=== PATIENT | female | born 1955 | race American Indian/Alaskan Native ===

== ENCOUNTER → 2019-11-28 | Outpatient (CLI) | payer MEDICARE, OTHER ==
--- NOTE | 2019-12-01 09:51 | MM ---
Reason for exam: screening (asymptomatic). Last mammogram was performed 1 year and 3 months ago. History: Patient is postmenopausal and is nulliparous. Physical Findings: A clinical breast exam by your physician is recommended on an annual basis and results should be correlated with mammographic findings. MG 3D Screening Mammo W/Cad Bilateral CC and MLO view(s) were taken. Prior study comparison: September 04, 2018, mammogram. August 17, 2017, mammogram. There are scattered fibroglandular densities. No significant changes when compared with prior studies. ASSESSMENT: Benign, BI-RAD 2 RECOMMENDATION: Routine screening mammogram of both breasts in 1 year.
== END | disposition home or self-care (01) ==
LOC: RADMAMWWP 13:38
PROVIDERS: ATTEND Family Medicine
DX: Z12.31 Encounter for screening mammogram for malignant neoplasm of breast (principal)
CPT/HCPCS: 77063; 77067

== ENCOUNTER → 2020-03-03 | Outpatient (CLI) | payer MEDICARE, OTHER ==
--- NOTE | 2020-03-03 14:41 | BD ---
EXAMINATION TYPE: Axial Bone Density DATE OF EXAM: 03/03/2020 COMPARISON: NONE CLINICAL HISTORY: 64-year-old female postmenopausal screening and symptoms Nuclear Medicine Study in the last 2 weeks: NO Barium Study in the last week: NO : NO Height: 5 FT 2 1/2 IN Weight: 184 FRAX RISK QUESTIONS: Alcohol (3 or more units per day): NO Family History (Parent hip fracture): NO Glucocorticoids (More than 3mos): NO (Ex: prednisone, prednisolone, methylprednisolone, dexamethasone, and hydrocortisone). History of Fracture in Adulthood: NO Secondary Osteoporosis: 1. Type 1 Diabetes: NO 2. Hyperthyroidism: NO 3. Menopause before 45: NO 4. Malnutrition: NO 5. Chronic liver disease: NO Rheumatoid Arthritis: NO Current Tobacco Use: YES RISK FACTORS HISTORY OF: Surgery to Spine/Hip(right/left)/Wrist (right/left): LUMBAR SURG When: 20 YEARS AGO Family History of Osteoporosis: NO Active: NO Diet low in dairy products/other sources of calcium: NO Postmenopausal woman: PART 1993 Lost more than 2 inches in height since high school: YES Poor Health: FAIR MEDICATIONS: Additional Medications: INSULIN, METFORMIN, GABAPENTIN, LOSARTIN, LIPITOR, ZYRTEC, Additional History: EXAM MEASUREMENTS: Bone mineral density about the R hip (g/cm2): 0.905 Bone mineral density about the L hip (g/cm2): 0.905 T Score values are as follows: -----R Neck: -1.0 -----L Neck: -1.0 -----R Total: -1.0 -----L Total: -0.1 BASELINE Bone mineral density about the L Wrist (g/cm2): 0.624 T Score values are as follows: -----Dist. R+U: -1.2 -----Prox. R+U: -0.5 -----Radius total: -0.8 BASELINE IMPRESSION: Normal (Values between +1 and -1 indicate normal bone mass) as measured in the bilateral hips and lef t forearm. However, note that measurements border on osteopenia at the hips. Consider repeating this study in 5 years or sooner if there is some new clinical indication. NOTE: T-SCORE=SD OF THE YOUNG ADULT MEAN.
== END | disposition home or self-care (01) ==
LOC: RADBDWWP 12:35
PROVIDERS: ATTEND Family Medicine
DX: M85.89 Other specified disorders of bone density and structure, multiple sites (principal)
CPT/HCPCS: 77080

== ENCOUNTER 2020-05-09 21:33 | Emergency (ER) | payer MEDICARE, OTHER ==
[2020-05-09 21:48] VITALS: BP 167/77; PULSE 91; RESP 20; TEMP 99.1
[2020-05-09] MEDS ORDERED: MORPHINE SULFATE 4 MG/ML SYRINGE IM STA (22:22)
--- NOTE | 2020-05-09 22:24 | ED ---
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 Patient presents to the emergency department this evening via private vehicle for evaluation of right leg pain. Patient reports she has pain that begins in her buttock and radiates down the right leg. She states it makes it feel like she still has her foot and she is having severe pain. She denies any back pain. Denies any recent falls or injuries. She is primarily wheelchair bound. Patient is on [place] twice daily a nd 800 mg of gabapentin 3 times daily for her chronic pain but reports despite taking the she has persistent pain is been unable to sleep. - Related Data Previous Rx's Medication Instructions Recorded HYDROcodone/APAP 5-325MG [[place] 1 tab PO Q6HR PRN 3 Days #12 tab 05/09/20 5-325] Ibuprofen [Motrin] 600 mg PO Q8H #30 tab 05/09/20 Allergies Allergy/AdvReac Type Severity Reaction Status Date / Time No Known Allergies Allergy Verified 05/09/20 21:48 Review of Systems ROS Statement: Those systems with pertinent positive or pertinent negative responses have been documented in the HPI. ROS Other: All systems not noted in ROS Statement are negative. Past Medical History Past Medical History: Diabetes Mellitus, Hypertension History of Any Multi-Drug Resistant Organisms: None Reported Past Surgical History: Back Surgery, Orthopedic Surgery Additional Past Surgical History / Comment(s): rt below knee amp Past Psychological History: Depression Smoking Status: Current every day smoker Past Alcohol Use History: None Reported Past Drug Use History: None Reported General Exam - General Exam Comments Initial Comments: Physical Exam GENERAL: Patient is well-developed and well-nourished. Patient is nontoxic and well-hydrated and is in no distress. HENT: Normocephalic, Atraumatic. EYES: PERRL, EOMI PULMONARY: Unlabored respirations. CARDIOVASCULAR: RRR Warm and well perfused extremities ABDOMEN: Non-distended SKIN: No rashes or bruising : Deferred NEUROLOGIC: Alert and oriented Normal speech MUSCULOSKELETAL: Well-healed right BKA Tenderness to palpation of the piraformis muscle on the right buttocks PSYCHIATRIC: No SI/HI Limitations: no limitations Course Vital Signs 05/09/20 21:44 Temperature 99.1 F Pulse Rate 91 Respiratory 20 Rate Blood Pressure 167/77 O2 Sat by Pulse 100 Oximetry Medical Decision Making - Medical Decision Making The patient was seen and evaluated, history is obtained from the patient History and physical exam are concerning for piriformis syndrome on the right with reproducible pain to palpation in the right buttocks and sciatic leg pain. Patient is arty on max dose of gabapentin, I will prescribe additional [place] so she can take 4 times daily, recommended anti-inflammatories, due to her poorly controlled diabetes I don't feel she has a candidate for steroids. Recommended follow-up with primary care physician for referral to physical therapy. Disposition Clinical Impression: Sciatica of right side without back pain Disposition: HOME SELF-CARE Condition: Stable Instructions (If sedation given, give patient instructions): Sciatica (ED), Piriformis Syndrome (ED) Prescriptions: Ibuprofen [Motrin] 600 mg PO Q8H #30 tab HYDROcodone/APAP 5-325MG [[place] 5-325] 1 tab PO Q6HR PRN 3 Days #12 tab PRN Reason: Pain Is patient prescribed a controlled substance at d/c from ED?: No Referrals: Yomi Kennedy MD [Primary Care Provider] - 1-2 days
== END 2020-05-09 22:49 | disposition home or self-care (01) ==
LOC: EC 21:33
DX: M54.31 Sciatica, right side (principal); G89.29 Other chronic pain; L02.33 Carbuncle of buttock; E10.65 Type 1 diabetes mellitus with hyperglycemia; F17.200 Nicotine dependence, unspecified, uncomplicated; Z99.3 Dependence on wheelchair; Z89.511 Acquired absence of right leg below knee; Z79.891 Long term (current) use of opiate analgesic
CPT/HCPCS: 99283; 96372; J2270

== ENCOUNTER 2020-06-15 21:50 | Emergency (ER) | payer MEDICARE, OTHER ==
[2020-06-15 21:56] VITALS: TEMP 97.6
[2020-06-15 22:10] LABS: Glucose,Whole Blood 225 mg/dL (75-99)
[2020-06-15 22:33] LABS: Basophils # (A) 0.1 k/uL (0-0.2); Basophils % (A) 1 %; Eosinophils # (A) 0.7 k/uL (0-0.7); Eosinophils % (A) 7 %; HCT 32.7 % (34.0-46.0); Lymphocytes % (A) 19 %; MCH 30.1 pg (25.0-35.0); MCHC 33.6 g/dL (31.0-37.0); MCV 89.5 fL (80.0-100.0); Mean Platelet Volume 6.2; Monocytes # (A) 0.6 k/uL (0-1.0); Monocytes % (A) 6 %; Neutrophils % (A) 67 %; Platelet Count 235 k/uL (150-450); RBC 3.66 m/uL (3.80-5.40); RDW 14.5 % (11.5-15.5); WBC 10.4 k/uL (3.8-10.6)
[2020-06-15 22:41] LABS: Albumin 4.2 g/dL (3.5-5.0); Calcium 8.5 mg/dL (8.4-10.2); Potassium 4.3 mmol/L (3.5-5.1); Total Bilirubin 0.4 mg/dL (0.2-1.3); Total Protein 7.3 g/dL (6.3-8.2)
--- NOTE | 2020-06-15 23:07 | ED ---
General Adult HPI - General Chief complaint: Skin/Abscess/Foreign Body Stated complaint: Weakness,Body Itching Time Seen by Provider: 06/15/20 22:14 Source: patient, family Mode of arrival: wheelchair Limitations: no limitations - History of Present Illness Initial comments: Akosua is a 65-year-old female with a history of diabetes, right above-knee amp utation, patient presents the ER today for evaluation of diffuse pruritus and fatigue. Patient reports that for the past couple weeks she says been itchy everywhere from her scalp down. She denies any new soaps, lotions, shampoos, laundry detergent or fabric softener. She did see her primary care about this and was prescribed Zyrtec with minimal improvement. also expresses concern that the patient's tired all the time reports that she is taking multiple naps throughout the day. Denies any recent illness, fevers chills nausea or vomiting. - Related Data Previous Rx's Medication Instructions Recorded HYDROcodone/APAP 5-325MG [[place] 1 tab PO Q6HR PRN 3 Days #12 tab 05/09/20 5-325] Ibuprofen [Motrin] 600 mg PO Q8H #30 tab 05/09/20 Allergies Allergy/AdvReac Type Severity Reaction Status Date / Time No Known Allergies Allergy Verified 06/15/20 21:57 Review of Systems ROS Statement: Those systems with pertinent positive or pertinent negative responses have been documented in the HPI. ROS Other: All systems not noted in ROS Statement are negative. Past Medical History Past Medical History: Diabetes Mellitus, Hypertension History of Any Multi-Drug Resistant Organisms: None Reported Past Surgical History: Back Surgery, Orthopedic Surgery Additional Past Surgical History / Comment(s): rt below knee amp Past Psychological History: Depression Smoking Status: Current every day smoker Past Alcohol Use History: None Reported Past Drug Use History: None Reported General Exam - General Exam Comments Initial Comments: Physical Exam GENERAL: Patient is well-developed and well-nourished. Patient is nontoxic and well- hydrated and is in no distress. HENT: Normocephalic, Atraumatic. EYES: PERRL, EOMI PULMONARY: Unlabored respirations. No audible rales rhonchi or wheezing was noted. CARDIOVASCULAR: There is a regular rate and rhythm without any murmurs gallops or rubs. ABDOMEN: Soft and nontender with normal bowel sounds. SKIN: Dry skin with excoriations noted on the arms and flanks There is no lesions in the webs of the hands no linear lesions to indicate scabies, no urticaria or hives Itching includes the scalp, doesn't appear to be in the distribution related to her clothing : Deferred NEUROLOGIC: Patient is alert and oriented x3. Moving all extremities spontaneously MUSCULOSKELETAL: Right above-knee amputation Normal extremities with adequate strength and full range of motion. No lower extremity swelling or edema. No calf tenderness. PSYCHIATRIC: Normal psychiatric evaluation. Limitations: no limitations Course Vital Signs 06/15/20 21:53 Temperature 97.6 F Pulse Rate 92 Respiratory 20 Rate Blood Pressure 156/78 O2 Sat by Pulse 97 Oximetry Medical Decision Making - Medical Decision Making The patient was seen and evaluated history is obtained from the patient and at bedside Patient has diffuse dry skin, no signs of scabies, no urticaria or hives Labs were obtained and resulted with significantly elevated TSH, I discussed with the patient and at bedside hypothyroidism can result in dry skin and pruritus, I recommended they follow with Dr. Kennedy first thing tomorrow morning to discuss possible treatment for hypothyroidism. Patient and at bedside are agreeable and understand this plan. - Lab Data Result diagrams: 06/15/20 22:21 06/15/20 22:21 Lab Results 06/15/20 06/15/20 06/15/20 Range/Units 22:07 22:21 22:21 WBC 10.4 (3.8-10.6) k/uL RBC 3.66 L (3.80-5.40) m/uL Hgb 11.0 L (11.4-16.0) gm/dL Hct 32.7 L (34.0-46.0) % MCV 89.5 (80.0-100.0) fL MCH 30.1 (25.0-35.0) pg MCHC 33.6 (31.0-37.0) g/dL RDW 14.5 (11.5-15.5) % Plt Count 235 (150-450) k/uL Neutrophils % 67 % Lymphocytes % 19 % Monocytes % 6 % Eosinophils % 7 % Basophils % 1 % Neutrophils # 7.0 (1.3-7.7) k/uL Lymphocytes # 2.0 (1.0-4.8) k/uL Monocytes # 0.6 (0-1.0) k/uL Eosinophils # 0.7 (0-0.7) k/uL Basophils # 0.1 (0-0.2) k/uL Sodium (137-145) mmol/L Potassium (3.5-5.1) mmol/L Chloride (98-107) mmol/L Carbon Dioxide (22-30) mmol/L Anion Gap mmol/L BUN (7-17) mg/dL Creatinine (0.52-1.04) mg/dL Est GFR (CKD-EPI)AfAm (>60 ml/min/1.73 sqM) Est GFR (CKD-EPI)NonAf (>60 ml/min/1.73 sqM) Glucose (74-99) mg/dL POC Glucose (mg/dL) 225 H (75-99) mg/dL POC Glu Veterinary Poultry Inspector ID Kirstin Santo Calcium (8.4-10.2) mg/dL Total Bilirubin (0.2-1.3) mg/dL AST (14-36) U/L ALT (4-34) U/L Alkaline Phosphatase (38-126) U/L Total Protein (6.3-8.2) g/dL Albumin (3.5-5.0) g/dL TSH (0.465-4.680) mIU/L Urine Color Light Yellow Urine Appearance Clear (Clear) Urine pH 6.5 (5.0-8.0) Ur Specific [place] 1.008 (1.001-1.035) Urine Protein 1+ H (Negative) Urine Glucose (UA) Negative (Negative) Urine Ketones Negative (Negative) Urine Blood Negative (Negative) Urine Nitrite Positive H (Negative) Urine Bilirubin Negative (Negative) Urine Urobilinogen <2.0 (<2.0) mg/dL Ur Leukocyte Esterase Negative (Negative) Urine RBC <1 (0-5) /hpf Urine WBC 1 (0-5) /hpf Ur Squamous Epith Cells <1 (0-4) /hpf Urine Bacteria Rare H (None) /hpf 06/15/20 Range/Units 22:21 WBC (3.8-10.6) k/uL RBC (3.80-5.40) m/uL Hgb (11.4-16.0) gm/dL Hct (34.0-46.0) % MCV (80.0-100.0) fL MCH (25.0-35.0) pg MCHC (31.0-37.0) g/dL RDW (11.5-15.5) % Plt Count (150-450) k/uL Neutrophils % % Lymphocytes % % Monocytes % % Eosinophils % % Basophils % % Neutrophils # (1.3-7.7) k/uL Lymphocytes # (1.0-4.8) k/uL Monocytes # (0-1.0) k/uL Eosinophils # (0-0.7) k/uL Basophils # (0-0.2) k/uL Sodium 131 L (137-145) mmol/L Potassium 4.3 (3.5-5.1) mmol/L Chloride 99 (98-107) mmol/L Carbon Dioxide 23 (22-30) mmol/L Anion Gap 9 mmol/L BUN 11 (7-17) mg/dL Creatinine 0.87 (0.52-1.04) mg/dL Est GFR (CKD-EPI)AfAm 81 (>60 ml/min/1.73 sqM) Est GFR (CKD-EPI)NonAf 70 (>60 ml/min/1.73 sqM) Glucose 205 H (74-99) mg/dL POC Glucose (mg/dL) (75-99) mg/dL POC Glu Veterinary Poultry Inspector ID Calcium 8.5 (8.4-10.2) mg/dL Total Bilirubin 0.4 (0.2-1.3) mg/dL AST 23 (14-36) U/L ALT 18 (4-34) U/L Alkaline Phosphatase 100 (38-126) U/L Total Protein 7.3 (6.3-8.2) g/dL Albumin 4.2 (3.5-5.0) g/dL TSH 14.600 H (0.465-4.680) mIU/L Urine Color Urine Appearance (Clear) Urine pH (5.0-8.0) Ur Specific [place] (1.001-1.035) Urine Protein (Negative) Urine Glucose (UA) (Negative) Urine Ketones (Negative) Urine Blood (Negative) Urine Nitrite (Negative) Urine Bilirubin (Negative) Urine Urobilinogen (<2.0) mg/dL Ur Leukocyte Esterase (Negative) Urine RBC (0-5) /hpf Urine WBC (0-5) /hpf Ur Squamous Epith Cells (0-4) /hpf Urine Bacteria (None) /hpf Disposition Clinical Impression: Hypothyroidism Disposition: HOME SELF-CARE Condition: Stable Additional Instructions: As we discussed her labs today indicate that your thyroid hormone is low. He needs to follow with your primary care doctor about been prescribed a thyroid hormone such as Synthroid. Low thyroid can contribute to being tired and having dry skin. I recommend you are your dry skin with lotion such as Eucerin or Aquaphor. Return to the ER if he have any new or concerning symptoms Is patient prescribed a controlled substance at d/c from ED?: No Referrals: Yomi Kennedy MD [Primary Care Provider] - 1-2 days
[2020-06-15 23:24] LABS: Appearance,Urine Clear (Clear); Bacteria,Urine Rare /hpf; Bilirubin,Urine Negative (Negative); Blood,Urine Negative (Negative); Color,Urine Light Yellow; Glucose,Urine (UA) Negative (Negative); Ketones,Urine Negative (Negative); Leukocyte Esterase,Urine Negative (Negative); Nitrite,Urine Positive (Negative); PH, Urine 6.5 (5.0-8.0); Protein,Urine 1+ (Negative); RBC,Urine <1 /hpf (0-5); Specific Gravity,Urine 1.008 (1.001-1.035); Squamous Epithelial Cell,Urine <1 /hpf (0-4); Urobilinogen,Urine <2.0 mg/dL (<2.0); WBC,Urine 1 /hpf (0-5)
[2020-06-16 00:10] VITALS: BP 190/73; PULSE 68; RESP 18
[2020-06-16 00:34] LABS: T4, Free (Free Thyroxine) 1.09 ng/dL (0.78-2.19)
== END 2020-06-16 00:10 | disposition home or self-care (01) ==
LOC: EC 21:50
DX: E03.9 Hypothyroidism, unspecified (principal); L29.9 Pruritus, unspecified; F17.200 Nicotine dependence, unspecified, uncomplicated; Z89.611 Acquired absence of right leg above knee
CPT/HCPCS: 36415; 80053; 81001; 84439; 84443; 85025; 99284

== ENCOUNTER 2020-08-17 14:39 | Emergency (ER) | payer MEDICARE, OTHER ==
[2020-08-17 14:55] VITALS: RESP 18
[2020-08-17] MEDS ORDERED: cefTRIAXone IN SWFI 1,000 MG/10 ML SYRINGE IVP STA (15:52)
--- NOTE | 2020-08-17 16:08 | ED ---
General Adult HPI - General Chief complaint: Extremity Problem,Nontraumatic Stated complaint: L Toe Infection Time Seen by Provider: 08/17/20 15:34 Source: patient, RN notes reviewed, old records reviewed Mode of arrival: wheelchair Limitations: no limitations - History of Present Illness Initial comments: 65-year-old female history of diabetes, right BKA presenting for evaluation of wound to the second toe left foot. Patient was sent in by her rn cvor Dr. Garcia for evaluation. She denies fever. She states there was some swelling that this has resolved. No surrounding redness. There is an open wound on the dorsal surface of the second toe on the left foot. No fever or constitutional symptoms. Patient not currently on any antibiotics. - Related Data Previous Rx's Medication Instructions Recorded HYDROcodone/APAP 5-325MG [[place] 1 tab PO Q6HR PRN 3 Days #12 tab 05/09/20 5-325] Ibuprofen [Motrin] 600 mg PO Q8H #30 tab 05/09/20 Cephalexin [Keflex] 500 mg PO Q6HR 14 Days #56 cap 08/17/20 Sulfamethox-Tmp 800-160Mg [Bactrim 1 tab PO Q12HR #28 tab 08/17/20 DS 800-160 mg] Allergies Allergy/AdvReac Type Severity Reaction Status Date / Time No Known Allergies Allergy Verified 08/17/20 14:55 Review of Systems ROS Statement: Those systems with pertinent positive or pertinent negative responses have been documented in the HPI. ROS Other: All systems not noted in ROS Statement are negative. Past Medical History Past Medical History: Diabetes Mellitus, Hypertension History of Any Multi-Drug Resistant Organisms: None Reported Past Surgical History: Back Surgery, Orthopedic Surgery Additional Past Surgical History / Comment(s): rt below knee amp Past Psychological History: Depression Smoking Status: Current every day smoker Past Alcohol Use History: None Reported Past Drug Use History: None Reported General Exam Limitations: no limitations General appearance: alert, in no apparent distress Head exam: Present: atraumatic, normocephalic Eye exam: Present: normal appearance, PERRL ENT exam: Present: normal exam Neck exam: Present: normal inspection. Absent: tenderness, meningismus Respiratory exam: Present: normal lung sounds bilaterally. Absent: respiratory distress, wheezes Cardiovascular Exam: Present: regular rate, normal rhythm GI/Abdominal exam: Present: soft. Absent: distended, tenderness Extremities exam: Present: other (Right BKA, left lower extremity, distal pulses intact, 2+ dorsalis pedis. She has a wound to the dorsal surface of the second toe left foot. There is no surrounding erythema. No soft tissue swelling. No fluctuance or induration.) Course Vital Signs 08/17/20 14:51 Temperature 98.6 F Pulse Rate 94 Respiratory 18 Rate Blood Pressure 142/80 O2 Sat by Pulse 99 Oximetry Medical Decision Making - Medical Decision Making 65-year-old female with a diabetic foot wound, left foot. The left toe has an area of dry gangrene with no surrounding erythema, no cellulitis, no induration or fluctuance. She has distal pulses intact. She is afebrile and well- appearing. She has an x-ray which is negative for osteomyelitis or acute f indings. White blood cell count 10.8, normal lactic, negative CRP. I discussed case with Dr. Kennedy who is her primary care physician, will initiate oral antibiotics and he will arrange for wound care as an outpatient. - Lab Data Result diagrams: 08/17/20 16:54 08/17/20 16:54 Lab Results 08/17/20 08/17/20 08/17/20 Range/Units 16:54 16:54 16:54 WBC 10.8 H (3.8-10.6) k/uL RBC 4.24 (3.80-5.40) m/uL Hgb 12.5 (11.4-16.0) gm/dL Hct 37.4 (34.0-46.0) % MCV 88.2 (80.0-100.0) fL MCH 29.6 (25.0-35.0) pg MCHC 33.6 (31.0-37.0) g/dL RDW 14.2 (11.5-15.5) % Plt Count 244 (150-450) k/uL MPV 5.9 Neutrophils % 73 % Lymphocytes % 13 % Monocytes % 4 % Eosinophils % 9 % Basophils % 1 % Neutrophils # 7.9 H (1.3-7.7) k/uL Lymphocytes # 1.4 (1.0-4.8) k/uL Monocytes # 0.4 (0-1.0) k/uL Eosinophils # 1.0 H (0-0.7) k/uL Basophils # 0.1 (0-0.2) k/uL Sodium 129 L (137-145) mmol/L Potassium 4.0 (3.5-5.1) mmol/L Chloride 99 (98-107) mmol/L Carbon Dioxide 19 L (22-30) mmol/L Anion Gap 11 mmol/L BUN 15 (7-17) mg/dL Creatinine 0.85 (0.52-1.04) mg/dL Est GFR (CKD-EPI)AfAm 84 (>60 ml/min/1.73 sqM) Est GFR (CKD-EPI)NonAf 72 (>60 ml/min/1.73 sqM) Glucose 161 H (74-99) mg/dL Plasma Lactic Acid [place]if 1.9 (0.7-2.0) mmol/L Calcium 9.2 (8.4-10.2) mg/dL C-Reactive Protein 11.8 H (<10.0) mg/L Disposition Clinical Impression: Diabetic foot infection Disposition: HOME SELF-CARE Condition: Good Instructions (If sedation given, give patient instructions): Diabetic Foot Ulcers (ED) Prescriptions: Sulfamethox-Tmp 800-160Mg [Bactrim DS 800-160 mg] 1 tab PO Q12HR #28 tab Cephalexin [Keflex] 500 mg PO Q6HR 14 Days #56 cap Is patient prescribed a controlled substance at d/c from ED?: No Referrals: Yomi Kennedy MD [Primary Care Provider] - 1-2 days Time of Disposition: 17:26
--- NOTE | 2020-08-17 16:58 | XR ---
EXAMINATION TYPE: XR toes LT DATE OF EXAM: 08/17/2020 COMPARISON: NONE HISTORY: Toe infection TECHNIQUE: 3 views FINDINGS: I see no fracture nor dislocation. Second toe appears intact. There is no evidence of focal bone destruction. IMPRESSION: No fracture. No sign of osteomyelitis of the second toe.
[2020-08-17 17:06] LABS: Basophils # (A) 0.1 k/uL (0-0.2); Basophils % (A) 1 %; Eosinophils % (A) 9 %; HCT 37.4 % (34.0-46.0); HGB 12.5 gm/dL (11.4-16.0); Lymphocytes # (A) 1.4 k/uL (1.0-4.8); Lymphocytes % (A) 13 %; MCH 29.6 pg (25.0-35.0); MCHC 33.6 g/dL (31.0-37.0); MCV 88.2 fL (80.0-100.0); Mean Platelet Volume 5.9; Monocytes # (A) 0.4 k/uL (0-1.0); Monocytes % (A) 4 %; Neutrophils # (A) 7.9 k/uL (1.3-7.7); Neutrophils % (A) 73 %; Platelet Count 244 k/uL (150-450); RBC 4.24 m/uL (3.80-5.40); RDW 14.2 % (11.5-15.5); WBC 10.8 k/uL (3.8-10.6)
[2020-08-17 17:18] LABS: C Reactive Protein 11.8 mg/L (<10.0); Calcium 9.2 mg/dL (8.4-10.2)
[2020-08-17 17:54] VITALS: BP 140/71; PULSE 75; TEMP 98.3
== END 2020-08-17 17:53 | disposition home or self-care (01) ==
LOC: EC 14:39
DX: E11.52 Type 2 diabetes mellitus with diabetic peripheral angiopathy with gangrene (principal); I96 Gangrene, not elsewhere classified; F17.200 Nicotine dependence, unspecified, uncomplicated; Z89.511 Acquired absence of right leg below knee
CPT/HCPCS: 99284; 96374; 36415; 80048; 83605; 85025; 86140; 87040; 73660; J0696

== ENCOUNTER 2020-08-25 18:08 | Inpatient (IN) | payer MEDICARE, OTHER ==
--- NOTE | 2020-08-25 18:27 | ED ---
General Adult HPI - General Chief complaint: Skin/Abscess/Foreign Body Stated complaint: Left foot issue Time Seen by Provider: 08/25/20 18:10 Source: patient Mode of arrival: wheelchair Limitations: no limitations - History of Present Illness Initial comments: Patient is a 65 year old female past history of diabetes who presents emergency department with worsening diabetic infection to her left foot. Patient has previous amputation on the right due to diabetic foot infection. States she's been currently treated for the infection in her left foot by Dr. Rajan. She was seen in the emergency department on the first and placed on antibiotics. S tat she's been taking Bactrim and Keflex as directed however the infection continues to spread. He was originally involving her second toe and has now spread to the dorsum of her foot. She does have a follow-up appointment on Sunday with Dr. Rajan to have the toe amputated. Because she was not getting any better she came into the emergency for evaluation. She denies any fevers or chills. No pain in the digit as she has neuropathy. No nausea or vomiting. Denies any alleviating, precipitating or modifying factors - Related Data Home Medications Medication Instructions Recorded Confirmed Albuterol Sulfate [Proair Hfa] 2 puff INHALATION RT-Q4H PRN 08/17/20 08/25/20 Atorvastatin [Lipitor] 10 mg PO DAILY 08/17/20 08/25/20 Cetirizine HCl 10 mg PO DAILY 08/17/20 08/25/20 Cyclobenzaprine [Flexeril] 10 mg PO BID 08/17/20 08/25/20 Docusate [Colace] 100 mg PO BID 08/17/20 08/25/20 Fluticasone/Salmeterol [Advair 1 puff INHALATION RT-BID 08/17/20 08/25/20 250-50 Diskus] Gabapentin 800 mg PO TID 08/17/20 08/25/20 HYDROcodone/APAP 5-325MG [[place] 1 tab PO TID PRN 08/17/20 08/25/20 5-325] Ibuprofen [Motrin] 600 mg PO TID PRN 08/17/20 08/25/20 Insulin Glargine,Hum.rec.anlog 45 unit SQ HS 08/17/20 08/25/20 [Lantus Solostar] Insulin Glargine,Hum.rec.anlog 50 unit SQ DAILY 08/17/20 08/25/20 [Lantus Solostar] Levothyroxine Sodium 88 mcg PO DAILY 08/17/20 08/25/20 Losartan [Cozaar] 50 mg PO DAILY 08/17/20 08/25/20 Multivit with Calcium,Iron,Min 1 tab PO DAILY 08/17/20 08/25/20 [Women's Multivitamin] Oxybutynin Chloride [Oxybutynin 10 mg PO DAILY 08/17/20 08/25/20 Chloride ER] QUEtiapine [SEROquel] 400 mg PO HS 08/17/20 08/25/20 Topiramate 50 mg PO BID 08/17/20 08/25/20 Triamcinolone 0.1% Cream [Kenalog 1 applic TOPICAL BID 08/17/20 08/25/20 0.1% Cream] metFORMIN HCL [Glucophage] 1,000 mg PO BID 08/17/20 08/25/20 FLUoxetine HCL [PROzac] 20 mg PO DAILY 08/25/20 08/25/20 Previous Rx's Medication Instructions Recorded Cephalexin [Keflex] 500 mg PO Q6HR 14 Days #56 cap 08/17/20 Sulfamethox-Tmp 800-160Mg [Bactrim 1 tab PO Q12HR #28 tab 08/17/20 DS 800-160 mg] Allergies Allergy/AdvReac Type Severity Reaction Status Date / Time No Known Allergies Allergy Verified 08/25/20 19:01 Review of Systems ROS Statement: Those systems with pertinent positive or pertinent negative responses have been documented in the HPI. ROS Other: All systems not noted in ROS Statement are negative. Past Medical History Past Medical History: Diabetes Mellitus, Hypertension History of Any Multi-Drug Resistant Organisms: None Reported Past Surgical History: Back Surgery, Orthopedic Surgery Additional Past Surgical History / Comment(s): rt below knee amp Past Psychological History: Depression Smoking Status: Former smoker Past Alcohol Use History: Occasional Past Drug Use History: None Reported General Exam Limitations: no limitations General appearance: alert, in no apparent distress Extremities exam: Present: other (aka right lower extremity. Left lower extremity demonstrats redness, ulceration to the dorsal of toes 2-5. No active drainage) Neurological exam: Present: alert, oriented X3, CN II-XII intact Course Vital Signs 08/25/20 08/25/20 08/25/20 18:11 21:00 21:26 Temperature 98.8 F 98.8 F Pulse Rate 60 79 79 Respiratory 18 18 18 Rate Blood Pressure 167/70 143/64 143/64 O2 Sat by Pulse 94 L 99 99 Oximetry Medical Decision Making - Medical Decision Making Upon arrival patient is placed into room 11. A thorough history and physical exam was performed. Laboratory studies were conducted. Patient was given a dose of Unasyn and vancomycin. X-ray is performed which does demonstrate a retained foreign body which was seen previously on x-ray. No specific signs after myelitis. As the patient is failing outpatient treatment I did recommend hospitalization for patient did agree to. Case discussed with Dr. Kennedy who accepted admission for the patient. She is currently awaiting a bed on the floor - Lab Data Result diagrams: 08/30/20 04:48 08/30/20 04:48 Lab Results 08/25/20 08/25/20 08/25/20 Range/Units 19:25 19:25 19:25 WBC 11.2 H (3.8-10.6) k/uL RBC 3.86 (3.80-5.40) m/uL Hgb 11.8 (11.4-16.0) gm/dL Hct 33.3 L (34.0-46.0) % MCV 86.3 (80.0-100.0) fL MCH 30.7 (25.0-35.0) pg MCHC 35.5 (31.0-37.0) g/dL RDW 13.5 (11.5-15.5) % Plt Count 247 (150-450) k/uL MPV 5.9 Neutrophils % 62 % Lymphocytes % 20 % Monocytes % 4 % Eosinophils % 11 % Basophils % 1 % Neutrophils # 7.0 (1.3-7.7) k/uL Lymphocytes # 2.2 (1.0-4.8) k/uL Monocytes # 0.5 (0-1.0) k/uL Eosinophils # 1.2 H (0-0.7) k/uL Basophils # 0.1 (0-0.2) k/uL ESR 40 H (0-20) mm/hr Sodium 129 L (137-145) mmol/L Potassium 4.4 (3.5-5.1) mmol/L Chloride 99 (98-107) mmol/L Carbon Dioxide 20 L (22-30) mmol/L Anion Gap 10 mmol/L BUN 15 (7-17) mg/dL Creatinine 1.06 H (0.52-1.04) mg/dL Est GFR (CKD-EPI)AfAm 64 (>60 ml/min/1.73 sqM) Est GFR (CKD-EPI)NonAf 55 (>60 ml/min/1.73 sqM) Glucose 84 (74-99) mg/dL Plasma Lactic Acid Kashif 1.5 (0.7-2.0) mmol/L Calcium 9.0 (8.4-10.2) mg/dL Total Bilirubin 0.3 (0.2-1.3) mg/dL AST 20 (14-36) U/L ALT 17 (4-34) U/L Alkaline Phosphatase 77 (38-126) U/L C-Reactive Protein 5.5 (<10.0) mg/L Total Protein 7.6 (6.3-8.2) g/dL Albumin 4.2 (3.5-5.0) g/dL Disposition Clinical Impression: Diabetic foot infection Disposition: ADMITTED IP TO THIS [facility] Condition: Stable Is patient prescribed a controlled substance at d/c from ED?: No Decision to Admit Reason: Admit from EC Decision Date: 08/25/20 Decision Time: 20:06
[2020-08-25] MEDS ORDERED: SODIUM CHLORIDE 0.9% 500 ML 500 ML IV ONE (19:00)
[2020-08-25] MEDS ORDERED: VANCOMYCIN IV PER PHARMACY 1 EACH MISC MISCELLANE PRN (19:00)
[2020-08-25] MEDS ORDERED: AMPICILLIN-SULBACTAM 3 GM in SODIUM CHLORIDE 0.9% 100 ML IVPB STA (19:00)
[2020-08-25] MEDS ORDERED: VANCOMYCIN 1,500 MG in SODIUM CHLORIDE 0.9% 250 ML IVPB STA (19:05)
[2020-08-25 19:41] LABS: Basophils # (A) 0.1 k/uL (0-0.2); Basophils % (A) 1 %; Eosinophils # (A) 1.2 k/uL (0-0.7); Eosinophils % (A) 11 %; HCT 33.3 % (34.0-46.0); HGB 11.8 gm/dL (11.4-16.0); Lymphocytes # (A) 2.2 k/uL (1.0-4.8); Lymphocytes % (A) 20 %; MCH 30.7 pg (25.0-35.0); MCHC 35.5 g/dL (31.0-37.0); MCV 86.3 fL (80.0-100.0); Mean Platelet Volume 5.9; Monocytes # (A) 0.5 k/uL (0-1.0); Monocytes % (A) 4 %; Neutrophils % (A) 62 %; Platelet Count 247 k/uL (150-450); RBC 3.86 m/uL (3.80-5.40); RDW 13.5 % (11.5-15.5); WBC 11.2 k/uL (3.8-10.6)
--- NOTE | 2020-08-25 19:41 | XR ---
EXAMINATION TYPE: XR foot complete LT DATE OF EXAM: 08/25/2020 COMPARISON: NONE HISTORY: Nonhealing wound on the dorsum of the foot TECHNIQUE: 3 views FINDINGS: There is mild pes planus. There is large plantar calcaneal spur. There is extensive spurrin g at the second third and fourth and fifth tarsometatarsal joints. There is extensive spurring at the navicular cuneiform joint. There is vascular calcification. I see no acute fracture. There is no foc al bone destruction. 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 No s pecific sign of osteomyelitis. There is noted a small 6 mm broken needle or wire foreign body in the soft tissues at the plantar asp ect of the mid shaft of the first metatarsal.
[2020-08-25 19:52] LABS: Albumin 4.2 g/dL (3.5-5.0); C Reactive Protein 5.5 mg/L (<10.0); Potassium 4.4 mmol/L (3.5-5.1); Total Bilirubin 0.3 mg/dL (0.2-1.3); Total Protein 7.6 g/dL (6.3-8.2)
[2020-08-25] MEDS ORDERED: NALOXONE 0.4 MG/ML 1 ML VIAL IV PRN (20:06)
[2020-08-25 20:51] LABS: Erythrocyte Sedimentation Rate 40 mm/hr (0-20)
[2020-08-25 21:46] LABS: Glucose,Whole Blood 182 mg/dL (75-99)
[2020-08-26 07:19] LABS: Glucose,Whole Blood 144 mg/dL (75-99)
[2020-08-26] MEDS ORDERED: ALBUTEROL HFA INHALER INHALATION PRN (07:43)
[2020-08-26] MEDS ORDERED: IBUPROFEN 600 MG TAB PO PRN (07:43)
--- NOTE | 2020-08-26 08:43 | P.HPIM ---
History of Present Illness H&P Date: 08/26/20 Chief Complaint: Cellulitis of the right foot. This is a history and physical on a 65-year-old black female who has an underlying history of previous amputation and left dorsal toe cellulitis of the left foot. It has been a struggle for her to contain this and lately it's b ecoming worse. There is various levels of sloughing of tissue and possible necrosis. The patient states that she is starting have some pain. No fever or chills stated. She's been on appropriate outpatient antibiotic but has failed treatment. We have not consulted vascular surgery for possible debridement and wound control. Review of Systems Constitutional: Denies chills, Denies fever Eyes: denies blurred vision, denies pain Gastrointestinal: Denies abdominal pain, Denies diarrhea, Denies nausea, Denies vomiting Genitourinary: Denies dysuria, Denies hematuria Integumentary: Reports as per HPI Past Medical History Past Medical History: Diabetes Mellitus, Hypertension History of Any Multi-Drug Resistant Organisms: None Reported Past Surgical History: Back Surgery, Orthopedic Surgery Additional Past Surgical History / Comment(s): rt below knee amp Past Anesthesia/Blood Transfusion Reactions: No Reported Reaction Past Psychological History: Anxiety, Depression Smoking Status: Former smoker Past Alcohol Use History: Occasional Past Drug Use History: None Reported Medications and Allergies Home Medications Medication Instructions Recorded Confirmed Type Albuterol Sulfate [Proair Hfa] 2 puff INHALATION RT-Q4H PRN 08/17/20 08/25/20 History Atorvastatin [Lipitor] 10 mg PO DAILY 08/17/20 08/25/20 History Cephalexin [Keflex] 500 mg PO Q6HR 14 Days #56 cap 08/17/20 08/25/20 Rx Cetirizine HCl 10 mg PO DAILY 08/17/20 08/25/20 History Cyclobenzaprine [Flexeril] 10 mg PO BID 08/17/20 08/25/20 History Docusate [Colace] 100 mg PO BID 08/17/20 08/25/20 History Fluticasone/Salmeterol [Advair 1 puff INHALATION RT-BID 08/17/20 08/25/20 History 250-50 Diskus] Gabapentin 800 mg PO TID 08/17/20 08/25/20 History HYDROcodone/APAP 5-325MG [[place] 1 tab PO TID PRN 08/17/20 08/25/20 History 5-325] Ibuprofen [Motrin] 600 mg PO TID PRN 08/17/20 08/25/20 History Insulin Glargine,Hum.rec.anlog 45 unit SQ HS 08/17/20 08/25/20 History [Lantus Solostar] Insulin Glargine,Hum.rec.anlog 50 unit SQ DAILY 08/17/20 08/25/20 History [Lantus Solostar] Levothyroxine Sodium 88 mcg PO DAILY 08/17/20 08/25/20 History Losartan [Cozaar] 50 mg PO DAILY 08/17/20 08/25/20 History Multivit with Calcium,Iron,Min 1 tab PO DAILY 08/17/20 08/25/20 History [Women's Multivitamin] Oxybutynin Chloride [Oxybutynin 10 mg PO DAILY 08/17/20 08/25/20 History Chloride ER] QUEtiapine [SEROquel] 400 mg PO HS 08/17/20 08/25/20 History Sulfamethox-Tmp 800-160Mg [Bactrim 1 tab PO Q12HR #28 tab 08/17/20 08/25/20 Rx DS 800-160 mg] Topiramate 50 mg PO BID 08/17/20 08/25/20 History Triamcinolone 0.1% Cream [Kenalog 1 applic TOPICAL BID 08/17/20 08/25/20 History 0.1% Cream] metFORMIN HCL [Glucophage] 1,000 mg PO BID 08/17/20 08/25/20 History FLUoxetine HCL [PROzac] 20 mg PO DAILY 08/25/20 08/25/20 History Allergies Allergy/AdvReac Type Severity Reaction Status Date / Time No Known Allergies Allergy Verified 08/25/20 19:01 Physical Exam Vitals: Vital Signs Temp Pulse Pulse Pulse Resp BP BP 08/26/20 08:00 97.5 F L 74 20 137/67 08/26/20 02:16 97.9 F 76 17 132/74 08/25/20 22:18 96 16 08/25/20 21:51 96.9 F L 96 16 137/62 08/25/20 21:50 96.9 F L 96 16 137/62 08/25/20 21:26 98.8 F 79 18 143/64 08/25/20 21:00 79 18 143/64 08/25/20 18:11 98.8 F 60 18 167/70 Pulse Ox 08/26/20 08:00 99 08/26/20 02:16 97 08/25/20 22:18 08/25/20 21:51 97 08/25/20 21:50 97 08/25/20 21:26 99 08/25/20 21:00 99 08/25/20 18:11 94 L Intake and Output 08/25/20 08/26/20 08/26/20 22:59 06:59 14:59 Other: Voiding Method Toilet Weight 90.718 kg - Constitutional General appearance: no acute distress - EENT Eyes: EOMI - Gastrointestinal General gastrointestinal: no organomegaly, soft, no tenderness - Integumentary Right middle digit has significant erythema with sloughing Integumentary: cellulitis - Musculoskeletal Amputation of the right below the knee. - Psychiatric Psychiatric: A&O x's 3 Results CBC & Chem 7: 08/25/20 19:25 08/25/20 19:25 Labs: Abnormal Lab Results - Last 24 Hours (Table) 08/25/20 08/25/20 08/25/20 Range/Units 19:25 19:25 21:37 WBC 11.2 H (3.8-10.6) k/uL Hct 33.3 L (34.0-46.0) % Eosinophils # 1.2 H (0-0.7) k/uL ESR 40 H (0-20) mm/hr Sodium 129 L (137-145) mmol/L Carbon Dioxide 20 L (22-30) mmol/L Creatinine 1.06 H (0.52-1.04) mg/dL POC Glucose (mg/dL) 182 H (75-99) mg/dL 08/26/20 Range/Units 07:15 WBC (3.8-10.6) k/uL Hct (34.0-46.0) % Eosinophils # (0-0.7) k/uL ESR (0-20) mm/hr Sodium (137-145) mmol/L Carbon Dioxide (22-30) mmol/L Creatinine (0.52-1.04) mg/dL POC Glucose (mg/dL) 144 H (75-99) mg/dL Thrombosis Risk Factor Assmnt - Choose All That Apply Any of the Below Risk Factors Present?: No Other Risk Factors: No Other congenital or acquired thrombophilia - If yes, enter type in comment: No Thrombosis Risk Factor Assessment Level: Very Low Risk Assessment and Plan (1) History of below-knee amputation of right lower extremity Current Visit: Yes Status: Acute Code(s): Z89.511 - ACQUIRED ABSENCE OF RIGHT LEG BELOW KNEE SNOMED Code(s): 075079420606822 (2) Diabetic foot infection Current Visit: Yes Status: Acute Code(s): E11.628 - TYPE 2 DIABETES MELLITUS WITH OTHER SKIN COMPLICATIONS; L08.9 - LOCAL INFECTION OF THE SKIN AND SUBCUTANEOUS TISSUE, UNSP SNOMED Code(s): 539161775 (3) Cellulitis of toe of left foot Current Visit: Yes Status: Acute Code(s): L03.032 - CELLULITIS OF LEFT TOE SNOMED Code(s): 70160783 Plan: Empiric antibiotic treatment. Reconcile medications. She most likely will need debridement versus infectious disease consult. Prognosis is guarded secondary to her previous comorbidities. See orders otherwise.
[2020-08-26] MEDS: CYCLOBENZAPRINE 10 MG TAB PO SCH ×2 (08:59→20:47)
[2020-08-26] MEDS: ATORVASTATIN 10 MG TAB PO SCH (08:59)
[2020-08-26] MEDS: DOCUSATE 100 MG CAP PO SCH ×2 (08:59→20:47)
[2020-08-26] MEDS: LEVOTHYROXINE 88 MCG TAB PO SCH (09:00)
[2020-08-26] MEDS: FLUoxetine HCL 20 MG CAP PO SCH (09:00)
[2020-08-26] MEDS: GABAPENTIN 400 MG CAP PO SCH ×3 (09:00→20:47)
[2020-08-26] MEDS: metFORMIN 500 MG TAB PO SCH ×2 (09:01→20:47)
[2020-08-26] MEDS: TOPIRAMATE 25 MG TAB PO SCH ×2 (09:01→20:48)
[2020-08-26] MEDS: LORATADINE 10 MG TAB PO SCH (09:01)
[2020-08-26] MEDS: LOSARTAN 50 MG TAB PO SCH (09:01)
[2020-08-26] MEDS: MULTIVITAMINS, THERA 1 EACH TAB PO SCH (09:01)
[2020-08-26] MEDS: OXYBUTYNIN 10 MG TAB.ER.24 PO SCH (09:01)
[2020-08-26] MEDS: INSULIN DETEMIR (LEVEMIR) 100 UNIT/ML SYR SQ SCH ×2 (09:02→20:48)
[2020-08-26] MEDS: TRIAMCINOLONE 0.1% CREAM 80 GM TUBE TOPICAL SCH (09:02)
[2020-08-26] MEDS: HYDROcodone/APAP 5-325MG 1 EACH TAB PO PRN ×2 (09:28→16:57)
[2020-08-26 10:02] LABS: Non-African American GFR(CKD) 52.6 (60.0-200.0)
[2020-08-26 11:19] LABS: Glucose,Whole Blood 164 mg/dL (75-99)
[2020-08-26 13:05] VITALS: BMI 36.6
--- NOTE | 2020-08-26 13:12 | P.GSCN ---
History of Present Illness History of present illness: 65 old white female, history of diabetes on insulin, patient came to the office dated 08/23/2024 left foot second toe infection. Patient has a hammertoe ring on his shoe and she developed some infection and skin necrosis on the dorsal aspect of the left foot second toe. At that time patient was on antibiotic and she was scheduled to have a left to foot second toe ray amputation. On exa mination today the left foot second toe has some skin necrosis on the dorsal suspect the foot but plantar suspect the foot skin is normal and no sign of infection noted and she is responding well to the antibiotic. X-ray of the foot shows there is a 6 mm broke broken needle wire foreign bodies seen in the soft tissue on the plantar aspect of the midshaft of the first metatarsal. The left foot plantar aspect there is no localized tenderness or redness noted this could be-year-old foreign body. On exam on examination neck is supple no bruit appreciated chest is clear auscultation Femorals are 1+ bilateral PTDP by the Doppler right BK amputation stump is healing Plan is we will hold the amputation we will continue with IV antibiotic she is responding well I will keep the toe dry and we will follow with you very closely if she developed any sign of infection we'll proceed for surgery discussed with the patient she agreed Past Medical History Past Medical History: Diabetes Mellitus, Hypertension History of Any Multi-Drug Resistant Organisms: None Reported Past Surgical History: Back Surgery, Orthopedic Surgery Additional Past Surgical History / Comment(s): rt below knee amp Past Anesthesia/Blood Transfusion Reactions: No Reported Reaction Past Psychological History: Anxiety, Depression Smoking Status: Former smoker Past Alcohol Use History: Occasional Past Drug Use History: None Reported Medications and Allergies Home Medications Medication Instructions Recorded Confirmed Type Albuterol Sulfate [Proair Hfa] 2 puff INHALATION RT-Q4H PRN 08/17/20 08/25/20 History Atorvastatin [Lipitor] 10 mg PO DAILY 08/17/20 08/25/20 History Cephalexin [Keflex] 500 mg PO Q6HR 14 Days #56 cap 08/17/20 08/25/20 Rx Cetirizine HCl 10 mg PO DAILY 08/17/20 08/25/20 History Cyclobenzaprine [Flexeril] 10 mg PO BID 08/17/20 08/25/20 History Docusate [Colace] 100 mg PO BID 08/17/20 08/25/20 History Fluticasone/Salmeterol [Advair 1 puff INHALATION RT-BID 08/17/20 08/25/20 History 250-50 Diskus] Gabapentin 800 mg PO TID 08/17/20 08/25/20 History HYDROcodone/APAP 5-325MG [[place] 1 tab PO TID PRN 08/17/20 08/25/20 History 5-325] Ibuprofen [Motrin] 600 mg PO TID PRN 08/17/20 08/25/20 History Insulin Glargine,Hum.rec.anlog 45 unit SQ HS 08/17/20 08/25/20 History [Lantus Solostar] Insulin Glargine,Hum.rec.anlog 50 unit SQ DAILY 08/17/20 08/25/20 History [Lantus Solostar] Levothyroxine Sodium 88 mcg PO DAILY 08/17/20 08/25/20 History Losartan [Cozaar] 50 mg PO DAILY 08/17/20 08/25/20 History Multivit with Calcium,Iron,Min 1 tab PO DAILY 08/17/20 08/25/20 History [Women's Multivitamin] Oxybutynin Chloride [Oxybutynin 10 mg PO DAILY 08/17/20 08/25/20 History Chloride ER] QUEtiapine [SEROquel] 400 mg PO HS 08/17/20 08/25/20 History Sulfamethox-Tmp 800-160Mg [Bactrim 1 tab PO Q12HR #28 tab 08/17/20 08/25/20 Rx DS 800-160 mg] Topiramate 50 mg PO BID 08/17/20 08/25/20 History Triamcinolone 0.1% Cream [Kenalog 1 applic TOPICAL BID 08/17/20 08/25/20 History 0.1% Cream] metFORMIN HCL [Glucophage] 1,000 mg PO BID 08/17/20 08/25/20 History FLUoxetine HCL [PROzac] 20 mg PO DAILY 08/25/20 08/25/20 History Allergies Allergy/AdvReac Type Severity Reaction Status Date / Time No Known Allergies Allergy Verified 08/25/20 19:01 Surgical - Exam Vital Signs Temp Pulse Resp BP Pulse Ox 98.8 F 60 18 167/70 94 L 08/25/20 18:11 08/25/20 18:11 08/25/20 18:11 08/25/20 18:11 08/25/20 18:11 Results - Labs 08/25/20 19:25 08/26/20 05:40 Abnormal Lab Results - Last 24 Hours (Table) 08/25/20 08/25/20 08/25/20 Range/Units 19:25 19:25 21:37 WBC 11.2 H (3.8-10.6) k/uL Hct 33.3 L (34.0-46.0) % Eosinophils # 1.2 H (0-0.7) k/uL ESR 40 H (0-20) mm/hr Sodium 129 L (137-145) mmol/L Carbon Dioxide 20 L (22-30) mmol/L Creatinine 1.06 H (0.52-1.04) mg/dL Est GFR (CKD-EPI)NonAf (60.0-200.0) POC Glucose (mg/dL) 182 H (75-99) mg/dL 08/26/20 08/26/20 08/26/20 Range/Units 05:40 07:15 11:16 WBC (3.8-10.6) k/uL Hct (34.0-46.0) % Eosinophils # (0-0.7) k/uL ESR (0-20) mm/hr Sodium (137-145) mmol/L Carbon Dioxide (22-30) mmol/L Creatinine (0.52-1.04) mg/dL Est GFR (CKD-EPI)NonAf 52.6 L (60.0-200.0) POC Glucose (mg/dL) 144 H 164 H (75-99) mg/dL Diabetes panel 08/25/20 08/26/20 Range/Units 19:25 05:40 Sodium 129 L (137-145) mmol/L Potassium 4.4 (3.5-5.1) mmol/L Chloride 99 (98-107) mmol/L Carbon Dioxide 20 L (22-30) mmol/L BUN 15 (7-17) mg/dL Creatinine 1.06 H 1.1 (0.52-1.04) mg/dL Glucose 84 (74-99) mg/dL Calcium 9.0 (8.4-10.2) mg/dL AST 20 (14-36) U/L ALT 17 (4-34) U/L Alkaline Phosphatase 77 (38-126) U/L Total Protein 7.6 (6.3-8.2) g/dL Albumin 4.2 (3.5-5.0) g/dL Calcium panel 08/25/20 Range/Units 19:25 Calcium 9.0 (8.4-10.2) mg/dL Albumin 4.2 (3.5-5.0) g/dL Pituitary panel 08/25/20 08/26/20 Range/Units 19:25 05:40 Sodium 129 L (137-145) mmol/L Potassium 4.4 (3.5-5.1) mmol/L Chloride 99 (98-107) mmol/L Carbon Dioxide 20 L (22-30) mmol/L BUN 15 (7-17) mg/dL Creatinine 1.06 H 1.1 (0.52-1.04) mg/dL Glucose 84 (74-99) mg/dL Calcium 9.0 (8.4-10.2) mg/dL Adrenal panel 08/25/20 08/26/20 Range/Units 19:25 05:40 Sodium 129 L (137-145) mmol/L Potassium 4.4 (3.5-5.1) mmol/L Chloride 99 (98-107) mmol/L Carbon Dioxide 20 L (22-30) mmol/L BUN 15 (7-17) mg/dL Creatinine 1.06 H 1.1 (0.52-1.04) mg/dL Glucose 84 (74-99) mg/dL Calcium 9.0 (8.4-10.2) mg/dL Total Bilirubin 0.3 (0.2-1.3) mg/dL AST 20 (14-36) U/L ALT 17 (4-34) U/L Alkaline Phosphatase 77 (38-126) U/L Total Protein 7.6 (6.3-8.2) g/dL Albumin 4.2 (3.5-5.0) g/dL
[2020-08-26] MEDS: VANCOMYCIN 1,500 MG in SODIUM CHLORIDE 0.9% 250 ML IVPB SCH (13:15)
[2020-08-26] MEDS: SYMBICORT 80-4.5 MCG INHALER INHALATION SCH ×2 (17:00→19:49)
[2020-08-26 17:11] LABS: Glucose,Whole Blood 132 mg/dL (75-99)
[2020-08-26 20:17] LABS: Glucose,Whole Blood 141 mg/dL (75-99)
[2020-08-26] MEDS: QUEtiapine 400 MG TAB PO SCH (20:47)
[2020-08-27] MEDS: TRIAMCINOLONE 0.1% CREAM 80 GM TUBE TOPICAL SCH ×3 (00:13→20:15)
[2020-08-27] MEDS: HYDROcodone/APAP 5-325MG 1 EACH TAB PO PRN ×3 (03:19→22:24)
[2020-08-27] MEDS: VANCOMYCIN 1,500 MG in SODIUM CHLORIDE 0.9% 250 ML IVPB SCH ×2 (04:24→20:12)
[2020-08-27] MEDS: LEVOTHYROXINE 88 MCG TAB PO SCH (05:54)
[2020-08-27 06:30] LABS: HCT 31.1 % (34.0-46.0); HGB 10.9 gm/dL (11.4-16.0); MCH 31.2 pg (25.0-35.0); MCV 89.2 fL (80.0-100.0); Mean Platelet Volume 6.3; Platelet Count 204 k/uL (150-450); RBC 3.48 m/uL (3.80-5.40); RDW 13.7 % (11.5-15.5); WBC 8.5 k/uL (3.8-10.6)
[2020-08-27 07:19] LABS: Glucose,Whole Blood 83 mg/dL (75-99)
[2020-08-27] MEDS: INSULIN DETEMIR (LEVEMIR) 100 UNIT/ML SYR SQ SCH ×2 (08:46→20:37)
[2020-08-27] MEDS: ATORVASTATIN 10 MG TAB PO SCH (08:49)
[2020-08-27] MEDS: DOCUSATE 100 MG CAP PO SCH ×2 (08:49→20:14)
[2020-08-27] MEDS: FLUoxetine HCL 20 MG CAP PO SCH (08:49)
[2020-08-27] MEDS: CYCLOBENZAPRINE 10 MG TAB PO SCH ×2 (08:49→20:15)
[2020-08-27] MEDS: metFORMIN 500 MG TAB PO SCH ×2 (08:50→20:14)
[2020-08-27] MEDS: LOSARTAN 50 MG TAB PO SCH (08:50)
[2020-08-27] MEDS: OXYBUTYNIN 10 MG TAB.ER.24 PO SCH (08:50)
[2020-08-27] MEDS: MULTIVITAMINS, THERA 1 EACH TAB PO SCH (08:50)
[2020-08-27] MEDS: LORATADINE 10 MG TAB PO SCH (08:50)
[2020-08-27] MEDS: GABAPENTIN 400 MG CAP PO SCH ×3 (08:50→21:39)
[2020-08-27] MEDS: TOPIRAMATE 25 MG TAB PO SCH ×2 (08:51→21:39)
[2020-08-27 10:10] LABS: African American GFR (CKD) 54.9 (60.0-200.0); Albumin 3.8 g/dL (3.80-4.90); Albumin/Globulin Ratio 1.73 (1.60-3.17); BUN/Creat Ratio 15.83 Ratio (12.00-20.00); Calcium 8.5 mg/dL (8.7-10.3); Globulin 2.2 g/dL (1.6-3.3); Non-African American GFR(CKD) 47.4 (60.0-200.0); Potassium 4.2 mmol/L (3.5-5.5); Total Bilirubin 0.1 mg/dL (0.2-1.2)
[2020-08-27] MEDS: SYMBICORT 80-4.5 MCG INHALER INHALATION SCH ×2 (10:24→20:43)
[2020-08-27 12:16] LABS: Glucose,Whole Blood 74 mg/dL (75-99)
--- NOTE | 2020-08-27 16:45 | P.PN ---
Subjective Progress Note Date: 08/27/20 Principal diagnosis: This is a continue progress on a 65-year-old black female essentially admitted for cellulitis of the foot. She has had previous below the knee amputation and had a discussion with vascular surgery who states that she should have another day or 2 of IV antibiotic treatment and then placed on oral medication for appropriate outpatient treatment prior to probable amputation of the second digit of her foot. Sugar has been stable. No significant chest pain stated. She seems comfortable this morning. Objective - Vital Signs Vital signs: Vital Signs Temp 97.7 F 08/27/20 14:00 Pulse 79 08/27/20 14:00 Resp 16 08/27/20 14:00 BP 150/79 08/27/20 14:00 Pulse Ox 99 08/27/20 14:00 Intake & Output 08/26/20 08/27/20 08/27/20 18:59 06:59 18:59 Intake Total 472 Balance 472 Weight 90.718 kg Intake: Oral 472 Other: Voiding Method Toilet # Voids 1 - Constitutional General appearance: Present: average body habitus. Absent: no acute distress - EENT Eyes: Absent: abnormal pupil - Neck Neck: Absent: lymphadenopathy - Respiratory Respiratory: bilateral: CTA - Cardiovascular Rhythm: regular Heart sounds: normal: S1, S2 Abnormal Heart Sounds: Absent: S3 Gallop - Gastrointestinal General gastrointestinal: Present: soft. Absent: tenderness - Integumentary Integumentary: Present: cellulitis - Psychiatric Psychiatric: Present: A&O x's 3 - Labs CBC & Chem 7: 08/27/20 06:12 08/27/20 06:12 Labs: Abnormal Lab Results - Last 24 Hours (Table) 08/26/20 08/26/20 08/27/20 Range/Units 17:06 20:16 06:12 RBC (3.80-5.40) m/uL Hgb (11.4-16.0) gm/dL Hct (34.0-46.0) % Sodium 133 L (135-145) mmol/L Carbon Dioxide 20.0 L (21.6-31.8) mmol/L Est GFR (CKD-EPI)AfAm 54.9 L (60.0-200.0) Est GFR (CKD-EPI)NonAf 47.4 L (60.0-200.0) POC Glucose (mg/dL) 132 H 141 H (75-99) mg/dL Calcium 8.5 L (8.7-10.3) mg/dL Total Bilirubin 0.1 L (0.2-1.2) mg/dL Total Protein 6.0 L (6.2-8.2) g/dL 08/27/20 08/27/20 Range/Units 06:12 12:15 RBC 3.48 L (3.80-5.40) m/uL Hgb 10.9 L (11.4-16.0) gm/dL Hct 31.1 L (34.0-46.0) % Sodium (135-145) mmol/L Carbon Dioxide (21.6-31.8) mmol/L Est GFR (CKD-EPI)AfAm (60.0-200.0) Est GFR (CKD-EPI)NonAf (60.0-200.0) POC Glucose (mg/dL) 74 L (75-99) mg/dL Calcium (8.7-10.3) mg/dL Total Bilirubin (0.2-1.2) mg/dL Total Protein (6.2-8.2) g/dL Microbiology - Last 24 Hours (Table) 08/25/20 19:55 Blood Culture - Preliminary Blood No Growth after 24 hours Assessment and Plan (1) History of below-knee amputation of right lower extremity Current Visit: Yes Status: Acute Code(s): Z89.511 - ACQUIRED ABSENCE OF RIGHT LEG BELOW KNEE SNOMED Code(s): 496891060572457 (2) Diabetic foot infection Current Visit: Yes Status: Acute Code(s): E11.628 - TYPE 2 DIABETES MELLITUS WITH OTHER SKIN COMPLICATIONS; L08.9 - LOCAL INFECTION OF THE SKIN AND SUBCUTANEOUS TISSUE, UNSP SNOMED Code(s): 051753121 (3) Cellulitis of toe of left foot Current Visit: Yes Status: Acute Code(s): L03.032 - CELLULITIS OF LEFT TOE SNOMED Code(s): 66320578 Plan: Empiric antibiotic treatment. Reconcile medications. She most likely will need debridement Or possible amputation. Prognosis is guarded secondary to her previous comorbidities. See orders otherwise. Dr. Fenton's group will be covering for the weekend.
[2020-08-27 17:54] LABS: Glucose,Whole Blood 164 mg/dL (75-99)
[2020-08-27 20:48] LABS: Glucose,Whole Blood 222 mg/dL (75-99)
[2020-08-27] MEDS: QUEtiapine 400 MG TAB PO SCH (21:38)
[2020-08-27 23:59] LABS: Glucose,Whole Blood 166 mg/dL (75-99)
[2020-08-28] MEDS: LEVOTHYROXINE 88 MCG TAB PO SCH (06:13)
[2020-08-28 07:25] LABS: HCT 30.2 % (34.0-46.0); HGB 10.4 gm/dL (11.4-16.0); MCH 30.8 pg (25.0-35.0); MCHC 34.4 g/dL (31.0-37.0); MCV 89.4 fL (80.0-100.0); Mean Platelet Volume 6.1; Platelet Count 201 k/uL (150-450); RBC 3.38 m/uL (3.80-5.40); RDW 13.7 % (11.5-15.5); WBC 8.3 k/uL (3.8-10.6)
[2020-08-28 07:40] LABS: Glucose,Whole Blood 93 mg/dL (75-99)
[2020-08-28] MEDS: SYMBICORT 80-4.5 MCG INHALER INHALATION SCH ×2 (07:44→19:59)
[2020-08-28] MEDS: GABAPENTIN 400 MG CAP PO SCH ×3 (09:35→21:00)
[2020-08-28] MEDS: HYDROcodone/APAP 5-325MG 1 EACH TAB PO PRN ×2 (09:35→16:03)
[2020-08-28] MEDS: DOCUSATE 100 MG CAP PO SCH ×2 (09:35→20:59)
[2020-08-28] MEDS: ATORVASTATIN 10 MG TAB PO SCH (09:35)
[2020-08-28] MEDS: CYCLOBENZAPRINE 10 MG TAB PO SCH ×2 (09:36→20:59)
[2020-08-28] MEDS: FLUoxetine HCL 20 MG CAP PO SCH (09:36)
[2020-08-28] MEDS: INSULIN DETEMIR (LEVEMIR) 100 UNIT/ML SYR SQ SCH ×2 (09:37→21:00)
[2020-08-28] MEDS: TOPIRAMATE 25 MG TAB PO SCH ×2 (09:38→20:59)
[2020-08-28] MEDS: OXYBUTYNIN 10 MG TAB.ER.24 PO SCH (09:38)
[2020-08-28] MEDS: TRIAMCINOLONE 0.1% CREAM 80 GM TUBE TOPICAL SCH ×2 (09:38→21:00)
[2020-08-28] MEDS: metFORMIN 500 MG TAB PO SCH ×2 (09:46→20:59)
[2020-08-28] MEDS: MULTIVITAMINS, THERA 1 EACH TAB PO SCH (09:46)
[2020-08-28] MEDS: LOSARTAN 50 MG TAB PO SCH (09:46)
[2020-08-28] MEDS: LORATADINE 10 MG TAB PO SCH (09:46)
[2020-08-28] MEDS ORDERED: VANCOMYCIN TROUGH DUE 1 EACH MISC MISCELLANE ONE (11:00)
[2020-08-28 11:31] LABS: Glucose,Whole Blood 216 mg/dL (75-99)
[2020-08-28 12:43] LABS: Albumin 3.9 g/dL (3.80-4.90); Albumin/Globulin Ratio 1.7 (1.60-3.17); Anion Gap 6.8 mmol/L (4.00-12.00); BUN/Creat Ratio 17.27 Ratio (12.00-20.00); Calcium 8.7 mg/dL (8.7-10.3); Carbon Dioxide 21.2 mmol/L (21.6-31.8); Globulin 2.3 g/dL (1.6-3.3); Non-African American GFR(CKD) 52.6 (60.0-200.0); Potassium 4.5 mmol/L (3.5-5.5); Total Bilirubin 0.2 mg/dL (0.2-1.2); Total Protein 6.2 g/dL (6.2-8.2)
[2020-08-28] MEDS: VANCOMYCIN 1,500 MG in SODIUM CHLORIDE 0.9% 250 ML IVPB SCH (13:00)
--- NOTE | 2020-08-28 13:32 | P.PN ---
<Matilde Hardy - Last Filed: 08/28/20 13:23> Subjective Progress Note Date: 08/28/20 This is a 65-year-old female who was recently admitted for cellulitis of the left foot and of the second toe and is being closely monitored. This Is a patient of Dr. Kennedy's. Patient also seen and evaluated by vascular surgery and is maintained on IV antibiotics in the form of vancomycin and will continue at this time. Patient is showing clinical improvement and will discuss further about the possibility of debridement with possible amputation of that left second toe in the future. We'll continue with current medication regimen and monitor blood sugars closely. Review of systems: Constitutional: No reports of fatigue, fever, or chills, reports improved pain management of the left foot noted Cardiovascular: No reports of chest pain or palpitations Respiratory: No reports of shortness of breath or cough GI: No reports of nausea, vomiting, or diarrhea : No reports of dysuria or retention Neurovascular: No reports of weakness or numbness All medications have been reviewed Objective - Vital Signs Vital signs: Vital Signs Temp 97.3 F L 08/28/20 08:00 Pulse 83 08/28/20 08:00 Resp 17 08/28/20 08:00 BP 100/62 08/28/20 08:00 Pulse Ox 97 08/28/20 08:00 Intake & Output 08/27/20 08/28/20 08/28/20 18:59 06:59 18:59 Intake Total 472 236 Balance 472 236 Intake: Oral 472 236 Other: Voiding Method Toilet Toilet # Voids 1 2 # Bowel Movements 0 - Exam GENERAL: This is a 65-year-old female sitting up in bed asleep although easily arousable, alert and oriented x3, not in any acute distress. Well developed, well nourished. HEENT: Pupils are round and equally reacting to light. EOMI. No scleral icterus. No conjunctival pallor. Normocephalic, atraumatic. No pharyngeal erythema. No thyromegaly. CARDIOVASCULAR: S1 and S2 present. No murmurs, rubs, or gallops. PULMONARY: Diminished breath sounds bilaterally with no wheezing or crackles. ABDOMEN: Soft, nontender, nondistended, normoactive bowel sounds. No palpable organomegaly. MUSCULOSKELETAL: No joint swelling or deformity. EXTREMITIES: No cyanosis, clubbing, no pedal edema, right BKA noted, left foot dressing is currently dry and intact NEUROLOGICAL: Gross neurological examination did not reveal any focal deficits. SKIN: No rashes or lesions noted - Labs CBC & Chem 7: 08/28/20 06:56 08/28/20 06:56 Labs: Abnormal Lab Results - Last 24 Hours (Table) 08/27/20 08/27/20 08/27/20 Range/Units 17:53 20:46 23:57 RBC (3.80-5.40) m/uL Hgb (11.4-16.0) gm/dL Hct (34.0-46.0) % POC Glucose (mg/dL) 164 H 222 H 166 H (75-99) mg/dL 08/28/20 08/28/20 Range/Units 06:56 11:29 RBC 3.38 L (3.80-5.40) m/uL Hgb 10.4 L (11.4-16.0) gm/dL Hct 30.2 L (34.0-46.0) % POC Glucose (mg/dL) 216 H (75-99) mg/dL Microbiology - Last 24 Hours (Table) 08/25/20 19:55 Blood Culture - Preliminary Blood No Growth after 48 hours Assessment and Plan Assessment: Diabetic left foot infection Cellulitis of the second toe of the left foot Diabetes mellitus type II 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 Vascular surgery Dr. Rajan following with discussion of debridement of the second toe the left foot with possible amputation in the future. Patient is maintained on IV antibiotics in the form of vancomycin and will continue at this time. Cultures remain negative. Will await vascular surgery recommendations on discharge antibiotics. Continue monitoring blood sugars before meals at bedtime and continue with long-acting along with oral anti-diabetic medications. Will repeat a.m. labs and continue to monitor closely. Further recommendations to follow depending on clinical course of the patient. <Marquise,Darius E - Last Filed: 08/28/20 23:29> Subjective I have discussed the plan and I have reviewed the notes with DEVAN Clayton and I agree with it except was mentioned below Patient is seen and examined by me at bedside Patient with right foot infection, patient has been evaluated by Dr. Deleon and she is currently on vancomycin. On admission she has mild leukocytosis which came back to normal. ESR was slightly elevated at 40. We will keep monitoring the patient, we will check CBC, BMP and ESR. Consider bone scan to check for possible osteomyelitis Foot x-ray showing 6 mm broken needle or wire foreign body in the soft tissue on the plantar aspect of the midshaft of the first metatarsal. Has been evaluated by Dr. Deleon and he thinks this couldn't be year old. Objective - Vital Signs Vital signs: Vital Signs Temp 98.0 F 08/28/20 19:05 Pulse 87 08/28/20 19:05 Resp 16 08/28/20 19:05 BP 143/70 08/28/20 19:05 Pulse Ox 100 08/28/20 19:05 Intake & Output 08/28/20 08/28/20 08/29/20 06:59 18:59 06:59 Intake Total 236 Balance 236 Intake: Oral 236 Other: Voiding Method Toilet Toilet Toilet # Voids 2 2 # Bowel Movements 0 - Labs CBC & Chem 7: 08/28/20 06:56 08/28/20 06:56 Labs: Abnormal Lab Results - Last 24 Hours (Table) 08/27/20 08/28/20 08/28/20 Range/Units 23:57 06:56 06:56 RBC 3.38 L (3.80-5.40) m/uL Hgb 10.4 L (11.4-16.0) gm/dL Hct 30.2 L (34.0-46.0) % Sodium 134 L (135-145) mmol/L Carbon Dioxide 21.2 L (21.6-31.8) mmol/L Est GFR (CKD-EPI)NonAf 52.6 L (60.0-200.0) POC Glucose (mg/dL) 166 H (75-99) mg/dL 08/28/20 08/28/20 08/28/20 Range/Units 11:29 17:16 19:44 RBC (3.80-5.40) m/uL Hgb (11.4-16.0) gm/dL Hct (34.0-46.0) % Sodium (135-145) mmol/L Carbon Dioxide (21.6-31.8) mmol/L Est GFR (CKD-EPI)NonAf (60.0-200.0) POC Glucose (mg/dL) 216 H 126 H 187 H (75-99) mg/dL Microbiology - Last 24 Hours (Table) 08/25/20 19:55 Blood Culture - Preliminary Blood No Growth after 72 hours
[2020-08-28 17:22] LABS: Glucose,Whole Blood 126 mg/dL (75-99)
[2020-08-28 19:45] LABS: Glucose,Whole Blood 187 mg/dL (75-99)
[2020-08-28] MEDS: QUEtiapine 400 MG TAB PO SCH (21:00)
[2020-08-29] MEDS: HEPARIN SODIUM,PORCINE 5,000 UNIT/ML 1 ML VIAL SQ SCH ×3 (00:27→20:51)
[2020-08-29] MEDS: VANCOMYCIN 1,500 MG in SODIUM CHLORIDE 0.9% 250 ML IVPB SCH ×2 (03:33→20:48)
[2020-08-29] MEDS: LEVOTHYROXINE 88 MCG TAB PO SCH (05:43)
[2020-08-29 06:13] LABS: Basophils % (A) 0 %; Eosinophils # (A) 0.8 k/uL (0-0.7); Eosinophils % (A) 11 %; HCT 30.1 % (34.0-46.0); HGB 10.4 gm/dL (11.4-16.0); Lymphocytes # (A) 1.8 k/uL (1.0-4.8); Lymphocytes % (A) 25 %; MCH 30.6 pg (25.0-35.0); MCHC 34.4 g/dL (31.0-37.0); Monocytes # (A) 0.4 k/uL (0-1.0); Monocytes % (A) 5 %; Neutrophils # (A) 4.1 k/uL (1.3-7.7); Neutrophils % (A) 57 %; Platelet Count 193 k/uL (150-450); RBC 3.39 m/uL (3.80-5.40); RDW 13.7 % (11.5-15.5); WBC 7.3 k/uL (3.8-10.6)
[2020-08-29 06:53] LABS: Erythrocyte Sedimentation Rate 68 mm/hr (0-20)
[2020-08-29 07:03] LABS: Glucose,Whole Blood 82 mg/dL (75-99)
[2020-08-29] MEDS: GABAPENTIN 400 MG CAP PO SCH ×3 (09:38→21:45)
[2020-08-29] MEDS: MULTIVITAMINS, THERA 1 EACH TAB PO SCH (09:38)
[2020-08-29] MEDS: LOSARTAN 50 MG TAB PO SCH (09:38)
[2020-08-29] MEDS: metFORMIN 500 MG TAB PO SCH ×2 (09:38→20:51)
[2020-08-29] MEDS: LORATADINE 10 MG TAB PO SCH (09:38)
[2020-08-29] MEDS: OXYBUTYNIN 10 MG TAB.ER.24 PO SCH (09:38)
[2020-08-29] MEDS: DOCUSATE 100 MG CAP PO SCH ×2 (09:39→20:51)
[2020-08-29] MEDS: TOPIRAMATE 25 MG TAB PO SCH ×2 (09:39→21:44)
[2020-08-29] MEDS: ATORVASTATIN 10 MG TAB PO SCH (09:39)
[2020-08-29] MEDS: FLUoxetine HCL 20 MG CAP PO SCH (09:39)
[2020-08-29] MEDS: TRIAMCINOLONE 0.1% CREAM 80 GM TUBE TOPICAL SCH ×2 (09:39→20:54)
[2020-08-29] MEDS: HYDROcodone/APAP 5-325MG 1 EACH TAB PO PRN ×2 (09:39→16:59)
[2020-08-29] MEDS: CYCLOBENZAPRINE 10 MG TAB PO SCH ×2 (09:39→20:51)
[2020-08-29] MEDS: INSULIN DETEMIR (LEVEMIR) 100 UNIT/ML SYR SQ SCH ×2 (09:40→21:45)
[2020-08-29 09:55] LABS: African American GFR (CKD) 77.8 (60.0-200.0); Anion Gap 7.4 mmol/L (4.00-12.00); BUN/Creat Ratio 18.89 Ratio (12.00-20.00); Calcium 8.6 mg/dL (8.7-10.3); Carbon Dioxide 22.6 mmol/L (21.6-31.8); Non-African American GFR(CKD) 67.1 (60.0-200.0); Potassium 4.3 mmol/L (3.5-5.5)
[2020-08-29] MEDS: SYMBICORT 80-4.5 MCG INHALER INHALATION SCH ×2 (10:13→20:57)
[2020-08-29 11:39] LABS: Glucose,Whole Blood 120 mg/dL (75-99)
--- NOTE | 2020-08-29 13:16 | P.PN ---
<Matilde Hardy - Last Filed: 08/29/20 13:09> Subjective Progress Note Date: 08/29/20 This is a 65-year-old female who was recently admitted for cellulitis of the left foot and of the second toe and is being closely monitored. This Is a patient of Dr. Kennedy's. Patient also seen and evaluated by vascular surgery and is maintained on IV antibiotics in the form of vancomycin and will continue at this time. Patient is showing clinical improvement and will discuss further about the possibility of debridement with possible amputation of that left second toe in the future. We'll continue with current medication regimen and monitor blood sugars closely. 08/29/2020 Patient is seen and evaluated in follow-up and continues to be closely monitored. Patient currently undergoing bone scan of the left lower extremity as x-ray of the foot shows extensive arthritic changes in the midfoot that could relate to neuropathic arthropathy with no specific sign of osteomyelitis although there is a noted small 6 mm broken needle or wire foreign body in the soft tissue at the plantar aspect of the midshaft of the first metatarsal. Patient does have a history of right sided BKA and is currently maintained on IV antibiotics in the form of vancomycin. Dr. Rajan is following. Blood sugars being closely monitored and well controlled at this time. Current potassium is 4.3, sodium is 135, creatinine 0.9, hemoglobin stable at 10.4. ESR slightly elevated at 68. Review of systems: Constitutional: No reports of fatigue, fever, or chills Cardiovascular: No reports of chest pain or palpitations Respiratory: No reports of shortness of breath or cough GI: No reports of nausea, vomiting, or diarrhea : No reports of dysuria or retention Neurovascular: No reports of weakness or numbness All medications have been reviewed Objective - Vital Signs Vital signs: Vital Signs Temp 97.5 F L 08/29/20 08:00 Pulse 80 08/29/20 08:00 Resp 16 08/29/20 08:00 BP 133/75 08/29/20 08:00 Pulse Ox 100 08/29/20 08:00 Intake & Output 08/28/20 08/29/20 08/29/20 18:59 06:59 18:59 Other: Voiding Method Toilet Toilet Toilet # Voids 2 3 # Bowel Movements 0 - Exam GENERAL: This is a 65-year-old female sitting up in bed awake, alert and oriented x3, not in any acute distress. Well developed, well nourished. HEENT: Pupils are round and equally reacting to light. EOMI. No scleral icterus. No conjunctival pallor. Normocephalic, atraumatic. No pharyngeal erythema. No thyromegaly. CARDIOVASCULAR: S1 and S2 present. No murmurs, rubs, or gallops. PULMONARY: Diminished breath sounds bilaterally with no wheezing or crackles. ABDOMEN: Soft, nontender, nondistended, normoactive bowel sounds. No palpable organomegaly. MUSCULOSKELETAL: No joint swelling or deformity. EXTREMITIES: No cyanosis, clubbing, no pedal edema, right BKA noted, left foot dressing is currently dry and intact NEUROLOGICAL: Gross neurological examination did not reveal any focal deficits. SKIN: No rashes or lesions noted - Labs CBC & Chem 7: 08/29/20 05:43 08/29/20 05:43 Labs: Abnormal Lab Results - Last 24 Hours (Table) 08/28/20 08/28/20 08/29/20 Range/Units 17:16 19:44 05:43 RBC 3.39 L (3.80-5.40) m/uL Hgb 10.4 L (11.4-16.0) gm/dL Hct 30.1 L (34.0-46.0) % Eosinophils # 0.8 H (0-0.7) k/uL ESR 68 H (0-20) mm/hr POC Glucose (mg/dL) 126 H 187 H (75-99) mg/dL Calcium (8.7-10.3) mg/dL 08/29/20 08/29/20 Range/Units 05:43 11:27 RBC (3.80-5.40) m/uL Hgb (11.4-16.0) gm/dL Hct (34.0-46.0) % Eosinophils # (0-0.7) k/uL ESR (0-20) mm/hr POC Glucose (mg/dL) 120 H (75-99) mg/dL Calcium 8.6 L (8.7-10.3) mg/dL Microbiology - Last 24 Hours (Table) 08/25/20 19:55 Blood Culture - Preliminary Blood No Growth after 72 hours Assessment and Plan Assessment: Diabetic left foot infection Cellulitis of the second toe of the left foot Diabetes mellitus type II 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 Vascular surgery Dr. Rajan following with discussion of debridement of the second toe the left foot with possible amputation in the future. Patient is maintained on IV antibiotics in the form of vancomycin and will continue at this time. Cultures remain negative. Will await vascular surgery recommendations on discharge antibiotics. Continue monitoring blood sugars before meals at bedtime and continue with long-acting along with oral anti-diabetic medications. Will repeat a.m. labs and continue to monitor closely. Further recommendations to follow depending on clinical course of the patient. Dr. Kennedy will resume care of the patient on 08/30/2020. Subjective I have discussed the plan and I have reviewed the notes with DEVAN Clayton and I agree with it except was mentioned below Patient is seen and examined by me at bedside Patient with left foot infection, patient has been evaluated by Dr. Rajan and she is currently on vancomycin. On admission she has mild leukocytosis which came back to normal. ESR was slightly elevated at 40. We will keep monitoring the patient, we will check CBC, BMP and ESR. Consider bone scan to check for possible osteomyelitis Foot x-ray showing 6 mm broken needle or wire foreign body in the soft tissue on the plantar aspect of the midshaft of the first metatarsal. Has been evaluated by Dr. Rajan and he thinks this couldn't be year old. <Sheet,Darius E - Last Filed: 08/30/20 01:11> Objective - Vital Signs Vital signs: Vital Signs Temp 98.6 F 08/29/20 20:00 Pulse 84 08/29/20 20:00 Resp 20 08/29/20 20:00 BP 133/76 08/29/20 20:00 Pulse Ox 98 08/29/20 14:00 Intake & Output 08/29/20 08/29/20 08/30/20 06:59 18:59 06:59 Intake Total 1200 Balance 1200 Intake: Oral 1200 Other: Voiding Method Toilet Toilet # Voids 3 3 # Bowel Movements 0 - Labs CBC & Chem 7: 08/29/20 05:43 08/29/20 05:43 Labs: Abnormal Lab Results - Last 24 Hours (Table) 1208/29/20 08/29/20 Range/Units 05:43 05:43 11:27 RBC 3.39 L (3.80-5.40) m/uL Hgb 10.4 L (11.4-16.0) gm/dL Hct 30.1 L (34.0-46.0) % Eosinophils # 0.8 H (0-0.7) k/uL ESR 68 H (0-20) mm/hr POC Glucose (mg/dL) 120 H (75-99) mg/dL Calcium 8.6 L (8.7-10.3) mg/dL 08/29/20 08/29/20 Range/Units 17:59 21:13 RBC (3.80-5.40) m/uL Hgb (11.4-16.0) gm/dL Hct (34.0-46.0) % Eosinophils # (0-0.7) k/uL ESR (0-20) mm/hr POC Glucose (mg/dL) 104 H 149 H (75-99) mg/dL Calcium (8.7-10.3) mg/dL Microbiology - Last 24 Hours (Table) 08/25/20 19:55 Blood Culture - Preliminary Blood No Growth after 96 hours Assessment and Plan Assessment: I have discussed the plan and I have reviewed the notes with DEVAN Clayton and I agree with it except was mentioned below Patient is seen and examined by me at bedside 08/29/20 -Bone scan showed increased uptake in mid tarsal region. Fracture or osteomyelitis could be considered at this location Suspicious uptake within the great toe is not suggestive of osteomyelitis -Left foot x-ray :Extensive arthritic changes in the mid foot (could be neuropathic arthropathy. No osteomyelitis) 6 mm broken needle or wire foreign body in soft tissue in the midshaft of the first metatarsal -ESR is worsening from 40 up to 68 -Patient currently remains on IV vancomycin -We will consult infectious disease team for further recommendation
--- NOTE | 2020-08-29 13:38 | NM ---
EXAMINATION TYPE: NM bone 3 phase DATE OF EXAM: 08/29/2020 COMPARISON: NONE HISTORY: Right leg osteomyelitis Triple phase bone scintigraphy was performed following the injection of 26.2 mCi Tc 99m MDP. Immedia te images and 5 hours post injection images acquired. FINDINGS: Blood Flow: There is increased flow to the left lower extremity. Blood Flow: Mild central foot increase accumulation Static Images: Increase uptake in mid foot. There is increase second digit uptake. IMPRESSION: 1. Increased uptake in 3 phases of bone scan within the mid tarsal region. Fracture or osteomyelitis could be considered at this location. 2. Some degenerative change of the second digit may be present. 3. Suspicious three-phase uptake within the great toe is not evident suggest osteomyelitis.
[2020-08-29 18:08] LABS: Glucose,Whole Blood 104 mg/dL (75-99)
[2020-08-29 21:16] LABS: Glucose,Whole Blood 149 mg/dL (75-99)
[2020-08-29] MEDS: QUEtiapine 400 MG TAB PO SCH (21:44)
[2020-08-30 04:08] VITALS: RESP 16
[2020-08-30 05:10] LABS: Basophils % (A) 0 %; Eosinophils # (A) 0.7 k/uL (0-0.7); Eosinophils % (A) 10 %; HCT 30.2 % (34.0-46.0); HGB 10.5 gm/dL (11.4-16.0); Lymphocytes # (A) 1.7 k/uL (1.0-4.8); Lymphocytes % (A) 23 %; MCH 30.9 pg (25.0-35.0); MCHC 34.9 g/dL (31.0-37.0); MCV 88.6 fL (80.0-100.0); Mean Platelet Volume 6.1; Monocytes # (A) 0.3 k/uL (0-1.0); Monocytes % (A) 4 %; Neutrophils # (A) 4.7 k/uL (1.3-7.7); Neutrophils % (A) 61 %; Platelet Count 189 k/uL (150-450); RBC 3.41 m/uL (3.80-5.40); RDW 13.6 % (11.5-15.5); WBC 7.7 k/uL (3.8-10.6)
[2020-08-30] MEDS: LEVOTHYROXINE 88 MCG TAB PO SCH ×2 (05:44→08:25)
[2020-08-30 07:08] LABS: Glucose,Whole Blood 107 mg/dL (75-99)
[2020-08-30] MEDS: metFORMIN 500 MG TAB PO SCH (08:24)
[2020-08-30] MEDS: OXYBUTYNIN 10 MG TAB.ER.24 PO SCH (08:25)
[2020-08-30] MEDS: ATORVASTATIN 10 MG TAB PO SCH (08:25)
[2020-08-30] MEDS: CYCLOBENZAPRINE 10 MG TAB PO SCH (08:25)
[2020-08-30] MEDS: TOPIRAMATE 25 MG TAB PO SCH (08:26)
[2020-08-30] MEDS: GABAPENTIN 400 MG CAP PO SCH (08:26)
[2020-08-30] MEDS: DOCUSATE 100 MG CAP PO SCH (08:26)
[2020-08-30] MEDS: INSULIN DETEMIR (LEVEMIR) 100 UNIT/ML SYR SQ SCH (08:27)
[2020-08-30] MEDS: HEPARIN SODIUM,PORCINE 5,000 UNIT/ML 1 ML VIAL SQ SCH (08:27)
[2020-08-30] MEDS: LOSARTAN 50 MG TAB PO SCH (08:27)
[2020-08-30] MEDS: FLUoxetine HCL 20 MG CAP PO SCH (08:27)
[2020-08-30] MEDS: LORATADINE 10 MG TAB PO SCH (08:27)
[2020-08-30] MEDS: TRIAMCINOLONE 0.1% CREAM 80 GM TUBE TOPICAL SCH (08:29)
[2020-08-30] MEDS: MULTIVITAMINS, THERA 1 EACH TAB PO SCH (08:35)
[2020-08-30 08:36] VITALS: BP 109/75; PULSE 89; TEMP 98.3
[2020-08-30] MEDS: SYMBICORT 80-4.5 MCG INHALER INHALATION SCH (09:01)
[2020-08-30 09:26] LABS: African American GFR (CKD) 89.7 (60.0-200.0); Calcium 8.8 mg/dL (8.7-10.3); Non-African American GFR(CKD) 77.4 (60.0-200.0); Potassium 4.3 mmol/L (3.5-5.5)
[2020-08-30 11:03] LABS: Glucose,Whole Blood 138 mg/dL (75-99)
--- NOTE | 2020-08-30 11:10 | P.DS ---
Providers Date of admission: 08/25/20 20:08 Attending physician: Yomi Kennedy Consults: 08/25/20 20:06 Consult Physician Urgent Consulting Provider: Sebastian Rajan Consult Reason/Comments: left foot diabetic foot infection Do you want consulting provider notified?: Yes 08/30/20 01:11 Consult Physician Routine Consulting Provider: Juan Vaughn Consult Reason/Comments: Right foot infection Do you want consulting provider notified?: Yes, Notify in am Primary care physician: Yomi Kennedy - Discharge Diagnosis(es) (1) History of below-knee amputation of right lower extremity Current Visit: Yes Status: Acute (2) Diabetic foot infection Current Visit: Yes Status: Acute (3) Cellulitis of toe of left foot Current Visit: Yes Status: Acute Hospital Course: Discharge summary on a 65-year-old white female essentially admitted for diabetic foot ulcer with cellulitis of the second toe of the left foot. The patient has previous right below the knee amputation and has struggled with vascular issues and foot infections. After being evaluated by vascular surgery, the patient was placed on appropriate antibiotic treatment for 4 days and to be discharged for later treatment with antibody therapy for probable amputation of the second toe. Patient Condition at Discharge: Stable Plan - Discharge Summary Discharge Rx Participant: No New Discharge Prescriptions: Continue Sulfamethox-Tmp 800-160Mg [Bactrim DS 800-160 mg] 1 tab PO Q12HR #28 tab Cephalexin [Keflex] 500 mg PO Q6HR 14 Days #56 cap Albuterol Sulfate [Proair Hfa] 2 puff INHALATION RT-Q4H PRN PRN Reason: Shortness Of Breath Multivit with Calcium,Iron,Min [Women's Multivitamin] 1 tab PO DAILY Ibuprofen [Motrin] 600 mg PO TID PRN PRN Reason: Pain Cyclobenzaprine [Flexeril] 10 mg PO BID Triamcinolone 0.1% Cream [Kenalog 0.1% Cream] 1 applic TOPICAL BID Docusate [Colace] 100 mg PO BID HYDROcodone/APAP 5-325MG [[place] 5-325] 1 tab PO TID PRN PRN Reason: Pain Gabapentin 800 mg PO TID Fluticasone/Salmeterol [Advair 250-50 Diskus] 1 puff INHALATION RT-BID Insulin Glargine,Hum.rec.anlog [Lantus Solostar] 50 unit SQ DAILY Insulin Glargine,Hum.rec.anlog [Lantus Solostar] 45 unit SQ HS Cetirizine HCl 10 mg PO DAILY QUEtiapine [SEROquel] 400 mg PO HS Atorvastatin [Lipitor] 10 mg PO DAILY metFORMIN HCL [Glucophage] 1,000 mg PO BID Topiramate 50 mg PO BID Oxybutynin Chloride [Oxybutynin Chloride ER] 10 mg PO DAILY Losartan [Cozaar] 50 mg PO DAILY Levothyroxine Sodium 88 mcg PO DAILY FLUoxetine HCL [PROzac] 20 mg PO DAILY Discharge Medication List Albuterol Sulfate [Proair Hfa] 2 puff INHALATION RT-Q4H PRN 08/17/20 [History] Atorvastatin [Lipitor] 10 mg PO DAILY 08/17/20 [History] Cephalexin [Keflex] 500 mg PO Q6HR 14 Days #56 cap 08/17/20 [Rx] Cetirizine HCl 10 mg PO DAILY 08/17/20 [History] Cyclobenzaprine [Flexeril] 10 mg PO BID 08/17/20 [History] Docusate [Colace] 100 mg PO BID 08/17/20 [History] Fluticasone/Salmeterol [Advair 250-50 Diskus] 1 puff INHALATION RT-BID 08/17/20 [History] Gabapentin 800 mg PO TID 08/17/20 [History] HYDROcodone/APAP 5-325MG [[place] 5-325] 1 tab PO TID PRN 08/17/20 [History] Ibuprofen [Motrin] 600 mg PO TID PRN 08/17/20 [History] Insulin Glargine,Hum.rec.anlog [Lantus Solostar] 45 unit SQ HS 08/17/20 [History] Insulin Glargine,Hum.rec.anlog [Lantus Solostar] 50 unit SQ DAILY 08/17/20 [History] Levothyroxine Sodium 88 mcg PO DAILY 08/17/20 [History] Losartan [Cozaar] 50 mg PO DAILY 08/17/20 [History] Multivit with Calcium,Iron,Min [Women's Multivitamin] 1 tab PO DAILY 08/17/20 [History] Oxybutynin Chloride [Oxybutynin Chloride ER] 10 mg PO DAILY 08/17/20 [History] QUEtiapine [SEROquel] 400 mg PO HS 08/17/20 [History] Sulfamethox-Tmp 800-160Mg [Bactrim DS 800-160 mg] 1 tab PO Q12HR #28 tab 08/17/20 [Rx] Topiramate 50 mg PO BID 08/17/20 [History] Triamcinolone 0.1% Cream [Kenalog 0.1% Cream] 1 applic TOPICAL BID 08/17/20 [History] metFORMIN HCL [Glucophage] 1,000 mg PO BID 08/17/20 [History] FLUoxetine HCL [PROzac] 20 mg PO DAILY 08/25/20 [History] Follow up Appointment(s)/Referral(s): Yomi Kennedy MD [Primary Care Provider] - 1 Week Discharge Disposition: HOME WITH HOME HEALTH SERVICES
[2020-08-30] MEDS ORDERED: VANCOMYCIN 1,750 MG in SODIUM CHLORIDE 0.9% 500 ML 500 ML IVPB SCH (12:00)
--- NOTE | 2020-08-30 14:34 | P.CONS ---
History of Present Illness - Reason for Consult Consult date: 08/30/20 Right foot infection - History of Present Illness HISTORY OF PRESENT ILLNESS This is a 65-year-old female who initially presented to the hospital on August 25 due to a left foot infection. Patient states that she had a sore on the top of her second toe that had initially healed and then became infected in the lower part. She states has been going on for a couple months and the top of her toe started turning black. She has been on Bactrim and Keflex in the outpatient setting. She states she had some serous type drainage. She denies any pain with underlying diabetic neuropathy. She denies having any fever or chills. No cough, shortness of breath. She denies abdominal pain, nausea vomiting or diarrhea. Bone scan was done which was not consistent with osteomyelitis of the second toe. Patient is scheduled for discharge today with follow-up with her PCP and Dr. Rajan. REVIEW OF SYSTEMS Constitutional: No fever, no chills, no night sweats. No weakness, fatigue or lethargy. EENT: No headache. No blurred vision or double vision, no loss of vision. No dizziness. No nasal drainage or congestion. Lungs: No shortness of breath, cough, no sputum production. No wheezing. Cardiovascular: No chest pain, no lower extremity edema. No lightheadedness or dizziness. No syncopal episodes. Abdominal: No abdominal pain. No nausea, vomiting. No diarrhea. No constipation. No bloody or tarry stools.. No loss of appetite. Genitourinary: No dysuria, increased frequency, urgency. Musculoskeletal: No myalgias. No muscle weakness, + gait dysfunction. Integumentary: + wounds. No rash or pruritus. Neurologic: No aphasia. No facial droop. No change in mentation. No head injury. No headache. No paralysis. No paresthesia. Endocrine: + abnormal blood sugars. PHYSICAL EXAMINATION Gen: This is a 65-year-old female. Patient is resting been appears to be in no acute distress. HEENT: Head is atraumatic, normocephalic. Pupils equal, round. Sclerae is anicteric. NECK: Supple. No JVD. No lymphadenopathy. No thyromegaly. LUNGS: Clear to auscultation. No wheezes or rhonchi. No intercostal retractions. HEART: Regular rate and rhythm. No murmur. ABDOMEN: Soft. Bowel sounds are present. No masses. No tenderness. EXTREMITIES: No pedal edema. No calf tenderness. Left [id number] amputation. Ulcer to the dorsal surface of the right second toe. NEUROLOGICAL: Patient is awake, alert and oriented x3. Cranial nerves 2 through 12 are grossly intact. ASSESSMENT Diabetic ulcer to the left second toe Osteomyelitis ruled out as bone scan is not consistent with a wound at second toe Diabetes mellitus type 2 Diabetic neuropathy PLAN Continue Bactrim and Keflex as are prescribed Follow-up with PCP and Dr. Rajan Thank you kindly for this consultation The above dictated assessment and findings were discussed with Dr. Vaughn. The impression and plan of care have been directed as dictated. Danita Gatica nurse practitioner acting as scribe for Dr. Vaughn. Past Medical History Past Medical History: Diabetes Mellitus, Hypertension History of Any Multi-Drug Resistant Organisms: None Reported Past Surgical History: Back Surgery, Orthopedic Surgery Additional Past Surgical History / Comment(s): rt below knee amp Past Anesthesia/Blood Transfusion Reactions: No Reported Reaction Past Psychological History: Anxiety, Depression Smoking Status: Former smoker Past Alcohol Use History: Occasional Past Drug Use History: None Reported Medications and Allergies Home Medications Medication Instructions Recorded Confirmed Type Albuterol Sulfate [Proair Hfa] 2 puff INHALATION RT-Q4H PRN 08/17/20 08/25/20 History Atorvastatin [Lipitor] 10 mg PO DAILY 08/17/20 08/25/20 History Cephalexin [Keflex] 500 mg PO Q6HR 14 Days #56 cap 08/17/20 08/25/20 Rx Cetirizine HCl 10 mg PO DAILY 08/17/20 08/25/20 History Cyclobenzaprine [Flexeril] 10 mg PO BID 08/17/20 08/25/20 History Docusate [Colace] 100 mg PO BID 08/17/20 08/25/20 History Fluticasone/Salmeterol [Advair 1 puff INHALATION RT-BID 08/17/20 08/25/20 History 250-50 Diskus] Gabapentin 800 mg PO TID 08/17/20 08/25/20 History HYDROcodone/APAP 5-325MG [[place] 1 tab PO TID PRN 08/17/20 08/25/20 History 5-325] Ibuprofen [Motrin] 600 mg PO TID PRN 08/17/20 08/25/20 History Insulin Glargine,Hum.rec.anlog 45 unit SQ HS 08/17/20 08/25/20 History [Lantus Solostar] Insulin Glargine,Hum.rec.anlog 50 unit SQ DAILY 08/17/20 08/25/20 History [Lantus Solostar] Levothyroxine Sodium 88 mcg PO DAILY 08/17/20 08/25/20 History Losartan [Cozaar] 50 mg PO DAILY 08/17/20 08/25/20 History Multivit with Calcium,Iron,Min 1 tab PO DAILY 08/17/20 08/25/20 History [Women's Multivitamin] Oxybutynin Chloride [Oxybutynin 10 mg PO DAILY 08/17/20 08/25/20 History Chloride ER] QUEtiapine [SEROquel] 400 mg PO HS 08/17/20 08/25/20 History Sulfamethox-Tmp 800-160Mg [Bactrim 1 tab PO Q12HR #28 tab 08/17/20 08/25/20 Rx DS 800-160 mg] Topiramate 50 mg PO BID 08/17/20 08/25/20 History Triamcinolone 0.1% Cream [Kenalog 1 applic TOPICAL BID 08/17/20 08/25/20 History 0.1% Cream] metFORMIN HCL [Glucophage] 1,000 mg PO BID 08/17/20 08/25/20 History FLUoxetine HCL [PROzac] 20 mg PO DAILY 08/25/20 08/25/20 History Allergies Allergy/AdvReac Type Severity Reaction Status Date / Time No Known Allergies Allergy Verified 08/25/20 19:01 Physical Exam Vitals: Vital Signs Temp Pulse Pulse Resp BP Pulse Ox 08/30/20 08:00 98.3 F 89 16 109/75 08/30/20 02:30 97.6 F 86 16 126/72 96 08/29/20 20:00 98.6 F 84 20 133/76 08/29/20 19:20 80 08/29/20 14:00 98.0 F 65 16 132/79 98 Intake and Output 08/29/20 08/30/20 08/30/20 22:59 06:59 14:59 Intake Total 1200 Balance 1200 Intake: Oral 1200 Other: Voiding Method Toilet Toilet # Voids 3 1 Results CBC & Chem 7: 08/30/20 04:48 08/30/20 04:48 Labs: Abnormal Lab Results - Last 24 Hours (Table) 08/29/20 08/29/20 08/29/20 Range/Units 11:27 17:59 21:13 RBC (3.80-5.40) m/uL Hgb (11.4-16.0) gm/dL Hct (34.0-46.0) % POC Glucose (mg/dL) 120 H 104 H 149 H (75-99) mg/dL 08/30/20 08/30/20 08/30/20 Range/Units 04:48 07:03 11:01 RBC 3.41 L (3.80-5.40) m/uL Hgb 10.5 L (11.4-16.0) gm/dL Hct 30.2 L (34.0-46.0) % POC Glucose (mg/dL) 107 H 138 H (75-99) mg/dL Microbiology - Last 24 Hours (Table) 08/25/20 19:55 Blood Culture - Preliminary Blood No Growth after 96 hours
[2020-08-31] MEDS ORDERED: VANCOMYCIN TROUGH DUE 1 EACH MISC MISCELLANE ONE (19:00)
== END 2020-08-30 14:15 | disposition home health service (06) | DRG 300 ==
LOC: EC 18:08 → 5NMEDONC 20:08
PROVIDERS: ADMIT Family Medicine; ATTEND Family Medicine
DX: E11.52 Type 2 diabetes mellitus with diabetic peripheral angiopathy with gangrene (principal); I96 Gangrene, not elsewhere classified; L03.116 Cellulitis of left lower limb; E11.628 Type 2 diabetes mellitus with other skin complications; E11.610 Type 2 diabetes mellitus with diabetic neuropathic arthropathy; E11.621 Type 2 diabetes mellitus with foot ulcer; L97.529 Non-pressure chronic ulcer of other part of left foot with unspecified severity; E11.40 Type 2 diabetes mellitus with diabetic neuropathy, unspecified; L03.032 Cellulitis of left toe; F32.9 Major depressive disorder, single episode, unspecified; F41.9 Anxiety disorder, unspecified; Z79.4 Long term (current) use of insulin; M79.5 Residual foreign body in soft tissue; Z89.511 Acquired absence of right leg below knee; I10 Essential (primary) hypertension; M20.42 Other hammer toe(s) (acquired), left foot; Z79.3 Long term (current) use of hormonal contraceptives; Z79.51 Long term (current) use of inhaled steroids; Z79.890 Hormone replacement therapy; Z79.899 Other long term (current) drug therapy; Z87.891 Personal history of nicotine dependence
CPT/HCPCS: 36415; 78315; 80048; 80053; 80202; 82565; 83605; 85025; 85027; 85652; 86140; 87040; 94640; 96361; 96365; 96366; 96375; 99284

== ENCOUNTER 2021-05-24 02:21 | Emergency (ER) | payer MEDICARE, OTHER ==
[2021-05-24 02:28] VITALS: BP 149/63; PULSE 86; RESP 22; TEMP 98.2
[2021-05-24] MEDS ORDERED: HYDROmorphone 1 MG/ML 1 ML SYRINGE IM STA (03:13)
[2021-05-24] MEDS ORDERED: IBUPROFEN 800 MG TAB PO STA (03:13)
[2021-05-24] MEDS ORDERED: traMADol 50 MG STARTER PACK 3 TAB BTL PO STA (03:41)
[2021-05-24] MEDS ORDERED: traMADol 50 MG TAB PO STA (03:41)
--- NOTE | 2021-05-24 03:41 | ED ---
Extremity Problem HPI - General Chief complaint: Extremity Problem,Nontraumatic Stated complaint: Right knee pain Time Seen by Provider: 05/24/21 02:26 Source: patient, RN notes reviewed, old records reviewed Mode of arrival: wheelchair Limitations: no limitations - History of Present Illness MD Complaint: extremity pain, extremity swelling, joint pain -: days(s) Location: right, lower extremity, knee -: Yes myalgia, Yes arthralgia Radiation: proximal Severity scale (1-10): 9 Quality: stabbing, aching Consistency: intermittent Improves with: nothing Worsens with: palpation Associated Symptoms: denies other symptoms - Related Data Home Medications Medication Instructions Recorded Confirmed Albuterol Sulfate [Proair Hfa] 2 puff INHALATION RT-Q4H PRN 08/17/20 08/25/20 Atorvastatin [Lipitor] 10 mg PO DAILY 08/17/20 08/25/20 Cetirizine HCl 10 mg PO DAILY 08/17/20 08/25/20 Cyclobenzaprine [Flexeril] 10 mg PO BID 08/17/20 08/25/20 Docusate [Colace] 100 mg PO BID 08/17/20 08/25/20 Fluticasone/Salmeterol [Advair 1 puff INHALATION RT-BID 08/17/20 08/25/20 250-50 Diskus] Gabapentin 800 mg PO TID 08/17/20 08/25/20 HYDROcodone/APAP 5-325MG [[place] 1 tab PO TID PRN 08/17/20 08/25/20 5-325] Ibuprofen [Motrin] 600 mg PO TID PRN 08/17/20 08/25/20 Insulin Glargine,Hum.rec.anlog 45 unit SQ HS 08/17/20 08/25/20 [Lantus Solostar Pen] Insulin Glargine,Hum.rec.anlog 50 unit SQ DAILY 08/17/20 08/25/20 [Lantus Solostar Pen] Levothyroxine Sodium 88 mcg PO DAILY 08/17/20 08/25/20 Losartan [Cozaar] 50 mg PO DAILY 08/17/20 08/25/20 Multivit with Calcium,Iron,Min 1 tab PO DAILY 08/17/20 08/25/20 [Women's Multivitamin] Oxybutynin Chloride [Oxybutynin 10 mg PO DAILY 08/17/20 08/25/20 Chloride ER] QUEtiapine [SEROquel] 400 mg PO HS 08/17/20 08/25/20 Topiramate 50 mg PO BID 08/17/20 08/25/20 Triamcinolone 0.1% Cream [Kenalog 1 applic TOPICAL BID 08/17/20 08/25/20 0.1% Cream] metFORMIN HCL [Glucophage] 1,000 mg PO BID 08/17/20 08/25/20 FLUoxetine HCL [PROzac] 20 mg PO DAILY 08/25/20 08/25/20 Previous Rx's Medication Instructions Recorded Sulfamethox-Tmp 800-160Mg [Bactrim 1 tab PO Q12HR #28 tab 08/17/20 DS 800-160 mg] cephALEXin [Keflex] 500 mg PO Q6HR 14 Days #56 cap 08/17/20 Allergies Allergy/AdvReac Type Severity Reaction Status Date / Time No Known Allergies Allergy Verified 05/24/21 02:28 Review of Systems ROS Statement: Those systems with pertinent positive or pertinent negative responses have been documented in the HPI. ROS Other: All systems not noted in ROS Statement are negative. Past Medical History Past Medical History: Diabetes Mellitus, Hypertension History of Any Multi-Drug Resistant Organisms: None Reported Past Surgical History: Back Surgery, Orthopedic Surgery Additional Past Surgical History / Comment(s): rt below knee amp Past Anesthesia/Blood Transfusion Reactions: No Reported Reaction Past Psychological History: Depression Smoking Status: Current every day smoker Past Alcohol Use History: Occasional Past Drug Use History: None Reported General Exam Limitations: no limitations General appearance: alert, in no apparent distress Head exam: Present: atraumatic, normocephalic, normal inspection Eye exam: Present: normal appearance, PERRL, EOMI. Absent: scleral icterus, conjunctival injection, periorbital swelling ENT exam: Present: normal exam, mucous membranes moist Neck exam: Present: normal inspection. Absent: tenderness, meningismus, lymphadenopathy Respiratory exam: Present: normal lung sounds bilaterally. Absent: respiratory distress, wheezes, rales, rhonchi, stridor Cardiovascular Exam: Present: regular rate, normal rhythm, normal heart sounds. Absent: systolic murmur, diastolic murmur, rubs, gallop, clicks GI/Abdominal exam: Present: soft, normal bowel sounds. Absent: distended, tenderness, guarding, rebound, rigid Extremities exam: Present: normal inspection, full ROM, normal capillary refill. Absent: tenderness, pedal edema, joint swelling, calf tenderness Back exam: Present: normal inspection Neurological exam: Present: alert, oriented X3, CN II-XII intact Psychiatric exam: Present: normal affect, normal mood Skin exam: Present: warm, dry, intact, normal color. Absent: rash Course Vital Signs 05/24/21 02:24 Temperature 98.2 F Pulse Rate 86 Respiratory 22 Rate Blood Pressure 149/63 O2 Sat by Pulse 97 Oximetry - Reevaluation(s) Reevaluation #1: 05/24/21 Medical record is reviewed Patient symptoms are improved here in the emergency department Patient is informed results and questions answered Patient is in no acute distress Disposition Clinical Impression: Right leg pain, History of below-knee amputation of right lower extremity Disposition: HOME SELF-CARE Condition: Good Instructions (If sedation given, give patient instructions): Leg Pain (ED) Is patient prescribed a controlled substance at d/c from ED?: No Referrals: Yomi Kennedy MD [Primary Care Provider] - 1-2 days
--- NOTE | 2021-05-24 04:29 | XR ---
EXAMINATION TYPE: XR knee complete RT DATE OF EXAM: 05/24/2021 COMPARISON: NONE HISTORY: Pain TECHNIQUE: 3 views FINDINGS: There is amputation of the lower leg at the mid shaft of the tibia. The knee joint is intac t. I see no fracture nor dislocation. There is calcification of the medial and lateral menisci I see no focal bone destruction. There is no sign of joint effusion. There is vascular calcification. IMPRESSION: No acute abnormality of the right knee. No fracture. No sign of osteomyelitis. Chondrocal cinosis.
== END 2021-05-24 05:20 | disposition home or self-care (01) ==
LOC: EC 02:21
DX: M25.561 Pain in right knee (principal); E11.9 Type 2 diabetes mellitus without complications; I10 Essential (primary) hypertension; F32.9 Major depressive disorder, single episode, unspecified; F17.200 Nicotine dependence, unspecified, uncomplicated; Z89.511 Acquired absence of right leg below knee; Z79.4 Long term (current) use of insulin
CPT/HCPCS: 99283; 96372; 73562; J1170

== ENCOUNTER 2021-09-14 16:07 | Emergency (ER) | payer MEDICARE, OTHER ==
[2021-09-14] MEDS ORDERED: ONDANSETRON ODT 4 MG TAB PO STA (18:37)
[2021-09-14] MEDS ORDERED: HYDROmorphone 0.5 MG/0.5 ML SYRINGE IVP STA ×2 (18:39→20:53)
--- NOTE | 2021-09-14 18:46 | ED ---
Extremity Problem HPI - General Chief complaint: Extremity Problem,Nontraumatic Stated complaint: Back Pain Time Seen by Provider: 09/14/21 18:07 Source: patient Mode of arrival: wheelchair Limitations: no limitations - History of Present Illness Initial comments: This 66-year-old female past medical history of right leg BKA presents the emergency department with lower right back pain radiating down the lateral side of her leg for the past week. Patient states she has been taking her prescribed [place] and ibuprofen which has helped her pain up until today. She has been using ice for her back which seems to help. Patient has had sciatica in the [address]. Patient denies any swelling, erythema, warmth, numbness to back or right leg. Patient denies any fever, chills, chest pain, shortness of breath, abdominal pain, saddle anesthesia, loss of bowel or bladder. - Related Data Home Medications Medication Instructions Recorded Confirmed Albuterol Sulfate [Proair Hfa] 2 puff INHALATION RT-Q4H PRN 08/17/20 08/25/20 Atorvastatin [Lipitor] 10 mg PO DAILY 08/17/20 08/25/20 Cetirizine HCl 10 mg PO DAILY 08/17/20 08/25/20 Cyclobenzaprine [Flexeril] 10 mg PO BID 08/17/20 08/25/20 Docusate [Colace] 100 mg PO BID 08/17/20 08/25/20 Fluticasone/Salmeterol [Advair 1 puff INHALATION RT-BID 08/17/20 08/25/20 250-50 Diskus] Gabapentin 800 mg PO TID 08/17/20 08/25/20 HYDROcodone/APAP 5-325MG [[place] 1 tab PO TID PRN 08/17/20 08/25/20 5-325] Ibuprofen [Motrin] 600 mg PO TID PRN 08/17/20 08/25/20 Insulin Glargine,Hum.rec.anlog 45 unit SQ HS 08/17/20 08/25/20 [Lantus Solostar Pen] Insulin Glargine,Hum.rec.anlog 50 unit SQ DAILY 08/17/20 08/25/20 [Lantus Solostar Pen] Levothyroxine Sodium 88 mcg PO DAILY 08/17/20 08/25/20 Losartan [Cozaar] 50 mg PO DAILY 08/17/20 08/25/20 Multivit with Calcium,Iron,Min 1 tab PO DAILY 08/17/20 08/25/20 [Women's Multivitamin] Oxybutynin Chloride [Oxybutynin 10 mg PO DAILY 08/17/20 08/25/20 Chloride ER] QUEtiapine [SEROquel] 400 mg PO HS 08/17/20 08/25/20 Topiramate 50 mg PO BID 08/17/20 08/25/20 Triamcinolone 0.1% Cream [Kenalog 1 applic TOPICAL BID 08/17/20 08/25/20 0.1% Cream] metFORMIN HCL [Glucophage] 1,000 mg PO BID 08/17/20 08/25/20 FLUoxetine HCL [PROzac] 20 mg PO DAILY 08/25/20 08/25/20 Previous Rx's Medication Instructions Recorded Sulfamethox-Tmp 800-160Mg [Bactrim 1 tab PO Q12HR #28 tab 08/17/20 DS 800-160 mg] cephALEXin [Keflex] 500 mg PO Q6HR 14 Days #56 cap 08/17/20 Cyclobenzaprine [Flexeril] 10 mg PO TID #15 tab 09/14/21 Allergies Allergy/AdvReac Type Severity Reaction Status Date / Time No Known Allergies Allergy Verified 09/14/21 16:55 Review of Systems ROS Statement: Those systems with pertinent positive or pertinent negative responses have been documented in the HPI. ROS Other: All systems not noted in ROS Statement are negative. Past Medical History Past Medical History: Diabetes Mellitus, Hypertension History of Any Multi-Drug Resistant Organisms: None Reported Past Surgical History: Back Surgery, Orthopedic Surgery Additional Past Surgical History / Comment(s): rt below knee amp Past Anesthesia/Blood Transfusion Reactions: No Reported Reaction Past Psychological History: Depression Smoking Status: Current every day smoker, [place] Past Alcohol Use History: Occasional Past Drug Use History: None Reported General Exam Limitations: no limitations General appearance: alert, in no apparent distress Head exam: Present: atraumatic, normocephalic, normal inspection Eye exam: Present: normal appearance, PERRL, EOMI. Absent: scleral icterus, conjunctival injection, periorbital swelling ENT exam: Present: normal exam, mucous membranes moist Neck exam: Present: normal inspection Respiratory exam: Present: normal lung sounds bilaterally. Absent: respiratory distress, wheezes, rales, rhonchi, stridor Cardiovascular Exam: Present: regular rate, normal rhythm, normal heart sounds. Absent: systolic murmur, diastolic murmur, rubs, gallop, clicks GI/Abdominal exam: Present: soft, normal bowel sounds. Absent: distended, tenderness, guarding, rebound, rigid Extremities exam: Present: normal inspection (BKA right leg), full ROM, tenderness (Right lateral side of leg tender to deep palpation), normal capillary refill, other (Right leg with no erythema, warmth/cold, swelling). Absent: pedal edema, joint swelling, calf tenderness Back exam: Present: normal inspection, full ROM, tenderness, paraspinal tenderness. Absent: CVA tenderness (R), CVA tenderness (L), vertebral tenderness (Tender to deep palpation of right hip down the lateral side of the right leg ) Neurological exam: Present: alert, oriented X3, CN II-XII intact Psychiatric exam: Present: normal affect, normal mood Skin exam: Present: warm, dry, intact, normal color. Absent: rash, cyanosis, erythema, petechiae, pallor Course Vital Signs 09/14/21 09/14/21 16:55 23:47 Temperature 99.7 F H 97 F L Pulse Rate 79 83 Respiratory 20 24 Rate Blood Pressure 158/77 136/84 O2 Sat by Pulse 98 98 Oximetry Medical Decision Making - Medical Decision Making This 66-year-old female presents to the emergency department with right lower b ack pain radiating down her leg. Patient has BKA. She states she has had this pain for the last week. Labs revealed white blood cell count of 12.9. Patient given Dilaudid and ice pack which she stated helped her pain decrease. Received right hip x-ray and right femur x-ray with no acute findings. asked if we could do testing for blood clots, venous Doppler showed no blood clots. Flexeril given for home. Return precautions given to the patient if new or worsening symptoms occur. Patient to follow up with primary care provider next 1-2 days. Patient agreed to plan. Patient sent home in stable condition. - Lab Data Result diagrams: 09/14/21 18:59 09/14/21 18:59 Lab Results 09/14/21 09/14/21 09/14/21 Range/Units 18:59 18:59 18:59 WBC (3.8-10.6) k/uL RBC (3.80-5.40) m/uL Hgb (11.4-16.0) gm/dL Hct (34.0-46.0) % MCV (80.0-100.0) fL MCH (25.0-35.0) pg MCHC (31.0-37.0) g/dL RDW (11.5-15.5) % Plt Count (150-450) k/uL MPV Neutrophils % % Lymphocytes % % Monocytes % % Eosinophils % % Basophils % % Neutrophils # (1.3-7.7) k/uL Lymphocytes # (1.0-4.8) k/uL Monocytes # (0-1.0) k/uL Eosinophils # (0-0.7) k/uL Basophils # (0-0.2) k/uL Sodium 131 L (137-145) mmol/L Potassium 4.4 (3.5-5.1) mmol/L Chloride 100 (98-107) mmol/L Carbon Dioxide 21 L (22-30) mmol/L Anion Gap 10 mmol/L BUN 17 (7-17) mg/dL Creatinine 0.86 (0.52-1.04) mg/dL Est GFR (CKD-EPI)AfAm 82 (>60 ml/min/1.73 sqM) Est GFR (CKD-EPI)NonAf 71 (>60 ml/min/1.73 sqM) Glucose 79 (74-99) mg/dL POC Glucose (mg/dL) (75-99) mg/dL POC Glu Rn Coronary Care Unit ID Plasma Lactic Acid Kashif 1.0 (0.7-2.0) mmol/L Calcium 8.8 (8.4-10.2) mg/dL Total Bilirubin 0.2 (0.2-1.3) mg/dL AST 23 (14-36) U/L ALT 19 (4-34) U/L Alkaline Phosphatase 87 (38-126) U/L C-Reactive Protein 0.7 (<1.0) mg/dL Total Protein 7.2 (6.3-8.2) g/dL Albumin 4.1 (3.5-5.0) g/dL Urine Color Light Yellow Urine Appearance Clear (Clear) Urine pH 6.0 (5.0-8.0) Ur Specific [place] 1.005 (1.001-1.035) Urine Protein 2+ H (Negative) Urine Glucose (UA) Negative (Negative) Urine Ketones Negative (Negative) Urine Blood Negative (Negative) Urine Nitrite Negative (Negative) Urine Bilirubin Negative (Negative) Urine Urobilinogen <2.0 (<2.0) mg/dL Ur Leukocyte Esterase Negative (Negative) Urine WBC <1 (0-5) /hpf Ur Squamous Epith Cells <1 (0-4) /hpf Coronavirus (PCR) (Not Detectd) 09/14/21 09/14/21 09/14/21 Range/Units 18:59 18:59 20:17 WBC 12.9 H (3.8-10.6) k/uL RBC 3.96 (3.80-5.40) m/uL Hgb 11.7 (11.4-16.0) gm/dL Hct 35.1 (34.0-46.0) % MCV 88.8 (80.0-100.0) fL MCH 29.6 (25.0-35.0) pg MCHC 33.3 (31.0-37.0) g/dL RDW 14.9 (11.5-15.5) % Plt Count 257 (150-450) k/uL MPV 6.5 Neutrophils % 65 % Lymphocytes % 22 % Monocytes % 5 % Eosinophils % 7 % Basophils % 1 % Neutrophils # 8.3 H (1.3-7.7) k/uL Lymphocytes # 2.8 (1.0-4.8) k/uL Monocytes # 0.7 (0-1.0) k/uL Eosinophils # 0.9 H (0-0.7) k/uL Basophils # 0.1 (0-0.2) k/uL Sodium (137-145) mmol/L Potassium (3.5-5.1) mmol/L Chloride (98-107) mmol/L Carbon Dioxide (22-30) mmol/L Anion Gap mmol/L BUN (7-17) mg/dL Creatinine (0.52-1.04) mg/dL Est GFR (CKD-EPI)AfAm (>60 ml/min/1.73 sqM) Est GFR (CKD-EPI)NonAf (>60 ml/min/1.73 sqM) Glucose (74-99) mg/dL POC Glucose (mg/dL) 75 (75-99) mg/dL POC Glu Rn Coronary Care Unit ID [place] Plasma Lactic Acid Kashif (0.7-2.0) mmol/L Calcium (8.4-10.2) mg/dL Total Bilirubin (0.2-1.3) mg/dL AST (14-36) U/L ALT (4-34) U/L Alkaline Phosphatase (38-126) U/L C-Reactive Protein (<1.0) mg/dL Total Protein (6.3-8.2) g/dL Albumin (3.5-5.0) g/dL Urine Color Urine Appearance (Clear) Urine pH (5.0-8.0) Ur Specific [place] (1.001-1.035) Urine Protein (Negative) Urine Glucose (UA) (Negative) Urine Ketones (Negative) Urine Blood (Negative) Urine Nitrite (Negative) Urine Bilirubin (Negative) Urine Urobilinogen (<2.0) mg/dL Ur Leukocyte Esterase (Negative) Urine WBC (0-5) /hpf Ur Squamous Epith Cells (0-4) /hpf Coronavirus (PCR) Not Detected (Not Detectd) Disposition Clinical Impression: Sciatica Disposition: HOME SELF-CARE Condition: Stable Instructions (If sedation given, give patient instructions): Sciatica (ED) Additional Instructions: Return to the emergency department if new or worsening symptoms occur. Please follow up with primary care provider in next 1-2 days. Prescriptions: Cyclobenzaprine [Flexeril] 10 mg PO TID #15 tab Is patient prescribed a controlled substance at d/c from ED?: No Referrals: Yomi Kennedy MD [Primary Care Provider] - 1-2 days Time of Disposition: 23:45
[2021-09-14 19:13] LABS: Basophils # (A) 0.1 k/uL (0-0.2); Basophils % (A) 1 %; Eosinophils # (A) 0.9 k/uL (0-0.7); Eosinophils % (A) 7 %; HCT 35.1 % (34.0-46.0); HGB 11.7 gm/dL (11.4-16.0); Lymphocytes # (A) 2.8 k/uL (1.0-4.8); Lymphocytes % (A) 22 %; MCH 29.6 pg (25.0-35.0); MCHC 33.3 g/dL (31.0-37.0); MCV 88.8 fL (80.0-100.0); Mean Platelet Volume 6.5; Monocytes # (A) 0.7 k/uL (0-1.0); Monocytes % (A) 5 %; Neutrophils # (A) 8.3 k/uL (1.3-7.7); Neutrophils % (A) 65 %; Platelet Count 257 k/uL (150-450); RBC 3.96 m/uL (3.80-5.40); RDW 14.9 % (11.5-15.5); WBC 12.9 k/uL (3.8-10.6)
[2021-09-14 19:27] LABS: Albumin 4.1 g/dL (3.5-5.0); C Reactive Protein 0.7 mg/dL (<1.0); Calcium 8.8 mg/dL (8.4-10.2); Potassium 4.4 mmol/L (3.5-5.1); Total Bilirubin 0.2 mg/dL (0.2-1.3); Total Protein 7.2 g/dL (6.3-8.2)
[2021-09-14 20:18] LABS: Glucose,Whole Blood 75 mg/dL (75-99)
[2021-09-14 20:25] LABS: Appearance,Urine Clear (Clear); Bilirubin,Urine Negative (Negative); Blood,Urine Negative (Negative); Color,Urine Light Yellow; Glucose,Urine (UA) Negative (Negative); Ketones,Urine Negative (Negative); Leukocyte Esterase,Urine Negative (Negative); Nitrite,Urine Negative (Negative); Protein,Urine 2+ (Negative); Specific Gravity,Urine 1.005 (1.001-1.035); Squamous Epithelial Cell,Urine <1 /hpf (0-4); Urobilinogen,Urine <2.0 mg/dL (<2.0); WBC,Urine <1 /hpf (0-5)
--- NOTE | 2021-09-14 21:58 | XR ---
EXAMINATION TYPE: XR Hip Complete RT DATE OF EXAM: 09/14/2021 CLINICAL HISTORY: pain TECHNIQUE: AP and frogleg views of the right hip are obtained. COMPARISON: None. FINDINGS: There is no acute fracture/dislocation evident. The joint space appears within normal li mits. The overlying soft tissue appears unremarkable. IMPRESSION: 1. There is no acute fracture or dislocation. ICD 10 NO FRACTURE, INITIAL EVALUATION
--- NOTE | 2021-09-14 21:59 | XR ---
EXAMINATION TYPE: XR femur RT DATE OF EXAM: 09/14/2021 CLINICAL HISTORY: pain TECHNIQUE: Two views of the right femur are obtained. COMPARISON: None. FINDINGS: There is no acute fracture or dislocation seen of the femur. The hip and knee joints appear within normal limits. The overlying soft tissue appears unremarkable. Below the knee amputation noted. IMPRESSION: There is no acute fracture or dislocation seen of the femur. ICD 10 NO FRACTURE, INITIAL EVALUATION
--- NOTE | 2021-09-14 23:34 | US ---
EXAMINATION TYPE: US venous doppler duplex LE RT DATE OF EXAM: 09/14/2021 11:20 PM COMPARISON: NONE CLINICAL HISTORY: right leg pain . Right leg pain. No hx of DVT. Right below knee amputation. SIDE PERFORMED: Right TECHNIQUE: The lower extremity deep venous system is examined utilizing real time linear array sonog jude with graded compression, doppler sonography and color-flow sonography. VESSELS IMAGED: Common Femoral Vein Deep Femoral Vein Greater Saphenous Vein * Femoral Vein Popliteal Vein Small Saphenous Vein * Proximal Calf Veins (* superficial vessels) Right Leg: Limited due to shadowing from artery. No evidence of DVT in veins imaged at this time. [place] visibility of prox calf veins. IMPRESSION: No evidence of deep vein thrombosis in the right leg.
[2021-09-14 23:47] VITALS: BP 136/84; PULSE 83; RESP 24; TEMP 97
== END 2021-09-14 23:47 | disposition home or self-care (01) ==
LOC: EC 16:07
DX: M54.30 Sciatica, unspecified side (principal); E11.9 Type 2 diabetes mellitus without complications; I10 Essential (primary) hypertension; M79.604 Pain in right leg; F32.A Depression, unspecified; F17.290 Nicotine dependence, other tobacco product, uncomplicated; Z72.89 Other problems related to lifestyle; Z79.84 Long term (current) use of oral hypoglycemic drugs; Z79.4 Long term (current) use of insulin; Z79.899 Other long term (current) drug therapy
CPT/HCPCS: 99284 ×2; 96374 ×2; 96376 ×2; 93971; J1170; 36415; 73502; 80053; 81001; 83605; 85025; 86140; 87635

== ENCOUNTER 2021-10-12 14:36 | Emergency (ER) | payer MEDICARE, OTHER ==
[2021-10-12 14:48] VITALS: BP 131/68; PULSE 101; RESP 20; TEMP 98.2
--- NOTE | 2021-10-12 15:12 | ED ---
General Adult HPI - General Chief complaint: Recheck/Abnormal Lab/Rx Stated complaint: Covid exposure/symptoms Time Seen by Provider: 10/12/21 15:09 Source: patient Mode of arrival: wheelchair Limitations: no limitations - History of Present Illness Initial comments: 66-year-old female with a past medical history of COPD, diabetes mellitus, hypertension presents to the emergency room for cough. Patient states she has had a cough for about 5 days now. Denies fevers or chills. Denies shortness of breath. Patient states she would like a COVID-19 test because she was exposed just before she developed this cough.Patient has no other complaints at this time including shortness of breath, chest pain, abdominal pain, nausea or vomiting, headache, or visual changes. - Related Data Home Medications Medication Instructions Recorded Confirmed Cetirizine HCl 10 mg PO BID 08/17/20 10/12/21 Fluticasone/Salmeterol [Advair 1 puff INHALATION RT-BID 08/17/20 10/12/21 250-50 Diskus] Gabapentin 800 mg PO TID 08/17/20 10/12/21 Ibuprofen [Motrin] 600 mg PO TID PRN 08/17/20 10/12/21 Insulin Glargine,Hum.rec.anlog 55 unit SQ BID 08/17/20 10/12/21 [Lantus Solostar Pen] Losartan [Cozaar] 50 mg PO DAILY 08/17/20 10/12/21 Oxybutynin Chloride [Oxybutynin 10 mg PO DAILY 08/17/20 10/12/21 Chloride ER] Topiramate 50 mg PO BID 08/17/20 10/12/21 metFORMIN HCL [Glucophage] 1,000 mg PO BID 08/17/20 10/12/21 Cyclobenzaprine [Flexeril] 10 mg PO TID PRN 09/17/21 10/12/21 FLUoxetine HCL [PROzac] 40 mg PO DAILY 09/17/21 10/12/21 Fluocinolone 0.01% Body Oil 1 applic TOPICAL BID 09/17/21 10/12/21 Fluticasone Nasal [place] [Flonase 1 - 2 spr EA NOSTRIL HS 09/17/21 10/12/21 Nasal [place]] HYDROcodone/APAP 7.5-325MG [[place] 1 tab PO Q6HR PRN 10/12/21 10/12/21 7.5-325] Previous Rx's Medication Instructions Recorded predniSONE 50 mg PO DAILY #5 tablet 10/12/21 Allergies Allergy/AdvReac Type Severity Reaction Status Date / Time No Known Allergies Allergy Verified 10/12/21 14:44 Review of Systems ROS Statement: Those systems with pertinent positive or pertinent negative responses have been documented in the HPI. ROS Other: All systems not noted in ROS Statement are negative. Past Medical History Past Medical History: COPD, Diabetes Mellitus, Hypertension History of Any Multi-Drug Resistant Organisms: None Reported Past Surgical History: Back Surgery, Orthopedic Surgery Additional Past Surgical History / Comment(s): rt below knee amp Past Anesthesia/Blood Transfusion Reactions: No Reported Reaction Past Psychological History: Depression Smoking Status: Current every day smoker, Vaper Past Alcohol Use History: Occasional Past Drug Use History: None Reported General Exam Limitations: no limitations General appearance: alert, in no apparent distress Head exam: Present: atraumatic Eye exam: Present: normal appearance, PERRL, EOMI. Absent: scleral icterus, conjunctival injection ENT exam: Present: normal exam, mucous membranes moist Neck exam: Present: normal inspection, full ROM. Absent: tenderness Respiratory exam: Present: normal lung sounds bilaterally. Absent: respiratory distress, wheezes Cardiovascular Exam: Present: regular rate, normal rhythm, normal heart sounds GI/Abdominal exam: Present: soft, normal bowel sounds. Absent: distended, tenderness Neurological exam: Present: alert Course Vital Signs 10/12/21 14:45 Temperature 98.2 F Pulse Rate 101 H Respiratory 20 Rate Blood Pressure 131/68 O2 Sat by Pulse 98 Oximetry Medical Decision Making - Medical Decision Making Vitals are stable. Patient is well-appearing. Coronavirus is negative. Chest x-ray shows stable cardiomegaly. pt will be treated For COPD exacerbation with prednisone. Upon discharge patient is requesting a urinalysis be completed as she has had cloudy urine. we will contact her if culture comes back positive - Lab Data Lab Results 10/12/21 Range/Units 14:52 Coronavirus (PCR) Not Detected (Not Detectd) Disposition Clinical Impression: Lab test negative for COVID-19 virus, Cough, COPD exacerbation Disposition: HOME SELF-CARE Condition: Good Instructions (If sedation given, give patient instructions): Coronavirus Disease 2019 (COVID-19), COPD (Chronic Obstructive Pulmonary Disease) (ED) Additional Instructions: Continue your breathing treatments at home. Take medications as directed. Please follow up with your doctor in one to 2 days. Return to the emergency room for any worsening symptoms. Prescriptions: predniSONE 50 mg PO DAILY #5 tablet Is patient prescribed a controlled substance at d/c from ED?: No Referrals: Yomi Kennedy MD [Primary Care Provider] - 1-2 days Time of Disposition: 15:11
--- NOTE | 2021-10-12 16:17 | XR ---
EXAMINATION TYPE: XR chest 2V DATE OF EXAM: 10/12/2021 COMPARISON: Chest x-ray 09/17/2021 HISTORY: Cough, sore throat, history COPD TECHNIQUE: Frontal and lateral views of the chest are obtained. FINDINGS: There is no focal air space opacity, pleural effusion, or pneumothorax seen. The cardiac silhouette size is stable, heart is enlarged. Technique is apical lordotic. Prominent lung volume may be indicative of underlying COPD. The osseous structures are intact. IMPRESSION: Stable cardiomegaly
[2021-10-12] MEDS ORDERED: predniSONE 50 MG TAB PO STA (16:52)
[2021-10-12 17:42] LABS: Appearance,Urine Cloudy (Clear); Bacteria,Urine Rare /hpf; Bilirubin,Urine Negative (Negative); Blood,Urine Trace (Negative); Color,Urine Yellow; Glucose,Urine (UA) Negative (Negative); Hyaline Casts,Urine 1 /lpf (0-2); Ketones,Urine Negative (Negative); Leukocyte Esterase,Urine Large (Negative); Nitrite,Urine Positive (Negative); PH, Urine 5.5 (5.0-8.0); Protein,Urine 1+ (Negative); RBC,Urine 7 /hpf (0-5); Specific Gravity,Urine 1.015 (1.001-1.035); Squamous Epithelial Cell,Urine 1 /hpf (0-4); Urobilinogen,Urine <2.0 mg/dL (<2.0); WBC,Urine 145 /hpf (0-5)
== END 2021-10-12 17:16 | disposition home or self-care (01) ==
LOC: EC 14:36
DX: J44.1 Chronic obstructive pulmonary disease with (acute) exacerbation (principal); E11.9 Type 2 diabetes mellitus without complications; I10 Essential (primary) hypertension; F32.A Depression, unspecified; F17.200 Nicotine dependence, unspecified, uncomplicated; Z20.822 Contact with and (suspected) exposure to COVID-19; Z79.4 Long term (current) use of insulin; Z79.84 Long term (current) use of oral hypoglycemic drugs
CPT/HCPCS: 71046; 81001; 87086; 87635; 99283

== ENCOUNTER 2021-10-27 10:41 | Emergency (ER) | payer MEDICARE, OTHER ==
[2021-10-27 10:49] VITALS: BP 136/63; PULSE 61; RESP 18; TEMP 98.6
--- NOTE | 2021-10-27 11:41 | ED ---
Back Pain HPI - General Chief Complaint: Back Pain/Injury Stated Complaint: L arm/back pain Time Seen by Provider: 10/27/21 11:01 Source: patient, family Limitations: no limitations - History of Present Illness Initial Comments: Patient is a 66-year-old female who presents to the emergency department with complaints of tailbone pain and left arm pain. States that about a week ago she started using a rowing machine.. She had no pain during the exercise, however afterwards she developed the pain in the tailbone. She rates the pain at a 10 out of 10, and states that it has been constant since then. This does not improve with ibuprofen or her prescription for Crosby. About 6 years ago she broke her left shoulder. Since then, she has experienced constant pain as well. Has not followed up with orthopedics since the initial injury. States that she was told her arm would never heal correctly. This has also gotten worse over the last week since she started exercising. She is unable to fully lift her arm. MD Complaint: back pain Onset/Timin -: days(s) Place: home Radiation: none Severity: severe Severity scale (1-10): 10 Quality: sharp, stabbing, aching Consistency: constant Improves With: none Worsens With: none Context: other (After using rowing machine) Associated Symptoms: denies other symptoms - Related Data Home Medications Medication Instructions Recorded Confirmed Cetirizine HCl 10 mg PO BID 08/17/20 10/12/21 Fluticasone/Salmeterol [Advair 1 puff INHALATION RT-BID 08/17/20 10/12/21 250-50 Diskus] Gabapentin 800 mg PO TID 08/17/20 10/12/21 Ibuprofen [Motrin] 600 mg PO TID PRN 08/17/20 10/12/21 Insulin Glargine,Hum.rec.anlog 55 unit SQ BID 08/17/20 10/12/21 [Lantus Solostar Pen] Losartan [Cozaar] 50 mg PO DAILY 08/17/20 10/12/21 Oxybutynin Chloride [Oxybutynin 10 mg PO DAILY 08/17/20 10/12/21 Chloride ER] Topiramate 50 mg PO BID 08/17/20 10/12/21 metFORMIN HCL [Glucophage] 1,000 mg PO BID 08/17/20 10/12/21 Cyclobenzaprine [Flexeril] 10 mg PO TID PRN 09/17/21 10/12/21 FLUoxetine HCL [PROzac] 40 mg PO DAILY 09/17/21 10/12/21 Fluocinolone 0.01% Body Oil 1 applic TOPICAL BID 09/17/21 10/12/21 Fluticasone Nasal [place] [Flonase 1 - 2 spr EA NOSTRIL HS 09/17/21 10/12/21 Nasal [place]] HYDROcodone/APAP 7.5-325MG [[place] 1 tab PO Q6HR PRN 10/12/21 10/12/21 7.5-325] Previous Rx's Medication Instructions Recorded predniSONE 50 mg PO DAILY #5 tablet 10/12/21 Allergies Allergy/AdvReac Type Severity Reaction Status Date / Time No Known Allergies Allergy Verified 10/27/21 10:49 Review of Systems ROS Statement: Those systems with pertinent positive or pertinent negative responses have been documented in the HPI. ROS Other: All systems not noted in ROS Statement are negative. Constitutional: Denies: fever, chills Respiratory: Denies: cough, dyspnea Cardiovascular: Denies: chest pain, palpitations Gastrointestinal: Reports: other (denies loss of bowel control.). Denies: abdominal pain, nausea, vomiting Genitourinary: Reports: other (Denies loss of bladder control.). Denies: urgency, dysuria Musculoskeletal: Reports: back pain, other (left arm/shoulder pain) Skin: Denies: rash, lesions Neurological: Reports: other (No saddle anesthesia). Denies: headache, numbness, paresthesias Past Medical History Past Medical History: COPD, Diabetes Mellitus, Hypertension History of Any Multi-Drug Resistant Organisms: None Reported Past Surgical History: Back Surgery, Orthopedic Surgery Additional Past Surgical History / Comment(s): rt below knee amp Past Anesthesia/Blood Transfusion Reactions: No Reported Reaction Past Psychological History: Depression Smoking Status: Current every day smoker, Vaper Past Alcohol Use History: Occasional Past Drug Use History: None Reported General Exam Limitations: no limitations General appearance: alert, in distress Head exam: Present: atraumatic, normocephalic Respiratory exam: Present: normal lung sounds bilaterally. Absent: respiratory distress, wheezes, rales, rhonchi, stridor Cardiovascular Exam: Present: regular rate, normal rhythm, normal heart sounds. Absent: systolic murmur, diastolic murmur, rubs, gallop, clicks Left Shoulder Exam: Present: normal inspection. Absent: full ROM, tenderness, swelling Back exam: Present: normal inspection, tenderness (coccyx) Neurological exam: Present: alert, oriented X3, CN II-XII intact Skin exam: Present: warm, dry, intact, normal color. Absent: rash Course Vital Signs 10/27/21 10:43 Temperature 98.6 F Pulse Rate 61 Respiratory 18 Rate Blood Pressure 136/63 O2 Sat by Pulse 98 Oximetry - Reevaluation(s) Time: 12:54 (Resting in bed, still in significant pain) Medical Decision Making - Medical Decision Making Patient was extremely tender to palpation of the coccyx on exam. X-ray was obtained which revealed a fracture of the sacrococcygeal junction. Patient given an injection of morphine 2 mg. She was advised follow-up with her pain management physician, Dr. Kennedy, to discuss temporarily increasing her Crosby dosage given her recent injury. Her left shoulder also exhibits significantly restricted range of motion. X-ray consistent with malalignment of the old fracture and osteoarthritis. Patient encouraged to follow up with Dr. Nicholas orthopedics, who she has seen in the past, to discuss options for pain management Disposition Clinical Impression: Fractured coccyx Disposition: HOME SELF-CARE Condition: Stable Instructions (If sedation given, give patient instructions): Sacral Fracture (ED) Additional Instructions: Return to the ER if symptoms worsen or do not improve. Contact pain management physician, Dr. Kennedy, to discuss increases and pain medication given recent injury. Also follow up with orthopedics Dr. Nicholas, regarding persistent shoulder pain. Is patient prescribed a controlled substance at d/c from ED?: No Referrals: Yomi Kennedy MD [Primary Care Provider] - 1-2 days
--- NOTE | 2021-10-27 12:01 | XR ---
EXAMINATION TYPE: XR shoulder complete LT, XR humerus LT DATE OF EXAM: 10/27/2021 CLINICAL HISTORY: Worsening pain after injury last week. TECHNIQUE: Three views of the left shoulder are obtained. 2 views of the left humerus. COMPARISON: None. FINDINGS: Osseous structures are demineralized. There is no acute fracture/dislocation evident in th e left shoulder. Old malunion fracture left proximal humerus. Moderate narrowing of the acromioclavic ular joint. [id number] superior capsular hypertrophy. Severe narrowing glenohumeral joint. T he visualized ribs are intact . Images of the left humerus show no acute fracture or dislocation distally. Overlying soft tissue is u nremarkable. IMPRESSION: There is no acute fracture or dislocation in the left humerus or shoulder.
--- NOTE | 2021-10-27 12:22 | XR ---
EXAMINATION TYPE: XR sacrum coccyx DATE OF EXAM: 10/27/2021 COMPARISON: NONE HISTORY: 66-year-old female acute pain TECHNIQUE: 3 views FINDINGS: Partially visualized lower lumbar posterior fusion hardware. There is degenerative disc disease at L5 -S1 noted. Osteopenia. There is 4 mm step-off with posterior displacement near the sacrococcygeal antoinette ction. IMPRESSION: 1. 4 mm of posterior step-off near the sacrococcygeal junction. Correlate for age indeterminate tail bone fracture. 2. Moderate to advanced degenerative disc disease L5-S1 with partially visualized posterior lumbar fu julio hardware.
[2021-10-27] MEDS ORDERED: MORPHINE SULFATE 2 MG/ML SYRINGE IM STA (12:51)
== END 2021-10-27 13:36 | disposition home or self-care (01) ==
LOC: EC 10:41
DX: S32.2XXA Fracture of coccyx, initial encounter for closed fracture (principal); J44.9 Chronic obstructive pulmonary disease, unspecified; E11.9 Type 2 diabetes mellitus without complications; I10 Essential (primary) hypertension; F32.A Depression, unspecified; F17.200 Nicotine dependence, unspecified, uncomplicated; Z79.4 Long term (current) use of insulin; Z79.84 Long term (current) use of oral hypoglycemic drugs; X58.XXXA Exposure to other specified factors, initial encounter
CPT/HCPCS: 99283; 96372; 72220; 73030; 73060; J2270

== ENCOUNTER 2021-12-14 14:40 | Inpatient (IN) | payer MEDICARE, OTHER ==
[2021-12-14] MEDS ORDERED: ALBUTEROL HFA INHALER INHALATION STA (18:10)
[2021-12-14] MEDS ORDERED: methylPREDNISolone SOD SUCCI 125 MG/2 ML VIAL IV STA (18:10)
--- NOTE | 2021-12-14 18:15 | ED ---
General Adult HPI - General Chief complaint: Upper Respiratory Infection Stated complaint: Cough, COPD Time Seen by Provider: 12/14/21 18:08 Source: patient, family, RN notes reviewed, old records reviewed Mode of arrival: wheelchair - History of Present Illness Initial comments: 66-year-old female, alert and oriented 4, presents with family member complaining of 5 days of cough. Patient denies any fevers, no chest pain, no nausea vomiting or diarrhea. She states that she has been vaccinated against coronavirus and influenza. She states it is a dry cough nonproductive. She does not smoke cigarettes but she does vape. She states that she does have a history of COPD but has not been hospitalized for it. She uses daily albuterol nebulizer but does not take any daily inhaled corticosteroids. She states that she was told to stop using her Advair and only use albuterol daily. She has a history of diabetes and hypertension. She has a right BKA in 2018. -: days(s) (5) Severity scale (1-10): 0 Associated Symptoms: cough - Related Data Home Medications Medication Instructions Recorded Confirmed Cetirizine HCl 10 mg PO BID 08/17/20 10/12/21 Fluticasone/Salmeterol [Advair 1 puff INHALATION RT-BID 08/17/20 10/12/21 250-50 Diskus] Gabapentin 800 mg PO TID 08/17/20 10/12/21 Ibuprofen [Motrin] 600 mg PO TID PRN 08/17/20 10/12/21 Insulin Glargine,Hum.rec.anlog 55 unit SQ BID 08/17/20 10/12/21 [Lantus Solostar Pen] Losartan [Cozaar] 50 mg PO DAILY 08/17/20 10/12/21 Oxybutynin Chloride [Oxybutynin 10 mg PO DAILY 08/17/20 10/12/21 Chloride ER] Topiramate 50 mg PO BID 08/17/20 10/12/21 metFORMIN HCL [Glucophage] 1,000 mg PO BID 08/17/20 10/12/21 Cyclobenzaprine [Flexeril] 10 mg PO TID PRN 09/17/21 10/12/21 FLUoxetine HCL [PROzac] 40 mg PO DAILY 09/17/21 10/12/21 Fluocinolone 0.01% Body Oil 1 applic TOPICAL BID 09/17/21 10/12/21 Fluticasone Nasal [place] [Flonase 1 - 2 spr EA NOSTRIL HS 09/17/21 10/12/21 Nasal [place]] HYDROcodone/APAP 7.5-325MG [[place] 1 tab PO Q6HR PRN 10/12/21 10/12/21 7.5-325] Previous Rx's Medication Instructions Recorded predniSONE 50 mg PO DAILY #5 tablet 10/12/21 Allergies Allergy/AdvReac Type Severity Reaction Status Date / Time No Known Allergies Allergy Verified 12/14/21 14:49 Review of Systems ROS Statement: Those systems with pertinent positive or pertinent negative responses have been documented in the HPI. ROS Other: All systems not noted in ROS Statement are negative. Past Medical History Past Medical History: COPD, Diabetes Mellitus, Hypertension History of Any Multi-Drug Resistant Organisms: None Reported Past Surgical History: Back Surgery, Orthopedic Surgery Additional Past Surgical History / Comment(s): rt below knee amp Past Anesthesia/Blood Transfusion Reactions: No Reported Reaction Past Psychological History: Depression Smoking Status: Former smoker Past Alcohol Use History: Occasional Past Drug Use History: None Reported General Exam Limitations: no limitations General appearance: alert, in no apparent distress Head exam: Present: atraumatic, normocephalic, normal inspection Eye exam: Present: normal appearance. Absent: scleral icterus, conjunctival injection ENT exam: Present: normal exam, normal oropharynx, mucous membranes moist Neck exam: Present: normal inspection, full ROM. Absent: tenderness, meningismus, lymphadenopathy, thyromegaly Respiratory exam: Present: normal lung sounds bilaterally. Absent: respiratory distress, wheezes, rales, rhonchi, stridor, chest wall tenderness, accessory muscle use, decreased breath sounds Cardiovascular Exam: Present: tachycardia, normal heart sounds. Absent: JVD GI/Abdominal exam: Present: soft. Absent: distended, tenderness Extremities exam: Present: normal capillary refill, other (right BKA). Absent: pedal edema Back exam: Absent: tenderness, CVA tenderness (R), CVA tenderness (L) Neurological exam: Present: alert, oriented X3 Psychiatric exam: Present: normal affect, normal mood Skin exam: Present: warm, dry, normal color. Absent: cyanosis, diaphoretic, erythema, petechiae, pallor Course Vital Signs 12/14/21 12/14/21 12/14/21 14:45 17:49 18:50 Temperature 99.4 F Pulse Rate 122 H 110 H Respiratory 24 20 20 Rate Blood Pressure 160/47 O2 Sat by Pulse 98 99 Oximetry 12/14/21 18:58 Temperature 98.1 F Pulse Rate 108 H Respiratory 15 Rate Blood Pressure 172/84 O2 Sat by Pulse 99 Oximetry EKG Findings - EKG Results: EKG: sinus rhythm (Ventricular rate of 105, P irritable 0.177, QRS 0.88, QTc 0.402) Medical Decision Making - Medical Decision Making 66-year-old female presents with 5 days of nonproductive cough. She denies any fevers, no nausea, vomiting, diarrhea or chest pain. She has been vaccinated against coronavirus and influenza. Chest x-ray shows no cardiopulmonary disease, lungs are clear. Lungs sounds are clear to auscultation. No pedal edema noted. EKG shows sinus tachycardia 105, troponin negative at 0.012. D-dimer is elevated 0.60 although age-appropriate. Lactic acid is 2.17 patient was given a liter of normal saline, and started at 130cc/hr. She is hyponatremic at 125 however previous labs show she has been hyponatremic in the past. Her magnesium was low and she was given Mag-Ox. Influenza A, B and coronavirus swab negative. Patient was given a gram of Rocephin IV for COPD exacerbation with clinical pneumonia, low grade fever and leukocytosis. Repeat heart rate 99. Patient was offered observation in the hospital and she agreed. Case discussed with Dr. Kennedy, IV fluids were started, blood culture, urine culture and antibiotics done. - Lab Data Result diagrams: 12/14/21 18:19 12/14/21 18:19 Lab Results 12/14/21 12/14/21 12/14/21 Range/Units 18:19 18:19 18:19 WBC 16.4 H (3.8-10.6) k/uL RBC 4.20 (3.80-5.40) m/uL Hgb 12.9 (11.4-16.0) gm/dL Hct 37.2 (34.0-46.0) % MCV 88.5 (80.0-100.0) fL MCH 30.7 (25.0-35.0) pg MCHC 34.7 (31.0-37.0) g/dL RDW 14.2 (11.5-15.5) % Plt Count 334 (150-450) k/uL MPV 6.1 Neutrophils % 81 % Lymphocytes % 11 % Monocytes % 4 % Eosinophils % 2 % Basophils % 1 % Neutrophils # 13.3 H (1.3-7.7) k/uL Lymphocytes # 1.9 (1.0-4.8) k/uL Monocytes # 0.6 (0-1.0) k/uL Eosinophils # 0.3 (0-0.7) k/uL Basophils # 0.1 (0-0.2) k/uL PT 9.7 (9.0-12.0) sec INR 0.9 (<1.2) APTT 25.9 (22.0-30.0) sec D-Dimer 0.60 H (<0.60) mg/L FEU Sodium (137-145) mmol/L Potassium (3.5-5.1) mmol/L Chloride (98-107) mmol/L Carbon Dioxide (22-30) mmol/L Anion Gap mmol/L BUN (7-17) mg/dL Creatinine (0.52-1.04) mg/dL Est GFR (CKD-EPI)AfAm (>60 ml/min/1.73 sqM) Est GFR (CKD-EPI)NonAf (>60 ml/min/1.73 sqM) Glucose (74-99) mg/dL Plasma Lactic Acid [place] (0.7-2.0) mmol/L Calcium (8.4-10.2) mg/dL Magnesium (1.6-2.3) mg/dL Total Bilirubin (0.2-1.3) mg/dL AST (14-36) U/L ALT (4-34) U/L Alkaline Phosphatase (38-126) U/L Troponin I (0.000-0.034) ng/mL NT-Pro-B Natriuret Pep pg/mL Total Protein (6.3-8.2) g/dL Albumin (3.5-5.0) g/dL Urine Color Light Yellow Urine Appearance Clear (Clear) Urine pH 6.5 (5.0-8.0) Ur Specific [place] 1.009 (1.001-1.035) Urine Protein 1+ H (Negative) Urine Glucose (UA) Negative (Negative) Urine Ketones Negative (Negative) Urine Blood Small H (Negative) Urine Nitrite Negative (Negative) Urine Bilirubin Negative (Negative) Urine Urobilinogen <2.0 (<2.0) mg/dL Ur Leukocyte Esterase Negative (Negative) Urine RBC <1 (0-5) /hpf Urine WBC 2 (0-5) /hpf Ur Squamous Epith Cells 2 (0-4) /hpf Influenza Type A (PCR) (Not Detectd) Influenza Type B (PCR) (Not Detectd) RSV (PCR) (Not Detectd) SARS-CoV-2 (PCR) (Not Detectd) 12/14/21 12/14/21 12/14/21 Range/Units 18:19 18:19 18:19 WBC (3.8-10.6) k/uL RBC (3.80-5.40) m/uL Hgb (11.4-16.0) gm/dL Hct (34.0-46.0) % MCV (80.0-100.0) fL MCH (25.0-35.0) pg MCHC (31.0-37.0) g/dL RDW (11.5-15.5) % Plt Count (150-450) k/uL MPV Neutrophils % % Lymphocytes % % Monocytes % % Eosinophils % % Basophils % % Neutrophils # (1.3-7.7) k/uL Lymphocytes # (1.0-4.8) k/uL Monocytes # (0-1.0) k/uL Eosinophils # (0-0.7) k/uL Basophils # (0-0.2) k/uL PT (9.0-12.0) sec INR (<1.2) APTT (22.0-30.0) sec D-Dimer (<0.60) mg/L FEU Sodium 125 L (137-145) mmol/L Potassium 4.2 (3.5-5.1) mmol/L Chloride 96 L (98-107) mmol/L Carbon Dioxide 17 L (22-30) mmol/L Anion Gap 12 mmol/L BUN 11 (7-17) mg/dL Creatinine 0.97 (0.52-1.04) mg/dL Est GFR (CKD-EPI)AfAm 71 (>60 ml/min/1.73 sqM) Est GFR (CKD-EPI)NonAf 61 (>60 ml/min/1.73 sqM) Glucose 112 H (74-99) mg/dL Plasma Lactic Acid [place] 2.7 H* (0.7-2.0) mmol/L Calcium 8.7 (8.4-10.2) mg/dL Magnesium 1.5 L (1.6-2.3) mg/dL Total Bilirubin 0.4 (0.2-1.3) mg/dL AST 26 (14-36) U/L ALT 21 (4-34) U/L Alkaline Phosphatase 117 (38-126) U/L Troponin I <0.012 (0.000-0.034) ng/mL NT-Pro-B Natriuret Pep pg/mL Total Protein 7.7 (6.3-8.2) g/dL Albumin 4.3 (3.5-5.0) g/dL Urine Color Urine Appearance (Clear) Urine pH (5.0-8.0) Ur Specific [place] (1.001-1.035) Urine Protein (Negative) Urine Glucose (UA) (Negative) Urine Ketones (Negative) Urine Blood (Negative) Urine Nitrite (Negative) Urine Bilirubin (Negative) Urine Urobilinogen (<2.0) mg/dL Ur Leukocyte Esterase (Negative) Urine RBC (0-5) /hpf Urine WBC (0-5) /hpf Ur Squamous Epith Cells (0-4) /hpf Influenza Type A (PCR) (Not Detectd) Influenza Type B (PCR) (Not Detectd) RSV (PCR) (Not Detectd) SARS-CoV-2 (PCR) (Not Detectd) 12/14/21 12/14/21 Range/Units 18:19 18:19 WBC (3.8-10.6) k/uL RBC (3.80-5.40) m/uL Hgb (11.4-16.0) gm/dL Hct (34.0-46.0) % MCV (80.0-100.0) fL MCH (25.0-35.0) pg MCHC (31.0-37.0) g/dL RDW (11.5-15.5) % Plt Count (150-450) k/uL MPV Neutrophils % % Lymphocytes % % Monocytes % % Eosinophils % % Basophils % % Neutrophils # (1.3-7.7) k/uL Lymphocytes # (1.0-4.8) k/uL Monocytes # (0-1.0) k/uL Eosinophils # (0-0.7) k/uL Basophils # (0-0.2) k/uL PT (9.0-12.0) sec INR (<1.2) APTT (22.0-30.0) sec D-Dimer (<0.60) mg/L FEU Sodium (137-145) mmol/L Potassium (3.5-5.1) mmol/L Chloride (98-107) mmol/L Carbon Dioxide (22-30) mmol/L Anion Gap mmol/L BUN (7-17) mg/dL Creatinine (0.52-1.04) mg/dL Est GFR (CKD-EPI)AfAm (>60 ml/min/1.73 sqM) Est GFR (CKD-EPI)NonAf (>60 ml/min/1.73 sqM) Glucose (74-99) mg/dL Plasma Lactic Acid [place] (0.7-2.0) mmol/L Calcium (8.4-10.2) mg/dL Magnesium (1.6-2.3) mg/dL Total Bilirubin (0.2-1.3) mg/dL AST (14-36) U/L ALT (4-34) U/L Alkaline Phosphatase (38-126) U/L Troponin I (0.000-0.034) ng/mL NT-Pro-B Natriuret Pep 206 pg/mL Total Protein (6.3-8.2) g/dL Albumin (3.5-5.0) g/dL Urine Color Urine Appearance (Clear) Urine pH (5.0-8.0) Ur Specific [place] (1.001-1.035) Urine Protein (Negative) Urine Glucose (UA) (Negative) Urine Ketones (Negative) Urine Blood (Negative) Urine Nitrite (Negative) Urine Bilirubin (Negative) Urine Urobilinogen (<2.0) mg/dL Ur Leukocyte Esterase (Negative) Urine RBC (0-5) /hpf Urine WBC (0-5) /hpf Ur Squamous Epith Cells (0-4) /hpf Influenza Type A (PCR) Not Detected (Not Detectd) Influenza Type B (PCR) Not Detected (Not Detectd) RSV (PCR) Not Detected (Not Detectd) SARS-CoV-2 (PCR) Not Detected (Not Detectd) Disposition Clinical Impression: COPD exacerbation Disposition: ADMITTED IP TO THIS HOSP Referrals: Yomi Kennedy MD [Primary Care Provider] - 1-2 days Decision Date: 12/14/21 Decision Time: 20:25
--- NOTE | 2021-12-14 18:17 | XR ---
EXAMINATION TYPE: XR chest 2V DATE OF EXAM: 12/14/2021 COMPARISON: 10/12/2021 HISTORY: Cough and fever TECHNIQUE: 2 views FINDINGS: Heart and mediastinum are normal. Lungs are clear. Diaphragm is normal. Bony thorax appears intact. There is arthritic change in the left shoulder joint. IMPRESSION: No cardiopulmonary disease.. No change.
[2021-12-14 18:35] LABS: Basophils # (A) 0.1 k/uL (0-0.2); Basophils % (A) 1 %; Eosinophils # (A) 0.3 k/uL (0-0.7); Eosinophils % (A) 2 %; HCT 37.2 % (34.0-46.0); HGB 12.9 gm/dL (11.4-16.0); Lymphocytes # (A) 1.9 k/uL (1.0-4.8); Lymphocytes % (A) 11 %; MCH 30.7 pg (25.0-35.0); MCHC 34.7 g/dL (31.0-37.0); MCV 88.5 fL (80.0-100.0); Mean Platelet Volume 6.1; Monocytes # (A) 0.6 k/uL (0-1.0); Monocytes % (A) 4 %; Neutrophils # (A) 13.3 k/uL (1.3-7.7); Neutrophils % (A) 81 %; Platelet Count 334 k/uL (150-450); RDW 14.2 % (11.5-15.5); WBC 16.4 k/uL (3.8-10.6)
[2021-12-14 18:48] LABS: Albumin 4.3 g/dL (3.5-5.0); Calcium 8.7 mg/dL (8.4-10.2); Magnesium 1.5 mg/dL (1.6-2.3); Potassium 4.2 mmol/L (3.5-5.1); Total Bilirubin 0.4 mg/dL (0.2-1.3); Total Protein 7.7 g/dL (6.3-8.2)
[2021-12-14] MEDS ORDERED: BENZONATATE 100 MG CAP PO STA (18:48)
[2021-12-14] MEDS ORDERED: MAGNESIUM OXIDE 400 MG TAB PO STA (18:49)
[2021-12-14 18:56] LABS: INR 0.9 (<1.2); Partial Thromboplastin Time 25.9 sec (22.0-30.0); Prothrombin Time 9.7 sec (9.0-12.0)
[2021-12-14] MEDS ORDERED: SODIUM CHLORIDE 0.9% 1,000 ML IV ONE ×2 (18:57→22:47)
[2021-12-14] MEDS ORDERED: cefTRIAXone IN SWFI 1,000 MG/10 ML SYRINGE IVP STA (20:08)
[2021-12-14 20:11] LABS: Appearance,Urine Clear (Clear); Bilirubin,Urine Negative (Negative); Blood,Urine Small (Negative); Color,Urine Light Yellow; Glucose,Urine (UA) Negative (Negative); Ketones,Urine Negative (Negative); Leukocyte Esterase,Urine Negative (Negative); Nitrite,Urine Negative (Negative); PH, Urine 6.5 (5.0-8.0); Protein,Urine 1+ (Negative); RBC,Urine <1 /hpf (0-5); Specific Gravity,Urine 1.009 (1.001-1.035); Squamous Epithelial Cell,Urine 2 /hpf (0-4); Urobilinogen,Urine <2.0 mg/dL (<2.0); WBC,Urine 2 /hpf (0-5)
[2021-12-14] MEDS ORDERED: ACETAMINOPHEN TAB 325 MG TAB PO PRN (20:31)
[2021-12-14] MEDS ORDERED: NALOXONE 0.4 MG/ML 1 ML VIAL IV PRN (20:31)
[2021-12-14] MEDS: BENZOCAINE/MENTHOL LOZENG 1 EACH LOZENGE MUCOUS MEM PRN (20:47)
[2021-12-14] MEDS: SODIUM CHLORIDE 0.9% 1,000 ML IV SCH (20:52)
[2021-12-14 21:32] LABS: Glucose,Whole Blood 162 mg/dL (75-99)
[2021-12-14] MEDS ORDERED: IPRATROPIUM-ALBUTEROL 3 ML NEB INHALATION STA (22:11)
[2021-12-14] MEDS ORDERED: ALBUTEROL NEBULIZED 2.5 MG/3 ML INHALATION PRN (23:58)
[2021-12-15] MEDS: HYDROcodone/APAP 10-325MG 1 EACH TAB PO PRN ×4 (02:46→22:48)
[2021-12-15 04:05] LABS: Basophils # (A) 0.1 k/uL (0-0.2); Basophils % (A) 1 %; Eosinophils % (A) 0 %; HCT 34.3 % (34.0-46.0); HGB 11.3 gm/dL (11.4-16.0); Lymphocytes # (A) 0.7 k/uL (1.0-4.8); Lymphocytes % (A) 5 %; MCH 29.5 pg (25.0-35.0); MCHC 32.9 g/dL (31.0-37.0); MCV 89.5 fL (80.0-100.0); Mean Platelet Volume 6.3; Monocytes # (A) 0.2 k/uL (0-1.0); Monocytes % (A) 1 %; Neutrophils # (A) 14.2 k/uL (1.3-7.7); Neutrophils % (A) 93 %; Platelet Count 261 k/uL (150-450); RBC 3.83 m/uL (3.80-5.40); RDW 13.5 % (11.5-15.5); WBC 15.3 k/uL (3.8-10.6)
[2021-12-15 04:41] LABS: Albumin 3.8 g/dL (3.5-5.0); Calcium 8.5 mg/dL (8.4-10.2); Magnesium 1.5 mg/dL (1.6-2.3); Potassium 4.8 mmol/L (3.5-5.1); Total Bilirubin 0.4 mg/dL (0.2-1.3); Total Protein 6.8 g/dL (6.3-8.2)
[2021-12-15] MEDS: SODIUM CHLORIDE 0.9% 1,000 ML IV SCH ×4 (05:16→19:55)
[2021-12-15] MEDS ORDERED: SODIUM CHLORIDE 0.9% 1,000 ML IV ONE (05:44)
[2021-12-15] MEDS: LEVOTHYROXINE 88 MCG TAB PO SCH (05:51)
[2021-12-15] MEDS: BENZOCAINE/MENTHOL LOZENG 1 EACH LOZENGE MUCOUS MEM PRN ×3 (05:51→19:50)
[2021-12-15 06:56] LABS: Glucose,Whole Blood 190 mg/dL (75-99)
[2021-12-15] MEDS: SYMBICORT 80-4.5 MCG INHALER INHALATION SCH ×2 (08:06→20:59)
[2021-12-15] MEDS: OXYBUTYNIN 10 MG TAB.ER.24 PO SCH (08:54)
[2021-12-15] MEDS: TOPIRAMATE 25 MG TAB PO SCH ×2 (08:54→21:16)
[2021-12-15] MEDS: GABAPENTIN 400 MG CAP PO SCH ×3 (08:55→22:49)
[2021-12-15] MEDS: LORATADINE 10 MG TAB PO SCH (08:55)
[2021-12-15] MEDS: FLUoxetine HCL 20 MG CAP PO SCH (08:55)
[2021-12-15] MEDS: LOSARTAN 50 MG TAB PO SCH (08:55)
[2021-12-15] MEDS: INSULIN DETEMIR (LEVEMIR) 100 UNIT/ML SYR SQ SCH ×2 (08:56→21:16)
[2021-12-15 11:42] LABS: Glucose,Whole Blood 158 mg/dL (75-99)
[2021-12-15] MEDS: methylPREDNISolone SOD SUCCI 125 MG/2 ML VIAL IV SCH ×2 (12:56→17:39)
[2021-12-15 15:42] LABS: Glucose,Whole Blood 287 mg/dL (75-99)
[2021-12-15] MEDS: guaiFENesin SYRUP 100MG/5ML 200 MG/10 ML CUP PO PRN ×2 (16:35→22:48)
[2021-12-15] MEDS: IPRATROPIUM-ALBUTEROL 3 ML NEB INHALATION PRN (20:59)
[2021-12-15 21:16] LABS: Glucose,Whole Blood 306 mg/dL (75-99)
[2021-12-15] MEDS: QUEtiapine 50 MG TAB PO SCH (21:16)
[2021-12-15 22:55] LABS: Glucose,Whole Blood 313 mg/dL (75-99)
[2021-12-15] MEDS: INSULIN ASPART (NovoLOG) 100 UNIT/ML VIAL SQ SCH (22:55)
[2021-12-15] MEDS: CYCLOBENZAPRINE 10 MG TAB PO PRN (22:55)
[2021-12-16] MEDS: methylPREDNISolone SOD SUCCI 125 MG/2 ML VIAL IV SCH ×5 (00:15→23:42)
[2021-12-16] MEDS: SODIUM CHLORIDE 0.9% 1,000 ML IV SCH ×3 (05:47→23:42)
[2021-12-16] MEDS: HYDROcodone/APAP 10-325MG 1 EACH TAB PO PRN ×3 (05:49→20:46)
[2021-12-16] MEDS: guaiFENesin SYRUP 100MG/5ML 200 MG/10 ML CUP PO PRN ×3 (05:49→20:47)
[2021-12-16 07:29] LABS: Glucose,Whole Blood 208 mg/dL (75-99)
[2021-12-16] MEDS: GABAPENTIN 400 MG CAP PO SCH ×3 (07:44→20:46)
[2021-12-16] MEDS: FLUoxetine HCL 20 MG CAP PO SCH (07:44)
[2021-12-16] MEDS: INSULIN DETEMIR (LEVEMIR) 100 UNIT/ML SYR SQ SCH ×2 (07:44→23:30)
[2021-12-16] MEDS: INSULIN ASPART (NovoLOG) 100 UNIT/ML VIAL SQ SCH ×4 (07:44→23:30)
[2021-12-16] MEDS: LORATADINE 10 MG TAB PO SCH (07:44)
[2021-12-16] MEDS: TOPIRAMATE 25 MG TAB PO SCH ×2 (07:45→23:30)
[2021-12-16] MEDS: OXYBUTYNIN 10 MG TAB.ER.24 PO SCH (07:45)
[2021-12-16] MEDS: LEVOTHYROXINE 88 MCG TAB PO SCH (07:45)
[2021-12-16] MEDS: LOSARTAN 50 MG TAB PO SCH (07:45)
[2021-12-16] MEDS: SYMBICORT 80-4.5 MCG INHALER INHALATION SCH ×2 (08:00→19:35)
--- NOTE | 2021-12-16 08:40 | P.PN ---
Subjective Principal diagnosis: Exacerbation of COPD with bronchitis/pneumonia The patient is feeling much better but still has worsening cough. Steroids have been empirically started. No voiding difficulties. She seems resting much more comfortably. Objective - Vital Signs Vital signs: Vital Signs Temp 97.5 F L 12/16/21 07:30 Pulse 90 12/16/21 07:30 Resp 18 12/16/21 07:30 BP 172/81 12/16/21 07:30 Pulse Ox 98 12/16/21 07:30 Intake & Output 12/15/21 12/16/21 12/16/21 18:59 06:59 18:59 Intake Total 640 Balance 640 Intake: Intake, IV Titration 640 Amount Sodium Chloride 0.9% 1, 640 000 ml @ 130 mls/hr IV . Q7H42M [facility] Rx#:[id number] Other: # Voids 3 2 - Constitutional General appearance: Present: no acute distress - EENT Eyes: Absent: abnormal pupil - Neck Neck: Absent: lymphadenopathy - Respiratory Respiratory: bilateral: wheezing - Cardiovascular Rhythm: regular Heart sounds: normal: S1, S2 Abnormal Heart Sounds: Absent: S3 Gallop - Gastrointestinal General gastrointestinal: Present: scaphoid. Absent: tenderness - Integumentary Integumentary: Absent: cellulitis - Labs CBC & Chem 7: 12/15/21 03:37 12/15/21 03:37 Labs: Abnormal Lab Results - Last 24 Hours (Table) 12/15/21 12/15/21 12/15/21 Range/Units 11:40 15:41 21:14 POC Glucose (mg/dL) 158 H 287 H 306 H (75-99) mg/dL 12/15/21 12/16/21 Range/Units 22:52 07:27 POC Glucose (mg/dL) 313 H 208 H (75-99) mg/dL Microbiology - Last 24 Hours (Table) 12/15/21 05:59 Blood Culture - Preliminary Blood No Growth after 24 hours 12/14/21 19:30 Blood Culture - Preliminary Blood No Growth after 24 hours Assessment and Plan (1) COPD exacerbation Current Visit: Yes Status: Acute Code(s): J44.1 - CHRONIC OBSTRUCTIVE PULMONARY DISEASE W (ACUTE) EXACERBATION SNOMED Code(s): 429546181 (2) At risk for readmission to hospital Current Visit: Yes Status: Acute Code(s): Z91.89 - OTH PERSONAL RISK FACTORS, NOT ELSEWHERE CLASSIFIED SNOMED Code(s): 5111073623853 (3) History of below-knee amputation of right lower extremity Current Visit: No Status: Acute Code(s): Z89.511 - ACQUIRED ABSENCE OF RIGHT LEG BELOW KNEE SNOMED Code(s): 113021557207979 (4) Pneumonia Current Visit: No Status: Acute Code(s): J18.9 - PNEUMONIA, UNSPECIFIED ORGANISM SNOMED Code(s): 592857819 Plan: Reconcile medications. Treat empirically for pneumonia possible sepsis. Consult pulmonology and possibly infectious disease if no improvement. Sliding scale with some steroids. See orders otherwise
[2021-12-16] MEDS: IPRATROPIUM-ALBUTEROL 3 ML NEB INHALATION PRN ×3 (08:54→19:35)
[2021-12-16 10:45] LABS: HCT 30.6 % (37.2-46.3); HGB 10.4 g/dL (12.0-15.0); MCH 29.1 pg (27.0-32.0); MCV 85.5 fL (80.0-97.0); Mean Platelet Volume 8.2 fL (9.5-12.2); NRBC Per 100 WBC 0 /100 WBCS (0.0-0.0); Platelet Count 230 X 10*3/uL (140-440); RBC 3.58 X 10*6/uL (4.10-5.20); RDW 13.5 % (11.5-14.5); WBC 15.42 X 10*3/uL (4.50-10.00)
[2021-12-16 11:03] LABS: ALT 20 U/L (8-44); AST 19 U/L (13-35); African American GFR (CKD) 77.2 (60.0-200.0); Alkaline Phosphatase 82 U/L (41-126); Blood Urea Nitrogen 17.1 mg/dL (9.0-27.0); Calcium 8.7 mg/dL (8.7-10.3); Carbon Dioxide 16.1 mmol/L (20.0-27.5); Chloride 98 mmol/L (96-109); Globulin 2.5 g/dL (1.6-3.3); Glucose 201 mg/dL (70-110); Non-African American GFR(CKD) 66.6 (60.0-200.0); Potassium 4.1 mmol/L (3.5-5.5); Sodium 128 mmol/L (135-145); Total Bilirubin <0.15 mg/dL (0.30-1.20); Total Protein 6.5 g/dL (6.2-8.2)
[2021-12-16 11:48] LABS: Glucose,Whole Blood 264 mg/dL (75-99)
[2021-12-16 16:34] LABS: Glucose,Whole Blood 334 mg/dL (75-99)
[2021-12-16 20:17] LABS: Glucose,Whole Blood 325 mg/dL (75-99)
[2021-12-16] MEDS: CYCLOBENZAPRINE 10 MG TAB PO PRN (20:46)
[2021-12-16] MEDS: QUEtiapine 50 MG TAB PO SCH (23:30)
[2021-12-17] MEDS: IPRATROPIUM-ALBUTEROL 3 ML NEB INHALATION PRN ×5 (05:01→19:44)
[2021-12-17] MEDS: guaiFENesin SYRUP 100MG/5ML 200 MG/10 ML CUP PO PRN ×2 (05:03→11:42)
[2021-12-17] MEDS: HYDROcodone/APAP 10-325MG 1 EACH TAB PO PRN ×3 (05:03→19:50)
[2021-12-17] MEDS: methylPREDNISolone SOD SUCCI 125 MG/2 ML VIAL IV SCH (05:04)
[2021-12-17] MEDS: SODIUM CHLORIDE 0.9% 1,000 ML IV SCH ×3 (05:16→11:42)
[2021-12-17] MEDS: LEVOTHYROXINE 88 MCG TAB PO SCH (06:01)
[2021-12-17] MEDS: LOSARTAN 50 MG TAB PO SCH (08:42)
[2021-12-17] MEDS: GABAPENTIN 400 MG CAP PO SCH ×3 (08:42→19:49)
[2021-12-17] MEDS: INSULIN ASPART (NovoLOG) 100 UNIT/ML VIAL SQ SCH ×4 (08:42→22:20)
[2021-12-17] MEDS: FLUoxetine HCL 20 MG CAP PO SCH (08:42)
[2021-12-17] MEDS: LORATADINE 10 MG TAB PO SCH (08:42)
[2021-12-17] MEDS: SYMBICORT 80-4.5 MCG INHALER INHALATION SCH ×2 (08:42→19:54)
[2021-12-17] MEDS: TOPIRAMATE 25 MG TAB PO SCH ×2 (08:48→19:50)
[2021-12-17] MEDS: INSULIN DETEMIR (LEVEMIR) 100 UNIT/ML SYR SQ SCH ×2 (08:48→19:49)
[2021-12-17] MEDS: OXYBUTYNIN 10 MG TAB.ER.24 PO SCH (08:49)
[2021-12-17 11:22] LABS: Glucose,Whole Blood 424 mg/dL (75-99)
[2021-12-17 13:08] LABS: Basophils % (A) 0 %; Eosinophils % (A) 0 %; HCT 35.2 % (34.0-46.0); HGB 11.5 gm/dL (11.4-16.0); Lymphocytes % (A) 7 %; MCHC 32.7 g/dL (31.0-37.0); MCV 91.5 fL (80.0-100.0); Mean Platelet Volume 6.3; Monocytes # (A) 0.8 k/uL (0-1.0); Monocytes % (A) 6 %; Neutrophils # (A) 12.3 k/uL (1.3-7.7); Neutrophils % (A) 86 %; Platelet Count 271 k/uL (150-450); RBC 3.85 m/uL (3.80-5.40); RDW 13.9 % (11.5-15.5); WBC 14.3 k/uL (3.8-10.6)
[2021-12-17 13:20] LABS: African American GFR (CKD) 73 (>60 ml/min/1.73 sqM); Anion Gap 13 mmol/L; Blood Urea Nitrogen 20 mg/dL (7-17); Calcium 8.9 mg/dL (8.4-10.2); Carbon Dioxide 19 mmol/L (22-30); Chloride 96 mmol/L (98-107); Glucose 332 mg/dL (74-99); Magnesium 1.7 mg/dL (1.6-2.3); Non-African American GFR(CKD) 64 (>60 ml/min/1.73 sqM); Potassium 3.9 mmol/L (3.5-5.1); Sodium 128 mmol/L (137-145)
[2021-12-17] MEDS ORDERED: Magnesium Replacement Protocol 1 EACH MISC MISCELLANE PRN (13:53)
--- NOTE | 2021-12-17 14:03 | P.PN ---
Subjective Progress Note Date: 12/17/21 12/17/[address] Kennedy for the weekend. Patient evaluated today sitting up in bed. Would like to go home. Sodium today still 128, has not been getting IV fluids. Start at 0.9 at 75 overnight and repeat sodium tomorrow. Patient should be able to DC if sodium improving. Otherwise no shortness of breath, no wheezing noted. Change steroids to oral. Afebrile, on room air. Review of Systems Constitutional: Denied any fatigue denied any fever. Cardio vascular: denied any chest pain, palpitations Gastrointestinal: denied any nausea, vomiting, diarrhea Pulmonary: Denied any shortness of breath cough Neurologic denied any new focal deficits All inpatient medications were reviewed and appropriate changes in these medications as dictated in the interval history and assessment and plan. PHYSICAL EXAMINATION: GENERAL: The patient is alert and oriented x3, not in any acute distress. Well developed, well nourished. HEENT: Pupils are round and equally reacting to light. EOMI. No scleral icterus. No conjunctival pallor. Normocephalic, atraumatic. No pharyngeal erythema. No thyromegaly. CARDIOVASCULAR: S1 and S2 present. No murmurs, rubs, or gallops. PULMONARY: Chest is clear to auscultation, no wheezing or crackles. ABDOMEN: Soft, nontender, nondistended, normoactive bowel sounds. No palpable organomegaly. MUSCULOSKELETAL: No joint swelling or deformity. EXTREMITIES: No cyanosis, clubbing, or pedal edema. NEUROLOGICAL: Gross neurological examination did not reveal any focal deficits. SKIN: No rashes. Assessment and Plan Assessment Acute COPD exacerbation with bronchitis no evidence of pneumonia on xray Hyponatremia Hypertension Diabetes mellitus type 2 History of peripheral neuropathy History of the below the knee amputation Obesity GI Prophylaxis DVT Prophylaxis Full Code Plan IV fluids overnight Repeat sodium tomorrow PO steroids Continue all other supportive care Patient should be able to DC home tomorrow if sodium improves The impression and plan of care has been dictated by Dunia Mojica, Nurse Practitioner as directed. Dr. Fam MD I have performed a history and physical examination and medical decision making of this patient, discussed the same with the dictator, and agree with the dictators assessment and plan as written, documented as a scribe. Based on total visit time, I have performed more than 50% of this visit. Objective - Vital Signs Vital signs: Vital Signs Temp 97.4 F L 12/17/21 07:35 Pulse 94 12/17/21 11:50 Resp 19 12/17/21 07:35 BP 155/80 12/17/21 07:35 Pulse Ox 98 12/17/21 08:44 Intake & Output 12/16/21 12/17/21 12/17/21 18:59 06:59 18:59 Other: # Voids 4 - Labs CBC & Chem 7: 12/17/21 12:36 12/17/21 12:36 Labs: Abnormal Lab Results - Last 24 Hours (Table) 12/16/21 12/16/21 12/17/21 Range/Units 16:33 20:15 11:19 WBC (3.8-10.6) k/uL Neutrophils # (1.3-7.7) k/uL Sodium (137-145) mmol/L Chloride (98-107) mmol/L Carbon Dioxide (22-30) mmol/L BUN (7-17) mg/dL Glucose (74-99) mg/dL POC Glucose (mg/dL) 334 H 325 H 424 H (75-99) mg/dL 12/17/21 12/17/21 Range/Units 12:36 12:36 WBC 14.3 H (3.8-10.6) k/uL Neutrophils # 12.3 H (1.3-7.7) k/uL Sodium 128 L (137-145) mmol/L Chloride 96 L (98-107) mmol/L Carbon Dioxide 19 L (22-30) mmol/L BUN 20 H (7-17) mg/dL Glucose 332 H (74-99) mg/dL POC Glucose (mg/dL) (75-99) mg/dL Microbiology - Last 24 Hours (Table) 12/15/21 05:59 Blood Culture - Preliminary Blood No Growth after 48 hours 12/14/21 19:30 Blood Culture - Preliminary Blood No Growth after 48 hours Assessment and Plan Time with Patient: Less than 30
[2021-12-17] MEDS: MAGNESIUM SULFATE-D5W PMX 1 GM in DEXTROSE/WATER 1 100ML.BAG IVPB SCH ×2 (15:36→16:55)
[2021-12-17 16:44] LABS: Glucose,Whole Blood 134 mg/dL (75-99)
[2021-12-17] MEDS: QUEtiapine 50 MG TAB PO SCH (19:50)
[2021-12-17 20:47] LABS: Glucose,Whole Blood 210 mg/dL (75-99)
[2021-12-17] MEDS ORDERED: methylPREDNISolone SOD SUCCI 40 MG/ML 1 ML VIAL IV SCH (21:00)
[2021-12-18] MEDS: SODIUM CHLORIDE 0.9% 1,000 ML IV SCH ×3 (00:42→20:08)
[2021-12-18] MEDS: HYDROcodone/APAP 10-325MG 1 EACH TAB PO PRN ×3 (05:39→20:01)
[2021-12-18] MEDS: LEVOTHYROXINE 88 MCG TAB PO SCH (06:16)
[2021-12-18 07:00] LABS: Glucose,Whole Blood 111 mg/dL (75-99)
[2021-12-18] MEDS: INSULIN ASPART (NovoLOG) 100 UNIT/ML VIAL SQ SCH ×4 (07:21→23:53)
[2021-12-18] MEDS: SYMBICORT 80-4.5 MCG INHALER INHALATION SCH ×2 (08:10→19:51)
[2021-12-18] MEDS: IPRATROPIUM-ALBUTEROL 3 ML NEB INHALATION PRN ×2 (08:10→11:57)
[2021-12-18] MEDS: predniSONE 20 MG TAB PO SCH (08:46)
[2021-12-18] MEDS: INSULIN DETEMIR (LEVEMIR) 100 UNIT/ML SYR SQ SCH ×2 (08:46→23:53)
[2021-12-18] MEDS: LOSARTAN 50 MG TAB PO SCH (08:47)
[2021-12-18] MEDS: TOPIRAMATE 25 MG TAB PO SCH ×2 (08:47→20:02)
[2021-12-18] MEDS: FLUoxetine HCL 20 MG CAP PO SCH (08:47)
[2021-12-18] MEDS: OXYBUTYNIN 10 MG TAB.ER.24 PO SCH (08:47)
[2021-12-18] MEDS: LORATADINE 10 MG TAB PO SCH (08:47)
[2021-12-18] MEDS: GABAPENTIN 400 MG CAP PO SCH ×3 (08:47→20:02)
[2021-12-18] MEDS: CYCLOBENZAPRINE 10 MG TAB PO PRN (09:22)
[2021-12-18 10:20] LABS: Magnesium 2.1 mg/dL (1.5-2.4)
[2021-12-18 10:41] LABS: Anion Gap 11.7 mmol/L (10.00-18.00); BUN/Creat Ratio 19.4 Ratio (12.00-20.00); Blood Urea Nitrogen 19.4 mg/dL (9.0-27.0); Calcium 8.7 mg/dL (8.7-10.3); Carbon Dioxide 20.3 mmol/L (20.0-27.5); Non-African American GFR(CKD) 58.7 (60.0-200.0); Potassium 3.8 mmol/L (3.5-5.5)
[2021-12-18 11:28] LABS: Glucose,Whole Blood 177 mg/dL (75-99)
[2021-12-18 16:07] LABS: Glucose,Whole Blood 308 mg/dL (75-99)
--- NOTE | 2021-12-18 16:23 | P.PN ---
Subjective Progress Note Date: 12/18/21 12/17/[address] Kennedy for the weekend. Patient evaluated today sitting up in bed. Would like to go home. Sodium today still 128, has not been getting IV fluids. Start at 0.9 at 75 overnight and repeat sodium tomorrow. Patient should be able to DC if sodium improving. Otherwise no shortness of breath, no wheezing noted. Change steroids to oral. Afebrile, on room air. 12/18/2021 Patient evaluated today sitting up in bed. Sodium improved slightly to 129, continues on IV fluids, repeat BMP tomorrow. No wheezing noted on exam, adequate saturations on room air. No acute events overnight. Patient was hopeful to discharge today. She also has a glucometer in the [facility] at the hospital that she is unable to get today. Discharge most likely tomorrow. Dr Kennedy will resume care in the morning. Review of Systems Constitutional: Denied any fatigue denied any fever. Cardio vascular: denied any chest pain, palpitations Gastrointestinal: denied any nausea, vomiting, diarrhea Pulmonary: Denied any shortness of breath cough Neurologic denied any new focal deficits All inpatient medications were reviewed and appropriate changes in these medications as dictated in the interval history and assessment and plan. PHYSICAL EXAMINATION: GENERAL: The patient is alert and oriented x3, not in any acute distress. Well developed, well nourished. HEENT: Pupils are round and equally reacting to light. EOMI. No scleral icterus. No conjunctival pallor. Normocephalic, atraumatic. No pharyngeal erythema. No thyromegaly. CARDIOVASCULAR: S1 and S2 present. No murmurs, rubs, or gallops. PULMONARY: Chest is clear to auscultation, no wheezing or crackles. ABDOMEN: Soft, nontender, nondistended, normoactive bowel sounds. No palpable organomegaly. MUSCULOSKELETAL: No joint swelling or deformity. EXTREMITIES: No cyanosis, clubbing, or pedal edema. NEUROLOGICAL: Gross neurological examination did not reveal any focal deficits. SKIN: No rashes. Assessment and Plan Assessment Acute COPD exacerbation with bronchitis no evidence of pneumonia on xray Hyponatremia Hypertension Diabetes mellitus type 2 History of peripheral neuropathy History of the below the knee amputation Obesity GI Prophylaxis DVT Prophylaxis Full Code Plan IV fluids Repeat sodium tomorrow PO steroids Continue all other supportive care Patient should be able to DC home tomorrow if sodium improves Needs glucometer from [facility] pharmacy before DC tomorrow The impression and plan of care has been dictated by Dunia Mojica, Nurse Practitioner as directed. Dr. Fam MD I have performed a history and physical examination and medical decision making of this patient, discussed the same with the dictator, and agree with the dictators assessment and plan as written, documented as a scribe. Based on total visit time, I have performed more than 50% of this visit. Objective - Vital Signs Vital signs: Vital Signs Temp 99.5 F 12/18/21 14:00 Pulse 105 H 12/18/21 14:00 Resp 18 12/18/21 02:00 BP 160/79 12/18/21 14:00 Pulse Ox 97 12/18/21 14:00 Intake & Output 12/17/21 12/18/21 12/18/21 18:59 06:59 18:59 Intake Total 1080 500 Balance 1080 500 Intake: Oral 1080 500 Other: # Voids 3 1 - Labs CBC & Chem 7: 12/17/21 12:36 12/18/21 05:42 Labs: Abnormal Lab Results - Last 24 Hours (Table) 12/17/21 12/17/21 12/18/21 Range/Units 16:43 20:18 05:42 Sodium 129 L (135-145) mmol/L Est GFR (CKD-EPI)NonAf 58.7 L (60.0-200.0) POC Glucose (mg/dL) 134 H 210 H (75-99) mg/dL 12/18/21 12/18/21 Range/Units 06:59 11:27 Sodium (135-145) mmol/L Est GFR (CKD-EPI)NonAf (60.0-200.0) POC Glucose (mg/dL) 111 H 177 H (75-99) mg/dL Microbiology - Last 24 Hours (Table) 12/15/21 05:59 Blood Culture - Preliminary Blood No Growth after 72 hours 12/14/21 19:30 Blood Culture - Preliminary Blood No Growth after 72 hours Assessment and Plan Time with Patient: Less than 30
[2021-12-18] MEDS: QUEtiapine 50 MG TAB PO SCH (20:02)
[2021-12-18 23:51] LABS: Glucose,Whole Blood 205 mg/dL (75-99)
[2021-12-19 01:24] VITALS: RESP 16; TEMP 98.6
[2021-12-19] MEDS: HYDROcodone/APAP 10-325MG 1 EACH TAB PO PRN ×2 (02:20→08:29)
[2021-12-19] MEDS: LEVOTHYROXINE 88 MCG TAB PO SCH (06:06)
[2021-12-19 06:59] LABS: Glucose,Whole Blood 107 mg/dL (75-99)
[2021-12-19] MEDS: INSULIN ASPART (NovoLOG) 100 UNIT/ML VIAL SQ SCH (07:08)
[2021-12-19] MEDS: FLUoxetine HCL 20 MG CAP PO SCH (08:07)
[2021-12-19] MEDS: OXYBUTYNIN 10 MG TAB.ER.24 PO SCH (08:07)
[2021-12-19] MEDS: LORATADINE 10 MG TAB PO SCH (08:08)
[2021-12-19] MEDS: INSULIN DETEMIR (LEVEMIR) 100 UNIT/ML SYR SQ SCH (08:08)
[2021-12-19] MEDS: LOSARTAN 50 MG TAB PO SCH (08:08)
[2021-12-19] MEDS: predniSONE 20 MG TAB PO SCH (08:08)
[2021-12-19] MEDS: GABAPENTIN 400 MG CAP PO SCH (08:08)
[2021-12-19] MEDS: TOPIRAMATE 25 MG TAB PO SCH (08:08)
--- NOTE | 2021-12-19 08:20 | P.DS ---
Providers Date of admission: 12/14/21 21:32 Attending physician: Yomi Kennedy Primary care physician: Yomi Kennedy - Discharge Diagnosis(es) (1) COPD exacerbation Current Visit: Yes Status: Acute (2) At risk for readmission to hospital Current Visit: Yes Status: Acute (3) History of below-knee amputation of right lower extremity Current Visit: No Status: Acute (4) Pneumonia Current Visit: No Status: Acute Hospital Course: This discharge summary 66-year-old black female essentially admitted for exacerbation of COPD, bronchitis with cough. Has normal history diabetes with P AD. The patient was stabilized with appropriate steroid treatment. Breathing was much better she is emulating without difficulty and with no significant voiding. Prednisone was restarted and she will follow up with me in about one week. Plan - Discharge Summary New Discharge Prescriptions: New guaiFENesin SYRUP 100MG/5ML [Robitussin] 200 mg PO Q6HR PRN ml PRN Reason: Cough Acetaminophen Tab [Tylenol] 650 mg PO Q6HR PRN tab PRN Reason: Mild Pain Or Fever > 100.5 Benzocaine/Menthol Lozeng [Cepacol lozenge] 1 each MUCOUS MEM Q4HR PRN lozenge PRN Reason: Cough predniSONE 0 mg PO DIRECTED 12 Days #30 tab Continue Ibuprofen [Motrin] 600 mg PO TID PRN PRN Reason: Pain Gabapentin 800 mg PO TID Fluticasone/Salmeterol [Advair 250-50 Diskus] 1 puff INHALATION RT-BID Insulin Glargine,Hum.rec.anlog [Lantus Solostar Pen] 55 unit SQ BID Cetirizine HCl 10 mg PO BID metFORMIN HCL [Glucophage] 1,000 mg PO BID Topiramate 50 mg PO BID Oxybutynin Chloride [Oxybutynin Chloride ER] 10 mg PO DAILY Losartan [Cozaar] 50 mg PO DAILY Cyclobenzaprine [Flexeril] 10 mg PO TID PRN PRN Reason: Muscle Spasm FLUoxetine HCL [PROzac] 40 mg PO DAILY Fluticasone Nasal [place] [Flonase Nasal [place]] 1 - 2 spr EA NOSTRIL HS Albuterol Inhaler [Ventolin Hfa Inhaler] 2 puff INHALATION RT-QID PRN PRN Reason: Shortness Of Breath Fluocinolone 0.01% Body Oil 1 applic TOPICAL BID HYDROcodone/APAP 10-325MG [[place] 10-325] 1 tab PO Q6H PRN PRN Reason: Pain Levothyroxine Sodium 88 mcg PO DAILY QUEtiapine [SEROquel] 400 mg PO HS Discharge Medication List Cetirizine HCl 10 mg PO BID 08/17/20 [History] Fluticasone/Salmeterol [Advair 250-50 Diskus] 1 puff INHALATION RT-BID 08/17/20 [History] Gabapentin 800 mg PO TID 08/17/20 [History] Ibuprofen [Motrin] 600 mg PO TID PRN 08/17/20 [History] Insulin Glargine,Hum.rec.anlog [Lantus Solostar Pen] 55 unit SQ BID 08/17/20 [History] Losartan [Cozaar] 50 mg PO DAILY 08/17/20 [History] Oxybutynin Chloride [Oxybutynin Chloride ER] 10 mg PO DAILY 08/17/20 [History] Topiramate 50 mg PO BID 08/17/20 [History] metFORMIN HCL [Glucophage] 1,000 mg PO BID 08/17/20 [History] Cyclobenzaprine [Flexeril] 10 mg PO TID PRN 09/17/21 [History] FLUoxetine HCL [PROzac] 40 mg PO DAILY 09/17/21 [History] Fluocinolone 0.01% Body Oil 1 applic TOPICAL BID 09/17/21 [History] Fluticasone Nasal [place] [Flonase Nasal [place]] 1 - 2 spr EA NOSTRIL HS 09/17/21 [History] Albuterol Inhaler [Ventolin Hfa Inhaler] 2 puff INHALATION RT-QID PRN 12/14/21 [History] HYDROcodone/APAP 10-325MG [[place] 10-325] 1 tab PO Q6H PRN 12/14/21 [History] Levothyroxine Sodium 88 mcg PO DAILY 12/14/21 [History] QUEtiapine [SEROquel] 400 mg PO HS 12/14/21 [History] Acetaminophen Tab [Tylenol] 650 mg PO Q6HR PRN tab 12/18/21 [Rx] Benzocaine/Menthol Lozeng [Cepacol lozenge] 1 each MUCOUS MEM Q4HR PRN lozenge 12/18/21 [Rx] guaiFENesin SYRUP 100MG/5ML [Robitussin] 200 mg PO Q6HR PRN ml 12/18/21 [Rx] predniSONE 0 mg PO DIRECTED 12 Days #30 tab 12/18/21 [Rx] Follow up Appointment(s)/Referral(s): [facility] Visiting Nurse, [NON-STAFF] - ([facility] will call you to schedule your in home nursing visits. Sunday12/19/21 will be the first visit. ) Yomi Kennedy MD [Primary Care Provider] - 3 Days Activity/Diet/Wound Care/Special Instructions: Please make sure patient gets her glucometer from [facility] in the hospital prior to discharge. It is ready and waiting for her Discharge Disposition: HOME SELF-CARE
[2021-12-19] MEDS: IPRATROPIUM-ALBUTEROL 3 ML NEB INHALATION PRN (08:31)
[2021-12-19] MEDS: SYMBICORT 80-4.5 MCG INHALER INHALATION SCH (08:31)
[2021-12-19 08:58] VITALS: BP 152/77; PULSE 95
[2021-12-19 09:14] LABS: African American GFR (CKD) 77.2 (60.0-200.0); BUN/Creat Ratio 18.11 Ratio (12.00-20.00); Blood Urea Nitrogen 16.3 mg/dL (9.0-27.0); Calcium 8.4 mg/dL (8.7-10.3); Non-African American GFR(CKD) 66.6 (60.0-200.0); Potassium 3.9 mmol/L (3.5-5.5)
== END 2021-12-19 11:46 | disposition home health service (06) | DRG 190 ==
LOC: EC 14:40 → 4SSUR 21:32
PROVIDERS: ADMIT Family Medicine; ATTEND Family Medicine
DX: J44.0 Chronic obstructive pulmonary disease with (acute) lower respiratory infection (principal); J18.9 Pneumonia, unspecified organism; E87.1 Hypo-osmolality and hyponatremia; Z20.822 Contact with and (suspected) exposure to COVID-19; E11.51 Type 2 diabetes mellitus with diabetic peripheral angiopathy without gangrene; J40 Bronchitis, not specified as acute or chronic; J44.1 Chronic obstructive pulmonary disease with (acute) exacerbation; I10 Essential (primary) hypertension; Z87.891 Personal history of nicotine dependence; E66.9 Obesity, unspecified; Z89.511 Acquired absence of right leg below knee; Z68.36 Body mass index [BMI] 36.0-36.9, adult; Z79.4 Long term (current) use of insulin; Z79.899 Other long term (current) drug therapy
CPT/HCPCS: 36415; 71046; 80048; 80053; 81001; 83605; 83735; 83880; 84145; 84484; 85025; 85027; 85379; 85610; 85730; 87040; 87636; 93005; 94640; 94760; 96361; 96374; 96375; 99285

== ENCOUNTER → 2022-01-06 | Outpatient (CLI) | payer MEDICARE, OTHER ==
--- NOTE | 2022-01-06 13:39 | XR ---
EXAMINATION TYPE: XR chest 2V DATE OF EXAM: 01/06/2022 COMPARISON: 12/14/2021 TECHNIQUE: PA and lateral views submitted. HISTORY: Cough FINDINGS: The lungs are clear and there is no pneumothorax, pleural effusion, or focal pneumonia. Arthropathy of the left shoulder. Heart size normal. No overt failure. Hypertrophic and degenerative changes of the spine. Coarsened interstitium. IMPRESSION: 1. Coarsened interstitium correlate for bronchitis or mild interstitial pneumonitis. 2. Correlate for COPD or asthma..
== END | disposition home or self-care (01) ==
LOC: RADXRMAIN 13:21
PROVIDERS: ATTEND Family Medicine
DX: R05.9 Cough, unspecified (principal)
CPT/HCPCS: 71046

== ENCOUNTER 2022-06-16 11:22 | Emergency (ER) | payer MEDICARE, OTHER ==
[2022-06-16 11:32] VITALS: BP 142/74; PULSE 84; RESP 18; TEMP 98.1
--- NOTE | 2022-06-16 12:13 | ED ---
General Adult HPI - General Chief complaint: Eye Problems Stated complaint: vision problems Time Seen by Provider: 06/16/22 11:59 Source: patient, RN notes reviewed, old records reviewed Mode of arrival: wheelchair - History of Present Illness Initial comments: 67 yo female presenting with abnormal outpatient eye testing which was performed yesterday. Patient had been contacted by her architectural administrative assistant to present to the emergency department with concern for central retinal artery occlusion. The retinal images apparently had been sent to retinal specialist recommended that he should present for vascular evaluation. She does not have any new complaints. She states her vision has been worsening but this has been worsening over months. No acute vision changes. No limb weakness. She does report mild headache. - Related Data Home Medications Medication Instructions Recorded Confirmed Cetirizine HCl 10 mg PO BID 08/17/20 12/14/21 Fluticasone Propion/Salmeterol 1 puff INHALATION RT-BID 08/17/20 12/14/21 [Advair 250-50 Diskus] Gabapentin 800 mg PO TID 08/17/20 12/14/21 Ibuprofen [Motrin] 600 mg PO TID PRN 08/17/20 12/14/21 Insulin Glargine,Hum.rec.anlog 55 unit SQ BID 08/17/20 12/14/21 [Lantus Solostar Pen] Losartan [Cozaar] 50 mg PO DAILY 08/17/20 12/14/21 Oxybutynin Chloride [Oxybutynin 10 mg PO DAILY 08/17/20 12/14/21 Chloride ER] Topiramate 50 mg PO BID 08/17/20 12/14/21 metFORMIN HCL [Glucophage] 1,000 mg PO BID 08/17/20 12/14/21 Cyclobenzaprine [Flexeril] 10 mg PO TID PRN 09/17/21 12/14/21 FLUoxetine HCL [PROzac] 40 mg PO DAILY 09/17/21 12/14/21 Fluocinolone 0.01% Body Oil 1 applic TOPICAL BID 09/17/21 12/14/21 Fluticasone Nasal [place] [Flonase 1 - 2 spr EA NOSTRIL HS 09/17/21 12/14/21 Nasal [place]] Albuterol Inhaler [Ventolin Hfa 2 puff INHALATION RT-QID PRN 12/14/21 12/14/21 Inhaler] HYDROcodone/APAP 10-325MG [[place] 1 tab PO Q6H PRN 12/14/21 12/14/21 10-325] Levothyroxine Sodium 88 mcg PO DAILY 12/14/21 12/14/21 QUEtiapine [SEROquel] 400 mg PO HS 12/14/21 12/14/21 Previous Rx's Medication Instructions Recorded Acetaminophen Tab [Tylenol] 650 mg PO Q6HR PRN tab 12/18/21 Benzocaine/Menthol Lozeng [Cepacol 1 each MUCOUS MEM Q4HR PRN lozenge 12/18/21 lozenge] guaiFENesin SYRUP 100MG/5ML 200 mg PO Q6HR PRN ml 12/18/21 [Robitussin] predniSONE 0 mg PO DIRECTED 12 Days #30 tab 12/18/21 Allergies Allergy/AdvReac Type Severity Reaction Status Date / Time No Known Allergies Allergy Verified 06/16/22 11:32 Review of Systems ROS Statement: Those systems with pertinent positive or pertinent negative responses have been documented in the HPI. ROS Other: All systems not noted in ROS Statement are negative. Past Medical History Past Medical History: COPD, Diabetes Mellitus, Hypertension History of Any Multi-Drug Resistant Organisms: None Reported Past Surgical History: Back Surgery, Orthopedic Surgery Additional Past Surgical History / Comment(s): rt below knee amp Past Anesthesia/Blood Transfusion Reactions: No Reported Reaction Past Psychological History: Depression Smoking Status: Former smoker Past Alcohol Use History: Occasional Past Drug Use History: None Reported General Exam General appearance: alert, in no apparent distress Head exam: Present: atraumatic, normocephalic Eye exam: Present: normal appearance, PERRL, EOMI ENT exam: Present: normal exam Neck exam: Present: normal inspection. Absent: tenderness Respiratory exam: Present: normal lung sounds bilaterally. Absent: respiratory distress, wheezes Cardiovascular Exam: Present: regular rate, normal rhythm GI/Abdominal exam: Present: soft. Absent: distended, tenderness, guarding Extremities exam: Present: other (Right leg amputation) Neurological exam: Present: alert, oriented X3, CN II-XII intact Skin exam: Present: warm, dry, intact Course Vital Signs 06/16/22 06/16/22 11:27 11:29 Temperature 98.1 F 98.1 F Pulse Rate 84 84 Respiratory 18 18 Rate Blood Pressure 142/74 142/74 O2 Sat by Pulse 100 100 Oximetry Medical Decision Making - Medical Decision Making 67-year-old female who had been sent in for workup of retinal artery occlusion. Patient did not have any acute vision changes and was not willing to undergo testing in the emergency department. She states that she had an appointment with her primary care physician which she needed to make. She was informed of the risks and told that she should have the testing performed however even with this advice she stated that she needed to leave. Her wishes were respected and she was discharged. She was instructed to return to the emergency department after her appointment and I did discuss this with the primary care physician Dr. Kennedy. Disposition Clinical Impression: Vision changes Disposition: HOME SELF-CARE Condition: Fair Instructions (If sedation given, give patient instructions): Blurred Vision (ED) Is patient prescribed a controlled substance at d/c from ED?: No Referrals: Yomi Kennedy MD [Primary Care Provider] - 1-2 days Time of Disposition: 12:13
== END 2022-06-16 12:24 | disposition home or self-care (01) ==
LOC: EC 11:22
DX: H53.9 Unspecified visual disturbance (principal); J44.9 Chronic obstructive pulmonary disease, unspecified; E11.9 Type 2 diabetes mellitus without complications; I10 Essential (primary) hypertension; Z79.51 Long term (current) use of inhaled steroids; Z89.511 Acquired absence of right leg below knee; Z87.891 Personal history of nicotine dependence; Z79.84 Long term (current) use of oral hypoglycemic drugs; Z79.4 Long term (current) use of insulin; Z79.899 Other long term (current) drug therapy
CPT/HCPCS: 99283

== ENCOUNTER 2022-06-16 13:34 | Inpatient (IN) | payer MEDICARE, OTHER ==
--- NOTE | 2022-06-16 14:14 | ED ---
General Adult HPI - General Source: patient, RN notes reviewed, old records reviewed Mode of arrival: ambulatory <Kiko Way - Last Filed: 06/16/22 14:58> <Alicia Plummer - Last Filed: 06/16/22 17:03> - General Chief complaint: Eye Problems Stated complaint: eye problem Time Seen by Provider: 06/16/22 13:44 - History of Present Illness Initial comments: 67-year-old female who presents for evaluation of abnormal outpatient testing. Patient had been seen by her parts expediter and it was retinal imaging and there was concern for retinal artery occlusion. She has been dealing with some worsening vision but this is been occurring over several weeks to months. No limb weakness or numbness. She has a mild headache. No speech abnormalities. She is not on any anticoagulation currently. Patient had presented earlier in the day but had to leave prior to workup and has returned for requested workup including vascular imaging. (Kiko Way) - Related Data Home Medications Medication Instructions Recorded Confirmed Cetirizine HCl 10 mg PO BID 08/17/20 12/14/21 Fluticasone Propion/Salmeterol 1 puff INHALATION RT-BID 08/17/20 12/14/21 [Advair 250-50 Diskus] Gabapentin 800 mg PO TID 08/17/20 12/14/21 Ibuprofen [Motrin] 600 mg PO TID PRN 08/17/20 12/14/21 Insulin Glargine,Hum.rec.anlog 55 unit SQ BID 08/17/20 12/14/21 [Lantus Solostar Pen] Losartan [Cozaar] 50 mg PO DAILY 08/17/20 12/14/21 Oxybutynin Chloride [Oxybutynin 10 mg PO DAILY 08/17/20 12/14/21 Chloride ER] Topiramate 50 mg PO BID 08/17/20 12/14/21 metFORMIN HCL [Glucophage] 1,000 mg PO BID 08/17/20 12/14/21 Cyclobenzaprine [Flexeril] 10 mg PO TID PRN 09/17/21 12/14/21 FLUoxetine HCL [PROzac] 40 mg PO DAILY 09/17/21 12/14/21 Fluocinolone 0.01% Body Oil 1 applic TOPICAL BID 09/17/21 12/14/21 Fluticasone Nasal [place] [Flonase 1 - 2 spr EA NOSTRIL HS 09/17/21 12/14/21 Nasal [place]] Albuterol Inhaler [Ventolin Hfa 2 puff INHALATION RT-QID PRN 12/14/21 12/14/21 Inhaler] HYDROcodone/APAP 10-325MG [[place] 1 tab PO Q6H PRN 12/14/21 12/14/21 10-325] Levothyroxine Sodium 88 mcg PO DAILY 12/14/21 12/14/21 QUEtiapine [SEROquel] 400 mg PO HS 12/14/21 12/14/21 Previous Rx's Medication Instructions Recorded Acetaminophen Tab [Tylenol] 650 mg PO Q6HR PRN tab 12/18/21 Benzocaine/Menthol Lozeng [Cepacol 1 each MUCOUS MEM Q4HR PRN lozenge 12/18/21 lozenge] guaiFENesin SYRUP 100MG/5ML 200 mg PO Q6HR PRN ml 12/18/21 [Robitussin] predniSONE 0 mg PO DIRECTED 12 Days #30 tab 12/18/21 Allergies Allergy/AdvReac Type Severity Reaction Status Date / Time No Known Allergies Allergy Verified 06/16/22 11:32 Review of Systems ROS Other: All systems not noted in ROS Statement are negative. <Kiko Way - Last Filed: 06/16/22 14:58> ROS Other: All systems not noted in ROS Statement are negative. <Alicia Plummer - Last Filed: 06/16/22 17:03> ROS Statement: Those systems with pertinent positive or pertinent negative responses have been documented in the HPI. Past Medical History Past Medical History: COPD, Diabetes Mellitus, Hypertension History of Any Multi-Drug Resistant Organisms: None Reported Past Surgical History: Back Surgery, Orthopedic Surgery Additional Past Surgical History / Comment(s): rt below knee amp Past Anesthesia/Blood Transfusion Reactions: No Reported Reaction Past Psychological History: Depression Smoking Status: Former smoker Past Alcohol Use History: Occasional Past Drug Use History: None Reported <Kiko Way - Last Filed: 06/16/22 14:58> General Exam General appearance: alert, in no apparent distress Head exam: Present: atraumatic, normocephalic Eye exam: Present: normal appearance, PERRL, EOMI ENT exam: Present: normal exam Neck exam: Present: normal inspection. Absent: tenderness Respiratory exam: Present: normal lung sounds bilaterally. Absent: respiratory distress, wheezes Cardiovascular Exam: Present: regular rate, normal rhythm GI/Abdominal exam: Present: soft. Absent: distended, tenderness Extremities exam: Present: other (Right leg amputation) Neurological exam: Present: alert, oriented X3, CN II-XII intact. Absent: motor sensory deficit Psychiatric exam: Present: normal affect, normal mood Skin exam: Present: warm, dry, intact <Kiko Way - Last Filed: 06/16/22 14:58> Course <Kiko Way - Last Filed: 06/16/22 14:58> Vital Signs 06/16/22 13:35 Temperature 98.0 F Pulse Rate 89 Respiratory 18 Rate Blood Pressure 140/67 O2 Sat by Pulse 97 Oximetry - Reevaluation(s) Reevaluation #1: 06/16/22 14:14 Visual acuity pending (Kiko Way) Reevaluation #2: 06/16/22 1500 Patient care signed out at shift change to Dr. Plummer awaiting imaging. (Kiko Way) EKG Findings - EKG Comments: EKG Findings:: EKG: Sinus rhythm low voltage, rate of 85, MA interval 180, QRS duration 83, QTC 416 <[address] - Last Filed: 06/16/22 14:58> Medical Decision Making - Lab Data Result diagrams: 06/16/22 14:03 06/16/22 14:03 <Kiko [address] - Last Filed: 06/16/22 14:58> - Lab Data Result diagrams: 06/16/22 14:03 06/16/22 14:03 <Alicia Plummer - Last Filed: 06/16/22 17:03> - Medical Decision Making I evaluated the patient myself. Reports to abnormal vision however cannot tell me which eye bothers her. Visual acuity is 20/100 in the right eye, 20/40 in the left eye. She does go over for CT of her brain as well as CT angiography. CT of brain demonstrates chronic small vessel ischemic change with low attenuation within the right diana. Spoke with Dr. Ran Dewitt in regards to the patients CT. he recommends aspirin, Plavix and admission for MRI. Patient was agreeable to admission. (Alicia Plummer) - Lab Data Lab Results 06/16/22 06/16/22 06/16/22 Range/Units 14:03 14:03 14:03 WBC 11.0 H (3.8-10.6) k/uL RBC 4.11 (3.80-5.40) m/uL Hgb 11.7 (11.4-16.0) gm/dL Hct 34.6 (34.0-46.0) % MCV 84.3 (80.0-100.0) fL MCH 28.4 (25.0-35.0) pg MCHC 33.7 (31.0-37.0) g/dL RDW 14.1 (11.5-15.5) % Plt Count 251 (150-450) k/uL MPV 6.8 Neutrophils % 71 % Lymphocytes % 16 % Monocytes % 5 % Eosinophils % 7 % Basophils % 1 % Neutrophils # 7.8 H (1.3-7.7) k/uL Lymphocytes # 1.7 (1.0-4.8) k/uL Monocytes # 0.5 (0-1.0) k/uL Eosinophils # 0.7 (0-0.7) k/uL Basophils # 0.1 (0-0.2) k/uL PT 10.0 (9.0-12.0) sec INR 0.9 (<1.2) APTT 26.1 (22.0-30.0) sec Sodium 133 L (137-145) mmol/L Potassium 4.3 (3.5-5.1) mmol/L Chloride 98 (98-107) mmol/L Carbon Dioxide 20 L (22-30) mmol/L Anion Gap 15 mmol/L BUN 25 H (7-17) mg/dL Creatinine 1.00 (0.52-1.04) mg/dL Est GFR (CKD-EPI)AfAm 68 (>60 ml/min/1.73 sqM) Est GFR (CKD-EPI)NonAf 59 (>60 ml/min/1.73 sqM) Glucose 177 H (74-99) mg/dL Calcium 8.8 (8.4-10.2) mg/dL Total Bilirubin 0.5 (0.2-1.3) mg/dL AST 20 (14-36) U/L ALT 18 (4-34) U/L Alkaline Phosphatase 102 (38-126) U/L Total Protein 7.7 (6.3-8.2) g/dL Albumin 4.7 (3.5-5.0) g/dL Disposition <Kiko Way - Last Filed: 06/16/22 14:58> Is patient prescribed a controlled substance at d/c from ED?: No Time of Disposition: 16:58 Decision to Admit Reason: Admit from EC Decision Date: 06/16/22 Decision Time: 16:58 <Alicia Plummer - Last Filed: 06/16/22 17:03> Clinical Impression: Vision changes, CVA (cerebral vascular accident) Disposition: ADMITTED IP TO THIS HOSP Condition: Stable Referrals: Yomi Kennedy MD [Primary Care Provider] - 1-2 days
[2022-06-16 14:26] LABS: Basophils # (A) 0.1 k/uL (0-0.2); Basophils % (A) 1 %; Eosinophils # (A) 0.7 k/uL (0-0.7); Eosinophils % (A) 7 %; HCT 34.6 % (34.0-46.0); HGB 11.7 gm/dL (11.4-16.0); Lymphocytes # (A) 1.7 k/uL (1.0-4.8); Lymphocytes % (A) 16 %; MCH 28.4 pg (25.0-35.0); MCHC 33.7 g/dL (31.0-37.0); MCV 84.3 fL (80.0-100.0); Mean Platelet Volume 6.8; Monocytes # (A) 0.5 k/uL (0-1.0); Monocytes % (A) 5 %; Neutrophils # (A) 7.8 k/uL (1.3-7.7); Neutrophils % (A) 71 %; Platelet Count 251 k/uL (150-450); RBC 4.11 m/uL (3.80-5.40); RDW 14.1 % (11.5-15.5)
[2022-06-16 14:35] LABS: INR 0.9 (<1.2); Partial Thromboplastin Time 26.1 sec (22.0-30.0)
[2022-06-16 14:46] LABS: Albumin 4.7 g/dL (3.5-5.0); Calcium 8.8 mg/dL (8.4-10.2); Potassium 4.3 mmol/L (3.5-5.1); Total Bilirubin 0.5 mg/dL (0.2-1.3); Total Protein 7.7 g/dL (6.3-8.2)
--- NOTE | 2022-06-16 16:04 | CT ---
EXAMINATION TYPE: CT brain wo con DATE OF EXAM: 06/16/2022 COMPARISON: None HISTORY: c/o changes in vision, neuro deficit, acute stroke suspected, altered mental status CT DLP: 1092.6 mGycm Automated exposure control for dose reduction was used. Helical imaging through the brain FINDINGS: There are cerebral vascular calcifications present. Periventricular white matter shows patchy low att enuation. Focal area of low-attenuation present within the asmita on the right. The calvarium is intact . Paranasal sinuses and mastoid air cells as visualized are normal. There is no hemorrhage or hydroce phalus. IMPRESSION: NONSPECIFIC WHITE MATTER DEMYELINATION MAY BE RELATED TO CHRONIC SMALL VESSEL ISCHEMIC CHANGE, ABNORM AL LOW ATTENUATION WITHIN THE RIGHT ASMITA CONSIDER BRAIN MRI
--- NOTE | 2022-06-16 16:47 | CT ---
EXAMINATION TYPE: CT angio head neck DATE OF EXAM: 06/16/2022 COMPARISON: None HISTORY: ams, visual changes CT DLP: 411.8 mGycm Automated exposure control for dose reduction was used. CONTRAST: Performed with IV Contrast, patient injected with 65cc mL of Isovue 370. There are 3-D post processed images. Images obtained from the aortic arch to the vertex of the brain. There is normal branching pattern of the great vessels on the aortic arch. There is bilateral arteria l flow in the subclavian arteries. There is arterial flow in the common internal and external carotid arteries bilaterally. There is minimal plaque at the carotid artery bifurcations no evidence of any significant stenosis. Stenosis less than 5%. There is arterial flow in both vertebral arteries. There is arterial flow in the vertebral basilar artery system there is no evidence of carotid or vertebral artery aneurysm or dissection. There is arterial flow in the anterior middle and posterior cerebral arteries bilaterally. No mass ef fect. No evidence of intracranial arterial stenosis. No sign of intracranial aneurysm or neovasculari ty. There is normal enhancement of the venous sinuses. IMPRESSION: Negative CT angiogram of the neck. Negative CT angiogram of the brain
[2022-06-16] MEDS ORDERED: ASPIRIN 325 MG TAB PO STA (17:00)
[2022-06-16] MEDS: CLOPIDOGREL 75 MG TAB PO SCH (17:06)
[2022-06-16] MEDS: ATORVASTATIN 40 MG TAB PO SCH ×2 (17:06→17:10)
[2022-06-16 20:01] LABS: Glucose,Whole Blood 193 mg/dL (70-110)
[2022-06-16] MEDS ORDERED: TRIAMCINOLONE 0.1% CREAM 80 GM TUBE TOPICAL PRN (20:39)
[2022-06-16] MEDS ORDERED: CYCLOBENZAPRINE 10 MG TAB PO PRN (20:39)
[2022-06-16] MEDS ORDERED: ALBUTEROL NEBULIZED 2.5 MG/3 ML INHALATION PRN (20:39)
[2022-06-16] MEDS: HYDROcodone/APAP 10-325MG 1 EACH TAB PO PRN (21:53)
[2022-06-16] MEDS: FAMOTIDINE 20 MG TAB PO SCH (21:54)
[2022-06-16] MEDS: FLUTICASONE 50MCG/SPRAY NASAL 16GM EA NOSTRIL SCH (21:54)
[2022-06-16] MEDS: QUEtiapine 400 MG TAB PO SCH (21:55)
[2022-06-16] MEDS: INSULIN DETEMIR (LEVEMIR) 100 UNIT/ML SYR SQ SCH (21:55)
[2022-06-16] MEDS: NICOTINE 14MG/24HR PATCH TRANSDERM SCH (21:55)
[2022-06-16] MEDS: GABAPENTIN 400 MG CAP PO SCH (21:55)
[2022-06-16] MEDS: polyethylene glycoL 3350 17 GM POWD.PACK PO SCH (21:55)
[2022-06-16] MEDS: LORATADINE 10 MG TAB PO SCH (21:55)
[2022-06-16] MEDS: TOPIRAMATE 25 MG TAB PO SCH (21:55)
[2022-06-17] MEDS: HYDROcodone/APAP 10-325MG 1 EACH TAB PO PRN ×4 (04:37→23:36)
[2022-06-17 06:12] LABS: Glucose,Whole Blood 257 mg/dL (70-110)
[2022-06-17] MEDS: IBUPROFEN 600 MG TAB PO SCH ×3 (07:07→16:49)
[2022-06-17] MEDS: LEVOTHYROXINE 88 MCG TAB PO SCH (07:07)
[2022-06-17] MEDS: INSULIN DETEMIR (LEVEMIR) 100 UNIT/ML SYR SQ SCH ×2 (07:07→21:44)
[2022-06-17] MEDS: SYMBICORT 160-4.5 MCG INHALER INHALATION SCH ×2 (07:55→19:43)
[2022-06-17] MEDS: NICOTINE 14MG/24HR PATCH TRANSDERM SCH (09:28)
[2022-06-17] MEDS: OXYBUTYNIN 10 MG TAB.ER.24 PO SCH (09:28)
[2022-06-17] MEDS: FAMOTIDINE 20 MG TAB PO SCH (09:28)
[2022-06-17] MEDS: TOPIRAMATE 25 MG TAB PO SCH ×2 (09:28→21:45)
[2022-06-17] MEDS: ASPIRIN 325 MG TAB PO SCH (09:28)
[2022-06-17] MEDS: CLOPIDOGREL 75 MG TAB PO SCH (09:29)
[2022-06-17] MEDS: GABAPENTIN 400 MG CAP PO SCH ×3 (09:29→21:45)
[2022-06-17] MEDS: LORATADINE 10 MG TAB PO SCH ×2 (09:29→21:45)
[2022-06-17] MEDS: polyethylene glycoL 3350 17 GM POWD.PACK PO SCH (09:30)
--- NOTE | 2022-06-17 09:44 | P.CNNES ---
History of Present Illness Consult date: 06/17/22 Requesting physician: Alicia Plummer Reason for Consult: acute visual disturbance, CVA History of Present Illness: As is a 67-year-old woman with history of diabetes, hypertension, below the right knee amputation, tobacco use who presented that because of visual disturbance. Patient was the sent by her information systems specialist team for further evaluation concerning for stroke. Patient stated that she's been having [place] vision the last 6 months and has been worsening but denied any diplopia, difficulty getting her words out, any numbness tingling, any new focal weakness. She stated that she has years of mild headache over the right temporal but has not the change in the severity. She was valid by her information systems specialist and the she had retinal imaging and there is a concern for retinal artery occlusion and according to the ED notes as been occurring over several weeks to months but according to the patient's she stated for 6 month at least. Patient is not on any antiplatelets or anticoagulation. He is on Lipitor 40 mg daily She denies of any headache currently. Denies any history of stroke. She smokes half a pack a day for years. Some of the workup during his hospital visit consisted of: CT of the head is reported as nonspecific white matter demyelinating may be related to chronic small vessel ischemic change, abnormal low attenuation within the right diana consider brain MRI. I personally reviewed the CT of the head and there is no acute ischemic stroke she does have hypoattenuation over the right diana but that seems subacute to chronic and I would see more towards chronic. There is no at workable hemorrhage. CT angiography of the head and neck was reported as negative ESR is 31 normal supposed to be between 0 and 20 while the CRP is less than 0.5 which is considered normal TSH is 3.550 No IV TPA since the patient's symptoms has been going on for at least 6 months and the risk outweighed the benefit. Review of Systems Review of system: The 12 point system was reviewed and apparent positive and negative per HPI. Past Medical History Past Medical History: COPD, Diabetes Mellitus, Hypertension History of Any Multi-Drug Resistant Organisms: None Reported Past Surgical History: Back Surgery, Orthopedic Surgery Additional Past Surgical History / Comment(s): rt below knee amp, Left 1st toe amputation Past Anesthesia/Blood Transfusion Reactions: No Reported Reaction Past Psychological History: Depression Smoking Status: Current every day smoker Past Alcohol Use History: None Reported Past Drug Use History: None Reported Additional Drug Use History / Comment(s): Patient states she smokes about 10 cig/day. Medications and Allergies Home Medications Medication Instructions Recorded Confirmed Type Cetirizine HCl 10 mg PO BID 08/17/20 06/16/22 History Gabapentin 800 mg PO TID 08/17/20 06/16/22 History Ibuprofen [Motrin] 600 mg PO TID-W/MEALS 08/17/20 06/16/22 History Insulin Glargine,Hum.rec.anlog 55 unit SQ BID 08/17/20 06/16/22 History [Lantus Solostar Pen] Losartan [Cozaar] 50 mg PO DAILY@1600 08/17/20 06/16/22 History Oxybutynin Chloride [Oxybutynin 10 mg PO DAILY 08/17/20 06/16/22 History Chloride ER] Topiramate 50 mg PO BID 08/17/20 06/16/22 History metFORMIN HCL [Glucophage] 1,000 mg PO BID 08/17/20 06/16/22 History Cyclobenzaprine [Flexeril] 10 mg PO BID PRN 09/17/21 06/16/22 History FLUoxetine HCL [PROzac] 40 mg PO DAILY@1600 09/17/21 06/16/22 History Fluticasone Nasal [place] [Flonase 1 - 2 spr EA NOSTRIL HS 09/17/21 06/16/22 History Nasal [place]] Albuterol Inhaler [Ventolin Hfa 2 puff INHALATION RT-QID PRN 12/14/21 06/16/22 History Inhaler] HYDROcodone/APAP 10-325MG [[place] 1 tab PO Q6H PRN 12/14/21 06/16/22 History 10-325] Levothyroxine Sodium 88 mcg PO DAILY 12/14/21 06/16/22 History QUEtiapine [SEROquel] 400 mg PO HS 12/14/21 06/16/22 History Atorvastatin [Lipitor] 40 mg PO DAILY@1600 06/16/22 06/16/22 History Cholecalciferol (Vitamin D3) 125 mcg PO DAILY@1600 06/16/22 06/16/22 History [Vitamin D3 (125 MCG = 5,000 IU)] Famotidine 40 mg PO BID 06/16/22 06/16/22 History Fluticasone Propion/Salmeterol 1 puff INHALATION RT-BID 06/16/22 06/16/22 History [Advair 500-50 Diskus] Multivitamins, Thera [Multivitamin 1 tab PO DAILY@1600 06/16/22 06/16/22 History (formulary)] Triamcinolone 0.1% Cream [Kenalog 1 applic TOPICAL BID PRN 06/16/22 06/16/22 History 0.1% Cream] Vitamin E (Dl,Tocopheryl Acet) 400 unit PO DAILY@1600 06/16/22 06/16/22 History [Vitamin E (400 Iu = 180 mg)] Allergies Allergy/AdvReac Type Severity Reaction Status Date / Time No Known Allergies Allergy Verified 06/16/22 17:39 Physical Examination - Vital Signs Vital Signs: Vital Signs Temp Pulse Pulse Resp BP BP Pulse Ox 06/17/22 04:00 98.1 F 87 18 141/75 98 06/17/22 02:00 87 19 06/17/22 00:00 98.9 F 87 19 114/65 97 06/16/22 20:00 97.8 F 85 19 144/72 97 06/16/22 18:30 97.6 F 79 16 178/75 98 06/16/22 17:14 98.2 F 77 18 161/72 99 06/16/22 13:35 98.0 F 89 18 140/67 97 Intake and Output 06/16/22 06/17/22 06/17/22 22:59 06:59 14:59 Intake Total 240 Balance 240 Intake: Oral 240 Other: # Voids 1 Weight 90.9 kg GENERAL: The patient is lying in bed and is not in acute distress. CHEST: The heart rate is regular rate rhythm. No murmurs to auscultation. LUNG: Has mild to moderate wheezing throughout. Not labored breathing. ABDOMEN/GI: Bowel sounds present in all 4 quadrants. No tenderness to palpation throughout. NEUROLOGICAL: Higher mental function: The patient is awake, alert, oriented to self, place and time. Patient is following commands. No aphasia and no neglect. Cranial nerves: The pupils are round, equal and reactive to light and acco mmodation. Visual garcia I felt has left lateral upper quadrant field cut over only the left eye (this was preformed twice) otherwise full throughout. Extraocular movement is intact no nystagmus is noted. Facial sensation is normal to touch throughout. The facial strength is normal throughout. Hearing is normal bilaterally to hand rub. Tongue is midline and moved [id number] without any difficulty. No dysarthria is noted. Shoulder shrug is normal bilaterally. Motor: The strength is has below right knee amputation. Otherwise 5 over 5 throughout. Normal tone and bulk. Cerebellum: Normal finger to nose bilaterally. Sensation: Sensation is normal to touch throughout. Reflexes (right/left): 1+ throughout except could not assess right lower since has amputation. Plantars is mute over the left. Results - Laboratory Findings CBC and BMP: 06/16/22 14:03 06/16/22 14:03 Abnormal Lab Findings: Abnormal Labs 06/16/22 06/16/22 06/16/22 14:03 14:03 14:03 WBC 11.0 H Neutrophils # 7.8 H ESR 31 H Sodium 133 L Carbon Dioxide 20 L BUN 25 H Glucose 177 H POC Glucose (mg/dL) 06/16/22 06/17/22 20:00 06:11 WBC Neutrophils # ESR Sodium Carbon Dioxide BUN Glucose POC Glucose (mg/dL) 193 H 257 H Assessment and Plan Assessment: Is a 67-year-old woman who has been having blurry vision of both eyes with a past 6 months that has been worsening according to her but she was sent by her information systems specialist for concern of retinal artery occlusion and further evaluation Acute on chronic Visual disturbance of both eyes and her information systems specialist is concerned about retinal artery occlusion. Rule out stroke. CTA head/neck is negative. Diabetes mellitus Below the right knee amputation Tobacco use and smokes about a half a pack a day Plan: I ordered MRI of the brain We started the patient on aspirin we 25 mg daily as well as Plavix 75 mg daily for secondary stroke prophylaxis as well as continue Lipitor 40 mg daily for sec ondary stroke prophylaxis. 2-D echo, lipid panel is consulted and pending Her elevated ESR is very mildly elevated but does not appear to be vasculitis currently she does not have any headache and does not have any issues the with chewing Continue neuro checks On cardiac monitoring Consulted PT and OT for gait training She was counseled on tobacco cessation We'll defer the rest of the medical management to primary team For DVT prophylaxis start the patient on subcu heparin 5000 units every 8 hours The plan was discussed with the patient. Thank you for the consultation Ran Dewitt M.D. Neuro-hospitalist Time with Patient: Greater than 30
[2022-06-17] MEDS ORDERED: LORazepam 1 MG/0.5 ML VIAL IV ONE (11:00)
[2022-06-17 11:44] LABS: Chol/HDL Ratio 2.58 Ratio; LDL Cholesterol,Calculated 33.3 mg/dL (0.0-131.0); VLDL Calculation 16.78 mg/dL (5.00-40.00)
[2022-06-17 12:01] LABS: Glucose,Whole Blood 285 mg/dL (70-110)
--- NOTE | 2022-06-17 12:40 | MR ---
EXAMINATION TYPE: MR brain wo con DATE OF EXAM: 06/17/2022 11:53 AM COMPARISON: CT brain 06/16/2022. CLINICAL INDICATION:Female, 67 years old with history of stroke. visual disturbance; TECHNIQUE: Multi planar, multi sequence imaging was performed through the brain including: T1, T2, In version recovery, Diffusion weighted imaging, and gradient echo imaging. No gadolinium was given. FINDINGS: Motion limits evaluation. The hansen-white junctions, ventricular system, and cisterns appear unremarkable. Patchy areas of high T2 signal intensity are seen within the periventricular white matter. Midline structures show no abn ormality. Diffusion-weighted imaging shows no evidence of restricted diffusion. The bone marrow signal is within normal limits. The paranasal sinuses are unremarkable, bilateral aph rodney. IMPRESSION: 1. Motion limited exam without evidence of intracranial mass or acute/subacute infarct. 2. Nonspecific white matter changes, likely secondary to small vessel ischemic disease.
--- NOTE | 2022-06-17 12:40 | CA ---
Transthoracic Echo Report Name: Akosua Yost Age: 67 Gender: F : 1955 Exam Date: 06/17/2022 08:59 Exam Location: [facility] Ht (in): 62 Wt (lb): 200 Ordering Physician: Ran Dewitt MD Attending/Referring Phys: [employer] Floor Worker Kecia Bergman RDCS Procedure CPT: Indications: stroke Cardiac Hx: Technical Quality: Good Contrast 1: Total Dose (mL): Contrast 2: Total Dose (mL): MEASUREMENTS (Male / Female) Normal Values 2D ECHO LV Diastolic Diameter PLAX 4.7 cm 4.2 - 5.9 / 3.9 - 5.3 cm LV Systolic Diameter PLAX 3.4 cm IVS Diastolic Thickness 1.3 cm 0.6 - 1.0 / 0.6 - 0.9 cm LVPW Diastolic Thickness 1.3 cm 0.6 - 1.0 / 0.6 - 0.9 cm LV Relative Wall Thickness 0.5 RV Internal Dim ED PLAX 2.6 cm LA Systolic Diameter LX 4.0 cm 3.0 - 4.0 / 2.7 - 3.8 cm LA Volume 46.2 cm??? 18 - 58 / 22 - 52 cm??? M-MODE Aortic Root Diameter MM 3.0 cm LA Systolic Diameter MM 4.4 cm LA Ao Ratio MM 1.5 MV E Point Septal Separation 0.6 cm AV Cusp Separation MM 2.1 cm DOPPLER MV Area PHT 2.7 cm??? Mitral E Point Velocity 75.2 cm/s Mitral A Point Velocity 104.0 cm/s Mitral E to A Ratio 0.7 MV Deceleration Time 280.6 ms MV E' Velocity 5.3 cm/s Mitral E to MV E' Ratio 14.1 TR Peak Velocity 209.5 cm/s TR Peak Gradient 17.6 mmHg Right Ventricular Systolic Press 22.6 mmHg FINDINGS Left Ventricle Left ventricular ejection fraction is estimated at 50-55%. Mildly increased left ventricular wall thickness. Right Ventricle Normal right ventricular size and function. Right Atrium Normal right atrial size. Left Atrium Mildly increased left atrial diameter. Mitral Valve Structurally normal mitral valve. Mild mitral regurgitation. Aortic Valve Trileaflet aortic valve. Tricuspid Valve Structurally normal tricuspid valve. Mild tricuspid regurgitation. Pulmonic Valve Structurally normal pulmonic valve. Pericardium Normal pericardium. Aorta Normal size aortic root and proximal ascending aorta. CONCLUSIONS Normal LV function Mild mitral regurgitation Mild tricuspid regurgitation Previewed by: Dr. Ghassan Davalos MD (Electronically Signed) Final Date: 17 June 2022 12:39
[2022-06-17] MEDS ORDERED: VITAMIN E (DL,TOCOPHERYL ACET) 400 UNIT (180 MG) CAP PO SCH (16:00)
[2022-06-17] MEDS ORDERED: CHOLECALCIFEROL 125 MCG (5000 IU) TABLET PO SCH (16:00)
[2022-06-17] MEDS ORDERED: FLUoxetine HCL 20 MG CAP PO SCH (16:00)
[2022-06-17] MEDS ORDERED: ATORVASTATIN 40 MG TAB PO SCH (16:00)
[2022-06-17] MEDS ORDERED: LOSARTAN 50 MG TAB PO SCH (16:00)
[2022-06-17] MEDS ORDERED: MULTIVITAMINS, THERA 1 EACH TAB PO SCH (16:00)
[2022-06-17 16:46] LABS: Glucose,Whole Blood 142 mg/dL (70-110)
[2022-06-17] MEDS: HEPARIN SODIUM,PORCINE/PF 5,000 UNIT/0.5 ML SYRINGE SQ SCH ×2 (16:48→23:36)
[2022-06-17 20:11] LABS: Glucose,Whole Blood 161 mg/dL (70-110)
[2022-06-17] MEDS: QUEtiapine 400 MG TAB PO SCH (21:45)
[2022-06-17] MEDS: FLUTICASONE 50MCG/SPRAY NASAL 16GM EA NOSTRIL SCH (21:45)
--- NOTE | 2022-06-17 23:13 | P.HPIM ---
History of Present Illness H&P Date: 06/17/22 Chief Complaint: Blurred vision Patient is a 67-year-old female with a known history of hypertension, diabetes type 2 insulin-dependent, COPD, depression current everyday smoker and right BKA history and left first toe amputation was sent to the hospital due to complaints of visual disturbance. Patient was seen by her helminthologist and concerned about acute CVA and was referred to ER. Patient states that he has been having worsening blurry vision for the past few months. Otherwise denies any focal weakness. No slurred speech or facial droop. Denies any trouble finding words. Denies any history of prior CVA. No complaints of fever or chills. No cough or sputum production. Denies any eye pain. Patient has been smoking half a pack a day currently. CT head showed nonspecific white matter demyelination may be related to chronic small vessel ischemic change. MRI of the brain. CT angiogram of the head and neck showed negative study. EKG showed sinus rhythm low voltage in precordial leads. Laboratory data showed WBC 11.0 hemoglobin 11.7 platelets 251 Sodium 133 potassium 4.3 chloride 98 bicarb is 28 BUN 25 creatinine 1.0 blood sugar is 177 Liver enzymes are not elevated TSH within normal limits. CRP not elevated. Acute on chronic visual disturbance in both eyes concerning for retinal artery occlusion. Rule out acute CVA. Diabetes type 2 insulin-dependent Ongoing nicotine addiction COPD not in exacerbation History of right BKA and left first ray amputation Depression Hypertension Hypothyroidism DVT prophylaxis with heparin subcu GI prophylaxis Pepcid twice daily Plan: Patient withheld on telemetry monitoring. Started on aspirin Plavix and statins. Patient had CT head and CT angio of the head and neck was done which showed negative study for any acute process. MRI of the brain was ordered and complete stroke work-up including 2D echocardiogram and neurology is on board. Continue to follow closely. Smoking cessation has been counseled extensively. Past Medical History Past Medical History: COPD, Diabetes Mellitus, Hypertension History of Any Multi-Drug Resistant Organisms: None Reported Past Surgical History: Back Surgery, Orthopedic Surgery Additional Past Surgical History / Comment(s): rt below knee amp, Left 1st toe amputation Past Anesthesia/Blood Transfusion Reactions: No Reported Reaction Past Psychological History: Depression Smoking Status: Current every day smoker Past Alcohol Use History: None Reported Past Drug Use History: None Reported Additional Drug Use History / Comment(s): Patient states she smokes about 10 cig/day. Medications and Allergies Home Medications Medication Instructions Recorded Confirmed Type Cetirizine HCl 10 mg PO BID 08/17/20 06/16/22 History Gabapentin 800 mg PO TID 08/17/20 06/16/22 History Ibuprofen [Motrin] 600 mg PO TID-W/MEALS 08/17/20 06/16/22 History Insulin Glargine,Hum.rec.anlog 55 unit SQ BID 08/17/20 06/16/22 History [Lantus Solostar Pen] Losartan [Cozaar] 50 mg PO DAILY@1600 08/17/20 06/16/22 History Oxybutynin Chloride [Oxybutynin 10 mg PO DAILY 08/17/20 06/16/22 History Chloride ER] Topiramate 50 mg PO BID 08/17/20 06/16/22 History metFORMIN HCL [Glucophage] 1,000 mg PO BID 08/17/20 06/16/22 History Cyclobenzaprine [Flexeril] 10 mg PO BID PRN 09/17/21 06/16/22 History FLUoxetine HCL [PROzac] 40 mg PO DAILY@1600 09/17/21 06/16/22 History Fluticasone Nasal [place] [Flonase 1 - 2 spr EA NOSTRIL HS 09/17/21 06/16/22 History Nasal [place]] Albuterol Inhaler [Ventolin Hfa 2 puff INHALATION RT-QID PRN 12/14/21 06/16/22 History Inhaler] HYDROcodone/APAP 10-325MG [[place] 1 tab PO Q6H PRN 12/14/21 06/16/22 History 10-325] Levothyroxine Sodium 88 mcg PO DAILY 12/14/21 06/16/22 History QUEtiapine [SEROquel] 400 mg PO HS 12/14/21 06/16/22 History Atorvastatin [Lipitor] 40 mg PO DAILY@1600 06/16/22 06/16/22 History Cholecalciferol (Vitamin D3) 125 mcg PO DAILY@1600 06/16/22 06/16/22 History [Vitamin D3 (125 MCG = 5,000 IU)] Famotidine 40 mg PO BID 06/16/22 06/16/22 History Fluticasone Propion/Salmeterol 1 puff INHALATION RT-BID 06/16/22 06/16/22 History [Advair 500-50 Diskus] Multivitamins, Thera [Multivitamin 1 tab PO DAILY@1600 06/16/22 06/16/22 History (formulary)] Triamcinolone 0.1% Cream [Kenalog 1 applic TOPICAL BID PRN 06/16/22 06/16/22 History 0.1% Cream] Vitamin E (Dl,Tocopheryl Acet) 400 unit PO DAILY@1600 06/16/22 06/16/22 History [Vitamin E (400 Iu = 180 mg)] Allergies Allergy/AdvReac Type Severity Reaction Status Date / Time No Known Allergies Allergy Verified 06/16/22 17:39 Physical Exam Vitals: Vital Signs Temp Pulse Pulse Resp BP BP Pulse Ox 06/17/22 04:00 98.1 F 87 18 141/75 98 06/17/22 02:00 87 19 06/17/22 00:00 98.9 F 87 19 114/65 97 06/16/22 20:00 97.8 F 85 19 144/72 97 06/16/22 18:30 97.6 F 79 16 178/75 98 06/16/22 17:14 98.2 F 77 18 161/72 99 06/16/22 13:35 98.0 F 89 18 140/67 97 Intake and Output 06/16/22 06/17/22 06/17/22 22:59 06:59 14:59 Intake Total 240 Balance 240 Intake: Oral 240 Other: # Voids 1 Weight 90.9 kg Results CBC & Chem 7: 06/16/22 14:03 06/16/22 14:03 Labs: Abnormal Lab Results - Last 24 Hours (Table) 06/16/22 06/16/22 06/16/22 Range/Units 14:03 14:03 14:03 WBC 11.0 H (3.8-10.6) k/uL Neutrophils # 7.8 H (1.3-7.7) k/uL ESR 31 H (0-20) mm/hr Sodium 133 L (137-145) mmol/L Carbon Dioxide 20 L (22-30) mmol/L BUN 25 H (7-17) mg/dL Glucose 177 H (74-99) mg/dL POC Glucose (mg/dL) (70-110) mg/dL 06/16/22 06/17/22 Range/Units 20:00 06:11 WBC (3.8-10.6) k/uL Neutrophils # (1.3-7.7) k/uL ESR (0-20) mm/hr Sodium (137-145) mmol/L Carbon Dioxide (22-30) mmol/L BUN (7-17) mg/dL Glucose (74-99) mg/dL POC Glucose (mg/dL) 193 H 257 H (70-110) mg/dL Thrombosis Risk Factor Assmnt - Choose All That Apply Any of the Below Risk Factors Present?: Yes Each Factor Represents 1 point: Abnormal pulmonary function (COPD), Obesity (BMI >25) Other Risk Factors: Yes Each Risk Factor Represents 2 Points: Age 61-74 years Other congenital or acquired thrombophilia - If yes, enter type in comment: No Thrombosis Risk Factor Assessment Total Risk Factor Score: 4 Thrombosis Risk Factor Assessment Level: Moderate Risk
[2022-06-18] MEDS: LEVOTHYROXINE 88 MCG TAB PO SCH (05:51)
[2022-06-18] MEDS: HYDROcodone/APAP 10-325MG 1 EACH TAB PO PRN ×2 (05:51→12:28)
[2022-06-18 06:11] LABS: Glucose,Whole Blood 142 mg/dL (70-110)
[2022-06-18 06:20] LABS: Basophils % (A) 1 %; Eosinophils # (A) 0.8 k/uL (0-0.7); Eosinophils % (A) 9 %; HCT 31.2 % (34.0-46.0); HGB 10.5 gm/dL (11.4-16.0); Lymphocytes # (A) 2.2 k/uL (1.0-4.8); Lymphocytes % (A) 26 %; MCH 28.5 pg (25.0-35.0); MCHC 33.8 g/dL (31.0-37.0); MCV 84.3 fL (80.0-100.0); Mean Platelet Volume 6.6; Monocytes # (A) 0.5 k/uL (0-1.0); Monocytes % (A) 6 %; Neutrophils # (A) 4.7 k/uL (1.3-7.7); Neutrophils % (A) 56 %; Platelet Count 231 k/uL (150-450); WBC 8.4 k/uL (3.8-10.6)
[2022-06-18] MEDS: INSULIN DETEMIR (LEVEMIR) 100 UNIT/ML SYR SQ SCH (06:28)
[2022-06-18 06:48] LABS: Calcium 8.7 mg/dL (8.4-10.2); Potassium 4.2 mmol/L (3.5-5.1)
[2022-06-18] MEDS: SYMBICORT 160-4.5 MCG INHALER INHALATION SCH (08:14)
[2022-06-18] MEDS ORDERED: FAMOTIDINE 20 MG TAB PO SCH (09:00)
[2022-06-18] MEDS: ASPIRIN 325 MG TAB PO SCH (10:17)
[2022-06-18] MEDS: NICOTINE 14MG/24HR PATCH TRANSDERM SCH (10:17)
[2022-06-18] MEDS: CLOPIDOGREL 75 MG TAB PO SCH (10:18)
[2022-06-18] MEDS: GABAPENTIN 400 MG CAP PO SCH (10:18)
[2022-06-18] MEDS: TOPIRAMATE 25 MG TAB PO SCH (10:18)
[2022-06-18] MEDS: IBUPROFEN 600 MG TAB PO SCH (10:18)
[2022-06-18] MEDS: OXYBUTYNIN 10 MG TAB.ER.24 PO SCH (10:19)
[2022-06-18] MEDS: polyethylene glycoL 3350 17 GM POWD.PACK PO SCH (10:19)
[2022-06-18] MEDS: HEPARIN SODIUM,PORCINE/PF 5,000 UNIT/0.5 ML SYRINGE SQ SCH (10:19)
[2022-06-18] MEDS: LORATADINE 10 MG TAB PO SCH (10:19)
[2022-06-18 11:39] LABS: Glucose,Whole Blood 178 mg/dL (70-110)
--- NOTE | 2022-06-18 11:41 | P.PN ---
Subjective Progress Note Date: 06/18/22 The patient seen at bedside and she feels drastically better. She denies of any neurological deficits. She denies any worsening of her vision. Denies of any diplopia. Objective - Vital Signs Vital signs: Vital Signs Temp 98.0 F 06/18/22 04:00 Pulse 87 06/18/22 04:00 Resp 19 06/18/22 04:00 BP 142/77 06/18/22 04:00 Pulse Ox 97 06/18/22 04:00 FiO2 Intake & Output 06/17/22 06/18/22 06/18/22 18:59 06:59 18:59 Intake Total 360 358 Balance 360 358 Intake: Oral 360 358 Other: # Voids 3 1 - Exam GENERAL: The patient is lying in bed and is not in acute distress. NEUROLOGICAL: Higher mental function: The patient is awake, alert, oriented to self, place and time. Patient is following commands. No aphasia and no neglect. Cranial nerves: The pupils are round, equal and reactive to light and accommodation. Visual garcia full throughout. Extraocular movement is intact no nystagmus is noted. Facial sensation is normal to touch throughout. The facial strength is normal throughout. Hearing is normal bilaterally to hand rub. Tongue is midline and moved [id number] without any difficulty. No dysarthria is noted. Shoulder shrug is normal bilaterally. Motor: The strength is has below right knee amputation. Otherwise 5 over 5 throughout. Normal tone and bulk. Cerebellum: Normal finger to nose bilaterally. Sensation: Sensation is normal to touch throughout. Reflexes (right/left): 1+ throughout except could not assess right lower since has amputation. Plantars is mute over the left. Some of the workup during his hospital visit consisted of: Lipid panel triglycerides of 83, cholesterol of 82, LDLs 33 and HDL of 31. TSH is 3.55 ESR is 31 normal supposed to be between 0 and 20 while the CRP is less than 0.5 which is considered normal CT of the head is reported as nonspecific white matter demyelinating may be related to chronic small vessel ischemic change, abnormal low attenuation within the right diana consider brain MRI. I personally reviewed the CT of the head and there is no acute ischemic stroke she does have hypoattenuation over the right diana but that seems subacute to chronic and I would see more towards chronic. There is no at workable hemorrhage. CT angiography of the head and neck was reported as negative 2-D echo was reported as normal left ventricle function. Mild mitral regurgitation. Mild tricuspid regurgitation. MRI the brain is reported as motion limited exam without evidence of intracranial mass or acute subacute infarct. Nonspecific white matter changes likely secondary to small vessel ischemic disease. I personally reviewed the MRI and there is no acute subacute ischemia and there is no mass effect. On the FLAIR she has some hyperintensity over the the right medial pontine lesion that is a small and likely due to a small vessel disease - Labs CBC & Chem 7: 06/18/22 05:26 06/18/22 05:26 Labs: Abnormal Lab Results - Last 24 Hours (Table) 06/17/22 06/17/22 06/17/22 Range/Units 06:41 12:00 16:44 RBC (3.80-5.40) m/uL Hgb (11.4-16.0) gm/dL Hct (34.0-46.0) % Eosinophils # (0-0.7) k/uL Sodium (137-145) mmol/L BUN (7-17) mg/dL Glucose (74-99) mg/dL POC Glucose (mg/dL) 285 H 142 H (70-110) mg/dL HDL Cholesterol 31.80 L (40.00-60.00) mg/dL 06/17/22 06/18/22 06/18/22 Range/Units 20:10 05:26 05:26 RBC 3.70 L (3.80-5.40) m/uL Hgb 10.5 L (11.4-16.0) gm/dL Hct 31.2 L (34.0-46.0) % Eosinophils # 0.8 H (0-0.7) k/uL Sodium 132 L (137-145) mmol/L BUN 23 H (7-17) mg/dL Glucose 104 H (74-99) mg/dL POC Glucose (mg/dL) 161 H (70-110) mg/dL HDL Cholesterol (40.00-60.00) mg/dL 06/18/22 Range/Units 06:09 RBC (3.80-5.40) m/uL Hgb (11.4-16.0) gm/dL Hct (34.0-46.0) % Eosinophils # (0-0.7) k/uL Sodium (137-145) mmol/L BUN (7-17) mg/dL Glucose (74-99) mg/dL POC Glucose (mg/dL) 142 H (70-110) mg/dL HDL Cholesterol (40.00-60.00) mg/dL Assessment and Plan Assessment: Is a 67-year-old woman who has been having blurry vision of both eyes with a past 6 months that has been worsening according to her but she was sent by her skin care specialist for concern of retinal artery occlusion and further evaluation Acute on chronic Visual disturbance of both eyes and her skin care specialist is concerned about retinal artery occlusion. No acute or subacute ischemic stroke on MRI Brain. CTA head/neck is negative. Recommend the patient to have her risk factor controlled (mainly DM, avoid tobacco use). Diabetes mellitus Below the right knee amputation Tobacco use and smokes about a half a pack a day Plan: Is the patient does not have acute subacute stroke I stopped the Plavix but continued aspirin 325 daily. Continue Lipitor 40 mg daily for secondary stroke prophylaxis. Her elevated ESR is very mildly elevated but does not appear to be vasculitis currently she does not have any headache and does not have any issues the with chewing Continue neuro checks On cardiac monitoring Consulted PT and OT for gait training She was counseled on tobacco cessation We'll defer the rest of the medical management to primary team For DVT prophylaxis on subcu heparin 5000 units every 8 hours Recommend the patient to follow-up with her eye specialists regarding her eye issues. The plan was discussed with the patient. No additional workup is needed and the patient is clear for discharge from a neurologic perspective. We'll sign off. Please reconsult if needed. Ran Dewitt M.D. Neuro-hospitalist Time with Patient: Less than 30
[2022-06-18 14:43] VITALS: PULSE 76; RESP 16
[2022-06-18 14:47] VITALS: BP 159/76; TEMP 97.9
[2022-06-19 09:47] LABS: Estimated Average Glucose CANCELED
== END 2022-06-18 15:43 | disposition home health service (06) | DRG 125 ==
LOC: EC 13:34 → 3SCARD 17:00
PROVIDERS: ADMIT Internal Medicine; ATTEND Internal Medicine
DX: H53.8 Other visual disturbances (principal); F17.210 Nicotine dependence, cigarettes, uncomplicated; F32.A Depression, unspecified; I10 Essential (primary) hypertension; J44.9 Chronic obstructive pulmonary disease, unspecified; E03.9 Hypothyroidism, unspecified; E11.9 Type 2 diabetes mellitus without complications; Z79.4 Long term (current) use of insulin; Z79.84 Long term (current) use of oral hypoglycemic drugs; Z79.890 Hormone replacement therapy; Z79.899 Other long term (current) drug therapy; Z79.52 Long term (current) use of systemic steroids; Z89.511 Acquired absence of right leg below knee; Z89.412 Acquired absence of left great toe; Z71.6 Tobacco abuse counseling
CPT/HCPCS: 36415; 70450; 70496; 70498; 70551; 80048; 80053; 80061; 83036; 84443; 85025; 85610; 85652; 85730; 86140; 93005; 93306; 94640; 99285

== ENCOUNTER 2022-08-30 19:00 | Inpatient (IN) | payer MEDICARE, OTHER ==
[2022-08-30] MEDS ORDERED: SODIUM CHLORIDE 0.9% 1,000 ML IV ONE (22:23)
--- NOTE | 2022-08-30 22:25 | ED ---
Abdominal Pain HPI - General Chief Complaint: Abdominal Pain Stated Complaint: possible bowel obstruction Time Seen by Provider: 08/30/22 22:10 Source: patient Mode of arrival: wheelchair Limitations: no limitations - History of Present Illness Initial Comments: This is a pleasant 67-year-old female who presents complaining of constipation which is going on for 3 weeks. Patient states she has not had a bowel movement in 3 weeks. Patient does suffer from chronic constipation due to medications. Patient denies any history of bowel obstruction. No vomiting. No fever. No chest pain or shortness of breath. Patient previously has had with cystectomy, appendectomy, and partial hysterectomy. No headache, no fever or chills, no changes in vision or hearing, no sore throat or difficulty with speech, no neck pain, no chest pain or shortness of breath, no abdominal pain, no nausea or vomiting, CONSTIPATION and some burning urination, no numbness or tingling, no extremity pain, no skin rashes or lesions. Past medical, surgical, social, and family history reviewed. - Related Data Home Medications Medication Instructions Recorded Confirmed Cetirizine HCl 10 mg PO BID 08/17/20 06/16/22 Gabapentin 800 mg PO TID 08/17/20 06/16/22 Insulin Glargine,Hum.rec.anlog 55 unit SQ BID 08/17/20 06/16/22 [Lantus Solostar Pen] Losartan [Cozaar] 50 mg PO DAILY@1600 08/17/20 06/16/22 Oxybutynin Chloride [Oxybutynin 10 mg PO DAILY 08/17/20 06/16/22 Chloride ER] Topiramate 50 mg PO BID 08/17/20 06/16/22 metFORMIN HCL [Glucophage] 1,000 mg PO BID 08/17/20 06/16/22 Cyclobenzaprine [Flexeril] 10 mg PO BID PRN 09/17/21 06/16/22 FLUoxetine HCL [PROzac] 40 mg PO DAILY@1600 09/17/21 06/16/22 Fluticasone Nasal [place] [Flonase 1 - 2 spr EA NOSTRIL HS 09/17/21 06/16/22 Nasal [place]] Albuterol Inhaler [Ventolin Hfa 2 puff INHALATION RT-QID PRN 12/14/21 06/16/22 Inhaler] HYDROcodone/APAP 10-325MG [[place] 1 tab PO Q6H PRN 12/14/21 06/16/22 10-325] Levothyroxine Sodium 88 mcg PO DAILY 12/14/21 06/16/22 QUEtiapine [SEROquel] 400 mg PO HS 12/14/21 06/16/22 Atorvastatin [Lipitor] 40 mg PO DAILY@1600 06/16/22 06/16/22 Cholecalciferol (Vitamin D3) 125 mcg PO DAILY@159906/16/22 06/16/22 [Vitamin D3 (125 MCG = 5,000 IU)] Famotidine 40 mg PO BID 06/16/22 06/16/22 Fluticasone Propion/Salmeterol 1 puff INHALATION RT-BID 06/16/22 06/16/22 [Advair 500-50 Diskus] Multivitamins, Thera [Multivitamin 1 tab PO DAILY@159906/16/22 06/16/22 (formulary)] Triamcinolone 0.1% Cream [Kenalog 1 applic TOPICAL BID PRN 06/16/22 06/16/22 0.1% Cream] Vitamin E (Dl,Tocopheryl Acet) 400 unit PO DAILY@159906/16/22 06/16/22 [Vitamin E (400 Iu = 180 mg)] Previous Rx's Medication Instructions Recorded Aspirin 325 mg PO DAILY #30 tab 06/18/22 Allergies Allergy/AdvReac Type Severity Reaction Status Date / Time No Known Allergies Allergy Verified 06/16/22 17:39 Review of Systems ROS Statement: Those systems with pertinent positive or pertinent negative responses have been documented in the HPI. ROS Other: All systems not noted in ROS Statement are negative. Past Medical History Past Medical History: COPD, Diabetes Mellitus, Hypertension History of Any Multi-Drug Resistant Organisms: None Reported Past Surgical History: Back Surgery, Orthopedic Surgery Additional Past Surgical History / Comment(s): rt below knee amp, Left 1st toe amputation Past Anesthesia/Blood Transfusion Reactions: No Reported Reaction Past Psychological History: Depression Smoking Status: Current every day smoker Past Alcohol Use History: None Reported Past Drug Use History: None Reported General Exam - General Exam Comments Initial Comments: Patient mildly hypertensive. Remainder of the vital signs are stable. Does not appear to be ill or toxic. Limitations: no limitations General appearance: obese Head exam: Present: atraumatic, normocephalic, normal inspection Eye exam: Present: normal appearance, PERRL, EOMI. Absent: scleral icterus, conjunctival injection, periorbital swelling ENT exam: Present: normal exam, mucous membranes moist Neck exam: Present: normal inspection, full ROM. Absent: tenderness, meningismus, lymphadenopathy Respiratory exam: Present: normal lung sounds bilaterally. Absent: respiratory distress, wheezes, rales, rhonchi, stridor Cardiovascular Exam: Present: regular rate, normal rhythm, normal heart sounds. Absent: systolic murmur, diastolic murmur, rubs, gallop, clicks GI/Abdominal exam: Present: distended (Generalized distention with tympany), normal bowel sounds. Absent: tenderness (No specific tenderness to palpation), guarding, rebound, rigid Extremities exam: Present: normal inspection, full ROM, normal capillary refill. Absent: tenderness, pedal edema, joint swelling, calf tenderness Back exam: Present: normal inspection Neurological exam: Present: alert, oriented X3, CN II-XII intact Psychiatric exam: Present: normal affect, normal mood Skin exam: Present: warm, dry, intact, normal color. Absent: rash Course Vital Signs 08/30/22 08/31/22 19:59 00:21 Temperature 97.9 F Pulse Rate 90 87 Respiratory 16 16 Rate Blood Pressure 163/77 152/72 O2 Sat by Pulse 98 98 Oximetry - Reevaluation(s) Reevaluation #1: 08/31/22 00:32 Patient reevaluated and is unchanged clinically. Reevaluation #2: 08/31/22 01:09 Medical record is reviewed Symptoms are improved here in the emergency department Patient is informed of results and questions answered Patient in no distress - Consultations Consultation #1: Case discussed in detail with the patient's PCP, Dr. Kennedy, who agrees to admit the patient for further treatment and evaluation Medical Decision Making - Medical Decision Making Differential diagnosis, constipation, obstipation, partial bowel obstruction, complete bowel obstruction, other intra-abdominal infectious versus inflammatory etiology. Patient will require admission due to sodium level of 124. Patient previously has had hyponatremia however this is the lowest value we have in all of her visits. White blood cell count 11,800, neutrophil count 9100. Awaiting computed tomography scan results. Chloride 95, CO2 19. Urinalysis unremarkable. Glucose 189 All findings discussed with the patient and . Treatment plan discussed. Did discuss risks versus benefits discharge versus admission. Given the patient's sodium. We will admit the patient for further care. Patient currently hemodynamically stable. Computed tomography scan independently read by me reveals no evidence of acute pathology. Did review the radiologist's interpretation. I did interpret the abdominal series. Patient did have nonspecific air-fluid levels. For this reason I did order the computed tomography scan. Chest x-ray was unremarkable The case was discussed in detail with ED attending physician. Presentation, findings, treatment plan discussed in detail. The resident Dr. Benítez - Lab Data Result diagrams: 08/30/22 23:26 08/30/22 23:26 Lab Results 08/30/22 08/30/22 08/30/22 Range/Units 23:26 23:26 23:26 WBC 11.8 H (3.8-10.6) k/uL RBC 3.92 (3.80-5.40) m/uL Hgb 12.1 (11.4-16.0) gm/dL Hct 33.4 L (34.0-46.0) % MCV 85.3 (80.0-100.0) fL MCH 31.0 (25.0-35.0) pg MCHC 36.3 (31.0-37.0) g/dL RDW 14.4 (11.5-15.5) % Plt Count 227 (150-450) k/uL MPV 6.5 Neutrophils % 76 % Lymphocytes % 16 % Monocytes % 4 % Eosinophils % 2 % Basophils % 1 % Neutrophils # 9.1 H (1.3-7.7) k/uL Lymphocytes # 1.9 (1.0-4.8) k/uL Monocytes # 0.5 (0-1.0) k/uL Eosinophils # 0.2 (0-0.7) k/uL Basophils # 0.1 (0-0.2) k/uL Sodium 124 L (137-145) mmol/L Potassium 4.1 (3.5-5.1) mmol/L Chloride 95 L (98-107) mmol/L Carbon Dioxide 19 L (22-30) mmol/L Anion Gap 10 mmol/L BUN 16 (7-17) mg/dL Creatinine 0.98 (0.52-1.04) mg/dL Est GFR (CKD-EPI)AfAm 69 (>60 ml/min/1.73 sqM) Est GFR (CKD-EPI)NonAf 60 (>60 ml/min/1.73 sqM) Glucose 189 H (74-99) mg/dL Calcium 8.6 (8.4-10.2) mg/dL Total Bilirubin 0.5 (0.2-1.3) mg/dL AST 21 (14-36) U/L ALT 22 (4-34) U/L Alkaline Phosphatase 88 (38-126) U/L Total Protein 6.6 (6.3-8.2) g/dL Albumin 3.9 (3.5-5.0) g/dL Urine Color Light Yellow Urine Appearance Clear (Clear) Urine pH 6.5 (5.0-8.0) Ur Specific [place] 1.007 (1.001-1.035) Urine Protein Trace H (Negative) Urine Glucose (UA) Negative (Negative) Urine Ketones Negative (Negative) Urine Blood Negative (Negative) Urine Nitrite Negative (Negative) Urine Bilirubin Negative (Negative) Urine Urobilinogen <2.0 (<2.0) mg/dL Ur Leukocyte Esterase Trace H (Negative) Urine RBC 2 (0-5) /hpf Urine WBC 2 (0-5) /hpf Ur Squamous Epith Cells <1 (0-4) /hpf Disposition Clinical Impression: Acute hyponatremia, Constipation Disposition: ADMITTED IP TO THIS HOSP Referrals: Yomi Kennedy MD [Primary Care Provider] - 1-2 days Time of Disposition: 00:32 Decision to Admit Reason: Admit from EC Decision Time: 00:32
--- NOTE | 2022-08-30 22:55 | XR ---
EXAMINATION TYPE: XR abdomen acute w cxr DATE OF EXAM: 08/30/2022 COMPARISON: NONE HISTORY: Abdominal distention TECHNIQUE: 5 views FINDINGS: There is coarse pulmonary interstitial density in both lung garcia. There is posterior fusion surgery in the lower lumbar spine. There is no sign of intestinal obstructi on or pneumoperitoneum. Lung bases are clear of consolidation. No pathologic calcifications over the kidneys. IMPRESSION: There is some pulmonary interstitial edema that could be acute pneumonia or acute heart f ailure and is a change compared to old exam. Nonacute abdomen.
[2022-08-30 23:32] LABS: Basophils # (A) 0.1 k/uL (0-0.2); Basophils % (A) 1 %; Eosinophils # (A) 0.2 k/uL (0-0.7); Eosinophils % (A) 2 %; HCT 33.4 % (34.0-46.0); HGB 12.1 gm/dL (11.4-16.0); Lymphocytes # (A) 1.9 k/uL (1.0-4.8); Lymphocytes % (A) 16 %; MCHC 36.3 g/dL (31.0-37.0); MCV 85.3 fL (80.0-100.0); Mean Platelet Volume 6.5; Monocytes # (A) 0.5 k/uL (0-1.0); Monocytes % (A) 4 %; Neutrophils # (A) 9.1 k/uL (1.3-7.7); Neutrophils % (A) 76 %; Platelet Count 227 k/uL (150-450); RBC 3.92 m/uL (3.80-5.40); RDW 14.4 % (11.5-15.5); WBC 11.8 k/uL (3.8-10.6)
[2022-08-30 23:45] LABS: Appearance,Urine Clear (Clear); Bilirubin,Urine Negative (Negative); Blood,Urine Negative (Negative); Color,Urine Light Yellow; Glucose,Urine (UA) Negative (Negative); Ketones,Urine Negative (Negative); Leukocyte Esterase,Urine Trace (Negative); Nitrite,Urine Negative (Negative); PH, Urine 6.5 (5.0-8.0); Protein,Urine Trace (Negative); RBC,Urine 2 /hpf (0-5); Specific Gravity,Urine 1.007 (1.001-1.035); Squamous Epithelial Cell,Urine <1 /hpf (0-4); Urobilinogen,Urine <2.0 mg/dL (<2.0); WBC,Urine 2 /hpf (0-5)
[2022-08-30 23:50] LABS: Albumin 3.9 g/dL (3.5-5.0); Calcium 8.6 mg/dL (8.4-10.2); Potassium 4.1 mmol/L (3.5-5.1); Total Bilirubin 0.5 mg/dL (0.2-1.3); Total Protein 6.6 g/dL (6.3-8.2)
--- NOTE | 2022-08-31 00:39 | CT ---
EXAMINATION TYPE: CT abdomen pelvis wo con DATE OF EXAM: 08/31/2022 COMPARISON: None HISTORY: ABDOMINAL DISTENTION CT DLP: 1283.8 mGycm Automated exposure control for dose reduction was used. Images obtained from the diaphragm to the floor the pelvis with no contrast. The lung bases are clear. No pleural effusion. Heart size is top normal. No pericardial effusion. The re is small hiatal hernia. Liver spleen stomach pancreas appear intact. The bile ducts are not dilate d. Gallbladder not seen. There is no adrenal mass. Kidneys have normal size and contour. No hydronephrosis. Ureters are not di lated. No retroperitoneal adenopathy. There is some apparent surgical clips in the right lateral abdo men. The bladder distends smoothly. No free fluid in the pelvis. No pelvic mass. There is hysterectom y. There is rods and screws fusing posteriorly the lumbar spine at L4-5. No lumbar compression fracture. Bony pelvis is intact. The hip joints are intact. There is mild subcutaneous edema over the anterior mid abdomen that could be injection sites. There is no mesenteric edema. No ascites or free air. No sign of a bowel obstruction. Appendix not se en. IMPRESSION: Previous apparent bowel surgery on the right side. Nonacute abdomen. No bowel obstruction. No renal s tone or obstruction.
[2022-08-31] MEDS ORDERED: NALOXONE 0.4 MG/ML 1 ML VIAL IV PRN (01:10)
[2022-08-31] MEDS ORDERED: ONDANSETRON 4 MG/2 ML VIAL IVP PRN (01:10)
[2022-08-31] MEDS ORDERED: ACETAMINOPHEN TAB 325 MG TAB PO PRN (01:10)
[2022-08-31] MEDS ORDERED: ALBUTEROL NEBULIZED 2.5 MG/3 ML INHALATION PRN (01:12)
[2022-08-31] MEDS ORDERED: DEXTROSE 50% SYRINGE 50 ML IVP PRN ×2 (01:13)
[2022-08-31] MEDS ORDERED: NA PHOS,M-B/NA PHOS,DI-BA 133 ML ENEMA RECTAL STA (01:16)
[2022-08-31] MEDS: SODIUM CHLORIDE 0.9% 1,000 ML IV SCH ×2 (02:13→21:38)
[2022-08-31 05:55] LABS: Glucose,Whole Blood 178 mg/dL (70-110)
[2022-08-31] MEDS: INSULIN ASPART (NovoLOG) 100 UNIT/ML VIAL SQ SCH ×4 (06:38→21:31)
[2022-08-31] MEDS ORDERED: CYCLOBENZAPRINE 10 MG TAB PO PRN (08:27)
[2022-08-31] MEDS ORDERED: MAGNESIUM HYDROXIDE 2,400 MG/10 ML CUP PO PRN (08:29)
[2022-08-31] MEDS ORDERED: bisacodyL 5 MG TABLET.DR PO PRN (08:33)
--- NOTE | 2022-08-31 08:46 | P.HPIM ---
History of Present Illness H&P Date: 08/31/22 Chief Complaint: Constipation This is a 67-year-old female admitted for constipation. She reports she has not had a bowel movement in over 2 weeks. Does admit some abdominal distention, and is not passing much gas at this time. She does have a history of opioid dependence, diabetes, and right below the knee amputation. Imaging has been negative. Sodium low on admission, patient does not report drinking more water than usual. Review of Systems Constitutional: Denies chills, Denies fever Cardiovascular: Denies chest pain, Denies dyspnea on exertion Respiratory: Denies congestion, Denies cough Gastrointestinal: Reports abdominal pain, Reports bloating, Reports constipation, Denies belching Musculoskeletal: Denies arm numbness/tingling, Denies leg numbness/tingling Neurological: Denies confusion, Denies numbness 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 Past Anesthesia/Blood Transfusion Reactions: No Reported Reaction Past Psychological History: Depression Smoking Status: Current every day smoker Past Alcohol Use History: None Reported Past Drug Use History: None Reported Additional Drug Use History / Comment(s): Patient states she smokes about 10 cig/day. Medications and Allergies Home Medications Medication Instructions Recorded Confirmed Type Cetirizine HCl 10 mg PO BID 08/17/20 08/31/22 History Gabapentin 800 mg PO TID 08/17/20 08/31/22 History Insulin Glargine,Hum.rec.anlog 55 unit SQ BID 08/17/20 08/31/22 History [Lantus Solostar Pen] Losartan [Cozaar] 50 mg PO DAILY@1600 08/17/20 08/31/22 History Oxybutynin Chloride [Oxybutynin 10 mg PO DAILY 08/17/20 08/31/22 History Chloride ER] Topiramate 50 mg PO BID 08/17/20 08/31/22 History metFORMIN HCL [Glucophage] 1,000 mg PO BID 08/17/20 08/31/22 History Cyclobenzaprine [Flexeril] 10 mg PO BID PRN 09/17/21 08/31/22 History FLUoxetine HCL [PROzac] 40 mg PO DAILY@1600 09/17/21 08/31/22 History Fluticasone Nasal [place] [Flonase 1 - 2 spr EA NOSTRIL HS 09/17/21 08/31/22 History Nasal [place]] Albuterol Inhaler [Ventolin Hfa 2 puff INHALATION RT-QID PRN 12/14/21 08/31/22 History Inhaler] HYDROcodone/APAP 10-325MG [[place] 1 tab PO Q6H PRN 12/14/21 08/31/22 History 10-325] Levothyroxine Sodium 88 mcg PO DAILY 12/14/21 08/31/22 History QUEtiapine [SEROquel] 400 mg PO HS 12/14/21 08/31/22 History Atorvastatin [Lipitor] 40 mg PO DAILY@1600 06/16/22 08/31/22 History Cholecalciferol (Vitamin D3) 125 mcg PO DAILY@1600 06/16/22 08/31/22 History [Vitamin D3 (125 MCG = 5,000 IU)] Famotidine 40 mg PO BID 06/16/22 08/31/22 History Fluticasone Propion/Salmeterol 1 puff INHALATION RT-BID 06/16/22 08/31/22 History [Advair 500-50 Diskus] Multivitamins, Thera [Multivitamin 1 tab PO DAILY@1600 06/16/22 08/31/22 History (formulary)] Triamcinolone 0.1% Cream [Kenalog 1 applic TOPICAL BID PRN 06/16/22 08/31/22 History 0.1% Cream] Vitamin E (Dl,Tocopheryl Acet) 400 unit PO DAILY@1600 06/16/22 08/31/22 History [Vitamin E (400 Iu = 180 mg)] Aspirin 325 mg PO DAILY #30 tab 06/18/22 08/31/22 Rx Allergies Allergy/AdvReac Type Severity Reaction Status Date / Time No Known Allergies Allergy Verified 06/16/22 17:39 Physical Exam Vitals: Vital Signs Temp Pulse Pulse Resp BP BP Pulse Ox 08/31/22 08:00 98.2 F 84 12 155/77 99 08/31/22 02:00 97.8 F 90 16 170/76 99 08/31/22 01:13 18 08/31/22 00:21 87 16 152/72 98 08/30/22 19:59 97.9 F 90 16 163/77 98 Intake and Output 08/30/22 08/31/22 08/31/22 22:59 06:59 14:59 Other: Voiding Method Toilet # Voids 2 # Bowel Movements 1 Weight 90.265 kg 90.265 kg - Constitutional General appearance: cooperative, no no acute distress - EENT Eyes: EOMI, PERRLA - Neck Neck: normal ROM, no rigidity - Respiratory Respiratory: bilateral: CTA - Cardiovascular Rhythm: regular Heart sounds: normal: S1, S2 - Gastrointestinal General gastrointestinal: decreased bowel sounds, distended, no tenderness - Integumentary Integumentary: normal, normal turgor - Musculoskeletal Right below the knee amputation - Psychiatric Psychiatric: A&O x's 3, appropriate affect, intact judgment & insight Results CBC & Chem 7: 08/30/22 23:26 08/30/22 23:26 Labs: Abnormal Lab Results - Last 24 Hours (Table) 08/30/22 08/30/22 08/30/22 Range/Units 23:26 23:26 23:26 WBC 11.8 H (3.8-10.6) k/uL Hct 33.4 L (34.0-46.0) % Neutrophils # 9.1 H (1.3-7.7) k/uL Sodium 124 L (137-145) mmol/L Chloride 95 L (98-107) mmol/L Carbon Dioxide 19 L (22-30) mmol/L Glucose 189 H (74-99) mg/dL POC Glucose (mg/dL) (70-110) mg/dL Osmolality (280-301) mosm/kg Urine Protein Trace H (Negative) Ur Leukocyte Esterase Trace H (Negative) 08/30/22 08/31/22 Range/Units 23:26 05:53 WBC (3.8-10.6) k/uL Hct (34.0-46.0) % Neutrophils # (1.3-7.7) k/uL Sodium (137-145) mmol/L Chloride (98-107) mmol/L Carbon Dioxide (22-30) mmol/L Glucose (74-99) mg/dL POC Glucose (mg/dL) 178 H (70-110) mg/dL Osmolality 264 L (280-301) mosm/kg Urine Protein (Negative) Ur Leukocyte Esterase (Negative) Thrombosis Risk Factor Assmnt - Choose All That Apply Any of the Below Risk Factors Present?: Yes Each Factor Represents 1 point: Abnormal pulmonary function (COPD), Obesity (BMI >25) Other Risk Factors: Yes Each Risk Factor Represents 2 Points: Age 61-74 years Other congenital or acquired thrombophilia - If yes, enter type in comment: No Thrombosis Risk Factor Assessment Total Risk Factor Score: 4 Thrombosis Risk Factor Assessment Level: Moderate Risk Assessment and Plan (1) Acute hyponatremia Current Visit: Yes Status: Acute Code(s): E87.1 - HYPO-OSMOLALITY AND HYPONATREMIA SNOMED Code(s): 7766405 (2) Constipation Current Visit: Yes Status: Acute Code(s): K59.00 - CONSTIPATION, UNSPECIFIED SNOMED Code(s): 26803498 (3) History of below-knee amputation of right lower extremity Current Visit: No Status: Acute Code(s): Z89.511 - ACQUIRED ABSENCE OF RIGHT LEG BELOW KNEE SNOMED Code(s): 385381110053836 (4) Type 2 diabetes mellitus Current Visit: Yes Status: Acute Code(s): E11.9 - TYPE 2 DIABETES MELLITUS WITHOUT COMPLICATIONS SNOMED Code(s): 20705109 (5) Opioid dependence Current Visit: Yes Status: Acute Code(s): F11.20 - OPIOID DEPENDENCE, UNCOMPLICATED SNOMED Code(s): 97586282 Plan: Milk of magnesia and Dulcolax ordered. Will check sodium urine. CMP tomorrow morning. Home medications reordered. Patient seen and evaluated by nurse practitioner, physician in agreement with plan
[2022-08-31] MEDS ORDERED: FAMOTIDINE 20 MG TAB PO SCH (09:00)
[2022-08-31] MEDS: INSULIN DETEMIR (LEVEMIR) 100 UNIT/ML SYR SQ SCH ×2 (09:08→21:38)
[2022-08-31] MEDS: GABAPENTIN 400 MG CAP PO SCH ×3 (09:09→21:37)
[2022-08-31] MEDS: TOPIRAMATE 25 MG TAB PO SCH ×2 (09:09→21:38)
[2022-08-31] MEDS: ASPIRIN 325 MG TAB PO SCH (09:09)
[2022-08-31] MEDS: LORATADINE 10 MG TAB PO SCH (09:09)
[2022-08-31] MEDS: HEPARIN SODIUM,PORCINE/PF 5,000 UNIT/0.5 ML SYRINGE SQ SCH ×2 (09:09→16:57)
[2022-08-31] MEDS: OXYBUTYNIN 10 MG TAB.ER.24 PO SCH (09:10)
[2022-08-31] MEDS: metFORMIN 500 MG TAB PO SCH ×2 (09:12→16:57)
[2022-08-31 12:00] LABS: Glucose,Whole Blood 158 mg/dL (70-110)
[2022-08-31] MEDS: NICOTINE 14MG/24HR PATCH TRANSDERM SCH (13:36)
[2022-08-31] MEDS: HYDROcodone/APAP 10-325MG 1 EACH TAB PO PRN ×2 (15:19→21:37)
[2022-08-31] MEDS: LOSARTAN 50 MG TAB PO SCH (15:19)
[2022-08-31] MEDS: CHOLECALCIFEROL 125 MCG (5000 IU) TABLET PO SCH (15:19)
[2022-08-31] MEDS: FLUoxetine HCL 20 MG CAP PO SCH (15:19)
[2022-08-31] MEDS: ATORVASTATIN 40 MG TAB PO SCH (15:19)
[2022-08-31] MEDS: MULTIVITAMINS, THERA 1 EACH TAB PO SCH (15:19)
[2022-08-31] MEDS: VITAMIN E (DL,TOCOPHERYL ACET) 400 UNIT (180 MG) CAP PO SCH (15:19)
[2022-08-31 16:30] LABS: Glucose,Whole Blood 112 mg/dL (70-110)
[2022-08-31 19:21] LABS: Glucose,Whole Blood 126 mg/dL (70-110)
[2022-08-31] MEDS: SYMBICORT 160-4.5 MCG INHALER INHALATION SCH (21:33)
[2022-08-31] MEDS: QUEtiapine 400 MG TAB PO SCH (21:38)
[2022-08-31] MEDS: FLUTICASONE 50MCG/SPRAY NASAL 16GM EA NOSTRIL SCH (21:38)
[2022-09-01] MEDS: HEPARIN SODIUM,PORCINE/PF 5,000 UNIT/0.5 ML SYRINGE SQ SCH ×3 (00:08→16:12)
[2022-09-01 06:03] LABS: Glucose,Whole Blood 75 mg/dL (70-110)
[2022-09-01] MEDS: INSULIN ASPART (NovoLOG) 100 UNIT/ML VIAL SQ SCH ×4 (06:05→20:28)
[2022-09-01] MEDS: HYDROcodone/APAP 10-325MG 1 EACH TAB PO PRN ×3 (06:12→20:50)
[2022-09-01] MEDS: metFORMIN 500 MG TAB PO SCH ×2 (06:12→16:13)
[2022-09-01] MEDS: SODIUM CHLORIDE 0.9% 1,000 ML IV SCH ×2 (06:13→23:44)
[2022-09-01] MEDS: LEVOTHYROXINE 88 MCG TAB PO SCH (06:13)
[2022-09-01] MEDS: INSULIN DETEMIR (LEVEMIR) 100 UNIT/ML SYR SQ SCH ×2 (08:39→20:57)
[2022-09-01] MEDS: ASPIRIN 325 MG TAB PO SCH (08:40)
[2022-09-01] MEDS: TOPIRAMATE 25 MG TAB PO SCH ×2 (08:41→20:51)
[2022-09-01] MEDS: FAMOTIDINE 20 MG TAB PO SCH (08:41)
[2022-09-01] MEDS: GABAPENTIN 400 MG CAP PO SCH ×3 (08:41→20:50)
[2022-09-01] MEDS: LORATADINE 10 MG TAB PO SCH (08:41)
[2022-09-01] MEDS: OXYBUTYNIN 10 MG TAB.ER.24 PO SCH (08:41)
[2022-09-01] MEDS: SYMBICORT 160-4.5 MCG INHALER INHALATION SCH ×2 (09:42→19:57)
[2022-09-01 09:46] LABS: Basophils # (A) 0.06 X 10*3/uL (0.00-0.10); Basophils % (A) 0.6 %; Eosinophils # (A) 0.17 X 10*3/uL (0.04-0.35); Eosinophils % (A) 1.7 %; HCT 32.2 % (37.2-46.3); HGB 10.8 g/dL (12.0-15.0); Immature Grans, Automated 0.6 %; Lymphocytes % (A) 22.1 %; MCH 29.5 pg (27.0-32.0); MCHC 33.5 g/dL (32.0-37.0); Mean Platelet Volume 8.1 fL (9.5-12.2); Monocytes # (A) 0.63 X 10*3/uL (0.20-1.00); Monocytes % (A) 6.3 %; NRBC Per 100 WBC 0 /100 WBCS (0.0-0.0); Neutrophils # (A) 6.82 X 10*3/uL (1.80-7.70); Neutrophils % (A) 68.7 %; Platelet Count 183 X 10*3/uL (140-440); RBC 3.66 X 10*6/uL (4.10-5.20); RDW 14.8 % (11.5-14.5); WBC 9.94 X 10*3/uL (4.50-10.00)
[2022-09-01 09:53] LABS: African American GFR (CKD) 54.2 (60.0-200.0); Albumin/Globulin Ratio 1.9 (1.60-3.17); Anion Gap 8.5 mmol/L (10.00-18.00); BUN/Creat Ratio 14.5 Ratio (12.00-20.00); Blood Urea Nitrogen 17.4 mg/dL (9.0-27.0); Calcium 8.4 mg/dL (8.7-10.3); Carbon Dioxide 21.5 mmol/L (20.0-27.5); Globulin 2.1 g/dL (1.6-3.3); Magnesium 1.7 mg/dL (1.5-2.4); Non-African American GFR(CKD) 46.7 (60.0-200.0); Phosphorus 3.3 mg/dL (2.4-5.1); Potassium 4.5 mmol/L (3.5-5.5); Total Bilirubin 0.2 mg/dL (0.30-1.20); Total Protein 6.1 g/dL (6.2-8.2)
[2022-09-01 11:44] LABS: Glucose,Whole Blood 86 mg/dL (70-110)
[2022-09-01] MEDS: NICOTINE 14MG/24HR PATCH TRANSDERM SCH (14:38)
[2022-09-01 15:57] LABS: Glucose,Whole Blood 130 mg/dL (70-110)
[2022-09-01] MEDS: CHOLECALCIFEROL 125 MCG (5000 IU) TABLET PO SCH (16:13)
[2022-09-01] MEDS: FLUoxetine HCL 20 MG CAP PO SCH (16:13)
[2022-09-01] MEDS: MULTIVITAMINS, THERA 1 EACH TAB PO SCH (16:13)
[2022-09-01] MEDS: VITAMIN E (DL,TOCOPHERYL ACET) 400 UNIT (180 MG) CAP PO SCH (16:13)
[2022-09-01] MEDS: ATORVASTATIN 40 MG TAB PO SCH (16:13)
[2022-09-01] MEDS: LOSARTAN 50 MG TAB PO SCH (16:13)
--- NOTE | 2022-09-01 19:52 | P.PN ---
Subjective Progress Note Date: 09/01/22 Principal diagnosis: Constipation and hyponatremia the patient is admitted for low sodium and constipation. Patient states no BM. We will ad Miralax. Less bloated. Na-129. Urine sodium WNL. No overt incontinence Objective - Vital Signs Vital signs: Vital Signs Temp 96.9 F L 09/01/22 19:22 Pulse 93 09/01/22 19:22 Resp 16 09/01/22 19:22 BP 173/79 09/01/22 19:22 Pulse Ox 99 09/01/22 19:22 FiO2 Intake & Output 09/01/22 09/01/22 09/02/22 06:59 18:59 06:59 Intake Total 450 Balance 450 Intake: Oral 450 Other: Voiding Method Toilet Bedside Commode # Voids 1 6 - Constitutional General appearance: Present: obese - EENT Eyes: Absent: abnormal pupil - Neck Neck: Absent: lymphadenopathy - Respiratory Respiratory: bilateral: CTA - Cardiovascular Rhythm: regular Heart sounds: normal: S1 Abnormal Heart Sounds: Absent: S3 Gallop, S4 Gallop - Gastrointestinal General gastrointestinal: Present: decreased bowel sounds - Integumentary Integumentary: Absent: cellulitis - Neurologic Neurologic: Present: CNII-XII intact - Psychiatric Psychiatric: Present: A&O x's 3, appropriate affect, intact judgment & insight - Labs CBC & Chem 7: 09/01/22 06:24 09/01/22 06:24 Labs: Abnormal Lab Results - Last 24 Hours (Table) 09/01/22 09/01/22 09/01/22 Range/Units 06:24 06:24 15:56 RBC 3.66 L (4.10-5.20) X 10*6/uL Hgb 10.8 L (12.0-15.0) g/dL Hct 32.2 L (37.2-46.3) % RDW 14.8 H (11.5-14.5) % MPV 8.1 L (9.5-12.2) fL Immature Gran # 0.06 H (0.00-0.04) X 10*3/uL Sodium 129 L (135-145) mmol/L Anion Gap 8.50 L (10.00-18.00) mmol/L Est GFR (CKD-EPI)AfAm 54.2 L (60.0-200.0) Est GFR (CKD-EPI)NonAf 46.7 L (60.0-200.0) Glucose 64 L (70-110) mg/dL POC Glucose (mg/dL) 130 H (70-110) mg/dL Calcium 8.4 L (8.7-10.3) mg/dL Total Bilirubin 0.20 L (0.30-1.20) mg/dL AST 12 L (13-35) U/L Total Protein 6.1 L (6.2-8.2) g/dL Assessment and Plan (1) Acute hyponatremia Current Visit: Yes Status: Acute Code(s): E87.1 - HYPO-OSMOLALITY AND HYPONATREMIA SNOMED Code(s): 2292106 (2) Constipation Current Visit: Yes Status: Acute Code(s): K59.00 - CONSTIPATION, UNSPECIFIED SNOMED Code(s): 98732178 (3) Opioid dependence Current Visit: Yes Status: Acute Code(s): F11.20 - OPIOID DEPENDENCE, UNCOMPLICATED SNOMED Code(s): 20617314 (4) Type 2 diabetes mellitus Current Visit: Yes Status: Acute Code(s): E11.9 - TYPE 2 DIABETES MELLITUS WITHOUT COMPLICATIONS SNOMED Code(s): 87252553 Plan: Continue .9 NS. Add Miralax. Check CMP in am Anticipate DC in the AM if sodium is better and patient Has BM Clinically improved Time with Patient: Less than 30
[2022-09-01 19:56] LABS: Glucose,Whole Blood 93 mg/dL (70-110)
[2022-09-01] MEDS: polyethylene glycoL 3350 17 GM POWD.PACK PO SCH (20:51)
[2022-09-01] MEDS: QUEtiapine 400 MG TAB PO SCH (20:51)
[2022-09-01] MEDS: FLUTICASONE 50MCG/SPRAY NASAL 16GM EA NOSTRIL SCH (20:52)
[2022-09-02] MEDS: HEPARIN SODIUM,PORCINE/PF 5,000 UNIT/0.5 ML SYRINGE SQ SCH ×4 (00:08→23:02)
[2022-09-02] MEDS: LEVOTHYROXINE 88 MCG TAB PO SCH (05:43)
[2022-09-02] MEDS: SODIUM CHLORIDE 0.9% 1,000 ML IV SCH (05:43)
[2022-09-02] MEDS: HYDROcodone/APAP 10-325MG 1 EACH TAB PO PRN ×4 (05:43→23:09)
[2022-09-02 05:53] LABS: Glucose,Whole Blood 92 mg/dL (70-110)
[2022-09-02] MEDS: INSULIN ASPART (NovoLOG) 100 UNIT/ML VIAL SQ SCH ×4 (05:59→21:53)
[2022-09-02] MEDS: SYMBICORT 160-4.5 MCG INHALER INHALATION SCH ×2 (08:12→20:19)
[2022-09-02] MEDS: OXYBUTYNIN 10 MG TAB.ER.24 PO SCH (08:54)
[2022-09-02] MEDS: NICOTINE 14MG/24HR PATCH TRANSDERM SCH (08:54)
[2022-09-02] MEDS: metFORMIN 500 MG TAB PO SCH ×2 (08:54→17:07)
[2022-09-02] MEDS: polyethylene glycoL 3350 17 GM POWD.PACK PO SCH (08:55)
[2022-09-02] MEDS: ASPIRIN 325 MG TAB PO SCH (08:55)
[2022-09-02] MEDS: TOPIRAMATE 25 MG TAB PO SCH ×2 (08:55→21:54)
[2022-09-02] MEDS: INSULIN DETEMIR (LEVEMIR) 100 UNIT/ML SYR SQ SCH ×2 (08:55→21:53)
[2022-09-02] MEDS: LORATADINE 10 MG TAB PO SCH (08:55)
[2022-09-02] MEDS: FAMOTIDINE 20 MG TAB PO SCH (08:55)
[2022-09-02] MEDS: GABAPENTIN 400 MG CAP PO SCH ×3 (08:55→21:51)
[2022-09-02 11:57] LABS: Glucose,Whole Blood 130 mg/dL (70-110)
[2022-09-02] MEDS ORDERED: DOCUSATE 100 MG CAP PO STA (12:28)
[2022-09-02] MEDS ORDERED: SENNOSIDES 8.6 MG TAB PO PRN (12:28)
[2022-09-02] MEDS ORDERED: SENNOSIDES 8.6 MG TAB PO STA (12:28)
--- NOTE | 2022-09-02 12:37 | P.PN ---
Subjective This is a pleasant 67 years old female who presents initially with constipation, she states she does not have bowel movement for several days and she has some mild abdominal distention, CT of the abdomen and pelvis on admission showing no signs of obstruction, patient awakened and lytes, thus not have specific complaints other than constipation, patient is asking when she can be discharged but she'll assist in the hospital now. She denies abdominal pain or tenderness, no vomiting. She tolerates diet 50-100%. Also patient is a smoker and co unseled to quit, she has some evidence of limited air entry on both lungs. She has left BKA and prosthesis at bedside, patient complains from mild exertional dyspnea but no coughing, no chest pain. Patient has evidence of decreased air entry in both lung garcia, she smokes half pack per day and she was counseled to quit and she agrees to the nicotine patch which was ordered. Vitas looks stable Labs showed sodium 129, repeat sodium from today is pending. Creatinine 1.2 She's on/75 mL/h Add Colace and senna Check KUB tomorrow morning At Solu-Medrol 40 mg with close monitoring of glucose Objective - Vital Signs Vital signs: Vital Signs Temp 97.9 F 09/02/22 08:24 Pulse 80 09/02/22 08:24 Resp 18 09/02/22 08:24 BP 151/76 09/02/22 08:24 Pulse Ox 97 09/02/22 08:24 FiO2 Intake & Output 09/01/22 09/02/22 09/02/22 18:59 06:59 18:59 Other: Voiding Method Bedside Commode Toilet # Voids 6 4 - Exam -GENERAL: The patient is alert and oriented x3, not in any acute distress. Well obese HEENT: Pupils are round and equally reacting to light. EOMI. No scleral icterus. No conjunctival pallor. Normocephalic, atraumatic. No pharyngeal erythema. No thyromegaly. CARDIOVASCULAR: S1 and S2 present. No murmurs, rubs, or gallops. PULMONARY: Chest is clear to auscultation, no wheezing or crackles. -ABDOMEN: Soft, nontender, mildly distended (could be due to obesity as well), normoactive bowel sounds. No palpable organomegaly. MUSCULOSKELETAL: No joint swelling or deformity. EXTREMITIES: No cyanosis, clubbing, or pedal edema. NEUROLOGICAL: Gross neurological examination did not reveal any focal deficits. SKIN: No rashes. no petechiae. - Labs CBC & Chem 7: 09/01/22 06:24 09/01/22 06:24 Labs: Abnormal Lab Results - Last 24 Hours (Table) 09/01/22 09/02/22 Range/Units 15:56 11:56 POC Glucose (mg/dL) 130 H 130 H (70-110) mg/dL Assessment and Plan Assessment: Constipation Acute on chronic hyponatremia, baseline 128-129 Acute COPD exacerbation Nicotine dependence Obesity with BMI of 36.4 Mild elevated creatinine suspicious for acute kidney injury Plan: Continue with Solu-Medrol At [facility] and monitor bowel movements Continue with gentle hydration Labs and medication were reviewed.. Continue same treatment. Continue with symptomatic treatment. Resume home medication. Monitor labs and vitals. DVT and GI prophylaxis. Further recommendations as per clinical course of the patient DVT prophylaxis: Subcutaneous heparin GI Prophylaxis: Pepcid Prognosis is guarded Dr. Kennedy will resume the care of the patient on Tuesday 09/04
[2022-09-02 12:39] LABS: African American GFR (CKD) 68.4 (60.0-200.0); Albumin/Globulin Ratio 1.84 (1.60-3.17); Anion Gap 9.2 mmol/L (10.00-18.00); BUN/Creat Ratio 12.84 Ratio (12.00-20.00); Blood Urea Nitrogen 12.7 mg/dL (9.0-27.0); Calcium 8.2 mg/dL (8.7-10.3); Carbon Dioxide 20.8 mmol/L (20.0-27.5); Globulin 2.2 g/dL (1.6-3.3); Total Bilirubin 0.3 mg/dL (0.30-1.20); Total Protein 6.2 g/dL (6.2-8.2)
[2022-09-02] MEDS: methylPREDNISolone SOD SUCCI 40 MG/ML 1 ML VIAL IV SCH ×2 (13:38→21:54)
[2022-09-02 16:48] LABS: Glucose,Whole Blood 156 mg/dL (70-110)
[2022-09-02] MEDS: MULTIVITAMINS, THERA 1 EACH TAB PO SCH (17:07)
[2022-09-02] MEDS: VITAMIN E (DL,TOCOPHERYL ACET) 400 UNIT (180 MG) CAP PO SCH (17:07)
[2022-09-02] MEDS: LOSARTAN 50 MG TAB PO SCH (17:07)
[2022-09-02] MEDS: FLUoxetine HCL 20 MG CAP PO SCH (17:07)
[2022-09-02] MEDS: ATORVASTATIN 40 MG TAB PO SCH (17:08)
[2022-09-02] MEDS: CHOLECALCIFEROL 125 MCG (5000 IU) TABLET PO SCH (17:08)
[2022-09-02 21:16] LABS: Glucose,Whole Blood 189 mg/dL (70-110)
[2022-09-02] MEDS: DOCUSATE 100 MG CAP PO SCH (21:53)
[2022-09-02] MEDS: FLUTICASONE 50MCG/SPRAY NASAL 16GM EA NOSTRIL SCH (21:53)
[2022-09-02] MEDS: QUEtiapine 400 MG TAB PO SCH (23:01)
[2022-09-03] MEDS ORDERED: LACTULOSE 20 GM/30 ML CUP PO PRN ×2 (00:03→13:28)
[2022-09-03] MEDS: metFORMIN 500 MG TAB PO SCH ×2 (06:13→18:22)
[2022-09-03] MEDS: HYDROcodone/APAP 10-325MG 1 EACH TAB PO PRN ×3 (06:13→21:36)
[2022-09-03] MEDS: LEVOTHYROXINE 88 MCG TAB PO SCH (06:14)
[2022-09-03 07:04] LABS: Glucose,Whole Blood 128 mg/dL (70-110)
[2022-09-03] MEDS: INSULIN ASPART (NovoLOG) 100 UNIT/ML VIAL SQ SCH ×4 (07:10→21:32)
--- NOTE | 2022-09-03 07:22 | XR ---
EXAMINATION TYPE: XR chest 1V DATE OF EXAM: 09/03/2022 6:44 AM COMPARISON: Chest radiographs from 01/06/2022 TECHNIQUE: XR chest 1V Portable AP radiograph of the chest. CLINICAL INDICATION:Female, 67 years old with history of sob; FINDINGS: Lungs/Pleura: There is no evidence of pleural effusion, focal consolidation, or pneumothorax. Pulmonary vascularity: Unremarkable. Heart/mediastinum: Cardiomediastinal silhouette is prominent in size. Musculoskeletal: No acute osseous pathology. IMPRESSION: No acute cardiopulmonary disease/process.
--- NOTE | 2022-09-03 07:44 | XR ---
EXAMINATION TYPE: XR KUB portable DATE OF EXAM: 09/03/2022 7:22 AM INDICATION: Patient age:Female; 67 years old; Reason for study: Constipation; COMPARISON: 08/30/2022. TECHNIQUE: One radiographic view of the abdomen was obtained. FINDINGS: Moderate stool burden throughout the colon. Few scattered nonspecific gas-filled bowel loop s. The bowel gas pattern is nonspecific without dilated loops of small or large bowel. There is no ev idence for organomegaly or pneumoperitoneum. The osseous structures are intact. No abnormal calcifi cations are present. Fecal material and gas are demonstrated throughout the colon and rectum. Fixati on hardware to the lower spine. IMPRESSION: 1. Nonspecific bowel gas pattern without radiographic evidence for acute process. 2. Moderate stool burden.
[2022-09-03] MEDS: SYMBICORT 160-4.5 MCG INHALER INHALATION SCH ×2 (08:17→19:17)
[2022-09-03 09:32] LABS: Appearance,Urine Cloudy (Clear); Bacteria,Urine Rare /hpf; Bilirubin,Urine Negative (Negative); Blood,Urine Negative (Negative); Color,Urine Yellow; Glucose,Urine (UA) Negative (Negative); Ketones,Urine Negative (Negative); Leukocyte Esterase,Urine Moderate (Negative); Mucus,Urine Rare /hpf; Nitrite,Urine Negative (Negative); Protein,Urine 2+ (Negative); RBC,Urine 1 /hpf (0-5); Squamous Epithelial Cell,Urine 1 /hpf (0-4); Urobilinogen,Urine <2.0 mg/dL (<2.0); WBC,Urine 28 /hpf (0-5)
--- NOTE | 2022-09-03 09:54 | P.NPCON ---
History of Present Illness - Reason for Consult hyponatremia - History of Present Illness Patient is a 67-year-old female with history of type 2 diabetes, hypertension, COPD. She is admitted to the hospital with complaints of abdominal discomfort and constipation. Patient was noted to have a serum sodium of 124. She received normal saline and it increased to 129 and subsequently dropped down to 127. At this time IV fluids were discontinued and patient is started on fluid restriction. Urine osmolality was at 218. Urine sodium at 65. Blood pressures have not been low. Which seem to have improved with saline. History of hyponatremia in November and September 2021 No significant abnormalities noted on CT of the abdomen. Review of Systems As per HPI, other systems negative 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 Past Anesthesia/Blood Transfusion Reactions: No Reported Reaction Past Psychological History: Depression Smoking Status: Current every day smoker Past Alcohol Use History: None Reported Past Drug Use History: None Reported Additional Drug Use History / Comment(s): Patient states she smokes about 10 cig/day. Medications and Allergies Home Medications Medication Instructions Recorded Confirmed Type Cetirizine HCl 10 mg PO BID 08/17/20 08/31/22 History Gabapentin 800 mg PO TID 08/17/20 08/31/22 History Insulin Glargine,Hum.rec.anlog 55 unit SQ BID 08/17/20 08/31/22 History [Lantus Solostar Pen] Losartan [Cozaar] 50 mg PO DAILY@1600 08/17/20 08/31/22 History Oxybutynin Chloride [Oxybutynin 10 mg PO DAILY 08/17/20 08/31/22 History Chloride ER] Topiramate 50 mg PO BID 08/17/20 08/31/22 History metFORMIN HCL [Glucophage] 1,000 mg PO BID 08/17/20 08/31/22 History Cyclobenzaprine [Flexeril] 10 mg PO BID PRN 09/17/21 08/31/22 History FLUoxetine HCL [PROzac] 40 mg PO DAILY@1600 09/17/21 08/31/22 History Fluticasone Nasal [place] [Flonase 1 - 2 spr EA NOSTRIL HS 09/17/21 08/31/22 History Nasal [place]] Albuterol Inhaler [Ventolin Hfa 2 puff INHALATION RT-QID PRN 12/14/21 08/31/22 History Inhaler] HYDROcodone/APAP 10-325MG [[place] 1 tab PO Q6H PRN 12/14/21 08/31/22 History 10-325] Levothyroxine Sodium 88 mcg PO DAILY 12/14/21 08/31/22 History QUEtiapine [SEROquel] 400 mg PO HS 12/14/21 08/31/22 History Atorvastatin [Lipitor] 40 mg PO DAILY@1600 06/16/22 08/31/22 History Cholecalciferol (Vitamin D3) 125 mcg PO DAILY@1600 06/16/22 08/31/22 History [Vitamin D3 (125 MCG = 5,000 IU)] Famotidine 40 mg PO BID 06/16/22 08/31/22 History Fluticasone Propion/Salmeterol 1 puff INHALATION RT-BID 06/16/22 08/31/22 Histor y [Advair 500-50 Diskus] Multivitamins, Thera [Multivitamin 1 tab PO DAILY@1600 06/16/22 08/31/22 History (formulary)] Triamcinolone 0.1% Cream [Kenalog 1 applic TOPICAL BID PRN 06/16/22 08/31/22 History 0.1% Cream] Vitamin E (Dl,Tocopheryl Acet) 400 unit PO DAILY@1600 06/16/22 08/31/22 History [Vitamin E (400 Iu = 180 mg)] Aspirin 325 mg PO DAILY #30 tab 06/18/22 08/31/22 Rx Allergies Allergy/AdvReac Type Severity Reaction Status Date / Time No Known Allergies Allergy Verified 08/31/22 11:18 Physical Exam Vitals: Vital Signs Temp Pulse Resp BP Pulse Ox 09/03/22 08:38 97.8 F 86 18 133/70 97 09/03/22 01:52 98.4 F 97 16 118/66 92 L 09/02/22 19:15 100.0 F H 109 H 17 162/78 97 09/02/22 15:23 99.0 F 94 18 164/75 96 Intake and Output 09/02/22 09/03/22 09/03/22 22:59 06:59 14:59 Other: Voiding Method Toilet Toilet # Voids 3 4 Awake, comfortable, no acute distress Examination of the heart S1 and S2 Examination of the lungs bilateral breath sounds are heard Abdomen is soft nontender Examination lower extremity shows no evidence of edema in the left leg. Patient has right BKA [employer] exam grossly intact Results - Lab Results Most recent lab results Calcium 8.2 mg/dL (8.7-10.3) L 09/02/22 07:46 Phosphorus 3.3 mg/dL (2.4-5.1) 09/01/22 06:24 Magnesium 1.7 mg/dL (1.5-2.4) 09/01/22 06:24 09/01/22 06:24 09/02/22 07:46 Assessment and Plan Assessment: 1. Hyponatremia, initially hypovolemic and improved saline. Serum sodium dropped once the volume was replaced. Currently maintained on fluid restriction appropriately and off of normal saline. 2. Constipation 3. Acute COPD exacerbation 4. Mild acute kidney injury serum creatinine improved. Rule out urine r etention with underlying severe constipation. Plan: Continue off of saline Check bladder scan Follow-up for repeat sodium level Sodium chloride tab 1 Increase oral protein intake. Continue with fluid restriction. Thank you for the consultation. We will continue to follow the patient with you during her hospitalization
[2022-09-03] MEDS ORDERED: SODIUM CHLORIDE TAB 1 GM TAB PO STA (10:08)
[2022-09-03] MEDS ORDERED: NA PHOS,M-B/NA PHOS,DI-BA 133 ML ENEMA RECTAL ONE (10:30)
[2022-09-03] MEDS: NICOTINE 14MG/24HR PATCH TRANSDERM SCH (10:33)
[2022-09-03] MEDS: HEPARIN SODIUM,PORCINE/PF 5,000 UNIT/0.5 ML SYRINGE SQ SCH ×2 (10:33→18:09)
[2022-09-03] MEDS: INSULIN DETEMIR (LEVEMIR) 100 UNIT/ML SYR SQ SCH ×2 (10:33→21:32)
[2022-09-03] MEDS: DOCUSATE 100 MG CAP PO SCH (10:33)
[2022-09-03] MEDS: TOPIRAMATE 25 MG TAB PO SCH ×2 (10:34→21:33)
[2022-09-03] MEDS: OXYBUTYNIN 10 MG TAB.ER.24 PO SCH (10:34)
[2022-09-03] MEDS: LORATADINE 10 MG TAB PO SCH (10:34)
[2022-09-03] MEDS: FAMOTIDINE 20 MG TAB PO SCH (10:34)
[2022-09-03] MEDS: ASPIRIN 325 MG TAB PO SCH (10:34)
[2022-09-03] MEDS: GABAPENTIN 400 MG CAP PO SCH ×3 (10:34→21:32)
[2022-09-03] MEDS: polyethylene glycoL 3350 17 GM POWD.PACK PO SCH (10:35)
[2022-09-03] MEDS: methylPREDNISolone SOD SUCCI 40 MG/ML 1 ML VIAL IV SCH (11:04)
[2022-09-03 11:44] LABS: Glucose,Whole Blood 94 mg/dL (70-110)
[2022-09-03 13:29] LABS: Basophils # (A) 0.03 X 10*3/uL (0.00-0.10); Basophils % (A) 0.3 %; Eosinophils # (A) 0.01 X 10*3/uL (0.04-0.35); Eosinophils % (A) 0.1 %; HCT 31.8 % (37.2-46.3); Immature Grans, Automated 1.2 %; Lymphocytes # (A) 0.94 X 10*3/uL (0.90-5.00); Lymphocytes % (A) 8.4 %; MCH 30.1 pg (27.0-32.0); MCHC 34.6 g/dL (32.0-37.0); MCV 86.9 fL (80.0-97.0); Mean Platelet Volume 8.6 fL (9.5-12.2); Monocytes # (A) 0.45 X 10*3/uL (0.20-1.00); NRBC Per 100 WBC 0 /100 WBCS (0.0-0.0); Neutrophils # (A) 9.68 X 10*3/uL (1.80-7.70); Platelet Count 213 X 10*3/uL (140-440); RBC 3.66 X 10*6/uL (4.10-5.20); RDW 14.7 % (11.5-14.5); WBC 11.24 X 10*3/uL (4.50-10.00)
--- NOTE | 2022-09-03 13:33 | P.PN ---
Subjective This is a pleasant 67 years old female who presents initially with constipation, she states she does not have bowel movement for several days and she has some mild abdominal distention, CT of the abdomen and pelvis on admission showing no signs of obstruction, patient awakened and lytes, thus not have specific complaints other than constipation, patient is asking when she can be discharged but she'll assist in the hospital now. She denies abdominal pain or tenderness, no vomiting. She tolerates diet 50-100%. Also patient is a smoker and co unseled to quit, she has some evidence of limited air entry on both lungs. She has left BKA and prosthesis at bedside, patient complains from mild exertional dyspnea but no coughing, no chest pain. Patient has evidence of decreased air entry in both lung garcia, she smokes half pack per day and she was counseled to quit and she agrees to the nicotine patch which was ordered. Vitas looks stable Labs showed sodium 129, repeat sodium from today is pending. Creatinine 1.2 She's on/75 mL/h Add Colace and senna Check KUB tomorrow morning At Solu-Medrol 40 mg with close monitoring of glucose 09/03/2022 Patient is here for constipation and hyponatremia, her sodium is improved 2 days ago up to 129, went down to 127 yesterday. Labs from today include a sodium are pending Check sodium level tomorrow as well, nephrology input is appreciated. Continue off IV fluid, continue with fluid restriction, patient is status post one-time dose of sodium bicarb. Also we put the patient on 1200 mL per day fluid restriction, patient informed She still has constipation, she is on senna Colace and lactulose when necessary, we tried an enema today with little bowel movement, also increase her lactulose to 30 g twice a day when necessary. Yesterday she had some low-grade fever about 100, blood culture is requested and is pending. Chest x-ray negative, no diarrhea rash or other signs of infection, urine analysis is suspicious for infection therefore going to treatment orally with Keflex for 3 days, patient cannot take a fluoroquinolones because of the drug drug interaction. KUB showing moderate stool burden, no acute process, just x-ray is negative for acute process Patient herself sitting at bedside looks comfortable, still complain from some abdominal constipation but no abdominal pain or tenderness, no vomiting and she tolerates diet. She denies rash no dizziness, no headache or weakness or numbness. She has good air entry, she does not need steroids Objective - Vital Signs Vital signs: Vital Signs Temp 97.8 F 09/03/22 08:38 Pulse 86 09/03/22 08:38 Resp 18 09/03/22 08:38 BP 133/70 09/03/22 08:38 Pulse Ox 97 09/03/22 08:38 FiO2 Intake & Output 09/02/22 09/03/22 09/03/22 18:59 06:59 18:59 Other: Voiding Method Toilet Toilet Toilet # Voids 3 4 - Exam -GENERAL: The patient is alert and oriented x3, not in any acute distress. Well obese HEENT: Pupils are round and equally reacting to light. EOMI. No scleral icterus. No conjunctival pallor. Normocephalic, atraumatic. No pharyngeal erythema. No thyromegaly. CARDIOVASCULAR: S1 and S2 present. No murmurs, rubs, or gallops. PULMONARY: Chest is clear to auscultation, no wheezing or crackles. -ABDOMEN: Soft, nontender, mildly distended (could be due to obesity as well), normoactive bowel sounds. No palpable organomegaly. MUSCULOSKELETAL: No joint swelling or deformity. EXTREMITIES: No cyanosis, clubbing, or pedal edema. NEUROLOGICAL: Gross neurological examination did not reveal any focal deficits. SKIN: No rashes. no petechiae. - Labs CBC & Chem 7: 09/01/22 06:24 09/02/22 07:46 Labs: Abnormal Lab Results - Last 24 Hours (Table) 09/02/22 09/02/22 09/03/22 Range/Units 16:47 21:15 07:02 POC Glucose (mg/dL) 156 H 189 H 128 H (70-110) mg/dL Urine Appearance (Clear) Urine Protein (Negative) Ur Leukocyte Esterase (Negative) Urine WBC (0-5) /hpf Urine Bacteria (None) /hpf Urine Mucus (None) /hpf 09/03/22 Range/Units 09:21 POC Glucose (mg/dL) (70-110) mg/dL Urine Appearance Cloudy H (Clear) Urine Protein 2+ H (Negative) Ur Leukocyte Esterase Moderate H (Negative) Urine WBC 28 H (0-5) /hpf Urine Bacteria Rare H (None) /hpf Urine Mucus Rare H (None) /hpf Assessment and Plan Assessment: Constipation, with no evidence of bowel obstruction Acute on chronic hyponatremia, baseline 128-129 Acute COPD exacerbation, mild and improved. No need for systemic steroids now Nicotine dependence Obesity with BMI of 36.4 Mild elevated creatinine suspicious for acute kidney injury Plan: Continue with Colace and senna, lactulose when necessary, enema 1 Continue monitoring sodium with fluid restriction, nephrology input is appreciated Continue with Keflex 3 days, monitor for fever. Follow-up results of the blood culture Labs and medication were reviewed.. Continue same treatment. Continue with symptomatic treatment. Resume home medication. Monitor labs and vitals. DVT and GI prophylaxis. Further recommendations as per clinical course of the patient DVT prophylaxis: Subcutaneous heparin GI Prophylaxis: Pepcid Prognosis is guarded
[2022-09-03 13:55] LABS: African American GFR (CKD) 62.2 (60.0-200.0); Anion Gap 10.2 mmol/L (10.00-18.00); BUN/Creat Ratio 13.74 Ratio (12.00-20.00); Blood Urea Nitrogen 14.7 mg/dL (9.0-27.0); Carbon Dioxide 21.5 mmol/L (20.0-27.5); Non-African American GFR(CKD) 53.7 (60.0-200.0); Potassium 5.1 mmol/L (3.5-5.5)
[2022-09-03] MEDS ORDERED: SENNOSIDES 8.6 MG TAB PO PRN (14:15)
[2022-09-03] MEDS ORDERED: DOCUSATE 100 MG CAP PO PRN (14:15)
[2022-09-03 16:41] LABS: Glucose,Whole Blood 129 mg/dL (70-110)
[2022-09-03] MEDS: MULTIVITAMINS, THERA 1 EACH TAB PO SCH (18:09)
[2022-09-03] MEDS: ATORVASTATIN 40 MG TAB PO SCH (18:09)
[2022-09-03] MEDS: CEPHALEXIN 500 MG CAP PO SCH ×2 (18:09→21:32)
[2022-09-03] MEDS: FLUoxetine HCL 20 MG CAP PO SCH (18:09)
[2022-09-03] MEDS: CHOLECALCIFEROL 125 MCG (5000 IU) TABLET PO SCH (18:09)
[2022-09-03] MEDS: LOSARTAN 50 MG TAB PO SCH (18:10)
[2022-09-03] MEDS: VITAMIN E (DL,TOCOPHERYL ACET) 400 UNIT (180 MG) CAP PO SCH (18:21)
[2022-09-03 20:45] LABS: Glucose,Whole Blood 181 mg/dL (70-110)
[2022-09-03] MEDS ORDERED: SENNOSIDES 8.6 MG TAB PO SCH (21:00)
[2022-09-03] MEDS: FLUTICASONE 50MCG/SPRAY NASAL 16GM EA NOSTRIL SCH (21:33)
[2022-09-03] MEDS: QUEtiapine 400 MG TAB PO SCH (21:33)
[2022-09-04] MEDS: HEPARIN SODIUM,PORCINE/PF 5,000 UNIT/0.5 ML SYRINGE SQ SCH ×2 (00:12→09:56)
[2022-09-04 02:31] VITALS: RESP 17
[2022-09-04 05:57] LABS: Glucose,Whole Blood 59 mg/dL (70-110)
[2022-09-04 06:53] LABS: Glucose,Whole Blood 72 mg/dL (70-110)
[2022-09-04] MEDS: INSULIN ASPART (NovoLOG) 100 UNIT/ML VIAL SQ SCH ×2 (06:55→11:58)
[2022-09-04] MEDS: LEVOTHYROXINE 88 MCG TAB PO SCH (06:57)
[2022-09-04] MEDS: HYDROcodone/APAP 10-325MG 1 EACH TAB PO PRN (07:00)
[2022-09-04 08:00] LABS: Glucose,Whole Blood 91 mg/dL (70-110)
[2022-09-04 08:04] VITALS: BP 103/64; PULSE 92; TEMP 97.6
--- NOTE | 2022-09-04 08:16 | P.DS ---
Providers Date of admission: 08/31/22 01:09 Attending physician: Yomi Kennedy Consults: 09/02/22 18:34 Consult Physician Routine Consulting Provider: Morenita Espinoza Consult Reason/Comments: hyponatremia Do you want consulting provider notified?: Yes, Notify in am Primary care physician: Yomi Kennedy - Discharge Diagnosis(es) (1) Acute hyponatremia Current Visit: Yes Status: Acute (2) Constipation Current Visit: Yes Status: Acute (3) History of below-knee amputation of right lower extremity Current Visit: No Status: Acute (4) Type 2 diabetes mellitus Current Visit: Yes Status: Acute (5) Opioid dependence Current Visit: Yes Status: Acute Hospital Course: This a 67-year-old female who was admitted for constipation and hyponatremia. She's been maintained on a 1200 mL fluid restriction and sodium has stabilized, was 130 yesterday. She did have a bowel movement yesterday and is feeling some relief. Will send home with lactulose to use and instructed to watch fluid intake. Also continue Keflex for 5 more days. May discharge if cleared by nephrology. Patient seen and evaluated by nurse practitioner, physician in agreement with plan Patient Condition at Discharge: Fair Plan - Discharge Summary Discharge Rx Participant: Yes New Discharge Prescriptions: New Lactulose [Cephulac] 30 gm PO BID PRN 7 Days #14 ml PRN Reason: Constipation Cephalexin [Keflex] 500 mg PO TID 5 Days #15 cap Continue Gabapentin 800 mg PO TID Insulin Glargine,Hum.rec.anlog [Lantus Solostar Pen] 55 unit SQ BID Cetirizine HCl 10 mg PO BID metFORMIN HCL [Glucophage] 1,000 mg PO BID Topiramate 50 mg PO BID Oxybutynin Chloride [Oxybutynin Chloride ER] 10 mg PO DAILY Losartan [Cozaar] 50 mg PO DAILY@1600 Cyclobenzaprine [Flexeril] 10 mg PO BID PRN PRN Reason: Muscle Spasm FLUoxetine HCL [PROzac] 40 mg PO DAILY@1600 Fluticasone Nasal [place] [Flonase Nasal [place]] 1 - 2 spr EA NOSTRIL HS Albuterol Inhaler [Ventolin Hfa Inhaler] 2 puff INHALATION RT-QID PRN PRN Reason: Shortness Of Breath Cholecalciferol (Vitamin D3) [Vitamin D3 (125 MCG = 5,000 IU)] 125 mcg PO DAILY@1600 Famotidine 40 mg PO BID Fluticasone Propion/Salmeterol [Advair 500-50 Diskus] 1 puff INHALATION RT- BID Multivitamins, Thera [Multivitamin (formulary)] 1 tab PO DAILY@1600 HYDROcodone/APAP 10-325MG [[place] 10-325] 1 tab PO Q6H PRN PRN Reason: Pain Levothyroxine Sodium 88 mcg PO DAILY QUEtiapine [SEROquel] 400 mg PO HS Atorvastatin [Lipitor] 40 mg PO DAILY@1600 Triamcinolone 0.1% Cream [Kenalog 0.1% Cream] 1 applic TOPICAL BID PRN PRN Reason: Rash Vitamin E (Dl,Tocopheryl Acet) [Vitamin E (400 Iu = 180 mg)] 400 unit PO DAILY@1600 Aspirin 325 mg PO DAILY #30 tab Discharge Medication List Cetirizine HCl 10 mg PO BID 08/17/20 [History] Gabapentin 800 mg PO TID 08/17/20 [History] Insulin Glargine,Hum.rec.anlog [Lantus Solostar Pen] 55 unit SQ BID 08/17/20 [History] Losartan [Cozaar] 50 mg PO DAILY@1600 08/17/20 [History] Oxybutynin Chloride [Oxybutynin Chloride ER] 10 mg PO DAILY 08/17/20 [History] Topiramate 50 mg PO BID 08/17/20 [History] metFORMIN HCL [Glucophage] 1,000 mg PO BID 08/17/20 [History] Cyclobenzaprine [Flexeril] 10 mg PO BID PRN 09/17/21 [History] FLUoxetine HCL [PROzac] 40 mg PO DAILY@1600 09/17/21 [History] Fluticasone Nasal [place] [Flonase Nasal [place]] 1 - 2 spr EA NOSTRIL HS 09/17/21 [History] Albuterol Inhaler [Ventolin Hfa Inhaler] 2 puff INHALATION RT-QID PRN 12/14/21 [History] HYDROcodone/APAP 10-325MG [[place] 10-325] 1 tab PO Q6H PRN 12/14/21 [History] Levothyroxine Sodium 88 mcg PO DAILY 12/14/21 [History] QUEtiapine [SEROquel] 400 mg PO HS 12/14/21 [History] Atorvastatin [Lipitor] 40 mg PO DAILY@159906/16/22 [History] Cholecalciferol (Vitamin D3) [Vitamin D3 (125 MCG = 5,000 IU)] 125 mcg PO DAILY@159906/16/22 [History] Famotidine 40 mg PO BID 06/16/22 [History] Fluticasone Propion/Salmeterol [Advair 500-50 Diskus] 1 puff INHALATION RT-BID 06/16/22 [History] Multivitamins, Thera [Multivitamin (formulary)] 1 tab PO DAILY@159906/16/22 [History] Triamcinolone 0.1% Cream [Kenalog 0.1% Cream] 1 applic TOPICAL BID PRN 06/16/22 [History] Vitamin E (Dl,Tocopheryl Acet) [Vitamin E (400 Iu = 180 mg)] 400 unit PO DAILY@159906/16/22 [History] Aspirin 325 mg PO DAILY #30 tab 06/18/22 [Rx] Cephalexin [Keflex] 500 mg PO TID 5 Days #15 cap 09/04/22 [Rx] Lactulose [Cephulac] 30 gm PO BID PRN 7 Days #14 ml 09/04/22 [Rx] Follow up Appointment(s)/Referral(s): Yomi Kennedy MD [Primary Care Provider] - 1-2 days Activity/Diet/Wound Care/Special Instructions: 1200 mL fluid restriction Discharge Disposition: HOME SELF-CARE
[2022-09-04] MEDS: SYMBICORT 160-4.5 MCG INHALER INHALATION SCH (08:36)
[2022-09-04] MEDS: INSULIN DETEMIR (LEVEMIR) 100 UNIT/ML SYR SQ SCH (09:56)
[2022-09-04] MEDS: polyethylene glycoL 3350 17 GM POWD.PACK PO SCH (09:56)
[2022-09-04] MEDS: OXYBUTYNIN 10 MG TAB.ER.24 PO SCH (09:56)
[2022-09-04] MEDS: LORATADINE 10 MG TAB PO SCH (09:56)
[2022-09-04] MEDS: GABAPENTIN 400 MG CAP PO SCH (09:56)
[2022-09-04] MEDS: FAMOTIDINE 20 MG TAB PO SCH (09:56)
[2022-09-04] MEDS: NICOTINE 14MG/24HR PATCH TRANSDERM SCH (09:56)
[2022-09-04] MEDS: TOPIRAMATE 25 MG TAB PO SCH (09:56)
[2022-09-04] MEDS: ASPIRIN 325 MG TAB PO SCH (09:56)
[2022-09-04] MEDS: CEPHALEXIN 500 MG CAP PO SCH (09:56)
[2022-09-04] MEDS: metFORMIN 500 MG TAB PO SCH (10:24)
[2022-09-04 11:36] LABS: Glucose,Whole Blood 94 mg/dL (70-110)
[2022-09-04] MEDS ORDERED: TOLVAPTAN 15 MG 1/2 TABLET PO ONE (12:16)
--- NOTE | 2022-09-04 12:16 | P.PN ---
Subjective Patient is seen for follow-up for hyponatremia. Serum sodium had improved with fluid restriction and was 130 yesterday. Labs are pending from today Patient denies any significant complaints. She has had good oral intake. Objective - Vital Signs Vital signs: Vital Signs Temp 97.6 F 09/04/22 08:00 Pulse 92 09/04/22 08:00 Resp 17 09/04/22 02:00 BP 103/64 09/04/22 08:00 Pulse Ox 97 09/04/22 08:00 FiO2 Intake & Output 09/03/22 09/04/22 09/04/22 18:59 06:59 18:59 Other: Voiding Method Toilet Toilet # Voids 4 5 # Bowel Movements 3 - Exam Patient is awake, comfortable, no acute distress Alert oriented 3 No evidence of edema left leg Right BKA Euvolemic - Labs CBC & Chem 7: 09/03/22 08:00 09/04/22 10:37 Labs: Abnormal Lab Results - Last 24 Hours (Table) 09/03/22 09/03/22 09/03/22 Range/Units 08:00 08:00 16:39 WBC 11.24 H (4.50-10.00) X 10*3/uL RBC 3.66 L (4.10-5.20) X 10*6/uL Hgb 11.0 L (12.0-15.0) g/dL Hct 31.8 L (37.2-46.3) % RDW 14.7 H (11.5-14.5) % MPV 8.6 L (9.5-12.2) fL Immature Gran # 0.13 H (0.00-0.04) X 10*3/uL Neutrophils # 9.68 H (1.80-7.70) X 10*3/uL Eosinophils # 0.01 L (0.04-0.35) X 10*3/uL Sodium 130 L (135-145) mmol/L Est GFR (CKD-EPI)NonAf 53.7 L (60.0-200.0) POC Glucose (mg/dL) 129 H (70-110) mg/dL 09/03/22 09/04/22 09/04/22 Range/Units 20:44 05:55 10:37 WBC (4.50-10.00) X 10*3/uL RBC (4.10-5.20) X 10*6/uL Hgb (12.0-15.0) g/dL Hct (37.2-46.3) % RDW (11.5-14.5) % MPV (9.5-12.2) fL Immature Gran # (0.00-0.04) X 10*3/uL Neutrophils # (1.80-7.70) X 10*3/uL Eosinophils # (0.04-0.35) X 10*3/uL Sodium 128 L (135-145) mmol/L Est GFR (CKD-EPI)NonAf (60.0-200.0) POC Glucose (mg/dL) 181 H 59 L (70-110) mg/dL Microbiology - Last 24 Hours (Table) 09/03/22 00:26 Blood Culture - Preliminary Blood No Growth after 24 hours 09/03/22 09:21 Urine Culture - Preliminary Urine,Clean Catch Assessment and Plan Assessment: 1. Hyponatremia, initially hypovolemic and improved saline. Serum sodium dropped once the volume was replaced. Currently maintained on fluid restriction appropriately and off of normal saline. Serum sodium had increased to 130 yesterday but dropped back down to 128 today. [place] by mouth 1 today 2. Constipation 3. Acute COPD exacerbation 4. Mild acute kidney injury serum creatinine improved. Rule out urine retention with underlying severe constipation. Plan: Continue with fluid restriction [place] x1 today Check TSH Patient can be discharged but will need labs to be done in 1-2 days post discharge and follow-up at our office in about 1-2 weeks.
== END 2022-09-04 13:55 | disposition home or self-care (01) | DRG 392 ==
LOC: EC 19:00 → 4SSUR 08-31 01:09
PROVIDERS: ADMIT Family Medicine; ATTEND Family Medicine
DX: K59.03 Drug induced constipation (principal); E87.1 Hypo-osmolality and hyponatremia; F11.20 Opioid dependence, uncomplicated; J44.1 Chronic obstructive pulmonary disease with (acute) exacerbation; N17.9 Acute kidney failure, unspecified; T50.915A Adverse effect of multiple unspecified drugs, medicaments and biological substances, initial encounter; E11.9 Type 2 diabetes mellitus without complications; Z20.822 Contact with and (suspected) exposure to COVID-19; Z71.6 Tobacco abuse counseling; Z89.511 Acquired absence of right leg below knee; E86.1 Hypovolemia; E66.9 Obesity, unspecified; I10 Essential (primary) hypertension; F32.A Depression, unspecified; F17.210 Nicotine dependence, cigarettes, uncomplicated; Z68.36 Body mass index [BMI] 36.0-36.9, adult; Z79.84 Long term (current) use of oral hypoglycemic drugs; Z79.899 Other long term (current) drug therapy; Z79.890 Hormone replacement therapy; Z79.82 Long term (current) use of aspirin; Z89.512 Acquired absence of left leg below knee; Z79.4 Long term (current) use of insulin; X58.XXXA Exposure to other specified factors, initial encounter
CPT/HCPCS: 36415; 71045; 74018; 74022; 74176; 80048; 80053; 81001; 83036; 83735; 83930; 83935; 84100; 84145; 84295; 84300; 84443; 85025; 87040; 87077; 87086; 87186; 87502; 87634; 87635; 94640; 96360; 99285

== ENCOUNTER 2022-11-18 17:30 | Inpatient (IN) | payer MEDICARE, OTHER ==
[2022-11-18] MEDS ORDERED: methylPREDNISolone SOD SUCCI 125 MG/2 ML VIAL IV STA (17:56)
[2022-11-18] MEDS ORDERED: IPRATROPIUM-ALBUTEROL 3 ML NEB INHALATION STA (17:56)
[2022-11-18] MEDS ORDERED: SODIUM CHLORIDE 0.9% 1,000 ML IV STA ×3 (17:56→19:20)
[2022-11-18] MEDS ORDERED: ALBUTEROL HFA INHALER INHALATION STA (17:56)
--- NOTE | 2022-11-18 18:54 | XR ---
EXAMINATION TYPE: XR chest 2V DATE OF EXAM: 11/18/2022 COMPARISON: 11/15/2022 HISTORY: Short of breath TECHNIQUE: 2 views FINDINGS: Heart is slightly enlarged. There is old left humeral neck healed fracture. No obvious hea rt failure. There is some mild interstitial infiltrate in the left lung. IMPRESSION: There is some mild left side pulmonary infiltrate that could be acute pneumonia and appea rs new compared to old exam. No obvious heart failure.
[2022-11-18 18:55] LABS: Basophils # (A) 0.1 k/uL (0-0.2); Basophils % (A) 0 %; Eosinophils % (A) 0 %; HCT 33.7 % (34.0-46.0); HGB 11.8 gm/dL (11.4-16.0); Lymphocytes # (A) 1.6 k/uL (1.0-4.8); Lymphocytes % (A) 6 %; MCHC 34.9 g/dL (31.0-37.0); MCV 88.7 fL (80.0-100.0); Monocytes # (A) 1.4 k/uL (0-1.0); Monocytes % (A) 5 %; Neutrophils # (A) 25.1 k/uL (1.3-7.7); Neutrophils % (A) 87 %; Platelet Count 274 k/uL (150-450); RBC 3.79 m/uL (3.80-5.40); RDW 13.8 % (11.5-15.5); WBC 28.8 k/uL (3.8-10.6)
[2022-11-18 19:12] LABS: ALT 26 U/L (4-34); AST 21 U/L (14-36); African American GFR (CKD) 26 (>60 ml/min/1.73 sqM); Albumin 3.4 g/dL (3.5-5.0); Alkaline Phosphatase 103 U/L (38-126); Anion Gap 15 mmol/L; Blood Urea Nitrogen 37 mg/dL (7-17); Calcium 8.4 mg/dL (8.4-10.2); Carbon Dioxide 16 mmol/L (22-30); Chloride 95 mmol/L (98-107); Glucose 300 mg/dL (74-99); Magnesium 1.5 mg/dL (1.6-2.3); Non-African American GFR(CKD) 22 (>60 ml/min/1.73 sqM); Potassium 4.3 mmol/L (3.5-5.1); Sodium 126 mmol/L (137-145); Total Bilirubin 0.9 mg/dL (0.2-1.3); Total Protein 6.6 g/dL (6.3-8.2)
[2022-11-18] MEDS ORDERED: VANCOMYCIN IV PER PHARMACY 1 EACH MISC MISCELLANE PRN (19:19)
[2022-11-18] MEDS ORDERED: PIPERACILLIN-TAZOBACTAM 3.375 GM in SODIUM CHLORIDE 0.9% 100 ML IVPB STA (19:24)
[2022-11-18] MEDS ORDERED: VANCOMYCIN 1,500 MG in SODIUM CHLORIDE 0.9% 500 ML 500 ML IVPB STA (19:25)
[2022-11-18 19:40] LABS: Toxic Granulation Present
--- NOTE | 2022-11-18 19:48 | ED ---
General Adult HPI - General Chief complaint: Upper Respiratory Infection Stated complaint: Cough,Weakness Time Seen by Provider: 11/18/22 17:41 Source: patient, family, RN notes reviewed, old records reviewed Mode of arrival: wheelchair Limitations: physical limitation - History of Present Illness Initial comments: Patient is a 67-year-old female who presents to the emergency Department over concern for worsening upper respiratory infection, weakness, cough. Patient has had no appetite and has had decreased by mouth intake. This is been ongoing for a few days. Was recently diagnosed with bronchitis at our emergency department on November 15. She is discharged home on azithromycin. Patient does have a productive cough of an unknown colored mucus.Presents today with worsening symptoms. Presents with family members he states she is not eating or drinking that she is sleeping all day. Has increased weakness. No other acute complaint at this time. Denies any emesis, diarrhea. Denies any abdominal pain. Denies any chest pain. No other acute complaints. Presents for further evaluation of a concern for worsening infection. No known sick contacts. Patient does have a history of diabetes and is uncertain what her most recent sugar was. - Related Data Home Medications Medication Instructions Recorded Confirmed Gabapentin 800 mg PO TID 08/17/20 11/18/22 Insulin Glargine,Hum.rec.anlog 55 unit SQ BID 08/17/20 11/18/22 [Lantus Solostar Pen] Losartan [Cozaar] 50 mg PO DAILY@1600 08/17/20 11/18/22 Oxybutynin Chloride [Oxybutynin 10 mg PO DAILY 08/17/20 11/18/22 Chloride ER] Topiramate 50 mg PO BID 08/17/20 11/18/22 metFORMIN HCL [Glucophage] 1,000 mg PO BID 08/17/20 11/18/22 Cyclobenzaprine [Flexeril] 10 mg PO BID PRN 09/17/21 11/18/22 FLUoxetine HCL [PROzac] 40 mg PO DAILY@1600 09/17/21 11/18/22 Fluticasone Nasal [place] [Flonase 1 - 2 spr EA NOSTRIL HS 09/17/21 11/18/22 Nasal [place]] Albuterol Inhaler [Ventolin Hfa 2 puff INHALATION RT-QID PRN 12/14/21 11/18/22 Inhaler] HYDROcodone/APAP 10-325MG [[place] 1 tab PO Q6H PRN 12/14/21 11/18/22 10-325] Levothyroxine Sodium 88 mcg PO DAILY 12/14/21 11/18/22 QUEtiapine [SEROquel] 400 mg PO HS 12/14/21 11/18/22 Atorvastatin [Lipitor] 40 mg PO DAILY@1600 06/16/22 11/18/22 Cholecalciferol (Vitamin D3) 125 mcg PO DAILY@159906/16/22 11/18/22 [Vitamin D3 (125 MCG = 5,000 IU)] Fluticasone Propion/Salmeterol 1 puff INHALATION RT-BID 06/16/22 11/18/22 [Advair 500-50 Diskus] Multivitamins, Thera [Multivitamin 1 tab PO DAILY@159906/16/22 11/18/22 (formulary)] Triamcinolone 0.1% Cream [Kenalog 1 applic TOPICAL BID PRN 06/16/22 11/18/22 0.1% Cream] Vitamin E (Dl,Tocopheryl Acet) 400 unit PO DAILY@159906/16/22 11/18/22 [Vitamin E (400 Iu = 180 mg)] Azithromycin [Zithromax Z Pack] See Taper PO DIRECTED 11/18/22 11/18/22 Ibuprofen [Motrin] 600 mg PO TID PRN 11/18/22 11/18/22 Loratadine 10 mg PO DAILY 11/18/22 11/18/22 Previous Rx's Medication Instructions Recorded Aspirin 325 mg PO DAILY #30 tab 06/18/22 Lactulose [Cephulac] 30 gm PO BID PRN 7 Days #14 ml 09/04/22 Allergies Allergy/AdvReac Type Severity Reaction Status Date / Time No Known Allergies Allergy Verified 11/18/22 20:20 Review of Systems ROS Statement: Those systems with pertinent positive or pertinent negative responses have been documented in the HPI. Review of Systems: CONST: Denies fever EYES: Denies blurry vision ENT: Endorses nasal congestion C/V: Denies Chest pain RESP: Endorses cough, shortness of breath GI: Denies abdominal pain : Denies dysuria SKIN: Denies rash. MSK: Denies joint pain. NEURO: Denies headache ROS Other: All systems not noted in ROS Statement are negative. 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 HEAD: Normal with no signs of head trauma. EYES: PERRLA, EOMI, conjunctiva normal, no discharge. ENT: Hearing grossly intact, normal oropharynx. RESPIRATORY: Bilateral rhonchi, wheezing. No hypoxia. No increased work of breathing. C/V: Tachycardic. S1 and S2 auscultated. Peripheral pulses 2+ and intact throughout. ABD: Abd is soft, nontender, nondistended EXT: Normal range of motion, no obvious deformity SKIN: No rashes or lesions observed on exposed skin. NEURO: Alert and oriented 4. No focal deficits. Limitations: physical limitation Course Vital Signs 11/18/22 11/18/22 11/18/22 17:36 18:21 19:49 Temperature 98.2 F Pulse Rate 119 H 115 H 113 H Respiratory 24 18 24 Rate Blood Pressure 95/64 142/67 O2 Sat by Pulse 98 94 L 93 L Oximetry Fraction of Inspired Oxygen (FIO2) 11/18/22 11/18/22 20:25 20:44 Temperature Pulse Rate 114 H Respiratory 24 Rate Blood Pressure 148/71 O2 Sat by Pulse 97 94 L Oximetry Fraction of 21 Inspired Oxygen (FIO2) Procedures - Sepsis Sepsis Focused Exam #1 Time Sepsis Criteria Met: 19:17 Sepsis Focused Exam Date: 11/18/22 Sepsis Focused Exam Time: 20:35 Sepsis Focused Exam Complete: Yes Vital Signs & RN Notes Reviewed: Yes Capillary Refill: < 2 Seconds: Fingers, Toes Peripheral Pulses: Normal: Radial (R), Radial (L) Skin Color: Normal for Patient Respiratory Exam: normal lung sounds Cardiovascular Exam: tachycardia Medical Decision Making - Medical Decision Making Was pt. sent in by a medical professional or institution (, PA, FORM STRIPPER, urgent care, hospital, or [place] [facility] facility...) When possible be specific @ -No Did you speak to anyone other than the patient for history (EMS, parent, family, police, friend...)? What history was obtained from this source @ -Yes, family/friend was present in the room and helped with history taking the patient's behavior and activities would last few days. Did you review nursing and triage notes (agree or disagree)? Why? @ -I reviewed and agree with nursing and triage notes Were old charts reviewed (outside hosp., previous admission, EMS record, old EKG, old radiological studies, urgent care reports/EKG's, [place] [facility] facility records)? Report findings @ -Recent chart from 11/15/2022 was reviewed. Differential Diagnosis (chest pain, altered mental status, abdominal pain women, abdominal pain men, vaginal bleeding, weakness, fever, dyspnea, syncope, headache, dizziness, GI bleed, back pain, seizure, CVA, palpatations, mental health, musculoskeletal)? @ -Differential Dyspnea: Coronary syndrome, arrhythmia, tamponade, asthma, COPD, pulmonary embolism, pneumonia, pneumothorax, pulmonary effusion, anaphylaxis, diabetic ketoacidosis, flailed chest, pulmonary contusion, diaphragmatic rupture, anemia, neuromuscular, this is not meant to be an all-inclusive list. EKG interpreted by me (3pts min.). @ -As above X-rays interpreted by me (1pt min.). @ -Chest x-ray shows findings concerning for left-sided pulmonary infiltrate concerning for pneumonia. CT interpreted by me (1pt min.). @ -None done U/S interpreted by me (1pt. min.). @ -None done What testing was considered but not performed or refused? (CT, X-rays, U/S, labs)? Why? @ -None What meds were considered but not given or refused? Why? @ -None Did you discuss the management of the patient with other professionals (professionals i.e. , PA, FORM STRIPPER, lab, RT, psych nurse, manager social work, belt worker, teacher, security officer supervisor, correctional case manager)? Give summary @ -Discussed with the admitting physician, Dr. mcdaniel who requested an infectious disease consult to Dr. Vaughn. Was smoking cessation discussed for >3mins.? @ -No Was critical care preformed (if so, how long)? @ -Yes, 35 minutes Were there social determinants of health that impacted care today? How? (Homelessness, low income, unemployed, alcoholism, drug addiction, transportation, low edu. Level, literacy, decrease access to med. care, half-way, r ehab)? @ -No Was there de-escalation of care discussed even if they declined (Discuss DNR or withdrawal of care, Hospice)? DNR status @ -No What co-morbidities impacted this encounter? (DM, HTN, Smoking, COPD, CAD, Cancer, CVA, ARF, Chemo, Hep., AIDS, mental health diagnosis, sleep apnea, morbid obesity)? @ -COPD Was patient admitted / discharged? Hospital course, mention meds given and route, prescriptions, significant lab abnormalities, going to OR and other pertinent info. @ -Based on the patient's presentation and physical exam, I'm concerned for worsening upper rest or infection for the patient this time. Chest appears dehydrated. She'll be given IV fluids, as well as breathing treatments and IV steroids for mild COPD and aspiration. Vital signs within acceptable limits except for her tachycardia. We will obtain viral swabs, chest x-ray, basic l abs. She was in agreement this plan. EKG shows no signs of acute ischemia. Imaging concerning for left-sided pneumonia. Patient's labs were remarkable for leukocytosis of 28. Lactic acid is elevated to 3.4. Patient has an acute kidney injury with an elevated BUN of 37 and creatinine 2.23 likely secondary to urinary to dehydration and her underlying infection. She is hyponatremic and hypochloremic to 126 and 95 respectively. No evidence of DKA. Negative acetone. Negative Covid, flu, RSV swabs. On reevaluation, i updated the patient as well as family. Patient met sepsis criteria at 1917 upon return of her labs. Blood cultures were obtained and sent. Patient was started on broad-spectrum vancomycin and Zosyn. She'll receive a total of 2 L fluid bolus and started on 130 mL an hour drip of normal saline. We will repeat the lactic acid. She remains hemodynamically stable at this time. I discussed the case with the admitting physician, Dr. mcdaniel who accepted the patient. Patient was admitted in serious condition. Undiagnosed new problem with uncertain prognosis? @ -No Drug Therapy requiring intensive monitoring for toxicity (Heparin, Nitro, Insulin, Cardizem)? @ -No Were any procedures done? @ -No Diagnosis/symptom? @ -Sepsis, secondary to pneumonia Acute, or Chronic, or Acute on Chronic? @ -Acute Uncomplicated (without systemic symptoms) or Complicated (systemic symptoms)? @ -Complicated Side effects of treatment? @ -No Exacerbation, Progression, or Severe Exacerbation? @ -No Poses a threat to life or bodily function? How? (Chest pain, USA, MS, pneumonia, PE, COPD, DKA, ARF, appy, cholecystitis, CVA, Diverticulitis, Homicidal, Suicidal, threat to staff... and all critical care pts) @ -Yes, if untreated can result in significant morbidity and mortality. Diagnosis/symptom? @ -Community acquired pneumonia Acute, or Chronic, or Acute on Chronic? @ -Acute Uncomplicated (without systemic symptoms) or Complicated (systemic symptoms)? @ -Complicated Side effects of treatment? @ -none Exacerbation, Progression, or Severe Exacerbation] @ -no Poses a threat to life or bodily function? @ -Yes, if untreated can result in significant morbidity and mortality. Diagnosis/symptom? @ -Hypomagnesemia Acute, or Chronic, or Acute on Chronic? @ -Acute Uncomplicated (without systemic symptoms) or Complicated (systemic symptoms)? @ -Uncomplicated Side effects of treatment? @ -none Exacerbation, Progression, or Severe Exacerbation] @ -no Poses a threat to life or bodily function? @ -no Diagnosis/symptom? @ -Acute kidney injury Acute, or Chronic, or Acute on Chronic? @ -Acute Uncomplicated (without systemic symptoms) or Complicated (systemic symptoms)? @ -Complicated Side effects of treatment? @ -none Exacerbation, Progression, or Severe Exacerbation] @ -no Poses a threat to life or bodily function? @ -Yes, if untreated can result in significant morbidity and mortality. Diagnosis/symptom? @ -Lactic acidosis Acute, or Chronic, or Acute on Chronic? @ -Acute Uncomplicated (without systemic symptoms) or Complicated (systemic symptoms)? @ -Uncomplicated Side effects of treatment? @ -none Exacerbation, Progression, or Severe Exacerbation] @ -no Poses a threat to life or bodily function? @ -no - Lab Data Result diagrams: 11/18/22 18:07 11/18/22 18:07 Lab Results 11/18/22 11/18/22 11/18/22 Range/Units 18:07 18:07 18:07 WBC 28.8 H (3.8-10.6) k/uL RBC 3.79 L (3.80-5.40) m/uL Hgb 11.8 (11.4-16.0) gm/dL Hct 33.7 L (34.0-46.0) % MCV 88.7 (80.0-100.0) fL MCH 31.0 (25.0-35.0) pg MCHC 34.9 (31.0-37.0) g/dL RDW 13.8 (11.5-15.5) % Plt Count 274 (150-450) k/uL MPV 7.0 Neutrophils % 87 % Lymphocytes % 6 % Monocytes % 5 % Eosinophils % 0 % Basophils % 0 % Neutrophils # 25.1 H (1.3-7.7) k/uL Lymphocytes # 1.6 (1.0-4.8) k/uL Monocytes # 1.4 H (0-1.0) k/uL Eosinophils # 0.0 (0-0.7) k/uL Basophils # 0.1 (0-0.2) k/uL Manual Slide Review Performed Toxic Granulation Present Sodium 126 L (137-145) mmol/L Potassium 4.3 (3.5-5.1) mmol/L Chloride 95 L (98-107) mmol/L Carbon Dioxide 16 L (22-30) mmol/L Anion Gap 15 mmol/L BUN 37 H (7-17) mg/dL Creatinine 2.23 H (0.52-1.04) mg/dL Est GFR (CKD-EPI)AfAm 26 (>60 ml/min/1.73 sqM) Est GFR (CKD-EPI)NonAf 22 (>60 ml/min/1.73 sqM) Glucose 300 H (74-99) mg/dL Plasma Lactic Acid [place] 3.4 H* (0.7-2.0) mmol/L Calcium 8.4 (8.4-10.2) mg/dL Magnesium 1.5 L (1.6-2.3) mg/dL Total Bilirubin 0.9 (0.2-1.3) mg/dL AST 21 (14-36) U/L ALT 26 (4-34) U/L Alkaline Phosphatase 103 (38-126) U/L NT-Pro-B Natriuret Pep pg/mL Total Protein 6.6 (6.3-8.2) g/dL Albumin 3.4 L (3.5-5.0) g/dL Acetone, Qual Negative (Negative) Influenza Type A (PCR) (Not Detectd) Influenza Type B (PCR) (Not Detectd) RSV (PCR) (Not Detectd) SARS-CoV-2 (PCR) (Not Detectd) 11/18/22 11/18/22 Range/Units 18:07 18:07 WBC (3.8-10.6) k/uL RBC (3.80-5.40) m/uL Hgb (11.4-16.0) gm/dL Hct (34.0-46.0) % MCV (80.0-100.0) fL MCH (25.0-35.0) pg MCHC (31.0-37.0) g/dL RDW (11.5-15.5) % Plt Count (150-450) k/uL MPV Neutrophils % % Lymphocytes % % Monocytes % % Eosinophils % % Basophils % % Neutrophils # (1.3-7.7) k/uL Lymphocytes # (1.0-4.8) k/uL Monocytes # (0-1.0) k/uL Eosinophils # (0-0.7) k/uL Basophils # (0-0.2) k/uL Manual Slide Review Toxic Granulation Sodium (137-145) mmol/L Potassium (3.5-5.1) mmol/L Chloride (98-107) mmol/L Carbon Dioxide (22-30) mmol/L Anion Gap mmol/L BUN (7-17) mg/dL Creatinine (0.52-1.04) mg/dL Est GFR (CKD-EPI)AfAm (>60 ml/min/1.73 sqM) Est GFR (CKD-EPI)NonAf (>60 ml/min/1.73 sqM) Glucose (74-99) mg/dL Plasma Lactic Acid [place] (0.7-2.0) mmol/L Calcium (8.4-10.2) mg/dL Magnesium (1.6-2.3) mg/dL Total Bilirubin (0.2-1.3) mg/dL AST (14-36) U/L ALT (4-34) U/L Alkaline Phosphatase (38-126) U/L NT-Pro-B Natriuret Pep 370 pg/mL Total Protein (6.3-8.2) g/dL Albumin (3.5-5.0) g/dL Acetone, Qual (Negative) Influenza Type A (PCR) Not Detected (Not Detectd) Influenza Type B (PCR) Not Detected (Not Detectd) RSV (PCR) Not Detected (Not Detectd) SARS-CoV-2 (PCR) Not Detected (Not Detectd) - EKG Data -: EKG Interpreted by Me EKG Comments: 12-lead Electrocardiogram Interpretation Note EKG was reviewed and interpreted by myself. 12-lead ECG performed at 1814 is interpreted by me as revealing sinus tachycardia at a rate of 118 beats per minute. [place] is normal. NM interval is 163 ms, QRS duration is 85 ms, QTc is 410 ms.. There were no obvious ST or T wave abnormalities to suggest myocardial ischemia or injury. R wave progression across the precordium was satisfactory. By my interpretation this EKG is non-diagnostic for acute ischemia. There is a good deal of baseline motion artifact which does make this difficult to interpret. Critical Care Time Critical Care Time: Yes Total Critical Care Time: 35 Critical Care Time: Upon my evaluation, this patient had a high probability of imminent or life- threatening deterioration due to sepsis, pneumonia, AK I, which required my direct attention, intervention, and personal management. I have personally provided 35 minutes of critical care time exclusive of time spent on separately billable procedures. Time includes review of laboratory data, radiology results, discussion with consultants, and monitoring for potential decompensation. Interventions were performed as documented in my note. Disposition Clinical Impression: Hypomagnesemia, Pneumonia, Sepsis, COPD (chronic obstructive pulmonary disease), Lactic acidosis, THIERRY (acute kidney injury) Disposition: ADMITTED IP TO THIS HOSP Condition: Serious Time of Disposition: 19:50
[2022-11-18] MEDS: MAGNESIUM SULFATE-D5W PMX 1 GM in DEXTROSE/WATER 1 100ML.BAG IVPB SCH (19:52)
[2022-11-18] MEDS ORDERED: NALOXONE 0.4 MG/ML 1 ML VIAL IV PRN (20:03)
[2022-11-18] MEDS ORDERED: ONDANSETRON 4 MG/2 ML VIAL IVP PRN (20:03)
[2022-11-18] MEDS ORDERED: LACTULOSE 20 GM/30 ML CUP PO PRN (20:32)
[2022-11-18] MEDS ORDERED: IBUPROFEN 600 MG TAB PO PRN (20:32)
[2022-11-18] MEDS ORDERED: CYCLOBENZAPRINE 10 MG TAB PO PRN (20:32)
[2022-11-18] MEDS ORDERED: MORPHINE SULFATE 4 MG/ML SYRINGE IVP STA (20:33)
[2022-11-18] MEDS ORDERED: metFORMIN 500 MG TAB PO SCH (21:00)
[2022-11-18 21:48] LABS: Glucose,Whole Blood 483 mg/dL (70-110)
[2022-11-18] MEDS ORDERED: DEXTROSE 50% SYRINGE 50 ML IVP PRN ×2 (22:00)
[2022-11-18] MEDS: QUEtiapine 400 MG TAB PO SCH (22:14)
[2022-11-18] MEDS: TOPIRAMATE 25 MG TAB PO SCH (22:14)
[2022-11-18] MEDS: INSULIN DETEMIR (LEVEMIR) 100 UNIT/ML SYR SQ SCH (22:14)
[2022-11-18] MEDS: GABAPENTIN 400 MG CAP PO SCH (22:19)
[2022-11-18] MEDS: HEPARIN SODIUM,PORCINE/PF 5,000 UNIT/0.5 ML SYRINGE SQ SCH (22:19)
[2022-11-18] MEDS: HYDROcodone/APAP 10-325MG 1 EACH TAB PO PRN (22:32)
[2022-11-19] MEDS: MAGNESIUM SULFATE-D5W PMX 1 GM in DEXTROSE/WATER 1 100ML.BAG IVPB SCH (00:25)
[2022-11-19 05:32] LABS: Glucose,Whole Blood 481 mg/dL (70-110)
[2022-11-19] MEDS: INSULIN DETEMIR (LEVEMIR) 100 UNIT/ML SYR SQ SCH ×2 (05:52→21:07)
[2022-11-19] MEDS: INSULIN ASPART (NovoLOG) 100 UNIT/ML VIAL SQ SCH ×5 (05:52→21:07)
[2022-11-19] MEDS: LEVOTHYROXINE 88 MCG TAB PO SCH (05:52)
[2022-11-19] MEDS: SYMBICORT 160-4.5 MCG INHALER INHALATION SCH ×2 (07:52→20:23)
[2022-11-19 08:56] LABS: HCT 29.1 % (37.2-46.3); HGB 9.9 g/dL (12.0-15.0); MCH 30.8 pg (27.0-32.0); MCV 90.7 fL (80.0-97.0); Mean Platelet Volume 8.6 fL (9.5-12.2); NRBC Per 100 WBC 0 /100 WBCS (0.0-0.0); Platelet Count 212 X 10*3/uL (140-440); RBC 3.21 X 10*6/uL (4.10-5.20); RDW 13.2 % (11.5-14.5); WBC 26.75 X 10*3/uL (4.50-10.00)
[2022-11-19] MEDS: TOPIRAMATE 25 MG TAB PO SCH ×2 (08:56→20:55)
[2022-11-19] MEDS: ASPIRIN 325 MG TAB PO SCH (08:56)
[2022-11-19] MEDS: GABAPENTIN 400 MG CAP PO SCH ×3 (08:56→20:54)
[2022-11-19] MEDS: OXYBUTYNIN 10 MG TAB.ER.24 PO SCH (08:56)
[2022-11-19] MEDS: HEPARIN SODIUM,PORCINE/PF 5,000 UNIT/0.5 ML SYRINGE SQ SCH ×3 (08:57→23:46)
[2022-11-19] MEDS ORDERED: PIPERACILLIN-TAZOBACTAM 3.375 GM in SODIUM CHLORIDE 0.9% 100 ML IVPB SCH (09:00)
[2022-11-19 09:06] LABS: African American GFR (CKD) 38.2 (60.0-200.0); Anion Gap 11.7 mmol/L (10.00-18.00); BUN/Creat Ratio 24.56 Ratio (12.00-20.00); Blood Urea Nitrogen 39.3 mg/dL (9.0-27.0); Calcium 7.9 mg/dL (8.7-10.3); Carbon Dioxide 16.3 mmol/L (20.0-27.5); Potassium 3.9 mmol/L (3.5-5.5)
[2022-11-19 10:24] LABS: Basophils # (A) 0.11 X 10*3/uL (0.00-0.10); Basophils % (A) 0.4 %; Crenated RBC 2+; Eosinophils # (A) 0 X 10*3/uL (0.04-0.35); Eosinophils % (A) 0 %; Immature Grans, Automated 2.2 %; Lymphocytes # (A) 0.88 X 10*3/uL (0.90-5.00); Lymphocytes % (A) 3.3 %; Monocytes # (A) 0.79 X 10*3/uL (0.20-1.00); Neutrophils # (A) 24.39 X 10*3/uL (1.80-7.70); Neutrophils % (A) 91.1 %; Polychromasia 2+
[2022-11-19 11:51] LABS: Glucose,Whole Blood 443 mg/dL (70-110)
[2022-11-19] MEDS ORDERED: VANCOMYCIN 1,500 MG in SODIUM CHLORIDE 0.9% 500 ML 500 ML IVPB ONE (12:00)
[2022-11-19] MEDS: HYDROcodone/APAP 10-325MG 1 EACH TAB PO PRN ×2 (13:45→20:54)
[2022-11-19] MEDS: ATORVASTATIN 40 MG TAB PO SCH (15:59)
[2022-11-19] MEDS: CHOLECALCIFEROL 125 MCG (5000 IU) TABLET PO SCH (15:59)
[2022-11-19] MEDS: MULTIVITAMINS, THERA 1 EACH TAB PO SCH (15:59)
[2022-11-19] MEDS: FLUoxetine HCL 20 MG CAP PO SCH (15:59)
[2022-11-19] MEDS: LOSARTAN 50 MG TAB PO SCH (15:59)
[2022-11-19] MEDS: PIPERACILLIN-TAZOBACTAM 3.375 GM in SODIUM CHLORIDE 0.9% 100 ML IVPB SCH ×2 (16:00→23:45)
[2022-11-19 16:46] LABS: Glucose,Whole Blood 406 mg/dL (70-110)
--- NOTE | 2022-11-19 17:10 | P.HPIM ---
History of Present Illness H&P Date: 11/19/22 Chief Complaint: Cough/upper respiratory infection 67-year-old female who presents to the emergency Department over concern for worsening upper respiratory infection, weakness, cough. Patient has had no appetite and has had decreased by mouth intake. This is been ongoing for a few days. Was recently diagnosed with bronchitis at our emergency department on November 15. She is discharged home on azithromycin. Patient does have a productive cough of an unknown colored mucus.Presents today with worsening symptoms. Presents with family members he states she is not eating or drinking that she is sleeping all day. Has increased weakness. No other acute complaint at this time. Denies any emesis, diarrhea. Denies any abdominal pain. Denies any chest pain. No other acute complaints. Presents for further evaluation of a concern for worsening infection. No known sick contacts. Patient does have a history of diabetes and is uncertain what her most recent sugar was. EKG shows no signs of acute ischemia. Imaging concerning for left-sided pneumonia. Patient's labs were remarkable for leukocytosis of 28. Lactic acid is elevated to 3.4. Patient has an acute kidney injury with an elevated BUN of 37 and creatinine 2.23 likely secondary to urinary to dehydration and her underlying infection. She is hyponatremic and hypochloremic to 126 and 95 respectively. No evidence of DKA. Negative acetone. Negative Covid, flu, RSV swabs. On reevaluation, i updated the patient as well as family. Patient met sepsis criteria at 1917 upon return of her labs. Blood cultures were obtained and sent. Patient was started on broad-spectrum vancomycin and Zosyn. She'll receive a total of 2 L fluid bolus and started on 130 mL an hour drip of normal saline. We will repeat the lactic acid. She remains hemodynamically stable at this time. Review of Systems REVIEW OF SYSTEMS: CONSTITUTIONAL: No fever, no malaise, no fatigue. HEENT: No recent visual problems or hearing problems. Denied any sore throat. CARDIOVASCULAR: No chest pain, orthopnea, PND, no palpitations, no syncope. PULMONARY: No shortness of breath, no cough, no hemoptysis. GASTROINTESTINAL: No diarrhea, no nausea, no vomiting, no abdominal pain. NEUROLOGICAL: No headaches, no weakness, no numbness. HEMATOLOGICAL: Denies any bleeding or petechiae. GENITOURINARY: Denies any burning micturition, frequency, or urgency. MUSCULOSKELETAL/RHEUMATOLOGICAL: Denies any joint pain, swelling, or any muscle pain. ENDOCRINE: Denies any polyuria or polydipsia. The rest of the 14-point review of systems is negative. 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 Medications and Allergies Home Medications Medication Instructions Recorded Confirmed Type Gabapentin 800 mg PO TID 08/17/20 11/18/22 History Insulin Glargine,Hum.rec.anlog 55 unit SQ BID 08/17/20 11/18/22 History [Lantus Solostar Pen] Losartan [Cozaar] 50 mg PO DAILY@1600 08/17/20 11/18/22 History Oxybutynin Chloride [Oxybutynin 10 mg PO DAILY 08/17/20 11/18/22 History Chloride ER] Topiramate 50 mg PO BID 08/17/20 11/18/22 History metFORMIN HCL [Glucophage] 1,000 mg PO BID 08/17/20 11/18/22 History Cyclobenzaprine [Flexeril] 10 mg PO BID PRN 09/17/21 11/18/22 History FLUoxetine HCL [PROzac] 40 mg PO DAILY@1600 09/17/21 11/18/22 History Fluticasone Nasal [place] [Flonase 1 - 2 spr EA NOSTRIL 09/17/21 11/18/22 History Nasal [place]] Albuterol Inhaler [Ventolin Hfa 2 puff INHALATION RT-QID PRN 12/14/21 11/18/22 History Inhaler] HYDROcodone/APAP 10-325MG [[place] 1 tab PO Q6H PRN 12/14/21 11/18/22 History 10-325] Levothyroxine Sodium 88 mcg PO DAILY 12/14/21 11/18/22 History QUEtiapine [SEROquel] 400 mg PO HS 12/14/21 11/18/22 History Atorvastatin [Lipitor] 40 mg PO DAILY@159906/16/22 11/18/22 History Cholecalciferol (Vitamin D3) 125 mcg PO DAILY@159906/16/22 11/18/22 History [Vitamin D3 (125 MCG = 5,000 IU)] Fluticasone Propion/Salmeterol 1 puff INHALATION RT-BID 06/16/22 11/18/22 History [Advair 500-50 Diskus] Multivitamins, Thera [Multivitamin 1 tab PO DAILY@159906/16/22 11/18/22 History (formulary)] Triamcinolone 0.1% Cream [Kenalog 1 applic TOPICAL BID PRN 06/16/22 11/18/22 History 0.1% Cream] Vitamin E (Dl,Tocopheryl Acet) 400 unit PO DAILY@159906/16/22 11/18/22 History [Vitamin E (400 Iu = 180 mg)] Aspirin 325 mg PO DAILY #30 tab 06/18/22 11/18/22 Rx Lactulose [Cephulac] 30 gm PO BID PRN 7 Days #14 ml 09/04/22 11/18/22 Rx Azithromycin [Zithromax Z Pack] See Taper PO DIRECTED 11/18/22 11/18/22 History Ibuprofen [Motrin] 600 mg PO TID PRN 11/18/22 11/18/22 History Loratadine 10 mg PO DAILY 11/18/22 11/18/22 History Allergies Allergy/AdvReac Type Severity Reaction Status Date / Time No Known Allergies Allergy Verified 11/18/22 20:20 Physical Exam Vitals: Vital Signs Temp Pulse Pulse Resp BP BP Pulse Ox 11/19/22 07:08 96.4 F L 79 18 114/61 93 L 11/19/22 02:00 98.9 F 81 17 83/44 90 L 11/18/22 21:15 99.0 F 113 H 18 131/68 93 L 11/18/22 20:44 114 H 24 148/71 94 L 11/18/22 20:25 97 11/18/22 19:49 113 H 24 142/67 93 L 11/18/22 18:21 115 H 18 94 L 11/18/22 17:36 98.2 F 119 H 24 95/64 98 FiO2 11/19/22 07:08 11/19/22 02:00 11/18/22 21:15 11/18/22 20:44 11/18/22 20:25 21 11/18/22 19:49 11/18/22 18:21 11/18/22 17:36 Intake and Output 11/18/22 11/19/22 11/19/22 22:59 06:59 14:59 Other: # Voids 1 Weight 90.718 kg General: Appears weak. HEAD: Normal with no signs of head trauma. EYES: PERRLA, EOMI, conjunctiva normal, no discharge. ENT: Hearing grossly intact, normal oropharynx. RESPIRATORY: Bilateral rhonchi, wheezing. No hypoxia. No increased work of breathing. C/V: Tachycardic. S1 and S2 auscultated. Peripheral pulses 2+ and intact throughout. ABD: Abd is soft, nontender, nondistended EXT: Normal range of motion, no obvious deformity SKIN: No rashes or lesions observed on exposed skin. NEURO: Alert and oriented 4. No focal deficits. Results CBC & Chem 7: 11/19/22 06:23 11/19/22 06:23 Labs: Abnormal Lab Results - Last 24 Hours (Table) 11/18/22 11/18/22 11/18/22 Range/Units 18:07 18:07 18:07 WBC 28.8 H (3.8-10.6) k/uL RBC 3.79 L (3.80-5.40) m/uL Hgb (12.0-15.0) g/dL Hct 33.7 L (34.0-46.0) % MPV (9.5-12.2) fL Neutrophils # 25.1 H (1.3-7.7) k/uL Monocytes # 1.4 H (0-1.0) k/uL Sodium 126 L (137-145) mmol/L Chloride 95 L (98-107) mmol/L Carbon Dioxide 16 L (22-30) mmol/L BUN 37 H (7-17) mg/dL Creatinine 2.23 H (0.52-1.04) mg/dL Est GFR (CKD-EPI)AfAm (60.0-200.0) Est GFR (CKD-EPI)NonAf (60.0-200.0) BUN/Creatinine Ratio (12.00-20.00) Ratio Glucose 300 H (74-99) mg/dL POC Glucose (mg/dL) (70-110) mg/dL Plasma Lactic Acid Kashif 3.4 H* (0.7-2.0) mmol/L Calcium (8.7-10.3) mg/dL Magnesium 1.5 L (1.6-2.3) mg/dL Albumin 3.4 L (3.5-5.0) g/dL 11/18/22 11/18/22 11/19/22 Range/Units 21:46 22:07 05:30 WBC (3.8-10.6) k/uL RBC (3.80-5.40) m/uL Hgb (12.0-15.0) g/dL Hct (34.0-46.0) % MPV (9.5-12.2) fL Neutrophils # (1.3-7.7) k/uL Monocytes # (0-1.0) k/uL Sodium (137-145) mmol/L Chloride (98-107) mmol/L Carbon Dioxide (22-30) mmol/L BUN (7-17) mg/dL Creatinine (0.52-1.04) mg/dL Est GFR (CKD-EPI)AfAm (60.0-200.0) Est GFR (CKD-EPI)NonAf (60.0-200.0) BUN/Creatinine Ratio (12.00-20.00) Ratio Glucose (74-99) mg/dL POC Glucose (mg/dL) 483 H 481 H (70-110) mg/dL Plasma Lactic Acid Kashif 2.4 H* (0.7-2.0) mmol/L Calcium (8.7-10.3) mg/dL Magnesium (1.6-2.3) mg/dL Albumin (3.5-5.0) g/dL 11/19/22 11/19/22 Range/Units 06:23 06:23 WBC 26.75 H (3.8-10.6) k/uL RBC 3.21 L (3.80-5.40) m/uL Hgb 9.9 L (12.0-15.0) g/dL Hct 29.1 L (34.0-46.0) % MPV 8.6 L (9.5-12.2) fL Neutrophils # (1.3-7.7) k/uL Monocytes # (0-1.0) k/uL Sodium 125 L (137-145) mmol/L Chloride (98-107) mmol/L Carbon Dioxide 16.3 L (22-30) mmol/L BUN 39.3 H (7-17) mg/dL Creatinine 1.6 H (0.52-1.04) mg/dL Est GFR (CKD-EPI)AfAm 38.2 L (60.0-200.0) Est GFR (CKD-EPI)NonAf 33.0 L (60.0-200.0) BUN/Creatinine Ratio 24.56 H (12.00-20.00) Ratio Glucose 449 H (74-99) mg/dL POC Glucose (mg/dL) (70-110) mg/dL Plasma Lactic Acid Kashif (0.7-2.0) mmol/L Calcium 7.9 L (8.7-10.3) mg/dL Magnesium (1.6-2.3) mg/dL Albumin (3.5-5.0) g/dL Thrombosis Risk Factor Assmnt - Choose All That Apply Any of the Below Risk Factors Present?: Yes Each Factor Represents 1 point: Obesity (BMI >25) Other Risk Factors: Yes Each Risk Factor Represents 2 Points: Age 61-74 years Other congenital or acquired thrombophilia - If yes, enter type in comment: No Thrombosis Risk Factor Assessment Total Risk Factor Score: 3 Thrombosis Risk Factor Assessment Level: Moderate Risk Assessment and Plan Assessment: 1. Pneumonia/sepsis - Patient has been placed on IV Zosyn and vancomycin; blood cultures and sputum culture is obtained; we will monitor CBC, CRP and pro-calcitonin; consult ID for further recommendations 2. Acute exacerbation COPD; patient received methylprednisolone 125 mg 1 in ED; we will continue with oral prednisone 40 mg daily for 5 days; continue with bronchodilator and steroid inhaler therapy 3. Acute renal injury/dehydration; IV fluid hydration in form of normal saline; monitor strict MATTHEW's, daily weights, renal function and electrolytes; avoid nephrotoxins and hypotension 4. Hyponatremia; patient has been placed on IV fluids in form of normal saline; we will monitor electrolytes closely with plans for dietary fluid restriction and sodium level continues to drop 5. Hypertension; losartan 50 mg daily 6. History of diabetes mellitus/hyperglycemia; currently not acidotic; hyperglycemia likely is related to steroid use; we will resume home dose of Lantus 55 units subcu twice a day; we will add 3 meal short-acting insulin at 10 units subcu every before meals and at bedtime; continue with insulin sliding scale 7. Hyperlipidemia; Lipitor 40 mg by mouth daily 8. Hypothyroidism; levothyroxin 88 MCG daily
[2022-11-19 20:35] LABS: Glucose,Whole Blood 270 mg/dL (70-110)
--- NOTE | 2022-11-19 20:47 | P.CONS ---
History of Present Illness - Reason for Consult Consult date: 11/19/22 Pneumonia sepsis Requesting physician: Rolly Bruno - Chief Complaint Increasing shortness of breath and cough x few days - History of Present Illness Patient is a 67-year female with a past medical history of negative for diabetes mellitus hypertension COPD presenting to the ER yesterday for evaluation of increasing shortness of breath weakness and cough along with decreased oral intake patient symptom has been going on for few days apparently the patient was evaluated at [facility] ER on November 15 diagnosed with bronchitis and was discharged on azithromycin however the patient mention she did have a worsening shortness of breath she also have a cough with moderate intensity occasional sputum production denies any hemoptysis patient denies kapoor ving any pleuritic chest pain denies any nausea no vomiting no abdominal pain or any diarrhea with the symptoms the patient presented to the hospital on arrival to the ER patient was afebrile did have 1 low-grade fever of 99 F patient is currently 93 to 96% on room air patient did have white count 20,000 with a left shift did have elevated BUN/creatinine lactic acid was elevated liver enzymes are normal influenza RSV and COVID testing was negative patient did have a chest x-ray mild left-sided pulm infiltrate could be acute pneumonia patient was started on vancomycin and Zosyn infectious disease was consulted for further management of antibiotic therapy Review of Systems Positive point has been mentioned in the HPI rest of the systems are negative 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 Past Anesthesia/Blood Transfusion Reactions: No Reported Reaction Past Psychological History: Depression Smoking Status: Current every day smoker Past Alcohol Use History: None Reported Past Drug Use History: None Reported Additional Drug Use History / Comment(s): Patient states she smokes about 10 cig/day. Medications and Allergies Home Medications Medication Instructions Recorded Confirmed Type Gabapentin 800 mg PO TID 08/17/20 11/18/22 History Insulin Glargine,Hum.rec.anlog 55 unit SQ BID 08/17/20 11/18/22 History [Lantus Solostar Pen] Losartan [Cozaar] 50 mg PO DAILY@1600 08/17/20 11/18/22 History Oxybutynin Chloride [Oxybutynin 10 mg PO DAILY 08/17/20 11/18/22 History Chloride ER] Topiramate 50 mg PO BID 08/17/20 11/18/22 History metFORMIN HCL [Glucophage] 1,000 mg PO BID 08/17/20 11/18/22 History Cyclobenzaprine [Flexeril] 10 mg PO BID PRN 09/17/21 11/18/22 History FLUoxetine HCL [PROzac] 40 mg PO DAILY@159909/17/21 11/18/22 History Fluticasone Nasal [place] [Flonase 1 - 2 spr EA NOSTRIL HS 09/17/21 11/18/22 History Nasal [place]] Albuterol Inhaler [Ventolin Hfa 2 puff INHALATION RT-QID PRN 12/14/21 11/18/22 History Inhaler] HYDROcodone/APAP 10-325MG [[place] 1 tab PO Q6H PRN 12/14/21 11/18/22 History 10-325] Levothyroxine Sodium 88 mcg PO DAILY 12/14/21 11/18/22 History QUEtiapine [SEROquel] 400 mg PO HS 12/14/21 11/18/22 History Atorvastatin [Lipitor] 40 mg PO DAILY@159906/16/22 11/18/22 History Cholecalciferol (Vitamin D3) 125 mcg PO DAILY@159906/16/22 11/18/22 History [Vitamin D3 (125 MCG = 5,000 IU)] Fluticasone Propion/Salmeterol 1 puff INHALATION RT-BID 06/16/22 11/18/22 History [Advair 500-50 Diskus] Multivitamins, Thera [Multivitamin 1 tab PO DAILY@159906/16/22 11/18/22 History (formulary)] Triamcinolone 0.1% Cream [Kenalog 1 applic TOPICAL BID PRN 06/16/22 11/18/22 History 0.1% Cream] Vitamin E (Dl,Tocopheryl Acet) 400 unit PO DAILY@159906/16/22 11/18/22 History [Vitamin E (400 Iu = 180 mg)] Aspirin 325 mg PO DAILY #30 tab 06/18/22 11/18/22 Rx Lactulose [Cephulac] 30 gm PO BID PRN 7 Days #14 ml 09/04/22 11/18/22 Rx Ibuprofen [Motrin] 600 mg PO TID PRN 11/18/22 11/18/22 History Loratadine 10 mg PO DAILY 11/18/22 11/18/22 History Amoxic-Pot Clav 875-125Mg 1 tab PO Q12HR 10 Days #20 tab 11/23/22 Rx [Augmentin 875-125] amLODIPine [Norvasc] 5 mg PO DAILY 30 Days #30 tab 11/23/22 Rx predniSONE 10 mg PO DAILY 6 Days #14 tab 11/23/22 Rx Allergies Allergy/AdvReac Type Severity Reaction Status Date / Time No Known Allergies Allergy Verified 11/18/22 20:20 Physical Exam Vitals: Vital Signs Temp Pulse Pulse Resp BP BP Pulse Ox 11/19/22 07:08 96.4 F L 79 18 114/61 93 L 11/19/22 02:00 98.9 F 81 17 83/44 90 L 11/18/22 21:15 99.0 F 113 H 18 131/68 93 L 11/18/22 20:44 114 H 24 148/71 94 L 11/18/22 20:25 97 11/18/22 19:49 113 H 24 142/67 93 L 11/18/22 18:21 115 H 18 94 L 11/18/22 17:36 98.2 F 119 H 24 95/64 98 FiO2 11/19/22 07:08 11/19/22 02:00 11/18/22 21:15 11/18/22 20:44 11/18/22 20:25 21 11/18/22 19:49 11/18/22 18:21 11/18/22 17:36 Intake and Output 11/18/22 11/19/22 11/19/22 22:59 06:59 14:59 Other: # Voids 1 Weight 90.718 kg GENERAL DESCRIPTION: Elderly female lying in bed, no distress. No tachypnea or accessory muscle of respiration use. HEENT: Shows Pallor , no scleral icterus. Oral mucous membrane is dry. No pharyngeal erythema or thrush NECK: Trachea central, no thyromegaly. LUNGS: Unlabored breathing. Coarse breath sounds bilaterally with occasional wheeze. HEART: S1, S2, regular rate and rhythm. No loud murmur ABDOMEN: Soft, no tenderness , guarding or rigidity, no organomegaly EXTREMITIES: No edema of feet. SKIN: No rash, no masses palpable. NEUROLOGICAL: The patient is awake, alert, oriented x3, mood and affect normal. Results CBC & Chem 7: 11/23/22 06:25 11/23/22 06:25 Labs: Abnormal Lab Results - Last 24 Hours (Table) 11/18/22 11/18/22 11/18/22 Range/Units 18:07 18:07 18:07 WBC 28.8 H (3.8-10.6) k/uL RBC 3.79 L (3.80-5.40) m/uL Hgb (12.0-15.0) g/dL Hct 33.7 L (34.0-46.0) % MPV (9.5-12.2) fL Neutrophils # 25.1 H (1.3-7.7) k/uL Monocytes # 1.4 H (0-1.0) k/uL Sodium 126 L (137-145) mmol/L Chloride 95 L (98-107) mmol/L Carbon Dioxide 16 L (22-30) mmol/L BUN 37 H (7-17) mg/dL Creatinine 2.23 H (0.52-1.04) mg/dL Est GFR (CKD-EPI)AfAm (60.0-200.0) Est GFR (CKD-EPI)NonAf (60.0-200.0) BUN/Creatinine Ratio (12.00-20.00) Ratio Glucose 300 H (74-99) mg/dL POC Glucose (mg/dL) (70-110) mg/dL Plasma Lactic Acid Kashif 3.4 H* (0.7-2.0) mmol/L Calcium (8.7-10.3) mg/dL Magnesium 1.5 L (1.6-2.3) mg/dL Albumin 3.4 L (3.5-5.0) g/dL 11/18/22 11/18/22 11/19/22 Range/Units 21:46 22:07 05:30 WBC (3.8-10.6) k/uL RBC (3.80-5.40) m/uL Hgb (12.0-15.0) g/dL Hct (34.0-46.0) % MPV (9.5-12.2) fL Neutrophils # (1.3-7.7) k/uL Monocytes # (0-1.0) k/uL Sodium (137-145) mmol/L Chloride (98-107) mmol/L Carbon Dioxide (22-30) mmol/L BUN (7-17) mg/dL Creatinine (0.52-1.04) mg/dL Est GFR (CKD-EPI)AfAm (60.0-200.0) Est GFR (CKD-EPI)NonAf (60.0-200.0) BUN/Creatinine Ratio (12.00-20.00) Ratio Glucose (74-99) mg/dL POC Glucose (mg/dL) 483 H 481 H (70-110) mg/dL Plasma Lactic Acid Kashif 2.4 H* (0.7-2.0) mmol/L Calcium (8.7-10.3) mg/dL Magnesium (1.6-2.3) mg/dL Albumin (3.5-5.0) g/dL 11/19/22 11/19/22 Range/Units 06:23 06:23 WBC 26.75 H (3.8-10.6) k/uL RBC 3.21 L (3.80-5.40) m/uL Hgb 9.9 L (12.0-15.0) g/dL Hct 29.1 L (34.0-46.0) % MPV 8.6 L (9.5-12.2) fL Neutrophils # (1.3-7.7) k/uL Monocytes # (0-1.0) k/uL Sodium 125 L (137-145) mmol/L Chloride (98-107) mmol/L Carbon Dioxide 16.3 L (22-30) mmol/L BUN 39.3 H (7-17) mg/dL Creatinine 1.6 H (0.52-1.04) mg/dL Est GFR (CKD-EPI)AfAm 38.2 L (60.0-200.0) Est GFR (CKD-EPI)NonAf 33.0 L (60.0-200.0) BUN/Creatinine Ratio 24.56 H (12.00-20.00) Ratio Glucose 449 H (74-99) mg/dL POC Glucose (mg/dL) (70-110) mg/dL Plasma Lactic Acid Kashif (0.7-2.0) mmol/L Calcium 7.9 L (8.7-10.3) mg/dL Magnesium (1.6-2.3) mg/dL Albumin (3.5-5.0) g/dL Assessment and Plan (1) Pneumonia Current Visit: Yes Status: Acute Code(s): J18.9 - PNEUMONIA, UNSPECIFIED ORGANISM SNOMED Code(s): 646694255 Plan: 1patient presented to hospital with increased shortness of breath cough productive sputum with a left-sided infiltrate concerning for pneumonia in this patient apparently failing outpatient oral Zithromax therapy will need to cover for the community-acquired as well as gram-negative pathogen in this patient who did have a history of COPD and exposure to antibiotics. 2patient with renal insufficiency and high risk of nephrotoxicity from vancomycin. 3we will try to obtain a sputum for Gram stain and culture check a CRP and a procalcitonin level. 4continue with the Zosyn however discontinue vancomycin. We will follow on clinical condition and cultures to further adjust medication if needed Thank you for this consultation we will follow the patient along with you Time with Patient: Greater than 30
[2022-11-19] MEDS: QUEtiapine 400 MG TAB PO SCH (20:55)
[2022-11-19] MEDS: FLUTICASONE 50MCG/SPRAY NASAL 16GM EA NOSTRIL SCH (21:03)
[2022-11-20 06:16] LABS: Glucose,Whole Blood 160 mg/dL (70-110)
[2022-11-20] MEDS: INSULIN ASPART (NovoLOG) 100 UNIT/ML VIAL SQ SCH ×7 (06:40→21:11)
[2022-11-20] MEDS: LEVOTHYROXINE 88 MCG TAB PO SCH (06:40)
[2022-11-20] MEDS: HEPARIN SODIUM,PORCINE/PF 5,000 UNIT/0.5 ML SYRINGE SQ SCH ×3 (07:58→23:41)
[2022-11-20] MEDS: HYDROcodone/APAP 10-325MG 1 EACH TAB PO PRN ×2 (07:58→17:52)
[2022-11-20] MEDS: PIPERACILLIN-TAZOBACTAM 3.375 GM in SODIUM CHLORIDE 0.9% 100 ML IVPB SCH ×3 (07:59→23:41)
[2022-11-20] MEDS: INSULIN DETEMIR (LEVEMIR) 100 UNIT/ML SYR SQ SCH ×2 (07:59→21:11)
--- NOTE | 2022-11-20 08:27 | P.PN ---
Subjective Progress Note Date: 11/20/22 Principal diagnosis: Cough, upper respiratory infection This is a 67-year-old female who presented to the emergency department after worsening upper respiratory infection, weakness, and cough. Patient recently in the emergency room and diagnosed with bronchitis on November 15. Presently got worse and presented to the ER again and was admitted. Denies any further shortness of breath or chest pain. She still does report a cough. Infectious disease is consulted and patient is maintained on Zosyn. She is seen this morning sitting up in bed eating breakfast. Objective - Vital Signs Vital signs: Vital Signs Temp 97.3 F L 11/20/22 01:54 Pulse 92 11/20/22 07:37 Resp 17 11/20/22 07:37 BP 127/71 11/20/22 07:37 Pulse Ox 97 11/20/22 07:37 FiO2 21 11/18/22 20:25 Intake & Output 11/19/22 11/20/22 11/20/22 18:59 06:59 18:59 Intake Total 2496 Balance 2496 Intake: Intake, IV Titration 1510 Amount Piperacillin-Tazobactam 3 100 .375 gm In Sodium Chloride 0.9% 100 ml @ 25 mls/hr IVPB Q8HR MAYA Rx# :[id number] Sodium Chloride 0.9% 1, 910 000 ml @ 130 mls/hr IV . Q7H42M STA Rx#:[id number] Vancomycin 1,500 mg In 500 Sodium Chloride 0.9% 500 ml 500 ml @ 167 mls/hr IVPB ONCE ONE Rx#: [id number] Oral 986 Other: # Voids 2 1 # Bowel Movements 0 1 - Constitutional General appearance: Present: cooperative, no acute distress - EENT Eyes: Present: EOMI, PERRLA - Neck Neck: Present: normal ROM. Absent: lymphadenopathy, rigidity - Respiratory Details: crackles, left - Cardiovascular Rhythm: regular Heart sounds: normal: S1, S2 - Gastrointestinal General gastrointestinal: Present: soft. Absent: tenderness - Integumentary Integumentary: Present: normal, normal turgor - Psychiatric Psychiatric: Present: A&O x's 3, appropriate affect, intact judgment & insight - Labs CBC & Chem 7: 11/19/22 06:23 11/19/22 06:23 Labs: Abnormal Lab Results - Last 24 Hours (Table) 11/19/22 11/19/22 11/19/22 Range/Units 06:23 06:23 11:50 WBC 26.75 H (4.50-10.00) X 10*3/uL RBC 3.21 L (4.10-5.20) X 10*6/uL Hgb 9.9 L (12.0-15.0) g/dL Hct 29.1 L (37.2-46.3) % MPV 8.6 L (9.5-12.2) fL Immature Gran # 0.58 H (0.00-0.04) X 10*3/uL Neutrophils # 24.39 H (1.80-7.70) X 10*3/uL Lymphocytes # 0.88 L (0.90-5.00) X 10*3/uL Eosinophils # 0 L (0.04-0.35) X 10*3/uL Basophils # 0.11 H (0.00-0.10) X 10*3/uL Sodium 125 L (135-145) mmol/L Carbon Dioxide 16.3 L (20.0-27.5) mmol/L BUN 39.3 H (9.0-27.0) mg/dL Creatinine 1.6 H (0.6-1.5) mg/dL Est GFR (CKD-EPI)AfAm 38.2 L (60.0-200.0) Est GFR (CKD-EPI)NonAf 33.0 L (60.0-200.0) BUN/Creatinine Ratio 24.56 H (12.00-20.00) Ratio Glucose 449 H (70-110) mg/dL POC Glucose (mg/dL) 443 H (70-110) mg/dL Calcium 7.9 L (8.7-10.3) mg/dL 11/19/22 11/19/22 11/20/22 Range/Units 16:45 20:33 06:14 WBC (4.50-10.00) X 10*3/uL RBC (4.10-5.20) X 10*6/uL Hgb (12.0-15.0) g/dL Hct (37.2-46.3) % MPV (9.5-12.2) fL Immature Gran # (0.00-0.04) X 10*3/uL Neutrophils # (1.80-7.70) X 10*3/uL Lymphocytes # (0.90-5.00) X 10*3/uL Eosinophils # (0.04-0.35) X 10*3/uL Basophils # (0.00-0.10) X 10*3/uL Sodium (135-145) mmol/L Carbon Dioxide (20.0-27.5) mmol/L BUN (9.0-27.0) mg/dL Creatinine (0.6-1.5) mg/dL Est GFR (CKD-EPI)AfAm (60.0-200.0) Est GFR (CKD-EPI)NonAf (60.0-200.0) BUN/Creatinine Ratio (12.00-20.00) Ratio Glucose (70-110) mg/dL POC Glucose (mg/dL) 406 H 270 H 160 H (70-110) mg/dL Calcium (8.7-10.3) mg/dL Microbiology - Last 24 Hours (Table) 11/18/22 19:30 Blood Culture - Preliminary Blood No Growth after 24 hours 11/18/22 19:45 Blood Culture - Preliminary Blood No Growth after 24 hours Assessment and Plan (1) Pneumonia Current Visit: Yes Status: Acute Code(s): J18.9 - PNEUMONIA, UNSPECIFIED ORGANISM SNOMED Code(s): 577381824 (2) Sepsis Current Visit: Yes Status: Acute Code(s): A41.9 - SEPSIS, UNSPECIFIED ORGANISM SNOMED Code(s): 14686067 (3) COPD exacerbation Current Visit: No Status: Acute Code(s): J44.1 - CHRONIC OBSTRUCTIVE PULMONARY DISEASE W (ACUTE) EXACERBATION SNOMED Code(s): 829213385 (4) THIERRY (acute kidney injury) Current Visit: Yes Status: Acute Code(s): N17.9 - ACUTE KIDNEY FAILURE, UNSPECIFIED SNOMED Code(s): 82954546 (5) Dehydration Current Visit: Yes Status: Acute Code(s): E86.0 - DEHYDRATION SNOMED Code(s): 67335740 (6) Hyponatremia Current Visit: No Status: Acute Code(s): E87.1 - HYPO-OSMOLALITY AND HYPONATREMIA SNOMED Code(s): 15268800 Plan: Check CBC and CMP in the morning Continue Zosyn Continue prednisone Patient seen and evaluated by nurse practitioner, physician in agreement with plan
[2022-11-20] MEDS: SYMBICORT 160-4.5 MCG INHALER INHALATION SCH ×2 (09:03→09:09)
[2022-11-20 09:13] LABS: Basophils % (A) 0.3 %; Eosinophils # (A) 0.05 X 10*3/uL (0.04-0.35); Eosinophils % (A) 0.2 %; HCT 30.4 % (37.2-46.3); HGB 10.2 g/dL (12.0-15.0); Immature Grans, Automated 1.5 %; Lymphocytes % (A) 5.4 %; MCH 30.4 pg (27.0-32.0); MCHC 33.6 g/dL (32.0-37.0); MCV 90.7 fL (80.0-97.0); Mean Platelet Volume 8.6 fL (9.5-12.2); Monocytes # (A) 1.26 X 10*3/uL (0.20-1.00); Monocytes % (A) 4.3 %; NRBC Per 100 WBC 0 /100 WBCS (0.0-0.0); Neutrophils # (A) 25.92 X 10*3/uL (1.80-7.70); Neutrophils % (A) 88.3 %; Platelet Count 238 X 10*3/uL (140-440); RBC 3.35 X 10*6/uL (4.10-5.20); RDW 13.5 % (11.5-14.5); WBC 29.36 X 10*3/uL (4.50-10.00)
[2022-11-20 09:19] LABS: C Reactive Protein 15.1 mg/dL (0.00-0.80)
[2022-11-20] MEDS: GABAPENTIN 400 MG CAP PO SCH ×3 (09:20→21:20)
[2022-11-20] MEDS: TOPIRAMATE 25 MG TAB PO SCH ×2 (09:20→21:12)
[2022-11-20 09:21] LABS: African American GFR (CKD) 54.2 (60.0-200.0); Albumin 3.1 g/dL (3.8-4.9); Albumin/Globulin Ratio 1.03 (1.60-3.17); Anion Gap 13.6 mmol/L (10.00-18.00); BUN/Creat Ratio 31.58 Ratio (12.00-20.00); Blood Urea Nitrogen 37.9 mg/dL (9.0-27.0); Calcium 8.7 mg/dL (8.7-10.3); Carbon Dioxide 17.4 mmol/L (20.0-27.5); Non-African American GFR(CKD) 46.7 (60.0-200.0); Potassium 3.4 mmol/L (3.5-5.5); Total Bilirubin 0.2 mg/dL (0.30-1.20); Total Protein 6.1 g/dL (6.2-8.2)
[2022-11-20] MEDS: predniSONE 20 MG TAB PO SCH (09:21)
[2022-11-20] MEDS: LORATADINE 10 MG TAB PO SCH (09:21)
[2022-11-20] MEDS: OXYBUTYNIN 10 MG TAB.ER.24 PO SCH (09:21)
[2022-11-20] MEDS: ASPIRIN 325 MG TAB PO SCH (09:21)
--- NOTE | 2022-11-20 11:32 | P.PN ---
Subjective Progress Note Date: 11/20/22 Principal diagnosis: Pneumonia Patient is a 67-year female with a past medical history of negative for diabetes mellitus hypertension COPD presenting to the ER for evaluation of increasing shortness of breath and cough failing outpatient oral Zithromax therapy patient did have stasis a concerning for left-sided pneumonia. On today's evaluation that is 11/21/2019, the patient denies having any fever or any chills patient is currently breathing comfortably and is currently on room air denies any chest pain continued to have a cough, no worsening no nausea no vomiting and no diarrhea Objective - Vital Signs Vital signs: Vital Signs Temp 97.3 F L 11/20/22 01:54 Pulse 92 11/20/22 07:37 Resp 17 11/20/22 07:37 BP 127/71 11/20/22 07:37 Pulse Ox 97 11/20/22 09:03 FiO2 21 11/18/22 20:25 Intake & Output 11/19/22 11/20/22 11/20/22 18:59 06:59 18:59 Intake Total 2496 Balance 2496 Intake: Intake, IV Titration 1510 Amount Piperacillin-Tazobactam 3 100 .375 gm In Sodium Chloride 0.9% 100 ml @ 25 mls/hr IVPB Q8HR [facility] Rx# :[id number] Sodium Chloride 0.9% 1, 910 000 ml @ 130 mls/hr IV . Q7H42M [facility] Rx#:[id number] Vancomycin 1,500 mg In 500 Sodium Chloride 0.9% 500 ml 500 ml @ 167 mls/hr IVPB ONCE ONE Rx#: [id number] Oral 986 Other: # Voids 2 1 # Bowel Movements 0 1 - Exam GENERAL DESCRIPTION: An elderly female lying in bed in no distress RESPIRATORY SYSTEM: Unlabored breathing , coarse breath sounds at bases HEART: S1 S2 regular rate and rhythm , ABDOMEN: Soft , no tenderness EXTREMITIES: No edema feet - Labs CBC & Chem 7: 11/20/22 03:39 11/20/22 03:39 Labs: Abnormal Lab Results - Last 24 Hours (Table) 11/19/22 11/19/22 11/19/22 Range/Units 11:50 16:45 20:33 WBC (4.50-10.00) X 10*3/uL RBC (4.10-5.20) X 10*6/uL Hgb (12.0-15.0) g/dL Hct (37.2-46.3) % MPV (9.5-12.2) fL Immature Gran # (0.00-0.04) X 10*3/uL Neutrophils # (1.80-7.70) X 10*3/uL Monocytes # (0.20-1.00) X 10*3/uL Sodium (135-145) mmol/L Potassium (3.5-5.5) mmol/L Carbon Dioxide (20.0-27.5) mmol/L BUN (9.0-27.0) mg/dL Est GFR (CKD-EPI)AfAm (60.0-200.0) Est GFR (CKD-EPI)NonAf (60.0-200.0) BUN/Creatinine Ratio (12.00-20.00) Ratio Glucose (70-110) mg/dL POC Glucose (mg/dL) 443 H 406 H 270 H (70-110) mg/dL Total Bilirubin (0.30-1.20) mg/dL AST (13-35) U/L ALT (8-44) U/L C-Reactive Protein (0.00-0.80) mg/dL Total Protein (6.2-8.2) g/dL Albumin (3.8-4.9) g/dL Albumin/Globulin Ratio (1.60-3.17) g/dL Procalcitonin (0.02-0.09) ng/mL 11/20/22 11/20/22 11/20/22 Range/Units 03:39 03:39 03:39 WBC 29.36 H (4.50-10.00) X 10*3/uL RBC 3.35 L (4.10-5.20) X 10*6/uL Hgb 10.2 L (12.0-15.0) g/dL Hct 30.4 L (37.2-46.3) % MPV 8.6 L (9.5-12.2) fL Immature Gran # 0.43 H (0.00-0.04) X 10*3/uL Neutrophils # 25.92 H (1.80-7.70) X 10*3/uL Monocytes # 1.26 H (0.20-1.00) X 10*3/uL Sodium 133 L (135-145) mmol/L Potassium 3.4 L (3.5-5.5) mmol/L Carbon Dioxide 17.4 L (20.0-27.5) mmol/L BUN 37.9 H (9.0-27.0) mg/dL Est GFR (CKD-EPI)AfAm 54.2 L (60.0-200.0) Est GFR (CKD-EPI)NonAf 46.7 L (60.0-200.0) BUN/Creatinine Ratio 31.58 H (12.00-20.00) Ratio Glucose 69 L (70-110) mg/dL POC Glucose (mg/dL) (70-110) mg/dL Total Bilirubin 0.20 L (0.30-1.20) mg/dL AST 280 H (13-35) U/L ALT 172 H (8-44) U/L C-Reactive Protein 15.10 H (0.00-0.80) mg/dL Total Protein 6.1 L (6.2-8.2) g/dL Albumin 3.1 L (3.8-4.9) g/dL Albumin/Globulin Ratio 1.03 L (1.60-3.17) g/dL Procalcitonin 1.05 H (0.02-0.09) ng/mL 11/20/22 Range/Units 06:14 WBC (4.50-10.00) X 10*3/uL RBC (4.10-5.20) X 10*6/uL Hgb (12.0-15.0) g/dL Hct (37.2-46.3) % MPV (9.5-12.2) fL Immature Gran # (0.00-0.04) X 10*3/uL Neutrophils # (1.80-7.70) X 10*3/uL Monocytes # (0.20-1.00) X 10*3/uL Sodium (135-145) mmol/L Potassium (3.5-5.5) mmol/L Carbon Dioxide (20.0-27.5) mmol/L BUN (9.0-27.0) mg/dL Est GFR (CKD-EPI)AfAm (60.0-200.0) Est GFR (CKD-EPI)NonAf (60.0-200.0) BUN/Creatinine Ratio (12.00-20.00) Ratio Glucose (70-110) mg/dL POC Glucose (mg/dL) 160 H (70-110) mg/dL Total Bilirubin (0.30-1.20) mg/dL AST (13-35) U/L ALT (8-44) U/L C-Reactive Protein (0.00-0.80) mg/dL Total Protein (6.2-8.2) g/dL Albumin (3.8-4.9) g/dL Albumin/Globulin Ratio (1.60-3.17) g/dL Procalcitonin (0.02-0.09) ng/mL Microbiology - Last 24 Hours (Table) 11/20/22 04:15 Sputum Culture - Preliminary Sputum 11/18/22 19:30 Blood Culture - Preliminary Blood No Growth after 24 hours 11/18/22 19:45 Blood Culture - Preliminary Blood No Growth after 24 hours Assessment and Plan (1) Pneumonia Current Visit: Yes Status: Acute Code(s): J18.9 - PNEUMONIA, UNSPECIFIED ORGANISM SNOMED Code(s): 625203128 Plan: 1patient presented to hospital with increased shortness of breath cough productive sputum with a left-sided infiltrate concerning for pneumonia in this patient apparently failing outpatient oral Zithromax therapy will need to cover for the community-acquired as well as gram-negative pathogen in this patient who did have a history of COPD and exposure to antibiotics. 2patient with renal insufficiency and high risk of nephrotoxicity from vancomycin. 3sputum cultures currently pending, patient did have elevated CRP and a procalcitonin level. 4patient to continue with the Zosyn , patient also noticed to have elevated liver enzymes and check an ultrasound of the liver and gallbladder area Time with Patient: Less than 30
[2022-11-20 11:33] LABS: Glucose,Whole Blood 225 mg/dL (70-110)
[2022-11-20] MEDS: ALBUTEROL HFA INHALER INHALATION PRN ×2 (11:57→16:07)
--- NOTE | 2022-11-20 15:52 | US ---
EXAMINATION TYPE: US abdomen limited DATE OF EXAM: 11/20/2022 COMPARISON: CT abdomen and pelvis on 08/30/2022. CLINICAL HISTORY: Elevated liver enzymes. Prior cholecystectomy. TECHNIQUE: Multiple sonographic images of the right upper quadrant are obtained. FINDINGS: EXAM MEASUREMENTS: Liver Length: 17.5 cm CBD: 0.5 cm Right Kidney: 11.0 x 4.8 x 5.2 cm [employer] NOTES:Limited due to patient body habitus Pancreas: Not well visualized due to patient body habitus Liver: Limited visualization, no prominent masses or lesions seen Gallbladder: Surgically absent Evidence for sonographic García's sign: The sonographic García's sign was reported as negative. CBD: No dilation. Right Kidney: Limited lower pole due to overlying bowel gas IMPRESSION: 1. Prior cholecystectomy. 2. No evidence of biliary ductal dilation. 3. No evidence of right-sided hydronephrosis.
[2022-11-20] MEDS: FLUoxetine HCL 20 MG CAP PO SCH (16:47)
[2022-11-20] MEDS: CHOLECALCIFEROL 125 MCG (5000 IU) TABLET PO SCH (16:48)
[2022-11-20] MEDS: ATORVASTATIN 40 MG TAB PO SCH (16:48)
[2022-11-20] MEDS: LOSARTAN 50 MG TAB PO SCH (16:48)
[2022-11-20] MEDS: MULTIVITAMINS, THERA 1 EACH TAB PO SCH (16:48)
[2022-11-20 17:03] LABS: Glucose,Whole Blood 113 mg/dL (70-110)
[2022-11-20 20:17] LABS: Glucose,Whole Blood 264 mg/dL (70-110)
[2022-11-20] MEDS: QUEtiapine 400 MG TAB PO SCH (21:12)
[2022-11-20] MEDS: FLUTICASONE 50MCG/SPRAY NASAL 16GM EA NOSTRIL SCH (23:41)
[2022-11-21 06:06] LABS: Glucose,Whole Blood 69 mg/dL (70-110)
[2022-11-21] MEDS: LEVOTHYROXINE 88 MCG TAB PO SCH (06:26)
[2022-11-21 06:27] LABS: Glucose,Whole Blood 81 mg/dL (70-110)
[2022-11-21] MEDS: INSULIN ASPART (NovoLOG) 100 UNIT/ML VIAL SQ SCH ×7 (06:27→22:06)
[2022-11-21] MEDS: TOPIRAMATE 25 MG TAB PO SCH ×2 (08:01→22:07)
[2022-11-21] MEDS: predniSONE 20 MG TAB PO SCH (08:02)
[2022-11-21] MEDS: HYDROcodone/APAP 10-325MG 1 EACH TAB PO PRN ×3 (08:02→22:07)
[2022-11-21] MEDS: INSULIN DETEMIR (LEVEMIR) 100 UNIT/ML SYR SQ SCH ×2 (08:02→22:06)
[2022-11-21] MEDS: ASPIRIN 325 MG TAB PO SCH (08:02)
[2022-11-21] MEDS: OXYBUTYNIN 10 MG TAB.ER.24 PO SCH (08:02)
[2022-11-21] MEDS: GABAPENTIN 400 MG CAP PO SCH ×3 (08:02→22:07)
[2022-11-21] MEDS: LORATADINE 10 MG TAB PO SCH (08:02)
[2022-11-21] MEDS: HEPARIN SODIUM,PORCINE/PF 5,000 UNIT/0.5 ML SYRINGE SQ SCH ×3 (08:03→23:45)
--- NOTE | 2022-11-21 08:23 | P.PN ---
Subjective Progress Note Date: 11/21/22 Principal diagnosis: Cough, upper respiratory infection This is a 67-year-old female who presented to the emergency department after worsening upper respiratory infection, weakness, and cough. Patient recently in the emergency room and diagnosed with bronchitis on November 15. Presently got worse and presented to the ER again and was admitted. Denies any further shortness of breath or chest pain. She still does report a cough. Infectious disease is consulted and patient is maintained on Zosyn. She is seen this morning sitting up in bed eating breakfast. 11/21/22 Patient is seen laying in bed this morning. She is still having significant wheezing on the left. Patient also reports continued weakness. Blood sugar on the lower side this morning, but patient reports she is eating regularly. She is maintained on Zosyn and breathing treatments. Objective - Vital Signs Vital signs: Vital Signs Temp 98.0 F 11/21/22 07:03 Pulse 89 11/21/22 07:03 Resp 18 11/21/22 07:03 BP 119/77 11/21/22 07:03 Pulse Ox 95 11/21/22 07:03 FiO2 21 11/18/22 20:25 Intake & Output 11/20/22 11/21/22 11/21/22 18:59 06:59 18:59 Intake Total 200 Balance 200 Intake: Intake, IV Titration 200 Amount Piperacillin-Tazobactam 3 200 .375 gm In Sodium Chloride 0.9% 100 ml @ 25 mls/hr IVPB Q8HR [facility] Rx# :[id number] Other: # Voids 1 - Constitutional General appearance: Present: cooperative, no acute distress - EENT Eyes: Present: EOMI, PERRLA - Neck Neck: Present: normal ROM. Absent: lymphadenopathy, rigidity - Respiratory Respiratory: left: wheezing - Cardiovascular Rhythm: regular Heart sounds: normal: S1, S2 - Gastrointestinal General gastrointestinal: Present: soft. Absent: tenderness - Integumentary Integumentary: Present: normal, normal turgor - Musculoskeletal Musculoskeletal: Present: generalized weakness - Psychiatric Psychiatric: Present: A&O x's 3, appropriate affect, intact judgment & insight - Labs CBC & Chem 7: 11/20/22 03:39 11/20/22 03:39 Labs: Abnormal Lab Results - Last 24 Hours (Table) 11/20/22 11/20/22 11/20/22 Range/Units 03:39 03:39 03:39 WBC 29.36 H (4.50-10.00) X 10*3/uL RBC 3.35 L (4.10-5.20) X 10*6/uL Hgb 10.2 L (12.0-15.0) g/dL Hct 30.4 L (37.2-46.3) % MPV 8.6 L (9.5-12.2) fL Immature Gran # 0.43 H (0.00-0.04) X 10*3/uL Neutrophils # 25.92 H (1.80-7.70) X 10*3/uL Monocytes # 1.26 H (0.20-1.00) X 10*3/uL Sodium 133 L (135-145) mmol/L Potassium 3.4 L (3.5-5.5) mmol/L Carbon Dioxide 17.4 L (20.0-27.5) mmol/L BUN 37.9 H (9.0-27.0) mg/dL Est GFR (CKD-EPI)AfAm 54.2 L (60.0-200.0) Est GFR (CKD-EPI)NonAf 46.7 L (60.0-200.0) BUN/Creatinine Ratio 31.58 H (12.00-20.00) Ratio Glucose 69 L (70-110) mg/dL POC Glucose (mg/dL) (70-110) mg/dL Total Bilirubin 0.20 L (0.30-1.20) mg/dL AST 280 H (13-35) U/L ALT 172 H (8-44) U/L C-Reactive Protein 15.10 H (0.00-0.80) mg/dL Total Protein 6.1 L (6.2-8.2) g/dL Albumin 3.1 L (3.8-4.9) g/dL Albumin/Globulin Ratio 1.03 L (1.60-3.17) g/dL Procalcitonin 1.05 H (0.02-0.09) ng/mL 11/20/22 11/20/22 11/20/22 Range/Units 11:32 17:02 20:14 WBC (4.50-10.00) X 10*3/uL RBC (4.10-5.20) X 10*6/uL Hgb (12.0-15.0) g/dL Hct (37.2-46.3) % MPV (9.5-12.2) fL Immature Gran # (0.00-0.04) X 10*3/uL Neutrophils # (1.80-7.70) X 10*3/uL Monocytes # (0.20-1.00) X 10*3/uL Sodium (135-145) mmol/L Potassium (3.5-5.5) mmol/L Carbon Dioxide (20.0-27.5) mmol/L BUN (9.0-27.0) mg/dL Est GFR (CKD-EPI)AfAm (60.0-200.0) Est GFR (CKD-EPI)NonAf (60.0-200.0) BUN/Creatinine Ratio (12.00-20.00) Ratio Glucose (70-110) mg/dL POC Glucose (mg/dL) 225 H 113 H 264 H (70-110) mg/dL Total Bilirubin (0.30-1.20) mg/dL AST (13-35) U/L ALT (8-44) U/L C-Reactive Protein (0.00-0.80) mg/dL Total Protein (6.2-8.2) g/dL Albumin (3.8-4.9) g/dL Albumin/Globulin Ratio (1.60-3.17) g/dL Procalcitonin (0.02-0.09) ng/mL 11/21/22 Range/Units 06:04 WBC (4.50-10.00) X 10*3/uL RBC (4.10-5.20) X 10*6/uL Hgb (12.0-15.0) g/dL Hct (37.2-46.3) % MPV (9.5-12.2) fL Immature Gran # (0.00-0.04) X 10*3/uL Neutrophils # (1.80-7.70) X 10*3/uL Monocytes # (0.20-1.00) X 10*3/uL Sodium (135-145) mmol/L Potassium (3.5-5.5) mmol/L Carbon Dioxide (20.0-27.5) mmol/L BUN (9.0-27.0) mg/dL Est GFR (CKD-EPI)AfAm (60.0-200.0) Est GFR (CKD-EPI)NonAf (60.0-200.0) BUN/Creatinine Ratio (12.00-20.00) Ratio Glucose (70-110) mg/dL POC Glucose (mg/dL) 69 L (70-110) mg/dL Total Bilirubin (0.30-1.20) mg/dL AST (13-35) U/L ALT (8-44) U/L C-Reactive Protein (0.00-0.80) mg/dL Total Protein (6.2-8.2) g/dL Albumin (3.8-4.9) g/dL Albumin/Globulin Ratio (1.60-3.17) g/dL Procalcitonin (0.02-0.09) ng/mL Microbiology - Last 24 Hours (Table) 11/18/22 19:45 Blood Culture - Preliminary Blood No Growth after 48 hours 11/18/22 19:30 Blood Culture - Preliminary Blood No Growth after 48 hours 11/20/22 04:15 Sputum Culture - Preliminary Sputum Assessment and Plan (1) Pneumonia Current Visit: Yes Status: Acute Code(s): J18.9 - PNEUMONIA, UNSPECIFIED ORGANISM SNOMED Code(s): 845767948 (2) Sepsis Current Visit: Yes Status: Acute Code(s): A41.9 - SEPSIS, UNSPECIFIED O RGANISM SNOMED Code(s): 37610092 (3) COPD exacerbation Current Visit: No Status: Acute Code(s): J44.1 - CHRONIC OBSTRUCTIVE PULMONARY DISEASE W (ACUTE) EXACERBATION SNOMED Code(s): 626639313 (4) THIERRY (acute kidney injury) Current Visit: Yes Status: Acute Code(s): N17.9 - ACUTE KIDNEY FAILURE, UNSPECIFIED SNOMED Code(s): 04043846 (5) Dehydration Current Visit: Yes Status: Acute Code(s): E86.0 - DEHYDRATION SNOMED Code(s): 49640994 (6) Hyponatremia Current Visit: No Status: Acute Code(s): E87.1 - HYPO-OSMOLALITY AND HYPONATREMIA SNOMED Code(s): 18666900 Plan: Check CBC and CMP in the morning Will order repeat chest x-ray. Patient seen and evaluated by nurse practitioner, physician in agreement with plan
[2022-11-21] MEDS: PIPERACILLIN-TAZOBACTAM 3.375 GM in SODIUM CHLORIDE 0.9% 100 ML IVPB SCH ×3 (08:57→23:45)
--- NOTE | 2022-11-21 08:59 | XR ---
EXAMINATION TYPE: XR chest 2V DATE OF EXAM: 11/21/2022 COMPARISON: 11/18/2022 TECHNIQUE: PA and lateral views submitted. HISTORY: Cough FINDINGS: There is left lower lobe infiltrate. Chronic changes involving the left shoulder. No interstitial ugo ma or pneumothorax. Hyperinflation suggests COPD. Hypertrophic and degenerative changes of the spine. IMPRESSION: 1. A left lower lobe infiltrate is stable relative to the prior exam.
[2022-11-21 09:21] LABS: HCT 28.8 % (37.2-46.3); HGB 9.8 g/dL (12.0-15.0); MCH 30.7 pg (27.0-32.0); MCV 90.3 fL (80.0-97.0); Mean Platelet Volume 8.7 fL (9.5-12.2); NRBC Per 100 WBC 0 /100 WBCS (0.0-0.0); Platelet Count 242 X 10*3/uL (140-440); RBC 3.19 X 10*6/uL (4.10-5.20); RDW 13.9 % (11.5-14.5); WBC 28.94 X 10*3/uL (4.50-10.00)
[2022-11-21] MEDS: SYMBICORT 160-4.5 MCG INHALER INHALATION SCH ×2 (09:21→20:05)
[2022-11-21] MEDS: ALBUTEROL HFA INHALER INHALATION PRN ×4 (09:21→20:06)
[2022-11-21 10:02] LABS: ALT 286 U/L (8-44); AST 264 U/L (13-35); African American GFR (CKD) 67.5 (60.0-200.0); Albumin 3.3 g/dL (3.8-4.9); Albumin/Globulin Ratio 1.18 (1.60-3.17); Alkaline Phosphatase 123 U/L (41-126); Blood Urea Nitrogen 28.4 mg/dL (9.0-27.0); Calcium 8.8 mg/dL (8.7-10.3); Carbon Dioxide 16.4 mmol/L (20.0-27.5); Chloride 105 mmol/L (96-109); Globulin 2.8 g/dL (1.6-3.3); Glucose 94 mg/dL (70-110); Non-African American GFR(CKD) 58.2 (60.0-200.0); Potassium 4.1 mmol/L (3.5-5.5); Sodium 135 mmol/L (135-145); Total Bilirubin <0.15 mg/dL (0.30-1.20); Total Protein 6.1 g/dL (6.2-8.2)
[2022-11-21 11:31] LABS: Glucose,Whole Blood 101 mg/dL (70-110)
--- NOTE | 2022-11-21 12:09 | P.PN ---
Subjective Progress Note Date: 11/21/22 Principal diagnosis: Pneumonia Patient is a 67-year female with a past medical history of negative for diabetes mellitus hypertension COPD presenting to the ER for evaluation of increasing shortness of breath and cough failing outpatient oral Zithromax therapy patient did have stasis a concerning for left-sided pneumonia. On today's evaluation that is 11/22/2019, the patient continues to be febrile, patient is breathing comfortably on room air, the patient denies any chest pain , the patient cough is decreased intensity no nausea no vomiting and no diarrhea Objective - Vital Signs Vital signs: Vital Signs Temp 98.0 F 11/21/22 07:03 Pulse 89 11/21/22 07:03 Resp 18 11/21/22 07:03 BP 119/77 11/21/22 07:03 Pulse Ox 94 L 11/21/22 09:22 FiO2 21 11/21/22 09:22 Intake & Output 11/20/22 11/21/22 11/21/22 18:59 06:59 18:59 Intake Total 200 Balance 200 Intake: Intake, IV Titration 200 Amount Piperacillin-Tazobactam 3 200 .375 gm In Sodium Chloride 0.9% 100 ml @ 25 mls/hr IVPB Q8HR [facility] Rx# :[id number] Other: # Voids 1 - Exam GENERAL DESCRIPTION: An elderly female lying in bed in no distress RESPIRATORY SYSTEM: Unlabored breathing , coarse breath sounds at bases HEART: S1 S2 regular rate and rhythm , ABDOMEN: Soft , no tenderness EXTREMITIES: No edema feet - Labs CBC & Chem 7: 11/21/22 03:52 11/21/22 03:52 Labs: Abnormal Lab Results - Last 24 Hours (Table) 11/20/22 11/20/22 11/21/22 Range/Units 17:02 20:14 03:52 WBC (4.50-10.00) X 10*3/uL RBC (4.10-5.20) X 10*6/uL Hgb (12.0-15.0) g/dL Hct (37.2-46.3) % MPV (9.5-12.2) fL Carbon Dioxide 16.4 L (20.0-27.5) mmol/L BUN 28.4 H (9.0-27.0) mg/dL Est GFR (CKD-EPI)NonAf 58.2 L (60.0-200.0) BUN/Creatinine Ratio 28.40 H (12.00-20.00) Ratio POC Glucose (mg/dL) 113 H 264 H (70-110) mg/dL Total Bilirubin <0.15 L (0.30-1.20) mg/dL AST 264 H (13-35) U/L ALT 286 H (8-44) U/L Total Protein 6.1 L (6.2-8.2) g/dL Albumin 3.3 L (3.8-4.9) g/dL Albumin/Globulin Ratio 1.18 L (1.60-3.17) g/dL 11/21/22 11/21/22 Range/Units 03:52 06:04 WBC 28.94 H (4.50-10.00) X 10*3/uL RBC 3.19 L (4.10-5.20) X 10*6/uL Hgb 9.8 L (12.0-15.0) g/dL Hct 28.8 L (37.2-46.3) % MPV 8.7 L (9.5-12.2) fL Carbon Dioxide (20.0-27.5) mmol/L BUN (9.0-27.0) mg/dL Est GFR (CKD-EPI)NonAf (60.0-200.0) BUN/Creatinine Ratio (12.00-20.00) Ratio POC Glucose (mg/dL) 69 L (70-110) mg/dL Total Bilirubin (0.30-1.20) mg/dL AST (13-35) U/L ALT (8-44) U/L Total Protein (6.2-8.2) g/dL Albumin (3.8-4.9) g/dL Albumin/Globulin Ratio (1.60-3.17) g/dL Microbiology - Last 24 Hours (Table) 11/20/22 04:15 Gram Stain - Preliminary Sputum Sputum Culture - Preliminary 11/18/22 19:45 Blood Culture - Preliminary Blood No Growth after 48 hours 11/18/22 19:30 Blood Culture - Preliminary Blood No Growth after 48 hours Assessment and Plan (1) Pneumonia Current Visit: Yes Status: Acute Code(s): J18.9 - PNEUMONIA, UNSPECIFIED ORGANISM SNOMED Code(s): 930248282 Plan: 1patient presented to hospital with increased shortness of breath cough p roductive sputum with a left-sided infiltrate concerning for pneumonia in this patient apparently failing outpatient oral Zithromax therapy will need to cover for the community-acquired as well as gram-negative pathogen in this patient who did have a history of COPD and exposure to antibiotics. 2patient with renal insufficiency and high risk of nephrotoxicity from vancomycin. 3sputum cultures currently pending, patient did have elevated CRP and a procalcitonin level. 4-ultrasound abdomen did not show any evidence of cbd dilatation or right-sided hydronephrosis 5patient seemed to have some clinical improvement and will to continue with the Zosyn , leukocytosis more likely steroid related Time with Patient: Less than 30
[2022-11-21] MEDS: methylPREDNISolone SOD SUCCI 125 MG/2 ML VIAL IV SCH ×3 (13:40→23:45)
[2022-11-21] MEDS: CHOLECALCIFEROL 125 MCG (5000 IU) TABLET PO SCH (15:27)
[2022-11-21] MEDS: ATORVASTATIN 40 MG TAB PO SCH (15:27)
[2022-11-21] MEDS: FLUoxetine HCL 20 MG CAP PO SCH (15:27)
[2022-11-21] MEDS: MULTIVITAMINS, THERA 1 EACH TAB PO SCH (15:27)
[2022-11-21] MEDS: LOSARTAN 50 MG TAB PO SCH (15:27)
[2022-11-21 16:51] LABS: Glucose,Whole Blood 300 mg/dL (70-110)
[2022-11-21 20:33] LABS: Glucose,Whole Blood 269 mg/dL (70-110)
[2022-11-21] MEDS: FLUTICASONE 50MCG/SPRAY NASAL 16GM EA NOSTRIL SCH (22:06)
[2022-11-21] MEDS: QUEtiapine 400 MG TAB PO SCH (22:07)
[2022-11-22] MEDS: HYDROcodone/APAP 10-325MG 1 EACH TAB PO PRN ×3 (04:57→18:06)
[2022-11-22 06:20] LABS: Glucose,Whole Blood 152 mg/dL (70-110)
[2022-11-22] MEDS: methylPREDNISolone SOD SUCCI 125 MG/2 ML VIAL IV SCH ×3 (06:50→19:02)
[2022-11-22] MEDS: INSULIN DETEMIR (LEVEMIR) 100 UNIT/ML SYR SQ SCH ×2 (06:51→21:20)
[2022-11-22] MEDS: INSULIN ASPART (NovoLOG) 100 UNIT/ML VIAL SQ SCH ×7 (06:51→21:19)
[2022-11-22] MEDS: LEVOTHYROXINE 88 MCG TAB PO SCH (06:52)
--- NOTE | 2022-11-22 08:40 | P.PN ---
Subjective Progress Note Date: 11/22/22 Principal diagnosis: This continue present patient with acute kidney injury with sepsis and pneumonia. Staphylococcus aureus with continue Zosyn treatment. Appreciate ID input. Patient is clinically improved after starting Solu-Medrol. No voiding difficulties. No fever or chills stated. She states she slept better. Objective - Vital Signs Vital signs: Vital Signs Temp 98.1 F 11/22/22 02:00 Pulse 84 11/22/22 02:00 Resp 18 11/22/22 02:00 BP 182/83 11/22/22 02:00 Pulse Ox 97 11/22/22 02:00 FiO2 21 11/21/22 09:22 Intake & Output 11/21/22 11/22/22 11/22/22 18:59 06:59 18:59 Intake Total 1080 Balance 1080 Intake: Oral 1080 Other: # Voids 3 2 - Constitutional General appearance: Present: average body habitus - EENT Eyes: Absent: abnormal pupil - Neck Neck: Absent: lymphadenopathy - Respiratory Respiratory: right: rales, bilateral: diminished - Cardiovascular Rhythm: regular Heart sounds: normal: S1, S2 Abnormal Heart Sounds: Absent: S3 Gallop - Gastrointestinal General gastrointestinal: Present: soft. Absent: tenderness - Labs CBC & Chem 7: 11/21/22 03:52 11/21/22 03:52 Labs: Abnormal Lab Results - Last 24 Hours (Table) 11/21/22 11/21/22 11/21/22 Range/Units 03:52 03:52 16:49 WBC 28.94 H (4.50-10.00) X 10*3/uL RBC 3.19 L (4.10-5.20) X 10*6/uL Hgb 9.8 L (12.0-15.0) g/dL Hct 28.8 L (37.2-46.3) % MPV 8.7 L (9.5-12.2) fL Carbon Dioxide 16.4 L (20.0-27.5) mmol/L BUN 28.4 H (9.0-27.0) mg/dL Est GFR (CKD-EPI)NonAf 58.2 L (60.0-200.0) BUN/Creatinine Ratio 28.40 H (12.00-20.00) Ratio POC Glucose (mg/dL) 300 H (70-110) mg/dL Total Bilirubin <0.15 L (0.30-1.20) mg/dL AST 264 H (13-35) U/L ALT 286 H (8-44) U/L Total Protein 6.1 L (6.2-8.2) g/dL Albumin 3.3 L (3.8-4.9) g/dL Albumin/Globulin Ratio 1.18 L (1.60-3.17) g/dL 11/21/22 11/22/22 Range/Units 20:32 06:19 WBC (4.50-10.00) X 10*3/uL RBC (4.10-5.20) X 10*6/uL Hgb (12.0-15.0) g/dL Hct (37.2-46.3) % MPV (9.5-12.2) fL Carbon Dioxide (20.0-27.5) mmol/L BUN (9.0-27.0) mg/dL Est GFR (CKD-EPI)NonAf (60.0-200.0) BUN/Creatinine Ratio (12.00-20.00) Ratio POC Glucose (mg/dL) 269 H 152 H (70-110) mg/dL Total Bilirubin (0.30-1.20) mg/dL AST (13-35) U/L ALT (8-44) U/L Total Protein (6.2-8.2) g/dL Albumin (3.8-4.9) g/dL Albumin/Globulin Ratio (1.60-3.17) g/dL Microbiology - Last 24 Hours (Table) 11/18/22 19:45 Blood Culture - Preliminary Blood No Growth after 72 hours 11/18/22 19:30 Blood Culture - Preliminary Blood No Growth after 72 hours 11/20/22 04:15 Gram Stain - Preliminary Sputum Sputum Culture - Preliminary Presumptive Staph aureus Assessment and Plan (1) THIERRY (acute kidney injury) Current Visit: Yes Status: Acute Code(s): N17.9 - ACUTE KIDNEY FAILURE, UNSPECIFIED SNOMED Code(s): 72482693 (2) COPD (chronic obstructive pulmonary disease) Current Visit: Yes Status: Acute Code(s): J44.9 - CHRONIC OBSTRUCTIVE PULMONARY DISEASE, UNSPECIFIED SNOMED Code(s): 41835414 (3) Pneumonia Current Visit: Yes Status: Acute Code(s): J18.9 - PNEUMONIA, UNSPECIFIED ORGANISM SNOMED Code(s): 443817339 (4) Sepsis Current Visit: Yes Status: Acute Code(s): A41.9 - SEPSIS, UNSPECIFIED ORGANISM SNOMED Code(s): 15330140 Plan: Continue current regimen of treatment. Check CBC in the a.m. I do suspect leukocytosis is related to chronic steroid use as well. See orders otherwise. Anticipate discharge in next 24-48 hours.
[2022-11-22 08:49] LABS: HCT 30.3 % (37.2-46.3); HGB 10.2 g/dL (12.0-15.0); MCH 30.4 pg (27.0-32.0); MCHC 33.7 g/dL (32.0-37.0); MCV 90.4 fL (80.0-97.0); Mean Platelet Volume 8.6 fL (9.5-12.2); NRBC Per 100 WBC 0 /100 WBCS (0.0-0.0); Platelet Count 255 X 10*3/uL (140-440); RBC 3.35 X 10*6/uL (4.10-5.20); WBC 22.68 X 10*3/uL (4.50-10.00)
[2022-11-22] MEDS: ALBUTEROL HFA INHALER INHALATION PRN ×4 (08:50→20:58)
[2022-11-22] MEDS: SYMBICORT 160-4.5 MCG INHALER INHALATION SCH ×2 (08:51→20:58)
[2022-11-22 08:57] LABS: African American GFR (CKD) 76.7 (60.0-200.0); Albumin 3.4 g/dL (3.8-4.9); Albumin/Globulin Ratio 1.1 (1.60-3.17); Anion Gap 16.3 mmol/L (10.00-18.00); BUN/Creat Ratio 22.56 Ratio (12.00-20.00); Blood Urea Nitrogen 20.3 mg/dL (9.0-27.0); Calcium 9.2 mg/dL (8.7-10.3); Carbon Dioxide 17.7 mmol/L (20.0-27.5); Globulin 3.1 g/dL (1.6-3.3); Non-African American GFR(CKD) 66.2 (60.0-200.0); Potassium 4.3 mmol/L (3.5-5.5); Total Bilirubin 0.3 mg/dL (0.30-1.20); Total Protein 6.5 g/dL (6.2-8.2)
[2022-11-22] MEDS: LORATADINE 10 MG TAB PO SCH (09:03)
[2022-11-22] MEDS: OXYBUTYNIN 10 MG TAB.ER.24 PO SCH (09:03)
[2022-11-22] MEDS: HEPARIN SODIUM,PORCINE/PF 5,000 UNIT/0.5 ML SYRINGE SQ SCH ×2 (09:03→16:20)
[2022-11-22] MEDS: ASPIRIN 325 MG TAB PO SCH (09:03)
[2022-11-22] MEDS: GABAPENTIN 400 MG CAP PO SCH ×3 (09:03→21:19)
[2022-11-22] MEDS: TOPIRAMATE 25 MG TAB PO SCH ×2 (09:03→21:21)
[2022-11-22] MEDS: PIPERACILLIN-TAZOBACTAM 3.375 GM in SODIUM CHLORIDE 0.9% 100 ML IVPB SCH (09:04)
[2022-11-22] MEDS ORDERED: VANCOMYCIN IV PER PHARMACY 1 EACH MISC MISCELLANE PRN (10:21)
[2022-11-22] MEDS ORDERED: VANCOMYCIN 1,500 MG in SODIUM CHLORIDE 0.9% 500 ML 500 ML IVPB SCH (11:00)
[2022-11-22 11:03] LABS: Glucose,Whole Blood 253 mg/dL (70-110)
[2022-11-22 16:05] LABS: Glucose,Whole Blood 226 mg/dL (70-110)
[2022-11-22] MEDS: FLUoxetine HCL 20 MG CAP PO SCH (16:19)
[2022-11-22] MEDS: ATORVASTATIN 40 MG TAB PO SCH (16:19)
[2022-11-22] MEDS: CHOLECALCIFEROL 125 MCG (5000 IU) TABLET PO SCH (16:19)
[2022-11-22] MEDS: MULTIVITAMINS, THERA 1 EACH TAB PO SCH (16:20)
[2022-11-22] MEDS: LOSARTAN 50 MG TAB PO SCH (16:20)
[2022-11-22] MEDS: amLODIPine 5 MG TAB PO SCH (19:02)
[2022-11-22 20:13] LABS: Glucose,Whole Blood 283 mg/dL (70-110)
[2022-11-22] MEDS: QUEtiapine 400 MG TAB PO SCH (21:20)
[2022-11-22] MEDS: FLUTICASONE 50MCG/SPRAY NASAL 16GM EA NOSTRIL SCH (21:21)
--- NOTE | 2022-11-22 21:50 | P.PN ---
Subjective Progress Note Date: 11/22/22 Principal diagnosis: Pneumonia Patient is a 67-year female with a past medical history of negative for diabetes mellitus hypertension COPD presenting to the ER for evaluation of increasing shortness of breath and cough failing outpatient oral Zithromax therapy patient did have stasis a concerning for left-sided pneumonia. On today's evaluation that is 11/23/2019, the patient remains to be febrile, patient is breathing comfortably on room air, the patient denies any chest pain , the patient cough has decreased intensity and not bringing up any sputum, no nausea no vomiting and no diarrhea Objective - Vital Signs Vital signs: Vital Signs Temp 98.4 F 11/22/22 08:00 Pulse 96 11/22/22 08:00 Resp 18 11/22/22 08:00 BP 169/80 11/22/22 08:00 Pulse Ox 98 11/22/22 08:51 FiO2 21 11/22/22 08:51 Intake & Output 11/21/22 11/22/22 11/22/22 18:59 06:59 18:59 Intake Total 1080 Balance 1080 Intake: Oral 1080 Other: # Voids 3 2 - Exam GENERAL DESCRIPTION: An elderly female lying in bed in no distress RESPIRATORY SYSTEM: Unlabored breathing , coarse breath sounds at bases HEART: S1 S2 regular rate and rhythm , ABDOMEN: Soft , no tenderness EXTREMITIES: No edema feet - Labs CBC & Chem 7: 11/22/22 05:38 11/22/22 05:38 Labs: Abnormal Lab Results - Last 24 Hours (Table) 11/21/22 11/21/22 11/22/22 Range/Units 16:49 20:32 05:38 WBC 22.68 H (4.50-10.00) X 10*3/uL RBC 3.35 L (4.10-5.20) X 10*6/uL Hgb 10.2 L (12.0-15.0) g/dL Hct 30.3 L (37.2-46.3) % MPV 8.6 L (9.5-12.2) fL Carbon Dioxide (20.0-27.5) mmol/L BUN/Creatinine Ratio (12.00-20.00) Ratio Glucose (70-110) mg/dL POC Glucose (mg/dL) 300 H 269 H (70-110) mg/dL AST (13-35) U/L ALT (8-44) U/L Alkaline Phosphatase (41-126) U/L Albumin (3.8-4.9) g/dL Albumin/Globulin Ratio (1.60-3.17) g/dL 11/22/22 11/22/22 Range/Units 05:38 06:19 WBC (4.50-10.00) X 10*3/uL RBC (4.10-5.20) X 10*6/uL Hgb (12.0-15.0) g/dL Hct (37.2-46.3) % MPV (9.5-12.2) fL Carbon Dioxide 17.7 L (20.0-27.5) mmol/L BUN/Creatinine Ratio 22.56 H (12.00-20.00) Ratio Glucose 142 H (70-110) mg/dL POC Glucose (mg/dL) 152 H (70-110) mg/dL AST 122 H (13-35) U/L ALT 256 H (8-44) U/L Alkaline Phosphatase 131 H (41-126) U/L Albumin 3.4 L (3.8-4.9) g/dL Albumin/Globulin Ratio 1.10 L (1.60-3.17) g/dL Microbiology - Last 24 Hours (Table) 11/18/22 19:45 Blood Culture - Preliminary Blood No Growth after 72 hours 11/18/22 19:30 Blood Culture - Preliminary Blood No Growth after 72 hours 11/20/22 04:15 Gram Stain - Preliminary Sputum Sputum Culture - Preliminary Presumptive Staph aureus Assessment and Plan (1) Pneumonia Current Visit: Yes Status: Acute Code(s): J18.9 - PNEUMONIA, UNSPECIFIED ORGANISM SNOMED Code(s): 104272770 Plan: 1patient presented to hospital with increased shortness of breath cough productive sputum with a left-sided infiltrate concerning for pneumonia in this patient apparently failing outpatient oral Zithromax therapy will need to cover for the community-acquired as well as gram-negative pathogen in this patient who did have a history of COPD and exposure to antibiotics. 2patient with renal insufficiency and high risk of nephrotoxicity from vancomycin. 3sputum cultures currently pending, patient did have elevated CRP and a procalcitonin level. 4-ultrasound abdomen did not show any evidence of cbd dilatation or right-sided hydronephrosis 5patient seemed to have some clinical improvement , the patient's sputum did grew staph aureus antibiotic was initially adjusted to vancomycin subsequently switched to cefazolin once sensitivities were available Time with Patient: Less than 30
[2022-11-23] MEDS: methylPREDNISolone SOD SUCCI 125 MG/2 ML VIAL IV SCH ×3 (00:39→12:00)
[2022-11-23] MEDS: HEPARIN SODIUM,PORCINE/PF 5,000 UNIT/0.5 ML SYRINGE SQ SCH ×2 (00:44→07:46)
[2022-11-23] MEDS: HYDROcodone/APAP 10-325MG 1 EACH TAB PO PRN ×2 (01:19→07:52)
[2022-11-23 05:44] LABS: Glucose,Whole Blood 285 mg/dL (70-110)
[2022-11-23] MEDS: INSULIN DETEMIR (LEVEMIR) 100 UNIT/ML SYR SQ SCH (06:15)
[2022-11-23] MEDS: INSULIN ASPART (NovoLOG) 100 UNIT/ML VIAL SQ SCH ×4 (06:15→12:27)
[2022-11-23] MEDS: LEVOTHYROXINE 88 MCG TAB PO SCH (06:15)
[2022-11-23 07:44] VITALS: BP 181/91; PULSE 92; RESP 18; TEMP 99
[2022-11-23] MEDS: OXYBUTYNIN 10 MG TAB.ER.24 PO SCH (07:45)
[2022-11-23] MEDS: LORATADINE 10 MG TAB PO SCH (07:45)
[2022-11-23] MEDS: TOPIRAMATE 25 MG TAB PO SCH (07:46)
[2022-11-23] MEDS: amLODIPine 5 MG TAB PO SCH (07:46)
[2022-11-23] MEDS: GABAPENTIN 400 MG CAP PO SCH (07:46)
[2022-11-23] MEDS: ASPIRIN 325 MG TAB PO SCH (07:46)
[2022-11-23] MEDS: ALBUTEROL HFA INHALER INHALATION PRN ×2 (08:19→12:09)
[2022-11-23] MEDS: SYMBICORT 160-4.5 MCG INHALER INHALATION SCH (08:19)
--- NOTE | 2022-11-23 09:00 | P.DS ---
Providers Date of admission: 11/18/22 20:05 Expected date of discharge: 11/23/22 Attending physician: Yomi Kennedy Consults: 11/18/22 20:03 Consult Physician Routine Consulting Provider: Juan Vaughn Consult Reason/Comments: pneumonia, sepsis Do you want consulting provider notified?: Yes, Notify in am Primary care physician: Yomi Kennedy - Discharge Diagnosis(es) (1) Pneumonia Current Visit: Yes Status: Acute (2) Sepsis Current Visit: Yes Status: Acute (3) COPD exacerbation Current Visit: No Status: Acute (4) THIERRY (acute kidney injury) Current Visit: Yes Status: Acute (5) Dehydration Current Visit: Yes Status: Acute (6) Hyponatremia Current Visit: No Status: Acute Hospital Course: This is a 67-year-old female who was admitted for shortness of breath and sepsis. Patient started on IV steroids and zosyn. Her breathing has improved and she is feeling well today. Elevated white count likely due to steroids. Will send her home on a short prednisone taper and replace Zosyn with Augmentin. Norvasc added for blood pressure control. Check CBC and CMP in the office in one week. Patient Condition at Discharge: Serious Plan - Discharge Summary Discharge Rx Participant: Yes New Discharge Prescriptions: New Amoxic-Pot Clav 875-125Mg [Augmentin 875-125] 1 tab PO Q12HR 10 Days #20 tab amLODIPine [Norvasc] 5 mg PO DAILY 30 Days #30 tab predniSONE 10 mg PO DAILY 6 Days #14 tab Continue Gabapentin 800 mg PO TID Insulin Glargine,Hum.rec.anlog [Lantus Solostar Pen] 55 unit SQ BID metFORMIN HCL [Glucophage] 1,000 mg PO BID Topiramate 50 mg PO BID Oxybutynin Chloride [Oxybutynin Chloride ER] 10 mg PO DAILY Losartan [Cozaar] 50 mg PO DAILY@1600 Cyclobenzaprine [Flexeril] 10 mg PO BID PRN PRN Reason: Muscle Spasm FLUoxetine HCL [PROzac] 40 mg PO DAILY@1600 Fluticasone Nasal Fox [Flonase Nasal Fox] 1 - 2 spr EA NOSTRIL HS Albuterol Inhaler [Ventolin Hfa Inhaler] 2 puff INHALATION RT-QID PRN PRN Reason: Shortness Of Breath Cholecalciferol (Vitamin D3) [Vitamin D3 (125 MCG = 5,000 IU)] 125 mcg PO DAILY@1600 Fluticasone Propion/Salmeterol [Advair 500-50 Diskus] 1 puff INHALATION RT- BID Multivitamins, Thera [Multivitamin (formulary)] 1 tab PO DAILY@1600 Lactulose [Cephulac] 30 gm PO BID PRN 7 Days #14 ml PRN Reason: Constipation Ibuprofen [Motrin] 600 mg PO TID PRN PRN Reason: Pain Loratadine 10 mg PO DAILY HYDROcodone/APAP 10-325MG [[place] 10-325] 1 tab PO Q6H PRN PRN Reason: Pain Levothyroxine Sodium 88 mcg PO DAILY QUEtiapine [SEROquel] 400 mg PO HS Atorvastatin [Lipitor] 40 mg PO DAILY@1600 Triamcinolone 0.1% Cream [Kenalog 0.1% Cream] 1 applic TOPICAL BID PRN PRN Reason: Rash Vitamin E (Dl,Tocopheryl Acet) [Vitamin E (400 Iu = 180 mg)] 400 unit PO DAILY@1600 Aspirin 325 mg PO DAILY #30 tab Discontinued Azithromycin [Zithromax Z Pack] See Taper PO DIRECTED Discharge Medication List Gabapentin 800 mg PO TID 08/17/20 [History] Insulin Glargine,Hum.rec.anlog [Lantus Solostar Pen] 55 unit SQ BID 08/17/20 [History] Losartan [Cozaar] 50 mg PO DAILY@1600 08/17/20 [History] Oxybutynin Chloride [Oxybutynin Chloride ER] 10 mg PO DAILY 08/17/20 [History] Topiramate 50 mg PO BID 08/17/20 [History] metFORMIN HCL [Glucophage] 1,000 mg PO BID 08/17/20 [History] Cyclobenzaprine [Flexeril] 10 mg PO BID PRN 09/17/21 [History] FLUoxetine HCL [PROzac] 40 mg PO DAILY@1600 09/17/21 [History] Fluticasone Nasal Fox [Flonase Nasal Fox] 1 - 2 spr EA NOSTRIL HS 09/17/21 [History] Albuterol Inhaler [Ventolin Hfa Inhaler] 2 puff INHALATION RT-QID PRN 12/14/21 [History] HYDROcodone/APAP 10-325MG [[place] 10-325] 1 tab PO Q6H PRN 12/14/21 [History] Levothyroxine Sodium 88 mcg PO DAILY 12/14/21 [History] QUEtiapine [SEROquel] 400 mg PO HS 12/14/21 [History] Atorvastatin [Lipitor] 40 mg PO DAILY@159906/16/22 [History] Cholecalciferol (Vitamin D3) [Vitamin D3 (125 MCG = 5,000 IU)] 125 mcg PO DAILY@159906/16/22 [History] Fluticasone Propion/Salmeterol [Advair 500-50 Diskus] 1 puff INHALATION RT-BID 06/16/22 [History] Multivitamins, Thera [Multivitamin (formulary)] 1 tab PO DAILY@159906/16/22 [History] Triamcinolone 0.1% Cream [Kenalog 0.1% Cream] 1 applic TOPICAL BID PRN 06/16/22 [History] Vitamin E (Dl,Tocopheryl Acet) [Vitamin E (400 Iu = 180 mg)] 400 unit PO DAILY@159906/16/22 [History] Aspirin 325 mg PO DAILY #30 tab 06/18/22 [Rx] Lactulose [Cephulac] 30 gm PO BID PRN 7 Days #14 ml 09/04/22 [Rx] Ibuprofen [Motrin] 600 mg PO TID PRN 11/18/22 [History] Loratadine 10 mg PO DAILY 11/18/22 [History] Amoxic-Pot Clav 875-125Mg [Augmentin 875-125] 1 tab PO Q12HR 10 Days #20 tab 11/23/22 [Rx] amLODIPine [Norvasc] 5 mg PO DAILY 30 Days #30 tab 11/23/22 [Rx] predniSONE 10 mg PO DAILY 6 Days #14 tab 11/23/22 [Rx] Follow up Appointment(s)/Referral(s): Yomi Kennedy MD [Primary Care Provider] - 3 Days Discharge Disposition: HOME SELF-CARE Plan of Treatment: Check CBC and CMP in 1 week
[2022-11-23 09:06] LABS: HCT 32.7 % (37.2-46.3); HGB 10.9 g/dL (12.0-15.0); MCH 30.2 pg (27.0-32.0); MCHC 33.3 g/dL (32.0-37.0); MCV 90.6 fL (80.0-97.0); Mean Platelet Volume 8.7 fL (9.5-12.2); NRBC Per 100 WBC 0 /100 WBCS (0.0-0.0); Platelet Count 279 X 10*3/uL (140-440); RBC 3.61 X 10*6/uL (4.10-5.20); RDW 13.9 % (11.5-14.5); WBC 20.78 X 10*3/uL (4.50-10.00)
[2022-11-23 09:34] LABS: African American GFR (CKD) 67.5 (60.0-200.0); Albumin 3.5 g/dL (3.8-4.9); Albumin/Globulin Ratio 1.09 (1.60-3.17); BUN/Creat Ratio 18.1 Ratio (12.00-20.00); Blood Urea Nitrogen 18.1 mg/dL (9.0-27.0); Calcium 9.3 mg/dL (8.7-10.3); Globulin 3.2 g/dL (1.6-3.3); Non-African American GFR(CKD) 58.2 (60.0-200.0); Potassium 4.2 mmol/L (3.5-5.5); Total Bilirubin 0.2 mg/dL (0.30-1.20); Total Protein 6.7 g/dL (6.2-8.2)
[2022-11-23 10:33] VITALS: BMI 36.6
[2022-11-23 11:34] LABS: Glucose,Whole Blood 259 mg/dL (70-110)
--- NOTE | 2022-11-23 12:12 | P.PN ---
Subjective Progress Note Date: 11/23/22 Principal diagnosis: Pneumonia Patient is a 67-year female with a past medical history of negative for diabetes mellitus hypertension COPD presenting to the ER for evaluation of increasing shortness of breath and cough failing outpatient oral Zithromax therapy patient did have stasis a concerning for left-sided pneumonia. On today's evaluation that is 11/24/2019, the patient denies any fever or any chills, patient is breathing comfortably on room air, the patient denies any chest pain , the patient cough has decreased intensity and mostly dry in nature, denies any nausea no vomiting no abdominal pain or diarrhea and feeling better Objective - Vital Signs Vital signs: Vital Signs Temp 99.0 F 11/23/22 07:21 Pulse 92 11/23/22 07:21 Resp 18 11/23/22 07:45 BP 181/91 11/23/22 07:21 Pulse Ox 90 L 11/23/22 08:23 FiO2 21 11/22/22 08:51 Intake & Output 11/22/22 11/23/22 11/23/22 18:59 06:59 18:59 Output Total 1 Balance -1 Output: Urine/Stool Mix 1 Other: # Voids 3 4 - Exam GENERAL DESCRIPTION: An elderly female lying in bed in no distress RESPIRATORY SYSTEM: Unlabored breathing , coarse breath sounds at bases HEART: S1 S2 regular rate and rhythm , ABDOMEN: Soft , no tenderness EXTREMITIES: No edema feet - Labs CBC & Chem 7: 11/23/22 06:25 11/23/22 06:25 Labs: Abnormal Lab Results - Last 24 Hours (Table) 11/22/22 11/22/22 11/22/22 Range/Units 11:02 16:03 20:12 WBC (4.50-10.00) X 10*3/uL RBC (4.10-5.20) X 10*6/uL Hgb (12.0-15.0) g/dL Hct (37.2-46.3) % MPV (9.5-12.2) fL Sodium (135-145) mmol/L Carbon Dioxide (20.0-27.5) mmol/L Est GFR (CKD-EPI)NonAf (60.0-200.0) Glucose (70-110) mg/dL POC Glucose (mg/dL) 253 H 226 H 283 H (70-110) mg/dL Total Bilirubin (0.30-1.20) mg/dL AST (13-35) U/L ALT (8-44) U/L Alkaline Phosphatase (41-126) U/L Albumin (3.8-4.9) g/dL Albumin/Globulin Ratio (1.60-3.17) g/dL 11/23/22 11/23/22 11/23/22 Range/Units 05:43 06:25 06:25 WBC 20.78 H (4.50-10.00) X 10*3/uL RBC 3.61 L (4.10-5.20) X 10*6/uL Hgb 10.9 L (12.0-15.0) g/dL Hct 32.7 L (37.2-46.3) % MPV 8.7 L (9.5-12.2) fL Sodium 134 L (135-145) mmol/L Carbon Dioxide 19.0 L (20.0-27.5) mmol/L Est GFR (CKD-EPI)NonAf 58.2 L (60.0-200.0) Glucose 253 H (70-110) mg/dL POC Glucose (mg/dL) 285 H (70-110) mg/dL Total Bilirubin 0.20 L (0.30-1.20) mg/dL AST 76 H (13-35) U/L ALT 229 H (8-44) U/L Alkaline Phosphatase 129 H (41-126) U/L Albumin 3.5 L (3.8-4.9) g/dL Albumin/Globulin Ratio 1.09 L (1.60-3.17) g/dL Microbiology - Last 24 Hours (Table) 11/18/22 19:30 Blood Culture - Preliminary Blood No Growth after 96 hours 11/18/22 19:45 Blood Culture - Preliminary Blood No Growth after 96 hours 11/20/22 04:15 Gram Stain - Final Sputum Sputum Culture - Final Staphylococcus aureus Assessment and Plan (1) Pneumonia Current Visit: Yes Status: Acute Code(s): J18.9 - PNEUMONIA, UNSPECIFIED ORGANISM SNOMED Code(s): 067726849 Plan: 1patient presented to hospital with increased shortness of breath cough productive sputum with a left-sided infiltrate concerning for pneumonia in this patient apparently failing outpatient oral Zithromax therapy will need to cover for the community-acquired as well as gram-negative pathogen in this patient who did have a history of COPD and exposure to antibiotics. 2patient with renal insufficiency and high risk of nephrotoxicity from vancomycin. 3sputum cultures currently pending, patient did have elevated CRP and a procalcitonin level. 4-ultrasound abdomen did not show any evidence of cbd dilatation or right-sided hydronephrosis 5patient seemed to have some clinical improvement , the patient's sputum did grew MSSA patient is on cefazolin patient apparently has been discharged by admitting physician this morning with Augmentin and a close outpatient follow-up Time with Patient: Less than 30
--- NOTE | 2022-11-23 15:03 | CDI ---
Documentation Clarification Form Date: 11/23/2022 2:35:15 PM From: Allie Noel RN, CCDS Email: [email or web address] Admit Date: 11/18/2022 8:05:00 PM Patient Name: Akosua Yost Visit Number: [id number] Discharge Date: 11/23/2022 2:25:00 PM ATTENTION: The Clinical Documentation Specialists (CDI) and [facility] Coding Staff appreciate your assistance in clarifying documentation. Please respond to the clarification below the line at the bottom and electronically sign. The CDI & [facility] Coding staff will review the response and follow-up if needed. Please note: Queries are made part of the Legal Health Record. If you have any questions, please contact the author of this message via ITS. Dr. Yomi Kennedy Pneumonia is documented throughout the progress notes. Additional clarification regarding the type of pneumonia is requested. History/Risk Factors: COPD, DM and HTN. Was recently diagnosed with bronchitis at our emergency department on November 15. She was discharged home on Azithromycin. Clinical Indicators: H&P: "worsening upper respiratory infection, weakness, cough. Not eating or drinking and she is sleeping all day." 11/18 WBC: 28.8, lactic acid 3.4, Cr 2.23 11/20 Procalcitonin: 1.05 11/20 Sputum: MSSA ID consult: patient presented to hospital with increased shortness of breath cough productive sputum with a left-sided infiltrate concerning for pneumonia in this patient apparently failing outpatient oral Zithromax therapy will need to cover for the community-acquired as well as gram-negative pathogen in this patient who did have a history of COPD and exposure to antibiotics." 11/18 X-ray: There is some mild left side pulmonary infiltrate that could be acute pneumonia and appears new compared to old exam. No obvious heart failure. Lung/Breathing assessment: coarse breath sounds at the bases. Treatment: IV Vancomycin 1500mg on 11/18, 11/19 and 11/22. 2L 0.9 NS IV bolus on 11/18 followed by NS @130/hr. IV Zosyn 3.375gm Q8H and Q12H. Albuterol 2 puffs QID Please clarify the type of pneumonia, if known: [ ] Pneumonia due to MSSA [ ] Other, please specify [ x ] Unable to determine MTDD
== END 2022-11-23 14:25 | disposition home or self-care (01) | DRG 871 ==
LOC: EC 17:30 → 4SSUR 20:05
PROVIDERS: ADMIT Family Medicine; ATTEND Family Medicine
DX: A41.9 Sepsis, unspecified organism (principal); J18.9 Pneumonia, unspecified organism; E87.1 Hypo-osmolality and hyponatremia; J44.0 Chronic obstructive pulmonary disease with (acute) lower respiratory infection; J44.1 Chronic obstructive pulmonary disease with (acute) exacerbation; N17.9 Acute kidney failure, unspecified; E03.9 Hypothyroidism, unspecified; E83.42 Hypomagnesemia; E78.5 Hyperlipidemia, unspecified; E86.0 Dehydration; E87.8 Other disorders of electrolyte and fluid balance, not elsewhere classified; F17.210 Nicotine dependence, cigarettes, uncomplicated; F32.A Depression, unspecified; I10 Essential (primary) hypertension; T38.0X5A Adverse effect of glucocorticoids and synthetic analogues, initial encounter; D72.829 Elevated white blood cell count, unspecified; Z20.822 Contact with and (suspected) exposure to COVID-19; Z79.4 Long term (current) use of insulin; Z79.82 Long term (current) use of aspirin; Z79.84 Long term (current) use of oral hypoglycemic drugs; Z79.890 Hormone replacement therapy; Z79.899 Other long term (current) drug therapy; Z71.3 Dietary counseling and surveillance
CPT/HCPCS: 36415; 71046; 76705; 80048; 80053; 82009; 83605; 83735; 83880; 84145; 85025; 85027; 86140; 87040; 87070; 87077; 87186; 87205; 87636; 93005; 94640; 94760; 96361; 96365; 96368; 96375; 99291

== ENCOUNTER 2023-01-19 10:21 | Inpatient (IN) | payer MEDICARE, OTHER ==
[2023-01-19 10:40] LABS: Glucose,Whole Blood 390 mg/dL (70-110)
--- NOTE | 2023-01-19 10:44 | ED ---
General Adult HPI - General Stated complaint: Abd pain Time Seen by Provider: 01/19/23 10:30 Source: patient, RN notes reviewed, old records reviewed - History of Present Illness Initial comments: This is a 67-year-old female presents emergency Department complaining of abdominal pain increasing over the last week. Patient states she hasn't had a bowel movement about a week. Patient states her belly is also significantly mor e distended than normal. Patient denies any vomiting but was nauseous earlier but no longer. Patient denies any diarrhea. Patient denies any drinking. Patient denies any. Patient does have COPD but she's not having any more difficulty breathing and normal. Patient has chest pain or palpitations. Patient has headache patient denies numbness weakness. Patient denies any recent fever or chills. - Related Data Home Medications Medication Instructions Recorded Confirmed Gabapentin 800 mg PO TID 08/17/20 01/19/23 Insulin Glargine,Hum.rec.anlog 55 unit SQ BID 08/17/20 01/19/23 [Lantus Solostar Pen] Oxybutynin Chloride [Oxybutynin 10 mg PO DAILY 08/17/20 01/19/23 Chloride ER] Topiramate 50 mg PO BID 08/17/20 01/19/23 metFORMIN HCL [Glucophage] 1,000 mg PO BID 08/17/20 01/19/23 Cyclobenzaprine [Flexeril] 10 mg PO BID PRN 09/17/21 01/19/23 FLUoxetine HCL [PROzac] 40 mg PO DAILY@1600 09/17/21 01/19/23 Fluticasone Nasal [place] [Flonase 1 - 2 spr EA NOSTRIL 09/17/21 01/19/23 Nasal [place]] Albuterol Inhaler [Ventolin Hfa 2 puff INHALATION RT-QID PRN 12/14/21 01/19/23 Inhaler] HYDROcodone/APAP 10-325MG [[place] 1 tab PO Q6H PRN 12/14/21 01/19/23 10-325] Levothyroxine Sodium 88 mcg PO DAILY 12/14/21 01/19/23 QUEtiapine [SEROquel] 400 mg PO HS 12/14/21 01/19/23 Atorvastatin [Lipitor] 40 mg PO DAILY@1600 06/16/22 01/19/23 Cholecalciferol (Vitamin D3) 125 mcg PO DAILY@1600 06/16/22 01/19/23 [Vitamin D3 (125 MCG = 5,000 IU)] Fluticasone Propion/Salmeterol 1 puff INHALATION RT-BID 06/16/22 01/19/23 [Advair 500-50 Diskus] Multivitamins, Thera [Multivitamin 1 tab PO DAILY@1600 06/16/22 01/19/23 (formulary)] Triamcinolone 0.1% Cream [Kenalog 1 applic TOPICAL BID PRN 06/16/22 01/19/23 0.1% Cream] Vitamin E (Dl,Tocopheryl Acet) 400 unit PO DAILY@1600 06/16/22 01/19/23 [Vitamin E (400 Iu = 180 mg)] Ibuprofen [Motrin] 600 mg PO TID PRN 11/18/22 01/19/23 Loratadine 10 mg PO DAILY 11/18/22 01/19/23 Famotidine [Pepcid] 20 mg PO BID 01/19/23 01/19/23 Levocetirizine Dihydrochloride 5 mg PO BID 01/19/23 01/19/23 [Xyzal] Mupirocin 2% Oint [Bactroban 2% 1 applic TOPICAL BID 01/19/23 01/19/23 Oint] hydrOXYzine HCL [Atarax] 25 mg PO TID PRN 01/19/23 01/19/23 Previous Rx's Medication Instructions Recorded Aspirin 325 mg PO DAILY #30 tab 06/18/22 Lactulose [Cephulac] 30 gm PO BID PRN 7 Days #14 ml 09/04/22 amLODIPine [Norvasc] 5 mg PO DAILY 30 Days #30 tab 11/23/22 Allergies Allergy/AdvReac Type Severity Reaction Status Date / Time No Known Allergies Allergy Verified 01/19/23 13:50 Review of Systems ROS Statement: Those systems with pertinent positive or pertinent negative responses have been documented in the HPI. ROS Other: All systems not noted in ROS Statement are negative. 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 General Exam - General Exam Comments Initial Comments: GENERAL: Patient is well-developed and well-nourished. Patient is nontoxic and well- hydrated and is in mild distress. ENT: Neck is soft and supple. No significant lymphadenopathy is noted. Oropharynx is clear. Moist mucous membranes. Neck has full range of motion without eliciting any pain. EYES: The sclera were anicteric and conjunctiva were pink and moist. Extraocular movements were intact and pupils were equal round and reactive to light. Eyelids were unremarkable. PULMONARY: Unlabored respirations. Good breath sounds bilaterally. No audible rales rhonchi or wheezing was noted. CARDIOVASCULAR: Patient is tachycardic at about 110 beats a minute ABDOMEN: Significantly distended abdomen with diffuse tenderness but no rebound SKIN: Skin is clear with no lesions or rashes and otherwise unremarkable. NEUROLOGIC: Patient is alert and oriented x3. Cranial nerves II through XII are grossly intact. Motor and sensory are also intact. Normal speech, volume and content. Symmetrical smile. MUSCULOSKELETAL: Normal extremities with adequate strength and full range of motion. No lower extremity swelling or edema. No calf tenderness. LYMPHATICS: No significant lymphadenopathy is noted PSYCHIATRIC: Normal psychiatric evaluation. Course Vital Signs 01/19/23 01/19/23 01/19/23 10:24 10:29 10:30 Temperature 97.6 F Pulse Rate 104 H 105 H 105 H Respiratory 18 28 H 25 H Rate Blood Pressure 107/67 O2 Sat by Pulse 98 97 Oximetry 01/19/23 01/19/23 01/19/23 11:00 11:30 12:00 Temperature Pulse Rate 104 H 105 H Respiratory 30 H 29 H Rate Blood Pressure 107/67 105/63 113/58 O2 Sat by Pulse 98 Oximetry 01/19/23 01/19/23 01/19/23 12:30 13:00 13:30 Temperature Pulse Rate 109 H 109 H Respiratory 30 H 19 Rate Blood Pressure 113/58 116/96 O2 Sat by Pulse 96 96 Oximetry 01/19/23 14:00 Temperature Pulse Rate 112 H Respiratory 24 Rate Blood Pressure 132/73 O2 Sat by Pulse 96 Oximetry Procedures - Sepsis Sepsis Focused Exam #1 Time Sepsis Criteria Met: 12:40 Sepsis Focused Exam Date: 01/19/23 Sepsis Focused Exam Time: 15:04 Sepsis Focused Exam Complete: Yes Vital Signs & RN Notes Reviewed: Yes Capillary Refill: < 2 Seconds: Fingers Peripheral Pulses: Normal: Radial (R) Skin Color: Normal for Patient Respiratory Exam: normal lung sounds Cardiovascular Exam: tachycardia Medical Decision Making - Medical Decision Making Patient's ideal body weight is 49.9 kg Patient was determined to be some have ischemic bowel at 12:40 PM EKG was interpreted by myself that shows sinus tachycardia at 107 bpm SD interval is 240 QRS is 70 QT interval 368 QTC is 432. Patient's EKG shows no ST segment elevation or depression. Was pt. sent in by a medical professional or institution (RAJINDER Burkett, WINDOWS SERVER ARCHITECT, urgent care, hospital, or detention...) When possible be specific @ -No Did you speak to anyone other than the patient for history (EMS, parent, family, police, friend...)? What history was obtained from this source @ -No Did you review nursing and triage notes (agree or disagree)? Why? @ -I reviewed and agree with nursing and triage notes Were old charts reviewed (outside hosp., previous admission, EMS record, old EKG, old radiological studies, urgent care reports/EKG's, detention records)? Report findings @ -Reviewed prior lab work from prior charts on this patient Differential Diagnosis (chest pain, altered mental status, abdominal pain women, abdominal pain men, vaginal bleeding, weakness, fever, dyspnea, syncope, headache, dizziness, GI bleed, back pain, seizure, CVA, palpatations, mental he alth, musculoskeletal)? @ -Differential Abdominal Pain Women: Appendicitis, Cholecystitis, diverticulosis, ischemic bowel, pancreatitis, hepatitis, UTI, gastroenteritis, AAA, incarcerated hernia, bowel obstruction, constipation, inflammatory bowel, hepatitis, peptic ulcer disease, splenic infarction, perforated viscus, vulvitis, ovarian torsion, PID, kidney stone, placenta abruption, this is not meant to be an all-inclusive list EKG interpreted by me (3pts min.). @ -As above X-rays interpreted by me (1pt min.). @ -Chest x-ray shows some atelectasis in the left base CT interpreted by me (1pt min.). @ -CT was interpreted by myself. There is some dilated colon with some pneumatosis. U/S interpreted by me (1pt. min.). @ -None done What testing was considered but not performed or refused? (CT, X-rays, U/S, labs)? Why? @ -None What meds were considered but not given or refused? Why? @ -None Did you discuss the management of the patient with other professionals (professionals i.e. Dr., PA, WINDOWS SERVER ARCHITECT, lab, RT, psych nurse, neonatal social worker, bisque cleaner, teacher, account officer, housing case manager)? Give summary @ -I spoke with Dr. Burciaga and she did not want to admit the patient because she felt that this was all secondary to constipation and did not feel it was likely to be ischemic bowel and she was unable to come see the patient anytime soon she wanted the patient admitted to medicine. I spoke with Dr. mcdaniel he refused to take the patient on the medicine service. I spoke with Dr. Mike she was willing to take the patient I then spoke with Dr. Dewitt and he agreed to come down and see the patient. Was smoking cessation discussed for >3mins.? @ -No Was critical care preformed (if so, how long)? @ -35 minutes Were there social determinants of health that impacted care today? How? (Homelessness, low income, unemployed, alcoholism, drug addiction, transportation, low edu. Level, literacy, decrease access to med. care, longterm, rehab)? @ -No Was there de-escalation of care discussed even if they declined (Discuss DNR or withdrawal of care, Hospice)? DNR status @ -No What co-morbidities impacted this encounter? (DM, HTN, Smoking, COPD, CAD, Cancer, CVA, ARF, Chemo, Hep., AIDS, mental health diagnosis, sleep apnea, morbid obesity)? @ -None Was patient admitted / discharged? Hospital course, mention meds given and route, prescriptions, significant lab abnormalities, going to OR and other pertinent info. @ -Patient was given Dilaudid for pain. Patient had a CAT scan done which showed potential ischemic bowel. Patient given antibiotics patient was also given 2 l of fluid in the emergency department. I spoke with Dr. Mike who accepted the patient and Dr. Dewitt who also will be on consult as well as Dr. mcdaniel will be on consult . Patient will be admitted to ICU Undiagnosed new problem with uncertain prognosis? @ -No Drug Therapy requiring intensive monitoring for toxicity (Heparin, Nitro, Insulin, Cardizem)? @ -No Were any procedures done? @ -No Diagnosis/symptom? @ -Ischemic bowel Acute, or Chronic, or Acute on Chronic? @ -Acute Uncomplicated (without systemic symptoms) or Complicated (systemic symptoms)? @ -Complicated Side effects of treatment? @ -No Exacerbation, Progression, or Severe Exacerbation? @ -No Poses a threat to life or bodily function? How? (Chest pain, [place], [place], pneumonia, PE, COPD, DKA, ARF, appy, cholecystitis, CVA, Diverticulitis, Homicidal, Suicidal, threat to staff... and all critical care pts) @ -Yes this can lead to sepsis and - Lab Data Result diagrams: 01/19/23 10:49 01/19/23 10:49 Lab Results 01/19/23 01/19/23 01/19/23 Range/Units 10:39 10:49 10:49 WBC 25.6 H (3.8-10.6) k/uL RBC 4.32 (3.80-5.40) m/uL Hgb 12.6 (11.4-16.0) gm/dL Hct 41.4 (34.0-46.0) % MCV 95.9 D (80.0-100.0) fL MCH 29.2 (25.0-35.0) pg MCHC 30.5 L (31.0-37.0) g/dL RDW 13.7 (11.5-15.5) % Plt Count 256 (150-450) k/uL MPV 7.1 Neutrophils % (Manual) 83 % Band Neuts % (Manual) 4 % Lymphocytes % (Manual) 6 % Monocytes % (Manual) 5 % Metamyelocytes % 2 % Neutrophils # (Manual) 22.20 H (1.3-7.7) k/uL Lymphocytes # (Manual) 1.54 (1.0-4.8) k/uL Monocytes # (Manual) 1.28 H (0-1.0) k/uL Metamyelocytes # (Man) 0.51 H (0) k/uL Nucleated RBCs 0 (0-0) /100 WBC Manual Slide Review Performed Hypochromasia Slight Tear Drop Cells Present PT 10.1 (9.0-12.0) sec INR 0.9 (<1.2) APTT 20.1 L (22.0-30.0) sec Sodium (137-145) mmol/L Potassium (3.5-5.1) mmol/L Chloride (98-107) mmol/L Carbon Dioxide (22-30) mmol/L Anion Gap mmol/L BUN (7-17) mg/dL Creatinine (0.52-1.04) mg/dL Est GFR (CKD-EPI)AfAm (>60 ml/min/1.73 sqM) Est GFR (CKD-EPI)NonAf (>60 ml/min/1.73 sqM) Glucose (74-99) mg/dL POC Glucose (mg/dL) 390 H (70-110) mg/dL POC Glu Wire Preparation Machine Tender ID Belval, Alissa Lactic Ac Sepsis Rflx Plasma Lactic Acid Kashif (0.7-2.0) mmol/L Calcium (8.4-10.2) mg/dL Total Bilirubin (0.2-1.3) mg/dL AST (14-36) U/L ALT (4-34) U/L Alkaline Phosphatase (38-126) U/L Total Protein (6.3-8.2) g/dL Albumin (3.5-5.0) g/dL Amylase (30-110) U/L Lipase (23-300) U/L Urine Color Urine Appearance (Clear) Urine pH (5.0-8.0) Ur Specific [place] (1.001-1.035) Urine Protein (Negative) Urine Glucose (UA) (Negative) Urine Ketones (Negative) Urine Blood (Negative) Urine Nitrite (Negative) Urine Bilirubin (Negative) Urine Urobilinogen (<2.0) mg/dL Ur Leukocyte Esterase (Negative) Urine RBC (0-5) /hpf Urine WBC (0-5) /hpf Ur Squamous Epith Cells (0-4) /hpf Urine Bacteria (None) /hpf Hyaline Casts (0-2) /lpf Urine Mucus (None) /hpf 01/19/23 01/19/23 01/19/23 Range/Units 10:49 10:49 11:32 WBC (3.8-10.6) k/uL RBC (3.80-5.40) m/uL Hgb (11.4-16.0) gm/dL Hct (34.0-46.0) % MCV (80.0-100.0) fL MCH (25.0-35.0) pg MCHC (31.0-37.0) g/dL RDW (11.5-15.5) % Plt Count (150-450) k/uL MPV Neutrophils % (Manual) % Band Neuts % (Manual) % Lymphocytes % (Manual) % Monocytes % (Manual) % Metamyelocytes % % Neutrophils # (Manual) (1.3-7.7) k/uL Lymphocytes # (Manual) (1.0-4.8) k/uL Monocytes # (Manual) (0-1.0) k/uL Metamyelocytes # (Man) (0) k/uL Nucleated RBCs (0-0) /100 WBC Manual Slide Review Hypochromasia Tear Drop Cells PT (9.0-12.0) sec INR (<1.2) APTT (22.0-30.0) sec Sodium 134 L (137-145) mmol/L Potassium 4.3 (3.5-5.1) mmol/L Chloride 100 (98-107) mmol/L Carbon Dioxide 14 L (22-30) mmol/L Anion Gap 20 mmol/L BUN 20 H (7-17) mg/dL Creatinine 1.89 H (0.52-1.04) mg/dL Est GFR (CKD-EPI)AfAm 31 (>60 ml/min/1.73 sqM) Est GFR (CKD-EPI)NonAf 27 (>60 ml/min/1.73 sqM) Glucose 369 H (74-99) mg/dL POC Glucose (mg/dL) (70-110) mg/dL POC Glu Wire Preparation Machine Tender ID Lactic Ac Sepsis Rflx Y Plasma Lactic Acid Kashif 7.2 H* (0.7-2.0) mmol/L Calcium 10.0 (8.4-10.2) mg/dL Total Bilirubin 0.8 (0.2-1.3) mg/dL AST 57 H (14-36) U/L ALT 35 H (4-34) U/L Alkaline Phosphatase 617 H (38-126) U/L Total Protein 7.5 (6.3-8.2) g/dL Albumin 4.3 (3.5-5.0) g/dL Amylase 69 (30-110) U/L Lipase 107 (23-300) U/L Urine Color Urine Appearance (Clear) Urine pH (5.0-8.0) Ur Specific [place] (1.001-1.035) Urine Protein (Negative) Urine Glucose (UA) (Negative) Urine Ketones (Negative) Urine Blood (Negative) Urine Nitrite (Negative) Urine Bilirubin (Negative) Urine Urobilinogen (<2.0) mg/dL Ur Leukocyte Esterase (Negative) Urine RBC (0-5) /hpf Urine WBC (0-5) /hpf Ur Squamous Epith Cells (0-4) /hpf Urine Bacteria (None) /hpf Hyaline Casts (0-2) /lpf Urine Mucus (None) /hpf 01/19/23 01/19/23 01/19/23 Range/Units 12:42 13:21 13:21 WBC (3.8-10.6) k/uL RBC (3.80-5.40) m/uL Hgb (11.4-16.0) gm/dL Hct (34.0-46.0) % MCV (80.0-100.0) fL MCH (25.0-35.0) pg MCHC (31.0-37.0) g/dL RDW (11.5-15.5) % Plt Count (150-450) k/uL MPV Neutrophils % (Manual) % Band Neuts % (Manual) % Lymphocytes % (Manual) % Monocytes % (Manual) % Metamyelocytes % % Neutrophils # (Manual) (1.3-7.7) k/uL Lymphocytes # (Manual) (1.0-4.8) k/uL Monocytes # (Manual) (0-1.0) k/uL Metamyelocytes # (Man) (0) k/uL Nucleated RBCs (0-0) /100 WBC Manual Slide Review Hypochromasia Tear Drop Cells PT 10.2 (9.0-12.0) sec INR 1.0 (<1.2) APTT 25.0 (22.0-30.0) sec Sodium (137-145) mmol/L Potassium (3.5-5.1) mmol/L Chloride (98-107) mmol/L Carbon Dioxide (22-30) mmol/L Anion Gap mmol/L BUN (7-17) mg/dL Creatinine (0.52-1.04) mg/dL Est GFR (CKD-EPI)AfAm (>60 ml/min/1.73 sqM) Est GFR (CKD-EPI)NonAf (>60 ml/min/1.73 sqM) Glucose (74-99) mg/dL POC Glucose (mg/dL) (70-110) mg/dL POC Glu Wire Preparation Machine Tender ID Lactic Ac Sepsis Rflx Plasma Lactic Acid Kashif 7.3 H* (0.7-2.0) mmol/L Calcium (8.4-10.2) mg/dL Total Bilirubin (0.2-1.3) mg/dL AST (14-36) U/L ALT (4-34) U/L Alkaline Phosphatase (38-126) U/L Total Protein (6.3-8.2) g/dL Albumin (3.5-5.0) g/dL Amylase (30-110) U/L Lipase (23-300) U/L Urine Color Yellow Urine Appearance Cloudy H (Clear) Urine pH 5.5 (5.0-8.0) Ur Specific [place] 1.020 (1.001-1.035) Urine Protein 2+ H (Negative) Urine Glucose (UA) Negative (Negative) Urine Ketones Negative (Negative) Urine Blood Negative (Negative) Urine Nitrite Negative (Negative) Urine Bilirubin Negative (Negative) Urine Urobilinogen <2.0 (<2.0) mg/dL Ur Leukocyte Esterase Large H (Negative) Urine RBC 7 H (0-5) /hpf Urine WBC 33 H (0-5) /hpf Ur Squamous Epith Cells 12 H (0-4) /hpf Urine Bacteria Rare H (None) /hpf Hyaline Casts 7 H (0-2) /lpf Urine Mucus Rare H (None) /hpf Critical Care Time Critical Care Time: Yes Total Critical Care Time: 35 Disposition Clinical Impression: Ischemic bowel disease Disposition: ADMITTED IP TO THIS [facility] Time of Disposition: 13:15
[2023-01-19 11:03] LABS: HCT 41.4 % (34.0-46.0); HGB 12.6 gm/dL (11.4-16.0); Hypochromasia Slight; MCH 29.2 pg (25.0-35.0); MCHC 30.5 g/dL (31.0-37.0); Mean Platelet Volume 7.1; Platelet Count 256 k/uL (150-450); RBC 4.32 m/uL (3.80-5.40); RDW 13.7 % (11.5-15.5); WBC 25.6 k/uL (3.8-10.6)
[2023-01-19 11:09] LABS: MCV 95.9 fL (80.0-100.0)
[2023-01-19 11:14] LABS: Albumin 4.3 g/dL (3.5-5.0); Potassium 4.3 mmol/L (3.5-5.1); Total Bilirubin 0.8 mg/dL (0.2-1.3); Total Protein 7.5 g/dL (6.3-8.2)
[2023-01-19 11:20] LABS: INR 0.9 (<1.2); Partial Thromboplastin Time 20.1 sec (22.0-30.0)
[2023-01-19 11:36] LABS: Prothrombin Time 10.1 sec (9.0-12.0)
[2023-01-19 11:45] LABS: Band Neutrophils % 4 %; Lymphocytes # (M) 1.54 k/uL (1.0-4.8); Metamyelocytes # (M) 0.51 k/uL (0); Metamyelocytes % 2 %; Monocytes # (M) 1.28 k/uL (0-1.0); Neutrophils % (M) 83 %; Nucleated Red Blood Cells 0 /100 WBC (0-0); Total Cells Counted 100
[2023-01-19 11:54] LABS: Tear Drop Cells Present
[2023-01-19] MEDS ORDERED: SODIUM CHLORIDE 0.9% 1,000 ML IV ONE ×2 (12:10→13:32)
[2023-01-19] MEDS ORDERED: SODIUM CHLORIDE 0.9% 500 ML 500 ML IV ONE (12:10)
[2023-01-19] MEDS ORDERED: PIPERACILLIN-TAZOBACTAM 3.375 GM in SODIUM CHLORIDE 0.9% 100 ML IVPB STA (12:10)
[2023-01-19] MEDS ORDERED: HYDROmorphone 0.5 MG/0.5 ML SYRINGE IVP STA ×2 (12:10→13:57)
--- NOTE | 2023-01-19 12:39 | CT ---
EXAMINATION TYPE: CT abdomen pelvis wo con DATE OF EXAM: 01/19/2023 COMPARISON: 08/30/2022 HISTORY: 67-year-old female abdominal pain, Pain, distention CT DLP: 1168.4 mGycm. Automated exposure control for dose reduction was used. TECHNIQUE: Contiguous axial scanning of the abdomen and pelvis without IV contrast. Coronal and sagit noelle reconstructions performed. FINDINGS: Heart upper limits of normal in size without pericardial effusion. Strandy atelectasis or scarring at the lung bases No focal liver lesion. Bile duct measures mildly dilated millimeters. No dilated small bowel. However, there is pancolonic dilatation with cecum measuring up to 9.4 cm, ascending colon measuring up to 7.9 cm, transverse colon measuring up to 6.6 cm, and descending colon measuring up to 6.5 cm, s igmoid colon measuring up to 6.4 cm. There is moderate to large stool the distal colon and rectum and prominent liquid stool in the right side of the colon. Mesenteric edema adjacent to the colon left side of the abdomen. Questionable scat tered foci of colonic wall pneumatosis, for example, axial image 55 and 65. No free intraperitoneal air, portal venous gas, or pneumobilia is seen. Bladder is collapsed. Surgically absent. Both ovaries are visualized. Mild pelvic floor relaxation. Post surgical changes L4-L5 posteriorly. Change prominently involving the lumbar fusion with grade 1 anterolisthesis L5-S1. IMPRESSION: Pancolonic distention with the cecum up to 9.4 cm and the remainder of the colon up to 7.9 cm. Some m esenteric edema adjacent to the descending colon. Questionable scattered foci of colonic wall pneumat osis. Correlate with lactic acid levels for potential ischemic colitis. No free air.
[2023-01-19 13:00] LABS: Appearance,Urine Cloudy (Clear); Bacteria,Urine Rare /hpf; Bilirubin,Urine Negative (Negative); Blood,Urine Negative (Negative); Color,Urine Yellow; Glucose,Urine (UA) Negative (Negative); Hyaline Casts,Urine 7 /lpf (0-2); Ketones,Urine Negative (Negative); Leukocyte Esterase,Urine Large (Negative); Mucus,Urine Rare /hpf; Nitrite,Urine Negative (Negative); PH, Urine 5.5 (5.0-8.0); Protein,Urine 2+ (Negative); RBC,Urine 7 /hpf (0-5); Squamous Epithelial Cell,Urine 12 /hpf (0-4); Urobilinogen,Urine <2.0 mg/dL (<2.0); WBC,Urine 33 /hpf (0-5)
--- NOTE | 2023-01-19 13:11 | XR ---
EXAMINATION TYPE: XR chest 2V DATE OF EXAM: 01/19/2023 COMPARISON: 11/21/2022 TECHNIQUE: PA and lateral views submitted. HISTORY: Shortness of breath FINDINGS: The lungs are clear and there is no pneumothorax, pleural effusion, or focal pneumonia. Heart size normal and no overt failure. Osseous structures demonstrate hypertrophic and degenerative changes of the spine. Remote posttraumatic change and arthropathy of the left shoulder. Limited inspiration with gastric bubble distention. Linear changes involving both lungs most likely atelectasis. IMPRESSION: 1. No acute process. 2. There is low lung volumes with apparent gastric bubble distention correlate clinically for abdomin al symptoms. 3. Subsegmental left basilar consolidation felt more typical of atelectasis than pneumonia. Correlate clinically for confirmation.
[2023-01-19 13:54] LABS: Prothrombin Time 10.2 sec (9.0-12.0)
[2023-01-19] MEDS ORDERED: NALOXONE 0.4 MG/ML 1 ML VIAL IV PRN (14:22)
--- NOTE | 2023-01-19 14:46 | P.CNPUL ---
History of Present Illness Consult date: 01/19/23 Requesting physician: Yomi Kennedy Reason for consult: other Chief complaint: Abdominal pain/abdominal distention. History of present illness: Pulmonary/critical care consult dated 01/19/2023. 67-year-old female seen in the emergency room, by Dr. Montoya. She came into the emergency room, today, January 19, complaining of abdominal pain. Been going on for about 7-10 days. She apparently has not had a bowel movement for about 7 days according to her and her . Her apparently found her on the floor today. He is not sure how long she was on the ground. The patient denied any vomiting, but she did have nausea. There was no diarrhea. The patient apparently has had this problem in the past, and was supposed to have a colonoscopy with one of the surgeons but that never took place. She was admitted last in November, for hyponatremia. Her primary care physician is Dr. Kennedy. We were consulted, because the surgeon felt that she might need an ICU bed. Currently, she is on room air. An IV is connected. She does have a history of COPD, and diabetes. She also has a history of hypertension. She is a daily tobacco user, and she apparently does also vape. White count 25.6, with a normal hemoglobin, hematocrit, and platelet count. The patient's sodium is 134, potassium 4.3, chlorides 100, CO2 14, anion gap 20, BUN 20, creatinine 1.89. Glucose 69. Lactic acid 7.2. Repeat 7.3. The urine is yellow and cloudy with 2+ protein. Leukocyte esterase is large positive. She has 33 WBCs, and rare bacteria. Chest x-ray shows small lung volumes, and some basilar atelectasis. No acute abnormality noted. Computed tomography scan of the belly shows martinez-colonic distention, and possible ischemic colitis. Review of Systems REVIEW OF SYSTEMS: CONSTITUTIONAL: [Negative.] NEUROLOGIC: [ Negative.] HEENT: [ Negative.] CARDIAC: [Negative.] PULMONARY: [Negative.] GI: Abdominal distention, constipation. : [Negative.] RHEUMATOLOGIC: [ Negative.] IMMUNOLOGIC: [ Negative.] ENDOCRINE: [Negative. ] DERMATOLOGIC: [Negative.] 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 Past Anesthesia/Blood Transfusion Reactions: No Reported Reaction Past Psychological History: Depression Smoking Status: Current every day smoker Past Alcohol Use History: None Reported Past Drug Use History: None Reported Additional Drug Use History / Comment(s): Patient states she smokes about 10 cig/day. Medications and Allergies Home Medications Medication Instructions Recorded Confirmed Type Gabapentin 800 mg PO TID 08/17/20 01/19/23 History Insulin Glargine,Hum.rec.anlog 55 unit SQ BID 08/17/20 01/19/23 History [Lantus Solostar Pen] Oxybutynin Chloride [Oxybutynin 10 mg PO DAILY 08/17/20 01/19/23 History Chloride ER] Topiramate 50 mg PO BID 08/17/20 01/19/23 History metFORMIN HCL [Glucophage] 1,000 mg PO BID 08/17/20 01/19/23 History Cyclobenzaprine [Flexeril] 10 mg PO BID PRN 09/17/21 01/19/23 History FLUoxetine HCL [PROzac] 40 mg PO DAILY@1600 09/17/21 01/19/23 History Fluticasone Nasal [place] [Flonase 1 - 2 spr EA NOSTRIL HS 09/17/21 01/19/23 History Nasal [place]] Albuterol Inhaler [Ventolin Hfa 2 puff INHALATION RT-QID PRN 12/14/21 01/19/23 H istory Inhaler] HYDROcodone/APAP 10-325MG [[place] 1 tab PO Q6H PRN 12/14/21 01/19/23 History 10-325] Levothyroxine Sodium 88 mcg PO DAILY 12/14/21 01/19/23 History QUEtiapine [SEROquel] 400 mg PO HS 12/14/21 01/19/23 History Atorvastatin [Lipitor] 40 mg PO DAILY@1600 06/16/22 01/19/23 History Cholecalciferol (Vitamin D3) 125 mcg PO DAILY@1600 06/16/22 01/19/23 History [Vitamin D3 (125 MCG = 5,000 IU)] Fluticasone Propion/Salmeterol 1 puff INHALATION RT-BID 06/16/22 01/19/23 History [Advair 500-50 Diskus] Multivitamins, Thera [Multivitamin 1 tab PO DAILY@1600 06/16/22 01/19/23 History (formulary)] Triamcinolone 0.1% Cream [Kenalog 1 applic TOPICAL BID PRN 06/16/22 01/19/23 History 0.1% Cream] Vitamin E (Dl,Tocopheryl Acet) 400 unit PO DAILY@1600 06/16/22 01/19/23 History [Vitamin E (400 Iu = 180 mg)] Aspirin 325 mg PO DAILY #30 tab 06/18/22 01/19/23 Rx Lactulose [Cephulac] 30 gm PO BID PRN 7 Days #14 ml 09/04/22 01/19/23 Rx Ibuprofen [Motrin] 600 mg PO TID PRN 11/18/22 01/19/23 History Loratadine 10 mg PO DAILY 11/18/22 01/19/23 History amLODIPine [Norvasc] 5 mg PO DAILY 30 Days #30 tab 11/23/22 01/19/23 Rx Famotidine [Pepcid] 20 mg PO BID 01/19/23 01/19/23 History Levocetirizine Dihydrochloride 5 mg PO BID 01/19/23 01/19/23 History [Xyzal] Mupirocin 2% Oint [Bactroban 2% 1 applic TOPICAL BID 01/19/23 01/19/23 History Oint] hydrOXYzine HCL [Atarax] 25 mg PO TID PRN 01/19/23 01/19/23 History Allergies Allergy/AdvReac Type Severity Reaction Status Date / Time No Known Allergies Allergy Verified 01/19/23 13:50 Physical Exam Osteopathic Statement: *. No significant issues noted on an osteopathic structural exam other than those noted in the History and Physical/Consult. Vitals: Vital Signs Temp Pulse Resp BP Pulse Ox 01/19/23 14:00 112 H 24 132/73 96 01/19/23 13:30 109 H 19 96 01/19/23 13:00 116/96 01/19/23 12:30 109 H 30 H 113/58 96 01/19/23 12:00 113/58 01/19/23 11:30 105 H 29 H 105/63 01/19/23 11:00 104 H 30 H 107/67 98 01/19/23 10:30 105 H 25 H 97 01/19/23 10:29 105 H 28 H 01/19/23 10:24 97.6 F 104 H 18 107/67 98 Intake and Output 01/18/23 01/19/23 01/19/23 22:59 06:59 14:59 Other: Weight 86.183 kg Severe abdominal pain, oriented, no respiratory distress. HEENT examination is grossly unremarkable. Neck supple. Full range of motion. No adenopathy thyromegaly or neck vein distention. Cardiovascular examination reveals regular rhythm rate. S1-S2 normal. No S3 or S4. No discernible murmur noted. Heart rate 112 bpm. Lungs reveal clear breath sounds. Breath sounds are equal bilaterally. No adventitious lung sounds including wheezes rhonchi or crackles. Room air saturation 96%. Abdomen is severely distended, without bowel sounds. Tenderness on palpation is noted. The tenderness is diffuse. Extremities are intact. No cyanosis clubbing or edema. Skin is without rash or lesion. Neurologic examination is brief but nonfocal. Results - Laboratory Findings CBC and BMP: 01/19/23 10:49 01/19/23 10:49 PT/INR, D-dimer PT 10.2 sec (9.0-12.0) 01/19/23 13:21 INR 1.0 (<1.2) 01/19/23 13:21 Abnormal lab findings: Abnormal Labs 01/19/23 01/19/23 01/19/23 10:39 10:49 10:49 WBC 25.6 H MCHC 30.5 L Neutrophils # (Manual) 22.20 H Monocytes # (Manual) 1.28 H Metamyelocytes # (Man) 0.51 H APTT 20.1 L Sodium Carbon Dioxide BUN Creatinine Glucose POC Glucose (mg/dL) 390 H Plasma Lactic Acid Kashif AST ALT Alkaline Phosphatase Urine Appearance Urine Protein Ur Leukocyte Esterase Urine RBC Urine WBC Ur Squamous Epith Cells Urine Bacteria Hyaline Casts Urine Mucus 01/19/23 01/19/23 01/19/23 10:49 10:49 12:42 WBC MCHC Neutrophils # (Manual) Monocytes # (Manual) Metamyelocytes # (Man) APTT Sodium 134 L Carbon Dioxide 14 L BUN 20 H Creatinine 1.89 H Glucose 369 H POC Glucose (mg/dL) Plasma Lactic Acid Kashif 7.2 H* AST 57 H ALT 35 H Alkaline Phosphatase 617 H Urine Appearance Cloudy H Urine Protein 2+ H Ur Leukocyte Esterase Large H Urine RBC 7 H Urine WBC 33 H Ur Squamous Epith Cells 12 H Urine Bacteria Rare H Hyaline Casts 7 H Urine Mucus Rare H 01/19/23 13:21 WBC MCHC Neutrophils # (Manual) Monocytes # (Manual) Metamyelocytes # (Man) APTT Sodium Carbon Dioxide BUN Creatinine Glucose POC Glucose (mg/dL) Plasma Lactic Acid Kashif 7.3 H* AST ALT Alkaline Phosphatase Urine Appearance Urine Protein Ur Leukocyte Esterase Urine RBC Urine WBC Ur Squamous Epith Cells Urine Bacteria Hyaline Casts Urine Mucus - Diagnostic Findings Chest x-ray: image reviewed Assessment and Plan Assessment: Severe abdominal distention, abdominal pain, constipation, and severe martinez- colonic distention. Rule out ischemic colitis. Acute lactic acidemia, with anion gap metabolic acidosis. History of diabetes mellitus. History of stress urinary incontinence. History of hypothyroidism. History of hyperlipidemia. History of COPD from ongoing tobacco use. History of depression. Recent admission in November of this year for hyponatremia. Plan: Plan dated 01/19/2023. The patient will be admitted to the intensive care unit for further monitoring and management. I spoke to Dr. Montoya about the patient, and also the ICU charge nurse. We will continue to follow and make recommendations along the way. She is yet to be seen by the surgeon. The surgeon, apparently has experience with this patient. The patient was to have a colonoscopy in the past, but never has scheduled it. Prognosis is guarded. Labs, x-rays, and medications are reviewed. Time with Patient: Greater than 30
--- NOTE | 2023-01-19 15:07 | P.GSHP ---
History of Present Illness H&P Date: 01/19/23 CHIEF COMPLAINT: Acute abdomen with ischemic bowel HISTORY OF PRESENT ILLNESS: The patient is a 67 year old female with pre- existing history of diabetes type 2, morbid obesity, COPD, below the knee amputation who presented with 2 week history of abdominal pain. He reports last bowel movement over 2 weeks ago. She has poor oral intake. Incidentally, patient was scheduled to undergo colonoscopy over a month ago and had declined. She presents to emergency room with diffusely tender abdomen, intractable abdominal pain, leukocytosis white blood cell count over 25,[address] findings consistent with ischemic bowel, pneumatosis. General surgery is consulted for admission and emergent surgical intervention. PAST MEDICAL HISTORY: See list and reviewed PAST SURGICAL HISTORY: See list and reviewed MEDICATIONS: See list and reviewed ALLERGIES: See list and reviewed SOCIAL HISTORY: See list and reviewed FAMILY HISTORY: See list and reviewed REVIEW OF ORGAN SYSTEMS: CONSTITUTIONAL: No fevers or chills. Has morbid obesity, BMI 34.8 EYES: Denies any trouble with vision. No glasses. HEENT: No difficulties with hearing. No nosebleeds. No difficulty swallowing. RESPIRATORY: Has acute shortness of breath. History of pneumonia. Chronic obstructive pulmonary disease CARDIOVASCULAR: Has hyperlipidemia including hypertensive heart disease. GASTROINTESTINAL: Denies fatty food intolerance. Recent right hemicolectomy for ascending tubulovillous mass. Gastroesophageal reflux disease. Has gallstones GENITOURINARY: Bladder repair 2. Hysterectomy. NEUROLOGICAL: Denies any numbness or tingling along the distal extremities. No seizure disorders or headaches. MUSCULOSKELETAL: back pain, stiffness or joint arthritis. SKIN: No current skin cancer. No rash. PSYCHIATRIC: Denies current depression or suicidal thoughts. ENDOCRINE: Has hypothyroidism. Has diabetes type 2, insulin-dependent with nephropathy HEME/LYMPHATIC: Denies any lumps and bumps around the neck. No recent deep venous thrombosis. ALLERGY/IMMUNOLOGY: No immunoglobulin therapy. No immune deficiencies. BREAST: Denies current breast lumps, pain or nipple discharge. PHYSICAL EXAM: VITALS: Reviewed CONSTITUTIONAL: Well developed, toxic in appearance, acute distress EYES: Conjuctivae without sclera icterus. Extraocular movements grossly intact. HEAD, EARS, NOSE, THROAT: Moist buccal mucosa. Head is atraumatic, normocephalic. Hears conversational speech. No nasal drainage. NECK: Supple. No JV distention. No thyroidomegaly. RESPIRATORY: Tachypnea. CARDIOVASCULAR: Palpable 2+ radial pulses. ABDOMEN: Diffuse distention with peritonitis. LYMPH: No neck lymphadenopathy. MUSCULOSKELETAL: No clubbing cyanosis or edema SKIN: Warm and well perfused with good skin turgor. NEUROLOGIC: Cranial nerves II through XII grossly intact. No focal or lateralizing signs. PSYCH: Appropriate affect. Alert and oriented to person, place and time. Displays appropriate insight. CLINCAL LABS: Reviewed. WBC elevated with sepsis, leukocytosis. He is still elevated at over 9.0. IMAGING: Independently reviewed. CT of abdomen and pelvis independently reviewed demonstrates diffuse distention involving the stomach, colon, rectum. This is my independent interpretation. Moderate retained stool of the sigmoid colon. RADIOLOGY: Report reviewed CT of the abdomen and pelvis demonstrates pneumatosis coli with ischemic bowel. ASSESSMENT: 1. Acute abdomen with ischemic bowel and sepsis 2. Hypertensive heart disease with congestive heart failure 3. Morbid obesity due to excess calories, BMI over 34.8 4. Acute renal failure due to dehydration 5. History of lower extremity amputee 6. Chronic obstructive pulmonary disease 7. Diabetes type 2, insulin-dependent with diabetic nephropathy 8. Gastroesophageal reflux disease 9. Hypotension due to hypovolemia 10. Lactic acidosis PLAN: 1. IV fluid hydration for hypovolemia/hypotension 2. Admission to intensive care unit due to multiple comorbidities and acute abdomen 3. Discussion of prolonged intubation, a colostomy bag, feeding tube, Garcia catheter placement, nasogastric tube placement, multiple invasive monitoring lines reviewed. 4. Inpatient hospitalization anticipated over 2 nights 5. Patient presents with multiple comorbidities and high risk for mortality and morbidity 6. Cardiology consultation for each of fibrillation and rapid ventricular response 7. Medicine consultation for general medical care 8. Emergency exploratory laparotomy described including benefits and risks of colostomy, open abdomen, prolonged intubation reviewed. ADVANCE DIRECTIVE: 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 Past Anesthesia/Blood Transfusion Reactions: No Reported Reaction Past Psychological History: Depression Smoking Status: Current every day smoker Past Alcohol Use History: None Reported Past Drug Use History: None Reported Additional Drug Use History / Comment(s): Patient states she smokes about 10 cig/day. Medications and Allergies Home Medications Medication Instructions Recorded Confirmed Type Gabapentin 800 mg PO TID 08/17/20 01/19/23 History Insulin Glargine,Hum.rec.anlog 55 unit SQ BID 08/17/20 01/19/23 History [Lantus Solostar Pen] Oxybutynin Chloride [Oxybutynin 10 mg PO DAILY 08/17/20 01/19/23 History Chloride ER] Topiramate 50 mg PO BID 08/17/20 01/19/23 History metFORMIN HCL [Glucophage] 1,000 mg PO BID 08/17/20 01/19/23 History Cyclobenzaprine [Flexeril] 10 mg PO BID PRN 09/17/21 01/19/23 History FLUoxetine HCL [PROzac] 40 mg PO DAILY@159909/17/21 01/19/23 History Fluticasone Nasal [place] [Flonase 1 - 2 spr EA NOSTRIL HS 09/17/21 01/19/23 History Nasal [place]] Albuterol Inhaler [Ventolin Hfa 2 puff INHALATION RT-QID PRN 12/14/21 01/19/23 History Inhaler] HYDROcodone/APAP 10-325MG [[place] 1 tab PO Q6H PRN 12/14/21 01/19/23 History 10-325] Levothyroxine Sodium 88 mcg PO DAILY 12/14/21 01/19/23 History QUEtiapine [SEROquel] 400 mg PO HS 12/14/21 01/19/23 History Atorvastatin [Lipitor] 40 mg PO DAILY@159906/16/22 01/19/23 History Cholecalciferol (Vitamin D3) 125 mcg PO DAILY@159906/16/22 01/19/23 History [Vitamin D3 (125 MCG = 5,000 IU)] Fluticasone Propion/Salmeterol 1 puff INHALATION RT-BID 06/16/22 01/19/23 History [Advair 500-50 Diskus] Multivitamins, Thera [Multivitamin 1 tab PO DAILY@159906/16/22 01/19/23 History (formulary)] Triamcinolone 0.1% Cream [Kenalog 1 applic TOPICAL BID PRN 06/16/22 01/19/23 History 0.1% Cream] Vitamin E (Dl,Tocopheryl Acet) 400 unit PO DAILY@1600 06/16/22 01/19/23 History [Vitamin E (400 Iu = 180 mg)] Aspirin 325 mg PO DAILY #30 tab 06/18/22 01/19/23 Rx Lactulose [Cephulac] 30 gm PO BID PRN 7 Days #14 ml 09/04/22 01/19/23 Rx Ibuprofen [Motrin] 600 mg PO TID PRN 11/18/22 01/19/23 History Loratadine 10 mg PO DAILY 11/18/22 01/19/23 History amLODIPine [Norvasc] 5 mg PO DAILY 30 Days #30 tab 11/23/22 01/19/23 Rx Famotidine [Pepcid] 20 mg PO BID 01/19/23 01/19/23 History Levocetirizine Dihydrochloride 5 mg PO BID 01/19/23 01/19/23 History [Xyzal] Mupirocin 2% Oint [Bactroban 2% 1 applic TOPICAL BID 01/19/23 01/19/23 History Oint] hydrOXYzine HCL [Atarax] 25 mg PO TID PRN 01/19/23 01/19/23 History Allergies Allergy/AdvReac Type Severity Reaction Status Date / Time No Known Allergies Allergy Verified 01/19/23 13:50 Surgical - Exam Vital Signs Temp Pulse Resp BP Pulse Ox 97.6 F 104 H 18 107/67 98 01/19/23 10:24 01/19/23 10:24 01/19/23 10:24 01/19/23 10:24 01/19/23 10:24 Results - Labs 01/19/23 10:49 01/19/23 10:49 Abnormal Lab Results - Last 24 Hours (Table) 01/19/23 01/19/23 01/19/23 Range/Units 10:39 10:49 10:49 WBC 25.6 H (3.8-10.6) k/uL MCHC 30.5 L (31.0-37.0) g/dL Neutrophils # (Manual) 22.20 H (1.3-7.7) k/uL Monocytes # (Manual) 1.28 H (0-1.0) k/uL Metamyelocytes # (Man) 0.51 H (0) k/uL APTT 20.1 L (22.0-30.0) sec Sodium (137-145) mmol/L Carbon Dioxide (22-30) mmol/L BUN (7-17) mg/dL Creatinine (0.52-1.04) mg/dL Glucose (74-99) mg/dL POC Glucose (mg/dL) 390 H (70-110) mg/dL Plasma Lactic Acid Kashif (0.7-2.0) mmol/L AST (14-36) U/L ALT (4-34) U/L Alkaline Phosphatase (38-126) U/L Urine Appearance (Clear) Urine Protein (Negative) Ur Leukocyte Esterase (Negative) Urine RBC (0-5) /hpf Urine WBC (0-5) /hpf Ur Squamous Epith Cells (0-4) /hpf Urine Bacteria (None) /hpf Hyaline Casts (0-2) /lpf Urine Mucus (None) /hpf 01/19/23 01/19/23 01/19/23 Range/Units 10:49 10:49 12:42 WBC (3.8-10.6) k/uL MCHC (31.0-37.0) g/dL Neutrophils # (Manual) (1.3-7.7) k/uL Monocytes # (Manual) (0-1.0) k/uL Metamyelocytes # (Man) (0) k/uL APTT (22.0-30.0) sec Sodium 134 L (137-145) mmol/L Carbon Dioxide 14 L (22-30) mmol/L BUN 20 H (7-17) mg/dL Creatinine 1.89 H (0.52-1.04) mg/dL Glucose 369 H (74-99) mg/dL POC Glucose (mg/dL) (70-110) mg/dL Plasma Lactic Acid Kashif 7.2 H* (0.7-2.0) mmol/L AST 57 H (14-36) U/L ALT 35 H (4-34) U/L Alkaline Phosphatase 617 H (38-126) U/L Urine Appearance Cloudy H (Clear) Urine Protein 2+ H (Negative) Ur Leukocyte Esterase Large H (Negative) Urine RBC 7 H (0-5) /hpf Urine WBC 33 H (0-5) /hpf Ur Squamous Epith Cells 12 H (0-4) /hpf Urine Bacteria Rare H (None) /hpf Hyaline Casts 7 H (0-2) /lpf Urine Mucus Rare H (None) /hpf 01/19/23 Range/Units 13:21 WBC (3.8-10.6) k/uL MCHC (31.0-37.0) g/dL Neutrophils # (Manual) (1.3-7.7) k/uL Monocytes # (Manual) (0-1.0) k/uL Metamyelocytes # (Man) (0) k/uL APTT (22.0-30.0) sec Sodium (137-145) mmol/L Carbon Dioxide (22-30) mmol/L BUN (7-17) mg/dL Creatinine (0.52-1.04) mg/dL Glucose (74-99) mg/dL POC Glucose (mg/dL) (70-110) mg/dL Plasma Lactic Acid Kashif 7.3 H* (0.7-2.0) mmol/L AST (14-36) U/L ALT (4-34) U/L Alkaline Phosphatase (38-126) U/L Urine Appearance (Clear) Urine Protein (Negative) Ur Leukocyte Esterase (Negative) Urine RBC (0-5) /hpf Urine WBC (0-5) /hpf Ur Squamous Epith Cells (0-4) /hpf Urine Bacteria (None) /hpf Hyaline Casts (0-2) /lpf Urine Mucus (None) /hpf Diabetes panel 01/19/23 Range/Units 10:49 Sodium 134 L (137-145) mmol/L Potassium 4.3 (3.5-5.1) mmol/L Chloride 100 (98-107) mmol/L Carbon Dioxide 14 L (22-30) mmol/L BUN 20 H (7-17) mg/dL Creatinine 1.89 H (0.52-1.04) mg/dL Glucose 369 H (74-99) mg/dL Calcium 10.0 (8.4-10.2) mg/dL AST 57 H (14-36) U/L ALT 35 H (4-34) U/L Alkaline Phosphatase 617 H (38-126) U/L Total Protein 7.5 (6.3-8.2) g/dL Albumin 4.3 (3.5-5.0) g/dL Calcium panel 01/19/23 Range/Units 10:49 Calcium 10.0 (8.4-10.2) mg/dL Albumin 4.3 (3.5-5.0) g/dL Pituitary panel 01/19/23 Range/Units 10:49 Sodium 134 L (137-145) mmol/L Potassium 4.3 (3.5-5.1) mmol/L Chloride 100 (98-107) mmol/L Carbon Dioxide 14 L (22-30) mmol/L BUN 20 H (7-17) mg/dL Creatinine 1.89 H (0.52-1.04) mg/dL Glucose 369 H (74-99) mg/dL Calcium 10.0 (8.4-10.2) mg/dL Adrenal panel 01/19/23 Range/Units 10:49 Sodium 134 L (137-145) mmol/L Potassium 4.3 (3.5-5.1) mmol/L Chloride 100 (98-107) mmol/L Carbon Dioxide 14 L (22-30) mmol/L BUN 20 H (7-17) mg/dL Creatinine 1.89 H (0.52-1.04) mg/dL Glucose 369 H (74-99) mg/dL Calcium 10.0 (8.4-10.2) mg/dL Total Bilirubin 0.8 (0.2-1.3) mg/dL AST 57 H (14-36) U/L ALT 35 H (4-34) U/L Alkaline Phosphatase 617 H (38-126) U/L Total Protein 7.5 (6.3-8.2) g/dL Albumin 4.3 (3.5-5.0) g/dL
[2023-01-19] MEDS ORDERED: ALBUMIN HUMAN 5% (25gm) 500 ML VIAL IVPB ONE (16:08)
[2023-01-19] MEDS ORDERED: fentaNYL (PF) 50 MCG/ML 2 ML AMP ONE (16:08)
[2023-01-19] MEDS ORDERED: INSULIN ASPART (NovoLOG) 100 UNIT/ML VIAL SQ ONE (16:08)
[2023-01-19] MEDS ORDERED: LIDOCAINE 2% INJ 20 MG/ML (2 ML VIAL) ONE (16:08)
[2023-01-19] MEDS ORDERED: HEPARIN SODIUM,PORCINE 5,000 UNIT/ML 1 ML VIAL ONE (16:08)
[2023-01-19] MEDS ORDERED: PROPOFOL 10 MG/ML 20 ML VIAL IV ONE (16:08)
[2023-01-19] MEDS ORDERED: LACTATED RINGERS 1,000 ML IV ONE ×5 (16:08→22:30)
[2023-01-19] MEDS ORDERED: PHENYLEPHRINE-0.9% NACL SYG 1,000 MCG/10 ML SYRINGE ONE (16:08)
[2023-01-19] MEDS ORDERED: SUCCINYLCHOLINE CHLORIDE 200 MG/10 ML VIAL IV ONE (16:08)
[2023-01-19 18:01] LABS: Glucose,Whole Blood 257 mg/dL (70-110)
[2023-01-19 19:02] LABS: Glucose,Whole Blood 247 mg/dL (70-110)
[2023-01-19] MEDS ORDERED: ceFAZolin 1,000 MG VIAL IVPB ONE (19:56)
[2023-01-19] MEDS ORDERED: propofoL 100 ML IV ONE (22:15)
[2023-01-19 22:38] LABS: Allen Test Performed? Yes
[2023-01-19 22:39] LABS: ABG Base Excess -19.6 mmol/L; ABG HCO3 9 mmol/L (21-25); ABG Oxygen Saturation 98.8 % (94-97); ABG PCO2 34 mmHg (35-45); ABG PH 7.06 (7.35-7.45); ABG PO2 191 mmHg (83-108)
[2023-01-19] MEDS ORDERED: SODIUM CHLORIDE 0.9% 2,000 ML IV ONE (22:53)
[2023-01-19] MEDS ORDERED: DEXTROSE 50% SYRINGE 50 ML IVP PRN (22:56)
[2023-01-19] MEDS ORDERED: INSULIN REGULAR BOLUS (FROM DRIP BAG) IV PRN (22:56)
[2023-01-19] MEDS ORDERED: Magnesium Replacement Protocol 1 EACH MISC MISCELLANE PRN (22:57)
[2023-01-19] MEDS ORDERED: Phosphorus Replacement Protoco 1 EACH MISC MISCELLANE PRN (22:57)
[2023-01-19] MEDS ORDERED: Potassium Replacement Protocol 1 EACH MISC MISCELLANE PRN (22:57)
[2023-01-19] MEDS ORDERED: ARTIFICIAL TEARS-HYPROMELLOSE DROPS 15 ML BTL BOTH EYES PRN (22:57)
[2023-01-19 23:04] LABS: Glucose,Whole Blood 169 mg/dL (70-110)
[2023-01-19] MEDS: NOREPINEPHRINE 4 MG in SODIUM CHLORIDE 0.9% 250 ML IV SCH (23:05)
--- NOTE | 2023-01-19 23:23 | P.OP ---
Date of Procedure: 01/19/23 Description of Procedure: SURGEON: MRAYURI VILLALOBOS MD PREOPERATIVE DIAGNOSES: 1. Acute abdomen ischemic colitis 2. Morbid obesity due to excess calories, BMI 34.8 3. Diabetes type 2, insulin-dependent with nephropathy 4. Hyperglycemia due to diabetes 5. Sepsis due to ischemic colitis 6. Lactic acidosis 7. Personal history chronic constipation 8. Gastroesophageal reflux disease 9. Hypertensive heart disease 10. Diabetes type 2 with neuropathy 11. Right below the knee amputation status 12. Chronic obstructive pulmonary disease 13. Hyperlipidemia POSTOPERATIVE DIAGNOSES: 1. Acute abdomen ischemic colitis with necrosis of large intestine 2. Morbid obesity due to excess calories, BMI 34.8 3. Diabetes type 2, insulin-dependent with nephropathy 4. Hyperglycemia due to diabetes 5. Sepsis due to ischemic colitis 6. Lactic acidosis 7. Personal history chronic constipation 8. Gastroesophageal reflux disease 9. Hypertensive heart disease 10. Diabetes type 2 with neuropathy 11. Right below the knee amputation status 12. Chronic obstructive pulmonary disease 13. Hyperlipidemia 14. Sigmoid volvulus with necrosis sigmoid colon 15. Peritonitis 16. Right upper quadrant abdominal adhesions 17. Cirrhosis of the liver 18. Acidotic respiratory failure requiring intubation Anesthesia: GETA Estimated Blood Loss (ml): 50 Pathology: (Aerobic and anaerobic culture peritoneal fluid, total abdominal colectomy, colotomy 3 Condition: Critical to ICU Disposition: ICU COMPLICATIONS: None. OPERATION: 1. Extensive lysis of adhesions due to prior open cholecystectomy 2. Exploratory laparotomy with total abdominal colectomy and end ileostomy 3. Decompressive colotomy 3, cecum, transverse colon, sigmoid colon 4. Abdominal peritoneal lavage 3 L normal saline 5. Placement of Diaz-Benítez drain left pelvis, round #19 6. Incisional wound VAC system 25 x 3 cm, universal PREVENA Operative Findings: 1. Moderately distended abdomen with gross dilation of entire colon 2. Long necrosis involving the entire sigmoid colon, edge necrosis transverse colon, cecum 3. Sigmoid colon with active volvulus 4. Redundant colon, 8.5 feet/102 inches resected with weight of colon 13 pounds resected with 5 pounds of stool decompress; total weight: 18 pounds 5. Firm stool along the rectum proximally for colectomy 6. Decompressive colotomy is performed along the cecum, transverse colon and sigmoid colon using pursestring suture and 60 mm purple load 7. Resected superior rectum using a curved TA stapler, Contour 8. Minimal blood loss throughout procedure 9. Turbid peritoneal fluid with features of bowel involving colon with cultures obtained 10. Macronodular cirrhosis of the liver 11. Moderate stool identified along the sigmoid colon and rectum 12. Nasogastric tube within the stomach with aspiration of feculent material 13. immediately updated at 2246 for all intra-abdominal findings INDICATIONS: The patient is a 67-year-old female who was admitted to the hospital in acute distress due to acute abdomen. CT findings consistent with ischemic bowel with pneumatosis. Emergent surgical intervention was described. Benefits and risks of colectomy and ostomy creation was described including prolonged ventilatory status. Patient agreed to proceed with surgery. Informed consent was obtained. DESCRIPTION: Patient was brought to the operating room after an epidural had been placed. She is on scheduled IV antibiotics. The patient was placed in supine position whereby general induction was performed. Abdomen had been prepped and draped in the standard sterile fashion. Garcia catheter was placed. Ioban draping was also placed to minimize any contamination to the skin. Next, using #10 blade, the abdomen was entered along the midline whereby an incision was made from the xiphoid down to the pubis. The peritoneum was entered. The colon was moderately distended. Colotomy 3 was performed involving the mid transverse colon using 3-0 silk pursestring, cecum, sigmoid colon. All colotomies were closed using 60 mm purple loads. Decompression of the colon of 5 pounds/2.2 L of stool was evacuated from the colon. Next, Buckwalter retractor was placed. The small bowel was toweled off. Along the right upper quadrant, dense adhesions were identified requiring extensive lysis of adhesions over 1 hour. Turbid peritoneal fluid was identified with aerobic and anaerobic cultures obtained. The colon was mobilized with resection at the terminal ileum, 5 cm proximal to the ileocecal valve. The colon was mobilized along the ascending hepatic flexure transverse colon and splenic flexure descending colon to the sigmoid colon. Full-thickness black bowel was then defined involving the sigmoid colon with full thickness point sized necrosis involving the cecum and transverse colon. Total abdominal colectomy was performed due to diffuse necrosis involving the entire bowel. Highly redundant cecum and ascending colon including sigmoid volvulus was identified. The colonic Niesen Popeye mobilized using Enseal device. Hemostasis was excellent. Moderate thin stool involving the sigmoid colon and rectum was palpated. The stool was milked from the proximal rectum towards the colon to allow for division using curved TA stapler, Christen. An end ileostomy was fashioned and brought through the right lower quadrant after making division of the circular point of the skin to the abdominal wall. Ileostomy was brought out. The abdomen was copiously irrigated with 3 L normal saline. The effluent was clear. Feculent material was suctioned from her stomach prior NG tube. The colon was measured at 102 inches/8-1/2 feet long. The weight of the colon was 13 pounds. Total removal of colon and stool of 18 pounds. Hemostasis was excellent throughout the case. Round #19 drain was placed along the left pelvis and exited via the left lower quadrant. 2-0 nylon was drain stitch was placed. A point along the abdominal wall and rectus muscle was selected for colostomy. Ostomy was brought out through the right lower quadrant. Cautery was taken across in tangential manner to create the skin defect of approximately quarter- size along the left lower abdomen. The fat of the skin was mobilized using a small rich. The rectus muscle was identified and scored with a cruciate scoring of electro- Bovie cautery. Next, using a muscle-splitting technique with a hemostat, the peritoneum was entered. The peritoneum was widened such that 2 fingerbreadths could easily pass for delivering and evaginating the descending portion of the colon through the skin. The midline incision was closed using double-stranded 0 PDS. Next, the subcutaneous tissue was copiously irrigated with normal saline and dilute hydrogen peroxide. For the rest of the incision, stainless steel tray were placed. The midline incision was covered and attention was brought to maturation of the end ileostomy. The staple edge was divided and removed. Next quadrant sutures at 12 o'clock, 3 o'clock, 6 o'clock, and 9 o'clock position was made using serosa, mucosal and dermal bites using 2-0 Vicryl. Interrupted 3-0 Vicryl was placed in between all quadrants sutures to completely mature the ostomy. Hemostasis was checked. A Coloplast was then placed. Optifoam dressing was placed along the drain. Combs incision wound VAC was placed, 25 x 3 cm, PREVENA. All incisions and hemostasis was checked. At the end of the procedure, needle, sponge, and instrument count had been verified correct by nursing surgical services director. Her Anna was immediately notified of the intraoperative findings including total abdominal colectomy and sepsis. Patient was transferred in critical condition to the intensive care unit intubated.
[2023-01-19] MEDS: PIPERACILLIN-TAZOBACTAM 3.375 GM in SODIUM CHLORIDE 0.9% 100 ML IVPB SCH (23:31)
[2023-01-19 23:44] LABS: ABG Base Excess -16.4 mmol/L; ABG HCO3 13 mmol/L (21-25); ABG PCO2 49 mmHg (35-45); ABG PH 7.06 (7.35-7.45); ABG PO2 285 mmHg (83-108); ABG TCO2 15 mmol/L (19-24)
[2023-01-20] MEDS ORDERED: ACETAMINOPHEN IV (For NPO) 1,000 MG in EMPTY BAG 1 BAG IVPB SCH
--- NOTE | 2023-01-20 00:37 | XR ---
EXAM: XR Chest, 1 View CLINICAL HISTORY: ITS.REASON XR Reason: Tube placement TECHNIQUE: Frontal view of the chest. COMPARISON: No relevant prior studies available. FINDINGS: Lungs: Intracardiac consolidation, correlate for pneumonia. Aspiration not excluded. Pleural space: Unremarkable. No pneumothorax. Heart: Unremarkable. No cardiomegaly. Mediastinum: Unremarkable. Bones/joints: Unremarkable. Tubes, lines and devices: Endotracheal tube terminates 4.3 cm above the aaron. IMPRESSION: 1. Intracardiac consolidation, correlate for pneumonia. Aspiration not excluded. 2. Endotracheal tube terminates 4.3 cm above the aaron.
[2023-01-20 00:54] LABS: Calcium 8.1 mg/dL (8.4-10.2); Magnesium 2.5 mg/dL (1.6-2.3); Potassium 4.8 mmol/L (3.5-5.1)
[2023-01-20] MEDS: IPRATROPIUM-ALBUTEROL 3 ML NEB INHALATION SCH ×6 (01:01→20:15)
[2023-01-20 01:06] LABS: HCT 32.6 % (34.0-46.0); HGB 10.5 gm/dL (11.4-16.0); Hypochromasia Slight; MCH 30.4 pg (25.0-35.0); MCHC 32.4 g/dL (31.0-37.0); MCV 93.9 fL (80.0-100.0); Mean Platelet Volume 8.1; Platelet Count 201 k/uL (150-450); RBC 3.47 m/uL (3.80-5.40); RDW 13.9 % (11.5-15.5)
[2023-01-20 01:40] LABS: Glucose,Whole Blood 196 mg/dL (70-110)
[2023-01-20 02:07] LABS: Band Neutrophils % 20 %; Lymphocytes # (M) 1.28 k/uL (1.0-4.8); Metamyelocytes # (M) 0.16 k/uL (0); Metamyelocytes % 1 %; Monocytes # (M) 0.48 k/uL (0-1.0); Myelocytes # (M) 0.16 k/uL (0); Myelocytes % 1 %; Neutrophils % (M) 67 %; Nucleated Red Blood Cells 0 /100 WBC (0-0); RBC Morphology Normal; Total Cells Counted 100
[2023-01-20 02:26] LABS: Glucose,Whole Blood 188 mg/dL (70-110)
[2023-01-20] MEDS: ACETAMINOPHEN IV (For NPO) 1,000 MG in EMPTY BAG 1 BAG IVPB SCH ×4 (02:35→20:18)
[2023-01-20] MEDS: DEXTROSE 5% IN WATER 1,000 ML with SODIUM BICARB (1 MEQ/ML) 100 ML IV SCH ×2 (03:31→15:35)
[2023-01-20 03:34] LABS: Glucose,Whole Blood 204 mg/dL (70-110)
[2023-01-20] MEDS: PIPERACILLIN-TAZOBACTAM 3.375 GM in SODIUM CHLORIDE 0.9% 100 ML IVPB SCH ×2 (04:58→11:39)
[2023-01-20 05:29] LABS: Glucose,Whole Blood 218 mg/dL (70-110)
[2023-01-20] MEDS: SODIUM CHLORIDE 0.9% 1,000 ML IV SCH ×2 (05:43→05:53)
[2023-01-20 05:51] LABS: Calcium 7.5 mg/dL (8.4-10.2); Magnesium 2.2 mg/dL (1.6-2.3); Potassium 5.3 mmol/L (3.5-5.1)
[2023-01-20 06:26] LABS: Glucose,Whole Blood 215 mg/dL (70-110)
[2023-01-20 06:27] LABS: HCT 34.9 % (34.0-46.0); HGB 11.2 gm/dL (11.4-16.0); Hypochromasia Slight; Mean Platelet Volume 7.5; Platelet Count 205 k/uL (150-450); RBC 3.72 m/uL (3.80-5.40); WBC 19.5 k/uL (3.8-10.6)
[2023-01-20] MEDS: INSULIN ASPART (NovoLOG) 100 UNIT/ML VIAL SQ SCH ×4 (06:41→20:18)
[2023-01-20 06:49] LABS: ABG HCO3 16 mmol/L (21-25); ABG PCO2 54 mmHg (35-45); ABG PH 7.09 (7.35-7.45); ABG PO2 187 mmHg (83-108); Allen Test Performed? Yes
[2023-01-20 06:50] LABS: ABG TCO2 16 mmol/L (19-24)
[2023-01-20] MEDS ORDERED: CISATRACURIUM 2 MG/ML 5 ML VIAL IV ONE (07:13)
--- NOTE | 2023-01-20 07:46 | XR ---
EXAMINATION TYPE: XR chest 1V portable DATE OF EXAM: 01/20/2023 7:39 AM COMPARISON: Chest radiographs from 01/19/2023 TECHNIQUE: XR chest 1V portable Frontal view of the chest. CLINICAL INDICATION:Female, 67 years old with history of Central line placement; FINDINGS: Lungs/Pleura: Prominent interstitial lung markings are seen scattered throughout the lungs. No eviden ce of focal consolidation, pneumothorax or pleural effusion. Pulmonary vascularity: Unremarkable. Heart/mediastinum: Cardiomediastinal silhouette is enlarged and stable. Musculoskeletal: No acute osseous pathology. Other findings: None Lines/Tubes: Endotracheal tube with distal tip 3.5 cm above the aaron. Nasogastric tube with its distal tip and side-port projecting under the diaphragm and projecting over the gastric lumen. Left central venous catheter with tip at the superior cavoatrial junction. IMPRESSION: 1. Left central Venous catheter with tip in appropriate position. 2. Support tubes in appropriate position. Stable exam with cardiomegaly and scattered interstitial i nfiltrate. 3.
--- NOTE | 2023-01-20 08:00 | PCN ---
PROCEDURE NOTE PROCEDURE PERFORMED: Left subclavian triple-lumen catheter. PREOPERATIVE DIAGNOSES: Hypotension, administration of fluids and pressors, sepsis. POSTOPERATIVE DIAGNOSIS: Hypotension, administration of fluids and pressors, sepsis. OPERATORS: Dr. Dewitt and Dr. Muñoz. INDICATIONS: Hemodynamic monitoring/Intravenous access. A time-out was completed verifying correct patient, procedure, site, positioning, and implant(s) or special equipment if applicable. There was informed consent, universal timeout. The patient's procedure took place in room numbers 264. DESCRIPTION OF PROCEDURE: The patient was placed in a dependent position appropriate for triple lumen catheter placement based on the vein to be cannulated. The patient's left shoulder was prepped and draped in sterile fashion. 1% Lidocaine was used to anesthetize the surrounding skin area. A triple lumen 9F Cordis catheter was introduced into the left subclavian vein using Seldinger technique. The catheter was threaded smoothly over the guide wire and appropriate blood return was obtained. Each lumen of the catheter was evacuated of air and flushed with sterile saline. The catheter was then sutured in place to the skin and a sterile dressing applied by the nurse. Perfusion to the extremity distal to the point of catheter insertion was checked and found to be adequate. There were no immediate complications. There was good blood return from all 3 ports. The patient tolerated the procedure well. A chest x-ray was ordered. MMODL / IJN: [id number] /
--- NOTE | 2023-01-20 08:49 | P.CONS ---
History of Present Illness - History of Present Illness This is a pleasant 67 years old female with multiple medical problems including COPD, Diabetes Mellitus, Hypertension. His pain is Dr. Kennedy which we are covering his service over the weekend. Patient was admitted with acute abdomen on 01/19. Patient was admitted to the general surgery service for emergent surgical intervention, and patient was admitted to the ICU in critical condition. We are consulted for general medical management. patient was taken for emergent surgery including emergent exploratory laparotomy, with lysis of adhesions and total abdominal colectomy and end ileostomy. Today is postoperative day #1. As per staff she has prolonged surgery more than 8 hours. She came to the ICU last night and currently she is intubated and sedated on mechanical ventilation. Overnight she needed a little pressors and currently she is on levophed 0.03 Vitals reviewed, blood pressure 90/51, heart rate 109, breathing rate is 18. Patient is afebrile. Labs: Leukocytosis 25,000, down to 19,000. Hemoglobin 11 point Creatinine elevated troponin. Liver enzymes mildly elevated. Radha 7.0, lactic acidosis 7.[address] of the abdomen and pelvis showing pancolonic dilatation up to 9.4 cm, mesenteric edema and colonic pneumatosis. No free air. Patient was already started on antibiotics and IV fluids in the emergency room. 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 Medications and Allergies Home Medications Medication Instructions Recorded Confirmed Type Gabapentin 800 mg PO TID 08/17/20 01/19/23 History Insulin Glargine,Hum.rec.anlog 55 unit SQ BID 08/17/20 01/19/23 History [Lantus Solostar Pen] Oxybutynin Chloride [Oxybutynin 10 mg PO DAILY 08/17/20 01/19/23 History Chloride ER] Topiramate 50 mg PO BID 08/17/20 01/19/23 History metFORMIN HCL [Glucophage] 1,000 mg PO BID 08/17/20 01/19/23 History Cyclobenzaprine [Flexeril] 10 mg PO BID PRN 09/17/21 01/19/23 History FLUoxetine HCL [PROzac] 40 mg PO DAILY@1600 09/17/21 01/19/23 History Fluticasone Nasal [place] [Flonase 1 - 2 spr EA NOSTRIL HS 09/17/21 01/19/23 History Nasal [place]] Albuterol Inhaler [Ventolin Hfa 2 puff INHALATION RT-QID PRN 12/14/21 01/19/23 History Inhaler] HYDROcodone/APAP 10-325MG [Burt 1 tab PO Q6H PRN 12/14/21 01/19/23 History 10-325] Levothyroxine Sodium 88 mcg PO DAILY 12/14/21 01/19/23 History QUEtiapine [SEROquel] 400 mg PO HS 12/14/21 01/19/23 History Atorvastatin [Lipitor] 40 mg PO DAILY@159906/16/22 01/19/23 History Cholecalciferol (Vitamin D3) 125 mcg PO DAILY@159906/16/22 01/19/23 History [Vitamin D3 (125 MCG = 5,000 IU)] Fluticasone Propion/Salmeterol 1 puff INHALATION RT-BID 06/16/22 01/19/23 History [Advair 500-50 Diskus] Multivitamins, Thera [Multivitamin 1 tab PO DAILY@159906/16/22 01/19/23 History (formulary)] Triamcinolone 0.1% Cream [Kenalog 1 applic TOPICAL BID PRN 06/16/22 01/19/23 History 0.1% Cream] Vitamin E (Dl,Tocopheryl Acet) 400 unit PO DAILY@159906/16/22 01/19/23 History [Vitamin E (400 Iu = 180 mg)] Aspirin 325 mg PO DAILY #30 tab 06/18/22 01/19/23 Rx Lactulose [Cephulac] 30 gm PO BID PRN 7 Days #14 ml 09/04/22 01/19/23 Rx Ibuprofen [Motrin] 600 mg PO TID PRN 11/18/22 01/19/23 History Loratadine 10 mg PO DAILY 11/18/22 01/19/23 History amLODIPine [Norvasc] 5 mg PO DAILY 30 Days #30 tab 11/23/22 01/19/23 Rx Famotidine [Pepcid] 20 mg PO BID 01/19/23 01/19/23 History Levocetirizine Dihydrochloride 5 mg PO BID 01/19/23 01/19/23 History [Xyzal] Mupirocin 2% Oint [Bactroban 2% 1 applic TOPICAL BID 01/19/23 01/19/23 History Oint] hydrOXYzine HCL [Atarax] 25 mg PO TID PRN 01/19/23 01/19/23 History Allergies Allergy/AdvReac Type Severity Reaction Status Date / Time No Known Allergies Allergy Verified 01/19/23 13:50 Physical Exam Vitals: Vital Signs Temp Pulse Resp BP Pulse Ox FiO2 01/20/23 06:37 40 01/20/23 06:00 109 H 16 109/52 100 01/20/23 05:45 110 H 19 103/51 100 01/20/23 05:30 109 H 18 104/53 99 01/20/23 05:15 109 H 18 99/54 99 01/20/23 05:00 109 H 18 112/50 99 01/20/23 04:45 110 H 18 107/54 99 01/20/23 04:30 109 H 18 104/54 100 01/20/23 04:15 108 H 18 107/57 99 01/20/23 04:00 97.8 F 107 H 18 109/53 100 70 01/20/23 03:56 108 H 01/20/23 03:48 109 H 01/20/23 03:45 108 H 18 106/51 100 01/20/23 03:42 60 01/20/23 03:30 108 H 18 108/52 100 01/20/23 03:15 107 H 18 110/53 99 01/20/23 03:00 108 H 18 112/55 100 01/20/23 02:45 108 H 19 111/55 100 01/20/23 02:30 107 H 18 107/55 99 01/20/23 02:16 108 H 17 113/53 99 01/20/23 02:00 108 H 18 117/55 99 01/20/23 01:45 108 H 18 113/53 99 01/20/23 01:30 108 H 18 118/54 99 01/20/23 01:15 108 H 18 112/55 99 01/20/23 01:11 110 H 01/20/23 01:08 70 01/20/23 01:05 108 H 01/20/23 01:00 107 H 18 100 01/20/23 00:45 108 H 18 117/55 99 01/20/23 00:34 70 01/20/23 00:30 108 H 18 120/54 99 01/20/23 00:29 70 01/20/23 00:26 107 H 18 120/54 99 01/20/23 00:00 97.6 F 107 H 18 115/52 99 100 01/19/23 23:30 105 H 18 103/49 100 01/19/23 23:00 97.8 F 104 H 18 123/55 55 01/19/23 15:00 112 H 21 112/68 93 L 01/19/23 14:30 113 H 26 H 115/70 94 L 01/19/23 14:00 112 H 24 132/73 96 01/19/23 13:30 109 H 19 96 01/19/23 13:00 116/96 01/19/23 12:30 109 H 30 H 113/58 96 01/19/23 12:00 113/58 01/19/23 11:30 105 H 29 H 105/63 01/19/23 11:00 104 H 30 H 107/67 98 01/19/23 10:30 105 H 25 H 97 01/19/23 10:29 105 H 28 H 01/19/23 10:24 97.6 F 104 H 18 107/67 98 Intake and Output 01/19/23 01/20/23 01/20/23 22:59 06:59 14:59 Intake Total 3800 2607.775 Output Total 350 900 Balance 3450 1707.775 Intake: IV 3800 2446 ACETAMINOPHEN IV (For NPO 100 ) 1,000 mg In Empty Bag 1 bag @ 400 mls/hr IVPB Q6H [facility] Rx#:[id number] Dextrose 5% in Water 1, 225 000 ml @ 75 mls/hr IV . [id number] [facility] with Sodium Bicarb (1 Meq/ml) 100 ml Rx#:[id number] Piperacillin-Tazobactam 3 100 .375 gm In Sodium Chloride 0.9% 100 ml @ 25 mls/hr IVPB Q8H [facility] Rx#: [id number] Sodium Chloride 0.9% 1, 1000 000 ml @ 999 mls/hr IV . Q1H1M [facility] Rx#:[id number] Sodium Chloride 0.9% 1, 1000 000 ml @ 999 mls/hr IV . Q1H1M [facility] Rx#:[id number] pressure bag 21 Intake, IV Titration 161.775 Amount Norepinephrine 4 mg In 102.391 Sodium Chloride 0.9% 250 ml @ 0.03 MCG/KG/MIN 9. 851 mls/hr IV .Q24H [facility] Rx#:[id number] propofoL 1,000 mg In 59.384 Empty Bag 1 bag @ 15 MCG/ KG/MIN 7.757 mls/hr IV . [id number] [facility] Rx#:[id number] Output: Drainage 130 Left Lower Abdomen 130 Urine 300 770 Estimated Blood Loss 50 Other: Voiding Method Indwelling Catheter Weight 90.8 kg ABP, PAP, CO, CI - Last 8 Hours Arterial Blood Pressure 125/47 Arterial Blood Pressure 121/44 Arterial Blood Pressure 121/43 Arterial Blood Pressure 117/43 Arterial Blood Pressure 130/45 Arterial Blood Pressure 127/44 Arterial Blood Pressure 124/44 Arterial Blood Pressure 133/46 Arterial Blood Pressure 125/45 Arterial Blood Pressure 128/47 Arterial Blood Pressure 128/46 Arterial Blood Pressure 134/48 Arterial Blood Pressure 135/53 Arterial Blood Pressure 132/53 Arterial Blood Pressure 128/53 Arterial Blood Pressure 129/44 Arterial Blood Pressure 130/44 Arterial Blood Pressure 132/44 Arterial Blood Pressure 141/44 Arterial Blood Pressure 130/43 Arterial Blood Pressure 127/41 Arterial Blood Pressure 133/42 Arterial Blood Pressure 128/41 Arterial Blood Pressure 135/42 Arterial Blood Pressure 126/40 -GENERAL: The patient is Intubated and sedated on mechanical ventilation HEENT: Pupils are round and equally reacting to light. EOMI. No scleral icterus. No conjunctival pallor. Normocephalic, atraumatic. No pharyngeal erythema. No thyromegaly. CARDIOVASCULAR: S1 and S2 present. No murmurs, rubs, or gallops. PULMONARY: Chest is clear to auscultation, no wheezing or crackles. -ABDOMEN: Soft, tender and tense at surgical site, normoactive bowel sounds. No palpable organomegaly. Surgical wound is closed with addressed in a Place, dressing is applied MUSCULOSKELETAL: No joint swelling or deformity. EXTREMITIES: No cyanosis, clubbing, or pedal edema. NEUROLOGICAL: Gross neurological examination did not reveal any focal deficits. SKIN: No rashes. no petechiae. Results CBC & Chem 7: 01/20/23 05:28 01/20/23 05:28 Labs: Abnormal Lab Results - Last 24 Hours (Table) 01/19/23 01/19/23 01/19/23 Range/Units 10:39 10:49 10:49 WBC 25.6 H (3.8-10.6) k/uL RBC (3.80-5.40) m/uL Hgb (11.4-16.0) gm/dL Hct (34.0-46.0) % MCHC 30.5 L (31.0-37.0) g/dL Neutrophils # (Manual) 22.20 H (1.3-7.7) k/uL Monocytes # (Manual) 1.28 H (0-1.0) k/uL Metamyelocytes # (Man) 0.51 H (0) k/uL Myelocytes # (Manual) (0) k/uL APTT 20.1 L (22.0-30.0) sec ABG pH (7.35-7.45) ABG pCO2 (35-45) mmHg ABG pO2 (83-108) mmHg ABG HCO3 (21-25) mmol/L ABG Total CO2 (19-24) mmol/L ABG O2 Saturation (94-97) % Sodium (137-145) mmol/L Potassium (3.5-5.1) mmol/L Carbon Dioxide (22-30) mmol/L BUN (7-17) mg/dL Creatinine (0.52-1.04) mg/dL Glucose (74-99) mg/dL POC Glucose (mg/dL) 390 H (70-110) mg/dL Plasma Lactic Acid Kashif (0.7-2.0) mmol/L Calcium (8.4-10.2) mg/dL Magnesium (1.6-2.3) mg/dL AST (14-36) U/L ALT (4-34) U/L Alkaline Phosphatase (38-126) U/L Urine Appearance (Clear) Urine Protein (Negative) Ur Leukocyte Esterase (Negative) Urine RBC (0-5) /hpf Urine WBC (0-5) /hpf Ur Squamous Epith Cells (0-4) /hpf Urine Bacteria (None) /hpf Hyaline Casts (0-2) /lpf Urine Mucus (None) /hpf 01/19/23 01/19/23 01/19/23 Range/Units 10:49 10:49 12:42 WBC (3.8-10.6) k/uL RBC (3.80-5.40) m/uL Hgb (11.4-16.0) gm/dL Hct (34.0-46.0) % MCHC (31.0-37.0) g/dL Neutrophils # (Manual) (1.3-7.7) k/uL Monocytes # (Manual) (0-1.0) k/uL Metamyelocytes # (Man) (0) k/uL Myelocytes # (Manual) (0) k/uL APTT (22.0-30.0) sec ABG pH (7.35-7.45) ABG pCO2 (35-45) mmHg ABG pO2 (83-108) mmHg ABG HCO3 (21-25) mmol/L ABG Total CO2 (19-24) mmol/L ABG O2 Saturation (94-97) % Sodium 134 L (137-145) mmol/L Potassium (3.5-5.1) mmol/L Carbon Dioxide 14 L (22-30) mmol/L BUN 20 H (7-17) mg/dL Creatinine 1.89 H (0.52-1.04) mg/dL Glucose 369 H (74-99) mg/dL POC Glucose (mg/dL) (70-110) mg/dL Plasma Lactic Acid Kashif 7.2 H* (0.7-2.0) mmol/L Calcium (8.4-10.2) mg/dL Magnesium (1.6-2.3) mg/dL AST 57 H (14-36) U/L ALT 35 H (4-34) U/L Alkaline Phosphatase 617 H (38-126) U/L Urine Appearance Cloudy H (Clear) Urine Protein 2+ H (Negative) Ur Leukocyte Esterase Large H (Negative) Urine RBC 7 H (0-5) /hpf Urine WBC 33 H (0-5) /hpf Ur Squamous Epith Cells 12 H (0-4) /hpf Urine Bacteria Rare H (None) /hpf Hyaline Casts 7 H (0-2) /lpf Urine Mucus Rare H (None) /hpf 01/19/23 01/19/23 01/19/23 Range/Units 13:21 17:56 18:47 WBC (3.8-10.6) k/uL RBC (3.80-5.40) m/uL Hgb (11.4-16.0) gm/dL Hct (34.0-46.0) % MCHC (31.0-37.0) g/dL Neutrophils # (Manual) (1.3-7.7) k/uL Monocytes # (Manual) (0-1.0) k/uL Metamyelocytes # (Man) (0) k/uL Myelocytes # (Manual) (0) k/uL APTT (22.0-30.0) sec ABG pH (7.35-7.45) ABG pCO2 (35-45) mmHg ABG pO2 (83-108) mmHg ABG HCO3 (21-25) mmol/L ABG Total CO2 (19-24) mmol/L ABG O2 Saturation (94-97) % Sodium (137-145) mmol/L Potassium (3.5-5.1) mmol/L Carbon Dioxide (22-30) mmol/L BUN (7-17) mg/dL Creatinine (0.52-1.04) mg/dL Glucose (74-99) mg/dL POC Glucose (mg/dL) 257 H 247 H (70-110) mg/dL Plasma Lactic Acid Kashif 7.3 H* (0.7-2.0) mmol/L Calcium (8.4-10.2) mg/dL Magnesium (1.6-2.3) mg/dL AST (14-36) U/L ALT (4-34) U/L Alkaline Phosphatase (38-126) U/L Urine Appearance (Clear) Urine Protein (Negative) Ur Leukocyte Esterase (Negative) Urine RBC (0-5) /hpf Urine WBC (0-5) /hpf Ur Squamous Epith Cells (0-4) /hpf Urine Bacteria (None) /hpf Hyaline Casts (0-2) /lpf Urine Mucus (None) /hpf 01/19/23 01/19/23 01/19/23 Range/Units 21:30 23:02 23:26 WBC (3.8-10.6) k/uL RBC (3.80-5.40) m/uL Hgb (11.4-16.0) gm/dL Hct (34.0-46.0) % MCHC (31.0-37.0) g/dL Neutrophils # (Manual) (1.3-7.7) k/uL Monocytes # (Manual) (0-1.0) k/uL Metamyelocytes # (Man) (0) k/uL Myelocytes # (Manual) (0) k/uL APTT (22.0-30.0) sec ABG pH 7.06 L* 7.06 L* (7.35-7.45) ABG pCO2 34 L 49 H (35-45) mmHg ABG pO2 191 H 285 H (83-108) mmHg ABG HCO3 9 L* 13 L (21-25) mmol/L ABG Total CO2 15 L (19-24) mmol/L ABG O2 Saturation 98.8 H 99.0 H (94-97) % Sodium (137-145) mmol/L Potassium (3.5-5.1) mmol/L Carbon Dioxide (22-30) mmol/L BUN (7-17) mg/dL Creatinine (0.52-1.04) mg/dL Glucose (74-99) mg/dL POC Glucose (mg/dL) 169 H (70-110) mg/dL Plasma Lactic Acid Kashif (0.7-2.0) mmol/L Calcium (8.4-10.2) mg/dL Magnesium (1.6-2.3) mg/dL AST (14-36) U/L ALT (4-34) U/L Alkaline Phosphatase (38-126) U/L Urine Appearance (Clear) Urine Protein (Negative) Ur Leukocyte Esterase (Negative) Urine RBC (0-5) /hpf Urine WBC (0-5) /hpf Ur Squamous Epith Cells (0-4) /hpf Urine Bacteria (None) /hpf Hyaline Casts (0-2) /lpf Urine Mucus (None) /hpf 01/20/23 01/20/23 01/20/23 Range/Units 00:10 00:10 00:10 WBC 16.0 H (3.8-10.6) k/uL RBC 3.47 L (3.80-5.40) m/uL Hgb 10.5 L (11.4-16.0) gm/dL Hct 32.6 L (34.0-46.0) % MCHC (31.0-37.0) g/dL Neutrophils # (Manual) 13.90 H (1.3-7.7) k/uL Monocytes # (Manual) (0-1.0) k/uL Metamyelocytes # (Man) 0.16 H (0) k/uL Myelocytes # (Manual) 0.16 H (0) k/uL APTT (22.0-30.0) sec ABG pH (7.35-7.45) ABG pCO2 (35-45) mmHg ABG pO2 (83-108) mmHg ABG HCO3 (21-25) mmol/L ABG Total CO2 (19-24) mmol/L ABG O2 Saturation (94-97) % Sodium 136 L (137-145) mmol/L Potassium (3.5-5.1) mmol/L Carbon Dioxide 11 L (22-30) mmol/L BUN 22 H (7-17) mg/dL Creatinine 2.21 H (0.52-1.04) mg/dL Glucose 167 H (74-99) mg/dL POC Glucose (mg/dL) (70-110) mg/dL Plasma Lactic Acid Kashif 7.1 H* (0.7-2.0) mmol/L Calcium 8.1 L (8.4-10.2) mg/dL Magnesium 2.5 H (1.6-2.3) mg/dL AST (14-36) U/L ALT (4-34) U/L Alkaline Phosphatase (38-126) U/L Urine Appearance (Clear) Urine Protein (Negative) Ur Leukocyte Esterase (Negative) Urine RBC (0-5) /hpf Urine WBC (0-5) /hpf Ur Squamous Epith Cells (0-4) /hpf Urine Bacteria (None) /hpf Hyaline Casts (0-2) /lpf Urine Mucus (None) /hpf 01/20/23 01/20/23 01/20/23 Range/Units 01:38 02:24 03:27 WBC (3.8-10.6) k/uL RBC (3.80-5.40) m/uL Hgb (11.4-16.0) gm/dL Hct (34.0-46.0) % MCHC (31.0-37.0) g/dL Neutrophils # (Manual) (1.3-7.7) k/uL Monocytes # (Manual) (0-1.0) k/uL Metamyelocytes # (Man) (0) k/uL Myelocytes # (Manual) (0) k/uL APTT (22.0-30.0) sec ABG pH (7.35-7.45) ABG pCO2 (35-45) mmHg ABG pO2 (83-108) mmHg ABG HCO3 (21-25) mmol/L ABG Total CO2 (19-24) mmol/L ABG O2 Saturation (94-97) % Sodium (137-145) mmol/L Potassium (3.5-5.1) mmol/L Carbon Dioxide (22-30) mmol/L BUN (7-17) mg/dL Creatinine (0.52-1.04) mg/dL Glucose (74-99) mg/dL POC Glucose (mg/dL) 196 H 188 H (70-110) mg/dL Plasma Lactic Acid Kashif 4.6 H* (0.7-2.0) mmol/L Calcium (8.4-10.2) mg/dL Magnesium (1.6-2.3) mg/dL AST (14-36) U/L ALT (4-34) U/L Alkaline Phosphatase (38-126) U/L Urine Appearance (Clear) Urine Protein (Negative) Ur Leukocyte Esterase (Negative) Urine RBC (0-5) /hpf Urine WBC (0-5) /hpf Ur Squamous Epith Cells (0-4) /hpf Urine Bacteria (None) /hpf Hyaline Casts (0-2) /lpf Urine Mucus (None) /hpf 01/20/23 01/20/23 01/20/23 Range/Units 03:33 05:27 05:28 WBC (3.8-10.6) k/uL RBC (3.80-5.40) m/uL Hgb (11.4-16.0) gm/dL Hct (34.0-46.0) % MCHC (31.0-37.0) g/dL Neutrophils # (Manual) (1.3-7.7) k/uL Monocytes # (Manual) (0-1.0) k/uL Metamyelocytes # (Man) (0) k/uL Myelocytes # (Manual) (0) k/uL APTT (22.0-30.0) sec ABG pH (7.35-7.45) ABG pCO2 (35-45) mmHg ABG pO2 (83-108) mmHg ABG HCO3 (21-25) mmol/L ABG Total CO2 (19-24) mmol/L ABG O2 Saturation (94-97) % Sodium 134 L (137-145) mmol/L Potassium 5.3 H (3.5-5.1) mmol/L Carbon Dioxide 13 L (22-30) mmol/L BUN 23 H (7-17) mg/dL Creatinine 2.18 H (0.52-1.04) mg/dL Glucose 210 H (74-99) mg/dL POC Glucose (mg/dL) 204 H 218 H (70-110) mg/dL Plasma Lactic Acid Kashif (0.7-2.0) mmol/L Calcium 7.5 L (8.4-10.2) mg/dL Magnesium (1.6-2.3) mg/dL AST (14-36) U/L ALT (4-34) U/L Alkaline Phosphatase (38-126) U/L Urine Appearance (Clear) Urine Protein (Negative) Ur Leukocyte Esterase (Negative) Urine RBC (0-5) /hpf Urine WBC (0-5) /hpf Ur Squamous Epith Cells (0-4) /hpf Urine Bacteria (None) /hpf Hyaline Casts (0-2) /lpf Urine Mucus (None) /hpf 01/20/23 01/20/23 01/20/23 Range/Units 05:28 05:53 06:25 WBC 19.5 H (3.8-10.6) k/uL RBC 3.72 L (3.80-5.40) m/uL Hgb 11.2 L (11.4-16.0) gm/dL Hct (34.0-46.0) % MCHC (31.0-37.0) g/dL Neutrophils # (Manual) (1.3-7.7) k/uL Monocytes # (Manual) (0-1.0) k/uL Metamyelocytes # (Man) (0) k/uL Myelocytes # (Manual) (0) k/uL APTT (22.0-30.0) sec ABG pH 7.09 L* (7.35-7.45) ABG pCO2 54 H (35-45) mmHg ABG pO2 187 H (83-108) mmHg ABG HCO3 16 L (21-25) mmol/L ABG Total CO2 16 L (19-24) mmol/L ABG O2 Saturation 99.0 H (94-97) % Sodium (137-145) mmol/L Potassium (3.5-5.1) mmol/L Carbon Dioxide (22-30) mmol/L BUN (7-17) mg/dL Creatinine (0.52-1.04) mg/dL Glucose (74-99) mg/dL POC Glucose (mg/dL) 215 H (70-110) mg/dL Plasma Lactic Acid Kashif (0.7-2.0) mmol/L Calcium (8.4-10.2) mg/dL Magnesium (1.6-2.3) mg/dL AST (14-36) U/L ALT (4-34) U/L Alkaline Phosphatase (38-126) U/L Urine Appearance (Clear) Urine Protein (Negative) Ur Leukocyte Esterase (Negative) Urine RBC (0-5) /hpf Urine WBC (0-5) /hpf Ur Squamous Epith Cells (0-4) /hpf Urine Bacteria (None) /hpf Hyaline Casts (0-2) /lpf Urine Mucus (None) /hpf Assessment and Plan Assessment: Acute abdomen secondary to ischemic bowel status emergent post exploratory laparotomy, total colectomy and end ileostomy Severe Sepsis and septic shock Acute hypoxic respiratory failure requiring intubation and mechanical ventilation Metabolic acidosis Lactic acidosis Acute kidney injury Metabolic encephalopathy secondary to above History of COPD Diabetes mellitus History of hypertension History of ulcerative colitis status post back surgery History of depression History of nicotine dependence Plan: Patient already on antibiotics and IV fluids, recommended to continue with the same Zosyn and sodium bicarb Continue with intubation and mechanical ventilation with pulmonary/critical care team on the case Continue with pressors, currently on levophed Postop care for surgery primary team Pulmonary/critical care team consult on the case Multiple acidosis, monitor creatinine and labs. continue with insulin sliding scale and monitor sugar closely Labs and medication were reviewed. Monitor labs and vitals. DVT and GI prophylaxis. Further recommendations as per clinical course of the patient DVT prophylaxis: Mechanical, the use of anticoagulation is deferred to surgery team GI Prophylaxis: Protonix Prognosis is very guarded Discussed with the staff thank you for consulting us
[2023-01-20 09:01] LABS: Band Neutrophils % 23 %; Lymphocytes # (M) 0.78 k/uL (1.0-4.8); Metamyelocytes % 1 %; Monocytes # (M) 1.17 k/uL (0-1.0); Neutrophils % (M) 67 %; Nucleated Red Blood Cells 0 /100 WBC (0-0); Total Cells Counted 200
--- NOTE | 2023-01-20 09:03 | P.PN ---
Subjective Progress Note Date: 01/20/23 Principal diagnosis: Abdominal pain. Pulmonary/critical care consult dated 01/19/2023. 67-year-old female seen in the emergency room, by Dr. Montoya. She came into the emergency room, today, January 19, complaining of abdominal pain. Been going on for about 7-10 days. She apparently has not had a bowel movement for about 7 days according to her and her . Her apparently found her on the floor today. He is not sure how long she was on the ground. The patient denied any vomiting, but she did have nausea. There was no diarrhea. The patient apparently has had this problem in the past, and was supposed to have a colonoscopy with one of the surgeons but that never took place. She was admitted last in November, for hyponatremia. Her primary care physician is Dr. Kennedy. We were consulted, because the surgeon felt that she might need an ICU bed. Currently, she is on room air. An IV is connected. She does have a history of COPD, and diabetes. She also has a history of hypertension. She is a daily tobacco user, and she apparently does also vape. White count 25.6, with a normal hemoglobin, hematocrit, and platelet count. The patient's sodium is 134, potassium 4.3, chlorides 100, CO2 14, anion gap 20, BUN 20, creatinine 1.89. Glucose 69. Lactic acid 7.2. Repeat 7.3. The urine is yellow and cloudy with 2+ protein. Leukocyte esterase is large positive. She has 33 WBCs, and rare bacteria. Chest x-ray shows small lung volumes, and some basilar atelectasis. No acute abnormality noted. Computed tomography scan of the belly shows martinez-colonic distention, and possible ischemic colitis. Progress note dated 01/20/2023. Abdominal pain and abdominal distention. She ended up going to the operating room yesterday, and having exploratory laparotomy, lysis of adhesions, total colectomy, ileostomy, placement of Diaz-Benítez drains, and placement of the wound VAC. The patient is currently in the intensive care unit, on the mechanical ventilator. Settings include the volume assist control, rate 18, tidal volume 400, FiO2 40%, and PEEP of 5. Gases show pO2 of 97, pCO2 of 54, and a pH is 7.1. The patient's rate was increased from 18 to 24 breaths per minute, to help with the respiratory acidosis component of her acid-base disturbance. In addition, the patient is on propofol at 25 mcg/kg/m, norepinephrine at 3.6 mcg/m, and is getting a sodium bicarbonate drip, with 2 ampules of sodium bicarbonate and D5W at 75 mL an hour. Today is postop day #1. White count 19.5, hemoglobin 11.2, hematocrit 34.9, with a normal platelet count. Sodium 134, potassium 5.3, chlorides 106, CO2 13, anion gap 15, BUN 23, and creatinine 2.18. Chest x-ray shows a properly placed left subclavian triple-lumen catheter. This is in the area of the superior vena cava/right atrium junction. The rest of the x-ray looks fine. Objective - Vital Signs Vital signs: Vital Signs Temp 97.8 F 01/20/23 04:00 Pulse 108 H 01/20/23 08:21 Resp 18 01/20/23 07:00 BP 94/51 01/20/23 07:00 Pulse Ox 98 01/20/23 07:00 FiO2 40 01/20/23 08:02 Intake & Output 01/19/23 01/20/23 01/20/23 18:59 06:59 18:59 Intake Total 3000 3407.775 114.153 Output Total 1250 55 Balance 3000 2157.775 59.153 Weight 86.183 kg 90.8 kg Intake: IV 3000 3246 78 ACETAMINOPHEN IV (For NPO 100 ) 1,000 mg In Empty Bag 1 bag @ 400 mls/hr IVPB Q6H MAYA Rx#:[id number] Dextrose 5% in Water 1, 225 75 000 ml @ 75 mls/hr IV . [id number] MAYA with Sodium Bicarb (1 Meq/ml) 100 ml Rx#:[id number] Piperacillin-Tazobactam 3 100 .375 gm In Sodium Chloride 0.9% 100 ml @ 25 mls/hr IVPB Q8H [facility] Rx#: [id number] Sodium Chloride 0.9% 1, 1000 000 ml @ 999 mls/hr IV . Q1H1M ONE Rx#:[id number] Sodium Chloride 0.9% 1, 1000 000 ml @ 999 mls/hr IV . Q1H1M ONE Rx#:[id number] pressure bag 21 3 Intake, IV Titration 161.775 36.153 Amount Norepinephrine 4 mg In 102.391 17.840 Sodium Chloride 0.9% 250 ml @ 0.03 MCG/KG/MIN 9. 851 mls/hr IV .Q24H [facility]A Rx#:[id number] propofoL 1,000 mg In 59.384 18.313 Empty Bag 1 bag @ 15 MCG/ KG/MIN 7.757 mls/hr IV . [id number] [facility]A Rx#:[id number] Output: Drainage 130 Left Lower Abdomen 130 Urine 1070 55 Estimated Blood Loss 50 Other: Voiding Method Indwelling Catheter ABP, PAP, CO, CI - Last Documented Arterial Blood Pressure 110/43 - Exam No acute distress, sedated, with an orally placed endotracheal tube. HEENT examination is grossly unremarkable. Neck supple. Full range of motion. No adenopathy thyromegaly or neck vein distention. Cardiovascular examination reveals regular rhythm rate. S1-S2 normal. No S3 or S4. No discernible murmur noted. Heart sounds are distant. Heart rate is 108 bpm. Lungs reveal scattered bilateral rhonchi, which are moderate in severity. No wheezes or crackles. Saturations are 98%. Breath sounds are equal bilaterally. Abdomen soft, with ileostomy noted. Diaz-Benítez drains are noted. Wound VAC is noted. Extremities are intact. No cyanosis clubbing or edema. Skin is without rash or lesion. Neurologic examination cannot be evaluated at this time. - Labs CBC & Chem 7: 01/20/23 05:28 01/20/23 05:28 Labs: Abnormal Lab Results - Last 24 Hours (Table) 01/19/23 01/19/23 01/19/23 Range/Units 10:39 10:49 10:49 WBC 25.6 H (3.8-10.6) k/uL RBC (3.80-5.40) m/uL Hgb (11.4-16.0) gm/dL Hct (34.0-46.0) % MCHC 30.5 L (31.0-37.0) g/dL Neutrophils # (Manual) 22.20 H (1.3-7.7) k/uL Monocytes # (Manual) 1.28 H (0-1.0) k/uL Metamyelocytes # (Man) 0.51 H (0) k/uL Myelocytes # (Manual) (0) k/uL APTT 20.1 L (22.0-30.0) sec ABG pH (7.35-7.45) ABG pCO2 (35-45) mmHg ABG pO2 (83-108) mmHg ABG HCO3 (21-25) mmol/L ABG Total CO2 (19-24) mmol/L ABG O2 Saturation (94-97) % Sodium (137-145) mmol/L Potassium (3.5-5.1) mmol/L Carbon Dioxide (22-30) mmol/L BUN (7-17) mg/dL Creatinine (0.52-1.04) mg/dL Glucose (74-99) mg/dL POC Glucose (mg/dL) 390 H (70-110) mg/dL Plasma Lactic Acid Kashif (0.7-2.0) mmol/L Calcium (8.4-10.2) mg/dL Magnesium (1.6-2.3) mg/dL AST (14-36) U/L ALT (4-34) U/L Alkaline Phosphatase (38-126) U/L Urine Appearance (Clear) Urine Protein (Negative) Ur Leukocyte Esterase (Negative) Urine RBC (0-5) /hpf Urine WBC (0-5) /hpf Ur Squamous Epith Cells (0-4) /hpf Urine Bacteria (None) /hpf Hyaline Casts (0-2) /lpf Urine Mucus (None) /hpf 01/19/23 01/19/23 01/19/23 Range/Units 10:49 10:49 12:42 WBC (3.8-10.6) k/uL RBC (3.80-5.40) m/uL Hgb (11.4-16.0) gm/dL Hct (34.0-46.0) % MCHC (31.0-37.0) g/dL Neutrophils # (Manual) (1.3-7.7) k/uL Monocytes # (Manual) (0-1.0) k/uL Metamyelocytes # (Man) (0) k/uL Myelocytes # (Manual) (0) k/uL APTT (22.0-30.0) sec ABG pH (7.35-7.45) ABG pCO2 (35-45) mmHg ABG pO2 (83-108) mmHg ABG HCO3 (21-25) mmol/L ABG Total CO2 (19-24) mmol/L ABG O2 Saturation (94-97) % Sodium 134 L (137-145) mmol/L Potassium (3.5-5.1) mmol/L Carbon Dioxide 14 L (22-30) mmol/L BUN 20 H (7-17) mg/dL Creatinine 1.89 H (0.52-1.04) mg/dL Glucose 369 H (74-99) mg/dL POC Glucose (mg/dL) (70-110) mg/dL Plasma Lactic Acid Kashif 7.2 H* (0.7-2.0) mmol/L Calcium (8.4-10.2) mg/dL Magnesium (1.6-2.3) mg/dL AST 57 H (14-36) U/L ALT 35 H (4-34) U/L Alkaline Phosphatase 617 H (38-126) U/L Urine Appearance Cloudy H (Clear) Urine Protein 2+ H (Negative) Ur Leukocyte Esterase Large H (Negative) Urine RBC 7 H (0-5) /hpf Urine WBC 33 H (0-5) /hpf Ur Squamous Epith Cells 12 H (0-4) /hpf Urine Bacteria Rare H (None) /hpf Hyaline Casts 7 H (0-2) /lpf Urine Mucus Rare H (None) /hpf 01/19/23 01/19/23 01/19/23 Range/Units 13:21 17:56 18:47 WBC (3.8-10.6) k/uL RBC (3.80-5.40) m/uL Hgb (11.4-16.0) gm/dL Hct (34.0-46.0) % MCHC (31.0-37.0) g/dL Neutrophils # (Manual) (1.3-7.7) k/uL Monocytes # (Manual) (0-1.0) k/uL Metamyelocytes # (Man) (0) k/uL Myelocytes # (Manual) (0) k/uL APTT (22.0-30.0) sec ABG pH (7.35-7.45) ABG pCO2 (35-45) mmHg ABG pO2 (83-108) mmHg ABG HCO3 (21-25) mmol/L ABG Total CO2 (19-24) mmol/L ABG O2 Saturation (94-97) % Sodium (137-145) mmol/L Potassium (3.5-5.1) mmol/L Carbon Dioxide (22-30) mmol/L BUN (7-17) mg/dL Creatinine (0.52-1.04) mg/dL Glucose (74-99) mg/dL POC Glucose (mg/dL) 257 H 247 H (70-110) mg/dL Plasma Lactic Acid Kashif 7.3 H* (0.7-2.0) mmol/L Calcium (8.4-10.2) mg/dL Magnesium (1.6-2.3) mg/dL AST (14-36) U/L ALT (4-34) U/L Alkaline Phosphatase (38-126) U/L Urine Appearance (Clear) Urine Protein (Negative) Ur Leukocyte Esterase (Negative) Urine RBC (0-5) /hpf Urine WBC (0-5) /hpf Ur Squamous Epith Cells (0-4) /hpf Urine Bacteria (None) /hpf Hyaline Casts (0-2) /lpf Urine Mucus (None) /hpf 01/19/23 01/19/23 01/19/23 Range/Units 21:30 23:02 23:26 WBC (3.8-10.6) k/uL RBC (3.80-5.40) m/uL Hgb (11.4-16.0) gm/dL Hct (34.0-46.0) % MCHC (31.0-37.0) g/dL Neutrophils # (Manual) (1.3-7.7) k/uL Monocytes # (Manual) (0-1.0) k/uL Metamyelocytes # (Man) (0) k/uL Myelocytes # (Manual) (0) k/uL APTT (22.0-30.0) sec ABG pH 7.06 L* 7.06 L* (7.35-7.45) ABG pCO2 34 L 49 H (35-45) mmHg ABG pO2 191 H 285 H (83-108) mmHg ABG HCO3 9 L* 13 L (21-25) mmol/L ABG Total CO2 15 L (19-24) mmol/L ABG O2 Saturation 98.8 H 99.0 H (94-97) % Sodium (137-145) mmol/L Potassium (3.5-5.1) mmol/L Carbon Dioxide (22-30) mmol/L BUN (7-17) mg/dL Creatinine (0.52-1.04) mg/dL Glucose (74-99) mg/dL POC Glucose (mg/dL) 169 H (70-110) mg/dL Plasma Lactic Acid Kashif (0.7-2.0) mmol/L Calcium (8.4-10.2) mg/dL Magnesium (1.6-2.3) mg/dL AST (14-36) U/L ALT (4-34) U/L Alkaline Phosphatase (38-126) U/L Urine Appearance (Clear) Urine Protein (Negative) Ur Leukocyte Esterase (Negative) Urine RBC (0-5) /hpf Urine WBC (0-5) /hpf Ur Squamous Epith Cells (0-4) /hpf Urine Bacteria (None) /hpf Hyaline Casts (0-2) /lpf Urine Mucus (None) /hpf 01/20/23 01/20/23 01/20/23 Range/Units 00:10 00:10 00:10 WBC 16.0 H (3.8-10.6) k/uL RBC 3.47 L (3.80-5.40) m/uL Hgb 10.5 L (11.4-16.0) gm/dL Hct 32.6 L (34.0-46.0) % MCHC (31.0-37.0) g/dL Neutrophils # (Manual) 13.90 H (1.3-7.7) k/uL Monocytes # (Manual) (0-1.0) k/uL Metamyelocytes # (Man) 0.16 H (0) k/uL Myelocytes # (Manual) 0.16 H (0) k/uL APTT (22.0-30.0) sec ABG pH (7.35-7.45) ABG pCO2 (35-45) mmHg ABG pO2 (83-108) mmHg ABG HCO3 (21-25) mmol/L ABG Total CO2 (19-24) mmol/L ABG O2 Saturation (94-97) % Sodium 136 L (137-145) mmol/L Potassium (3.5-5.1) mmol/L Carbon Dioxide 11 L (22-30) mmol/L BUN 22 H (7-17) mg/dL Creatinine 2.21 H (0.52-1.04) mg/dL Glucose 167 H (74-99) mg/dL POC Glucose (mg/dL) (70-110) mg/dL Plasma Lactic Acid Kashif 7.1 H* (0.7-2.0) mmol/L Calcium 8.1 L (8.4-10.2) mg/dL Magnesium 2.5 H (1.6-2.3) mg/dL AST (14-36) U/L ALT (4-34) U/L Alkaline Phosphatase (38-126) U/L Urine Appearance (Clear) Urine Protein (Negative) Ur Leukocyte Esterase (Negative) Urine RBC (0-5) /hpf Urine WBC (0-5) /hpf Ur Squamous Epith Cells (0-4) /hpf Urine Bacteria (None) /hpf Hyaline Casts (0-2) /lpf Urine Mucus (None) /hpf 01/20/23 01/20/23 01/20/23 Range/Units 01:38 02:24 03:27 WBC (3.8-10.6) k/uL RBC (3.80-5.40) m/uL Hgb (11.4-16.0) gm/dL Hct (34.0-46.0) % MCHC (31.0-37.0) g/dL Neutrophils # (Manual) (1.3-7.7) k/uL Monocytes # (Manual) (0-1.0) k/uL Metamyelocytes # (Man) (0) k/uL Myelocytes # (Manual) (0) k/uL APTT (22.0-30.0) sec ABG pH (7.35-7.45) ABG pCO2 (35-45) mmHg ABG pO2 (83-108) mmHg ABG HCO3 (21-25) mmol/L ABG Total CO2 (19-24) mmol/L ABG O2 Saturation (94-97) % Sodium (137-145) mmol/L Potassium (3.5-5.1) mmol/L Carbon Dioxide (22-30) mmol/L BUN (7-17) mg/dL Creatinine (0.52-1.04) mg/dL Glucose (74-99) mg/dL POC Glucose (mg/dL) 196 H 188 H (70-110) mg/dL Plasma Lactic Acid Kashif 4.6 H* (0.7-2.0) mmol/L Calcium (8.4-10.2) mg/dL Magnesium (1.6-2.3) mg/dL AST (14-36) U/L ALT (4-34) U/L Alkaline Phosphatase (38-126) U/L Urine Appearance (Clear) Urine Protein (Negative) Ur Leukocyte Esterase (Negative) Urine RBC (0-5) /hpf Urine WBC (0-5) /hpf Ur Squamous Epith Cells (0-4) /hpf Urine Bacteria (None) /hpf Hyaline Casts (0-2) /lpf Urine Mucus (None) /hpf 01/20/23 01/20/23 01/20/23 Range/Units 03:33 05:27 05:28 WBC (3.8-10.6) k/uL RBC (3.80-5.40) m/uL Hgb (11.4-16.0) gm/dL Hct (34.0-46.0) % MCHC (31.0-37.0) g/dL Neutrophils # (Manual) (1.3-7.7) k/uL Monocytes # (Manual) (0-1.0) k/uL Metamyelocytes # (Man) (0) k/uL Myelocytes # (Manual) (0) k/uL APTT (22.0-30.0) sec ABG pH (7.35-7.45) ABG pCO2 (35-45) mmHg ABG pO2 (83-108) mmHg ABG HCO3 (21-25) mmol/L ABG Total CO2 (19-24) mmol/L ABG O2 Saturation (94-97) % Sodium 134 L (137-145) mmol/L Potassium 5.3 H (3.5-5.1) mmol/L Carbon Dioxide 13 L (22-30) mmol/L BUN 23 H (7-17) mg/dL Creatinine 2.18 H (0.52-1.04) mg/dL Glucose 210 H (74-99) mg/dL POC Glucose (mg/dL) 204 H 218 H (70-110) mg/dL Plasma Lactic Acid Kashif (0.7-2.0) mmol/L Calcium 7.5 L (8.4-10.2) mg/dL Magnesium (1.6-2.3) mg/dL AST (14-36) U/L ALT (4-34) U/L Alkaline Phosphatase (38-126) U/L Urine Appearance (Clear) Urine Protein (Negative) Ur Leukocyte Esterase (Negative) Urine RBC (0-5) /hpf Urine WBC (0-5) /hpf Ur Squamous Epith Cells (0-4) /hpf Urine Bacteria (None) /hpf Hyaline Casts (0-2) /lpf Urine Mucus (None) /hpf 01/20/23 01/20/23 01/20/23 Range/Units 05:28 05:53 06:25 WBC 19.5 H (3.8-10.6) k/uL RBC 3.72 L (3.80-5.40) m/uL Hgb 11.2 L (11.4-16.0) gm/dL Hct (34.0-46.0) % MCHC (31.0-37.0) g/dL Neutrophils # (Manual) (1.3-7.7) k/uL Monocytes # (Manual) (0-1.0) k/uL Metamyelocytes # (Man) (0) k/uL Myelocytes # (Manual) (0) k/uL APTT (22.0-30.0) sec ABG pH 7.09 L* (7.35-7.45) ABG pCO2 54 H (35-45) mmHg ABG pO2 187 H (83-108) mmHg ABG HCO3 16 L (21-25) mmol/L ABG Total CO2 16 L (19-24) mmol/L ABG O2 Saturation 99.0 H (94-97) % Sodium (137-145) mmol/L Potassium (3.5-5.1) mmol/L Carbon Dioxide (22-30) mmol/L BUN (7-17) mg/dL Creatinine (0.52-1.04) mg/dL Glucose (74-99) mg/dL POC Glucose (mg/dL) 215 H (70-110) mg/dL Plasma Lactic Acid Kashif (0.7-2.0) mmol/L Calcium (8.4-10.2) mg/dL Magnesium (1.6-2.3) mg/dL AST (14-36) U/L ALT (4-34) U/L Alkaline Phosphatase (38-126) U/L Urine Appearance (Clear) Urine Protein (Negative) Ur Leukocyte Esterase (Negative) Urine RBC (0-5) /hpf Urine WBC (0-5) /hpf Ur Squamous Epith Cells (0-4) /hpf Urine Bacteria (None) /hpf Hyaline Casts (0-2) /lpf Urine Mucus (None) /hpf Assessment and Plan Assessment: Severe abdominal distention, abdominal pain, constipation, and severe martinez- colonic distention, status post exploratory laparotomy, lysis of adhesions, tota l colectomy, ileostomy, abdominal washout, placement of Diaz-Benítez drains, and placement of a wound VAC, postop day #1. S/P intubation and mechanical ventilation, beginning on January 19, for respiratory failure. Acute lactic acidemia, with anion gap metabolic acidosis. History of diabetes mellitus. History of stress urinary incontinence. History of hypothyroidism. History of hyperlipidemia. History of COPD from ongoing tobacco use. History of depression. Recent admission in November of this year for hyponatremia. Plan: Plan dated 01/19/2023. The patient will be admitted to the intensive care unit for further monitoring and management. I spoke to Dr. Montoya about the patient, and also the ICU charge nurse. We will continue to follow and make recommendations along the way. She is yet to be seen by the surgeon. The surgeon, apparently has experience with this patient. The patient was to have a colonoscopy in the past, but never has scheduled it. Prognosis is guarded. Labs, x-rays, and medications are reviewed. Plan dated 01/20/2023. The patient was seen yesterday in the emergency department. She came in with severe abdominal distention and abdominal pain. It was going on for at least a week and maybe longer. The patient went to the operating room yesterday, and had an exploratory laparotomy, lysis of adhesions, total colectomy, ileostomy, and placement of a wound VAC, and Diaz-Benítez drains. Currently, the patient is on mechanical ventilator, with a severe respiratory and metabolic acidosis. She remains on propofol, and norepinephrine. She's on prednisone bicarbonate drip. We will continue to follow and make recommendations along the way. Prognosis remains very guarded. Time with Patient: Greater than 30
[2023-01-20] MEDS: PANTOPRAZOLE 40 MG/10 ML VIAL IV SCH (09:18)
[2023-01-20] MEDS: ENOXAPARIN 30 MG/0.3 ML SYRINGE SQ SCH (09:18)
[2023-01-20] MEDS: CHLORHEXIDINE GLUCONATE 15 ML CUP MUCOUS MEM SCH ×2 (09:18→20:18)
[2023-01-20] MEDS: HYDROmorphone 1 MG/ML 1 ML SYRINGE IVP PRN ×2 (10:32→20:19)
[2023-01-20 11:30] LABS: Glucose,Whole Blood 221 mg/dL (70-110)
[2023-01-20] MEDS: NOREPINEPHRINE 4 MG in SODIUM CHLORIDE 0.9% 250 ML IV SCH (11:43)
[2023-01-20] MEDS ORDERED: SODIUM CHLORIDE 0.9% 1,000 ML IV ONE (15:30)
[2023-01-20 16:35] LABS: Glucose,Whole Blood 243 mg/dL (70-110)
--- NOTE | 2023-01-20 19:30 | P.CONS ---
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 history of smoking presenting to the hospital with a 2-week history of abdominal pain currently has been getting worse for the last 2 weeks patient was also constipated with no bowel movement for 2 weeks and did have decreased oral intake with the similar patient presented to hospital on arrival to the ER the patient was afebrile however this morning the patient did have a low-grade fever of 99.9 F patient was tachycardic hypotensive requiring pressor support patient did have a total of 5.6 with a left shift did have elevated BUN/creatinine lactic acid was elevated patient did have a CT of abdominal pelvis pancolonic d istention with cecum up to 9.4 cm some mesenteric edema questionable scattered foci of colonic wall pneumatosis patient was taken to the OR last night patient was diagnosed with acute ischemic colitis with necrosis of large bone and peritonitis patient is status post extensive lysis of adhesion decompressive colotomy total abdominal colectomy and end ileostomy and abdominal cultures patient has been started on Zosyn infectious he was consulted this morning for further management of antibiotic therapy patient is currently on pressor support all information has been obtained from the chart of nursing staff as the patient is currently intubated on the vent no family numbers at the bedside Review of Systems Positive points has been mentioned in HPI complete review could not be obtained because patient is intubated on the vent 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 Past Anesthesia/Blood Transfusion Reactions: No Reported Reaction Past Psychological History: Depression Smoking Status: Current every day smoker Past Alcohol Use History: None Reported Past Drug Use History: None Reported Additional Drug Use History / Comment(s): Patient states she smokes about 10 cig/day. - Past Family History Father Family Medical History: Coronary Artery Disease (CAD) Mother Family Medical History: Diabetes Mellitus Medications and Allergies Home Medications Medication Instructions Recorded Confirmed Type Oxybutynin Chloride [oxyBUTYnin 10 mg PO DAILY 08/17/20 01/19/23 History chloride ER] Topiramate 50 mg PO BID 08/17/20 01/19/23 History Cyclobenzaprine [Flexeril] 10 mg PO BID PRN 09/17/21 01/19/23 History FLUoxetine HCL [PROzac] 40 mg PO DAILY@1600 09/17/21 01/19/23 History Fluticasone Nasal [place] [Flonase 1 - 2 spr EA NOSTRIL HS 09/17/21 01/19/23 History Nasal [place]] Albuterol Inhaler [Ventolin Hfa 2 puff INHALATION RT-QID PRN 12/14/21 01/19/23 History Inhaler] Levothyroxine Sodium 88 mcg PO DAILY 12/14/21 01/19/23 History QUEtiapine [SEROquel] 400 mg PO HS 12/14/21 01/19/23 History Atorvastatin [Lipitor] 40 mg PO DAILY@159906/16/22 01/19/23 History Cholecalciferol (Vitamin D3) 125 mcg PO DAILY@159906/16/22 01/19/23 History [Vitamin D3 (125 MCG = 5,000 IU)] Fluticasone Propion/Salmeterol 1 puff INHALATION RT-BID 06/16/22 01/19/23 History [Advair 500-50 Diskus] Multivitamins, Thera [Multivitamin 1 tab PO DAILY@159906/16/22 01/19/23 History (formulary)] Triamcinolone 0.1% Cream [Kenalog 1 applic TOPICAL BID PRN 06/16/22 01/19/23 History 0.1% Cream] Vitamin E (Dl,Tocopheryl Acet) 400 unit PO DAILY@1600 06/16/22 01/19/23 History [Vitamin E (400 Iu = 180 mg)] Aspirin 325 mg PO DAILY #30 tab 06/18/22 01/19/23 Rx Famotidine [Pepcid] 20 mg PO BID 01/19/23 01/19/23 History Levocetirizine Dihydrochloride 5 mg PO BID 01/19/23 01/19/23 History [Xyzal] Mupirocin 2% Oint [Bactroban 2% 1 applic TOPICAL BID 01/19/23 01/19/23 History Oint] Enoxaparin [Lovenox] 40 mg SQ DAILY #30 each 02/13/23 Rx Fluconazole [Diflucan] 200 mg PO DAILY 7 Days #7 tablet 02/13/23 Rx Gabapentin [Neurontin] 100 mg PO BID cap 02/13/23 Rx HYDROcodone/APAP 10-325MG [[place] 1 tab PO Q6H PRN 30 Days #120 tab 02/13/23 Rx 10-325] INSULIN ASPART (NovoLOG) [NovoLOG 0 unit SQ Q6H each 02/13/23 Rx (formulary)] Insulin Detemir (Levemir) [Levemir] 42 unit SQ BID@0700,2100 each 02/13/23 Rx Ipratropium-Albuterol Nebulize 3 ml INHALATION RT-QID each 02/13/23 Rx [Duoneb 0.5 mg-3 mg/3 ml Soln] LORazepam [Ativan] 1 mg PO Q6HR PRN #120 tab 02/13/23 Rx Mirtazapine [Remeron] 15 mg PO HS tab 02/13/23 Rx Nicotine 21Mg/24Hr Patch [Habitrol] 1 patch TRANSDERM DAILY patch 02/13/23 Rx amLODIPine [Norvasc] 10 mg PO DAILY tab 02/13/23 Rx cloNIDine HCL [Catapres] 0.2 mg PO BID tab 02/13/23 Rx hydrALAZINE HCL [Apresoline] 100 mg PO TID tab 02/13/23 Rx Allergies Allergy/AdvReac Type Severity Reaction Status Date / Time No Known Allergies Allergy Verified 01/19/23 13:50 Physical Exam Vitals: Vital Signs Temp Pulse Resp BP Pulse Ox FiO2 01/20/23 08:21 108 H 01/20/23 08:07 110 H 01/20/23 08:02 40 01/20/23 07:00 109 H 18 94/51 98 01/20/23 06:45 109 H 25 H 108/66 98 01/20/23 06:37 40 01/20/23 06:30 109 H 19 108/57 100 01/20/23 06:15 109 H 19 102/53 100 01/20/23 06:00 109 H 16 109/52 100 01/20/23 05:45 110 H 19 103/51 100 01/20/23 05:30 109 H 18 104/53 99 01/20/23 05:15 109 H 18 99/54 99 01/20/23 05:00 109 H 18 112/50 99 01/20/23 04:45 110 H 18 107/54 99 01/20/23 04:30 109 H 18 104/54 100 01/20/23 04:15 108 H 18 107/57 99 01/20/23 04:00 97.8 F 107 H 18 109/53 100 70 01/20/23 03:56 108 H 01/20/23 03:48 109 H 01/20/23 03:45 108 H 18 106/51 100 01/20/23 03:42 60 01/20/23 03:30 108 H 18 108/52 100 01/20/23 03:15 107 H 18 110/53 99 01/20/23 03:00 108 H 18 112/55 100 01/20/23 02:45 108 H 19 111/55 100 01/20/23 02:30 107 H 18 107/55 99 01/20/23 02:16 108 H 17 113/53 99 01/20/23 02:00 108 H 18 117/55 99 01/20/23 01:45 108 H 18 113/53 99 01/20/23 01:30 108 H 18 118/54 99 01/20/23 01:15 108 H 18 112/55 99 01/20/23 01:11 110 H 01/20/23 01:08 70 01/20/23 01:05 108 H 01/20/23 01:00 107 H 18 100 01/20/23 00:45 108 H 18 117/55 99 01/20/23 00:34 70 01/20/23 00:30 108 H 18 120/54 99 01/20/23 00:29 70 01/20/23 00:26 107 H 18 120/54 99 01/20/23 00:00 97.6 F 107 H 18 115/52 99 100 01/19/23 23:30 105 H 18 103/49 100 01/19/23 23:00 97.8 F 104 H 18 123/55 55 01/19/23 15:00 112 H 21 112/68 93 L 01/19/23 14:30 113 H 26 H 115/70 94 L 01/19/23 14:00 112 H 24 132/73 96 01/19/23 13:30 109 H 19 96 01/19/23 13:00 116/96 01/19/23 12:30 109 H 30 H 113/58 96 01/19/23 12:00 113/58 01/19/23 11:30 105 H 29 H 105/63 01/19/23 11:00 104 H 30 H 107/67 98 01/19/23 10:30 105 H 25 H 97 01/19/23 10:29 105 H 28 H 01/19/23 10:24 97.6 F 104 H 18 107/67 98 Intake and Output 01/19/23 01/20/23 01/20/23 22:59 06:59 14:59 Intake Total 3800 2607.775 114.153 Output Total 350 900 55 Balance 3450 1707.775 59.153 Intake: IV 3800 2446 78 ACETAMINOPHEN IV (For NPO 100 ) 1,000 mg In Empty Bag 1 bag @ 400 mls/hr IVPB Q6H [facility] Rx#:[id number] Dextrose 5% in Water 1, 225 75 000 ml @ 75 mls/hr IV . [id number] [facility] with Sodium Bicarb (1 Meq/ml) 100 ml Rx#:[id number] Piperacillin-Tazobactam 3 100 .375 gm In Sodium Chloride 0.9% 100 ml @ 25 mls/hr IVPB Q8H [facility] Rx#: [id number] Sodium Chloride 0.9% 1, 1000 000 ml @ 999 mls/hr IV . Q1H1M ONE Rx#:[id number] Sodium Chloride 0.9% 1, 1000 000 ml @ 999 mls/hr IV . Q1H1M ONE Rx#:[id number] pressure bag 21 3 Intake, IV Titration 161.775 36.153 Amount Norepinephrine 4 mg In 102.391 17.840 Sodium Chloride 0.9% 250 ml @ 0.03 MCG/KG/MIN 9. 851 mls/hr IV .Q24H [facility] Rx#:[id number] propofoL 1,000 mg In 59.384 18.313 Empty Bag 1 bag @ 15 MCG/ KG/MIN 7.757 mls/hr IV . [id number] [facility] Rx#:[id number] Output: Drainage 130 Left Lower Abdomen 130 Urine 300 770 55 Estimated Blood Loss 50 Other: Voiding Method Indwelling Catheter Weight 90.8 kg ABP, PAP, CO, CI - Last 8 Hours Arterial Blood Pressure 110/43 Arterial Blood Pressure 136/47 Arterial Blood Pressure 135/46 Arterial Blood Pressure 125/47 Arterial Blood Pressure 121/44 Arterial Blood Pressure 121/43 Arterial Blood Pressure 117/43 Arterial Blood Pressure 130/45 Arterial Blood Pressure 127/44 Arterial Blood Pressure 124/44 Arterial Blood Pressure 133/46 Arterial Blood Pressure 125/45 Arterial Blood Pressure 128/47 Arterial Blood Pressure 128/46 Arterial Blood Pressure 134/48 Arterial Blood Pressure 135/53 Arterial Blood Pressure 132/53 Arterial Blood Pressure 128/53 Arterial Blood Pressure 129/44 Arterial Blood Pressure 130/44 Arterial Blood Pressure 132/44 Arterial Blood Pressure 141/44 GENERAL DESCRIPTION: Elderly female intubated on the vent HEENT: Shows Pallor , no scleral icterus. Oral mucous membrane is dry. NECK: Trachea central, no thyromegaly. LUNGS: Unlabored breathing. Decreased breath sound the bases HEART: S1, S2, regular rate and rhythm. No loud murmur ABDOMEN: Soft, midline incision is intact EXTREMITIES: No edema of feet. SKIN: No rash, no masses palpable. NEUROLOGICAL: The patient is sedated on the vent Results CBC & Chem 7: 02/14/23 06:07 02/13/23 07:25 Labs: Abnormal Lab Results - Last 24 Hours (Table) 01/19/23 01/19/23 01/19/23 Range/Units 10:39 10:49 10:49 WBC 25.6 H (3.8-10.6) k/uL RBC (3.80-5.40) m/uL Hgb (11.4-16.0) gm/dL Hct (34.0-46.0) % MCHC 30.5 L (31.0-37.0) g/dL Neutrophils # (Manual) 22.20 H (1.3-7.7) k/uL Lymphocytes # (Manual) (1.0-4.8) k/uL Monocytes # (Manual) 1.28 H (0-1.0) k/uL Metamyelocytes # (Man) 0.51 H (0) k/uL Myelocytes # (Manual) (0) k/uL APTT 20.1 L (22.0-30.0) sec ABG pH (7.35-7.45) ABG pCO2 (35-45) mmHg ABG pO2 (83-108) mmHg ABG HCO3 (21-25) mmol/L ABG Total CO2 (19-24) mmol/L ABG O2 Saturation (94-97) % Sodium (137-145) mmol/L Potassium (3.5-5.1) mmol/L Carbon Dioxide (22-30) mmol/L BUN (7-17) mg/dL Creatinine (0.52-1.04) mg/dL Glucose (74-99) mg/dL POC Glucose (mg/dL) 390 H (70-110) mg/dL Plasma Lactic Acid Kashif (0.7-2.0) mmol/L Calcium (8.4-10.2) mg/dL Magnesium (1.6-2.3) mg/dL AST (14-36) U/L ALT (4-34) U/L Alkaline Phosphatase (38-126) U/L Urine Appearance (Clear) Urine Protein (Negative) Ur Leukocyte Esterase (Negative) Urine RBC (0-5) /hpf Urine WBC (0-5) /hpf Ur Squamous Epith Cells (0-4) /hpf Urine Bacteria (None) /hpf Hyaline Casts (0-2) /lpf Urine Mucus (None) /hpf 01/19/23 01/19/23 01/19/23 Range/Units 10:49 10:49 12:42 WBC (3.8-10.6) k/uL RBC (3.80-5.40) m/uL Hgb (11.4-16.0) gm/dL Hct (34.0-46.0) % MCHC (31.0-37.0) g/dL Neutrophils # (Manual) (1.3-7.7) k/uL Lymphocytes # (Manual) (1.0-4.8) k/uL Monocytes # (Manual) (0-1.0) k/uL Metamyelocytes # (Man) (0) k/uL Myelocytes # (Manual) (0) k/uL APTT (22.0-30.0) sec ABG pH (7.35-7.45) ABG pCO2 (35-45) mmHg ABG pO2 (83-108) mmHg ABG HCO3 (21-25) mmol/L ABG Total CO2 (19-24) mmol/L ABG O2 Saturation (94-97) % Sodium 134 L (137-145) mmol/L Potassium (3.5-5.1) mmol/L Carbon Dioxide 14 L (22-30) mmol/L BUN 20 H (7-17) mg/dL Creatinine 1.89 H (0.52-1.04) mg/dL Glucose 369 H (74-99) mg/dL POC Glucose (mg/dL) (70-110) mg/dL Plasma Lactic Acid Kashif 7.2 H* (0.7-2.0) mmol/L Calcium (8.4-10.2) mg/dL Magnesium (1.6-2.3) mg/dL AST 57 H (14-36) U/L ALT 35 H (4-34) U/L Alkaline Phosphatase 617 H (38-126) U/L Urine Appearance Cloudy H (Clear) Urine Protein 2+ H (Negative) Ur Leukocyte Esterase Large H (Negative) Urine RBC 7 H (0-5) /hpf Urine WBC 33 H (0-5) /hpf Ur Squamous Epith Cells 12 H (0-4) /hpf Urine Bacteria Rare H (None) /hpf Hyaline Casts 7 H (0-2) /lpf Urine Mucus Rare H (None) /hpf 01/19/23 01/19/23 01/19/23 Range/Units 13:21 17:56 18:47 WBC (3.8-10.6) k/uL RBC (3.80-5.40) m/uL Hgb (11.4-16.0) gm/dL Hct (34.0-46.0) % MCHC (31.0-37.0) g/dL Neutrophils # (Manual) (1.3-7.7) k/uL Lymphocytes # (Manual) (1.0-4.8) k/uL Monocytes # (Manual) (0-1.0) k/uL Metamyelocytes # (Man) (0) k/uL Myelocytes # (Manual) (0) k/uL APTT (22.0-30.0) sec ABG pH (7.35-7.45) ABG pCO2 (35-45) mmHg ABG pO2 (83-108) mmHg ABG HCO3 (21-25) mmol/L ABG Total CO2 (19-24) mmol/L ABG O2 Saturation (94-97) % Sodium (137-145) mmol/L Potassium (3.5-5.1) mmol/L Carbon Dioxide (22-30) mmol/L BUN (7-17) mg/dL Creatinine (0.52-1.04) mg/dL Glucose (74-99) mg/dL POC Glucose (mg/dL) 257 H 247 H (70-110) mg/dL Plasma Lactic Acid Kashif 7.3 H* (0.7-2.0) mmol/L Calcium (8.4-10.2) mg/dL Magnesium (1.6-2.3) mg/dL AST (14-36) U/L ALT (4-34) U/L Alkaline Phosphatase (38-126) U/L Urine Appearance (Clear) Urine Protein (Negative) Ur Leukocyte Esterase (Negative) Urine RBC (0-5) /hpf Urine WBC (0-5) /hpf Ur Squamous Epith Cells (0-4) /hpf Urine Bacteria (None) /hpf Hyaline Casts (0-2) /lpf Urine Mucus (None) /hpf 01/19/23 01/19/23 01/19/23 Range/Units 21:30 23:02 23:26 WBC (3.8-10.6) k/uL RBC (3.80-5.40) m/uL Hgb (11.4-16.0) gm/dL Hct (34.0-46.0) % MCHC (31.0-37.0) g/dL Neutrophils # (Manual) (1.3-7.7) k/uL Lymphocytes # (Manual) (1.0-4.8) k/uL Monocytes # (Manual) (0-1.0) k/uL Metamyelocytes # (Man) (0) k/uL Myelocytes # (Manual) (0) k/uL APTT (22.0-30.0) sec ABG pH 7.06 L* 7.06 L* (7.35-7.45) ABG pCO2 34 L 49 H (35-45) mmHg ABG pO2 191 H 285 H (83-108) mmHg ABG HCO3 9 L* 13 L (21-25) mmol/L ABG Total CO2 15 L (19-24) mmol/L ABG O2 Saturation 98.8 H 99.0 H (94-97) % Sodium (137-145) mmol/L Potassium (3.5-5.1) mmol/L Carbon Dioxide (22-30) mmol/L BUN (7-17) mg/dL Creatinine (0.52-1.04) mg/dL Glucose (74-99) mg/dL POC Glucose (mg/dL) 169 H (70-110) mg/dL Plasma Lactic Acid Kashif (0.7-2.0) mmol/L Calcium (8.4-10.2) mg/dL Magnesium (1.6-2.3) mg/dL AST (14-36) U/L ALT (4-34) U/L Alkaline Phosphatase (38-126) U/L Urine Appearance (Clear) Urine Protein (Negative) Ur Leukocyte Esterase (Negative) Urine RBC (0-5) /hpf Urine WBC (0-5) /hpf Ur Squamous Epith Cells (0-4) /hpf Urine Bacteria (None) /hpf Hyaline Casts (0-2) /lpf Urine Mucus (None) /hpf 01/20/23 01/20/23 01/20/23 Range/Units 00:10 00:10 00:10 WBC 16.0 H (3.8-10.6) k/uL RBC 3.47 L (3.80-5.40) m/uL Hgb 10.5 L (11.4-16.0) gm/dL Hct 32.6 L (34.0-46.0) % MCHC (31.0-37.0) g/dL Neutrophils # (Manual) 13.90 H (1.3-7.7) k/uL Lymphocytes # (Manual) (1.0-4.8) k/uL Monocytes # (Manual) (0-1.0) k/uL Metamyelocytes # (Man) 0.16 H (0) k/uL Myelocytes # (Manual) 0.16 H (0) k/uL APTT (22.0-30.0) sec ABG pH (7.35-7.45) ABG pCO2 (35-45) mmHg ABG pO2 (83-108) mmHg ABG HCO3 (21-25) mmol/L ABG Total CO2 (19-24) mmol/L ABG O2 Saturation (94-97) % Sodium 136 L (137-145) mmol/L Potassium (3.5-5.1) mmol/L Carbon Dioxide 11 L (22-30) mmol/L BUN 22 H (7-17) mg/dL Creatinine 2.21 H (0.52-1.04) mg/dL Glucose 167 H (74-99) mg/dL POC Glucose (mg/dL) (70-110) mg/dL Plasma Lactic Acid Kashif 7.1 H* (0.7-2.0) mmol/L Calcium 8.1 L (8.4-10.2) mg/dL Magnesium 2.5 H (1.6-2.3) mg/dL AST (14-36) U/L ALT (4-34) U/L Alkaline Phosphatase (38-126) U/L Urine Appearance (Clear) Urine Protein (Negative) Ur Leukocyte Esterase (Negative) Urine RBC (0-5) /hpf Urine WBC (0-5) /hpf Ur Squamous Epith Cells (0-4) /hpf Urine Bacteria (None) /hpf Hyaline Casts (0-2) /lpf Urine Mucus (None) /hpf 01/20/23 01/20/23 01/20/23 Range/Units 01:38 02:24 03:27 WBC (3.8-10.6) k/uL RBC (3.80-5.40) m/uL Hgb (11.4-16.0) gm/dL Hct (34.0-46.0) % MCHC (31.0-37.0) g/dL Neutrophils # (Manual) (1.3-7.7) k/uL Lymphocytes # (Manual) (1.0-4.8) k/uL Monocytes # (Manual) (0-1.0) k/uL Metamyelocytes # (Man) (0) k/uL Myelocytes # (Manual) (0) k/uL APTT (22.0-30.0) sec ABG pH (7.35-7.45) ABG pCO2 (35-45) mmHg ABG pO2 (83-108) mmHg ABG HCO3 (21-25) mmol/L ABG Total CO2 (19-24) mmol/L ABG O2 Saturation (94-97) % Sodium (137-145) mmol/L Potassium (3.5-5.1) mmol/L Carbon Dioxide (22-30) mmol/L BUN (7-17) mg/dL Creatinine (0.52-1.04) mg/dL Glucose (74-99) mg/dL POC Glucose (mg/dL) 196 H 188 H (70-110) mg/dL Plasma Lactic Acid Kashif 4.6 H* (0.7-2.0) mmol/L Calcium (8.4-10.2) mg/dL Magnesium (1.6-2.3) mg/dL AST (14-36) U/L ALT (4-34) U/L Alkaline Phosphatase (38-126) U/L Urine Appearance (Clear) Urine Protein (Negative) Ur Leukocyte Esterase (Negative) Urine RBC (0-5) /hpf Urine WBC (0-5) /hpf Ur Squamous Epith Cells (0-4) /hpf Urine Bacteria (None) /hpf Hyaline Casts (0-2) /lpf Urine Mucus (None) /hpf 01/20/23 01/20/23 01/20/23 Range/Units 03:33 05:27 05:28 WBC (3.8-10.6) k/uL RBC (3.80-5.40) m/uL Hgb (11.4-16.0) gm/dL Hct (34.0-46.0) % MCHC (31.0-37.0) g/dL Neutrophils # (Manual) (1.3-7.7) k/uL Lymphocytes # (Manual) (1.0-4.8) k/uL Monocytes # (Manual) (0-1.0) k/uL Metamyelocytes # (Man) (0) k/uL Myelocytes # (Manual) (0) k/uL APTT (22.0-30.0) sec ABG pH (7.35-7.45) ABG pCO2 (35-45) mmHg ABG pO2 (83-108) mmHg ABG HCO3 (21-25) mmol/L ABG Total CO2 (19-24) mmol/L ABG O2 Saturation (94-97) % Sodium 134 L (137-145) mmol/L Potassium 5.3 H (3.5-5.1) mmol/L Carbon Dioxide 13 L (22-30) mmol/L BUN 23 H (7-17) mg/dL Creatinine 2.18 H (0.52-1.04) mg/dL Glucose 210 H (74-99) mg/dL POC Glucose (mg/dL) 204 H 218 H (70-110) mg/dL Plasma Lactic Acid Kashif (0.7-2.0) mmol/L Calcium 7.5 L (8.4-10.2) mg/dL Magnesium (1.6-2.3) mg/dL AST (14-36) U/L ALT (4-34) U/L Alkaline Phosphatase (38-126) U/L Urine Appearance (Clear) Urine Protein (Negative) Ur Leukocyte Esterase (Negative) Urine RBC (0-5) /hpf Urine WBC (0-5) /hpf Ur Squamous Epith Cells (0-4) /hpf Urine Bacteria (None) /hpf Hyaline Casts (0-2) /lpf Urine Mucus (None) /hpf 01/20/23 01/20/23 01/20/23 Range/Units 05:28 05:53 06:25 WBC 19.5 H (3.8-10.6) k/uL RBC 3.72 L (3.80-5.40) m/uL Hgb 11.2 L (11.4-16.0) gm/dL Hct (34.0-46.0) % MCHC (31.0-37.0) g/dL Neutrophils # (Manual) 17.50 H (1.3-7.7) k/uL Lymphocytes # (Manual) 0.78 L (1.0-4.8) k/uL Monocytes # (Manual) 1.17 H (0-1.0) k/uL Metamyelocytes # (Man) 0.20 H (0) k/uL Myelocytes # (Manual) (0) k/uL APTT (22.0-30.0) sec ABG pH 7.09 L* (7.35-7.45) ABG pCO2 54 H (35-45) mmHg ABG pO2 187 H (83-108) mmHg ABG HCO3 16 L (21-25) mmol/L ABG Total CO2 16 L (19-24) mmol/L ABG O2 Saturation 99.0 H (94-97) % Sodium (137-145) mmol/L Potassium (3.5-5.1) mmol/L Carbon Dioxide (22-30) mmol/L BUN (7-17) mg/dL Creatinine (0.52-1.04) mg/dL Glucose (74-99) mg/dL POC Glucose (mg/dL) 215 H (70-110) mg/dL Plasma Lactic Acid Kashif (0.7-2.0) mmol/L Calcium (8.4-10.2) mg/dL Magnesium (1.6-2.3) mg/dL AST (14-36) U/L ALT (4-34) U/L Alkaline Phosphatase (38-126) U/L Urine Appearance (Clear) Urine Protein (Negative) Ur Leukocyte Esterase (Negative) Urine RBC (0-5) /hpf Urine WBC (0-5) /hpf Ur Squamous Epith Cells (0-4) /hpf Urine Bacteria (None) /hpf Hyaline Casts (0-2) /lpf Urine Mucus (None) /hpf Assessment and Plan (1) Ischemic colitis Current Visit: Yes Status: Acute Code(s): K55.9 - VASCULAR DISORDER OF INTESTINE, UNSPECIFIED SNOMED Code(s): 84680518 (2) Sepsis Current Visit: No Status: Acute Code(s): A41.9 - SEPSIS, UNSPECIFIED ORGANISM SNOMED Code(s): 74331659 Plan: 1patient presented to hospital abdominal pain has been diagnosed with ischemic colitis in this patient infusion of septic shock with low-grade fever t achycardia elevated white count elevated lactic acid source being ischemic large bowel status post subtotal colectomy and end ileostomy we will need to cover for the enteric gram-negative both aerobes and anaerobes abdominal culture has been obtained and those will be followed 2-patient to continue Zosyn 3.375 g every 8 hours 3-pressor support and fluid per firer retort We will follow on clinical condition and cultures to further adjust medication if needed Thank you for this consultation we will follow the patient along with you Time with Patient: Greater than 30
[2023-01-20 20:04] LABS: Glucose,Whole Blood 246 mg/dL (70-110)
--- NOTE | 2023-01-20 22:08 | P.PN ---
Subjective Progress Note Date: 01/20/23 CHIEF COMPLAINT: Acute abdomen with ischemic bowel HISTORY OF PRESENT ILLNESS: The patient is a 67 year old female with multiple comorbidities who presented with acute abdomen and ischemic bowel. Intraop erative findings were consistent with bowel. She status post total abdominal colectomy with ileostomy. She is in the critical care unit on full ventilatory support. is at bedside. Urine output 20 mL/h. REVIEW OF ORGAN SYSTEMS: Low-grade temperature 99.9. Full ventilatory support. Urine output marginal. PHYSICAL EXAM: VITALS: Reviewed CONSTITUTIONAL: Well developed and intubated EYES: Conjuctivae without sclera icterus. Extraocular movements grossly intact. HEAD, EARS, NOSE, THROAT: Moist buccal mucosa. Head is atraumatic, normocephalic. Hears conversational speech. No nasal drainage. NECK: Supple. No JV distention. No thyroidomegaly. RESPIRATORY: On full mechanical ventilation. CARDIOVASCULAR: Tachycardic ABDOMEN: Nondistended. Dressing clean dry and intact with incisional wound VAC. MUSCULOSKELETAL: No clubbing cyanosis or edema. Right below-knee amputee SKIN: Warm and well perfused with good skin turgor. NEUROLOGIC: Sedated PSYCH: Sedated CLINCAL LABS: Reviewed. WBC elevated with sepsis, leukocytosis pending from 26,000-19,000. Creatinine elevated 1.89-2.21. Lactic acidosis 7.2-3.6, elevated ASSESSMENT: 1. Acute abdomen with active bowel 2. Hypertensive heart disease with congestive heart failure 3. Morbid obesity due to excess calories, BMI over 34.8 4. Acute renal failure due to dehydration 5. History of lower extremity amputee 6. Chronic obstructive pulmonary disease 7. Diabetes type 2, insulin-dependent with diabetic nephropathy 8. Gastroesophageal reflux disease 9. Hypotension due to hypovolemia 10. Lactic acidosis 11. Septic shock due to bowel 12. Status post total abdominal colectomy PLAN: 1. Recommend additional IV fluids, 1000 mL 2. Recommend nephrology consultation for acute renal failure 3. Antibiotic management per infectious disease 4. Ostomy nurse consultation 5. Questions were answered with her at bedside. All questions addressed. 6. Continue ICU management Objective - Vital Signs Vital signs: Vital Signs Temp 100.2 F H 01/20/23 20:00 Pulse 111 H 01/20/23 21:00 Resp 24 01/20/23 21:00 BP 132/51 01/20/23 21:00 Pulse Ox 98 01/20/23 21:00 FiO2 40 01/20/23 20:34 Intake & Output 01/20/23 01/20/23 01/21/23 06:59 18:59 06:59 Intake Total 3407.775 2595.718 510.221 Output Total 1250 835 250 Balance 2157.775 1760.718 260.221 Weight 90.8 kg 90.8 kg Intake: IV 3246 2366 337 ACETAMINOPHEN IV (For NPO 100 200 100 ) 1,000 mg In Empty Bag 1 bag @ 400 mls/hr IVPB Q6H [facility] Rx#:[id number] Dextrose 5% in Water 1, 225 900 225 000 ml @ 75 mls/hr IV . [id number] [facility] with Sodium Bicarb (1 Meq/ml) 100 ml Rx#:[id number] Piperacillin-Tazobactam 3 100 200 .375 gm In Sodium Chloride 0.9% 100 ml @ 25 mls/hr IVPB Q8H [facility] Rx#: [id number] Sodium Chloride 0.9% 1, 1000 1000 000 ml @ 999 mls/hr IV . Q1H1M [facility] Rx#:[id number] Sodium Chloride 0.9% 1, 1000 000 ml @ 999 mls/hr IV . Q1H1M [facility] Rx#:[id number] pressure bag 21 66 12 Intake, IV Titration 161.775 229.718 173.221 Amount Norepinephrine 4 mg In 102.391 138.020 54.288 Sodium Chloride 0.9% 250 ml @ 0.03 MCG/KG/MIN 9. 851 mls/hr IV .Q24H [facility] Rx#:[id number] propofoL 1,000 mg In 59.384 91.698 118.933 Empty Bag 1 bag @ 15 MCG/ KG/MIN 7.757 mls/hr IV . [id number] [facility] Rx#:[id number] Output: Drainage 130 440 110 Left Lower Abdomen 130 440 110 Urine 1070 395 140 Estimated Blood Loss 50 Other: Voiding Method Indwelling Catheter Indwelling Catheter Indwelling Catheter ABP, PAP, CO, CI - Last Documented Arterial Blood Pressure 119/41 - Labs CBC & Chem 7: 01/20/23 05:28 01/20/23 05:28 Labs: Abnormal Lab Results - Last 24 Hours (Table) 01/19/23 01/19/23 01/19/23 Range/Units 21:30 23:02 23:26 WBC (3.8-10.6) k/uL RBC (3.80-5.40) m/uL Hgb (11.4-16.0) gm/dL Hct (34.0-46.0) % Neutrophils # (Manual) (1.3-7.7) k/uL Lymphocytes # (Manual) (1.0-4.8) k/uL Monocytes # (Manual) (0-1.0) k/uL Metamyelocytes # (Man) (0) k/uL Myelocytes # (Manual) (0) k/uL ABG pH 7.06 L* 7.06 L* (7.35-7.45) ABG pCO2 34 L 49 H (35-45) mmHg ABG pO2 191 H 285 H (83-108) mmHg ABG HCO3 9 L* 13 L (21-25) mmol/L ABG Total CO2 15 L (19-24) mmol/L ABG O2 Saturation 98.8 H 99.0 H (94-97) % Sodium (137-145) mmol/L Potassium (3.5-5.1) mmol/L Carbon Dioxide (22-30) mmol/L BUN (7-17) mg/dL Creatinine (0.52-1.04) mg/dL Glucose (74-99) mg/dL POC Glucose (mg/dL) 169 H (70-110) mg/dL Plasma Lactic Acid Kashif (0.7-2.0) mmol/L Calcium (8.4-10.2) mg/dL Magnesium (1.6-2.3) mg/dL 01/20/23 01/20/23 01/20/23 Range/Units 00:10 00:10 00:10 WBC 16.0 H (3.8-10.6) k/uL RBC 3.47 L (3.80-5.40) m/uL Hgb 10.5 L (11.4-16.0) gm/dL Hct 32.6 L (34.0-46.0) % Neutrophils # (Manual) 13.90 H (1.3-7.7) k/uL Lymphocytes # (Manual) (1.0-4.8) k/uL Monocytes # (Manual) (0-1.0) k/uL Metamyelocytes # (Man) 0.16 H (0) k/uL Myelocytes # (Manual) 0.16 H (0) k/uL ABG pH (7.35-7.45) ABG pCO2 (35-45) mmHg ABG pO2 (83-108) mmHg ABG HCO3 (21-25) mmol/L ABG Total CO2 (19-24) mmol/L ABG O2 Saturation (94-97) % Sodium 136 L (137-145) mmol/L Potassium (3.5-5.1) mmol/L Carbon Dioxide 11 L (22-30) mmol/L BUN 22 H (7-17) mg/dL Creatinine 2.21 H (0.52-1.04) mg/dL Glucose 167 H (74-99) mg/dL POC Glucose (mg/dL) (70-110) mg/dL Plasma Lactic Acid Kashif 7.1 H* (0.7-2.0) mmol/L Calcium 8.1 L (8.4-10.2) mg/dL Magnesium 2.5 H (1.6-2.3) mg/dL 01/20/23 01/20/23 01/20/23 Range/Units 01:38 02:24 03:27 WBC (3.8-10.6) k/uL RBC (3.80-5.40) m/uL Hgb (11.4-16.0) gm/dL Hct (34.0-46.0) % Neutrophils # (Manual) (1.3-7.7) k/uL Lymphocytes # (Manual) (1.0-4.8) k/uL Monocytes # (Manual) (0-1.0) k/uL Metamyelocytes # (Man) (0) k/uL Myelocytes # (Manual) (0) k/uL ABG pH (7.35-7.45) ABG pCO2 (35-45) mmHg ABG pO2 (83-108) mmHg ABG HCO3 (21-25) mmol/L ABG Total CO2 (19-24) mmol/L ABG O2 Saturation (94-97) % Sodium (137-145) mmol/L Potassium (3.5-5.1) mmol/L Carbon Dioxide (22-30) mmol/L BUN (7-17) mg/dL Creatinine (0.52-1.04) mg/dL Glucose (74-99) mg/dL POC Glucose (mg/dL) 196 H 188 H (70-110) mg/dL Plasma Lactic Acid Kashif 4.6 H* (0.7-2.0) mmol/L Calcium (8.4-10.2) mg/dL Magnesium (1.6-2.3) mg/dL 01/20/23 01/20/23 01/20/23 Range/Units 03:33 05:27 05:28 WBC (3.8-10.6) k/uL RBC (3.80-5.40) m/uL Hgb (11.4-16.0) gm/dL Hct (34.0-46.0) % Neutrophils # (Manual) (1.3-7.7) k/uL Lymphocytes # (Manual) (1.0-4.8) k/uL Monocytes # (Manual) (0-1.0) k/uL Metamyelocytes # (Man) (0) k/uL Myelocytes # (Manual) (0) k/uL ABG pH (7.35-7.45) ABG pCO2 (35-45) mmHg ABG pO2 (83-108) mmHg ABG HCO3 (21-25) mmol/L ABG Total CO2 (19-24) mmol/L ABG O2 Saturation (94-97) % Sodium 134 L (137-145) mmol/L Potassium 5.3 H (3.5-5.1) mmol/L Carbon Dioxide 13 L (22-30) mmol/L BUN 23 H (7-17) mg/dL Creatinine 2.18 H (0.52-1.04) mg/dL Glucose 210 H (74-99) mg/dL POC Glucose (mg/dL) 204 H 218 H (70-110) mg/dL Plasma Lactic Acid Kashif (0.7-2.0) mmol/L Calcium 7.5 L (8.4-10.2) mg/dL Magnesium (1.6-2.3) mg/dL 01/20/23 01/20/23 01/20/23 Range/Units 05:28 05:53 06:25 WBC 19.5 H (3.8-10.6) k/uL RBC 3.72 L (3.80-5.40) m/uL Hgb 11.2 L (11.4-16.0) gm/dL Hct (34.0-46.0) % Neutrophils # (Manual) 17.50 H (1.3-7.7) k/uL Lymphocytes # (Manual) 0.78 L (1.0-4.8) k/uL Monocytes # (Manual) 1.17 H (0-1.0) k/uL Metamyelocytes # (Man) 0.20 H (0) k/uL Myelocytes # (Manual) (0) k/uL ABG pH 7.09 L* (7.35-7.45) ABG pCO2 54 H (35-45) mmHg ABG pO2 187 H (83-108) mmHg ABG HCO3 16 L (21-25) mmol/L ABG Total CO2 16 L (19-24) mmol/L ABG O2 Saturation 99.0 H (94-97) % Sodium (137-145) mmol/L Potassium (3.5-5.1) mmol/L Carbon Dioxide (22-30) mmol/L BUN (7-17) mg/dL Creatinine (0.52-1.04) mg/dL Glucose (74-99) mg/dL POC Glucose (mg/dL) 215 H (70-110) mg/dL Plasma Lactic Acid Kashif (0.7-2.0) mmol/L Calcium (8.4-10.2) mg/dL Magnesium (1.6-2.3) mg/dL 01/20/23 01/20/23 01/20/23 Range/Units 11:28 14:10 16:34 WBC (3.8-10.6) k/uL RBC (3.80-5.40) m/uL Hgb (11.4-16.0) gm/dL Hct (34.0-46.0) % Neutrophils # (Manual) (1.3-7.7) k/uL Lymphocytes # (Manual) (1.0-4.8) k/uL Monocytes # (Manual) (0-1.0) k/uL Metamyelocytes # (Man) (0) k/uL Myelocytes # (Manual) (0) k/uL ABG pH (7.35-7.45) ABG pCO2 (35-45) mmHg ABG pO2 (83-108) mmHg ABG HCO3 (21-25) mmol/L ABG Total CO2 (19-24) mmol/L ABG O2 Saturation (94-97) % Sodium (137-145) mmol/L Potassium (3.5-5.1) mmol/L Carbon Dioxide (22-30) mmol/L BUN (7-17) mg/dL Creatinine (0.52-1.04) mg/dL Glucose (74-99) mg/dL POC Glucose (mg/dL) 221 H 243 H (70-110) mg/dL Plasma Lactic Acid Kashif 3.9 H* (0.7-2.0) mmol/L Calcium (8.4-10.2) mg/dL Magnesium (1.6-2.3) mg/dL 01/20/23 Range/Units 20:02 WBC (3.8-10.6) k/uL RBC (3.80-5.40) m/uL Hgb (11.4-16.0) gm/dL Hct (34.0-46.0) % Neutrophils # (Manual) (1.3-7.7) k/uL Lymphocytes # (Manual) (1.0-4.8) k/uL Monocytes # (Manual) (0-1.0) k/uL Metamyelocytes # (Man) (0) k/uL Myelocytes # (Manual) (0) k/uL ABG pH (7.35-7.45) ABG pCO2 (35-45) mmHg ABG pO2 (83-108) mmHg ABG HCO3 (21-25) mmol/L ABG Total CO2 (19-24) mmol/L ABG O2 Saturation (94-97) % Sodium (137-145) mmol/L Potassium (3.5-5.1) mmol/L Carbon Dioxide (22-30) mmol/L BUN (7-17) mg/dL Creatinine (0.52-1.04) mg/dL Glucose (74-99) mg/dL POC Glucose (mg/dL) 246 H (70-110) mg/dL Plasma Lactic Acid Kashif (0.7-2.0) mmol/L Calcium (8.4-10.2) mg/dL Magnesium (1.6-2.3) mg/dL Microbiology - Last 24 Hours (Table) 01/20/23 03:52 Sputum Culture - Preliminary Sputum 01/19/23 21:10 Anaerobic Culture - Preliminary Peritoneal Fluid 01/19/23 21:10 Wound Culture - Preliminary Other - Other
[2023-01-21] MEDS: IPRATROPIUM-ALBUTEROL 3 ML NEB INHALATION SCH ×7 (00:17→23:20)
[2023-01-21] MEDS: PIPERACILLIN-TAZOBACTAM 3.375 GM in SODIUM CHLORIDE 0.9% 100 ML IVPB SCH ×2 (00:28→11:22)
[2023-01-21] MEDS: HYDROmorphone 1 MG/ML 1 ML SYRINGE IVP PRN ×6 (01:21→23:05)
[2023-01-21] MEDS: ACETAMINOPHEN IV (For NPO) 1,000 MG in EMPTY BAG 1 BAG IVPB SCH ×4 (03:47→20:33)
[2023-01-21 04:40] LABS: Basophils % (A) 0 %; Eosinophils # (A) 0.1 k/uL (0-0.7); Eosinophils % (A) 1 %; HCT 29.4 % (34.0-46.0); HGB 9.7 gm/dL (11.4-16.0); Lymphocytes # (A) 1.8 k/uL (1.0-4.8); Lymphocytes % (A) 10 %; MCH 29.9 pg (25.0-35.0); MCHC 32.9 g/dL (31.0-37.0); MCV 90.8 fL (80.0-100.0); Mean Platelet Volume 7.2; Monocytes # (A) 0.5 k/uL (0-1.0); Monocytes % (A) 3 %; Neutrophils # (A) 14.9 k/uL (1.3-7.7); Neutrophils % (A) 85 %; Platelet Count 151 k/uL (150-450); RBC 3.24 m/uL (3.80-5.40); RDW 14.2 % (11.5-15.5); WBC 17.5 k/uL (3.8-10.6)
[2023-01-21 04:44] LABS: Calcium 6.7 mg/dL (8.4-10.2); Potassium 4.7 mmol/L (3.5-5.1)
[2023-01-21 05:34] LABS: Basophils # (A) 0.1 k/uL (0-0.2); Basophils % (A) 0 %; Eosinophils # (A) 0.1 k/uL (0-0.7); Eosinophils % (A) 1 %; HCT 29.1 % (34.0-46.0); HGB 9.6 gm/dL (11.4-16.0); Lymphocytes # (A) 1.6 k/uL (1.0-4.8); Lymphocytes % (A) 10 %; MCH 29.7 pg (25.0-35.0); MCHC 32.9 g/dL (31.0-37.0); MCV 90.5 fL (80.0-100.0); Mean Platelet Volume 7.3; Monocytes # (A) 0.5 k/uL (0-1.0); Monocytes % (A) 3 %; Neutrophils # (A) 14.2 k/uL (1.3-7.7); Neutrophils % (A) 85 %; Platelet Count 157 k/uL (150-450); RBC 3.21 m/uL (3.80-5.40); RDW 14.2 % (11.5-15.5); WBC 16.7 k/uL (3.8-10.6)
[2023-01-21 05:44] LABS: Albumin 2.2 g/dL (3.5-5.0); Calcium 6.7 mg/dL (8.4-10.2); Potassium 4.5 mmol/L (3.5-5.1); Total Bilirubin 0.4 mg/dL (0.2-1.3); Total Protein 4.4 g/dL (6.3-8.2)
[2023-01-21 06:00] LABS: ABG Base Excess -8.6 mmol/L; ABG HCO3 18 mmol/L (21-25); ABG Oxygen Saturation 99.8 % (94-97); ABG PCO2 39 mmHg (35-45); ABG PH 7.27 (7.35-7.45); ABG PO2 136 mmHg (83-108); ABG TCO2 20 mmol/L (19-24); Allen Test Performed? Yes
[2023-01-21] MEDS: DEXTROSE 5% IN WATER 1,000 ML with SODIUM BICARB (1 MEQ/ML) 100 ML IV SCH (06:08)
[2023-01-21 06:13] LABS: Glucose,Whole Blood 237 mg/dL (70-110)
[2023-01-21] MEDS: INSULIN ASPART (NovoLOG) 100 UNIT/ML VIAL SQ SCH ×4 (06:40→17:36)
--- NOTE | 2023-01-21 07:32 | XR ---
EXAMINATION TYPE: XR chest 1V portable DATE OF EXAM: 01/21/2023 5:31 AM COMPARISON: Chest radiograph from one day prior. TECHNIQUE: XR chest 1V portable Frontal view of the chest. CLINICAL INDICATION:Female, 67 years old with history of Tube placement; FINDINGS: Lungs/Pleura: Similar multifocal airspace opacities. No evidence of pneumothorax or pleural effusion. Pulmonary vascularity: Unremarkable. Heart/mediastinum: Cardiomediastinal silhouette is enlarged and stable. Atherosclerotic calcificatio ns are seen in the aorta. Musculoskeletal: Degenerative changes of the shoulder joints. Other findings: None Lines/Tubes: Endotracheal tube with distal tip 4.1 cm above the aaron. Nasogastric tube with its distal tip and side-port projecting under the diaphragm and projecting over the gastric lumen. Left central venous catheter with distal tip at the cavoatrial junction. IMPRESSION: 1. Similar multifocal airspace opacities. 2. Stable support lines and tubes.
[2023-01-21] MEDS: NOREPINEPHRINE 4 MG in SODIUM CHLORIDE 0.9% 250 ML IV SCH (07:35)
[2023-01-21] MEDS: ENOXAPARIN 30 MG/0.3 ML SYRINGE SQ SCH (08:32)
[2023-01-21] MEDS: PANTOPRAZOLE 40 MG/10 ML VIAL IV SCH (08:32)
[2023-01-21] MEDS: CHLORHEXIDINE GLUCONATE 15 ML CUP MUCOUS MEM SCH ×2 (08:32→20:34)
--- NOTE | 2023-01-21 09:03 | P.PN ---
Subjective This is a pleasant 67 years old female with multiple medical problems including COPD, Diabetes Mellitus, Hypertension. His pain is Dr. Kennedy which we are covering his service over the weekend. Patient was admitted with acute abdomen on 01/19. Patient was admitted to the general surgery service for emergent surgical intervention, and patient was admitted to the ICU in critical condition. We are consulted for general medical management. patient was taken for emergent surgery including emergent exploratory laparotomy, with lysis of adhesions and total abdominal colectomy and end ileostomy. Today is postoperative day #1. As per staff she has prolonged surgery more than 8 hours. She came to the ICU last night and currently she is intubated and sedated on mechanical ventilation. Overnight she needed a little pressors and currently she is on levophed 0.03 Vitals reviewed, blood pressure 90/51, heart rate 109, breathing rate is 18. Norman curtis is afebrile. Labs: Leukocytosis 25,000, down to 19,000. Hemoglobin 11 point Creatinine elevated troponin. Liver enzymes mildly elevated. Radha 7.0, lactic acidosis 7.[address] of the abdomen and pelvis showing pancolonic dilatation up to 9.4 cm, mesenteric edema and colonic pneumatosis. No free air. Patient was already started on antibiotics and IV fluids in the emergency room. Currently she is on Zosyn and sodium bicarb 01/31/2023 Patient remains in the ICU in critical condition, she still on mechanical ventilation with similar parameters of PEEP of 5 and FiO2 of 40%. Her levophed is slightly lower at 0.02. Stress she still getting sodium bicarbonate at 75 mL/h. Blood pressure this morning is 1:30/65. She is getting propofol at 35. She still tachycardic around 113. Labs on improved leukocytosis to 16,000, hemoglobin 9.6 area creatinine is going up slightly at 3.0 but somewhat stable. Patient made about 1.5 L yesterday. Sodium 129. Age improved up to 7.2 still on the acidosis site. Patient still with Zosyn and insulin sliding scale Consult nephrology Objective - Vital Signs Vital signs: Vital Signs Temp 99.7 F H 01/21/23 08:00 Pulse 113 H 01/21/23 08:45 Resp 21 01/21/23 08:45 BP 121/55 01/21/23 08:45 Pulse Ox 98 01/21/23 08:45 FiO2 40 01/21/23 08:14 Intake & Output 01/20/23 01/21/23 01/21/23 18:59 06:59 18:59 Intake Total 2595.718 1625.918 177.343 Output Total 835 890 130 Balance 1760.718 735.918 47.343 Weight 90.8 kg 94.5 kg Intake: IV 2366 1239 156 ACETAMINOPHEN IV (For NPO 200 200 ) 1,000 mg In Empty Bag 1 bag @ 400 mls/hr IVPB Q6H [facility] Rx#:[id number] Dextrose 5% in Water 1, 900 900 150 000 ml @ 75 mls/hr IV . [id number] [facility] with Sodium Bicarb (1 Meq/ml) 100 ml Rx#:[id number] Piperacillin-Tazobactam 3 200 100 .375 gm In Sodium Chloride 0.9% 100 ml @ 25 mls/hr IVPB Q8H [facility] Rx#: [id number] Sodium Chloride 0.9% 1, 1000 000 ml @ 999 mls/hr IV . Q1H1M [facility] Rx#:[id number] pressure bag 66 39 6 Intake, IV Titration 229.718 386.918 21.343 Amount Norepinephrine 4 mg In 138.020 124.723 21.343 Sodium Chloride 0.9% 250 ml @ 0.03 MCG/KG/MIN 9. 851 mls/hr IV .Q24H [facility] Rx#:[id number] propofoL 1,000 mg In 91.698 262.195 Empty Bag 1 bag @ 15 MCG/ KG/MIN 7.757 mls/hr IV . [id number] [facility] Rx#:[id number] Output: Drainage 440 380 70 Left Lower Abdomen 440 380 70 Urine 395 510 60 Other: Voiding Method Indwelling Catheter Indwelling Catheter Indwelling Catheter ABP, PAP, CO, CI - Last Documented Arterial Blood Pressure 129/47 - Labs CBC & Chem 7: 01/21/23 05:04 01/21/23 05:04 Labs: Abnormal Lab Results - Last 24 Hours (Table) 01/20/23 01/20/23 01/20/23 Range/Units 05:28 11:28 14:10 WBC (3.8-10.6) k/uL RBC (3.80-5.40) m/uL Hgb (11.4-16.0) gm/dL Hct (34.0-46.0) % Neutrophils # (1.3-7.7) k/uL Neutrophils # (Manual) 17.50 H (1.3-7.7) k/uL Lymphocytes # (Manual) 0.78 L (1.0-4.8) k/uL Monocytes # (Manual) 1.17 H (0-1.0) k/uL Metamyelocytes # (Man) 0.20 H (0) k/uL ABG pH (7.35-7.45) ABG pO2 (83-108) mmHg ABG HCO3 (21-25) mmol/L ABG O2 Saturation (94-97) % Sodium (137-145) mmol/L Carbon Dioxide (22-30) mmol/L BUN (7-17) mg/dL Creatinine (0.52-1.04) mg/dL Glucose (74-99) mg/dL POC Glucose (mg/dL) 221 H (70-110) mg/dL Plasma Lactic Acid Kashif 3.9 H* (0.7-2.0) mmol/L Calcium (8.4-10.2) mg/dL AST (14-36) U/L ALT (4-34) U/L Alkaline Phosphatase (38-126) U/L Total Protein (6.3-8.2) g/dL Albumin (3.5-5.0) g/dL 01/20/23 01/20/23 01/21/23 Range/Units 16:34 20:02 04:21 WBC 17.5 H (3.8-10.6) k/uL RBC 3.24 L (3.80-5.40) m/uL Hgb 9.7 L D (11.4-16.0) gm/dL Hct 29.4 L (34.0-46.0) % Neutrophils # 14.9 H (1.3-7.7) k/uL Neutrophils # (Manual) (1.3-7.7) k/uL Lymphocytes # (Manual) (1.0-4.8) k/uL Monocytes # (Manual) (0-1.0) k/uL Metamyelocytes # (Man) (0) k/uL ABG pH (7.35-7.45) ABG pO2 (83-108) mmHg ABG HCO3 (21-25) mmol/L ABG O2 Saturation (94-97) % Sodium (137-145) mmol/L Carbon Dioxide (22-30) mmol/L BUN (7-17) mg/dL Creatinine (0.52-1.04) mg/dL Glucose (74-99) mg/dL POC Glucose (mg/dL) 243 H 246 H (70-110) mg/dL Plasma Lactic Acid Kashif (0.7-2.0) mmol/L Calcium (8.4-10.2) mg/dL AST (14-36) U/L ALT (4-34) U/L Alkaline Phosphatase (38-126) U/L Total Protein (6.3-8.2) g/dL Albumin (3.5-5.0) g/dL 01/21/23 01/21/23 01/21/23 Range/Units 04:21 05:04 05:04 WBC 16.7 H (3.8-10.6) k/uL RBC 3.21 L (3.80-5.40) m/uL Hgb 9.6 L (11.4-16.0) gm/dL Hct 29.1 L (34.0-46.0) % Neutrophils # 14.2 H (1.3-7.7) k/uL Neutrophils # (Manual) (1.3-7.7) k/uL Lymphocytes # (Manual) (1.0-4.8) k/uL Monocytes # (Manual) (0-1.0) k/uL Metamyelocytes # (Man) (0) k/uL ABG pH (7.35-7.45) ABG pO2 (83-108) mmHg ABG HCO3 (21-25) mmol/L ABG O2 Saturation (94-97) % Sodium 131 L 129 L (137-145) mmol/L Carbon Dioxide 18 L 16 L (22-30) mmol/L BUN 35 H 36 H (7-17) mg/dL Creatinine 3.01 H 2.99 H (0.52-1.04) mg/dL Glucose 234 H 226 H (74-99) mg/dL POC Glucose (mg/dL) (70-110) mg/dL Plasma Lactic Acid Kashif (0.7-2.0) mmol/L Calcium 6.7 L 6.7 L (8.4-10.2) mg/dL AST 207 H (14-36) U/L ALT 42 H (4-34) U/L Alkaline Phosphatase 219 H (38-126) U/L Total Protein 4.4 L (6.3-8.2) g/dL Albumin 2.2 L (3.5-5.0) g/dL 01/21/23 01/21/23 Range/Units 05:56 06:11 WBC (3.8-10.6) k/uL RBC (3.80-5.40) m/uL Hgb (11.4-16.0) gm/dL Hct (34.0-46.0) % Neutrophils # (1.3-7.7) k/uL Neutrophils # (Manual) (1.3-7.7) k/uL Lymphocytes # (Manual) (1.0-4.8) k/uL Monocytes # (Manual) (0-1.0) k/uL Metamyelocytes # (Man) (0) k/uL ABG pH 7.27 L (7.35-7.45) ABG pO2 136 H (83-108) mmHg ABG HCO3 18 L (21-25) mmol/L ABG O2 Saturation 99.8 H (94-97) % Sodium (137-145) mmol/L Carbon Dioxide (22-30) mmol/L BUN (7-17) mg/dL Creatinine (0.52-1.04) mg/dL Glucose (74-99) mg/dL POC Glucose (mg/dL) 237 H (70-110) mg/dL Plasma Lactic Acid Kashif (0.7-2.0) mmol/L Calcium (8.4-10.2) mg/dL AST (14-36) U/L ALT (4-34) U/L Alkaline Phosphatase (38-126) U/L Total Protein (6.3-8.2) g/dL Albumin (3.5-5.0) g/dL Microbiology - Last 24 Hours (Table) 01/20/23 03:52 Gram Stain - Preliminary Sputum Sputum Culture - Preliminary 01/19/23 21:10 Wound Culture - Preliminary Other - Other 01/19/23 21:10 Anaerobic Culture - Preliminary Peritoneal Fluid Assessment and Plan Assessment: Acute abdomen secondary to ischemic bowel status emergent post exploratory laparotomy, total colectomy and end ileostomy Severe Sepsis and septic shock Acute hypoxic respiratory failure requiring intubation and mechanical ventilation Metabolic acidosis Lactic acidosis Acute kidney injury Metabolic encephalopathy secondary to above History of COPD Diabetes mellitus History of hypertension History of ulcerative colitis status post back surgery History of depression History of nicotine dependence Plan: Patient already on antibiotics and IV fluids, recommended to continue with the same Zosyn and sodium bicarb Continue with intubation and mechanical ventilation with pulmonary/critical care team on the case Continue with pressors, currently on levophed Nephrology consult Postop care for surgery primary team Pulmonary/critical care team consult on the case Multiple acidosis, monitor creatinine and labs. continue with insulin sliding scale and monitor sugar closely Labs and medication were reviewed. Monitor labs and vitals. DVT and GI prophylaxis. Further recommendations as per clinical course of the patient DVT prophylaxis: Mechanical, the use of anticoagulation is deferred to surgery team, currently on Lovenox GI Prophylaxis: Protonix Prognosis is very guarded Discussed with the staff thank you for consulting us
--- NOTE | 2023-01-21 10:54 | P.NPCON ---
History of Present Illness - Reason for Consult acute renal failure - History of Present Illness Patient is a 67-year-old female with history of COPD, type 2 diabetes, hypertension admitted to the hospital with complaints of abdominal pain. CT of the abdomen showed significant colon distention with mesenteric edema and colonic wall pneumatosis. Patient was taken for emergent explorative laparotomy and had lysis of adhesions with total abdominal colectomy and end ileostomy on 01/19/2023. Patient has been on pressors. Levo fed is currently being decreased. Urine output at about 30 ML per hour. Serum creatinine was 1.89 on initial admission and peaked at 3.0. It is 2.9 today. Previous creatinine 1.0 on 11/23/2022. Currently maintained on bicarb drip Review of Systems As per HPI 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 Past Anesthesia/Blood Transfusion Reactions: No Reported Reaction Past Psychological History: Depression Smoking Status: Current every day smoker Past Alcohol Use History: None Reported Past Drug Use History: None Reported Additional Drug Use History / Comment(s): Patient states she smokes about 10 cig/day. - Past Family History Father Family Medical History: Coronary Artery Disease (CAD) Mother Family Medical History: Diabetes Mellitus Medications and Allergies Home Medications Medication Instructions Recorded Confirmed Type Gabapentin 800 mg PO TID 08/17/20 01/19/23 History Insulin Glargine,Hum.rec.anlog 55 unit SQ BID 08/17/20 01/19/23 History [Lantus Solostar Pen] Oxybutynin Chloride [Oxybutynin 10 mg PO DAILY 08/17/20 01/19/23 History Chloride ER] Topiramate 50 mg PO BID 08/17/20 01/19/23 History metFORMIN HCL [Glucophage] 1,000 mg PO BID 08/17/20 01/19/23 History Cyclobenzaprine [Flexeril] 10 mg PO BID PRN 09/17/21 01/19/23 History FLUoxetine HCL [PROzac] 40 mg PO DAILY@1600 09/17/21 01/19/23 History Fluticasone Nasal Avery [Flonase 1 - 2 spr EA NOSTRIL HS 09/17/21 01/19/23 History Nasal Avery] Albuterol Inhaler [Ventolin Hfa 2 puff INHALATION RT-QID PRN 12/14/21 01/19/23 History Inhaler] HYDROcodone/APAP 10-325MG [Hiller 1 tab PO Q6H PRN 12/14/21 01/19/23 History 10-325] Levothyroxine Sodium 88 mcg PO DAILY 12/14/21 01/19/23 History QUEtiapine [SEROquel] 400 mg PO HS 12/14/21 01/19/23 History Atorvastatin [Lipitor] 40 mg PO DAILY@1600 06/16/22 01/19/23 History Cholecalciferol (Vitamin D3) 125 mcg PO DAILY@1600 06/16/22 01/19/23 History [Vitamin D3 (125 MCG = 5,000 IU)] Fluticasone Propion/Salmeterol 1 puff INHALATION RT-BID 06/16/22 01/19/23 History [Advair 500-50 Diskus] Multivitamins, Thera [Multivitamin 1 tab PO DAILY@1600 06/16/22 01/19/23 History (formulary)] Triamcinolone 0.1% Cream [Kenalog 1 applic TOPICAL BID PRN 06/16/22 01/19/23 History 0.1% Cream] Vitamin E (Dl,Tocopheryl Acet) 400 unit PO DAILY@1600 06/16/22 01/19/23 History [Vitamin E (400 Iu = 180 mg)] Aspirin 325 mg PO DAILY #30 tab 06/18/22 01/19/23 Rx Lactulose [Cephulac] 30 gm PO BID PRN 7 Days #14 ml 09/04/22 01/19/23 Rx Ibuprofen [Motrin] 600 mg PO TID PRN 11/18/22 01/19/23 History Loratadine 10 mg PO DAILY 11/18/22 01/19/23 History amLODIPine [Norvasc] 5 mg PO DAILY 30 Days #30 tab 11/23/22 01/19/23 Rx Famotidine [Pepcid] 20 mg PO BID 01/19/23 01/19/23 History Levocetirizine Dihydrochloride 5 mg PO BID 01/19/23 01/19/23 History [Xyzal] Mupirocin 2% Oint [Bactroban 2% 1 applic TOPICAL BID 01/19/23 01/19/23 History Oint] hydrOXYzine HCL [Atarax] 25 mg PO TID PRN 01/19/23 01/19/23 History Allergies Allergy/AdvReac Type Severity Reaction Status Date / Time No Known Allergies Allergy Verified 01/19/23 13:50 Physical Exam Vitals: Vital Signs Temp Pulse Resp BP Pulse Ox FiO2 01/21/23 10:00 99.3 F 111 H 24 129/56 98 01/21/23 09:45 112 H 24 129/56 99 01/21/23 09:30 112 H 24 129/56 98 01/21/23 09:15 112 H 24 129/56 98 01/21/23 09:00 113 H 24 121/55 98 01/21/23 08:45 113 H 21 121/55 98 01/21/23 08:35 112 H 01/21/23 08:30 113 H 24 98 01/21/23 08:18 112 H 01/21/23 08:15 113 H 24 121/55 98 01/21/23 08:14 40 01/21/23 08:00 99.7 F H 112 H 24 98 40 01/21/23 07:45 112 H 24 98 01/21/23 07:30 114 H 32 H 98 01/21/23 07:15 115 H 24 118/53 98 01/21/23 07:00 115 H 29 H 98 01/21/23 06:45 115 H 24 98 01/21/23 06:30 114 H 24 98 01/21/23 06:15 115 H 24 98 01/21/23 06:00 99.2 F 115 H 24 99 01/21/23 05:45 114 H 24 98 01/21/23 05:30 114 H 24 98 01/21/23 05:15 113 H 24 98 01/21/23 05:00 114 H 24 127/56 98 01/21/23 04:45 114 H 21 98 01/21/23 04:30 115 H 21 98 01/21/23 04:15 114 H 21 98 01/21/23 04:07 111 H 01/21/23 04:01 108 H 40 01/21/23 04:00 98.9 F 108 H 24 120/53 98 40 01/21/23 03:30 109 H 24 98 01/21/23 03:00 109 H 24 113/51 98 01/21/23 02:30 109 H 24 98 01/21/23 02:00 110 H 24 133/56 98 01/21/23 01:30 112 H 24 98 01/21/23 01:00 112 H 21 99 01/21/23 00:30 114 H 24 98 01/21/23 00:27 113 H 01/21/23 00:21 40 01/21/23 00:19 112 H 01/21/23 00:16 112 H 24 98 01/21/23 00:00 99.1 F 113 H 25 H 128/54 98 40 01/20/23 23:30 112 H 24 98 01/20/23 23:00 112 H 26 H 122/52 98 01/20/23 22:30 111 H 24 98 01/20/23 22:00 99.4 F 111 H 24 112/49 98 01/20/23 21:30 111 H 24 98 01/20/23 21:00 111 H 24 132/51 98 01/20/23 20:34 40 01/20/23 20:33 106 H 01/20/23 20:30 107 H 24 99 01/20/23 20:17 110 H 01/20/23 20:00 100.2 F H 112 H 24 126/54 99 40 01/20/23 19:30 110 H 24 100 01/20/23 19:00 110 H 25 H 100 01/20/23 18:30 111 H 24 123/52 100 01/20/23 18:00 112 H 24 99 01/20/23 17:30 110 H 24 124/59 100 01/20/23 17:00 110 H 24 99 01/20/23 16:30 110 H 24 137/57 99 01/20/23 16:02 106 H 01/20/23 16:00 98.7 F 108 H 25 H 100 50 01/20/23 15:50 112 H 01/20/23 15:46 40 01/20/23 15:30 111 H 24 129/55 99 01/20/23 15:00 112 H 24 98 01/20/23 14:30 112 H 24 122/54 98 01/20/23 14:15 113 H 21 122/54 98 01/20/23 14:00 113 H 24 112/53 98 01/20/23 13:45 113 H 24 112/53 98 01/20/23 13:30 114 H 24 98 01/20/23 13:15 114 H 24 112/53 98 01/20/23 13:00 115 H 24 98 01/20/23 12:45 115 H 24 98 01/20/23 12:30 116 H 24 98 01/20/23 12:15 114 H 24 109/42 99 01/20/23 12:02 110 H 01/20/23 12:00 99.8 F H 104 H 24 100 50 01/20/23 11:45 112 H 24 100 01/20/23 11:41 112 H 01/20/23 11:37 40 01/20/23 11:30 113 H 24 99 01/20/23 11:15 112 H 25 H 115/49 99 01/20/23 11:00 111 H 24 99 Intake and Output 01/20/23 01/21/23 01/21/23 22:59 06:59 14:59 Intake Total 2085.828 1037.697 433.343 Output Total 510 605 230 Balance 1575.828 432.697 203.343 Intake: IV 1839 824 412 ACETAMINOPHEN IV (For NPO 200 100 100 ) 1,000 mg In Empty Bag 1 bag @ 400 mls/hr IVPB Q6H [facility] Rx#:[id number] Dextrose 5% in Water 1, 600 600 300 000 ml @ 75 mls/hr IV . [id number] [facility] with Sodium Bicarb (1 Meq/ml) 100 ml Rx#:[id number] Piperacillin-Tazobactam 3 100 .375 gm In Sodium Chloride 0.9% 100 ml @ 25 mls/hr IVPB Q8H [facility] Rx#: [id number] Sodium Chloride 0.9% 1, 1000 000 ml @ 999 mls/hr IV . Q1H1M [facility] Rx#:[id number] pressure bag 39 24 12 Intake, IV Titration 246.828 213.697 21.343 Amount Norepinephrine 4 mg In 127.895 70.435 21.343 Sodium Chloride 0.9% 250 ml @ 0.03 MCG/KG/MIN 9. 851 mls/hr IV .Q24H [facility] Rx#:[id number] propofoL 1,000 mg In 118.933 143.262 Empty Bag 1 bag @ 15 MCG/ KG/MIN 7.757 mls/hr IV . [id number] [facility] Rx#:[id number] Output: Drainage 220 270 70 Left Lower Abdomen 220 270 70 Urine 290 335 160 Other: Voiding Method Indwelling Catheter Indwelling Catheter Indwelling Catheter Weight 94.5 kg ABP, PAP, CO, CI - Last 8 Hours Arterial Blood Pressure 151/51 Arterial Blood Pressure 146/52 Arterial Blood Pressure 139/48 Arterial Blood Pressure 137/48 Arterial Blood Pressure 140/48 Arterial Blood Pressure 129/47 Arterial Blood Pressure 137/50 Arterial Blood Pressure 133/49 Arterial Blood Pressure 123/48 Arterial Blood Pressure 114/47 Arterial Blood Pressure 122/47 Arterial Blood Pressure 130/49 Arterial Blood Pressure 131/47 Arterial Blood Pressure 130/47 Arterial Blood Pressure 151/50 Arterial Blood Pressure 153/50 Arterial Blood Pressure 164/49 Arterial Blood Pressure 143/66 Arterial Blood Pressure 135/51 Arterial Blood Pressure 130/52 Arterial Blood Pressure 167/163 Arterial Blood Pressure 134/46 Arterial Blood Pressure 137/47 Arterial Blood Pressure 129/47 Arterial Blood Pressure 130/47 Arterial Blood Pressure 123/46 Patient is sedated and on the vent Examination of the heart S1 and S2 Examination of the lungs bilateral breath sounds are heard Abdomen is soft it is currently dressed Drains are noted. Examination lower extremity shows right BKA. No significant edema noted CHEMISTRY LABORATORY TECHNICIAN examination cannot be performed Results - Lab Results Most recent lab results ABG pH 7.27 (7.35-7.45) L 01/21/23 05:56 ABG pCO2 39 mmHg (35-45) 01/21/23 05:56 ABG pO2 136 mmHg (83-108) H 01/21/23 05:56 ABG HCO3 18 mmol/L (21-25) L 01/21/23 05:56 ABG O2 Saturation 99.8 % (94-97) H 01/21/23 05:56 Calcium 6.7 mg/dL (8.4-10.2) L 01/21/23 05:04 Magnesium 2.2 mg/dL (1.6-2.3) 01/20/23 05:28 01/21/23 05:04 01/21/23 05:04 Assessment and Plan Assessment: 1. Acute kidney injury, ischemic ATN currently nonoliguric. No renal abnormalities mentioned on CT. UA shows WBCs 33 2+ protein no blood. 2. Septic shock associated with ischemic bowel 3. Lactic acidosis and anion gap metabolic acidosis associated with ischemic bowel septic shock and acute kidney injury 4. Hyponatremia associated with hypotonic fluid with acute kidney injury 5. Acute hypoxic respiratory failure currently on the vent Plan: Change bicarb drip to increase sodium bicarb to 150 mEq Continue to wean pressors Continue antibiotics Repeat labs in a.m. Thank you for the consultation. We will continue to follow the patient with you during her hospitalization
[2023-01-21] MEDS: DEXTROSE 5% IN WATER 1,000 ML with SODIUM BICARB (1 MEQ/ML) 150 ML IV SCH (11:20)
[2023-01-21 12:05] LABS: Glucose,Whole Blood 222 mg/dL (70-110)
--- NOTE | 2023-01-21 12:38 | P.PN ---
Subjective Progress Note Date: 01/21/23 Principal diagnosis: Abdominal pain. Pulmonary/critical care consult dated 01/19/2023. 67-year-old female seen in the emergency room, by Dr. Montoya. She came into the emergency room, today, January 19, complaining of abdominal pain. Been going on for about 7-10 days. She apparently has not had a bowel movement for about 7 days according to her and her . Her apparently found her on the floor today. He is not sure how long she was on the ground. The patient denied any vomiting, but she did have nausea. There was no diarrhea. The patient apparently has had this problem in the past, and was supposed to have a colonoscopy with one of the surgeons but that never took place. She was admitted last in November, for hyponatremia. Her primary care physician is Dr. Kennedy. We were consulted, because the surgeon felt that she might need an ICU bed. Currently, she is on room air. An IV is connected. She does have a history of COPD, and diabetes. She also has a history of hypertension. She is a daily tobacco user, and she apparently does also vape. White count 25.6, with a normal hemoglobin, hematocrit, and platelet count. The patient's sodium is 134, potassium 4.3, chlorides 100, CO2 14, anion gap 20, BUN 20, creatinine 1.89. Glucose 69. Lactic acid 7.2. Repeat 7.3. The urine is yellow and cloudy with 2+ protein. Leukocyte esterase is large positive. She has 33 WBCs, and rare bacteria. Chest x-ray shows small lung volumes, and some basilar atelectasis. No acute abnormality noted. Computed tomography scan of the belly shows martinez-colonic distention, and possible ischemic colitis. Progress note dated 01/20/2023. Abdominal pain and abdominal distention. She ended up going to the operating room yesterday, and having exploratory laparotomy, lysis of adhesions, total colectomy, ileostomy, placement of Diaz-Benítez drains, and placement of the wound VAC. The patient is currently in the intensive care unit, on the mechanical ventilator. Settings include the volume assist control, rate 18, tidal volume 400, FiO2 40%, and PEEP of 5. Gases show pO2 of 97, pCO2 of 54, and a pH is 7.1. The patient's rate was increased from 18 to 24 breaths per minute, to help with the respiratory acidosis component of her acid-base disturbance. In addition, the patient is on propofol at 25 mcg/kg/m, norepinephrine at 3.6 mcg/m, and is getting a sodium bicarbonate drip, with 2 ampules of sodium bicarbonate and D5W at 75 mL an hour. Today is postop day #1. White count 19.5, hemoglobin 11.2, hematocrit 34.9, with a normal platelet count. Sodium 134, potassium 5.3, chlorides 106, CO2 13, anion gap 15, BUN 23, and creatinine 2.18. Chest x-ray shows a properly placed left subclavian triple-lumen catheter. This is in the area of the superior vena cava/right atrium junction. The rest of the x-ray looks fine. Progress note dated 01/21/2023. 67-year-old female who was seen in the emergency department, initially, for abdominal pain and abdominal distention. The patient had a exploratory laparotomy, lysis of adhesions, total colectomy, ileostomy, placement of Diaz-Benítez drains, and also placement of a wound VAC. She remains in the ICU, on the ventilator. Ventilator settings include the volume assist control, rate 24, tidal volume 400, FiO2 40%, and PEEP of 5. Blood gases show pO2 136, pCO2 39, pH is 7.27. The patient remains on propofol at 35 mcg/kg/m, norepinephrine at 1.9 mcg/m, and a sodium bicarbonate drip, with 2 ampules of sodium bicarbonate and D5W at 75 mL an hour. The patient also remains on Zosyn. Her FiO2 is reduced on the 30%, we will start TPN on this patient, we will also check a cortisol level, and TSH. In addition, we will check a pro-calcitonin level. Current laboratory data includes a white count 16.7, hemoglobin 9.6, hematocrit 29.1, and a platelet count of 157,000. Sodium 129, potassium 4.5, chlorides 101, CO2 16, anion gap 12, BUN 36, and creatinine 2.99. Chest x-ray is evaluated, and shows diffuse infiltrates. The chest x-ray in my opinion is unchanged. Objective - Vital Signs Vital signs: Vital Signs Temp 99.3 F 01/21/23 10:00 Pulse 105 H 01/21/23 11:45 Resp 24 05/07/23 11:45 BP 102/53 01/21/23 11:45 Pulse Ox 98 01/21/23 11:45 FiO2 30 01/21/23 11:34 Intake & Output 01/20/23 01/21/23 01/21/23 18:59 06:59 18:59 Intake Total 2595.718 1625.918 723.343 Output Total 835 890 370 Balance 1760.718 735.918 353.343 Weight 90.8 kg 94.5 kg Intake: IV 2366 1239 602 ACETAMINOPHEN IV (For NPO 200 200 100 ) 1,000 mg In Empty Bag 1 bag @ 400 mls/hr IVPB Q6H [facility] Rx#:[id number] Dextrose 5% in Water 1, 900 900 300 000 ml @ 75 mls/hr IV . [id number] [facility] with Sodium Bicarb (1 Meq/ml) 100 ml Rx#:[id number] Dextrose 5% in Water 1, 75 000 ml @ 75 mls/hr IV . [id number] [facility] with Sodium Bicarb (1 Meq/ml) 150 ml Rx#:[id number] Piperacillin-Tazobactam 3 200 100 100 .375 gm In Sodium Chloride 0.9% 100 ml @ 25 mls/hr IVPB Q8H [facility] Rx#: [id number] Sodium Chloride 0.9% 1, 1000 000 ml @ 999 mls/hr IV . Q1H1M [facility] Rx#:[id number] pressure bag 66 39 27 Intake, IV Titration 229.718 386.918 121.343 Amount Norepinephrine 4 mg In 138.020 124.723 21.343 Sodium Chloride 0.9% 250 ml @ 0.03 MCG/KG/MIN 9. 851 mls/hr IV .Q24H [facility] Rx#:[id number] propofoL 1,000 mg In 91.698 262.195 100 Empty Bag 1 bag @ 15 MCG/ KG/MIN 7.757 mls/hr IV . [id number] [facility] Rx#:[id number] Output: Drainage 440 380 150 Left Lower Abdomen 440 380 150 Urine 395 510 220 Other: Voiding Method Indwelling Catheter Indwelling Catheter Indwelling Catheter ABP, PAP, CO, CI - Last Documented Arterial Blood Pressure 128/46 - Exam No acute distress, sedated, with an orally placed endotracheal tube. Saturation is 98%. HEENT examination is grossly unremarkable. Neck supple. Full range of motion. No adenopathy thyromegaly or neck vein distention. Cardiovascular examination reveals regular rhythm rate. S1-S2 normal. No S3 or S4. No discernible murmur noted. Heart sounds are distant. Heart rate is 99 bpm. Lungs reveal scattered bilateral rhonchi, which are moderate in severity. No wheezes or crackles. Saturations are 98%. Breath sounds are equal bilaterally. Abdomen soft, with ileostomy noted. Diaz-Benítez drains are noted. Wound VAC is noted. Extremities are intact. No cyanosis clubbing or edema. The patient has a right below the knee amputation. Skin is without rash or lesion. Neurologic examination cannot be evaluated at this time. - Labs CBC & Chem 7: 01/21/23 05:04 01/21/23 05:04 Labs: Abnormal Lab Results - Last 24 Hours (Table) 01/20/23 01/20/23 01/20/23 Range/Units 14:10 16:34 20:02 WBC (3.8-10.6) k/uL RBC (3.80-5.40) m/uL Hgb (11.4-16.0) gm/dL Hct (34.0-46.0) % Neutrophils # (1.3-7.7) k/uL ABG pH (7.35-7.45) ABG pO2 (83-108) mmHg ABG HCO3 (21-25) mmol/L ABG O2 Saturation (94-97) % Sodium (137-145) mmol/L Carbon Dioxide (22-30) mmol/L BUN (7-17) mg/dL Creatinine (0.52-1.04) mg/dL Glucose (74-99) mg/dL POC Glucose (mg/dL) 243 H 246 H (70-110) mg/dL Plasma Lactic Acid Kashif 3.9 H* (0.7-2.0) mmol/L Calcium (8.4-10.2) mg/dL AST (14-36) U/L ALT (4-34) U/L Alkaline Phosphatase (38-126) U/L Total Protein (6.3-8.2) g/dL Albumin (3.5-5.0) g/dL 01/21/23 01/21/23 01/21/23 Range/Units 04:21 04:21 05:04 WBC 17.5 H 16.7 H (3.8-10.6) k/uL RBC 3.24 L 3.21 L (3.80-5.40) m/uL Hgb 9.7 L D 9.6 L (11.4-16.0) gm/dL Hct 29.4 L 29.1 L (34.0-46.0) % Neutrophils # 14.9 H 14.2 H (1.3-7.7) k/uL ABG pH (7.35-7.45) ABG pO2 (83-108) mmHg ABG HCO3 (21-25) mmol/L ABG O2 Saturation (94-97) % Sodium 131 L (137-145) mmol/L Carbon Dioxide 18 L (22-30) mmol/L BUN 35 H (7-17) mg/dL Creatinine 3.01 H (0.52-1.04) mg/dL Glucose 234 H (74-99) mg/dL POC Glucose (mg/dL) (70-110) mg/dL Plasma Lactic Acid Kashif (0.7-2.0) mmol/L Calcium 6.7 L (8.4-10.2) mg/dL AST (14-36) U/L ALT (4-34) U/L Alkaline Phosphatase (38-126) U/L Total Protein (6.3-8.2) g/dL Albumin (3.5-5.0) g/dL 01/21/23 01/21/23 01/21/23 Range/Units 05:04 05:56 06:11 WBC (3.8-10.6) k/uL RBC (3.80-5.40) m/uL Hgb (11.4-16.0) gm/dL Hct (34.0-46.0) % Neutrophils # (1.3-7.7) k/uL ABG pH 7.27 L (7.35-7.45) ABG pO2 136 H (83-108) mmHg ABG HCO3 18 L (21-25) mmol/L ABG O2 Saturation 99.8 H (94-97) % Sodium 129 L (137-145) mmol/L Carbon Dioxide 16 L (22-30) mmol/L BUN 36 H (7-17) mg/dL Creatinine 2.99 H (0.52-1.04) mg/dL Glucose 226 H (74-99) mg/dL POC Glucose (mg/dL) 237 H (70-110) mg/dL Plasma Lactic Acid Kashif (0.7-2.0) mmol/L Calcium 6.7 L (8.4-10.2) mg/dL AST 207 H (14-36) U/L ALT 42 H (4-34) U/L Alkaline Phosphatase 219 H (38-126) U/L Total Protein 4.4 L (6.3-8.2) g/dL Albumin 2.2 L (3.5-5.0) g/dL 01/21/23 Range/Units 12:03 WBC (3.8-10.6) k/uL RBC (3.80-5.40) m/uL Hgb (11.4-16.0) gm/dL Hct (34.0-46.0) % Neutrophils # (1.3-7.7) k/uL ABG pH (7.35-7.45) ABG pO2 (83-108) mmHg ABG HCO3 (21-25) mmol/L ABG O2 Saturation (94-97) % Sodium (137-145) mmol/L Carbon Dioxide (22-30) mmol/L BUN (7-17) mg/dL Creatinine (0.52-1.04) mg/dL Glucose (74-99) mg/dL POC Glucose (mg/dL) 222 H (70-110) mg/dL Plasma Lactic Acid Kashif (0.7-2.0) mmol/L Calcium (8.4-10.2) mg/dL AST (14-36) U/L ALT (4-34) U/L Alkaline Phosphatase (38-126) U/L Total Protein (6.3-8.2) g/dL Albumin (3.5-5.0) g/dL Microbiology - Last 24 Hours (Table) 01/19/23 21:10 Gram Stain - Preliminary Other - Other Wound Culture - Preliminary 01/20/23 03:52 Gram Stain - Preliminary Sputum Sputum Culture - Preliminary 01/19/23 21:10 Anaerobic Culture - Preliminary Peritoneal Fluid Assessment and Plan Assessment: Severe abdominal distention, abdominal pain, constipation, and severe martinez- colonic distention, status post exploratory laparotomy, lysis of adhesions, tot al colectomy, ileostomy, abdominal washout, placement of Diaz-Benítez drains, and placement of a wound VAC, postop day #2. S/P intubation and mechanical ventilation, beginning on January 19, for respiratory failure. Acute lactic acidemia, with anion gap metabolic acidosis. History of diabetes mellitus. History of stress urinary incontinence. History of hypothyroidism. History of hyperlipidemia. History of COPD from ongoing tobacco use. History of right below the knee amputation. History of depression. Recent admission in November of this year for hyponatremia. Plan: Plan dated 01/19/2023. The patient will be admitted to the intensive care unit for further monitoring and management. I spoke to Dr. Montoya about the patient, and also the ICU charge nurse. We will continue to follow and make recommendations along the way. She is yet to be seen by the surgeon. The surgeon, apparently has experience with this patient. The patient was to have a colonoscopy in the past, but never has scheduled it. Prognosis is guarded. Labs, x-rays, and medications are reviewed. Plan dated 01/20/2023. The patient was seen yesterday in the emergency department. She came in with severe abdominal distention and abdominal pain. It was going on for at least a week and maybe longer. The patient went to the operating room yesterday, and had an exploratory laparotomy, lysis of adhesions, total colectomy, ileostomy, and placement of a wound VAC, and Diaz-Benítez drains. Currently, the patient is on mechanical ventilator, with a severe respiratory and metabolic acidosis. She remains on propofol, and norepinephrine. She's on prednisone bicarbonate drip. We will continue to follow and make recommendations along the way. Prognosis remains very guarded. Plan dated 01/21/2023. The patient is seen, and examined. Labs, x-rays, and medications are reviewed. The patient's FiO2 was reduced to 30%. We'll check a pro-calcitonin level, cortisol level, and TSH. The patient remains on Zosyn. Culture data is negative. The patient also was on propofol, norepinephrine, and a sodium bicarbonate drip. The patient is being seen by nephrology. We will continue to follow make recommendations along the way. The patient's overall prognosis remains very guarded. Time with Patient: Greater than 30
--- NOTE | 2023-01-21 16:00 | P.PN ---
Subjective Progress Note Date: 01/21/23 Principal diagnosis: Ischemic colitis patient is a 67-year-old female with a past medical history significant for type 2 diabetes mellitus COPD morbid obesity did have a history of right below the knee amputation and left big toe amputation history of smoking presenting to the hospital with a 2-week history of abdominal pain , patient has been diagnosed with ischemic colitis in this patient with status post subtotal colectomy and ileostomy. On today's evaluation that is 01/21/2023, the patient did have a low-grade fever of 99.7F, patient is requiring low-dose pressor support, FiO2 is down to 30%, no significant purulent secretions through the ET and no output in ileostomy has been reported by the nursing staff Objective - Vital Signs Vital signs: Vital Signs Temp 99.4 F 01/21/23 12:00 Pulse 106 H 01/21/23 13:00 Resp 24 01/21/23 13:00 BP 112/55 01/21/23 12:15 Pulse Ox 98 01/21/23 13:00 FiO2 30 01/21/23 12:00 Intake & Output 01/20/23 01/21/23 01/21/23 18:59 06:59 18:59 Intake Total 2595.718 6447.114 5015.153 Output Total 835 890 470 Balance 1760.718 735.918 537.153 Weight 90.8 kg 94.5 kg Intake: IV 2936 1239 764 ACETAMINOPHEN IV (For NPO 200 200 100 ) 1,000 mg In Empty Bag 1 bag @ 400 mls/hr IVPB Q6H [facility] Rx#:[id number] Dextrose 5% in Water 1, 900 900 300 000 ml @ 75 mls/hr IV . [id number] [facility]A with Sodium Bicarb (1 Meq/ml) 100 ml Rx#:[id number] Dextrose 5% in Water 1, 225 000 ml @ 75 mls/hr IV . [id number] [facility]A with Sodium Bicarb (1 Meq/ml) 150 ml Rx#:[id number] Piperacillin-Tazobactam 3 200 100 100 .375 gm In Sodium Chloride 0.9% 100 ml @ 25 mls/hr IVPB Q8H [facility] Rx#: [id number] Sodium Chloride 0.9% 1, 1000 000 ml @ 999 mls/hr IV . Q1H1M ONE Rx#:[id number] pressure bag 66 39 39 Intake, IV Titration 229.718 386.918 243.153 Amount Norepinephrine 4 mg In 138.020 124.723 70.158 Sodium Chloride 0.9% 250 ml @ 0.03 MCG/KG/MIN 9. 851 mls/hr IV .Q24H [facility]A Rx#:[id number] propofoL 1,000 mg In 91.698 262.195 172.995 Empty Bag 1 bag @ 15 MCG/ KG/MIN 7.757 mls/hr IV . [id number] [facility]A Rx#:[id number] Output: Drainage 440 380 170 Left Lower Abdomen 440 380 170 Urine 395 510 300 Other: Voiding Method Indwelling Catheter Indwelling Catheter Indwelling Catheter ABP, PAP, CO, CI - Last Documented Arterial Blood Pressure 135/48 - Exam GENERAL DESCRIPTION: An elderly female intubated on the vent RESPIRATORY SYSTEM: Unlabored breathing , decreased breath sounds at bases HEART: S1 S2 regular rate and rhythm , ABDOMEN: Soft , midline incision is intact EXTREMITIES: Right BK stump incision is healed - Labs CBC & Chem 7: 01/21/23 05:04 01/21/23 05:04 Labs: Abnormal Lab Results - Last 24 Hours (Table) 01/20/23 01/20/23 01/21/23 Range/Units 16:34 20:02 04:21 WBC 17.5 H (3.8-10.6) k/uL RBC 3.24 L (3.80-5.40) m/uL Hgb 9.7 L D (11.4-16.0) gm/dL Hct 29.4 L (34.0-46.0) % Neutrophils # 14.9 H (1.3-7.7) k/uL ABG pH (7.35-7.45) ABG pO2 (83-108) mmHg ABG HCO3 (21-25) mmol/L ABG O2 Saturation (94-97) % Sodium (137-145) mmol/L Carbon Dioxide (22-30) mmol/L BUN (7-17) mg/dL Creatinine (0.52-1.04) mg/dL Glucose (74-99) mg/dL POC Glucose (mg/dL) 243 H 246 H (70-110) mg/dL Calcium (8.4-10.2) mg/dL AST (14-36) U/L ALT (4-34) U/L Alkaline Phosphatase (38-126) U/L Total Protein (6.3-8.2) g/dL Albumin (3.5-5.0) g/dL 01/21/23 01/21/23 01/21/23 Range/Units 04:21 05:04 05:04 WBC 16.7 H (3.8-10.6) k/uL RBC 3.21 L (3.80-5.40) m/uL Hgb 9.6 L (11.4-16.0) gm/dL Hct 29.1 L (34.0-46.0) % Neutrophils # 14.2 H (1.3-7.7) k/uL ABG pH (7.35-7.45) ABG pO2 (83-108) mmHg ABG HCO3 (21-25) mmol/L ABG O2 Saturation (94-97) % Sodium 131 L 129 L (137-145) mmol/L Carbon Dioxide 18 L 16 L (22-30) mmol/L BUN 35 H 36 H (7-17) mg/dL Creatinine 3.01 H 2.99 H (0.52-1.04) mg/dL Glucose 234 H 226 H (74-99) mg/dL POC Glucose (mg/dL) (70-110) mg/dL Calcium 6.7 L 6.7 L (8.4-10.2) mg/dL AST 207 H (14-36) U/L ALT 42 H (4-34) U/L Alkaline Phosphatase 219 H (38-126) U/L Total Protein 4.4 L (6.3-8.2) g/dL Albumin 2.2 L (3.5-5.0) g/dL 01/21/23 01/21/23 01/21/23 Range/Units 05:56 06:11 12:03 WBC (3.8-10.6) k/uL RBC (3.80-5.40) m/uL Hgb (11.4-16.0) gm/dL Hct (34.0-46.0) % Neutrophils # (1.3-7.7) k/uL ABG pH 7.27 L (7.35-7.45) ABG pO2 136 H (83-108) mmHg ABG HCO3 18 L (21-25) mmol/L ABG O2 Saturation 99.8 H (94-97) % Sodium (137-145) mmol/L Carbon Dioxide (22-30) mmol/L BUN (7-17) mg/dL Creatinine (0.52-1.04) mg/dL Glucose (74-99) mg/dL POC Glucose (mg/dL) 237 H 222 H (70-110) mg/dL Calcium (8.4-10.2) mg/dL AST (14-36) U/L ALT (4-34) U/L Alkaline Phosphatase (38-126) U/L Total Protein (6.3-8.2) g/dL Albumin (3.5-5.0) g/dL Microbiology - Last 24 Hours (Table) 01/20/23 03:52 Gram Stain - Preliminary Sputum Sputum Culture - Preliminary 01/19/23 21:10 Gram Stain - Preliminary Other - Other Wound Culture - Preliminary 01/19/23 21:10 Anaerobic Culture - Preliminary Peritoneal Fluid Assessment and Plan (1) Ischemic colitis Current Visit: Yes Status: Acute Code(s): K55.9 - VASCULAR DISORDER OF INTESTINE, UNSPECIFIED SNOMED Code(s): 88383751 (2) Sepsis Current Visit: No Status: Acute Code(s): A41.9 - SEPSIS, UNSPECIFIED ORGANISM SNOMED Code(s): 32037317 Plan: 1patient presented to hospital abdominal pain has been diagnosed with ischemic colitis in this patient infusion of septic shock with low-grade fever tachycardia elevated white count elevated lactic acid source being ischemic large bowel status post subtotal colectomy and end ileostomy we will need to cover for the enteric gram-negative both aerobes and anaerobes abdominal culture, which are currently pending 2-patient to continue Zosyn 3.375 g every 8 hours and monitor clinical course closely Time with Patient: Less than 30
[2023-01-21 17:35] LABS: Glucose,Whole Blood 240 mg/dL (70-110)
[2023-01-22 00:08] LABS: Glucose,Whole Blood 173 mg/dL (70-110)
[2023-01-22] MEDS: PIPERACILLIN-TAZOBACTAM 3.375 GM in SODIUM CHLORIDE 0.9% 100 ML IVPB SCH ×2 (00:23→11:18)
[2023-01-22] MEDS: INSULIN ASPART (NovoLOG) 100 UNIT/ML VIAL SQ SCH ×4 (00:24→18:37)
--- NOTE | 2023-01-22 00:38 | P.PN ---
Subjective Progress Note Date: 01/22/23 CHIEF COMPLAINT: Acute abdomen with ischemic bowel HISTORY OF PRESENT ILLNESS: The patient is a 67 year old female with infarct large bowel status post total abdominal colectomy. She remains intubated and sedated. Urine output still marginal. She still on pressors. REVIEW OF ORGAN SYSTEMS: Low-grade temperature 99.7. Full ventilatory support. Urine output marginal. PHYSICAL EXAM: VITALS: Reviewed CONSTITUTIONAL: Well developed and intubated EYES: Conjuctivae without sclera icterus. Extraocular movements grossly intact. HEAD, EARS, NOSE, THROAT: Moist buccal mucosa. Head is atraumatic, normocephalic. Hears conversational speech. No nasal drainage. NECK: Supple. No JV distention. No thyroidomegaly. RESPIRATORY: On full mechanical ventilation. CARDIOVASCULAR: Tachycardic ABDOMEN: Nondistended. Dressing clean dry and intact with incisional wound VAC. MUSCULOSKELETAL: No clubbing cyanosis or edema. Right below-knee amputee SKIN: Warm and well perfused with good skin turgor. NEUROLOGIC: Sedated PSYCH: Sedated CLINCAL LABS: Reviewed. WBC elevated with sepsis, leukocytosis pending from 26,000-19,000, down to 16,000. Creatinine elevated 1.89-2.21, up to 2.99. ABGs demonstrated acidosis but improved ASSESSMENT: 1. Acute abdomen with active bowel 2. Hypertensive heart disease with congestive heart failure 3. Morbid obesity due to excess calories, BMI over 34.8 4. Acute renal failure due to dehydration 5. History of lower extremity amputee 6. Chronic obstructive pulmonary disease 7. Diabetes type 2, insulin-dependent with diabetic nephropathy 8. Gastroesophageal reflux disease 9. Hypotension due to hypovolemia 10. Lactic acidosis 11. Septic shock due to bowel 12. Status post total abdominal colectomy PLAN: 1. Cultures pending for peritoneal fluid and bowel 2. Continue antibiotics 3. Nephrology consultation for acute renal failure 4. Continue ventilatory support and ICU management. 5. She remains in critical condition Objective - Vital Signs Vital signs: Vital Signs Temp 98.7 F 01/21/23 20:00 Pulse 103 H 01/21/23 23:31 Resp 18 01/22/23 00:00 BP 140/64 01/21/23 22:15 Pulse Ox 97 01/21/23 23:00 FiO2 30 01/22/23 00:00 Intake & Output 01/21/23 01/21/23 01/22/23 06:59 18:59 06:59 Intake Total 1083.418 3549.735 636.868 Output Total 890 860 475 Balance 735.918 657.735 161.868 Weight 94.5 kg Intake: IV 1239 1269 505 ACETAMINOPHEN IV (For NPO 200 200 100 ) 1,000 mg In Empty Bag 1 bag @ 400 mls/hr IVPB Q6H [facility] Rx#:[id number] Dextrose 5% in Water 1, 900 300 000 ml @ 75 mls/hr IV . [id number] [facility] with Sodium Bicarb (1 Meq/ml) 100 ml Rx#:[id number] Dextrose 5% in Water 1, 600 375 000 ml @ 75 mls/hr IV . [id number] [facility] with Sodium Bicarb (1 Meq/ml) 150 ml Rx#:[id number] Piperacillin-Tazobactam 3 100 100 .375 gm In Sodium Chloride 0.9% 100 ml @ 25 mls/hr IVPB Q8H [facility] Rx#: [id number] pressure bag 39 69 30 Intake, IV Titration 386.918 248.735 131.868 Amount Norepinephrine 4 mg In 124.723 75.740 38.965 Sodium Chloride 0.9% 250 ml @ 0.03 MCG/KG/MIN 9. 851 mls/hr IV .Q24H [facility] Rx#:[id number] propofoL 1,000 mg In 262.195 172.995 92.903 Empty Bag 1 bag @ 15 MCG/ KG/MIN 7.757 mls/hr IV . [id number] [facility] Rx#:[id number] Output: Drainage 380 270 100 Left Lower Abdomen 380 270 100 Urine 510 590 375 Other: Voiding Method Indwelling Catheter Indwelling Catheter Indwelling Catheter ABP, PAP, CO, CI - Last Documented Arterial Blood Pressure 127/48 - Labs CBC & Chem 7: 01/21/23 05:04 01/21/23 05:04 Labs: Abnormal Lab Results - Last 24 Hours (Table) 01/21/23 01/21/23 01/21/23 Range/Units 04:21 04:21 05:04 WBC 17.5 H 16.7 H (3.8-10.6) k/uL RBC 3.24 L 3.21 L (3.80-5.40) m/uL Hgb 9.7 L D 9.6 L (11.4-16.0) gm/dL Hct 29.4 L 29.1 L (34.0-46.0) % Neutrophils # 14.9 H 14.2 H (1.3-7.7) k/uL ABG pH (7.35-7.45) ABG pO2 (83-108) mmHg ABG HCO3 (21-25) mmol/L ABG O2 Saturation (94-97) % Sodium 131 L (137-145) mmol/L Carbon Dioxide 18 L (22-30) mmol/L BUN 35 H (7-17) mg/dL Creatinine 3.01 H (0.52-1.04) mg/dL Glucose 234 H (74-99) mg/dL POC Glucose (mg/dL) (70-110) mg/dL Calcium 6.7 L (8.4-10.2) mg/dL AST (14-36) U/L ALT (4-34) U/L Alkaline Phosphatase (38-126) U/L Total Protein (6.3-8.2) g/dL Albumin (3.5-5.0) g/dL 01/21/23 01/21/23 01/21/23 Range/Units 05:04 05:56 06:11 WBC (3.8-10.6) k/uL RBC (3.80-5.40) m/uL Hgb (11.4-16.0) gm/dL Hct (34.0-46.0) % Neutrophils # (1.3-7.7) k/uL ABG pH 7.27 L (7.35-7.45) ABG pO2 136 H (83-108) mmHg ABG HCO3 18 L (21-25) mmol/L ABG O2 Saturation 99.8 H (94-97) % Sodium 129 L (137-145) mmol/L Carbon Dioxide 16 L (22-30) mmol/L BUN 36 H (7-17) mg/dL Creatinine 2.99 H (0.52-1.04) mg/dL Glucose 226 H (74-99) mg/dL POC Glucose (mg/dL) 237 H (70-110) mg/dL Calcium 6.7 L (8.4-10.2) mg/dL AST 207 H (14-36) U/L ALT 42 H (4-34) U/L Alkaline Phosphatase 219 H (38-126) U/L Total Protein 4.4 L (6.3-8.2) g/dL Albumin 2.2 L (3.5-5.0) g/dL 01/21/23 01/21/23 01/21/23 Range/Units 12:03 17:32 23:55 WBC (3.8-10.6) k/uL RBC (3.80-5.40) m/uL Hgb (11.4-16.0) gm/dL Hct (34.0-46.0) % Neutrophils # (1.3-7.7) k/uL ABG pH (7.35-7.45) ABG pO2 (83-108) mmHg ABG HCO3 (21-25) mmol/L ABG O2 Saturation (94-97) % Sodium (137-145) mmol/L Carbon Dioxide (22-30) mmol/L BUN (7-17) mg/dL Creatinine (0.52-1.04) mg/dL Glucose (74-99) mg/dL POC Glucose (mg/dL) 222 H 240 H 173 H (70-110) mg/dL Calcium (8.4-10.2) mg/dL AST (14-36) U/L ALT (4-34) U/L Alkaline Phosphatase (38-126) U/L Total Protein (6.3-8.2) g/dL Albumin (3.5-5.0) g/dL Microbiology - Last 24 Hours (Table) 01/20/23 03:52 Gram Stain - Preliminary Sputum Sputum Culture - Preliminary 01/19/23 21:10 Gram Stain - Preliminary Other - Other Wound Culture - Preliminary
[2023-01-22] MEDS: DEXTROSE 5% IN WATER 1,000 ML with SODIUM BICARB (1 MEQ/ML) 150 ML IV SCH (02:45)
[2023-01-22] MEDS: IPRATROPIUM-ALBUTEROL 3 ML NEB INHALATION SCH ×5 (03:23→19:53)
[2023-01-22] MEDS: ACETAMINOPHEN IV (For NPO) 1,000 MG in EMPTY BAG 1 BAG IVPB SCH ×4 (03:37→21:16)
[2023-01-22] MEDS: HYDROmorphone 1 MG/ML 1 ML SYRINGE IVP PRN ×4 (03:37→19:27)
[2023-01-22 04:15] LABS: Basophils # (A) 0.1 k/uL (0-0.2); Basophils % (A) 0 %; Eosinophils # (A) 0.4 k/uL (0-0.7); Eosinophils % (A) 3 %; HCT 27.3 % (34.0-46.0); HGB 9.2 gm/dL (11.4-16.0); Lymphocytes # (A) 1.2 k/uL (1.0-4.8); Lymphocytes % (A) 7 %; MCH 30.1 pg (25.0-35.0); MCHC 33.6 g/dL (31.0-37.0); MCV 89.5 fL (80.0-100.0); Mean Platelet Volume 7.5; Monocytes # (A) 0.3 k/uL (0-1.0); Monocytes % (A) 2 %; Neutrophils # (A) 15.7 k/uL (1.3-7.7); Neutrophils % (A) 88 %; Platelet Count 159 k/uL (150-450); RBC 3.05 m/uL (3.80-5.40); RDW 14.3 % (11.5-15.5); WBC 17.9 k/uL (3.8-10.6)
[2023-01-22 04:22] LABS: Calcium 6.7 mg/dL (8.4-10.2); Potassium 4.2 mmol/L (3.5-5.1)
[2023-01-22 05:10] LABS: ABG HCO3 23 mmol/L (21-25); ABG Oxygen Saturation 98.1 % (94-97); ABG PCO2 40 mmHg (35-45); ABG PH 7.37 (7.35-7.45); ABG PO2 89 mmHg (83-108); ABG TCO2 24 mmol/L (19-24)
[2023-01-22 05:12] LABS: Allen Test Performed? no
[2023-01-22 06:11] LABS: Glucose,Whole Blood 172 mg/dL (70-110)
--- NOTE | 2023-01-22 07:34 | XR ---
EXAMINATION TYPE: XR chest 1V portable DATE OF EXAM: 01/22/2023 COMPARISON: 01/21/2023 HISTORY: Shortness of breath TECHNIQUE: Single frontal view of the chest is obtained. FINDINGS: Bilateral areas of consolidation are seen greater on the left with small effusions. ET tub e, NG tube, central line stable. No pneumothorax. Heart remains enlarged. Chronic deformity of the sh oulder. IMPRESSION: Stable x-ray correlate for CHF versus pneumonia.
[2023-01-22] MEDS: CHLORHEXIDINE GLUCONATE 15 ML CUP MUCOUS MEM SCH ×2 (08:14→21:16)
[2023-01-22] MEDS: ENOXAPARIN 30 MG/0.3 ML SYRINGE SQ SCH (08:14)
[2023-01-22] MEDS: PANTOPRAZOLE 40 MG/10 ML VIAL IV SCH (08:14)
--- NOTE | 2023-01-22 09:11 | P.PN ---
Subjective Progress Note Date: 01/22/23 67-year-old female patient is being seen in follow-up on 01/22/2023. A complicated case of abdominal distention, stooling infection requiring surgical intervention along with multiple medical problems and comorbidities P she initially presented to us with abdominal pain and she has not had a bowel mov ement for more than a week. She had significant abdominal distention. She was taken to the operating room and the patient underwent laparotomy, lysis of adhesions, total colectomy, ileostomy and the patient is currently postop day #3. She has been intubated and kept on a mechanical ventilator since. For now, the patient is still on a mechanical ventilator. She is a propofol which is running at 35 mcg/kg/m and she is adequately sedated and symptoms mechanical ventilator. She is on assist-control mode of mechanical ventilation at the rate of 24 with a rate of 24, tidal volume of 400, FiO2 of 30% and a PEEP of 5. Chest x-ray shows cardiomegaly. Some limited infiltrates in the left lung base and the right lower lobe lateral segment. Orotracheal tube is in a good location. The patient also has a triple-lumen catheter in the left subclavian. NG tube is also in good location. For now, the output from the NG tube is minimal. Her IV fluids are running at a rate of 75 mL an hour and the fluid is in the form of a bicarb infusion. She is on no pressors at this point in time in the urine output is in order of 5200 mL an hour. In terms of her electrolytes, the patient's sodium level has been dropping and it's down to 129. BUN is at 40 with a creatinine of 3.47 and a potassium level is at 4.2. Her serum bicarb is improved. She was as low as 13 and she is currently up to 20. Nevertheless, she is developing an acute kidney injury. Her creatinine at time of admission was 1.8 from a normal baseline. She has developed that he worsening of renal function the creatinine is up to 3.47. CAT scan of the abdomen and the pelvis that was done on 01/19/2023 showed no evidence of any hydronephrosis he had she had pancolonic distention with cecum dilatation which was up to 9.4 cm in size. At the same time, her white cell count has dropped down to 17.9 from as high as 25. Hemoglobin is stable at 9.2 and a platelet count is at 159. In terms of cultures, sputum culture has been negative. Abdominal wound cultures were taken and that is also still pending for now and the patient is covered with IV Zosyn. She is afebrile. She is having episodes of low-grade fever. She is on IV Tylenol. She remains hemodynamically stable. The patient remains nothing by mouth for now. The patient has a YASMINE drain located in the left lower quadrant and the output is in order of 200 mL over the past 8 hours. The output is serosanguineous. Her lactic acid level dropped from 7.3 down to 1.8. Blood sugars under adequate control and the patient is taking NovoLog insulin sliding scale coverage. She takes Lantus 55 units twice a day at home. She is also on a combination of Seroquel and Topamax and Prozac at home. Objective - Vital Signs Vital signs: Vital Signs Temp 99.9 F H 01/22/23 08:00 Pulse 111 H 01/22/23 08:33 Resp 30 H 01/22/23 08:00 BP 120/59 01/22/23 08:00 Pulse Ox 96 01/22/23 08:00 FiO2 30 01/22/23 08:29 Intake & Output 01/21/23 01/22/23 01/22/23 18:59 06:59 18:59 Intake Total 4878.470 0410.450 263.533 Output Total 860 960 261 Balance 657.735 693.450 2.533 Weight 96.5 kg Intake: IV 1269 1272 162 ACETAMINOPHEN IV (For NPO 200 200 ) 1,000 mg In Empty Bag 1 bag @ 400 mls/hr IVPB Q6H [facility] Rx#:[id number] Dextrose 5% in Water 1, 300 000 ml @ 75 mls/hr IV . [id number] [facility]A with Sodium Bicarb (1 Meq/ml) 100 ml Rx#:[id number] Dextrose 5% in Water 1, 600 900 150 000 ml @ 75 mls/hr IV . [id number] [facility] with Sodium Bicarb (1 Meq/ml) 150 ml Rx#:[id number] Piperacillin-Tazobactam 3 100 100 .375 gm In Sodium Chloride 0.9% 100 ml @ 25 mls/hr IVPB Q8H [facility] Rx#: [id number] pressure bag 69 72 12 Intake, IV Titration 248.735 381.450 101.533 Amount ACETAMINOPHEN IV (For NPO 100 ) 1,000 mg In Empty Bag 1 bag @ 400 mls/hr IVPB Q6H [facility] Rx#:[id number] Norepinephrine 4 mg In 75.740 106.662 1.533 Sodium Chloride 0.9% 250 ml @ 0.03 MCG/KG/MIN 9. 851 mls/hr IV .Q24H [facility] Rx#:[id number] propofoL 1,000 mg In 172.995 274.788 Empty Bag 1 bag @ 15 MCG/ KG/MIN 7.757 mls/hr IV . [id number] [facility] Rx#:[id number] Tube Feeding 0 Other 0 Output: Drainage 270 200 50 Left Lower Abdomen 270 200 50 Urine 590 760 211 Other: Voiding Method Indwelling Catheter Indwelling Catheter Indwelling Catheter ABP, PAP, CO, CI - Last Documented Arterial Blood Pressure 133/51 - Exam No acute distress, sedated, with an orally placed endotracheal tube. The patient is sedated and the patient is calm and comfortable. The patient is intubated by a #8 orotracheal tube. She is currently on propofol. Head exam was generally normal. There was no scleral icterus or corneal arcus. Mucous membranes were moist. HEENT examination is grossly unremarkable. Neck supple. Full range of motion. No adenopathy thyromegaly or neck vein distention. Cardiovascular examination reveals regular rhythm rate. S1-S2 normal. No S3 or S4. No discernible murmur noted. Heart sounds are distant. Lungs reveal scattered bilateral rhonchi, which are moderate in severity. No wheezes or crackles. Breath sounds are equal bilaterally. Abdomen soft, with ileostomy noted. Diaz-Benítez drains are noted. In the YASMINE drain is in the left lower quadrant. Bowel sounds are hypoactive. No abdominal distention. No significant output through the ileostomy at this point in time. Extremities are intact. No cyanosis clubbing or edema. The patient has a right below the knee amputation. The patient also has several amputated toes in the left foot. She has diminished pulses in the left lower extremity. No significant edema. No cyanosis. No digital clubbing. The patient has an arterial line in her right radial artery. Skin is without rash or lesion. Neurologic examination , the patient is sedated. She is very easily arousable. - Labs CBC & Chem 7: 01/22/23 03:58 01/22/23 03:58 Labs: Abnormal Lab Results - Last 24 Hours (Table) 01/21/23 01/21/23 01/21/23 Range/Units 12:03 17:32 23:55 WBC (3.8-10.6) k/uL RBC (3.80-5.40) m/uL Hgb (11.4-16.0) gm/dL Hct (34.0-46.0) % Neutrophils # (1.3-7.7) k/uL ABG O2 Saturation (94-97) % Sodium (137-145) mmol/L Chloride (98-107) mmol/L Carbon Dioxide (22-30) mmol/L BUN (7-17) mg/dL Creatinine (0.52-1.04) mg/dL Glucose (74-99) mg/dL POC Glucose (mg/dL) 222 H 240 H 173 H (70-110) mg/dL Calcium (8.4-10.2) mg/dL 01/22/23 01/22/23 01/22/23 Range/Units 03:58 03:58 05:07 WBC 17.9 H (3.8-10.6) k/uL RBC 3.05 L (3.80-5.40) m/uL Hgb 9.2 L (11.4-16.0) gm/dL Hct 27.3 L (34.0-46.0) % Neutrophils # 15.7 H (1.3-7.7) k/uL ABG O2 Saturation 98.1 H (94-97) % Sodium 129 L (137-145) mmol/L Chloride 97 L (98-107) mmol/L Carbon Dioxide 20 L (22-30) mmol/L BUN 40 H (7-17) mg/dL Creatinine 3.47 H (0.52-1.04) mg/dL Glucose 151 H (74-99) mg/dL POC Glucose (mg/dL) (70-110) mg/dL Calcium 6.7 L (8.4-10.2) mg/dL 01/22/23 Range/Units 06:09 WBC (3.8-10.6) k/uL RBC (3.80-5.40) m/uL Hgb (11.4-16.0) gm/dL Hct (34.0-46.0) % Neutrophils # (1.3-7.7) k/uL ABG O2 Saturation (94-97) % Sodium (137-145) mmol/L Chloride (98-107) mmol/L Carbon Dioxide (22-30) mmol/L BUN (7-17) mg/dL Creatinine (0.52-1.04) mg/dL Glucose (74-99) mg/dL POC Glucose (mg/dL) 172 H (70-110) mg/dL Calcium (8.4-10.2) mg/dL Microbiology - Last 24 Hours (Table) 01/20/23 03:52 Gram Stain - Preliminary Sputum Sputum Culture - Preliminary 01/19/23 21:10 Gram Stain - Preliminary Other - Other Wound Culture - Preliminary Assessment and Plan Plan: Severe abdominal distention, abdominal pain, constipation, and severe martinez-c olonic distention, status post exploratory laparotomy, lysis of adhesions, total colectomy, ileostomy, abdominal washout, placement of Diaz-Benítez drains, and placement of a wound VAC, postop day #3 , currently nothing by mouth. The patient was given an ileostomy which is nonfunctional at this point in time and there is no significant output. YASMINE drain is in place. Hemodynamically stable on no pressors. S/P intubation and mechanical ventilation, beginning on January 19, for respiratory failure. Acute lactic acidemia, with anion gap metabolic acidosis, recovered Non-anion gap metabolic acidosis and the patient is currently on bicarb infusion at the rate of 75 mL an hour. Acidosis is essentially improving and there is improvement in acid base status Acute kidney injury with progressive worsening of the renal function and a creatinine is up to 3.47, this is a nonoliguric ATN, the findings on the case Acute leukocytosis, improving Obesity with a BMI of 38.9 Severe peripheral vascular disease with below-knee amputation on the right and several and predated toes on the left History of diabetes mellitus, maintain on Lantus insulin outpatient basis currently on NovoLog sliding scale coverage History of stress urinary incontinence. History of hypothyroidism. History of hyperlipidemia. History of COPD from ongoing tobacco use. History of depression. hyponatremia, being monitored currently on a bicarb infusion Plan: Continue ventilator support, no vent changes to be done for today continue bicarb infusion Monitor the renal function and avoid any nephrotoxic agents. The findings on the case Continue IV Zosyn Keep the patient nothing by mouth for now pending some functionality of the ileostomy Keep the NG tube in place Moderate output from the NG tube hold sedation and check a set weaning parameters and we will going to evaluate the patient's readiness to wean I personally do not think that the patient is ready for weaning at this point in time. However, it's reasonable to assess his mentation and her weaning parameters on a daily basis No pressors for now Slight scale insulin coverage Lovenox 30 mg subcu portably prophylaxis Condition is critical and we'll continue to follow. Evaluation was done in more than 30 minutes. Time with Patient: Greater than 30
--- NOTE | 2023-01-22 10:39 | P.PN ---
Subjective Progress Note Date: 01/22/23 Principal diagnosis: Ischemic colitis patient is a 67-year-old female with a past medical history significant for type 2 diabetes mellitus COPD morbid obesity did have a history of right below the knee amputation and left big toe amputation history of smoking presenting to the hospital with a 2-week history of abdominal pain , patient has been diagnosed with ischemic colitis in this patient with status post subtotal colectomy and ileostomy. On today's evaluation that is 01/22/2023, the patient did have a low-grade fever of 100.1F this morning, patient is requiring low-dose pressor support, FiO2 is is currently stable and 30%, no significant purulent secretions through the ET and no output in ileostomy has been reported by the nursing staff Objective - Vital Signs Vital signs: Vital Signs Temp 99.9 F H 01/22/23 08:00 Pulse 110 H 01/22/23 09:00 Resp 24 01/22/23 09:00 BP 120/59 01/22/23 08:00 Pulse Ox 97 01/22/23 09:00 FiO2 30 01/22/23 09:00 Intake & Output 01/21/23 01/22/23 01/22/23 18:59 06:59 18:59 Intake Total 4149.234 3612.450 403.050 Output Total 860 960 385 Balance 657.735 693.450 18.050 Weight 96.5 kg Intake: IV 1269 1272 243 ACETAMINOPHEN IV (For NPO 200 200 ) 1,000 mg In Empty Bag 1 bag @ 400 mls/hr IVPB Q6H [facility] Rx#:[id number] Dextrose 5% in Water 1, 300 000 ml @ 75 mls/hr IV . [id number] [facility] with Sodium Bicarb (1 Meq/ml) 100 ml Rx#:[id number] Dextrose 5% in Water 1, 600 900 225 000 ml @ 75 mls/hr IV . [id number] [facility] with Sodium Bicarb (1 Meq/ml) 150 ml Rx#:[id number] Piperacillin-Tazobactam 3 100 100 .375 gm In Sodium Chloride 0.9% 100 ml @ 25 mls/hr IVPB Q8H [facility] Rx#: [id number] pressure bag 69 72 18 Intake, IV Titration 248.735 381.450 160.050 Amount ACETAMINOPHEN IV (For NPO 100 ) 1,000 mg In Empty Bag 1 bag @ 400 mls/hr IVPB Q6H [facility] Rx#:[id number] Norepinephrine 4 mg In 75.740 106.662 1.533 Sodium Chloride 0.9% 250 ml @ 0.03 MCG/KG/MIN 9. 851 mls/hr IV .Q24H [facility] Rx#:[id number] propofoL 1,000 mg In 172.995 274.788 58.517 Empty Bag 1 bag @ 15 MCG/ KG/MIN 7.757 mls/hr IV . [id number] [facility] Rx#:[id number] Tube Feeding 0 Other 0 Output: Drainage 270 200 50 Left Lower Abdomen 270 200 50 Urine 590 760 335 Other: Voiding Method Indwelling Catheter Indwelling Catheter Indwelling Catheter ABP, PAP, CO, CI - Last Documented Arterial Blood Pressure 112/43 - Exam GENERAL DESCRIPTION: An elderly female intubated on the vent RESPIRATORY SYSTEM: Unlabored breathing , decreased breath sounds at bases HEART: S1 S2 regular rate and rhythm , ABDOMEN: Soft , midline incision is intact EXTREMITIES: Right BK stump incision is healed - Labs CBC & Chem 7: 01/22/23 03:58 01/22/23 03:58 Labs: Abnormal Lab Results - Last 24 Hours (Table) 01/21/23 01/21/23 01/21/23 Range/Units 12:03 17:32 23:55 WBC (3.8-10.6) k/uL RBC (3.80-5.40) m/uL Hgb (11.4-16.0) gm/dL Hct (34.0-46.0) % Neutrophils # (1.3-7.7) k/uL ABG O2 Saturation (94-97) % Sodium (137-145) mmol/L Chloride (98-107) mmol/L Carbon Dioxide (22-30) mmol/L BUN (7-17) mg/dL Creatinine (0.52-1.04) mg/dL Glucose (74-99) mg/dL POC Glucose (mg/dL) 222 H 240 H 173 H (70-110) mg/dL Calcium (8.4-10.2) mg/dL 01/22/23 01/22/23 01/22/23 Range/Units 03:58 03:58 05:07 WBC 17.9 H (3.8-10.6) k/uL RBC 3.05 L (3.80-5.40) m/uL Hgb 9.2 L (11.4-16.0) gm/dL Hct 27.3 L (34.0-46.0) % Neutrophils # 15.7 H (1.3-7.7) k/uL ABG O2 Saturation 98.1 H (94-97) % Sodium 129 L (137-145) mmol/L Chloride 97 L (98-107) mmol/L Carbon Dioxide 20 L (22-30) mmol/L BUN 40 H (7-17) mg/dL Creatinine 3.47 H (0.52-1.04) mg/dL Glucose 151 H (74-99) mg/dL POC Glucose (mg/dL) (70-110) mg/dL Calcium 6.7 L (8.4-10.2) mg/dL 01/22/23 Range/Units 06:09 WBC (3.8-10.6) k/uL RBC (3.80-5.40) m/uL Hgb (11.4-16.0) gm/dL Hct (34.0-46.0) % Neutrophils # (1.3-7.7) k/uL ABG O2 Saturation (94-97) % Sodium (137-145) mmol/L Chloride (98-107) mmol/L Carbon Dioxide (22-30) mmol/L BUN (7-17) mg/dL Creatinine (0.52-1.04) mg/dL Glucose (74-99) mg/dL POC Glucose (mg/dL) 172 H (70-110) mg/dL Calcium (8.4-10.2) mg/dL Microbiology - Last 24 Hours (Table) 01/20/23 03:52 Gram Stain - Final Sputum Sputum Culture - Final 01/19/23 21:10 Gram Stain - Preliminary Other - Other Wound Culture - Preliminary Assessment and Plan (1) Ischemic colitis Current Visit: Yes Status: Acute Code(s): K55.9 - VASCULAR DISORDER OF INTESTINE, UNSPECIFIED SNOMED Code(s): 89016344 (2) Sepsis Current Visit: No Status: Acute Code(s): A41.9 - SEPSIS, UNSPECIFIED ORGANISM SNOMED Code(s): 42815619 Plan: 1patient presented to hospital abdominal pain has been diagnosed with ischemic colitis in this patient infusion of septic shock with low-grade fever tachycardia elevated white count elevated lactic acid source being ischemic large bowel status post subtotal colectomy and end ileostomy we will need to cover for the enteric gram-negative both aerobes and anaerobes abdominal culture, which are currently pending 2-patient did have a low-grade fever and white count is still elevated, patient to continue Zosyn 3.375 g every 8 hours and monitor clinical course closely Time with Patient: Less than 30
--- NOTE | 2023-01-22 10:53 | P.PN ---
Subjective Patient is seen for follow-up for acute kidney injury. Status post emergent explorative laparotomy and lysis of edema just with total abdominal colectomy and end ileostomy on 01/19/2023 Pressors are being decreased Urine output at about 50-75 mL per hour Serum creatinine increased to 3.47 today. Sodium remains at 129 and CO2 has improved to 20 from 16 on lytes. Patient remains intubated. FiO2 at 30% Objective - Vital Signs Vital signs: Vital Signs Temp 99.9 F H 01/22/23 08:00 Pulse 106 H 01/22/23 10:00 Resp 24 01/22/23 10:00 BP 120/59 01/22/23 08:00 Pulse Ox 97 01/22/23 10:00 FiO2 30 01/22/23 10:00 Intake & Output 01/21/23 01/22/23 01/22/23 18:59 06:59 18:59 Intake Total 4754.752 9281.450 500.468 Output Total 860 960 440 Balance 657.735 693.450 60.468 Weight 96.5 kg Intake: IV 1269 1272 324 ACETAMINOPHEN IV (For NPO 200 200 ) 1,000 mg In Empty Bag 1 bag @ 400 mls/hr IVPB Q6H [facility] Rx#:[id number] Dextrose 5% in Water 1, 300 000 ml @ 75 mls/hr IV . [id number] [facility] with Sodium Bicarb (1 Meq/ml) 100 ml Rx#:[id number] Dextrose 5% in Water 1, 600 900 300 000 ml @ 75 mls/hr IV . [id number] [facility] with Sodium Bicarb (1 Meq/ml) 150 ml Rx#:[id number] Piperacillin-Tazobactam 3 100 100 .375 gm In Sodium Chloride 0.9% 100 ml @ 25 mls/hr IVPB Q8H [facility] Rx#: [id number] pressure bag 69 72 24 Intake, IV Titration 248.735 381.450 176.468 Amount ACETAMINOPHEN IV (For NPO 100 ) 1,000 mg In Empty Bag 1 bag @ 400 mls/hr IVPB Q6H [facility] Rx#:[id number] Norepinephrine 4 mg In 75.740 106.662 1.533 Sodium Chloride 0.9% 250 ml @ 0.03 MCG/KG/MIN 9. 851 mls/hr IV .Q24H [facility] Rx#:[id number] propofoL 1,000 mg In 172.995 274.788 74.935 Empty Bag 1 bag @ 15 MCG/ KG/MIN 7.757 mls/hr IV . [id number] [facility] Rx#:[id number] Tube Feeding 0 Other 0 Output: Drainage 270 200 50 Left Lower Abdomen 270 200 50 Urine 590 760 390 Other: Voiding Method Indwelling Catheter Indwelling Catheter Indwelling Catheter ABP, PAP, CO, CI - Last Documented Arterial Blood Pressure 114/44 - Exam Patient is sedated and on the vent Examination of the heart S1 and S2 Examination of the lungs bilateral breath sounds are heard Abdomen is soft it is currently dressed Drains are noted. Examination lower extremity shows right BKA. No significant edema noted REVENUE MANAGER examination cannot be performed - Labs CBC & Chem 7: 01/22/23 03:58 01/22/23 03:58 Labs: Abnormal Lab Results - Last 24 Hours (Table) 01/21/23 01/21/23 01/21/23 Range/Units 12:03 17:32 23:55 WBC (3.8-10.6) k/uL RBC (3.80-5.40) m/uL Hgb (11.4-16.0) gm/dL Hct (34.0-46.0) % Neutrophils # (1.3-7.7) k/uL ABG O2 Saturation (94-97) % Sodium (137-145) mmol/L Chloride (98-107) mmol/L Carbon Dioxide (22-30) mmol/L BUN (7-17) mg/dL Creatinine (0.52-1.04) mg/dL Glucose (74-99) mg/dL POC Glucose (mg/dL) 222 H 240 H 173 H (70-110) mg/dL Calcium (8.4-10.2) mg/dL 01/22/23 01/22/23 01/22/23 Range/Units 03:58 03:58 05:07 WBC 17.9 H (3.8-10.6) k/uL RBC 3.05 L (3.80-5.40) m/uL Hgb 9.2 L (11.4-16.0) gm/dL Hct 27.3 L (34.0-46.0) % Neutrophils # 15.7 H (1.3-7.7) k/uL ABG O2 Saturation 98.1 H (94-97) % Sodium 129 L (137-145) mmol/L Chloride 97 L (98-107) mmol/L Carbon Dioxide 20 L (22-30) mmol/L BUN 40 H (7-17) mg/dL Creatinine 3.47 H (0.52-1.04) mg/dL Glucose 151 H (74-99) mg/dL POC Glucose (mg/dL) (70-110) mg/dL Calcium 6.7 L (8.4-10.2) mg/dL 01/22/23 Range/Units 06:09 WBC (3.8-10.6) k/uL RBC (3.80-5.40) m/uL Hgb (11.4-16.0) gm/dL Hct (34.0-46.0) % Neutrophils # (1.3-7.7) k/uL ABG O2 Saturation (94-97) % Sodium (137-145) mmol/L Chloride (98-107) mmol/L Carbon Dioxide (22-30) mmol/L BUN (7-17) mg/dL Creatinine (0.52-1.04) mg/dL Glucose (74-99) mg/dL POC Glucose (mg/dL) 172 H (70-110) mg/dL Calcium (8.4-10.2) mg/dL Microbiology - Last 24 Hours (Table) 01/20/23 03:52 Gram Stain - Final Sputum Sputum Culture - Final 01/19/23 21:10 Gram Stain - Preliminary Other - Other Wound Culture - Preliminary Assessment and Plan Assessment: 1. Acute kidney injury, ischemic ATN currently nonoliguric. No renal abnormalities mentioned on CT. UA shows WBCs 33, 2+ protein no blood. Urine output has improved and serum creatinine expected to decrease in the next 24-48 hours. 2. Septic shock associated with ischemic bowel 3. Lactic acidosis and anion gap metabolic acidosis associated with ischemic bowel septic shock and acute kidney injury 4. Hyponatremia associated with hypotonic fluid with acute kidney injury 5. Acute hypoxic respiratory failure currently on the vent Plan: Change bicarb drip to half-normal saline with 150 mEq of sodium bicarb until 10 PM tonight and subsequently switched to normal saline. Repeat labs in a.m.
[2023-01-22] MEDS ORDERED: SODIUM CHLORIDE 0.45% 1,000 ML with SODIUM BICARB (1 MEQ/ML) 150 ML IV SCH ×2 (11:00)
[2023-01-22 11:22] LABS: Magnesium 2.1 mg/dL (1.6-2.3); Phosphorus 5.3 mg/dL (2.5-4.5)
[2023-01-22 11:27] LABS: Glucose,Whole Blood 164 mg/dL (70-110)
[2023-01-22] MEDS ORDERED: MVI, ADULT NO.4 WITH VIT K 10 ML, TRACE (CONC-1ML/DOSE) 1 ML, SODIUM ACETATE 30 MEQ, PO... IV ONE ×7 (13:00)
--- NOTE | 2023-01-22 13:26 | P.PN ---
Subjective Progress Note Date: 01/22/23 CHIEF COMPLAINT: Acute abdomen with ischemic bowel HISTORY OF PRESENT ILLNESS: Postop day #3 status post exploratory laparotomy with total abdominal colectomy and end ileostomy, lysis of adhesions. Patient remains in the ICU on mechanical ventilation. She is currently off the Levophed. She's undergoing weaning trial currently CPAP think propofol is on hold. YASMINE drain with torn 40 mL serosanguineous through the night and 50 this morning. Culture was obtained of the fluid. Patient has been having low-grade temps. She's been mildly tachycardic. White count has gone up from 16-17. Creatinine is worsened at 3.47 she's followed by nephrology. Sodium is 129. PHYSICAL EXAM: VITAL SIGNS: Reviewed GENERAL: Well-developed in no acute distress. HEENT: No sclera icterus. Extraocular movements grossly intact. Moist buccal mucosa. Head is atraumatic, normocephalic. Hears conversational speech. No nasal drainage. NECK: Supple without lymphadenopathy. CHEST: Non-labored respirations and equal bilateral excursions. CARDIOVASCULAR: Palpable 2+ radial pulses. ABDOMEN: Soft. Nondistended. Prevana wound vac in place. YASMINE drain with serosanguineous output MUSCULOSKELETAL: No clubbing or cyanosis. NEUROLOGIC: Patient intubated and sedated PSYCH: Appropriate affect. Alert and oriented to person, place and time. SKIN: Well perfused. Good skin turgor. ASSESSMENT: 1. Acute abdomen with ischemic bowel 2. Hypertensive heart disease with congestive heart failure 3. Morbid obesity due to excess calories, BMI over 34.8 4. Acute renal failure due to dehydration 5. History of lower extremity amputee 6. Chronic obstructive pulmonary disease 7. Diabetes type 2, insulin-dependent with diabetic nephropathy 8. Gastroesophageal reflux disease 9. Hypotension due to hypovolemia 10. Lactic acidosis 11. Septic shock due to bowel 12. Status post total abdominal colectomy PLAN: -Continue ICU management -Continue supportive care -Continue antibiotics-fluid from YASMINE drain culture -TPN started for nutrition support by critical care service -Repeat labs in a.m. -GI prophylaxis Protonix and DVT prophylaxis Lovenox Physician Architectural Associate note has been reviewed by physician. Signing provider agrees with the documented findings, assessment, and plan of care. Objective - Vital Signs Vital signs: Vital Signs Temp 99.9 F H 01/22/23 08:00 Pulse 106 H 01/22/23 10:00 Resp 24 01/22/23 10:00 BP 120/59 01/22/23 08:00 Pulse Ox 97 01/22/23 10:00 FiO2 30 01/22/23 10:00 Intake & Output 01/21/23 01/22/23 01/22/23 18:59 06:59 18:59 Intake Total 7990.940 6623.450 500.468 Output Total 860 960 440 Balance 657.735 693.450 60.468 Weight 96.5 kg Intake: IV 1269 1272 324 ACETAMINOPHEN IV (For NPO 200 200 ) 1,000 mg In Empty Bag 1 bag @ 400 mls/hr IVPB Q6H [facility] Rx#:[id number] Dextrose 5% in Water 1, 300 000 ml @ 75 mls/hr IV . [id number] [facility] with Sodium Bicarb (1 Meq/ml) 100 ml Rx#:[id number] Dextrose 5% in Water 1, 600 900 300 000 ml @ 75 mls/hr IV . [id number] [facility] with Sodium Bicarb (1 Meq/ml) 150 ml Rx#:[id number] Piperacillin-Tazobactam 3 100 100 .375 gm In Sodium Chloride 0.9% 100 ml @ 25 mls/hr IVPB Q8H [facility] Rx#: [id number] pressure bag 69 72 24 Intake, IV Titration 248.735 381.450 176.468 Amount ACETAMINOPHEN IV (For NPO 100 ) 1,000 mg In Empty Bag 1 bag @ 400 mls/hr IVPB Q6H [facility] Rx#:[id number] Norepinephrine 4 mg In 75.740 106.662 1.533 Sodium Chloride 0.9% 250 ml @ 0.03 MCG/KG/MIN 9. 851 mls/hr IV .Q24H [facility] Rx#:[id number] propofoL 1,000 mg In 172.995 274.788 74.935 Empty Bag 1 bag @ 15 MCG/ KG/MIN 7.757 mls/hr IV . [id number] [facility] Rx#:[id number] Tube Feeding 0 Other 0 Output: Drainage 270 200 50 Left Lower Abdomen 270 200 50 Urine 590 760 390 Other: Voiding Method Indwelling Catheter Indwelling Catheter Indwelling Catheter ABP, PAP, CO, CI - Last Documented Arterial Blood Pressure 114/44 - Labs CBC & Chem 7: 01/22/23 03:58 01/22/23 03:58 Labs: Abnormal Lab Results - Last 24 Hours (Table) 01/21/23 01/21/23 01/21/23 Range/Units 12:03 17:32 23:55 WBC (3.8-10.6) k/uL RBC (3.80-5.40) m/uL Hgb (11.4-16.0) gm/dL Hct (34.0-46.0) % Neutrophils # (1.3-7.7) k/uL ABG O2 Saturation (94-97) % Sodium (137-145) mmol/L Chloride (98-107) mmol/L Carbon Dioxide (22-30) mmol/L BUN (7-17) mg/dL Creatinine (0.52-1.04) mg/dL Glucose (74-99) mg/dL POC Glucose (mg/dL) 222 H 240 H 173 H (70-110) mg/dL Calcium (8.4-10.2) mg/dL 01/22/23 01/22/23 01/22/23 Range/Units 03:58 03:58 05:07 WBC 17.9 H (3.8-10.6) k/uL RBC 3.05 L (3.80-5.40) m/uL Hgb 9.2 L (11.4-16.0) gm/dL Hct 27.3 L (34.0-46.0) % Neutrophils # 15.7 H (1.3-7.7) k/uL ABG O2 Saturation 98.1 H (94-97) % Sodium 129 L (137-145) mmol/L Chloride 97 L (98-107) mmol/L Carbon Dioxide 20 L (22-30) mmol/L BUN 40 H (7-17) mg/dL Creatinine 3.47 H (0.52-1.04) mg/dL Glucose 151 H (74-99) mg/dL POC Glucose (mg/dL) (70-110) mg/dL Calcium 6.7 L (8.4-10.2) mg/dL 01/22/23 Range/Units 06:09 WBC (3.8-10.6) k/uL RBC (3.80-5.40) m/uL Hgb (11.4-16.0) gm/dL Hct (34.0-46.0) % Neutrophils # (1.3-7.7) k/uL ABG O2 Saturation (94-97) % Sodium (137-145) mmol/L Chloride (98-107) mmol/L Carbon Dioxide (22-30) mmol/L BUN (7-17) mg/dL Creatinine (0.52-1.04) mg/dL Glucose (74-99) mg/dL POC Glucose (mg/dL) 172 H (70-110) mg/dL Calcium (8.4-10.2) mg/dL Microbiology - Last 24 Hours (Table) 01/19/23 21:10 Gram Stain - Final Other - Other Wound Culture - Final 01/20/23 03:52 Gram Stain - Final Sputum Sputum Culture - Final
[2023-01-22 17:47] LABS: Glucose,Whole Blood 169 mg/dL (70-110)
--- NOTE | 2023-01-22 17:47 | P.PN ---
Subjective Principal diagnosis: Ischemic colitis Patient is a 67-year-old white female with known history of COPD and tobacco use who is essentially admitted for ischemic bowel. The patient is now intubated and under appropriate consultants control. Objective - Vital Signs Vital signs: Vital Signs Temp 99.3 F 01/22/23 16:00 Pulse 104 H 01/22/23 17:00 Resp 24 01/22/23 17:00 BP 120/59 01/22/23 08:00 Pulse Ox 97 01/22/23 17:00 FiO2 30 01/22/23 16:00 Intake & Output 01/21/23 01/22/23 01/22/23 18:59 06:59 18:59 Intake Total 2884.859 4149.450 1381.664 Output Total 860 960 915 Balance 657.735 693.450 466.664 Weight 96.5 kg 96.5 kg Intake: IV 1269 1272 616 ACETAMINOPHEN IV (For NPO 200 200 100 ) 1,000 mg In Empty Bag 1 bag @ 400 mls/hr IVPB Q6H [facility] Rx#:[id number] Dextrose 5% in Water 1, 300 000 ml @ 75 mls/hr IV . [id number] [facility] with Sodium Bicarb (1 Meq/ml) 100 ml Rx#:[id number] Dextrose 5% in Water 1, 600 900 450 000 ml @ 75 mls/hr IV . [id number] [facility] with Sodium Bicarb (1 Meq/ml) 150 ml Rx#:[id number] Piperacillin-Tazobactam 3 100 100 .375 gm In Sodium Chloride 0.9% 100 ml @ 25 mls/hr IVPB Q8H [facility] Rx#: [id number] pressure bag 69 72 66 Intake, IV Titration 248.735 381.450 765.664 Amount ACETAMINOPHEN IV (For NPO 100 ) 1,000 mg In Empty Bag 1 bag @ 400 mls/hr IVPB Q6H [facility] Rx#:[id number] Norepinephrine 4 mg In 75.740 106.662 1.533 Sodium Chloride 0.9% 250 ml @ 0.03 MCG/KG/MIN 9. 851 mls/hr IV .Q24H [facility] Rx#:[id number] Sodium Acetate 30 meq 120 Potassium Chloride 20 meq Calcium Gluconate 1 gm Magnesium Sulfate gm 1 gm In Amino Acid 4.25%-D10w 1,000 ml @ 70 mls/hr IV .BY DURATION [facility] Rx#: [id number] Sodium Chloride 0.45% 1, 375 000 ml @ 75 mls/hr IV . [id number] [facility] with Sodium Bicarb (1 Meq/ml) 150 ml Rx#:[id number] propofoL 1,000 mg In 172.995 274.788 169.131 Empty Bag 1 bag @ 15 MCG/ KG/MIN 7.757 mls/hr IV . [id number] [facility] Rx#:[id number] Tube Feeding 0 Other 0 Output: Gastric Drainage 0 Drainage 270 200 205 Left Lower Abdomen 270 200 205 Medial Abdomen 0 Urine 590 760 710 Other: Voiding Method Indwelling Catheter Indwelling Catheter Indwelling Catheter ABP, PAP, CO, CI - Last Documented Arterial Blood Pressure 120/48 - Constitutional General appearance: Present: no acute distress - Respiratory Respiratory: bilateral: CTA, diminished - Cardiovascular Rhythm: regular Abnormal Heart Sounds: Absent: S3 Gallop - Gastrointestinal General gastrointestinal: Present: distended - Integumentary Integumentary: Absent: cellulitis - Psychiatric Psychiatric: Present: A&O x's 3 - Labs CBC & Chem 7: 01/22/23 03:58 01/22/23 03:58 Labs: Abnormal Lab Results - Last 24 Hours (Table) 01/21/23 01/22/23 01/22/23 Range/Units 23:55 03:58 03:58 WBC 17.9 H (3.8-10.6) k/uL RBC 3.05 L (3.80-5.40) m/uL Hgb 9.2 L (11.4-16.0) gm/dL Hct 27.3 L (34.0-46.0) % Neutrophils # 15.7 H (1.3-7.7) k/uL ABG O2 Saturation (94-97) % Sodium 129 L (137-145) mmol/L Chloride 97 L (98-107) mmol/L Carbon Dioxide 20 L (22-30) mmol/L BUN 40 H (7-17) mg/dL Creatinine 3.47 H (0.52-1.04) mg/dL Glucose 151 H (74-99) mg/dL POC Glucose (mg/dL) 173 H (70-110) mg/dL Calcium 6.7 L (8.4-10.2) mg/dL Phosphorus (2.5-4.5) mg/dL 01/22/23 01/22/23 01/22/23 Range/Units 03:58 05:07 06:09 WBC (3.8-10.6) k/uL RBC (3.80-5.40) m/uL Hgb (11.4-16.0) gm/dL Hct (34.0-46.0) % Neutrophils # (1.3-7.7) k/uL ABG O2 Saturation 98.1 H (94-97) % Sodium (137-145) mmol/L Chloride (98-107) mmol/L Carbon Dioxide (22-30) mmol/L BUN (7-17) mg/dL Creatinine (0.52-1.04) mg/dL Glucose (74-99) mg/dL POC Glucose (mg/dL) 172 H (70-110) mg/dL Calcium (8.4-10.2) mg/dL Phosphorus 5.3 H (2.5-4.5) mg/dL 01/22/23 Range/Units 11:23 WBC (3.8-10.6) k/uL RBC (3.80-5.40) m/uL Hgb (11.4-16.0) gm/dL Hct (34.0-46.0) % Neutrophils # (1.3-7.7) k/uL ABG O2 Saturation (94-97) % Sodium (137-145) mmol/L Chloride (98-107) mmol/L Carbon Dioxide (22-30) mmol/L BUN (7-17) mg/dL Creatinine (0.52-1.04) mg/dL Glucose (74-99) mg/dL POC Glucose (mg/dL) 164 H (70-110) mg/dL Calcium (8.4-10.2) mg/dL Phosphorus (2.5-4.5) mg/dL Microbiology - Last 24 Hours (Table) 01/22/23 09:45 Body Fluid Culture - Preliminary [facility] 01/19/23 21:10 Anaerobic Culture - Preliminary Peritoneal Fluid 01/19/23 21:10 Gram Stain - Final Other - Other Wound Culture - Final 01/20/23 03:52 Gram Stain - Final Sputum Sputum Culture - Final Assessment and Plan (1) Ischemic bowel disease Current Visit: Yes Status: Acute Code(s): K55.9 - VASCULAR DISORDER OF INTESTINE, UNSPECIFIED SNOMED Code(s): 65157679 (2) Ischemic colitis Current Visit: Yes Status: Acute Code(s): K55.9 - VASCULAR DISORDER OF INTESTINE, UNSPECIFIED SNOMED Code(s): 00532594 (3) COPD (chronic obstructive pulmonary disease) Current Visit: No Status: Acute Code(s): J44.9 - CHRONIC OBSTRUCTIVE PULMONARY DISEASE, UNSPECIFIED SNOMED Code(s): 41034304 (4) History of below-knee amputation of right lower extremity Current Visit: No Status: Acute Code(s): Z89.511 - ACQUIRED ABSENCE OF RIGHT LEG BELOW KNEE SNOMED Code(s): 521131251077774 (5) Opioid dependence Current Visit: No Status: Acute Code(s): F11.20 - OPIOID DEPENDENCE, UNCOMPLICATED SNOMED Code(s): 04035371 (6) Type 2 diabetes mellitus Current Visit: No Status: Acute Code(s): E11.9 - TYPE 2 DIABETES MELLITUS WITHOUT COMPLICATIONS SNOMED Code(s): 75318197 Plan: Continue to follow during his ICU management. Prognosis is guarded. Check CBC and CMP in a.m. Appreciate multiple consultants input
[2023-01-22 19:08] LABS: Basophils % (A) 0 %; Eosinophils # (A) 0.3 k/uL (0-0.7); Eosinophils % (A) 2 %; HCT 27.8 % (34.0-46.0); HGB 9.1 gm/dL (11.4-16.0); Lymphocytes % (A) 6 %; MCH 30.6 pg (25.0-35.0); MCHC 32.6 g/dL (31.0-37.0); MCV 93.8 fL (80.0-100.0); Mean Platelet Volume 7.2; Monocytes # (A) 0.5 k/uL (0-1.0); Monocytes % (A) 3 %; Neutrophils # (A) 13.6 k/uL (1.3-7.7); Neutrophils % (A) 87 %; Platelet Count 141 k/uL (150-450); RBC 2.96 m/uL (3.80-5.40); RDW 14.2 % (11.5-15.5); WBC 15.6 k/uL (3.8-10.6)
[2023-01-22] MEDS: SODIUM CHLORIDE 0.9% 1,000 ML IV SCH (22:00)
[2023-01-22 23:37] LABS: Glucose,Whole Blood 175 mg/dL (70-110)
[2023-01-23] MEDS: IPRATROPIUM-ALBUTEROL 3 ML NEB INHALATION SCH ×6 (00:10→20:46)
[2023-01-23] MEDS: PIPERACILLIN-TAZOBACTAM 3.375 GM in SODIUM CHLORIDE 0.9% 100 ML IVPB SCH ×2 (00:34→12:31)
[2023-01-23] MEDS: NOREPINEPHRINE 4 MG in SODIUM CHLORIDE 0.9% 250 ML IV SCH ×2 (00:39→23:25)
[2023-01-23] MEDS: INSULIN ASPART (NovoLOG) 100 UNIT/ML VIAL SQ SCH ×7 (00:40→17:49)
[2023-01-23] MEDS: HYDROmorphone 1 MG/ML 1 ML SYRINGE IVP PRN ×3 (03:49→19:57)
[2023-01-23] MEDS: ACETAMINOPHEN IV (For NPO) 1,000 MG in EMPTY BAG 1 BAG IVPB SCH ×4 (03:49→20:33)
[2023-01-23 04:37] LABS: Basophils % (A) 0 %; Eosinophils # (A) 0.3 k/uL (0-0.7); Eosinophils % (A) 2 %; HCT 26.6 % (34.0-46.0); HGB 8.8 gm/dL (11.4-16.0); Lymphocytes # (A) 0.8 k/uL (1.0-4.8); Lymphocytes % (A) 6 %; MCH 30.5 pg (25.0-35.0); MCV 92.7 fL (80.0-100.0); Mean Platelet Volume 7.2; Monocytes # (A) 0.4 k/uL (0-1.0); Monocytes % (A) 3 %; Neutrophils # (A) 11.2 k/uL (1.3-7.7); Neutrophils % (A) 87 %; Platelet Count 137 k/uL (150-450); RBC 2.87 m/uL (3.80-5.40); RDW 14.3 % (11.5-15.5); WBC 12.8 k/uL (3.8-10.6)
[2023-01-23 04:40] LABS: Ionized Calcium 4.6 mg/dL (4.5-5.3)
[2023-01-23 04:48] LABS: Albumin 2.2 g/dL (3.5-5.0); Magnesium 2.1 mg/dL (1.6-2.3); Phosphorus 5.5 mg/dL (2.5-4.5); Total Bilirubin 0.7 mg/dL (0.2-1.3); Total Protein 4.4 g/dL (6.3-8.2)
[2023-01-23 05:31] LABS: Glucose,Whole Blood 154 mg/dL (70-110)
[2023-01-23 06:14] LABS: ABG Base Excess -0.2 mmol/L; ABG HCO3 25 mmol/L (21-25); ABG Oxygen Saturation 99.1 % (94-97); ABG PCO2 40 mmHg (35-45); ABG PO2 111 mmHg (83-108); ABG TCO2 26 mmol/L (19-24); Allen Test Performed? Yes
[2023-01-23] MEDS: ENOXAPARIN 30 MG/0.3 ML SYRINGE SQ SCH (08:17)
[2023-01-23] MEDS: PANTOPRAZOLE 40 MG/10 ML VIAL IV SCH (08:17)
[2023-01-23] MEDS: CHLORHEXIDINE GLUCONATE 15 ML CUP MUCOUS MEM SCH ×2 (08:18→20:32)
--- NOTE | 2023-01-23 08:32 | XR ---
EXAMINATION TYPE: XR chest 1V portable DATE OF EXAM: 01/23/2023 COMPARISON: 01/22/2023 HISTORY: Shortness of breath TECHNIQUE: Single frontal view of the chest is obtained. FINDINGS: Bilateral areas of consolidation are seen greater on the left with small effusions. ET tub e, NG tube, central line stable. No pneumothorax. Heart remains enlarged. Chronic deformity of the sh oulder. IMPRESSION: Persistent left lower lobe. Bilateral pleural effusions. Correlate for pneumonia. Underl luiza venous congestion
--- NOTE | 2023-01-23 09:04 | P.PN ---
Subjective Progress Note Date: 01/23/23 Principal diagnosis: Abdominal pain This is a 67-year-old female who presented to the emergency department with complaints of abdominal pain and had not had a bowel movement for multiple days. Patient was found to have an ischemic bowel. She did have a total abdominal colectomy with ileostomy by Dr. Merida. She is seen in the ICU today, mechanically ventilated. She does have a significant history of COPD and diabetes, and is a tobacco user. Objective - Vital Signs Vital signs: Vital Signs Temp 99.1 F 01/23/23 08:00 Pulse 99 01/23/23 08:17 Resp 24 01/23/23 08:00 BP 118/55 01/23/23 00:00 Pulse Ox 97 01/23/23 08:00 FiO2 30 01/23/23 08:19 Intake & Output 01/22/23 01/23/23 01/23/23 18:59 06:59 18:59 Intake Total 6240.879 7833.354 341.642 Output Total 1045 1290 265 Balance 447.664 119.354 76.642 Weight 96.5 kg 93.5 kg Intake: IV 622 1097 262 ACETAMINOPHEN IV (For NPO 100 100 100 ) 1,000 mg In Empty Bag 1 bag @ 400 mls/hr IVPB Q6H [facility] Rx#:[id number] Dextrose 5% in Water 1, 450 150 000 ml @ 75 mls/hr IV . [id number] [facility] with Sodium Bicarb (1 Meq/ml) 150 ml Rx#:[id number] Piperacillin-Tazobactam 3 100 .375 gm In Sodium Chloride 0.9% 100 ml @ 25 mls/hr IVPB Q8H [facility] Rx#: [id number] Sodium Chloride 0.9% 1, 675 150 000 ml @ 75 mls/hr IV . [id number] [facility] Rx#:[id number] pressure bag 72 72 12 Intake, IV Titration 870.664 312.354 79.642 Amount ACETAMINOPHEN IV (For NPO 100 ) 1,000 mg In Empty Bag 1 bag @ 400 mls/hr IVPB Q6H [facility] Rx#:[id number] Mvi, Adult No.4 with Vit 150 30 30 K 10 ml Trace (Conc-1Ml/ Dose) 1 ml Sodium Acetate 30 meq Potassium Chloride 20 meq Calcium Gluconate 2 gm Magnesium Sulfate gm 1 gm In Amino Acid 4.25%-D10w 1,000 ml @ 30 mls/hr IV .Q24H [facility] Rx#:[id number] Norepinephrine 4 mg In 1.533 Sodium Chloride 0.9% 250 ml @ 0.03 MCG/KG/MIN 9. 851 mls/hr IV .Q24H [facility] Rx#:[id number] Sodium Chloride 0.45% 1, 450 75 000 ml @ 75 mls/hr IV . [id number] [facility] with Sodium Bicarb (1 Meq/ml) 150 ml Rx#:[id number] propofoL 1,000 mg In 169.131 207.354 49.642 Empty Bag 1 bag @ 15 MCG/ KG/MIN 7.757 mls/hr IV . [id number] [facility] Rx#:[id number] Tube Feeding 0 Other 0 Output: Gastric Drainage 0 50 Drainage 285 210 30 Left Lower Abdomen 285 210 30 Medial Abdomen 0 0 Urine 760 1080 185 Other: Voiding Method Indwelling Catheter Indwelling Catheter Indwelling Catheter ABP, PAP, CO, CI - Last Documented Arterial Blood Pressure 129/50 - Constitutional General appearance: Present: no acute distress - Neck Neck: Absent: lymphadenopathy, rigidity - Respiratory Respiratory: bilateral: CTA, diminished - Cardiovascular Rhythm: regular Heart sounds: normal: S1, S2 - Gastrointestinal General gastrointestinal: Present: distended - Integumentary Integumentary: Present: normal - Labs CBC & Chem 7: 01/23/23 04:08 01/23/23 04:08 Labs: Abnormal Lab Results - Last 24 Hours (Table) 01/22/23 01/22/23 01/22/23 Range/Units 03:58 11:23 17:45 WBC (3.8-10.6) k/uL RBC (3.80-5.40) m/uL Hgb (11.4-16.0) gm/dL Hct (34.0-46.0) % Plt Count (150-450) k/uL Neutrophils # (1.3-7.7) k/uL Lymphocytes # (1.0-4.8) k/uL ABG pO2 (83-108) mmHg ABG Total CO2 (19-24) mmol/L ABG O2 Saturation (94-97) % Sodium (137-145) mmol/L BUN (7-17) mg/dL Creatinine (0.52-1.04) mg/dL Glucose (74-99) mg/dL POC Glucose (mg/dL) 164 H 169 H (70-110) mg/dL Calcium (8.4-10.2) mg/dL Phosphorus 5.3 H (2.5-4.5) mg/dL AST (14-36) U/L Alkaline Phosphatase (38-126) U/L Total Protein (6.3-8.2) g/dL Albumin (3.5-5.0) g/dL 01/22/23 01/22/23 01/23/23 Range/Units 18:48 23:35 04:08 WBC 15.6 H (3.8-10.6) k/uL RBC 2.96 L (3.80-5.40) m/uL Hgb 9.1 L (11.4-16.0) gm/dL Hct 27.8 L (34.0-46.0) % Plt Count 141 L (150-450) k/uL Neutrophils # 13.6 H (1.3-7.7) k/uL Lymphocytes # (1.0-4.8) k/uL ABG pO2 (83-108) mmHg ABG Total CO2 (19-24) mmol/L ABG O2 Saturation (94-97) % Sodium 130 L (137-145) mmol/L BUN 39 H (7-17) mg/dL Creatinine 3.40 H (0.52-1.04) mg/dL Glucose 157 H (74-99) mg/dL POC Glucose (mg/dL) 175 H (70-110) mg/dL Calcium 7.0 L (8.4-10.2) mg/dL Phosphorus 5.5 H (2.5-4.5) mg/dL AST 138 H (14-36) U/L Alkaline Phosphatase 162 H (38-126) U/L Total Protein 4.4 L (6.3-8.2) g/dL Albumin 2.2 L (3.5-5.0) g/dL 01/23/23 01/23/23 01/23/23 Range/Units 04:08 05:20 06:10 WBC 12.8 H (3.8-10.6) k/uL RBC 2.87 L (3.80-5.40) m/uL Hgb 8.8 L (11.4-16.0) gm/dL Hct 26.6 L (34.0-46.0) % Plt Count 137 L (150-450) k/uL Neutrophils # 11.2 H (1.3-7.7) k/uL Lymphocytes # 0.8 L (1.0-4.8) k/uL ABG pO2 111 H (83-108) mmHg ABG Total CO2 26 H (19-24) mmol/L ABG O2 Saturation 99.1 H (94-97) % Sodium (137-145) mmol/L BUN (7-17) mg/dL Creatinine (0.52-1.04) mg/dL Glucose (74-99) mg/dL POC Glucose (mg/dL) 154 H (70-110) mg/dL Calcium (8.4-10.2) mg/dL Phosphorus (2.5-4.5) mg/dL AST (14-36) U/L Alkaline Phosphatase (38-126) U/L Total Protein (6.3-8.2) g/dL Albumin (3.5-5.0) g/dL Microbiology - Last 24 Hours (Table) 01/22/23 09:45 Gram Stain - Preliminary Diaz-Benítez Body Fluid Culture - Preliminary 01/19/23 21:10 Anaerobic Culture - Preliminary Peritoneal Fluid 01/19/23 21:10 Gram Stain - Final Other - Other Wound Culture - Final 01/20/23 03:52 Gram Stain - Final Sputum Sputum Culture - Final Assessment and Plan (1) Ischemic bowel disease Current Visit: Yes Status: Acute Code(s): K55.9 - VASCULAR DISORDER OF INTESTINE, UNSPECIFIED SNOMED Code(s): 52048860 (2) COPD (chronic obstructive pulmonary disease) Current Visit: No Status: Acute Code(s): J44.9 - CHRONIC OBSTRUCTIVE PULMONARY DISEASE, UNSPECIFIED SNOMED Code(s): 50301116 (3) Type 2 diabetes mellitus Current Visit: No Status: Acute Code(s): E11.9 - TYPE 2 DIABETES MELLITUS WITHOUT COMPLICATIONS SNOMED Code(s): 52395244 (4) Ischemic colitis Current Visit: Yes Status: Acute Code(s): K55.9 - VASCULAR DISORDER OF I NTESTINE, UNSPECIFIED SNOMED Code(s): 90284792 (5) History of below-knee amputation of right lower extremity Current Visit: No Status: Acute Code(s): Z89.511 - ACQUIRED ABSENCE OF RIGHT LEG BELOW KNEE SNOMED Code(s): 421450114233376 (6) Opioid dependence Current Visit: No Status: Acute Code(s): F11.20 - OPIOID DEPENDENCE, UNCOMPLICATED SNOMED Code(s): 46555688 Plan: Appreciate multiple consultants. Check labs in the a.m. Patient seen and evaluated by nurse practitioner, physician in agreement with plan
[2023-01-23] MEDS ORDERED: FUROSEMIDE 10 MG/ML 10 ML VIAL IV STA (10:11)
--- NOTE | 2023-01-23 10:11 | P.PN ---
Subjective Progress Note Date: 01/23/23 67-year-old female patient is being seen in follow-up on 01/22/2023. A complicated case of abdominal distention, stooling infection requiring surgical intervention along with multiple medical problems and comorbidities P she initially presented to us with abdominal pain and she has not had a bowel mov ement for more than a week. She had significant abdominal distention. She was taken to the operating room and the patient underwent laparotomy, lysis of adhesions, total colectomy, ileostomy and the patient is currently postop day #3. She has been intubated and kept on a mechanical ventilator since. For now, the patient is still on a mechanical ventilator. She is a propofol which is running at 35 mcg/kg/m and she is adequately sedated and symptoms mechanical ventilator. She is on assist-control mode of mechanical ventilation at the rate of 24 with a rate of 24, tidal volume of 400, FiO2 of 30% and a PEEP of 5. Chest x-ray shows cardiomegaly. Some limited infiltrates in the left lung base and the right lower lobe lateral segment. Orotracheal tube is in a good location. The patient also has a triple-lumen catheter in the left subclavian. NG tube is also in good location. For now, the output from the NG tube is minimal. Her IV fluids are running at a rate of 75 mL an hour and the fluid is in the form of a bicarb infusion. She is on no pressors at this point in time in the urine output is in order of 5200 mL an hour. In terms of her electrolytes, the patient's sodium level has been dropping and it's down to 129. BUN is at 40 with a creatinine of 3.47 and a potassium level is at 4.2. Her serum bicarb is improved. She was as low as 13 and she is currently up to 20. Nevertheless, she is developing an acute kidney injury. Her creatinine at time of admission was 1.8 from a normal baseline. She has developed that he worsening of renal function the creatinine is up to 3.47. CAT scan of the abdomen and the pelvis that was done on 01/19/2023 showed no evidence of any hydronephrosis he had she had pancolonic distention with cecum dilatation which was up to 9.4 cm in size. At the same time, her white cell count has dropped down to 17.9 from as high as 25. Hemoglobin is stable at 9.2 and a platelet count is at 159. In terms of cultures, sputum culture has been negative. Abdominal wound cultures were taken and that is also still pending for now and the patient is covered with IV Zosyn. She is afebrile. She is having episodes of low-grade fever. She is on IV Tylenol. She remains hemodynamically stable. The patient remains nothing by mouth for now. The patient has a YASMINE drain located in the left lower quadrant and the output is in order of 200 mL over the past 8 hours. The output is serosanguineous. Her lactic acid level dropped from 7.3 down to 1.8. Blood sugars under adequate control and the patient is taking NovoLog insulin sliding scale coverage. She takes Lantus 55 units twice a day at home. She is also on a combination of Seroquel and Topamax and Prozac at home. Today's evaluation of 01/23/2023, the patient remains intubated on a mechanical ventilator. This morning, the patient is on assist control mode at the rate of 24 with a tidal volume of 400 and FiO2 of 30% with a PEEP of 5. The patient is on propofol running at 30 mcg/kg/m and the patient is adequately sedated at this point in time. PH is at 7.4 with a pCO2 of 40 and pO2 111. The peak airway pressure is 16. Chest x-ray shows no acute abnormalities. No significant orotracheal secretions. She does have some facial and scleral edema which is very much concerning the nursing staff. The patient is afebrile. The patient is hemodynamically stable and she is on no pressors. She is producing adequate amount of urine output. Creatinine is stable compared to yesterday and the level is at 3.4 with a BUN of 39 and a sodium level is at 1:30. Her white cell count is down to 12.8. LFTs are essentially within normal limits. The patient remains on TPN for nutritional support. Some limited activity and stool making was seen in her ileostomy bag. Surgical one-sided dry clean and intact. No signs of any significant volume overload. The patient has been in a possible fluid balance over the past 4 days at least. The patient was taken off the bicarb infusion and the patient is currently on normal saline at rate of 75 mL an hour. She is postop day #4 following a total colectomy and ileostomy. Orogastric tube remains in place with limited output. No other significant events otherwise for now. She is in with intermittent stable. Cardiac rhythm is sinus. Objective - Vital Signs Vital signs: Vital Signs Temp 99.1 F 01/23/23 08:00 Pulse 99 01/23/23 08:17 Resp 24 01/23/23 08:00 BP 118/55 01/23/23 00:00 Pulse Ox 97 01/23/23 08:00 FiO2 30 01/23/23 08:19 Intake & Output 01/22/23 01/23/23 01/23/23 18:59 06:59 18:59 Intake Total 8285.841 9907.354 452.642 Output Total 1045 1290 315 Balance 447.664 119.354 137.642 Weight 96.5 kg 93.5 kg Intake: IV 622 1097 343 ACETAMINOPHEN IV (For NPO 100 100 100 ) 1,000 mg In Empty Bag 1 bag @ 400 mls/hr IVPB Q6H [facility] Rx#:[id number] Dextrose 5% in Water 1, 450 150 000 ml @ 75 mls/hr IV . [id number] [facility] with Sodium Bicarb (1 Meq/ml) 150 ml Rx#:[id number] Piperacillin-Tazobactam 3 100 .375 gm In Sodium Chloride 0.9% 100 ml @ 25 mls/hr IVPB Q8H [facility] Rx#: [id number] Sodium Chloride 0.9% 1, 675 225 000 ml @ 75 mls/hr IV . [id number] [facility] Rx#:[id number] pressure bag 72 72 18 Intake, IV Titration 870.664 312.354 109.642 Amount ACETAMINOPHEN IV (For NPO 100 ) 1,000 mg In Empty Bag 1 bag @ 400 mls/hr IVPB Q6H [facility] Rx#:[id number] Mvi, Adult No.4 with Vit 150 30 60 K 10 ml Trace (Conc-1Ml/ Dose) 1 ml Sodium Acetate 30 meq Potassium Chloride 20 meq Calcium Gluconate 2 gm Magnesium Sulfate gm 1 gm In Amino Acid 4.25%-D10w 1,000 ml @ 30 mls/hr IV .Q24H [facility] Rx#:[id number] Norepinephrine 4 mg In 1.533 Sodium Chloride 0.9% 250 ml @ 0.03 MCG/KG/MIN 9. 851 mls/hr IV .Q24H [facility] Rx#:[id number] Sodium Chloride 0.45% 1, 450 75 000 ml @ 75 mls/hr IV . [id number] [facility] with Sodium Bicarb (1 Meq/ml) 150 ml Rx#:[id number] propofoL 1,000 mg In 169.131 207.354 49.642 Empty Bag 1 bag @ 15 MCG/ KG/MIN 7.757 mls/hr IV . [id number] [facility] Rx#:[id number] Tube Feeding 0 Other 0 Output: Gastric Drainage 0 50 Drainage 285 210 30 Left Lower Abdomen 285 210 30 Medial Abdomen 0 0 Urine 760 1080 235 Other: Voiding Method Indwelling Catheter Indwelling Catheter Indwelling Catheter ABP, PAP, CO, CI - Last Documented Arterial Blood Pressure 129/50 - Exam No acute distress, sedated, with an orally placed endotracheal tube. The patient is sedated and the patient is calm and comfortable. The patient is intubated by a #8 orotracheal tube. She is currently on propofol. Head exam was generally normal. There was no scleral icterus or corneal arcus. Mucous membranes were moist. HEENT examination is grossly unremarkable. Neck supple. Full range of motion. No adenopathy thyromegaly or neck vein distention. Cardiovascular examination reveals regular rhythm rate. S1-S2 normal. No S3 or S4. No discernible murmur noted. Heart sounds are distant. Lungs reveal scattered bilateral rhonchi, which are moderate in severity. No wheezes or crackles. Breath sounds are equal bilaterally. Abdomen soft, with ileostomy noted. Diaz-Benítez drains are noted. In the YASMINE drain is in the left lower quadrant. Bowel sounds are hypoactive. No abdominal distention. No significant output through the ileostomy at this point in time. Extremities are intact. No cyanosis clubbing or edema. The patient has a right below the knee amputation. The patient also has several amputated toes in the left foot. She has diminished pulses in the left lower extremity. No significant edema. No cyanosis. No digital clubbing. The patient has an arterial line in her right radial artery. Skin is without rash or lesion. Neurologic examination , the patient is sedated. She is very easily arousable. - Labs CBC & Chem 7: 01/23/23 04:08 01/23/23 04:08 Labs: Abnormal Lab Results - Last 24 Hours (Table) 01/22/23 01/22/23 01/22/23 Range/Units 03:58 11:23 17:45 WBC (3.8-10.6) k/uL RBC (3.80-5.40) m/uL Hgb (11.4-16.0) gm/dL Hct (34.0-46.0) % Plt Count (150-450) k/uL Neutrophils # (1.3-7.7) k/uL Lymphocytes # (1.0-4.8) k/uL ABG pO2 (83-108) mmHg ABG Total CO2 (19-24) mmol/L ABG O2 Saturation (94-97) % Sodium (137-145) mmol/L BUN (7-17) mg/dL Creatinine (0.52-1.04) mg/dL Glucose (74-99) mg/dL POC Glucose (mg/dL) 164 H 169 H (70-110) mg/dL Calcium (8.4-10.2) mg/dL Phosphorus 5.3 H (2.5-4.5) mg/dL AST (14-36) U/L Alkaline Phosphatase (38-126) U/L Total Protein (6.3-8.2) g/dL Albumin (3.5-5.0) g/dL 01/22/23 01/22/23 01/23/23 Range/Units 18:48 23:35 04:08 WBC 15.6 H (3.8-10.6) k/uL RBC 2.96 L (3.80-5.40) m/uL Hgb 9.1 L (11.4-16.0) gm/dL Hct 27.8 L (34.0-46.0) % Plt Count 141 L (150-450) k/uL Neutrophils # 13.6 H (1.3-7.7) k/uL Lymphocytes # (1.0-4.8) k/uL ABG pO2 (83-108) mmHg ABG Total CO2 (19-24) mmol/L ABG O2 Saturation (94-97) % Sodium 130 L (137-145) mmol/L BUN 39 H (7-17) mg/dL Creatinine 3.40 H (0.52-1.04) mg/dL Glucose 157 H (74-99) mg/dL POC Glucose (mg/dL) 175 H (70-110) mg/dL Calcium 7.0 L (8.4-10.2) mg/dL Phosphorus 5.5 H (2.5-4.5) mg/dL AST 138 H (14-36) U/L Alkaline Phosphatase 162 H (38-126) U/L Total Protein 4.4 L (6.3-8.2) g/dL Albumin 2.2 L (3.5-5.0) g/dL 01/23/23 01/23/23 01/23/23 Range/Units 04:08 05:20 06:10 WBC 12.8 H (3.8-10.6) k/uL RBC 2.87 L (3.80-5.40) m/uL Hgb 8.8 L (11.4-16.0) gm/dL Hct 26.6 L (34.0-46.0) % Plt Count 137 L (150-450) k/uL Neutrophils # 11.2 H (1.3-7.7) k/uL Lymphocytes # 0.8 L (1.0-4.8) k/uL ABG pO2 111 H (83-108) mmHg ABG Total CO2 26 H (19-24) mmol/L ABG O2 Saturation 99.1 H (94-97) % Sodium (137-145) mmol/L BUN (7-17) mg/dL Creatinine (0.52-1.04) mg/dL Glucose (74-99) mg/dL POC Glucose (mg/dL) 154 H (70-110) mg/dL Calcium (8.4-10.2) mg/dL Phosphorus (2.5-4.5) mg/dL AST (14-36) U/L Alkaline Phosphatase (38-126) U/L Total Protein (6.3-8.2) g/dL Albumin (3.5-5.0) g/dL Microbiology - Last 24 Hours (Table) 01/22/23 09:45 Gram Stain - Preliminary Diaz-Benítez Body Fluid Culture - Preliminary 01/19/23 21:10 Anaerobic Culture - Preliminary Peritoneal Fluid 01/19/23 21:10 Gram Stain - Final Other - Other Wound Culture - Final 01/20/23 03:52 Gram Stain - Final Sputum Sputum Culture - Final Assessment and Plan Plan: Severe abdominal distention, abdominal pain, constipation, and severe martinez- colonic distention, status post exploratory laparotomy, lysis of adhesions, to noelle colectomy, ileostomy, abdominal washout, placement of Diaz-Benítez drains, and placement of a wound VAC, postop day #4 , currently nothing by mouth. The patient was given an ileostomy which is nonfunctional at this point in time and there is no significant output. YASMINE drain is in place. Hemodynamically stable on no pressors. S/P intubation and mechanical ventilation, beginning on January 19, for respiratory failure. Acute lactic acidemia, with anion gap metabolic acidosis, recovered Non-anion gap metabolic acidosis , recovered and the patient is currently off the bicarb infusion Acute kidney injury with progressive worsening of the renal function and a creatinine is up to 3.4 , stable compared to yesterday Acute leukocytosis, improving Obesity with a BMI of 38.9 Severe peripheral vascular disease with below-knee amputation on the right and several and predated toes on the left History of diabetes mellitus, maintain on Lantus insulin outpatient basis currently on NovoLog sliding scale coverage History of stress urinary incontinence. History of hypothyroidism. History of hyperlipidemia. History of COPD from ongoing tobacco use. History of depression. hyponatremia, being monitored currently on a bicarb infusion Plan: Continue ventilator support, no vent changes to be done for today Stop the sedation Check weaning parameters and if adequate, give the patient is going to his breathing trial with a pressure support of 5 and a PEEP of 5 Possible extubation today Stop bicarb infusion Monitor the renal function and avoid any nephrotoxic agents. The findings on the case Continue IV Zosyn Keep the patient nothing by mouth for now pending some functionality of the ileostomy Keep the NG tube in place Moderate output from the NG tube Continue TPN No pressors for now Slight scale insulin coverage Lovenox 30 mg subcu portably prophylaxis Condition is critical and we'll continue to follow. Evaluation was done in more than 30 minutes. Time with Patient: Greater than 30
[2023-01-23] MEDS: SODIUM CHLORIDE 0.9% 1,000 ML IV SCH (11:29)
[2023-01-23 11:45] LABS: ABG Base Excess -1.5 mmol/L; ABG HCO3 24 mmol/L (21-25); ABG Oxygen Saturation 98.1 % (94-97); ABG PCO2 40 mmHg (35-45); ABG PH 7.38 (7.35-7.45); ABG PO2 92 mmHg (83-108); ABG TCO2 25 mmol/L (19-24)
--- NOTE | 2023-01-23 11:47 | P.PN ---
Subjective Patient is seen for follow-up for acute kidney injury. Status post emergent explorative laparotomy and lysis of edema just with total abdominal colectomy and end ileostomy on 01/19/2023 Off of pressors Urine output at about 50-75 mL per hour Serum creatinine increased to 3.40 today. Sodium remains at 130 Patient remains intubated. FiO2 at 30% Objective - Vital Signs Vital signs: Vital Signs Temp 99.1 F 01/23/23 08:00 Pulse 101 H 01/23/23 11:29 Resp 24 01/23/23 11:00 BP 118/55 01/23/23 00:00 Pulse Ox 98 01/23/23 11:00 FiO2 30 01/23/23 11:04 Intake & Output 01/22/23 01/23/23 01/23/23 18:59 06:59 18:59 Intake Total 1263.006 7165.354 706.616 Output Total 1045 1290 690 Balance 447.664 119.354 16.616 Weight 96.5 kg 93.5 kg Intake: IV 622 1097 505 ACETAMINOPHEN IV (For NPO 100 100 100 ) 1,000 mg In Empty Bag 1 bag @ 400 mls/hr IVPB Q6H [facility] Rx#:[id number] Dextrose 5% in Water 1, 450 150 000 ml @ 75 mls/hr IV . [id number] [facility] with Sodium Bicarb (1 Meq/ml) 150 ml Rx#:[id number] Piperacillin-Tazobactam 3 100 .375 gm In Sodium Chloride 0.9% 100 ml @ 25 mls/hr IVPB Q8H [facility] Rx#: [id number] Sodium Chloride 0.9% 1, 675 375 000 ml @ 75 mls/hr IV . [id number] [facility] Rx#:[id number] pressure bag 72 72 30 Intake, IV Titration 870.664 312.354 201.616 Amount ACETAMINOPHEN IV (For NPO 100 ) 1,000 mg In Empty Bag 1 bag @ 400 mls/hr IVPB Q6H [facility] Rx#:[id number] Mvi, Adult No.4 with Vit 150 30 120 K 10 ml Trace (Conc-1Ml/ Dose) 1 ml Sodium Acetate 30 meq Potassium Chloride 20 meq Calcium Gluconate 2 gm Magnesium Sulfate gm 1 gm In Amino Acid 4.25%-D10w 1,000 ml @ 30 mls/hr IV .Q24H [facility] Rx#:[id number] Norepinephrine 4 mg In 1.533 Sodium Chloride 0.9% 250 ml @ 0.03 MCG/KG/MIN 9. 851 mls/hr IV .Q24H [facility] Rx#:[id number] Sodium Chloride 0.45% 1, 450 75 000 ml @ 75 mls/hr IV . [id number] [facility] with Sodium Bicarb (1 Meq/ml) 150 ml Rx#:[id number] propofoL 1,000 mg In 169.131 207.354 81.616 Empty Bag 1 bag @ 15 MCG/ KG/MIN 7.757 mls/hr IV . [id number] [facility] Rx#:[id number] Tube Feeding 0 Other 0 Output: Gastric Drainage 0 50 Drainage 285 210 30 Left Lower Abdomen 285 210 30 Medial Abdomen 0 0 Urine 760 1080 610 Other: Voiding Method Indwelling Catheter Indwelling Catheter Indwelling Catheter ABP, PAP, CO, CI - Last Documented Arterial Blood Pressure 150/58 - Exam Patient is sedated and on the vent Examination of the heart S1 and S2 Examination of the lungs bilateral breath sounds are heard Abdomen is soft it is currently dressed Drains are noted. Examination lower extremity shows right BKA. No significant edema noted [employer] ATTENDANT examination cannot be performed - Labs CBC & Chem 7: 01/23/23 04:08 01/23/23 04:08 Labs: Abnormal Lab Results - Last 24 Hours (Table) 01/22/23 01/22/23 01/22/23 Range/Units 17:45 18:48 23:35 WBC 15.6 H (3.8-10.6) k/uL RBC 2.96 L (3.80-5.40) m/uL Hgb 9.1 L (11.4-16.0) gm/dL Hct 27.8 L (34.0-46.0) % Plt Count 141 L (150-450) k/uL Neutrophils # 13.6 H (1.3-7.7) k/uL Lymphocytes # (1.0-4.8) k/uL ABG pO2 (83-108) mmHg ABG Total CO2 (19-24) mmol/L ABG O2 Saturation (94-97) % Sodium (137-145) mmol/L BUN (7-17) mg/dL Creatinine (0.52-1.04) mg/dL Glucose (74-99) mg/dL POC Glucose (mg/dL) 169 H 175 H (70-110) mg/dL Calcium (8.4-10.2) mg/dL Phosphorus (2.5-4.5) mg/dL AST (14-36) U/L Alkaline Phosphatase (38-126) U/L Total Protein (6.3-8.2) g/dL Albumin (3.5-5.0) g/dL 01/23/23 01/23/23 01/23/23 Range/Units 04:08 04:08 05:20 WBC 12.8 H (3.8-10.6) k/uL RBC 2.87 L (3.80-5.40) m/uL Hgb 8.8 L (11.4-16.0) gm/dL Hct 26.6 L (34.0-46.0) % Plt Count 137 L (150-450) k/uL Neutrophils # 11.2 H (1.3-7.7) k/uL Lymphocytes # 0.8 L (1.0-4.8) k/uL ABG pO2 (83-108) mmHg ABG Total CO2 (19-24) mmol/L ABG O2 Saturation (94-97) % Sodium 130 L (137-145) mmol/L BUN 39 H (7-17) mg/dL Creatinine 3.40 H (0.52-1.04) mg/dL Glucose 157 H (74-99) mg/dL POC Glucose (mg/dL) 154 H (70-110) mg/dL Calcium 7.0 L (8.4-10.2) mg/dL Phosphorus 5.5 H (2.5-4.5) mg/dL AST 138 H (14-36) U/L Alkaline Phosphatase 162 H (38-126) U/L Total Protein 4.4 L (6.3-8.2) g/dL Albumin 2.2 L (3.5-5.0) g/dL 01/23/23 Range/Units 06:10 WBC (3.8-10.6) k/uL RBC (3.80-5.40) m/uL Hgb (11.4-16.0) gm/dL Hct (34.0-46.0) % Plt Count (150-450) k/uL Neutrophils # (1.3-7.7) k/uL Lymphocytes # (1.0-4.8) k/uL ABG pO2 111 H (83-108) mmHg ABG Total CO2 26 H (19-24) mmol/L ABG O2 Saturation 99.1 H (94-97) % Sodium (137-145) mmol/L BUN (7-17) mg/dL Creatinine (0.52-1.04) mg/dL Glucose (74-99) mg/dL POC Glucose (mg/dL) (70-110) mg/dL Calcium (8.4-10.2) mg/dL Phosphorus (2.5-4.5) mg/dL AST (14-36) U/L Alkaline Phosphatase (38-126) U/L Total Protein (6.3-8.2) g/dL Albumin (3.5-5.0) g/dL Microbiology - Last 24 Hours (Table) 01/22/23 09:45 Gram Stain - Preliminary Diaz-Benítez Body Fluid Culture - Preliminary 01/19/23 21:10 Anaerobic Culture - Preliminary Peritoneal Fluid 01/19/23 21:10 Gram Stain - Final Other - Other Wound Culture - Final 01/20/23 03:52 Gram Stain - Final Sputum Sputum Culture - Final Assessment and Plan Assessment: 1. Acute kidney injury, ischemic ATN currently nonoliguric. No renal abnormalities mentioned on CT. UA shows WBCs 33, 2+ protein no blood. Urine output has improved and serum creatinine expected to continue to improve. 2. Septic shock associated with ischemic bowel 3. Lactic acidosis and anion gap metabolic acidosis associated with ischemic bowel septic shock and acute kidney injury 4. Hyponatremia associated with hypotonic fluid with acute kidney injury 5. Acute hypoxic respiratory failure currently on the vent Plan: D/c IVF Repeat labs in a.m.
[2023-01-23 12:06] LABS: Glucose,Whole Blood 176 mg/dL (70-110)
--- NOTE | 2023-01-23 12:35 | P.PN ---
Subjective Progress Note Date: 01/23/23 Principal diagnosis: Ischemic colitis patient is a 67-year-old female with a past medical history significant for type 2 diabetes mellitus COPD morbid obesity did have a history of right below the knee amputation and left big toe amputation history of smoking presenting to the hospital with a 2-week history of abdominal pain , patient has been diagnosed with ischemic colitis in this patient with status post subtotal colectomy and ileostomy. On today's evaluation that is 01/23/2023, the patient is afebrile this morning, patient is of pressor support, FiO2 is is currently stable and 30% and plan is for possible weaning and extubation this morning per the nursing staff, no significant purulent secretions through the ET and small output in ileostomy has been reported by the nursing staff Objective - Vital Signs Vital signs: Vital Signs Temp 99.1 F 01/23/23 08:00 Pulse 106 H 01/23/23 11:00 Resp 24 01/23/23 11:00 BP 118/55 01/23/23 00:00 Pulse Ox 98 01/23/23 11:00 FiO2 30 01/23/23 11:04 Intake & Output 01/22/23 01/23/23 01/23/23 18:59 06:59 18:59 Intake Total 3473.094 1277.354 706.616 Output Total 1045 1290 690 Balance 447.664 119.354 16.616 Weight 96.5 kg 93.5 kg Intake: IV 622 1097 505 ACETAMINOPHEN IV (For NPO 100 100 100 ) 1,000 mg In Empty Bag 1 bag @ 400 mls/hr IVPB Q6H [facility] Rx#:[id number] Dextrose 5% in Water 1, 450 150 000 ml @ 75 mls/hr IV . [id number] [facility] with Sodium Bicarb (1 Meq/ml) 150 ml Rx#:[id number] Piperacillin-Tazobactam 3 100 .375 gm In Sodium Chloride 0.9% 100 ml @ 25 mls/hr IVPB Q8H [facility] Rx#: [id number] Sodium Chloride 0.9% 1, 675 375 000 ml @ 75 mls/hr IV . [id number] [facility] Rx#:[id number] pressure bag 72 72 30 Intake, IV Titration 870.664 312.354 201.616 Amount ACETAMINOPHEN IV (For NPO 100 ) 1,000 mg In Empty Bag 1 bag @ 400 mls/hr IVPB Q6H [facility] Rx#:[id number] Mvi, Adult No.4 with Vit 150 30 120 K 10 ml Trace (Conc-1Ml/ Dose) 1 ml Sodium Acetate 30 meq Potassium Chloride 20 meq Calcium Gluconate 2 gm Magnesium Sulfate gm 1 gm In Amino Acid 4.25%-D10w 1,000 ml @ 30 mls/hr IV .Q24H [facility] Rx#:[id number] Norepinephrine 4 mg In 1.533 Sodium Chloride 0.9% 250 ml @ 0.03 MCG/KG/MIN 9. 851 mls/hr IV .Q24H [facility] Rx#:[id number] Sodium Chloride 0.45% 1, 450 75 000 ml @ 75 mls/hr IV . [id number] [facility] with Sodium Bicarb (1 Meq/ml) 150 ml Rx#:[id number] propofoL 1,000 mg In 169.131 207.354 81.616 Empty Bag 1 bag @ 15 MCG/ KG/MIN 7.757 mls/hr IV . [id number] [facility] Rx#:[id number] Tube Feeding 0 Other 0 Output: Gastric Drainage 0 50 Drainage 285 210 30 Left Lower Abdomen 285 210 30 Medial Abdomen 0 0 Urine 760 1080 610 Other: Voiding Method Indwelling Catheter Indwelling Catheter Indwelling Catheter ABP, PAP, CO, CI - Last Documented Arterial Blood Pressure 150/58 - Exam GENERAL DESCRIPTION: An elderly female intubated on the vent RESPIRATORY SYSTEM: Unlabored breathing , decreased breath sounds at bases HEART: S1 S2 regular rate and rhythm , ABDOMEN: Soft , midline incision is intact EXTREMITIES: Right BK stump incision is healed - Labs CBC & Chem 7: 01/23/23 04:08 01/23/23 04:08 Labs: Abnormal Lab Results - Last 24 Hours (Table) 01/22/23 01/22/23 01/22/23 Range/Units 03:58 11:23 17:45 WBC (3.8-10.6) k/uL RBC (3.80-5.40) m/uL Hgb (11.4-16.0) gm/dL Hct (34.0-46.0) % Plt Count (150-450) k/uL Neutrophils # (1.3-7.7) k/uL Lymphocytes # (1.0-4.8) k/uL ABG pO2 (83-108) mmHg ABG Total CO2 (19-24) mmol/L ABG O2 Saturation (94-97) % Sodium (137-145) mmol/L BUN (7-17) mg/dL Creatinine (0.52-1.04) mg/dL Glucose (74-99) mg/dL POC Glucose (mg/dL) 164 H 169 H (70-110) mg/dL Calcium (8.4-10.2) mg/dL Phosphorus 5.3 H (2.5-4.5) mg/dL AST (14-36) U/L Alkaline Phosphatase (38-126) U/L Total Protein (6.3-8.2) g/dL Albumin (3.5-5.0) g/dL 01/22/23 01/22/23 01/23/23 Range/Units 18:48 23:35 04:08 WBC 15.6 H (3.8-10.6) k/uL RBC 2.96 L (3.80-5.40) m/uL Hgb 9.1 L (11.4-16.0) gm/dL Hct 27.8 L (34.0-46.0) % Plt Count 141 L (150-450) k/uL Neutrophils # 13.6 H (1.3-7.7) k/uL Lymphocytes # (1.0-4.8) k/uL ABG pO2 (83-108) mmHg ABG Total CO2 (19-24) mmol/L ABG O2 Saturation (94-97) % Sodium 130 L (137-145) mmol/L BUN 39 H (7-17) mg/dL Creatinine 3.40 H (0.52-1.04) mg/dL Glucose 157 H (74-99) mg/dL POC Glucose (mg/dL) 175 H (70-110) mg/dL Calcium 7.0 L (8.4-10.2) mg/dL Phosphorus 5.5 H (2.5-4.5) mg/dL AST 138 H (14-36) U/L Alkaline Phosphatase 162 H (38-126) U/L Total Protein 4.4 L (6.3-8.2) g/dL Albumin 2.2 L (3.5-5.0) g/dL 01/23/23 01/23/23 01/23/23 Range/Units 04:08 05:20 06:10 WBC 12.8 H (3.8-10.6) k/uL RBC 2.87 L (3.80-5.40) m/uL Hgb 8.8 L (11.4-16.0) gm/dL Hct 26.6 L (34.0-46.0) % Plt Count 137 L (150-450) k/uL Neutrophils # 11.2 H (1.3-7.7) k/uL Lymphocytes # 0.8 L (1.0-4.8) k/uL ABG pO2 111 H (83-108) mmHg ABG Total CO2 26 H (19-24) mmol/L ABG O2 Saturation 99.1 H (94-97) % Sodium (137-145) mmol/L BUN (7-17) mg/dL Creatinine (0.52-1.04) mg/dL Glucose (74-99) mg/dL POC Glucose (mg/dL) 154 H (70-110) mg/dL Calcium (8.4-10.2) mg/dL Phosphorus (2.5-4.5) mg/dL AST (14-36) U/L Alkaline Phosphatase (38-126) U/L Total Protein (6.3-8.2) g/dL Albumin (3.5-5.0) g/dL Microbiology - Last 24 Hours (Table) 01/22/23 09:45 Gram Stain - Preliminary Diaz-Benítez Body Fluid Culture - Preliminary 01/19/23 21:10 Anaerobic Culture - Preliminary Peritoneal Fluid 01/19/23 21:10 Gram Stain - Final Other - Other Wound Culture - Final 01/20/23 03:52 Gram Stain - Final Sputum Sputum Culture - Final Assessment and Plan (1) Ischemic colitis Current Visit: Yes Status: Acute Code(s): K55.9 - VASCULAR DISORDER OF INTESTINE, UNSPECIFIED SNOMED Code(s): 28827259 (2) Sepsis Current Visit: No Status: Acute Code(s): A41.9 - SEPSIS, UNSPECIFIED ORGANISM SNOMED Code(s): 66592550 Plan: 1patient presented to hospital abdominal pain has been diagnosed with ischemic colitis in this patient infusion of septic shock with low-grade fever tachycardia elevated white count elevated lactic acid source being ischemic large bowel status post subtotal colectomy and end ileostomy we will need to cover for the enteric gram-negative both aerobes and anaerobes abdominal culture, which are currently pending 2-patient white count is trending down, patient to continue Zosyn 3.375 g every 8 hours and continue with supportive care Time with Patient: Less than 30
[2023-01-23] MEDS: 1: MVI, ADULT NO.4 WITH VIT K 10 ML, TRACE (CONC-1ML/DOSE) 1 ML, SODIUM ACETATE 30 MEQ, IV SCH ×14 (14:00→16:51)
--- NOTE | 2023-01-23 14:58 | P.PN ---
Subjective Progress Note Date: 01/23/23 CHIEF COMPLAINT: Acute abdomen with ischemic bowel HISTORY OF PRESENT ILLNESS: Postop day #4 status post exploratory laparotomy with total abdominal colectomy and end ileostomy, lysis of adhesions. Patient currently ICU. She was extubated. And on 4 L of oxygen. Afebrile. White count trending down from 15.6-12.8 Hgb is 8.8 platelets 137 sodium 1:30 potassium 4.0 creatinine 3.40 fluid culture from YASMINE drain pending PHYSICAL EXAM: VITAL SIGNS: Reviewed GENERAL: Well-developed in no acute distress. HEENT: No sclera icterus. Extraocular movements grossly intact. Moist buccal mucosa. Head is atraumatic, normocephalic. Hears conversational speech. No nasal drainage. NECK: Supple without lymphadenopathy. CHEST: Non-labored respirations and equal bilateral excursions. CARDIOVASCULAR: Palpable 2+ radial pulses. ABDOMEN: Soft. Nondistended. Prevana wound vac in place. YASMINE drain with ser osanguineous output. Ileostomy MUSCULOSKELETAL: No clubbing or cyanosis. NEUROLOGIC: Patient intubated and sedated PSYCH: Appropriate affect. Alert and oriented to person, place and time. SKIN: Well perfused. Good skin turgor. ASSESSMENT: 1. Acute abdomen with ischemic bowel 2. Hypertensive heart disease with congestive heart failure 3. Morbid obesity due to excess calories, BMI over 34.8 4. Acute renal failure due to dehydration 5. History of lower extremity amputee 6. Chronic obstructive pulmonary disease 7. Diabetes type 2, insulin-dependent with diabetic nephropathy 8. Gastroesophageal reflux disease 9. Hypotension due to hypovolemia 10. Lactic acidosis 11. Septic shock due to bowel 12. Status post total abdominal colectomy PLAN: -Continue ICU management -Continue supportive care -Continue antibiotics -Follow up on fluid from YASMINE training culture -Continue TPN for nutrition support -GI prophylaxis Protonix and DVT prophylaxis Lovenox Physician Department Assistant note has been reviewed by physician. Signing provider agrees with the documented findings, assessment, and plan of care. Objective - Vital Signs Vital signs: Vital Signs Temp 98.6 F 01/23/23 12:00 Pulse 113 H 01/23/23 12:00 Resp 22 01/23/23 12:00 BP 118/55 01/23/23 00:00 Pulse Ox 97 01/23/23 12:00 FiO2 30 01/23/23 11:04 Intake & Output 01/22/23 01/23/23 01/23/23 18:59 06:59 18:59 Intake Total 2054.960 8871.354 817.616 Output Total 1045 1290 1065 Balance 447.664 119.354 -247.384 Weight 96.5 kg 93.5 kg Intake: IV 622 1097 586 ACETAMINOPHEN IV (For NPO 100 100 100 ) 1,000 mg In Empty Bag 1 bag @ 400 mls/hr IVPB Q6H [facility] Rx#:[id number] Dextrose 5% in Water 1, 450 150 000 ml @ 75 mls/hr IV . [id number] [facility] with Sodium Bicarb (1 Meq/ml) 150 ml Rx#:[id number] Piperacillin-Tazobactam 3 100 .375 gm In Sodium Chloride 0.9% 100 ml @ 25 mls/hr IVPB Q8H [facility] Rx#: [id number] Sodium Chloride 0.9% 1, 675 450 000 ml @ 75 mls/hr IV . [id number] [facility] Rx#:[id number] pressure bag 72 72 36 Intake, IV Titration 870.664 312.354 231.616 Amount ACETAMINOPHEN IV (For NPO 100 ) 1,000 mg In Empty Bag 1 bag @ 400 mls/hr IVPB Q6H [facility] Rx#:[id number] Mvi, Adult No.4 with Vit 150 30 150 K 10 ml Trace (Conc-1Ml/ Dose) 1 ml Sodium Acetate 30 meq Potassium Chloride 20 meq Calcium Gluconate 2 gm Magnesium Sulfate gm 1 gm In Amino Acid 4.25%-D10w 1,000 ml @ 30 mls/hr IV .Q24H [facility] Rx#:[id number] Norepinephrine 4 mg In 1.533 Sodium Chloride 0.9% 250 ml @ 0.03 MCG/KG/MIN 9. 851 mls/hr IV .Q24H [facility] Rx#:[id number] Sodium Chloride 0.45% 1, 450 75 000 ml @ 75 mls/hr IV . [id number] [facility] with Sodium Bicarb (1 Meq/ml) 150 ml Rx#:[id number] propofoL 1,000 mg In 169.131 207.354 81.616 Empty Bag 1 bag @ 15 MCG/ KG/MIN 7.757 mls/hr IV . [id number] [facility] Rx#:[id number] Tube Feeding 0 Other 0 Output: Gastric Drainage 0 50 Drainage 285 210 130 Left Lower Abdomen 285 210 130 Medial Abdomen 0 0 Urine 760 1080 885 Other: Voiding Method Indwelling Catheter Indwelling Catheter Indwelling Catheter ABP, PAP, CO, CI - Last Documented Arterial Blood Pressure 150/57 - Labs CBC & Chem 7: 01/23/23 04:08 01/23/23 04:08 Labs: Abnormal Lab Results - Last 24 Hours (Table) 01/22/23 01/22/23 01/22/23 Range/Units 17:45 18:48 23:35 WBC 15.6 H (3.8-10.6) k/uL RBC 2.96 L (3.80-5.40) m/uL Hgb 9.1 L (11.4-16.0) gm/dL Hct 27.8 L (34.0-46.0) % Plt Count 141 L (150-450) k/uL Neutrophils # 13.6 H (1.3-7.7) k/uL Lymphocytes # (1.0-4.8) k/uL ABG pO2 (83-108) mmHg ABG Total CO2 (19-24) mmol/L ABG O2 Saturation (94-97) % Sodium (137-145) mmol/L BUN (7-17) mg/dL Creatinine (0.52-1.04) mg/dL Glucose (74-99) mg/dL POC Glucose (mg/dL) 169 H 175 H (70-110) mg/dL Calcium (8.4-10.2) mg/dL Phosphorus (2.5-4.5) mg/dL AST (14-36) U/L Alkaline Phosphatase (38-126) U/L Total Protein (6.3-8.2) g/dL Albumin (3.5-5.0) g/dL Triglycerides (0.00-149.00) mg/dL 01/23/23 01/23/23 01/23/23 Range/Units 04:08 04:08 05:20 WBC 12.8 H (3.8-10.6) k/uL RBC 2.87 L (3.80-5.40) m/uL Hgb 8.8 L (11.4-16.0) gm/dL Hct 26.6 L (34.0-46.0) % Plt Count 137 L (150-450) k/uL Neutrophils # 11.2 H (1.3-7.7) k/uL Lymphocytes # 0.8 L (1.0-4.8) k/uL ABG pO2 (83-108) mmHg ABG Total CO2 (19-24) mmol/L ABG O2 Saturation (94-97) % Sodium 130 L (137-145) mmol/L BUN 39 H (7-17) mg/dL Creatinine 3.40 H (0.52-1.04) mg/dL Glucose 157 H (74-99) mg/dL POC Glucose (mg/dL) 154 H (70-110) mg/dL Calcium 7.0 L (8.4-10.2) mg/dL Phosphorus 5.5 H (2.5-4.5) mg/dL AST 138 H (14-36) U/L Alkaline Phosphatase 162 H (38-126) U/L Total Protein 4.4 L (6.3-8.2) g/dL Albumin 2.2 L (3.5-5.0) g/dL Triglycerides 502.00 H (0.00-149.00) mg/dL 01/23/23 01/23/23 01/23/23 Range/Units 06:10 11:41 12:04 WBC (3.8-10.6) k/uL RBC (3.80-5.40) m/uL Hgb (11.4-16.0) gm/dL Hct (34.0-46.0) % Plt Count (150-450) k/uL Neutrophils # (1.3-7.7) k/uL Lymphocytes # (1.0-4.8) k/uL ABG pO2 111 H (83-108) mmHg ABG Total CO2 26 H 25 H (19-24) mmol/L ABG O2 Saturation 99.1 H 98.1 H (94-97) % Sodium (137-145) mmol/L BUN (7-17) mg/dL Creatinine (0.52-1.04) mg/dL Glucose (74-99) mg/dL POC Glucose (mg/dL) 176 H (70-110) mg/dL Calcium (8.4-10.2) mg/dL Phosphorus (2.5-4.5) mg/dL AST (14-36) U/L Alkaline Phosphatase (38-126) U/L Total Protein (6.3-8.2) g/dL Albumin (3.5-5.0) g/dL Triglycerides (0.00-149.00) mg/dL Microbiology - Last 24 Hours (Table) 01/22/23 09:45 Gram Stain - Preliminary Diaz-Benítez Body Fluid Culture - Preliminary 01/19/23 21:10 Anaerobic Culture - Preliminary Peritoneal Fluid 01/19/23 21:10 Gram Stain - Final Other - Other Wound Culture - Final 01/20/23 03:52 Gram Stain - Final Sputum Sputum Culture - Final
[2023-01-23 17:25] LABS: Glucose,Whole Blood 196 mg/dL (70-110)
[2023-01-23 23:21] LABS: Glucose,Whole Blood 236 mg/dL (70-110)
[2023-01-24] MEDS: PIPERACILLIN-TAZOBACTAM 3.375 GM in SODIUM CHLORIDE 0.9% 100 ML IVPB SCH ×2 (00:11→11:45)
[2023-01-24] MEDS: INSULIN ASPART (NovoLOG) 100 UNIT/ML VIAL SQ SCH ×4 (00:11→18:22)
[2023-01-24] MEDS: HYDROmorphone 1 MG/ML 1 ML SYRINGE IVP PRN ×6 (00:12→21:08)
[2023-01-24] MEDS: ACETAMINOPHEN IV (For NPO) 1,000 MG in EMPTY BAG 1 BAG IVPB SCH ×4 (02:36→20:34)
[2023-01-24 04:48] LABS: HCT 28.3 % (34.0-46.0); MCH 29.8 pg (25.0-35.0); MCHC 31.6 g/dL (31.0-37.0); MCV 94.3 fL (80.0-100.0); Mean Platelet Volume 7.6; Platelet Count 163 k/uL (150-450); RDW 14.3 % (11.5-15.5); WBC 9.3 k/uL (3.8-10.6)
[2023-01-24 05:15] LABS: Albumin 2.5 g/dL (3.5-5.0); Calcium 7.5 mg/dL (8.4-10.2); Magnesium 1.9 mg/dL (1.6-2.3); Phosphorus 4.7 mg/dL (2.5-4.5); Total Bilirubin 0.8 mg/dL (0.2-1.3)
[2023-01-24] MEDS ORDERED: MAGNESIUM SULFATE-D5W PMX 1 GM in DEXTROSE/WATER 1 100ML.BAG IVPB ONE (05:30)
[2023-01-24 05:48] LABS: Glucose,Whole Blood 179 mg/dL (70-110)
[2023-01-24] MEDS: 1: MVI, ADULT NO.4 WITH VIT K 10 ML, TRACE (CONC-1ML/DOSE) 1 ML, SODIUM ACETATE 30 MEQ, IV SCH ×21 (07:25→23:12)
--- NOTE | 2023-01-24 08:21 | XR ---
EXAMINATION TYPE: XR chest 1V portable DATE OF EXAM: 01/24/2023 COMPARISON: NONE HISTORY: Tube placement TECHNIQUE: Single frontal view of the chest is obtained. FINDINGS: Bilateral areas of consolidation are seen greater on the left with small effusions. ET tub e has been removed, NG tube, central line stable. No pneumothorax. Heart remains enlarged. Chronic de formity of the shoulder. IMPRESSION: 1. Persistent airspace disease and pleural effusion, correlate for diffuse pneumonia or CHF
[2023-01-24] MEDS: IPRATROPIUM-ALBUTEROL 3 ML NEB INHALATION SCH ×4 (08:29→20:37)
--- NOTE | 2023-01-24 08:35 | P.PN ---
Subjective Principal diagnosis: Ischemic colitis Patient is a 67-year-old white female with known history of COPD and tobacco use who is essentially admitted for ischemic bowel. The patient is now intubated and under appropriate consultants control. The patient is now extubated. Objective - Vital Signs Vital signs: Vital Signs Temp 98.7 F 01/24/23 04:00 Pulse 93 01/24/23 08:30 Resp 16 01/24/23 07:00 BP 155/66 01/24/23 05:00 Pulse Ox 94 L 01/24/23 07:00 FiO2 30 01/23/23 11:04 Intake & Output 01/23/23 01/24/23 01/24/23 18:59 06:59 18:59 Intake Total 1577.616 556 Output Total 9860 2845 Balance -962.384 -2289 Weight 93.5 kg 91 kg Intake: IV 1196 416 ACETAMINOPHEN IV (For NPO 200 200 ) 1,000 mg In Empty Bag 1 bag @ 400 mls/hr IVPB Q6H [facility] Rx#:[id number] Mvi, Adult No.4 with Vit 30 0 K 10 ml Trace (Conc-1Ml/ Dose) 1 ml Sodium Acetate 30 meq Potassium Chloride 20 meq Calcium Gluconate 2 gm Magnesium Sulfate gm 1 gm In Amino Acid 4.25%-D10w 1,000 ml @ 30 mls/hr IV .Q24H [facility] Rx#:[id number] Piperacillin-Tazobactam 3 100 .375 gm In Sodium Chloride 0.9% 100 ml @ 25 mls/hr IVPB Q8H [facility] Rx#: [id number] Sodium Chloride 0.9% 1, 900 80 000 ml @ 75 mls/hr IV . [id number] [facility] Rx#:[id number] pressure bag 66 36 Intake, IV Titration 381.616 140 Amount Mvi, Adult No.4 with Vit 300 K 10 ml Trace (Conc-1Ml/ Dose) 1 ml Sodium Acetate 30 meq Potassium Chloride 20 meq Calcium Gluconate 2 gm Magnesium Sulfate gm 1 gm In Amino Acid 4.25%-D10w 1,000 ml @ 30 mls/hr IV .Q24H [facility] Rx#:[id number] Sodium Acetate 30 meq 140 Potassium Chloride 20 meq Calcium Gluconate 1 gm Magnesium Sulfate gm 1 gm In Amino Acid 4.25%-D10w 1,000 ml @ 70 mls/hr IV .[facility] Rx#: [id number] propofoL 1,000 mg In 81.616 Empty Bag 1 bag @ 15 MCG/ KG/MIN 7.757 mls/hr IV . [id number] [facility] Rx#:[id number] Output: Gastric Drainage 50 Drainage 130 420 Left Lower Abdomen 130 420 Medial Abdomen 0 Urine 2360 2425 Other: Voiding Method Indwelling Catheter Indwelling Catheter ABP, PAP, CO, CI - Last Documented Arterial Blood Pressure 160/52 - Constitutional General appearance: Present: no acute distress, obese - EENT Eyes: Absent: abnormal pupil - Neck Neck: Absent: lymphadenopathy - Respiratory Respiratory: bilateral: diminished - Cardiovascular Rhythm: regular Heart sounds: normal: S1, S2 Abnormal Heart Sounds: Absent: S3 Gallop - Gastrointestinal General gastrointestinal: Present: decreased bowel sounds - Psychiatric Psychiatric: Absent: A&O x's 3 - Labs CBC & Chem 7: 01/24/23 04:30 01/24/23 04:30 Labs: Abnormal Lab Results - Last 24 Hours (Table) 01/23/23 01/23/23 01/23/23 Range/Units 04:08 11:41 12:04 RBC (3.80-5.40) m/uL Hgb (11.4-16.0) gm/dL Hct (34.0-46.0) % ABG Total CO2 25 H (19-24) mmol/L ABG O2 Saturation 98.1 H (94-97) % Sodium (137-145) mmol/L BUN (7-17) mg/dL Creatinine (0.52-1.04) mg/dL Glucose (74-99) mg/dL POC Glucose (mg/dL) 176 H (70-110) mg/dL Calcium (8.4-10.2) mg/dL Phosphorus (2.5-4.5) mg/dL AST (14-36) U/L Alkaline Phosphatase (38-126) U/L Total Protein (6.3-8.2) g/dL Albumin (3.5-5.0) g/dL Triglycerides 502.00 H (0.00-149.00) mg/dL 01/23/23 01/23/23 01/24/23 Range/Units 17:23 23:20 04:30 RBC (3.80-5.40) m/uL Hgb (11.4-16.0) gm/dL Hct (34.0-46.0) % ABG Total CO2 (19-24) mmol/L ABG O2 Saturation (94-97) % Sodium 134 L (137-145) mmol/L BUN 45 H (7-17) mg/dL Creatinine 2.77 H (0.52-1.04) mg/dL Glucose 156 H (74-99) mg/dL POC Glucose (mg/dL) 196 H 236 H (70-110) mg/dL Calcium 7.5 L (8.4-10.2) mg/dL Phosphorus 4.7 H (2.5-4.5) mg/dL AST 104 H (14-36) U/L Alkaline Phosphatase 144 H (38-126) U/L Total Protein 5.0 L (6.3-8.2) g/dL Albumin 2.5 L (3.5-5.0) g/dL Triglycerides (0.00-149.00) mg/dL 01/24/23 01/24/23 Range/Units 04:30 05:46 RBC 3.00 L (3.80-5.40) m/uL Hgb 9.0 L (11.4-16.0) gm/dL Hct 28.3 L (34.0-46.0) % ABG Total CO2 (19-24) mmol/L ABG O2 Saturation (94-97) % Sodium (137-145) mmol/L BUN (7-17) mg/dL Creatinine (0.52-1.04) mg/dL Glucose (74-99) mg/dL POC Glucose (mg/dL) 179 H (70-110) mg/dL Calcium (8.4-10.2) mg/dL Phosphorus (2.5-4.5) mg/dL AST (14-36) U/L Alkaline Phosphatase (38-126) U/L Total Protein (6.3-8.2) g/dL Albumin (3.5-5.0) g/dL Triglycerides (0.00-149.00) mg/dL Microbiology - Last 24 Hours (Table) 01/22/23 09:45 Gram Stain - Preliminary [facility] Body Fluid Culture - Preliminary Assessment and Plan (1) Ischemic bowel disease Current Visit: Yes Status: Acute Code(s): K55.9 - VASCULAR DISORDER OF INTESTINE, UNSPECIFIED SNOMED Code(s): 25094435 (2) Ischemic colitis Current Visit: Yes Status: Acute Code(s): K55.9 - VASCULAR DISORDER OF INT ESTINE, UNSPECIFIED SNOMED Code(s): 71470137 (3) COPD (chronic obstructive pulmonary disease) Current Visit: No Status: Acute Code(s): J44.9 - CHRONIC OBSTRUCTIVE PULMONARY DISEASE, UNSPECIFIED SNOMED Code(s): 52815621 (4) History of below-knee amputation of right lower extremity Current Visit: No Status: Acute Code(s): Z89.511 - ACQUIRED ABSENCE OF RIGHT LEG BELOW KNEE SNOMED Code(s): 874256774459794 (5) Opioid dependence Current Visit: No Status: Acute Code(s): F11.20 - OPIOID DEPENDENCE, UNCOMPLICATED SNOMED Code(s): 13756719 (6) Type 2 diabetes mellitus Current Visit: No Status: Acute Code(s): E11.9 - TYPE 2 DIABETES MELLITUS WITHOUT COMPLICATIONS SNOMED Code(s): 25463289 Plan: Continue to follow during his ICU management. The patient is now extubated Prognosis is guarded. Check CBC and CMP in a.m. Appreciate multiple consultants input Anticipate slow recovery
[2023-01-24] MEDS: PANTOPRAZOLE 40 MG/10 ML VIAL IV SCH (09:02)
[2023-01-24] MEDS: ENOXAPARIN 30 MG/0.3 ML SYRINGE SQ SCH (09:02)
[2023-01-24] MEDS: CHLORHEXIDINE GLUCONATE 15 ML CUP MUCOUS MEM SCH (09:03)
--- NOTE | 2023-01-24 09:48 | P.PN ---
Subjective Progress Note Date: 01/24/23 67-year-old female patient is being seen in follow-up on 01/22/2023. A complicated case of abdominal distention, stooling infection requiring surgical intervention along with multiple medical problems and comorbidities P she initially presented to us with abdominal pain and she has not had a bowel mov ement for more than a week. She had significant abdominal distention. She was taken to the operating room and the patient underwent laparotomy, lysis of adhesions, total colectomy, ileostomy and the patient is currently postop day #3. She has been intubated and kept on a mechanical ventilator since. For now, the patient is still on a mechanical ventilator. She is a propofol which is running at 35 mcg/kg/m and she is adequately sedated and symptoms mechanical ventilator. She is on assist-control mode of mechanical ventilation at the rate of 24 with a rate of 24, tidal volume of 400, FiO2 of 30% and a PEEP of 5. Chest x-ray shows cardiomegaly. Some limited infiltrates in the left lung base and the right lower lobe lateral segment. Orotracheal tube is in a good location. The patient also has a triple-lumen catheter in the left subclavian. NG tube is also in good location. For now, the output from the NG tube is minimal. Her IV fluids are running at a rate of 75 mL an hour and the fluid is in the form of a bicarb infusion. She is on no pressors at this point in time in the urine output is in order of 5200 mL an hour. In terms of her electrolytes, the patient's sodium level has been dropping and it's down to 129. BUN is at 40 with a creatinine of 3.47 and a potassium level is at 4.2. Her serum bicarb is improved. She was as low as 13 and she is currently up to 20. Nevertheless, she is developing an acute kidney injury. Her creatinine at time of admission was 1.8 from a normal baseline. She has developed that he worsening of renal function the creatinine is up to 3.47. CAT scan of the abdomen and the pelvis that was done on 01/19/2023 showed no evidence of any hydronephrosis he had she had pancolonic distention with cecum dilatation which was up to 9.4 cm in size. At the same time, her white cell count has dropped down to 17.9 from as high as 25. Hemoglobin is stable at 9.2 and a platelet count is at 159. In terms of cultures, sputum culture has been negative. Abdominal wound cultures were taken and that is also still pending for now and the patient is covered with IV Zosyn. She is afebrile. She is having episodes of low-grade fever. She is on IV Tylenol. She remains hemodynamically stable. The patient remains nothing by mouth for now. The patient has a YASMINE drain located in the left lower quadrant and the output is in order of 200 mL over the past 8 hours. The output is serosanguineous. Her lactic acid level dropped from 7.3 down to 1.8. Blood sugars under adequate control and the patient is taking NovoLog insulin sliding scale coverage. She takes Lantus 55 units twice a day at home. She is also on a combination of Seroquel and Topamax and Prozac at home. Today's evaluation of 01/23/2023, the patient remains intubated on a mechanical ventilator. This morning, the patient is on assist control mode at the rate of 24 with a tidal volume of 400 and FiO2 of 30% with a PEEP of 5. The patient is on propofol running at 30 mcg/kg/m and the patient is adequately sedated at this point in time. PH is at 7.4 with a pCO2 of 40 and pO2 111. The peak airway pressure is 16. Chest x-ray shows no acute abnormalities. No significant orotracheal secretions. She does have some facial and scleral edema which is very much concerning the nursing staff. The patient is afebrile. The patient is hemodynamically stable and she is on no pressors. She is producing adequate amount of urine output. Creatinine is stable compared to yesterday and the level is at 3.4 with a BUN of 39 and a sodium level is at 1:30. Her white cell count is down to 12.8. LFTs are essentially within normal limits. The patient remains on TPN for nutritional support. Some limited activity and stool making was seen in her ileostomy bag. Surgical one-sided dry clean and intact. No signs of any significant volume overload. The patient has been in a possible fluid balance over the past 4 days at least. The patient was taken off the bicarb infusion and the patient is currently on normal saline at rate of 75 mL an hour. She is postop day #4 following a total colectomy and ileostomy. Orogastric tube remains in place with limited output. No other significant events otherwise for now. She is in with intermittent stable. Cardiac rhythm is sinus. On today's evaluation of 01/24/2023, the patient is postop day #5. The patient was weaned off the mechanical ventilator and the patient was extubated yesterday without having any major difficulties. Currently she is Breathing comfortably and she is currently on oxygen at 2 L nasal cannula. NG tube is still in place. No significant cough or sputum production. No significant respiratory distress. Output from the NG has been minimal. Ileostomy is functional and there is some brownish material collecting an ileostomy bag. Bowel sounds remain hypoactive. The patient is still profoundly weak. She has not been started on any form of feeding for the time being. She is hemodynamically stable. Urine output is adequate. TPN is still running for nutritional support. Blood work from today shows a white cell count of 9.3 with a hemoglobin of 9 and a platelet count of 163. Sodium is at 134, BUN is 45 with a creatinine of 2.7 and a patient's creatinine is essentially improving and is dropping on a daily basis. Potassium levels at 4, serum bicarb is 26. Calcium level is at 7.5. LFTs are normal with an albumin level of 2.5. Triglycerides were elevated at 502 and this is probably related to the propofol infusion at the patient was receiving. She is currently off propofol. She has on Lovenox 30 mg subcu for DVT prophylaxis. She is on IV Zosyn. IV fluids are in the form of normal saline at 20 mL an hour. Cardiac rhythm is still sinus. Having difficulties in performing the incentive spirometer at the patient is still white lethargic. Pulse ox is 97% Objective - Vital Signs Vital signs: Vital Signs Temp 98.8 F 01/24/23 08:00 Pulse 95 01/24/23 09:00 Resp 16 01/24/23 09:00 BP 155/66 01/24/23 05:00 Pulse Ox 97 01/24/23 09:00 FiO2 30 01/23/23 11:04 Intake & Output 01/23/23 01/24/23 01/24/23 18:59 06:59 18:59 Intake Total 1577.616 556 379 Output Total 2540 2845 1200 Balance -962.384 -2289 -821 Weight 93.5 kg 91 kg Intake: IV 1196 416 169 ACETAMINOPHEN IV (For NPO 200 200 100 ) 1,000 mg In Empty Bag 1 bag @ 400 mls/hr IVPB Q6H [facility] Rx#:[id number] Mvi, Adult No.4 with Vit 30 0 K 10 ml Trace (Conc-1Ml/ Dose) 1 ml Sodium Acetate 30 meq Potassium Chloride 20 meq Calcium Gluconate 2 gm Magnesium Sulfate gm 1 gm In Amino Acid 4.25%-D10w 1,000 ml @ 30 mls/hr IV .Q24H [facility] Rx#:[id number] Piperacillin-Tazobactam 3 100 .375 gm In Sodium Chloride 0.9% 100 ml @ 25 mls/hr IVPB Q8H [facility] Rx#: [id number] Sodium Chloride 0.9% 1, 900 80 000 ml @ 75 mls/hr IV . [id number] [facility] Rx#:[id number] ns 60 pressure bag 66 36 9 Intake, IV Titration 381.616 140 210 Amount Mvi, Adult No.4 with Vit 300 K 10 ml Trace (Conc-1Ml/ Dose) 1 ml Sodium Acetate 30 meq Potassium Chloride 20 meq Calcium Gluconate 2 gm Magnesium Sulfate gm 1 gm In Amino Acid 4.25%-D10w 1,000 ml @ 30 mls/hr IV .Q24H [facility] Rx#:[id number] Sodium Acetate 30 meq 140 210 Potassium Chloride 20 meq Calcium Gluconate 1 gm Magnesium Sulfate gm 1 gm In Amino Acid 4.25%-D10w 1,000 ml @ 70 mls/hr IV .BY DURATION [facility] Rx#: [id number] propofoL 1,000 mg In 81.616 Empty Bag 1 bag @ 15 MCG/ KG/MIN 7.757 mls/hr IV . [id number] [facility] Rx#:[id number] Output: Gastric Drainage 50 Drainage 130 420 Left Lower Abdomen 130 420 Medial Abdomen 0 Urine 2360 2425 1200 Other: Voiding Method Indwelling Catheter Indwelling Catheter ABP, PAP, CO, CI - Last Documented Arterial Blood Pressure 179/68 - Exam No acute distress, sedated, sedated, weak, still very much lethargic, extubated currently on 2 L of O2 nasal cannula. Breathing is nonlabored Head exam was generally normal. There was no scleral icterus or corneal arcus. Mucous membranes were moist. HEENT examination is grossly unremarkable. Neck supple. Full range of motion. No adenopathy thyromegaly or neck vein distention. Cardiovascular examination reveals regular rhythm rate. S1-S2 normal. No S3 or S4. No discernible murmur noted. Heart sounds are distant. Lungs reveal scattered bilateral rhonchi, which are moderate in severity. No wheezes or crackles. Breath sounds are equal bilaterally. Abdomen soft, with ileostomy noted. Diaz-Benítez drains are noted. In the YASMINE drain is in the left lower quadrant. Bowel sounds are hypoactive. No abdominal distention. No significant output through the ileostomy at this point in time. Extremities are intact. No cyanosis clubbing or edema. The patient has a right below the knee amputation. The patient also has several amputated toes in the left foot. She has diminished pulses in the left lower extremity. No significant edema. No cyanosis. No digital clubbing. The patient has an arterial line in her right radial artery. Skin is without rash or lesion. Neurologic examination , the patient is lethargic and sleepy and arousable. - Labs CBC & Chem 7: 01/24/23 04:30 01/24/23 04:30 Labs: Abnormal Lab Results - Last 24 Hours (Table) 01/23/23 01/23/23 01/23/23 Range/Units 04:08 11:41 12:04 RBC (3.80-5.40) m/uL Hgb (11.4-16.0) gm/dL Hct (34.0-46.0) % ABG Total CO2 25 H (19-24) mmol/L ABG O2 Saturation 98.1 H (94-97) % Sodium (137-145) mmol/L BUN (7-17) mg/dL Creatinine (0.52-1.04) mg/dL Glucose (74-99) mg/dL POC Glucose (mg/dL) 176 H (70-110) mg/dL Calcium (8.4-10.2) mg/dL Phosphorus (2.5-4.5) mg/dL AST (14-36) U/L Alkaline Phosphatase (38-126) U/L Total Protein (6.3-8.2) g/dL Albumin (3.5-5.0) g/dL Triglycerides 502.00 H (0.00-149.00) mg/dL 01/23/23 01/23/23 01/24/23 Range/Units 17:23 23:20 04:30 RBC (3.80-5.40) m/uL Hgb (11.4-16.0) gm/dL Hct (34.0-46.0) % ABG Total CO2 (19-24) mmol/L ABG O2 Saturation (94-97) % Sodium 134 L (137-145) mmol/L BUN 45 H (7-17) mg/dL Creatinine 2.77 H (0.52-1.04) mg/dL Glucose 156 H (74-99) mg/dL POC Glucose (mg/dL) 196 H 236 H (70-110) mg/dL Calcium 7.5 L (8.4-10.2) mg/dL Phosphorus 4.7 H (2.5-4.5) mg/dL AST 104 H (14-36) U/L Alkaline Phosphatase 144 H (38-126) U/L Total Protein 5.0 L (6.3-8.2) g/dL Albumin 2.5 L (3.5-5.0) g/dL Triglycerides (0.00-149.00) mg/dL 01/24/23 01/24/23 Range/Units 04:30 05:46 RBC 3.00 L (3.80-5.40) m/uL Hgb 9.0 L (11.4-16.0) gm/dL Hct 28.3 L (34.0-46.0) % ABG Total CO2 (19-24) mmol/L ABG O2 Saturation (94-97) % Sodium (137-145) mmol/L BUN (7-17) mg/dL Creatinine (0.52-1.04) mg/dL Glucose (74-99) mg/dL POC Glucose (mg/dL) 179 H (70-110) mg/dL Calcium (8.4-10.2) mg/dL Phosphorus (2.5-4.5) mg/dL AST (14-36) U/L Alkaline Phosphatase (38-126) U/L Total Protein (6.3-8.2) g/dL Albumin (3.5-5.0) g/dL Triglycerides (0.00-149.00) mg/dL Microbiology - Last 24 Hours (Table) 01/22/23 09:45 Gram Stain - Preliminary [facility] Body Fluid Culture - Preliminary Assessment and Plan Plan: Severe abdominal distention, abdominal pain, constipation, and severe martinez- colonic distention, status post exploratory laparotomy, lysis of adhesions, total colectomy, ileostomy, abdominal washout, placement of Diaz-Benítez drains, and placement of a wound VAC, postop day #5 , currently nothing by mouth. The patient was given an ileostomy which is n YASMINE drain is in place. Hemodynamically stable on no pressors. Patient has some positive output on an ileostomy bag, NG tube is in place with minimal amount of output. Bowel sounds are hypoactive. The patient remains nothing by mouth. S/P intubation and mechanical ventilation, beginning on January 19, for respiratory failure. Acute lactic acidemia, with anion gap metabolic acidosis, recovered Non-anion gap metabolic acidosis , recovered and the patient is currently off the bicarb infusion Acute kidney injury , creatinine is improving Acute leukocytosis, improving Obesity with a BMI of 38.9 Severe peripheral vascular disease with below-knee amputation on the right and several and predated toes on the left History of diabetes mellitus, maintain on Lantus insulin outpatient basis currently on NovoLog sliding scale coverage History of stress urinary incontinence. History of hypothyroidism. History of hyperlipidemia. History of COPD from ongoing tobacco use. History of depression. hyponatremia, improved and the sodium level is back to normal Plan: Patient is extubated and we'll provide the patient incentive spirometer Avoid sedative medication Continue TPN The bedside swallow evaluation If unable to swallow, we'll consider starting the patient some enteral feedings through her NG tube Monitor the renal function and avoid any nephrotoxic agents. Continue IV Zosyn Keep the patient nothing by mouth for now and the patient has increased functionality of the ileostomy Keep the NG tube in place No pressors for now Slight scale insulin coverage Lovenox 30 mg subcu portably prophylaxis Condition is critical and we'll continue to follow. Evaluation was done in more than 30 minutes.
[2023-01-24] MEDS: hydrALAZINE HCL 20 MG/ML 1 ML VIAL IVP PRN ×4 (10:24→22:04)
[2023-01-24] MEDS: SODIUM CHLORIDE 0.9% 1,000 ML IV SCH (10:30)
--- NOTE | 2023-01-24 11:20 | P.PN ---
Subjective Patient is seen for follow-up for acute kidney injury. Status post emergent explorative laparotomy and lysis of edema just with total abdominal colectomy and end ileostomy on 01/19/2023 Patient was extubated yesterday. She is currently awake, comfortable. Renal function continues to improve Urine output at 200-300 ML per hour Serum creatinine at 2.7 mg/dL today. Patient remains off of pressors Objective - Vital Signs Vital signs: Vital Signs Temp 98.8 F 01/24/23 08:00 Pulse 98 01/24/23 10:00 Resp 19 01/24/23 10:00 BP 155/66 01/24/23 05:00 Pulse Ox 97 01/24/23 10:00 FiO2 30 01/23/23 11:04 Intake & Output 01/23/23 01/24/23 01/24/23 18:59 06:59 18:59 Intake Total 1577.616 556 472 Output Total 2540 2845 1525 Balance -962.384 -2289 -1053 Weight 93.5 kg 91 kg Intake: IV 1196 416 192 ACETAMINOPHEN IV (For NPO 200 200 100 ) 1,000 mg In Empty Bag 1 bag @ 400 mls/hr IVPB Q6H [facility] Rx#:[id number] Mvi, Adult No.4 with Vit 30 0 K 10 ml Trace (Conc-1Ml/ Dose) 1 ml Sodium Acetate 30 meq Potassium Chloride 20 meq Calcium Gluconate 2 gm Magnesium Sulfate gm 1 gm In Amino Acid 4.25%-D10w 1,000 ml @ 30 mls/hr IV .Q24H [facility] Rx#:[id number] Piperacillin-Tazobactam 3 100 .375 gm In Sodium Chloride 0.9% 100 ml @ 25 mls/hr IVPB Q8H [facility] Rx#: [id number] Sodium Chloride 0.9% 1, 900 80 000 ml @ 75 mls/hr IV . [id number] [facility] Rx#:[id number] ns 80 pressure bag 66 36 12 Intake, IV Titration 381.616 140 280 Amount Mvi, Adult No.4 with Vit 300 K 10 ml Trace (Conc-1Ml/ Dose) 1 ml Sodium Acetate 30 meq Potassium Chloride 20 meq Calcium Gluconate 2 gm Magnesium Sulfate gm 1 gm In Amino Acid 4.25%-D10w 1,000 ml @ 30 mls/hr IV .Q24H [facility] Rx#:[id number] Sodium Acetate 30 meq 140 280 Potassium Chloride 20 meq Calcium Gluconate 1 gm Magnesium Sulfate gm 1 gm In Amino Acid 4.25%-D10w 1,000 ml @ 70 mls/hr IV .BY DURATION [facility] Rx#: [id number] propofoL 1,000 mg In 81.616 Empty Bag 1 bag @ 15 MCG/ KG/MIN 7.757 mls/hr IV . [id number] [facility] Rx#:[id number] Output: Gastric Drainage 50 Drainage 130 420 Left Lower Abdomen 130 420 Medial Abdomen 0 Urine 2360 2425 1525 Other: Voiding Method Indwelling Catheter Indwelling Catheter ABP, PAP, CO, CI - Last Documented Arterial Blood Pressure 165/61 - Exam Patient is awake, comfortable Examination of the heart S1 and S2 Examination of the lungs bilateral breath sounds are heard Abdomen is soft it is currently dressed Drains are noted. Examination lower extremity shows right BKA. No significant edema noted PIGEON [employer]CIER examination grossly intact - Labs CBC & Chem 7: 01/24/23 04:30 01/24/23 04:30 Labs: Abnormal Lab Results - Last 24 Hours (Table) 01/23/23 01/23/23 01/23/23 Range/Units 04:08 11:41 12:04 RBC (3.80-5.40) m/uL Hgb (11.4-16.0) gm/dL Hct (34.0-46.0) % ABG Total CO2 25 H (19-24) mmol/L ABG O2 Saturation 98.1 H (94-97) % Sodium (137-145) mmol/L BUN (7-17) mg/dL Creatinine (0.52-1.04) mg/dL Glucose (74-99) mg/dL POC Glucose (mg/dL) 176 H (70-110) mg/dL Calcium (8.4-10.2) mg/dL Phosphorus (2.5-4.5) mg/dL AST (14-36) U/L Alkaline Phosphatase (38-126) U/L Total Protein (6.3-8.2) g/dL Albumin (3.5-5.0) g/dL Triglycerides 502.00 H (0.00-149.00) mg/dL 01/23/23 01/23/23 01/24/23 Range/Units 17:23 23:20 04:30 RBC (3.80-5.40) m/uL Hgb (11.4-16.0) gm/dL Hct (34.0-46.0) % ABG Total CO2 (19-24) mmol/L ABG O2 Saturation (94-97) % Sodium 134 L (137-145) mmol/L BUN 45 H (7-17) mg/dL Creatinine 2.77 H (0.52-1.04) mg/dL Glucose 156 H (74-99) mg/dL POC Glucose (mg/dL) 196 H 236 H (70-110) mg/dL Calcium 7.5 L (8.4-10.2) mg/dL Phosphorus 4.7 H (2.5-4.5) mg/dL AST 104 H (14-36) U/L Alkaline Phosphatase 144 H (38-126) U/L Total Protein 5.0 L (6.3-8.2) g/dL Albumin 2.5 L (3.5-5.0) g/dL Triglycerides (0.00-149.00) mg/dL 01/24/23 01/24/23 Range/Units 04:30 05:46 RBC 3.00 L (3.80-5.40) m/uL Hgb 9.0 L (11.4-16.0) gm/dL Hct 28.3 L (34.0-46.0) % ABG Total CO2 (19-24) mmol/L ABG O2 Saturation (94-97) % Sodium (137-145) mmol/L BUN (7-17) mg/dL Creatinine (0.52-1.04) mg/dL Glucose (74-99) mg/dL POC Glucose (mg/dL) 179 H (70-110) mg/dL Calcium (8.4-10.2) mg/dL Phosphorus (2.5-4.5) mg/dL AST (14-36) U/L Alkaline Phosphatase (38-126) U/L Total Protein (6.3-8.2) g/dL Albumin (3.5-5.0) g/dL Triglycerides (0.00-149.00) mg/dL Microbiology - Last 24 Hours (Table) 01/22/23 09:45 Gram Stain - Preliminary [facility] Body Fluid Culture - Preliminary Assessment and Plan Assessment: 1. Acute kidney injury, ischemic ATN currently nonoliguric. No renal abnormalities mentioned on CT. UA shows WBCs 33, 2+ protein no blood. Urine output has improved and serum creatinine continues to improve. 2. Septic shock associated with ischemic bowel 3. Lactic acidosis and anion gap metabolic acidosis associated with ischemic bowel septic shock and acute kidney injury 4. Hyponatremia associated with hypotonic fluid with acute kidney injury 5. Acute hypoxic respiratory failure, status post extubation Plan: Continue off of IV fluids Maintained on TPN Repeat labs in a.m.
[2023-01-24 11:42] LABS: Glucose,Whole Blood 266 mg/dL (70-110)
--- NOTE | 2023-01-24 13:04 | P.PN ---
Subjective Progress Note Date: 01/24/23 CHIEF COMPLAINT: Acute abdomen with ischemic bowel HISTORY OF PRESENT ILLNESS: Postop day #5 status post exploratory laparotomy with total abdominal colectomy and end ileostomy, lysis of adhesions. Patient currently ICU. She was extubated yesterday. She is on 2 liters of oxygen. She is still pretty lethargic. TPN is on for nutrition. Her ostomy is functioning. Afebrile. WBC is down from 12-9.3 Hgb 8.8-9.0 platelets 163 creatinine 3.4 down to 2.77. Patient has had good urine output. YASMINE drain with 420 mL serosanguineous output. YASMINE drain culture result pending PHYSICAL EXAM: VITAL SIGNS: Reviewed GENERAL: Well-developed in no acute distress. HEENT: No sclera icterus. Extraocular movements grossly intact. Moist buccal mucosa. Head is atraumatic, normocephalic. Hears conversational speech. No nasal drainage. NECK: Supple without lymphadenopathy. CHEST: Non-labored respirations and equal bilateral excursions. CARDIOVASCULAR: Palpable 2+ radial pulses. ABDOMEN: Soft. Nondistended. Prevana wound vac in place. YASMINE drain with serosanguineous output. Ileostomy with stool MUSCULOSKELETAL: No clubbing or cyanosis. NEUROLOGIC: Patient intubated and sedated PSYCH: Appropriate affect. Alert and oriented to person, place and time. SKIN: Well perfused. Good skin turgor. ASSESSMENT: 1. Acute abdomen with ischemic bowel 2. Hypertensive heart disease with congestive heart failure 3. Morbid obesity due to excess calories, BMI over 34.8 4. Acute renal failure due to dehydration 5. History of lower extremity amputee 6. Chronic obstructive pulmonary disease 7. Diabetes type 2, insulin-dependent with diabetic nephropathy 8. Gastroesophageal reflux disease 9. Hypotension due to hypovolemia 10. Lactic acidosis 11. Septic shock due to bowel 12. Status post total abdominal colectomy PLAN: -Continue ICU management -Continue supportive care -Continue antibiotics -Follow up on fluid from YASMINE training culture -Continue TPN for nutrition support -GI prophylaxis Protonix and DVT prophylaxis Lovenox Physician Internet Marketing Consultant note has been reviewed by physician. Signing provider agrees with the documented findings, assessment, and plan of care. Objective - Vital Signs Vital signs: Vital Signs Temp 98.8 F 01/24/23 08:00 Pulse 98 01/24/23 10:00 Resp 19 01/24/23 10:00 BP 155/66 01/24/23 05:00 Pulse Ox 97 01/24/23 10:00 FiO2 30 01/23/23 11:04 Intake & Output 01/23/23 01/24/23 01/24/23 18:59 06:59 18:59 Intake Total 1577.616 556 472 Output Total 7229 5935 1525 Balance -962.384 -2289 -1053 Weight 93.5 kg 91 kg Intake: IV 1196 416 192 ACETAMINOPHEN IV (For NPO 200 200 100 ) 1,000 mg In Empty Bag 1 bag @ 400 mls/hr IVPB Q6H [facility] Rx#:[id number] Mvi, Adult No.4 with Vit 30 0 K 10 ml Trace (Conc-1Ml/ Dose) 1 ml Sodium Acetate 30 meq Potassium Chloride 20 meq Calcium Gluconate 2 gm Magnesium Sulfate gm 1 gm In Amino Acid 4.25%-D10w 1,000 ml @ 30 mls/hr IV .Q24H [facility] Rx#:[id number] Piperacillin-Tazobactam 3 100 .375 gm In Sodium Chloride 0.9% 100 ml @ 25 mls/hr IVPB Q8H [facility] Rx#: [id number] Sodium Chloride 0.9% 1, 900 80 000 ml @ 75 mls/hr IV . [id number] [facility] Rx#:[id number] ns 80 pressure bag 66 36 12 Intake, IV Titration 381.616 140 280 Amount Mvi, Adult No.4 with Vit 300 K 10 ml Trace (Conc-1Ml/ Dose) 1 ml Sodium Acetate 30 meq Potassium Chloride 20 meq Calcium Gluconate 2 gm Magnesium Sulfate gm 1 gm In Amino Acid 4.25%-D10w 1,000 ml @ 30 mls/hr IV .Q24H [facility] Rx#:[id number] Sodium Acetate 30 meq 140 280 Potassium Chloride 20 meq Calcium Gluconate 1 gm Magnesium Sulfate gm 1 gm In Amino Acid 4.25%-D10w 1,000 ml @ 70 mls/hr IV .BY DURATION [facility] Rx#: [id number] propofoL 1,000 mg In 81.616 Empty Bag 1 bag @ 15 MCG/ KG/MIN 7.757 mls/hr IV . [id number] [facility] Rx#:[id number] Output: Gastric Drainage 50 Drainage 130 420 Left Lower Abdomen 130 420 Medial Abdomen 0 Urine 2360 2425 1525 Other: Voiding Method Indwelling Catheter Indwelling Catheter ABP, PAP, CO, CI - Last Documented Arterial Blood Pressure 165/61 - Labs CBC & Chem 7: 01/24/23 04:30 01/24/23 04:30 Labs: Abnormal Lab Results - Last 24 Hours (Table) 01/23/23 01/23/23 01/23/23 Range/Units 04:08 11:41 12:04 RBC (3.80-5.40) m/uL Hgb (11.4-16.0) gm/dL Hct (34.0-46.0) % ABG Total CO2 25 H (19-24) mmol/L ABG O2 Saturation 98.1 H (94-97) % Sodium (137-145) mmol/L BUN (7-17) mg/dL Creatinine (0.52-1.04) mg/dL Glucose (74-99) mg/dL POC Glucose (mg/dL) 176 H (70-110) mg/dL Calcium (8.4-10.2) mg/dL Phosphorus (2.5-4.5) mg/dL AST (14-36) U/L Alkaline Phosphatase (38-126) U/L Total Protein (6.3-8.2) g/dL Albumin (3.5-5.0) g/dL Triglycerides 502.00 H (0.00-149.00) mg/dL 01/23/23 01/23/23 01/24/23 Range/Units 17:23 23:20 04:30 RBC (3.80-5.40) m/uL Hgb (11.4-16.0) gm/dL Hct (34.0-46.0) % ABG Total CO2 (19-24) mmol/L ABG O2 Saturation (94-97) % Sodium 134 L (137-145) mmol/L BUN 45 H (7-17) mg/dL Creatinine 2.77 H (0.52-1.04) mg/dL Glucose 156 H (74-99) mg/dL POC Glucose (mg/dL) 196 H 236 H (70-110) mg/dL Calcium 7.5 L (8.4-10.2) mg/dL Phosphorus 4.7 H (2.5-4.5) mg/dL AST 104 H (14-36) U/L Alkaline Phosphatase 144 H (38-126) U/L Total Protein 5.0 L (6.3-8.2) g/dL Albumin 2.5 L (3.5-5.0) g/dL Triglycerides (0.00-149.00) mg/dL 01/24/23 01/24/23 Range/Units 04:30 05:46 RBC 3.00 L (3.80-5.40) m/uL Hgb 9.0 L (11.4-16.0) gm/dL Hct 28.3 L (34.0-46.0) % ABG Total CO2 (19-24) mmol/L ABG O2 Saturation (94-97) % Sodium (137-145) mmol/L BUN (7-17) mg/dL Creatinine (0.52-1.04) mg/dL Glucose (74-99) mg/dL POC Glucose (mg/dL) 179 H (70-110) mg/dL Calcium (8.4-10.2) mg/dL Phosphorus (2.5-4.5) mg/dL AST (14-36) U/L Alkaline Phosphatase (38-126) U/L Total Protein (6.3-8.2) g/dL Albumin (3.5-5.0) g/dL Triglycerides (0.00-149.00) mg/dL Microbiology - Last 24 Hours (Table) 01/22/23 09:45 Gram Stain - Preliminary [facility] Body Fluid Culture - Preliminary
--- NOTE | 2023-01-24 14:44 | P.PN ---
Subjective Progress Note Date: 01/24/23 Principal diagnosis: Ischemic colitis patient is a 67-year-old female with a past medical history significant for type 2 diabetes mellitus COPD morbid obesity did have a history of right below the knee amputation and left big toe amputation history of smoking presenting to the hospital with a 2-week history of abdominal pain , patient has been diagnosed with ischemic colitis in this patient with status post subtotal colectomy and ileostomy. Patient has been extubated as of 01/23/2023 On today's evaluation that is 01/24/2023, the patient remains to be afebrile, pierre acevedo is off pressor support, patient is breathing comfortably on 2 L nasal cannula oxygen patient did have ordered her ileostomy bag still have the NG and is getting TPN for nutrition patient is awake not a good historian though, Objective - Vital Signs Vital signs: Vital Signs Temp 98.7 F 01/24/23 12:00 Pulse 96 01/24/23 13:00 Resp 22 01/24/23 13:00 BP 155/66 01/24/23 05:00 Pulse Ox 97 01/24/23 13:00 FiO2 30 01/23/23 11:04 Intake & Output 01/23/23 01/24/23 01/24/23 18:59 06:59 18:59 Intake Total 1577.616 556 851 Output Total 3055 9175 2600 Balance -753.991 -3266 -3522 Weight 93.5 kg 91 kg Intake: IV 1196 416 201 ACETAMINOPHEN IV (For NPO 200 200 100 ) 1,000 mg In Empty Bag 1 bag @ 400 mls/hr IVPB Q6H [facility] Rx#:[id number] Mvi, Adult No.4 with Vit 30 0 K 10 ml Trace (Conc-1Ml/ Dose) 1 ml Sodium Acetate 30 meq Potassium Chloride 20 meq Calcium Gluconate 2 gm Magnesium Sulfate gm 1 gm In Amino Acid 4.25%-D10w 1,000 ml @ 30 mls/hr IV .Q24H [facility] Rx#:[id number] Piperacillin-Tazobactam 3 100 .375 gm In Sodium Chloride 0.9% 100 ml @ 25 mls/hr IVPB Q8H [facility] Rx#: [id number] Sodium Chloride 0.9% 1, 900 80 000 ml @ 75 mls/hr IV . [id number] [facility] Rx#:[id number] ns 80 pressure bag 66 36 21 Intake, IV Titration 381.616 140 650 Amount Mvi, Adult No.4 with Vit 300 K 10 ml Trace (Conc-1Ml/ Dose) 1 ml Sodium Acetate 30 meq Potassium Chloride 20 meq Calcium Gluconate 2 gm Magnesium Sulfate gm 1 gm In Amino Acid 4.25%-D10w 1,000 ml @ 30 mls/hr IV .Q24H [facility] Rx#:[id number] Piperacillin-Tazobactam 3 100 .375 gm In Sodium Chloride 0.9% 100 ml @ 25 mls/hr IVPB Q12H [facility] Rx# :[id number] Sodium Acetate 30 meq 140 490 Potassium Chloride 20 meq Calcium Gluconate 1 gm Magnesium Sulfate gm 1 gm In Amino Acid 4.25%-D10w 1,000 ml @ 70 mls/hr IV .BY DURATION [facility] Rx#: [id number] Sodium Chloride 0.9% 1, 60 000 ml @ 20 mls/hr IV . Q24H [facility] Rx#:[id number] propofoL 1,000 mg In 81.616 Empty Bag 1 bag @ 15 MCG/ KG/MIN 7.757 mls/hr IV . [id number] [facility] Rx#:[id number] Output: Gastric Drainage 50 Drainage 130 420 Left Lower Abdomen 130 420 Medial Abdomen 0 Urine 2360 2425 2600 Other: Voiding Method Indwelling Catheter Indwelling Catheter Indwelling Catheter ABP, PAP, CO, CI - Last Documented Arterial Blood Pressure 157/50 - Exam GENERAL DESCRIPTION: An elderly female lying in bed in no distress RESPIRATORY SYSTEM: Unlabored breathing , decreased breath sounds at bases HEART: S1 S2 regular rate and rhythm , ABDOMEN: Soft , midline incision is intact EXTREMITIES: Right BK stump incision is healed - Labs CBC & Chem 7: 01/24/23 04:30 01/24/23 04:30 Labs: Abnormal Lab Results - Last 24 Hours (Table) 01/23/23 01/23/23 01/24/23 Range/Units 17:23 23:20 04:30 RBC (3.80-5.40) m/uL Hgb (11.4-16.0) gm/dL Hct (34.0-46.0) % Sodium 134 L (137-145) mmol/L BUN 45 H (7-17) mg/dL Creatinine 2.77 H (0.52-1.04) mg/dL Glucose 156 H (74-99) mg/dL POC Glucose (mg/dL) 196 H 236 H (70-110) mg/dL Calcium 7.5 L (8.4-10.2) mg/dL Phosphorus 4.7 H (2.5-4.5) mg/dL AST 104 H (14-36) U/L Alkaline Phosphatase 144 H (38-126) U/L Total Protein 5.0 L (6.3-8.2) g/dL Albumin 2.5 L (3.5-5.0) g/dL 01/24/23 01/24/23 01/24/23 Range/Units 04:30 05:46 11:41 RBC 3.00 L (3.80-5.40) m/uL Hgb 9.0 L (11.4-16.0) gm/dL Hct 28.3 L (34.0-46.0) % Sodium (137-145) mmol/L BUN (7-17) mg/dL Creatinine (0.52-1.04) mg/dL Glucose (74-99) mg/dL POC Glucose (mg/dL) 179 H 266 H (70-110) mg/dL Calcium (8.4-10.2) mg/dL Phosphorus (2.5-4.5) mg/dL AST (14-36) U/L Alkaline Phosphatase (38-126) U/L Total Protein (6.3-8.2) g/dL Albumin (3.5-5.0) g/dL Microbiology - Last 24 Hours (Table) 01/22/23 09:45 Gram Stain - Preliminary [facility] Body Fluid Culture - Preliminary Assessment and Plan (1) Ischemic colitis Current Visit: Yes Status: Acute Code(s): K55.9 - VASCULAR DISORDER OF INTESTINE, UNSPECIFIED SNOMED Code(s): 08121238 (2) Sepsis Current Visit: No Status: Acute Code(s): A41.9 - SEPSIS, UNSPECIFIED ORGANISM SNOMED Code(s): 72663689 Plan: 1patient presented to hospital abdominal pain has been diagnosed with ischemic colitis in this patient infusion of septic shock with low-grade fever tachycardia elevated white count elevated lactic acid source being ischemic large bowel status post subtotal colectomy and end ileostomy we will need to cover for the enteric gram-negative both aerobes and anaerobes abdominal culture, which are so far pending 2-patient white count has normalized, patient to continue Zosyn 3.375 g every 8 hours and continue with supportive care Family the bedside questions were answered Time with Patient: Less than 30
[2023-01-24 17:56] LABS: Glucose,Whole Blood 265 mg/dL (70-110)
[2023-01-24] MEDS: NOREPINEPHRINE 4 MG in SODIUM CHLORIDE 0.9% 250 ML IV SCH (23:46)
[2023-01-25 00:19] LABS: Glucose,Whole Blood 290 mg/dL (70-110)
[2023-01-25] MEDS: INSULIN ASPART (NovoLOG) 100 UNIT/ML VIAL SQ SCH ×4 (00:26→17:12)
[2023-01-25] MEDS: PIPERACILLIN-TAZOBACTAM 3.375 GM in SODIUM CHLORIDE 0.9% 100 ML IVPB SCH ×2 (00:26→12:06)
[2023-01-25] MEDS: CLEVIDIPINE BUTYRATE 25 MG in EMPTY BAG 1 BAG IV SCH ×7 (00:54→20:25)
[2023-01-25] MEDS: ACETAMINOPHEN IV (For NPO) 1,000 MG in EMPTY BAG 1 BAG IVPB SCH ×4 (03:55→21:50)
[2023-01-25 05:04] LABS: HCT 29.6 % (34.0-46.0); HGB 9.6 gm/dL (11.4-16.0); MCH 30.2 pg (25.0-35.0); MCHC 32.4 g/dL (31.0-37.0); MCV 93.1 fL (80.0-100.0); Mean Platelet Volume 7.4; Platelet Count 206 k/uL (150-450); RBC 3.18 m/uL (3.80-5.40); RDW 14.2 % (11.5-15.5)
[2023-01-25] MEDS: HYDROmorphone 1 MG/ML 1 ML SYRINGE IVP PRN ×4 (05:13→18:30)
[2023-01-25 05:16] LABS: Albumin 2.7 g/dL (3.5-5.0); Calcium 7.8 mg/dL (8.4-10.2); Magnesium 1.8 mg/dL (1.6-2.3); Phosphorus 2.6 mg/dL (2.5-4.5); Total Bilirubin 0.5 mg/dL (0.2-1.3); Total Protein 5.3 g/dL (6.3-8.2)
[2023-01-25 06:38] LABS: Glucose,Whole Blood 380 mg/dL (70-110)
[2023-01-25] MEDS ORDERED: POTASSIUM CHLORIDE 20 MEQ in WATER FOR INJECTION 1 100ML.BAG IVPB STA (07:40)
[2023-01-25] MEDS: ENOXAPARIN 30 MG/0.3 ML SYRINGE SQ SCH (08:07)
[2023-01-25] MEDS: IPRATROPIUM-ALBUTEROL 3 ML NEB INHALATION SCH ×4 (08:12→20:55)
[2023-01-25] MEDS: PANTOPRAZOLE 40 MG/10 ML VIAL IV SCH (08:31)
--- NOTE | 2023-01-25 08:32 | P.PN ---
Subjective Progress Note Date: 01/25/23 Principal diagnosis: Abdominal pain This is a 67-year-old female who presented to the emergency department with complaints of abdominal pain and had not had a bowel movement for multiple days. Patient was found to have an ischemic bowel. She did have a total abdominal colectomy with ileostomy by Dr. Larsen. She did require mechanical ventilation. She does have a significant history of COPD and diabetes, and is a tobacco user. 01/25/23 Patient has been extubated. She is more alert today. Still has TPN blood sugars continue to be elevated. Will order swallow evaluation today to see if she is able to tolerate oral intake. Objective - Vital Signs Vital signs: Vital Signs Temp 98.8 F 01/25/23 08:00 Pulse 112 H 01/25/23 08:23 Resp 16 01/25/23 08:15 BP 129/57 01/24/23 17:00 Pulse Ox 95 01/25/23 08:15 FiO2 30 01/23/23 11:04 Intake & Output 01/24/23 01/25/23 01/25/23 18:59 06:59 18:59 Intake Total 1416 772.2 316 Output Total 4110 2555 675 Balance -2694 -1782.8 -359 Weight 87.7 kg Intake: IV 316 636 146 ACETAMINOPHEN IV (For NPO 200 100 100 ) 1,000 mg In Empty Bag 1 bag @ 400 mls/hr IVPB Q6H [facility] Rx#:[id number] Sodium Acetate 30 meq 280 Potassium Chloride 20 meq Calcium Gluconate 1 gm Magnesium Sulfate gm 1 gm In Amino Acid 4.25%-D10w 1,000 ml @ 70 mls/hr IV .BY DURATION [facility] Rx#: [id number] Sodium Chloride 0.9% 1, 220 40 000 ml @ 20 mls/hr IV . Q24H [facility] Rx#:[id number] ns 80 pressure bag 36 36 6 Intake, IV Titration 1100 136.2 170 Amount Clevidipine Butyrate 25 46.2 mg In Empty Bag 1 bag @ 1 MG/HR 2 mls/hr IV .Q24H [facility] Rx#:[id number] Piperacillin-Tazobactam 3 100 .375 gm In Sodium Chloride 0.9% 100 ml @ 25 mls/hr IVPB Q12H [facility] Rx# :[id number] Potassium Chloride 20 meq 100 In Water For Injection 1 100ml.bag @ 50 mls/hr IVPB [facility] Rx#: [id number] Sodium Acetate 30 meq 840 70 70 Potassium Chloride 20 meq Calcium Gluconate 1 gm Magnesium Sulfate gm 1 gm In Amino Acid 4.25%-D10w 1,000 ml @ 70 mls/hr IV .BY DURATION [facility] Rx#: [id number] Sodium Chloride 0.9% 1, 160 20 000 ml @ 20 mls/hr IV . Q24H [facility] Rx#:[id number] Output: Gastric Drainage 100 Drainage 60 Left Lower Abdomen 60 Medial Abdomen 0 Urine 3950 2555 675 Other: Voiding Method Indwelling Catheter Indwelling Catheter ABP, PAP, CO, CI - Last Documented Arterial Blood Pressure 153/46 - Constitutional General appearance: Present: cooperative, no acute distress - EENT Eyes: Present: EOMI, PERRLA - Neck Neck: Present: normal ROM. Absent: lymphadenopathy, rigidity - Respiratory Respiratory: bilateral: diminished - Cardiovascular Rhythm: regular Heart sounds: normal: S1, S2 - Gastrointestinal General gastrointestinal: Present: decreased bowel sounds - Integumentary Integumentary: Present: normal, normal turgor - Musculoskeletal Musculoskeletal: Present: generalized weakness - Psychiatric Psychiatric: Present: appropriate affect - Labs CBC & Chem 7: 01/25/23 04:56 01/25/23 04:56 Labs: Abnormal Lab Results - Last 24 Hours (Table) 01/24/23 01/24/23 01/25/23 Range/Units 11:41 17:55 00:18 WBC (3.8-10.6) k/uL RBC (3.80-5.40) m/uL Hgb (11.4-16.0) gm/dL Hct (34.0-46.0) % Sodium (137-145) mmol/L Potassium (3.5-5.1) mmol/L Carbon Dioxide (22-30) mmol/L BUN (7-17) mg/dL Creatinine (0.52-1.04) mg/dL Glucose (74-99) mg/dL POC Glucose (mg/dL) 266 H 265 H 290 H (70-110) mg/dL Calcium (8.4-10.2) mg/dL AST (14-36) U/L Alkaline Phosphatase (38-126) U/L Total Protein (6.3-8.2) g/dL Albumin (3.5-5.0) g/dL 01/25/23 01/25/23 01/25/23 Range/Units 04:56 04:56 06:38 WBC 11.0 H (3.8-10.6) k/uL RBC 3.18 L (3.80-5.40) m/uL Hgb 9.6 L (11.4-16.0) gm/dL Hct 29.6 L (34.0-46.0) % Sodium 135 L (137-145) mmol/L Potassium 3.0 L (3.5-5.1) mmol/L Carbon Dioxide 21 L (22-30) mmol/L BUN 48 H (7-17) mg/dL Creatinine 2.07 H (0.52-1.04) mg/dL Glucose 332 H (74-99) mg/dL POC Glucose (mg/dL) 380 H (70-110) mg/dL Calcium 7.8 L (8.4-10.2) mg/dL AST 72 H (14-36) U/L Alkaline Phosphatase 175 H (38-126) U/L Total Protein 5.3 L (6.3-8.2) g/dL Albumin 2.7 L (3.5-5.0) g/dL Microbiology - Last 24 Hours (Table) 01/19/23 21:10 Anaerobic Culture - Final Peritoneal Fluid 01/22/23 09:45 Gram Stain - Preliminary [facility] Body Fluid Culture - Preliminary Assessment and Plan (1) Ischemic bowel disease Current Visit: Yes Status: Acute Code(s): K55.9 - VASCULAR DISORDER OF INTESTINE, UNSPECIFIED SNOMED Code(s): 38046060 (2) COPD (chronic obstructive pulmonary disease) Current Visit: No Status: Acute Code(s): J44.9 - CHRONIC OBSTRUCTIVE PULMONARY DISEASE, UNSPECIFIED SNOMED Code(s): 36285262 (3) Type 2 diabetes mellitus Current Visit: No Status: Acute Code(s): E11.9 - TYPE 2 DIABETES MELLITUS WITHOUT COMPLICATIONS SNOMED Code(s): 78732999 (4) Ischemic colitis Current Visit: Yes Status: Acute Code(s): K55.9 - VASCULAR DISORDER OF INTESTINE, UNSPECIFIED SNOMED Code(s): 20420960 (5) History of below-knee amputation of right lower extremity Current Visit: No Status: Acute Code(s): Z89.511 - ACQUIRED ABSENCE OF RIGHT LEG BELOW KNEE SNOMED Code(s): 366395845562375 (6) Opioid dependence Current Visit: No Status: Acute Code(s): F11.20 - OPIOID DEPENDENCE, UNCOMPLICATED SNOMED Code(s): 12267499 Plan: Appreciate multiple consultants. Check labs in the a.m. Replace potassium per protocol. Patient seen and evaluated by nurse practitioner, physician in agreement with plan
--- NOTE | 2023-01-25 09:22 | P.PN ---
Subjective Progress Note Date: 01/25/23 67-year-old female patient is being seen in follow-up on 01/22/2023. A complicated case of abdominal distention, stooling infection requiring surgical intervention along with multiple medical problems and comorbidities P she initially presented to us with abdominal pain and she has not had a bowel mov ement for more than a week. She had significant abdominal distention. She was taken to the operating room and the patient underwent laparotomy, lysis of adhesions, total colectomy, ileostomy and the patient is currently postop day #3. She has been intubated and kept on a mechanical ventilator since. For now, the patient is still on a mechanical ventilator. She is a propofol which is running at 35 mcg/kg/m and she is adequately sedated and symptoms mechanical ventilator. She is on assist-control mode of mechanical ventilation at the rate of 24 with a rate of 24, tidal volume of 400, FiO2 of 30% and a PEEP of 5. Chest x-ray shows cardiomegaly. Some limited infiltrates in the left lung base and the right lower lobe lateral segment. Orotracheal tube is in a good location. The patient also has a triple-lumen catheter in the left subclavian. NG tube is also in good location. For now, the output from the NG tube is minimal. Her IV fluids are running at a rate of 75 mL an hour and the fluid is in the form of a bicarb infusion. She is on no pressors at this point in time in the urine output is in order of 5200 mL an hour. In terms of her electrolytes, the patient's sodium level has been dropping and it's down to 129. BUN is at 40 with a creatinine of 3.47 and a potassium level is at 4.2. Her serum bicarb is improved. She was as low as 13 and she is currently up to 20. Nevertheless, she is developing an acute kidney injury. Her creatinine at time of admission was 1.8 from a normal baseline. She has developed that he worsening of renal function the creatinine is up to 3.47. CAT scan of the abdomen and the pelvis that was done on 01/19/2023 showed no evidence of any hydronephrosis he had she had pancolonic distention with cecum dilatation which was up to 9.4 cm in size. At the same time, her white cell count has dropped down to 17.9 from as high as 25. Hemoglobin is stable at 9.2 and a platelet count is at 159. In terms of cultures, sputum culture has been negative. Abdominal wound cultures were taken and that is also still pending for now and the patient is covered with IV Zosyn. She is afebrile. She is having episodes of low-grade fever. She is on IV Tylenol. She remains hemodynamically stable. The patient remains nothing by mouth for now. The patient has a YASMINE drain located in the left lower quadrant and the output is in order of 200 mL over the past 8 hours. The output is serosanguineous. Her lactic acid level dropped from 7.3 down to 1.8. Blood sugars under adequate control and the patient is taking NovoLog insulin sliding scale coverage. She takes Lantus 55 units twice a day at home. She is also on a combination of Seroquel and Topamax and Prozac at home. Today's evaluation of 01/23/2023, the patient remains intubated on a mechanical ventilator. This morning, the patient is on assist control mode at the rate of 24 with a tidal volume of 400 and FiO2 of 30% with a PEEP of 5. The patient is on propofol running at 30 mcg/kg/m and the patient is adequately sedated at this point in time. PH is at 7.4 with a pCO2 of 40 and pO2 111. The peak airway pressure is 16. Chest x-ray shows no acute abnormalities. No significant orotracheal secretions. She does have some facial and scleral edema which is very much concerning the nursing staff. The patient is afebrile. The patient is hemodynamically stable and she is on no pressors. She is producing adequate amount of urine output. Creatinine is stable compared to yesterday and the level is at 3.4 with a BUN of 39 and a sodium level is at 1:30. Her white cell count is down to 12.8. LFTs are essentially within normal limits. The patient remains on TPN for nutritional support. Some limited activity and stool making was seen in her ileostomy bag. Surgical one-sided dry clean and intact. No signs of any significant volume overload. The patient has been in a possible fluid balance over the past 4 days at least. The patient was taken off the bicarb infusion and the patient is currently on normal saline at rate of 75 mL an hour. She is postop day #4 following a total colectomy and ileostomy. Orogastric tube remains in place with limited output. No other significant events otherwise for now. She is in with intermittent stable. Cardiac rhythm is sinus. On today's evaluation of 01/24/2023, the patient is postop day #5. The patient was weaned off the mechanical ventilator and the patient was extubated yesterday without having any major difficulties. Currently she is Breathing comfortably and she is currently on oxygen at 2 L nasal cannula. NG tube is still in place. No significant cough or sputum production. No significant respiratory distress. Output from the NG has been minimal. Ileostomy is functional and there is some brownish material collecting an ileostomy bag. Bowel sounds remain hypoactive. The patient is still profoundly weak. She has not been started on any form of feeding for the time being. She is hemodynamically stable. Urine output is adequate. TPN is still running for nutritional support. Blood work from today shows a white cell count of 9.3 with a hemoglobin of 9 and a platelet count of 163. Sodium is at 134, BUN is 45 with a creatinine of 2.7 and a patient's creatinine is essentially improving and is dropping on a daily basis. Potassium levels at 4, serum bicarb is 26. Calcium level is at 7.5. LFTs are normal with an albumin level of 2.5. Triglycerides were elevated at 502 and this is probably related to the propofol infusion at the patient was receiving. She is currently off propofol. She has on Lovenox 30 mg subcu for DVT prophylaxis. She is on IV Zosyn. IV fluids are in the form of normal saline at 20 mL an hour. Cardiac rhythm is still sinus. Having difficulties in performing the incentive spirometer at the patient is still white lethargic. Pulse ox is 97% 01/25/2023, the patient is postoperative day #6. She remains extubated and she is on oxygen at 2 L. NG tube is in place and a swallow evaluation to be done today. She remains on TPN. Angiopathy has been in the order of 200 mL of gastric juice over the past 24 hours. Meanwhile, her ileostomy is functioning. The wound over the abdomen is clean. The patient has a YASMINE drain in her left lower quadrant and output is serosanguineous and minimal. She is resting comfortably , and she is moving all 4 extremities. The patient is moving all 4 extremities. No focal neurological deficits. She is slow in answering questions. He had she is aware that she is in the hospital and she was able to tell me her name and following simple commands. No focal neurological deficit at this point in time. Her blood pressure was quite elevated and based on that the patient was started on Cleviprex Drip which is running at the rate of 8 mg an hour. Her sodium level is at 135 with a potassium level of 3 that needs to be replaced and a serum bicarb of 21. Creatinine is down to 2.07. White cell count is 11 with a hemoglobin of 9.6 and a platelet count of 206. The patient is on Lovenox for DVT prophylaxis and insulin sliding scale coverage. She remains on IV Zosyn. Objective - Vital Signs Vital signs: Vital Signs Temp 98.8 F 01/25/23 08:00 Pulse 112 H 01/25/23 08:23 Resp 16 01/25/23 08:15 BP 129/57 01/24/23 17:00 Pulse Ox 95 01/25/23 08:15 FiO2 30 01/23/23 11:04 Intake & Output 01/24/23 01/25/23 01/25/23 18:59 06:59 18:59 Intake Total 1416 772.2 316 Output Total 4110 2555 675 Balance -2694 -1782.8 -359 Weight 87.7 kg Intake: IV 316 636 146 ACETAMINOPHEN IV (For NPO 200 100 100 ) 1,000 mg In Empty Bag 1 bag @ 400 mls/hr IVPB Q6H [facility] Rx#:[id number] Sodium Acetate 30 meq 280 Potassium Chloride 20 meq Calcium Gluconate 1 gm Magnesium Sulfate gm 1 gm In Amino Acid 4.25%-D10w 1,000 ml @ 70 mls/hr IV .BY DURATION [facility] Rx#: [id number] Sodium Chloride 0.9% 1, 220 40 000 ml @ 20 mls/hr IV . Q24H [facility] Rx#:[id number] ns 80 pressure bag 36 36 6 Intake, IV Titration 1100 136.2 170 Amount Clevidipine Butyrate 25 46.2 mg In Empty Bag 1 bag @ 1 MG/HR 2 mls/hr IV .Q24H [facility] Rx#:[id number] Piperacillin-Tazobactam 3 100 .375 gm In Sodium Chloride 0.9% 100 ml @ 25 mls/hr IVPB Q12H [facility] Rx# :[id number] Potassium Chloride 20 meq 100 In Water For Injection 1 100ml.bag @ 50 mls/hr IVPB ONCE [facility] Rx#: [id number] Sodium Acetate 30 meq 840 70 70 Potassium Chloride 20 meq Calcium Gluconate 1 gm Magnesium Sulfate gm 1 gm In Amino Acid 4.25%-D10w 1,000 ml @ 70 mls/hr IV .BY DURATION [facility] Rx#: [id number] Sodium Chloride 0.9% 1, 160 20 000 ml @ 20 mls/hr IV . Q24H [facility] Rx#:[id number] Output: Gastric Drainage 100 Drainage 60 Left Lower Abdomen 60 Medial Abdomen 0 Urine 3950 2555 675 Other: Voiding Method Indwelling Catheter Indwelling Catheter ABP, PAP, CO, CI - Last Documented Arterial Blood Pressure 153/46 - Exam No acute distress, sedated, sedated, weak, still very much lethargic, extubated currently on 2 L of O2 nasal cannula. Breathing is nonlabored, awake and alert and communicating. NG tube is still in place. Head exam was generally normal. There was no scleral icterus or corneal arcus. Mucous membranes were moist. HEENT examination is grossly unremarkable. Neck supple. Full range of motion. No adenopathy thyromegaly or neck vein distention. Cardiovascular examination reveals regular rhythm rate. S1-S2 normal. No S3 or S4. No discernible murmur noted. Heart sounds are distant. Lungs reveal scattered bilateral rhonchi, which are moderate in severity. No wh eezes or crackles. Breath sounds are equal bilaterally. Abdomen soft, with ileostomy noted. Diaz-Benítez drains are noted. In the YASMINE drain is in the left lower quadrant. Bowel sounds are hypoactive. No abdominal distention. No significant output through the ileostomy at this point in time. Extremities are intact. No cyanosis clubbing or edema. The patient has a right below the knee amputation. The patient also has several amputated toes in the left foot. She has diminished pulses in the left lower extremity. No significant edema. No cyanosis. No digital clubbing. The patient has an arterial line in her right radial artery. Skin is without rash or lesion. Neurologic examination , the patient is lethargic and sleepy and arousable. - Labs CBC & Chem 7: 01/25/23 04:56 01/25/23 04:56 Labs: Abnormal Lab Results - Last 24 Hours (Table) 01/24/23 01/24/23 01/25/23 Range/Units 11:41 17:55 00:18 WBC (3.8-10.6) k/uL RBC (3.80-5.40) m/uL Hgb (11.4-16.0) gm/dL Hct (34.0-46.0) % Sodium (137-145) mmol/L Potassium (3.5-5.1) mmol/L Carbon Dioxide (22-30) mmol/L BUN (7-17) mg/dL Creatinine (0.52-1.04) mg/dL Glucose (74-99) mg/dL POC Glucose (mg/dL) 266 H 265 H 290 H (70-110) mg/dL Calcium (8.4-10.2) mg/dL AST (14-36) U/L Alkaline Phosphatase (38-126) U/L Total Protein (6.3-8.2) g/dL Albumin (3.5-5.0) g/dL 01/25/23 01/25/23 01/25/23 Range/Units 04:56 04:56 06:38 WBC 11.0 H (3.8-10.6) k/uL RBC 3.18 L (3.80-5.40) m/uL Hgb 9.6 L (11.4-16.0) gm/dL Hct 29.6 L (34.0-46.0) % Sodium 135 L (137-145) mmol/L Potassium 3.0 L (3.5-5.1) mmol/L Carbon Dioxide 21 L (22-30) mmol/L BUN 48 H (7-17) mg/dL Creatinine 2.07 H (0.52-1.04) mg/dL Glucose 332 H (74-99) mg/dL POC Glucose (mg/dL) 380 H (70-110) mg/dL Calcium 7.8 L (8.4-10.2) mg/dL AST 72 H (14-36) U/L Alkaline Phosphatase 175 H (38-126) U/L Total Protein 5.3 L (6.3-8.2) g/dL Albumin 2.7 L (3.5-5.0) g/dL Microbiology - Last 24 Hours (Table) 01/19/23 21:10 Anaerobic Culture - Final Peritoneal Fluid 01/22/23 09:45 Gram Stain - Preliminary Diaz-Benítez Body Fluid Culture - Preliminary Assessment and Plan Plan: Severe abdominal distention, abdominal pain, constipation, and severe martinez- colonic distention, status post exploratory laparotomy, lysis of adhesions, total colectomy, ileostomy, abdominal washout, placement of Diaz-Benítez drains, and placement of a wound VAC, postop day #6 , currently nothing by mouth. The patient was given an ileostomy which is n YASMINE drain is in place. Hemodynamically stable on no pressors. Patient has positive output on an ileostomy bag, NG tube is in place with minimal amount of output. Bowel sounds are hypoactive. The patient remains nothing by mouth. The patient remains on TPN for nutritional support. S/P intubation and mechanical ventilation, beginning on January 19, for respiratory failure., The patient was extubated on 01/23/2023 Acute lactic acidemia, with anion gap metabolic acidosis, recovered Non-anion gap metabolic acidosis , recovered and the patient is currently off the bicarb infusion Acute kidney injury , creatinine is improving Acute leukocytosis, improving Obesity with a BMI of 38.9 Severe peripheral vascular disease with below-knee amputation on the right and several and predated toes on the left History of diabetes mellitus, currently on NovoLog sliding scale coverage History of stress urinary incontinence. History of hypothyroidism. History of hyperlipidemia. History of COPD from ongoing tobacco use. History of depression. hyponatremia, improved and the sodium level is back to normal Plan: Encourage the use of incentive spirometer Swallow evaluation today Continue TPN May need to start enteral feeding via NG tube and the patient failed swallow evaluation Monitor the renal function and avoid any nephrotoxic agents. Continue IV Zosyn increased functionality of the ileostomy Keep the NG tube in place No pressors for now Slight scale insulin coverage Lovenox 30 mg subcu portably prophylaxis Involved physical therapy Condition is critical and we'll continue to follow.
--- NOTE | 2023-01-25 10:55 | P.PN ---
Subjective Patient is seen for follow-up for acute kidney injury. Status post emergent explorative laparotomy and lysis of edema just with total abdominal colectomy and end ileostomy on 01/19/2023 Patient has been extubated. She is currently awake, comfortable. Renal function continues to improve Urine output at 200-300 ML per hour Serum creatinine at 2.0 mg/dL today. Potassium was 3.0, being replaced. Patient remains off of pressors Objective - Vital Signs Vital signs: Vital Signs Temp 98.8 F 01/25/23 08:00 Pulse 112 H 01/25/23 10:15 Resp 16 01/25/23 10:15 BP 129/57 01/24/23 17:00 Pulse Ox 94 L 01/25/23 10:15 FiO2 30 01/23/23 11:04 Intake & Output 01/24/23 01/25/23 01/25/23 18:59 06:59 18:59 Intake Total 1416 772.2 600.533 Output Total 4110 2555 1550 Balance -2694 -1782.8 -949.467 Weight 87.7 kg Intake: IV 316 636 192 ACETAMINOPHEN IV (For NPO 200 100 100 ) 1,000 mg In Empty Bag 1 bag @ 400 mls/hr IVPB Q6H [facility] Rx#:[id number] Sodium Acetate 30 meq 280 Potassium Chloride 20 meq Calcium Gluconate 1 gm Magnesium Sulfate gm 1 gm In Amino Acid 4.25%-D10w 1,000 ml @ 70 mls/hr IV .BY DURATION [facility] Rx#: [id number] Sodium Chloride 0.9% 1, 220 80 000 ml @ 20 mls/hr IV . Q24H [facility] Rx#:[id number] ns 80 pressure bag 36 36 12 Intake, IV Titration 1100 136.2 408.533 Amount Clevidipine Butyrate 25 46.2 98.533 mg In Empty Bag 1 bag @ 1 MG/HR 2 mls/hr IV .Q24H [facility] Rx#:[id number] Mvi, Adult No.4 with Vit 210 K 10 ml Trace (Conc-1Ml/ Dose) 1 ml Sodium Acetate 34 meq Potassium Chloride 20 meq Calcium Gluconate 1 gm Magnesium Sulfate gm 1.5 gm Potassium Phosphate 6 mmol In Amino Acid 4.25%- D10w 1,000 ml @ 70 mls/hr IV .BY DURATION [facility] Rx#: [id number] Piperacillin-Tazobactam 3 100 .375 gm In Sodium Chloride 0.9% 100 ml @ 25 mls/hr IVPB Q12H [facility] Rx# :[id number] Potassium Chloride 20 meq 100 In Water For Injection 1 100ml.bag @ 50 mls/hr IVPB ONCE [facility] Rx#: [id number] Sodium Acetate 30 meq 840 70 Potassium Chloride 20 meq Calcium Gluconate 1 gm Magnesium Sulfate gm 1 gm In Amino Acid 4.25%-D10w 1,000 ml @ 70 mls/hr IV .BY DURATION [facility] Rx#: [id number] Sodium Chloride 0.9% 1, 160 20 000 ml @ 20 mls/hr IV . Q24H [facility] Rx#:[id number] Output: Gastric Drainage 100 Drainage 60 Left Lower Abdomen 60 Medial Abdomen 0 Urine 3950 2555 1550 Other: Voiding Method Indwelling Catheter Indwelling Catheter Indwelling Catheter ABP, PAP, CO, CI - Last Documented Arterial Blood Pressure 167/47 - Exam Patient is awake, comfortable Examination of the heart S1 and S2 Examination of the lungs bilateral breath sounds are heard Abdomen is soft it is currently dressed Drains are noted. Examination lower extremity shows right BKA. No significant edema noted [employer] examination grossly intact - Labs CBC & Chem 7: 01/25/23 04:56 01/25/23 04:56 Labs: Abnormal Lab Results - Last 24 Hours (Table) 01/24/23 01/24/23 01/25/23 Range/Units 11:41 17:55 00:18 WBC (3.8-10.6) k/uL RBC (3.80-5.40) m/uL Hgb (11.4-16.0) gm/dL Hct (34.0-46.0) % Sodium (137-145) mmol/L Potassium (3.5-5.1) mmol/L Carbon Dioxide (22-30) mmol/L BUN (7-17) mg/dL Creatinine (0.52-1.04) mg/dL Glucose (74-99) mg/dL POC Glucose (mg/dL) 266 H 265 H 290 H (70-110) mg/dL Calcium (8.4-10.2) mg/dL AST (14-36) U/L Alkaline Phosphatase (38-126) U/L Total Protein (6.3-8.2) g/dL Albumin (3.5-5.0) g/dL 01/25/23 01/25/23 01/25/23 Range/Units 04:56 04:56 06:38 WBC 11.0 H (3.8-10.6) k/uL RBC 3.18 L (3.80-5.40) m/uL Hgb 9.6 L (11.4-16.0) gm/dL Hct 29.6 L (34.0-46.0) % Sodium 135 L (137-145) mmol/L Potassium 3.0 L (3.5-5.1) mmol/L Carbon Dioxide 21 L (22-30) mmol/L BUN 48 H (7-17) mg/dL Creatinine 2.07 H (0.52-1.04) mg/dL Glucose 332 H (74-99) mg/dL POC Glucose (mg/dL) 380 H (70-110) mg/dL Calcium 7.8 L (8.4-10.2) mg/dL AST 72 H (14-36) U/L Alkaline Phosphatase 175 H (38-126) U/L Total Protein 5.3 L (6.3-8.2) g/dL Albumin 2.7 L (3.5-5.0) g/dL Microbiology - Last 24 Hours (Table) 01/19/23 21:10 Anaerobic Culture - Final Peritoneal Fluid 01/22/23 09:45 Gram Stain - Preliminary [facility] Body Fluid Culture - Preliminary Assessment and Plan Assessment: 1. Acute kidney injury, ischemic ATN currently nonoliguric. No renal abnormalities mentioned on CT. UA shows WBCs 33, 2+ protein no blood. Urine output has improved and serum creatinine continues to improve. 2. Septic shock associated with ischemic bowel 3. Lactic acidosis and anion gap metabolic acidosis associated with ischemic b owel septic shock and acute kidney injury 4. Hyponatremia associated with hypotonic fluid with acute kidney injury 5. Acute hypoxic respiratory failure, status post extubation 6. Hypokalemia associated with post-ATN diuresis, being replaced Plan: Replace potassium Maintained on TPN Repeat labs in a.m.
[2023-01-25] MEDS: SODIUM CHLORIDE 0.9% 1,000 ML IV SCH (11:08)
[2023-01-25] MEDS: POTASSIUM CHLORIDE 20 MEQ in WATER FOR INJECTION 1 100ML.BAG IVPB SCH ×2 (11:08→13:07)
[2023-01-25 12:08] LABS: Glucose,Whole Blood 461 mg/dL (70-110)
[2023-01-25] MEDS ORDERED: CYCLOBENZAPRINE 10 MG TAB PO PRN (13:15)
[2023-01-25] MEDS: 1: MVI, ADULT NO.4 WITH VIT K 10 ML, TRACE (CONC-1ML/DOSE) 1 ML, SODIUM ACETATE 30 MEQ, IV SCH ×7 (13:48)
[2023-01-25] MEDS: ONDANSETRON 4 MG/2 ML VIAL IVP PRN (14:23)
--- NOTE | 2023-01-25 14:29 | P.PN ---
Subjective Progress Note Date: 01/25/23 CHIEF COMPLAINT: Acute abdomen with ischemic bowel HISTORY OF PRESENT ILLNESS: Postop day #6 status post exploratory laparotomy with total abdominal colectomy and end ileostomy, lysis of adhesions. Patient remains in the ICU. She is more awake and alert today. She did pass her swallow eval. She will be started on dysphagia chopped diet. Her ostomy is functioning. NG tube discontinued this morning. Urine output has been adequate. YASMINE drain with serous sanguinous output. Afebrile. WBC is 11 Hgb 9.6 platelets 206 725 potassium is 3 creatinine 2.07 PHYSICAL EXAM: VITAL SIGNS: Reviewed GENERAL: Well-developed in no acute distress. HEENT: No sclera icterus. Extraocular movements grossly intact. Moist buccal mucosa. Head is atraumatic, normocephalic. Hears conversational speech. No nasal drainage. NECK: Supple without lymphadenopathy. CHEST: Non-labored respirations and equal bilateral excursions. CARDIOVASCULAR: Palpable 2+ radial pulses. ABDOMEN: Soft. Nondistended. Prevana wound vac in place. YASMINE drain with serosanguineous output. Ileostomy with stool MUSCULOSKELETAL: No clubbing or cyanosis. NEUROLOGIC: Patient intubated and sedated PSYCH: Appropriate affect. Alert and oriented to person, place and time. SKIN: Well perfused. Good skin turgor. ASSESSMENT: 1. Acute abdomen with ischemic bowel 2. Hypertensive heart disease with congestive heart failure 3. Morbid obesity due to excess calories, BMI over 34.8 4. Acute renal failure due to dehydration 5. History of lower extremity amputee 6. Chronic obstructive pulmonary disease 7. Diabetes type 2, insulin-dependent with diabetic nephropathy 8. Gastroesophageal reflux disease 9. Hypotension due to hypovolemia 10. Lactic acidosis 11. Septic shock due to bowel 12. Status post total abdominal colectomy PLAN: -Continue ICU management -Continue supportive care -Continue antibiotics -Follow up on fluid from YASMINE pending -Consult PT OT -Resume home pain medications -Potassium being replaced -GI prophylaxis Protonix and DVT prophylaxis Lovenox Physician Assistant Professor Of Nursing note has been reviewed by physician. Signing provider agrees with the documented findings, assessment, and plan of care. Objective - Vital Signs Vital signs: Vital Signs Temp 98.8 F 01/25/23 08:00 Pulse 112 H 01/25/23 10:15 Resp 16 01/25/23 10:15 BP 129/57 01/24/23 17:00 Pulse Ox 94 L 01/25/23 10:15 FiO2 30 01/23/23 11:04 Intake & Output 01/24/23 01/25/23 01/25/23 18:59 06:59 18:59 Intake Total 1416 772.2 600.533 Output Total 4110 2555 1550 Balance -2694 -1782.8 -949.467 Weight 87.7 kg Intake: IV 316 636 192 ACETAMINOPHEN IV (For NPO 200 100 100 ) 1,000 mg In Empty Bag 1 bag @ 400 mls/hr IVPB Q6H [facility] Rx#:[id number] Sodium Acetate 30 meq 280 Potassium Chloride 20 meq Calcium Gluconate 1 gm Magnesium Sulfate gm 1 gm In Amino Acid 4.25%-D10w 1,000 ml @ 70 mls/hr IV .BY DURATION [facility] Rx#: [id number] Sodium Chloride 0.9% 1, 220 80 000 ml @ 20 mls/hr IV . Q24H [facility] Rx#:[id number] ns 80 pressure bag 36 36 12 Intake, IV Titration 1100 136.2 408.533 Amount Clevidipine Butyrate 25 46.2 98.533 mg In Empty Bag 1 bag @ 1 MG/HR 2 mls/hr IV .Q24H [facility] Rx#:[id number] Mvi, Adult No.4 with Vit 210 K 10 ml Trace (Conc-1Ml/ Dose) 1 ml Sodium Acetate 34 meq Potassium Chloride 20 meq Calcium Gluconate 1 gm Magnesium Sulfate gm 1.5 gm Potassium Phosphate 6 mmol In Amino Acid 4.25%- D10w 1,000 ml @ 70 mls/hr IV .BY DURATION [facility] Rx#: [id number] Piperacillin-Tazobactam 3 100 .375 gm In Sodium Chloride 0.9% 100 ml @ 25 mls/hr IVPB Q12H [facility] Rx# :[id number] Potassium Chloride 20 meq 100 In Water For Injection 1 100ml.bag @ 50 mls/hr IVPB ONCE [facility] Rx#: [id number] Sodium Acetate 30 meq 840 70 Potassium Chloride 20 meq Calcium Gluconate 1 gm Magnesium Sulfate gm 1 gm In Amino Acid 4.25%-D10w 1,000 ml @ 70 mls/hr IV .BY DURATION [facility] Rx#: [id number] Sodium Chloride 0.9% 1, 160 20 000 ml @ 20 mls/hr IV . Q24H [facility] Rx#:[id number] Output: Gastric Drainage 100 Drainage 60 Left Lower Abdomen 60 Medial Abdomen 0 Urine 3950 2555 1550 Other: Voiding Method Indwelling Catheter Indwelling Catheter Indwelling Catheter ABP, PAP, CO, CI - Last Documented Arterial Blood Pressure 167/47 - Labs CBC & Chem 7: 01/25/23 04:56 01/25/23 04:56 Labs: Abnormal Lab Results - Last 24 Hours (Table) 01/24/23 01/24/23 01/25/23 Range/Units 11:41 17:55 00:18 WBC (3.8-10.6) k/uL RBC (3.80-5.40) m/uL Hgb (11.4-16.0) gm/dL Hct (34.0-46.0) % Sodium (137-145) mmol/L Potassium (3.5-5.1) mmol/L Carbon Dioxide (22-30) mmol/L BUN (7-17) mg/dL Creatinine (0.52-1.04) mg/dL Glucose (74-99) mg/dL POC Glucose (mg/dL) 266 H 265 H 290 H (70-110) mg/dL Calcium (8.4-10.2) mg/dL AST (14-36) U/L Alkaline Phosphatase (38-126) U/L Total Protein (6.3-8.2) g/dL Albumin (3.5-5.0) g/dL 01/25/23 01/25/23 01/25/23 Range/Units 04:56 04:56 06:38 WBC 11.0 H (3.8-10.6) k/uL RBC 3.18 L (3.80-5.40) m/uL Hgb 9.6 L (11.4-16.0) gm/dL Hct 29.6 L (34.0-46.0) % Sodium 135 L (137-145) mmol/L Potassium 3.0 L (3.5-5.1) mmol/L Carbon Dioxide 21 L (22-30) mmol/L BUN 48 H (7-17) mg/dL Creatinine 2.07 H (0.52-1.04) mg/dL Glucose 332 H (74-99) mg/dL POC Glucose (mg/dL) 380 H (70-110) mg/dL Calcium 7.8 L (8.4-10.2) mg/dL AST 72 H (14-36) U/L Alkaline Phosphatase 175 H (38-126) U/L Total Protein 5.3 L (6.3-8.2) g/dL Albumin 2.7 L (3.5-5.0) g/dL Microbiology - Last 24 Hours (Table) 01/19/23 21:10 Anaerobic Culture - Final Peritoneal Fluid 01/22/23 09:45 Gram Stain - Preliminary [facility] Body Fluid Culture - Preliminary
[2023-01-25] MEDS: HYDROcodone/APAP 10-325MG 1 EACH TAB PO PRN ×2 (14:44→21:48)
--- NOTE | 2023-01-25 15:07 | P.PN ---
Subjective Progress Note Date: 01/25/23 Principal diagnosis: Ischemic colitis patient is a 67-year-old female with a past medical history significant for type 2 diabetes mellitus COPD morbid obesity did have a history of right below the knee amputation and left big toe amputation history of smoking presenting to the hospital with a 2-week history of abdominal pain , patient has been diagnosed with ischemic colitis in this patient with status post subtotal colectomy and ileostomy. Patient has been extubated as of 01/23/2023 On today's evaluation that is 01/25/2023, the patient continues to be afebrile, patient is breathing comfortably on 2 L nasal cannula oxygen patient did have output in her ileostomy bag , has been started on some soft diet with the patient has been tolerating and NG has been discontinued Objective - Vital Signs Vital signs: Vital Signs Temp 98.8 F 01/25/23 08:00 Pulse 112 H 01/25/23 11:00 Resp 23 01/25/23 11:00 BP 129/57 01/24/23 17:00 Pulse Ox 94 L 01/25/23 11:00 FiO2 30 01/23/23 11:04 Intake & Output 01/24/23 01/25/23 01/25/23 18:59 06:59 18:59 Intake Total 1416 772.2 986.533 Output Total 4110 2555 2305 Balance -2694 -1782.8 -1318.467 Weight 87.7 kg Intake: IV 316 636 238 ACETAMINOPHEN IV (For NPO 200 100 100 ) 1,000 mg In Empty Bag 1 bag @ 400 mls/hr IVPB Q6H [facility] Rx#:[id number] Sodium Acetate 30 meq 280 Potassium Chloride 20 meq Calcium Gluconate 1 gm Magnesium Sulfate gm 1 gm In Amino Acid 4.25%-D10w 1,000 ml @ 70 mls/hr IV .BY DURATION [facility] Rx#: [id number] Sodium Chloride 0.9% 1, 220 120 000 ml @ 20 mls/hr IV . Q24H [facility] Rx#:[id number] ns 80 pressure bag 36 36 18 Intake, IV Titration 1100 136.2 748.533 Amount Clevidipine Butyrate 25 46.2 98.533 mg In Empty Bag 1 bag @ 1 MG/HR 2 mls/hr IV .Q24H [facility] Rx#:[id number] Mvi, Adult No.4 with Vit 350 K 10 ml Trace (Conc-1Ml/ Dose) 1 ml Sodium Acetate 34 meq Potassium Chloride 20 meq Calcium Gluconate 1 gm Magnesium Sulfate gm 1.5 gm Potassium Phosphate 6 mmol In Amino Acid 4.25%- D10w 1,000 ml @ 70 mls/hr IV .BY DURATION [facility] Rx#: [id number] Piperacillin-Tazobactam 3 100 100 .375 gm In Sodium Chloride 0.9% 100 ml @ 25 mls/hr IVPB Q12H [facility] Rx# :[id number] Potassium Chloride 20 meq 100 In Water For Injection 1 100ml.bag @ 50 mls/hr IVPB ONCE [facility] Rx#: [id number] Potassium Chloride 20 meq 100 In Water For Injection 1 100ml.bag @ 50 mls/hr IVPB Q2H [facility] Rx#: [id number] Sodium Acetate 30 meq 840 70 Potassium Chloride 20 meq Calcium Gluconate 1 gm Magnesium Sulfate gm 1 gm In Amino Acid 4.25%-D10w 1,000 ml @ 70 mls/hr IV .BY DURATION [facility] Rx#: [id number] Sodium Chloride 0.9% 1, 160 20 000 ml @ 20 mls/hr IV . Q24H [facility] Rx#:[id number] Output: Gastric Drainage 100 Drainage 60 30 Left Lower Abdomen 60 30 Medial Abdomen 0 Urine 3950 2555 2275 Other: Voiding Method Indwelling Catheter Indwelling Catheter Indwelling Catheter ABP, PAP, CO, CI - Last Documented Arterial Blood Pressure 162/44 - Exam GENERAL DESCRIPTION: An elderly female lying in bed in no distress RESPIRATORY SYSTEM: Unlabored breathing , decreased breath sounds at bases HEART: S1 S2 regular rate and rhythm , ABDOMEN: Soft , midline incision is intact EXTREMITIES: Right BK stump incision is healed - Labs CBC & Chem 7: 01/25/23 04:56 01/25/23 04:56 Labs: Abnormal Lab Results - Last 24 Hours (Table) 01/24/23 01/25/23 01/25/23 Range/Units 17:55 00:18 04:56 WBC (3.8-10.6) k/uL RBC (3.80-5.40) m/uL Hgb (11.4-16.0) gm/dL Hct (34.0-46.0) % Sodium 135 L (137-145) mmol/L Potassium 3.0 L (3.5-5.1) mmol/L Carbon Dioxide 21 L (22-30) mmol/L BUN 48 H (7-17) mg/dL Creatinine 2.07 H (0.52-1.04) mg/dL Glucose 332 H (74-99) mg/dL POC Glucose (mg/dL) 265 H 290 H (70-110) mg/dL Calcium 7.8 L (8.4-10.2) mg/dL AST 72 H (14-36) U/L Alkaline Phosphatase 175 H (38-126) U/L Total Protein 5.3 L (6.3-8.2) g/dL Albumin 2.7 L (3.5-5.0) g/dL 01/25/23 01/25/23 01/25/23 Range/Units 04:56 06:38 12:05 WBC 11.0 H (3.8-10.6) k/uL RBC 3.18 L (3.80-5.40) m/uL Hgb 9.6 L (11.4-16.0) gm/dL Hct 29.6 L (34.0-46.0) % Sodium (137-145) mmol/L Potassium (3.5-5.1) mmol/L Carbon Dioxide (22-30) mmol/L BUN (7-17) mg/dL Creatinine (0.52-1.04) mg/dL Glucose (74-99) mg/dL POC Glucose (mg/dL) 380 H 461 H (70-110) mg/dL Calcium (8.4-10.2) mg/dL AST (14-36) U/L Alkaline Phosphatase (38-126) U/L Total Protein (6.3-8.2) g/dL Albumin (3.5-5.0) g/dL Microbiology - Last 24 Hours (Table) 01/22/23 09:45 Gram Stain - Preliminary [facility] Body Fluid Culture - Preliminary 01/19/23 21:10 Anaerobic Culture - Final Peritoneal Fluid Assessment and Plan (1) Ischemic colitis Current Visit: Yes Status: Acute Code(s): K55.9 - VASCULAR DISORDER OF INTESTINE, UNSPECIFIED SNOMED Code(s): 74454398 (2) Sepsis Current Visit: No Status: Acute Code(s): A41.9 - SEPSIS, UNSPECIFIED ORGANISM SNOMED Code(s): 97033861 Plan: 1patient presented to hospital abdominal pain has been diagnosed with ischemic colitis in this patient infusion of septic shock with low-grade fever tachycardia elevated white count elevated lactic acid source being ischemic large bowel status post subtotal colectomy and end ileostomy we will need to cover for the enteric gram-negative both aerobes and anaerobes abdominal culture, which are so far pending 2-patient white count today is 11,000, patient seemed to showing clinical improvement and will continue Zosyn 3.375 g every 8 hours and continue with supportive care Time with Patient: Less than 30
[2023-01-25] MEDS: GABAPENTIN 400 MG CAP PO SCH ×2 (16:20→21:49)
[2023-01-25 16:57] LABS: Glucose,Whole Blood 478 mg/dL (70-110)
[2023-01-25] MEDS ORDERED: INSULIN ASPART (NovoLOG) 100 UNIT/ML VIAL SQ ONE (17:15)
[2023-01-25] MEDS: NOREPINEPHRINE 4 MG in SODIUM CHLORIDE 0.9% 250 ML IV SCH (21:50)
[2023-01-26] MEDS: CLEVIDIPINE BUTYRATE 25 MG in EMPTY BAG 1 BAG IV SCH ×2 (00:19→05:43)
[2023-01-26 00:42] LABS: Glucose,Whole Blood 426 mg/dL (70-110)
[2023-01-26] MEDS: PIPERACILLIN-TAZOBACTAM 3.375 GM in SODIUM CHLORIDE 0.9% 100 ML IVPB SCH ×2 (00:54→11:32)
[2023-01-26] MEDS ORDERED: INSULIN ASPART (NovoLOG) 100 UNIT/ML VIAL SQ ONE (01:14)
[2023-01-26] MEDS: INSULIN ASPART (NovoLOG) 100 UNIT/ML VIAL SQ SCH ×4 (01:24→17:05)
[2023-01-26] MEDS ORDERED: INSULIN DETEMIR (LEVEMIR) 100 UNIT/ML SYR SQ ONE (01:30)
[2023-01-26] MEDS: HYDROmorphone 1 MG/ML 1 ML SYRINGE IVP PRN ×3 (02:45→16:02)
[2023-01-26 04:02] LABS: Magnesium 1.7 mg/dL (1.6-2.3); Phosphorus 1.8 mg/dL (2.5-4.5); Potassium 3.2 mmol/L (3.5-5.1)
[2023-01-26 04:21] LABS: HCT 28.5 % (34.0-46.0); HGB 9.3 gm/dL (11.4-16.0); MCHC 32.7 g/dL (31.0-37.0); MCV 91.6 fL (80.0-100.0); Mean Platelet Volume 7.6; Platelet Count 224 k/uL (150-450); RBC 3.11 m/uL (3.80-5.40); RDW 14.6 % (11.5-15.5); WBC 11.3 k/uL (3.8-10.6)
[2023-01-26] MEDS: ACETAMINOPHEN IV (For NPO) 1,000 MG in EMPTY BAG 1 BAG IVPB SCH ×4 (04:28→20:01)
[2023-01-26] MEDS ORDERED: MAGNESIUM SULFATE-D5W PMX 1 GM in DEXTROSE/WATER 1 100ML.BAG IVPB ONE (04:57)
[2023-01-26 05:30] LABS: Glucose,Whole Blood 284 mg/dL (70-110)
[2023-01-26] MEDS: POTASSIUM BICARBONATE/CIT AC 20 MEQ TABLET.EFF NG-TUBE SCH ×2 (05:35→06:50)
[2023-01-26 05:50] LABS: Band Neutrophils % 4 %; Eosinophils # (M) 0.68 k/uL (0-0.7); Lymphocytes # (M) 2.37 k/uL (1.0-4.8); Monocytes # (M) 1.13 k/uL (0-1.0); Neutrophils % (M) 59 %; Nucleated Red Blood Cells 0 /100 WBC (0-0); Total Cells Counted 100
[2023-01-26 06:27] LABS: Glucose,Whole Blood 315 mg/dL (70-110)
[2023-01-26] MEDS: HYDROcodone/APAP 10-325MG 1 EACH TAB PO PRN ×3 (06:54→20:12)
[2023-01-26] MEDS: PANTOPRAZOLE 40 MG/10 ML VIAL IV SCH (08:52)
[2023-01-26] MEDS: ENOXAPARIN 30 MG/0.3 ML SYRINGE SQ SCH (08:53)
[2023-01-26] MEDS: GABAPENTIN 400 MG CAP PO SCH ×3 (08:53→20:11)
--- NOTE | 2023-01-26 08:57 | P.PN ---
Subjective Principal diagnosis: Ischemic colitis Patient is a 67-year-old white female with known history of COPD and tobacco use who is essentially admitted for ischemic bowel. The patient is now intubated and under appropriate consultants control. The patient is now extubated. Blood pressure stable. We are slowly reintroducing basal insulin. Objective - Vital Signs Vital signs: Vital Signs Temp 98.9 F 01/26/23 04:00 Pulse 89 01/26/23 07:30 Resp 19 01/26/23 07:30 BP 138/57 01/25/23 13:15 Pulse Ox 95 01/26/23 07:30 FiO2 30 01/23/23 11:04 Intake & Output 01/25/23 01/26/23 01/26/23 18:59 06:59 18:59 Intake Total 2098.800 3361.834 5.133 Output Total 4430 1745 Balance -2331.200 1616.834 5.133 Intake: IV 726 1209 ACETAMINOPHEN IV (For NPO 100 ) 1,000 mg In Empty Bag 1 bag @ 400 mls/hr IVPB Q6H [facility] Rx#:[id number] Sodium Chloride 0.9% 1, 240 260 000 ml @ 20 mls/hr IV . Q24H [facility] Rx#:[id number] TPN 350 910 pressure bag 36 39 Intake, IV Titration 4035.029 8604.834 5.133 Amount Clevidipine Butyrate 25 192.800 127.334 5.133 mg In Empty Bag 1 bag @ 1 MG/HR 2 mls/hr IV .Q24H [facility] Rx#:[id number] Mvi, Adult No.4 with Vit 420 K 10 ml Trace (Conc-1Ml/ Dose) 1 ml Sodium Acetate 34 meq Potassium Chloride 20 meq Calcium Gluconate 1 gm Magnesium Sulfate gm 1.5 gm Potassium Phosphate 6 mmol In Amino Acid 4.25%- D10w 1,000 ml @ 70 mls/hr IV .BY DURATION [facility] Rx#: [id number] Piperacillin-Tazobactam 3 100 .375 gm In Sodium Chloride 0.9% 100 ml @ 25 mls/hr IVPB Q12H [facility] Rx# :[id number] Potassium Chloride 20 meq 100 In Water For Injection 1 100ml.bag @ 50 mls/hr IVPB ONCE [facility] Rx#: [id number] Potassium Chloride 20 meq 200 In Water For Injection 1 100ml.bag @ 50 mls/hr IVPB Q2H [facility] Rx#: [id number] Sodium Acetate 34 meq 1025.5 Potassium Chloride 20 meq Calcium Gluconate 1 gm Magnesium Sulfate gm 1.5 gm Potassium Phosphate 6 mmol In Amino Acid 4.25%- D10w 1,000 ml @ 70 mls/hr IV .BY DURATION [facility] Rx#: [id number] Oral 360 1000 Output: Drainage 30 65 Left Lower Abdomen 30 65 Urine 4400 1680 Other: Voiding Method Indwelling Catheter Indwelling Catheter ABP, PAP, CO, CI - Last Documented Arterial Blood Pressure 136/46 - Constitutional General appearance: Present: average body habitus - EENT Eyes: Absent: abnormal pupil - Neck Neck: Absent: lymphadenopathy - Respiratory Respiratory: bilateral: CTA - Cardiovascular Rhythm: regular Heart sounds: normal: S1, S2 Abnormal Heart Sounds: Absent: S3 Gallop - Gastrointestinal General gastrointestinal: Present: soft. Absent: tenderness - Integumentary Integumentary: Absent: cellulitis - Labs CBC & Chem 7: 01/26/23 03:34 01/26/23 03:34 Labs: Abnormal Lab Results - Last 24 Hours (Table) 01/25/23 01/25/23 01/26/23 Range/Units 12:05 16:56 00:39 WBC (3.8-10.6) k/uL RBC (3.80-5.40) m/uL Hgb (11.4-16.0) gm/dL Hct (34.0-46.0) % Monocytes # (Manual) (0-1.0) k/uL Sodium (137-145) mmol/L Potassium (3.5-5.1) mmol/L BUN (7-17) mg/dL Creatinine (0.52-1.04) mg/dL Glucose (74-99) mg/dL POC Glucose (mg/dL) 461 H 478 H 426 H (70-110) mg/dL Calcium (8.4-10.2) mg/dL Phosphorus (2.5-4.5) mg/dL 01/26/23 01/26/23 01/26/23 Range/Units 03:34 03:34 05:28 WBC 11.3 H (3.8-10.6) k/uL RBC 3.11 L (3.80-5.40) m/uL Hgb 9.3 L (11.4-16.0) gm/dL Hct 28.5 L (34.0-46.0) % Monocytes # (Manual) 1.13 H (0-1.0) k/uL Sodium 132 L (137-145) mmol/L Potassium 3.2 L (3.5-5.1) mmol/L BUN 39 H (7-17) mg/dL Creatinine 1.47 H (0.52-1.04) mg/dL Glucose 318 H (74-99) mg/dL POC Glucose (mg/dL) 284 H (70-110) mg/dL Calcium 8.0 L (8.4-10.2) mg/dL Phosphorus 1.8 L (2.5-4.5) mg/dL 01/26/23 Range/Units 06:26 WBC (3.8-10.6) k/uL RBC (3.80-5.40) m/uL Hgb (11.4-16.0) gm/dL Hct (34.0-46.0) % Monocytes # (Manual) (0-1.0) k/uL Sodium (137-145) mmol/L Potassium (3.5-5.1) mmol/L BUN (7-17) mg/dL Creatinine (0.52-1.04) mg/dL Glucose (74-99) mg/dL POC Glucose (mg/dL) 315 H (70-110) mg/dL Calcium (8.4-10.2) mg/dL Phosphorus (2.5-4.5) mg/dL Microbiology - Last 24 Hours (Table) 01/22/23 09:45 Gram Stain - Final [facility] Body Fluid Culture - Final Assessment and Plan (1) Ischemic bowel disease Current Visit: Yes Status: Acute Code(s): K55.9 - VASCULAR DISORDER OF INTESTINE, UNSPECIFIED SNOMED Code(s): 51440368 (2) Ischemic colitis Current Visit: Yes Status: Acute Code(s): K55.9 - VASCULAR DISORDER OF INTESTINE, UNSPECIFIED SNOMED Code(s): 28067316 (3) COPD (chronic obstructive pulmonary disease) Current Visit: No Status: Acute Code(s): J44.9 - CHRONIC OBSTRUCTIVE PULMONARY DISEASE, UNSPECIFIED SNOMED Code(s): 65149086 (4) History of below-knee amputation of right lower extremity Current Visit: No Status: Acute Code(s): Z89.511 - ACQUIRED ABSENCE OF RIGHT LEG BELOW KNEE SNOMED Code(s): 544564909612331 (5) Opioid dependence Current Visit: No Status: Acute Code(s): F11.20 - OPIOID DEPENDENCE, UNCOMPLICATED SNOMED Code(s): 62293200 (6) Type 2 diabetes mellitus Current Visit: No Status: Acute Code(s): E11.9 - TYPE 2 DIABETES MELLITUS WITHOUT COMPLICATIONS SNOMED Code(s): 06571949 Plan: Continue to follow during his ICU management. The patient is now extubated Prognosis is guarded. Check CBC and CMP in a.m. Appreciate multiple consultants input Anticipate slow recovery Dietary for appropriate feeding. Hemodynamically stable
[2023-01-26] MEDS: IPRATROPIUM-ALBUTEROL 3 ML NEB INHALATION SCH ×4 (08:59→20:23)
[2023-01-26] MEDS: INSULIN DETEMIR (LEVEMIR) 100 UNIT/ML SYR SQ SCH ×2 (09:18→20:12)
[2023-01-26 09:19] LABS: Glucose,Whole Blood 238 mg/dL (70-110)
--- NOTE | 2023-01-26 09:29 | P.PN ---
Subjective Progress Note Date: 01/26/23 67-year-old female patient is being seen in follow-up on 01/22/2023. A complicated case of abdominal distention, stooling infection requiring surgical intervention along with multiple medical problems and comorbidities P she initially presented to us with abdominal pain and she has not had a bowel mov ement for more than a week. She had significant abdominal distention. She was taken to the operating room and the patient underwent laparotomy, lysis of adhesions, total colectomy, ileostomy and the patient is currently postop day #3. She has been intubated and kept on a mechanical ventilator since. For now, the patient is still on a mechanical ventilator. She is a propofol which is running at 35 mcg/kg/m and she is adequately sedated and symptoms mechanical ventilator. She is on assist-control mode of mechanical ventilation at the rate of 24 with a rate of 24, tidal volume of 400, FiO2 of 30% and a PEEP of 5. Chest x-ray shows cardiomegaly. Some limited infiltrates in the left lung base and the right lower lobe lateral segment. Orotracheal tube is in a good location. The patient also has a triple-lumen catheter in the left subclavian. NG tube is also in good location. For now, the output from the NG tube is minimal. Her IV fluids are running at a rate of 75 mL an hour and the fluid is in the form of a bicarb infusion. She is on no pressors at this point in time in the urine output is in order of 5200 mL an hour. In terms of her electrolytes, the patient's sodium level has been dropping and it's down to 129. BUN is at 40 with a creatinine of 3.47 and a potassium level is at 4.2. Her serum bicarb is improved. She was as low as 13 and she is currently up to 20. Nevertheless, she is developing an acute kidney injury. Her creatinine at time of admission was 1.8 from a normal baseline. She has developed that he worsening of renal function the creatinine is up to 3.47. CAT scan of the abdomen and the pelvis that was done on 01/19/2023 showed no evidence of any hydronephrosis he had she had pancolonic distention with cecum dilatation which was up to 9.4 cm in size. At the same time, her white cell count has dropped down to 17.9 from as high as 25. Hemoglobin is stable at 9.2 and a platelet count is at 159. In terms of cultures, sputum culture has been negative. Abdominal wound cultures were taken and that is also still pending for now and the patient is covered with IV Zosyn. She is afebrile. She is having episodes of low-grade fever. She is on IV Tylenol. She remains hemodynamically stable. The patient remains nothing by mouth for now. The patient has a YASMINE drain located in the left lower quadrant and the output is in order of 200 mL over the past 8 hours. The output is serosanguineous. Her lactic acid level dropped from 7.3 down to 1.8. Blood sugars under adequate control and the patient is taking NovoLog insulin sliding scale coverage. She takes Lantus 55 units twice a day at home. She is also on a combination of Seroquel and Topamax and Prozac at home. Today's evaluation of 01/23/2023, the patient remains intubated on a mechanical ventilator. This morning, the patient is on assist control mode at the rate of 24 with a tidal volume of 400 and FiO2 of 30% with a PEEP of 5. The patient is on propofol running at 30 mcg/kg/m and the patient is adequately sedated at this point in time. PH is at 7.4 with a pCO2 of 40 and pO2 111. The peak airway pressure is 16. Chest x-ray shows no acute abnormalities. No significant orotracheal secretions. She does have some facial and scleral edema which is very much concerning the nursing staff. The patient is afebrile. The patient is hemodynamically stable and she is on no pressors. She is producing adequate amount of urine output. Creatinine is stable compared to yesterday and the level is at 3.4 with a BUN of 39 and a sodium level is at 1:30. Her white cell count is down to 12.8. LFTs are essentially within normal limits. The patient remains on TPN for nutritional support. Some limited activity and stool making was seen in her ileostomy bag. Surgical one-sided dry clean and intact. No signs of any significant volume overload. The patient has been in a possible fluid balance over the past 4 days at least. The patient was taken off the bicarb infusion and the patient is currently on normal saline at rate of 75 mL an hour. She is postop day #4 following a total colectomy and ileostomy. Orogastric tube remains in place with limited output. No other significant events otherwise for now. She is in with intermittent stable. Cardiac rhythm is sinus. On today's evaluation of 01/24/2023, the patient is postop day #5. The patient was weaned off the mechanical ventilator and the patient was extubated yesterday without having any major difficulties. Currently she is Breathing comfortably and she is currently on oxygen at 2 L nasal cannula. NG tube is still in place. No significant cough or sputum production. No significant respiratory distress. Output from the NG has been minimal. Ileostomy is functional and there is some brownish material collecting an ileostomy bag. Bowel sounds remain hypoactive. The patient is still profoundly weak. She has not been started on any form of feeding for the time being. She is hemodynamically stable. Urine output is adequate. TPN is still running for nutritional support. Blood work from today shows a white cell count of 9.3 with a hemoglobin of 9 and a platelet count of 163. Sodium is at 134, BUN is 45 with a creatinine of 2.7 and a patient's creatinine is essentially improving and is dropping on a daily basis. Potassium levels at 4, serum bicarb is 26. Calcium level is at 7.5. LFTs are normal with an albumin level of 2.5. Triglycerides were elevated at 502 and this is probably related to the propofol infusion at the patient was receiving. She is currently off propofol. She has on Lovenox 30 mg subcu for DVT prophylaxis. She is on IV Zosyn. IV fluids are in the form of normal saline at 20 mL an hour. Cardiac rhythm is still sinus. Having difficulties in performing the incentive spirometer at the patient is still white lethargic. Pulse ox is 97% 01/25/2023, the patient is postoperative day #6. She remains extubated and she is on oxygen at 2 L. NG tube is in place and a swallow evaluation to be done today. She remains on TPN. Angiopathy has been in the order of 200 mL of gastric juice over the past 24 hours. Meanwhile, her ileostomy is functioning. The wound over the abdomen is clean. The patient has a YASMINE drain in her left lower quadrant and output is serosanguineous and minimal. She is resting comfortably , and she is moving all 4 extremities. The patient is moving all 4 extremities. No focal neurological deficits. She is slow in answering questions. He had she is aware that she is in the hospital and she was able to tell me her name and following simple commands. No focal neurological deficit at this point in time. Her blood pressure was quite elevated and based on that the patient was started on Cleviprex Drip which is running at the rate of 8 mg an hour. Her sodium level is at 135 with a potassium level of 3 that needs to be replaced and a serum bicarb of 21. Creatinine is down to 2.07. White cell count is 11 with a hemoglobin of 9.6 and a platelet count of 206. The patient is on Lovenox for DVT prophylaxis and insulin sliding scale coverage. She remains on IV Zosyn. On 01/26/2023, the patient is postop day #7. She remains on oxygen at 2 L/m nasal cannula. She is still on TPN for nutritional support. At the same time the patient was given soft and chopped diet with one-to-one supervision. She is able to swallow. She is not meeting her requirements. NG tube was removed yesterday. Ileostomy is functional and there is positive output. She has no specific complaints. She is communicating at this point in time. She is hemodynamically stable. She is off the Cleviprex drip. She is on insulin signs good coverage and she is also on IV Zosyn.Blood work today shows a WD skeletal 11.3, hemoglobin 9.3 and a platelet count of 224. Sodium is at 132 with a potassium level of 3.2, BUN is 39 and the creatinine is 1.47. Sugar is 238. The patient is on Levemir insulin 30 units twice a day and she also taken a slight scale coverage. IV fluids and the form of normal saline at rate of 20 mL an hour. She is on Lovenox 30 mg subcu for DVT prophylaxis. The output from the YASMINE drain is serosanguineous and in the order of 70 mL overnight. Objective - Vital Signs Vital signs: Vital Signs Temp 98.4 F 01/26/23 08:00 Pulse 90 01/26/23 09:13 Resp 20 01/26/23 09:00 BP 138/57 01/25/23 13:15 Pulse Ox 96 01/26/23 09:01 FiO2 30 01/23/23 11:04 Intake & Output 01/25/23 01/26/23 01/26/23 18:59 06:59 18:59 Intake Total 2098.800 3361.834 191.133 Output Total 4430 1745 125 Balance -2331.200 1616.834 66.133 Intake: IV 726 1209 186 ACETAMINOPHEN IV (For NPO 100 ) 1,000 mg In Empty Bag 1 bag @ 400 mls/hr IVPB Q6H [facility] Rx#:[id number] Sodium Chloride 0.9% 1, 240 260 40 000 ml @ 20 mls/hr IV . Q24H [facility] Rx#:[id number] TPN 350 910 140 pressure bag 36 39 6 Intake, IV Titration 6835.608 7788.834 5.133 Amount Clevidipine Butyrate 25 192.800 127.334 5.133 mg In Empty Bag 1 bag @ 1 MG/HR 2 mls/hr IV .Q24H [facility] Rx#:[id number] Mvi, Adult No.4 with Vit 420 K 10 ml Trace (Conc-1Ml/ Dose) 1 ml Sodium Acetate 34 meq Potassium Chloride 20 meq Calcium Gluconate 1 gm Magnesium Sulfate gm 1.5 gm Potassium Phosphate 6 mmol In Amino Acid 4.25%- D10w 1,000 ml @ 70 mls/hr IV .BY DURATION [facility] Rx#: [id number] Piperacillin-Tazobactam 3 100 .375 gm In Sodium Chloride 0.9% 100 ml @ 25 mls/hr IVPB Q12H [facility] Rx# :[id number] Potassium Chloride 20 meq 100 In Water For Injection 1 100ml.bag @ 50 mls/hr IVPB ONCE [facility] Rx#: [id number] Potassium Chloride 20 meq 200 In Water For Injection 1 100ml.bag @ 50 mls/hr IVPB Q2H [facility] Rx#: [id number] Sodium Acetate 34 meq 1025.5 Potassium Chloride 20 meq Calcium Gluconate 1 gm Magnesium Sulfate gm 1.5 gm Potassium Phosphate 6 mmol In Amino Acid 4.25%- D10w 1,000 ml @ 70 mls/hr IV .BY DURATION [facility] Rx#: [id number] Oral 360 1000 Output: Drainage 30 65 Left Lower Abdomen 30 65 Urine 4400 1680 125 Other: Voiding Method Indwelling Catheter Indwelling Catheter ABP, PAP, CO, CI - Last Documented Arterial Blood Pressure 158/54 - Exam No acute distress, sedated, sedated, weak, still very much lethargic, extubated currently on 2 L of O2 nasal cannula. Breathing is nonlabored, awake and alert and communicating. Head exam was generally normal. There was no scleral icterus or corneal arcus. Mucous membranes were moist. HEENT examination is grossly unremarkable. Neck supple. Full range of motion. No adenopathy thyromegaly or neck vein distention. Cardiovascular examination reveals regular rhythm rate. S1-S2 normal. No S3 or S4. No discernible murmur noted. Heart sounds are distant. Lungs reveal scattered bilateral rhonchi, which are moderate in severity. No wheezes or crackles. Breath sounds are equal bilaterally. Abdomen soft, with ileostomy noted. Diaz-Benítez drains are noted. In the YASMINE drain is in the left lower quadrant. Bowel sounds are hypoactive. No abdominal distention. No significant output through the ileostomy at this point in time. Extremities are intact. No cyanosis clubbing or edema. The patient has a right below the knee amputation. The patient also has several amputated toes in the left foot. She has diminished pulses in the left lower extremity. No signifi cant edema. No cyanosis. No digital clubbing. The patient has an arterial line in her right radial artery. Skin is without rash or lesion. Neurologic examination , the patient is lethargic and sleepy and arousable. - Labs CBC & Chem 7: 01/26/23 03:34 01/26/23 03:34 Labs: Abnormal Lab Results - Last 24 Hours (Table) 01/25/23 01/25/23 01/26/23 Range/Units 12:05 16:56 00:39 WBC (3.8-10.6) k/uL RBC (3.80-5.40) m/uL Hgb (11.4-16.0) gm/dL Hct (34.0-46.0) % Monocytes # (Manual) (0-1.0) k/uL Sodium (137-145) mmol/L Potassium (3.5-5.1) mmol/L BUN (7-17) mg/dL Creatinine (0.52-1.04) mg/dL Glucose (74-99) mg/dL POC Glucose (mg/dL) 461 H 478 H 426 H (70-110) mg/dL Calcium (8.4-10.2) mg/dL Phosphorus (2.5-4.5) mg/dL 01/26/23 01/26/23 01/26/23 Range/Units 03:34 03:34 05:28 WBC 11.3 H (3.8-10.6) k/uL RBC 3.11 L (3.80-5.40) m/uL Hgb 9.3 L (11.4-16.0) gm/dL Hct 28.5 L (34.0-46.0) % Monocytes # (Manual) 1.13 H (0-1.0) k/uL Sodium 132 L (137-145) mmol/L Potassium 3.2 L (3.5-5.1) mmol/L BUN 39 H (7-17) mg/dL Creatinine 1.47 H (0.52-1.04) mg/dL Glucose 318 H (74-99) mg/dL POC Glucose (mg/dL) 284 H (70-110) mg/dL Calcium 8.0 L (8.4-10.2) mg/dL Phosphorus 1.8 L (2.5-4.5) mg/dL 01/26/23 01/26/23 Range/Units 06:26 09:17 WBC (3.8-10.6) k/uL RBC (3.80-5.40) m/uL Hgb (11.4-16.0) gm/dL Hct (34.0-46.0) % Monocytes # (Manual) (0-1.0) k/uL Sodium (137-145) mmol/L Potassium (3.5-5.1) mmol/L BUN (7-17) mg/dL Creatinine (0.52-1.04) mg/dL Glucose (74-99) mg/dL POC Glucose (mg/dL) 315 H 238 H (70-110) mg/dL Calcium (8.4-10.2) mg/dL Phosphorus (2.5-4.5) mg/dL Microbiology - Last 24 Hours (Table) 01/22/23 09:45 Gram Stain - Final [facility] Body Fluid Culture - Final Assessment and Plan Plan: Severe abdominal distention, abdominal pain, constipation, and severe martinez- colonic distention, status post exploratory laparotomy, lysis of adhesions, total colectomy, ileostomy, abdominal washout, placement of Diaz-Benítez drains, and placement of a wound VAC, postop day #7 , currently nothing by mouth. The patient was given an ileostomy which is n YASMINE drain is in place. Hemodynamically stable on no pressors. Patient has positive output on an ileostomy bag, NG tube is in place with minimal amount of output. Bowel sounds are hypoactive. The patient is taking soft diet and chopped food with one-to-one supervision. The patient remains on TPN for nutritional support. S/P intubation and mechanical ventilation, beginning on January 19, for respiratory failure., The patient was extubated on 01/23/2023 Acute lactic acidemia, with anion gap metabolic acidosis, recovered Non-anion gap metabolic acidosis , recovered and the patient is currently off the bicarb infusion Acute kidney injury , creatinine is improving, creatinine is on a decline Acute leukocytosis, improving Obesity with a BMI of 38.9 Severe peripheral vascular disease with below-knee amputation on the right and several and predated toes on the left History of diabetes mellitus, currently on NovoLog sliding scale coverage History of stress urinary incontinence. History of hypothyroidism. History of hyperlipidemia. History of COPD from ongoing tobacco use. History of depression. hyponatremia, improved and the sodium level is back to normal Plan: Encourage the use of incentive spirometer Advanced oral diet as tolerated Continue TPN and reduce the rate of TPN to half NG tube was removed yesterday Monitor the renal function and avoid any nephrotoxic agents. Renal function continues to improve Continue IV Zosyn increased functionality of the ileostomy No pressors for now Slight scale insulin coverage on the patient is taking Levemir insulin 30 units twice a day Lovenox 30 mg subcu portably prophylaxis Involved physical therapy Condition is critical and we'll continue to follow. She can go to medical surgical floor today. Arterial line will be removed. Work with physical therapy. General surgery is on the case.
[2023-01-26 11:40] LABS: Glucose,Whole Blood 390 mg/dL (70-110)
--- NOTE | 2023-01-26 13:21 | P.PN ---
Subjective Progress Note Date: 01/26/23 Principal diagnosis: Ischemic colitis patient is a 67-year-old female with a past medical history significant for type 2 diabetes mellitus COPD morbid obesity did have a history of right below the knee amputation and left big toe amputation history of smoking presenting to the hospital with a 2-week history of abdominal pain , patient has been diagnosed with ischemic colitis in this patient with status post subtotal colectomy and ileostomy. Patient has been extubated as of 01/23/2023 On today's evaluation that is 01/26/2023, the patient remains to be afebrile, pierre acevedo is breathing comfortably on 2 L nasal cannula oxygen patient did have output in her ileostomy bag , the patient has been tolerating her diet no chest pain shortness breath or cough or abdominal pain Objective - Vital Signs Vital signs: Vital Signs Temp 98.4 F 01/26/23 08:00 Pulse 90 01/26/23 09:13 Resp 20 01/26/23 09:00 BP 138/57 01/25/23 13:15 Pulse Ox 96 01/26/23 09:01 FiO2 30 01/23/23 11:04 Intake & Output 01/25/23 01/26/23 01/26/23 18:59 06:59 18:59 Intake Total 2098.800 3361.834 191.133 Output Total 4430 1745 125 Balance -2331.200 1616.834 66.133 Weight 87.7 kg Intake: IV 726 1209 186 ACETAMINOPHEN IV (For NPO 100 ) 1,000 mg In Empty Bag 1 bag @ 400 mls/hr IVPB Q6H [facility] Rx#:[id number] Sodium Chloride 0.9% 1, 240 260 40 000 ml @ 20 mls/hr IV . Q24H [facility] Rx#:[id number] TPN 350 910 140 pressure bag 36 39 6 Intake, IV Titration 8387.371 2385.834 5.133 Amount Clevidipine Butyrate 25 192.800 127.334 5.133 mg In Empty Bag 1 bag @ 1 MG/HR 2 mls/hr IV .Q24H [facility] Rx#:[id number] Mvi, Adult No.4 with Vit 420 K 10 ml Trace (Conc-1Ml/ Dose) 1 ml Sodium Acetate 34 meq Potassium Chloride 20 meq Calcium Gluconate 1 gm Magnesium Sulfate gm 1.5 gm Potassium Phosphate 6 mmol In Amino Acid 4.25%- D10w 1,000 ml @ 70 mls/hr IV .BY DURATION [facility] Rx#: [id number] Piperacillin-Tazobactam 3 100 .375 gm In Sodium Chloride 0.9% 100 ml @ 25 mls/hr IVPB Q12H [facility] Rx# :[id number] Potassium Chloride 20 meq 100 In Water For Injection 1 100ml.bag @ 50 mls/hr IVPB ONCE [facility] Rx#: [id number] Potassium Chloride 20 meq 200 In Water For Injection 1 100ml.bag @ 50 mls/hr IVPB Q2H [facility] Rx#: [id number] Sodium Acetate 34 meq 1025.5 Potassium Chloride 20 meq Calcium Gluconate 1 gm Magnesium Sulfate gm 1.5 gm Potassium Phosphate 6 mmol In Amino Acid 4.25%- D10w 1,000 ml @ 70 mls/hr IV .BY DURATION [facility] Rx#: [id number] Oral 360 1000 Output: Drainage 30 65 Left Lower Abdomen 30 65 Urine 4400 1680 125 Other: Voiding Method Indwelling Catheter Indwelling Catheter ABP, PAP, CO, CI - Last Documented Arterial Blood Pressure 158/54 - Exam GENERAL DESCRIPTION: An elderly female lying in bed in no distress RESPIRATORY SYSTEM: Unlabored breathing , decreased breath sounds at bases HEART: S1 S2 regular rate and rhythm , ABDOMEN: Soft , midline incision looks clean EXTREMITIES: Right BK stump incision is healed - Labs CBC & Chem 7: 01/26/23 03:34 01/26/23 03:34 Labs: Abnormal Lab Results - Last 24 Hours (Table) 01/25/23 01/25/23 01/26/23 Range/Units 12:05 16:56 00:39 WBC (3.8-10.6) k/uL RBC (3.80-5.40) m/uL Hgb (11.4-16.0) gm/dL Hct (34.0-46.0) % Monocytes # (Manual) (0-1.0) k/uL Sodium (137-145) mmol/L Potassium (3.5-5.1) mmol/L BUN (7-17) mg/dL Creatinine (0.52-1.04) mg/dL Glucose (74-99) mg/dL POC Glucose (mg/dL) 461 H 478 H 426 H (70-110) mg/dL Calcium (8.4-10.2) mg/dL Phosphorus (2.5-4.5) mg/dL 01/26/23 01/26/23 01/26/23 Range/Units 03:34 03:34 05:28 WBC 11.3 H (3.8-10.6) k/uL RBC 3.11 L (3.80-5.40) m/uL Hgb 9.3 L (11.4-16.0) gm/dL Hct 28.5 L (34.0-46.0) % Monocytes # (Manual) 1.13 H (0-1.0) k/uL Sodium 132 L (137-145) mmol/L Potassium 3.2 L (3.5-5.1) mmol/L BUN 39 H (7-17) mg/dL Creatinine 1.47 H (0.52-1.04) mg/dL Glucose 318 H (74-99) mg/dL POC Glucose (mg/dL) 284 H (70-110) mg/dL Calcium 8.0 L (8.4-10.2) mg/dL Phosphorus 1.8 L (2.5-4.5) mg/dL 01/26/23 01/26/23 01/26/23 Range/Units 06:26 09:17 11:39 WBC (3.8-10.6) k/uL RBC (3.80-5.40) m/uL Hgb (11.4-16.0) gm/dL Hct (34.0-46.0) % Monocytes # (Manual) (0-1.0) k/uL Sodium (137-145) mmol/L Potassium (3.5-5.1) mmol/L BUN (7-17) mg/dL Creatinine (0.52-1.04) mg/dL Glucose (74-99) mg/dL POC Glucose (mg/dL) 315 H 238 H 390 H (70-110) mg/dL Calcium (8.4-10.2) mg/dL Phosphorus (2.5-4.5) mg/dL Microbiology - Last 24 Hours (Table) 01/22/23 09:45 Gram Stain - Final [facility] Body Fluid Culture - Final Assessment and Plan (1) Ischemic colitis Current Visit: Yes Status: Acute Code(s): K55.9 - VASCULAR DISORDER OF INTESTINE, UNSPECIFIED SNOMED Code(s): 94894409 (2) Sepsis Current Visit: No Status: Acute Code(s): A41.9 - SEPSIS, UNSPECIFIED ORGANISM SNOMED Code(s): 02233261 Plan: 1patient presented to hospital abdominal pain has been diagnosed with ischemic colitis in this patient infusion of septic shock with low-grade fever tachycardia elevated white count elevated lactic acid source being ischemic large bowel status post subtotal colectomy and end ileostomy we will need to cover for the enteric gram-negative both aerobes and anaerobes abdominal culture, which are so far pending 2-patient remains to be white count today is 11.3 about the same as yesterday, patient has shown clinical improvement and will continue Zosyn 3.375 g every 8 hours and continue with supportive care Time with Patient: Less than 30
[2023-01-26] MEDS ORDERED: ALBUTEROL HFA INHALER INHALATION PRN (13:30)
[2023-01-26] MEDS: SODIUM CHLORIDE 0.9% 1,000 ML IV SCH (16:30)
[2023-01-26] MEDS: ATORVASTATIN 40 MG TAB PO SCH (16:34)
[2023-01-26] MEDS: MULTIVITAMINS, THERA 1 EACH TAB PO SCH (16:34)
[2023-01-26] MEDS: FLUoxetine HCL 20 MG CAP PO SCH (16:34)
[2023-01-26] MEDS: CHOLECALCIFEROL 125 MCG (5000 IU) TABLET PO SCH (16:34)
[2023-01-26] MEDS: VITAMIN E (DL,TOCOPHERYL ACET) 400 UNIT (180 MG) CAP PO SCH (16:41)
[2023-01-26 17:00] LABS: Glucose,Whole Blood 370 mg/dL (70-110)
--- NOTE | 2023-01-26 18:36 | P.PN ---
Subjective Patient is seen for follow-up for acute kidney injury. Status post emergent explorative laparotomy and lysis of edema just with total abdominal colectomy and end ileostomy on 01/19/2023 Patient has been extubated. She is currently awake, comfortable. Renal function continues to improve Urine output at 80-100 ML per hour now. Serum creatinine down to 1.4 mg/dL today. Potassium was 3.0, being replaced. Patient remains off of pressors. Objective - Vital Signs Vital signs: Vital Signs Temp 98.8 F 01/26/23 14:00 Pulse 96 01/26/23 16:48 Resp 23 01/26/23 16:30 BP 138/57 01/25/23 13:15 Pulse Ox 95 01/26/23 16:30 FiO2 30 01/23/23 11:04 Intake & Output 01/25/23 01/26/23 01/26/23 18:59 06:59 18:59 Intake Total 2098.800 3361.834 563.133 Output Total 4430 1745 505 Balance -2331.200 1616.834 58.133 Weight 87.7 kg Intake: IV 726 1209 558 ACETAMINOPHEN IV (For NPO 100 ) 1,000 mg In Empty Bag 1 bag @ 400 mls/hr IVPB Q6H [facility] Rx#:[id number] Sodium Chloride 0.9% 1, 240 260 120 000 ml @ 20 mls/hr IV . Q24H [facility] Rx#:[id number] TPN 350 910 420 pressure bag 36 39 18 Intake, IV Titration 9789.701 0856.834 5.133 Amount Clevidipine Butyrate 25 192.800 127.334 5.133 mg In Empty Bag 1 bag @ 1 MG/HR 2 mls/hr IV .Q24H [facility] Rx#:[id number] Mvi, Adult No.4 with Vit 420 K 10 ml Trace (Conc-1Ml/ Dose) 1 ml Sodium Acetate 34 meq Potassium Chloride 20 meq Calcium Gluconate 1 gm Magnesium Sulfate gm 1.5 gm Potassium Phosphate 6 mmol In Amino Acid 4.25%- D10w 1,000 ml @ 70 mls/hr IV .BY DURATION [facility] Rx#: [id number] Piperacillin-Tazobactam 3 100 .375 gm In Sodium Chloride 0.9% 100 ml @ 25 mls/hr IVPB Q12H [facility] Rx# :[id number] Potassium Chloride 20 meq 100 In Water For Injection 1 100ml.bag @ 50 mls/hr IVPB ONCE [facility] Rx#: [id number] Potassium Chloride 20 meq 200 In Water For Injection 1 100ml.bag @ 50 mls/hr IVPB Q2H [facility] Rx#: [id number] Sodium Acetate 34 meq 1025.5 Potassium Chloride 20 meq Calcium Gluconate 1 gm Magnesium Sulfate gm 1.5 gm Potassium Phosphate 6 mmol In Amino Acid 4.25%- D10w 1,000 ml @ 70 mls/hr IV .BY DURATION [facility] Rx#: [id number] Oral 360 1000 Output: Drainage 30 65 200 Left Lower Abdomen 30 65 200 Urine 4400 1680 305 Other: Voiding Method Indwelling Catheter Indwelling Catheter Indwelling Catheter ABP, PAP, CO, CI - Last Documented Arterial Blood Pressure 116/51 - Exam Patient is awake, comfortable Examination of the heart S1 and S2 Examination of the lungs bilateral breath sounds are heard Abdomen is soft it is currently dressed Drains are noted. Examination lower extremity shows right BKA. No significant edema noted [employer] examination grossly intact - Labs CBC & Chem 7: 01/26/23 03:34 01/26/23 12:00 Labs: Abnormal Lab Results - Last 24 Hours (Table) 01/26/23 01/26/23 01/26/23 Range/Units 00:39 03:34 03:34 WBC 11.3 H (3.8-10.6) k/uL RBC 3.11 L (3.80-5.40) m/uL Hgb 9.3 L (11.4-16.0) gm/dL Hct 28.5 L (34.0-46.0) % Monocytes # (Manual) 1.13 H (0-1.0) k/uL Sodium 132 L (137-145) mmol/L Potassium 3.2 L (3.5-5.1) mmol/L BUN 39 H (7-17) mg/dL Creatinine 1.47 H (0.52-1.04) mg/dL Glucose 318 H (74-99) mg/dL POC Glucose (mg/dL) 426 H (70-110) mg/dL Calcium 8.0 L (8.4-10.2) mg/dL Phosphorus 1.8 L (2.5-4.5) mg/dL 01/26/23 01/26/23 01/26/23 Range/Units 05:28 06:26 09:17 WBC (3.8-10.6) k/uL RBC (3.80-5.40) m/uL Hgb (11.4-16.0) gm/dL Hct (34.0-46.0) % Monocytes # (Manual) (0-1.0) k/uL Sodium (137-145) mmol/L Potassium (3.5-5.1) mmol/L BUN (7-17) mg/dL Creatinine (0.52-1.04) mg/dL Glucose (74-99) mg/dL POC Glucose (mg/dL) 284 H 315 H 238 H (70-110) mg/dL Calcium (8.4-10.2) mg/dL Phosphorus (2.5-4.5) mg/dL 01/26/23 01/26/23 Range/Units 11:39 16:58 WBC (3.8-10.6) k/uL RBC (3.80-5.40) m/uL Hgb (11.4-16.0) gm/dL Hct (34.0-46.0) % Monocytes # (Manual) (0-1.0) k/uL Sodium (137-145) mmol/L Potassium (3.5-5.1) mmol/L BUN (7-17) mg/dL Creatinine (0.52-1.04) mg/dL Glucose (74-99) mg/dL POC Glucose (mg/dL) 390 H 370 H (70-110) mg/dL Calcium (8.4-10.2) mg/dL Phosphorus (2.5-4.5) mg/dL Microbiology - Last 24 Hours (Table) 01/22/23 09:45 Gram Stain - Final [facility] Body Fluid Culture - Final Assessment and Plan Assessment: 1. Acute kidney injury, ischemic ATN currently nonoliguric. No renal abnormalities mentioned on CT. UA shows WBCs 33, 2+ protein no blood. Urine output has improved and serum creatinine continues to improve. UOP was high from post ATN diuresis, now 80-100ml/hr. Cr down to 1.4 today. 2. Septic shock associated with ischemic bowel 3. Lactic acidosis and anion gap metabolic acidosis associated with ischemic bowel septic shock and acute kidney injury 4. Hyponatremia associated with hypotonic fluid with acute kidney injury 5. Acute hypoxic respiratory failure, status post extubation 6. Hypokalemia associated with post-ATN diuresis, being replaced Plan: Replace potassium Encourage increased oral intake. Repeat labs in a.m.
[2023-01-26] MEDS: TOPIRAMATE 25 MG TAB PO SCH (20:11)
[2023-01-26] MEDS: metFORMIN 500 MG TAB PO SCH (20:13)
[2023-01-26] MEDS ORDERED: QUEtiapine 400 MG TAB PO SCH (21:00)
[2023-01-27 00:28] LABS: Glucose,Whole Blood 321 mg/dL (70-110)
[2023-01-27] MEDS: PIPERACILLIN-TAZOBACTAM 3.375 GM in SODIUM CHLORIDE 0.9% 100 ML IVPB SCH ×2 (01:06→11:38)
[2023-01-27] MEDS: INSULIN ASPART (NovoLOG) 100 UNIT/ML VIAL SQ SCH ×4 (01:06→17:14)
[2023-01-27] MEDS: ACETAMINOPHEN IV (For NPO) 1,000 MG in EMPTY BAG 1 BAG IVPB SCH ×4 (03:23→20:43)
[2023-01-27 06:20] LABS: Glucose,Whole Blood 192 mg/dL (70-110)
--- NOTE | 2023-01-27 07:14 | P.PN ---
Subjective Progress Note Date: 01/26/23 CHIEF COMPLAINT: Acute abdomen with ischemic bowel HISTORY OF PRESENT ILLNESS: The patient is a 67 year old female with infarct large bowel status post total abdominal colectomy. she is off pressors. She is tolerating. Ostomy functioning. at bedside. She is awake and alert. REVIEW OF ORGAN SYSTEMS: Having bowel movements. No fevers or chills. No chest pain. PHYSICAL EXAM: VITALS: Reviewed CONSTITUTIONAL: Well developed and intubated EYES: Conjuctivae without sclera icterus. Extraocular movements grossly intact. HEAD, EARS, NOSE, THROAT: Moist buccal mucosa. Head is atraumatic, normocephalic. Hears conversational speech. No nasal drainage. NECK: Supple. No JV distention. No thyroidomegaly. RESPIRATORY: Nonlabored respiration. CARDIOVASCULAR: Distal pulses 2+. ABDOMEN: Nondistended. essential normal axis and discontinued. Midline incision clean dry and intact. Minimal serous drainage or abdomen. YASMINE serous. MUSCULOSKELETAL: No clubbing cyanosis or edema. Right below-knee amputee SKIN: Warm and well perfused with good skin turgor. NEUROLOGIC: Sedated PSYCH: Sedated CLINCAL LABS: Reviewed. ASSESSMENT: 1. Acute abdomen with active bowel 2. Hypertensive heart disease with congestive heart failure 3. Morbid obesity due to excess calories, BMI over 34.8 4. Acute renal failure due to dehydration 5. History of lower extremity amputee 6. Chronic obstructive pulmonary disease 7. Diabetes type 2, insulin-dependent with diabetic nephropathy 8. Gastroesophageal reflux disease 9. Hypotension due to hypovolemia 10. Lactic acidosis 11. Septic shock due to bowel 12. Status post total abdominal colectomy PLAN: 1. Adjust diet to dysphagia around this patient is edentulous. 2. Continue antibiotics. Antibiotic management per infectious disease who was present at the time of dressing change 3. Recommend rehab assessment 4. Continue YASMINE 5. May transfer to floor when stable Objective - Vital Signs Vital signs: Vital Signs Temp 97.8 F 01/27/23 02:00 Pulse 98 01/27/23 02:00 Resp 14 01/27/23 02:00 BP 118/57 01/27/23 02:00 Pulse Ox 94 L 01/27/23 02:00 FiO2 30 01/23/23 11:04 Intake & Output 01/26/23 01/27/23 01/27/23 18:59 06:59 18:59 Intake Total 1103.133 Output Total 605 300 Balance 498.133 -300 Weight 87.7 kg Intake: IV 698 Sodium Chloride 0.9% 1, 260 000 ml @ 20 mls/hr IV . Q24H [facility] Rx#:[id number] TPN 420 pressure bag 18 Intake, IV Titration 5.133 Amount Clevidipine Butyrate 25 5.133 mg In Empty Bag 1 bag @ 1 MG/HR 2 mls/hr IV .Q24H [facility] Rx#:[id number] Oral 400 Output: Drainage 200 300 Left Lower Abdomen 200 300 Urine 405 Other: Voiding Method Indwelling Catheter Indwelling Catheter ABP, PAP, CO, CI - Last Documented Arterial Blood Pressure 116/51 - Labs CBC & Chem 7: 01/26/23 03:34 01/26/23 12:00 Labs: Abnormal Lab Results - Last 24 Hours (Table) 01/26/23 01/26/23 01/26/23 Range/Units 09:17 11:39 16:58 POC Glucose (mg/dL) 238 H 390 H 370 H (70-110) mg/dL 01/27/23 01/27/23 Range/Units 00:26 06:18 POC Glucose (mg/dL) 321 H 192 H (70-110) mg/dL Microbiology - Last 24 Hours (Table) 01/22/23 09:45 Gram Stain - Final [facility] Body Fluid Culture - Final
[2023-01-27 08:02] LABS: Glucose,Whole Blood 200 mg/dL (70-110)
[2023-01-27] MEDS: INSULIN DETEMIR (LEVEMIR) 100 UNIT/ML SYR SQ SCH ×2 (08:02→20:42)
[2023-01-27] MEDS: PANTOPRAZOLE 40 MG/10 ML VIAL IV SCH (08:29)
[2023-01-27] MEDS: ENOXAPARIN 30 MG/0.3 ML SYRINGE SQ SCH (08:29)
[2023-01-27] MEDS: GABAPENTIN 400 MG CAP PO SCH ×3 (08:29→20:43)
[2023-01-27] MEDS: metFORMIN 500 MG TAB PO SCH (08:29)
[2023-01-27] MEDS: LORATADINE 10 MG TAB PO SCH (08:29)
[2023-01-27] MEDS: LEVOTHYROXINE 88 MCG TAB PO SCH (08:30)
[2023-01-27] MEDS: TOPIRAMATE 25 MG TAB PO SCH ×2 (08:31→20:42)
[2023-01-27] MEDS: OXYBUTYNIN 10 MG TAB.ER.24 PO SCH (08:31)
[2023-01-27] MEDS: IPRATROPIUM-ALBUTEROL 3 ML NEB INHALATION SCH ×4 (08:46→19:52)
--- NOTE | 2023-01-27 08:59 | P.PN ---
Subjective Progress Note Date: 01/27/23 67-year-old female patient is being seen in follow-up on 01/22/2023. A complicated case of abdominal distention, stooling infection requiring surgical intervention along with multiple medical problems and comorbidities P she initially presented to us with abdominal pain and she has not had a bowel mov ement for more than a week. She had significant abdominal distention. She was taken to the operating room and the patient underwent laparotomy, lysis of adhesions, total colectomy, ileostomy and the patient is currently postop day #3. She has been intubated and kept on a mechanical ventilator since. For now, the patient is still on a mechanical ventilator. She is a propofol which is running at 35 mcg/kg/m and she is adequately sedated and symptoms mechanical ventilator. She is on assist-control mode of mechanical ventilation at the rate of 24 with a rate of 24, tidal volume of 400, FiO2 of 30% and a PEEP of 5. Chest x-ray shows cardiomegaly. Some limited infiltrates in the left lung base and the right lower lobe lateral segment. Orotracheal tube is in a good location. The patient also has a triple-lumen catheter in the left subclavian. NG tube is also in good location. For now, the output from the NG tube is minimal. Her IV fluids are running at a rate of 75 mL an hour and the fluid is in the form of a bicarb infusion. She is on no pressors at this point in time in the urine output is in order of 5200 mL an hour. In terms of her electrolytes, the patient's sodium level has been dropping and it's down to 129. BUN is at 40 with a creatinine of 3.47 and a potassium level is at 4.2. Her serum bicarb is improved. She was as low as 13 and she is currently up to 20. Nevertheless, she is developing an acute kidney injury. Her creatinine at time of admission was 1.8 from a normal baseline. She has developed that he worsening of renal function the creatinine is up to 3.47. CAT scan of the abdomen and the pelvis that was done on 01/19/2023 showed no evidence of any hydronephrosis he had she had pancolonic distention with cecum dilatation which was up to 9.4 cm in size. At the same time, her white cell count has dropped down to 17.9 from as high as 25. Hemoglobin is stable at 9.2 and a platelet count is at 159. In terms of cultures, sputum culture has been negative. Abdominal wound cultures were taken and that is also still pending for now and the patient is covered with IV Zosyn. She is afebrile. She is having episodes of low-grade fever. She is on IV Tylenol. She remains hemodynamically stable. The patient remains nothing by mouth for now. The patient has a YASMINE drain located in the left lower quadrant and the output is in order of 200 mL over the past 8 hours. The output is serosanguineous. Her lactic acid level dropped from 7.3 down to 1.8. Blood sugars under adequate control and the patient is taking NovoLog insulin sliding scale coverage. She takes Lantus 55 units twice a day at home. She is also on a combination of Seroquel and Topamax and Prozac at home. Today's evaluation of 01/23/2023, the patient remains intubated on a mechanical ventilator. This morning, the patient is on assist control mode at the rate of 24 with a tidal volume of 400 and FiO2 of 30% with a PEEP of 5. The patient is on propofol running at 30 mcg/kg/m and the patient is adequately sedated at this point in time. PH is at 7.4 with a pCO2 of 40 and pO2 111. The peak airway pressure is 16. Chest x-ray shows no acute abnormalities. No significant orotracheal secretions. She does have some facial and scleral edema which is very much concerning the nursing staff. The patient is afebrile. The patient is hemodynamically stable and she is on no pressors. She is producing adequate amount of urine output. Creatinine is stable compared to yesterday and the level is at 3.4 with a BUN of 39 and a sodium level is at 1:30. Her white cell count is down to 12.8. LFTs are essentially within normal limits. The patient remains on TPN for nutritional support. Some limited activity and stool making was seen in her ileostomy bag. Surgical one-sided dry clean and intact. No signs of any significant volume overload. The patient has been in a possible fluid balance over the past 4 days at least. The patient was taken off the bicarb infusion and the patient is currently on normal saline at rate of 75 mL an hour. She is postop day #4 following a total colectomy and ileostomy. Orogastric tube remains in place with limited output. No other significant events otherwise for now. She is in with intermittent stable. Cardiac rhythm is sinus. On today's evaluation of 01/24/2023, the patient is postop day #5. The patient was weaned off the mechanical ventilator and the patient was extubated yesterday without having any major difficulties. Currently she is Breathing comfortably and she is currently on oxygen at 2 L nasal cannula. NG tube is still in place. No significant cough or sputum production. No significant respiratory distress. Output from the NG has been minimal. Ileostomy is functional and there is some brownish material collecting an ileostomy bag. Bowel sounds remain hypoactive. The patient is still profoundly weak. She has not been started on any form of feeding for the time being. She is hemodynamically stable. Urine output is adequate. TPN is still running for nutritional support. Blood work from today shows a white cell count of 9.3 with a hemoglobin of 9 and a platelet count of 163. Sodium is at 134, BUN is 45 with a creatinine of 2.7 and a patient's creatinine is essentially improving and is dropping on a daily basis. Potassium levels at 4, serum bicarb is 26. Calcium level is at 7.5. LFTs are normal with an albumin level of 2.5. Triglycerides were elevated at 502 and this is probably related to the propofol infusion at the patient was receiving. She is currently off propofol. She has on Lovenox 30 mg subcu for DVT prophylaxis. She is on IV Zosyn. IV fluids are in the form of normal saline at 20 mL an hour. Cardiac rhythm is still sinus. Having difficulties in performing the incentive spirometer at the patient is still white lethargic. Pulse ox is 97% 01/25/2023, the patient is postoperative day #6. She remains extubated and she is on oxygen at 2 L. NG tube is in place and a swallow evaluation to be done today. She remains on TPN. Angiopathy has been in the order of 200 mL of gastric juice over the past 24 hours. Meanwhile, her ileostomy is functioning. The wound over the abdomen is clean. The patient has a YASMINE drain in her left lower quadrant and output is serosanguineous and minimal. She is resting comfortably , and she is moving all 4 extremities. The patient is moving all 4 extremities. No focal neurological deficits. She is slow in answering questions. He had she is aware that she is in the hospital and she was able to tell me her name and following simple commands. No focal neurological deficit at this point in time. Her blood pressure was quite elevated and based on that the patient was started on Cleviprex Drip which is running at the rate of 8 mg an hour. Her sodium level is at 135 with a potassium level of 3 that needs to be replaced and a serum bicarb of 21. Creatinine is down to 2.07. White cell count is 11 with a hemoglobin of 9.6 and a platelet count of 206. The patient is on Lovenox for DVT prophylaxis and insulin sliding scale coverage. She remains on IV Zosyn. On 01/26/2023, the patient is postop day #7. She remains on oxygen at 2 L/m nasal cannula. She is still on TPN for nutritional support. At the same time the patient was given soft and chopped diet with one-to-one supervision. She is able to swallow. She is not meeting her requirements. NG tube was removed yesterday. Ileostomy is functional and there is positive output. She has no specific complaints. She is communicating at this point in time. She is hemodynamically stable. She is off the Cleviprex drip. She is on insulin signs good coverage and she is also on IV Zosyn.Blood work today shows a WD skeletal 11.3, hemoglobin 9.3 and a platelet count of 224. Sodium is at 132 with a potassium level of 3.2, BUN is 39 and the creatinine is 1.47. Sugar is 238. The patient is on Levemir insulin 30 units twice a day and she also taken a slight scale coverage. IV fluids and the form of normal saline at rate of 20 mL an hour. She is on Lovenox 30 mg subcu for DVT prophylaxis. The output from the YASMINE drain is serosanguineous and in the order of 70 mL overnight. On 01/27/2023, the patient is postoperative day #8. She is on room air oxygen for now. Doing well. TPN was discontinued and the patient is currently to lerating diet and her ileostomy is functional. No other new complaints otherwise for now. The YASMINE drain is still in place and output is serosanguineous. Hemodynamically stable. No new labs are available from today. Communicating although she is overall weak and somewhat lethargic. Remains on IV Zosyn. Remains on Lovenox for DVT prophylaxis. Remains on Levemir insulin 30 units twice a day and the NovoLog signs good coverage. Objective - Vital Signs Vital signs: Vital Signs Temp 97.8 F 01/27/23 02:00 Pulse 98 01/27/23 02:00 Resp 14 01/27/23 02:00 BP 118/57 01/27/23 02:00 Pulse Ox 94 L 01/27/23 02:00 FiO2 30 01/23/23 11:04 Intake & Output 01/26/23 01/27/23 01/27/23 18:59 06:59 18:59 Intake Total 1103.133 140 Output Total 605 900 Balance 498.133 -760 Weight 87.7 kg Intake: IV 698 140 Sodium Chloride 0.9% 1, 260 140 000 ml @ 20 mls/hr IV . Q24H [facility] Rx#:[id number] TPN 420 pressure bag 18 Intake, IV Titration 5.133 Amount Clevidipine Butyrate 25 5.133 mg In Empty Bag 1 bag @ 1 MG/HR 2 mls/hr IV .Q24H [facility] Rx#:[id number] Oral 400 Output: Drainage 200 500 Left Lower Abdomen 200 500 Urine 405 400 Other: Voiding Method Indwelling Catheter Indwelling Catheter ABP, PAP, CO, CI - Last Documented Arterial Blood Pressure 116/51 - Exam No acute distress, sedated, sedated, weak, still very much lethargic, extubated currently on RA Breathing is nonlabored, awake and alert and communicating. Head exam was generally normal. There was no scleral icterus or corneal arcus. Mucous membranes were moist. HEENT examination is grossly unremarkable. Neck supple. Full range of motion. No adenopathy thyromegaly or neck vein distention. Cardiovascular examination reveals regular rhythm rate. S1-S2 normal. No S3 or S4. No discernible murmur noted. Heart sounds are distant. Lungs reveal scattered bilateral rhonchi, which are moderate in severity. No wheezes or crackles. Breath sounds are equal bilaterally. Abdomen soft, with ileostomy noted. Diaz-Benítez drains are noted. In the YASMINE drain is in the left lower quadrant. Bowel sounds are hypoactive. No abdominal distention. No significant output through the ileostomy at this point in time. Extremities are intact. No cyanosis clubbing or edema. The patient has a right below the knee amputation. The patient also has several amputated toes in the left foot. She has diminished pulses in the left lower extremity. No significant edema. No cyanosis. No digital clubbing. The patient has an arterial line in her right radial artery. Skin is without rash or lesion. Neurologic examination , the patient is lethargic and sleepy and arousable. - Labs CBC & Chem 7: 01/26/23 03:34 01/26/23 12:00 Labs: Abnormal Lab Results - Last 24 Hours (Table) 01/26/23 01/26/23 01/26/23 Range/Units 09:17 11:39 16:58 POC Glucose (mg/dL) 238 H 390 H 370 H (70-110) mg/dL 01/27/23 01/27/23 01/27/23 Range/Units 00:26 06:18 08:00 POC Glucose (mg/dL) 321 H 192 H 200 H (70-110) mg/dL Microbiology - Last 24 Hours (Table) 01/22/23 09:45 Gram Stain - Final [facility] Body Fluid Culture - Final Assessment and Plan Plan: Severe abdominal distention, abdominal pain, constipation, and severe martinez- colonic distention, status post exploratory laparotomy, lysis of adhesions, total colectomy, ileostomy, abdominal washout, placement of Diaz-Benítez drains, and placement of a wound VAC, postop day #8 , currently nothing by mouth. The patient was given an ileostomy which is n YASMINE drain is in place. Hemodynamically stable on no pressors. Patient has positive output on an ileostomy bag, NG tube is in place with minimal amount of output. Bowel sounds are hypoactive. The patient is taking soft diet and chopped food with one-to-one supervision. The patient remains on TPN for nutritional support. S/P intubation and mechanical ventilation, beginning on January 19, for respiratory failure., The patient was extubated on 01/23/2023 Acute lactic acidemia, with anion gap metabolic acidosis, recovered Non-anion gap metabolic acidosis , recovered and the patient is currently off the bicarb infusion Acute kidney injury , creatinine is improving Acute leukocytosis, improving Obesity with a BMI of 38.9 Severe peripheral vascular disease with below-knee amputation on the right and several and predated toes on the left History of diabetes mellitus, currently on NovoLog sliding scale coverage History of stress urinary incontinence. History of hypothyroidism. History of hyperlipidemia. History of COPD from ongoing tobacco use. History of depression. hyponatremia, improved and the sodium level is back to normal Plan: Encourage the use of incentive spirometer Advanced oral diet as tolerated TPN stopeed NG tube was removed Monitor the renal function and avoid any nephrotoxic agents. Renal function continues to improve Continue IV Zosyn increased functionality of the ileostomy No pressors for now Slight scale insulin coverage on the patient is taking Levemir insulin 30 units twice a day Lovenox 30 mg subcu portably prophylaxis Involved physical therapy Condition is critical and we'll continue to follow. Transferred to a medical surgical floor We'll need physical therapy
[2023-01-27] MEDS ORDERED: amLODIPine 5 MG TAB PO SCH (09:00)
--- NOTE | 2023-01-27 09:06 | P.PN ---
Progress Note - Text Progress Note Date: 01/27/23 Patient remains stable. She is currently in the ICU has MedSurg over 4. Per the nursing staff she is tolerating her diet. On exam vital signs appear stable. Abdomen soft. Incisions clean dry tach. Status post subtotal colectomy for ischemic bowel. Patient received supportive care.
[2023-01-27 11:33] LABS: Glucose,Whole Blood 176 mg/dL (70-110)
[2023-01-27] MEDS: SODIUM CHLORIDE 0.9% 1,000 ML IV SCH (11:37)
[2023-01-27 13:15] LABS: HCT 30.3 % (34.0-46.0); MCH 29.9 pg (25.0-35.0); MCHC 32.9 g/dL (31.0-37.0); MCV 90.7 fL (80.0-100.0); Mean Platelet Volume 7.4; Platelet Count 415 k/uL (150-450); RBC 3.33 m/uL (3.80-5.40); RDW 14.4 % (11.5-15.5); WBC 22.4 k/uL (3.8-10.6)
[2023-01-27 13:19] LABS: Calcium 8.6 mg/dL (8.4-10.2); Magnesium 2.1 mg/dL (1.6-2.3); Phosphorus 3.6 mg/dL (2.5-4.5); Potassium 4.7 mmol/L (3.5-5.1); Total Bilirubin 0.6 mg/dL (0.2-1.3); Total Protein 6.1 g/dL (6.3-8.2)
[2023-01-27] MEDS: ONDANSETRON 4 MG/2 ML VIAL IVP PRN (14:39)
--- NOTE | 2023-01-27 14:56 | P.PN ---
Subjective Progress Note Date: 01/27/23 Follow-up for acute kidney injury. Urine output dropped to 20-30 ML's per minute. No documented hypotensive episodes. No nausea vomiting. Creatinine lately decent output from the ostomy. 1.5 L in the last 24 hours Objective - Vital Signs Vital signs: Vital Signs Temp 98.4 F 01/27/23 14:00 Pulse 101 H 01/27/23 14:00 Resp 20 01/27/23 14:00 BP 119/60 01/27/23 14:00 Pulse Ox 95 01/27/23 14:00 FiO2 30 01/23/23 11:04 Intake & Output 01/26/23 01/27/23 01/27/23 18:59 06:59 18:59 Intake Total 1103.133 140 Output Total 605 900 400 Balance 498.133 -760 -400 Weight 87.7 kg Intake: IV 698 140 Sodium Chloride 0.9% 1, 260 140 000 ml @ 20 mls/hr IV . Q24H [facility] Rx#:[id number] TPN 420 pressure bag 18 Intake, IV Titration 5.133 Amount Clevidipine Butyrate 25 5.133 mg In Empty Bag 1 bag @ 1 MG/HR 2 mls/hr IV .Q24H [facility] Rx#:[id number] Oral 400 Output: Drainage 200 500 400 Left Lower Abdomen 200 500 400 Medial Abdomen 0 Urine 405 400 Other: Voiding Method Indwelling Catheter Indwelling Catheter Indwelling Catheter ABP, PAP, CO, CI - Last Documented Arterial Blood Pressure 116/51 - Exam No acute distress S1-S2 heard Decreased breath sounds Right BKA Ostomy No edema - Labs CBC & Chem 7: 01/27/23 12:45 01/27/23 12:45 Labs: Abnormal Lab Results - Last 24 Hours (Table) 01/26/23 01/27/23 01/27/23 Range/Units 16:58 00:26 06:18 WBC (3.8-10.6) k/uL RBC (3.80-5.40) m/uL Hgb (11.4-16.0) gm/dL Hct (34.0-46.0) % Sodium (137-145) mmol/L Chloride (98-107) mmol/L BUN (7-17) mg/dL Creatinine (0.52-1.04) mg/dL Glucose (74-99) mg/dL POC Glucose (mg/dL) 370 H 321 H 192 H (70-110) mg/dL Alkaline Phosphatase (38-126) U/L Total Protein (6.3-8.2) g/dL Albumin (3.5-5.0) g/dL 01/27/23 01/27/23 01/27/23 Range/Units 08:00 11:30 12:45 WBC 22.4 H (3.8-10.6) k/uL RBC 3.33 L (3.80-5.40) m/uL Hgb 10.0 L (11.4-16.0) gm/dL Hct 30.3 L (34.0-46.0) % Sodium (137-145) mmol/L Chloride (98-107) mmol/L BUN (7-17) mg/dL Creatinine (0.52-1.04) mg/dL Glucose (74-99) mg/dL POC Glucose (mg/dL) 200 H 176 H (70-110) mg/dL Alkaline Phosphatase (38-126) U/L Total Protein (6.3-8.2) g/dL Albumin (3.5-5.0) g/dL 01/27/23 Range/Units 12:45 WBC (3.8-10.6) k/uL RBC (3.80-5.40) m/uL Hgb (11.4-16.0) gm/dL Hct (34.0-46.0) % Sodium 129 L (137-145) mmol/L Chloride 96 L (98-107) mmol/L BUN 44 H (7-17) mg/dL Creatinine 1.83 H (0.52-1.04) mg/dL Glucose 136 H (74-99) mg/dL POC Glucose (mg/dL) (70-110) mg/dL Alkaline Phosphatase 183 H (38-126) U/L Total Protein 6.1 L (6.3-8.2) g/dL Albumin 3.0 L (3.5-5.0) g/dL Assessment and Plan Assessment: #1 acute kidney injury secondary to hemodynamic ATN with low blood pressures. -Baseline creatinine 1.0 MG per DL. -Urine analysis pyuria with hyaline cast #2 septic shock secondary to ischemic bowel, resolved #3 exploratory laparotomy secondary to ischemic bowel with total abdominal colectomy. #4 hypoxic respiratory failure status post extubation #5 right BKA Plan: #1 renal function worsening, over diuresis. Add normal saline at 75 ML's an hour. #2 check labs in the morning #3 repeat a UA and urine studies.
[2023-01-27] MEDS ORDERED: ANIDULAFUNGIN 200 MG in SODIUM CHLORIDE 0.9% 200 ML IVPB ONE (15:00)
[2023-01-27 15:47] LABS: Appearance,Urine Clear (Clear); Bacteria,Urine Rare /hpf; Bilirubin,Urine Negative (Negative); Blood,Urine Trace (Negative); Budding Yeast,Urine Few /hpf; Color,Urine Yellow; Glucose,Urine (UA) Negative (Negative); Ketones,Urine Negative (Negative); Leukocyte Esterase,Urine Large (Negative); Nitrite,Urine Negative (Negative); PH, Urine 6.5 (5.0-8.0); Protein,Urine 1+ (Negative); RBC,Urine 3 /hpf (0-5); Specific Gravity,Urine 1.019 (1.001-1.035); Squamous Epithelial Cell,Urine <1 /hpf (0-4); Urobilinogen,Urine <2.0 mg/dL (<2.0); WBC,Urine 33 /hpf (0-5)
[2023-01-27] MEDS: ATORVASTATIN 40 MG TAB PO SCH (16:04)
[2023-01-27] MEDS: MULTIVITAMINS, THERA 1 EACH TAB PO SCH (16:04)
[2023-01-27] MEDS: FLUoxetine HCL 20 MG CAP PO SCH (16:04)
[2023-01-27] MEDS: CHOLECALCIFEROL 125 MCG (5000 IU) TABLET PO SCH (16:04)
[2023-01-27] MEDS: VITAMIN E (DL,TOCOPHERYL ACET) 400 UNIT (180 MG) CAP PO SCH (16:04)
[2023-01-27 16:55] LABS: Glucose,Whole Blood 131 mg/dL (70-110)
[2023-01-27] MEDS: QUEtiapine 200 MG TAB PO SCH (20:43)
--- NOTE | 2023-01-27 21:33 | P.PN ---
Subjective Progress Note Date: 01/27/23 Principal diagnosis: Ischemic colitis patient is a 67-year-old female with a past medical history significant for type 2 diabetes mellitus COPD morbid obesity did have a history of right below the knee amputation and left big toe amputation history of smoking presenting to the hospital with a 2-week history of abdominal pain , patient has been diagnosed with ischemic colitis in this patient with status post subtotal colectomy and ileostomy. Patient has been extubated as of 01/23/2023 On today's evaluation that is 01/27/2023, the patient continues to be afebrile, patient is breathing comfortably on room air , the patient has been tolerating her diet and did have output in her ileostomy bag, patient denies chest pain shortness breath or cough or abdominal pain Objective - Vital Signs Vital signs: Vital Signs Temp 99.2 F 01/27/23 08:00 Pulse 100 01/27/23 08:00 Resp 24 01/27/23 08:00 BP 114/60 01/27/23 08:00 Pulse Ox 96 01/27/23 08:00 FiO2 30 01/23/23 11:04 Intake & Output 01/26/23 01/27/23 01/27/23 18:59 06:59 18:59 Intake Total 1103.133 140 Output Total 605 900 200 Balance 498.133 -760 -200 Weight 87.7 kg Intake: IV 698 140 Sodium Chloride 0.9% 1, 260 140 000 ml @ 20 mls/hr IV . Q24H [facility] Rx#:[id number] TPN 420 pressure bag 18 Intake, IV Titration 5.133 Amount Clevidipine Butyrate 25 5.133 mg In Empty Bag 1 bag @ 1 MG/HR 2 mls/hr IV .Q24H [facility] Rx#:[id number] Oral 400 Output: Drainage 200 500 200 Left Lower Abdomen 200 500 200 Urine 405 400 Other: Voiding Method Indwelling Catheter Indwelling Catheter Indwelling Catheter ABP, PAP, CO, CI - Last Documented Arterial Blood Pressure 116/51 - Exam GENERAL DESCRIPTION: An elderly female lying in bed in no distress RESPIRATORY SYSTEM: Unlabored breathing , decreased breath sounds at bases HEART: S1 S2 regular rate and rhythm , ABDOMEN: Soft , midline incision looks clean EXTREMITIES: Right BK stump incision is healed - Labs CBC & Chem 7: 01/27/23 12:45 01/27/23 12:45 Labs: Abnormal Lab Results - Last 24 Hours (Table) 01/26/23 01/27/23 01/27/23 Range/Units 16:58 00:26 06:18 WBC (3.8-10.6) k/uL RBC (3.80-5.40) m/uL Hgb (11.4-16.0) gm/dL Hct (34.0-46.0) % Sodium (137-145) mmol/L Chloride (98-107) mmol/L BUN (7-17) mg/dL Creatinine (0.52-1.04) mg/dL Glucose (74-99) mg/dL POC Glucose (mg/dL) 370 H 321 H 192 H (70-110) mg/dL Alkaline Phosphatase (38-126) U/L Total Protein (6.3-8.2) g/dL Albumin (3.5-5.0) g/dL 01/27/23 01/27/23 01/27/23 Range/Units 08:00 11:30 12:45 WBC 22.4 H (3.8-10.6) k/uL RBC 3.33 L (3.80-5.40) m/uL Hgb 10.0 L (11.4-16.0) gm/dL Hct 30.3 L (34.0-46.0) % Sodium (137-145) mmol/L Chloride (98-107) mmol/L BUN (7-17) mg/dL Creatinine (0.52-1.04) mg/dL Glucose (74-99) mg/dL POC Glucose (mg/dL) 200 H 176 H (70-110) mg/dL Alkaline Phosphatase (38-126) U/L Total Protein (6.3-8.2) g/dL Albumin (3.5-5.0) g/dL 01/27/23 Range/Units 12:45 WBC (3.8-10.6) k/uL RBC (3.80-5.40) m/uL Hgb (11.4-16.0) gm/dL Hct (34.0-46.0) % Sodium 129 L (137-145) mmol/L Chloride 96 L (98-107) mmol/L BUN 44 H (7-17) mg/dL Creatinine 1.83 H (0.52-1.04) mg/dL Glucose 136 H (74-99) mg/dL POC Glucose (mg/dL) (70-110) mg/dL Alkaline Phosphatase 183 H (38-126) U/L Total Protein 6.1 L (6.3-8.2) g/dL Albumin 3.0 L (3.5-5.0) g/dL Assessment and Plan (1) Ischemic colitis Current Visit: Yes Status: Acute Code(s): K55.9 - VASCULAR DISORDER OF INTESTINE, UNSPECIFIED SNOMED Code(s): 32718438 (2) Sepsis Current Visit: No Status: Acute Code(s): A41.9 - SEPSIS, UNSPECIFIED ORGANISM SNOMED Code(s): 52975208 Plan: 1patient presented to hospital abdominal pain has been diagnosed with ischemic colitis in this patient infusion of septic shock with low-grade fever tachycardia elevated white count elevated lactic acid source being ischemic large bowel status post subtotal colectomy and end ileostomy we will need to cover for the enteric gram-negative both aerobes and anaerobes abdominal culture, which are so far pending 2-patient remains to be afebrile however patient white count is 22,000 today, we will obtain blood cultures from the central line and peripherally add Eraxsis and continue with Zosyn 3.375 g every 8 hours and continue with supportive care Time with Patient: Less than 30
--- NOTE | 2023-01-27 22:07 | P.PN ---
Subjective Progress Note Date: 01/27/23 Patient is evaluated today in the intensive care unit with family at the bedside. Patient is holding for a med/surg bed. Remains on IV anidulafungin, IV zosyn. Postoperative day #8 subtotal colectomy secondary to ischemic bowel. TPN has been discontinued patient has been started on ground diet and tolerating. She is making some stool from the ostomy. YASMINE drain in place. Patient has a white count of 22.4 today. Hemoglobin stable at 10.0. Sodium is down to 129, BUN 44, creatinine 1.83. Blood glucose of 176. Magnesium 2.1. Alk phos remains elevated, AST/ALT have normalized. Review of Systems Constitutional: Reports fatigue, denied any fever. Cardio vascular: denied any chest pain, palpitations Gastrointestinal: denied any nausea, vomiting, diarrhea Pulmonary: Denied any shortness of breath cough Neurologic denied any new focal deficits All inpatient medications were reviewed and appropriate changes in these medications as dictated in the interval history and assessment and plan. PHYSICAL EXAMINATION: GENERAL: The patient is alert and oriented x2-3, not in any acute distress. Well developed, well nourished. Patient is fatigued. HEENT: Pupils are round and equally reacting to light. EOMI. No scleral icterus. No conjunctival pallor. Normocephalic, atraumatic. No pharyngeal erythema. No thyromegaly. CARDIOVASCULAR: S1 and S2 present. No murmurs, rubs, or gallops. PULMONARY: Chest is clear to auscultation, no wheezing or crackles. Diminished ABDOMEN: Soft, nontender, nondistended, normoactive bowel sounds. No palpable organomegaly. Post surgical abdomen. MUSCULOSKELETAL: No joint swelling or deformity. EXTREMITIES: Status right BKA. NEUROLOGICAL: Gross neurological examination did not reveal any focal deficits. SKIN: No rashes. Assessment and Plan Assessment Ischemic bowel with sepsis present on admission status post subtotal colectomy with ostomy formation Ischemic colitis Acute kidney injury Leukocytosis Hyponatremia, likely hypovolemic Hypomagnesemia COPD History of hypertension Type 2 diabetes mellitus History of right BKA Opioid dependence Chronic and ongoing nicotine dependence GI prophylaxis DVT prophylaxis Lovenox Full Code Plan Gabapentin dose has been decreased Continue on normal saline dose has been increased to 100 mls/hr Continue on IV antibiotics Follow up AM labs On ground diet encourage oral intake Clarence on DC when medically stable The impression and plan of care has been dictated by Nurse Liliam Pr actitioner as directed. Dr. Fam MD I have performed a history and physical examination and medical decision making of this patient, discussed the same with the dictator, and agree with the dicta tors assessment and plan as written, documented as a scribe. Based on total visit time, I have performed more than 50% of this visit. Objective - Vital Signs Vital signs: Vital Signs Temp 98.4 F 01/27/23 14:00 Pulse 101 H 01/27/23 14:00 Resp 20 01/27/23 14:00 BP 119/60 01/27/23 14:00 Pulse Ox 95 01/27/23 14:00 FiO2 30 01/23/23 11:04 Intake & Output 01/26/23 01/27/23 01/27/23 18:59 06:59 18:59 Intake Total 1103.133 140 Output Total 605 900 400 Balance 498.133 -760 -400 Weight 87.7 kg Intake: IV 698 140 Sodium Chloride 0.9% 1, 260 140 000 ml @ 20 mls/hr IV . Q24H [facility] Rx#:[id number] TPN 420 pressure bag 18 Intake, IV Titration 5.133 Amount Clevidipine Butyrate 25 5.133 mg In Empty Bag 1 bag @ 1 MG/HR 2 mls/hr IV .Q24H [facility] Rx#:[id number] Oral 400 Output: Drainage 200 500 400 Left Lower Abdomen 200 500 400 Medial Abdomen 0 Urine 405 400 Other: Voiding Method Indwelling Catheter Indwelling Catheter Indwelling Catheter ABP, PAP, CO, CI - Last Documented Arterial Blood Pressure 116/51 - Labs CBC & Chem 7: 01/27/23 12:45 01/27/23 12:45 Labs: Abnormal Lab Results - Last 24 Hours (Table) 01/26/23 01/27/23 01/27/23 Range/Units 16:58 00:26 06:18 WBC (3.8-10.6) k/uL RBC (3.80-5.40) m/uL Hgb (11.4-16.0) gm/dL Hct (34.0-46.0) % Sodium (137-145) mmol/L Chloride (98-107) mmol/L BUN (7-17) mg/dL Creatinine (0.52-1.04) mg/dL Glucose (74-99) mg/dL POC Glucose (mg/dL) 370 H 321 H 192 H (70-110) mg/dL Alkaline Phosphatase (38-126) U/L Total Protein (6.3-8.2) g/dL Albumin (3.5-5.0) g/dL 01/27/23 01/27/23 01/27/23 Range/Units 08:00 11:30 12:45 WBC 22.4 H (3.8-10.6) k/uL RBC 3.33 L (3.80-5.40) m/uL Hgb 10.0 L (11.4-16.0) gm/dL Hct 30.3 L (34.0-46.0) % Sodium (137-145) mmol/L Chloride (98-107) mmol/L BUN (7-17) mg/dL Creatinine (0.52-1.04) mg/dL Glucose (74-99) mg/dL POC Glucose (mg/dL) 200 H 176 H (70-110) mg/dL Alkaline Phosphatase (38-126) U/L Total Protein (6.3-8.2) g/dL Albumin (3.5-5.0) g/dL 01/27/23 Range/Units 12:45 WBC (3.8-10.6) k/uL RBC (3.80-5.40) m/uL Hgb (11.4-16.0) gm/dL Hct (34.0-46.0) % Sodium 129 L (137-145) mmol/L Chloride 96 L (98-107) mmol/L BUN 44 H (7-17) mg/dL Creatinine 1.83 H (0.52-1.04) mg/dL Glucose 136 H (74-99) mg/dL POC Glucose (mg/dL) (70-110) mg/dL Alkaline Phosphatase 183 H (38-126) U/L Total Protein 6.1 L (6.3-8.2) g/dL Albumin 3.0 L (3.5-5.0) g/dL Assessment and Plan Time with Patient: Less than 30
[2023-01-27 23:49] LABS: Glucose,Whole Blood 132 mg/dL (70-110)
[2023-01-28] MEDS: ONDANSETRON 4 MG/2 ML VIAL IVP PRN (00:17)
[2023-01-28] MEDS: PIPERACILLIN-TAZOBACTAM 3.375 GM in SODIUM CHLORIDE 0.9% 100 ML IVPB SCH ×2 (00:18→18:30)
[2023-01-28] MEDS: INSULIN ASPART (NovoLOG) 100 UNIT/ML VIAL SQ SCH ×5 (00:18→23:39)
[2023-01-28] MEDS: SODIUM CHLORIDE 0.9% 1,000 ML IV SCH ×3 (00:20→19:08)
[2023-01-28] MEDS: HYDROmorphone 1 MG/ML 1 ML SYRINGE IVP PRN (00:22)
[2023-01-28 05:17] LABS: Calcium 8.4 mg/dL (8.4-10.2); Phosphorus 4.9 mg/dL (2.5-4.5); Potassium 4.9 mmol/L (3.5-5.1)
[2023-01-28 06:00] LABS: Glucose,Whole Blood 147 mg/dL (70-110)
[2023-01-28] MEDS: ACETAMINOPHEN IV (For NPO) 1,000 MG in EMPTY BAG 1 BAG IVPB SCH ×4 (06:09→20:45)
[2023-01-28 06:21] LABS: Basophils # (A) 0.1 k/uL (0-0.2); Basophils % (A) 0 %; Eosinophils # (A) 0.1 k/uL (0-0.7); Eosinophils % (A) 1 %; HGB 10.2 gm/dL (11.4-16.0); Lymphocytes # (A) 0.9 k/uL (1.0-4.8); Lymphocytes % (A) 4 %; MCH 29.6 pg (25.0-35.0); MCHC 31.9 g/dL (31.0-37.0); MCV 92.7 fL (80.0-100.0); Mean Platelet Volume 8.2; Monocytes # (A) 0.6 k/uL (0-1.0); Monocytes % (A) 3 %; Neutrophils # (A) 20.9 k/uL (1.3-7.7); Neutrophils % (A) 91 %; Platelet Count 366 k/uL (150-450); RBC 3.45 m/uL (3.80-5.40); RDW 14.6 % (11.5-15.5); WBC 22.9 k/uL (3.8-10.6)
[2023-01-28] MEDS: IPRATROPIUM-ALBUTEROL 3 ML NEB INHALATION SCH ×4 (07:55→19:54)
--- NOTE | 2023-01-28 08:08 | P.PN ---
Subjective Progress Note Date: 01/28/23 67-year-old female patient is being seen in follow-up on 01/22/2023. A complicated case of abdominal distention, stooling infection requiring surgical intervention along with multiple medical problems and comorbidities P she initially presented to us with abdominal pain and she has not had a bowel mov ement for more than a week. She had significant abdominal distention. She was taken to the operating room and the patient underwent laparotomy, lysis of adhesions, total colectomy, ileostomy and the patient is currently postop day #3. She has been intubated and kept on a mechanical ventilator since. For now, the patient is still on a mechanical ventilator. She is a propofol which is running at 35 mcg/kg/m and she is adequately sedated and symptoms mechanical ventilator. She is on assist-control mode of mechanical ventilation at the rate of 24 with a rate of 24, tidal volume of 400, FiO2 of 30% and a PEEP of 5. Chest x-ray shows cardiomegaly. Some limited infiltrates in the left lung base and the right lower lobe lateral segment. Orotracheal tube is in a good location. The patient also has a triple-lumen catheter in the left subclavian. NG tube is also in good location. For now, the output from the NG tube is minimal. Her IV fluids are running at a rate of 75 mL an hour and the fluid is in the form of a bicarb infusion. She is on no pressors at this point in time in the urine output is in order of 5200 mL an hour. In terms of her electrolytes, the patient's sodium level has been dropping and it's down to 129. BUN is at 40 with a creatinine of 3.47 and a potassium level is at 4.2. Her serum bicarb is improved. She was as low as 13 and she is currently up to 20. Nevertheless, she is developing an acute kidney injury. Her creatinine at time of admission was 1.8 from a normal baseline. She has developed that he worsening of renal function the creatinine is up to 3.47. CAT scan of the abdomen and the pelvis that was done on 01/19/2023 showed no evidence of any hydronephrosis he had she had pancolonic distention with cecum dilatation which was up to 9.4 cm in size. At the same time, her white cell count has dropped down to 17.9 from as high as 25. Hemoglobin is stable at 9.2 and a platelet count is at 159. In terms of cultures, sputum culture has been negative. Abdominal wound cultures were taken and that is also still pending for now and the patient is covered with IV Zosyn. She is afebrile. She is having episodes of low-grade fever. She is on IV Tylenol. She remains hemodynamically stable. The patient remains nothing by mouth for now. The patient has a YASMINE drain located in the left lower quadrant and the output is in order of 200 mL over the past 8 hours. The output is serosanguineous. Her lactic acid level dropped from 7.3 down to 1.8. Blood sugars under adequate control and the patient is taking NovoLog insulin sliding scale coverage. She takes Lantus 55 units twice a day at home. She is also on a combination of Seroquel and Topamax and Prozac at home. Today's evaluation of 01/23/2023, the patient remains intubated on a mechanical ventilator. This morning, the patient is on assist control mode at the rate of 24 with a tidal volume of 400 and FiO2 of 30% with a PEEP of 5. The patient is on propofol running at 30 mcg/kg/m and the patient is adequately sedated at this point in time. PH is at 7.4 with a pCO2 of 40 and pO2 111. The peak airway pressure is 16. Chest x-ray shows no acute abnormalities. No significant orotracheal secretions. She does have some facial and scleral edema which is very much concerning the nursing staff. The patient is afebrile. The patient is hemodynamically stable and she is on no pressors. She is producing adequate amount of urine output. Creatinine is stable compared to yesterday and the level is at 3.4 with a BUN of 39 and a sodium level is at 1:30. Her white cell count is down to 12.8. LFTs are essentially within normal limits. The patient remains on TPN for nutritional support. Some limited activity and stool making was seen in her ileostomy bag. Surgical one-sided dry clean and intact. No signs of any significant volume overload. The patient has been in a possible fluid balance over the past 4 days at least. The patient was taken off the bicarb infusion and the patient is currently on normal saline at rate of 75 mL an hour. She is postop day #4 following a total colectomy and ileostomy. Orogastric tube remains in place with limited output. No other significant events otherwise for now. She is in with intermittent stable. Cardiac rhythm is sinus. On today's evaluation of 01/24/2023, the patient is postop day #5. The patient was weaned off the mechanical ventilator and the patient was extubated yesterday without having any major difficulties. Currently she is Breathing comfortably and she is currently on oxygen at 2 L nasal cannula. NG tube is still in place. No significant cough or sputum production. No significant respiratory distress. Output from the NG has been minimal. Ileostomy is functional and there is some brownish material collecting an ileostomy bag. Bowel sounds remain hypoactive. The patient is still profoundly weak. She has not been started on any form of feeding for the time being. She is hemodynamically stable. Urine output is adequate. TPN is still running for nutritional support. Blood work from today shows a white cell count of 9.3 with a hemoglobin of 9 and a platelet count of 163. Sodium is at 134, BUN is 45 with a creatinine of 2.7 and a patient's creatinine is essentially improving and is dropping on a daily basis. Potassium levels at 4, serum bicarb is 26. Calcium level is at 7.5. LFTs are normal with an albumin level of 2.5. Triglycerides were elevated at 502 and this is probably related to the propofol infusion at the patient was receiving. She is currently off propofol. She has on Lovenox 30 mg subcu for DVT prophylaxis. She is on IV Zosyn. IV fluids are in the form of normal saline at 20 mL an hour. Cardiac rhythm is still sinus. Having difficulties in performing the incentive spirometer at the patient is still white lethargic. Pulse ox is 97% 01/25/2023, the patient is postoperative day #6. She remains extubated and she is on oxygen at 2 L. NG tube is in place and a swallow evaluation to be done today. She remains on TPN. Angiopathy has been in the order of 200 mL of gastric juice over the past 24 hours. Meanwhile, her ileostomy is functioning. The wound over the abdomen is clean. The patient has a YASMINE drain in her left lower quadrant and output is serosanguineous and minimal. She is resting comfortably , and she is moving all 4 extremities. The patient is moving all 4 extremities. No focal neurological deficits. She is slow in answering questions. He had she is aware that she is in the hospital and she was able to tell me her name and following simple commands. No focal neurological deficit at this point in time. Her blood pressure was quite elevated and based on that the patient was started on Cleviprex Drip which is running at the rate of 8 mg an hour. Her sodium level is at 135 with a potassium level of 3 that needs to be replaced and a serum bicarb of 21. Creatinine is down to 2.07. White cell count is 11 with a hemoglobin of 9.6 and a platelet count of 206. The patient is on Lovenox for DVT prophylaxis and insulin sliding scale coverage. She remains on IV Zosyn. On 01/26/2023, the patient is postop day #7. She remains on oxygen at 2 L/m nasal cannula. She is still on TPN for nutritional support. At the same time the patient was given soft and chopped diet with one-to-one supervision. She is able to swallow. She is not meeting her requirements. NG tube was removed yesterday. Ileostomy is functional and there is positive output. She has no specific complaints. She is communicating at this point in time. She is hemodynamically stable. She is off the Cleviprex drip. She is on insulin signs good coverage and she is also on IV Zosyn.Blood work today shows a WD skeletal 11.3, hemoglobin 9.3 and a platelet count of 224. Sodium is at 132 with a potassium level of 3.2, BUN is 39 and the creatinine is 1.47. Sugar is 238. The patient is on Levemir insulin 30 units twice a day and she also taken a slight scale coverage. IV fluids and the form of normal saline at rate of 20 mL an hour. She is on Lovenox 30 mg subcu for DVT prophylaxis. The output from the YASMINE drain is serosanguineous and in the order of 70 mL overnight. On 01/27/2023, the patient is postoperative day #8. She is on room air oxygen for now. Doing well. TPN was discontinued and the patient is currently to lerating diet and her ileostomy is functional. No other new complaints otherwise for now. The YASMINE drain is still in place and output is serosanguineous. Hemodynamically stable. No new labs are available from today. Communicating although she is overall weak and somewhat lethargic. Remains on IV Zosyn. Remains on Lovenox for DVT prophylaxis. Remains on Levemir insulin 30 units twice a day and the NovoLog signs good coverage. 01/28/2023, the patient is postop day #9. She is awake and alert and communicating. She was taken off the TPN and currently she is tolerating oral intake. Her ileostomy is functional. YASMINE drains are in place and output is serosanguineous. She is overall weak and she is showing some progress on a daily basis. White cell count was 22 with a hemoglobin 10.2 and a platelet count of 366. BUN is 49 with a creatinine of 2.07 and sodium levels of 1:30. Potassium levels at 4.9. No other new complaints otherwise for now. She is hemodynamically stable. . Dilaudid for pain control. Levemir insulin 30 units twice a day plus a sliding scale coverage. Objective - Vital Signs Vital signs: Vital Signs Temp 99.2 F 01/27/23 20:00 Pulse 107 H 01/28/23 02:00 Resp 22 01/28/23 02:00 BP 118/59 01/28/23 02:00 Pulse Ox 93 L 01/28/23 02:00 FiO2 30 01/23/23 11:04 Intake & Output 01/27/23 01/28/23 01/28/23 18:59 06:59 18:59 Intake Total 1310 1300 Output Total 1360 450 120 Balance -50 850 -120 Intake: IV 660 1300 ACETAMINOPHEN IV (For NPO 100 100 ) 1,000 mg In Empty Bag 1 bag @ 400 mls/hr IVPB Q6H [facility] Rx#:[id number] Sodium Chloride 0.9% 1, 560 1200 000 ml @ 100 mls/hr IV . Q10H [facility] Rx#:[id number] Intake, IV Titration 200 Amount Anidulafungin 200 mg In 200 Sodium Chloride 0.9% 200 ml @ 84 mls/hr IVPB ONCE ONE Rx#:[id number] Oral 450 Output: Drainage 675 120 Left Lower Abdomen 675 120 Medial Abdomen 0 Urine 235 450 Stool 50 Emesis 400 Other: Voiding Method Indwelling Catheter Indwelling Catheter ABP, PAP, CO, CI - Last Documented Arterial Blood Pressure 116/51 - Exam No acute distress, sedated, sedated, weak, still very much lethargic, extubated currently on RA Breathing is nonlabored, awake and alert and communicating. Head exam was generally normal. There was no scleral icterus or corneal arcus. Mucous membranes were moist. HEENT examination is grossly unremarkable. Neck supple. Full range of motion. No adenopathy thyromegaly or neck vein dis tention. Cardiovascular examination reveals regular rhythm rate. S1-S2 normal. No S3 or S4. No discernible murmur noted. Heart sounds are distant. Lungs reveal scattered bilateral rhonchi, which are moderate in severity. No wheezes or crackles. Breath sounds are equal bilaterally. Abdomen soft, with ileostomy noted. Diaz-Benítez drains are noted. In the YASMINE drain is in the left lower quadrant. Bowel sounds are hypoactive. No abdominal distention. No significant output through the ileostomy at this point in time. Extremities are intact. No cyanosis clubbing or edema. The patient has a right below the knee amputation. The patient also has several amputated toes in the left foot. She has diminished pulses in the left lower extremity. No significant edema. No cyanosis. No digital clubbing. The patient has an arterial line in her right radial artery. Skin is without rash or lesion. Neurologic examination , the patient is lethargic and sleepy and arousable. - Labs CBC & Chem 7: 01/28/23 04:50 01/28/23 04:50 Labs: Abnormal Lab Results - Last 24 Hours (Table) 01/27/23 01/27/23 01/27/23 Range/Units 11:30 12:45 12:45 WBC 22.4 H (3.8-10.6) k/uL RBC 3.33 L (3.80-5.40) m/uL Hgb 10.0 L (11.4-16.0) gm/dL Hct 30.3 L (34.0-46.0) % Neutrophils # (1.3-7.7) k/uL Lymphocytes # (1.0-4.8) k/uL Sodium 129 L (137-145) mmol/L Chloride 96 L (98-107) mmol/L Carbon Dioxide (22-30) mmol/L BUN 44 H (7-17) mg/dL Creatinine 1.83 H (0.52-1.04) mg/dL Glucose 136 H (74-99) mg/dL POC Glucose (mg/dL) 176 H (70-110) mg/dL Phosphorus (2.5-4.5) mg/dL Alkaline Phosphatase 183 H (38-126) U/L Total Protein 6.1 L (6.3-8.2) g/dL Albumin 3.0 L (3.5-5.0) g/dL Urine Protein (Negative) Urine Blood (Negative) Ur Leukocyte Esterase (Negative) Urine WBC (0-5) /hpf Urine Bacteria (None) /hpf Urine Yeast (Budding) (None) /hpf 01/27/23 01/27/23 01/27/23 Range/Units 15:29 16:54 23:47 WBC (3.8-10.6) k/uL RBC (3.80-5.40) m/uL Hgb (11.4-16.0) gm/dL Hct (34.0-46.0) % Neutrophils # (1.3-7.7) k/uL Lymphocytes # (1.0-4.8) k/uL Sodium (137-145) mmol/L Chloride (98-107) mmol/L Carbon Dioxide (22-30) mmol/L BUN (7-17) mg/dL Creatinine (0.52-1.04) mg/dL Glucose (74-99) mg/dL POC Glucose (mg/dL) 131 H 132 H (70-110) mg/dL Phosphorus (2.5-4.5) mg/dL Alkaline Phosphatase (38-126) U/L Total Protein (6.3-8.2) g/dL Albumin (3.5-5.0) g/dL Urine Protein 1+ H (Negative) Urine Blood Trace H (Negative) Ur Leukocyte Esterase Large H (Negative) Urine WBC 33 H (0-5) /hpf Urine Bacteria Rare H (None) /hpf Urine Yeast (Budding) Few H (None) /hpf 01/28/23 01/28/23 01/28/23 Range/Units 04:50 04:50 05:59 WBC 22.9 H (3.8-10.6) k/uL RBC 3.45 L (3.80-5.40) m/uL Hgb 10.2 L (11.4-16.0) gm/dL Hct 32.0 L (34.0-46.0) % Neutrophils # 20.9 H (1.3-7.7) k/uL Lymphocytes # 0.9 L (1.0-4.8) k/uL Sodium 130 L (137-145) mmol/L Chloride (98-107) mmol/L Carbon Dioxide 19 L (22-30) mmol/L BUN 49 H (7-17) mg/dL Creatinine 2.07 H (0.52-1.04) mg/dL Glucose 129 H (74-99) mg/dL POC Glucose (mg/dL) 147 H (70-110) mg/dL Phosphorus 4.9 H (2.5-4.5) mg/dL Alkaline Phosphatase (38-126) U/L Total Protein (6.3-8.2) g/dL Albumin (3.5-5.0) g/dL Urine Protein (Negative) Urine Blood (Negative) Ur Leukocyte Esterase (Negative) Urine WBC (0-5) /hpf Urine Bacteria (None) /hpf Urine Yeast (Budding) (None) /hpf Assessment and Plan Plan: Severe abdominal distention, abdominal pain, constipation, and severe martinez- colonic distention, status post exploratory laparotomy, lysis of adhesions, t otal colectomy, ileostomy, abdominal washout, placement of Diaz-Benítez drains, and placement of a wound VAC, postop day #9 , . The patient was given an ileostomy which is functional and YASMINE drain is in place. Hemodynamically stable on no pressors. Patient has positive output on an ileostomy bag, she is currently off TPN and the patient is receiving oral feeds. S/P intubation and mechanical ventilation, beginning on January 19, for respiratory failure., The patient was extubated on 01/23/2023 Acute lactic acidemia, with anion gap metabolic acidosis, recovered Acute kidney injury , creatinine is improving Acute leukocytosis, improving, yet unchanged compared to yesterday Obesity with a BMI of 38.9 Severe peripheral vascular disease with below-knee amputation on the right and several and predated toes on the left History of diabetes mellitus, currently on NovoLog sliding scale coverage, and the patient is also on Levemir insulin History of stress urinary incontinence. History of hypothyroidism. History of hyperlipidemia. History of COPD from ongoing tobacco use. History of depression. Plan: Encourage the use of incentive spirometer, the patient has a weak cough Advanced oral diet as tolerated TPN has been discontinued Monitor the renal function and avoid any nephrotoxic agents. Renal function continues to improve Antibiotics per infectious disease increased functionality of the ileostomy No pressors for now Slight scale insulin coverage on the patient is taking Levemir insulin 30 units twice a day Lovenox 30 mg subcu portably prophylaxis Involved physical therapy Condition is critical and we'll continue to follow. Transferred to a medical surgical floor We'll need physical therapy
[2023-01-28] MEDS: LORATADINE 10 MG TAB PO SCH (08:50)
[2023-01-28] MEDS: PANTOPRAZOLE 40 MG/10 ML VIAL IV SCH (08:50)
[2023-01-28] MEDS: ENOXAPARIN 30 MG/0.3 ML SYRINGE SQ SCH (08:50)
[2023-01-28] MEDS: LEVOTHYROXINE 88 MCG TAB PO SCH (08:51)
[2023-01-28] MEDS: OXYBUTYNIN 10 MG TAB.ER.24 PO SCH (08:51)
[2023-01-28] MEDS: TOPIRAMATE 25 MG TAB PO SCH ×2 (08:52→20:33)
[2023-01-28] MEDS: INSULIN DETEMIR (LEVEMIR) 100 UNIT/ML SYR SQ SCH ×2 (08:57→22:09)
[2023-01-28 08:59] LABS: Glucose,Whole Blood 159 mg/dL (70-110)
[2023-01-28] MEDS ORDERED: amLODIPine 2.5 MG TAB PO SCH (09:00)
[2023-01-28] MEDS: GABAPENTIN 400 MG CAP PO SCH (09:04)
[2023-01-28 12:00] LABS: Glucose,Whole Blood 177 mg/dL (70-110)
--- NOTE | 2023-01-28 12:14 | P.PN ---
Progress Note - Text Progress Note Date: 01/28/23 The patient remains in ICU. She is clinically unchanged from yesterday. She is tolerating diet. On exam vital signs are still. White count is noted to be 22,000. Abdomen is soft. Ileostomy is functioning. Patient will be receiving a chest x-ray today per the medical service. She'll continue receive supportive care.
[2023-01-28] MEDS ORDERED: FUROSEMIDE 10 MG/ML 4 ML VIAL IV STA (12:24)
[2023-01-28] MEDS: NICOTINE 21MG/24HR PATCH TRANSDERM SCH (12:35)
--- NOTE | 2023-01-28 12:38 | XR ---
EXAMINATION TYPE: XR chest 1V portable DATE OF EXAM: 01/28/2023 COMPARISON: 01/24/2023 INDICATION: Congestion TECHNIQUE: Single frontal view of the chest is obtained. FINDINGS: The heart size is normal. The pulmonary vasculature is normal. Some mild left upper lobe infiltrate appears to be present. Follow-up is recommended. Note is made of degenerative changes left humeral head. IMPRESSION: 1. Mild left upper lobe infiltrate. Correlate for pneumonia. Continued follow-up is recommended.
[2023-01-28 12:41] LABS: Glucose,Whole Blood 171 mg/dL (70-110)
[2023-01-28] MEDS: ATORVASTATIN 40 MG TAB PO SCH (14:02)
[2023-01-28] MEDS: MULTIVITAMINS, THERA 1 EACH TAB PO SCH (14:02)
[2023-01-28] MEDS: VITAMIN E (DL,TOCOPHERYL ACET) 400 UNIT (180 MG) CAP PO SCH (14:02)
[2023-01-28] MEDS: CHOLECALCIFEROL 125 MCG (5000 IU) TABLET PO SCH (14:02)
[2023-01-28] MEDS: ANIDULAFUNGIN 100 MG in SODIUM CHLORIDE 0.9% 100 ML IVPB SCH (14:03)
[2023-01-28 15:29] LABS: Basophils # (A) 0.1 k/uL (0-0.2); Basophils % (A) 0 %; Eosinophils # (A) 0.1 k/uL (0-0.7); Eosinophils % (A) 0 %; HCT 32.4 % (34.0-46.0); HGB 10.5 gm/dL (11.4-16.0); Lymphocytes # (A) 0.6 k/uL (1.0-4.8); Lymphocytes % (A) 2 %; MCH 29.4 pg (25.0-35.0); MCHC 32.3 g/dL (31.0-37.0); MCV 91.1 fL (80.0-100.0); Mean Platelet Volume 7.5; Monocytes # (A) 0.5 k/uL (0-1.0); Monocytes % (A) 2 %; Neutrophils # (A) 23.4 k/uL (1.3-7.7); Neutrophils % (A) 94 %; Platelet Count 501 k/uL (150-450); RBC 3.56 m/uL (3.80-5.40); RDW 14.8 % (11.5-15.5); WBC 24.9 k/uL (3.8-10.6)
[2023-01-28 15:34] LABS: Lactic Acid, Venous 1.6 mmol/L (0.7-2.0)
[2023-01-28 15:35] LABS: Albumin 3.2 g/dL (3.5-5.0); Calcium 8.5 mg/dL (8.4-10.2); Potassium 4.7 mmol/L (3.5-5.1); Total Bilirubin 0.8 mg/dL (0.2-1.3); Total Protein 6.6 g/dL (6.3-8.2)
[2023-01-28] MEDS ORDERED: propofoL 100 ML IV ONE (16:04)
[2023-01-28] MEDS ORDERED: SODIUM CHLORIDE 0.9% 1,000 ML IV ONE (16:06)
--- NOTE | 2023-01-28 16:08 | P.PN ---
Subjective Progress Note Date: 01/28/23 Principal diagnosis: Ischemic colitis patient is a 67-year-old female with a past medical history significant for type 2 diabetes mellitus COPD morbid obesity did have a history of right below the knee amputation and left big toe amputation history of smoking presenting to the hospital with a 2-week history of abdominal pain , patient has been diagnosed with ischemic colitis in this patient with status post subtotal colectomy and ileostomy. Patient has been extubated as of 01/23/2023 On today's evaluation that is 01/28/2023, the patient did have a significant wor sening of her clinical condition she did spike a fever of 101F the patient slightly restless and is requiring supplemental oxygen but no need for any pressor at this point patient was unable to answer any question or vomiting has been reported did have output in her ileostomy Objective - Vital Signs Vital signs: Vital Signs Temp 101.4 F H 01/28/23 13:54 Pulse 128 H 01/28/23 13:54 Resp 34 H 01/28/23 13:54 BP 132/64 01/28/23 13:54 Pulse Ox 94 L 01/28/23 13:54 FiO2 30 01/23/23 11:04 Intake & Output 01/27/23 01/28/23 01/28/23 18:59 06:59 18:59 Intake Total 1310 1300 870 Output Total 1360 450 535 Balance -50 850 335 Intake: IV 660 1300 870 ACETAMINOPHEN IV (For NPO 100 100 100 ) 1,000 mg In Empty Bag 1 bag @ 400 mls/hr IVPB Q6H [facility] Rx#:[id number] Anidulafungin 100 mg In 100 Sodium Chloride 0.9% 100 ml @ 84 mls/hr IVPB DAILY @1500 [facility] Rx#:[id number] Sodium Chloride 0.9% 1, 560 1200 500 000 ml @ 100 mls/hr IV . Q10H [facility] Rx#:[id number] Sodium Chloride 0.9% 1, 170 000 ml @ 75 mls/hr IV . [id number] [facility] Rx#:[id number] Intake, IV Titration 200 Amount Anidulafungin 200 mg In 200 Sodium Chloride 0.9% 200 ml @ 84 mls/hr IVPB ONCE ONE Rx#:[id number] Oral 450 Output: Drainage 675 235 Left Lower Abdomen 675 235 Medial Abdomen 0 Urine 235 450 300 Stool 50 Emesis 400 Other: Voiding Method Indwelling Catheter Indwelling Catheter Indwelling Catheter ABP, PAP, CO, CI - Last Documented Arterial Blood Pressure 116/51 - Exam GENERAL DESCRIPTION: An elderly female lying in bed in no distress RESPIRATORY SYSTEM: Unlabored breathing , coarse breath sounds bilaterally HEART: S1 S2 regular rate and rhythm , ABDOMEN: Soft , midline incision looks clean EXTREMITIES: Right BK stump incision is healed - Labs CBC & Chem 7: 01/28/23 15:10 01/28/23 15:10 Labs: Abnormal Lab Results - Last 24 Hours (Table) 01/27/23 01/27/23 01/27/23 Range/Units 15:29 15:29 16:54 WBC (3.8-10.6) k/uL RBC (3.80-5.40) m/uL Hgb (11.4-16.0) gm/dL Hct (34.0-46.0) % Neutrophils # (1.3-7.7) k/uL Lymphocytes # (1.0-4.8) k/uL Sodium (137-145) mmol/L Carbon Dioxide (22-30) mmol/L BUN (7-17) mg/dL Creatinine (0.52-1.04) mg/dL Glucose (74-99) mg/dL POC Glucose (mg/dL) 131 H (70-110) mg/dL Phosphorus (2.5-4.5) mg/dL Urine Protein 1+ H (Negative) Urine Blood Trace H (Negative) Ur Leukocyte Esterase Large H (Negative) Urine WBC 33 H (0-5) /hpf Urine Bacteria Rare H (None) /hpf Urine Yeast (Budding) Few H (None) /hpf Ur Random Sodium <20 L (40-220) mmol/L 01/27/23 01/28/23 01/28/23 Range/Units 23:47 04:50 04:50 WBC 22.9 H (3.8-10.6) k/uL RBC 3.45 L (3.80-5.40) m/uL Hgb 10.2 L (11.4-16.0) gm/dL Hct 32.0 L (34.0-46.0) % Neutrophils # 20.9 H (1.3-7.7) k/uL Lymphocytes # 0.9 L (1.0-4.8) k/uL Sodium 130 L (137-145) mmol/L Carbon Dioxide 19 L (22-30) mmol/L BUN 49 H (7-17) mg/dL Creatinine 2.07 H (0.52-1.04) mg/dL Glucose 129 H (74-99) mg/dL POC Glucose (mg/dL) 132 H (70-110) mg/dL Phosphorus 4.9 H (2.5-4.5) mg/dL Urine Protein (Negative) Urine Blood (Negative) Ur Leukocyte Esterase (Negative) Urine WBC (0-5) /hpf Urine Bacteria (None) /hpf Urine Yeast (Budding) (None) /hpf Ur Random Sodium (40-220) mmol/L 01/28/23 01/28/23 01/28/23 Range/Units 05:59 08:57 11:58 WBC (3.8-10.6) k/uL RBC (3.80-5.40) m/uL Hgb (11.4-16.0) gm/dL Hct (34.0-46.0) % Neutrophils # (1.3-7.7) k/uL Lymphocytes # (1.0-4.8) k/uL Sodium (137-145) mmol/L Carbon Dioxide (22-30) mmol/L BUN (7-17) mg/dL Creatinine (0.52-1.04) mg/dL Glucose (74-99) mg/dL POC Glucose (mg/dL) 147 H 159 H 177 H (70-110) mg/dL Phosphorus (2.5-4.5) mg/dL Urine Protein (Negative) Urine Blood (Negative) Ur Leukocyte Esterase (Negative) Urine WBC (0-5) /hpf Urine Bacteria (None) /hpf Urine Yeast (Budding) (None) /hpf Ur Random Sodium (40-220) mmol/L 01/28/23 Range/Units 12:39 WBC (3.8-10.6) k/uL RBC (3.80-5.40) m/uL Hgb (11.4-16.0) gm/dL Hct (34.0-46.0) % Neutrophils # (1.3-7.7) k/uL Lymphocytes # (1.0-4.8) k/uL Sodium (137-145) mmol/L Carbon Dioxide (22-30) mmol/L BUN (7-17) mg/dL Creatinine (0.52-1.04) mg/dL Glucose (74-99) mg/dL POC Glucose (mg/dL) 171 H (70-110) mg/dL Phosphorus (2.5-4.5) mg/dL Urine Protein (Negative) Urine Blood (Negative) Ur Leukocyte Esterase (Negative) Urine WBC (0-5) /hpf Urine Bacteria (None) /hpf Urine Yeast (Budding) (None) /hpf Ur Random Sodium (40-220) mmol/L Assessment and Plan (1) Ischemic colitis Current Visit: Yes Status: Acute Code(s): K55.9 - VASCULAR DISORDER OF INTESTINE, UNSPECIFIED SNOMED Code(s): 32689495 (2) Sepsis Current Visit: No Status: Acute Code(s): A41.9 - SEPSIS, UNSPECIFIED ORGANISM SNOMED Code(s): 48685032 Plan: 1patient presented to hospital abdominal pain has been diagnosed with ischemic colitis in this patient infusion of septic shock with low-grade fever tachycardia elevated white count elevated lactic acid source being ischemic large bowel status post subtotal colectomy and end ileostomy we will need to cover for the enteric gram-negative both aerobes and anaerobes abdominal culture, which are so far pending 2-patient did have a new fever, the patient IG has been discontinued we will repeat the culture we will add daptomycin to cover for gram-positive continue with the Zosyn and Eraxis monitor clinical course closely Time with Patient: Less than 30
[2023-01-28] MEDS ORDERED: NOREPINEPHRIN 4 MG-0.9% NS PMX 4 MG/250 ML ML IV ONE (16:10)
[2023-01-28 16:17] LABS: Glucose,Whole Blood 202 mg/dL (70-110)
[2023-01-28] MEDS ORDERED: SODIUM BICARB 8.4% 50 ML SYR (1 MEQ/ML) ONE (16:20)
[2023-01-28] MEDS ORDERED: EPINEPHrine 10 ML SYRINGE (0.1 MG/ML) ONE (16:20)
--- NOTE | 2023-01-28 16:35 | P.PN ---
Subjective Progress Note Date: 01/28/23 Patient is evaluated today in the intensive care unit with family at the bedside. Patient is holding for a med/surg bed. Remains on IV anidulafungin, IV zosyn. Postoperative day #8 subtotal colectomy secondary to ischemic bowel. TPN has been discontinued patient has been started on ground diet and tolerating. She is making some stool from the ostomy. YASMINE drain in place. Patient has a white count of 22.4 today. Hemoglobin stable at 10.0. Sodium is down to 129, BUN 44, creatinine 1.83. Blood glucose of 176. Magnesium 2.1. Alk phos remains elevated, AST/ALT have normalized. 01/28/2023 Patient is evaluated today sitting up in chair. Patient is postoperative day #9 subtotal colectomy secondary to ischemic bowel. Patient is lethargic today answering questions with 1 to 2 word answers. Nursing reports patient as "twitching" intermittently possibly a myoclonus jerking. White count remains elevated at 22.9 today, with hemoglobin of 10.2. Sodium is 130, BUN of 49 and creatinine of 2.07. Patient was given normal saline overnight at 75 mls/hr and had worsening creatinine. Patient had repeat blood culture done yesterday and also had a repeat urinalysis done which shows improvement. Patient has remained on IV anidulafungin and also IV zosyn. The cultures so far have been negative. Patient is making stool from the ostomy and the surgical site is clean. The patient is having bowel sounds. Lung sounds are coarse and ronchi throughout. Patient is able to take a deeper cough when sitting up does need encouragement to use incentive spirometer. Patient has been tolerating oral diet. Remains afebrile, heart rate in the low 100s today, blood pressure 118/59, 93% on room air. Unable to complete a full review of systems patient is lethargic today sitting up in chair, answering questions in short 1 to 2 word answers. PHYSICAL EXAMINATION: GENERAL: The patient is alert and oriented x2-3, not in any acute distress. Well developed, well nourished. Patient is fatigued. HEENT: Pupils are round and equally reacting to light. EOMI. No scleral icterus. No conjunctival pallor. Normocephalic, atraumatic. No pharyngeal erythema. No thyromegaly. CARDIOVASCULAR: S1 and S2 present. No murmurs, rubs, or gallops. PULMONARY: Coarse scattered ronchi throughout no wheezing noted. ABDOMEN: Soft, nontender, nondistended, normoactive bowel sounds. No palpable organomegaly. Post surgical abdomen with ileostomy RLQ present there is brown loose stool. Surgical dressings intact. MUSCULOSKELETAL: No joint swelling or deformity. EXTREMITIES: Status right BKA. NEUROLOGICAL: Gross neurological examination did not reveal any focal deficits. Diffuse generalized weakness. Did not notice patient to be twitching during examination. patient is fatigued. SKIN: No rashes. Assessment and Plan Assessment Ischemic bowel with sepsis present on admission status post subtotal colectomy with ostomy formation Ischemic colitis Acute kidney injury Leukocytosis worsening, sepsis work up has been started with follow up blood cultures, urinalysis and chest xray Hyponatremia, likely hypovolemic Hypomagnesemia COPD History of hypertension Type 2 diabetes mellitus History of right BKA Opioid dependence Chronic and ongoing nicotine dependence GI prophylaxis DVT prophylaxis Lovenox Full Code Plan Gabapentin dose has been decreased Worsening creatinine today, nephrology is following Continue on IV antibiotics per infectious disease, repeat blood culture pending, follow up urinalysis shows improvement Lactic acid, procalcitonin, chest xray ordered Viral panel ordered Patient is given nicotine patch Continue IV fluids for now PT/OT on consultation Follow up speech/swallow evaluation to rule out aspiration [facility]. The impression and plan of care has been dictated by Dunia Mojica Nurse Practitioner as directed. Dr. Fam MD I have performed a history and physical examination and medical decision making of this patient, discussed the same with the dictator, and agree with the dictators assessment and plan as written, documented as a scribe. Based on total visit time, I have performed more than 50% of this visit. Objective - Vital Signs Vital signs: Vital Signs Temp 98.1 F 01/28/23 15:10 Pulse 125 H 01/28/23 15:27 Resp 35 H 01/28/23 14:00 BP 132/64 01/28/23 14:00 Pulse Ox 93 L 01/28/23 14:00 FiO2 100 01/28/23 16:02 Intake & Output 01/27/23 01/28/23 01/28/23 18:59 06:59 18:59 Intake Total 1310 1300 880 Output Total 1360 450 810 Balance -50 850 70 Intake: IV 660 1300 880 ACETAMINOPHEN IV (For NPO 100 100 100 ) 1,000 mg In Empty Bag 1 bag @ 400 mls/hr IVPB Q6H [facility] Rx#:[id number] Anidulafungin 100 mg In 100 Sodium Chloride 0.9% 100 ml @ 84 mls/hr IVPB DAILY @1500 [facility] Rx#:[id number] Sodium Chloride 0.9% 1, 560 1200 500 000 ml @ 100 mls/hr IV . Q10H [facility] Rx#:[id number] Sodium Chloride 0.9% 1, 180 000 ml @ 75 mls/hr IV . [id number] [facility] Rx#:[id number] Intake, IV Titration 200 Amount Anidulafungin 200 mg In 200 Sodium Chloride 0.9% 200 ml @ 84 mls/hr IVPB ONCE ONE Rx#:[id number] Oral 450 Output: Drainage 675 235 Left Lower Abdomen 675 235 Medial Abdomen 0 Urine 235 450 575 Stool 50 Emesis 400 Other: Voiding Method Indwelling Catheter Indwelling Catheter Indwelling Catheter ABP, PAP, CO, CI - Last Documented Arterial Blood Pressure 116/51 - Labs CBC & Chem 7: 01/28/23 15:10 01/28/23 15:10 Labs: Abnormal Lab Results - Last 24 Hours (Table) 01/27/23 01/27/23 01/27/23 Range/Units 15:29 16:54 23:47 WBC (3.8-10.6) k/uL RBC (3.80-5.40) m/uL Hgb (11.4-16.0) gm/dL Hct (34.0-46.0) % Plt Count (150-450) k/uL Neutrophils # (1.3-7.7) k/uL Lymphocytes # (1.0-4.8) k/uL Sodium (137-145) mmol/L Carbon Dioxide (22-30) mmol/L BUN (7-17) mg/dL Creatinine (0.52-1.04) mg/dL Glucose (74-99) mg/dL POC Glucose (mg/dL) 131 H 132 H (70-110) mg/dL Phosphorus (2.5-4.5) mg/dL Alkaline Phosphatase (38-126) U/L Albumin (3.5-5.0) g/dL Ur Random Sodium <20 L (40-220) mmol/L 01/28/23 01/28/23 01/28/23 Range/Units 04:50 04:50 05:59 WBC 22.9 H (3.8-10.6) k/uL RBC 3.45 L (3.80-5.40) m/uL Hgb 10.2 L (11.4-16.0) gm/dL Hct 32.0 L (34.0-46.0) % Plt Count (150-450) k/uL Neutrophils # 20.9 H (1.3-7.7) k/uL Lymphocytes # 0.9 L (1.0-4.8) k/uL Sodium 130 L (137-145) mmol/L Carbon Dioxide 19 L (22-30) mmol/L BUN 49 H (7-17) mg/dL Creatinine 2.07 H (0.52-1.04) mg/dL Glucose 129 H (74-99) mg/dL POC Glucose (mg/dL) 147 H (70-110) mg/dL Phosphorus 4.9 H (2.5-4.5) mg/dL Alkaline Phosphatase (38-126) U/L Albumin (3.5-5.0) g/dL Ur Random Sodium (40-220) mmol/L 01/28/23 01/28/23 01/28/23 Range/Units 08:57 11:58 12:39 WBC (3.8-10.6) k/uL RBC (3.80-5.40) m/uL Hgb (11.4-16.0) gm/dL Hct (34.0-46.0) % Plt Count (150-450) k/uL Neutrophils # (1.3-7.7) k/uL Lymphocytes # (1.0-4.8) k/uL Sodium (137-145) mmol/L Carbon Dioxide (22-30) mmol/L BUN (7-17) mg/dL Creatinine (0.52-1.04) mg/dL Glucose (74-99) mg/dL POC Glucose (mg/dL) 159 H 177 H 171 H (70-110) mg/dL Phosphorus (2.5-4.5) mg/dL Alkaline Phosphatase (38-126) U/L Albumin (3.5-5.0) g/dL Ur Random Sodium (40-220) mmol/L 01/28/23 01/28/23 01/28/23 Range/Units 15:10 15:10 16:15 WBC 24.9 H (3.8-10.6) k/uL RBC 3.56 L (3.80-5.40) m/uL Hgb 10.5 L (11.4-16.0) gm/dL Hct 32.4 L (34.0-46.0) % Plt Count 501 H (150-450) k/uL Neutrophils # 23.4 H (1.3-7.7) k/uL Lymphocytes # 0.6 L (1.0-4.8) k/uL Sodium 132 L (137-145) mmol/L Carbon Dioxide 18 L (22-30) mmol/L BUN 52 H (7-17) mg/dL Creatinine 2.20 H (0.52-1.04) mg/dL Glucose 159 H (74-99) mg/dL POC Glucose (mg/dL) 202 H (70-110) mg/dL Phosphorus (2.5-4.5) mg/dL Alkaline Phosphatase 189 H (38-126) U/L Albumin 3.2 L (3.5-5.0) g/dL Ur Random Sodium (40-220) mmol/L Assessment and Plan Time with Patient: Greater than 30
[2023-01-28] MEDS ORDERED: CISATRACURIUM 2 MG/ML 5 ML VIAL IV ONE (16:37)
--- NOTE | 2023-01-28 16:41 | XR ---
EXAMINATION TYPE: XR chest 1V portable DATE OF EXAM: 01/28/2023 COMPARISON: None INDICATION: ET tube placement and OG tube placement TECHNIQUE: Single frontal view of the chest is obtained. FINDINGS: The heart size is normal. The pulmonary vasculature is normal. There may be some mild left lower lobe infiltrate likely on the basis of atelectasis. Endotracheal tu be is been placed, tip is within the right main bronchus. This should be pulled back 6 cm. Nasogastri c tube transverse the proximal tip in left upper quadrant of the abdomen. Report was called to the ICU by Dr. Kim by telephone at the time of interpretation. There are adalid re of the endotracheal tube placement. IMPRESSION: 1. Mild left lower lobe atelectasis. 2. Endotracheal tube tip in the right main bronchus and should be pulled back 6 cm.
[2023-01-28] MEDS ORDERED: SODIUM CHLORIDE 0.9% 2,000 ML IV ONE (16:45)
--- NOTE | 2023-01-28 16:57 | XR ---
EXAMINATION TYPE: XR chest 1V portable DATE OF EXAM: 01/28/2023 COMPARISON: 09/30/2022 but earlier exam INDICATION: Reposition ET tube TECHNIQUE: Single frontal view of the chest is obtained. FINDINGS: The heart size is normal. The pulmonary vasculature is normal. There is a left streak opacity may be some developing atelectasis. The subsegmental infiltrate at the posterior left lung base appears similar. Endotracheal tube is 1.1 cm above the aaron and can come back to centimeters. The nasogastric tube t ransverses the thorax. IMPRESSION: 1. Suggestion of atelectatic changes left mid and lower lung field. 2. Endotracheal tube tip 1.1 cm above the aaron. This could be pulled back 2 cm.
--- NOTE | 2023-01-28 16:58 | P.PN ---
Subjective Patient not seen today, went out for testing. Objective - Vital Signs Vital signs: Vital Signs Temp 98.1 F 01/28/23 15:10 Pulse 125 H 01/28/23 15:27 Resp 35 H 01/28/23 14:00 BP 132/64 01/28/23 14:00 Pulse Ox 93 L 01/28/23 14:00 FiO2 100 01/28/23 16:10 Intake & Output 01/27/23 01/28/23 01/28/23 18:59 06:59 18:59 Intake Total 1310 1300 880 Output Total 1360 450 810 Balance -50 850 70 Intake: IV 660 1300 880 ACETAMINOPHEN IV (For NPO 100 100 100 ) 1,000 mg In Empty Bag 1 bag @ 400 mls/hr IVPB Q6H [facility] Rx#:[id number] Anidulafungin 100 mg In 100 Sodium Chloride 0.9% 100 ml @ 84 mls/hr IVPB DAILY @1500 [facility] Rx#:[id number] Sodium Chloride 0.9% 1, 560 1200 500 000 ml @ 100 mls/hr IV . Q10H [facility] Rx#:[id number] Sodium Chloride 0.9% 1, 180 000 ml @ 75 mls/hr IV . [id number] [facility] Rx#:[id number] Intake, IV Titration 200 Amount Anidulafungin 200 mg In 200 Sodium Chloride 0.9% 200 ml @ 84 mls/hr IVPB ONCE ONE Rx#:[id number] Oral 450 Output: Drainage 675 235 Left Lower Abdomen 675 235 Medial Abdomen 0 Urine 235 450 575 Stool 50 Emesis 400 Other: Voiding Method Indwelling Catheter Indwelling Catheter Indwelling Catheter ABP, PAP, CO, CI - Last Documented Arterial Blood Pressure 116/51 - Labs CBC & Chem 7: 01/28/23 15:10 01/28/23 15:10 Labs: Abnormal Lab Results - Last 24 Hours (Table) 01/27/23 01/27/23 01/28/23 Range/Units 15:29 23:47 04:50 WBC 22.9 H (3.8-10.6) k/uL RBC 3.45 L (3.80-5.40) m/uL Hgb 10.2 L (11.4-16.0) gm/dL Hct 32.0 L (34.0-46.0) % Plt Count (150-450) k/uL Neutrophils # 20.9 H (1.3-7.7) k/uL Lymphocytes # 0.9 L (1.0-4.8) k/uL Sodium (137-145) mmol/L Carbon Dioxide (22-30) mmol/L BUN (7-17) mg/dL Creatinine (0.52-1.04) mg/dL Glucose (74-99) mg/dL POC Glucose (mg/dL) 132 H (70-110) mg/dL Phosphorus (2.5-4.5) mg/dL Alkaline Phosphatase (38-126) U/L Albumin (3.5-5.0) g/dL Ur Random Sodium <20 L (40-220) mmol/L 01/28/23 01/28/23 01/28/23 Range/Units 04:50 05:59 08:57 WBC (3.8-10.6) k/uL RBC (3.80-5.40) m/uL Hgb (11.4-16.0) gm/dL Hct (34.0-46.0) % Plt Count (150-450) k/uL Neutrophils # (1.3-7.7) k/uL Lymphocytes # (1.0-4.8) k/uL Sodium 130 L (137-145) mmol/L Carbon Dioxide 19 L (22-30) mmol/L BUN 49 H (7-17) mg/dL Creatinine 2.07 H (0.52-1.04) mg/dL Glucose 129 H (74-99) mg/dL POC Glucose (mg/dL) 147 H 159 H (70-110) mg/dL Phosphorus 4.9 H (2.5-4.5) mg/dL Alkaline Phosphatase (38-126) U/L Albumin (3.5-5.0) g/dL Ur Random Sodium (40-220) mmol/L 01/28/23 01/28/23 01/28/23 Range/Units 11:58 12:39 15:10 WBC 24.9 H (3.8-10.6) k/uL RBC 3.56 L (3.80-5.40) m/uL Hgb 10.5 L (11.4-16.0) gm/dL Hct 32.4 L (34.0-46.0) % Plt Count 501 H (150-450) k/uL Neutrophils # 23.4 H (1.3-7.7) k/uL Lymphocytes # 0.6 L (1.0-4.8) k/uL Sodium (137-145) mmol/L Carbon Dioxide (22-30) mmol/L BUN (7-17) mg/dL Creatinine (0.52-1.04) mg/dL Glucose (74-99) mg/dL POC Glucose (mg/dL) 177 H 171 H (70-110) mg/dL Phosphorus (2.5-4.5) mg/dL Alkaline Phosphatase (38-126) U/L Albumin (3.5-5.0) g/dL Ur Random Sodium (40-220) mmol/L 01/28/23 01/28/23 Range/Units 15:10 16:15 WBC (3.8-10.6) k/uL RBC (3.80-5.40) m/uL Hgb (11.4-16.0) gm/dL Hct (34.0-46.0) % Plt Count (150-450) k/uL Neutrophils # (1.3-7.7) k/uL Lymphocytes # (1.0-4.8) k/uL Sodium 132 L (137-145) mmol/L Carbon Dioxide 18 L (22-30) mmol/L BUN 52 H (7-17) mg/dL Creatinine 2.20 H (0.52-1.04) mg/dL Glucose 159 H (74-99) mg/dL POC Glucose (mg/dL) 202 H (70-110) mg/dL Phosphorus (2.5-4.5) mg/dL Alkaline Phosphatase 189 H (38-126) U/L Albumin 3.2 L (3.5-5.0) g/dL Ur Random Sodium (40-220) mmol/L
--- NOTE | 2023-01-28 17:03 | XR ---
EXAMINATION TYPE: XR abdomen 1V DATE OF EXAM: 01/28/2023 COMPARISON: 09/03/2022, CT 01/19/2023 INDICATION: Post colectomy TECHNIQUE: Single view abdomen supine view. There is motion artifact present causing limitation in th e evaluation. FINDINGS: Nonspecific small bowel gas containing air is present. Multiple surgical skin tray are in the abdo men. Postfixation lumbar spine changes are present. Psoas margins are not well visualized. Organomegaly is not evident. Psoas margins appear normal. IMPRESSION: 1. Nonspecific abdomen.
[2023-01-28 17:13] LABS: ABG Base Excess -8.5 mmol/L; ABG HCO3 20 mmol/L (21-25); ABG Oxygen Saturation 99.7 % (94-97); ABG PCO2 51 mmHg (35-45); ABG PO2 273 mmHg (83-108); ABG TCO2 21 mmol/L (19-24); Allen Test Performed? Yes
[2023-01-28] MEDS: FLUoxetine HCL 20 MG CAP PO SCH (17:36)
--- NOTE | 2023-01-28 18:03 | P.PN ---
Progress Note - Text Progress Note Date: 01/28/23 Patient cardiac arrest at 1620, epi given 1, bicarb given 1, patient had ROSC by 1623. Patient had ROSC prior to my arrival. On arrival, chest x-ray read. Patient's ET tube was placed within the right main stem bronchus, requested to retract ET tube. Patient was also given IV fluid boluses, and sedation. She is likely in septic shock, currently on broad-spectrum antibiotics and on vasopressors.
--- NOTE | 2023-01-28 18:28 | CT ---
EXAMINATION TYPE: CT ChestAbdPelvis wo con DATE OF EXAM: 01/28/2023 INDICATION: Change in vitals since surgery COMPARISON: CT DLP: 1346.8 mGycm CONTRAST: Performed without Oral Contrast. TECHNIQUE: Axial images at 5 mm thick sections. Reconstructed images in the coronal plane. Delayed images through the kidneys. FINDINGS: CT CHEST: Portion of the thyroid visualized is normal. Streak opacities in the posterior medial left lung base. Some streak opacities in the medial right jamila ng base. Correlate for atelectasis. Underlying nodules on the left may be present including a 1.0 cm nodule, series 201 image 34 and a 0.7 cm nodule, image 27 series 201. No enlarged mediastinal or hilar adenopathy is evident. The ascending aorta diameter at the level of the main pulmonary artery is 3.6 cm. The main pulmonary artery diameter at the bifurcation is 2.7 cm. Coronary artery calcification is noted. CT ABDOMEN: Stomach is largely distended with fluid. Fluid filled esophagus is evident. Duodenum is s omewhat prominent. There are multiple dilated small bowel loops with scattered air-fluid levels. The distal ileum is slightly less dilated but remains prominent. Correlate for ileus. Liver: Normal Spleen: Normal Pancreas: Normal Adrenal glands: The adrenal glands are normal. Gallbladder: Not identified Kidneys: No masses are evident. No hydronephrosis is present. No cysts are present. No renal stone s are identified Aorta: Vascular calcification is within the aorta. Inferior vena cava: Normal. CT PELVIS: The colon has a more normal caliber. Drainage catheter is within the lower pelvis. Appendix: Not identified. No dilated tubular structure is evident. Urinary bladder: Decompressed and thick-walled. There is present within the urinary bladder. A Garcia catheter is present. Genitourinary structures: Uterus and ovaries are not identified. Osseous structures: No suspicious lytic or sclerotic lesions. Facet degenerative changes are present. IMPRESSIONS: 1. Fluid-filled dilated small bowel loops to the level of the colon. Findings appear more suggestive for ileus. 2. Streak atelectasis posterior lungs. Underlying nodularity is not excluded and follow-up is recomme nded. 3. Thickened urinary bladder wall. The urinary bladder is decompressed with a Garcia catheter and cont ains air. Follow-up can reevaluate wall thickening..
[2023-01-28] MEDS: NOREPINEPHRINE 4 MG in SODIUM CHLORIDE 0.9% 250 ML IV SCH ×2 (18:30→22:16)
[2023-01-28 20:20] LABS: ABG Base Excess -7.5 mmol/L; ABG HCO3 18 mmol/L (21-25); ABG Oxygen Saturation 96.2 % (94-97); ABG PCO2 35 mmHg (35-45); ABG PH 7.33 (7.35-7.45); ABG PO2 83 mmHg (83-108); ABG TCO2 20 mmol/L (19-24); Allen Test Performed? Yes
[2023-01-28] MEDS: GABAPENTIN 100 MG CAP PO SCH (20:32)
[2023-01-28] MEDS: QUEtiapine 200 MG TAB PO SCH (20:33)
[2023-01-28] MEDS: CHLORHEXIDINE GLUCONATE 15 ML CUP MUCOUS MEM SCH (20:45)
[2023-01-28 20:50] LABS: Glucose,Whole Blood 150 mg/dL (70-110)
[2023-01-28] MEDS ORDERED: GABAPENTIN 100 MG CAP PO SCH (21:00)
[2023-01-28 23:32] LABS: Glucose,Whole Blood 100 mg/dL (70-110)
[2023-01-29] MEDS: IPRATROPIUM-ALBUTEROL 3 ML NEB INHALATION PRN ×2 (00:08→03:49)
[2023-01-29] MEDS: PIPERACILLIN-TAZOBACTAM 3.375 GM in SODIUM CHLORIDE 0.9% 100 ML IVPB SCH ×3 (00:26→17:51)
[2023-01-29] MEDS: ACETAMINOPHEN IV (For NPO) 1,000 MG in EMPTY BAG 1 BAG IVPB SCH ×4 (02:06→20:13)
[2023-01-29] MEDS: NOREPINEPHRINE 4 MG in SODIUM CHLORIDE 0.9% 250 ML IV SCH (03:22)
[2023-01-29 04:54] LABS: Basophils # (A) 0.1 k/uL (0-0.2); Basophils % (A) 0 %; Eosinophils # (A) 0.1 k/uL (0-0.7); Eosinophils % (A) 0 %; HCT 25.5 % (34.0-46.0); Lymphocytes # (A) 0.7 k/uL (1.0-4.8); Lymphocytes % (A) 3 %; MCH 29.8 pg (25.0-35.0); MCHC 32.7 g/dL (31.0-37.0); MCV 91.3 fL (80.0-100.0); Mean Platelet Volume 7.6; Monocytes # (A) 0.4 k/uL (0-1.0); Monocytes % (A) 2 %; Neutrophils # (A) 19.3 k/uL (1.3-7.7); Neutrophils % (A) 93 %; Platelet Count 379 k/uL (150-450); RDW 14.7 % (11.5-15.5); WBC 20.8 k/uL (3.8-10.6)
[2023-01-29 05:03] LABS: HGB 8.4 gm/dL (11.4-16.0)
[2023-01-29 05:30] LABS: Albumin 2.3 g/dL (3.5-5.0); Calcium 7.3 mg/dL (8.4-10.2); Magnesium 1.6 mg/dL (1.6-2.3); Phosphorus 5.4 mg/dL (2.5-4.5); Potassium 3.9 mmol/L (3.5-5.1); Total Bilirubin 0.8 mg/dL (0.2-1.3); Total Protein 5.1 g/dL (6.3-8.2)
[2023-01-29] MEDS: INSULIN ASPART (NovoLOG) 100 UNIT/ML VIAL SQ SCH ×3 (05:48→17:42)
[2023-01-29 05:56] LABS: ABG Base Excess -7.7 mmol/L; ABG HCO3 18 mmol/L (21-25); ABG Oxygen Saturation 98.5 % (94-97); ABG PCO2 30 mmHg (35-45); ABG PH 7.38 (7.35-7.45); ABG PO2 109 mmHg (83-108); ABG TCO2 18 mmol/L (19-24); Allen Test Performed? Yes
[2023-01-29] MEDS: MAGNESIUM SULFATE-D5W PMX 1 GM in DEXTROSE/WATER 1 100ML.BAG IVPB SCH ×2 (06:29→08:02)
[2023-01-29] MEDS: INSULIN DETEMIR (LEVEMIR) 100 UNIT/ML SYR SQ SCH ×2 (06:33→20:13)
--- NOTE | 2023-01-29 07:38 | P.PCN ---
Date of Procedure: 01/28/23 Preoperative Diagnosis: hypotension Postoperative Diagnosis: hypotension Procedure(s) Performed: Insertion of right radial arterial line Indications for Procedure: Continuous blood pressure monitoring and frequent blood draws Description of Procedure: An informed consent was obtained, and a procedural time out was performed. The patient was placed in supine position. The right radial region was prepared in a sterile fashion, and a sterile drape was applied. The right radial artery was palpated, easily cannulated, and a guidewire was placed. A Cook catheter was inserted over the guidewire, and the guidewire was removed. There was good arterial blood flow, good arterial waveform, and no complications. The line was secured with using a 3-0 silk suture.
[2023-01-29] MEDS: IPRATROPIUM-ALBUTEROL 3 ML NEB INHALATION SCH ×4 (07:51→19:50)
--- NOTE | 2023-01-29 08:30 | XR ---
EXAMINATION TYPE: XR chest 1V portable DATE OF EXAM: 01/29/2023 COMPARISON: 01/28/2023 HISTORY: Tube placement TECHNIQUE: Single frontal view of the chest is obtained. FINDINGS: ET tube approximately 6 cm above aaron. NG tube appears in good position. Arthropathy thr ough the left shoulder. Diffuse interstitial pattern bilaterally infiltrate pleural effusion. Osseous structures are stable. IMPRESSION: 1. ET tube in good position. 2. progressive bilateral areas of infiltrate and small effusion correlate for diffuse pneumonia versu s CHF.
--- NOTE | 2023-01-29 08:45 | P.PN ---
Subjective Progress Note Date: 01/29/23 Principal diagnosis: Abdominal pain This is a 67-year-old female who presented to the emergency department with complaints of abdominal pain and had not had a bowel movement for multiple days. Patient was found to have an ischemic bowel. She did have a total abdominal colectomy with ileostomy by Dr. Larsen. She did require mechanical ventilation. She does have a significant history of COPD and diabetes, and is a tobacco user. 01/29/23 Yesterday patient had a cardiac arrest while undergoing a computed tomography scan. 3 L of brown fluid removed from NG tube. Ileus was found on the computed tomography scan. Patient is reintubated and remains in the ICU. Objective - Vital Signs Vital signs: Vital Signs Temp 98.0 F 01/29/23 08:00 Pulse 94 01/29/23 08:07 Resp 19 01/29/23 08:00 BP 122/53 01/29/23 08:00 Pulse Ox 99 01/29/23 08:00 FiO2 50 01/29/23 08:00 Intake & Output 01/28/23 01/29/23 01/29/23 18:59 06:59 18:59 Intake Total 3989.801 2734.363 231.636 Output Total 4310 1920 150 Balance -320.199 814.363 81.636 Weight 84 kg Intake: IV 3980 1800 175 ACETAMINOPHEN IV (For NPO 100 800 ) 1,000 mg In Empty Bag 1 bag @ 400 mls/hr IVPB Q6H [facility] Rx#:[id number] Anidulafungin 100 mg In 100 Sodium Chloride 0.9% 100 ml @ 84 mls/hr IVPB DAILY @1500 [facility] Rx#:[id number] DAPTOmycin 400 mg In 50 Sodium Chloride 0.9% 50 ml @ 100 mls/hr IVPB Q48H [facility] Rx#:[id number] Magnesium Sulfate-D5w Pmx 100 100 1 gm In Dextrose/Water 1 100ml.bag @ 100 mls/hr IVPB Q1H [facility] Rx#: [id number] Piperacillin-Tazobactam 3 100 100 .375 gm In Sodium Chloride 0.9% 100 ml @ 25 mls/hr IVPB Q8HR [facility] Rx# :[id number] Sodium Chloride 0.9% 1, 500 000 ml @ 100 mls/hr IV . Q10H [facility] Rx#:[id number] Sodium Chloride 0.9% 1, 180 750 75 000 ml @ 75 mls/hr IV . [id number] [facility] Rx#:[id number] Sodium Chloride 0.9% 1, 1000 000 ml @ 999 mls/hr IV . Q1H1M [facility] Rx#:[id number] Sodium Chloride 0.9% 2, 2000 000 ml @ 999 mls/hr IV . Q2H1M [facility] Rx#:[id number] Intake, IV Titration 9.801 934.363 56.636 Amount Norepinephrine 4 mg In 9.801 597.047 56.636 Sodium Chloride 0.9% 250 ml @ 0.03 MCG/KG/MIN 10. 024 mls/hr IV .Q24H [facility] Rx#:[id number] propofoL 1,000 mg In 337.316 Empty Bag 1 bag @ 15 MCG/ KG/MIN 7.893 mls/hr IV . [id number] [facility] Rx#:[id number] Output: Gastric Drainage 3000 900 Drainage 285 60 Left Lower Abdomen 285 60 Urine 725 960 150 Emesis 300 Other: Voiding Method Indwelling Catheter Indwelling Catheter ABP, PAP, CO, CI - Last Documented Arterial Blood Pressure 162/42 - Constitutional General appearance: Present: no acute distress - Respiratory Respiratory: bilateral: CTA - Cardiovascular Rhythm: regular Heart sounds: normal: S1, S2 - Gastrointestinal General gastrointestinal: Present: soft - Integumentary Integumentary: Present: normal, normal turgor - Labs CBC & Chem 7: 01/29/23 04:30 01/29/23 04:30 Labs: Abnormal Lab Results - Last 24 Hours (Table) 01/27/23 01/28/23 01/28/23 Range/Units 15:29 08:57 11:58 WBC (3.8-10.6) k/uL RBC (3.80-5.40) m/uL Hgb (11.4-16.0) gm/dL Hct (34.0-46.0) % Plt Count (150-450) k/uL Neutrophils # (1.3-7.7) k/uL Lymphocytes # (1.0-4.8) k/uL ABG pH (7.35-7.45) ABG pCO2 (35-45) mmHg ABG pO2 (83-108) mmHg ABG HCO3 (21-25) mmol/L ABG Total CO2 (19-24) mmol/L ABG O2 Saturation (94-97) % Sodium (137-145) mmol/L Carbon Dioxide (22-30) mmol/L BUN (7-17) mg/dL Creatinine (0.52-1.04) mg/dL Glucose (74-99) mg/dL POC Glucose (mg/dL) 159 H 177 H (70-110) mg/dL Calcium (8.4-10.2) mg/dL Phosphorus (2.5-4.5) mg/dL Alkaline Phosphatase (38-126) U/L Total Protein (6.3-8.2) g/dL Albumin (3.5-5.0) g/dL Ur Random Sodium <20 L (40-220) mmol/L 01/28/23 01/28/23 01/28/23 Range/Units 12:39 15:10 15:10 WBC 24.9 H (3.8-10.6) k/uL RBC 3.56 L (3.80-5.40) m/uL Hgb 10.5 L (11.4-16.0) gm/dL Hct 32.4 L (34.0-46.0) % Plt Count 501 H (150-450) k/uL Neutrophils # 23.4 H (1.3-7.7) k/uL Lymphocytes # 0.6 L (1.0-4.8) k/uL ABG pH (7.35-7.45) ABG pCO2 (35-45) mmHg ABG pO2 (83-108) mmHg ABG HCO3 (21-25) mmol/L ABG Total CO2 (19-24) mmol/L ABG O2 Saturation (94-97) % Sodium 132 L (137-145) mmol/L Carbon Dioxide 18 L (22-30) mmol/L BUN 52 H (7-17) mg/dL Creatinine 2.20 H (0.52-1.04) mg/dL Glucose 159 H (74-99) mg/dL POC Glucose (mg/dL) 171 H (70-110) mg/dL Calcium (8.4-10.2) mg/dL Phosphorus (2.5-4.5) mg/dL Alkaline Phosphatase 189 H (38-126) U/L Total Protein (6.3-8.2) g/dL Albumin 3.2 L (3.5-5.0) g/dL Ur Random Sodium (40-220) mmol/L 01/28/23 01/28/23 01/28/23 Range/Units 16:15 17:11 20:14 WBC (3.8-10.6) k/uL RBC (3.80-5.40) m/uL Hgb (11.4-16.0) gm/dL Hct (34.0-46.0) % Plt Count (150-450) k/uL Neutrophils # (1.3-7.7) k/uL Lymphocytes # (1.0-4.8) k/uL ABG pH 7.20 L 7.33 L (7.35-7.45) ABG pCO2 51 H (35-45) mmHg ABG pO2 273 H (83-108) mmHg ABG HCO3 20 L 18 L (21-25) mmol/L ABG Total CO2 (19-24) mmol/L ABG O2 Saturation 99.7 H (94-97) % Sodium (137-145) mmol/L Carbon Dioxide (22-30) mmol/L BUN (7-17) mg/dL Creatinine (0.52-1.04) mg/dL Glucose (74-99) mg/dL POC Glucose (mg/dL) 202 H (70-110) mg/dL Calcium (8.4-10.2) mg/dL Phosphorus (2.5-4.5) mg/dL Alkaline Phosphatase (38-126) U/L Total Protein (6.3-8.2) g/dL Albumin (3.5-5.0) g/dL Ur Random Sodium (40-220) mmol/L 01/28/23 01/29/23 01/29/23 Range/Units 20:48 04:30 04:30 WBC 20.8 H (3.8-10.6) k/uL RBC 2.80 L (3.80-5.40) m/uL Hgb 8.4 L D (11.4-16.0) gm/dL Hct 25.5 L (34.0-46.0) % Plt Count (150-450) k/uL Neutrophils # 19.3 H (1.3-7.7) k/uL Lymphocytes # 0.7 L (1.0-4.8) k/uL ABG pH (7.35-7.45) ABG pCO2 (35-45) mmHg ABG pO2 (83-108) mmHg ABG HCO3 (21-25) mmol/L ABG Total CO2 (19-24) mmol/L ABG O2 Saturation (94-97) % Sodium 135 L (137-145) mmol/L Carbon Dioxide 15 L (22-30) mmol/L BUN 46 H (7-17) mg/dL Creatinine 2.14 H (0.52-1.04) mg/dL Glucose (74-99) mg/dL POC Glucose (mg/dL) 150 H (70-110) mg/dL Calcium 7.3 L (8.4-10.2) mg/dL Phosphorus 5.4 H (2.5-4.5) mg/dL Alkaline Phosphatase (38-126) U/L Total Protein 5.1 L (6.3-8.2) g/dL Albumin 2.3 L (3.5-5.0) g/dL Ur Random Sodium (40-220) mmol/L 01/29/23 Range/Units 06:00 WBC (3.8-10.6) k/uL RBC (3.80-5.40) m/uL Hgb (11.4-16.0) gm/dL Hct (34.0-46.0) % Plt Count (150-450) k/uL Neutrophils # (1.3-7.7) k/uL Lymphocytes # (1.0-4.8) k/uL ABG pH (7.35-7.45) ABG pCO2 30 L (35-45) mmHg ABG pO2 109 H (83-108) mmHg ABG HCO3 18 L (21-25) mmol/L ABG Total CO2 18 L (19-24) mmol/L ABG O2 Saturation 98.5 H (94-97) % Sodium (137-145) mmol/L Carbon Dioxide (22-30) mmol/L BUN (7-17) mg/dL Creatinine (0.52-1.04) mg/dL Glucose (74-99) mg/dL POC Glucose (mg/dL) (70-110) mg/dL Calcium (8.4-10.2) mg/dL Phosphorus (2.5-4.5) mg/dL Alkaline Phosphatase (38-126) U/L Total Protein (6.3-8.2) g/dL Albumin (3.5-5.0) g/dL Ur Random Sodium (40-220) mmol/L Assessment and Plan (1) Ischemic bowel disease Current Visit: Yes Status: Acute Code(s): K55.9 - VASCULAR DISORDER OF INTESTINE, UNSPECIFIED SNOMED Code(s): 97242705 (2) COPD (chronic obstructive pulmonary disease) Current Visit: No Status: Acute Code(s): J44.9 - CHRONIC OBSTRUCTIVE PULMONARY DISEASE, UNSPECIFIED SNOMED Code(s): 40228060 (3) Type 2 diabetes mellitus Current Visit: No Status: Acute Code(s): E11.9 - TYPE 2 DIABETES MELLITUS WITHOUT COMPLICATIONS SNOMED Code(s): 17131017 (4) Ischemic colitis Current Visit: Yes Status: Acute Code(s): K55.9 - VASCULAR DISORDER OF [place], UNSPECIFIED SNOMED Code(s): 53367343 (5) History of below-knee amputation of right lower extremity Current Visit: No Status: Acute Code(s): Z89.511 - ACQUIRED ABSENCE OF RIGHT LEG BELOW KNEE SNOMED Code(s): 284916687018870 (6) Opioid dependence Current Visit: No Status: Acute Code(s): F11.20 - OPIOID DEPENDENCE, UNCOMPLICATED SNOMED Code(s): 15476935 Plan: Appreciate multiple consultants. Check labs in the a.m. Patient seen and evaluated by nurse practitioner, physician in agreement with plan
[2023-01-29] MEDS: PANTOPRAZOLE 40 MG/10 ML VIAL IV SCH (08:55)
[2023-01-29] MEDS: ENOXAPARIN 30 MG/0.3 ML SYRINGE SQ SCH ×2 (08:55→09:52)
[2023-01-29] MEDS: NICOTINE 21MG/24HR PATCH TRANSDERM SCH (08:56)
[2023-01-29] MEDS: CHLORHEXIDINE GLUCONATE 15 ML CUP MUCOUS MEM SCH ×2 (08:56→20:13)
[2023-01-29] MEDS: TOPIRAMATE 25 MG TAB PO SCH ×2 (09:00→20:10)
[2023-01-29] MEDS: GABAPENTIN 100 MG CAP PO SCH ×2 (09:00→20:09)
[2023-01-29] MEDS: LEVOTHYROXINE 88 MCG TAB PO SCH (09:00)
[2023-01-29] MEDS: LORATADINE 10 MG TAB PO SCH (09:00)
[2023-01-29] MEDS: OXYBUTYNIN 10 MG TAB.ER.24 PO SCH (09:00)
--- NOTE | 2023-01-29 09:02 | P.PN ---
Subjective Patient is seen in follow-up for acute kidney injury. Patient vomited about 4 L of fluid yesterday and was also given 4 L of IV fluids in return. She was subsequently intubated and had a brief PEA arrest with down time of about 3-5 minutes. She is currently intubated. She is off vasopressors. She is on normal saline. Nonoliguric. Vital signs are stable. General: Resting in bed. HEENT: Intubated. LUNGS: Scattered rhonchi. HEART: Rate and Rhythm are regular. ABDOMEN: Ileostomy noted. EXTREMITITES: No edema. Right BKA. Objective - Vital Signs Vital signs: Vital Signs Temp 98.0 F 01/29/23 08:00 Pulse 94 01/29/23 08:07 Resp 19 01/29/23 08:00 BP 122/53 01/29/23 08:00 Pulse Ox 99 01/29/23 08:00 FiO2 50 01/29/23 08:00 Intake & Output 01/28/23 01/29/23 01/29/23 18:59 06:59 18:59 Intake Total 3989.801 2734.363 231.636 Output Total 4310 1920 150 Balance -320.199 814.363 81.636 Weight 84 kg Intake: IV 3980 1800 175 ACETAMINOPHEN IV (For NPO 100 800 ) 1,000 mg In Empty Bag 1 bag @ 400 mls/hr IVPB Q6H [facility] Rx#:[id number] Anidulafungin 100 mg In 100 Sodium Chloride 0.9% 100 ml @ 84 mls/hr IVPB DAILY @1500 [facility] Rx#:[id number] DAPTOmycin 400 mg In 50 Sodium Chloride 0.9% 50 ml @ 100 mls/hr IVPB Q48H [facility] Rx#:[id number] Magnesium Sulfate-D5w Pmx 100 100 1 gm In Dextrose/Water 1 100ml.bag @ 100 mls/hr IVPB Q1H [facility] Rx#: [id number] Piperacillin-Tazobactam 3 100 100 .375 gm In Sodium Chloride 0.9% 100 ml @ 25 mls/hr IVPB Q8HR [facility] Rx# :[id number] Sodium Chloride 0.9% 1, 500 000 ml @ 100 mls/hr IV . Q10H [facility] Rx#:[id number] Sodium Chloride 0.9% 1, 180 750 75 000 ml @ 75 mls/hr IV . [id number] [facility] Rx#:[id number] Sodium Chloride 0.9% 1, 1000 000 ml @ 999 mls/hr IV . Q1H1M [facility] Rx#:[id number] Sodium Chloride 0.9% 2, 2000 000 ml @ 999 mls/hr IV . Q2H1M [facility] Rx#:[id number] Intake, IV Titration 9.801 934.363 56.636 Amount Norepinephrine 4 mg In 9.801 597.047 56.636 Sodium Chloride 0.9% 250 ml @ 0.03 MCG/KG/MIN 10. 024 mls/hr IV .Q24H [facility] Rx#:[id number] propofoL 1,000 mg In 337.316 Empty Bag 1 bag @ 15 MCG/ KG/MIN 7.893 mls/hr IV . [id number] [facility] Rx#:[id number] Output: Gastric Drainage 3000 900 Drainage 285 60 Left Lower Abdomen 285 60 Urine 725 960 150 Emesis 300 Other: Voiding Method Indwelling Catheter Indwelling Catheter ABP, PAP, CO, CI - Last Documented Arterial Blood Pressure 162/42 - Labs CBC & Chem 7: 01/29/23 04:30 01/29/23 04:30 Labs: Abnormal Lab Results - Last 24 Hours (Table) 01/27/23 01/28/23 01/28/23 Range/Units 15:29 08:57 11:58 WBC (3.8-10.6) k/uL RBC (3.80-5.40) m/uL Hgb (11.4-16.0) gm/dL Hct (34.0-46.0) % Plt Count (150-450) k/uL Neutrophils # (1.3-7.7) k/uL Lymphocytes # (1.0-4.8) k/uL ABG pH (7.35-7.45) ABG pCO2 (35-45) mmHg ABG pO2 (83-108) mmHg ABG HCO3 (21-25) mmol/L ABG Total CO2 (19-24) mmol/L ABG O2 Saturation (94-97) % Sodium (137-145) mmol/L Carbon Dioxide (22-30) mmol/L BUN (7-17) mg/dL Creatinine (0.52-1.04) mg/dL Glucose (74-99) mg/dL POC Glucose (mg/dL) 159 H 177 H (70-110) mg/dL Calcium (8.4-10.2) mg/dL Phosphorus (2.5-4.5) mg/dL Alkaline Phosphatase (38-126) U/L Total Protein (6.3-8.2) g/dL Albumin (3.5-5.0) g/dL Ur Random Sodium <20 L (40-220) mmol/L 01/28/23 01/28/23 01/28/23 Range/Units 12:39 15:10 15:10 WBC 24.9 H (3.8-10.6) k/uL RBC 3.56 L (3.80-5.40) m/uL Hgb 10.5 L (11.4-16.0) gm/dL Hct 32.4 L (34.0-46.0) % Plt Count 501 H (150-450) k/uL Neutrophils # 23.4 H (1.3-7.7) k/uL Lymphocytes # 0.6 L (1.0-4.8) k/uL ABG pH (7.35-7.45) ABG pCO2 (35-45) mmHg ABG pO2 (83-108) mmHg ABG HCO3 (21-25) mmol/L ABG Total CO2 (19-24) mmol/L ABG O2 Saturation (94-97) % Sodium 132 L (137-145) mmol/L Carbon Dioxide 18 L (22-30) mmol/L BUN 52 H (7-17) mg/dL Creatinine 2.20 H (0.52-1.04) mg/dL Glucose 159 H (74-99) mg/dL POC Glucose (mg/dL) 171 H (70-110) mg/dL Calcium (8.4-10.2) mg/dL Phosphorus (2.5-4.5) mg/dL Alkaline Phosphatase 189 H (38-126) U/L Total Protein (6.3-8.2) g/dL Albumin 3.2 L (3.5-5.0) g/dL Ur Random Sodium (40-220) mmol/L 01/28/23 01/28/23 01/28/23 Range/Units 16:15 17:11 20:14 WBC (3.8-10.6) k/uL RBC (3.80-5.40) m/uL Hgb (11.4-16.0) gm/dL Hct (34.0-46.0) % Plt Count (150-450) k/uL Neutrophils # (1.3-7.7) k/uL Lymphocytes # (1.0-4.8) k/uL ABG pH 7.20 L 7.33 L (7.35-7.45) ABG pCO2 51 H (35-45) mmHg ABG pO2 273 H (83-108) mmHg ABG HCO3 20 L 18 L (21-25) mmol/L ABG Total CO2 (19-24) mmol/L ABG O2 Saturation 99.7 H (94-97) % Sodium (137-145) mmol/L Carbon Dioxide (22-30) mmol/L BUN (7-17) mg/dL Creatinine (0.52-1.04) mg/dL Glucose (74-99) mg/dL POC Glucose (mg/dL) 202 H (70-110) mg/dL Calcium (8.4-10.2) mg/dL Phosphorus (2.5-4.5) mg/dL Alkaline Phosphatase (38-126) U/L Total Protein (6.3-8.2) g/dL Albumin (3.5-5.0) g/dL Ur Random Sodium (40-220) mmol/L 01/28/23 01/29/23 01/29/23 Range/Units 20:48 04:30 04:30 WBC 20.8 H (3.8-10.6) k/uL RBC 2.80 L (3.80-5.40) m/uL Hgb 8.4 L D (11.4-16.0) gm/dL Hct 25.5 L (34.0-46.0) % Plt Count (150-450) k/uL Neutrophils # 19.3 H (1.3-7.7) k/uL Lymphocytes # 0.7 L (1.0-4.8) k/uL ABG pH (7.35-7.45) ABG pCO2 (35-45) mmHg ABG pO2 (83-108) mmHg ABG HCO3 (21-25) mmol/L ABG Total CO2 (19-24) mmol/L ABG O2 Saturation (94-97) % Sodium 135 L (137-145) mmol/L Carbon Dioxide 15 L (22-30) mmol/L BUN 46 H (7-17) mg/dL Creatinine 2.14 H (0.52-1.04) mg/dL Glucose (74-99) mg/dL POC Glucose (mg/dL) 150 H (70-110) mg/dL Calcium 7.3 L (8.4-10.2) mg/dL Phosphorus 5.4 H (2.5-4.5) mg/dL Alkaline Phosphatase (38-126) U/L Total Protein 5.1 L (6.3-8.2) g/dL Albumin 2.3 L (3.5-5.0) g/dL Ur Random Sodium (40-220) mmol/L 01/29/23 Range/Units 06:00 WBC (3.8-10.6) k/uL RBC (3.80-5.40) m/uL Hgb (11.4-16.0) gm/dL Hct (34.0-46.0) % Plt Count (150-450) k/uL Neutrophils # (1.3-7.7) k/uL Lymphocytes # (1.0-4.8) k/uL ABG pH (7.35-7.45) ABG pCO2 30 L (35-45) mmHg ABG pO2 109 H (83-108) mmHg ABG HCO3 18 L (21-25) mmol/L ABG Total CO2 18 L (19-24) mmol/L ABG O2 Saturation 98.5 H (94-97) % Sodium (137-145) mmol/L Carbon Dioxide (22-30) mmol/L BUN (7-17) mg/dL Creatinine (0.52-1.04) mg/dL Glucose (74-99) mg/dL POC Glucose (mg/dL) (70-110) mg/dL Calcium (8.4-10.2) mg/dL Phosphorus (2.5-4.5) mg/dL Alkaline Phosphatase (38-126) U/L Total Protein (6.3-8.2) g/dL Albumin (3.5-5.0) g/dL Ur Random Sodium (40-220) mmol/L Assessment and Plan Plan: Assessment: 1. Acute kidney injury secondary to ATN secondary to septic shock and cardiac arrest. Creatinine fairly stable at 2.14 today. Nonoliguric. No hydronephrosis noted on CAT scan. 2. Metabolic acidosis secondary to acute kidney injury. 3. Ischemic colitis with necrosis of large intestine status post exploratory laparotomy with total abdominal colectomy and end ileostomy area. 4. Status post PEA arrest 01/28/2023. 5. Septic shock secondary to ischemic bowel. Plan: Change IV fluids to bicarb drip at 75 mL an hour. Continue to monitor renal function and urine output. Avoid nephrotoxins.
[2023-01-29] MEDS: DEXTROSE 5% IN WATER 1,000 ML with SODIUM BICARB (1 MEQ/ML) 150 ML IV SCH (11:04)
[2023-01-29 11:26] LABS: Glucose,Whole Blood 161 mg/dL (70-110)
[2023-01-29 11:53] LABS: Prothrombin Time 10.9 sec (9.0-12.0)
--- NOTE | 2023-01-29 12:13 | P.PN ---
Subjective Progress Note Date: 01/29/23 Principal diagnosis: Abdominal sepsis and ileus 67-year-old female patient is being seen in follow-up on 01/22/2023. A complicated case of abdominal distention, stooling infection requiring surgical intervention along with multiple medical problems and comorbidities P she initi ally presented to us with abdominal pain and she has not had a bowel movement for more than a week. She had significant abdominal distention. She was taken to the operating room and the patient underwent laparotomy, lysis of adhesions, total colectomy, ileostomy and the patient is currently postop day #3. She has been intubated and kept on a mechanical ventilator since. For now, the patient is still on a mechanical ventilator. She is a propofol which is running at 35 mcg/kg/m and she is adequately sedated and symptoms mechanical ventilator. She is on assist-control mode of mechanical ventilation at the rate of 24 with a rate of 24, tidal volume of 400, FiO2 of 30% and a PEEP of 5. Chest x-ray shows cardiomegaly. Some limited infiltrates in the left lung base and the right lower lobe lateral segment. Orotracheal tube is in a good location. The patient also has a triple-lumen catheter in the left subclavian. NG tube is also in good location. For now, the output from the NG tube is minimal. Her IV fluids are running at a rate of 75 mL an hour and the fluid is in the form of a bicarb infusion. She is on no pressors at this point in time in the urine output is in order of 5200 mL an hour. In terms of her electrolytes, the patient's sodium level has been dropping and it's down to 129. BUN is at 40 with a creatinine of 3.47 and a potassium level is at 4.2. Her serum bicarb is improved. She was as low as 13 and she is currently up to 20. Nevertheless, she is developing an acute kidney injury. Her creatinine at time of admission was 1.8 from a normal baseline. She has developed that he worsening of renal function the creatinine is up to 3.47. CAT scan of the abdomen and the pelvis that was done on 01/19/2023 showed no evidence of any hydronephrosis he had she had pancolonic distention with cecum dilatation which was up to 9.4 cm in size. At the same time, her white cell count has dropped down to 17.9 from as high as 25. Hemoglobin is stable at 9.2 and a platelet count is at 159. In terms of cultures, sputum culture has been negative. Abdominal wound cultures were taken and that is also still pending for now and the patient is covered with IV Zosyn. She is afebrile. She is having episodes of low-grade fever. She is on IV Tylenol. She remains hemodynamically stable. The patient remains nothing by mouth for now. The patient has a YASMINE drain located in the left lower quadrant and the output is in order of 200 mL over the past 8 hours. The output is serosanguineous. Her lactic acid level dropped from 7.3 down to 1.8. Blood sugars under adequate control and the patient is taking NovoLog insulin sliding scale coverage. She takes Lantus 55 units twice a day at home. She is also on a combination of Seroquel and Topamax and Prozac at home. On 01/26/2023, the patient is postop day #7. She remains on oxygen at 2 L/m nasal cannula. She is still on TPN for nutritional support. At the same time the patient was given soft and chopped diet with one-to-one supervision. She is able to swallow. She is not meeting her requirements. NG tube was removed yesterday. Ileostomy is functional and there is positive output. She has no s pecific complaints. She is communicating at this point in time. She is hemodynamically stable. She is off the Cleviprex drip. She is on insulin signs good coverage and she is also on IV Zosyn.Blood work today shows a WD skeletal 11.3, hemoglobin 9.3 and a platelet count of 224. Sodium is at 132 with a potassium level of 3.2, BUN is 39 and the creatinine is 1.47. Sugar is 238. The patient is on Levemir insulin 30 units twice a day and she also taken a slight scale coverage. IV fluids and the form of normal saline at rate of 20 mL an hour. She is on Lovenox 30 mg subcu for DVT prophylaxis. The output from the YASMINE drain is serosanguineous and in the order of 70 mL overnight. On 01/27/2023, the patient is postoperative day #8. She is on room air oxygen for now. Doing well. TPN was discontinued and the patient is currently tolerating diet and her ileostomy is functional. No other new complaints otherwise for now. The YASMINE drain is still in place and output is serosanguineous. Hemodynamically stable. No new labs are available from today. Communicating although she is overall weak and somewhat lethargic. Remains on IV Zosyn. Remains on Lovenox for DVT prophylaxis. Remains on Levemir insulin 30 units twice a day and the NovoLog signs good coverage. 01/28/2023, the patient is postop day #9. She is awake and alert and communicating. She was taken off the TPN and currently she is tolerating oral intake. Her ileostomy is functional. YASMINE drains are in place and output is serosanguineous. She is overall weak and she is showing some progress on a daily basis. White cell count was 22 with a hemoglobin 10.2 and a platelet count of 366. BUN is 49 with a creatinine of 2.07 and sodium levels of 1:30. Potassium levels at 4.9. No other new complaints otherwise for now. She is hemodynamically stable. . Dilaudid for pain control. Levemir insulin 30 units twice a day plus a sliding scale coverage. Patient was reevaluated today on 01/29/2023, patient developed an episode of arrest yesterday, she had a 5 minute pulseless electrical activity, patient had to be intubated and mechanically ventilated. Patient had a cardiac arrest while undergoing a computed tomography scan. 3 ML's of brown fluid removed from the nasogastric tube patient was found to have ileus on the CT of the abdomen and pelvis. Received so far for fluids of IV fluids her down time was 3-5 minutes, her ventilator settings today are assist control rate of 24 pressure support of mechanical ventilation with PI of 22, inspiratory time is 0.9 FiO2 is 50%. And PEEP of 5. ABG showed a pO2 of 109 pCO2 of 30 pH of 7.38 hence FiO2 was cut down to 45%. Patient is receiving bicarb drip, she is supposed to have a PICC line placed today. Patient is status post colectomy for ischemic bowel and she was extubated at one point on 02/02. Yesterday she developed a sudden downhill course. She continues to have a functional colostomy, and she has a YASMINE drain in place. Patient remains on daptomycin and Zosyn. She is on propofol at 55 mcg/kg/m she is off norepinephrine today. And she is receiving mostly fluids. WBC count today is 20.8 hemoglobin is 8.4, electrolytes are normal BUN is 46 creatinine 2.14. Chest x-ray is suspicious for a right sideddisease/infiltrate/aspiration pneumonia although the possibility of interstitial edema is not entirely ruled out. But felt to be less likely. Endotracheal tube seems to be sitting up high in the trachea and it will be advanced to COPD Objective - Vital Signs Vital signs: Vital Signs Temp 98.0 F 01/29/23 08:00 Pulse 92 01/29/23 11:42 Resp 24 01/29/23 11:30 BP 130/57 01/29/23 11:00 Pulse Ox 99 01/29/23 11:30 FiO2 45 01/29/23 11:29 Intake & Output 01/28/23 01/29/23 01/29/23 18:59 06:59 18:59 Intake Total 3989.801 2734.363 766.874 Output Total 4310 1920 480 Balance -320.199 814.363 286.874 Weight 84 kg Intake: IV 3980 1800 610 ACETAMINOPHEN IV (For NPO 100 800 100 ) 1,000 mg In Empty Bag 1 bag @ 400 mls/hr IVPB Q6H [facility] Rx#:[id number] Anidulafungin 100 mg In 100 Sodium Chloride 0.9% 100 ml @ 84 mls/hr IVPB DAILY @1500 [facility] Rx#:[id number] DAPTOmycin 400 mg In 50 Sodium Chloride 0.9% 50 ml @ 100 mls/hr IVPB Q48H [facility] Rx#:[id number] Dextrose 5% in Water 1, 75 000 ml @ 75 mls/hr IV . [id number] [facility] with Sodium Bicarb (1 Meq/ml) 150 ml Rx#:[id number] Magnesium Sulfate-D5w Pmx 100 100 1 gm In Dextrose/Water 1 100ml.bag @ 100 mls/hr IVPB Q1H [facility] Rx#: [id number] Piperacillin-Tazobactam 3 100 100 100 .375 gm In Sodium Chloride 0.9% 100 ml @ 25 mls/hr IVPB Q8HR [facility] Rx# :[id number] Sodium Chloride 0.9% 1, 500 000 ml @ 100 mls/hr IV . Q10H [facility] Rx#:[id number] Sodium Chloride 0.9% 1, 180 750 235 000 ml @ 75 mls/hr IV . [id number] [facility] Rx#:[id number] Sodium Chloride 0.9% 1, 1000 000 ml @ 999 mls/hr IV . Q1H1M [facility] Rx#:[id number] Sodium Chloride 0.9% 2, 2000 000 ml @ 999 mls/hr IV . Q2H1M [facility] Rx#:[id number] Intake, IV Titration 9.801 934.363 156.874 Amount Norepinephrine 4 mg In 9.801 597.047 61.369 Sodium Chloride 0.9% 250 ml @ 0.03 MCG/KG/MIN 10. 024 mls/hr IV .Q24H [facility] Rx#:[id number] propofoL 1,000 mg In 337.316 95.505 Empty Bag 1 bag @ 15 MCG/ KG/MIN 7.893 mls/hr IV . [id number] [facility] Rx#:[id number] Output: Gastric Drainage 3000 900 Drainage 285 60 60 Left Lower Abdomen 285 60 60 Urine 725 960 420 Emesis 300 Other: Voiding Method Indwelling Catheter Indwelling Catheter Indwelling Catheter ABP, PAP, CO, CI - Last Documented Arterial Blood Pressure 53/53 - Exam Physical Exam: Revealed 67-year-old female, intubated and mechanically ventilated. On propofol. Not requiring any pressors at this point. Head: Atraumatic, normocephalic. HEENT:[Neck is supple.] [No neck masses.] [No thyromegaly.] [No JVD.] EOMI, nonicteric. Chest: Crackles and rhonchi noted at the bases bilaterally more so on the right base..] Cardiac Exam: [Normal S1 and S2, no S3 gallop, no murmur.] Abdomen: [Soft, nontender, evidence of ileostomy noted. And YASMINE drains noted. Bowel sounds are hypoactive. No abdominal distention is appreciated. Some output is noted from the ileostomy at this point Extremities: [No clubbing, no edema, no cyanosis.] Right above-knee amputation gangrenous changes of toes on the Neurological Exam: Could not assess, patient is sedated, on propofol. Psychiatric: Could not assess, sedated on propofol. Skin: No rashes. - Labs CBC & Chem 7: 01/29/23 04:30 01/29/23 04:30 Labs: Abnormal Lab Results - Last 24 Hours (Table) 01/28/23 01/28/23 01/28/23 Range/Units 11:58 12:39 15:10 WBC 24.9 H (3.8-10.6) k/uL RBC 3.56 L (3.80-5.40) m/uL Hgb 10.5 L (11.4-16.0) gm/dL Hct 32.4 L (34.0-46.0) % Plt Count 501 H (150-450) k/uL Neutrophils # 23.4 H (1.3-7.7) k/uL Lymphocytes # 0.6 L (1.0-4.8) k/uL ABG pH (7.35-7.45) ABG pCO2 (35-45) mmHg ABG pO2 (83-108) mmHg ABG HCO3 (21-25) mmol/L ABG Total CO2 (19-24) mmol/L ABG O2 Saturation (94-97) % Sodium (137-145) mmol/L Carbon Dioxide (22-30) mmol/L BUN (7-17) mg/dL Creatinine (0.52-1.04) mg/dL Glucose (74-99) mg/dL POC Glucose (mg/dL) 177 H 171 H (70-110) mg/dL Calcium (8.4-10.2) mg/dL Phosphorus (2.5-4.5) mg/dL Alkaline Phosphatase (38-126) U/L Total Protein (6.3-8.2) g/dL Albumin (3.5-5.0) g/dL Procalcitonin (0.02-0.09) ng/mL 01/28/23 01/28/23 01/28/23 Range/Units 15:10 15:10 16:15 WBC (3.8-10.6) k/uL RBC (3.80-5.40) m/uL Hgb (11.4-16.0) gm/dL Hct (34.0-46.0) % Plt Count (150-450) k/uL Neutrophils # (1.3-7.7) k/uL Lymphocytes # (1.0-4.8) k/uL ABG pH (7.35-7.45) ABG pCO2 (35-45) mmHg ABG pO2 (83-108) mmHg ABG HCO3 (21-25) mmol/L ABG Total CO2 (19-24) mmol/L ABG O2 Saturation (94-97) % Sodium 132 L (137-145) mmol/L Carbon Dioxide 18 L (22-30) mmol/L BUN 52 H (7-17) mg/dL Creatinine 2.20 H (0.52-1.04) mg/dL Glucose 159 H (74-99) mg/dL POC Glucose (mg/dL) 202 H (70-110) mg/dL Calcium (8.4-10.2) mg/dL Phosphorus (2.5-4.5) mg/dL Alkaline Phosphatase 189 H (38-126) U/L Total Protein (6.3-8.2) g/dL Albumin 3.2 L (3.5-5.0) g/dL Procalcitonin 0.95 H (0.02-0.09) ng/mL 01/28/23 01/28/23 01/28/23 Range/Units 17:11 20:14 20:48 WBC (3.8-10.6) k/uL RBC (3.80-5.40) m/uL Hgb (11.4-16.0) gm/dL Hct (34.0-46.0) % Plt Count (150-450) k/uL Neutrophils # (1.3-7.7) k/uL Lymphocytes # (1.0-4.8) k/uL ABG pH 7.20 L 7.33 L (7.35-7.45) ABG pCO2 51 H (35-45) mmHg ABG pO2 273 H (83-108) mmHg ABG HCO3 20 L 18 L (21-25) mmol/L ABG Total CO2 (19-24) mmol/L ABG O2 Saturation 99.7 H (94-97) % Sodium (137-145) mmol/L Carbon Dioxide (22-30) mmol/L BUN (7-17) mg/dL Creatinine (0.52-1.04) mg/dL Glucose (74-99) mg/dL POC Glucose (mg/dL) 150 H (70-110) mg/dL Calcium (8.4-10.2) mg/dL Phosphorus (2.5-4.5) mg/dL Alkaline Phosphatase (38-126) U/L Total Protein (6.3-8.2) g/dL Albumin (3.5-5.0) g/dL Procalcitonin (0.02-0.09) ng/mL 01/29/23 01/29/23 01/29/23 Range/Units 04:30 04:30 06:00 WBC 20.8 H (3.8-10.6) k/uL RBC 2.80 L (3.80-5.40) m/uL Hgb 8.4 L D (11.4-16.0) gm/dL Hct 25.5 L (34.0-46.0) % Plt Count (150-450) k/uL Neutrophils # 19.3 H (1.3-7.7) k/uL Lymphocytes # 0.7 L (1.0-4.8) k/uL ABG pH (7.35-7.45) ABG pCO2 30 L (35-45) mmHg ABG pO2 109 H (83-108) mmHg ABG HCO3 18 L (21-25) mmol/L ABG Total CO2 18 L (19-24) mmol/L ABG O2 Saturation 98.5 H (94-97) % Sodium 135 L (137-145) mmol/L Carbon Dioxide 15 L (22-30) mmol/L BUN 46 H (7-17) mg/dL Creatinine 2.14 H (0.52-1.04) mg/dL Glucose (74-99) mg/dL POC Glucose (mg/dL) (70-110) mg/dL Calcium 7.3 L (8.4-10.2) mg/dL Phosphorus 5.4 H (2.5-4.5) mg/dL Alkaline Phosphatase (38-126) U/L Total Protein 5.1 L (6.3-8.2) g/dL Albumin 2.3 L (3.5-5.0) g/dL Procalcitonin (0.02-0.09) ng/mL 01/29/23 Range/Units 11:25 WBC (3.8-10.6) k/uL RBC (3.80-5.40) m/uL Hgb (11.4-16.0) gm/dL Hct (34.0-46.0) % Plt Count (150-450) k/uL Neutrophils # (1.3-7.7) k/uL Lymphocytes # (1.0-4.8) k/uL ABG pH (7.35-7.45) ABG pCO2 (35-45) mmHg ABG pO2 (83-108) mmHg ABG HCO3 (21-25) mmol/L ABG Total CO2 (19-24) mmol/L ABG O2 Saturation (94-97) % Sodium (137-145) mmol/L Carbon Dioxide (22-30) mmol/L BUN (7-17) mg/dL Creatinine (0.52-1.04) mg/dL Glucose (74-99) mg/dL POC Glucose (mg/dL) 161 H (70-110) mg/dL Calcium (8.4-10.2) mg/dL Phosphorus (2.5-4.5) mg/dL Alkaline Phosphatase (38-126) U/L Total Protein (6.3-8.2) g/dL Albumin (3.5-5.0) g/dL Procalcitonin (0.02-0.09) ng/mL Microbiology - Last 24 Hours (Table) 01/27/23 14:11 Blood Culture - Preliminary Blood 01/27/23 14:00 Blood Culture - Preliminary Blood 01/28/23 17:29 Sputum Culture - Preliminary Sputum 01/28/23 22:08 Sputum Culture - Preliminary Sputum Assessment and Plan Assessment: Impression: Acute hypoxic respiratory failure secondary to cardiac arrest requiring intubation and mechanical ventilation Cardiac arrest requiring intubation and mechanical ventilation, patient had a PEA cardiac arrest, down time of 5 minutes. In-hospital cardiac arrest. This occurred on 01/28/2023 Status post exploratory laparotomy, lysis of adhesions, total colectomy, ileostomy, abdominal washout, placement of YASMINE drains, placement of wound VAC postoperative day #10 patient was extubated after this surgery on 02/02/2023 and has been off mechanical ventilation until 01/28 requiring reintubation because of PEA. Acute kidney injury Acute anion gap metabolic acidosis Severe peripheral vessel occlusive disease with below knee amputation on the right, and gangrenous toes on the left. History of type 2 diabetes Stress incontinence Hypothyroidism Dyslipidemia Underlying COPD and ongoing tobacco use History of depression Suspect acute aspiration pneumonia Recommendation: Continue ventilatory support no plans to wean or extubated today, patient is recovering from cardiac arrest 01/28/2023 Continue nasogastric tube to suction, patient had severe ileus Consider TPN Continue antibiotics as per infectious disease on the case for her abdominal sepsis and presumptive aspiration pneumonia Continue GI and DVT prophylaxis Continue insulin as per scale Continue bronchodilators Continue Eraxis, Zosyn, and daptomycin Patient is definitely critically ill. Prognosis is extremely poor and guarded We'll continue to follow Critical care time is over 30 minutes Time with Patient: Greater than 30
--- NOTE | 2023-01-29 12:39 | P.PN ---
Subjective Progress Note Date: 01/29/23 CHIEF COMPLAINT: Acute abdomen with ischemic bowel HISTORY OF PRESENT ILLNESS: Patient is status post exploratory laparotomy with total abdominal colectomy and end ileostomy, lysis of adhesions on 01/19/23. Patient remains in the ICU. Patient had a computed tomography scan of the abdomen and pelvis yesterday. During the CAT scan she started to vomit and did go into cardiac arrest. Patient did require to be intubated and placed on mechanical ventilation. She had an NG tube placed with 3 L of output immediately. She's had 1 L of output through the night and about 550 mL this morning. Patient did have a temp of 103 this morning. WBC is 20 hemoglobin did drop from 10.5-8.4 but she did receive a total of 4 L of fluid yesterday. She is scheduled for PICC line placement in to speak placed on TPN for nutrition support. Her ostomy has minimal output. The computed tomography scan showed fluid filled dilated small bowel loops of the colon. Findings appear suggestive for ileus. Streak Atelectasis posterior lungs. Underlying nodularity is not excluded. Thickened urinary bladder wall. The urinary bladder is decompressed with a Garcia catheter and contained air. PHYSICAL EXAM: VITAL SIGNS: Reviewed GENERAL: Well-developed in no acute distress. HEENT: No sclera icterus. Moist buccal mucosa. Head is atraumatic, normocephalic. NECK: Supple without lymphadenopathy. CHEST: Non-labored respirations and equal bilateral excursions. CARDIOVASCULAR: Palpable 2+ radial pulses. ABDOMEN: Soft. Nondistended. Optifoam dressing clean and dry. YASMINE drain serosanguineous output. Minimal liquidy stool in ostomy bag MUSCULOSKELETAL: No clubbing or cyanosis. NEUROLOGIC: Patient intubated and sedated PSYCH: Appropriate affect. Alert and oriented to person, place and time. SKIN: Well perfused. Good skin turgor. ASSESSMENT: 1. Acute abdomen with ischemic bowel 2. Hypertensive heart disease with congestive heart failure 3. Morbid obesity due to excess calories, BMI over 34.8 4. Acute renal failure due to dehydration 5. History of lower extremity amputee 6. Chronic obstructive pulmonary disease 7. Diabetes type 2, insulin-dependent with diabetic nephropathy 8. Gastroesophageal reflux disease 9. Hypotension due to hypovolemia 10. Lactic acidosis 11. Septic shock due to bowel 12. Status post total abdominal colectomy 13. Cardiac arrest 14. Severe ileus 15. Suspected aspiration pneumonia PLAN: -Continue ICU management -Continue supportive care -Continue antibiotics -Continue to monitor NG tube output -Patient scheduled for PICC line placement and to start TPN -GI prophylaxis Protonix and DVT prophylaxis Lovenox Physician Softball Umpire note has been reviewed by physician. Signing provider agrees with the documented findings, assessment, and plan of care. Objective - Vital Signs Vital signs: Vital Signs Temp 98.0 F 01/29/23 08:00 Pulse 92 01/29/23 11:42 Resp 24 01/29/23 11:30 BP 130/57 01/29/23 11:00 Pulse Ox 99 01/29/23 11:30 FiO2 45 01/29/23 11:29 Intake & Output 01/28/23 01/29/23 01/29/23 18:59 06:59 18:59 Intake Total 3989.801 2734.363 766.874 Output Total 4310 1920 480 Balance -320.199 814.363 286.874 Weight 84 kg Intake: IV 3980 1800 610 ACETAMINOPHEN IV (For NPO 100 800 100 ) 1,000 mg In Empty Bag 1 bag @ 400 mls/hr IVPB Q6H [facility] Rx#:[id number] Anidulafungin 100 mg In 100 Sodium Chloride 0.9% 100 ml @ 84 mls/hr IVPB DAILY @1500 [facility] Rx#:[id number] DAPTOmycin 400 mg In 50 Sodium Chloride 0.9% 50 ml @ 100 mls/hr IVPB Q48H [facility] Rx#:[id number] Dextrose 5% in Water 1, 75 000 ml @ 75 mls/hr IV . [id number] [facility] with Sodium Bicarb (1 Meq/ml) 150 ml Rx#:[id number] Magnesium Sulfate-D5w Pmx 100 100 1 gm In Dextrose/Water 1 100ml.bag @ 100 mls/hr IVPB Q1H [facility] Rx#: [id number] Piperacillin-Tazobactam 3 100 100 100 .375 gm In Sodium Chloride 0.9% 100 ml @ 25 mls/hr IVPB Q8HR [facility] Rx# :[id number] Sodium Chloride 0.9% 1, 500 000 ml @ 100 mls/hr IV . Q10H [facility] Rx#:[id number] Sodium Chloride 0.9% 1, 180 750 235 000 ml @ 75 mls/hr IV . [id number] [facility] Rx#:[id number] Sodium Chloride 0.9% 1, 1000 000 ml @ 999 mls/hr IV . Q1H1M [facility] Rx#:[id number] Sodium Chloride 0.9% 2, 2000 000 ml @ 999 mls/hr IV . Q2H1M [facility] Rx#:[id number] Intake, IV Titration 9.801 934.363 156.874 Amount Norepinephrine 4 mg In 9.801 597.047 61.369 Sodium Chloride 0.9% 250 ml @ 0.03 MCG/KG/MIN 10. 024 mls/hr IV .Q24H [facility] Rx#:[id number] propofoL 1,000 mg In 337.316 95.505 Empty Bag 1 bag @ 15 MCG/ KG/MIN 7.893 mls/hr IV . [id number] [facility] Rx#:[id number] Output: Gastric Drainage 3000 900 Drainage 285 60 60 Left Lower Abdomen 285 60 60 Urine 725 960 420 Emesis 300 Other: Voiding Method Indwelling Catheter Indwelling Catheter Indwelling Catheter ABP, PAP, CO, CI - Last Documented Arterial Blood Pressure 53/53 - Labs CBC & Chem 7: 01/29/23 04:30 01/29/23 04:30 Labs: Abnormal Lab Results - Last 24 Hours (Table) 01/28/23 01/28/23 01/28/23 Range/Units 12:39 15:10 15:10 WBC 24.9 H (3.8-10.6) k/uL RBC 3.56 L (3.80-5.40) m/uL Hgb 10.5 L (11.4-16.0) gm/dL Hct 32.4 L (34.0-46.0) % Plt Count 501 H (150-450) k/uL Neutrophils # 23.4 H (1.3-7.7) k/uL Lymphocytes # 0.6 L (1.0-4.8) k/uL ABG pH (7.35-7.45) ABG pCO2 (35-45) mmHg ABG pO2 (83-108) mmHg ABG HCO3 (21-25) mmol/L ABG Total CO2 (19-24) mmol/L ABG O2 Saturation (94-97) % Sodium 132 L (137-145) mmol/L Carbon Dioxide 18 L (22-30) mmol/L BUN 52 H (7-17) mg/dL Creatinine 2.20 H (0.52-1.04) mg/dL Glucose 159 H (74-99) mg/dL POC Glucose (mg/dL) 171 H (70-110) mg/dL Calcium (8.4-10.2) mg/dL Phosphorus (2.5-4.5) mg/dL Alkaline Phosphatase 189 H (38-126) U/L Total Protein (6.3-8.2) g/dL Albumin 3.2 L (3.5-5.0) g/dL Procalcitonin (0.02-0.09) ng/mL 01/28/23 01/28/23 01/28/23 Range/Units 15:10 16:15 17:11 WBC (3.8-10.6) k/uL RBC (3.80-5.40) m/uL Hgb (11.4-16.0) gm/dL Hct (34.0-46.0) % Plt Count (150-450) k/uL Neutrophils # (1.3-7.7) k/uL Lymphocytes # (1.0-4.8) k/uL ABG pH 7.20 L (7.35-7.45) ABG pCO2 51 H (35-45) mmHg ABG pO2 273 H (83-108) mmHg ABG HCO3 20 L (21-25) mmol/L ABG Total CO2 (19-24) mmol/L ABG O2 Saturation 99.7 H (94-97) % Sodium (137-145) mmol/L Carbon Dioxide (22-30) mmol/L BUN (7-17) mg/dL Creatinine (0.52-1.04) mg/dL Glucose (74-99) mg/dL POC Glucose (mg/dL) 202 H (70-110) mg/dL Calcium (8.4-10.2) mg/dL Phosphorus (2.5-4.5) mg/dL Alkaline Phosphatase (38-126) U/L Total Protein (6.3-8.2) g/dL Albumin (3.5-5.0) g/dL Procalcitonin 0.95 H (0.02-0.09) ng/mL 01/28/23 01/28/23 01/29/23 Range/Units 20:14 20:48 04:30 WBC (3.8-10.6) k/uL RBC (3.80-5.40) m/uL Hgb (11.4-16.0) gm/dL Hct (34.0-46.0) % Plt Count (150-450) k/uL Neutrophils # (1.3-7.7) k/uL Lymphocytes # (1.0-4.8) k/uL ABG pH 7.33 L (7.35-7.45) ABG pCO2 (35-45) mmHg ABG pO2 (83-108) mmHg ABG HCO3 18 L (21-25) mmol/L ABG Total CO2 (19-24) mmol/L ABG O2 Saturation (94-97) % Sodium 135 L (137-145) mmol/L Carbon Dioxide 15 L (22-30) mmol/L BUN 46 H (7-17) mg/dL Creatinine 2.14 H (0.52-1.04) mg/dL Glucose (74-99) mg/dL POC Glucose (mg/dL) 150 H (70-110) mg/dL Calcium 7.3 L (8.4-10.2) mg/dL Phosphorus 5.4 H (2.5-4.5) mg/dL Alkaline Phosphatase (38-126) U/L Total Protein 5.1 L (6.3-8.2) g/dL Albumin 2.3 L (3.5-5.0) g/dL Procalcitonin (0.02-0.09) ng/mL 01/29/23 01/29/23 01/29/23 Range/Units 04:30 06:00 11:25 WBC 20.8 H (3.8-10.6) k/uL RBC 2.80 L (3.80-5.40) m/uL Hgb 8.4 L D (11.4-16.0) gm/dL Hct 25.5 L (34.0-46.0) % Plt Count (150-450) k/uL Neutrophils # 19.3 H (1.3-7.7) k/uL Lymphocytes # 0.7 L (1.0-4.8) k/uL ABG pH (7.35-7.45) ABG pCO2 30 L (35-45) mmHg ABG pO2 109 H (83-108) mmHg ABG HCO3 18 L (21-25) mmol/L ABG Total CO2 18 L (19-24) mmol/L ABG O2 Saturation 98.5 H (94-97) % Sodium (137-145) mmol/L Carbon Dioxide (22-30) mmol/L BUN (7-17) mg/dL Creatinine (0.52-1.04) mg/dL Glucose (74-99) mg/dL POC Glucose (mg/dL) 161 H (70-110) mg/dL Calcium (8.4-10.2) mg/dL Phosphorus (2.5-4.5) mg/dL Alkaline Phosphatase (38-126) U/L Total Protein (6.3-8.2) g/dL Albumin (3.5-5.0) g/dL Procalcitonin (0.02-0.09) ng/mL Microbiology - Last 24 Hours (Table) 01/27/23 14:11 Blood Culture - Preliminary Blood 01/27/23 14:00 Blood Culture - Preliminary Blood 01/28/23 17:29 Sputum Culture - Preliminary Sputum 01/28/23 22:08 Sputum Culture - Preliminary Sputum
[2023-01-29] MEDS: ANIDULAFUNGIN 100 MG in SODIUM CHLORIDE 0.9% 100 ML IVPB SCH (15:20)
[2023-01-29] MEDS: MULTIVITAMINS, THERA 1 EACH TAB PO SCH (16:18)
[2023-01-29] MEDS: CHOLECALCIFEROL 125 MCG (5000 IU) TABLET PO SCH (16:18)
[2023-01-29] MEDS: FLUoxetine HCL 20 MG CAP PO SCH (16:18)
[2023-01-29] MEDS: VITAMIN E (DL,TOCOPHERYL ACET) 400 UNIT (180 MG) CAP PO SCH (16:19)
[2023-01-29] MEDS: HYDROmorphone 1 MG/ML 1 ML SYRINGE IVP PRN ×2 (17:04→22:17)
[2023-01-29 17:20] LABS: Glucose,Whole Blood 191 mg/dL (70-110)
[2023-01-29] MEDS: QUEtiapine 200 MG TAB PO SCH (20:10)
[2023-01-29 23:43] LABS: Glucose,Whole Blood 166 mg/dL (70-110)
[2023-01-30] MEDS: IPRATROPIUM-ALBUTEROL 3 ML NEB INHALATION PRN ×2 (00:08→03:52)
[2023-01-30] MEDS: PIPERACILLIN-TAZOBACTAM 3.375 GM in SODIUM CHLORIDE 0.9% 100 ML IVPB SCH ×3 (00:40→15:37)
[2023-01-30] MEDS: DEXTROSE 5% IN WATER 1,000 ML with SODIUM BICARB (1 MEQ/ML) 150 ML IV SCH (00:40)
[2023-01-30] MEDS: INSULIN ASPART (NovoLOG) 100 UNIT/ML VIAL SQ SCH ×4 (00:40→16:51)
[2023-01-30] MEDS: NOREPINEPHRINE 4 MG in SODIUM CHLORIDE 0.9% 250 ML IV SCH (00:41)
[2023-01-30] MEDS: ACETAMINOPHEN IV (For NPO) 1,000 MG in EMPTY BAG 1 BAG IVPB SCH ×4 (04:09→20:24)
[2023-01-30 06:02] LABS: ABG Base Excess -1.9 mmol/L; ABG HCO3 22 mmol/L (21-25); ABG Oxygen Saturation 98.8 % (94-97); ABG PCO2 31 mmHg (35-45); ABG PH 7.45 (7.35-7.45); ABG PO2 106 mmHg (83-108); ABG TCO2 23 mmol/L (19-24); Allen Test Performed? Yes
[2023-01-30 06:09] LABS: Glucose,Whole Blood 92 mg/dL (70-110)
[2023-01-30] MEDS: INSULIN DETEMIR (LEVEMIR) 100 UNIT/ML SYR SQ SCH ×2 (06:50→20:06)
--- NOTE | 2023-01-30 07:01 | P.PN ---
Subjective Progress Note Date: 01/29/23 Principal diagnosis: Ischemic colitis patient is a 67-year-old female with a past medical history significant for type 2 diabetes mellitus COPD morbid obesity did have a history of right below the knee amputation and left big toe amputation history of smoking presenting to the hospital with a 2-week history of abdominal pain , patient has been diagnosed with ischemic colitis in this patient with status post subtotal colectomy and ileostomy. Patient has been extubated as of 01/23/2023, patient did have a cardiac arrest 01/28/2023 evening requiring resuscitation and intubation On today's evaluation that is 01/29/2023, the patient did spike another fever last night and early this morning around 2 AM the patient is afebrile since then, patient is currently intubated on the vent and FiO2 is down to 45%, no significant purulent secretions through the ET, however the sixth of mention the patient did vomited during the CT, no other changes has been reported Objective - Vital Signs Vital signs: Vital Signs Temp 98.0 F 01/29/23 08:00 Pulse 86 01/29/23 10:30 Resp 24 01/29/23 10:30 BP 122/53 01/29/23 08:00 Pulse Ox 98 01/29/23 10:30 FiO2 45 01/29/23 10:00 Intake & Output 01/28/23 01/29/23 01/29/23 18:59 06:59 18:59 Intake Total 3989.801 2734.363 681.874 Output Total 4310 1920 320 Balance -320.199 814.363 361.874 Weight 84 kg Intake: IV 3980 1800 525 ACETAMINOPHEN IV (For NPO 100 800 100 ) 1,000 mg In Empty Bag 1 bag @ 400 mls/hr IVPB Q6H [facility] Rx#:[id number] Anidulafungin 100 mg In 100 Sodium Chloride 0.9% 100 ml @ 84 mls/hr IVPB DAILY @1500 [facility] Rx#:[id number] DAPTOmycin 400 mg In 50 Sodium Chloride 0.9% 50 ml @ 100 mls/hr IVPB Q48H [facility] Rx#:[id number] Magnesium Sulfate-D5w Pmx 100 100 1 gm In Dextrose/Water 1 100ml.bag @ 100 mls/hr IVPB Q1H [facility] Rx#: [id number] Piperacillin-Tazobactam 3 100 100 100 .375 gm In Sodium Chloride 0.9% 100 ml @ 25 mls/hr IVPB Q8HR [facility] Rx# :[id number] Sodium Chloride 0.9% 1, 500 000 ml @ 100 mls/hr IV . Q10H [facility] Rx#:[id number] Sodium Chloride 0.9% 1, 180 750 225 000 ml @ 75 mls/hr IV . [id number] [facility] Rx#:[id number] Sodium Chloride 0.9% 1, 1000 000 ml @ 999 mls/hr IV . Q1H1M [facility] Rx#:[id number] Sodium Chloride 0.9% 2, 2000 000 ml @ 999 mls/hr IV . Q2H1M [facility] Rx#:[id number] Intake, IV Titration 9.801 934.363 156.874 Amount Norepinephrine 4 mg In 9.801 597.047 61.369 Sodium Chloride 0.9% 250 ml @ 0.03 MCG/KG/MIN 10. 024 mls/hr IV .Q24H [facility] Rx#:[id number] propofoL 1,000 mg In 337.316 95.505 Empty Bag 1 bag @ 15 MCG/ KG/MIN 7.893 mls/hr IV . [id number] [facility] Rx#:[id number] Output: Gastric Drainage 3000 900 Drainage 285 60 Left Lower Abdomen 285 60 Urine 725 960 320 Emesis 300 Other: Voiding Method Indwelling Catheter Indwelling Catheter Indwelling Catheter ABP, PAP, CO, CI - Last Documented Arterial Blood Pressure 128/34 - Exam GENERAL DESCRIPTION: An elderly female intubated on the vent RESPIRATORY SYSTEM: Unlabored breathing , coarse breath sounds bilaterally HEART: S1 S2 regular rate and rhythm , ABDOMEN: Soft , mild distention EXTREMITIES: Right BK stump incision is healed - Labs CBC & Chem 7: 01/29/23 04:30 01/29/23 04:30 Labs: Abnormal Lab Results - Last 24 Hours (Table) 01/28/23 01/28/23 01/28/23 Range/Units 11:58 12:39 15:10 WBC 24.9 H (3.8-10.6) k/uL RBC 3.56 L (3.80-5.40) m/uL Hgb 10.5 L (11.4-16.0) gm/dL Hct 32.4 L (34.0-46.0) % Plt Count 501 H (150-450) k/uL Neutrophils # 23.4 H (1.3-7.7) k/uL Lymphocytes # 0.6 L (1.0-4.8) k/uL ABG pH (7.35-7.45) ABG pCO2 (35-45) mmHg ABG pO2 (83-108) mmHg ABG HCO3 (21-25) mmol/L ABG Total CO2 (19-24) mmol/L ABG O2 Saturation (94-97) % Sodium (137-145) mmol/L Carbon Dioxide (22-30) mmol/L BUN (7-17) mg/dL Creatinine (0.52-1.04) mg/dL Glucose (74-99) mg/dL POC Glucose (mg/dL) 177 H 171 H (70-110) mg/dL Calcium (8.4-10.2) mg/dL Phosphorus (2.5-4.5) mg/dL Alkaline Phosphatase (38-126) U/L Total Protein (6.3-8.2) g/dL Albumin (3.5-5.0) g/dL Procalcitonin (0.02-0.09) ng/mL 01/28/23 01/28/23 01/28/23 Range/Units 15:10 15:10 16:15 WBC (3.8-10.6) k/uL RBC (3.80-5.40) m/uL Hgb (11.4-16.0) gm/dL Hct (34.0-46.0) % Plt Count (150-450) k/uL Neutrophils # (1.3-7.7) k/uL Lymphocytes # (1.0-4.8) k/uL ABG pH (7.35-7.45) ABG pCO2 (35-45) mmHg ABG pO2 (83-108) mmHg ABG HCO3 (21-25) mmol/L ABG Total CO2 (19-24) mmol/L ABG O2 Saturation (94-97) % Sodium 132 L (137-145) mmol/L Carbon Dioxide 18 L (22-30) mmol/L BUN 52 H (7-17) mg/dL Creatinine 2.20 H (0.52-1.04) mg/dL Glucose 159 H (74-99) mg/dL POC Glucose (mg/dL) 202 H (70-110) mg/dL Calcium (8.4-10.2) mg/dL Phosphorus (2.5-4.5) mg/dL Alkaline Phosphatase 189 H (38-126) U/L Total Protein (6.3-8.2) g/dL Albumin 3.2 L (3.5-5.0) g/dL Procalcitonin 0.95 H (0.02-0.09) ng/mL 01/28/23 01/28/23 01/28/23 Range/Units 17:11 20:14 20:48 WBC (3.8-10.6) k/uL RBC (3.80-5.40) m/uL Hgb (11.4-16.0) gm/dL Hct (34.0-46.0) % Plt Count (150-450) k/uL Neutrophils # (1.3-7.7) k/uL Lymphocytes # (1.0-4.8) k/uL ABG pH 7.20 L 7.33 L (7.35-7.45) ABG pCO2 51 H (35-45) mmHg ABG pO2 273 H (83-108) mmHg ABG HCO3 20 L 18 L (21-25) mmol/L ABG Total CO2 (19-24) mmol/L ABG O2 Saturation 99.7 H (94-97) % Sodium (137-145) mmol/L Carbon Dioxide (22-30) mmol/L BUN (7-17) mg/dL Creatinine (0.52-1.04) mg/dL Glucose (74-99) mg/dL POC Glucose (mg/dL) 150 H (70-110) mg/dL Calcium (8.4-10.2) mg/dL Phosphorus (2.5-4.5) mg/dL Alkaline Phosphatase (38-126) U/L Total Protein (6.3-8.2) g/dL Albumin (3.5-5.0) g/dL Procalcitonin (0.02-0.09) ng/mL 01/29/23 01/29/23 01/29/23 Range/Units 04:30 04:30 06:00 WBC 20.8 H (3.8-10.6) k/uL RBC 2.80 L (3.80-5.40) m/uL Hgb 8.4 L D (11.4-16.0) gm/dL Hct 25.5 L (34.0-46.0) % Plt Count (150-450) k/uL Neutrophils # 19.3 H (1.3-7.7) k/uL Lymphocytes # 0.7 L (1.0-4.8) k/uL ABG pH (7.35-7.45) ABG pCO2 30 L (35-45) mmHg ABG pO2 109 H (83-108) mmHg ABG HCO3 18 L (21-25) mmol/L ABG Total CO2 18 L (19-24) mmol/L ABG O2 Saturation 98.5 H (94-97) % Sodium 135 L (137-145) mmol/L Carbon Dioxide 15 L (22-30) mmol/L BUN 46 H (7-17) mg/dL Creatinine 2.14 H (0.52-1.04) mg/dL Glucose (74-99) mg/dL POC Glucose (mg/dL) (70-110) mg/dL Calcium 7.3 L (8.4-10.2) mg/dL Phosphorus 5.4 H (2.5-4.5) mg/dL Alkaline Phosphatase (38-126) U/L Total Protein 5.1 L (6.3-8.2) g/dL Albumin 2.3 L (3.5-5.0) g/dL Procalcitonin (0.02-0.09) ng/mL Microbiology - Last 24 Hours (Table) 01/27/23 14:11 Blood Culture - Preliminary Blood 01/27/23 14:00 Blood Culture - Preliminary Blood 01/28/23 17:29 Sputum Culture - Preliminary Sputum 01/28/23 22:08 Sputum Culture - Preliminary Sputum Assessment and Plan (1) Ischemic colitis Current Visit: Yes Status: Acute Code(s): K55.9 - VASCULAR DISORDER OF INTESTINE, UNSPECIFIED SNOMED Code(s): 40985400 (2) Sepsis Current Visit: No Status: Acute Code(s): A41.9 - SEPSIS, UNSPECIFIED ORGANISM SNOMED Code(s): 75929572 Plan: 1patient presented to hospital abdominal pain has been diagnosed with ischemic colitis in this patient infusion of septic shock with low-grade fever tachycardia elevated white count elevated lactic acid source being ischemic large bowel status post subtotal colectomy and end ileostomy we will need to cover for the enteric gram-negative both aerobes and anaerobes abdominal culture, which are so far pending 2-patient did have a new fever, and significant worsening of her clinical condition did have a cardiac arrest, the patient apparently has been broadened and is currently be treated with Zosyn daptomycin and eraxs , to continue while waiting for cultures to finalize condition remains to be guarded Time with Patient: Less than 30
[2023-01-30 07:08] LABS: HCT 22.6 % (34.0-46.0); HGB 7.5 gm/dL (11.4-16.0); MCH 30.6 pg (25.0-35.0); MCHC 33.3 g/dL (31.0-37.0); MCV 92.1 fL (80.0-100.0); Mean Platelet Volume 7.7; Platelet Count 390 k/uL (150-450); RBC 2.46 m/uL (3.80-5.40); RDW 14.7 % (11.5-15.5); WBC 24.3 k/uL (3.8-10.6)
[2023-01-30 07:10] LABS: Ionized Calcium 4.9 mg/dL (4.5-5.3)
[2023-01-30 07:18] LABS: Magnesium 2.2 mg/dL (1.6-2.3); Phosphorus 4.3 mg/dL (2.5-4.5)
[2023-01-30] MEDS: GABAPENTIN 100 MG CAP PO SCH ×2 (07:46→20:06)
[2023-01-30] MEDS: TOPIRAMATE 25 MG TAB PO SCH ×2 (07:47→20:07)
[2023-01-30] MEDS: OXYBUTYNIN 10 MG TAB.ER.24 PO SCH (07:47)
[2023-01-30] MEDS: LORATADINE 10 MG TAB PO SCH (07:47)
[2023-01-30] MEDS: LEVOTHYROXINE 88 MCG TAB PO SCH (07:47)
[2023-01-30] MEDS: IPRATROPIUM-ALBUTEROL 3 ML NEB INHALATION SCH ×4 (07:56→21:04)
[2023-01-30] MEDS: NICOTINE 21MG/24HR PATCH TRANSDERM SCH ×2 (08:04→08:05)
[2023-01-30] MEDS: CHLORHEXIDINE GLUCONATE 15 ML CUP MUCOUS MEM SCH (08:05)
[2023-01-30] MEDS: ENOXAPARIN 30 MG/0.3 ML SYRINGE SQ SCH (08:05)
[2023-01-30] MEDS: PANTOPRAZOLE 40 MG/10 ML VIAL IV SCH (08:05)
[2023-01-30] MEDS: HYDROmorphone 1 MG/ML 1 ML SYRINGE IVP PRN ×2 (08:06→22:22)
--- NOTE | 2023-01-30 08:30 | XR ---
EXAMINATION TYPE: XR chest 1V portable DATE OF EXAM: 01/30/2023 COMPARISON: NONE HISTORY: Tube placement TECHNIQUE: Single frontal view of the chest is obtained. FINDINGS: ET tube approximately 6 cm above aaron. NG tube appears in good position. Arthropathy of the left shoulder. Diffuse interstitial pattern bilaterally infiltrate and small bilateral pleural ef fusion. Osseous structures are stable. IMPRESSION: Stable bilateral infiltrates correlate for atypical pneumonia favored over CHF or likely .
--- NOTE | 2023-01-30 08:31 | P.PN ---
Subjective Progress Note Date: 01/30/23 Principal diagnosis: Abdominal pain This is a 67-year-old female who presented to the emergency department with complaints of abdominal pain and had not had a bowel movement for multiple days. Patient was found to have an ischemic bowel. She did have a total abdominal colectomy with ileostomy by Dr. Larsen. She did require mechanical ventilation. She does have a significant history of COPD and diabetes, and is a tobacco user. 01/29/23 Yesterday patient had a cardiac arrest while undergoing a computed tomography scan. 3 L of brown fluid removed from NG tube. Ileus was found on the computed tomography scan. Patient is reintubated and remains in the ICU. 01/30/23 Patient remains intubated. She still having significant dark output from NG tube. Plan today is for a PICC line for TPN. Objective - Vital Signs Vital signs: Vital Signs Temp 99.4 F 01/30/23 04:00 Pulse 95 01/30/23 07:56 Resp 24 01/30/23 06:00 BP 128/41 01/29/23 21:45 Pulse Ox 96 01/30/23 06:00 FiO2 45 01/30/23 07:56 Intake & Output 01/29/23 01/30/23 01/30/23 18:59 06:59 18:59 Intake Total 7476.040 3415.355 8.131 Output Total 2530 1625 Balance -610.683 -141.645 8.131 Weight 84 kg 84 kg Intake: IV 1490 1135 ACETAMINOPHEN IV (For NPO 100 100 ) 1,000 mg In Empty Bag 1 bag @ 400 mls/hr IVPB Q6H [facility] Rx#:[id number] Anidulafungin 100 mg In 100 Sodium Chloride 0.9% 100 ml @ 84 mls/hr IVPB DAILY @1500 [facility] Rx#:[id number] Dextrose 5% in Water 1, 75 000 ml @ 75 mls/hr IV . [id number] [facility] with Sodium Bicarb (1 Meq/ml) 100 ml Rx#:[id number] Dextrose 5% in Water 1, 675 000 ml @ 75 mls/hr IV . [id number] [facility] with Sodium Bicarb (1 Meq/ml) 150 ml Rx#:[id number] Dextrose 5% in Water 1, 750 000 ml @ 75 mls/hr IV . [id number] [facility] with Sodium Bicarb (1 Meq/ml) 150 ml Rx#:[id number] Magnesium Sulfate-D5w Pmx 100 1 gm In Dextrose/Water 1 100ml.bag @ 100 mls/hr IVPB Q1H [facility] Rx#: [id number] Piperacillin-Tazobactam 3 200 100 .375 gm In Sodium Chloride 0.9% 100 ml @ 25 mls/hr IVPB Q8HR [facility] Rx# :[id number] Sodium Chloride 0.9% 1, 315 110 000 ml @ 75 mls/hr IV . [id number] [facility] Rx#:[id number] Intake, IV Titration 429.317 348.355 8.131 Amount Norepinephrine 4 mg In 74.790 148.355 8.131 Sodium Chloride 0.9% 250 ml @ 0.03 MCG/KG/MIN 10. 024 mls/hr IV .Q24H [facility] Rx#:[id number] propofoL 1,000 mg In 354.527 200 Empty Bag 1 bag @ 15 MCG/ KG/MIN 7.893 mls/hr IV . [id number] [facility] Rx#:[id number] Output: Gastric Drainage 1475 650 Drainage 145 55 Left Lower Abdomen 145 55 Urine 910 870 Stool 50 Other: Voiding Method Indwelling Catheter Indwelling Catheter ABP, PAP, CO, CI - Last Documented Arterial Blood Pressure 139/39 - Constitutional General appearance: Present: no acute distress - Respiratory Respiratory: bilateral: CTA - Cardiovascular Rhythm: regular Heart sounds: normal: S1, S2 - Gastrointestinal General gastrointestinal: Present: soft - Integumentary Integumentary: Present: normal, normal turgor - Labs CBC & Chem 7: 01/30/23 06:35 01/29/23 04:30 Labs: Abnormal Lab Results - Last 24 Hours (Table) 01/28/23 01/29/23 01/29/23 Range/Units 15:10 11:25 17:19 WBC (3.8-10.6) k/uL RBC (3.80-5.40) m/uL Hgb (11.4-16.0) gm/dL Hct (34.0-46.0) % ABG pCO2 (35-45) mmHg ABG O2 Saturation (94-97) % POC Glucose (mg/dL) 161 H 191 H (70-110) mg/dL Procalcitonin 0.95 H (0.02-0.09) ng/mL 01/29/23 01/30/23 01/30/23 Range/Units 23:41 05:59 06:35 WBC 24.3 H (3.8-10.6) k/uL RBC 2.46 L (3.80-5.40) m/uL Hgb 7.5 L (11.4-16.0) gm/dL Hct 22.6 L (34.0-46.0) % ABG pCO2 31 L (35-45) mmHg ABG O2 Saturation 98.8 H (94-97) % POC Glucose (mg/dL) 166 H (70-110) mg/dL Procalcitonin (0.02-0.09) ng/mL Microbiology - Last 24 Hours (Table) 01/29/23 09:24 Gram Stain - Preliminary Diaz-Benítez Body Fluid Culture - Preliminary 01/28/23 22:08 Gram Stain - Preliminary Sputum Sputum Culture - Preliminary 01/28/23 17:29 Gram Stain - Preliminary Sputum Sputum Culture - Preliminary 01/27/23 14:11 Blood Culture - Preliminary Blood 01/27/23 14:00 Blood Culture - Preliminary Blood Assessment and Plan (1) Ischemic bowel disease Current Visit: Yes Status: Acute Code(s): K55.9 - VASCULAR DISORDER OF INTESTINE, UNSPECIFIED SNOMED Code(s): 05652876 (2) COPD (chronic obstructive pulmonary disease) Current Visit: No Status: Acute Code(s): J44.9 - CHRONIC OBSTRUCTIVE PULMONARY DISEASE, UNSPECIFIED SNOMED Code(s): 30838285 (3) Type 2 diabetes mellitus Current Visit: No Status: Acute Code(s): E11.9 - TYPE 2 DIABETES MELLITUS WITHOUT COMPLICATIONS SNOMED Code(s): 91698023 (4) Ischemic colitis Current Visit: Yes Status: Acute Code(s): K55.9 - VASCULAR DISORDER OF INTESTINE, UNSPECIFIED SNOMED Code(s): 63156356 (5) History of below-knee amputation of right lower extremity Current Visit: No Status: Acute Code(s): Z89.511 - ACQUIRED ABSENCE OF RIGHT LEG BELOW KNEE SNOMED Code(s): 160384190248495 (6) Opioid dependence Current Visit: No Status: Acute Code(s): F11.20 - OPIOID DEPENDENCE, UNCOMPLICATED SNOMED Code(s): 78312054 Plan: Appreciate multiple consultants. Check labs in the a.m. Patient seen and evaluated by nurse practitioner, physician in agreement with plan
[2023-01-30 09:35] LABS: Albumin 2.3 g/dL (3.5-5.0); Calcium 7.4 mg/dL (8.4-10.2); Potassium 3.1 mmol/L (3.5-5.1); Total Bilirubin 0.5 mg/dL (0.2-1.3); Total Protein 5.1 g/dL (6.3-8.2)
[2023-01-30] MEDS: SODIUM CHLORIDE 0.9% 1,000 ML IV SCH (10:11)
[2023-01-30] MEDS: POTASSIUM CHLORIDE 10 MEQ in WATER FOR INJECTION 1 100ML.BAG IVPB SCH ×4 (10:19→17:08)
--- NOTE | 2023-01-30 10:42 | P.PN ---
Subjective Patient is seen in follow-up for acute kidney injury. Renal function improved. Bicarb drip discontinued this morning. Acidosis improved. Potassium is low and is being replaced. Intubated. A weights PICC line placement for TPN. On low- dose Levophed which is being weaned. Vital signs are stable. General: Resting in bed. HEENT: Intubated. LUNGS: Scattered rhonchi. HEART: Rate and Rhythm are regular. ABDOMEN: Ileostomy noted. EXTREMITITES: No edema. Right BKA. Objective - Vital Signs Vital signs: Vital Signs Temp 100.3 F H 01/30/23 08:15 Pulse 100 01/30/23 10:00 Resp 23 01/30/23 10:00 BP 128/41 01/29/23 21:45 Pulse Ox 95 01/30/23 10:00 FiO2 40 01/30/23 09:21 Intake & Output 01/29/23 01/30/23 01/30/23 18:59 06:59 18:59 Intake Total 7397.709 7533.355 355.000 Output Total 2530 1625 850 Balance -610.683 -141.645 -495.000 Weight 84 kg 84 kg Intake: IV 1490 1135 250 ACETAMINOPHEN IV (For NPO 100 100 ) 1,000 mg In Empty Bag 1 bag @ 400 mls/hr IVPB Q6H [facility] Rx#:[id number] Anidulafungin 100 mg In 100 Sodium Chloride 0.9% 100 ml @ 84 mls/hr IVPB DAILY @1500 [facility] Rx#:[id number] Dextrose 5% in Water 1, 75 000 ml @ 75 mls/hr IV . [id number] [facility] with Sodium Bicarb (1 Meq/ml) 100 ml Rx#:[id number] Dextrose 5% in Water 1, 675 000 ml @ 75 mls/hr IV . [id number] [facility] with Sodium Bicarb (1 Meq/ml) 150 ml Rx#:[id number] Dextrose 5% in Water 1, 750 150 000 ml @ 75 mls/hr IV . [id number] [facility] with Sodium Bicarb (1 Meq/ml) 150 ml Rx#:[id number] Magnesium Sulfate-D5w Pmx 100 1 gm In Dextrose/Water 1 100ml.bag @ 100 mls/hr IVPB Q1H [facility] Rx#: [id number] Piperacillin-Tazobactam 3 200 100 100 .375 gm In Sodium Chloride 0.9% 100 ml @ 25 mls/hr IVPB Q8HR [facility] Rx# :[id number] Sodium Chloride 0.9% 1, 315 110 000 ml @ 75 mls/hr IV . [id number] [facility] Rx#:[id number] Intake, IV Titration 429.317 348.355 105.000 Amount Norepinephrine 4 mg In 74.790 148.355 26.508 Sodium Chloride 0.9% 250 ml @ 0.03 MCG/KG/MIN 10. 024 mls/hr IV .Q24H [facility] Rx#:[id number] propofoL 1,000 mg In 354.527 200 78.492 Empty Bag 1 bag @ 15 MCG/ KG/MIN 7.893 mls/hr IV . [id number] [facility] Rx#:[id number] Output: Gastric Drainage 1475 650 600 Drainage 145 55 Left Lower Abdomen 145 55 Urine 910 870 250 Stool 50 Other: Voiding Method Indwelling Catheter Indwelling Catheter Indwelling Catheter ABP, PAP, CO, CI - Last Documented Arterial Blood Pressure 179/44 - Labs CBC & Chem 7: 01/30/23 06:35 01/30/23 06:35 Labs: Abnormal Lab Results - Last 24 Hours (Table) 01/29/23 01/29/23 01/29/23 Range/Units 11:25 17:19 23:41 WBC (3.8-10.6) k/uL RBC (3.80-5.40) m/uL Hgb (11.4-16.0) gm/dL Hct (34.0-46.0) % ABG pCO2 (35-45) mmHg ABG O2 Saturation (94-97) % Potassium (3.5-5.1) mmol/L Carbon Dioxide (22-30) mmol/L BUN (7-17) mg/dL Creatinine (0.52-1.04) mg/dL POC Glucose (mg/dL) 161 H 191 H 166 H (70-110) mg/dL Calcium (8.4-10.2) mg/dL Alkaline Phosphatase (38-126) U/L Total Protein (6.3-8.2) g/dL Albumin (3.5-5.0) g/dL 01/30/23 01/30/23 01/30/23 Range/Units 05:59 06:35 06:35 WBC 24.3 H (3.8-10.6) k/uL RBC 2.46 L (3.80-5.40) m/uL Hgb 7.5 L (11.4-16.0) gm/dL Hct 22.6 L (34.0-46.0) % ABG pCO2 31 L (35-45) mmHg ABG O2 Saturation 98.8 H (94-97) % Potassium 3.1 L (3.5-5.1) mmol/L Carbon Dioxide 21 L (22-30) mmol/L BUN 37 H (7-17) mg/dL Creatinine 1.80 H (0.52-1.04) mg/dL POC Glucose (mg/dL) (70-110) mg/dL Calcium 7.4 L (8.4-10.2) mg/dL Alkaline Phosphatase 132 H (38-126) U/L Total Protein 5.1 L (6.3-8.2) g/dL Albumin 2.3 L (3.5-5.0) g/dL Microbiology - Last 24 Hours (Table) 01/29/23 09:24 Gram Stain - Preliminary Diaz-Benítez Body Fluid Culture - Preliminary 01/28/23 22:08 Gram Stain - Preliminary Sputum Sputum Culture - Preliminary 01/28/23 17:29 Gram Stain - Preliminary Sputum Sputum Culture - Preliminary 01/27/23 14:11 Blood Culture - Preliminary Blood 01/27/23 14:00 Blood Culture - Preliminary Blood Assessment and Plan Plan: Assessment: 1. Acute kidney injury secondary to ATN secondary to septic shock and cardiac arrest. Renal function better. Creatinine 1.8 today. Nonoliguric. No hydronephrosis noted on CAT scan. 2. Metabolic acidosis secondary to acute kidney injury. Status post bicarb drip. Improved. 3. Ischemic colitis with necrosis of large intestine status post exploratory laparotomy with total abdominal colectomy and end ileostomy area. 4. Status post PEA arrest 01/28/2023. 5. Septic shock secondary to ischemic bowel. Currently on low-dose Levophed which is being weaned. 6. Hypokalemia from intercellular shifting from IV bicarb and poor intake. Plan: Normal saline at 50 mL an hour. Awaits TPN. Replace potassium. Continue to monitor renal function and urine output. Avoid nephrotoxins. Possible extubation today.
--- NOTE | 2023-01-30 11:34 | P.PN ---
Subjective Progress Note Date: 01/30/23 Principal diagnosis: Abdominal sepsis and ileus 67-year-old female patient is being seen in follow-up on 01/22/2023. A complicated case of abdominal distention, stooling infection requiring surgical intervention along with multiple medical problems and comorbidities P she initi ally presented to us with abdominal pain and she has not had a bowel movement for more than a week. She had significant abdominal distention. She was taken to the operating room and the patient underwent laparotomy, lysis of adhesions, total colectomy, ileostomy and the patient is currently postop day #3. She has been intubated and kept on a mechanical ventilator since. For now, the patient is still on a mechanical ventilator. She is a propofol which is running at 35 mcg/kg/m and she is adequately sedated and symptoms mechanical ventilator. She is on assist-control mode of mechanical ventilation at the rate of 24 with a rate of 24, tidal volume of 400, FiO2 of 30% and a PEEP of 5. Chest x-ray shows cardiomegaly. Some limited infiltrates in the left lung base and the right lower lobe lateral segment. Orotracheal tube is in a good location. The patient also has a triple-lumen catheter in the left subclavian. NG tube is also in good location. For now, the output from the NG tube is minimal. Her IV fluids are running at a rate of 75 mL an hour and the fluid is in the form of a bicarb infusion. She is on no pressors at this point in time in the urine output is in order of 5200 mL an hour. In terms of her electrolytes, the patient's sodium level has been dropping and it's down to 129. BUN is at 40 with a creatinine of 3.47 and a potassium level is at 4.2. Her serum bicarb is improved. She was as low as 13 and she is currently up to 20. Nevertheless, she is developing an acute kidney injury. Her creatinine at time of admission was 1.8 from a normal baseline. She has developed that he worsening of renal function the creatinine is up to 3.47. CAT scan of the abdomen and the pelvis that was done on 01/19/2023 showed no evidence of any hydronephrosis he had she had pancolonic distention with cecum dilatation which was up to 9.4 cm in size. At the same time, her white cell count has dropped down to 17.9 from as high as 25. Hemoglobin is stable at 9.2 and a platelet count is at 159. In terms of cultures, sputum culture has been negative. Abdominal wound cultures were taken and that is also still pending for now and the patient is covered with IV Zosyn. She is afebrile. She is having episodes of low-grade fever. She is on IV Tylenol. She remains hemodynamically stable. The patient remains nothing by mouth for now. The patient has a YASMINE drain located in the left lower quadrant and the output is in order of 200 mL over the past 8 hours. The output is serosanguineous. Her lactic acid level dropped from 7.3 down to 1.8. Blood sugars under adequate control and the patient is taking NovoLog insulin sliding scale coverage. She takes Lantus 55 units twice a day at home. She is also on a combination of Seroquel and Topamax and Prozac at home. On 01/26/2023, the patient is postop day #7. She remains on oxygen at 2 L/m nasal cannula. She is still on TPN for nutritional support. At the same time the patient was given soft and chopped diet with one-to-one supervision. She is able to swallow. She is not meeting her requirements. NG tube was removed yesterday. Ileostomy is functional and there is positive output. She has no s pecific complaints. She is communicating at this point in time. She is hemodynamically stable. She is off the Cleviprex drip. She is on insulin signs good coverage and she is also on IV Zosyn.Blood work today shows a WD skeletal 11.3, hemoglobin 9.3 and a platelet count of 224. Sodium is at 132 with a potassium level of 3.2, BUN is 39 and the creatinine is 1.47. Sugar is 238. The patient is on Levemir insulin 30 units twice a day and she also taken a slight scale coverage. IV fluids and the form of normal saline at rate of 20 mL an hour. She is on Lovenox 30 mg subcu for DVT prophylaxis. The output from the YASMINE drain is serosanguineous and in the order of 70 mL overnight. On 01/27/2023, the patient is postoperative day #8. She is on room air oxygen for now. Doing well. TPN was discontinued and the patient is currently tolerating diet and her ileostomy is functional. No other new complaints otherwise for now. The YASMINE drain is still in place and output is serosanguineous. Hemodynamically stable. No new labs are available from today. Communicating although she is overall weak and somewhat lethargic. Remains on IV Zosyn. Remains on Lovenox for DVT prophylaxis. Remains on Levemir insulin 30 units twice a day and the NovoLog signs good coverage. 01/28/2023, the patient is postop day #9. She is awake and alert and communicating. She was taken off the TPN and currently she is tolerating oral intake. Her ileostomy is functional. YASMINE drains are in place and output is serosanguineous. She is overall weak and she is showing some progress on a daily basis. White cell count was 22 with a hemoglobin 10.2 and a platelet count of 366. BUN is 49 with a creatinine of 2.07 and sodium levels of 1:30. Potassium levels at 4.9. No other new complaints otherwise for now. She is hemodynamically stable. . Dilaudid for pain control. Levemir insulin 30 units twice a day plus a sliding scale coverage. Patient was reevaluated today on 01/29/2023, patient developed an episode of arrest yesterday, she had a 5 minute pulseless electrical activity, patient had to be intubated and mechanically ventilated. Patient had a cardiac arrest while undergoing a computed tomography scan. 3 ML's of brown fluid removed from the nasogastric tube patient was found to have ileus on the CT of the abdomen and pelvis. Received so far for fluids of IV fluids her down time was 3-5 minutes, her ventilator settings today are assist control rate of 24 pressure support of mechanical ventilation with PI of 22, inspiratory time is 0.9 FiO2 is 50%. And PEEP of 5. ABG showed a pO2 of 109 pCO2 of 30 pH of 7.38 hence FiO2 was cut down to 45%. Patient is receiving bicarb drip, she is supposed to have a PICC line placed today. Patient is status post colectomy for ischemic bowel and she was extubated at one point on 02/02. Yesterday she developed a sudden downhill course. She continues to have a functional colostomy, and she has a YASMINE drain in place. Patient remains on daptomycin and Zosyn. She is on propofol at 55 mcg/kg/m she is off norepinephrine today. And she is receiving mostly fluids. WBC count today is 20.8 hemoglobin is 8.4, electrolytes are normal BUN is 46 creatinine 2.14. Chest x-ray is suspicious for a right sideddisease/infiltrate/aspiration pneumonia although the possibility of interstitial edema is not entirely ruled out. But felt to be less likely. Endotracheal tube seems to be sitting up high in the trachea and it will be advanced to COPD Patient was reevaluated today on 01/30/2023, remains in the ICU, intubated and mechanically ventilated. Patient is on pressure control mode of mechanical ventilation with a rate of 24 PI of 22 inspiratory time of 0.9 FiO2 45% and PEEP of 5 ABG showed a pO2 of 106 pCO2 31 pH of 7.45 hence I recommended cutting down the FiO2 to 40%. Patient remains on norepinephrine at 0.08 propofol at 55 mcg/kg/m, bicarb at 75 mL per hour. Considering her bicarb is better today, I'm recommending we stop the bicarb drip. Patient seems to have functional ileostomy nonetheless she continues to have significant output via nasogastric tube. She had 700 mL out on the last shift. She is still quite sedated, and my plan today is to consider a weaning trial if possible off sedation or at least on a lower dose of propofol. Continues to have leukocytosis with WBC count 24.3, hemoglobin is 7.5. Basic metabolic profile is normal bicarb is 21 BUN is 37 creatinine 1.80, steadily improving over the last 2 days. Patient remains on antibiotics in the form of Zosyn, and axis, and daptomycin. This is mostly for ongoing abdominal sepsis. Patient seems to have adequate output in the ileostomy. Chest x-ray is showing improvement in her right lower lobe pneumonia. Sputum is positive for gram-negative bacilli final identification is pending Objective - Vital Signs Vital signs: Vital Signs Temp 100.3 F H 01/30/23 08:15 Pulse 100 01/30/23 10:00 Resp 23 01/30/23 10:00 BP 128/41 01/29/23 21:45 Pulse Ox 95 01/30/23 10:00 FiO2 40 01/30/23 09:21 Intake & Output 01/29/23 01/30/23 01/30/23 18:59 06:59 18:59 Intake Total 2578.503 1237.355 359.254 Output Total 2530 1625 850 Balance -610.683 -141.645 -490.746 Weight 84 kg 84 kg Intake: IV 1490 1135 250 ACETAMINOPHEN IV (For NPO 100 100 ) 1,000 mg In Empty Bag 1 bag @ 400 mls/hr IVPB Q6H [facility] Rx#:[id number] Anidulafungin 100 mg In 100 Sodium Chloride 0.9% 100 ml @ 84 mls/hr IVPB DAILY @1500 [facility] Rx#:[id number] Dextrose 5% in Water 1, 75 000 ml @ 75 mls/hr IV . [id number] [facility] with Sodium Bicarb (1 Meq/ml) 100 ml Rx#:[id number] Dextrose 5% in Water 1, 675 000 ml @ 75 mls/hr IV . [id number] [facility] with Sodium Bicarb (1 Meq/ml) 150 ml Rx#:[id number] Dextrose 5% in Water 1, 750 150 000 ml @ 75 mls/hr IV . [id number] [facility] with Sodium Bicarb (1 Meq/ml) 150 ml Rx#:[id number] Magnesium Sulfate-D5w Pmx 100 1 gm In Dextrose/Water 1 100ml.bag @ 100 mls/hr IVPB Q1H [facility] Rx#: [id number] Piperacillin-Tazobactam 3 200 100 100 .375 gm In Sodium Chloride 0.9% 100 ml @ 25 mls/hr IVPB Q8HR [facility] Rx# :[id number] Sodium Chloride 0.9% 1, 315 110 000 ml @ 75 mls/hr IV . [id number] [facility] Rx#:[id number] Intake, IV Titration 429.317 348.355 109.254 Amount Norepinephrine 4 mg In 74.790 148.355 26.508 Sodium Chloride 0.9% 250 ml @ 0.03 MCG/KG/MIN 10. 024 mls/hr IV .Q24H [facility] Rx#:[id number] propofoL 1,000 mg In 354.527 200 82.746 Empty Bag 1 bag @ 15 MCG/ KG/MIN 7.893 mls/hr IV . [id number] [facility] Rx#:[id number] Output: Gastric Drainage 1475 650 600 Drainage 145 55 Left Lower Abdomen 145 55 Urine 910 870 250 Stool 50 Other: Voiding Method Indwelling Catheter Indwelling Catheter Indwelling Catheter ABP, PAP, CO, CI - Last Documented Arterial Blood Pressure 179/44 - Exam Physical Exam: Revealed 67-year-old female, intubated and mechanically ventilated. On propofol. And norepinephrine at 0.08 mcg/kg/m Head: Atraumatic, normocephalic. HEENT:[Neck is supple.] [No neck masses.] [No thyromegaly.] [No JVD.] EOMI, nonicteric. Chest: Crackles and rhonchi noted at the bases bilaterally more so on the right base..] Cardiac Exam: [Normal S1 and S2, no S3 gallop, no murmur.] Abdomen: [Soft, nontender, evidence of ileostomy noted. And YASMINE drains noted. Bowel sounds are hypoactive. No abdominal distention is appreciated. Some output is noted from the ileostomy at this point Extremities: [No clubbing, no edema, no cyanosis.] Right above-knee amputation gangrenous changes of toes on the Neurological Exam: Could not assess, patient is sedated, on propofol. Psychiatric: Could not assess, sedated on propofol. Skin: No rashes. - Labs CBC & Chem 7: 01/30/23 06:35 01/30/23 06:35 Labs: Abnormal Lab Results - Last 24 Hours (Table) 01/29/23 01/29/23 01/29/23 Range/Units 11:25 17:19 23:41 WBC (3.8-10.6) k/uL RBC (3.80-5.40) m/uL Hgb (11.4-16.0) gm/dL Hct (34.0-46.0) % ABG pCO2 (35-45) mmHg ABG O2 Saturation (94-97) % Potassium (3.5-5.1) mmol/L Carbon Dioxide (22-30) mmol/L BUN (7-17) mg/dL Creatinine (0.52-1.04) mg/dL POC Glucose (mg/dL) 161 H 191 H 166 H (70-110) mg/dL Calcium (8.4-10.2) mg/dL Alkaline Phosphatase (38-126) U/L Total Protein (6.3-8.2) g/dL Albumin (3.5-5.0) g/dL 01/30/23 01/30/23 01/30/23 Range/Units 05:59 06:35 06:35 WBC 24.3 H (3.8-10.6) k/uL RBC 2.46 L (3.80-5.40) m/uL Hgb 7.5 L (11.4-16.0) gm/dL Hct 22.6 L (34.0-46.0) % ABG pCO2 31 L (35-45) mmHg ABG O2 Saturation 98.8 H (94-97) % Potassium 3.1 L (3.5-5.1) mmol/L Carbon Dioxide 21 L (22-30) mmol/L BUN 37 H (7-17) mg/dL Creatinine 1.80 H (0.52-1.04) mg/dL POC Glucose (mg/dL) (70-110) mg/dL Calcium 7.4 L (8.4-10.2) mg/dL Alkaline Phosphatase 132 H (38-126) U/L Total Protein 5.1 L (6.3-8.2) g/dL Albumin 2.3 L (3.5-5.0) g/dL Microbiology - Last 24 Hours (Table) 01/27/23 14:11 Blood Culture - Preliminary Blood 01/27/23 14:00 Blood Culture - Preliminary Blood 01/28/23 22:08 Gram Stain - Preliminary Sputum Sputum Culture - Preliminary Gram Neg Bacilli 01/28/23 15:10 Blood Culture - Preliminary Blood 01/28/23 17:29 Gram Stain - Preliminary Sputum Sputum Culture - Preliminary Gram Neg Bacilli 01/29/23 09:24 Gram Stain - Preliminary [place] [facility] Fluid Culture - Preliminary Assessment and Plan Assessment: Impression: Acute hypoxic respiratory failure secondary to cardiac arrest requiring intubation and mechanical ventilation Cardiac arrest requiring intubation and mechanical ventilation, patient had a PEA cardiac arrest, down time of 5 minutes. In-hospital cardiac arrest. This occurred on 01/28/2023 Status post exploratory laparotomy, lysis of adhesions, total colectomy, ileostomy, abdominal washout, placement of YASMINE drains, placement of wound VAC postoperative day #11 patient was extubated after this surgery on 01/23/2023 and has been off mechanical ventilation until 01/28 requiring reintubation because of PEA. Acute kidney injury improving this is mostly a picture of acute tubular necrosis. 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 History of type 2 diabetes Stress incontinence Hypothyroidism Dyslipidemia Underlying COPD and ongoing tobacco use History of depression Suspect acute aspiration pneumonia Recommendation: Continue ventilatory support however will have the patient go through a sedation interruption and assessment of mental status, assessment of weaning parameters and decide accordingly whether to proceed with weaning off mechanical ve ntilation Continue nasogastric tube to suction, patient had severe ileus Consider TPN Discontinue bicarb Continue antibiotics/antifungal , Eraxis, daptomycin and Zosyn Continue GI and DVT prophylaxis Continue insulin as per scale Continue bronchodilators Remains critically ill Prognosis is extremely poor and guarded We'll continue to follow Critical care time is over 30 minutes Time with Patient: Greater than 30
[2023-01-30] MEDS ORDERED: DEXMEDETOMIDINE/0.9% NACL(PMX) 400 MCG in EMPTY BAG 1 BAG IV SCH (12:15)
[2023-01-30 12:18] LABS: Glucose,Whole Blood 34 mg/dL (70-110)
[2023-01-30 12:19] LABS: Glucose,Whole Blood 33 mg/dL (70-110)
[2023-01-30] MEDS: DEXTROSE 50% SYRINGE 50 ML IVP PRN ×2 (12:21→16:50)
[2023-01-30 12:36] LABS: Glucose,Whole Blood 146 mg/dL (70-110)
[2023-01-30 13:04] LABS: ABG Base Excess -1.9 mmol/L; ABG HCO3 23 mmol/L (21-25); ABG Oxygen Saturation 96.4 % (94-97); ABG PCO2 36 mmHg (35-45); ABG PH 7.41 (7.35-7.45); ABG PO2 81 mmHg (83-108); ABG TCO2 24 mmol/L (19-24); Allen Test Performed? Yes
[2023-01-30] MEDS: CLEVIDIPINE BUTYRATE 25 MG in EMPTY BAG 1 BAG IV SCH ×2 (14:30→16:13)
--- NOTE | 2023-01-30 14:44 | XR ---
EXAMINATION TYPE: XR chest 1V DATE OF EXAM: 01/30/2023 COMPARISON: NONE HISTORY: PICC line placement TECHNIQUE: Single frontal view of the chest is obtained. FINDINGS: Right-sided PICC line with the tip overlying the SVC atrial junction. NG tube noted there is bilateral infiltrates. No pneumothorax or sizable pleural effusion. Heart size normal. Atheroscler otic change aorta. IMPRESSION: Bilateral infiltrates correlate for pneumonia. Right-sided PICC line with the tip overly ing SVC.
--- NOTE | 2023-01-30 14:47 | IR ---
PICC LINE PLACEMENT: HISTORY: Infection requiring long-term antibiotic therapy PROCEDURE: Ultrasound guidance of PICC line placement. COMPLICATIONS: None ANESTHESIA: 1. 1% Lidocaine locally. FINDINGS/TECHNIQUE: The procedure was explained to the patient. The risks, complications, benefits and alternatives were discussed and any questions were answered. Informed consent was obtained. The patient was placed supine on the fluoroscopic table and prepped and draped in the usual sterile fash ion. Utilizing a 21 gauge needle and sonographic guidance, access in the left basilic vein was achi eved and there is placement of a 0.018 guidewire. The vein is patent. A 5-F. sheath was placed over the guidewire. The guidewire and dilator were removed and a 5-F. Double lumen PICC line was placed through the sheath with the chest x-ray confirming the tip at the level of the SVC. The sheath was r emoved, the catheter was flushed and sutured into position. The patient was stable throughout the pr ocedure and remained stable upon discharge from the Department of Radiology. The vein puncture was patent under ultrasound. A hansen scale image was obtained to document patency of the vein punctured. All elements of the maximal barrier technique were utilized. IMPRESSION: 1. Successful PICC line placement under ultrasound performed bedside within the ICU.
[2023-01-30] MEDS: CHOLECALCIFEROL 125 MCG (5000 IU) TABLET PO SCH (15:29)
[2023-01-30] MEDS: MULTIVITAMINS, THERA 1 EACH TAB PO SCH (15:29)
[2023-01-30] MEDS: FLUoxetine HCL 20 MG CAP PO SCH (15:29)
[2023-01-30] MEDS: ANIDULAFUNGIN 100 MG in SODIUM CHLORIDE 0.9% 100 ML IVPB SCH (15:34)
[2023-01-30] MEDS: hydrALAZINE HCL 20 MG/ML 1 ML VIAL IVP PRN (15:50)
[2023-01-30] MEDS ORDERED: MVI, ADULT NO.4 WITH VIT K 10 ML, TRACE (CONC-1ML/DOSE) 1 ML, SODIUM ACETATE 34 MEQ, PO... IV ONE ×6 (16:00)
--- NOTE | 2023-01-30 16:36 | P.PN ---
Subjective Progress Note Date: 01/30/23 CHIEF COMPLAINT: Acute abdomen with ischemic bowel HISTORY OF PRESENT ILLNESS: Patient is status post exploratory laparotomy with total abdominal colectomy and end ileostomy, lysis of adhesions on 01/19/23. Patient remains in the ICU. Patient is undergoing CPAP trial today. She is off the Levophed. She is still having a lot of output through the NG tube with 700 throughout the day in 652 the night. YASMINE drain with 50 mL of serosanguineous output through the night. Her ostomy is functioning. Afebrile. Mildly tachycardic. WBC 24.3 Hgb 7.5 platelets 390 symptoms 137 potassium 3.1 creatinine 1.80 PHYSICAL EXAM: VITAL SIGNS: Reviewed GENERAL: Well-developed in no acute distress. HEENT: No sclera icterus. Moist buccal mucosa. Head is atraumatic, normocephalic. NECK: Supple without lymphadenopathy. CHEST: Non-labored respirations and equal bilateral excursions. CARDIOVASCULAR: Palpable 2+ radial pulses. ABDOMEN: Soft. Nondistended. Optifoam dressing clean and dry. YASMINE drain ser osanguineous output. Stool present in ostomy MUSCULOSKELETAL: No clubbing or cyanosis. NEUROLOGIC: Patient intubated and sedated PSYCH: Appropriate affect. Alert and oriented to person, place and time. SKIN: Well perfused. Good skin turgor. ASSESSMENT: 1. Acute abdomen with ischemic bowel 2. Hypertensive heart disease with congestive heart failure 3. Morbid obesity due to excess calories, BMI over 34.8 4. Acute renal failure due to dehydration 5. History of lower extremity amputee 6. Chronic obstructive pulmonary disease 7. Diabetes type 2, insulin-dependent with diabetic nephropathy 8. Gastroesophageal reflux disease 9. Hypotension due to hypovolemia 10. Lactic acidosis 11. Septic shock due to bowel 12. Status post total abdominal colectomy 13. Cardiac arrest 14. Severe ileus 15. Suspected aspiration pneumonia PLAN: -Continue ICU management -Continue supportive care -Continue antibiotics -Continue to monitor NG tube output -Continue TPN for nutrition support -Continue to monitor and replace electrolytes -GI prophylaxis Protonix and DVT prophylaxis Lovenox Physician Cuff Matcher note has been reviewed by physician. Signing provider agrees with the documented findings, assessment, and plan of care. Objective - Vital Signs Vital signs: Vital Signs Temp 99.0 F 01/30/23 12:15 Pulse 107 H 01/30/23 12:15 Resp 33 H 01/30/23 12:15 BP 128/41 01/29/23 21:45 Pulse Ox 93 L 01/30/23 12:15 FiO2 40 01/30/23 12:00 Intake & Output 01/29/23 01/30/23 01/30/23 18:59 06:59 18:59 Intake Total 7316.350 2629.355 576.508 Output Total 2530 1625 1100 Balance -610.683 -141.645 -523.492 Weight 84 kg 84 kg Intake: IV 1490 1135 450 ACETAMINOPHEN IV (For NPO 100 100 ) 1,000 mg In Empty Bag 1 bag @ 400 mls/hr IVPB Q6H [facility] Rx#:[id number] Anidulafungin 100 mg In 100 Sodium Chloride 0.9% 100 ml @ 84 mls/hr IVPB DAILY @1500 [facility] Rx#:[id number] Dextrose 5% in Water 1, 75 000 ml @ 75 mls/hr IV . [id number] [facility] with Sodium Bicarb (1 Meq/ml) 100 ml Rx#:[id number] Dextrose 5% in Water 1, 675 000 ml @ 75 mls/hr IV . [id number] [facility] with Sodium Bicarb (1 Meq/ml) 150 ml Rx#:[id number] Dextrose 5% in Water 1, 750 150 000 ml @ 75 mls/hr IV . [id number] [facility] with Sodium Bicarb (1 Meq/ml) 150 ml Rx#:[id number] Magnesium Sulfate-D5w Pmx 100 1 gm In Dextrose/Water 1 100ml.bag @ 100 mls/hr IVPB Q1H [facility] Rx#: [id number] Piperacillin-Tazobactam 3 200 100 100 .375 gm In Sodium Chloride 0.9% 100 ml @ 25 mls/hr IVPB Q8HR [facility] Rx# :[id number] Potassium Chloride 10 meq 200 In Water For Injection 1 100ml.bag @ 100 mls/hr IVPB Q1HR [facility] Rx#: [id number] Sodium Chloride 0.9% 1, 315 110 000 ml @ 75 mls/hr IV . [id number] [facility] Rx#:[id number] Intake, IV Titration 429.317 348.355 126.508 Amount Norepinephrine 4 mg In 74.790 148.355 26.508 Sodium Chloride 0.9% 250 ml @ 0.03 MCG/KG/MIN 10. 024 mls/hr IV .Q24H [facility] Rx#:[id number] propofoL 1,000 mg In 354.527 200 100.000 Empty Bag 1 bag @ 15 MCG/ KG/MIN 7.893 mls/hr IV . [id number] [facility] Rx#:[id number] Output: Gastric Drainage 1475 650 600 Drainage 145 55 Left Lower Abdomen 145 55 Urine 910 870 500 Stool 50 Other: Voiding Method Indwelling Catheter Indwelling Catheter Indwelling Catheter ABP, PAP, CO, CI - Last Documented Arterial Blood Pressure 176/51 - Labs CBC & Chem 7: 01/30/23 06:35 01/30/23 06:35 Labs: Abnormal Lab Results - Last 24 Hours (Table) 01/29/23 01/29/23 01/30/23 Range/Units 17:19 23:41 05:59 WBC (3.8-10.6) k/uL RBC (3.80-5.40) m/uL Hgb (11.4-16.0) gm/dL Hct (34.0-46.0) % ABG pCO2 31 L (35-45) mmHg ABG O2 Saturation 98.8 H (94-97) % Potassium (3.5-5.1) mmol/L Carbon Dioxide (22-30) mmol/L BUN (7-17) mg/dL Creatinine (0.52-1.04) mg/dL POC Glucose (mg/dL) 191 H 166 H (70-110) mg/dL Calcium (8.4-10.2) mg/dL Alkaline Phosphatase (38-126) U/L Total Protein (6.3-8.2) g/dL Albumin (3.5-5.0) g/dL 01/30/23 01/30/23 01/30/23 Range/Units 06:35 06:35 12:16 WBC 24.3 H (3.8-10.6) k/uL RBC 2.46 L (3.80-5.40) m/uL Hgb 7.5 L (11.4-16.0) gm/dL Hct 22.6 L (34.0-46.0) % ABG pCO2 (35-45) mmHg ABG O2 Saturation (94-97) % Potassium 3.1 L (3.5-5.1) mmol/L Carbon Dioxide 21 L (22-30) mmol/L BUN 37 H (7-17) mg/dL Creatinine 1.80 H (0.52-1.04) mg/dL POC Glucose (mg/dL) 34 L (70-110) mg/dL Calcium 7.4 L (8.4-10.2) mg/dL Alkaline Phosphatase 132 H (38-126) U/L Total Protein 5.1 L (6.3-8.2) g/dL Albumin 2.3 L (3.5-5.0) g/dL 01/30/23 01/30/23 Range/Units 12:18 12:35 WBC (3.8-10.6) k/uL RBC (3.80-5.40) m/uL Hgb (11.4-16.0) gm/dL Hct (34.0-46.0) % ABG pCO2 (35-45) mmHg ABG O2 Saturation (94-97) % Potassium (3.5-5.1) mmol/L Carbon Dioxide (22-30) mmol/L BUN (7-17) mg/dL Creatinine (0.52-1.04) mg/dL POC Glucose (mg/dL) 33 L 146 H (70-110) mg/dL Calcium (8.4-10.2) mg/dL Alkaline Phosphatase (38-126) U/L Total Protein (6.3-8.2) g/dL Albumin (3.5-5.0) g/dL Microbiology - Last 24 Hours (Table) 01/27/23 14:11 Blood Culture - Preliminary Blood 01/27/23 14:00 Blood Culture - Preliminary Blood 01/28/23 22:08 Gram Stain - Preliminary Sputum Sputum Culture - Preliminary Gram Neg Bacilli 01/28/23 15:10 Blood Culture - Preliminary Blood 01/28/23 17:29 Gram Stain - Preliminary Sputum Sputum Culture - Preliminary Gram Neg Bacilli 01/29/23 09:24 Gram Stain - Preliminary [facility] Body Fluid Culture - Preliminary
[2023-01-30 16:47] LABS: Glucose,Whole Blood 39 mg/dL (70-110)
[2023-01-30] MEDS: VITAMIN E (DL,TOCOPHERYL ACET) 400 UNIT (180 MG) CAP PO SCH (16:51)
[2023-01-30 17:06] LABS: Glucose,Whole Blood 166 mg/dL (70-110)
[2023-01-30] MEDS: QUEtiapine 200 MG TAB PO SCH (20:07)
[2023-01-30 20:52] LABS: Glucose,Whole Blood 65 mg/dL (70-110)
[2023-01-30 21:32] LABS: Glucose,Whole Blood 126 mg/dL (70-110)
[2023-01-31 00:08] LABS: Glucose,Whole Blood 80 mg/dL (70-110)
[2023-01-31] MEDS: INSULIN ASPART (NovoLOG) 100 UNIT/ML VIAL SQ SCH ×4 (00:12→18:06)
[2023-01-31] MEDS: CLEVIDIPINE BUTYRATE 25 MG in EMPTY BAG 1 BAG IV SCH ×4 (00:12→21:04)
[2023-01-31] MEDS: PIPERACILLIN-TAZOBACTAM 3.375 GM in SODIUM CHLORIDE 0.9% 100 ML IVPB SCH ×2 (00:13→09:51)
[2023-01-31] MEDS: HYDROmorphone 1 MG/ML 1 ML SYRINGE IVP PRN ×6 (00:57→22:20)
[2023-01-31] MEDS: ACETAMINOPHEN IV (For NPO) 1,000 MG in EMPTY BAG 1 BAG IVPB SCH ×4 (04:43→22:36)
[2023-01-31 04:52] LABS: Glucose,Whole Blood 115 mg/dL (70-110)
[2023-01-31 04:58] LABS: HCT 27.1 % (34.0-46.0); HGB 8.8 gm/dL (11.4-16.0); MCH 29.9 pg (25.0-35.0); MCHC 32.6 g/dL (31.0-37.0); MCV 91.5 fL (80.0-100.0); Mean Platelet Volume 7.9; Platelet Count 512 k/uL (150-450); RBC 2.96 m/uL (3.80-5.40); RDW 14.6 % (11.5-15.5); WBC 30.4 k/uL (3.8-10.6)
[2023-01-31 05:15] LABS: Albumin 2.7 g/dL (3.5-5.0); Calcium 7.9 mg/dL (8.4-10.2); Magnesium 1.7 mg/dL (1.6-2.3); Total Bilirubin 0.6 mg/dL (0.2-1.3); Total Protein 5.9 g/dL (6.3-8.2)
[2023-01-31 05:21] LABS: Potassium 2.7 mmol/L (3.5-5.1)
[2023-01-31 05:44] LABS: Anisocytosis (M) Present; Band Neutrophils % 6 %; Lymphocytes # (M) 1.22 k/uL (1.0-4.8); Neutrophils % (M) 88 %; Nucleated Red Blood Cells 0 /100 WBC (0-0); Polychromasia Present; Total Cells Counted 200
[2023-01-31] MEDS: POTASSIUM CHLORIDE 10 MEQ in WATER FOR INJECTION 1 100ML.BAG IVPB SCH ×8 (06:01→22:35)
[2023-01-31] MEDS: INSULIN DETEMIR (LEVEMIR) 100 UNIT/ML SYR SQ SCH ×2 (06:04→19:52)
[2023-01-31] MEDS: SODIUM CHLORIDE 0.9% 1,000 ML IV SCH (06:45)
[2023-01-31] MEDS ORDERED: MAGNESIUM SULFATE-D5W PMX 1 GM in DEXTROSE/WATER 1 100ML.BAG IVPB ONE ×2 (07:30→20:00)
--- NOTE | 2023-01-31 07:35 | XR ---
EXAMINATION TYPE: XR chest 1V portable DATE OF EXAM: 01/31/2023 6:08 AM COMPARISON: Chest radiographs from 01/30/2023 TECHNIQUE: XR chest 1V portable Frontal view of the chest. CLINICAL INDICATION:Female, 67 years old with history of Tube placement; FINDINGS: Lungs/Pleura: Similar multifocal airspace opacities. No evidence of pneumothorax or pleural effusion. Pulmonary vascularity: Unremarkable. Heart/mediastinum: Cardiomediastinal silhouette is unremarkable. Musculoskeletal: No acute osseous pathology. Other findings: None Lines/Tubes: Nasogastric tube with its distal tip and side-port projecting under the diaphragm and projecting over the gastric lumen. Right-sided PICC line with distal tip at the cavoatrial junction. IMPRESSION: 1. Similar multifocal airspace opacities. 2. Stable support line and tube.
[2023-01-31] MEDS: IPRATROPIUM-ALBUTEROL 3 ML NEB INHALATION SCH ×4 (07:55→20:41)
--- NOTE | 2023-01-31 08:42 | P.PN ---
Subjective Principal diagnosis: Ischemic colitis The patient is a 67-year-old female essentially admitted for ischemic colitis. The patient had code after having recovery last week. The patient is now extubated and seems more hemodynamically stable. Still copious amounts of gastric fluid is being extracted. Objective - Vital Signs Vital signs: Vital Signs Temp 98.2 F 01/31/23 04:00 Pulse 100 01/31/23 08:14 Resp 28 H 01/31/23 07:00 BP 141/60 01/31/23 07:00 Pulse Ox 93 L 01/31/23 07:58 FiO2 40 01/30/23 12:00 Intake & Output 01/30/23 01/31/23 01/31/23 18:59 06:59 18:59 Intake Total 3683.078 0903.200 Output Total 2275 4280 Balance -870.650 -2640.800 Weight 81.2 kg Intake: IV 1210 1370 ACETAMINOPHEN IV (For NPO 100 ) 1,000 mg In Empty Bag 1 bag @ 400 mls/hr IVPB Q6H [facility] Rx#:[id number] Anidulafungin 100 mg In 100 100 Sodium Chloride 0.9% 100 ml @ 84 mls/hr IVPB DAILY @1500 [facility] Rx#:[id number] Dextrose 5% in Water 1, 150 000 ml @ 75 mls/hr IV . [id number] [facility] with Sodium Bicarb (1 Meq/ml) 150 ml Rx#:[id number] Mvi, Adult No.4 with Vit 60 390 K 10 ml Trace (Conc-1Ml/ Dose) 1 ml Sodium Acetate 34 meq Potassium Chloride 20 meq Calcium Gluconate 1 gm Magnesium Sulfate gm 0.5 gm In Amino Acid 4.25%-D10w 1, 000 ml @ 61 mls/hr IV .BY DURATION [facility] Rx#: [id number] Piperacillin-Tazobactam 3 200 100 .375 gm In Sodium Chloride 0.9% 100 ml @ 25 mls/hr IVPB Q8HR [facility] Rx# :[id number] Potassium Chloride 10 meq 300 100 In Water For Injection 1 100ml.bag @ 100 mls/hr IVPB Q1HR [facility] Rx#: [id number] Sodium Chloride 0.9% 1, 400 580 000 ml @ 50 mls/hr IV . Q20H [facility] Rx#:[id number] Intake, IV Titration 194.350 69.200 Amount Clevidipine Butyrate 25 53.666 69.200 mg In Empty Bag 1 bag @ 1 MG/HR 2 mls/hr IV .Q24H [facility] Rx#:[id number] Norepinephrine 4 mg In 39.763 Sodium Chloride 0.9% 250 ml @ 0.03 MCG/KG/MIN 10. 024 mls/hr IV .Q24H [facility] Rx#:[id number] propofoL 1,000 mg In 100.921 Empty Bag 1 bag @ 15 MCG/ KG/MIN 7.893 mls/hr IV . [id number] [facility] Rx#:[id number] Oral 200 Output: Gastric Drainage 800 1400 Drainage 90 Left Lower Abdomen 90 Urine 1475 2790 Other: Voiding Method Indwelling Catheter Indwelling Catheter # Bowel Movements 1 ABP, PAP, CO, CI - Last Documented Arterial Blood Pressure 162/42 - Constitutional General appearance: Present: obese. Absent: cooperative - Respiratory Respiratory: bilateral: diminished - Cardiovascular Rhythm: regular Heart sounds: normal: S1, S2 Abnormal Heart Sounds: Absent: S3 Gallop - Gastrointestinal General gastrointestinal: Present: distended, soft - Integumentary Integumentary: Absent: cellulitis - Psychiatric Psychiatric: Absent: A&O x's 3 - Labs CBC & Chem 7: 01/31/23 04:45 01/31/23 04:45 Labs: Abnormal Lab Results - Last 24 Hours (Table) 01/30/23 01/30/23 01/30/23 Range/Units 06:35 12:16 12:18 WBC (3.8-10.6) k/uL RBC (3.80-5.40) m/uL Hgb (11.4-16.0) gm/dL Hct (34.0-46.0) % Plt Count (150-450) k/uL Neutrophils # (Manual) (1.3-7.7) k/uL ABG pO2 (83-108) mmHg Potassium 3.1 L (3.5-5.1) mmol/L Carbon Dioxide 21 L (22-30) mmol/L BUN 37 H (7-17) mg/dL Creatinine 1.80 H (0.52-1.04) mg/dL Glucose (74-99) mg/dL POC Glucose (mg/dL) 34 L 33 L (70-110) mg/dL Calcium 7.4 L (8.4-10.2) mg/dL Alkaline Phosphatase 132 H (38-126) U/L Total Protein 5.1 L (6.3-8.2) g/dL Albumin 2.3 L (3.5-5.0) g/dL 01/30/23 01/30/23 01/30/23 Range/Units 12:35 13:01 16:46 WBC (3.8-10.6) k/uL RBC (3.80-5.40) m/uL Hgb (11.4-16.0) gm/dL Hct (34.0-46.0) % Plt Count (150-450) k/uL Neutrophils # (Manual) (1.3-7.7) k/uL ABG pO2 81 L (83-108) mmHg Potassium (3.5-5.1) mmol/L Carbon Dioxide (22-30) mmol/L BUN (7-17) mg/dL Creatinine (0.52-1.04) mg/dL Glucose (74-99) mg/dL POC Glucose (mg/dL) 146 H 39 L (70-110) mg/dL Calcium (8.4-10.2) mg/dL Alkaline Phosphatase (38-126) U/L Total Protein (6.3-8.2) g/dL Albumin (3.5-5.0) g/dL 01/30/23 01/30/23 01/30/23 Range/Units 17:04 20:51 21:31 WBC (3.8-10.6) k/uL RBC (3.80-5.40) m/uL Hgb (11.4-16.0) gm/dL Hct (34.0-46.0) % Plt Count (150-450) k/uL Neutrophils # (Manual) (1.3-7.7) k/uL ABG pO2 (83-108) mmHg Potassium (3.5-5.1) mmol/L Carbon Dioxide (22-30) mmol/L BUN (7-17) mg/dL Creatinine (0.52-1.04) mg/dL Glucose (74-99) mg/dL POC Glucose (mg/dL) 166 H 65 L 126 H (70-110) mg/dL Calcium (8.4-10.2) mg/dL Alkaline Phosphatase (38-126) U/L Total Protein (6.3-8.2) g/dL Albumin (3.5-5.0) g/dL 01/31/23 01/31/23 01/31/23 Range/Units 04:45 04:45 04:50 WBC 30.4 H (3.8-10.6) k/uL RBC 2.96 L (3.80-5.40) m/uL Hgb 8.8 L (11.4-16.0) gm/dL Hct 27.1 L (34.0-46.0) % Plt Count 512 H (150-450) k/uL Neutrophils # (Manual) 28.50 H (1.3-7.7) k/uL ABG pO2 (83-108) mmHg Potassium 2.7 L* (3.5-5.1) mmol/L Carbon Dioxide 21 L (22-30) mmol/L BUN 22 H (7-17) mg/dL Creatinine 1.06 H (0.52-1.04) mg/dL Glucose 111 H (74-99) mg/dL POC Glucose (mg/dL) 115 H (70-110) mg/dL Calcium 7.9 L (8.4-10.2) mg/dL Alkaline Phosphatase 177 H (38-126) U/L Total Protein 5.9 L (6.3-8.2) g/dL Albumin 2.7 L (3.5-5.0) g/dL Microbiology - Last 24 Hours (Table) 01/27/23 14:11 Blood Culture - Preliminary Blood 01/27/23 14:00 Blood Culture - Preliminary Blood 01/28/23 22:08 Gram Stain - Preliminary Sputum Sputum Culture - Preliminary Gram Neg Bacilli 01/28/23 15:10 Blood Culture - Preliminary Blood 01/28/23 17:29 Gram Stain - Preliminary Sputum Sputum Culture - Preliminary Gram Neg Bacilli 01/29/23 09:24 Gram Stain - Preliminary [facility] Body Fluid Culture - Preliminary Assessment and Plan (1) Ischemic bowel disease Current Visit: Yes Status: Acute Code(s): K55.9 - VASCULAR DISORDER OF [place], UNSPECIFIED SNOMED Code(s): 52736856 (2) Ischemic colitis Current Visit: Yes Status: Acute Code(s): K55.9 - VASCULAR DISORDER OF INTESTINE, UNSPECIFIED SNOMED Code(s): 28425808 (3) COPD (chronic obstructive pulmonary disease) Current Visit: No Status: Acute Code(s): J44.9 - CHRONIC OBSTRUCTIVE PULMONARY DISEASE, UNSPECIFIED SNOMED Code(s): 29807556 (4) History of below-knee amputation of right lower extremity Current Visit: No Status: Acute Code(s): Z89.511 - ACQUIRED ABSENCE OF RIGHT LEG BELOW KNEE SNOMED Code(s): 266233047673883 (5) Opioid dependence Current Visit: No Status: Acute Code(s): F11.20 - OPIOID DEPENDENCE, UNCOMPLICATED SNOMED Code(s): 53459547 (6) Type 2 diabetes mellitus Current Visit: No Status: Acute Code(s): E11.9 - TYPE 2 DIABETES MELLITUS WITHOUT COMPLICATIONS SNOMED Code(s): 54361370 Plan: Continue to follow during his ICU management. The patient is now extubated Prognosis is guarded. Check CBC and CMP in a.m. Appreciate multiple consultants input Anticipate slow recovery Dietary for appropriate feeding. Hemodynamically stable
[2023-01-31] MEDS: ENOXAPARIN 30 MG/0.3 ML SYRINGE SQ SCH (09:13)
[2023-01-31] MEDS: PANTOPRAZOLE 40 MG/10 ML VIAL IV SCH (09:13)
[2023-01-31] MEDS: LEVOTHYROXINE 88 MCG TAB PO SCH (09:14)
[2023-01-31] MEDS: OXYBUTYNIN 10 MG TAB.ER.24 PO SCH (09:14)
[2023-01-31] MEDS: TOPIRAMATE 25 MG TAB PO SCH (09:14)
[2023-01-31] MEDS: LORATADINE 10 MG TAB PO SCH (09:14)
[2023-01-31] MEDS: GABAPENTIN 100 MG CAP PO SCH ×2 (09:14→19:52)
[2023-01-31] MEDS: ONDANSETRON 4 MG/2 ML VIAL IVP PRN (10:14)
[2023-01-31] MEDS: methylPREDNISolone SOD SUCCI 40 MG/ML 1 ML VIAL IV SCH ×2 (10:32→15:56)
--- NOTE | 2023-01-31 11:13 | P.PN ---
Subjective Patient is seen in follow-up for acute kidney injury. Renal function improves. Receiving TPN as well as normal saline. Potassium is low and is being replaced. Nonoliguric. Extubated 01/30/2023. On Cleviprex. Vital signs are stable. General: Resting in bed. HEENT: NG tube noted. LUNGS: No audible rhonchi or wheezes. HEART: Rate and Rhythm are regular. ABDOMEN: Ileostomy noted. EXTREMITITES: No edema. Right BKA. Objective - Vital Signs Vital signs: Vital Signs Temp 98.2 F 01/31/23 04:00 Pulse 100 01/31/23 08:14 Resp 28 H 01/31/23 07:00 BP 141/60 01/31/23 07:00 Pulse Ox 93 L 01/31/23 07:58 FiO2 40 01/30/23 12:00 Intake & Output 01/30/23 01/31/23 01/31/23 18:59 06:59 18:59 Intake Total 8869.903 7013.200 28.7 Output Total 2275 4280 Balance -870.650 -2640.800 28.7 Weight 81.2 kg Intake: IV 1210 1370 ACETAMINOPHEN IV (For NPO 100 ) 1,000 mg In Empty Bag 1 bag @ 400 mls/hr IVPB Q6H [facility] Rx#:[id number] Anidulafungin 100 mg In 100 100 Sodium Chloride 0.9% 100 ml @ 84 mls/hr IVPB DAILY @1500 [facility] Rx#:[id number] Dextrose 5% in Water 1, 150 000 ml @ 75 mls/hr IV . [id number] [facility] with Sodium Bicarb (1 Meq/ml) 150 ml Rx#:[id number] Mvi, Adult No.4 with Vit 60 390 K 10 ml Trace (Conc-1Ml/ Dose) 1 ml Sodium Acetate 34 meq Potassium Chloride 20 meq Calcium Gluconate 1 gm Magnesium Sulfate gm 0.5 gm In Amino Acid 4.25%-D10w 1, 000 ml @ 61 mls/hr IV .BY DURATION [facility] Rx#: [id number] Piperacillin-Tazobactam 3 200 100 .375 gm In Sodium Chloride 0.9% 100 ml @ 25 mls/hr IVPB Q8HR [facility] Rx# :[id number] Potassium Chloride 10 meq 300 100 In Water For Injection 1 100ml.bag @ 100 mls/hr IVPB Q1HR [facility] Rx#: [id number] Sodium Chloride 0.9% 1, 400 580 000 ml @ 50 mls/hr IV . Q20H [facility] Rx#:[id number] Intake, IV Titration 194.350 69.200 28.7 Amount Clevidipine Butyrate 25 53.666 69.200 28.7 mg In Empty Bag 1 bag @ 1 MG/HR 2 mls/hr IV .Q24H [facility] Rx#:[id number] Norepinephrine 4 mg In 39.763 Sodium Chloride 0.9% 250 ml @ 0.03 MCG/KG/MIN 10. 024 mls/hr IV .Q24H [facility] Rx#:[id number] propofoL 1,000 mg In 100.921 Empty Bag 1 bag @ 15 MCG/ KG/MIN 7.893 mls/hr IV . [id number] [facility] Rx#:[id number] Oral 200 Output: Gastric Drainage 800 1400 Drainage 90 Left Lower Abdomen 90 Urine 1475 2790 Other: Voiding Method Indwelling Catheter Indwelling Catheter # Bowel Movements 1 ABP, PAP, CO, CI - Last Documented Arterial Blood Pressure 162/42 - Labs CBC & Chem 7: 01/31/23 04:45 01/31/23 04:45 Labs: Abnormal Lab Results - Last 24 Hours (Table) 01/30/23 01/30/23 01/30/23 Range/Units 12:16 12:18 12:35 WBC (3.8-10.6) k/uL RBC (3.80-5.40) m/uL Hgb (11.4-16.0) gm/dL Hct (34.0-46.0) % Plt Count (150-450) k/uL Neutrophils # (Manual) (1.3-7.7) k/uL ABG pO2 (83-108) mmHg Potassium (3.5-5.1) mmol/L Carbon Dioxide (22-30) mmol/L BUN (7-17) mg/dL Creatinine (0.52-1.04) mg/dL Glucose (74-99) mg/dL POC Glucose (mg/dL) 34 L 33 L 146 H (70-110) mg/dL Calcium (8.4-10.2) mg/dL Alkaline Phosphatase (38-126) U/L Total Protein (6.3-8.2) g/dL Albumin (3.5-5.0) g/dL 01/30/23 01/30/23 01/30/23 Range/Units 13:01 16:46 17:04 WBC (3.8-10.6) k/uL RBC (3.80-5.40) m/uL Hgb (11.4-16.0) gm/dL Hct (34.0-46.0) % Plt Count (150-450) k/uL Neutrophils # (Manual) (1.3-7.7) k/uL ABG pO2 81 L (83-108) mmHg Potassium (3.5-5.1) mmol/L Carbon Dioxide (22-30) mmol/L BUN (7-17) mg/dL Creatinine (0.52-1.04) mg/dL Glucose (74-99) mg/dL POC Glucose (mg/dL) 39 L 166 H (70-110) mg/dL Calcium (8.4-10.2) mg/dL Alkaline Phosphatase (38-126) U/L Total Protein (6.3-8.2) g/dL Albumin (3.5-5.0) g/dL 01/30/23 01/30/23 01/31/23 Range/Units 20:51 21:31 04:45 WBC (3.8-10.6) k/uL RBC (3.80-5.40) m/uL Hgb (11.4-16.0) gm/dL Hct (34.0-46.0) % Plt Count (150-450) k/uL Neutrophils # (Manual) (1.3-7.7) k/uL ABG pO2 (83-108) mmHg Potassium 2.7 L* (3.5-5.1) mmol/L Carbon Dioxide 21 L (22-30) mmol/L BUN 22 H (7-17) mg/dL Creatinine 1.06 H (0.52-1.04) mg/dL Glucose 111 H (74-99) mg/dL POC Glucose (mg/dL) 65 L 126 H (70-110) mg/dL Calcium 7.9 L (8.4-10.2) mg/dL Alkaline Phosphatase 177 H (38-126) U/L Total Protein 5.9 L (6.3-8.2) g/dL Albumin 2.7 L (3.5-5.0) g/dL 01/31/23 01/31/23 Range/Units 04:45 04:50 WBC 30.4 H (3.8-10.6) k/uL RBC 2.96 L (3.80-5.40) m/uL Hgb 8.8 L (11.4-16.0) gm/dL Hct 27.1 L (34.0-46.0) % Plt Count 512 H (150-450) k/uL Neutrophils # (Manual) 28.50 H (1.3-7.7) k/uL ABG pO2 (83-108) mmHg Potassium (3.5-5.1) mmol/L Carbon Dioxide (22-30) mmol/L BUN (7-17) mg/dL Creatinine (0.52-1.04) mg/dL Glucose (74-99) mg/dL POC Glucose (mg/dL) 115 H (70-110) mg/dL Calcium (8.4-10.2) mg/dL Alkaline Phosphatase (38-126) U/L Total Protein (6.3-8.2) g/dL Albumin (3.5-5.0) g/dL Microbiology - Last 24 Hours (Table) 01/28/23 15:10 Blood Culture - Preliminary Blood 01/27/23 14:11 Blood Culture - Preliminary Blood 01/27/23 14:00 Blood Culture - Preliminary Blood 01/28/23 22:08 Gram Stain - Final Sputum Sputum Culture - Final Enterobacter aerogenes 01/28/23 17:29 Gram Stain - Final Sputum Sputum Culture - Final Enterobacter aerogenes 01/29/23 09:24 Gram Stain - Preliminary [facility] Body Fluid Culture - Preliminary Assessment and Plan Plan: Assessment: 1. Acute kidney injury secondary to ATN secondary to septic shock and cardiac arrest. Renal function better. Creatinine 1.06 today. Nonoliguric. No hydronephrosis noted on CAT scan. 2. Metabolic acidosis secondary to acute kidney injury. Status post bicarb drip. Improved. 3. Ischemic colitis with necrosis of large intestine status post exploratory laparotomy with total abdominal colectomy and end ileostomy. 4. Status post PEA arrest 01/28/2023. 5. Septic shock secondary to ischemic bowel. Off vasopressors. 6. Hypokalemia from intercellular shifting from IV bicarb and poor intake. Plan: Maintain TPN and normal saline. Potassium being replaced. Continue to monitor renal function and urine output. Avoid nephrotoxins.
[2023-01-31 11:15] LABS: Glucose,Whole Blood 203 mg/dL (70-110)
--- NOTE | 2023-01-31 12:14 | P.PN ---
Subjective Progress Note Date: 01/31/23 Principal diagnosis: Abdominal sepsis and ileus 67-year-old female patient is being seen in follow-up on 01/22/2023. A complicated case of abdominal distention, stooling infection requiring surgical intervention along with multiple medical problems and comorbidities P she initi ally presented to us with abdominal pain and she has not had a bowel movement for more than a week. She had significant abdominal distention. She was taken to the operating room and the patient underwent laparotomy, lysis of adhesions, total colectomy, ileostomy and the patient is currently postop day #3. She has been intubated and kept on a mechanical ventilator since. For now, the patient is still on a mechanical ventilator. She is a propofol which is running at 35 mcg/kg/m and she is adequately sedated and symptoms mechanical ventilator. She is on assist-control mode of mechanical ventilation at the rate of 24 with a rate of 24, tidal volume of 400, FiO2 of 30% and a PEEP of 5. Chest x-ray shows cardiomegaly. Some limited infiltrates in the left lung base and the right lower lobe lateral segment. Orotracheal tube is in a good location. The patient also has a triple-lumen catheter in the left subclavian. NG tube is also in good location. For now, the output from the NG tube is minimal. Her IV fluids are running at a rate of 75 mL an hour and the fluid is in the form of a bicarb infusion. She is on no pressors at this point in time in the urine output is in order of 5200 mL an hour. In terms of her electrolytes, the patient's sodium level has been dropping and it's down to 129. BUN is at 40 with a creatinine of 3.47 and a potassium level is at 4.2. Her serum bicarb is improved. She was as low as 13 and she is currently up to 20. Nevertheless, she is developing an acute kidney injury. Her creatinine at time of admission was 1.8 from a normal baseline. She has developed that he worsening of renal function the creatinine is up to 3.47. CAT scan of the abdomen and the pelvis that was done on 01/19/2023 showed no evidence of any hydronephrosis he had she had pancolonic distention with cecum dilatation which was up to 9.4 cm in size. At the same time, her white cell count has dropped down to 17.9 from as high as 25. Hemoglobin is stable at 9.2 and a platelet count is at 159. In terms of cultures, sputum culture has been negative. Abdominal wound cultures were taken and that is also still pending for now and the patient is covered with IV Zosyn. She is afebrile. She is having episodes of low-grade fever. She is on IV Tylenol. She remains hemodynamically stable. The patient remains nothing by mouth for now. The patient has a YASMINE drain located in the left lower quadrant and the output is in order of 200 mL over the past 8 hours. The output is serosanguineous. Her lactic acid level dropped from 7.3 down to 1.8. Blood sugars under adequate control and the patient is taking NovoLog insulin sliding scale coverage. She takes Lantus 55 units twice a day at home. She is also on a combination of Seroquel and Topamax and Prozac at home. On 01/26/2023, the patient is postop day #7. She remains on oxygen at 2 L/m nasal cannula. She is still on TPN for nutritional support. At the same time the patient was given soft and chopped diet with one-to-one supervision. She is able to swallow. She is not meeting her requirements. NG tube was removed yesterday. Ileostomy is functional and there is positive output. She has no s pecific complaints. She is communicating at this point in time. She is hemodynamically stable. She is off the Cleviprex drip. She is on insulin signs good coverage and she is also on IV Zosyn.Blood work today shows a WD skeletal 11.3, hemoglobin 9.3 and a platelet count of 224. Sodium is at 132 with a potassium level of 3.2, BUN is 39 and the creatinine is 1.47. Sugar is 238. The patient is on Levemir insulin 30 units twice a day and she also taken a slight scale coverage. IV fluids and the form of normal saline at rate of 20 mL an hour. She is on Lovenox 30 mg subcu for DVT prophylaxis. The output from the YASMINE drain is serosanguineous and in the order of 70 mL overnight. On 01/27/2023, the patient is postoperative day #8. She is on room air oxygen for now. Doing well. TPN was discontinued and the patient is currently tolerating diet and her ileostomy is functional. No other new complaints otherwise for now. The YASMINE drain is still in place and output is serosanguineous. Hemodynamically stable. No new labs are available from today. Communicating although she is overall weak and somewhat lethargic. Remains on IV Zosyn. Remains on Lovenox for DVT prophylaxis. Remains on Levemir insulin 30 units twice a day and the NovoLog signs good coverage. 01/28/2023, the patient is postop day #9. She is awake and alert and communicating. She was taken off the TPN and currently she is tolerating oral intake. Her ileostomy is functional. YASMINE drains are in place and output is serosanguineous. She is overall weak and she is showing some progress on a daily basis. White cell count was 22 with a hemoglobin 10.2 and a platelet count of 366. BUN is 49 with a creatinine of 2.07 and sodium levels of 1:30. Potassium levels at 4.9. No other new complaints otherwise for now. She is hemodynamically stable. . Dilaudid for pain control. Levemir insulin 30 units twice a day plus a sliding scale coverage. Patient was reevaluated today on 01/29/2023, patient developed an episode of arrest yesterday, she had a 5 minute pulseless electrical activity, patient had to be intubated and mechanically ventilated. Patient had a cardiac arrest while undergoing a computed tomography scan. 3 ML's of brown fluid removed from the nasogastric tube patient was found to have ileus on the CT of the abdomen and pelvis. Received so far for fluids of IV fluids her down time was 3-5 minutes, her ventilator settings today are assist control rate of 24 pressure support of mechanical ventilation with PI of 22, inspiratory time is 0.9 FiO2 is 50%. And PEEP of 5. ABG showed a pO2 of 109 pCO2 of 30 pH of 7.38 hence FiO2 was cut down to 45%. Patient is receiving bicarb drip, she is supposed to have a PICC line placed today. Patient is status post colectomy for ischemic bowel and she was extubated at one point on 02/02. Yesterday she developed a sudden downhill course. She continues to have a functional colostomy, and she has a YASMINE drain in place. Patient remains on daptomycin and Zosyn. She is on propofol at 55 mcg/kg/m she is off norepinephrine today. And she is receiving mostly fluids. WBC count today is 20.8 hemoglobin is 8.4, electrolytes are normal BUN is 46 creatinine 2.14. Chest x-ray is suspicious for a right sideddisease/infiltrate/aspiration pneumonia although the possibility of interstitial edema is not entirely ruled out. But felt to be less likely. Endotracheal tube seems to be sitting up high in the trachea and it will be advanced to COPD Patient was reevaluated today on 01/30/2023, remains in the ICU, intubated and mechanically ventilated. Patient is on pressure control mode of mechanical ventilation with a rate of 24 PI of 22 inspiratory time of 0.9 FiO2 45% and PEEP of 5 ABG showed a pO2 of 106 pCO2 31 pH of 7.45 hence I recommended cutting down the FiO2 to 40%. Patient remains on norepinephrine at 0.08 propofol at 55 mcg/kg/m, bicarb at 75 mL per hour. Considering her bicarb is better today, I'm recommending we stop the bicarb drip. Patient seems to have functional ileostomy nonetheless she continues to have significant output via nasogastric tube. She had 700 mL out on the last shift. She is still quite sedated, and my plan today is to consider a weaning trial if possible off sedation or at least on a lower dose of propofol. Continues to have leukocytosis with WBC count 24.3, hemoglobin is 7.5. Basic metabolic profile is normal bicarb is 21 BUN is 37 creatinine 1.80, steadily improving over the last 2 days. Patient remains on antibiotics in the form of Zosyn, and axis, and daptomycin. This is mostly for ongoing abdominal sepsis. Patient seems to have adequate output in the ileostomy. Chest x-ray is showing improvement in her right lower lobe pneumonia. Sputum is positive for gram-negative bacilli final identification is pending Reevaluated today on 01/31/2023, patient remains in the ICU, she was extubated yesterday, tolerated the extubation well. She is now on 2 L nasal cannula, she is on clevidipine at 3 mg per hour for elevated blood pressure the patient cannot take much orally. Continues to have nasogastric tube in place, still having significant amount of suctioning from the nasogastric tube. She has ostomy that seems to be functional patient is on TPN at 50 mL per hour still on Zosyn and daptomycin she is wheezing, and her chest x-ray showed bilateral infiltrates right more so than left, I suppose the patient had aspiration pneumonia , on proper antibiotics. Renal profile is normal bicarb is 21 Objective - Vital Signs Vital signs: Vital Signs Temp 97.1 F L 01/31/23 11:30 Pulse 92 01/31/23 11:56 Resp 22 01/31/23 11:30 BP 143/62 01/31/23 11:30 Pulse Ox 91 L 01/31/23 11:30 FiO2 40 01/30/23 12:00 Intake & Output 01/30/23 01/31/23 01/31/23 18:59 06:59 18:59 Intake Total 3677.442 5171.200 948.7 Output Total 2275 4280 770 Balance -870.650 -2640.800 178.7 Weight 81.2 kg Intake: IV 1210 1370 600 ACETAMINOPHEN IV (For NPO 100 100 ) 1,000 mg In Empty Bag 1 bag @ 400 mls/hr IVPB Q6H [facility] Rx#:[id number] Anidulafungin 100 mg In 100 100 Sodium Chloride 0.9% 100 ml @ 84 mls/hr IVPB DAILY @1500 [facility] Rx#:[id number] Dextrose 5% in Water 1, 150 000 ml @ 75 mls/hr IV . [id number] [facility] with Sodium Bicarb (1 Meq/ml) 150 ml Rx#:[id number] Mvi, Adult No.4 with Vit 60 390 K 10 ml Trace (Conc-1Ml/ Dose) 1 ml Sodium Acetate 34 meq Potassium Chloride 20 meq Calcium Gluconate 1 gm Magnesium Sulfate gm 0.5 gm In Amino Acid 4.25%-D10w 1, 000 ml @ 61 mls/hr IV .BY DURATION [facility] Rx#: [id number] Piperacillin-Tazobactam 3 200 100 100 .375 gm In Sodium Chloride 0.9% 100 ml @ 25 mls/hr IVPB Q8HR [facility] Rx# :[id number] Potassium Chloride 10 meq 300 100 200 In Water For Injection 1 100ml.bag @ 100 mls/hr IVPB Q1HR [facility] Rx#: [id number] Sodium Chloride 0.9% 1, 400 580 200 000 ml @ 50 mls/hr IV . Q20H [facility] Rx#:[id number] Intake, IV Titration 194.350 69.200 28.7 Amount Clevidipine Butyrate 25 53.666 69.200 28.7 mg In Empty Bag 1 bag @ 1 MG/HR 2 mls/hr IV .Q24H [facility] Rx#:[id number] Norepinephrine 4 mg In 39.763 Sodium Chloride 0.9% 250 ml @ 0.03 MCG/KG/MIN 10. 024 mls/hr IV .Q24H [facility] Rx#:[id number] propofoL 1,000 mg In 100.921 Empty Bag 1 bag @ 15 MCG/ KG/MIN 7.893 mls/hr IV . [id number] [facility] Rx#:[id number] Oral 200 200 TPN/PPN 120 Mvi, Adult No.4 with Vit 120 K 10 ml Trace (Conc-1Ml/ Dose) 1 ml Sodium Acetate 34 meq Potassium Chloride 20 meq Calcium Gluconate 1 gm Magnesium Sulfate gm 0.5 gm In Amino Acid 4.25%-D10w 1, 000 ml @ 61 mls/hr IV .BY DURATION [facility] Rx#: [id number] Output: Gastric Drainage 800 1400 Drainage 90 20 Left Lower Abdomen 90 20 Urine 1475 2790 650 Stool 100 Other: Voiding Method Indwelling Catheter Indwelling Catheter # Bowel Movements 1 ABP, PAP, CO, CI - Last Documented Arterial Blood Pressure 162/42 - Exam Physical Exam: Revealed 67-year-old female, on 2 L nasal cannula, in no distress. Head: Atraumatic, normocephalic. HEENT:[Neck is supple.] [No neck masses.] [No thyromegaly.] [No JVD.] EOMI, nonicteric. Chest: Symmetrical chest expansion, rhonchi and wheezes noted bilaterally. Cardiac Exam: [Normal S1 and S2, no S3 gallop, no murmur.] Abdomen: [Soft, nontender, evidence of ileostomy noted. And YASMINE drains noted. Bowel sounds are hypoactive. No abdominal distention is appreciated. Ostomy seems to be functional. Extremities: [No clubbing, no edema, no cyanosis.] Right above-knee amputation noted Neurological Exam: Could not assess, patient is sedated, on propofol. Psychiatric: Could not assess, sedated on propofol. Skin: No rashes. - Labs CBC & Chem 7: 01/31/23 04:45 01/31/23 04:45 Labs: Abnormal Lab Results - Last 24 Hours (Table) 01/30/23 01/30/23 01/30/23 Range/Units 12:16 12:18 12:35 WBC (3.8-10.6) k/uL RBC (3.80-5.40) m/uL Hgb (11.4-16.0) gm/dL Hct (34.0-46.0) % Plt Count (150-450) k/uL Neutrophils # (Manual) (1.3-7.7) k/uL ABG pO2 (83-108) mmHg Potassium (3.5-5.1) mmol/L Carbon Dioxide (22-30) mmol/L BUN (7-17) mg/dL Creatinine (0.52-1.04) mg/dL Glucose (74-99) mg/dL POC Glucose (mg/dL) 34 L 33 L 146 H (70-110) mg/dL Calcium (8.4-10.2) mg/dL Alkaline Phosphatase (38-126) U/L Total Protein (6.3-8.2) g/dL Albumin (3.5-5.0) g/dL 01/30/23 01/30/23 01/30/23 Range/Units 13:01 16:46 17:04 WBC (3.8-10.6) k/uL RBC (3.80-5.40) m/uL Hgb (11.4-16.0) gm/dL Hct (34.0-46.0) % Plt Count (150-450) k/uL Neutrophils # (Manual) (1.3-7.7) k/uL ABG pO2 81 L (83-108) mmHg Potassium (3.5-5.1) mmol/L Carbon Dioxide (22-30) mmol/L BUN (7-17) mg/dL Creatinine (0.52-1.04) mg/dL Glucose (74-99) mg/dL POC Glucose (mg/dL) 39 L 166 H (70-110) mg/dL Calcium (8.4-10.2) mg/dL Alkaline Phosphatase (38-126) U/L Total Protein (6.3-8.2) g/dL Albumin (3.5-5.0) g/dL 01/30/23 01/30/23 01/31/23 Range/Units 20:51 21:31 04:45 WBC (3.8-10.6) k/uL RBC (3.80-5.40) m/uL Hgb (11.4-16.0) gm/dL Hct (34.0-46.0) % Plt Count (150-450) k/uL Neutrophils # (Manual) (1.3-7.7) k/uL ABG pO2 (83-108) mmHg Potassium 2.7 L* (3.5-5.1) mmol/L Carbon Dioxide 21 L (22-30) mmol/L BUN 22 H (7-17) mg/dL Creatinine 1.06 H (0.52-1.04) mg/dL Glucose 111 H (74-99) mg/dL POC Glucose (mg/dL) 65 L 126 H (70-110) mg/dL Calcium 7.9 L (8.4-10.2) mg/dL Alkaline Phosphatase 177 H (38-126) U/L Total Protein 5.9 L (6.3-8.2) g/dL Albumin 2.7 L (3.5-5.0) g/dL 01/31/23 01/31/23 01/31/23 Range/Units 04:45 04:50 11:13 WBC 30.4 H (3.8-10.6) k/uL RBC 2.96 L (3.80-5.40) m/uL Hgb 8.8 L (11.4-16.0) gm/dL Hct 27.1 L (34.0-46.0) % Plt Count 512 H (150-450) k/uL Neutrophils # (Manual) 28.50 H (1.3-7.7) k/uL ABG pO2 (83-108) mmHg Potassium (3.5-5.1) mmol/L Carbon Dioxide (22-30) mmol/L BUN (7-17) mg/dL Creatinine (0.52-1.04) mg/dL Glucose (74-99) mg/dL POC Glucose (mg/dL) 115 H 203 H (70-110) mg/dL Calcium (8.4-10.2) mg/dL Alkaline Phosphatase (38-126) U/L Total Protein (6.3-8.2) g/dL Albumin (3.5-5.0) g/dL Microbiology - Last 24 Hours (Table) 01/29/23 09:24 Gram Stain - Preliminary Diaz-Benítez Body Fluid Culture - Preliminary 01/28/23 15:10 Blood Culture - Preliminary Blood 01/27/23 14:11 Blood Culture - Preliminary Blood 01/27/23 14:00 Blood Culture - Preliminary Blood 01/28/23 22:08 Gram Stain - Final Sputum Sputum Culture - Final Enterobacter aerogenes 01/28/23 17:29 Gram Stain - Final Sputum Sputum Culture - Final Enterobacter aerogenes Assessment and Plan Assessment: Impression: Acute hypoxic respiratory failure secondary to cardiac arrest requiring intubation and mechanical ventilation Cardiac arrest requiring intubation and mechanical ventilation, patient had a PEA cardiac arrest, down time of 5 minutes. In-hospital cardiac arrest. This occurred on 01/28/2023 Status post exploratory laparotomy, lysis of adhesions, total colectomy, ileostomy, abdominal washout, placement of YASMINE drains, placement of wound VAC postoperative day #12 patient was extubated after this surgery on 01/23/2023 and has been off mechanical ventilation until 01/28 requiring reintubation because of PEA. Patient was extubated again on 01/30/2023. Remains extubated so far. Acute kidney injury improving this is mostly a picture of acute tubular necrosis. Improving. 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 After the nasogastric tube has been removed Continue to monitor in the ICU for today. Continue oxygen at 2 L/m Continue bronchodilators and I added Solu-Medrol 40 mg IV push every 8 hours Continue antibiotics/antifungal , Eraxis, daptomycin and Zosyn Continue GI and DVT prophylaxis Continue insulin as per scale Clinical status remains marginal at best. We'll continue to follow Time with Patient: Less than 30
[2023-01-31] MEDS: CEFEPIME 2 GM in SODIUM CHLORIDE 0.9% 100 ML IVPB SCH ×2 (13:11→19:50)
--- NOTE | 2023-01-31 13:22 | P.PN ---
Subjective Progress Note Date: 01/31/23 CHIEF COMPLAINT: Acute abdomen with ischemic bowel HISTORY OF PRESENT ILLNESS: Patient is status post exploratory laparotomy with total abdominal colectomy and end ileostomy, lysis of adhesions on 01/19/23. Patient remains in the ICU. Patient was extubated yesterday. She is on clevidipine for elevated blood pressure. Patient's ostomy is functioning. She did complain of nausea. She is on TPN for nutrition support. Currently on 2 L of oxygen. NG tube with 1000 mL output noted during the night the patient had been receiving ice chips. Chest x-ray similar multifocal airspace opacities. Afebrile. WBC 24.3 up to 30 Hgb 8.8 platelets 512 potassium 2.7 and replace creatinine 1.06 YASMINE drain with 110ml serosanguineous output PHYSICAL EXAM: VITAL SIGNS: Reviewed GENERAL: Well-developed in no acute distress. HEENT: No sclera icterus. Moist buccal mucosa. Head is atraumatic, normocephalic. NECK: Supple without lymphadenopathy. CHEST: Non-labored respirations and equal bilateral excursions. CARDIOVASCULAR: Palpable 2+ radial pulses. ABDOMEN: Soft. Nondistended. Optifoam dressing clean and dry. YASMINE drain serous output. Stool present in ostomy MUSCULOSKELETAL: No clubbing or cyanosis. NEUROLOGIC: Patient intubated and sedated PSYCH: Appropriate affect. Alert and oriented to person, place and time. SKIN: Well perfused. Good skin turgor. ASSESSMENT: 1. Acute abdomen with ischemic bowel 2. Hypertensive heart disease with congestive heart failure 3. Morbid obesity due to excess calories, BMI over 34.8 4. Acute renal failure due to dehydration 5. History of lower extremity amputee 6. Chronic obstructive pulmonary disease 7. Diabetes type 2, insulin-dependent with diabetic nephropathy 8. Gastroesophageal reflux disease 9. Hypotension due to hypovolemia 10. Lactic acidosis 11. Septic shock due to bowel 12. Status post total abdominal colectomy 13. Cardiac arrest 14. Severe ileus 15. Suspected aspiration pneumonia PLAN: -Check abdominal x-ray daily for further follow-up on patient's ileus -We'll make further decisions regarding pulling NG tube and advancing diet once abdominal x-ray reviewed -Continue TPN for nutrition support -Continue ICU management -Continue supportive care -Continue antibiotics -Repeat CBC follow-up on leukocytosis -GI prophylaxis Protonix and DVT prophylaxis Lovenox Physician Experience Specialist note has been reviewed by physician. Signing provider agrees with the documented findings, assessment, and plan of care. Objective - Vital Signs Vital signs: Vital Signs Temp 98.2 F 01/31/23 04:00 Pulse 100 01/31/23 08:14 Resp 28 H 01/31/23 07:00 BP 141/60 01/31/23 07:00 Pulse Ox 93 L 01/31/23 07:58 FiO2 40 01/30/23 12:00 Intake & Output 01/30/23 01/31/23 01/31/23 18:59 06:59 18:59 Intake Total 9668.580 7324.200 28.7 Output Total 2275 4280 Balance -870.650 -2640.800 28.7 Weight 81.2 kg Intake: IV 1210 1370 ACETAMINOPHEN IV (For NPO 100 ) 1,000 mg In Empty Bag 1 bag @ 400 mls/hr IVPB Q6H [facility] Rx#:[id number] Anidulafungin 100 mg In 100 100 Sodium Chloride 0.9% 100 ml @ 84 mls/hr IVPB DAILY @1500 [facility] Rx#:[id number] Dextrose 5% in Water 1, 150 000 ml @ 75 mls/hr IV . [id number] [facility] with Sodium Bicarb (1 Meq/ml) 150 ml Rx#:[id number] M[facility], Adult No.4 with Vit 60 390 K 10 ml Trace (Conc-1Ml/ Dose) 1 ml Sodium Acetate 34 meq Potassium Chloride 20 meq Calcium Gluconate 1 gm Magnesium Sulfate gm 0.5 gm In Amino Acid 4.25%-D10w 1, 000 ml @ 61 mls/hr IV .BY DURATION [facility] Rx#: [id number] Piperacillin-Tazobactam 3 200 100 .375 gm In Sodium Chloride 0.9% 100 ml @ 25 mls/hr IVPB Q8HR [facility] Rx# :[id number] Potassium Chloride 10 meq 300 100 In Water For Injection 1 100ml.bag @ 100 mls/hr IVPB Q1HR [facility] Rx#: [id number] Sodium Chloride 0.9% 1, 400 580 000 ml @ 50 mls/hr IV . Q20H [facility] Rx#:[id number] Intake, IV Titration 194.350 69.200 28.7 Amount Clevidipine Butyrate 25 53.666 69.200 28.7 mg In Empty Bag 1 bag @ 1 MG/HR 2 mls/hr IV .Q24H [facility] Rx#:[id number] Norepinephrine 4 mg In 39.763 Sodium Chloride 0.9% 250 ml @ 0.03 MCG/KG/MIN 10. 024 mls/hr IV .Q24H [facility] Rx#:[id number] propofoL 1,000 mg In 100.921 Empty Bag 1 bag @ 15 MCG/ KG/MIN 7.893 mls/hr IV . [id number] [facility] Rx#:[id number] Oral 200 Output: Gastric Drainage 800 1400 Drainage 90 Left Lower Abdomen 90 Urine 1475 2790 Other: Voiding Method Indwelling Catheter Indwelling Catheter # Bowel Movements 1 ABP, PAP, CO, CI - Last Documented Arterial Blood Pressure 162/42 - Labs CBC & Chem 7: 01/31/23 04:45 01/31/23 04:45 Labs: Abnormal Lab Results - Last 24 Hours (Table) 01/30/23 01/30/23 01/30/23 Range/Units 12:16 12:18 12:35 WBC (3.8-10.6) k/uL RBC (3.80-5.40) m/uL Hgb (11.4-16.0) gm/dL Hct (34.0-46.0) % Plt Count (150-450) k/uL Neutrophils # (Manual) (1.3-7.7) k/uL ABG pO2 (83-108) mmHg Potassium (3.5-5.1) mmol/L Carbon Dioxide (22-30) mmol/L BUN (7-17) mg/dL Creatinine (0.52-1.04) mg/dL Glucose (74-99) mg/dL POC Glucose (mg/dL) 34 L 33 L 146 H (70-110) mg/dL Calcium (8.4-10.2) mg/dL Alkaline Phosphatase (38-126) U/L Total Protein (6.3-8.2) g/dL Albumin (3.5-5.0) g/dL 01/30/23 01/30/23 01/30/23 Range/Units 13:01 16:46 17:04 WBC (3.8-10.6) k/uL RBC (3.80-5.40) m/uL Hgb (11.4-16.0) gm/dL Hct (34.0-46.0) % Plt Count (150-450) k/uL Neutrophils # (Manual) (1.3-7.7) k/uL ABG pO2 81 L (83-108) mmHg Potassium (3.5-5.1) mmol/L Carbon Dioxide (22-30) mmol/L BUN (7-17) mg/dL Creatinine (0.52-1.04) mg/dL Glucose (74-99) mg/dL POC Glucose (mg/dL) 39 L 166 H (70-110) mg/dL Calcium (8.4-10.2) mg/dL Alkaline Phosphatase (38-126) U/L Total Protein (6.3-8.2) g/dL Albumin (3.5-5.0) g/dL 01/30/23 01/30/23 01/31/23 Range/Units 20:51 21:31 04:45 WBC (3.8-10.6) k/uL RBC (3.80-5.40) m/uL Hgb (11.4-16.0) gm/dL Hct (34.0-46.0) % Plt Count (150-450) k/uL Neutrophils # (Manual) (1.3-7.7) k/uL ABG pO2 (83-108) mmHg Potassium 2.7 L* (3.5-5.1) mmol/L Carbon Dioxide 21 L (22-30) mmol/L BUN 22 H (7-17) mg/dL Creatinine 1.06 H (0.52-1.04) mg/dL Glucose 111 H (74-99) mg/dL POC Glucose (mg/dL) 65 L 126 H (70-110) mg/dL Calcium 7.9 L (8.4-10.2) mg/dL Alkaline Phosphatase 177 H (38-126) U/L Total Protein 5.9 L (6.3-8.2) g/dL Albumin 2.7 L (3.5-5.0) g/dL 01/31/23 01/31/23 Range/Units 04:45 04:50 WBC 30.4 H (3.8-10.6) k/uL RBC 2.96 L (3.80-5.40) m/uL Hgb 8.8 L (11.4-16.0) gm/dL Hct 27.1 L (34.0-46.0) % Plt Count 512 H (150-450) k/uL Neutrophils # (Manual) 28.50 H (1.3-7.7) k/uL ABG pO2 (83-108) mmHg Potassium (3.5-5.1) mmol/L Carbon Dioxide (22-30) mmol/L BUN (7-17) mg/dL Creatinine (0.52-1.04) mg/dL Glucose (74-99) mg/dL POC Glucose (mg/dL) 115 H (70-110) mg/dL Calcium (8.4-10.2) mg/dL Alkaline Phosphatase (38-126) U/L Total Protein (6.3-8.2) g/dL Albumin (3.5-5.0) g/dL Microbiology - Last 24 Hours (Table) 01/28/23 15:10 Blood Culture - Preliminary Blood 01/27/23 14:11 Blood Culture - Preliminary Blood 01/27/23 14:00 Blood Culture - Preliminary Blood 01/28/23 22:08 Gram Stain - Final Sputum Sputum Culture - Final Enterobacter aerogenes 01/28/23 17:29 Gram Stain - Final Sputum Sputum Culture - Final Enterobacter aerogenes 01/29/23 09:24 Gram Stain - Preliminary Diaz-Benítez Body Fluid Culture - Preliminary
--- NOTE | 2023-01-31 13:28 | P.PN ---
Subjective Progress Note Date: 01/30/23 Principal diagnosis: Ischemic colitis patient is a 67-year-old female with a past medical history significant for type 2 diabetes mellitus COPD morbid obesity did have a history of right below the knee amputation and left big toe amputation history of smoking presenting to the hospital with a 2-week history of abdominal pain , patient has been diagnosed with ischemic colitis in this patient with status post subtotal colectomy and ileostomy. Patient has been extubated as of 01/23/2023, patient did have a cardiac arrest 01/28/2023 evening requiring resuscitation and intubation On today's evaluation that is 01/30/2023, the patient did have a low-grade fever 100.3 this morning the, patient is afebrile since then, patient is currently intubated on the vent and FiO2 is down to 40%, no significant purulent secretions through the ET, no other changes has been reported by the nursing staff Objective - Vital Signs Vital signs: Vital Signs Temp 100.3 F H 01/30/23 08:15 Pulse 100 01/30/23 10:00 Resp 23 01/30/23 10:00 BP 128/41 01/29/23 21:45 Pulse Ox 95 01/30/23 10:00 FiO2 40 01/30/23 09:21 Intake & Output 01/29/23 01/30/23 01/30/23 18:59 06:59 18:59 Intake Total 0662.004 7566.355 359.254 Output Total 2530 1625 850 Balance -610.683 -141.645 -490.746 Weight 84 kg 84 kg Intake: IV 1490 1135 250 ACETAMINOPHEN IV (For NPO 100 100 ) 1,000 mg In Empty Bag 1 bag @ 400 mls/hr IVPB Q6H [facility] Rx#:[id number] Anidulafungin 100 mg In 100 Sodium Chloride 0.9% 100 ml @ 84 mls/hr IVPB DAILY @1500 [facility] Rx#:[id number] Dextrose 5% in Water 1, 75 000 ml @ 75 mls/hr IV . [id number] [facility] with Sodium Bicarb (1 Meq/ml) 100 ml Rx#:[id number] Dextrose 5% in Water 1, 675 000 ml @ 75 mls/hr IV . [id number] [facility] with Sodium Bicarb (1 Meq/ml) 150 ml Rx#:[id number] Dextrose 5% in Water 1, 750 150 000 ml @ 75 mls/hr IV . [id number] [facility] with Sodium Bicarb (1 Meq/ml) 150 ml Rx#:[id number] Magnesium Sulfate-D5w Pmx 100 1 gm In Dextrose/Water 1 100ml.bag @ 100 mls/hr IVPB Q1H [facility] Rx#: [id number] Piperacillin-Tazobactam 3 200 100 100 .375 gm In Sodium Chloride 0.9% 100 ml @ 25 mls/hr IVPB Q8HR [facility] Rx# :[id number] Sodium Chloride 0.9% 1, 315 110 000 ml @ 75 mls/hr IV . [id number] [facility] Rx#:[id number] Intake, IV Titration 429.317 348.355 109.254 Amount Norepinephrine 4 mg In 74.790 148.355 26.508 Sodium Chloride 0.9% 250 ml @ 0.03 MCG/KG/MIN 10. 024 mls/hr IV .Q24H [facility] Rx#:[id number] propofoL 1,000 mg In 354.527 200 82.746 Empty Bag 1 bag @ 15 MCG/ KG/MIN 7.893 mls/hr IV . [id number] [facility] Rx#:[id number] Output: Gastric Drainage 1475 650 600 Drainage 145 55 Left Lower Abdomen 145 55 Urine 910 870 250 Stool 50 Other: Voiding Method Indwelling Catheter Indwelling Catheter Indwelling Catheter ABP, PAP, CO, CI - Last Documented Arterial Blood Pressure 179/44 - Exam GENERAL DESCRIPTION: An elderly female intubated on the vent RESPIRATORY SYSTEM: Unlabored breathing , coarse breath sounds bilaterally HEART: S1 S2 regular rate and rhythm , ABDOMEN: Soft , mild distention EXTREMITIES: Right BK stump incision is healed - Labs CBC & Chem 7: 01/31/23 04:45 01/31/23 04:45 Labs: Abnormal Lab Results - Last 24 Hours (Table) 01/29/23 01/29/23 01/29/23 Range/Units 11:25 17:19 23:41 WBC (3.8-10.6) k/uL RBC (3.80-5.40) m/uL Hgb (11.4-16.0) gm/dL Hct (34.0-46.0) % ABG pCO2 (35-45) mmHg ABG O2 Saturation (94-97) % Potassium (3.5-5.1) mmol/L Carbon Dioxide (22-30) mmol/L BUN (7-17) mg/dL Creatinine (0.52-1.04) mg/dL POC Glucose (mg/dL) 161 H 191 H 166 H (70-110) mg/dL Calcium (8.4-10.2) mg/dL Alkaline Phosphatase (38-126) U/L Total Protein (6.3-8.2) g/dL Albumin (3.5-5.0) g/dL 01/30/23 01/30/23 01/30/23 Range/Units 05:59 06:35 06:35 WBC 24.3 H (3.8-10.6) k/uL RBC 2.46 L (3.80-5.40) m/uL Hgb 7.5 L (11.4-16.0) gm/dL Hct 22.6 L (34.0-46.0) % ABG pCO2 31 L (35-45) mmHg ABG O2 Saturation 98.8 H (94-97) % Potassium 3.1 L (3.5-5.1) mmol/L Carbon Dioxide 21 L (22-30) mmol/L BUN 37 H (7-17) mg/dL Creatinine 1.80 H (0.52-1.04) mg/dL POC Glucose (mg/dL) (70-110) mg/dL Calcium 7.4 L (8.4-10.2) mg/dL Alkaline Phosphatase 132 H (38-126) U/L Total Protein 5.1 L (6.3-8.2) g/dL Albumin 2.3 L (3.5-5.0) g/dL Microbiology - Last 24 Hours (Table) 01/27/23 14:11 Blood Culture - Preliminary Blood 01/27/23 14:00 Blood Culture - Preliminary Blood 01/28/23 22:08 Gram Stain - Preliminary Sputum Sputum Culture - Preliminary Gram Neg Bacilli 01/28/23 15:10 Blood Culture - Preliminary Blood 01/28/23 17:29 Gram Stain - Preliminary Sputum Sputum Culture - Preliminary Gram Neg Bacilli 01/29/23 09:24 Gram Stain - Preliminary Diaz-Benítez Body Fluid Culture - Preliminary Assessment and Plan (1) Ischemic colitis Current Visit: Yes Status: Acute Code(s): K55.9 - VASCULAR DISORDER OF INTESTINE, UNSPECIFIED SNOMED Code(s): 17261992 (2) Sepsis Current Visit: No Status: Acute Code(s): A41.9 - SEPSIS, UNSPECIFIED ORGANISM SNOMED Code(s): 70139008 Plan: 1patient presented to hospital abdominal pain has been diagnosed with ischemic colitis in this patient infusion of septic shock with low-grade fever tachycardia elevated white count elevated lactic acid source being ischemic large bowel status post subtotal colectomy and end ileostomy we will need to cover for the enteric gram-negative both aerobes and anaerobes abdominal culture, which are so far pending 2-patient did have a new fever, and significant worsening of her clinical condition did have a cardiac arrest, the patient is currently be treated with Z osyn daptomycin and eraxis which will be continued while waiting for cultures to finalize and monitor clinical course closely Time with Patient: Less than 30
--- NOTE | 2023-01-31 13:30 | P.PN ---
Subjective Progress Note Date: 01/31/23 Principal diagnosis: Ischemic colitis patient is a 67-year-old female with a past medical history significant for type 2 diabetes mellitus COPD morbid obesity did have a history of right below the knee amputation and left big toe amputation history of smoking presenting to the hospital with a 2-week history of abdominal pain , patient has been diagnosed with ischemic colitis in this patient with status post subtotal colectomy and ileostomy. Patient has been extubated as of 01/23/2023, patient did have a cardiac arrest 01/28/2023 evening requiring resuscitation and intubation On today's evaluation that is 01/31/2023, the patient is afebrile today, patient has been extubated and is currently breathing comfortably on 2 L nasal cannula oxygen patient denies having any chest pain shortness of breath occasional cough still have the NG no further vomiting has been reported Objective - Vital Signs Vital signs: Vital Signs Temp 97.1 F L 01/31/23 11:30 Pulse 92 01/31/23 11:56 Resp 22 01/31/23 11:30 BP 143/62 01/31/23 11:30 Pulse Ox 91 L 01/31/23 11:30 FiO2 40 01/30/23 12:00 Intake & Output 01/30/23 01/31/23 01/31/23 18:59 06:59 18:59 Intake Total 8498.742 5369.200 953.8 Output Total 2275 4280 770 Balance -870.650 -2640.800 183.8 Weight 81.2 kg Intake: IV 1210 1370 600 ACETAMINOPHEN IV (For NPO 100 100 ) 1,000 mg In Empty Bag 1 bag @ 400 mls/hr IVPB Q6H [facility] Rx#:[id number] Anidulafungin 100 mg In 100 100 Sodium Chloride 0.9% 100 ml @ 84 mls/hr IVPB DAILY @1500 [facility] Rx#:[id number] Dextrose 5% in Water 1, 150 000 ml @ 75 mls/hr IV . [id number] [facility] with Sodium Bicarb (1 Meq/ml) 150 ml Rx#:[id number] Mvi, Adult No.4 with Vit 60 390 K 10 ml Trace (Conc-1Ml/ Dose) 1 ml Sodium Acetate 34 meq Potassium Chloride 20 meq Calcium Gluconate 1 gm Magnesium Sulfate gm 0.5 gm In Amino Acid 4.25%-D10w 1, 000 ml @ 61 mls/hr IV .BY DURATION [facility] Rx#: [id number] Piperacillin-Tazobactam 3 200 100 100 .375 gm In Sodium Chloride 0.9% 100 ml @ 25 mls/hr IVPB Q8HR [facility] Rx# :[id number] Potassium Chloride 10 meq 300 100 200 In Water For Injection 1 100ml.bag @ 100 mls/hr IVPB Q1HR [facility] Rx#: [id number] Sodium Chloride 0.9% 1, 400 580 200 000 ml @ 50 mls/hr IV . Q20H [facility] Rx#:[id number] Intake, IV Titration 194.350 69.200 33.8 Amount Clevidipine Butyrate 25 53.666 69.200 33.8 mg In Empty Bag 1 bag @ 1 MG/HR 2 mls/hr IV .Q24H [facility] Rx#:[id number] Norepinephrine 4 mg In 39.763 Sodium Chloride 0.9% 250 ml @ 0.03 MCG/KG/MIN 10. 024 mls/hr IV .Q24H [facility] Rx#:[id number] propofoL 1,000 mg In 100.921 Empty Bag 1 bag @ 15 MCG/ KG/MIN 7.893 mls/hr IV . [id number] [facility] Rx#:[id number] Oral 200 200 TPN/PPN 120 Mvi, Adult No.4 with Vit 120 K 10 ml Trace (Conc-1Ml/ Dose) 1 ml Sodium Acetate 34 meq Potassium Chloride 20 meq Calcium Gluconate 1 gm Magnesium Sulfate gm 0.5 gm In Amino Acid 4.25%-D10w 1, 000 ml @ 61 mls/hr IV .BY DURATION [facility] Rx#: [id number] Output: Gastric Drainage 800 1400 Drainage 90 20 Left Lower Abdomen 90 20 Urine 1475 2790 650 Stool 100 Other: Voiding Method Indwelling Catheter Indwelling Catheter # Bowel Movements 1 ABP, PAP, CO, CI - Last Documented Arterial Blood Pressure 162/42 - Exam GENERAL DESCRIPTION: An elderly female lying in bed in no distress RESPIRATORY SYSTEM: Unlabored breathing , decreased intensity of breath sounds bilaterally HEART: S1 S2 regular rate and rhythm , ABDOMEN: Soft , mild distention EXTREMITIES: Right BK stump incision is healed - Labs CBC & Chem 7: 01/31/23 04:45 01/31/23 04:45 Labs: Abnormal Lab Results - Last 24 Hours (Table) 01/30/23 01/30/23 01/30/23 Range/Units 12:35 13:01 16:46 WBC (3.8-10.6) k/uL RBC (3.80-5.40) m/uL Hgb (11.4-16.0) gm/dL Hct (34.0-46.0) % Plt Count (150-450) k/uL Neutrophils # (Manual) (1.3-7.7) k/uL ABG pO2 81 L (83-108) mmHg Potassium (3.5-5.1) mmol/L Carbon Dioxide (22-30) mmol/L BUN (7-17) mg/dL Creatinine (0.52-1.04) mg/dL Glucose (74-99) mg/dL POC Glucose (mg/dL) 146 H 39 L (70-110) mg/dL Calcium (8.4-10.2) mg/dL Alkaline Phosphatase (38-126) U/L Total Protein (6.3-8.2) g/dL Albumin (3.5-5.0) g/dL 01/30/23 01/30/23 01/30/23 Range/Units 17:04 20:51 21:31 WBC (3.8-10.6) k/uL RBC (3.80-5.40) m/uL Hgb (11.4-16.0) gm/dL Hct (34.0-46.0) % Plt Count (150-450) k/uL Neutrophils # (Manual) (1.3-7.7) k/uL ABG pO2 (83-108) mmHg Potassium (3.5-5.1) mmol/L Carbon Dioxide (22-30) mmol/L BUN (7-17) mg/dL Creatinine (0.52-1.04) mg/dL Glucose (74-99) mg/dL POC Glucose (mg/dL) 166 H 65 L 126 H (70-110) mg/dL Calcium (8.4-10.2) mg/dL Alkaline Phosphatase (38-126) U/L Total Protein (6.3-8.2) g/dL Albumin (3.5-5.0) g/dL 01/31/23 01/31/23 01/31/23 Range/Units 04:45 04:45 04:50 WBC 30.4 H (3.8-10.6) k/uL RBC 2.96 L (3.80-5.40) m/uL Hgb 8.8 L (11.4-16.0) gm/dL Hct 27.1 L (34.0-46.0) % Plt Count 512 H (150-450) k/uL Neutrophils # (Manual) 28.50 H (1.3-7.7) k/uL ABG pO2 (83-108) mmHg Potassium 2.7 L* (3.5-5.1) mmol/L Carbon Dioxide 21 L (22-30) mmol/L BUN 22 H (7-17) mg/dL Creatinine 1.06 H (0.52-1.04) mg/dL Glucose 111 H (74-99) mg/dL POC Glucose (mg/dL) 115 H (70-110) mg/dL Calcium 7.9 L (8.4-10.2) mg/dL Alkaline Phosphatase 177 H (38-126) U/L Total Protein 5.9 L (6.3-8.2) g/dL Albumin 2.7 L (3.5-5.0) g/dL 01/31/23 Range/Units 11:13 WBC (3.8-10.6) k/uL RBC (3.80-5.40) m/uL Hgb (11.4-16.0) gm/dL Hct (34.0-46.0) % Plt Count (150-450) k/uL Neutrophils # (Manual) (1.3-7.7) k/uL ABG pO2 (83-108) mmHg Potassium (3.5-5.1) mmol/L Carbon Dioxide (22-30) mmol/L BUN (7-17) mg/dL Creatinine (0.52-1.04) mg/dL Glucose (74-99) mg/dL POC Glucose (mg/dL) 203 H (70-110) mg/dL Calcium (8.4-10.2) mg/dL Alkaline Phosphatase (38-126) U/L Total Protein (6.3-8.2) g/dL Albumin (3.5-5.0) g/dL Microbiology - Last 24 Hours (Table) 01/29/23 09:24 Gram Stain - Preliminary Diaz-Benítez Body Fluid Culture - Preliminary 01/28/23 15:10 Blood Culture - Preliminary Blood 01/27/23 14:11 Blood Culture - Preliminary Blood 01/27/23 14:00 Blood Culture - Preliminary Blood 01/28/23 22:08 Gram Stain - Final Sputum Sputum Culture - Final Enterobacter aerogenes 01/28/23 17:29 Gram Stain - Final Sputum Sputum Culture - Final Enterobacter aerogenes Assessment and Plan (1) Ischemic colitis Current Visit: Yes Status: Acute Code(s): K55.9 - VASCULAR DISORDER OF INTESTINE, UNSPECIFIED SNOMED Code(s): 50072209 (2) Sepsis Current Visit: No Status: Acute Code(s): A41.9 - SEPSIS, UNSPECIFIED ORGANISM SNOMED Code(s): 58809270 Plan: 1patient presented to hospital abdominal pain has been diagnosed with ischemic colitis in this patient infusion of septic shock with low-grade fever tachycardia elevated white count elevated lactic acid source being ischemic large bowel status post subtotal colectomy and end ileostomy , patient subsequently did have worsening of her respiratory status and cardiac arrest requiring reintubation and the patient was subsequently extubated 2-patient did have a new fever, and significant worsening of her clinical condition and concern for aspiration pneumonia, sputum is growing Enterobacter t hat is intermediate sensitivity to Zosyn antibiotic will be switched over to cefepime and Flagyl discontinue daptomycin and Zosyn and monitor clinical course closely Plan of care was discussed with the surgeon at the bedside and also with the family Time with Patient: Less than 30
--- NOTE | 2023-01-31 14:22 | XR ---
EXAMINATION TYPE: XR abdomen 2V DATE OF EXAM: 01/31/2023 COMPARISON: 01/31/2023 HISTORY: Follow-up ileus TECHNIQUE: One view abdominal series FINDINGS: The osseous structures are intact. The bowel gas pattern is nonspecific. NG tube seen in a dilated s tomach. There is a PICC line noted is coarsened interstitial lung markings. Surgical tray noted. D egenerative and postsurgical changes in the vertebral column. Dilated small bowel loops are again not ed. IMPRESSION: 1. Persistent dilated stomach and small bowel loops within the basis of a severe ileus. Obstructive p attern not excluded. 2. Bilateral diffuse pulmonary infiltrates.
[2023-01-31] MEDS: ANIDULAFUNGIN 100 MG in SODIUM CHLORIDE 0.9% 100 ML IVPB SCH (14:55)
[2023-01-31] MEDS: MULTIVITAMINS, THERA 1 EACH TAB PO SCH (15:07)
[2023-01-31] MEDS: FLUoxetine HCL 20 MG CAP PO SCH (15:07)
[2023-01-31] MEDS: CHOLECALCIFEROL 125 MCG (5000 IU) TABLET PO SCH (15:07)
[2023-01-31] MEDS: VITAMIN E (DL,TOCOPHERYL ACET) 400 UNIT (180 MG) CAP PO SCH (15:07)
[2023-01-31] MEDS ORDERED: metFORMIN 500 MG TAB PO SCH (17:30)
[2023-01-31] MEDS: metroNIDAZOLE-NS PMX 500 MG in SALINE 1 100ML.BAG IVPB SCH (17:34)
[2023-01-31 18:02] LABS: Glucose,Whole Blood 341 mg/dL (70-110)
[2023-01-31 18:56] LABS: Magnesium 1.8 mg/dL (1.6-2.3); Potassium 3.8 mmol/L (3.5-5.1)
[2023-01-31 21:03] LABS: Glucose,Whole Blood 335 mg/dL (70-110)
[2023-02-01] MEDS: methylPREDNISolone SOD SUCCI 40 MG/ML 1 ML VIAL IV SCH ×3 (00:12→20:52)
[2023-02-01] MEDS: metroNIDAZOLE-NS PMX 500 MG in SALINE 1 100ML.BAG IVPB SCH ×4 (00:12→23:59)
[2023-02-01 00:23] LABS: Glucose,Whole Blood 353 mg/dL (70-110)
[2023-02-01] MEDS: INSULIN ASPART (NovoLOG) 100 UNIT/ML VIAL SQ SCH ×4 (00:26→18:25)
[2023-02-01] MEDS: HYDROmorphone 1 MG/ML 1 ML SYRINGE IVP PRN ×3 (01:13→12:58)
[2023-02-01] MEDS: CLEVIDIPINE BUTYRATE 25 MG in EMPTY BAG 1 BAG IV SCH ×6 (01:51→21:37)
[2023-02-01] MEDS: LORazepam 2 MG/ML INJ IV PRN ×3 (03:18→21:37)
[2023-02-01] MEDS: ACETAMINOPHEN IV (For NPO) 1,000 MG in EMPTY BAG 1 BAG IVPB SCH ×4 (03:46→20:51)
[2023-02-01 05:42] LABS: Glucose,Whole Blood 325 mg/dL (70-110)
[2023-02-01] MEDS: SODIUM CHLORIDE 0.9% 1,000 ML IV SCH (05:55)
[2023-02-01 06:36] LABS: ALT 18 U/L (4-34); AST 22 U/L (14-36); African American GFR (CKD) >90 (>60 ml/min/1.73 sqM); Albumin 2.9 g/dL (3.5-5.0); Alkaline Phosphatase 218 U/L (38-126); Anion Gap 14 mmol/L; Blood Urea Nitrogen 25 mg/dL (7-17); Calcium 8.4 mg/dL (8.4-10.2); Carbon Dioxide 17 mmol/L (22-30); Chloride 107 mmol/L (98-107); Glucose 331 mg/dL (74-99); Magnesium 1.9 mg/dL (1.6-2.3); Non-African American GFR(CKD) 78 (>60 ml/min/1.73 sqM); Phosphorus 2.3 mg/dL (2.5-4.5); Potassium 3.8 mmol/L (3.5-5.1); Sodium 138 mmol/L (137-145); Total Bilirubin 0.6 mg/dL (0.2-1.3); Total Protein 6.5 g/dL (6.3-8.2)
[2023-02-01] MEDS: INSULIN DETEMIR (LEVEMIR) 100 UNIT/ML SYR SQ SCH ×2 (06:41→20:53)
[2023-02-01] MEDS: POTASSIUM CHLORIDE 10 MEQ in WATER FOR INJECTION 1 100ML.BAG IVPB SCH ×4 (07:01→20:52)
[2023-02-01 07:30] LABS: HCT 31.9 % (34.0-46.0); HGB 10.2 gm/dL (11.4-16.0); Hypochromasia Slight; MCH 29.7 pg (25.0-35.0); Mean Platelet Volume 8.6; Platelet Count 641 k/uL (150-450); RBC 3.43 m/uL (3.80-5.40); RDW 14.7 % (11.5-15.5)
--- NOTE | 2023-02-01 08:27 | P.PN ---
Subjective Progress Note Date: 02/01/23 Principal diagnosis: Abdominal pain This is a 67-year-old female who presented to the emergency department with complaints of abdominal pain and had not had a bowel movement for multiple days. Patient was found to have an ischemic bowel. She did have a total abdominal colectomy with ileostomy by Dr. Larsen. She did require mechanical ventilation. She does have a significant history of COPD and diabetes, and is a tobacco user. 01/29/23 Yesterday patient had a cardiac arrest while undergoing a computed tomography scan. 3 L of brown fluid removed from NG tube. Ileus was found on the computed tomography scan. Patient is reintubated and remains in the ICU. 01/30/23 Patient remains intubated. She still having significant dark output from NG tube. Plan today is for a PICC line for TPN. 02/01/23 She was extubated on Sunday night. She is currently on 2 L nasal cannula. She is seen laying in bed this morning awake and alert, but is not able to identify the date today. Still having some dark output from NG tube. Objective - Vital Signs Vital signs: Vital Signs Temp 98.2 F 02/01/23 05:30 Pulse 107 H 02/01/23 05:30 Resp 22 02/01/23 07:00 BP 161/73 02/01/23 07:00 Pulse Ox 92 L 02/01/23 07:00 FiO2 40 01/30/23 12:00 Intake & Output 01/31/23 02/01/23 02/01/23 18:59 06:59 18:59 Intake Total 2137.367 2249.133 1131.1 Output Total 2975 3675 300 Balance -837.633 -1425.867 831.1 Weight 81.2 kg 76.5 kg Intake: IV 1450 900 50 ACETAMINOPHEN IV (For NPO 200 200 ) 1,000 mg In Empty Bag 1 bag @ 400 mls/hr IVPB Q6H [facility] Rx#:[id number] Anidulafungin 100 mg In 100 Sodium Chloride 0.9% 100 ml @ 84 mls/hr IVPB DAILY @1500 [facility] Rx#:[id number] Cefepime 2 gm In Sodium 100 100 Chloride 0.9% 100 ml @ 25 mls/hr IVPB Q12HR [facility] Rx #:[id number] Piperacillin-Tazobactam 3 100 .375 gm In Sodium Chloride 0.9% 100 ml @ 25 mls/hr IVPB Q8HR [facility] Rx# :[id number] Potassium Chloride 10 meq 400 In Water For Injection 1 100ml.bag @ 100 mls/hr IVPB Q1HR [facility] Rx#: [id number] Sodium Chloride 0.9% 1, 550 600 50 000 ml @ 50 mls/hr IV . Q20H [facility] Rx#:[id number] Intake, IV Titration 67.367 270.940 0483.1 Amount Clevidipine Butyrate 25 67.367 109.133 mg In Empty Bag 1 bag @ 1 MG/HR 2 mls/hr IV .Q24H [facility] Rx#:[id number] Magnesium Sulfate-D5w Pmx 100 1 gm In Dextrose/Water 1 100ml.bag @ 100 mls/hr IVPB ONCE ONE Rx#: [id number] Potassium Chloride 10 meq 200 In Water For Injection 1 100ml.bag @ 100 mls/hr IVPB Q1H [facility] Rx#: [id number] Potassium Chloride 10 meq 100 In Water For Injection 1 100ml.bag @ 100 mls/hr IVPB Q1H [facility] Rx#: [id number] Sodium Acetate 34 meq 921.1 Potassium Chloride 40 meq Calcium Gluconate 1 gm Magnesium Sulfate gm 0.5 gm In Amino Acid 4.25%- D10w 1,000 ml @ 61 mls/hr IV .BY DURATION [facility] Rx#: [id number] metroNIDAZOLE-NS PMX 500 100 mg In Saline 1 100ml.bag @ 100 mls/hr IVPB Q8HR [facility] Rx#:[id number] Oral 200 120 TPN/PPN 420 720 60 Mvi, Adult No.4 with Vit 420 720 60 K 10 ml Trace (Conc-1Ml/ Dose) 1 ml Sodium Acetate 34 meq Potassium Chloride 20 meq Calcium Gluconate 1 gm Magnesium Sulfate gm 0.5 gm In Amino Acid 4.25%-D10w 1, 000 ml @ 61 mls/hr IV .BY DURATION [facility] Rx#: [id number] Output: Gastric Drainage 300 150 Drainage 50 Left Lower Abdomen 50 Urine 2525 3675 150 Stool 100 Other: Voiding Method Indwelling Catheter Indwelling Catheter ABP, PAP, CO, CI - Last Documented Arterial Blood Pressure 162/42 - Constitutional General appearance: Present: cooperative, no acute distress - EENT Eyes: Present: EOMI, PERRLA - Neck Neck: Present: normal ROM. Absent: lymphadenopathy, rigidity - Respiratory Respiratory: bilateral: diminished - Cardiovascular Rhythm: regular Heart sounds: normal: S1, S2 - Gastrointestinal General gastrointestinal: Present: soft - Integumentary Integumentary: Present: normal, normal turgor - Musculoskeletal Musculoskeletal: Present: generalized weakness - Psychiatric Psychiatric: Present: appropriate affect - Labs CBC & Chem 7: 02/01/23 05:46 02/01/23 05:46 Labs: Abnormal Lab Results - Last 24 Hours (Table) 01/31/23 01/31/23 01/31/23 Range/Units 11:13 18:00 21:02 WBC (3.8-10.6) k/uL RBC (3.80-5.40) m/uL Hgb (11.4-16.0) gm/dL Hct (34.0-46.0) % Plt Count (150-450) k/uL Carbon Dioxide (22-30) mmol/L BUN (7-17) mg/dL Glucose (74-99) mg/dL POC Glucose (mg/dL) 203 H 341 H 335 H (70-110) mg/dL Phosphorus (2.5-4.5) mg/dL Alkaline Phosphatase (38-126) U/L Albumin (3.5-5.0) g/dL 02/01/23 02/01/23 02/01/23 Range/Units 00:22 05:40 05:46 WBC (3.8-10.6) k/uL RBC (3.80-5.40) m/uL Hgb (11.4-16.0) gm/dL Hct (34.0-46.0) % Plt Count (150-450) k/uL Carbon Dioxide 17 L (22-30) mmol/L BUN 25 H (7-17) mg/dL Glucose 331 H (74-99) mg/dL POC Glucose (mg/dL) 353 H 325 H (70-110) mg/dL Phosphorus 2.3 L (2.5-4.5) mg/dL Alkaline Phosphatase 218 H (38-126) U/L Albumin 2.9 L (3.5-5.0) g/dL 02/01/23 Range/Units 05:46 WBC 32.0 H (3.8-10.6) k/uL RBC 3.43 L (3.80-5.40) m/uL Hgb 10.2 L (11.4-16.0) gm/dL Hct 31.9 L (34.0-46.0) % Plt Count 641 H (150-450) k/uL Carbon Dioxide (22-30) mmol/L BUN (7-17) mg/dL Glucose (74-99) mg/dL POC Glucose (mg/dL) (70-110) mg/dL Phosphorus (2.5-4.5) mg/dL Alkaline Phosphatase (38-126) U/L Albumin (3.5-5.0) g/dL Microbiology - Last 24 Hours (Table) 01/29/23 09:24 Gram Stain - Preliminary Diaz-Benítez Body Fluid Culture - Preliminary 01/28/23 15:10 Blood Culture - Preliminary Blood 01/27/23 14:11 Blood Culture - Preliminary Blood 01/27/23 14:00 Blood Culture - Preliminary Blood 01/28/23 22:08 Gram Stain - Final Sputum Sputum Culture - Final Enterobacter aerogenes 01/28/23 17:29 Gram Stain - Final Sputum Sputum Culture - Final Enterobacter aerogenes Assessment and Plan (1) Ischemic bowel disease Current Visit: Yes Status: Acute Code(s): K55.9 - VASCULAR DISORDER OF INTESTINE, UNSPECIFIED SNOMED Code(s): 00904544 (2) COPD (chronic obstructive pulmonary disease) Current Visit: No Status: Acute Code(s): J44.9 - CHRONIC OBSTRUCTIVE PULMONARY DISEASE, UNSPECIFIED SNOMED Code(s): 82212702 (3) Type 2 diabetes mellitus Current Visit: No Status: Acute Code(s): E11.9 - TYPE 2 DIABETES MELLITUS WITHOUT COMPLICATIONS SNOMED Code(s): 48946854 (4) Ischemic colitis Current Visit: Yes Status: Acute Code(s): K55.9 - VASCULAR DISORDER OF INTESTINE, UNSPECIFIED SNOMED Code(s): 54968841 (5) History of below-knee amputation of right lower extremity Current Visit: No Status: Acute Code(s): Z89.511 - ACQUIRED ABSENCE OF RIGHT LEG BELOW KNEE SNOMED Code(s): 819398777588098 (6) Opioid dependence Current Visit: No Status: Acute Code(s): F11.20 - OPIOID DEPENDENCE, UNCOMPLICATED SNOMED Code(s): 93437829 Plan: Appreciate multiple consultants. Check labs in the a.m. Patient seen and evaluated by nurse practitioner, physician in agreement with plan
[2023-02-01] MEDS: IPRATROPIUM-ALBUTEROL 3 ML NEB INHALATION SCH ×4 (08:40→20:49)
[2023-02-01] MEDS: GABAPENTIN 100 MG CAP PO SCH ×2 (09:10→20:53)
[2023-02-01] MEDS: NICOTINE 21MG/24HR PATCH TRANSDERM SCH (09:10)
[2023-02-01] MEDS: LEVOTHYROXINE 88 MCG TAB PO SCH (09:10)
[2023-02-01] MEDS: PANTOPRAZOLE 40 MG/10 ML VIAL IV SCH (09:10)
[2023-02-01] MEDS: CEFEPIME 2 GM in SODIUM CHLORIDE 0.9% 100 ML IVPB SCH ×2 (09:11→20:52)
[2023-02-01] MEDS: hydrALAZINE HCL 20 MG/ML 1 ML VIAL IVP PRN (09:11)
[2023-02-01] MEDS: ENOXAPARIN 30 MG/0.3 ML SYRINGE SQ SCH (09:12)
--- NOTE | 2023-02-01 09:15 | XR ---
EXAMINATION TYPE: XR abdomen 2V DATE OF EXAM: 02/01/2023 COMPARISON: 01/31/2023 HISTORY: Pain TECHNIQUE: One view abdominal series FINDINGS: The osseous structures are intact. The bowel gas pattern is nonspecific. Lung bases are clear. NG t ube noted are surgical tray. Stomach is reduced relative to the prior exam in size. Postsurgical c hange vertebral column. Persistent dilated bowel loop. IMPRESSION: 1. Nonspecific abdomen. There is reduction in the size of the distended stomach with an NG tube note d in position. The remaining markedly dilated small bowel loops in the left abdomen to correlate for obstruction or ileus.
[2023-02-01 09:30] LABS: Band Neutrophils % 5 %; Lymphocytes # (M) 2.24 k/uL (1.0-4.8); Metamyelocytes # (M) 0.64 k/uL (0); Metamyelocytes % 2 %; Myelocytes # (M) 0.64 k/uL (0); Myelocytes % 2 %; Neutrophils % (M) 80 %; Nucleated Red Blood Cells 0 /100 WBC (0-0); Total Cells Counted 200
[2023-02-01] MEDS ORDERED: SODIUM PHOSPHATE 15 MMOL in DEXTROSE 5% IN WATER 250 ML IVPB ONE ×2 (09:30)
[2023-02-01] MEDS: amLODIPine 10 MG TAB PO SCH (09:57)
[2023-02-01] MEDS ORDERED: cloNIDine 0.3 MG/24HR PATCH TRANSDERM SCH (10:00)
[2023-02-01] MEDS ORDERED: SODIUM BICARB 8.4% 50 ML SYR (1 MEQ/ML) IV STA (10:48)
--- NOTE | 2023-02-01 11:31 | P.PN ---
Subjective Patient is seen in follow-up for acute kidney injury. Renal function back to baseline. Receiving TPN as well as normal saline. Potassium and phosphorus being replaced. Nonoliguric. Extubated 01/30/2023. On Cleviprex. Sitter at bedside. Vital signs are stable. General: Resting in bed. HEENT: NG tube noted. LUNGS: No audible rhonchi or wheezes. HEART: Rate and Rhythm are regular. ABDOMEN: Ileostomy noted. EXTREMITITES: No edema. Right BKA. Objective - Vital Signs Vital signs: Vital Signs Temp 98.0 F 02/01/23 08:00 Pulse 103 H 02/01/23 11:00 Resp 24 02/01/23 11:00 BP 151/68 02/01/23 11:00 Pulse Ox 94 L 02/01/23 11:00 FiO2 40 01/30/23 12:00 Intake & Output 01/31/23 02/01/23 02/01/23 18:59 06:59 18:59 Intake Total 2137.367 2249.133 2381.1 Output Total 2975 3675 925 Balance -837.633 -8433.375 7247.1 Weight 81.2 kg 76.5 kg Intake: IV 1450 900 594 ACETAMINOPHEN IV (For NPO 200 200 100 ) 1,000 mg In Empty Bag 1 bag @ 400 mls/hr IVPB Q6H [facility] Rx#:[id number] Anidulafungin 100 mg In 100 Sodium Chloride 0.9% 100 ml @ 84 mls/hr IVPB DAILY @1500 [facility] Rx#:[id number] Cefepime 2 gm In Sodium 100 100 100 Chloride 0.9% 100 ml @ 25 mls/hr IVPB Q12HR [facility] Rx #:[id number] Mvi, Adult No.4 with Vit 244 K 10 ml Trace (Conc-1Ml/ Dose) 1 ml Sodium Acetate 34 meq Potassium Chloride 20 meq Calcium Gluconate 1 gm Magnesium Sulfate gm 0.5 gm In Amino Acid 4.25%-D10w 1, 000 ml @ 61 mls/hr IV .BY DURATION [facility] Rx#: [id number] Piperacillin-Tazobactam 3 100 .375 gm In Sodium Chloride 0.9% 100 ml @ 25 mls/hr IVPB Q8HR [facility] Rx# :[id number] Potassium Chloride 10 meq 400 In Water For Injection 1 100ml.bag @ 100 mls/hr IVPB Q1HR [facility] Rx#: [id number] Sodium Chloride 0.9% 1, 550 600 150 000 ml @ 50 mls/hr IV . Q20H [facility] Rx#:[id number] Intake, IV Titration 67.367 255.960 3577.1 Amount Clevidipine Butyrate 25 67.367 109.133 56.0 mg In Empty Bag 1 bag @ 1 MG/HR 2 mls/hr IV .Q24H [facility] Rx#:[id number] Magnesium Sulfate-D5w Pmx 100 1 gm In Dextrose/Water 1 100ml.bag @ 100 mls/hr IVPB ONCE ONE Rx#: [id number] Potassium Chloride 10 meq 200 In Water For Injection 1 100ml.bag @ 100 mls/hr IVPB Q1H [facility] Rx#: [id number] Potassium Chloride 10 meq 200 In Water For Injection 1 100ml.bag @ 100 mls/hr IVPB Q1H [facility] Rx#: [id number] Sodium Acetate 34 meq 921.1 Potassium Chloride 40 meq Calcium Gluconate 1 gm Magnesium Sulfate gm 0.5 gm In Amino Acid 4.25%- D10w 1,000 ml @ 61 mls/hr IV .BY DURATION [facility] Rx#: [id number] Sodium Chloride 0.9% 1, 200 000 ml @ 50 mls/hr IV . Q20H [facility] Rx#:[id number] Sodium Phosphate 15 mmol 250 In Dextrose 5% in Water 250 ml @ 127.5 mls/hr IVPB ONCE ONE Rx#: [id number] metroNIDAZOLE-NS PMX 500 100 100 mg In Saline 1 100ml.bag @ 100 mls/hr IVPB Q8HR [facility] Rx#:[id number] Oral 200 120 TPN/PPN 420 720 60 Mvi, Adult No.4 with Vit 420 720 60 K 10 ml Trace (Conc-1Ml/ Dose) 1 ml Sodium Acetate 34 meq Potassium Chloride 20 meq Calcium Gluconate 1 gm Magnesium Sulfate gm 0.5 gm In Amino Acid 4.25%-D10w 1, 000 ml @ 61 mls/hr IV .BY DURATION [facility] Rx#: [id number] Output: Gastric Drainage 300 150 Drainage 50 Left Lower Abdomen 50 Urine 2525 3675 750 Stool 100 25 Other: Voiding Method Indwelling Catheter Indwelling Catheter ABP, PAP, CO, CI - Last Documented Arterial Blood Pressure 162/42 - Labs CBC & Chem 7: 02/01/23 05:46 02/01/23 05:46 Labs: Abnormal Lab Results - Last 24 Hours (Table) 01/31/23 01/31/23 02/01/23 Range/Units 18:00 21:02 00:22 WBC (3.8-10.6) k/uL RBC (3.80-5.40) m/uL Hgb (11.4-16.0) gm/dL Hct (34.0-46.0) % Plt Count (150-450) k/uL Neutrophils # (Manual) (1.3-7.7) k/uL Monocytes # (Manual) (0-1.0) k/uL Metamyelocytes # (Man) (0) k/uL Myelocytes # (Manual) (0) k/uL Carbon Dioxide (22-30) mmol/L BUN (7-17) mg/dL Glucose (74-99) mg/dL POC Glucose (mg/dL) 341 H 335 H 353 H (70-110) mg/dL Phosphorus (2.5-4.5) mg/dL Alkaline Phosphatase (38-126) U/L Albumin (3.5-5.0) g/dL 02/01/23 02/01/23 02/01/23 Range/Units 05:40 05:46 05:46 WBC 32.0 H (3.8-10.6) k/uL RBC 3.43 L (3.80-5.40) m/uL Hgb 10.2 L (11.4-16.0) gm/dL Hct 31.9 L (34.0-46.0) % Plt Count 641 H (150-450) k/uL Neutrophils # (Manual) 27.20 H (1.3-7.7) k/uL Monocytes # (Manual) 1.60 H (0-1.0) k/uL Metamyelocytes # (Man) 0.64 H (0) k/uL Myelocytes # (Manual) 0.64 H (0) k/uL Carbon Dioxide 17 L (22-30) mmol/L BUN 25 H (7-17) mg/dL Glucose 331 H (74-99) mg/dL POC Glucose (mg/dL) 325 H (70-110) mg/dL Phosphorus 2.3 L (2.5-4.5) mg/dL Alkaline Phosphatase 218 H (38-126) U/L Albumin 2.9 L (3.5-5.0) g/dL Microbiology - Last 24 Hours (Table) 01/28/23 22:08 Gram Stain - Final Sputum Sputum Culture - Final Enterobacter aerogenes 01/28/23 15:10 Blood Culture - Preliminary Blood 01/27/23 14:00 Blood Culture - Preliminary Blood 01/27/23 14:11 Blood Culture - Preliminary Blood 01/29/23 09:24 Gram Stain - Preliminary [facility] Body Fluid Culture - Preliminary 01/28/23 17:29 Gram Stain - Final Sputum Sputum Culture - Final Enterobacter aerogenes Assessment and Plan Plan: Assessment: 1. Acute kidney injury secondary to ATN secondary to septic shock and cardiac arrest. Renal function better. Creatinine 0.79 today. Nonoliguric. No hydronephrosis noted on CAT scan. 2. Metabolic acidosis secondary to acute kidney injury and IV fluids. Status post bicarb drip. 3. Ischemic colitis with necrosis of large intestine status post exploratory laparotomy with total abdominal colectomy and end ileostomy. 4. Status post PEA arrest 01/28/2023. 5. Septic shock secondary to ischemic bowel. Off vasopressors. 6. Hypokalemia from intercellular shifting from IV bicarb and poor intake. Replaced. Improved. 7. Hypophosphatemia from poor intake. Plan: Maintain TPN and normal saline. Potassium and phosphorus being replaced. Continue to monitor renal function and urine output. Avoid nephrotoxins. 2 A of sodium bicarb IV push today. Increase acetate in TPN.
--- NOTE | 2023-02-01 11:44 | P.PN ---
Subjective Progress Note Date: 02/01/23 Principal diagnosis: Abdominal sepsis and ileus 67-year-old female patient is being seen in follow-up on 01/22/2023. A complicated case of abdominal distention, stooling infection requiring surgical intervention along with multiple medical problems and comorbidities P she initi ally presented to us with abdominal pain and she has not had a bowel movement for more than a week. She had significant abdominal distention. She was taken to the operating room and the patient underwent laparotomy, lysis of adhesions, total colectomy, ileostomy and the patient is currently postop day #3. She has been intubated and kept on a mechanical ventilator since. For now, the patient is still on a mechanical ventilator. She is a propofol which is running at 35 mcg/kg/m and she is adequately sedated and symptoms mechanical ventilator. She is on assist-control mode of mechanical ventilation at the rate of 24 with a rate of 24, tidal volume of 400, FiO2 of 30% and a PEEP of 5. Chest x-ray shows cardiomegaly. Some limited infiltrates in the left lung base and the right lower lobe lateral segment. Orotracheal tube is in a good location. The patient also has a triple-lumen catheter in the left subclavian. NG tube is also in good location. For now, the output from the NG tube is minimal. Her IV fluids are running at a rate of 75 mL an hour and the fluid is in the form of a bicarb infusion. She is on no pressors at this point in time in the urine output is in order of 5200 mL an hour. In terms of her electrolytes, the patient's sodium level has been dropping and it's down to 129. BUN is at 40 with a creatinine of 3.47 and a potassium level is at 4.2. Her serum bicarb is improved. She was as low as 13 and she is currently up to 20. Nevertheless, she is developing an acute kidney injury. Her creatinine at time of admission was 1.8 from a normal baseline. She has developed that he worsening of renal function the creatinine is up to 3.47. CAT scan of the abdomen and the pelvis that was done on 01/19/2023 showed no evidence of any hydronephrosis he had she had pancolonic distention with cecum dilatation which was up to 9.4 cm in size. At the same time, her white cell count has dropped down to 17.9 from as high as 25. Hemoglobin is stable at 9.2 and a platelet count is at 159. In terms of cultures, sputum culture has been negative. Abdominal wound cultures were taken and that is also still pending for now and the patient is covered with IV Zosyn. She is afebrile. She is having episodes of low-grade fever. She is on IV Tylenol. She remains hemodynamically stable. The patient remains nothing by mouth for now. The patient has a YASMINE drain located in the left lower quadrant and the output is in order of 200 mL over the past 8 hours. The output is serosanguineous. Her lactic acid level dropped from 7.3 down to 1.8. Blood sugars under adequate control and the patient is taking NovoLog insulin sliding scale coverage. She takes Lantus 55 units twice a day at home. She is also on a combination of Seroquel and Topamax and Prozac at home. On 01/26/2023, the patient is postop day #7. She remains on oxygen at 2 L/m nasal cannula. She is still on TPN for nutritional support. At the same time the patient was given soft and chopped diet with one-to-one supervision. She is able to swallow. She is not meeting her requirements. NG tube was removed yesterday. Ileostomy is functional and there is positive output. She has no s pecific complaints. She is communicating at this point in time. She is hemodynamically stable. She is off the Cleviprex drip. She is on insulin signs good coverage and she is also on IV Zosyn.Blood work today shows a WD skeletal 11.3, hemoglobin 9.3 and a platelet count of 224. Sodium is at 132 with a potassium level of 3.2, BUN is 39 and the creatinine is 1.47. Sugar is 238. The patient is on Levemir insulin 30 units twice a day and she also taken a slight scale coverage. IV fluids and the form of normal saline at rate of 20 mL an hour. She is on Lovenox 30 mg subcu for DVT prophylaxis. The output from the YASMINE drain is serosanguineous and in the order of 70 mL overnight. On 01/27/2023, the patient is postoperative day #8. She is on room air oxygen for now. Doing well. TPN was discontinued and the patient is currently tolerating diet and her ileostomy is functional. No other new complaints otherwise for now. The YASMINE drain is still in place and output is serosanguineous. Hemodynamically stable. No new labs are available from today. Communicating although she is overall weak and somewhat lethargic. Remains on IV Zosyn. Remains on Lovenox for DVT prophylaxis. Remains on Levemir insulin 30 units twice a day and the NovoLog signs good coverage. 01/28/2023, the patient is postop day #9. She is awake and alert and communicating. She was taken off the TPN and currently she is tolerating oral intake. Her ileostomy is functional. YASMINE drains are in place and output is serosanguineous. She is overall weak and she is showing some progress on a daily basis. White cell count was 22 with a hemoglobin 10.2 and a platelet count of 366. BUN is 49 with a creatinine of 2.07 and sodium levels of 1:30. Potassium levels at 4.9. No other new complaints otherwise for now. She is hemodynamically stable. . Dilaudid for pain control. Levemir insulin 30 units twice a day plus a sliding scale coverage. Patient was reevaluated today on 01/29/2023, patient developed an episode of arrest yesterday, she had a 5 minute pulseless electrical activity, patient had to be intubated and mechanically ventilated. Patient had a cardiac arrest while undergoing a computed tomography scan. 3 ML's of brown fluid removed from the nasogastric tube patient was found to have ileus on the CT of the abdomen and pelvis. Received so far for fluids of IV fluids her down time was 3-5 minutes, her ventilator settings today are assist control rate of 24 pressure support of mechanical ventilation with PI of 22, inspiratory time is 0.9 FiO2 is 50%. And PEEP of 5. ABG showed a pO2 of 109 pCO2 of 30 pH of 7.38 hence FiO2 was cut down to 45%. Patient is receiving bicarb drip, she is supposed to have a PICC line placed today. Patient is status post colectomy for ischemic bowel and she was extubated at one point on 02/02. Yesterday she developed a sudden downhill course. She continues to have a functional colostomy, and she has a YASMINE drain in place. Patient remains on daptomycin and Zosyn. She is on propofol at 55 mcg/kg/m she is off norepinephrine today. And she is receiving mostly fluids. WBC count today is 20.8 hemoglobin is 8.4, electrolytes are normal BUN is 46 creatinine 2.14. Chest x-ray is suspicious for a right sideddisease/infiltrate/aspiration pneumonia although the possibility of interstitial edema is not entirely ruled out. But felt to be less likely. Endotracheal tube seems to be sitting up high in the trachea and it will be advanced to COPD Patient was reevaluated today on 01/30/2023, remains in the ICU, intubated and mechanically ventilated. Patient is on pressure control mode of mechanical ventilation with a rate of 24 PI of 22 inspiratory time of 0.9 FiO2 45% and PEEP of 5 ABG showed a pO2 of 106 pCO2 31 pH of 7.45 hence I recommended cutting down the FiO2 to 40%. Patient remains on norepinephrine at 0.08 propofol at 55 mcg/kg/m, bicarb at 75 mL per hour. Considering her bicarb is better today, I'm recommending we stop the bicarb drip. Patient seems to have functional ileostomy nonetheless she continues to have significant output via nasogastric tube. She had 700 mL out on the last shift. She is still quite sedated, and my plan today is to consider a weaning trial if possible off sedation or at least on a lower dose of propofol. Continues to have leukocytosis with WBC count 24.3, hemoglobin is 7.5. Basic metabolic profile is normal bicarb is 21 BUN is 37 creatinine 1.80, steadily improving over the last 2 days. Patient remains on antibiotics in the form of Zosyn, and axis, and daptomycin. This is mostly for ongoing abdominal sepsis. Patient seems to have adequate output in the ileostomy. Chest x-ray is showing improvement in her right lower lobe pneumonia. Sputum is positive for gram-negative bacilli final identification is pending Reevaluated today on 01/31/2023, patient remains in the ICU, she was extubated yesterday, tolerated the extubation well. She is now on 2 L nasal cannula, she is on clevidipine at 3 mg per hour for elevated blood pressure the patient cannot take much orally. Continues to have nasogastric tube in place, still having significant amount of suctioning from the nasogastric tube. She has ostomy that seems to be functional patient is on TPN at 50 mL per hour still on Zosyn and daptomycin she is wheezing, and her chest x-ray showed bilateral infiltrates right more so than left, I suppose the patient had aspiration pneumonia , on proper antibiotics. Renal profile is normal bicarb is 21 Reevaluated today on 02/01/2023, patient remains extubated remains in the ICU, marginal clinical status. Patient continues to have nasogastric tube in place, continues to have ileus based on her flat plate of the abdomen, blood pressure remains high and she is requiring clevidipine at 6 mg per hour. Patient is receiving TPN since we we cannot start enteral feeding mostly because of an ileus. IV fluids remains at KVO patient remains on multiple antibiotics including Flagyl, cefepime and axis. For her blood pressure and recommending clonidine patch him also recommending and Norvasc. Patient is a bit agitated today but she comes down after I talked to her. Continues to have leukocytosis with WBC count of 52 hemoglobin is 10.2, and I believe her leukocytosis is se condary to her abdominal sepsis/ileus and secondary to aspiration pneumonia. Basic metabolic profile is normal and renal profile is normal Objective - Vital Signs Vital signs: Vital Signs Temp 98.0 F 02/01/23 08:00 Pulse 103 H 02/01/23 11:00 Resp 24 02/01/23 11:00 BP 151/68 02/01/23 11:00 Pulse Ox 94 L 02/01/23 11:00 FiO2 40 01/30/23 12:00 Intake & Output 01/31/23 02/01/23 02/01/23 18:59 06:59 18:59 Intake Total 2137.367 2249.133 2381.1 Output Total 2975 3675 925 Balance -837.633 -3578.185 9824.1 Weight 81.2 kg 76.5 kg Intake: IV 1450 900 594 ACETAMINOPHEN IV (For NPO 200 200 100 ) 1,000 mg In Empty Bag 1 bag @ 400 mls/hr IVPB Q6H [facility] Rx#:[id number] Anidulafungin 100 mg In 100 Sodium Chloride 0.9% 100 ml @ 84 mls/hr IVPB DAILY @1500 [facility] Rx#:[id number] Cefepime 2 gm In Sodium 100 100 100 Chloride 0.9% 100 ml @ 25 mls/hr IVPB Q12HR [facility] Rx #:[id number] Mvi, Adult No.4 with Vit 244 K 10 ml Trace (Conc-1Ml/ Dose) 1 ml Sodium Acetate 34 meq Potassium Chloride 20 meq Calcium Gluconate 1 gm Magnesium Sulfate gm 0.5 gm In Amino Acid 4.25%-D10w 1, 000 ml @ 61 mls/hr IV .BY DURATION [facility] Rx#: [id number] Piperacillin-Tazobactam 3 100 .375 gm In Sodium Chloride 0.9% 100 ml @ 25 mls/hr IVPB Q8HR [facility] Rx# :[id number] Potassium Chloride 10 meq 400 In Water For Injection 1 100ml.bag @ 100 mls/hr IVPB Q1HR [facility] Rx#: [id number] Sodium Chloride 0.9% 1, 550 600 150 000 ml @ 50 mls/hr IV . Q20H [facility] Rx#:[id number] Intake, IV Titration 67.367 879.994 9789.1 Amount Clevidipine Butyrate 25 67.367 109.133 56.0 mg In Empty Bag 1 bag @ 1 MG/HR 2 mls/hr IV .Q24H [facility] Rx#:[id number] Magnesium Sulfate-D5w Pmx 100 1 gm In Dextrose/Water 1 100ml.bag @ 100 mls/hr IVPB ONCE ONE Rx#: [id number] Potassium Chloride 10 meq 200 In Water For Injection 1 100ml.bag @ 100 mls/hr IVPB Q1H [facility] Rx#: [id number] Potassium Chloride 10 meq 200 In Water For Injection 1 100ml.bag @ 100 mls/hr IVPB Q1H [facility] Rx#: [id number] Sodium Acetate 34 meq 921.1 Potassium Chloride 40 meq Calcium Gluconate 1 gm Magnesium Sulfate gm 0.5 gm In Amino Acid 4.25%- D10w 1,000 ml @ 61 mls/hr IV .BY DURATION [facility] Rx#: [id number] Sodium Chloride 0.9% 1, 200 000 ml @ 50 mls/hr IV . Q20H [facility] Rx#:[id number] Sodium Phosphate 15 mmol 250 In Dextrose 5% in Water 250 ml @ 127.5 mls/hr IVPB ONCE ONE Rx#: [id number] metroNIDAZOLE-NS PMX 500 100 100 mg In Saline 1 100ml.bag @ 100 mls/hr IVPB Q8HR [facility] Rx#:[id number] Oral 200 120 TPN/PPN 420 720 60 Mvi, Adult No.4 with Vit 420 720 60 K 10 ml Trace (Conc-1Ml/ Dose) 1 ml Sodium Acetate 34 meq Potassium Chloride 20 meq Calcium Gluconate 1 gm Magnesium Sulfate gm 0.5 gm In Amino Acid 4.25%-D10w 1, 000 ml @ 61 mls/hr IV .BY DURATION [facility] Rx#: [id number] Output: Gastric Drainage 300 150 Drainage 50 Left Lower Abdomen 50 Urine 2525 3675 750 Stool 100 25 Other: Voiding Method Indwelling Catheter Indwelling Catheter ABP, PAP, CO, CI - Last Documented Arterial Blood Pressure 162/42 - Exam Physical Exam: Revealed 67-year-old female, on 2 L nasal cannula, in no distress. Head: Atraumatic, normocephalic. HEENT:[Neck is supple.] [No neck masses.] [No thyromegaly.] [No JVD.] EOMI, nonicteric. Nasogastric tube is intact remains in place Chest: Symmetrical chest expansion, fine crackles at the bases Cardiac Exam: [Normal S1 and S2, no S3 gallop, no murmur.] Abdomen: [Soft, nontender, evidence of ileostomy noted. And YASMINE drains noted. Bowel sounds are hypoactive. No abdominal distention is appreciated. Ostomy seems to be functional. Extremities: [No clubbing, no edema, no cyanosis.] Right above-knee amputation noted Neurological alert and oriented 3 no gross focal deficits Psychiatric: Normal mood, affect and normal mental status examination except she seems to be a bit agitated Skin: No rashes. - Labs CBC & Chem 7: 02/01/23 05:46 02/01/23 05:46 Labs: Abnormal Lab Results - Last 24 Hours (Table) 01/31/23 01/31/23 02/01/23 Range/Units 18:00 21:02 00:22 WBC (3.8-10.6) k/uL RBC (3.80-5.40) m/uL Hgb (11.4-16.0) gm/dL Hct (34.0-46.0) % Plt Count (150-450) k/uL Neutrophils # (Manual) (1.3-7.7) k/uL Monocytes # (Manual) (0-1.0) k/uL Metamyelocytes # (Man) (0) k/uL Myelocytes # (Manual) (0) k/uL Carbon Dioxide (22-30) mmol/L BUN (7-17) mg/dL Glucose (74-99) mg/dL POC Glucose (mg/dL) 341 H 335 H 353 H (70-110) mg/dL Phosphorus (2.5-4.5) mg/dL Alkaline Phosphatase (38-126) U/L Albumin (3.5-5.0) g/dL 02/01/23 02/01/23 02/01/23 Range/Units 05:40 05:46 05:46 WBC 32.0 H (3.8-10.6) k/uL RBC 3.43 L (3.80-5.40) m/uL Hgb 10.2 L (11.4-16.0) gm/dL Hct 31.9 L (34.0-46.0) % Plt Count 641 H (150-450) k/uL Neutrophils # (Manual) 27.20 H (1.3-7.7) k/uL Monocytes # (Manual) 1.60 H (0-1.0) k/uL Metamyelocytes # (Man) 0.64 H (0) k/uL Myelocytes # (Manual) 0.64 H (0) k/uL Carbon Dioxide 17 L (22-30) mmol/L BUN 25 H (7-17) mg/dL Glucose 331 H (74-99) mg/dL POC Glucose (mg/dL) 325 H (70-110) mg/dL Phosphorus 2.3 L (2.5-4.5) mg/dL Alkaline Phosphatase 218 H (38-126) U/L Albumin 2.9 L (3.5-5.0) g/dL Microbiology - Last 24 Hours (Table) 01/28/23 22:08 Gram Stain - Final Sputum Sputum Culture - Final Enterobacter aerogenes 01/28/23 15:10 Blood Culture - Preliminary Blood 01/27/23 14:00 Blood Culture - Preliminary Blood 01/27/23 14:11 Blood Culture - Preliminary Blood 01/29/23 09:24 Gram Stain - Preliminary [facility] Body Fluid Culture - Preliminary 01/28/23 17:29 Gram Stain - Final Sputum Sputum Culture - Final Enterobacter aerogenes Assessment and Plan Assessment: Impression: Acute hypoxic respiratory failure secondary to cardiac arrest requiring intubation and mechanical ventilation Cardiac arrest requiring intubation and mechanical ventilation, patient had a PEA cardiac arrest, down time of 5 minutes. In-hospital cardiac arrest. This occurred on 01/28/2023 Status post exploratory laparotomy, lysis of adhesions, total colectomy, ileostomy, abdominal washout, placement of YASMINE drains, placement of wound VAC postoperative day # #13 patient was extubated after this surgery on 01/23/2023 and has been off mechanical ventilation until 01/28 requiring reintubation because of PEA. Patient was extubated again on 01/30/2023. Remains extubated so far. Acute kidney injury improving this is mostly a picture of acute tubular necrosis. 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 As long as the patient is requiring clevidipine. Continue oxygen at 2 L/m titrate accordingly Continue bronchodilators and I added Solu-Medrol 40 mg IV push every 8 hours, will eventually transitioned to oral prednisone, today we'll cut it down to 40 m g IV push every 12 hours Continue antibiotics/antifungal , Eraxis, cefepime, Flagyl, this will adequately collar for abdominal sepsis and for the Enterobacter regimens pneumonia. Continue GI and DVT prophylaxis Continue insulin as per scale Clinical status remains marginal at best. We'll continue to follow Time with Patient: Less than 30
[2023-02-01 12:00] LABS: Glucose,Whole Blood 350 mg/dL (70-110)
--- NOTE | 2023-02-01 13:28 | P.PN ---
Subjective Progress Note Date: 02/01/23 CHIEF COMPLAINT: Acute abdomen with ischemic bowel HISTORY OF PRESENT ILLNESS: Patient is status post exploratory laparotomy with total abdominal colectomy and end ileostomy, lysis of adhesions on 01/19/23. Patient remains in the ICU. Patient on 2 L nasal cannula. mildly tachycardic. White count is trending upwards at 32. She reports no abdominal pain. NG tube output about 400 mL. Her ostomy is functioning. Abdominal x-ray shows reduction in the size of the distended stomach with NG tube in position. The remaining markedly dilated small bowel loops in the left abdomen correlate for obstruction or ileus. Afebrile. WBC 32 Hgb 10.2 platelets 40 56548 potassium 3.8 CO2 17 creatinine 0.79 phosphorous 2.3 and magnesium 1.9. Antibiotics adjusted yesterday per infectious disease. Patient receiving phosphorus and sodium bicarb. PHYSICAL EXAM: VITAL SIGNS: Reviewed GENERAL: Well-developed in no acute distress. HEENT: No sclera icterus. Moist buccal mucosa. Head is atraumatic, normocephalic. NECK: Supple without lymphadenopathy. CHEST: Non-labored respirations and equal bilateral excursions. CARDIOVASCULAR: Palpable 2+ radial pulses. ABDOMEN: Soft. Nondistended. Optifoam dressing clean and dry. YASMINE drain serous output. Stool present in ostomy MUSCULOSKELETAL: No clubbing or cyanosis. NEUROLOGIC: Patient intubated and sedated PSYCH: Appropriate affect. Alert and oriented to person, place and time. SKIN: Well perfused. Good skin turgor. ASSESSMENT: 1. Acute abdomen with ischemic bowel 2. Hypertensive heart disease with congestive heart failure 3. Morbid obesity due to excess calories, BMI over 34.8 4. Acute renal failure due to dehydration 5. History of lower extremity amputee 6. Chronic obstructive pulmonary disease 7. Diabetes type 2, insulin-dependent with diabetic nephropathy 8. Gastroesophageal reflux disease 9. Hypotension due to hypovolemia 10. Lactic acidosis 11. Septic shock due to bowel 12. Status post total abdominal colectomy 13. Cardiac arrest 14. Severe ileus 15. Suspected aspiration pneumonia PLAN: -Continue NG tube for decompression due to severe ileus -Continue daily abdominal x-rays for follow-up on ileus -Keep patient nothing by mouth -Continue NG tube for decompression -Discontinue [place] because it can contribute to an ileus -Continue to replace electrolytes -Add Mylicon chews for gas pain -Add Entereg for Ileus -Check abdominal x-ray daily for further follow-up on patient's ileus -Continue TPN for nutrition support -Continue ICU management -Continue supportive care -Continue antibiotics per ID -GI prophylaxis Protonix and DVT prophylaxis Lovenox Physician Flower Picker note has been reviewed by physician. Signing provider agrees with the documented findings, assessment, and plan of care. Please see additional documentation below. Patient is slightly confused. She has mildly 2. Prior abdominal x-ray demonstrates moderate dilated stomach. NG tube present. Medications adjusted to remove drug second trip to her ileus. Oral narcotics changed to IV Dilaudid. Entereg contraindicated with nasogastric tube. Continue TPN. Follow-up serial abdominal x-rays daily. WBC monitored with leukocytosis likely secondary to aspiration pneumonia as discussed with infectious disease. Discontinue Diaz- Benítez drains as outputs are less than 20 mL daily. Continue ICU care. Objective - Vital Signs Vital signs: Vital Signs Temp 99.0 F 02/01/23 12:00 Pulse 112 H 02/01/23 12:30 Resp 29 H 02/01/23 12:30 BP 163/72 02/01/23 12:30 Pulse Ox 95 02/01/23 12:30 FiO2 40 01/30/23 12:00 Intake & Output 01/31/23 02/01/23 02/01/23 18:59 06:59 18:59 Intake Total 2137.367 2249.133 2513.1 Output Total 2975 3675 1725 Balance -837.633 -1425.867 788.1 Weight 81.2 kg 76.5 kg Intake: IV 1450 900 705 ACETAMINOPHEN IV (For NPO 200 200 100 ) 1,000 mg In Empty Bag 1 bag @ 400 mls/hr IVPB Q6H [facility] Rx#:[id number] Anidulafungin 100 mg In 100 Sodium Chloride 0.9% 100 ml @ 84 mls/hr IVPB DAILY @1500 [facility] Rx#:[id number] Cefepime 2 gm In Sodium 100 100 100 Chloride 0.9% 100 ml @ 25 mls/hr IVPB Q12HR [facility] Rx #:[id number] Mvi, Adult No.4 with Vit 305 K 10 ml Trace (Conc-1Ml/ Dose) 1 ml Sodium Acetate 34 meq Potassium Chloride 20 meq Calcium Gluconate 1 gm Magnesium Sulfate gm 0.5 gm In Amino Acid 4.25%-D10w 1, 000 ml @ 61 mls/hr IV .BY DURATION [facility] Rx#: [id number] Piperacillin-Tazobactam 3 100 .375 gm In Sodium Chloride 0.9% 100 ml @ 25 mls/hr IVPB Q8HR [facility] Rx# :[id number] Potassium Chloride 10 meq 400 In Water For Injection 1 100ml.bag @ 100 mls/hr IVPB Q1HR [facility] Rx#: [id number] Sodium Chloride 0.9% 1, 550 600 200 000 ml @ 50 mls/hr IV . Q20H [facility] Rx#:[id number] Intake, IV Titration 67.367 903.099 6926.1 Amount Clevidipine Butyrate 25 67.367 109.133 77.0 mg In Empty Bag 1 bag @ 1 MG/HR 2 mls/hr IV .Q24H [facility] Rx#:[id number] Magnesium Sulfate-D5w Pmx 100 1 gm In Dextrose/Water 1 100ml.bag @ 100 mls/hr IVPB ONCE ONE Rx#: [id number] Potassium Chloride 10 meq 200 In Water For Injection 1 100ml.bag @ 100 mls/hr IVPB Q1H [facility] Rx#: [id number] Potassium Chloride 10 meq 200 In Water For Injection 1 100ml.bag @ 100 mls/hr IVPB Q1H [facility] Rx#: [id number] Sodium Acetate 34 meq 921.1 Potassium Chloride 40 meq Calcium Gluconate 1 gm Magnesium Sulfate gm 0.5 gm In Amino Acid 4.25%- D10w 1,000 ml @ 61 mls/hr IV .BY DURATION [facility] Rx#: [id number] Sodium Chloride 0.9% 1, 200 000 ml @ 50 mls/hr IV . Q20H [facility] Rx#:[id number] Sodium Phosphate 15 mmol 250 In Dextrose 5% in Water 250 ml @ 127.5 mls/hr IVPB ONCE ONE Rx#: [id number] metroNIDAZOLE-NS PMX 500 100 100 mg In Saline 1 100ml.bag @ 100 mls/hr IVPB Q8HR [facility] Rx#:[id number] Oral 200 120 TPN/PPN 420 720 60 Mvi, Adult No.4 with Vit 420 720 60 K 10 ml Trace (Conc-1Ml/ Dose) 1 ml Sodium Acetate 34 meq Potassium Chloride 20 meq Calcium Gluconate 1 gm Magnesium Sulfate gm 0.5 gm In Amino Acid 4.25%-D10w 1, 000 ml @ 61 mls/hr IV .BY DURATION [facility] Rx#: [id number] Output: Gastric Drainage 300 150 Drainage 50 0 Left Lower Abdomen 50 0 Urine 2525 3675 1550 Stool 100 25 Other: Voiding Method Indwelling Catheter Indwelling Catheter Indwelling Catheter ABP, PAP, CO, CI - Last Documented Arterial Blood Pressure 162/42 - Labs CBC & Chem 7: 02/01/23 05:46 02/01/23 16:37 Labs: Abnormal Lab Results - Last 24 Hours (Table) 01/31/23 01/31/23 02/01/23 Range/Units 18:00 21:02 00:22 WBC (3.8-10.6) k/uL RBC (3.80-5.40) m/uL Hgb (11.4-16.0) gm/dL Hct (34.0-46.0) % Plt Count (150-450) k/uL Neutrophils # (Manual) (1.3-7.7) k/uL Monocytes # (Manual) (0-1.0) k/uL Metamyelocytes # (Man) (0) k/uL Myelocytes # (Manual) (0) k/uL Carbon Dioxide (22-30) mmol/L BUN (7-17) mg/dL Glucose (74-99) mg/dL POC Glucose (mg/dL) 341 H 335 H 353 H (70-110) mg/dL Phosphorus (2.5-4.5) mg/dL Alkaline Phosphatase (38-126) U/L Albumin (3.5-5.0) g/dL 02/01/23 02/01/23 02/01/23 Range/Units 05:40 05:46 05:46 WBC 32.0 H (3.8-10.6) k/uL RBC 3.43 L (3.80-5.40) m/uL Hgb 10.2 L (11.4-16.0) gm/dL Hct 31.9 L (34.0-46.0) % Plt Count 641 H (150-450) k/uL Neutrophils # (Manual) 27.20 H (1.3-7.7) k/uL Monocytes # (Manual) 1.60 H (0-1.0) k/uL Metamyelocytes # (Man) 0.64 H (0) k/uL Myelocytes # (Manual) 0.64 H (0) k/uL Carbon Dioxide 17 L (22-30) mmol/L BUN 25 H (7-17) mg/dL Glucose 331 H (74-99) mg/dL POC Glucose (mg/dL) 325 H (70-110) mg/dL Phosphorus 2.3 L (2.5-4.5) mg/dL Alkaline Phosphatase 218 H (38-126) U/L Albumin 2.9 L (3.5-5.0) g/dL 02/01/23 Range/Units 11:59 WBC (3.8-10.6) k/uL RBC (3.80-5.40) m/uL Hgb (11.4-16.0) gm/dL Hct (34.0-46.0) % Plt Count (150-450) k/uL Neutrophils # (Manual) (1.3-7.7) k/uL Monocytes # (Manual) (0-1.0) k/uL Metamyelocytes # (Man) (0) k/uL Myelocytes # (Manual) (0) k/uL Carbon Dioxide (22-30) mmol/L BUN (7-17) mg/dL Glucose (74-99) mg/dL POC Glucose (mg/dL) 350 H (70-110) mg/dL Phosphorus (2.5-4.5) mg/dL Alkaline Phosphatase (38-126) U/L Albumin (3.5-5.0) g/dL Microbiology - Last 24 Hours (Table) 01/28/23 22:08 Gram Stain - Final Sputum Sputum Culture - Final Enterobacter aerogenes 01/28/23 15:10 Blood Culture - Preliminary Blood 01/27/23 14:00 Blood Culture - Preliminary Blood 01/27/23 14:11 Blood Culture - Preliminary Blood 01/29/23 09:24 Gram Stain - Preliminary [facility] Body Fluid Culture - Preliminary
--- NOTE | 2023-02-01 14:23 | P.CN ---
Psychiatric Consult - . Consult date: 02/01/23 Consult:: 02/01/23 14:23 IDENTIFYING DATA: This patient is a , retired, 67-year-old female who presented to the hospital on 01/19/2023 for abdominal pain. HISTORY OF PRESENT ILLNESS: The patient presented to the hospital on 01/19/2022 for abdominal pain. The patient is currently admitted in the ICU. The patient underwent extensive abdominal surgery for management of acute ischemic colitis with necrosis of her large intestine on 01/19/2023. Patient has had a prolonged and complicated hospital stay and Psychiatry has been consulted for suicidal ideation. Upon evaluation by this provider in the ICU, is an ex-of the patient is her Anna Yost. The patient is agreeable to having him present during the psychiatric interview. The patient expresses that she is feeling extremely depressed and "tired of living." She expresses that she is very upset that she has been in the hospital or 3 weeks now. She does report that she has lost numerous family members including 2 children already and that she is not certain if she has the will to continue living. She is somnolent but tearful throughout the interview. The patient expresses low mood, crying episodes, low energy, poor appetite, and feelings of hopelessness and helplessness. She does report that she has been experienced depression and suicidal ideation in the past even prior to this hospitalization. She reports no auditory or visual hallucinations. She denies any paranoia or other delusions. PAST PSYCHIATRIC HISTORY: Patient has a history of depression. Patient is unable to recall her previous psychiatric medications. As per chart review, she is prescribed Prozac 40 mg, Seroquel 400 mg at bedtime, and Topamax 50 mg twice a day. She does report a history of psychiatric consultations however was unable to currently provide any detail to this provider. Patient denies any psychiatric outpatient follow-up. She reports a remote history of suicidal ideation however does not verbalize any prior attempts. PAST MEDICAL HISTORY: Past Medical History: COPD, Diabetes Mellitus, Hypertension History of Any Multi-Drug Resistant Organisms: None Reported Past Surgical History: Back Surgery, Hysterectomy, Orthopedic Surgery Additional Past Surgical History / Comment(s): rt below knee amp, Left 1st toe amputation Past Anesthesia/Blood Transfusion Reactions: No Reported Reaction Past Psychological History: Depression Smoking Status: Current every day smoker Past Alcohol Use History: None Reported Past Drug Use History: None Reported Additional Drug Use History / Comment(s): Patient states she smokes about 10 cig/day. ALLERGIES: NO KNOWN DRUG ALLERGIES CHEMICAL DEPENDENCY HISTORY: FAMILY PSYCHIATRIC/SUBSTANCE USE HISTORY: Unable to assess at this time. SOCIAL HISTORY: Patient is currently . She has children and grandchildren. She is currently retired. MENTAL STATUS EXAM: General Appearance: Patient appears to be stated age is alert, pleasant, and cooperative. Patient appears to have slightly disheveled hygiene and grooming wearing hospital gown with intermittent eye contact. Right lower extremity amputation. NG tube in place. Behavior: Patient appears to be restless in bed. Speech: Patient's speech is nonspontaneous and low in volume. Mood/Affect: Patient reports their mood is "depressed", affect is congruent and tearful. Somnolent. Suicidality/Homicidality: Patient endorses suicidal ideation however no intention or plan at this time. Passive thoughts of suicide as she does "not want to be here anymore." No homicidal ideation. Perceptions: No reported hallucinations. Though content/process: Dysphoric thought process. Memory and concentration: Grossly intact for the purposes of this session. Judgment and insight: Fair Vital Signs Temp 99.0 F 02/01/23 12:00 Pulse 109 H 02/01/23 13:00 Resp 24 02/01/23 13:30 BP 162/71 02/01/23 13:30 Pulse Ox 93 L 02/01/23 13:30 FiO2 40 01/30/23 12:00 Intake & Output 01/31/23 02/01/23 02/01/23 18:59 06:59 18:59 Intake Total 2137.367 2249.133 2624.1 Output Total 2975 3675 1950 Balance -837.633 -1425.867 674.1 Weight 81.2 kg 76.5 kg Intake: IV 1450 900 755 ACETAMINOPHEN IV (For NPO 200 200 100 ) 1,000 mg In Empty Bag 1 bag @ 400 mls/hr IVPB Q6H [facility] Rx#:[id number] Anidulafungin 100 mg In 100 Sodium Chloride 0.9% 100 ml @ 84 mls/hr IVPB DAILY @1500 [facility] Rx#:[id number] Cefepime 2 gm In Sodium 100 100 100 Chloride 0.9% 100 ml @ 25 mls/hr IVPB Q12HR [facility] Rx #:[id number] Mvi, Adult No.4 with Vit 305 K 10 ml Trace (Conc-1Ml/ Dose) 1 ml Sodium Acetate 34 meq Potassium Chloride 20 meq Calcium Gluconate 1 gm Magnesium Sulfate gm 0.5 gm In Amino Acid 4.25%-D10w 1, 000 ml @ 61 mls/hr IV .BY DURATION [facility] Rx#: [id number] Piperacillin-Tazobactam 3 100 .375 gm In Sodium Chloride 0.9% 100 ml @ 25 mls/hr IVPB Q8HR [facility] Rx# :[id number] Potassium Chloride 10 meq 400 In Water For Injection 1 100ml.bag @ 100 mls/hr IVPB Q1HR [facility] Rx#: [id number] Sodium Chloride 0.9% 1, 550 600 250 000 ml @ 50 mls/hr IV . Q20H [facility] Rx#:[id number] Intake, IV Titration 67.367 916.968 8169.1 Amount Clevidipine Butyrate 25 67.367 109.133 77.0 mg In Empty Bag 1 bag @ 1 MG/HR 2 mls/hr IV .Q24H [facility] Rx#:[id number] Magnesium Sulfate-D5w Pmx 100 1 gm In Dextrose/Water 1 100ml.bag @ 100 mls/hr IVPB ONCE ONE Rx#: [id number] Mvi, Adult No.4 with Vit 61 K 10 ml Trace (Conc-1Ml/ Dose) 1 ml Sodium Acetate 34 meq Potassium Chloride 40 meq Calcium Gluconate 1 gm Magnesium Sulfate gm 0.5 gm In Amino Acid 4.25%-D10w 1, 000 ml @ 61 mls/hr IV .BY DURATION [facility] Rx#: [id number] Potassium Chloride 10 meq 200 In Water For Injection 1 100ml.bag @ 100 mls/hr IVPB Q1H [facility] Rx#: [id number] Potassium Chloride 10 meq 200 In Water For Injection 1 100ml.bag @ 100 mls/hr IVPB Q1H [facility] Rx#: [id number] Sodium Acetate 34 meq 921.1 Potassium Chloride 40 meq Calcium Gluconate 1 gm Magnesium Sulfate gm 0.5 gm In Amino Acid 4.25%- D10w 1,000 ml @ 61 mls/hr IV .BY DURATION [facility] Rx#: [id number] Sodium Chloride 0.9% 1, 200 000 ml @ 50 mls/hr IV . Q20H [facility] Rx#:[id number] Sodium Phosphate 15 mmol 250 In Dextrose 5% in Water 250 ml @ 127.5 mls/hr IVPB ONCE ONE Rx#: [id number] metroNIDAZOLE-NS PMX 500 100 100 mg In Saline 1 100ml.bag @ 100 mls/hr IVPB Q8HR [facility] Rx#:[id number] Oral 200 120 TPN/PPN 420 720 60 Mvi, Adult No.4 with Vit 420 720 60 K 10 ml Trace (Conc-1Ml/ Dose) 1 ml Sodium Acetate 34 meq Potassium Chloride 20 meq Calcium Gluconate 1 gm Magnesium Sulfate gm 0.5 gm In Amino Acid 4.25%-D10w 1, 000 ml @ 61 mls/hr IV .BY DURATION [facility] Rx#: [id number] Output: Gastric Drainage 300 150 Drainage 50 0 Left Lower Abdomen 50 0 Urine 2525 3675 1775 Stool 100 25 Other: Voiding Method Indwelling Catheter Indwelling Catheter Indwelling Catheter ABP, PAP, CO, CI - Last Documented Arterial Blood Pressure 162/42 Laboratory Results WBC 32.0 k/uL (3.8-10.6) H 02/01/23 05:46 RBC 3.43 m/uL (3.80-5.40) L 02/01/23 05:46 Hgb 10.2 gm/dL (11.4-16.0) L 02/01/23 05:46 Hct 31.9 % (34.0-46.0) L 02/01/23 05:46 MCV 93.0 fL (80.0-100.0) 02/01/23 05:46 MCH 29.7 pg (25.0-35.0) 02/01/23 05:46 MCHC 32.0 g/dL (31.0-37.0) 02/01/23 05:46 RDW 14.7 % (11.5-15.5) 02/01/23 05:46 Plt Count 641 k/uL (150-450) H 02/01/23 05:46 MPV 8.6 02/01/23 05:46 Neutrophils % 93 % 01/29/23 04:30 Neutrophils % (Manual) 80 % 02/01/23 05:46 Band Neuts % (Manual) 5 % 02/01/23 05:46 Lymphocytes % 3 % 01/29/23 04:30 Lymphocytes % (Manual) 7 % 02/01/23 05:46 Monocytes % 2 % 01/29/23 04:30 Monocytes % (Manual) 5 % 02/01/23 05:46 Eosinophils % 0 % 01/29/23 04:30 Eosinophils % (Manual) 1 % 01/31/23 04:45 Basophils % 0 % 01/29/23 04:30 Metamyelocytes % 2 % 02/01/23 05:46 Myelocytes % 2 % 02/01/23 05:46 Neutrophils # 19.3 k/uL (1.3-7.7) H 01/29/23 04:30 Neutrophils # (Manual) 27.20 k/uL (1.3-7.7) H 02/01/23 05:46 Lymphocytes # 0.7 k/uL (1.0-4.8) L 01/29/23 04:30 Lymphocytes # (Manual) 2.24 k/uL (1.0-4.8) 02/01/23 05:46 Monocytes # 0.4 k/uL (0-1.0) 01/29/23 04:30 Monocytes # (Manual) 1.60 k/uL (0-1.0) H 02/01/23 05:46 Eosinophils # 0.1 k/uL (0-0.7) 01/29/23 04:30 Eosinophils # (Manual) 0.30 k/uL (0-0.7) 01/31/23 04:45 Basophils # 0.1 k/uL (0-0.2) 01/29/23 04:30 Metamyelocytes # (Man) 0.64 k/uL (0) H 02/01/23 05:46 Myelocytes # (Manual) 0.64 k/uL (0) H 02/01/23 05:46 Nucleated RBCs 0 /100 WBC (0-0) 02/01/23 05:46 Manual Slide Review Performed 02/01/23 05:46 RBC Morphology Normal 01/20/23 00:10 Polychromasia Present 01/31/23 04:45 Hypochromasia Slight 02/01/23 05:46 Anisocytosis (manual) Present 01/31/23 04:45 Tear Drop Cells Present 01/19/23 10:49 PT 10.9 sec (9.0-12.0) 01/29/23 11:30 INR 1.0 (<1.2) 01/29/23 11:30 APTT 25.0 sec (22.0-30.0) 01/19/23 13:21 Sample Site familia 01/30/23 13:01 ABG pH 7.41 (7.35-7.45) 01/30/23 13:01 ABG pCO2 36 mmHg (35-45) 01/30/23 13:01 ABG pO2 81 mmHg (83-108) L 01/30/23 13:01 ABG HCO3 23 mmol/L (21-25) 01/30/23 13:01 ABG Total CO2 24 mmol/L (19-24) 01/30/23 13:01 ABG O2 Saturation 96.4 % (94-97) 01/30/23 13:01 ABG Base Excess -1.9 mmol/L 01/30/23 13:01 Williams Test Yes 01/30/23 13:01 FiO2 40 % 01/30/23 13:01 Sodium 138 mmol/L (137-145) 02/01/23 05:46 Potassium 3.8 mmol/L (3.5-5.1) 02/01/23 05:46 Chloride 107 mmol/L (98-107) 02/01/23 05:46 Carbon Dioxide 17 mmol/L (22-30) L 02/01/23 05:46 Anion Gap 14 mmol/L 02/01/23 05:46 BUN 25 mg/dL (7-17) H 02/01/23 05:46 Creatinine 0.79 mg/dL (0.52-1.04) 02/01/23 05:46 Est GFR (CKD-EPI)AfAm >90 (>60 ml/min/1.73 sqM) 02/01/23 05:46 Est GFR (CKD-EPI)NonAf 78 (>60 ml/min/1.73 sqM) 02/01/23 05:46 Glucose 331 mg/dL (74-99) H 02/01/23 05:46 POC Glucose (mg/dL) 350 mg/dL (70-110) H 02/01/23 11:59 POC Glu Sheet Metal Mechanic ID Faulkner, Shannan 02/01/23 11:59 Lactic Ac Sepsis Rflx Y 01/20/23 03:58 Plasma Lactic Acid Kashif 1.6 mmol/L (0.7-2.0) 01/28/23 15:10 Calcium 8.4 mg/dL (8.4-10.2) 02/01/23 05:46 Ionized Calcium Mary 4.9 mg/dL (4.5-5.3) 01/30/23 06:35 Phosphorus 2.3 mg/dL (2.5-4.5) L 02/01/23 05:46 Magnesium 1.9 mg/dL (1.6-2.3) 02/01/23 05:46 Total Bilirubin 0.6 mg/dL (0.2-1.3) 02/01/23 05:46 AST 22 U/L (14-36) 02/01/23 05:46 ALT 18 U/L (4-34) 02/01/23 05:46 Alkaline Phosphatase 218 U/L (38-126) H 02/01/23 05:46 Ammonia <9 umol/L (<30) 01/28/23 15:10 Total Protein 6.5 g/dL (6.3-8.2) 02/01/23 05:46 Albumin 2.9 g/dL (3.5-5.0) L 02/01/23 05:46 Triglycerides 502.00 mg/dL (0.00-149.00) H 01/23/23 04:08 Amylase 69 U/L (30-110) 01/19/23 10:49 Lipase 107 U/L (23-300) 01/19/23 10:49 Procalcitonin 0.95 ng/mL (0.02-0.09) H 01/28/23 15:10 Urine Color Yellow 01/27/23 15:29 Urine Appearance Clear (Clear) 01/27/23 15:29 Urine pH 6.5 (5.0-8.0) 01/27/23 15:29 Ur Specific [place] 1.019 (1.001-1.035) 01/27/23 15:29 Urine Protein 1+ (Negative) H 01/27/23 15:29 Urine Glucose (UA) Negative (Negative) 01/27/23 15:29 Urine Ketones Negative (Negative) 01/27/23 15:29 Urine Blood Trace (Negative) H 01/27/23 15:29 Urine Nitrite Negative (Negative) 01/27/23 15: Urine Bilirubin Negative (Negative) 01/27/23 15: Urine Urobilinogen <2.0 mg/dL (<2.0) 01/27/23 15:29 Ur Leukocyte Esterase Large (Negative) H 01/27/23 15:29 Urine RBC 3 /hpf (0-5) 01/27/23 15:29 Urine WBC 33 /hpf (0-5) H 01/27/23 15:29 Ur Squamous Epith Cells <1 /hpf (0-4) 01/27/23 15:29 Urine Bacteria Rare /hpf (None) H 01/27/23 15: Hyaline Casts 7 /lpf (0-2) H 01/19/23 12:42 Urine Mucus Rare /hpf (None) H 01/19/23 12:42 Urine Yeast (Budding) Few /hpf (None) H 01/27/23 15:29 Ur Random Creatinine 116.0 mg/dL 01/27/23 15:29 Ur Random Sodium <20 mmol/L (40-220) L 01/27/23 15:29 Ur Random Urea Nitrogn 543.0 mg/dL 01/27/23 15:29 Influenza Type A (PCR) Not Detected (Not Detectd) 01/28/23 15:00 Influenza Type B (PCR) Not Detected (Not Detectd) 01/28/23 15:00 RSV (PCR) Not Detected (Not Detectd) 01/28/23 15:00 SARS-CoV-2 (PCR) Not Detected (Not Detectd) 01/28/23 15:00 Blood Type O Positive 01/19/23 17:01 Blood Type Confirm O Positive 01/19/23 17:16 Blood Type Recheck No Previous Record 01/19/23 17:01 Bld Type Recheck Status CABO Indicated 01/19/23 17:01 Antibody Screen NEGATIVE 01/19/23 17:01 Spec Expiration Date 01/22/2023 - 230001/19/23 17:01 IMPRESSIONS: Depressive disorder secondary to general medical condition Acute abdomen with ischemic bowel Morbid obesity Acute renal failure due to dehydration COPD Diabetes type 2 Suspected aspiration pneumonia PLAN: -At this time patient DOES NOT meet criteria for inpatient psychiatric admission. Patient has numerous medical conditions that are exclusionary criteria for inpatient psychiatric admission. -Delirium precautions recommended with patient including - avoiding use of narcotics and [employer] sedatives, limit anticholinergic medications when possible, frequent re-orientation, minimize use of restraints, open window shades during the day and close them at night -Would recommend the following medication changes/additions: We'll start Remeron 15 mg by NG tube at bedtime for depression/insomnia -Approximately 25 minutes were spent providing the patient was reflective listening and supportive psychotherapy. -May discontinue one-to-one sitter at this time. The patient does not express any active desire to try to kill herself. Continue with appropriate checks. -Patient would benefit from spiritual care -Will continue to follow along 02/01/23 14:23
[2023-02-01] MEDS: NOREPINEPHRINE 4 MG in SODIUM CHLORIDE 0.9% 250 ML IV SCH (14:31)
--- NOTE | 2023-02-01 14:33 | P.PN ---
Subjective Progress Note Date: 02/01/23 Principal diagnosis: Ischemic colitis patient is a 67-year-old female with a past medical history significant for type 2 diabetes mellitus COPD morbid obesity did have a history of right below the knee amputation and left big toe amputation history of smoking presenting to the hospital with a 2-week history of abdominal pain , patient has been diagnosed with ischemic colitis in this patient with status post subtotal colectomy and ileostomy. Patient has been extubated as of 01/23/2023, patient did have a cardiac arrest 01/28/2023 evening requiring resuscitation and intubation On today's evaluation that is 02/01/2023, the patient remains to be afebrile, patient is breathing comfortably on room air patient denies having any chest pain shortness of breath occasional cough still have the NG no further vomiting has been reported Objective - Vital Signs Vital signs: Vital Signs Temp 99.0 F 02/01/23 12:00 Pulse 112 H 02/01/23 12:30 Resp 29 H 02/01/23 12:30 BP 163/72 02/01/23 12:30 Pulse Ox 95 02/01/23 12:30 FiO2 40 01/30/23 12:00 Intake & Output 01/31/23 02/01/23 02/01/23 18:59 06:59 18:59 Intake Total 2137.367 2249.133 2508.3 Output Total 2975 3675 1725 Balance -837.633 -1425.867 783.3 Weight 81.2 kg 76.5 kg Intake: IV 1450 900 705 ACETAMINOPHEN IV (For NPO 200 200 100 ) 1,000 mg In Empty Bag 1 bag @ 400 mls/hr IVPB Q6H [facility] Rx#:[id number] Anidulafungin 100 mg In 100 Sodium Chloride 0.9% 100 ml @ 84 mls/hr IVPB DAILY @1500 [facility] Rx#:[id number] Cefepime 2 gm In Sodium 100 100 100 Chloride 0.9% 100 ml @ 25 mls/hr IVPB Q12HR [facility] Rx #:[id number] Mvi, Adult No.4 with Vit 305 K 10 ml Trace (Conc-1Ml/ Dose) 1 ml Sodium Acetate 34 meq Potassium Chloride 20 meq Calcium Gluconate 1 gm Magnesium Sulfate gm 0.5 gm In Amino Acid 4.25%-D10w 1, 000 ml @ 61 mls/hr IV .BY DURATION [facility] Rx#: [id number] Piperacillin-Tazobactam 3 100 .375 gm In Sodium Chloride 0.9% 100 ml @ 25 mls/hr IVPB Q8HR [facility] Rx# :[id number] Potassium Chloride 10 meq 400 In Water For Injection 1 100ml.bag @ 100 mls/hr IVPB Q1HR [facility] Rx#: [id number] Sodium Chloride 0.9% 1, 550 600 200 000 ml @ 50 mls/hr IV . Q20H [facility] Rx#:[id number] Intake, IV Titration 67.367 296.551 4778.3 Amount Clevidipine Butyrate 25 67.367 109.133 72.2 mg In Empty Bag 1 bag @ 1 MG/HR 2 mls/hr IV .Q24H [facility] Rx#:[id number] Magnesium Sulfate-D5w Pmx 100 1 gm In Dextrose/Water 1 100ml.bag @ 100 mls/hr IVPB ONCE ONE Rx#: [id number] Potassium Chloride 10 meq 200 In Water For Injection 1 100ml.bag @ 100 mls/hr IVPB Q1H [facility] Rx#: [id number] Potassium Chloride 10 meq 200 In Water For Injection 1 100ml.bag @ 100 mls/hr IVPB Q1H [facility] Rx#: [id number] Sodium Acetate 34 meq 921.1 Potassium Chloride 40 meq Calcium Gluconate 1 gm Magnesium Sulfate gm 0.5 gm In Amino Acid 4.25%- D10w 1,000 ml @ 61 mls/hr IV .BY DURATION [facility] Rx#: [id number] Sodium Chloride 0.9% 1, 200 000 ml @ 50 mls/hr IV . Q20H [facility] Rx#:[id number] Sodium Phosphate 15 mmol 250 In Dextrose 5% in Water 250 ml @ 127.5 mls/hr IVPB ONCE ONE Rx#: [id number] metroNIDAZOLE-NS PMX 500 100 100 mg In Saline 1 100ml.bag @ 100 mls/hr IVPB Q8HR [facility] Rx#:[id number] Oral 200 120 TPN/PPN 420 720 60 Mvi, Adult No.4 with Vit 420 720 60 K 10 ml Trace (Conc-1Ml/ Dose) 1 ml Sodium Acetate 34 meq Potassium Chloride 20 meq Calcium Gluconate 1 gm Magnesium Sulfate gm 0.5 gm In Amino Acid 4.25%-D10w 1, 000 ml @ 61 mls/hr IV .BY DURATION [facility] Rx#: [id number] Output: Gastric Drainage 300 150 Drainage 50 0 Left Lower Abdomen 50 0 Urine 2525 3675 1550 Stool 100 25 Other: Voiding Method Indwelling Catheter Indwelling Catheter Indwelling Catheter ABP, PAP, CO, CI - Last Documented Arterial Blood Pressure 162/42 - Exam GENERAL DESCRIPTION: An elderly female lying in bed in no distress RESPIRATORY SYSTEM: Unlabored breathing , decreased intensity of breath sounds bilaterally HEART: S1 S2 regular rate and rhythm , ABDOMEN: Soft , mild distention EXTREMITIES: Right BK stump incision is healed - Labs CBC & Chem 7: 02/01/23 05:46 02/01/23 05:46 Labs: Abnormal Lab Results - Last 24 Hours (Table) 01/31/23 01/31/23 02/01/23 Range/Units 18:00 21:02 00:22 WBC (3.8-10.6) k/uL RBC (3.80-5.40) m/uL Hgb (11.4-16.0) gm/dL Hct (34.0-46.0) % Plt Count (150-450) k/uL Neutrophils # (Manual) (1.3-7.7) k/uL Monocytes # (Manual) (0-1.0) k/uL Metamyelocytes # (Man) (0) k/uL Myelocytes # (Manual) (0) k/uL Carbon Dioxide (22-30) mmol/L BUN (7-17) mg/dL Glucose (74-99) mg/dL POC Glucose (mg/dL) 341 H 335 H 353 H (70-110) mg/dL Phosphorus (2.5-4.5) mg/dL Alkaline Phosphatase (38-126) U/L Albumin (3.5-5.0) g/dL 02/01/23 02/01/23 02/01/23 Range/Units 05:40 05:46 05:46 WBC 32.0 H (3.8-10.6) k/uL RBC 3.43 L (3.80-5.40) m/uL Hgb 10.2 L (11.4-16.0) gm/dL Hct 31.9 L (34.0-46.0) % Plt Count 641 H (150-450) k/uL Neutrophils # (Manual) 27.20 H (1.3-7.7) k/uL Monocytes # (Manual) 1.60 H (0-1.0) k/uL Metamyelocytes # (Man) 0.64 H (0) k/uL Myelocytes # (Manual) 0.64 H (0) k/uL Carbon Dioxide 17 L (22-30) mmol/L BUN 25 H (7-17) mg/dL Glucose 331 H (74-99) mg/dL POC Glucose (mg/dL) 325 H (70-110) mg/dL Phosphorus 2.3 L (2.5-4.5) mg/dL Alkaline Phosphatase 218 H (38-126) U/L Albumin 2.9 L (3.5-5.0) g/dL 02/01/23 Range/Units 11:59 WBC (3.8-10.6) k/uL RBC (3.80-5.40) m/uL Hgb (11.4-16.0) gm/dL Hct (34.0-46.0) % Plt Count (150-450) k/uL Neutrophils # (Manual) (1.3-7.7) k/uL Monocytes # (Manual) (0-1.0) k/uL Metamyelocytes # (Man) (0) k/uL Myelocytes # (Manual) (0) k/uL Carbon Dioxide (22-30) mmol/L BUN (7-17) mg/dL Glucose (74-99) mg/dL POC Glucose (mg/dL) 350 H (70-110) mg/dL Phosphorus (2.5-4.5) mg/dL Alkaline Phosphatase (38-126) U/L Albumin (3.5-5.0) g/dL Microbiology - Last 24 Hours (Table) 01/28/23 22:08 Gram Stain - Final Sputum Sputum Culture - Final Enterobacter aerogenes 01/28/23 15:10 Blood Culture - Preliminary Blood 01/27/23 14:00 Blood Culture - Preliminary Blood 01/27/23 14:11 Blood Culture - Preliminary Blood 01/29/23 09:24 Gram Stain - Preliminary [facility] Body Fluid Culture - Preliminary 01/28/23 17:29 Gram Stain - Final Sputum Sputum Culture - Final Enterobacter aerogenes Assessment and Plan (1) Ischemic colitis Current Visit: Yes Status: Acute Code(s): K55.9 - VASCULAR DISORDER OF INTESTINE, UNSPECIFIED SNOMED Code(s): 41940602 (2) Sepsis Current Visit: No Status: Acute Code(s): A41.9 - SEPSIS, UNSPECIFIED ORGANISM SNOMED Code(s): 26089425 Plan: 1patient presented to hospital abdominal pain has been diagnosed with ischemic colitis in this patient infusion of septic shock with low-grade fever tachycardia elevated white count elevated lactic acid source being ischemic large bowel status post subtotal colectomy and end ileostomy , patient subsequently did have worsening of her respiratory status and cardiac arrest r equiring reintubation and the patient was subsequently extubated 2-patient did have a new fever, and significant worsening of her clinical condition and concern for aspiration pneumonia, sputum is growing Enterobacter that is intermediate sensitivity to Zosyn antibiotic has been switched over to cefepime and Flagyl which will be continued and will monitor her white count closely which is still elevated, family the bedside questions were answered Time with Patient: Less than 30
[2023-02-01] MEDS: ANIDULAFUNGIN 100 MG in SODIUM CHLORIDE 0.9% 100 ML IVPB SCH (14:38)
[2023-02-01] MEDS: ALVIMOPAN 12 MG CAPSULE PO SCH ×3 (15:23→20:54)
[2023-02-01] MEDS: SIMETHICONE 80 MG CHEWABLE PO SCH (15:24)
[2023-02-01 18:13] LABS: Glucose,Whole Blood 383 mg/dL (70-110)
[2023-02-01] MEDS: MIRTAZAPINE 15 MG TAB NG-TUBE SCH (20:53)
[2023-02-02 00:05] LABS: Glucose,Whole Blood 310 mg/dL (70-110)
[2023-02-02] MEDS: INSULIN ASPART (NovoLOG) 100 UNIT/ML VIAL SQ SCH ×4 (00:14→19:00)
[2023-02-02] MEDS: CLEVIDIPINE BUTYRATE 25 MG in EMPTY BAG 1 BAG IV SCH ×8 (00:21→20:56)
[2023-02-02] MEDS: HYDROmorphone 1 MG/ML 1 ML SYRINGE IVP PRN ×4 (01:00→21:00)
--- NOTE | 2023-02-02 02:38 | XR ---
EXAM: XR Chest, 1 View CLINICAL HISTORY: ITS.REASON XR Reason: NGT placement TECHNIQUE: Frontal view of the chest. COMPARISON: No relevant prior studies available. FINDINGS: Lungs: Diffuse patchy interstitial infiltrates particularly within the right lung consistent with pneumonia. Right-sided PICC line present with its tip at the cavoatrial junction. Esophageal catheter is present, the tip of which is not visualized on this exam but extends below the left hemidiaphragm. Pleural space: Unremarkable. No pneumothorax. Heart: Unremarkable. No cardiomegaly. Mediastinum: Unremarkable. Bones/joints: Unremarkable. IMPRESSION: Right sided pneumonia.
[2023-02-02] MEDS: SIMETHICONE 80 MG CHEWABLE PO SCH ×4 (03:00→20:54)
[2023-02-02] MEDS: ACETAMINOPHEN IV (For NPO) 1,000 MG in EMPTY BAG 1 BAG IVPB SCH ×4 (03:06→20:53)
[2023-02-02 05:45] LABS: Glucose,Whole Blood 252 mg/dL (70-110)
[2023-02-02] MEDS: SODIUM CHLORIDE 0.9% 1,000 ML IV SCH ×2 (05:54→23:58)
[2023-02-02 07:56] LABS: HCT 33.8 % (34.0-46.0); HGB 10.9 gm/dL (11.4-16.0); Hypochromasia Marked; MCH 30.8 pg (25.0-35.0); MCHC 32.3 g/dL (31.0-37.0); MCV 95.4 fL (80.0-100.0); Mean Platelet Volume 6.8; Platelet Count 743 k/uL (150-450); RBC 3.54 m/uL (3.80-5.40); RDW 14.7 % (11.5-15.5); WBC 24.5 k/uL (3.8-10.6)
[2023-02-02] MEDS: NICOTINE 21MG/24HR PATCH TRANSDERM SCH (07:56)
[2023-02-02 08:08] LABS: Albumin 2.9 g/dL (3.5-5.0); Calcium 8.4 mg/dL (8.4-10.2); Magnesium 1.7 mg/dL (1.6-2.3); Phosphorus 2.4 mg/dL (2.5-4.5); Potassium 3.4 mmol/L (3.5-5.1); Total Bilirubin 0.5 mg/dL (0.2-1.3); Total Protein 6.6 g/dL (6.3-8.2)
[2023-02-02] MEDS: PANTOPRAZOLE 40 MG/10 ML VIAL IV SCH (08:19)
[2023-02-02] MEDS: methylPREDNISolone SOD SUCCI 40 MG/ML 1 ML VIAL IV SCH (08:20)
[2023-02-02] MEDS: CEFEPIME 2 GM in SODIUM CHLORIDE 0.9% 100 ML IVPB SCH ×2 (08:20→20:56)
[2023-02-02] MEDS: ENOXAPARIN 30 MG/0.3 ML SYRINGE SQ SCH (08:20)
[2023-02-02] MEDS: INSULIN DETEMIR (LEVEMIR) 100 UNIT/ML SYR SQ SCH ×2 (08:20→20:58)
[2023-02-02] MEDS: hydrALAZINE HCL 20 MG/ML 1 ML VIAL IVP PRN ×3 (08:20→16:39)
[2023-02-02] MEDS: LEVOTHYROXINE 88 MCG TAB PO SCH (08:21)
[2023-02-02] MEDS: GABAPENTIN 100 MG CAP PO SCH ×2 (08:21→20:54)
[2023-02-02] MEDS: amLODIPine 10 MG TAB PO SCH (08:21)
[2023-02-02] MEDS: metroNIDAZOLE-NS PMX 500 MG in SALINE 1 100ML.BAG IVPB SCH ×2 (08:21→16:34)
[2023-02-02] MEDS: IPRATROPIUM-ALBUTEROL 3 ML NEB INHALATION SCH ×4 (08:37→20:47)
--- NOTE | 2023-02-02 08:43 | XR ---
EXAMINATION TYPE: XR abdomen 2V DATE OF EXAM: 02/02/2023 COMPARISON: 02/01/2023 HISTORY: Follow-up ileus TECHNIQUE: One view abdominal series FINDINGS: The osseous structures are intact. The bowel gas pattern is nonspecific. NG tube is seen and there a re surgical tray in the abdomen. Postsurgical change involving the vertebral column. Persistent di lated small bowel loops. A catheter overlying the pelvis is noted. IMPRESSION: Numerous dilated bowel loops are stable in appearance for a bowel obstruction or ileus.
--- NOTE | 2023-02-02 08:44 | P.PN ---
Subjective Principal diagnosis: Ischemic colitis The patient is a 67-year-old female essentially admitted for ischemic colitis. The patient had code after having recovery last week. The patient is now extubated and seems more hemodynamically stable. Still copious amounts of gastric fluid is being extracted. Continue disorientation Objective - Vital Signs Vital signs: Vital Signs Temp 98 F 02/02/23 04:30 Pulse 106 H 02/02/23 07:00 Resp 12 02/02/23 07:00 BP 157/81 02/02/23 07:00 Pulse Ox 97 02/02/23 08:34 FiO2 40 01/30/23 12:00 Intake & Output 02/01/23 02/02/23 02/02/23 18:59 06:59 18:59 Intake Total 3679.1 1812.9 154.8 Output Total 2740 2310 125 Balance 939.1 -497.1 29.8 Weight 77.6 kg Intake: IV 1560 1421 111 ACETAMINOPHEN IV (For NPO 200 100 ) 1,000 mg In Empty Bag 1 bag @ 400 mls/hr IVPB Q6H [facility] Rx#:[id number] Anidulafungin 100 mg In 100 Sodium Chloride 0.9% 100 ml @ 84 mls/hr IVPB DAILY @1500 [facility] Rx#:[id number] Cefepime 2 gm In Sodium 100 100 Chloride 0.9% 100 ml @ 25 mls/hr IVPB Q12HR [facility] Rx #:[id number] Mvi, Adult No.4 with Vit 610 671 61 K 10 ml Trace (Conc-1Ml/ Dose) 1 ml Sodium Acetate 34 meq Potassium Chloride 20 meq Calcium Gluconate 1 gm Magnesium Sulfate gm 0.5 gm In Amino Acid 4.25%-D10w 1, 000 ml @ 61 mls/hr IV .BY DURATION [facility] Rx#: [id number] Sodium Chloride 0.9% 1, 550 550 50 000 ml @ 50 mls/hr IV . Q20H [facility] Rx#:[id number] Intake, IV Titration 2059.1 391.9 43.8 Amount Clevidipine Butyrate 25 127.0 191.9 43.8 mg In Empty Bag 1 bag @ 1 MG/HR 2 mls/hr IV .Q24H [facility] Rx#:[id number] Mvi, Adult No.4 with Vit 61 K 10 ml Trace (Conc-1Ml/ Dose) 1 ml Sodium Acetate 34 meq Potassium Chloride 40 meq Calcium Gluconate 1 gm Magnesium Sulfate gm 0.5 gm In Amino Acid 4.25%-D10w 1, 000 ml @ 61 mls/hr IV .BY DURATION [facility] Rx#: [id number] Potassium Chloride 10 meq 200 In Water For Injection 1 100ml.bag @ 100 mls/hr IVPB Q1H [facility] Rx#: [id number] Potassium Chloride 10 meq 100 100 In Water For Injection 1 100ml.bag @ 100 mls/hr IVPB Q1H [facility] Rx#: [id number] Sodium Acetate 34 meq 921.1 Potassium Chloride 40 meq Calcium Gluconate 1 gm Magnesium Sulfate gm 0.5 gm In Amino Acid 4.25%- D10w 1,000 ml @ 61 mls/hr IV .BY DURATION [facility] Rx#: [id number] Sodium Chloride 0.9% 1, 200 000 ml @ 50 mls/hr IV . Q20H [facility] Rx#:[id number] Sodium Phosphate 15 mmol 250 In Dextrose 5% in Water 250 ml @ 127.5 mls/hr IVPB ONCE ONE Rx#: [id number] metroNIDAZOLE-NS PMX 500 200 100 mg In Saline 1 100ml.bag @ 100 mls/hr IVPB Q8HR [facility] Rx#:[id number] TPN/PPN 60 Mvi, Adult No.4 with Vit 60 K 10 ml Trace (Conc-1Ml/ Dose) 1 ml Sodium Acetate 34 meq Potassium Chloride 20 meq Calcium Gluconate 1 gm Magnesium Sulfate gm 0.5 gm In Amino Acid 4.25%-D10w 1, 000 ml @ 61 mls/hr IV .BY DURATION [facility] Rx#: [id number] Output: Gastric Drainage 300 550 Drainage 0 10 Left Lower Abdomen 0 10 Urine 2415 1750 125 Stool 25 Other: Voiding Method Indwelling Catheter Indwelling Catheter ABP, PAP, CO, CI - Last Documented Arterial Blood Pressure 162/42 - Constitutional General appearance: Present: average body habitus - EENT Eyes: Absent: abnormal pupil - Neck Neck: Absent: lymphadenopathy - Respiratory Respiratory: bilateral: diminished - Cardiovascular Rhythm: regular Heart sounds: normal: S1, S2 Abnormal Heart Sounds: Absent: S3 Gallop - Gastrointestinal General gastrointestinal: Present: soft. Absent: tenderness - Integumentary Integumentary: Absent: cellulitis - Labs CBC & Chem 7: 02/02/23 07:37 05/19/23 07:37 Labs: Abnormal Lab Results - Last 24 Hours (Table) 02/01/23 02/01/23 02/01/23 Range/Units 05:46 11:59 18:12 WBC (3.8-10.6) k/uL RBC (3.80-5.40) m/uL Hgb (11.4-16.0) gm/dL Hct (34.0-46.0) % Plt Count (150-450) k/uL Neutrophils # (Manual) 27.20 H (1.3-7.7) k/uL Monocytes # (Manual) 1.60 H (0-1.0) k/uL Metamyelocytes # (Man) 0.64 H (0) k/uL Myelocytes # (Manual) 0.64 H (0) k/uL Potassium (3.5-5.1) mmol/L Chloride (98-107) mmol/L Carbon Dioxide (22-30) mmol/L BUN (7-17) mg/dL Glucose (74-99) mg/dL POC Glucose (mg/dL) 350 H 383 H (70-110) mg/dL Phosphorus (2.5-4.5) mg/dL Alkaline Phosphatase (38-126) U/L Albumin (3.5-5.0) g/dL 02/02/23 02/02/23 02/02/23 Range/Units 00:03 05:43 07:37 WBC (3.8-10.6) k/uL RBC (3.80-5.40) m/uL Hgb (11.4-16.0) gm/dL Hct (34.0-46.0) % Plt Count (150-450) k/uL Neutrophils # (Manual) (1.3-7.7) k/uL Monocytes # (Manual) (0-1.0) k/uL Metamyelocytes # (Man) (0) k/uL Myelocytes # (Manual) (0) k/uL Potassium 3.4 L (3.5-5.1) mmol/L Chloride 112 H (98-107) mmol/L Carbon Dioxide 18 L (22-30) mmol/L BUN 32 H (7-17) mg/dL Glucose 260 H (74-99) mg/dL POC Glucose (mg/dL) 310 H 252 H (70-110) mg/dL Phosphorus 2.4 L (2.5-4.5) mg/dL Alkaline Phosphatase 211 H (38-126) U/L Albumin 2.9 L (3.5-5.0) g/dL 02/02/23 Range/Units 07:37 WBC 24.5 H (3.8-10.6) k/uL RBC 3.54 L (3.80-5.40) m/uL Hgb 10.9 L (11.4-16.0) gm/dL Hct 33.8 L (34.0-46.0) % Plt Count 743 H (150-450) k/uL Neutrophils # (Manual) (1.3-7.7) k/uL Monocytes # (Manual) (0-1.0) k/uL Metamyelocytes # (Man) (0) k/uL Myelocytes # (Manual) (0) k/uL Potassium (3.5-5.1) mmol/L Chloride (98-107) mmol/L Carbon Dioxide (22-30) mmol/L BUN (7-17) mg/dL Glucose (74-99) mg/dL POC Glucose (mg/dL) (70-110) mg/dL Phosphorus (2.5-4.5) mg/dL Alkaline Phosphatase (38-126) U/L Albumin (3.5-5.0) g/dL Microbiology - Last 24 Hours (Table) 01/29/23 09:24 Gram Stain - Final [facility] Body Fluid Culture - Final 01/28/23 22:08 Gram Stain - Final Sputum Sputum Culture - Final Enterobacter aerogenes 01/28/23 15:10 Blood Culture - Preliminary Blood 01/27/23 14:00 Blood Culture - Preliminary Blood 01/27/23 14:11 Blood Culture - Preliminary Blood Assessment and Plan (1) Ischemic bowel disease Current Visit: Yes Status: Acute Code(s): K55.9 - VASCULAR DISORDER OF INTESTINE, UNSPECIFIED SNOMED Code(s): 37697127 (2) Ischemic colitis Current Visit: Yes Status: Acute Code(s): K55.9 - VASCULAR DISORDER OF INTESTINE, UNSPECIFIED SNOMED Code(s): 91405980 (3) COPD (chronic obstructive pulmonary disease) Current Visit: No Status: Acute Code(s): J44.9 - CHRONIC OBSTRUCTIVE PULMONA RY DISEASE, UNSPECIFIED SNOMED Code(s): 61386144 (4) History of below-knee amputation of right lower extremity Current Visit: No Status: Acute Code(s): Z89.511 - ACQUIRED ABSENCE OF RIGHT LEG BELOW KNEE SNOMED Code(s): 770731875126748 (5) Opioid dependence Current Visit: No Status: Acute Code(s): F11.20 - OPIOID DEPENDENCE, UNCOMPLICATED SNOMED Code(s): 21316584 (6) Type 2 diabetes mellitus Current Visit: No Status: Acute Code(s): E11.9 - TYPE 2 DIABETES MELLITUS WITHOUT COMPLICATIONS SNOMED Code(s): 97556836 Plan: Continue to follow during his ICU management. The patient is now extubated Prognosis is guarded. Check CBC and CMP in a.m. Appreciate multiple consultants input Anticipate slow recovery TPN Hemodynamically stable
[2023-02-02] MEDS ORDERED: MAGNESIUM SULFATE-D5W PMX 1 GM in DEXTROSE/WATER 1 100ML.BAG IVPB ONE (08:53)
[2023-02-02] MEDS: LORazepam 2 MG/ML INJ IV PRN ×2 (10:15→15:04)
[2023-02-02] MEDS: POTASSIUM CHLORIDE 20 MEQ in WATER FOR INJECTION 1 100ML.BAG IVPB SCH ×2 (10:23→12:08)
[2023-02-02] MEDS ORDERED: POTASSIUM PHOSPHATE 10 MMOL in SODIUM CHLORIDE 0.9% 250 ML IV SCH (11:00)
--- NOTE | 2023-02-02 11:23 | P.PN ---
Subjective Patient is seen in follow-up for acute kidney injury. Renal function back to baseline. Receiving TPN as well as normal saline. Potassium and phosphorus being replaced. Nonoliguric. Extubated 01/30/2023. On Cleviprex. Blood pressure controlled. Sitter at bedside. Vital signs are stable. General: Resting in bed. HEENT: NG tube noted. LUNGS: No audible rhonchi or wheezes. HEART: Rate and Rhythm are regular. ABDOMEN: Ileostomy noted. EXTREMITITES: No edema. Right BKA. Objective - Vital Signs Vital signs: Vital Signs Temp 98.3 F 02/02/23 08:00 Pulse 101 H 02/02/23 10:30 Resp 24 02/02/23 10:30 BP 138/70 02/02/23 10:30 Pulse Ox 96 02/02/23 10:30 FiO2 40 01/30/23 12:00 Intake & Output 02/01/23 02/02/23 02/02/23 18:59 06:59 18:59 Intake Total 3679.1 1812.9 197.800 Output Total 2740 2310 125 Balance 939.1 -497.1 72.800 Weight 77.6 kg Intake: IV 1560 1421 111 ACETAMINOPHEN IV (For NPO 200 100 ) 1,000 mg In Empty Bag 1 bag @ 400 mls/hr IVPB Q6H [facility] Rx#:[id number] Anidulafungin 100 mg In 100 Sodium Chloride 0.9% 100 ml @ 84 mls/hr IVPB DAILY @1500 [facility] Rx#:[id number] Cefepime 2 gm In Sodium 100 100 Chloride 0.9% 100 ml @ 25 mls/hr IVPB Q12HR [facility] Rx #:[id number] Mvi, Adult No.4 with Vit 610 671 61 K 10 ml Trace (Conc-1Ml/ Dose) 1 ml Sodium Acetate 34 meq Potassium Chloride 20 meq Calcium Gluconate 1 gm Magnesium Sulfate gm 0.5 gm In Amino Acid 4.25%-D10w 1, 000 ml @ 61 mls/hr IV .BY DURATION [facility] Rx#: [id number] Sodium Chloride 0.9% 1, 550 550 50 000 ml @ 50 mls/hr IV . Q20H [facility] Rx#:[id number] Intake, IV Titration 2059.1 391.9 86.800 Amount Clevidipine Butyrate 25 127.0 191.9 86.800 mg In Empty Bag 1 bag @ 1 MG/HR 2 mls/hr IV .Q24H [facility] Rx#:[id number] Mvi, Adult No.4 with Vit 61 K 10 ml Trace (Conc-1Ml/ Dose) 1 ml Sodium Acetate 34 meq Potassium Chloride 40 meq Calcium Gluconate 1 gm Magnesium Sulfate gm 0.5 gm In Amino Acid 4.25%-D10w 1, 000 ml @ 61 mls/hr IV .BY DURATION [facility] Rx#: [id number] Potassium Chloride 10 meq 200 In Water For Injection 1 100ml.bag @ 100 mls/hr IVPB Q1H [facility] Rx#: [id number] Potassium Chloride 10 meq 100 100 In Water For Injection 1 100ml.bag @ 100 mls/hr IVPB Q1H [facility] Rx#: [id number] Sodium Acetate 34 meq 921.1 Potassium Chloride 40 meq Calcium Gluconate 1 gm Magnesium Sulfate gm 0.5 gm In Amino Acid 4.25%- D10w 1,000 ml @ 61 mls/hr IV .BY DURATION [facility] Rx#: [id number] Sodium Chloride 0.9% 1, 200 000 ml @ 50 mls/hr IV . Q20H [facility] Rx#:[id number] Sodium Phosphate 15 mmol 250 In Dextrose 5% in Water 250 ml @ 127.5 mls/hr IVPB ONCE ONE Rx#: [id number] metroNIDAZOLE-NS PMX 500 200 100 mg In Saline 1 100ml.bag @ 100 mls/hr IVPB Q8HR [facility] Rx#:[id number] TPN/PPN 60 Mvi, Adult No.4 with Vit 60 K 10 ml Trace (Conc-1Ml/ Dose) 1 ml Sodium Acetate 34 meq Potassium Chloride 20 meq Calcium Gluconate 1 gm Magnesium Sulfate gm 0.5 gm In Amino Acid 4.25%-D10w 1, 000 ml @ 61 mls/hr IV .BY DURATION [facility] Rx#: [id number] Output: Gastric Drainage 300 550 Drainage 0 10 Left Lower Abdomen 0 10 Urine 2415 1750 125 Stool 25 Other: Voiding Method Indwelling Catheter Indwelling Catheter ABP, PAP, CO, CI - Last Documented Arterial Blood Pressure 162/42 - Labs CBC & Chem 7: 02/02/23 07:37 02/02/23 07:37 Labs: Abnormal Lab Results - Last 24 Hours (Table) 02/01/23 02/01/23 02/02/23 Range/Units 11:59 18:12 00:03 WBC (3.8-10.6) k/uL RBC (3.80-5.40) m/uL Hgb (11.4-16.0) gm/dL Hct (34.0-46.0) % Plt Count (150-450) k/uL Potassium (3.5-5.1) mmol/L Chloride (98-107) mmol/L Carbon Dioxide (22-30) mmol/L BUN (7-17) mg/dL Glucose (74-99) mg/dL POC Glucose (mg/dL) 350 H 383 H 310 H (70-110) mg/dL Phosphorus (2.5-4.5) mg/dL Alkaline Phosphatase (38-126) U/L Albumin (3.5-5.0) g/dL 02/02/23 02/02/23 02/02/23 Range/Units 05:43 07:37 07:37 WBC 24.5 H (3.8-10.6) k/uL RBC 3.54 L (3.80-5.40) m/uL Hgb 10.9 L (11.4-16.0) gm/dL Hct 33.8 L (34.0-46.0) % Plt Count 743 H (150-450) k/uL Potassium 3.4 L (3.5-5.1) mmol/L Chloride 112 H (98-107) mmol/L Carbon Dioxide 18 L (22-30) mmol/L BUN 32 H (7-17) mg/dL Glucose 260 H (74-99) mg/dL POC Glucose (mg/dL) 252 H (70-110) mg/dL Phosphorus 2.4 L (2.5-4.5) mg/dL Alkaline Phosphatase 211 H (38-126) U/L Albumin 2.9 L (3.5-5.0) g/dL Microbiology - Last 24 Hours (Table) 01/28/23 15:10 Blood Culture - Preliminary Blood 01/27/23 14:11 Blood Culture - Final Blood 01/27/23 14:00 Blood Culture - Final Blood 01/29/23 09:24 Gram Stain - Final [facility] Body Fluid Culture - Final 01/28/23 22:08 Gram Stain - Final Sputum Sputum Culture - Final Enterobacter aerogenes Assessment and Plan Plan: Assessment: 1. Acute kidney injury secondary to ATN secondary to septic shock and cardiac arrest. Resolved. Nonoliguric. No hydronephrosis noted on CAT scan. 2. Metabolic acidosis secondary to acute kidney injury and IV fluids. Status post bicarb drip. 3. Ischemic colitis with necrosis of large intestine status post exploratory laparotomy with total abdominal colectomy and end ileostomy. 4. Status post PEA arrest 01/28/2023. 5. Septic shock secondary to ischemic bowel. Off vasopressors. 6. Hypokalemia from poor intake. 7. Hypophosphatemia from poor intake. Plan: Maintain TPN and normal saline. Potassium and phosphorus being replaced. Continue to monitor renal function and urine output. Avoid nephrotoxins. Add po bicarb. Increase acetate in TPN - housekeeping cleaner following.
[2023-02-02 11:49] LABS: Glucose,Whole Blood 277 mg/dL (70-110)
[2023-02-02] MEDS: SODIUM BICARBONATE TAB 650 MG TAB PO SCH ×2 (12:08→20:54)
--- NOTE | 2023-02-02 12:44 | P.PN ---
Subjective Progress Note Date: 02/02/23 Principal diagnosis: Abdominal sepsis and ileus 67-year-old female patient is being seen in follow-up on 01/22/2023. A complicated case of abdominal distention, stooling infection requiring surgical intervention along with multiple medical problems and comorbidities P she initi ally presented to us with abdominal pain and she has not had a bowel movement for more than a week. She had significant abdominal distention. She was taken to the operating room and the patient underwent laparotomy, lysis of adhesions, total colectomy, ileostomy and the patient is currently postop day #3. She has been intubated and kept on a mechanical ventilator since. For now, the patient is still on a mechanical ventilator. She is a propofol which is running at 35 mcg/kg/m and she is adequately sedated and symptoms mechanical ventilator. She is on assist-control mode of mechanical ventilation at the rate of 24 with a rate of 24, tidal volume of 400, FiO2 of 30% and a PEEP of 5. Chest x-ray shows cardiomegaly. Some limited infiltrates in the left lung base and the right lower lobe lateral segment. Orotracheal tube is in a good location. The patient also has a triple-lumen catheter in the left subclavian. NG tube is also in good location. For now, the output from the NG tube is minimal. Her IV fluids are running at a rate of 75 mL an hour and the fluid is in the form of a bicarb infusion. She is on no pressors at this point in time in the urine output is in order of 5200 mL an hour. In terms of her electrolytes, the patient's sodium level has been dropping and it's down to 129. BUN is at 40 with a creatinine of 3.47 and a potassium level is at 4.2. Her serum bicarb is improved. She was as low as 13 and she is currently up to 20. Nevertheless, she is developing an acute kidney injury. Her creatinine at time of admission was 1.8 from a normal baseline. She has developed that he worsening of renal function the creatinine is up to 3.47. CAT scan of the abdomen and the pelvis that was done on 01/19/2023 showed no evidence of any hydronephrosis he had she had pancolonic distention with cecum dilatation which was up to 9.4 cm in size. At the same time, her white cell count has dropped down to 17.9 from as high as 25. Hemoglobin is stable at 9.2 and a platelet count is at 159. In terms of cultures, sputum culture has been negative. Abdominal wound cultures were taken and that is also still pending for now and the patient is covered with IV Zosyn. She is afebrile. She is having episodes of low-grade fever. She is on IV Tylenol. She remains hemodynamically stable. The patient remains nothing by mouth for now. The patient has a YASMINE drain located in the left lower quadrant and the output is in order of 200 mL over the past 8 hours. The output is serosanguineous. Her lactic acid level dropped from 7.3 down to 1.8. Blood sugars under adequate control and the patient is taking NovoLog insulin sliding scale coverage. She takes Lantus 55 units twice a day at home. She is also on a combination of Seroquel and Topamax and Prozac at home. On 01/26/2023, the patient is postop day #7. She remains on oxygen at 2 L/m nasal cannula. She is still on TPN for nutritional support. At the same time the patient was given soft and chopped diet with one-to-one supervision. She is able to swallow. She is not meeting her requirements. NG tube was removed yesterday. Ileostomy is functional and there is positive output. She has no s pecific complaints. She is communicating at this point in time. She is hemodynamically stable. She is off the Cleviprex drip. She is on insulin signs good coverage and she is also on IV Zosyn.Blood work today shows a WD skeletal 11.3, hemoglobin 9.3 and a platelet count of 224. Sodium is at 132 with a potassium level of 3.2, BUN is 39 and the creatinine is 1.47. Sugar is 238. The patient is on Levemir insulin 30 units twice a day and she also taken a slight scale coverage. IV fluids and the form of normal saline at rate of 20 mL an hour. She is on Lovenox 30 mg subcu for DVT prophylaxis. The output from the YASMINE drain is serosanguineous and in the order of 70 mL overnight. On 01/27/2023, the patient is postoperative day #8. She is on room air oxygen for now. Doing well. TPN was discontinued and the patient is currently tolerating diet and her ileostomy is functional. No other new complaints otherwise for now. The YASMINE drain is still in place and output is serosanguineous. Hemodynamically stable. No new labs are available from today. Communicating although she is overall weak and somewhat lethargic. Remains on IV Zosyn. Remains on Lovenox for DVT prophylaxis. Remains on Levemir insulin 30 units twice a day and the NovoLog signs good coverage. 01/28/2023, the patient is postop day #9. She is awake and alert and communicating. She was taken off the TPN and currently she is tolerating oral intake. Her ileostomy is functional. YASMINE drains are in place and output is serosanguineous. She is overall weak and she is showing some progress on a daily basis. White cell count was 22 with a hemoglobin 10.2 and a platelet count of 366. BUN is 49 with a creatinine of 2.07 and sodium levels of 1:30. Potassium levels at 4.9. No other new complaints otherwise for now. She is hemodynamically stable. . Dilaudid for pain control. Levemir insulin 30 units twice a day plus a sliding scale coverage. Patient was reevaluated today on 01/29/2023, patient developed an episode of arrest yesterday, she had a 5 minute pulseless electrical activity, patient had to be intubated and mechanically ventilated. Patient had a cardiac arrest while undergoing a computed tomography scan. 3 ML's of brown fluid removed from the nasogastric tube patient was found to have ileus on the CT of the abdomen and pelvis. Received so far for fluids of IV fluids her down time was 3-5 minutes, her ventilator settings today are assist control rate of 24 pressure support of mechanical ventilation with PI of 22, inspiratory time is 0.9 FiO2 is 50%. And PEEP of 5. ABG showed a pO2 of 109 pCO2 of 30 pH of 7.38 hence FiO2 was cut down to 45%. Patient is receiving bicarb drip, she is supposed to have a PICC line placed today. Patient is status post colectomy for ischemic bowel and she was extubated at one point on 02/02. Yesterday she developed a sudden downhill course. She continues to have a functional colostomy, and she has a YASMINE drain in place. Patient remains on daptomycin and Zosyn. She is on propofol at 55 mcg/kg/m she is off norepinephrine today. And she is receiving mostly fluids. WBC count today is 20.8 hemoglobin is 8.4, electrolytes are normal BUN is 46 creatinine 2.14. Chest x-ray is suspicious for a right sideddisease/infiltrate/aspiration pneumonia although the possibility of interstitial edema is not entirely ruled out. But felt to be less likely. Endotracheal tube seems to be sitting up high in the trachea and it will be advanced to COPD Patient was reevaluated today on 01/30/2023, remains in the ICU, intubated and mechanically ventilated. Patient is on pressure control mode of mechanical ventilation with a rate of 24 PI of 22 inspiratory time of 0.9 FiO2 45% and PEEP of 5 ABG showed a pO2 of 106 pCO2 31 pH of 7.45 hence I recommended cutting down the FiO2 to 40%. Patient remains on norepinephrine at 0.08 propofol at 55 mcg/kg/m, bicarb at 75 mL per hour. Considering her bicarb is better today, I'm recommending we stop the bicarb drip. Patient seems to have functional ileostomy nonetheless she continues to have significant output via nasogastric tube. She had 700 mL out on the last shift. She is still quite sedated, and my plan today is to consider a weaning trial if possible off sedation or at least on a lower dose of propofol. Continues to have leukocytosis with WBC count 24.3, hemoglobin is 7.5. Basic metabolic profile is normal bicarb is 21 BUN is 37 creatinine 1.80, steadily improving over the last 2 days. Patient remains on antibiotics in the form of Zosyn, and axis, and daptomycin. This is mostly for ongoing abdominal sepsis. Patient seems to have adequate output in the ileostomy. Chest x-ray is showing improvement in her right lower lobe pneumonia. Sputum is positive for gram-negative bacilli final identification is pending Reevaluated today on 01/31/2023, patient remains in the ICU, she was extubated yesterday, tolerated the extubation well. She is now on 2 L nasal cannula, she is on clevidipine at 3 mg per hour for elevated blood pressure the patient cannot take much orally. Continues to have nasogastric tube in place, still having significant amount of suctioning from the nasogastric tube. She has ostomy that seems to be functional patient is on TPN at 50 mL per hour still on Zosyn and daptomycin she is wheezing, and her chest x-ray showed bilateral infiltrates right more so than left, I suppose the patient had aspiration pneumonia , on proper antibiotics. Renal profile is normal bicarb is 21 Reevaluated today on 02/01/2023, patient remains extubated remains in the ICU, marginal clinical status. Patient continues to have nasogastric tube in place, continues to have ileus based on her flat plate of the abdomen, blood pressure remains high and she is requiring clevidipine at 6 mg per hour. Patient is receiving TPN since we we cannot start enteral feeding mostly because of an ileus. IV fluids remains at KVO patient remains on multiple antibiotics including Flagyl, cefepime and axis. For her blood pressure and recommending clonidine patch him also recommending and Norvasc. Patient is a bit agitated today but she comes down after I talked to her. Continues to have leukocytosis with WBC count of 52 hemoglobin is 10.2, and I believe her leukocytosis is se condary to her abdominal sepsis/ileus and secondary to aspiration pneumonia. Basic metabolic profile is normal and renal profile is normal Reevaluated today on 02/02/2023, remains in the ICU, remains on clevidipine drip at 6 mg per hour. Remains on TPN for her ileus. Continues to have findings of ileus in spite of functioning ostomy. Continues to have output via nasogastric tube also consistent with ileus. Patient was placed on clonidine and Norvasc and hydralazine for her high blood pressure hoping to get rid of clevidipine. Patient continues to have good urine output her pulmonary status is marginal patient is on 2 L nasal cannula, O2 saturations 95%. Patient denies any specific symptoms is relatively asymptomatic intermittently gets agitated. WBC count is coming down to 24.5 hemoglobin is 10.9 electrolytes are normal renal profile is normal liver profile is relatively normal. Blood sugar is 277 chest x-ray continues to show evidence of right sided pneumonia consistent with aspiration pneumonia, abdominal film is showing numerous dilated bowel loops consistent with previous Objective - Vital Signs Vital signs: Vital Signs Temp 98.3 F 02/02/23 08:00 Pulse 106 H 02/02/23 12:13 Resp 27 H 02/02/23 11:30 BP 130/67 02/02/23 11:30 Pulse Ox 95 05/19/23 11:30 FiO2 40 01/30/23 12:00 Intake & Output 02/01/23 02/02/23 02/02/23 18:59 06:59 18:59 Intake Total 3679.1 1812.9 222.900 Output Total 2740 2310 125 Balance 939.1 -497.1 97.900 Weight 77.6 kg Intake: IV 1560 1421 111 ACETAMINOPHEN IV (For NPO 200 100 ) 1,000 mg In Empty Bag 1 bag @ 400 mls/hr IVPB Q6H [facility] Rx#:[id number] Anidulafungin 100 mg In 100 Sodium Chloride 0.9% 100 ml @ 84 mls/hr IVPB DAILY @1500 [facility] Rx#:[id number] Cefepime 2 gm In Sodium 100 100 Chloride 0.9% 100 ml @ 25 mls/hr IVPB Q12HR [facility] Rx #:[id number] Mvi, Adult No.4 with Vit 610 671 61 K 10 ml Trace (Conc-1Ml/ Dose) 1 ml Sodium Acetate 34 meq Potassium Chloride 20 meq Calcium Gluconate 1 gm Magnesium Sulfate gm 0.5 gm In Amino Acid 4.25%-D10w 1, 000 ml @ 61 mls/hr IV .BY DURATION [facility] Rx#: [id number] Sodium Chloride 0.9% 1, 550 550 50 000 ml @ 50 mls/hr IV . Q20H [facility] Rx#:[id number] Intake, IV Titration 2059.1 391.9 111.900 Amount Clevidipine Butyrate 25 127.0 191.9 111.900 mg In Empty Bag 1 bag @ 1 MG/HR 2 mls/hr IV .Q24H [facility] Rx#:[id number] Mvi, Adult No.4 with Vit 61 K 10 ml Trace (Conc-1Ml/ Dose) 1 ml Sodium Acetate 34 meq Potassium Chloride 40 meq Calcium Gluconate 1 gm Magnesium Sulfate gm 0.5 gm In Amino Acid 4.25%-D10w 1, 000 ml @ 61 mls/hr IV .BY DURATION [facility] Rx#: [id number] Potassium Chloride 10 meq 200 In Water For Injection 1 100ml.bag @ 100 mls/hr IVPB Q1H [facility] Rx#: [id number] Potassium Chloride 10 meq 100 100 In Water For Injection 1 100ml.bag @ 100 mls/hr IVPB Q1H [facility] Rx#: [id number] Sodium Acetate 34 meq 921.1 Potassium Chloride 40 meq Calcium Gluconate 1 gm Magnesium Sulfate gm 0.5 gm In Amino Acid 4.25%- D10w 1,000 ml @ 61 mls/hr IV .BY DURATION [facility] Rx#: [id number] Sodium Chloride 0.9% 1, 200 000 ml @ 50 mls/hr IV . Q20H [facility] Rx#:[id number] Sodium Phosphate 15 mmol 250 In Dextrose 5% in Water 250 ml @ 127.5 mls/hr IVPB ONCE ONE Rx#: [id number] metroNIDAZOLE-NS PMX 500 200 100 mg In Saline 1 100ml.bag @ 100 mls/hr IVPB Q8HR [facility] Rx#:[id number] TPN/PPN 60 Mvi, Adult No.4 with Vit 60 K 10 ml Trace (Conc-1Ml/ Dose) 1 ml Sodium Acetate 34 meq Potassium Chloride 20 meq Calcium Gluconate 1 gm Magnesium Sulfate gm 0.5 gm In Amino Acid 4.25%-D10w 1, 000 ml @ 61 mls/hr IV .BY DURATION [facility] Rx#: [id number] Output: Gastric Drainage 300 550 Drainage 0 10 Left Lower Abdomen 0 10 Urine 2415 1750 125 Stool 25 Other: Voiding Method Indwelling Catheter Indwelling Catheter ABP, PAP, CO, CI - Last Documented Arterial Blood Pressure 162/42 - Exam Physical Exam: Revealed 67-year-old female, on 2 L nasal cannula, in no distress. Head: Atraumatic, normocephalic. HEENT:[Neck is supple.] [No neck masses.] [No thyromegaly.] [No JVD.] EOMI, nonicteric. Nasogastric tube is intact remains in place Chest: Symmetrical chest expansion, fine crackles at the bases Cardiac Exam: [Normal S1 and S2, no S3 gallop, no murmur.] Abdomen: [Soft, nontender, evidence of ileostomy noted. And YASMINE drains noted. Bowel sounds are hypoactive. No abdominal distention is appreciated. Ostomy seems to be functional. Extremities: [No clubbing, no edema, no cyanosis.] Right above-knee amputation noted Neurological alert and oriented 3 no gross focal deficits Psychiatric: Normal mood, affect and normal mental status examination Skin: No rashes. - Labs CBC & Chem 7: 05/19/23 07:37 02/02/23 07:37 Labs: Abnormal Lab Results - Last 24 Hours (Table) 02/01/23 02/02/23 02/02/23 Range/Units 18:12 00:03 05:43 WBC (3.8-10.6) k/uL RBC (3.80-5.40) m/uL Hgb (11.4-16.0) gm/dL Hct (34.0-46.0) % Plt Count (150-450) k/uL Potassium (3.5-5.1) mmol/L Chloride (98-107) mmol/L Carbon Dioxide (22-30) mmol/L BUN (7-17) mg/dL Glucose (74-99) mg/dL POC Glucose (mg/dL) 383 H 310 H 252 H (70-110) mg/dL Phosphorus (2.5-4.5) mg/dL Alkaline Phosphatase (38-126) U/L Albumin (3.5-5.0) g/dL 02/02/23 02/02/23 02/02/23 Range/Units 07:37 07:37 11:47 WBC 24.5 H (3.8-10.6) k/uL RBC 3.54 L (3.80-5.40) m/uL Hgb 10.9 L (11.4-16.0) gm/dL Hct 33.8 L (34.0-46.0) % Plt Count 743 H (150-450) k/uL Potassium 3.4 L (3.5-5.1) mmol/L Chloride 112 H (98-107) mmol/L Carbon Dioxide 18 L (22-30) mmol/L BUN 32 H (7-17) mg/dL Glucose 260 H (74-99) mg/dL POC Glucose (mg/dL) 277 H (70-110) mg/dL Phosphorus 2.4 L (2.5-4.5) mg/dL Alkaline Phosphatase 211 H (38-126) U/L Albumin 2.9 L (3.5-5.0) g/dL Microbiology - Last 24 Hours (Table) 01/28/23 15:10 Blood Culture - Preliminary Blood 01/27/23 14:11 Blood Culture - Final Blood 01/27/23 14:00 Blood Culture - Final Blood 01/29/23 09:24 Gram Stain - Final Diaz-Benítez Body Fluid Culture - Final 01/28/23 22:08 Gram Stain - Final Sputum Sputum Culture - Final Enterobacter aerogenes Assessment and Plan Assessment: Impression: Acute hypoxic respiratory failure secondary to cardiac arrest requiring intubat ion and mechanical ventilation Cardiac arrest requiring intubation and mechanical ventilation, patient had a PEA cardiac arrest, down time of 5 minutes. In-hospital cardiac arrest. This occurred on 01/28/2023 Status post exploratory laparotomy, lysis of adhesions, total colectomy, ileostomy, abdominal washout, placement of YASMINE drains, placement of wound VAC postoperative day # #13 patient was extubated after this surgery on 01/23/2023 and has been off mechanical ventilation until 01/28 requiring reintubation because of PEA. Patient was extubated again on 01/30/2023. Remains extubated so far. Acute kidney injury improving this is mostly a picture of acute tubular necrosis. 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 Continue to monitor in the ICU for today. As long as the patient is requiring clevidipine. Continue oxygen at 2 L/m titrate accordingly Continue bronchodilators and Solu-Medrol. We'll transition to oral prednisone Continue antibiotics/antifungal , Eraxis, cefepime, Flagyl, this will adequately collar for abdominal sepsis and for the Enterobacter regimens pneumonia. Continue GI and DVT prophylaxis Continue insulin as per scale We'll continue to follow Time with Patient: Less than 30
[2023-02-02] MEDS ORDERED: predniSONE 20 MG TAB PO SCH (12:45)
[2023-02-02] MEDS: POTASSIUM PHOSPHATE 10 MMOL in SODIUM CHLORIDE 0.9% 250 ML IV SCH ×2 (13:43→16:34)
--- NOTE | 2023-02-02 14:36 | P.PN ---
Progress Note - Text Progress Note Date: 02/02/23 Interval History: Patient was seen resting in bed and was directable and agreeable to speak with functional tester typewriters in her room with her present. Currently, the patient reports a desire to be "not here anymore." When asked about any suicidal thoughts, the patient denies any suicidal ideation but rather just thoughts of not wanting to be in this world. She does report that she continues to feel very sad and upset that she has had numerous family members . She is otherwise reporting overall improvement in mood and this is noticed by her as well. She makes numerous jokes with this provider. She is more future and goal oriented today. She reports that sleep has been intermittent. Mental Status Exam: General Appearance: Patient appears to be stated age is alert, pleasant, and cooperative. Patient appears to have improved hygiene and grooming wearing hospital gown with intermittent eye contact. Right lower extremity amputation. NG tube in place. Behavior: Patient appears to be displaying normal psychomotor activity and lying upright in bed. Speech: Patient's speech is nonspontaneous and low in volume. Mood/Affect: Patient reports their mood is "sad", affect is incongruent and appears to be more bright and euthymic today. Suicidality/Homicidality: Patient reports no suicidal or homicidal ideation. Perceptions: No reported hallucinations. Though content/process: Much more linear and logical in conversation. Memory and concentration: Grossly intact for the purposes of this session. Judgment and insight: Fair Vital Signs Temp 97.9 F 02/02/23 12:00 Pulse 106 H 02/02/23 14:30 Resp 28 H 02/02/23 14:30 BP 149/69 02/02/23 14:30 Pulse Ox 95 02/02/23 14:00 FiO2 40 01/30/23 12:00 Intake & Output 02/01/23 02/02/23 02/02/23 18:59 06:59 18:59 Intake Total 3679.1 1812.9 1772.133 Output Total 2740 2310 840 Balance 939.1 -497.1 932.133 Weight 77.6 kg 77.6 kg Intake: IV 1560 1421 111 ACETAMINOPHEN IV (For NPO 200 100 ) 1,000 mg In Empty Bag 1 bag @ 400 mls/hr IVPB Q6H [facility] Rx#:[id number] Anidulafungin 100 mg In 100 Sodium Chloride 0.9% 100 ml @ 84 mls/hr IVPB DAILY @1500 [facility] Rx#:[id number] Cefepime 2 gm In Sodium 100 100 Chloride 0.9% 100 ml @ 25 mls/hr IVPB Q12HR [facility] Rx #:[id number] Mvi, Adult No.4 with Vit 610 671 61 K 10 ml Trace (Conc-1Ml/ Dose) 1 ml Sodium Acetate 34 meq Potassium Chloride 20 meq Calcium Gluconate 1 gm Magnesium Sulfate gm 0.5 gm In Amino Acid 4.25%-D10w 1, 000 ml @ 61 mls/hr IV .BY DURATION [facility] Rx#: [id number] Sodium Chloride 0.9% 1, 550 550 50 000 ml @ 50 mls/hr IV . Q20H [facility] Rx#:[id number] Intake, IV Titration 2059.1 391.9 1661.133 Amount Cefepime 2 gm In Sodium 100 Chloride 0.9% 100 ml @ 25 mls/hr IVPB Q12HR [facility] Rx #:[id number] Clevidipine Butyrate 25 127.0 191.9 134.133 mg In Empty Bag 1 bag @ 1 MG/HR 2 mls/hr IV .Q24H [facility] Rx#:[id number] Magnesium Sulfate-D5w Pmx 100 1 gm In Dextrose/Water 1 100ml.bag @ 100 mls/hr IVPB ONCE ONE Rx#: [id number] Mvi, Adult No.4 with Vit 427 K 10 ml Trace (Conc-1Ml/ Dose) 1 ml Sodium Acetate 34 meq Potassium Chloride 20 meq Calcium Gluconate 1 gm Magnesium Sulfate gm 0.5 gm In Amino Acid 4.25%-D10w 1, 000 ml @ 61 mls/hr IV .BY DURATION [facility] Rx#: [id number] Mvi, Adult No.4 with Vit 61 K 10 ml Trace (Conc-1Ml/ Dose) 1 ml Sodium Acetate 34 meq Potassium Chloride 40 meq Calcium Gluconate 1 gm Magnesium Sulfate gm 0.5 gm In Amino Acid 4.25%-D10w 1, 000 ml @ 61 mls/hr IV .BY DURATION [facility] Rx#: [id number] Potassium Chloride 10 meq 200 In Water For Injection 1 100ml.bag @ 100 mls/hr IVPB Q1H [facility] Rx#: [id number] Potassium Chloride 10 meq 100 100 200 In Water For Injection 1 100ml.bag @ 100 mls/hr IVPB Q1H [facility] Rx#: [id number] Potassium Phosphate 10 250 mmol In Sodium Chloride 0 .9% 250 ml @ 125 mls/hr IV Q2H [facility] Rx#:[id number] Sodium Acetate 34 meq 921.1 Potassium Chloride 40 meq Calcium Gluconate 1 gm Magnesium Sulfate gm 0.5 gm In Amino Acid 4.25%- D10w 1,000 ml @ 61 mls/hr IV .BY DURATION [facility] Rx#: [id number] Sodium Chloride 0.9% 1, 200 350 000 ml @ 50 mls/hr IV . Q20H [facility] Rx#:[id number] Sodium Phosphate 15 mmol 250 In Dextrose 5% in Water 250 ml @ 127.5 mls/hr IVPB ONCE ONE Rx#: [id number] metroNIDAZOLE-NS PMX 500 200 100 100 mg In Saline 1 100ml.bag @ 100 mls/hr IVPB Q8HR [facility] Rx#:[id number] TPN/PPN 60 Mvi, Adult No.4 with Vit 60 K 10 ml Trace (Conc-1Ml/ Dose) 1 ml Sodium Acetate 34 meq Potassium Chloride 20 meq Calcium Gluconate 1 gm Magnesium Sulfate gm 0.5 gm In Amino Acid 4.25%-D10w 1, 000 ml @ 61 mls/hr IV .BY DURATION [facility] Rx#: [id number] Output: Gastric Drainage 300 550 Drainage 0 10 Left Lower Abdomen 0 10 Urine 2415 1750 840 Stool 25 Other: Voiding Method Indwelling Catheter Indwelling Catheter ABP, PAP, CO, CI - Last Documented Arterial Blood Pressure 162/42 Laboratory Results - Last 24 Hours 02/01/23 02/01/23 02/02/23 16:37 18:12 00:03 WBC RBC Hgb Hct MCV MCH MCHC RDW Plt Count MPV Hypochromasia Sodium Potassium 3.7 Chloride Carbon Dioxide Anion Gap BUN Creatinine Est GFR (CKD-EPI)AfAm Est GFR (CKD-EPI)NonAf Glucose POC Glucose (mg/dL) 383 H 310 H POC Glu Transport Conductor ID Faulkner, Shannan PhamKaleigh null Calcium Phosphorus Magnesium Total Bilirubin AST ALT Alkaline Phosphatase Total Protein Albumin 02/02/23 02/02/23 02/02/23 05:43 07:37 07:37 WBC 24.5 H RBC 3.54 L Hgb 10.9 L Hct 33.8 L MCV 95.4 MCH 30.8 MCHC 32.3 RDW 14.7 Plt Count 743 H MPV 6.8 Hypochromasia Marked Sodium 143 Potassium 3.4 L Chloride 112 H Carbon Dioxide 18 L Anion Gap 13 BUN 32 H Creatinine 0.81 Est GFR (CKD-EPI)AfAm 88 Est GFR (CKD-EPI)NonAf 76 Glucose 260 H POC Glucose (mg/dL) 252 H POC Glu Transport Conductor ID Loretta Velázquez Calcium 8.4 Phosphorus 2.4 L Magnesium 1.7 Total Bilirubin 0.5 AST 24 ALT 22 Alkaline Phosphatase 211 H Total Protein 6.6 Albumin 2.9 L 02/02/23 11:47 WBC RBC Hgb Hct MCV MCH MCHC RDW Plt Count MPV Hypochromasia Sodium Potassium Chloride Carbon Dioxide Anion Gap BUN Creatinine Est GFR (CKD-EPI)AfAm Est GFR (CKD-EPI)NonAf Glucose POC Glucose (mg/dL) 277 H POC Glu Transport Conductor ID Maria Luisa Hernández Calcium Phosphorus Magnesium Total Bilirubin AST ALT Alkaline Phosphatase Total Protein Albumin Assessment Depressive disorder secondary to general medical condition Acute abdomen with ischemic bowel Morbid obesity Acute renal failure due to dehydration COPD Diabetes type 2 Suspected aspiration pneumonia Plan: -At this time patient DOES NOT meet criteria for inpatient psychiatric admission. Patient has numerous medical conditions that are exclusionary criteria for inpatient psychiatric admission. -Delirium precautions recommended with patient including - avoiding use of narcotics and RIGGING UP WORKER sedatives, limit anticholinergic medications when possible, frequent re-orientation, minimize use of restraints, open window shades during the day and close them at night -Would recommend the following medication changes/additions: Continue Remeron 15 mg by NG tube at bedtime for depression/insomnia -Approximately 15 minutes were spent providing the patient was reflective listening and supportive psychotherapy. -Patient would benefit from spiritual care -Psychiatry will sign off at this time. Please call us with any questions or reconsult us if necessary.
--- NOTE | 2023-02-02 15:11 | P.PN ---
Subjective Progress Note Date: 02/02/23 Principal diagnosis: Ischemic colitis patient is a 67-year-old female with a past medical history significant for type 2 diabetes mellitus COPD morbid obesity did have a history of right below the knee amputation and left big toe amputation history of smoking presenting to the hospital with a 2-week history of abdominal pain , patient has been diagnosed with ischemic colitis in this patient with status post subtotal colectomy and ileostomy. Patient has been extubated as of 01/23/2023, patient did have a cardiac arrest 01/28/2023 evening requiring resuscitation and intubation On today's evaluation that is 02/02/2023, the patient continues to be afebrile, patient is breathing comfortably on room air, patient is hemodynamically stable not requiring any pressor support, patient denies having any chest pain shortness of breath occasional cough still have the NG no further vomiting has been reported Objective - Vital Signs Vital signs: Vital Signs Temp 98.3 F 02/02/23 08:00 Pulse 106 H 02/02/23 12:13 Resp 27 H 02/02/23 11:30 BP 130/67 02/02/23 11:30 Pulse Ox 95 02/02/23 11:30 FiO2 40 01/30/23 12:00 Intake & Output 02/01/23 02/02/23 02/02/23 18:59 06:59 18:59 Intake Total 3679.1 1812.9 222.900 Output Total 2740 2310 125 Balance 939.1 -497.1 97.900 Weight 77.6 kg Intake: IV 1560 1421 111 ACETAMINOPHEN IV (For NPO 200 100 ) 1,000 mg In Empty Bag 1 bag @ 400 mls/hr IVPB Q6H [facility] Rx#:[id number] Anidulafungin 100 mg In 100 Sodium Chloride 0.9% 100 ml @ 84 mls/hr IVPB DAILY @1500 [facility] Rx#:[id number] Cefepime 2 gm In Sodium 100 100 Chloride 0.9% 100 ml @ 25 mls/hr IVPB Q12HR [facility] Rx #:[id number] Mvi, Adult No.4 with Vit 610 671 61 K 10 ml Trace (Conc-1Ml/ Dose) 1 ml Sodium Acetate 34 meq Potassium Chloride 20 meq Calcium Gluconate 1 gm Magnesium Sulfate gm 0.5 gm In Amino Acid 4.25%-D10w 1, 000 ml @ 61 mls/hr IV .BY DURATION [facility] Rx#: [id number] Sodium Chloride 0.9% 1, 550 550 50 000 ml @ 50 mls/hr IV . Q20H [facility] Rx#:[id number] Intake, IV Titration 2059.1 391.9 111.900 Amount Clevidipine Butyrate 25 127.0 191.9 111.900 mg In Empty Bag 1 bag @ 1 MG/HR 2 mls/hr IV .Q24H [facility] Rx#:[id number] Mvi, Adult No.4 with Vit 61 K 10 ml Trace (Conc-1Ml/ Dose) 1 ml Sodium Acetate 34 meq Potassium Chloride 40 meq Calcium Gluconate 1 gm Magnesium Sulfate gm 0.5 gm In Amino Acid 4.25%-D10w 1, 000 ml @ 61 mls/hr IV .BY DURATION [facility] Rx#: [id number] Potassium Chloride 10 meq 200 In Water For Injection 1 100ml.bag @ 100 mls/hr IVPB Q1H [facility] Rx#: [id number] Potassium Chloride 10 meq 100 100 In Water For Injection 1 100ml.bag @ 100 mls/hr IVPB Q1H [facility] Rx#: [id number] Sodium Acetate 34 meq 921.1 Potassium Chloride 40 meq Calcium Gluconate 1 gm Magnesium Sulfate gm 0.5 gm In Amino Acid 4.25%- D10w 1,000 ml @ 61 mls/hr IV .BY DURATION [facility] Rx#: [id number] Sodium Chloride 0.9% 1, 200 000 ml @ 50 mls/hr IV . Q20H [facility] Rx#:[id number] Sodium Phosphate 15 mmol 250 In Dextrose 5% in Water 250 ml @ 127.5 mls/hr IVPB ONCE ONE Rx#: [id number] metroNIDAZOLE-NS PMX 500 200 100 mg In Saline 1 100ml.bag @ 100 mls/hr IVPB Q8HR [facility] Rx#:[id number] TPN/PPN 60 Mvi, Adult No.4 with Vit 60 K 10 ml Trace (Conc-1Ml/ Dose) 1 ml Sodium Acetate 34 meq Potassium Chloride 20 meq Calcium Gluconate 1 gm Magnesium Sulfate gm 0.5 gm In Amino Acid 4.25%-D10w 1, 000 ml @ 61 mls/hr IV .BY DURATION [facility] Rx#: [id number] Output: Gastric Drainage 300 550 Drainage 0 10 Left Lower Abdomen 0 10 Urine 2415 1750 125 Stool 25 Other: Voiding Method Indwelling Catheter Indwelling Catheter ABP, PAP, CO, CI - Last Documented Arterial Blood Pressure 162/42 - Exam GENERAL DESCRIPTION: An elderly female lying in bed in no distress RESPIRATORY SYSTEM: Unlabored breathing , decreased intensity of breath sounds bilaterally HEART: S1 S2 regular rate and rhythm , ABDOMEN: Soft , mild distention EXTREMITIES: Right BK stump incision is healed - Labs CBC & Chem 7: 02/02/23 07:37 02/02/23 07:37 Labs: Abnormal Lab Results - Last 24 Hours (Table) 02/01/23 02/02/23 02/02/23 Range/Units 18:12 00:03 05:43 WBC (3.8-10.6) k/uL RBC (3.80-5.40) m/uL Hgb (11.4-16.0) gm/dL Hct (34.0-46.0) % Plt Count (150-450) k/uL Potassium (3.5-5.1) mmol/L Chloride (98-107) mmol/L Carbon Dioxide (22-30) mmol/L BUN (7-17) mg/dL Glucose (74-99) mg/dL POC Glucose (mg/dL) 383 H 310 H 252 H (70-110) mg/dL Phosphorus (2.5-4.5) mg/dL Alkaline Phosphatase (38-126) U/L Albumin (3.5-5.0) g/dL 02/02/23 02/02/23 02/02/23 Range/Units 07:37 07:37 11:47 WBC 24.5 H (3.8-10.6) k/uL RBC 3.54 L (3.80-5.40) m/uL Hgb 10.9 L (11.4-16.0) gm/dL Hct 33.8 L (34.0-46.0) % Plt Count 743 H (150-450) k/uL Potassium 3.4 L (3.5-5.1) mmol/L Chloride 112 H (98-107) mmol/L Carbon Dioxide 18 L (22-30) mmol/L BUN 32 H (7-17) mg/dL Glucose 260 H (74-99) mg/dL POC Glucose (mg/dL) 277 H (70-110) mg/dL Phosphorus 2.4 L (2.5-4.5) mg/dL Alkaline Phosphatase 211 H (38-126) U/L Albumin 2.9 L (3.5-5.0) g/dL Microbiology - Last 24 Hours (Table) 01/28/23 15:10 Blood Culture - Preliminary Blood 01/27/23 14:11 Blood Culture - Final Blood 01/27/23 14:00 Blood Culture - Final Blood 01/29/23 09:24 Gram Stain - Final Diaz-Benítez Body Fluid Culture - Final 01/28/23 22:08 Gram Stain - Final Sputum Sputum Culture - Final Enterobacter aerogenes Assessment and Plan (1) Ischemic colitis Current Visit: Yes Status: Acute Code(s): K55.9 - VASCULAR DISORDER OF INTESTINE, UNSPECIFIED SNOMED Code(s): 59822624 (2) Sepsis Current Visit: No Status: Acute Code(s): A41.9 - SEPSIS, UNSPECIFIED ORGANISM SNOMED Code(s): 65039671 Plan: 1patient presented to hospital abdominal pain has been diagnosed with ischemic colitis in this patient infusion of septic shock with low-grade fever tachycardia elevated white count elevated lactic acid source being ischemic large bowel status post subtotal colectomy and end ileostomy , patient subsequently did have worsening of her respiratory status and cardiac arrest requiring reintubation and the patient was subsequently extubated 2-patient did have a new fever, and significant worsening of her clinical condition and concern for aspiration pneumonia, sputum is growing Enterobacter that is intermediate sensitivity to Zosyn patient to continue cefepime and Flagyl patient white count is trending down, family at the bedside questions were answered Time with Patient: Less than 30
[2023-02-02] MEDS: ANIDULAFUNGIN 100 MG in SODIUM CHLORIDE 0.9% 100 ML IVPB SCH (15:31)
[2023-02-02] MEDS: NOREPINEPHRINE 4 MG in SODIUM CHLORIDE 0.9% 250 ML IV SCH (15:32)
--- NOTE | 2023-02-02 15:57 | P.PN ---
Subjective Progress Note Date: 02/02/23 CHIEF COMPLAINT: Acute abdomen with ischemic bowel HISTORY OF PRESENT ILLNESS: Patient is status post exploratory laparotomy with total abdominal colectomy and end ileostomy, lysis of adhesions on 01/19/23. Patient remains in the ICU. Patient on 2 L nasal cannula. mildly tachycardic. Patient has a bedside sitter. She pulled her NG tube out during the night. It was replaced. She hasn't had 5 or 50 mL of bilious output through the NG tube. Ostomy is functioning with thick slow-moving stool. She is afebrile. Abdominal x-ray shows numerous dilated bowel loops stable in appearance for bowel obst ruction or ileus. WBC is down from 30-24.5 hgb10.9 potassium is 3.4 and being replaced creatinine 0.81. Unable to use Entereg was unable to put on NG tube. PHYSICAL EXAM: VITAL SIGNS: Reviewed GENERAL: Well-developed in no acute distress. HEENT: No sclera icterus. Moist buccal mucosa. Head is atraumatic, normocephalic. NECK: Supple without lymphadenopathy. CHEST: Non-labored respirations and equal bilateral excursions. CARDIOVASCULAR: Palpable 2+ radial pulses. ABDOMEN: Soft. Nondistended. Optifoam dressing clean and dry. YASMINE drain serous output. Stool present in ostomy MUSCULOSKELETAL: No clubbing or cyanosis. NEUROLOGIC: Patient intubated and sedated PSYCH: Appropriate affect. Alert and oriented to person, place and time. SKIN: Well perfused. Good skin turgor. ASSESSMENT: 1. Acute abdomen with ischemic bowel 2. Hypertensive heart disease with congestive heart failure 3. Morbid obesity due to excess calories, BMI over 34.8 4. Acute renal failure due to dehydration 5. History of lower extremity amputee 6. Chronic obstructive pulmonary disease 7. Diabetes type 2, insulin-dependent with diabetic nephropathy 8. Gastroesophageal reflux disease 9. Hypotension due to hypovolemia 10. Lactic acidosis 11. Septic shock due to bowel 12. Status post total abdominal colectomy 13. Cardiac arrest 14. Severe ileus 15. Suspected aspiration pneumonia PLAN: -Continue NG tube for decompression due to severe ileus -Continue daily abdominal x-rays for follow-up on ileus -Keep patient nothing by mouth -Continue to replace electrolytes -Continue TPN for nutrition support -Continue ICU management -Continue supportive care -Continue antibiotics per ID -GI prophylaxis Protonix and DVT prophylaxis Lovenox Physician Sign Builder note has been reviewed by physician. Signing provider agrees with the documented findings, assessment, and plan of care. Objective - Vital Signs Vital signs: Vital Signs Temp 98.3 F 02/02/23 08:00 Pulse 106 H 02/02/23 12:13 Resp 27 H 02/02/23 11:30 BP 130/67 02/02/23 11:30 Pulse Ox 95 02/02/23 11:30 FiO2 40 01/30/23 12:00 Intake & Output 02/01/23 02/02/23 02/02/23 18:59 06:59 18:59 Intake Total 3679.1 1812.9 222.900 Output Total 2740 2310 125 Balance 939.1 -497.1 97.900 Weight 77.6 kg Intake: IV 1560 1421 111 ACETAMINOPHEN IV (For NPO 200 100 ) 1,000 mg In Empty Bag 1 bag @ 400 mls/hr IVPB Q6H [facility] Rx#:[id number] Anidulafungin 100 mg In 100 Sodium Chloride 0.9% 100 ml @ 84 mls/hr IVPB DAILY @1500 [facility] Rx#:[id number] Cefepime 2 gm In Sodium 100 100 Chloride 0.9% 100 ml @ 25 mls/hr IVPB Q12HR [facility] Rx #:[id number] Mvi, Adult No.4 with Vit 610 671 61 K 10 ml Trace (Conc-1Ml/ Dose) 1 ml Sodium Acetate 34 meq Potassium Chloride 20 meq Calcium Gluconate 1 gm Magnesium Sulfate gm 0.5 gm In Amino Acid 4.25%-D10w 1, 000 ml @ 61 mls/hr IV .BY DURATION [facility] Rx#: [id number] Sodium Chloride 0.9% 1, 550 550 50 000 ml @ 50 mls/hr IV . Q20H [facility] Rx#:[id number] Intake, IV Titration 2059.1 391.9 111.900 Amount Clevidipine Butyrate 25 127.0 191.9 111.900 mg In Empty Bag 1 bag @ 1 MG/HR 2 mls/hr IV .Q24H [facility] Rx#:[id number] Mvi, Adult No.4 with Vit 61 K 10 ml Trace (Conc-1Ml/ Dose) 1 ml Sodium Acetate 34 meq Potassium Chloride 40 meq Calcium Gluconate 1 gm Magnesium Sulfate gm 0.5 gm In Amino Acid 4.25%-D10w 1, 000 ml @ 61 mls/hr IV .BY DURATION [facility] Rx#: [id number] Potassium Chloride 10 meq 200 In Water For Injection 1 100ml.bag @ 100 mls/hr IVPB Q1H [facility] Rx#: [id number] Potassium Chloride 10 meq 100 100 In Water For Injection 1 100ml.bag @ 100 mls/hr IVPB Q1H [facility] Rx#: [id number] Sodium Acetate 34 meq 921.1 Potassium Chloride 40 meq Calcium Gluconate 1 gm Magnesium Sulfate gm 0.5 gm In Amino Acid 4.25%- D10w 1,000 ml @ 61 mls/hr IV .BY DURATION [facility] Rx#: [id number] Sodium Chloride 0.9% 1, 200 000 ml @ 50 mls/hr IV . Q20H [facility] Rx#:[id number] Sodium Phosphate 15 mmol 250 In Dextrose 5% in Water 250 ml @ 127.5 mls/hr IVPB ONCE [facility] Rx#: [id number] metroNIDAZOLE-NS PMX 500 200 100 mg In Saline 1 100ml.bag @ 100 mls/hr IVPB Q8HR [facility] Rx#:[id number] TPN/PPN 60 Mvi, Adult No.4 with Vit 60 K 10 ml Trace (Conc-1Ml/ Dose) 1 ml Sodium Acetate 34 meq Potassium Chloride 20 meq Calcium Gluconate 1 gm Magnesium Sulfate gm 0.5 gm In Amino Acid 4.25%-D10w 1, 000 ml @ 61 mls/hr IV .BY DURATION [facility] Rx#: [id number] Output: Gastric Drainage 300 550 Drainage 0 10 Left Lower Abdomen 0 10 Urine 2415 1750 125 Stool 25 Other: Voiding Method Indwelling Catheter Indwelling Catheter ABP, PAP, CO, CI - Last Documented Arterial Blood Pressure 162/42 - Labs CBC & Chem 7: 02/02/23 07:37 02/02/23 07:37 Labs: Abnormal Lab Results - Last 24 Hours (Table) 02/01/23 02/02/23 02/02/23 Range/Units 18:12 00:03 05:43 WBC (3.8-10.6) k/uL RBC (3.80-5.40) m/uL Hgb (11.4-16.0) gm/dL Hct (34.0-46.0) % Plt Count (150-450) k/uL Potassium (3.5-5.1) mmol/L Chloride (98-107) mmol/L Carbon Dioxide (22-30) mmol/L BUN (7-17) mg/dL Glucose (74-99) mg/dL POC Glucose (mg/dL) 383 H 310 H 252 H (70-110) mg/dL Phosphorus (2.5-4.5) mg/dL Alkaline Phosphatase (38-126) U/L Albumin (3.5-5.0) g/dL 02/02/23 02/02/23 02/02/23 Range/Units 07:37 07:37 11:47 WBC 24.5 H (3.8-10.6) k/uL RBC 3.54 L (3.80-5.40) m/uL Hgb 10.9 L (11.4-16.0) gm/dL Hct 33.8 L (34.0-46.0) % Plt Count 743 H (150-450) k/uL Potassium 3.4 L (3.5-5.1) mmol/L Chloride 112 H (98-107) mmol/L Carbon Dioxide 18 L (22-30) mmol/L BUN 32 H (7-17) mg/dL Glucose 260 H (74-99) mg/dL POC Glucose (mg/dL) 277 H (70-110) mg/dL Phosphorus 2.4 L (2.5-4.5) mg/dL Alkaline Phosphatase 211 H (38-126) U/L Albumin 2.9 L (3.5-5.0) g/dL Microbiology - Last 24 Hours (Table) 01/28/23 15:10 Blood Culture - Preliminary Blood 01/27/23 14:11 Blood Culture - Final Blood 01/27/23 14:00 Blood Culture - Final Blood 01/29/23 09:24 Gram Stain - Final Diaz-Benítez Body Fluid Culture - Final 01/28/23 22:08 Gram Stain - Final Sputum Sputum Culture - Final Enterobacter aerogenes
[2023-02-02 18:06] LABS: Glucose,Whole Blood 322 mg/dL (70-110)
[2023-02-02] MEDS: MIRTAZAPINE 15 MG TAB NG-TUBE SCH (20:54)
[2023-02-03 00:05] LABS: Glucose,Whole Blood 226 mg/dL (70-110)
[2023-02-03] MEDS: hydrALAZINE HCL 20 MG/ML 1 ML VIAL IVP PRN (00:17)
[2023-02-03] MEDS: INSULIN ASPART (NovoLOG) 100 UNIT/ML VIAL SQ SCH ×5 (00:17→23:51)
[2023-02-03] MEDS: metroNIDAZOLE-NS PMX 500 MG in SALINE 1 100ML.BAG IVPB SCH ×4 (00:17→23:51)
[2023-02-03] MEDS: POTASSIUM CHLORIDE 10 MEQ in WATER FOR INJECTION 1 100ML.BAG IVPB SCH ×2 (00:18→02:02)
[2023-02-03] MEDS: LORazepam 2 MG/ML INJ IV PRN ×3 (02:02→19:12)
[2023-02-03] MEDS: CLEVIDIPINE BUTYRATE 25 MG in EMPTY BAG 1 BAG IV SCH ×4 (02:30→22:16)
--- NOTE | 2023-02-03 03:46 | XR ---
EXAM: XR Abdomen, 1 View CLINICAL HISTORY: ITS.REASON XR Reason: follow up on ileus TECHNIQUE: Frontal supine view of the abdomen/pelvis. COMPARISON: 02/02/2023 at 0119 hours FINDINGS: See Impression. IMPRESSION: 1. Multiple dilated small bowel loops in the left abdomen similar to the prior. As on the prior, may represent ileus or obstruction. 2. Enteric tube tip in the mid stomach. 3. Midline abdominal wall tray. 4. Hardware lower lumbar spine. 5. Catheter overlies the pelvis.
[2023-02-03] MEDS: HYDROmorphone 1 MG/ML 1 ML SYRINGE IVP PRN ×5 (03:54→22:05)
[2023-02-03] MEDS: ACETAMINOPHEN IV (For NPO) 1,000 MG in EMPTY BAG 1 BAG IVPB SCH ×4 (05:14→20:18)
[2023-02-03 05:21] LABS: HCT 31.7 % (34.0-46.0); HGB 10.1 gm/dL (11.4-16.0); Hypochromasia Slight; MCH 29.7 pg (25.0-35.0); MCHC 31.9 g/dL (31.0-37.0); MCV 93.1 fL (80.0-100.0); Mean Platelet Volume 7.2; Platelet Count 641 k/uL (150-450); RDW 14.8 % (11.5-15.5); WBC 25.8 k/uL (3.8-10.6)
[2023-02-03 05:35] LABS: ALT 17 U/L (4-34); AST 19 U/L (14-36); African American GFR (CKD) >90 (>60 ml/min/1.73 sqM); Albumin 2.7 g/dL (3.5-5.0); Alkaline Phosphatase 174 U/L (38-126); Anion Gap 11 mmol/L; Blood Urea Nitrogen 30 mg/dL (7-17); Calcium 8.3 mg/dL (8.4-10.2); Carbon Dioxide 15 mmol/L (22-30); Chloride 117 mmol/L (98-107); Glucose 212 mg/dL (74-99); Magnesium 1.8 mg/dL (1.6-2.3); Non-African American GFR(CKD) 88 (>60 ml/min/1.73 sqM); Phosphorus 3.2 mg/dL (2.5-4.5); Potassium 4.4 mmol/L (3.5-5.1); Sodium 143 mmol/L (137-145); Total Bilirubin 0.3 mg/dL (0.2-1.3)
[2023-02-03 06:12] LABS: Glucose,Whole Blood 226 mg/dL (70-110)
[2023-02-03] MEDS: INSULIN DETEMIR (LEVEMIR) 100 UNIT/ML SYR SQ SCH ×2 (06:24→20:21)
[2023-02-03] MEDS ORDERED: MAGNESIUM SULFATE-D5W PMX 1 GM in DEXTROSE/WATER 1 100ML.BAG IVPB ONE (07:00)
[2023-02-03] MEDS: IPRATROPIUM-ALBUTEROL 3 ML NEB INHALATION SCH ×5 (07:45→21:06)
[2023-02-03] MEDS: NICOTINE 21MG/24HR PATCH TRANSDERM SCH (08:18)
[2023-02-03] MEDS: PANTOPRAZOLE 40 MG/10 ML VIAL IV SCH (08:20)
[2023-02-03] MEDS: ENOXAPARIN 30 MG/0.3 ML SYRINGE SQ SCH (08:21)
[2023-02-03] MEDS: CEFEPIME 2 GM in SODIUM CHLORIDE 0.9% 100 ML IVPB SCH ×2 (08:21→20:20)
[2023-02-03] MEDS: SODIUM BICARBONATE TAB 650 MG TAB PO SCH ×2 (08:37→20:18)
[2023-02-03] MEDS: GABAPENTIN 100 MG CAP PO SCH ×2 (08:37→20:18)
[2023-02-03] MEDS: amLODIPine 10 MG TAB PO SCH (08:37)
[2023-02-03] MEDS: SIMETHICONE 80 MG CHEWABLE PO SCH ×3 (08:38→21:57)
[2023-02-03] MEDS: LEVOTHYROXINE 88 MCG TAB PO SCH (08:38)
[2023-02-03] MEDS ORDERED: SODIUM BICARB 8.4% 50 ML SYR (1 MEQ/ML) IV STA (10:02)
--- NOTE | 2023-02-03 10:03 | P.PN ---
Subjective Patient is seen in follow-up for acute kidney injury. Renal function back to baseline. Receiving TPN as well as normal saline. Potassium and phosphorus being replaced. Nonoliguric. Extubated 01/30/2023. On Cleviprex. Blood pressure stable. Remains acidotic. Sitter at bedside. Vital signs are stable. General: Resting in bed. HEENT: NG tube noted. LUNGS: No audible rhonchi or wheezes. HEART: Rate and Rhythm are regular. ABDOMEN: Ileostomy noted. EXTREMITITES: No edema. Right BKA. Objective - Vital Signs Vital signs: Vital Signs Temp 98.2 F 02/03/23 08:00 Pulse 105 H 02/03/23 09:00 Resp 23 02/03/23 09:00 BP 163/71 02/03/23 09:00 Pulse Ox 96 02/03/23 09:00 FiO2 40 01/30/23 12:00 Intake & Output 02/02/23 02/03/23 02/03/23 18:59 06:59 18:59 Intake Total 2818.200 1768.4 773 Output Total 1385 2640 710 Balance 1433.200 -871.6 63 Weight 77.6 kg 77.7 kg Intake: IV 755 1642 723 ACETAMINOPHEN IV (For NPO 100 100 100 ) 1,000 mg In Empty Bag 1 bag @ 400 mls/hr IVPB Q6H [facility] Rx#:[id number] Anidulafungin 100 mg In 100 Sodium Chloride 0.9% 100 ml @ 84 mls/hr IVPB DAILY @1500 [facility] Rx#:[id number] Cefepime 2 gm In Sodium 100 100 Chloride 0.9% 100 ml @ 25 mls/hr IVPB Q12HR [facility] Rx #:[id number] Magnesium Sulfate-D5w Pmx 100 1 gm In Dextrose/Water 1 100ml.bag @ 100 mls/hr IVPB ONCE ONE Rx#: [id number] Mvi, Adult No.4 with Vit 305 732 183 K 10 ml Trace (Conc-1Ml/ Dose) 1 ml Sodium Acetate 34 meq Potassium Chloride 20 meq Calcium Gluconate 1 gm Magnesium Sulfate gm 0.5 gm In Amino Acid 4.25%-D10w 1, 000 ml @ 61 mls/hr IV .BY DURATION [facility] Rx#: [id number] Potassium Chloride 10 meq 200 In Water For Injection 1 100ml.bag @ 100 mls/hr IVPB Q1H [facility] Rx#: [id number] Sodium Chloride 0.9% 1, 250 510 140 000 ml @ 50 mls/hr IV . Q20H [facility] Rx#:[id number] metroNIDAZOLE-NS PMX 500 100 mg In Saline 1 100ml.bag @ 100 mls/hr IVPB Q8HR [facility] Rx#:[id number] Intake, IV Titration 2063.200 66.4 50 Amount Cefepime 2 gm In Sodium 100 Chloride 0.9% 100 ml @ 25 mls/hr IVPB Q12HR [facility] Rx #:[id number] Clevidipine Butyrate 25 186.200 66.4 50 mg In Empty Bag 1 bag @ 1 MG/HR 2 mls/hr IV .Q24H [facility] Rx#:[id number] Magnesium Sulfate-D5w Pmx 100 1 gm In Dextrose/Water 1 100ml.bag @ 100 mls/hr IVPB ONCE ONE Rx#: [id number] [facility], Adult No.4 with Vit 427 K 10 ml Trace (Conc-1Ml/ Dose) 1 ml Sodium Acetate 34 meq Potassium Chloride 20 meq Calcium Gluconate 1 gm Magnesium Sulfate gm 0.5 gm In Amino Acid 4.25%-D10w 1, 000 ml @ 61 mls/hr IV .BY DURATION [facility] Rx#: [id number] Potassium Chloride 10 meq 200 In Water For Injection 1 100ml.bag @ 100 mls/hr IVPB Q1H [facility] Rx#: [id number] Potassium Phosphate 10 250 mmol In Sodium Chloride 0 .9% 250 ml @ 125 mls/hr IV Q2H [facility] Rx#:[id number] Potassium Phosphate 10 250 mmol In Sodium Chloride 0 .9% 250 ml @ 125 mls/hr IV Q2H [facility] Rx#:[id number] Sodium Chloride 0.9% 1, 350 000 ml @ 50 mls/hr IV . Q20H [facility] Rx#:[id number] metroNIDAZOLE-NS PMX 500 200 mg In Saline 1 100ml.bag @ 100 mls/hr IVPB Q8HR [facility] Rx#:[id number] Other 60 Output: Gastric Drainage 100 500 Drainage 30 Left Lower Abdomen 30 Urine 1285 2010 710 Stool 100 Other: Voiding Method Indwelling Catheter Indwelling Catheter Indwelling Catheter ABP, PAP, CO, CI - Last Documented Arterial Blood Pressure 162/42 - Labs CBC & Chem 7: 02/03/23 04:39 02/03/23 04:39 Labs: Abnormal Lab Results - Last 24 Hours (Table) 02/02/23 02/02/23 02/03/23 Range/Units 11:47 18:04 00:04 WBC (3.8-10.6) k/uL RBC (3.80-5.40) m/uL Hgb (11.4-16.0) gm/dL Hct (34.0-46.0) % Plt Count (150-450) k/uL Chloride (98-107) mmol/L Carbon Dioxide (22-30) mmol/L BUN (7-17) mg/dL Glucose (74-99) mg/dL POC Glucose (mg/dL) 277 H 322 H 226 H (70-110) mg/dL Calcium (8.4-10.2) mg/dL Alkaline Phosphatase (38-126) U/L Total Protein (6.3-8.2) g/dL Albumin (3.5-5.0) g/dL 02/03/23 02/03/23 02/03/23 Range/Units 04:39 04:39 06:10 WBC 25.8 H (3.8-10.6) k/uL RBC 3.40 L (3.80-5.40) m/uL Hgb 10.1 L (11.4-16.0) gm/dL Hct 31.7 L (34.0-46.0) % Plt Count 641 H (150-450) k/uL Chloride 117 H (98-107) mmol/L Carbon Dioxide 15 L (22-30) mmol/L BUN 30 H (7-17) mg/dL Glucose 212 H (74-99) mg/dL POC Glucose (mg/dL) 226 H (70-110) mg/dL Calcium 8.3 L (8.4-10.2) mg/dL Alkaline Phosphatase 174 H (38-126) U/L Total Protein 6.0 L (6.3-8.2) g/dL Albumin 2.7 L (3.5-5.0) g/dL Microbiology - Last 24 Hours (Table) 01/28/23 15:10 Blood Culture - Preliminary Blood 01/27/23 14:11 Blood Culture - Final Blood 01/27/23 14:00 Blood Culture - Final Blood 01/29/23 09:24 Gram Stain - Final [facility] Body Fluid Culture - Final Assessment and Plan Plan: Assessment: 1. Acute kidney injury secondary to ATN secondary to septic shock and cardiac arrest. Resolved. Nonoliguric. No hydronephrosis noted on CAT scan. 2. Metabolic acidosis secondary to acute kidney injury and IV fluids. Status post bicarb drip. 3. Ischemic colitis with necrosis of large intestine status post exploratory laparotomy with total abdominal colectomy and end ileostomy. 4. Status post PEA arrest 01/28/2023. 5. Septic shock secondary to ischemic bowel. Off vasopressors. 6. Hypokalemia from poor intake. Replaced. Improved. 7. Hypophosphatemia from poor intake. Plan: Maintain TPN. Heplock IVFs. Continue to monitor renal function and urine output. Avoid nephrotoxins. Increase acetate in TPN - hand lacer following. Check ABG. Increase bicarb dose. 2 amps sodium bicarb IV push.
[2023-02-03] MEDS: hydrALAZINE HCL 50 MG TAB PO SCH ×3 (10:17→21:57)
--- NOTE | 2023-02-03 10:27 | P.PN ---
Subjective Progress Note Date: 02/03/23 Principal diagnosis: Status post colectomy Patient remains in the ICU. She appears comfortable. Mildly tachycardic. White blood cell count remains elevated at 25.8. Nasogastric tube output remains heavily. She does have a good volume of ileostomy output that is loose. Objective - Vital Signs Vital signs: Vital Signs Temp 98.2 F 02/03/23 08:00 Pulse 105 H 02/03/23 09:00 Resp 23 02/03/23 09:00 BP 163/71 02/03/23 09:00 Pulse Ox 96 02/03/23 09:00 FiO2 40 01/30/23 12:00 Intake & Output 02/02/23 02/03/23 02/03/23 18:59 06:59 18:59 Intake Total 2818.200 1768.4 884 Output Total 1385 2640 930 Balance 1433.200 -871.6 -46 Weight 77.6 kg 77.7 kg Intake: IV 755 1642 834 ACETAMINOPHEN IV (For NPO 100 100 100 ) 1,000 mg In Empty Bag 1 bag @ 400 mls/hr IVPB Q6H [facility] Rx#:[id number] Anidulafungin 100 mg In 100 Sodium Chloride 0.9% 100 ml @ 84 mls/hr IVPB DAILY @1500 [facility] Rx#:[id number] Cefepime 2 gm In Sodium 100 100 Chloride 0.9% 100 ml @ 25 mls/hr IVPB Q12HR [facility] Rx #:[id number] Magnesium Sulfate-D5w Pmx 100 1 gm In Dextrose/Water 1 100ml.bag @ 100 mls/hr IVPB ONCE ONE Rx#: [id number] [facility], Adult No.4 with Vit 305 732 244 K 10 ml Trace (Conc-1Ml/ Dose) 1 ml Sodium Acetate 34 meq Potassium Chloride 20 meq Calcium Gluconate 1 gm Magnesium Sulfate gm 0.5 gm In Amino Acid 4.25%-D10w 1, 000 ml @ 61 mls/hr IV .BY DURATION [facility] Rx#: [id number] Potassium Chloride 10 meq 200 In Water For Injection 1 100ml.bag @ 100 mls/hr IVPB Q1H [facility] Rx#: [id number] Sodium Chloride 0.9% 1, 250 510 190 000 ml @ 50 mls/hr IV . Q20H [facility] Rx#:[id number] metroNIDAZOLE-NS PMX 500 100 mg In Saline 1 100ml.bag @ 100 mls/hr IVPB Q8HR [facility] Rx#:[id number] Intake, IV Titration 2063.200 66.4 50 Amount Cefepime 2 gm In Sodium 100 Chloride 0.9% 100 ml @ 25 mls/hr IVPB Q12HR [facility] Rx #:[id number] Clevidipine Butyrate 25 186.200 66.4 50 mg In Empty Bag 1 bag @ 1 MG/HR 2 mls/hr IV .Q24H [facility] Rx#:[id number] Magnesium Sulfate-D5w Pmx 100 1 gm In Dextrose/Water 1 100ml.bag @ 100 mls/hr IVPB ONCE ONE Rx#: [id number] [facility], Adult No.4 with Vit 427 K 10 ml Trace (Conc-1Ml/ Dose) 1 ml Sodium Acetate 34 meq Potassium Chloride 20 meq Calcium Gluconate 1 gm Magnesium Sulfate gm 0.5 gm In Amino Acid 4.25%-D10w 1, 000 ml @ 61 mls/hr IV .BY DURATION [facility] Rx#: [id number] Potassium Chloride 10 meq 200 In Water For Injection 1 100ml.bag @ 100 mls/hr IVPB Q1H [facility] Rx#: [id number] Potassium Phosphate 10 250 mmol In Sodium Chloride 0 .9% 250 ml @ 125 mls/hr IV Q2H [facility] Rx#:[id number] Potassium Phosphate 10 250 mmol In Sodium Chloride 0 .9% 250 ml @ 125 mls/hr IV Q2H [facility] Rx#:[id number] Sodium Chloride 0.9% 1, 350 000 ml @ 50 mls/hr IV . Q20H [facility] Rx#:[id number] metroNIDAZOLE-NS PMX 500 200 mg In Saline 1 100ml.bag @ 100 mls/hr IVPB Q8HR [facility] Rx#:[id number] Other 60 Output: Gastric Drainage 100 500 Drainage 30 Left Lower Abdomen 30 Urine 1285 2010 930 Stool 100 Other: Voiding Method Indwelling Catheter Indwelling Catheter Indwelling Catheter ABP, PAP, CO, CI - Last Documented Arterial Blood Pressure 162/42 - Exam Abdomen: Soft, nondistended, dressing clean and dry, ostomy functioning with bilious stool - Labs CBC & Chem 7: 02/03/23 04:39 02/03/23 04:39 Labs: Abnormal Lab Results - Last 24 Hours (Table) 05/19/23 05/19/23 05/20/23 Range/Units 11:47 18:04 00:04 WBC (3.8-10.6) k/uL RBC (3.80-5.40) m/uL Hgb (11.4-16.0) gm/dL Hct (34.0-46.0) % Plt Count (150-450) k/uL Chloride (98-107) mmol/L Carbon Dioxide (22-30) mmol/L BUN (7-17) mg/dL Glucose (74-99) mg/dL POC Glucose (mg/dL) 277 H 322 H 226 H (70-110) mg/dL Calcium (8.4-10.2) mg/dL Alkaline Phosphatase (38-126) U/L Total Protein (6.3-8.2) g/dL Albumin (3.5-5.0) g/dL 02/03/23 02/03/23 02/03/23 Range/Units 04:39 04:39 06:10 WBC 25.8 H (3.8-10.6) k/uL RBC 3.40 L (3.80-5.40) m/uL Hgb 10.1 L (11.4-16.0) gm/dL Hct 31.7 L (34.0-46.0) % Plt Count 641 H (150-450) k/uL Chloride 117 H (98-107) mmol/L Carbon Dioxide 15 L (22-30) mmol/L BUN 30 H (7-17) mg/dL Glucose 212 H (74-99) mg/dL POC Glucose (mg/dL) 226 H (70-110) mg/dL Calcium 8.3 L (8.4-10.2) mg/dL Alkaline Phosphatase 174 H (38-126) U/L Total Protein 6.0 L (6.3-8.2) g/dL Albumin 2.7 L (3.5-5.0) g/dL Microbiology - Last 24 Hours (Table) 01/28/23 15:10 Blood Culture - Preliminary Blood 01/27/23 14:11 Blood Culture - Final Blood 01/27/23 14:00 Blood Culture - Final Blood 01/29/23 09:24 Gram Stain - Final [facility] Body Fluid Culture - Final Assessment and Plan (1) Ischemic colitis Narrative/Plan: Patient with persistent high NG output. Keep nasogastric tube to suction for now. Monitor ostomy output. Monitor leukocytosis. Continue antibiotics. Con tinue ICU care. Current Visit: Yes Status: Acute Code(s): K55.9 - VASCULAR DISORDER OF INTESTINE, UNSPECIFIED SNOMED Code(s): 36139715
[2023-02-03 10:30] LABS: ABG Base Excess -4.4 mmol/L; ABG HCO3 20 mmol/L (21-25); ABG Oxygen Saturation 94.9 % (94-97); ABG PCO2 29 mmHg (35-45); ABG PH 7.44 (7.35-7.45); ABG PO2 67 mmHg (83-108); ABG TCO2 21 mmol/L (19-24); Allen Test Performed? Yes
[2023-02-03 11:35] LABS: Glucose,Whole Blood 160 mg/dL (70-110)
[2023-02-03] MEDS: predniSONE 20 MG TAB PO SCH (12:09)
--- NOTE | 2023-02-03 12:17 | P.PN ---
Subjective Progress Note Date: 02/03/23 Principal diagnosis: Abdominal sepsis and ileus 67-year-old female patient is being seen in follow-up on 01/22/2023. A complicated case of abdominal distention, stooling infection requiring surgical intervention along with multiple medical problems and comorbidities P she initi ally presented to us with abdominal pain and she has not had a bowel movement for more than a week. She had significant abdominal distention. She was taken to the operating room and the patient underwent laparotomy, lysis of adhesions, total colectomy, ileostomy and the patient is currently postop day #3. She has been intubated and kept on a mechanical ventilator since. For now, the patient is still on a mechanical ventilator. She is a propofol which is running at 35 mcg/kg/m and she is adequately sedated and symptoms mechanical ventilator. She is on assist-control mode of mechanical ventilation at the rate of 24 with a rate of 24, tidal volume of 400, FiO2 of 30% and a PEEP of 5. Chest x-ray shows cardiomegaly. Some limited infiltrates in the left lung base and the right lower lobe lateral segment. Orotracheal tube is in a good location. The patient also has a triple-lumen catheter in the left subclavian. NG tube is also in good location. For now, the output from the NG tube is minimal. Her IV fluids are running at a rate of 75 mL an hour and the fluid is in the form of a bicarb infusion. She is on no pressors at this point in time in the urine output is in order of 5200 mL an hour. In terms of her electrolytes, the patient's sodium level has been dropping and it's down to 129. BUN is at 40 with a creatinine of 3.47 and a potassium level is at 4.2. Her serum bicarb is improved. She was as low as 13 and she is currently up to 20. Nevertheless, she is developing an acute kidney injury. Her creatinine at time of admission was 1.8 from a normal baseline. She has developed that he worsening of renal function the creatinine is up to 3.47. CAT scan of the abdomen and the pelvis that was done on 01/19/2023 showed no evidence of any hydronephrosis he had she had pancolonic distention with cecum dilatation which was up to 9.4 cm in size. At the same time, her white cell count has dropped down to 17.9 from as high as 25. Hemoglobin is stable at 9.2 and a platelet count is at 159. In terms of cultures, sputum culture has been negative. Abdominal wound cultures were taken and that is also still pending for now and the patient is covered with IV Zosyn. She is afebrile. She is having episodes of low-grade fever. She is on IV Tylenol. She remains hemodynamically stable. The patient remains nothing by mouth for now. The patient has a YASMINE drain located in the left lower quadrant and the output is in order of 200 mL over the past 8 hours. The output is serosanguineous. Her lactic acid level dropped from 7.3 down to 1.8. Blood sugars under adequate control and the patient is taking NovoLog insulin sliding scale coverage. She takes Lantus 55 units twice a day at home. She is also on a combination of Seroquel and Topamax and Prozac at home. On 01/26/2023, the patient is postop day #7. She remains on oxygen at 2 L/m nasal cannula. She is still on TPN for nutritional support. At the same time the patient was given soft and chopped diet with one-to-one supervision. She is able to swallow. She is not meeting her requirements. NG tube was removed yesterday. Ileostomy is functional and there is positive output. She has no s pecific complaints. She is communicating at this point in time. She is hemodynamically stable. She is off the Cleviprex drip. She is on insulin signs good coverage and she is also on IV Zosyn.Blood work today shows a WD skeletal 11.3, hemoglobin 9.3 and a platelet count of 224. Sodium is at 132 with a potassium level of 3.2, BUN is 39 and the creatinine is 1.47. Sugar is 238. The patient is on Levemir insulin 30 units twice a day and she also taken a slight scale coverage. IV fluids and the form of normal saline at rate of 20 mL an hour. She is on Lovenox 30 mg subcu for DVT prophylaxis. The output from the YASMINE drain is serosanguineous and in the order of 70 mL overnight. On 01/27/2023, the patient is postoperative day #8. She is on room air oxygen for now. Doing well. TPN was discontinued and the patient is currently tolerating diet and her ileostomy is functional. No other new complaints otherwise for now. The YASMINE drain is still in place and output is serosanguineous. Hemodynamically stable. No new labs are available from today. Communicating although she is overall weak and somewhat lethargic. Remains on IV Zosyn. Remains on Lovenox for DVT prophylaxis. Remains on Levemir insulin 30 units twice a day and the NovoLog signs good coverage. 01/28/2023, the patient is postop day #9. She is awake and alert and communicating. She was taken off the TPN and currently she is tolerating oral intake. Her ileostomy is functional. YASMINE drains are in place and output is serosanguineous. She is overall weak and she is showing some progress on a daily basis. White cell count was 22 with a hemoglobin 10.2 and a platelet count of 366. BUN is 49 with a creatinine of 2.07 and sodium levels of 1:30. Potassium levels at 4.9. No other new complaints otherwise for now. She is hemodynamically stable. . Dilaudid for pain control. Levemir insulin 30 units twice a day plus a sliding scale coverage. Patient was reevaluated today on 01/29/2023, patient developed an episode of arrest yesterday, she had a 5 minute pulseless electrical activity, patient had to be intubated and mechanically ventilated. Patient had a cardiac arrest while undergoing a computed tomography scan. 3 ML's of brown fluid removed from the nasogastric tube patient was found to have ileus on the CT of the abdomen and pelvis. Received so far for fluids of IV fluids her down time was 3-5 minutes, her ventilator settings today are assist control rate of 24 pressure support of mechanical ventilation with PI of 22, inspiratory time is 0.9 FiO2 is 50%. And PEEP of 5. ABG showed a pO2 of 109 pCO2 of 30 pH of 7.38 hence FiO2 was cut down to 45%. Patient is receiving bicarb drip, she is supposed to have a PICC line placed today. Patient is status post colectomy for ischemic bowel and she was extubated at one point on 02/02. Yesterday she developed a sudden downhill course. She continues to have a functional colostomy, and she has a YASMINE drain in place. Patient remains on daptomycin and Zosyn. She is on propofol at 55 mcg/kg/m she is off norepinephrine today. And she is receiving mostly fluids. WBC count today is 20.8 hemoglobin is 8.4, electrolytes are normal BUN is 46 creatinine 2.14. Chest x-ray is suspicious for a right sideddisease/infiltrate/aspiration pneumonia although the possibility of interstitial edema is not entirely ruled out. But felt to be less likely. Endotracheal tube seems to be sitting up high in the trachea and it will be advanced to COPD Patient was reevaluated today on 01/30/2023, remains in the ICU, intubated and mechanically ventilated. Patient is on pressure control mode of mechanical ventilation with a rate of 24 PI of 22 inspiratory time of 0.9 FiO2 45% and PEEP of 5 ABG showed a pO2 of 106 pCO2 31 pH of 7.45 hence I recommended cutting down the FiO2 to 40%. Patient remains on norepinephrine at 0.08 propofol at 55 mcg/kg/m, bicarb at 75 mL per hour. Considering her bicarb is better today, I'm recommending we stop the bicarb drip. Patient seems to have functional ileostomy nonetheless she continues to have significant output via nasogastric tube. She had 700 mL out on the last shift. She is still quite sedated, and my plan today is to consider a weaning trial if possible off sedation or at least on a lower dose of propofol. Continues to have leukocytosis with WBC count 24.3, hemoglobin is 7.5. Basic metabolic profile is normal bicarb is 21 BUN is 37 creatinine 1.80, steadily improving over the last 2 days. Patient remains on antibiotics in the form of Zosyn, and axis, and daptomycin. This is mostly for ongoing abdominal sepsis. Patient seems to have adequate output in the ileostomy. Chest x-ray is showing improvement in her right lower lobe pneumonia. Sputum is positive for gram-negative bacilli final identification is pending Reevaluated today on 01/31/2023, patient remains in the ICU, she was extubated yesterday, tolerated the extubation well. She is now on 2 L nasal cannula, she is on clevidipine at 3 mg per hour for elevated blood pressure the patient cannot take much orally. Continues to have nasogastric tube in place, still having significant amount of suctioning from the nasogastric tube. She has ostomy that seems to be functional patient is on TPN at 50 mL per hour still on Zosyn and daptomycin she is wheezing, and her chest x-ray showed bilateral infiltrates right more so than left, I suppose the patient had aspiration pneumonia , on proper antibiotics. Renal profile is normal bicarb is 21 Reevaluated today on 02/01/2023, patient remains extubated remains in the ICU, marginal clinical status. Patient continues to have nasogastric tube in place, continues to have ileus based on her flat plate of the abdomen, blood pressure remains high and she is requiring clevidipine at 6 mg per hour. Patient is receiving TPN since we we cannot start enteral feeding mostly because of an ileus. IV fluids remains at KVO patient remains on multiple antibiotics including Flagyl, cefepime and axis. For her blood pressure and recommending clonidine patch him also recommending and Norvasc. Patient is a bit agitated today but she comes down after I talked to her. Continues to have leukocytosis with WBC count of 52 hemoglobin is 10.2, and I believe her leukocytosis is se condary to her abdominal sepsis/ileus and secondary to aspiration pneumonia. Basic metabolic profile is normal and renal profile is normal Reevaluated today on 02/02/2023, remains in the ICU, remains on clevidipine drip at 6 mg per hour. Remains on TPN for her ileus. Continues to have findings of ileus in spite of functioning ostomy. Continues to have output via nasogastric tube also consistent with ileus. Patient was placed on clonidine and Norvasc and hydralazine for her high blood pressure hoping to get rid of clevidipine. Patient continues to have good urine output her pulmonary status is marginal patient is on 2 L nasal cannula, O2 saturations 95%. Patient denies any specific symptoms is relatively asymptomatic intermittently gets agitated. WBC count is coming down to 24.5 hemoglobin is 10.9 electrolytes are normal renal profile is normal liver profile is relatively normal. Blood sugar is 277 chest x-ray continues to show evidence of right sided pneumonia consistent with aspiration pneumonia, abdominal film is showing numerous dilated bowel loops consistent with previous Reevaluated today on 02/03/2023, patient remains in the ICU, remains on levothyroxine at 5 mg per hour. Continues to have significant nasogastric tube output over 300 in the last shift. Her ostomy seems to be functioning well. Patient continues to have what seems to be a hyperchloremic non-anion gap metabolic acidosis. Continues on TPN, at 50 mL per hour. Clinically the patient is not in distress, she is on room air. ABG showed a pO2 of 67 pCO2 29 pH of 7.44 bicarb on the ABG is 21. Renal profile is back to normal creatinine is 0.7 to Objective - Vital Signs Vital signs: Vital Signs Temp 98.2 F 02/03/23 08:00 Pulse 106 H 02/03/23 11:00 Resp 21 02/03/23 11:00 BP 142/70 02/03/23 11:00 Pulse Ox 95 02/03/23 11:00 FiO2 40 01/30/23 12:00 Intake & Output 02/02/23 02/03/23 02/03/23 18:59 06:59 18:59 Intake Total 2818.200 1768.4 1017.866 Output Total 1385 2640 1130 Balance 1433.200 -871.6 -112.134 Weight 77.6 kg 77.7 kg Intake: IV 755 1642 945 ACETAMINOPHEN IV (For NPO 100 100 100 ) 1,000 mg In Empty Bag 1 bag @ 400 mls/hr IVPB Q6H [facility] Rx#:[id number] Anidulafungin 100 mg In 100 Sodium Chloride 0.9% 100 ml @ 84 mls/hr IVPB DAILY @1500 [facility] Rx#:[id number] Cefepime 2 gm In Sodium 100 100 Chloride 0.9% 100 ml @ 25 mls/hr IVPB Q12HR [facility] Rx #:[id number] Magnesium Sulfate-D5w Pmx 100 1 gm In Dextrose/Water 1 100ml.bag @ 100 mls/hr IVPB ONCE ONE Rx#: [id number] Mvi, Adult No.4 with Vit 305 732 305 K 10 ml Trace (Conc-1Ml/ Dose) 1 ml Sodium Acetate 34 meq Potassium Chloride 20 meq Calcium Gluconate 1 gm Magnesium Sulfate gm 0.5 gm In Amino Acid 4.25%-D10w 1, 000 ml @ 61 mls/hr IV .BY DURATION [facility] Rx#: [id number] Potassium Chloride 10 meq 200 In Water For Injection 1 100ml.bag @ 100 mls/hr IVPB Q1H [facility] Rx#: [id number] Sodium Chloride 0.9% 1, 250 510 240 000 ml @ 50 mls/hr IV . Q20H [facility] Rx#:[id number] metroNIDAZOLE-NS PMX 500 100 mg In Saline 1 100ml.bag @ 100 mls/hr IVPB Q8HR [facility] Rx#:[id number] Intake, IV Titration 2063.200 66.4 72.866 Amount Cefepime 2 gm In Sodium 100 Chloride 0.9% 100 ml @ 25 mls/hr IVPB Q12HR [facility] Rx #:[id number] Clevidipine Butyrate 25 186.200 66.4 72.866 mg In Empty Bag 1 bag @ 1 MG/HR 2 mls/hr IV .Q24H [facility] Rx#:[id number] Magnesium Sulfate-D5w Pmx 100 1 gm In Dextrose/Water 1 100ml.bag @ 100 mls/hr IVPB ONCE ONE Rx#: [id number] [facility], Adult No.4 with Vit 427 K 10 ml Trace (Conc-1Ml/ Dose) 1 ml Sodium Acetate 34 meq Potassium Chloride 20 meq Calcium Gluconate 1 gm Magnesium Sulfate gm 0.5 gm In Amino Acid 4.25%-D10w 1, 000 ml @ 61 mls/hr IV .BY DURATION [facility] Rx#: [id number] Potassium Chloride 10 meq 200 In Water For Injection 1 100ml.bag @ 100 mls/hr IVPB Q1H [facility] Rx#: [id number] Potassium Phosphate 10 250 mmol In Sodium Chloride 0 .9% 250 ml @ 125 mls/hr IV Q2H [facility] Rx#:[id number] Potassium Phosphate 10 250 mmol In Sodium Chloride 0 .9% 250 ml @ 125 mls/hr IV Q2H [facility] Rx#:[id number] Sodium Chloride 0.9% 1, 350 000 ml @ 50 mls/hr IV . Q20H [facility] Rx#:[id number] metroNIDAZOLE-NS PMX 500 200 mg In Saline 1 100ml.bag @ 100 mls/hr IVPB Q8HR [facility] Rx#:[id number] Other 60 Output: Gastric Drainage 100 500 Drainage 30 Left Lower Abdomen 30 Urine 1285 2010 1130 Stool 100 Other: Voiding Method Indwelling Catheter Indwelling Catheter Indwelling Catheter ABP, PAP, CO, CI - Last Documented Arterial Blood Pressure 162/42 - Exam Physical Exam: Revealed 67-year-old female, on 2 L nasal cannula, in no distress. Head: Atraumatic, normocephalic. HEENT:[Neck is supple.] [No neck masses.] [No thyromegaly.] [No JVD.] EOMI, nonicteric. Nasogastric tube is intact remains in place Chest: Symmetrical chest expansion, fine crackles at the bases Cardiac Exam: [Normal S1 and S2, no S3 gallop, no murmur.] Abdomen: [Soft, nontender, evidence of ileostomy noted. And YASMINE drains noted. Bowel sounds are hypoactive. No abdominal distention is appreciated. Ostomy seems to be functional. Extremities: [No clubbing, no edema, no cyanosis.] Right above-knee amputation noted Neurological alert and oriented 3 no gross focal deficits Psychiatric: Normal mood, affect and normal mental status examination Skin: No rashes. - Labs CBC & Chem 7: 02/03/23 04:39 02/03/23 04:39 Labs: Abnormal Lab Results - Last 24 Hours (Table) 02/02/23 02/03/23 02/03/23 Range/Units 18:04 00:04 04:39 WBC (3.8-10.6) k/uL RBC (3.80-5.40) m/uL Hgb (11.4-16.0) gm/dL Hct (34.0-46.0) % Plt Count (150-450) k/uL ABG pCO2 (35-45) mmHg ABG pO2 (83-108) mmHg ABG HCO3 (21-25) mmol/L Chloride 117 H (98-107) mmol/L Carbon Dioxide 15 L (22-30) mmol/L BUN 30 H (7-17) mg/dL Glucose 212 H (74-99) mg/dL POC Glucose (mg/dL) 322 H 226 H (70-110) mg/dL Calcium 8.3 L (8.4-10.2) mg/dL Alkaline Phosphatase 174 H (38-126) U/L Total Protein 6.0 L (6.3-8.2) g/dL Albumin 2.7 L (3.5-5.0) g/dL 02/03/23 02/03/23 02/03/23 Range/Units 04:39 06:10 10:22 WBC 25.8 H (3.8-10.6) k/uL RBC 3.40 L (3.80-5.40) m/uL Hgb 10.1 L (11.4-16.0) gm/dL Hct 31.7 L (34.0-46.0) % Plt Count 641 H (150-450) k/uL ABG pCO2 29 L (35-45) mmHg ABG pO2 67 L (83-108) mmHg ABG HCO3 20 L (21-25) mmol/L Chloride (98-107) mmol/L Carbon Dioxide (22-30) mmol/L BUN (7-17) mg/dL Glucose (74-99) mg/dL POC Glucose (mg/dL) 226 H (70-110) mg/dL Calcium (8.4-10.2) mg/dL Alkaline Phosphatase (38-126) U/L Total Protein (6.3-8.2) g/dL Albumin (3.5-5.0) g/dL 02/03/23 Range/Units 11:34 WBC (3.8-10.6) k/uL RBC (3.80-5.40) m/uL Hgb (11.4-16.0) gm/dL Hct (34.0-46.0) % Plt Count (150-450) k/uL ABG pCO2 (35-45) mmHg ABG pO2 (83-108) mmHg ABG HCO3 (21-25) mmol/L Chloride (98-107) mmol/L Carbon Dioxide (22-30) mmol/L BUN (7-17) mg/dL Glucose (74-99) mg/dL POC Glucose (mg/dL) 160 H (70-110) mg/dL Calcium (8.4-10.2) mg/dL Alkaline Phosphatase (38-126) U/L Total Protein (6.3-8.2) g/dL Albumin (3.5-5.0) g/dL Microbiology - Last 24 Hours (Table) 01/28/23 15:10 Blood Culture - Preliminary Blood 01/27/23 14:11 Blood Culture - Final Blood 01/27/23 14:00 Blood Culture - Final Blood 01/29/23 09:24 Gram Stain - Final [facility] Body Fluid Culture - Final Assessment and Plan Assessment: Impression: Acute hypoxic respiratory failure secondary to cardiac arrest requiring intubation and mechanical ventilation Cardiac arrest requiring intubation and mechanical ventilation, patient had a PEA cardiac arrest, down time of 5 minutes. In-hospital cardiac arrest. This occurred on 01/28/2023 Status post exploratory laparotomy, lysis of adhesions, total colectomy, ileostomy, abdominal washout, placement of YASMINE drains, placement of wound VAC postoperative day #14 patient was extubated after this surgery on 01/23/2023 and has been off mechanical ventilation until 01/28 requiring reintubation because of PEA. Patient was extubated again on 01/30/2023. Acute kidney injury improving this is mostly a picture of acute tubular necrosis. 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 Continue to monitor in the ICU for today. As long as the patient is requiring clevidipine. Continue oxygen at 2 L/m titrate accordingly Continue steroids Continue antibiotics/antifungal , Eraxis, cefepime, Flagyl, this is being addressed by ID on the case Continue GI and DVT prophylaxis Continue insulin as per scale W We'll continue to follow Time with Patient: Less than 30
[2023-02-03] MEDS: 1: MVI, ADULT NO.4 WITH VIT K 10 ML, TRACE (CONC-1ML/DOSE) 1 ML, SODIUM ACETATE 30 MEQ, IV SCH ×8 (13:49)
--- NOTE | 2023-02-03 14:46 | P.PN ---
Subjective Progress Note Date: 02/03/23 Ischemic colitis The patient is a 67-year-old female essentially admitted for ischemic colitis. The patient had code after having recovery last week. 02/03. Patient seen and examined. Patient continues to have NG tube, currently on TPN. Does not look in acute distress. Currently in ICU. White count this morning is 25.8, hemoglobin 10.1, sodium 143, potassium 4.4. BUN 30, creatinine 0.72. Denies any nausea, vomiting abdominal pain. Denies any chest pain or shortness of breath PHYSICAL EXAMINATION: GENERAL: The patient is alert , not in any acute distress. Well developed, well nourished. HEENT: Pupils are round and equally reacting to light. EOMI. No scleral icterus. No conjunctival pallor. Normocephalic, atraumatic. No pharyngeal erythema. No thyromegaly. CARDIOVASCULAR: S1 and S2 present. No murmurs, rubs, or gallops. PULMONARY: Chest is clear to auscultation, no wheezing or crackles. ABDOMEN: Soft, nontender, nondistended, ostomy seen, YASMINE drain in place MUSCULOSKELETAL: No joint swelling or deformity. EXTREMITIES: rt AKA NEUROLOGICAL: Gross neurological examination did not reveal any focal deficits. SKIN: No rashes. Assessment and plan Acute hypoxic respiratory failure secondary to cardiac arrest requiring intubation and mechanical ventilation Cardiac arrest requiring intubation and mechanical ventilation, patient had a PEA cardiac arrest, down time of 5 minutes. In-hospital cardiac arrest. This occurred on 01/28/2023 Status post exploratory laparotomy, lysis of adhesions, total colectomy, ileostomy, abdominal washout, placement of YASMINE drains, placement of wound VAC postoperative day # #14 patient was extubated after this surgery on 01/23/2023 and has been off mechanical ventilation until 01/28 requiring reintubation because of PEA. Patient was extubated again on 01/30/2023. Remains extubated so far. Acute kidney injury improving this is mostly a picture of acute tubular necrosis. 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 History of type 2 diabetes Stress incontinence Hypothyroidism Dyslipidemia History of depression Suspect acute aspiration pneumonia, sputum cultures have been positive for Enterobacter aerogenes, sensitive to cefepime Acute exacerbation of COPD noted today hence I'm adding Solu-Medrol the patient does have significant smoking history and underlying COPD Monitor vital signs Monitor CBC Monitor CMP Continue telemetry monitoring Continue breathing treatments Continue Solu-Medrol Continue TPN and IV fluids Continue eraxis, cefepime, Flagyl Critical care on board Follow-up in [place] general surgery following Objective - Vital Signs Vital signs: Vital Signs Temp 98.2 F 02/03/23 08:00 Pulse 101 H 02/03/23 10:00 Resp 24 02/03/23 10:00 BP 154/74 02/03/23 10:00 Pulse Ox 96 02/03/23 10:00 FiO2 40 01/30/23 12:00 Intake & Output 02/02/23 02/03/23 02/03/23 18:59 06:59 18:59 Intake Total 2818.200 1768.4 884 Output Total 1385 2640 930 Balance 1433.200 -871.6 -46 Weight 77.6 kg 77.7 kg Intake: IV 755 1642 834 ACETAMINOPHEN IV (For NPO 100 100 100 ) 1,000 mg In Empty Bag 1 bag @ 400 mls/hr IVPB Q6H [facility] Rx#:[id number] Anidulafungin 100 mg In 100 Sodium Chloride 0.9% 100 ml @ 84 mls/hr IVPB DAILY @1500 [facility] Rx#:[id number] Cefepime 2 gm In Sodium 100 100 Chloride 0.9% 100 ml @ 25 mls/hr IVPB Q12HR [facility] Rx #:[id number] Magnesium Sulfate-D5w Pmx 100 1 gm In Dextrose/Water 1 100ml.bag @ 100 mls/hr IVPB ONCE ONE Rx#: [id number] Mvi, Adult No.4 with Vit 305 732 244 K 10 ml Trace (Conc-1Ml/ Dose) 1 ml Sodium Acetate 34 meq Potassium Chloride 20 meq Calcium Gluconate 1 gm Magnesium Sulfate gm 0.5 gm In Amino Acid 4.25%-D10w 1, 000 ml @ 61 mls/hr IV .BY DURATION [facility] Rx#: [id number] Potassium Chloride 10 meq 200 In Water For Injection 1 100ml.bag @ 100 mls/hr IVPB Q1H [facility] Rx#: [id number] Sodium Chloride 0.9% 1, 250 510 190 000 ml @ 50 mls/hr IV . Q20H [facility] Rx#:[id number] metroNIDAZOLE-NS PMX 500 100 mg In Saline 1 100ml.bag @ 100 mls/hr IVPB Q8HR [facility] Rx#:[id number] Intake, IV Titration 2063.200 66.4 50 Amount Cefepime 2 gm In Sodium 100 Chloride 0.9% 100 ml @ 25 mls/hr IVPB Q12HR [facility] Rx #:[id number] Clevidipine Butyrate 25 186.200 66.4 50 mg In Empty Bag 1 bag @ 1 MG/HR 2 mls/hr IV .Q24H [facility] Rx#:[id number] Magnesium Sulfate-D5w Pmx 100 1 gm In Dextrose/Water 1 100ml.bag @ 100 mls/hr IVPB ONCE ONE Rx#: [id number] Mvi, Adult No.4 with Vit 427 K 10 ml Trace (Conc-1Ml/ Dose) 1 ml Sodium Acetate 34 meq Potassium Chloride 20 meq Calcium Gluconate 1 gm Magnesium Sulfate gm 0.5 gm In Amino Acid 4.25%-D10w 1, 000 ml @ 61 mls/hr IV .BY DURATION [facility] Rx#: [id number] Potassium Chloride 10 meq 200 In Water For Injection 1 100ml.bag @ 100 mls/hr IVPB Q1H [facility] Rx#: [id number] Potassium Phosphate 10 250 mmol In Sodium Chloride 0 .9% 250 ml @ 125 mls/hr IV Q2H [facility] Rx#:[id number] Potassium Phosphate 10 250 mmol In Sodium Chloride 0 .9% 250 ml @ 125 mls/hr IV Q2H [facility] Rx#:[id number] Sodium Chloride 0.9% 1, 350 000 ml @ 50 mls/hr IV . Q20H [facility] Rx#:[id number] metroNIDAZOLE-NS PMX 500 200 mg In Saline 1 100ml.bag @ 100 mls/hr IVPB Q8HR [facility] Rx#:[id number] Other 60 Output: Gastric Drainage 100 500 Drainage 30 Left Lower Abdomen 30 Urine 1285 2010 930 Stool 100 Other: Voiding Method Indwelling Catheter Indwelling Catheter Indwelling Catheter ABP, PAP, CO, CI - Last Documented Arterial Blood Pressure 162/42 - Labs CBC & Chem 7: 02/03/23 04:39 02/03/23 04:39 Labs: Abnormal Lab Results - Last 24 Hours (Table) 02/02/23 02/02/23 02/03/23 Range/Units 11:47 18:04 00:04 WBC (3.8-10.6) k/uL RBC (3.80-5.40) m/uL Hgb (11.4-16.0) gm/dL Hct (34.0-46.0) % Plt Count (150-450) k/uL ABG pCO2 (35-45) mmHg ABG pO2 (83-108) mmHg ABG HCO3 (21-25) mmol/L Chloride (98-107) mmol/L Carbon Dioxide (22-30) mmol/L BUN (7-17) mg/dL Glucose (74-99) mg/dL POC Glucose (mg/dL) 277 H 322 H 226 H (70-110) mg/dL Calcium (8.4-10.2) mg/dL Alkaline Phosphatase (38-126) U/L Total Protein (6.3-8.2) g/dL Albumin (3.5-5.0) g/dL 02/03/23 02/03/23 02/03/23 Range/Units 04:39 04:39 06:10 WBC 25.8 H (3.8-10.6) k/uL RBC 3.40 L (3.80-5.40) m/uL Hgb 10.1 L (11.4-16.0) gm/dL Hct 31.7 L (34.0-46.0) % Plt Count 641 H (150-450) k/uL ABG pCO2 (35-45) mmHg ABG pO2 (83-108) mmHg ABG HCO3 (21-25) mmol/L Chloride 117 H (98-107) mmol/L Carbon Dioxide 15 L (22-30) mmol/L BUN 30 H (7-17) mg/dL Glucose 212 H (74-99) mg/dL POC Glucose (mg/dL) 226 H (70-110) mg/dL Calcium 8.3 L (8.4-10.2) mg/dL Alkaline Phosphatase 174 H (38-126) U/L Total Protein 6.0 L (6.3-8.2) g/dL Albumin 2.7 L (3.5-5.0) g/dL 02/03/23 Range/Units 10:22 WBC (3.8-10.6) k/uL RBC (3.80-5.40) m/uL Hgb (11.4-16.0) gm/dL Hct (34.0-46.0) % Plt Count (150-450) k/uL ABG pCO2 29 L (35-45) mmHg ABG pO2 67 L (83-108) mmHg ABG HCO3 20 L (21-25) mmol/L Chloride (98-107) mmol/L Carbon Dioxide (22-30) mmol/L BUN (7-17) mg/dL Glucose (74-99) mg/dL POC Glucose (mg/dL) (70-110) mg/dL Calcium (8.4-10.2) mg/dL Alkaline Phosphatase (38-126) U/L Total Protein (6.3-8.2) g/dL Albumin (3.5-5.0) g/dL Microbiology - Last 24 Hours (Table) 01/28/23 15:10 Blood Culture - Preliminary Blood 01/27/23 14:11 Blood Culture - Final Blood 01/27/23 14:00 Blood Culture - Final Blood 01/29/23 09:24 Gram Stain - Final [facility] Body Fluid Culture - Final
[2023-02-03] MEDS: ANIDULAFUNGIN 100 MG in SODIUM CHLORIDE 0.9% 100 ML IVPB SCH (15:14)
[2023-02-03] MEDS: NOREPINEPHRINE 4 MG in SODIUM CHLORIDE 0.9% 250 ML IV SCH (16:20)
[2023-02-03 17:26] LABS: Glucose,Whole Blood 220 mg/dL (70-110)
[2023-02-03] MEDS: MIRTAZAPINE 15 MG TAB NG-TUBE SCH (20:18)
--- NOTE | 2023-02-03 22:22 | P.PN ---
Subjective Progress Note Date: 02/03/23 Principal diagnosis: Ischemic colitis patient is a 67-year-old female with a past medical history significant for type 2 diabetes mellitus COPD morbid obesity did have a history of right below the knee amputation and left big toe amputation history of smoking presenting to the hospital with a 2-week history of abdominal pain , patient has been diagnosed with ischemic colitis in this patient with status post subtotal colectomy and ileostomy. Patient has been extubated as of 01/23/2023, patient did have a cardiac arrest 01/28/2023 evening requiring resuscitation and intubation On today's evaluation that is 02/03/2023, patient remains to be afebrile patient is breathing comfortably on room air patient still have the NG and did have output in her ileostomy no further vomiting has been reported by the nursing staff Objective - Vital Signs Vital signs: Vital Signs Temp 98.2 F 02/03/23 08:00 Pulse 101 H 02/03/23 10:00 Resp 24 02/03/23 10:00 BP 154/74 02/03/23 10:00 Pulse Ox 96 02/03/23 10:00 FiO2 40 01/30/23 12:00 Intake & Output 02/02/23 02/03/23 02/03/23 18:59 06:59 18:59 Intake Total 2818.200 1768.4 884 Output Total 1385 2640 930 Balance 1433.200 -871.6 -46 Weight 77.6 kg 77.7 kg Intake: IV 755 1642 834 ACETAMINOPHEN IV (For NPO 100 100 100 ) 1,000 mg In Empty Bag 1 bag @ 400 mls/hr IVPB Q6H [facility] Rx#:[id number] Anidulafungin 100 mg In 100 Sodium Chloride 0.9% 100 ml @ 84 mls/hr IVPB DAILY @1500 [facility] Rx#:[id number] Cefepime 2 gm In Sodium 100 100 Chloride 0.9% 100 ml @ 25 mls/hr IVPB Q12HR [facility] Rx #:[id number] Magnesium Sulfate-D5w Pmx 100 1 gm In Dextrose/Water 1 100ml.bag @ 100 mls/hr IVPB ONCE ONE Rx#: [id number] Mvi, Adult No.4 with Vit 305 732 244 K 10 ml Trace (Conc-1Ml/ Dose) 1 ml Sodium Acetate 34 meq Potassium Chloride 20 meq Calcium Gluconate 1 gm Magnesium Sulfate gm 0.5 gm In Amino Acid 4.25%-D10w 1, 000 ml @ 61 mls/hr IV .BY DURATION [facility] Rx#: [id number] Potassium Chloride 10 meq 200 In Water For Injection 1 100ml.bag @ 100 mls/hr IVPB Q1H [facility] Rx#: [id number] Sodium Chloride 0.9% 1, 250 510 190 000 ml @ 50 mls/hr IV . Q20H [facility] Rx#:[id number] metroNIDAZOLE-NS PMX 500 100 mg In Saline 1 100ml.bag @ 100 mls/hr IVPB Q8HR [facility] Rx#:[id number] Intake, IV Titration 2063.200 66.4 50 Amount Cefepime 2 gm In Sodium 100 Chloride 0.9% 100 ml @ 25 mls/hr IVPB Q12HR [facility] Rx #:[id number] Clevidipine Butyrate 25 186.200 66.4 50 mg In Empty Bag 1 bag @ 1 MG/HR 2 mls/hr IV .Q24H [facility] Rx#:[id number] Magnesium Sulfate-D5w Pmx 100 1 gm In Dextrose/Water 1 100ml.bag @ 100 mls/hr IVPB ONCE ONE Rx#: [id number] Mvi, Adult No.4 with Vit 427 K 10 ml Trace (Conc-1Ml/ Dose) 1 ml Sodium Acetate 34 meq Potassium Chloride 20 meq Calcium Gluconate 1 gm Magnesium Sulfate gm 0.5 gm In Amino Acid 4.25%-D10w 1, 000 ml @ 61 mls/hr IV .BY DURATION [facility] Rx#: [id number] Potassium Chloride 10 meq 200 In Water For Injection 1 100ml.bag @ 100 mls/hr IVPB Q1H [facility] Rx#: [id number] Potassium Phosphate 10 250 mmol In Sodium Chloride 0 .9% 250 ml @ 125 mls/hr IV Q2H [facility] Rx#:[id number] Potassium Phosphate 10 250 mmol In Sodium Chloride 0 .9% 250 ml @ 125 mls/hr IV Q2H [facility] Rx#:[id number] Sodium Chloride 0.9% 1, 350 000 ml @ 50 mls/hr IV . Q20H [facility] Rx#:[id number] metroNIDAZOLE-NS PMX 500 200 mg In Saline 1 100ml.bag @ 100 mls/hr IVPB Q8HR [facility] Rx#:[id number] Other 60 Output: Gastric Drainage 100 500 Drainage 30 Left Lower Abdomen 30 Urine 1285 2010 930 Stool 100 Other: Voiding Method Indwelling Catheter Indwelling Catheter Indwelling Catheter ABP, PAP, CO, CI - Last Documented Arterial Blood Pressure 162/42 - Exam GENERAL DESCRIPTION: An elderly female lying in bed in no distress RESPIRATORY SYSTEM: Unlabored breathing , decreased intensity of breath sounds bilaterally HEART: S1 S2 regular rate and rhythm , ABDOMEN: Soft , mild distention EXTREMITIES: Right BK stump incision is healed - Labs CBC & Chem 7: 02/03/23 04:39 02/03/23 04:39 Labs: Abnormal Lab Results - Last 24 Hours (Table) 02/02/23 02/02/23 02/03/23 Range/Units 11:47 18:04 00:04 WBC (3.8-10.6) k/uL RBC (3.80-5.40) m/uL Hgb (11.4-16.0) gm/dL Hct (34.0-46.0) % Plt Count (150-450) k/uL ABG pCO2 (35-45) mmHg ABG pO2 (83-108) mmHg ABG HCO3 (21-25) mmol/L Chloride (98-107) mmol/L Carbon Dioxide (22-30) mmol/L BUN (7-17) mg/dL Glucose (74-99) mg/dL POC Glucose (mg/dL) 277 H 322 H 226 H (70-110) mg/dL Calcium (8.4-10.2) mg/dL Alkaline Phosphatase (38-126) U/L Total Protein (6.3-8.2) g/dL Albumin (3.5-5.0) g/dL 02/03/23 02/03/23 02/03/23 Range/Units 04:39 04:39 06:10 WBC 25.8 H (3.8-10.6) k/uL RBC 3.40 L (3.80-5.40) m/uL Hgb 10.1 L (11.4-16.0) gm/dL Hct 31.7 L (34.0-46.0) % Plt Count 641 H (150-450) k/uL ABG pCO2 (35-45) mmHg ABG pO2 (83-108) mmHg ABG HCO3 (21-25) mmol/L Chloride 117 H (98-107) mmol/L Carbon Dioxide 15 L (22-30) mmol/L BUN 30 H (7-17) mg/dL Glucose 212 H (74-99) mg/dL POC Glucose (mg/dL) 226 H (70-110) mg/dL Calcium 8.3 L (8.4-10.2) mg/dL Alkaline Phosphatase 174 H (38-126) U/L Total Protein 6.0 L (6.3-8.2) g/dL Albumin 2.7 L (3.5-5.0) g/dL 02/03/23 Range/Units 10:22 WBC (3.8-10.6) k/uL RBC (3.80-5.40) m/uL Hgb (11.4-16.0) gm/dL Hct (34.0-46.0) % Plt Count (150-450) k/uL ABG pCO2 29 L (35-45) mmHg ABG pO2 67 L (83-108) mmHg ABG HCO3 20 L (21-25) mmol/L Chloride (98-107) mmol/L Carbon Dioxide (22-30) mmol/L BUN (7-17) mg/dL Glucose (74-99) mg/dL POC Glucose (mg/dL) (70-110) mg/dL Calcium (8.4-10.2) mg/dL Alkaline Phosphatase (38-126) U/L Total Protein (6.3-8.2) g/dL Albumin (3.5-5.0) g/dL Microbiology - Last 24 Hours (Table) 01/28/23 15:10 Blood Culture - Preliminary Blood 01/27/23 14:11 Blood Culture - Final Blood 01/27/23 14:00 Blood Culture - Final Blood 01/29/23 09:24 Gram Stain - Final [facility] Body Fluid Culture - Final Assessment and Plan (1) Ischemic colitis Current Visit: Yes Status: Acute Code(s): K55.9 - VASCULAR DISORDER OF INTESTINE, UNSPECIFIED SNOMED Code(s): 85051203 (2) Sepsis Current Visit: No Status: Acute Code(s): A41.9 - SEPSIS, UNSPECIFIED ORGANISM SNOMED Code(s): 79637568 Plan: 1patient presented to hospital abdominal pain has been diagnosed with ischemic colitis in this patient infusion of septic shock with low-grade fever tachycardia elevated white count elevated lactic acid source being ischemic large bowel status post subtotal colectomy and end ileostomy , patient subsequently did have worsening of her respiratory status and cardiac arrest requiring reintubation and the patient was subsequently extubated 2-Patient is slowly clinically improving the patient is afebrile white count is trending down the patient to continue cefepime and Flagyl and monitor clinical course closely continue supportive care Time with Patient: Less than 30
[2023-02-03 23:43] LABS: Glucose,Whole Blood 180 mg/dL (70-110)
[2023-02-04] MEDS: ACETAMINOPHEN IV (For NPO) 1,000 MG in EMPTY BAG 1 BAG IVPB SCH ×4 (02:30→20:23)
[2023-02-04] MEDS: LORazepam 2 MG/ML INJ IV PRN ×2 (02:31→15:41)
[2023-02-04 04:30] LABS: ALT 20 U/L (4-34); AST 22 U/L (14-36); African American GFR (CKD) >90 (>60 ml/min/1.73 sqM); Albumin 2.9 g/dL (3.5-5.0); Alkaline Phosphatase 184 U/L (38-126); Anion Gap 9 mmol/L; Blood Urea Nitrogen 27 mg/dL (7-17); Calcium 8.6 mg/dL (8.4-10.2); Carbon Dioxide 22 mmol/L (22-30); Chloride 113 mmol/L (98-107); Glucose 203 mg/dL (74-99); Non-African American GFR(CKD) >90 (>60 ml/min/1.73 sqM); Phosphorus 3.3 mg/dL (2.5-4.5); Potassium 4.1 mmol/L (3.5-5.1); Sodium 144 mmol/L (137-145); Total Bilirubin 0.4 mg/dL (0.2-1.3); Total Protein 6.4 g/dL (6.3-8.2)
[2023-02-04] MEDS: HYDROmorphone 1 MG/ML 1 ML SYRINGE IVP PRN ×3 (05:31→21:17)
[2023-02-04] MEDS: 1: MVI, ADULT NO.4 WITH VIT K 10 ML, TRACE (CONC-1ML/DOSE) 1 ML, SODIUM ACETATE 30 MEQ, IV SCH ×8 (05:32)
[2023-02-04 05:43] LABS: Glucose,Whole Blood 224 mg/dL (70-110)
[2023-02-04] MEDS: INSULIN ASPART (NovoLOG) 100 UNIT/ML VIAL SQ SCH ×3 (05:58→17:57)
[2023-02-04] MEDS: CLEVIDIPINE BUTYRATE 25 MG in EMPTY BAG 1 BAG IV SCH ×3 (05:58→16:52)
[2023-02-04] MEDS: INSULIN DETEMIR (LEVEMIR) 100 UNIT/ML SYR SQ SCH ×2 (07:04→20:25)
[2023-02-04] MEDS: IPRATROPIUM-ALBUTEROL 3 ML NEB INHALATION SCH ×4 (07:53→20:37)
[2023-02-04] MEDS: metroNIDAZOLE-NS PMX 500 MG in SALINE 1 100ML.BAG IVPB SCH ×2 (08:27→15:34)
[2023-02-04] MEDS: PANTOPRAZOLE 40 MG/10 ML VIAL IV SCH (08:43)
[2023-02-04] MEDS: ENOXAPARIN 30 MG/0.3 ML SYRINGE SQ SCH (08:43)
[2023-02-04] MEDS: CEFEPIME 2 GM in SODIUM CHLORIDE 0.9% 100 ML IVPB SCH ×2 (08:43→20:25)
[2023-02-04] MEDS: amLODIPine 10 MG TAB PO SCH (08:44)
[2023-02-04] MEDS: GABAPENTIN 100 MG CAP PO SCH ×2 (08:44→20:25)
[2023-02-04] MEDS: hydrALAZINE HCL 50 MG TAB PO SCH ×3 (08:44→22:30)
[2023-02-04] MEDS: predniSONE 20 MG TAB PO SCH (08:45)
[2023-02-04] MEDS: LEVOTHYROXINE 88 MCG TAB PO SCH (08:45)
[2023-02-04] MEDS: SIMETHICONE 80 MG CHEWABLE PO SCH ×2 (08:45→16:18)
[2023-02-04] MEDS: NICOTINE 21MG/24HR PATCH TRANSDERM SCH (08:45)
[2023-02-04] MEDS: SODIUM BICARBONATE TAB 650 MG TAB PO SCH ×2 (08:46→20:25)
--- NOTE | 2023-02-04 09:50 | P.PN ---
Subjective Progress Note Date: 02/04/23 Principal diagnosis: Status post colectomy Patient is doing well today. Continues to have good ileostomy output. Nasogastric tube output is decreased today. No nausea or vomiting. Minimal pain. Objective - Vital Signs Vital signs: Vital Signs Temp 97.9 F 02/04/23 08:00 Pulse 100 02/04/23 09:00 Resp 22 02/04/23 09:00 BP 157/76 02/04/23 09:00 Pulse Ox 92 L 02/04/23 09:00 FiO2 40 01/30/23 12:00 Intake & Output 02/03/23 02/04/23 02/04/23 18:59 06:59 18:59 Intake Total 2001.566 2648.517 108.867 Output Total 2700 2710 150 Balance -698.434 -61.483 -41.133 Weight 76 kg Intake: IV 1922 1522 81 ACETAMINOPHEN IV (For NPO 100 100 ) 1,000 mg In Empty Bag 1 bag @ 400 mls/hr IVPB Q6H [facility] Rx#:[id number] Anidulafungin 100 mg In 100 Sodium Chloride 0.9% 100 ml @ 84 mls/hr IVPB DAILY @1500 [facility] Rx#:[id number] Cefepime 2 gm In Sodium 100 100 Chloride 0.9% 100 ml @ 25 mls/hr IVPB Q12HR [facility] Rx #:[id number] Magnesium Sulfate-D5w Pmx 100 1 gm In Dextrose/Water 1 100ml.bag @ 100 mls/hr IVPB ONCE ONE Rx#: [id number] Mvi, Adult No.4 with Vit 732 732 61 K 10 ml Trace (Conc-1Ml/ Dose) 1 ml Sodium Acetate 34 meq Potassium Chloride 20 meq Calcium Gluconate 1 gm Magnesium Sulfate gm 0.5 gm In Amino Acid 4.25%-D10w 1, 000 ml @ 61 mls/hr IV .BY DURATION [facility] Rx#: [id number] Sodium Chloride 0.9% 1, 590 490 20 000 ml @ 50 mls/hr IV . Q20H [facility] Rx#:[id number] metroNIDAZOLE-NS PMX 500 200 100 mg In Saline 1 100ml.bag @ 100 mls/hr IVPB Q8HR [facility] Rx#:[id number] Intake, IV Titration 79.566 1026.517 27.867 Amount Clevidipine Butyrate 25 79.566 67.800 27.867 mg In Empty Bag 1 bag @ 1 MG/HR 2 mls/hr IV .Q24H [facility] Rx#:[id number] Sodium Acetate 30 meq 958.717 Potassium Acetate 50 meq Calcium Gluconate 1 gm Magnesium Sulfate gm 1.5 gm Potassium Phosphate 9 mmol In Amino Acid 4.25%- D10w 1,000 ml @ 61 mls/hr IV .BY DURATION [facility] Rx#: [id number] Other 100 Output: Gastric Drainage 100 300 Drainage 30 Left Lower Abdomen 30 Urine 2450 2380 150 Stool 150 Other: Voiding Method Indwelling Catheter Indwelling Catheter ABP, PAP, CO, CI - Last Documented Arterial Blood Pressure 162/42 - Exam Abdomen: Soft, nondistended, ostomy with semi-formed stool, minimal tenderness, incision clean and dry - Labs CBC & Chem 7: 02/03/23 04:39 02/04/23 03:52 Labs: Abnormal Lab Results - Last 24 Hours (Table) 02/03/23 02/03/23 02/03/23 Range/Units 10:22 11:34 17:24 ABG pCO2 29 L (35-45) mmHg ABG pO2 67 L (83-108) mmHg ABG HCO3 20 L (21-25) mmol/L Chloride (98-107) mmol/L BUN (7-17) mg/dL Glucose (74-99) mg/dL POC Glucose (mg/dL) 160 H 220 H (70-110) mg/dL Alkaline Phosphatase (38-126) U/L Albumin (3.5-5.0) g/dL 02/03/23 02/04/23 02/04/23 Range/Units 23:42 03:52 05:41 ABG pCO2 (35-45) mmHg ABG pO2 (83-108) mmHg ABG HCO3 (21-25) mmol/L Chloride 113 H (98-107) mmol/L BUN 27 H (7-17) mg/dL Glucose 203 H (74-99) mg/dL POC Glucose (mg/dL) 180 H 224 H (70-110) mg/dL Alkaline Phosphatase 184 H (38-126) U/L Albumin 2.9 L (3.5-5.0) g/dL Microbiology - Last 24 Hours (Table) 01/28/23 15:10 Blood Culture - Final Blood Assessment and Plan (1) Ischemic colitis Narrative/Plan: Patient doing well today. We'll remove nasogastric tube after clamping if tolerates. Keep nothing by mouth for now. Continue antibiotics. Current Visit: Yes Status: Acute Code(s): K55.9 - VASCULAR DISORDER OF INTESTINE, UNSPECIFIED SNOMED Code(s): 54047170
[2023-02-04] MEDS ORDERED: cloNIDine 0.3 MG/24HR PATCH TRANSDERM SCH (10:00)
[2023-02-04] MEDS: DEXTROSE 5% IN WATER 1,000 ML IV SCH (10:12)
--- NOTE | 2023-02-04 11:30 | P.PN ---
Subjective Progress Note Date: 02/04/23 Principal diagnosis: Abdominal sepsis and ileus 67-year-old female patient is being seen in follow-up on 01/22/2023. A complicated case of abdominal distention, stooling infection requiring surgical intervention along with multiple medical problems and comorbidities P she initi ally presented to us with abdominal pain and she has not had a bowel movement for more than a week. She had significant abdominal distention. She was taken to the operating room and the patient underwent laparotomy, lysis of adhesions, total colectomy, ileostomy and the patient is currently postop day #3. She has been intubated and kept on a mechanical ventilator since. For now, the patient is still on a mechanical ventilator. She is a propofol which is running at 35 mcg/kg/m and she is adequately sedated and symptoms mechanical ventilator. She is on assist-control mode of mechanical ventilation at the rate of 24 with a rate of 24, tidal volume of 400, FiO2 of 30% and a PEEP of 5. Chest x-ray shows cardiomegaly. Some limited infiltrates in the left lung base and the right lower lobe lateral segment. Orotracheal tube is in a good location. The patient also has a triple-lumen catheter in the left subclavian. NG tube is also in good location. For now, the output from the NG tube is minimal. Her IV fluids are running at a rate of 75 mL an hour and the fluid is in the form of a bicarb infusion. She is on no pressors at this point in time in the urine output is in order of 5200 mL an hour. In terms of her electrolytes, the patient's sodium level has been dropping and it's down to 129. BUN is at 40 with a creatinine of 3.47 and a potassium level is at 4.2. Her serum bicarb is improved. She was as low as 13 and she is currently up to 20. Nevertheless, she is developing an acute kidney injury. Her creatinine at time of admission was 1.8 from a normal baseline. She has developed that he worsening of renal function the creatinine is up to 3.47. CAT scan of the abdomen and the pelvis that was done on 01/19/2023 showed no evidence of any hydronephrosis he had she had pancolonic distention with cecum dilatation which was up to 9.4 cm in size. At the same time, her white cell count has dropped down to 17.9 from as high as 25. Hemoglobin is stable at 9.2 and a platelet count is at 159. In terms of cultures, sputum culture has been negative. Abdominal wound cultures were taken and that is also still pending for now and the patient is covered with IV Zosyn. She is afebrile. She is having episodes of low-grade fever. She is on IV Tylenol. She remains hemodynamically stable. The patient remains nothing by mouth for now. The patient has a YASMINE drain located in the left lower quadrant and the output is in order of 200 mL over the past 8 hours. The output is serosanguineous. Her lactic acid level dropped from 7.3 down to 1.8. Blood sugars under adequate control and the patient is taking NovoLog insulin sliding scale coverage. She takes Lantus 55 units twice a day at home. She is also on a combination of Seroquel and Topamax and Prozac at home. On 01/26/2023, the patient is postop day #7. She remains on oxygen at 2 L/m nasal cannula. She is still on TPN for nutritional support. At the same time the patient was given soft and chopped diet with one-to-one supervision. She is able to swallow. She is not meeting her requirements. NG tube was removed yesterday. Ileostomy is functional and there is positive output. She has no s pecific complaints. She is communicating at this point in time. She is hemodynamically stable. She is off the Cleviprex drip. She is on insulin signs good coverage and she is also on IV Zosyn.Blood work today shows a WD skeletal 11.3, hemoglobin 9.3 and a platelet count of 224. Sodium is at 132 with a potassium level of 3.2, BUN is 39 and the creatinine is 1.47. Sugar is 238. The patient is on Levemir insulin 30 units twice a day and she also taken a slight scale coverage. IV fluids and the form of normal saline at rate of 20 mL an hour. She is on Lovenox 30 mg subcu for DVT prophylaxis. The output from the YASMINE drain is serosanguineous and in the order of 70 mL overnight. On 01/27/2023, the patient is postoperative day #8. She is on room air oxygen for now. Doing well. TPN was discontinued and the patient is currently tolerating diet and her ileostomy is functional. No other new complaints otherwise for now. The YASMINE drain is still in place and output is serosanguineous. Hemodynamically stable. No new labs are available from today. Communicating although she is overall weak and somewhat lethargic. Remains on IV Zosyn. Remains on Lovenox for DVT prophylaxis. Remains on Levemir insulin 30 units twice a day and the NovoLog signs good coverage. 01/28/2023, the patient is postop day #9. She is awake and alert and communicating. She was taken off the TPN and currently she is tolerating oral intake. Her ileostomy is functional. YASMINE drains are in place and output is serosanguineous. She is overall weak and she is showing some progress on a daily basis. White cell count was 22 with a hemoglobin 10.2 and a platelet count of 366. BUN is 49 with a creatinine of 2.07 and sodium levels of 1:30. Potassium levels at 4.9. No other new complaints otherwise for now. She is hemodynamically stable. . Dilaudid for pain control. Levemir insulin 30 units twice a day plus a sliding scale coverage. Patient was reevaluated today on 01/29/2023, patient developed an episode of arrest yesterday, she had a 5 minute pulseless electrical activity, patient had to be intubated and mechanically ventilated. Patient had a cardiac arrest while undergoing a computed tomography scan. 3 ML's of brown fluid removed from the nasogastric tube patient was found to have ileus on the CT of the abdomen and pelvis. Received so far for fluids of IV fluids her down time was 3-5 minutes, her ventilator settings today are assist control rate of 24 pressure support of mechanical ventilation with PI of 22, inspiratory time is 0.9 FiO2 is 50%. And PEEP of 5. ABG showed a pO2 of 109 pCO2 of 30 pH of 7.38 hence FiO2 was cut down to 45%. Patient is receiving bicarb drip, she is supposed to have a PICC line placed today. Patient is status post colectomy for ischemic bowel and she was extubated at one point on 02/02. Yesterday she developed a sudden downhill course. She continues to have a functional colostomy, and she has a YASMINE drain in place. Patient remains on daptomycin and Zosyn. She is on propofol at 55 mcg/kg/m she is off norepinephrine today. And she is receiving mostly fluids. WBC count today is 20.8 hemoglobin is 8.4, electrolytes are normal BUN is 46 creatinine 2.14. Chest x-ray is suspicious for a right sideddisease/infiltrate/aspiration pneumonia although the possibility of interstitial edema is not entirely ruled out. But felt to be less likely. Endotracheal tube seems to be sitting up high in the trachea and it will be advanced to COPD Patient was reevaluated today on 01/30/2023, remains in the ICU, intubated and mechanically ventilated. Patient is on pressure control mode of mechanical ventilation with a rate of 24 PI of 22 inspiratory time of 0.9 FiO2 45% and PEEP of 5 ABG showed a pO2 of 106 pCO2 31 pH of 7.45 hence I recommended cutting down the FiO2 to 40%. Patient remains on norepinephrine at 0.08 propofol at 55 mcg/kg/m, bicarb at 75 mL per hour. Considering her bicarb is better today, I'm recommending we stop the bicarb drip. Patient seems to have functional ileostomy nonetheless she continues to have significant output via nasogastric tube. She had 700 mL out on the last shift. She is still quite sedated, and my plan today is to consider a weaning trial if possible off sedation or at least on a lower dose of propofol. Continues to have leukocytosis with WBC count 24.3, hemoglobin is 7.5. Basic metabolic profile is normal bicarb is 21 BUN is 37 creatinine 1.80, steadily improving over the last 2 days. Patient remains on antibiotics in the form of Zosyn, and axis, and daptomycin. This is mostly for ongoing abdominal sepsis. Patient seems to have adequate output in the ileostomy. Chest x-ray is showing improvement in her right lower lobe pneumonia. Sputum is positive for gram-negative bacilli final identification is pending Reevaluated today on 01/31/2023, patient remains in the ICU, she was extubated yesterday, tolerated the extubation well. She is now on 2 L nasal cannula, she is on clevidipine at 3 mg per hour for elevated blood pressure the patient cannot take much orally. Continues to have nasogastric tube in place, still having significant amount of suctioning from the nasogastric tube. She has ostomy that seems to be functional patient is on TPN at 50 mL per hour still on Zosyn and daptomycin she is wheezing, and her chest x-ray showed bilateral infiltrates right more so than left, I suppose the patient had aspiration pneumonia , on proper antibiotics. Renal profile is normal bicarb is 21 Reevaluated today on 02/01/2023, patient remains extubated remains in the ICU, marginal clinical status. Patient continues to have nasogastric tube in place, continues to have ileus based on her flat plate of the abdomen, blood pressure remains high and she is requiring clevidipine at 6 mg per hour. Patient is receiving TPN since we we cannot start enteral feeding mostly because of an ileus. IV fluids remains at KVO patient remains on multiple antibiotics including Flagyl, cefepime and axis. For her blood pressure and recommending clonidine patch him also recommending and Norvasc. Patient is a bit agitated today but she comes down after I talked to her. Continues to have leukocytosis with WBC count of 52 hemoglobin is 10.2, and I believe her leukocytosis is se condary to her abdominal sepsis/ileus and secondary to aspiration pneumonia. Basic metabolic profile is normal and renal profile is normal Reevaluated today on 02/02/2023, remains in the ICU, remains on clevidipine drip at 6 mg per hour. Remains on TPN for her ileus. Continues to have findings of ileus in spite of functioning ostomy. Continues to have output via nasogastric tube also consistent with ileus. Patient was placed on clonidine and Norvasc and hydralazine for her high blood pressure hoping to get rid of clevidipine. Patient continues to have good urine output her pulmonary status is marginal patient is on 2 L nasal cannula, O2 saturations 95%. Patient denies any specific symptoms is relatively asymptomatic intermittently gets agitated. WBC count is coming down to 24.5 hemoglobin is 10.9 electrolytes are normal renal profile is normal liver profile is relatively normal. Blood sugar is 277 chest x-ray continues to show evidence of right sided pneumonia consistent with aspiration pneumonia, abdominal film is showing numerous dilated bowel loops consistent with previous Reevaluated today on 02/03/2023, patient remains in the ICU, remains on clevidipine at 5 mg per hour. Continues to have significant nasogastric tube output over 300 in the last shift. Her ostomy seems to be functioning well. Patient continues to have what seems to be a hyperchloremic non-anion gap metabolic acidosis. Continues on TPN, at 50 mL per hour. Clinically the patient is not in distress, she is on room air. ABG showed a pO2 of 67 pCO2 29 pH of 7.44 bicarb on the ABG is 21. Renal profile is back to normal creatinine is 0.72 Reevaluated today on , remains in the ICU, feeling better, her nasogastric output seems to be less and less in the last 24 hours, hence surgeries considering clamping the tube and possibly remove it sometime later today. Remains on clevidipine drip at 4 mg per hour. Remains on Flagyl and cefepime. Her ostomy output seems to be reasonable nonetheless the patient had significant nasogastric tube output over the last few days but seems to be less in the last 24 hours. Labs today were basically unremarkable, bicarb is 22 electrolytes are normal renal profile is normal and liver profile seems to be normal. Objective - Vital Signs Vital signs: Vital Signs Temp 97.9 F 02/04/23 08:00 Pulse 105 H 02/04/23 11:00 Resp 26 H 02/04/23 11:00 BP 154/70 02/04/23 11:00 Pulse Ox 94 L 02/04/23 11:00 FiO2 40 01/30/23 12:00 Intake & Output 02/03/23 02/04/23 02/04/23 18:59 06:59 18:59 Intake Total 2000.566 2648.517 742.867 Output Total 2700 2710 720 Balance -698.434 -61.483 22.867 Weight 76 kg Intake: IV 2 1522 715 ACETAMINOPHEN IV (For NPO 100 100 100 ) 1,000 mg In Empty Bag 1 bag @ 400 mls/hr IVPB Q6H [facility] Rx#:[id number] Anidulafungin 100 mg In 100 Sodium Chloride 0.9% 100 ml @ 84 mls/hr IVPB DAILY @1500 [facility] Rx#:[id number] Cefepime 2 gm In Sodium 100 100 100 Chloride 0.9% 100 ml @ 25 mls/hr IVPB Q12HR [facility] Rx #:[id number] Dextrose 5% in Water 1, 50 000 ml @ 50 mls/hr IV . Q20H [facility] Rx#:[id number] Magnesium Sulfate-D5w Pmx 100 1 gm In Dextrose/Water 1 100ml.bag @ 100 mls/hr IVPB ONCE ONE Rx#: [id number] Mvi, Adult No.4 with Vit 732 732 305 K 10 ml Trace (Conc-1Ml/ Dose) 1 ml Sodium Acetate 34 meq Potassium Chloride 20 meq Calcium Gluconate 1 gm Magnesium Sulfate gm 0.5 gm In Amino Acid 4.25%-D10w 1, 000 ml @ 61 mls/hr IV .BY DURATION [facility] Rx#: [id number] Sodium Chloride 0.9% 1, 590 490 60 000 ml @ 50 mls/hr IV . Q20H [facility] Rx#:[id number] metroNIDAZOLE-NS PMX 500 200 100 100 mg In Saline 1 100ml.bag @ 100 mls/hr IVPB Q8HR [facility] Rx#:[id number] Intake, IV Titration 79.566 1026.517 27.867 Amount Clevidipine Butyrate 25 79.566 67.800 27.867 mg In Empty Bag 1 bag @ 1 MG/HR 2 mls/hr IV .Q24H [facility] Rx#:[id number] Sodium Acetate 30 meq 958.717 Potassium Acetate 50 meq Calcium Gluconate 1 gm Magnesium Sulfate gm 1.5 gm Potassium Phosphate 9 mmol In Amino Acid 4.25%- D10w 1,000 ml @ 61 mls/hr IV .BY DURATION [facility] Rx#: [id number] Other 100 Output: Gastric Drainage 100 300 Drainage 30 Left Lower Abdomen 30 Urine 2450 2380 570 Stool 150 150 Other: Voiding Method Indwelling Catheter Indwelling Catheter Indwelling Catheter ABP, PAP, CO, CI - Last Documented Arterial Blood Pressure 162/42 - Exam Physical Exam: Revealed 67-year-old female, on room air Head: Atraumatic, normocephalic. HEENT:[Neck is supple.] [No neck masses.] [No thyromegaly.] [No JVD.] EOMI, nonicteric. Nasogastric tube is intact remains in place, output through the nasogastric tube is less than the last 24 hours less than 150 mL. Chest: Symmetrical chest expansion, fine crackles at the bases Cardiac Exam: [Normal S1 and S2, no S3 gallop, no murmur.] Abdomen: [Soft, nontender, evidence of ileostomy noted. And YASMINE drains noted. Bowel sounds are hypoactive. No abdominal distention is appreciated. Ostomy seems to be functional. Extremities: [No clubbing, no edema, no cyanosis.] Right above-knee amputation noted Neurological alert and oriented 3 no gross focal deficits Psychiatric: Normal mood, affect and normal mental status examination Skin: No rashes. - Labs CBC & Chem 7: 02/03/23 04:39 02/04/23 03:52 Labs: Abnormal Lab Results - Last 24 Hours (Table) 02/03/23 02/03/23 02/03/23 Range/Units 11:34 17:24 23:42 Chloride (98-107) mmol/L BUN (7-17) mg/dL Glucose (74-99) mg/dL POC Glucose (mg/dL) 160 H 220 H 180 H (70-110) mg/dL Alkaline Phosphatase (38-126) U/L Albumin (3.5-5.0) g/dL 02/04/23 02/04/23 Range/Units 03:52 05:41 Chloride 113 H (98-107) mmol/L BUN 27 H (7-17) mg/dL Glucose 203 H (74-99) mg/dL POC Glucose (mg/dL) 224 H (70-110) mg/dL Alkaline Phosphatase 184 H (38-126) U/L Albumin 2.9 L (3.5-5.0) g/dL Microbiology - Last 24 Hours (Table) 01/28/23 15:10 Blood Culture - Final Blood Assessment and Plan Assessment: Impression: Acute hypoxic respiratory failure secondary to cardiac arrest requiring intubation and mechanical ventilation Cardiac arrest requiring intubation and mechanical ventilation, patient had a PEA cardiac arrest, down time of 5 minutes. In-hospital cardiac arrest. This occurred on 01/28/2023 Status post exploratory laparotomy, lysis of adhesions, total colectomy, ileostomy, abdominal washout, placement of YASMINE drains, placement of wound VAC postoperative day # 15 patient was extubated after this surgery on 01/23/2023 and has been off mechanical ventilation until 01/28 requiring reintubation because of PEA. Patient was extubated again on 01/30/2023. Acute kidney injury improving this is mostly a picture of acute tubular necrosis. 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 Switched to oral medication once the nasogastric tube is removed. Continue to monitor in the ICU for today. As long as the patient is requiring clevidipine. Continue steroids Continue antibiotics/antifungal , Eraxis, cefepime, Flagyl, this is being addressed by ID on the case Continue GI and DVT prophylaxis Continue insulin as per scale Surgeries considering removing the nasogastric tube sometime later today We'll continue to follow Time with Patient: Less than 30
--- NOTE | 2023-02-04 11:35 | P.PN ---
Subjective Patient is seen in follow-up for acute kidney injury. Renal function back to baseline. Receiving TPN. Nonoliguric. Extubated 01/30/2023. On Cleviprex. Blood pressure stable. Family present at bedside. Vital signs are stable. General: Resting in bed. Awake. HEENT: NG tube noted. LUNGS: No audible rhonchi or wheezes. HEART: Rate and Rhythm are regular. ABDOMEN: Ileostomy noted. EXTREMITITES: No edema. Right BKA. Objective - Vital Signs Vital signs: Vital Signs Temp 97.9 F 02/04/23 08:00 Pulse 105 H 02/04/23 11:00 Resp 26 H 02/04/23 11:00 BP 154/70 02/04/23 11:00 Pulse Ox 94 L 02/04/23 11:00 FiO2 40 01/30/23 12:00 Intake & Output 02/03/23 02/04/23 02/04/23 18:59 06:59 18:59 Intake Total 2001.566 2648.517 742.867 Output Total 2700 2710 720 Balance -698.434 -61.483 22.867 Weight 76 kg Intake: IV 1922 1522 715 ACETAMINOPHEN IV (For NPO 100 100 100 ) 1,000 mg In Empty Bag 1 bag @ 400 mls/hr IVPB Q6H [facility] Rx#:[id number] Anidulafungin 100 mg In 100 Sodium Chloride 0.9% 100 ml @ 84 mls/hr IVPB DAILY @1500 [facility] Rx#:[id number] Cefepime 2 gm In Sodium 100 100 100 Chloride 0.9% 100 ml @ 25 mls/hr IVPB Q12HR [facility] Rx #:[id number] Dextrose 5% in Water 1, 50 000 ml @ 50 mls/hr IV . Q20H [facility] Rx#:[id number] Magnesium Sulfate-D5w Pmx 100 1 gm In Dextrose/Water 1 100ml.bag @ 100 mls/hr IVPB ONCE ONE Rx#: [id number] Mvi, Adult No.4 with Vit 732 732 305 K 10 ml Trace (Conc-1Ml/ Dose) 1 ml Sodium Acetate 34 meq Potassium Chloride 20 meq Calcium Gluconate 1 gm Magnesium Sulfate gm 0.5 gm In Amino Acid 4.25%-D10w 1, 000 ml @ 61 mls/hr IV .BY DURATION [facility] Rx#: [id number] Sodium Chloride 0.9% 1, 590 490 60 000 ml @ 50 mls/hr IV . Q20H [facility] Rx#:[id number] metroNIDAZOLE-NS PMX 500 200 100 100 mg In Saline 1 100ml.bag @ 100 mls/hr IVPB Q8HR [facility] Rx#:[id number] Intake, IV Titration 79.566 1026.517 27.867 Amount Clevidipine Butyrate 25 79.566 67.800 27.867 mg In Empty Bag 1 bag @ 1 MG/HR 2 mls/hr IV .Q24H [facility] Rx#:[id number] Sodium Acetate 30 meq 958.717 Potassium Acetate 50 meq Calcium Gluconate 1 gm Magnesium Sulfate gm 1.5 gm Potassium Phosphate 9 mmol In Amino Acid 4.25%- D10w 1,000 ml @ 61 mls/hr IV .BY DURATION [facility] Rx#: [id number] Other 100 Output: Gastric Drainage 100 300 Drainage 30 Left Lower Abdomen 30 Urine 2450 2380 570 Stool 150 150 Other: Voiding Method Indwelling Catheter Indwelling Catheter Indwelling Catheter ABP, PAP, CO, CI - Last Documented Arterial Blood Pressure 162/42 - Labs CBC & Chem 7: 02/03/23 04:39 02/04/23 03:52 Labs: Abnormal Lab Results - Last 24 Hours (Table) 02/03/23 02/03/23 02/03/23 Range/Units 11:34 17:24 23:42 Chloride (98-107) mmol/L BUN (7-17) mg/dL Glucose (74-99) mg/dL POC Glucose (mg/dL) 160 H 220 H 180 H (70-110) mg/dL Alkaline Phosphatase (38-126) U/L Albumin (3.5-5.0) g/dL 02/04/23 02/04/23 Range/Units 03:52 05:41 Chloride 113 H (98-107) mmol/L BUN 27 H (7-17) mg/dL Glucose 203 H (74-99) mg/dL POC Glucose (mg/dL) 224 H (70-110) mg/dL Alkaline Phosphatase 184 H (38-126) U/L Albumin 2.9 L (3.5-5.0) g/dL Microbiology - Last 24 Hours (Table) 01/28/23 15:10 Blood Culture - Final Blood Assessment and Plan Plan: Assessment: 1. Acute kidney injury secondary to ATN secondary to septic shock and cardiac arrest. Resolved. Nonoliguric. No hydronephrosis noted on CAT scan. 2. Metabolic acidosis secondary to acute kidney injury and IV fluids. Status post bicarb drip. On oral bicarbonate. ABG done 02/03/2023 reviewed - respiratory alkalosis with metabolic acidosis. 3. Ischemic colitis with necrosis of large intestine status post exploratory laparotomy with total abdominal colectomy and end ileostomy. 4. Status post PEA arrest 01/28/2023. 5. Septic shock secondary to ischemic bowel. Off vasopressors. 6. Hypokalemia from poor intake. Replaced. Improved. 7. Hypophosphatemia from poor intake. Replaced. Improved. 8. Mild hypernatremia from lack for a water intake. Plan: Maintain TPN. Start D5W at 50 mL an hour. Continue to monitor renal function and urine output. Avoid nephrotoxins. Increased acetate in TPN - correction worker following.
[2023-02-04 11:49] LABS: Glucose,Whole Blood 250 mg/dL (70-110)
--- NOTE | 2023-02-04 13:45 | P.PN ---
Subjective Progress Note Date: 02/04/23 Ischemic colitis The patient is a 67-year-old female essentially admitted for ischemic colitis. The patient had code after having recovery last week. 02/03. Patient seen and examined. Patient continues to have NG tube, currently on TPN. Does not look in acute distress. Currently in ICU. White count this morning is 25.8, hemoglobin 10.1, sodium 143, potassium 4.4. BUN 30, creatinine 0.72. Denies any nausea, vomiting abdominal pain. Denies any chest pain or shortness of breath 02/04. Patient seen and examined. Labs were done this morning showed sodium 144, potassium 4.1, BUN 27, creatinine 0.69. Vital signs heart rate 106, respiratory 27, blood pressure 163/76, 02/05. Patient seen and examined. NG tube clamped, plan is for NG tube to be removed today. Patient has good ostomy output PHYSICAL EXAMINATION: GENERAL: The patient is alert , not in any acute distress. Well developed, well nourished. HEENT: Pupils are round and equally reacting to light. EOMI. No scleral icterus. No conjunctival pallor. Normocephalic, atraumatic. No pharyngeal erythema. No thyromegaly. CARDIOVASCULAR: S1 and S2 present. No murmurs, rubs, or gallops. PULMONARY: Chest is clear to auscultation, no wheezing or crackles. ABDOMEN: Soft, nontender, nondistended, ostomy seen, YASMINE drain in place MUSCULOSKELETAL: No joint swelling or deformity. EXTREMITIES: rt AKA NEUROLOGICAL: Gross neurological examination did not reveal any focal deficits. SKIN: No rashes. Assessment and plan Acute hypoxic respiratory failure secondary to cardiac arrest requiring intubation and mechanical ventilation Cardiac arrest requiring intubation and mechanical ventilation, patient had a PEA cardiac arrest, down time of 5 minutes. In-hospital cardiac arrest. This occurred on 01/28/2023 Status post exploratory laparotomy, lysis of adhesions, total colectomy, ileostomy, abdominal washout, placement of YASMINE drains, placement of wound VAC postoperative day # #14 patient was extubated after this surgery on 01/23/2023 and has been off mechanical ventilation until 01/28 requiring reintubation because of PEA. Patient was extubated again on 01/30/2023. Remains extubated so far. Acute kidney injury improving this is mostly a picture of acute tubular necrosis. 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 History of type 2 diabetes Stress incontinence Hypothyroidism Dyslipidemia History of depression Suspect acute aspiration pneumonia, sputum cultures have been positive for Enterobacter aerogenes, sensitive to cefepime Acute exacerbation of COPD noted today hence I'm adding Solu-Medrol the patient does have significant smoking history and underlying COPD Monitor vital signs Monitor CBC Monitor CMP Continue telemetry monitoring Continue breathing treatments NG tube clamped Continue Solu-Medrol Continue TPN and IV fluids Continue eraxis, cefepime, Flagyl Critical care on board Follow-up in [place] general surgery following Objective - Vital Signs Vital signs: Vital Signs Temp 98 F 02/04/23 12:00 Pulse 103 H 02/04/23 13:00 Resp 25 H 02/04/23 13:00 BP 160/77 02/04/23 13:00 Pulse Ox 95 02/04/23 13:00 FiO2 40 01/30/23 12:00 Intake & Output 02/03/23 02/04/23 02/04/23 18:59 06:59 18:59 Intake Total 2001.566 2648.517 964.867 Output Total 2700 2710 1120 Balance -698.434 -61.483 -155.133 Weight 76 kg Intake: IV 1922 1522 937 ACETAMINOPHEN IV (For NPO 100 100 100 ) 1,000 mg In Empty Bag 1 bag @ 400 mls/hr IVPB Q6H [facility] Rx#:[id number] Anidulafungin 100 mg In 100 Sodium Chloride 0.9% 100 ml @ 84 mls/hr IVPB DAILY @1500 [facility] Rx#:[id number] Cefepime 2 gm In Sodium 100 100 100 Chloride 0.9% 100 ml @ 25 mls/hr IVPB Q12HR [facility] Rx #:[id number] Dextrose 5% in Water 1, 150 000 ml @ 50 mls/hr IV . Q20H [facility] Rx#:[id number] Magnesium Sulfate-D5w Pmx 100 1 gm In Dextrose/Water 1 100ml.bag @ 100 mls/hr IVPB ONCE ONE Rx#: [id number] Mvi, Adult No.4 with Vit 732 732 427 K 10 ml Trace (Conc-1Ml/ Dose) 1 ml Sodium Acetate 34 meq Potassium Chloride 20 meq Calcium Gluconate 1 gm Magnesium Sulfate gm 0.5 gm In Amino Acid 4.25%-D10w 1, 000 ml @ 61 mls/hr IV .BY DURATION [facility] Rx#: [id number] Sodium Chloride 0.9% 1, 590 490 60 000 ml @ 50 mls/hr IV . Q20H [facility] Rx#:[id number] metroNIDAZOLE-NS PMX 500 200 100 100 mg In Saline 1 100ml.bag @ 100 mls/hr IVPB Q8HR [facility] Rx#:[id number] Intake, IV Titration 79.566 1026.517 27.867 Amount Clevidipine Butyrate 25 79.566 67.800 27.867 mg In Empty Bag 1 bag @ 1 MG/HR 2 mls/hr IV .Q24H [facility] Rx#:[id number] Sodium Acetate 30 meq 958.717 Potassium Acetate 50 meq Calcium Gluconate 1 gm Magnesium Sulfate gm 1.5 gm Potassium Phosphate 9 mmol In Amino Acid 4.25%- D10w 1,000 ml @ 61 mls/hr IV .BY DURATION [facility] Rx#: [id number] Other 100 Output: Gastric Drainage 100 300 Drainage 30 Left Lower Abdomen 30 Urine 2450 2380 820 Stool 150 300 Other: Voiding Method Indwelling Catheter Indwelling Catheter Indwelling Catheter ABP, PAP, CO, CI - Last Documented Arterial Blood Pressure 162/42 - Labs CBC & Chem 7: 02/03/23 04:39 02/04/23 03:52 Labs: Abnormal Lab Results - Last 24 Hours (Table) 02/03/23 02/03/23 02/04/23 Range/Units 17:24 23:42 03:52 Chloride 113 H (98-107) mmol/L BUN 27 H (7-17) mg/dL Glucose 203 H (74-99) mg/dL POC Glucose (mg/dL) 220 H 180 H (70-110) mg/dL Alkaline Phosphatase 184 H (38-126) U/L Albumin 2.9 L (3.5-5.0) g/dL 02/04/23 02/04/23 Range/Units 05:41 11:48 Chloride (98-107) mmol/L BUN (7-17) mg/dL Glucose (74-99) mg/dL POC Glucose (mg/dL) 224 H 250 H (70-110) mg/dL Alkaline Phosphatase (38-126) U/L Albumin (3.5-5.0) g/dL Microbiology - Last 24 Hours (Table) 01/28/23 15:10 Blood Culture - Final Blood
[2023-02-04] MEDS: ANIDULAFUNGIN 100 MG in SODIUM CHLORIDE 0.9% 100 ML IVPB SCH (14:55)
--- NOTE | 2023-02-04 15:24 | P.PN ---
Subjective Progress Note Date: 02/04/23 Principal diagnosis: Ischemic colitis patient is a 67-year-old female with a past medical history significant for type 2 diabetes mellitus COPD morbid obesity did have a history of right below the knee amputation and left big toe amputation history of smoking presenting to the hospital with a 2-week history of abdominal pain , patient has been diagnosed with ischemic colitis in this patient with status post subtotal colectomy and ileostomy. Patient has been extubated as of 01/23/2023, patient did have a cardiac arrest 01/28/2023 evening requiring resuscitation and intubation On today's evaluation that is 02/04/2023, patient continues to be afebrile patient is breathing comfortably on room air, the patient and she has been discontinued, the patient did have output in her ileostomy no further vomiting has been reported by the nursing staff Objective - Vital Signs Vital signs: Vital Signs Temp 98 F 02/04/23 12:00 Pulse 98 02/04/23 14:00 Resp 24 02/04/23 14:00 BP 161/79 02/04/23 14:00 Pulse Ox 95 02/04/23 14:00 FiO2 40 01/30/23 12:00 Intake & Output 02/03/23 02/04/23 02/04/23 18:59 06:59 18:59 Intake Total 2001.566 2648.517 1075.867 Output Total 2700 2710 1220 Balance -698.434 -61.483 -144.133 Weight 76 kg Intake: IV 1922 1522 1048 ACETAMINOPHEN IV (For NPO 100 100 100 ) 1,000 mg In Empty Bag 1 bag @ 400 mls/hr IVPB Q6H [facility] Rx#:[id number] Anidulafungin 100 mg In 100 Sodium Chloride 0.9% 100 ml @ 84 mls/hr IVPB DAILY @1500 [facility] Rx#:[id number] Cefepime 2 gm In Sodium 100 100 100 Chloride 0.9% 100 ml @ 25 mls/hr IVPB Q12HR [facility] Rx #:[id number] Dextrose 5% in Water 1, 200 000 ml @ 50 mls/hr IV . Q20H [facility] Rx#:[id number] Magnesium Sulfate-D5w Pmx 100 1 gm In Dextrose/Water 1 100ml.bag @ 100 mls/hr IVPB ONCE ONE Rx#: [id number] Mvi, Adult No.4 with Vit 732 732 488 K 10 ml Trace (Conc-1Ml/ Dose) 1 ml Sodium Acetate 34 meq Potassium Chloride 20 meq Calcium Gluconate 1 gm Magnesium Sulfate gm 0.5 gm In Amino Acid 4.25%-D10w 1, 000 ml @ 61 mls/hr IV .BY DURATION [facility] Rx#: [id number] Sodium Chloride 0.9% 1, 590 490 60 000 ml @ 50 mls/hr IV . Q20H [facility] Rx#:[id number] metroNIDAZOLE-NS PMX 500 200 100 100 mg In Saline 1 100ml.bag @ 100 mls/hr IVPB Q8HR [facility] Rx#:[id number] Intake, IV Titration 79.566 1026.517 27.867 Amount Clevidipine Butyrate 25 79.566 67.800 27.867 mg In Empty Bag 1 bag @ 1 MG/HR 2 mls/hr IV .Q24H [facility] Rx#:[id number] Sodium Acetate 30 meq 958.717 Potassium Acetate 50 meq Calcium Gluconate 1 gm Magnesium Sulfate gm 1.5 gm Potassium Phosphate 9 mmol In Amino Acid 4.25%- D10w 1,000 ml @ 61 mls/hr IV .BY DURATION [facility] Rx#: [id number] Other 100 Output: Gastric Drainage 100 300 Drainage 30 Left Lower Abdomen 30 Urine 2450 2380 920 Stool 150 300 Other: Voiding Method Indwelling Catheter Indwelling Catheter Indwelling Catheter ABP, PAP, CO, CI - Last Documented Arterial Blood Pressure 162/42 - Exam GENERAL DESCRIPTION: An elderly female lying in bed in no distress RESPIRATORY SYSTEM: Unlabored breathing , decreased intensity of breath sounds bilaterally HEART: S1 S2 regular rate and rhythm , ABDOMEN: Soft , mild distention EXTREMITIES: Right BK stump incision is healed - Labs CBC & Chem 7: 02/03/23 04:39 02/04/23 03:52 Labs: Abnormal Lab Results - Last 24 Hours (Table) 02/03/23 02/03/23 02/04/23 Range/Units 17:24 23:42 03:52 Chloride 113 H (98-107) mmol/L BUN 27 H (7-17) mg/dL Glucose 203 H (74-99) mg/dL POC Glucose (mg/dL) 220 H 180 H (70-110) mg/dL Alkaline Phosphatase 184 H (38-126) U/L Albumin 2.9 L (3.5-5.0) g/dL 02/04/23 02/04/23 Range/Units 05:41 11:48 Chloride (98-107) mmol/L BUN (7-17) mg/dL Glucose (74-99) mg/dL POC Glucose (mg/dL) 224 H 250 H (70-110) mg/dL Alkaline Phosphatase (38-126) U/L Albumin (3.5-5.0) g/dL Microbiology - Last 24 Hours (Table) 01/28/23 15:10 Blood Culture - Final Blood Assessment and Plan (1) Ischemic colitis Current Visit: Yes Status: Acute Code(s): K55.9 - VASCULAR DISORDER OF I NTESTINE, UNSPECIFIED SNOMED Code(s): 54628099 (2) Sepsis Current Visit: No Status: Acute Code(s): A41.9 - SEPSIS, UNSPECIFIED ORGANISM SNOMED Code(s): 63760870 Plan: 1patient presented to hospital abdominal pain has been diagnosed with ischemic colitis in this patient infusion of septic shock with low-grade fever ta chycardia elevated white count elevated lactic acid source being ischemic large bowel status post subtotal colectomy and end ileostomy , patient subsequently did have worsening of her respiratory status and cardiac arrest requiring reintubation and the patient was subsequently extubated 2-Patient is slowly clinically improving the patient is afebrile, we will continue the patient on cefepime , Flagyl along with Eraxis and monitor clinical course closely continue supportive care Time with Patient: Less than 30
[2023-02-04] MEDS: NOREPINEPHRINE 4 MG in SODIUM CHLORIDE 0.9% 250 ML IV SCH (16:18)
[2023-02-04 17:56] LABS: Glucose,Whole Blood 291 mg/dL (70-110)
[2023-02-04] MEDS: MIRTAZAPINE 15 MG TAB NG-TUBE SCH (20:25)
[2023-02-04 23:42] LABS: Glucose,Whole Blood 172 mg/dL (70-110)
[2023-02-05] MEDS: INSULIN ASPART (NovoLOG) 100 UNIT/ML VIAL SQ SCH ×5 (00:15→23:53)
[2023-02-05] MEDS: metroNIDAZOLE-NS PMX 500 MG in SALINE 1 100ML.BAG IVPB SCH ×4 (00:45→23:54)
[2023-02-05] MEDS: 1: MVI, ADULT NO.4 WITH VIT K 10 ML, TRACE (CONC-1ML/DOSE) 1 ML, SODIUM ACETATE 30 MEQ, IV SCH ×16 (00:45→17:31)
[2023-02-05] MEDS: SIMETHICONE 80 MG CHEWABLE PO SCH ×4 (01:46→23:41)
[2023-02-05] MEDS: HYDROmorphone 1 MG/ML 1 ML SYRINGE IVP PRN ×6 (02:16→23:53)
[2023-02-05] MEDS: ACETAMINOPHEN IV (For NPO) 1,000 MG in EMPTY BAG 1 BAG IVPB SCH ×4 (02:18→20:08)
[2023-02-05 04:34] LABS: Basophils # (A) 0.1 k/uL (0-0.2); Basophils % (A) 1 %; Eosinophils # (A) 0.3 k/uL (0-0.7); Eosinophils % (A) 2 %; HCT 32.3 % (34.0-46.0); Hypochromasia Slight; Lymphocytes # (A) 2.5 k/uL (1.0-4.8); Lymphocytes % (A) 15 %; MCH 28.3 pg (25.0-35.0); MCV 91.2 fL (80.0-100.0); Mean Platelet Volume 7.4; Monocytes # (A) 0.6 k/uL (0-1.0); Monocytes % (A) 4 %; Neutrophils # (A) 12.9 k/uL (1.3-7.7); Neutrophils % (A) 77 %; Platelet Count 407 k/uL (150-450); RBC 3.54 m/uL (3.80-5.40); RDW 15.3 % (11.5-15.5); WBC 16.8 k/uL (3.8-10.6)
[2023-02-05 04:37] LABS: Albumin 2.8 g/dL (3.5-5.0); Calcium 8.2 mg/dL (8.4-10.2); Magnesium 2.2 mg/dL (1.6-2.3); Phosphorus 4.1 mg/dL (2.5-4.5); Potassium 4.3 mmol/L (3.5-5.1); Total Bilirubin 0.3 mg/dL (0.2-1.3); Total Protein 6.1 g/dL (6.3-8.2)
[2023-02-05] MEDS: DEXTROSE 5% IN WATER 1,000 ML IV SCH (07:34)
[2023-02-05] MEDS: IPRATROPIUM-ALBUTEROL 3 ML NEB INHALATION SCH ×4 (07:59→20:54)
[2023-02-05] MEDS: INSULIN DETEMIR (LEVEMIR) 100 UNIT/ML SYR SQ SCH ×2 (08:34→20:07)
--- NOTE | 2023-02-05 08:39 | P.PN ---
Subjective Progress Note Date: 02/05/23 Principal diagnosis: Abdominal pain This is a 67-year-old female who presented to the emergency department with complaints of abdominal pain and had not had a bowel movement for multiple days. Patient was found to have an ischemic bowel. She did have a total abdominal colectomy with ileostomy by Dr. Larsen. She did require mechanical ventilation. She does have a significant history of COPD and diabetes, and is a tobacco user. 01/29/23 Yesterday patient had a cardiac arrest while undergoing a computed tomography scan. 3 L of brown fluid removed from NG tube. Ileus was found on the computed tomography scan. Patient is reintubated and remains in the ICU. 01/30/23 Patient remains intubated. She still having significant dark output from NG tube. Plan today is for a PICC line for TPN. 02/01/23 She was extubated on Sunday night. She is currently on 2 L nasal cannula. She is seen laying in bed this morning awake and alert, but is not able to identify the date today. Still having some dark output from NG tube. 02/05/23 Patient remains in ICU. She is seen this morning sitting up in bed. NG tube was removed yesterday. Ostomy is having good output. Patient more alert today than last week. Objective - Vital Signs Vital signs: Vital Signs Temp 98.0 F 02/05/23 08:00 Pulse 90 02/05/23 08:10 Resp 17 02/05/23 08:00 BP 168/76 02/05/23 08:00 Pulse Ox 100 02/05/23 08:00 FiO2 40 01/30/23 12:00 Intake & Output 02/04/23 02/05/23 02/05/23 18:59 06:59 18:59 Intake Total 3690.181 4924.233 161 Output Total 1515 980 350 Balance 302.667 450.233 -189 Weight 77.7 kg Intake: IV 1631 800 161 ACETAMINOPHEN IV (For NPO 200 ) 1,000 mg In Empty Bag 1 bag @ 400 mls/hr IVPB Q6H [facility] Rx#:[id number] Anidulafungin 100 mg In 100 Sodium Chloride 0.9% 100 ml @ 84 mls/hr IVPB DAILY @1500 [facility] Rx#:[id number] Cefepime 2 gm In Sodium 100 100 Chloride 0.9% 100 ml @ 25 mls/hr IVPB Q12HR [facility] Rx #:[id number] Dextrose 5% in Water 1, 400 600 100 000 ml @ 50 mls/hr IV . Q20H [facility] Rx#:[id number] Mvi, Adult No.4 with Vit 671 61 K 10 ml Trace (Conc-1Ml/ Dose) 1 ml Sodium Acetate 34 meq Potassium Chloride 20 meq Calcium Gluconate 1 gm Magnesium Sulfate gm 0.5 gm In Amino Acid 4.25%-D10w 1, 000 ml @ 61 mls/hr IV .BY DURATION [facility] Rx#: [id number] Sodium Chloride 0.9% 1, 60 000 ml @ 50 mls/hr IV . Q20H [facility] Rx#:[id number] metroNIDAZOLE-NS PMX 500 100 100 mg In Saline 1 100ml.bag @ 100 mls/hr IVPB Q8HR [facility] Rx#:[id number] Intake, IV Titration 186.667 30.233 Amount Clevidipine Butyrate 25 86.667 30.233 mg In Empty Bag 1 bag @ 1 MG/HR 2 mls/hr IV .Q24H [facility] Rx#:[id number] metroNIDAZOLE-NS PMX 500 100 mg In Saline 1 100ml.bag @ 100 mls/hr IVPB Q8HR [facility] Rx#:[id number] Oral 600 Output: Drainage 5 Left Lower Abdomen 5 Urine 1210 630 350 Stool 300 350 Other: Voiding Method Indwelling Catheter Indwelling Catheter ABP, PAP, CO, CI - Last Documented Arterial Blood Pressure 162/42 - Constitutional General appearance: Present: cooperative, no acute distress - EENT Eyes: Present: EOMI, PERRLA - Neck Neck: Present: normal ROM. Absent: lymphadenopathy, rigidity - Respiratory Respiratory: bilateral: CTA - Cardiovascular Rhythm: regular Heart sounds: normal: S1, S2 - Gastrointestinal General gastrointestinal: Present: soft - Integumentary Integumentary: Present: normal, normal turgor - Musculoskeletal Musculoskeletal: Present: generalized weakness - Psychiatric Psychiatric: Present: A&O x's 3, appropriate affect, intact judgment & insight - Labs CBC & Chem 7: 02/05/23 03:36 02/05/23 03:36 Labs: Abnormal Lab Results - Last 24 Hours (Table) 05/21/23 05/21/23 05/21/23 Range/Units 11:48 17:54 23:41 WBC (3.8-10.6) k/uL RBC (3.80-5.40) m/uL Hgb (11.4-16.0) gm/dL Hct (34.0-46.0) % Neutrophils # (1.3-7.7) k/uL Chloride (98-107) mmol/L BUN (7-17) mg/dL Glucose (74-99) mg/dL POC Glucose (mg/dL) 250 H 291 H 172 H (70-110) mg/dL Calcium (8.4-10.2) mg/dL Alkaline Phosphatase (38-126) U/L Total Protein (6.3-8.2) g/dL Albumin (3.5-5.0) g/dL 02/05/23 02/05/23 Range/Units 03:36 03:36 WBC 16.8 H (3.8-10.6) k/uL RBC 3.54 L (3.80-5.40) m/uL Hgb 10.0 L (11.4-16.0) gm/dL Hct 32.3 L (34.0-46.0) % Neutrophils # 12.9 H (1.3-7.7) k/uL Chloride 108 H (98-107) mmol/L BUN 33 H (7-17) mg/dL Glucose 137 H (74-99) mg/dL POC Glucose (mg/dL) (70-110) mg/dL Calcium 8.2 L (8.4-10.2) mg/dL Alkaline Phosphatase 212 H (38-126) U/L Total Protein 6.1 L (6.3-8.2) g/dL Albumin 2.8 L (3.5-5.0) g/dL Assessment and Plan (1) Ischemic bowel disease Current Visit: Yes Status: Acute Code(s): K55.9 - VASCULAR DISORDER OF INTESTINE, UNSPECIFIED SNOMED Code(s): 50485341 (2) COPD (chronic obstructive pulmonary disease) Current Visit: No Status: Acute Code(s): J44.9 - CHRONIC OBSTRUCTIVE PULMONARY DISEASE, UNSPECIFIED SNOMED Code(s): 75301830 (3) Type 2 diabetes mellitus Current Visit: No Status: Acute Code(s): E11.9 - TYPE 2 DIABETES MELLITUS WITHOUT COMPLICATIONS SNOMED Code(s): 43636623 (4) Ischemic colitis Current Visit: Yes Status: Acute Code(s): K55.9 - VASCULAR DISORDER OF INTESTINE, UNSPECIFIED SNOMED Code(s): 21719035 (5) History of below-knee amputation of right lower extremity Current Visit: No Status: Acute Code(s): Z89.511 - ACQUIRED ABSENCE OF RIGHT LEG BELOW KNEE SNOMED Code(s): 698171916140018 (6) Opioid dependence Current Visit: No Status: Acute Code(s): F11.20 - OPIOID DEPENDENCE, UNCOMPLICATED SNOMED Code(s): 69589468 Plan: Appreciate multiple consultants. Check labs in the a.m. Patient seen and evaluated by nurse practitioner, physician in agreement with plan
[2023-02-05] MEDS: NICOTINE 21MG/24HR PATCH TRANSDERM SCH (09:35)
[2023-02-05] MEDS: amLODIPine 10 MG TAB PO SCH (09:35)
[2023-02-05] MEDS: ENOXAPARIN 30 MG/0.3 ML SYRINGE SQ SCH (09:36)
[2023-02-05] MEDS: GABAPENTIN 100 MG CAP PO SCH ×2 (09:36→20:05)
[2023-02-05] MEDS: LEVOTHYROXINE 88 MCG TAB PO SCH (09:36)
[2023-02-05] MEDS: predniSONE 20 MG TAB PO SCH (09:36)
[2023-02-05] MEDS: hydrALAZINE HCL 50 MG TAB PO SCH ×3 (09:36→20:05)
[2023-02-05] MEDS: SODIUM BICARBONATE TAB 650 MG TAB PO SCH ×2 (09:36→20:05)
[2023-02-05] MEDS: PANTOPRAZOLE 40 MG/10 ML VIAL IV SCH (09:37)
--- NOTE | 2023-02-05 11:13 | P.PN ---
Subjective Progress Note Date: 02/05/23 67-year-old female patient is being seen in follow-up on 01/22/2023. A complicated case of abdominal distention, stooling infection requiring surgical intervention along with multiple medical problems and comorbidities P she initially presented to us with abdominal pain and she has not had a bowel moveme nt for more than a week. She had significant abdominal distention. She was taken to the operating room and the patient underwent laparotomy, lysis of adhesions, total colectomy, ileostomy and the patient is currently postop day #3. She has been intubated and kept on a mechanical ventilator since. For now, the patient is still on a mechanical ventilator. She is a propofol which is running at 35 mcg/kg/m and she is adequately sedated and symptoms mechanical ventilator. She is on assist-control mode of mechanical ventilation at the rate of 24 with a rate of 24, tidal volume of 400, FiO2 of 30% and a PEEP of 5. Chest x-ray shows cardiomegaly. Some limited infiltrates in the left lung base and the right lower lobe lateral segment. Orotracheal tube is in a good location. The patient also has a triple-lumen catheter in the left subclavian. NG tube is also in good location. For now, the output from the NG tube is minimal. Her IV fluids are running at a rate of 75 mL an hour and the fluid is in the form of a bicarb infusion. She is on no pressors at this point in time in the urine output is in order of 5200 mL an hour. In terms of her electrolytes, the patient's sodium level has been dropping and it's down to 129. BUN is at 40 with a creatinine of 3.47 and a potassium level is at 4.2. Her serum bicarb is improved. She was as low as 13 and she is currently up to 20. Nevertheless, she is developing an acute kidney injury. Her creatinine at time of admission was 1.8 from a normal baseline. She has developed that he worsening of renal function the creatinine is up to 3.47. CAT scan of the abdomen and the pelvis that was done on 01/19/2023 showed no evidence of any hydronephrosis he had she had pancolonic distention with cecum dilatation which was up to 9.4 cm in size. At the same time, her white cell count has dropped down to 17.9 from as high as 25. Hemoglobin is stable at 9.2 and a platelet count is at 159. In terms of cultures, sputum culture has been negative. Abdominal wound cultures were taken and that is also still pending for now and the patient is covered with IV Zosyn. She is afebrile. She is having episodes of low-grade fever. She is on IV Tylenol. She remains hemodynamically stable. The patient remains nothing by mouth for now. The patient has a YASMINE drain located in the left lower quadrant and the output is in order of 200 mL over the past 8 hours. The output is serosanguineous. Her lactic acid level dropped from 7.3 down to 1.8. Blood sugars under adequate control and the patient is taking NovoLog insulin sliding scale coverage. She takes Lantus 55 units twice a day at home. She is also on a combination of Seroquel and Topamax and Prozac at home. On 01/26/2023, the patient is postop day #7. She remains on oxygen at 2 L/m nasal cannula. She is still on TPN for nutritional support. At the same time the patient was given soft and chopped diet with one-to-one supervision. She is able to swallow. She is not meeting her requirements. NG tube was removed yesterday. Ileostomy is functional and there is positive output. She has no specific complaints. She is communicating at this point in time. She is he modynamically stable. She is off the Cleviprex drip. She is on insulin signs good coverage and she is also on IV Zosyn.Blood work today shows a WD skeletal 11.3, hemoglobin 9.3 and a platelet count of 224. Sodium is at 132 with a potassium level of 3.2, BUN is 39 and the creatinine is 1.47. Sugar is 238. The patient is on Levemir insulin 30 units twice a day and she also taken a slight scale coverage. IV fluids and the form of normal saline at rate of 20 mL an hour. She is on Lovenox 30 mg subcu for DVT prophylaxis. The output from the YASMINE drain is serosanguineous and in the order of 70 mL overnight. On 01/27/2023, the patient is postoperative day #8. She is on room air oxygen for now. Doing well. TPN was discontinued and the patient is currently tolerating diet and her ileostomy is functional. No other new complaints otherwise for now. The YASMINE drain is still in place and output is serosanguineous. Hemodynamically stable. No new labs are available from today. Communicating although she is overall weak and somewhat lethargic. Remains on IV Zosyn. Remains on Lovenox for DVT prophylaxis. Remains on Levemir insulin 30 units twice a day and the NovoLog signs good coverage. 01/28/2023, the patient is postop day #9. She is awake and alert and communicating. She was taken off the TPN and currently she is tolerating oral intake. Her ileostomy is functional. YASMINE drains are in place and output is serosanguineous. She is overall weak and she is showing some progress on a daily basis. White cell count was 22 with a hemoglobin 10.2 and a platelet count of 366. BUN is 49 with a creatinine of 2.07 and sodium levels of 1:30. Potassium levels at 4.9. No other new complaints otherwise for now. She is hemodynamically stable. . Dilaudid for pain control. Levemir insulin 30 units twice a day plus a sliding scale coverage. Patient was reevaluated today on 01/29/2023, patient developed an episode of arrest yesterday, she had a 5 minute pulseless electrical activity, patient had to be intubated and mechanically ventilated. Patient had a cardiac arrest while undergoing a computed tomography scan. 3 ML's of brown fluid removed from the nasogastric tube patient was found to have ileus on the CT of the abdomen and pelvis. Received so far for fluids of IV fluids her down time was 3-5 minutes, her ventilator settings today are assist control rate of 24 pressure support of mechanical ventilation with PI of 22, inspiratory time is 0.9 FiO2 is 50%. And PEEP of 5. ABG showed a pO2 of 109 pCO2 of 30 pH of 7.38 hence FiO2 was cut down to 45%. Patient is receiving bicarb drip, she is supposed to have a PICC line placed today. Patient is status post colectomy for ischemic bowel and she was extubated at one point on 02/02. Yesterday she developed a sudden downhill course. She continues to have a functional colostomy, and she has a YASMINE drain in place. Patient remains on daptomycin and Zosyn. She is on propofol at 55 mcg/kg/m she is off norepinephrine today. And she is receiving mostly fluids. WBC count today is 20.8 hemoglobin is 8.4, electrolytes are normal BUN is 46 creatinine 2.14. Chest x-ray is suspicious for a right sideddisease/infiltrate/aspiration pneumonia although the possibility of interstitial edema is not entirely ruled out. But felt to be less likely. Endotracheal tube seems to be sitting up high in the trachea and i t will be advanced to COPD Patient was reevaluated today on 01/30/2023, remains in the ICU, intubated and mechanically ventilated. Patient is on pressure control mode of mechanical ventilation with a rate of 24 PI of 22 inspiratory time of 0.9 FiO2 45% and PEEP of 5 ABG showed a pO2 of 106 pCO2 31 pH of 7.45 hence I recommended cutting down the FiO2 to 40%. Patient remains on norepinephrine at 0.08 propofol at 55 mcg/kg/m, bicarb at 75 mL per hour. Considering her bicarb is better today, I'm recommending we stop the bicarb drip. Patient seems to have functional ileostomy nonetheless she continues to have significant output via nasogastric tube. She had 700 mL out on the last shift. She is still quite sedated, and my plan today is to consider a weaning trial if possible off sedation or at least on a lower dose of propofol. Continues to have leukocytosis with WBC count 24.3, hemoglobin is 7.5. Basic metabolic profile is normal bicarb is 21 BUN is 37 creatinine 1.80, steadily improving over the last 2 days. Patient remains on antibiotics in the form of Zosyn, and axis, and daptomycin. This is mostly for ongoing abdominal sepsis. Patient seems to have adequate output in the ileostomy. Chest x-ray is showing improvement in her right lower lobe pneumonia. Sputum is positive for gram-negative bacilli final identification is pending Reevaluated today on 01/31/2023, patient remains in the ICU, she was extubated yesterday, tolerated the extubation well. She is now on 2 L nasal cannula, she is on clevidipine at 3 mg per hour for elevated blood pressure the patient cannot take much orally. Continues to have nasogastric tube in place, still having significant amount of suctioning from the nasogastric tube. She has ostomy that seems to be functional patient is on TPN at 50 mL per hour still on Zosyn and daptomycin she is wheezing, and her chest x-ray showed bilateral infiltrates right more so than left, I suppose the patient had aspiration pneumonia , on proper antibiotics. Renal profile is normal bicarb is 21 Reevaluated today on 02/01/2023, patient remains extubated remains in the ICU, marginal clinical status. Patient continues to have nasogastric tube in place, continues to have ileus based on her flat plate of the abdomen, blood pressure remains high and she is requiring clevidipine at 6 mg per hour. Patient is receiving TPN since we we cannot start enteral feeding mostly because of an ileus. IV fluids remains at KVO patient remains on multiple antibiotics including Flagyl, cefepime and axis. For her blood pressure and recommending clonidine patch him also recommending and Norvasc. Patient is a bit agitated today but she comes down after I talked to her. Continues to have leukocytosis with WBC count of 52 hemoglobin is 10.2, and I believe her leukocytosis is secondary to her abdominal sepsis/ileus and secondary to aspiration pneumonia. Basic metabolic profile is normal and renal profile is normal Reevaluated today on 02/02/2023, remains in the ICU, remains on clevidipine drip at 6 mg per hour. Remains on TPN for her ileus. Continues to have findings of ileus in spite of functioning ostomy. Continues to have output via nasogastric tube also consistent with ileus. Patient was placed on clonidine and Norvasc and hydralazine for her high blood pressure hoping to get rid of clevidipine. Patient continues to have good urine output her pulmonary status is marginal patient is on 2 L nasal cannula, O2 saturations 95%. Patient denies any specific symptoms is relatively asymptomatic intermittently gets agitated. WBC count is coming down to 24.5 hemoglobin is 10.9 electrolytes are normal renal profile is normal liver profile is relatively normal. Blood sugar is 277 chest x-ray continues to show evidence of right sided pneumonia consistent with aspiration pneumonia, abdominal film is showing numerous dilated bowel loops consistent with previous Reevaluated today on 02/03/2023, patient remains in the ICU, remains on c levidipine at 5 mg per hour. Continues to have significant nasogastric tube output over 300 in the last shift. Her ostomy seems to be functioning well. Patient continues to have what seems to be a hyperchloremic non-anion gap metabolic acidosis. Continues on TPN, at 50 mL per hour. Clinically the patient is not in distress, she is on room air. ABG showed a pO2 of 67 pCO2 29 pH of 7.44 bicarb on the ABG is 21. Renal profile is back to normal creatinine is 0.72 Reevaluated today on , remains in the ICU, feeling better, her nasogastric output seems to be less and less in the last 24 hours, hence surgeries considering clamping the tube and possibly remove it sometime later today. Remains on clevidipine drip at 4 mg per hour. Remains on Flagyl and cefepime. Her ostomy output seems to be reasonable nonetheless the patient had significant nasogastric tube output over the last few days but seems to be less in the last 24 hours. Labs today were basically unremarkable, bicarb is 22 electrolytes are normal renal profile is normal and liver profile seems to be normal. The patient is seen today 02/05/2023 in follow-up in the intensive care unit. She is awake and alert in no acute distress. Currently maintaining O2 saturations in the 90s on room air. She is being nourished with TPN at 61 ML's per hour. D5W at 50 mL per hour. Her clevidipine has been weaned off. She remains on cefepime, Eraxis and Flagyl. She's been recovering from her surgery for a small bowel obstruction that was performed on 01/19/2023 which was a small bowel resection, ileostomy, colectomy, lysis of adhesions. Acute abdomen series is pending. White count 16.8. Hemoglobin 10.0. Sodium 140. Potassium 4.3. Bicarb 24. BUN 33. Creatinine 0.85. Glucose 137. Objective - Vital Signs Vital signs: Vital Signs Temp 98.0 F 02/05/23 08:00 Pulse 88 02/05/23 10:00 Resp 19 02/05/23 10:00 BP 143/73 02/05/23 10:00 Pulse Ox 95 02/05/23 10:00 FiO2 40 01/30/23 12:00 Intake & Output 02/04/23 02/05/23 02/05/23 18:59 06:59 18:59 Intake Total 8462.380 4368.233 383 Output Total 1515 980 550 Balance 302.667 450.233 -167 Weight 77.7 kg Intake: IV 1631 800 383 ACETAMINOPHEN IV (For NPO 200 ) 1,000 mg In Empty Bag 1 bag @ 400 mls/hr IVPB Q6H [facility] Rx#:[id number] Anidulafungin 100 mg In 100 Sodium Chloride 0.9% 100 ml @ 84 mls/hr IVPB DAILY @1500 [facility] Rx#:[id number] Cefepime 2 gm In Sodium 100 100 Chloride 0.9% 100 ml @ 25 mls/hr IVPB Q12HR [facility] Rx #:[id number] Dextrose 5% in Water 1, 400 600 200 000 ml @ 50 mls/hr IV . Q20H [facility] Rx#:[id number] Mvi, Adult No.4 with Vit 671 183 K 10 ml Trace (Conc-1Ml/ Dose) 1 ml Sodium Acetate 34 meq Potassium Chloride 20 meq Calcium Gluconate 1 gm Magnesium Sulfate gm 0.5 gm In Amino Acid 4.25%-D10w 1, 000 ml @ 61 mls/hr IV .BY DURATION [facility] Rx#: [id number] Sodium Chloride 0.9% 1, 60 000 ml @ 50 mls/hr IV . Q20H [facility] Rx#:[id number] metroNIDAZOLE-NS PMX 500 100 100 mg In Saline 1 100ml.bag @ 100 mls/hr IVPB Q8HR [facility] Rx#:[id number] Intake, IV Titration 186.667 30.233 Amount Clevidipine Butyrate 25 86.667 30.233 mg In Empty Bag 1 bag @ 1 MG/HR 2 mls/hr IV .Q24H [facility] Rx#:[id number] metroNIDAZOLE-NS PMX 500 100 mg In Saline 1 100ml.bag @ 100 mls/hr IVPB Q8HR [facility] Rx#:[id number] Oral 600 Output: Drainage 5 Left Lower Abdomen 5 Urine 1210 630 550 Stool 300 350 Other: Voiding Method Indwelling Catheter Indwelling Catheter Indwelling Catheter ABP, PAP, CO, CI - Last Documented Arterial Blood Pressure 162/42 - Exam GENERAL EXAM: Alert, 67-year-old female, on room air, fairly comfortable in no apparent distress. HEAD: Normocephalic. EYES: Normal reaction of pupils, equal size. NOSE: Nasogastric tube remains secured in place. Clear with pink turbinates. THROAT: No erythema or exudates. NECK: No masses, no JVD. CHEST: No chest wall deformity. LUNGS: Equal air entry with no crackles, wheeze, rhonchi or dullness. CVS: S1 and S2 normal with no audible murmur, regular rhythm. ABDOMEN: Ileostomy with output, incision clean and dry, normal bowel sounds, no guarding or rigidity. SPINE: No scoliosis or deformity SKIN: No rashes CENTRAL NERVOUS SYSTEM: No focal deficits, tone is normal in all 4 extremities. EXTREMITIES: Right oxgwy-fcx-hurg amputation. There is no peripheral edema. No clubbing, no cyanosis. Peripheral pulses are intact. - Labs CBC & Chem 7: 02/05/23 03:36 02/05/23 03:36 Labs: Abnormal Lab Results - Last 24 Hours (Table) 02/04/23 02/04/23 02/04/23 Range/Units 11:48 17:54 23:41 WBC (3.8-10.6) k/uL RBC (3.80-5.40) m/uL Hgb (11.4-16.0) gm/dL Hct (34.0-46.0) % Neutrophils # (1.3-7.7) k/uL Chloride (98-107) mmol/L BUN (7-17) mg/dL Glucose (74-99) mg/dL POC Glucose (mg/dL) 250 H 291 H 172 H (70-110) mg/dL Calcium (8.4-10.2) mg/dL Alkaline Phosphatase (38-126) U/L Total Protein (6.3-8.2) g/dL Albumin (3.5-5.0) g/dL 02/05/23 02/05/23 Range/Units 03:36 03:36 WBC 16.8 H (3.8-10.6) k/uL RBC 3.54 L (3.80-5.40) m/uL Hgb 10.0 L (11.4-16.0) gm/dL Hct 32.3 L (34.0-46.0) % Neutrophils # 12.9 H (1.3-7.7) k/uL Chloride 108 H (98-107) mmol/L BUN 33 H (7-17) mg/dL Glucose 137 H (74-99) mg/dL POC Glucose (mg/dL) (70-110) mg/dL Calcium 8.2 L (8.4-10.2) mg/dL Alkaline Phosphatase 212 H (38-126) U/L Total Protein 6.1 L (6.3-8.2) g/dL Albumin 2.8 L (3.5-5.0) g/dL Assessment and Plan Assessment: Acute hypoxic respiratory failure secondary to cardiac arrest requiring intubation and mechanical ventilation Cardiac arrest requiring intubation and mechanical ventilation, patient had a PEA cardiac arrest, down time of 5 minutes. In-hospital cardiac arrest. This occurred on 01/28/2023 Status post exploratory laparotomy, lysis of adhesions, total colectomy, ileostomy, abdominal washout, placement of YASMINE drains, placement of wound VAC postoperative day # 16 patient was extubated after this surgery on 01/23/2023 and has been off mechanical ventilation until 01/28 requiring reintubation because of PEA. Patient was extubated again on 01/30/2023. Acute kidney injury improving this is mostly a picture of acute tubular necrosis. 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 History of type 2 diabetes Stress incontinence Hypothyroidism Dyslipidemia History of depression Suspect acute aspiration pneumonia, sputum cultures have been positive for Enterobacter aerogenes, sensitive to cefepime Acute exacerbation of COPD Chronic tobacco dependence Plan: The patient was seen and evaluated Remains on TPN for nutritional support Currently stable and on room air Antibiotics per ID services Acute abdomen series pending Clevidipine has been weaned off We will continue to follow I have personally seen and examined the patient, performed the documentation and the assessment and plan as written. Number of minutes spent on the visit: 10.
--- NOTE | 2023-02-05 11:15 | P.PN ---
Subjective Progress Note Date: 02/05/23 CHIEF COMPLAINT: Acute abdomen with ischemic bowel HISTORY OF PRESENT ILLNESS: Patient is status post exploratory laparotomy with total abdominal colectomy and end ileostomy, lysis of adhesions on 01/19/23. Patient remains in the ICU. Afebrile. NG tube is out. minimal stool output through her ileostomy. WBC 25.8 down to 16.8 Hgb is 10.0 platelets 407 creatinine 0.85. Patient does have a cough. PHYSICAL EXAM: VITAL SIGNS: Reviewed GENERAL: Well-developed in no acute distress. HEENT: No sclera icterus. Moist buccal mucosa. Head is atraumatic, normocephalic. NECK: Supple without lymphadenopathy. CHEST: Non-labored respirations and equal bilateral excursions. CARDIOVASCULAR: Palpable 2+ radial pulses. ABDOMEN: Soft. Nondistended. Optifoam dressing clean and dry. YASMINE drain serous output. Stool present in ostomy MUSCULOSKELETAL: No clubbing or cyanosis. NEUROLOGIC: Patient intubated and sedated PSYCH: Appropriate affect. Alert and oriented to person, place and time. SKIN: Well perfused. Good skin turgor. ASSESSMENT: 1. Acute abdomen with ischemic bowel 2. Hypertensive heart disease with congestive heart failure 3. Morbid obesity due to excess calories, BMI over 34.8 4. Acute renal failure due to dehydration 5. History of lower extremity amputee 6. Chronic obstructive pulmonary disease 7. Diabetes type 2, insulin-dependent with diabetic nephropathy 8. Gastroesophageal reflux disease 9. Hypotension due to hypovolemia 10. Lactic acidosis 11. Septic shock due to bowel 12. Status post total abdominal colectomy 13. Cardiac arrest 14. Severe ileus 15. Suspected aspiration pneumonia PLAN: -Small bowel follow-through with Gastrografin ordered for evaluation of ileus -Keep patient nothing by mouth -Continue TPN for nutrition support -Continue supportive care -Continue antibiotics per ID -GI prophylaxis Protonix and DVT prophylaxis Lovenox Physician Wood Box Maker note has been reviewed by physician. Signing provider agrees with the documented findings, assessment, and plan of care. Objective - Vital Signs Vital signs: Vital Signs Temp 98.0 F 02/05/23 08:00 Pulse 90 02/05/23 08:10 Resp 17 02/05/23 08:00 BP 168/76 02/05/23 08:00 Pulse Ox 100 02/05/23 08:00 FiO2 40 01/30/23 12:00 Intake & Output 02/04/23 02/05/23 02/05/23 18:59 06:59 18:59 Intake Total 8905.463 2837.233 161 Output Total 1515 980 350 Balance 302.667 450.233 -189 Weight 77.7 kg Intake: IV 1631 800 161 ACETAMINOPHEN IV (For NPO 200 ) 1,000 mg In Empty Bag 1 bag @ 400 mls/hr IVPB Q6H [facility] Rx#:[id number] Anidulafungin 100 mg In 100 Sodium Chloride 0.9% 100 ml @ 84 mls/hr IVPB DAILY @1500 [facility] Rx#:[id number] Cefepime 2 gm In Sodium 100 100 Chloride 0.9% 100 ml @ 25 mls/hr IVPB Q12HR [facility] Rx #:[id number] Dextrose 5% in Water 1, 400 600 100 000 ml @ 50 mls/hr IV . Q20H [facility] Rx#:[id number] Mvi, Adult No.4 with Vit 671 61 K 10 ml Trace (Conc-1Ml/ Dose) 1 ml Sodium Acetate 34 meq Potassium Chloride 20 meq Calcium Gluconate 1 gm Magnesium Sulfate gm 0.5 gm In Amino Acid 4.25%-D10w 1, 000 ml @ 61 mls/hr IV .BY DURATION [facility] Rx#: [id number] Sodium Chloride 0.9% 1, 60 000 ml @ 50 mls/hr IV . Q20H [facility] Rx#:[id number] metroNIDAZOLE-NS PMX 500 100 100 mg In Saline 1 100ml.bag @ 100 mls/hr IVPB Q8HR [facility] Rx#:[id number] Intake, IV Titration 186.667 30.233 Amount Clevidipine Butyrate 25 86.667 30.233 mg In Empty Bag 1 bag @ 1 MG/HR 2 mls/hr IV .Q24H [facility] Rx#:[id number] metroNIDAZOLE-NS PMX 500 100 mg In Saline 1 100ml.bag @ 100 mls/hr IVPB Q8HR [facility] Rx#:[id number] Oral 600 Output: Drainage 5 Left Lower Abdomen 5 Urine 1210 630 350 Stool 300 350 Other: Voiding Method Indwelling Catheter Indwelling Catheter ABP, PAP, CO, CI - Last Documented Arterial Blood Pressure 162/42 - Labs CBC & Chem 7: 02/05/23 03:36 02/05/23 03:36 Labs: Abnormal Lab Results - Last 24 Hours (Table) 02/04/23 02/04/23 02/04/23 Range/Units 11:48 17:54 23:41 WBC (3.8-10.6) k/uL RBC (3.80-5.40) m/uL Hgb (11.4-16.0) gm/dL Hct (34.0-46.0) % Neutrophils # (1.3-7.7) k/uL Chloride (98-107) mmol/L BUN (7-17) mg/dL Glucose (74-99) mg/dL POC Glucose (mg/dL) 250 H 291 H 172 H (70-110) mg/dL Calcium (8.4-10.2) mg/dL Alkaline Phosphatase (38-126) U/L Total Protein (6.3-8.2) g/dL Albumin (3.5-5.0) g/dL 02/05/23 02/05/23 Range/Units 03:36 03:36 WBC 16.8 H (3.8-10.6) k/uL RBC 3.54 L (3.80-5.40) m/uL Hgb 10.0 L (11.4-16.0) gm/dL Hct 32.3 L (34.0-46.0) % Neutrophils # 12.9 H (1.3-7.7) k/uL Chloride 108 H (98-107) mmol/L BUN 33 H (7-17) mg/dL Glucose 137 H (74-99) mg/dL POC Glucose (mg/dL) (70-110) mg/dL Calcium 8.2 L (8.4-10.2) mg/dL Alkaline Phosphatase 212 H (38-126) U/L Total Protein 6.1 L (6.3-8.2) g/dL Albumin 2.8 L (3.5-5.0) g/dL
--- NOTE | 2023-02-05 11:21 | XR ---
EXAMINATION TYPE: XR abdomen acute w cxr DATE OF EXAM: 02/05/2023 COMPARISON: NONE HISTORY: Pain TECHNIQUE: Single view of the chest and 2 views of the abdomen are submitted. FINDINGS: There is pulmonary venous congestion is nonspecific infiltrates. Right-sided PICC line is in place. Midline skin tray are noted. Drainage catheter is seen within the pelvic basin. There is no eviden ce for pneumoperitoneum. Dilated loops of small bowel noted measuring up to 5.8 cm. Mild gastric distention noted as well. No sizeable air fluid levels.No mass effects are seen. No unusual calcifications. IMPRESSION: 1. Dilated small bowel may reflect ileus versus small bowel obstruction. Correlate clinically and pr ogress studies are recommended.
--- NOTE | 2023-02-05 11:32 | P.PN ---
Subjective Patient is seen for follow-up for acute kidney injury. Status post emergent explorative laparotomy and lysis of adhesions with total abdominal colectomy and end ileostomy on 01/19/2023 Patient has been extubated. She is currently awake, comfortable. Renal function continues to improve Urine output at 80-100 ML per hour now. Serum creatinine down to 0.8 Was maintained on D5W. Sodium 140 today. Maintained on TPN Objective - Vital Signs Vital signs: Vital Signs Temp 98.0 F 02/05/23 08:00 Pulse 88 02/05/23 10:00 Resp 19 02/05/23 10:00 BP 143/73 02/05/23 10:00 Pulse Ox 95 02/05/23 10:00 FiO2 40 01/30/23 12:00 Intake & Output 02/04/23 02/05/23 02/05/23 18:59 06:59 18:59 Intake Total 8184.623 4108.233 383 Output Total 1515 980 550 Balance 302.667 450.233 -167 Weight 77.7 kg Intake: IV 1631 800 383 ACETAMINOPHEN IV (For NPO 200 ) 1,000 mg In Empty Bag 1 bag @ 400 mls/hr IVPB Q6H [facility] Rx#:[id number] Anidulafungin 100 mg In 100 Sodium Chloride 0.9% 100 ml @ 84 mls/hr IVPB DAILY @1500 [facility] Rx#:[id number] Cefepime 2 gm In Sodium 100 100 Chloride 0.9% 100 ml @ 25 mls/hr IVPB Q12HR [facility] Rx #:[id number] Dextrose 5% in Water 1, 400 600 200 000 ml @ 50 mls/hr IV . Q20H [facility] Rx#:[id number] Mvi, Adult No.4 with Vit 671 183 K 10 ml Trace (Conc-1Ml/ Dose) 1 ml Sodium Acetate 34 meq Potassium Chloride 20 meq Calcium Gluconate 1 gm Magnesium Sulfate gm 0.5 gm In Amino Acid 4.25%-D10w 1, 000 ml @ 61 mls/hr IV .BY DURATION [facility] Rx#: [id number] Sodium Chloride 0.9% 1, 60 000 ml @ 50 mls/hr IV . Q20H [facility] Rx#:[id number] metroNIDAZOLE-NS PMX 500 100 100 mg In Saline 1 100ml.bag @ 100 mls/hr IVPB Q8HR [facility] Rx#:[id number] Intake, IV Titration 186.667 30.233 Amount Clevidipine Butyrate 25 86.667 30.233 mg In Empty Bag 1 bag @ 1 MG/HR 2 mls/hr IV .Q24H [facility] Rx#:[id number] metroNIDAZOLE-NS PMX 500 100 mg In Saline 1 100ml.bag @ 100 mls/hr IVPB Q8HR [facility] Rx#:[id number] Oral 600 Output: Drainage 5 Left Lower Abdomen 5 Urine 1210 630 550 Stool 300 350 Other: Voiding Method Indwelling Catheter Indwelling Catheter Indwelling Catheter ABP, PAP, CO, CI - Last Documented Arterial Blood Pressure 162/42 - Exam Patient is awake, comfortable Examination of the heart S1 and S2 Examination of the lungs bilateral breath sounds are heard Abdomen is soft it is currently dressed Drains are noted. Examination lower extremity shows right BKA. No significant edema noted EAR FLAP BINDER examination grossly intact - Labs CBC & Chem 7: 02/05/23 03:36 02/05/23 03:36 Labs: Abnormal Lab Results - Last 24 Hours (Table) 02/04/23 02/04/23 02/04/23 Range/Units 11:48 17:54 23:41 WBC (3.8-10.6) k/uL RBC (3.80-5.40) m/uL Hgb (11.4-16.0) gm/dL Hct (34.0-46.0) % Neutrophils # (1.3-7.7) k/uL Chloride (98-107) mmol/L BUN (7-17) mg/dL Glucose (74-99) mg/dL POC Glucose (mg/dL) 250 H 291 H 172 H (70-110) mg/dL Calcium (8.4-10.2) mg/dL Alkaline Phosphatase (38-126) U/L Total Protein (6.3-8.2) g/dL Albumin (3.5-5.0) g/dL 02/05/23 02/05/23 Range/Units 03:36 03:36 WBC 16.8 H (3.8-10.6) k/uL RBC 3.54 L (3.80-5.40) m/uL Hgb 10.0 L (11.4-16.0) gm/dL Hct 32.3 L (34.0-46.0) % Neutrophils # 12.9 H (1.3-7.7) k/uL Chloride 108 H (98-107) mmol/L BUN 33 H (7-17) mg/dL Glucose 137 H (74-99) mg/dL POC Glucose (mg/dL) (70-110) mg/dL Calcium 8.2 L (8.4-10.2) mg/dL Alkaline Phosphatase 212 H (38-126) U/L Total Protein 6.1 L (6.3-8.2) g/dL Albumin 2.8 L (3.5-5.0) g/dL Assessment and Plan Assessment: 1. Acute kidney injury, ischemic ATN currently nonoliguric. No renal abnormalities mentioned on CT. UA shows WBCs 33, 2+ protein no blood. Urine output has improved and serum creatinine continues to improve. UOP was high from post ATN diuresis, now 80-100ml/hr. Cr down to 0.8 mg/dL 2. Septic shock associated with ischemic bowel 3. Lactic acidosis and anion gap metabolic acidosis associated with ischemic bowel septic shock and acute kidney injury 4. Status post PEA on 01/28/2023 5. Acute hypoxic respiratory failure, status post extubation 6. Hypokalemia associated with post-ATN diuresis, being replaced 7. Hypertension currently maintained on hydralazine and off of cleviprex drip Plan: Continue TPN Monitor electrolytes Repeat labs in a.m. Continue current dose of hydralazine and watch for edema
[2023-02-05] MEDS: CEFEPIME 2 GM in SODIUM CHLORIDE 0.9% 100 ML IVPB SCH ×3 (11:36→23:54)
[2023-02-05 11:37] LABS: Glucose,Whole Blood 207 mg/dL (70-110)
[2023-02-05] MEDS: LORazepam 2 MG/ML INJ IV PRN (14:25)
--- NOTE | 2023-02-05 15:05 | FL ---
EXAMINATION TYPE: FL small bowel follow through DATE OF EXAM: 02/05/2023 2:52 PM COMPARISON: NONE HISTORY: Abdominal Pain The patient mixture of 240 ml gastrografin mixed with 240 ml H20 given. Per The requesting order the examination was performed utilizing the portable technique. Small bowel follow-through was performed with transit time of 210 minutes. There is dilatation of the stomach as well as the proximal and mid jejunal loops measuring up to 5.5 cm. There appears to be a transition zone with normalized mid and distal small bowel extending to the patient's ostomy within t he right mid abdomen. IMPRESSION: Dilated jejunal loops extending to the distal jejunum or proximal ileum where there appe ars to be transition zone and then normalized small bowel distally extending to the patient's ostomy. The findings may reflect moderate grade obstruction.
[2023-02-05] MEDS: NOREPINEPHRINE 4 MG in SODIUM CHLORIDE 0.9% 250 ML IV SCH (17:31)
[2023-02-05 18:34] LABS: Glucose,Whole Blood 446 mg/dL (70-110)
[2023-02-05] MEDS ORDERED: INSULIN ASPART (NovoLOG) 100 UNIT/ML VIAL SQ ONE (19:00)
[2023-02-05] MEDS: MIRTAZAPINE 15 MG TAB NG-TUBE SCH (20:05)
--- NOTE | 2023-02-05 22:42 | P.PN ---
Subjective Progress Note Date: 02/05/23 Principal diagnosis: Ischemic colitis patient is a 67-year-old female with a past medical history significant for type 2 diabetes mellitus COPD morbid obesity did have a history of right below the knee amputation and left big toe amputation history of smoking presenting to the hospital with a 2-week history of abdominal pain , patient has been diagnosed with ischemic colitis in this patient with status post subtotal colectomy and ileostomy. Patient has been extubated as of 01/23/2023, patient did have a cardiac arrest 01/28/2023 evening requiring resuscitation and intubation On today's evaluation that is 02/05/2023, patient remains to be afebrile patient is breathing comfortably on room air, the patient has been started on diet for the patient has tolerated did have output in her ileostomy no further vomiting has been reported by the nursing staff Objective - Vital Signs Vital signs: Vital Signs Temp 98.0 F 02/05/23 08:00 Pulse 94 02/05/23 11:55 Resp 20 02/05/23 11:00 BP 124/77 02/05/23 11:00 Pulse Ox 96 02/05/23 11:00 FiO2 40 01/30/23 12:00 Intake & Output 02/04/23 02/05/23 02/05/23 18:59 06:59 18:59 Intake Total 7002.726 8343.233 383 Output Total 1515 980 550 Balance 302.667 450.233 -167 Weight 77.7 kg 77.7 kg Intake: IV 1631 800 383 ACETAMINOPHEN IV (For NPO 200 ) 1,000 mg In Empty Bag 1 bag @ 400 mls/hr IVPB Q6H [facility] Rx#:[id number] Anidulafungin 100 mg In 100 Sodium Chloride 0.9% 100 ml @ 84 mls/hr IVPB DAILY @1500 [facility] Rx#:[id number] Cefepime 2 gm In Sodium 100 100 Chloride 0.9% 100 ml @ 25 mls/hr IVPB Q12HR [facility] Rx #:[id number] Dextrose 5% in Water 1, 400 600 200 000 ml @ 50 mls/hr IV . Q20H [facility] Rx#:[id number] Mvi, Adult No.4 with Vit 671 183 K 10 ml Trace (Conc-1Ml/ Dose) 1 ml Sodium Acetate 34 meq Potassium Chloride 20 meq Calcium Gluconate 1 gm Magnesium Sulfate gm 0.5 gm In Amino Acid 4.25%-D10w 1, 000 ml @ 61 mls/hr IV .BY DURATION [facility] Rx#: [id number] Sodium Chloride 0.9% 1, 60 000 ml @ 50 mls/hr IV . Q20H [facility] Rx#:[id number] metroNIDAZOLE-NS PMX 500 100 100 mg In Saline 1 100ml.bag @ 100 mls/hr IVPB Q8HR [facility] Rx#:[id number] Intake, IV Titration 186.667 30.233 Amount Clevidipine Butyrate 25 86.667 30.233 mg In Empty Bag 1 bag @ 1 MG/HR 2 mls/hr IV .Q24H [facility] Rx#:[id number] metroNIDAZOLE-NS PMX 500 100 mg In Saline 1 100ml.bag @ 100 mls/hr IVPB Q8HR [facility] Rx#:[id number] Oral 600 Output: Drainage 5 Left Lower Abdomen 5 Urine 1210 630 550 Stool 300 350 Other: Voiding Method Indwelling Catheter Indwelling Catheter Indwelling Catheter ABP, PAP, CO, CI - Last Documented Arterial Blood Pressure 162/42 - Exam GENERAL DESCRIPTION: An elderly female lying in bed in no distress RESPIRATORY SYSTEM: Unlabored breathing , decreased intensity of breath sounds bilaterally HEART: S1 S2 regular rate and rhythm , ABDOMEN: Soft , mild distention EXTREMITIES: Right BK stump incision is healed - Labs CBC & Chem 7: 02/05/23 03:36 02/05/23 03:36 Labs: Abnormal Lab Results - Last 24 Hours (Table) 02/04/23 02/04/23 02/05/23 Range/Units 17:54 23:41 03:36 WBC (3.8-10.6) k/uL RBC (3.80-5.40) m/uL Hgb (11.4-16.0) gm/dL Hct (34.0-46.0) % Neutrophils # (1.3-7.7) k/uL Chloride 108 H (98-107) mmol/L BUN 33 H (7-17) mg/dL Glucose 137 H (74-99) mg/dL POC Glucose (mg/dL) 291 H 172 H (70-110) mg/dL Calcium 8.2 L (8.4-10.2) mg/dL Alkaline Phosphatase 212 H (38-126) U/L Total Protein 6.1 L (6.3-8.2) g/dL Albumin 2.8 L (3.5-5.0) g/dL 02/05/23 02/05/23 Range/Units 03:36 11:36 WBC 16.8 H (3.8-10.6) k/uL RBC 3.54 L (3.80-5.40) m/uL Hgb 10.0 L (11.4-16.0) gm/dL Hct 32.3 L (34.0-46.0) % Neutrophils # 12.9 H (1.3-7.7) k/uL Chloride (98-107) mmol/L BUN (7-17) mg/dL Glucose (74-99) mg/dL POC Glucose (mg/dL) 207 H (70-110) mg/dL Calcium (8.4-10.2) mg/dL Alkaline Phosphatase (38-126) U/L Total Protein (6.3-8.2) g/dL Albumin (3.5-5.0) g/dL Assessment and Plan (1) Ischemic colitis Current Visit: Yes Status: Acute Code(s): K55.9 - VASCULAR DISORDER OF INTESTINE, UNSPECIFIED SNOMED Code(s): 90186439 (2) Sepsis Current Visit: No Status: Acute Code(s): A41.9 - SEPSIS, UNSPECIFIED ORGANISM SNOMED Code(s): 91166219 Plan: 1patient presented to hospital abdominal pain has been diagnosed with ischemic colitis in this patient infusion of septic shock with low-grade fever tachycardia elevated white count elevated lactic acid source being ischemic large bowel status post subtotal colectomy and end ileostomy , patient subsequently did have worsening of her respiratory status and cardiac arrest requiring reintubation and the patient was subsequently extubated 2-Patient has shown clinical improvement the patient is afebrile, patient white count is down to 16,000 we will continue the patient on cefepime , Flagyl however we'll discontinue Eraxis and monitor clinical course closely continue supportive care Time with Patient: Less than 30
[2023-02-05 23:41] LABS: Glucose,Whole Blood 391 mg/dL (70-110)
[2023-02-06] MEDS: ACETAMINOPHEN IV (For NPO) 1,000 MG in EMPTY BAG 1 BAG IVPB SCH (03:07)
[2023-02-06 04:08] LABS: Basophils # (A) 0.1 k/uL (0-0.2); Basophils % (A) 0 %; Eosinophils # (A) 0.1 k/uL (0-0.7); Eosinophils % (A) 1 %; HCT 29.2 % (34.0-46.0); HGB 9.2 gm/dL (11.4-16.0); Hypochromasia Slight; Lymphocytes # (A) 1.8 k/uL (1.0-4.8); Lymphocytes % (A) 14 %; MCH 29.5 pg (25.0-35.0); MCHC 31.4 g/dL (31.0-37.0); MCV 93.7 fL (80.0-100.0); Mean Platelet Volume 7.1; Monocytes # (A) 0.5 k/uL (0-1.0); Monocytes % (A) 4 %; Neutrophils # (A) 10.3 k/uL (1.3-7.7); Neutrophils % (A) 80 %; Platelet Count 325 k/uL (150-450); RBC 3.11 m/uL (3.80-5.40); RDW 15.1 % (11.5-15.5)
[2023-02-06 04:13] LABS: Ionized Calcium 4.9 mg/dL (4.5-5.3)
[2023-02-06 04:19] LABS: Phosphorus 3.7 mg/dL (2.5-4.5)
[2023-02-06 04:22] LABS: Albumin 2.8 g/dL (3.5-5.0); C Reactive Protein 1.3 mg/dL (<1.0); Calcium 8.2 mg/dL (8.4-10.2); Potassium 4.7 mmol/L (3.5-5.1); Total Bilirubin 0.3 mg/dL (0.2-1.3); Total Protein 6.1 g/dL (6.3-8.2)
[2023-02-06 05:30] LABS: Glucose,Whole Blood 334 mg/dL (70-110)
[2023-02-06] MEDS: HYDROmorphone 1 MG/ML 1 ML SYRINGE IVP PRN ×6 (05:30→21:05)
[2023-02-06] MEDS: INSULIN ASPART (NovoLOG) 100 UNIT/ML VIAL SQ SCH ×3 (06:17→17:48)
[2023-02-06] MEDS: DEXTROSE 5% IN WATER 1,000 ML IV SCH (06:25)
[2023-02-06] MEDS: IPRATROPIUM-ALBUTEROL 3 ML NEB INHALATION SCH ×4 (07:45→21:35)
[2023-02-06] MEDS ORDERED: ACETAMINOPHEN IV (For NPO) 1,000 MG in EMPTY BAG 1 BAG IVPB PRN (08:19)
--- NOTE | 2023-02-06 08:30 | P.PN ---
Subjective Progress Note Date: 02/06/23 Principal diagnosis: Abdominal pain This is a 67-year-old female who presented to the emergency department with complaints of abdominal pain and had not had a bowel movement for multiple days. Patient was found to have an ischemic bowel. She did have a total abdominal colectomy with ileostomy by Dr. Larsen. She did require mechanical ventilation. She does have a significant history of COPD and diabetes, and is a tobacco user. 01/29/23 Yesterday patient had a cardiac arrest while undergoing a computed tomography scan. 3 L of brown fluid removed from NG tube. Ileus was found on the computed tomography scan. Patient is reintubated and remains in the ICU. 01/30/23 Patient remains intubated. She still having significant dark output from NG tube. Plan today is for a PICC line for TPN. 02/01/23 She was extubated on Sunday night. She is currently on 2 L nasal cannula. She is seen laying in bed this morning awake and alert, but is not able to identify the date today. Still having some dark output from NG tube. 02/05/23 Patient remains in ICU. She is seen this morning sitting up in bed. NG tube was removed yesterday. Ostomy is having good output. Patient more alert today than last week. 02/06/22 Patient continues to improve, will be transferred out of ICU today. Vital signs are stable and she is on room air. Ostomy still having good output. Patient is awake and alert today. She remains on TPN. Blood sugars continue to be in the 300s. Objective - Vital Signs Vital signs: Vital Signs Temp 98.1 F 02/06/23 04:00 Pulse 80 02/06/23 07:55 Resp 18 02/06/23 07:00 BP 147/73 02/06/23 07:00 Pulse Ox 96 02/06/23 07:00 FiO2 40 01/30/23 12:00 Intake & Output 02/05/23 02/06/23 02/06/23 18:59 06:59 18:59 Intake Total 2597 1840 120 Output Total 3900 2425 100 Balance -1303 -585 20 Weight 77.7 kg 79 kg Intake: IV 1097 1840 120 ACETAMINOPHEN IV (For NPO 200 ) 1,000 mg In Empty Bag 1 bag @ 400 mls/hr IVPB Q6H [facility] Rx#:[id number] Cefepime 2 gm In Sodium 100 Chloride 0.9% 100 ml @ 25 mls/hr IVPB Q12HR [facility] Rx #:[id number] Dextrose 5% in Water 1, 600 600 50 000 ml @ 50 mls/hr IV . Q20H [facility] Rx#:[id number] Mvi, Adult No.4 with Vit 427 K 10 ml Trace (Conc-1Ml/ Dose) 1 ml Sodium Acetate 34 meq Potassium Chloride 20 meq Calcium Gluconate 1 gm Magnesium Sulfate gm 0.5 gm In Amino Acid 4.25%-D10w 1, 000 ml @ 61 mls/hr IV .BY DURATION [facility] Rx#: [id number] Sodium Acetate 30 meq 70 840 70 Potassium Acetate 50 meq Calcium Gluconate 1 gm Magnesium Sulfate gm 1 gm Potassium Phosphate 6 mmol In Amino Acid 5%- D15w 1,000 ml @ 70 mls/hr IV .BY DURATION [facility] Rx#: [id number] metroNIDAZOLE-NS PMX 500 100 mg In Saline 1 100ml.bag @ 100 mls/hr IVPB Q8HR [facility] Rx#:[id number] Oral 1500 Output: Urine 1400 1500 100 Stool 2500 925 Other: Voiding Method Indwelling Catheter Indwelling Catheter ABP, PAP, CO, CI - Last Documented Arterial Blood Pressure 162/42 - Constitutional General appearance: Present: cooperative, no acute distress - EENT Eyes: Present: EOMI, PERRLA - Neck Neck: Present: normal ROM. Absent: lymphadenopathy, rigidity - Respiratory Respiratory: bilateral: CTA - Cardiovascular Rhythm: regular Heart sounds: normal: S1, S2 - Gastrointestinal General gastrointestinal: Present: soft - Integumentary Integumentary: Present: normal, normal turgor - Musculoskeletal Musculoskeletal: Present: generalized weakness - Psychiatric Psychiatric: Present: A&O x's 3, appropriate affect, intact judgment & insight - Labs CBC & Chem 7: 02/06/23 03:32 02/06/23 03:32 Labs: Abnormal Lab Results - Last 24 Hours (Table) 02/05/23 02/05/23 02/05/23 Range/Units 09:12 11:36 18:33 WBC (3.8-10.6) k/uL RBC (3.80-5.40) m/uL Hgb (11.4-16.0) gm/dL Hct (34.0-46.0) % Neutrophils # (1.3-7.7) k/uL Sodium (137-145) mmol/L Chloride (98-107) mmol/L BUN (7-17) mg/dL Glucose (74-99) mg/dL POC Glucose (mg/dL) 207 H 446 H (70-110) mg/dL Calcium (8.4-10.2) mg/dL Alkaline Phosphatase (38-126) U/L C-Reactive Protein (<1.0) mg/dL Total Protein (6.3-8.2) g/dL Albumin (3.5-5.0) g/dL Procalcitonin 0.71 H (0.02-0.09) ng/mL 02/05/23 02/06/23 02/06/23 Range/Units 23:40 03:32 03:32 WBC 13.0 H (3.8-10.6) k/uL RBC 3.11 L (3.80-5.40) m/uL Hgb 9.2 L (11.4-16.0) gm/dL Hct 29.2 L (34.0-46.0) % Neutrophils # 10.3 H (1.3-7.7) k/uL Sodium 130 L (137-145) mmol/L Chloride 97 L (98-107) mmol/L BUN 33 H (7-17) mg/dL Glucose 321 H (74-99) mg/dL POC Glucose (mg/dL) 391 H (70-110) mg/dL Calcium 8.2 L (8.4-10.2) mg/dL Alkaline Phosphatase 186 H (38-126) U/L C-Reactive Protein 1.3 H (<1.0) mg/dL Total Protein 6.1 L (6.3-8.2) g/dL Albumin 2.8 L (3.5-5.0) g/dL Procalcitonin (0.02-0.09) ng/mL 02/06/23 Range/Units 05:28 WBC (3.8-10.6) k/uL RBC (3.80-5.40) m/uL Hgb (11.4-16.0) gm/dL Hct (34.0-46.0) % Neutrophils # (1.3-7.7) k/uL Sodium (137-145) mmol/L Chloride (98-107) mmol/L BUN (7-17) mg/dL Glucose (74-99) mg/dL POC Glucose (mg/dL) 334 H (70-110) mg/dL Calcium (8.4-10.2) mg/dL Alkaline Phosphatase (38-126) U/L C-Reactive Protein (<1.0) mg/dL Total Protein (6.3-8.2) g/dL Albumin (3.5-5.0) g/dL Procalcitonin (0.02-0.09) ng/mL Assessment and Plan (1) Ischemic bowel disease Current Visit: Yes Status: Acute Code(s): K55.9 - VASCULAR DISORDER OF INTESTINE, UNSPECIFIED SNOMED Code(s): 62122578 (2) COPD (chronic obstructive pulmonary disease) Current Visit: No Status: Acute Code(s): J44.9 - CHRONIC OBSTRUCTIVE PULMONARY DISEASE, UNSPECIFIED SNOMED Code(s): 64084267 (3) Type 2 diabetes mellitus Current Visit: No Status: Acute Code(s): E11.9 - TYPE 2 DIABETES MELLITUS WITHOUT COMPLICATIONS SNOMED Code(s): 36424825 (4) Ischemic colitis Current Visit: Yes Status: Acute Code(s): K55.9 - VASCULAR DISORDER OF INTESTINE, UNSPECIFIED SNOMED Code(s): 65174495 (5) History of below-knee amputation of right lower extremity Current Visit: No Status: Acute Code(s): Z89.511 - ACQUIRED ABSENCE OF RIGHT LEG BELOW KNEE SNOMED Code(s): 538528374491648 (6) Opioid dependence Current Visit: No Status: Acute Code(s): F11.20 - OPIOID DEPENDENCE, UNCOMPLICATED SNOMED Code(s): 22451157 Plan: Appreciate multiple consultants. Check labs in the a.m. Patient will be transferred out of ICU today. Will increase Levemir dose to 42 units twice a day. Patient seen and evaluated by nurse practitioner, physician in agreement with plan
[2023-02-06] MEDS: PANTOPRAZOLE 40 MG/10 ML VIAL IV SCH (08:44)
[2023-02-06] MEDS: metroNIDAZOLE-NS PMX 500 MG in SALINE 1 100ML.BAG IVPB SCH ×3 (08:44→23:18)
[2023-02-06] MEDS: 1: MVI, ADULT NO.4 WITH VIT K 10 ML, TRACE (CONC-1ML/DOSE) 1 ML, SODIUM ACETATE 30 MEQ, IV SCH ×8 (08:46)
[2023-02-06] MEDS: ENOXAPARIN 30 MG/0.3 ML SYRINGE SQ SCH (09:14)
[2023-02-06] MEDS: CEFEPIME 2 GM in SODIUM CHLORIDE 0.9% 100 ML IVPB SCH ×3 (09:14→23:18)
[2023-02-06] MEDS: NICOTINE 21MG/24HR PATCH TRANSDERM SCH (09:14)
[2023-02-06] MEDS: GABAPENTIN 100 MG CAP PO SCH ×2 (09:15→20:27)
[2023-02-06] MEDS: LEVOTHYROXINE 88 MCG TAB PO SCH (09:15)
[2023-02-06] MEDS: hydrALAZINE HCL 50 MG TAB PO SCH ×3 (09:15→21:14)
[2023-02-06] MEDS: amLODIPine 10 MG TAB PO SCH (09:15)
[2023-02-06] MEDS: SIMETHICONE 80 MG CHEWABLE PO SCH ×2 (09:17→10:36)
[2023-02-06] MEDS: predniSONE 20 MG TAB PO SCH (09:17)
[2023-02-06] MEDS: INSULIN DETEMIR (LEVEMIR) 100 UNIT/ML SYR SQ SCH ×3 (09:18→21:16)
[2023-02-06] MEDS: ALVIMOPAN 12 MG CAPSULE PO SCH ×2 (09:19→20:26)
[2023-02-06] MEDS: SODIUM BICARBONATE TAB 650 MG TAB PO SCH ×2 (09:56→20:27)
--- NOTE | 2023-02-06 10:16 | P.PN ---
Subjective Progress Note Date: 02/06/23 67-year-old female patient is being seen in follow-up on 01/22/2023. A complicated case of abdominal distention, stooling infection requiring surgical intervention along with multiple medical problems and comorbidities P she initially presented to us with abdominal pain and she has not had a bowel moveme nt for more than a week. She had significant abdominal distention. She was taken to the operating room and the patient underwent laparotomy, lysis of adhesions, total colectomy, ileostomy and the patient is currently postop day #3. She has been intubated and kept on a mechanical ventilator since. For now, the patient is still on a mechanical ventilator. She is a propofol which is running at 35 mcg/kg/m and she is adequately sedated and symptoms mechanical ventilator. She is on assist-control mode of mechanical ventilation at the rate of 24 with a rate of 24, tidal volume of 400, FiO2 of 30% and a PEEP of 5. Chest x-ray shows cardiomegaly. Some limited infiltrates in the left lung base and the right lower lobe lateral segment. Orotracheal tube is in a good location. The patient also has a triple-lumen catheter in the left subclavian. NG tube is also in good location. For now, the output from the NG tube is minimal. Her IV fluids are running at a rate of 75 mL an hour and the fluid is in the form of a bicarb infusion. She is on no pressors at this point in time in the urine output is in order of 5200 mL an hour. In terms of her electrolytes, the patient's sodium level has been dropping and it's down to 129. BUN is at 40 with a creatinine of 3.47 and a potassium level is at 4.2. Her serum bicarb is improved. She was as low as 13 and she is currently up to 20. Nevertheless, she is developing an acute kidney injury. Her creatinine at time of admission was 1.8 from a normal baseline. She has developed that he worsening of renal function the creatinine is up to 3.47. CAT scan of the abdomen and the pelvis that was done on 01/19/2023 showed no evidence of any hydronephrosis he had she had pancolonic distention with cecum dilatation which was up to 9.4 cm in size. At the same time, her white cell count has dropped down to 17.9 from as high as 25. Hemoglobin is stable at 9.2 and a platelet count is at 159. In terms of cultures, sputum culture has been negative. Abdominal wound cultures were taken and that is also still pending for now and the patient is covered with IV Zosyn. She is afebrile. She is having episodes of low-grade fever. She is on IV Tylenol. She remains hemodynamically stable. The patient remains nothing by mouth for now. The patient has a YASMINE drain located in the left lower quadrant and the output is in order of 200 mL over the past 8 hours. The output is serosanguineous. Her lactic acid level dropped from 7.3 down to 1.8. Blood sugars under adequate control and the patient is taking NovoLog insulin sliding scale coverage. She takes Lantus 55 units twice a day at home. She is also on a combination of Seroquel and Topamax and Prozac at home. On 01/26/2023, the patient is postop day #7. She remains on oxygen at 2 L/m nasal cannula. She is still on TPN for nutritional support. At the same time the patient was given soft and chopped diet with one-to-one supervision. She is able to swallow. She is not meeting her requirements. NG tube was removed yesterday. Ileostomy is functional and there is positive output. She has no specific complaints. She is communicating at this point in time. She is he modynamically stable. She is off the Cleviprex drip. She is on insulin signs good coverage and she is also on IV Zosyn.Blood work today shows a WD skeletal 11.3, hemoglobin 9.3 and a platelet count of 224. Sodium is at 132 with a potassium level of 3.2, BUN is 39 and the creatinine is 1.47. Sugar is 238. The patient is on Levemir insulin 30 units twice a day and she also taken a slight scale coverage. IV fluids and the form of normal saline at rate of 20 mL an hour. She is on Lovenox 30 mg subcu for DVT prophylaxis. The output from the YASMINE drain is serosanguineous and in the order of 70 mL overnight. On 01/27/2023, the patient is postoperative day #8. She is on room air oxygen for now. Doing well. TPN was discontinued and the patient is currently tolerating diet and her ileostomy is functional. No other new complaints otherwise for now. The YASMINE drain is still in place and output is serosanguineous. Hemodynamically stable. No new labs are available from today. Communicating although she is overall weak and somewhat lethargic. Remains on IV Zosyn. Remains on Lovenox for DVT prophylaxis. Remains on Levemir insulin 30 units twice a day and the NovoLog signs good coverage. 01/28/2023, the patient is postop day #9. She is awake and alert and communicating. She was taken off the TPN and currently she is tolerating oral intake. Her ileostomy is functional. YASMINE drains are in place and output is serosanguineous. She is overall weak and she is showing some progress on a daily basis. White cell count was 22 with a hemoglobin 10.2 and a platelet count of 366. BUN is 49 with a creatinine of 2.07 and sodium levels of 1:30. Potassium levels at 4.9. No other new complaints otherwise for now. She is hemodynamically stable. . Dilaudid for pain control. Levemir insulin 30 units twice a day plus a sliding scale coverage. Patient was reevaluated today on 01/29/2023, patient developed an episode of arrest yesterday, she had a 5 minute pulseless electrical activity, patient had to be intubated and mechanically ventilated. Patient had a cardiac arrest while undergoing a computed tomography scan. 3 ML's of brown fluid removed from the nasogastric tube patient was found to have ileus on the CT of the abdomen and pelvis. Received so far for fluids of IV fluids her down time was 3-5 minutes, her ventilator settings today are assist control rate of 24 pressure support of mechanical ventilation with PI of 22, inspiratory time is 0.9 FiO2 is 50%. And PEEP of 5. ABG showed a pO2 of 109 pCO2 of 30 pH of 7.38 hence FiO2 was cut down to 45%. Patient is receiving bicarb drip, she is supposed to have a PICC line placed today. Patient is status post colectomy for ischemic bowel and she was extubated at one point on 02/02. Yesterday she developed a sudden downhill course. She continues to have a functional colostomy, and she has a YASMINE drain in place. Patient remains on daptomycin and Zosyn. She is on propofol at 55 mcg/kg/m she is off norepinephrine today. And she is receiving mostly fluids. WBC count today is 20.8 hemoglobin is 8.4, electrolytes are normal BUN is 46 creatinine 2.14. Chest x-ray is suspicious for a right sideddisease/infiltrate/aspiration pneumonia although the possibility of interstitial edema is not entirely ruled out. But felt to be less likely. Endotracheal tube seems to be sitting up high in the trachea and i t will be advanced to COPD Patient was reevaluated today on 01/30/2023, remains in the ICU, intubated and mechanically ventilated. Patient is on pressure control mode of mechanical ventilation with a rate of 24 PI of 22 inspiratory time of 0.9 FiO2 45% and PEEP of 5 ABG showed a pO2 of 106 pCO2 31 pH of 7.45 hence I recommended cutting down the FiO2 to 40%. Patient remains on norepinephrine at 0.08 propofol at 55 mcg/kg/m, bicarb at 75 mL per hour. Considering her bicarb is better today, I'm recommending we stop the bicarb drip. Patient seems to have functional ileostomy nonetheless she continues to have significant output via nasogastric tube. She had 700 mL out on the last shift. She is still quite sedated, and my plan today is to consider a weaning trial if possible off sedation or at least on a lower dose of propofol. Continues to have leukocytosis with WBC count 24.3, hemoglobin is 7.5. Basic metabolic profile is normal bicarb is 21 BUN is 37 creatinine 1.80, steadily improving over the last 2 days. Patient remains on antibiotics in the form of Zosyn, and axis, and daptomycin. This is mostly for ongoing abdominal sepsis. Patient seems to have adequate output in the ileostomy. Chest x-ray is showing improvement in her right lower lobe pneumonia. Sputum is positive for gram-negative bacilli final identification is pending Reevaluated today on 01/31/2023, patient remains in the ICU, she was extubated yesterday, tolerated the extubation well. She is now on 2 L nasal cannula, she is on clevidipine at 3 mg per hour for elevated blood pressure the patient cannot take much orally. Continues to have nasogastric tube in place, still having significant amount of suctioning from the nasogastric tube. She has ostomy that seems to be functional patient is on TPN at 50 mL per hour still on Zosyn and daptomycin she is wheezing, and her chest x-ray showed bilateral infiltrates right more so than left, I suppose the patient had aspiration pneumonia , on proper antibiotics. Renal profile is normal bicarb is 21 Reevaluated today on 02/01/2023, patient remains extubated remains in the ICU, marginal clinical status. Patient continues to have nasogastric tube in place, continues to have ileus based on her flat plate of the abdomen, blood pressure remains high and she is requiring clevidipine at 6 mg per hour. Patient is receiving TPN since we we cannot start enteral feeding mostly because of an ileus. IV fluids remains at KVO patient remains on multiple antibiotics including Flagyl, cefepime and axis. For her blood pressure and recommending clonidine patch him also recommending and Norvasc. Patient is a bit agitated today but she comes down after I talked to her. Continues to have leukocytosis with WBC count of 52 hemoglobin is 10.2, and I believe her leukocytosis is secondary to her abdominal sepsis/ileus and secondary to aspiration pneumonia. Basic metabolic profile is normal and renal profile is normal Reevaluated today on 02/02/2023, remains in the ICU, remains on clevidipine drip at 6 mg per hour. Remains on TPN for her ileus. Continues to have findings of ileus in spite of functioning ostomy. Continues to have output via nasogastric tube also consistent with ileus. Patient was placed on clonidine and Norvasc and hydralazine for her high blood pressure hoping to get rid of clevidipine. Patient continues to have good urine output her pulmonary status is marginal patient is on 2 L nasal cannula, O2 saturations 95%. Patient denies any specific symptoms is relatively asymptomatic intermittently gets agitated. WBC count is coming down to 24.5 hemoglobin is 10.9 electrolytes are normal renal profile is normal liver profile is relatively normal. Blood sugar is 277 chest x-ray continues to show evidence of right sided pneumonia consistent with aspiration pneumonia, abdominal film is showing numerous dilated bowel loops consistent with previous Reevaluated today on 02/03/2023, patient remains in the ICU, remains on c levidipine at 5 mg per hour. Continues to have significant nasogastric tube output over 300 in the last shift. Her ostomy seems to be functioning well. Patient continues to have what seems to be a hyperchloremic non-anion gap metabolic acidosis. Continues on TPN, at 50 mL per hour. Clinically the patient is not in distress, she is on room air. ABG showed a pO2 of 67 pCO2 29 pH of 7.44 bicarb on the ABG is 21. Renal profile is back to normal creatinine is 0.72 Reevaluated today on , remains in the ICU, feeling better, her nasogastric output seems to be less and less in the last 24 hours, hence surgeries considering clamping the tube and possibly remove it sometime later today. Remains on clevidipine drip at 4 mg per hour. Remains on Flagyl and cefepime. Her ostomy output seems to be reasonable nonetheless the patient had significant nasogastric tube output over the last few days but seems to be less in the last 24 hours. Labs today were basically unremarkable, bicarb is 22 electrolytes are normal renal profile is normal and liver profile seems to be normal. The patient is seen today 02/05/2023 in follow-up in the intensive care unit. She is awake and alert in no acute distress. Currently maintaining O2 saturations in the 90s on room air. She is being nourished with TPN at 61 ML's per hour. D5W at 50 mL per hour. Her clevidipine has been weaned off. She remains on cefepime, Eraxis and Flagyl. She's been recovering from her surgery for a small bowel obstruction that was performed on 01/19/2023 which was a small bowel resection, ileostomy, colectomy, lysis of adhesions. Acute abdomen series is pending. White count 16.8. Hemoglobin 10.0. Sodium 140. Potassium 4.3. Bicarb 24. BUN 33. Creatinine 0.85. Glucose 137. The patient is seen today 02/06/2023 in follow-up in the intensive care unit. She is resting comfortably in bed. Awake and alert in no acute distress. Maintaining O2 saturations in the 90s on room air. She's been nourished with TPN at 70 ML's per hour. D5W at 50 MLS per hour. Small bowel series revealed dilated jejunal loops extending to the distal jejunum or proximal ileum while there appears to be a transition zone and then normalized small bowel distally extending to the patient's ostomy. Findings may reflect moderate grade obstruction. Ostomy is functioning. Sputum culture was positive for Enterobacter aerogenes. Culture from the YASMINE drain revealed no growth. Blood cultures reveal no growth. She remains on bronchodilators. Antibiotics in the form of cefepime. Lovenox for DVT prophylaxis. Objective - Vital Signs Vital signs: Vital Signs Temp 98.2 F 02/06/23 08:00 Pulse 90 02/06/23 08:00 Resp 20 02/06/23 08:00 BP 149/69 02/06/23 08:00 Pulse Ox 93 L 02/06/23 08:00 FiO2 40 01/30/23 12:00 Intake & Output 02/05/23 02/06/23 02/06/23 18:59 06:59 18:59 Intake Total 2597 1840 1244 Output Total 3900 2425 400 Balance -1303 -585 844 Weight 77.7 kg 79 kg Intake: IV 1097 1840 190 ACETAMINOPHEN IV (For NPO 200 ) 1,000 mg In Empty Bag 1 bag @ 400 mls/hr IVPB Q6H [facility] Rx#:[id number] Cefepime 2 gm In Sodium 100 Chloride 0.9% 100 ml @ 25 mls/hr IVPB Q12HR [facility] Rx #:[id number] Dextrose 5% in Water 1, 600 600 50 000 ml @ 50 mls/hr IV . Q20H [facility] Rx#:[id number] Mvi, Adult No.4 with Vit 427 K 10 ml Trace (Conc-1Ml/ Dose) 1 ml Sodium Acetate 34 meq Potassium Chloride 20 meq Calcium Gluconate 1 gm Magnesium Sulfate gm 0.5 gm In Amino Acid 4.25%-D10w 1, 000 ml @ 61 mls/hr IV .BY DURATION [facility] Rx#: [id number] Sodium Acetate 30 meq 70 840 140 Potassium Acetate 50 meq Calcium Gluconate 1 gm Magnesium Sulfate gm 1 gm Potassium Phosphate 6 mmol In Amino Acid 5%- D15w 1,000 ml @ 70 mls/hr IV .BY DURATION [facility] Rx#: [id number] metroNIDAZOLE-NS PMX 500 100 mg In Saline 1 100ml.bag @ 100 mls/hr IVPB Q8HR [facility] Rx#:[id number] Intake, IV Titration 1054 Amount Sodium Acetate 30 meq 1054 Potassium Acetate 50 meq Calcium Gluconate 1 gm Magnesium Sulfate gm 1 gm Potassium Phosphate 6 mmol In Amino Acid 5%- D15w 1,000 ml @ 70 mls/hr IV .BY DURATION [facility] Rx#: [id number] Oral 1500 Output: Urine 1400 1500 275 Stool 2500 925 125 Other: Voiding Method Indwelling Catheter Indwelling Catheter Indwelling Catheter ABP, PAP, CO, CI - Last Documented Arterial Blood Pressure 162/42 - Exam GENERAL EXAM: Alert, 67-year-old female, resting in bed, on room air, comfortable in no apparent distress. HEAD: Normocephalic. EYES: Normal reaction of pupils, equal size. NOSE: Nasogastric tube remains secured in place. Clear with pink turbinates. THROAT: No erythema or exudates. NECK: No masses, no JVD. CHEST: No chest wall deformity. LUNGS: Equal air entry with no crackles, wheeze, rhonchi or dullness. CVS: S1 and S2 normal with no audible murmur, regular rhythm. ABDOMEN: Ileostomy with output, incision clean and dry, normal bowel sounds, no guarding or rigidity. SPINE: No scoliosis or deformity SKIN: No rashes CENTRAL NERVOUS SYSTEM: No focal deficits, tone is normal in all 4 extremities. EXTREMITIES: Right [id number] amputation. There is no peripheral edema. No clubbing, no cyanosis. Peripheral pulses are intact. - Labs CBC & Chem 7: 02/06/23 03:32 02/06/23 03:32 Labs: Abnormal Lab Results - Last 24 Hours (Table) 02/05/23 02/05/23 02/05/23 Range/Units 09:12 11:36 18:33 WBC (3.8-10.6) k/uL RBC (3.80-5.40) m/uL Hgb (11.4-16.0) gm/dL Hct (34.0-46.0) % Neutrophils # (1.3-7.7) k/uL Sodium (137-145) mmol/L Chloride (98-107) mmol/L BUN (7-17) mg/dL Glucose (74-99) mg/dL POC Glucose (mg/dL) 207 H 446 H (70-110) mg/dL Calcium (8.4-10.2) mg/dL Alkaline Phosphatase (38-126) U/L C-Reactive Protein (<1.0) mg/dL Total Protein (6.3-8.2) g/dL Albumin (3.5-5.0) g/dL Procalcitonin 0.71 H (0.02-0.09) ng/mL 02/05/23 02/06/23 02/06/23 Range/Units 23:40 03:32 03:32 WBC 13.0 H (3.8-10.6) k/uL RBC 3.11 L (3.80-5.40) m/uL Hgb 9.2 L (11.4-16.0) gm/dL Hct 29.2 L (34.0-46.0) % Neutrophils # 10.3 H (1.3-7.7) k/uL Sodium 130 L (137-145) mmol/L Chloride 97 L (98-107) mmol/L BUN 33 H (7-17) mg/dL Glucose 321 H (74-99) mg/dL POC Glucose (mg/dL) 391 H (70-110) mg/dL Calcium 8.2 L (8.4-10.2) mg/dL Alkaline Phosphatase 186 H (38-126) U/L C-Reactive Protein 1.3 H (<1.0) mg/dL Total Protein 6.1 L (6.3-8.2) g/dL Albumin 2.8 L (3.5-5.0) g/dL Procalcitonin (0.02-0.09) ng/mL 02/06/23 Range/Units 05:28 WBC (3.8-10.6) k/uL RBC (3.80-5.40) m/uL Hgb (11.4-16.0) gm/dL Hct (34.0-46.0) % Neutrophils # (1.3-7.7) k/uL Sodium (137-145) mmol/L Chloride (98-107) mmol/L BUN (7-17) mg/dL Glucose (74-99) mg/dL POC Glucose (mg/dL) 334 H (70-110) mg/dL Calcium (8.4-10.2) mg/dL Alkaline Phosphatase (38-126) U/L C-Reactive Protein (<1.0) mg/dL Total Protein (6.3-8.2) g/dL Albumin (3.5-5.0) g/dL Procalcitonin (0.02-0.09) ng/mL Assessment and Plan Assessment: Acute hypoxic respiratory failure secondary to cardiac arrest requiring intubation and mechanical ventilation recovered and on room air Cardiac arrest requiring intubation and mechanical ventilation, patient had a PEA cardiac arrest, down time of 5 minutes. In-hospital cardiac arrest. This occurred on 01/28/2023 Status post exploratory laparotomy, lysis of adhesions, total colectomy, ileostomy, abdominal washout, placement of YASMINE drains, placement of wound VAC postoperative day # 16 patient was extubated after this surgery on 01/23/2023 and has been off mechanical ventilation until 01/28 requiring reintubation because of PEA. Patient was extubated again on 01/30/2023. Acute kidney injury improving this is mostly a picture of acute tubular necrosis. 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 History of type 2 diabetes Stress incontinence Hypothyroidism Dyslipidemia History of depression Suspect acute aspiration pneumonia, sputum cultures have been positive for Enterobacter aerogenes, sensitive to cefepime Acute exacerbation of COPD Chronic tobacco dependence Plan: The patient was seen and evaluated Medications and labs reviewed Remains on TPN for nutritional support Currently stable and on room air Antibiotics per ID services To be transferred to the regular medical floor today We will continue to follow I have personally seen and examined the patient, performed the documentation and the assessment and plan as written. Number of minutes spent on the visit: 10.
[2023-02-06 11:09] LABS: Glucose,Whole Blood 244 mg/dL (70-110)
--- NOTE | 2023-02-06 11:15 | P.PN ---
Subjective Patient is seen for follow-up for acute kidney injury. Status post emergent explorative laparotomy and lysis of adhesions with total abdominal colectomy and end ileostomy on 01/19/2023 She is currently awake, comfortable. Renal function has improved significantly. Urine output at 80-100 ML per hour now. Serum creatinine down to 0.8 Sodium 130 today.Was maintained on D5W. Discontinued today Maintained on TPN Objective - Vital Signs Vital signs: Vital Signs Temp 98.2 F 02/06/23 08:00 Pulse 90 02/06/23 08:00 Resp 20 02/06/23 08:00 BP 149/69 02/06/23 08:00 Pulse Ox 93 L 02/06/23 08:00 FiO2 40 01/30/23 12:00 Intake & Output 02/05/23 02/06/23 02/06/23 18:59 06:59 18:59 Intake Total 2597 1840 1244 Output Total 3900 2425 400 Balance -1303 -585 844 Weight 77.7 kg 79 kg Intake: IV 1097 1840 190 ACETAMINOPHEN IV (For NPO 200 ) 1,000 mg In Empty Bag 1 bag @ 400 mls/hr IVPB Q6H [facility] Rx#:[id number] Cefepime 2 gm In Sodium 100 Chloride 0.9% 100 ml @ 25 mls/hr IVPB Q12HR [facility] Rx #:[id number] Dextrose 5% in Water 1, 600 600 50 000 ml @ 50 mls/hr IV . Q20H [facility] Rx#:[id number] Mvi, Adult No.4 with Vit 427 K 10 ml Trace (Conc-1Ml/ Dose) 1 ml Sodium Acetate 34 meq Potassium Chloride 20 meq Calcium Gluconate 1 gm Magnesium Sulfate gm 0.5 gm In Amino Acid 4.25%-D10w 1, 000 ml @ 61 mls/hr IV .BY DURATION [facility] Rx#: [id number] Sodium Acetate 30 meq 70 840 140 Potassium Acetate 50 meq Calcium Gluconate 1 gm Magnesium Sulfate gm 1 gm Potassium Phosphate 6 mmol In Amino Acid 5%- D15w 1,000 ml @ 70 mls/hr IV .BY DURATION [facility] Rx#: [id number] metroNIDAZOLE-NS PMX 500 100 mg In Saline 1 100ml.bag @ 100 mls/hr IVPB Q8HR [facility] Rx#:[id number] Intake, IV Titration 1054 Amount Sodium Acetate 30 meq 1054 Potassium Acetate 50 meq Calcium Gluconate 1 gm Magnesium Sulfate gm 1 gm Potassium Phosphate 6 mmol In Amino Acid 5%- D15w 1,000 ml @ 70 mls/hr IV .BY DURATION [facility] Rx#: [id number] Oral 1500 Output: Urine 1400 1500 275 Stool 2500 925 125 Other: Voiding Method Indwelling Catheter Indwelling Catheter Indwelling Catheter ABP, PAP, CO, CI - Last Documented Arterial Blood Pressure 162/42 - Exam Patient is awake, comfortable Examination of the heart S1 and S2 Examination of the lungs bilateral breath sounds are heard Abdomen is soft it is currently dressed Drains are noted. Examination lower extremity shows right BKA. No significant edema noted [employer] examination grossly intact - Labs CBC & Chem 7: 02/06/23 03:32 02/06/23 03:32 Labs: Abnormal Lab Results - Last 24 Hours (Table) 02/05/23 02/05/23 02/05/23 Range/Units 09:12 11:36 18:33 WBC (3.8-10.6) k/uL RBC (3.80-5.40) m/uL Hgb (11.4-16.0) gm/dL Hct (34.0-46.0) % Neutrophils # (1.3-7.7) k/uL Sodium (137-145) mmol/L Chloride (98-107) mmol/L BUN (7-17) mg/dL Glucose (74-99) mg/dL POC Glucose (mg/dL) 207 H 446 H (70-110) mg/dL Calcium (8.4-10.2) mg/dL Alkaline Phosphatase (38-126) U/L C-Reactive Protein (<1.0) mg/dL Total Protein (6.3-8.2) g/dL Albumin (3.5-5.0) g/dL Procalcitonin 0.71 H (0.02-0.09) ng/mL 02/05/23 02/06/23 02/06/23 Range/Units 23:40 03:32 03:32 WBC 13.0 H (3.8-10.6) k/uL RBC 3.11 L (3.80-5.40) m/uL Hgb 9.2 L (11.4-16.0) gm/dL Hct 29.2 L (34.0-46.0) % Neutrophils # 10.3 H (1.3-7.7) k/uL Sodium 130 L (137-145) mmol/L Chloride 97 L (98-107) mmol/L BUN 33 H (7-17) mg/dL Glucose 321 H (74-99) mg/dL POC Glucose (mg/dL) 391 H (70-110) mg/dL Calcium 8.2 L (8.4-10.2) mg/dL Alkaline Phosphatase 186 H (38-126) U/L C-Reactive Protein 1.3 H (<1.0) mg/dL Total Protein 6.1 L (6.3-8.2) g/dL Albumin 2.8 L (3.5-5.0) g/dL Procalcitonin (0.02-0.09) ng/mL 02/06/23 02/06/23 Range/Units 05:28 11:07 WBC (3.8-10.6) k/uL RBC (3.80-5.40) m/uL Hgb (11.4-16.0) gm/dL Hct (34.0-46.0) % Neutrophils # (1.3-7.7) k/uL Sodium (137-145) mmol/L Chloride (98-107) mmol/L BUN (7-17) mg/dL Glucose (74-99) mg/dL POC Glucose (mg/dL) 334 H 244 H (70-110) mg/dL Calcium (8.4-10.2) mg/dL Alkaline Phosphatase (38-126) U/L C-Reactive Protein (<1.0) mg/dL Total Protein (6.3-8.2) g/dL Albumin (3.5-5.0) g/dL Procalcitonin (0.02-0.09) ng/mL Assessment and Plan Assessment: 1. Acute kidney injury, ischemic ATN currently nonoliguric. Improved. No renal abnormalities mentioned on CT. UA shows WBCs 33, 2+ protein no blood. UOP was high from post ATN diuresis, now 80-100ml/hr. Cr down to 0.8 mg/dL 2. Septic shock associated with ischemic bowel 3. Lactic acidosis and anion gap metabolic acidosis associated with ischemic ankita wel septic shock and acute kidney injury 4. Status post PEA on 01/28/2023 5. Acute hypoxic respiratory failure, status post extubation 6. Hypokalemia associated with post-ATN diuresis, being replaced 7. Hypertension currently maintained on hydralazine and off of cleviprex drip Plan: Agree with discontinuation of D5W Repeat labs in a.m. Continue current dose of hydralazine and watch for edema
[2023-02-06] MEDS: ACETAMINOPHEN TAB 500 MG TAB PO SCH ×3 (12:13→20:27)
--- NOTE | 2023-02-06 13:49 | P.PN ---
Subjective Progress Note Date: 02/06/23 CHIEF COMPLAINT: Acute abdomen with ischemic bowel HISTORY OF PRESENT ILLNESS: Patient is status post exploratory laparotomy with total abdominal colectomy and end ileostomy, lysis of adhesions on 01/19/23. Patient remains in the ICU. Afebrile. NG tube is out. Patient having liquidy stool from ostomy. She has been downgraded to MedSurg. Patient had complained of chest pain with movement earlier in the morning that improved with pain medication. WBC 16.8 down to 13 hemoglobin 9.2 platelets 325 sodium is 130 potassium is 4.7 creatinine 0.89. Small bowel follow-through had shown dilated jejunal loops extending to the distal jejunum or proximal ileum where there appears to be a transition zone and then normalized small bowel distally extended to the patient's ostomy. Findings may reflect a moderate grade obstruction. Findings were reviewed with Dr. Larsen. Patient is likely still dealing with an ileus. Doubt bowel obstruction. YASMINE drain with 15 mL serous output. Today's abdominal x-ray pending. PHYSICAL EXAM: VITAL SIGNS: Reviewed GENERAL: Well-developed in no acute distress. HEENT: No sclera icterus. Moist buccal mucosa. Head is atraumatic, normocephalic. NECK: Supple without lymphadenopathy. CHEST: Non-labored respirations and equal bilateral excursions. CARDIOVASCULAR: Palpable 2+ radial pulses. ABDOMEN: Soft. Nondistended. Optifoam dressing clean and dry. YASMINE drain serous output. liquidy stool present in ostomy MUSCULOSKELETAL: No clubbing or cyanosis. NEUROLOGIC: Patient intubated and sedated PSYCH: Appropriate affect. Alert and oriented to person, place and time. SKIN: Well perfused. Good skin turgor. ASSESSMENT: 1. Acute abdomen with ischemic bowel 2. Hypertensive heart disease with congestive heart failure 3. Morbid obesity due to excess calories, BMI over 34.8 4. Acute renal failure due to dehydration 5. History of lower extremity amputee 6. Chronic obstructive pulmonary disease 7. Diabetes type 2, insulin-dependent with diabetic nephropathy 8. Gastroesophageal reflux disease 9. Hypotension due to hypovolemia 10. Lactic acidosis 11. Septic shock due to bowel 12. Status post total abdominal colectomy 13. Cardiac arrest 14. Severe ileus 15. Suspected aspiration pneumonia PLAN: -Keep patient nothing by mouth -Continue monitor daily abdominal x-rays -Add Entereg -Change Tylenol to oral scheduled for pain -Mylicon chews discontinued because patient has no teeth to chew them -Continue TPN for nutrition support -Continue supportive care -Continue antibiotics per ID -GI prophylaxis Protonix and DVT prophylaxis Lovenox Physician Binitrotoluene Operator note has been reviewed by physician. Signing provider agrees with the documented findings, assessment, and plan of care. Objective - Vital Signs Vital signs: Vital Signs Temp 98.2 F 02/06/23 08:00 Pulse 96 02/06/23 11:10 Resp 20 02/06/23 08:00 BP 149/69 02/06/23 08:00 Pulse Ox 93 L 02/06/23 08:00 FiO2 40 01/30/23 12:00 Intake & Output 02/05/23 02/06/23 02/06/23 18:59 06:59 18:59 Intake Total 2597 1840 1244 Output Total 3900 2425 400 Balance -1303 -585 844 Weight 77.7 kg 79 kg Intake: IV 1097 1840 190 ACETAMINOPHEN IV (For NPO 200 ) 1,000 mg In Empty Bag 1 bag @ 400 mls/hr IVPB Q6H [facility] Rx#:[id number] Cefepime 2 gm In Sodium 100 Chloride 0.9% 100 ml @ 25 mls/hr IVPB Q12HR [facility] Rx #:[id number] Dextrose 5% in Water 1, 600 600 50 000 ml @ 50 mls/hr IV . Q20H [facility] Rx#:[id number] Mvi, Adult No.4 with Vit 427 K 10 ml Trace (Conc-1Ml/ Dose) 1 ml Sodium Acetate 34 meq Potassium Chloride 20 meq Calcium Gluconate 1 gm Magnesium Sulfate gm 0.5 gm In Amino Acid 4.25%-D10w 1, 000 ml @ 61 mls/hr IV .BY DURATION [facility] Rx#: [id number] Sodium Acetate 30 meq 70 840 140 Potassium Acetate 50 meq Calcium Gluconate 1 gm Magnesium Sulfate gm 1 gm Potassium Phosphate 6 mmol In Amino Acid 5%- D15w 1,000 ml @ 70 mls/hr IV .BY DURATION [facility] Rx#: [id number] metroNIDAZOLE-NS PMX 500 100 mg In Saline 1 100ml.bag @ 100 mls/hr IVPB Q8HR [facility] Rx#:[id number] Intake, IV Titration 1054 Amount Sodium Acetate 30 meq 1054 Potassium Acetate 50 meq Calcium Gluconate 1 gm Magnesium Sulfate gm 1 gm Potassium Phosphate 6 mmol In Amino Acid 5%- D15w 1,000 ml @ 70 mls/hr IV .BY DURATION [facility] Rx#: [id number] Oral 1500 Output: Urine 1400 1500 275 Stool 2500 925 125 Other: Voiding Method Indwelling Catheter Indwelling Catheter Indwelling Catheter ABP, PAP, CO, CI - Last Documented Arterial Blood Pressure 162/42 - Labs CBC & Chem 7: 02/06/23 03:32 02/06/23 03:32 Labs: Abnormal Lab Results - Last 24 Hours (Table) 02/05/23 02/05/23 02/05/23 Range/Units 09:12 11:36 18:33 WBC (3.8-10.6) k/uL RBC (3.80-5.40) m/uL Hgb (11.4-16.0) gm/dL Hct (34.0-46.0) % Neutrophils # (1.3-7.7) k/uL Sodium (137-145) mmol/L Chloride (98-107) mmol/L BUN (7-17) mg/dL Glucose (74-99) mg/dL POC Glucose (mg/dL) 207 H 446 H (70-110) mg/dL Calcium (8.4-10.2) mg/dL Alkaline Phosphatase (38-126) U/L C-Reactive Protein (<1.0) mg/dL Total Protein (6.3-8.2) g/dL Albumin (3.5-5.0) g/dL Procalcitonin 0.71 H (0.02-0.09) ng/mL 02/05/23 02/06/23 02/06/23 Range/Units 23:40 03:32 03:32 WBC 13.0 H (3.8-10.6) k/uL RBC 3.11 L (3.80-5.40) m/uL Hgb 9.2 L (11.4-16.0) gm/dL Hct 29.2 L (34.0-46.0) % Neutrophils # 10.3 H (1.3-7.7) k/uL Sodium 130 L (137-145) mmol/L Chloride 97 L (98-107) mmol/L BUN 33 H (7-17) mg/dL Glucose 321 H (74-99) mg/dL POC Glucose (mg/dL) 391 H (70-110) mg/dL Calcium 8.2 L (8.4-10.2) mg/dL Alkaline Phosphatase 186 H (38-126) U/L C-Reactive Protein 1.3 H (<1.0) mg/dL Total Protein 6.1 L (6.3-8.2) g/dL Albumin 2.8 L (3.5-5.0) g/dL Procalcitonin (0.02-0.09) ng/mL 02/06/23 02/06/23 Range/Units 05:28 11:07 WBC (3.8-10.6) k/uL RBC (3.80-5.40) m/uL Hgb (11.4-16.0) gm/dL Hct (34.0-46.0) % Neutrophils # (1.3-7.7) k/uL Sodium (137-145) mmol/L Chloride (98-107) mmol/L BUN (7-17) mg/dL Glucose (74-99) mg/dL POC Glucose (mg/dL) 334 H 244 H (70-110) mg/dL Calcium (8.4-10.2) mg/dL Alkaline Phosphatase (38-126) U/L C-Reactive Protein (<1.0) mg/dL Total Protein (6.3-8.2) g/dL Albumin (3.5-5.0) g/dL Procalcitonin (0.02-0.09) ng/mL
[2023-02-06] MEDS: LORazepam 1 MG TAB PO PRN (14:05)
--- NOTE | 2023-02-06 15:46 | XR ---
EXAMINATION TYPE: XR abdomen 2V DATE OF EXAM: 02/06/2023 CLINICAL DATA: 67-year-old female follow-up ileus, [facility] COMPARISON: 02/05/2023 FINDINGS: Supine imaging Limited assessment of free air. Anterior midline skin tray. Previous lowe r lumbar fusion hardware. A surgical drain is present in the pelvis. Anterior midline skin tray al abhi the abdomen and pelvis. Prominent air distention of the stomach. Dilated small bowel loops measur ing up to 6.9 cm versus 6.8 cm, previously, not significantly changed. Overall possibility of colonic air. IMPRESSION: Ongoing diffuse postsurgical ileus with small bowel loops measuring up to 6.9 cm, not significantly c hanged.
[2023-02-06 17:45] LABS: Glucose,Whole Blood 379 mg/dL (70-110)
--- NOTE | 2023-02-06 19:31 | P.PN ---
Subjective Progress Note Date: 02/06/23 Principal diagnosis: Ischemic colitis patient is a 67-year-old female with a past medical history significant for type 2 diabetes mellitus COPD morbid obesity did have a history of right below the knee amputation and left big toe amputation history of smoking presenting to the hospital with a 2-week history of abdominal pain , patient has been diagnosed with ischemic colitis in this patient with status post subtotal colectomy and ileostomy. Patient has been extubated as of 01/23/2023, patient did have a cardiac arrest 01/28/2023 evening requiring resuscitation and intubation On today's evaluation that is 02/06/2023 patient remains to be afebrile, the patient is breathing comfortably on room air no chest pain shortness of breath or cough no vomiting or diarrhea has been reported by the nursing staff Objective - Vital Signs Vital signs: Vital Signs Temp 98.2 F 02/06/23 08:00 Pulse 90 02/06/23 08:00 Resp 20 02/06/23 08:00 BP 149/69 02/06/23 08:00 Pulse Ox 93 L 02/06/23 08:00 FiO2 40 01/30/23 12:00 Intake & Output 02/05/23 02/06/23 02/06/23 18:59 06:59 18:59 Intake Total 2597 1840 1244 Output Total 3900 2425 400 Balance -1303 -585 844 Weight 77.7 kg 79 kg Intake: IV 1097 1840 190 ACETAMINOPHEN IV (For NPO 200 ) 1,000 mg In Empty Bag 1 bag @ 400 mls/hr IVPB Q6H [facility] Rx#:[id number] Cefepime 2 gm In Sodium 100 Chloride 0.9% 100 ml @ 25 mls/hr IVPB Q12HR [facility] Rx #:[id number] Dextrose 5% in Water 1, 600 600 50 000 ml @ 50 mls/hr IV . Q20H [facility] Rx#:[id number] Mvi, Adult No.4 with Vit 427 K 10 ml Trace (Conc-1Ml/ Dose) 1 ml Sodium Acetate 34 meq Potassium Chloride 20 meq Calcium Gluconate 1 gm Magnesium Sulfate gm 0.5 gm In Amino Acid 4.25%-D10w 1, 000 ml @ 61 mls/hr IV .BY DURATION [facility] Rx#: [id number] Sodium Acetate 30 meq 70 840 140 Potassium Acetate 50 meq Calcium Gluconate 1 gm Magnesium Sulfate gm 1 gm Potassium Phosphate 6 mmol In Amino Acid 5%- D15w 1,000 ml @ 70 mls/hr IV .BY DURATION [facility] Rx#: [id number] metroNIDAZOLE-NS PMX 500 100 mg In Saline 1 100ml.bag @ 100 mls/hr IVPB Q8HR [facility] Rx#:[id number] Intake, IV Titration 1054 Amount Sodium Acetate 30 meq 1054 Potassium Acetate 50 meq Calcium Gluconate 1 gm Magnesium Sulfate gm 1 gm Potassium Phosphate 6 mmol In Amino Acid 5%- D15w 1,000 ml @ 70 mls/hr IV .BY DURATION [facility] Rx#: [id number] Oral 1500 Output: Urine 1400 1500 275 Stool 2500 925 125 Other: Voiding Method Indwelling Catheter Indwelling Catheter Indwelling Catheter ABP, PAP, CO, CI - Last Documented Arterial Blood Pressure 162/42 - Exam GENERAL DESCRIPTION: An elderly female lying in bed in no distress RESPIRATORY SYSTEM: Unlabored breathing , decreased intensity of breath sounds bilaterally HEART: S1 S2 regular rate and rhythm , ABDOMEN: Soft , mild distention EXTREMITIES: Right BK stump incision is healed - Labs CBC & Chem 7: 02/06/23 03:32 02/06/23 03:32 Labs: Abnormal Lab Results - Last 24 Hours (Table) 02/05/23 02/05/23 02/05/23 Range/Units 09:12 11:36 18:33 WBC (3.8-10.6) k/uL RBC (3.80-5.40) m/uL Hgb (11.4-16.0) gm/dL Hct (34.0-46.0) % Neutrophils # (1.3-7.7) k/uL Sodium (137-145) mmol/L Chloride (98-107) mmol/L BUN (7-17) mg/dL Glucose (74-99) mg/dL POC Glucose (mg/dL) 207 H 446 H (70-110) mg/dL Calcium (8.4-10.2) mg/dL Alkaline Phosphatase (38-126) U/L C-Reactive Protein (<1.0) mg/dL Total Protein (6.3-8.2) g/dL Albumin (3.5-5.0) g/dL Procalcitonin 0.71 H (0.02-0.09) ng/mL 05/22/23 05/23/23 05/23/23 Range/Units 23:40 03:32 03:32 WBC 13.0 H (3.8-10.6) k/uL RBC 3.11 L (3.80-5.40) m/uL Hgb 9.2 L (11.4-16.0) gm/dL Hct 29.2 L (34.0-46.0) % Neutrophils # 10.3 H (1.3-7.7) k/uL Sodium 130 L (137-145) mmol/L Chloride 97 L (98-107) mmol/L BUN 33 H (7-17) mg/dL Glucose 321 H (74-99) mg/dL POC Glucose (mg/dL) 391 H (70-110) mg/dL Calcium 8.2 L (8.4-10.2) mg/dL Alkaline Phosphatase 186 H (38-126) U/L C-Reactive Protein 1.3 H (<1.0) mg/dL Total Protein 6.1 L (6.3-8.2) g/dL Albumin 2.8 L (3.5-5.0) g/dL Procalcitonin (0.02-0.09) ng/mL 02/06/23 Range/Units 05:28 WBC (3.8-10.6) k/uL RBC (3.80-5.40) m/uL Hgb (11.4-16.0) gm/dL Hct (34.0-46.0) % Neutrophils # (1.3-7.7) k/uL Sodium (137-145) mmol/L Chloride (98-107) mmol/L BUN (7-17) mg/dL Glucose (74-99) mg/dL POC Glucose (mg/dL) 334 H (70-110) mg/dL Calcium (8.4-10.2) mg/dL Alkaline Phosphatase (38-126) U/L C-Reactive Protein (<1.0) mg/dL Total Protein (6.3-8.2) g/dL Albumin (3.5-5.0) g/dL Procalcitonin (0.02-0.09) ng/mL Assessment and Plan (1) Ischemic colitis Current Visit: Yes Status: Acute Code(s): K55.9 - VASCULAR DISORDER OF INTESTINE, UNSPECIFIED SNOMED Code(s): 67907065 (2) Sepsis Current Visit: No Status: Acute Code(s): A41.9 - SEPSIS, UNSPECIFIED ORGANISM SNOMED Code(s): 12308530 Plan: 1patient presented to hospital abdominal pain has been diagnosed with ischemic colitis in this patient infusion of septic shock with low-grade fever tachycardia elevated white count elevated lactic acid source being ischemic large bowel status post subtotal colectomy and end ileostomy , patient subsequently did have worsening of her respiratory status and cardiac arrest requiring reintubation and the patient was subsequently extubated 2-Patient is slowly clinical improvement the patient remains to be afebrile patient white count is down to 13,000 today continue with cefepime and Flagyl and monitor clinical course closely at the bedside questions concerns answered Time with Patient: Less than 30
[2023-02-06] MEDS: MIRTAZAPINE 15 MG TAB NG-TUBE SCH (20:27)
[2023-02-06 21:22] LABS: Glucose,Whole Blood 308 mg/dL (70-110)
[2023-02-06] MEDS ORDERED: LORATADINE 10 MG TAB PO STA (23:34)
[2023-02-07] MEDS: HYDROmorphone 1 MG/ML 1 ML SYRINGE IVP PRN ×6 (00:04→17:38)
[2023-02-07 00:17] LABS: Glucose,Whole Blood 285 mg/dL (70-110)
[2023-02-07] MEDS: INSULIN ASPART (NovoLOG) 100 UNIT/ML VIAL SQ SCH ×5 (00:21→22:03)
[2023-02-07] MEDS: 1: MVI, ADULT NO.4 WITH VIT K 10 ML, TRACE (CONC-1ML/DOSE) 1 ML, SODIUM ACETATE 30 MEQ, IV SCH ×8 (00:31)
[2023-02-07] MEDS: ACETAMINOPHEN TAB 500 MG TAB PO SCH ×3 (05:41→17:43)
[2023-02-07 06:04] LABS: African American GFR (CKD) 78 (>60 ml/min/1.73 sqM); Anion Gap 7 mmol/L; Blood Urea Nitrogen 36 mg/dL (7-17); Calcium 8.7 mg/dL (8.4-10.2); Carbon Dioxide 25 mmol/L (22-30); Chloride 99 mmol/L (98-107); Glucose 203 mg/dL (74-99); Magnesium 2.1 mg/dL (1.6-2.3); Non-African American GFR(CKD) 67 (>60 ml/min/1.73 sqM); Phosphorus 3.1 mg/dL (2.5-4.5); Potassium 5.9 mmol/L (3.5-5.1); Sodium 131 mmol/L (137-145)
[2023-02-07 06:38] LABS: Glucose,Whole Blood 221 mg/dL (70-110)
[2023-02-07] MEDS: INSULIN DETEMIR (LEVEMIR) 100 UNIT/ML SYR SQ SCH ×2 (07:01→22:03)
--- NOTE | 2023-02-07 07:32 | XR ---
EXAMINATION TYPE: XR abdomen 2V DATE OF EXAM: 02/07/2023 6:42 AM INDICATION: Patient age:Female; 67 years old; Reason for study: follow up on ileus; COMPARISON: 02/06/2023 TECHNIQUE: Two views of the abdomen were obtained. FINDINGS: Persistent surgical changes hardware in the lower spine and skin tray present. There rem ains dilation of loops of bowel measuring up to 6.7 cm. Tubing projects over the lower pelvis likely representing drainage tubing. IMPRESSION: Persistent diffuse postsurgical ileus with small bowel loops measuring up to 6.7 cm, not significantl y changed.
[2023-02-07] MEDS: IPRATROPIUM-ALBUTEROL 3 ML NEB INHALATION SCH ×4 (08:35→19:42)
--- NOTE | 2023-02-07 08:46 | P.PN ---
Subjective Principal diagnosis: Ischemic colitis The patient is a 67-year-old female essentially admitted for ischemic colitis. The patient had code after having recovery last week. The patient is now extubated and seems more hemodynamically stable. Still copious amounts of gastric fluid is being extracted. Much better orientation today. She is now out of the ICU and doing much better. Objective - Vital Signs Vital signs: Vital Signs Temp 97.5 F L 02/07/23 06:56 Pulse 90 02/07/23 08:36 Resp 19 02/07/23 06:56 BP 145/75 02/07/23 06:56 Pulse Ox 98 02/07/23 08:36 FiO2 21 02/07/23 08:36 Intake & Output 02/06/23 02/07/23 02/07/23 18:59 06:59 18:59 Intake Total 1944 1054 Output Total 1590 900 Balance 354 154 Intake: IV 890 Dextrose 5% in Water 1, 50 000 ml @ 50 mls/hr IV . Q20H [facility] Rx#:[id number] Sodium Acetate 30 meq 840 Potassium Acetate 50 meq Calcium Gluconate 1 gm Magnesium Sulfate gm 1 gm Potassium Phosphate 6 mmol In Amino Acid 5%- D15w 1,000 ml @ 70 mls/hr IV .BY DURATION [facility] Rx#: [id number] Intake, IV Titration 1054 1054 Amount Sodium Acetate 30 meq 1054 1054 Potassium Acetate 50 meq Calcium Gluconate 1 gm Magnesium Sulfate gm 1 gm Potassium Phosphate 6 mmol In Amino Acid 5%- D15w 1,000 ml @ 70 mls/hr IV .BY DURATION [facility] Rx#: [id number] Output: Drainage 40 Left Lower Abdomen 40 Urine 825 600 Stool 725 300 Other: Voiding Method Indwelling Catheter External Catheter # Voids 2 ABP, PAP, CO, CI - Last Documented Arterial Blood Pressure 162/42 - Constitutional General appearance: Present: average body habitus - EENT Eyes: Absent: abnormal pupil - Neck Neck: Absent: lymphadenopathy - Respiratory Respiratory: bilateral: CTA - Cardiovascular Rhythm: regular Heart sounds: normal: S1, S2 Abnormal Heart Sounds: Absent: S3 Gallop - Gastrointestinal General gastrointestinal: Present: soft. Absent: tenderness - Integumentary Integumentary: Absent: cellulitis - Labs CBC & Chem 7: 02/06/23 03:32 02/07/23 05:18 Labs: Abnormal Lab Results - Last 24 Hours (Table) 05/23/23 05/23/23 05/23/23 Range/Units 11:07 17:43 21:05 Sodium (137-145) mmol/L Potassium (3.5-5.1) mmol/L BUN (7-17) mg/dL Glucose (74-99) mg/dL POC Glucose (mg/dL) 244 H 379 H 308 H (70-110) mg/dL 02/07/23 02/07/23 02/07/23 Range/Units 00:12 05:18 06:20 Sodium 131 L (137-145) mmol/L Potassium 5.9 H (3.5-5.1) mmol/L BUN 36 H (7-17) mg/dL Glucose 203 H (74-99) mg/dL POC Glucose (mg/dL) 285 H 221 H (70-110) mg/dL Assessment and Plan (1) Ischemic bowel disease Current Visit: Yes Status: Acute Code(s): K55.9 - VASCULAR DISORDER OF INTESTINE, UNSPECIFIED SNOMED Code(s): 21824634 (2) Ischemic colitis Current Visit: Yes Status: Acute Code(s): K55.9 - VASCULAR DISORDER OF INTESTINE, UNSPECIFIED SNOMED Code(s): 32241738 (3) COPD (chronic obstructive pulmonary disease) Current Visit: No Status: Acute Code(s): J44.9 - CHRONIC OBSTRUCTIVE PULMONARY DISEASE, UNSPECIFIED SNOMED Code(s): 62134738 (4) History of below-knee amputation of right lower extremity Current Visit: No Status: Acute Code(s): Z89.511 - ACQUIRED ABSENCE OF RIGHT LEG BELOW KNEE SNOMED Code(s): 449455704372773 (5) Opioid dependence Current Visit: No Status: Acute Code(s): F11.20 - OPIOID DEPENDENCE, UNCOMPLICATED SNOMED Code(s): 08498107 (6) Type 2 diabetes mellitus Current Visit: No Status: Acute Code(s): E11.9 - TYPE 2 DIABETES MELLITUS WITHOUT COMPLICATIONS SNOMED Code(s): 05039696 Plan: Now out of the ICU the patient is doing much better. Prognosis is improving. Check CBC and CMP in a.m. Appreciate multiple consultants input. Oral feeding when appropriate.
[2023-02-07 08:58] LABS: HCT 27.9 % (37.2-46.3); HGB 8.6 g/dL (12.0-15.0); MCHC 30.8 g/dL (32.0-37.0); MCV 93.9 fL (80.0-97.0); Mean Platelet Volume 9.3 fL (9.5-12.2); NRBC Per 100 WBC 0 /100 WBCS (0.0-0.0); Platelet Count 272 X 10*3/uL (140-440); RBC 2.97 X 10*6/uL (4.10-5.20); RDW 14.5 % (11.5-14.5); WBC 17.97 X 10*3/uL (4.50-10.00)
[2023-02-07] MEDS ORDERED: SODIUM ZIRCONIUM CYCLOSILICATE 10 GM PACKET PO ONE (10:15)
[2023-02-07] MEDS: NICOTINE 21MG/24HR PATCH TRANSDERM SCH (10:18)
[2023-02-07] MEDS: SODIUM BICARBONATE TAB 650 MG TAB PO SCH ×2 (10:18→22:02)
[2023-02-07] MEDS: ENOXAPARIN 30 MG/0.3 ML SYRINGE SQ SCH (10:18)
[2023-02-07] MEDS: hydrALAZINE HCL 50 MG TAB PO SCH ×3 (10:18→22:03)
[2023-02-07] MEDS: ALVIMOPAN 12 MG CAPSULE PO SCH ×2 (10:19→22:02)
[2023-02-07] MEDS: metroNIDAZOLE-NS PMX 500 MG in SALINE 1 100ML.BAG IVPB SCH ×2 (10:19→17:43)
[2023-02-07] MEDS: GABAPENTIN 100 MG CAP PO SCH ×2 (10:19→22:03)
[2023-02-07] MEDS: LEVOTHYROXINE 88 MCG TAB PO SCH (10:19)
[2023-02-07] MEDS: CEFEPIME 2 GM in SODIUM CHLORIDE 0.9% 100 ML IVPB SCH ×2 (10:19→17:43)
[2023-02-07] MEDS: predniSONE 20 MG TAB PO SCH (10:19)
[2023-02-07] MEDS: amLODIPine 10 MG TAB PO SCH (10:40)
--- NOTE | 2023-02-07 10:53 | P.PN ---
Subjective Patient is seen for follow-up for acute kidney injury. Status post emergent explorative laparotomy and lysis of adhesions with total abdominal colectomy and end ileostomy on 01/19/2023 She is currently awake, comfortable. Renal function has improved significantly. 24 hour urine output at 2.9 L Serum creatinine down to 0.8 Serum potassium was 5.9 this morning. TPN has been changed and potassium has been removed. Garcia catheter was discontinued yesterday with. Will check bladder scan to rule out urine retention. Objective - Vital Signs Vital signs: Vital Signs Temp 97.5 F L 02/07/23 06:56 Pulse 90 02/07/23 08:50 Resp 19 02/07/23 06:56 BP 145/75 02/07/23 06:56 Pulse Ox 98 02/07/23 08:36 FiO2 21 02/07/23 08:36 Intake & Output 02/06/23 02/07/23 02/07/23 18:59 06:59 18:59 Intake Total 1944 1054 Output Total 1590 900 Balance 354 154 Intake: IV 890 Dextrose 5% in Water 1, 50 000 ml @ 50 mls/hr IV . Q20H [facility] Rx#:[id number] Sodium Acetate 30 meq 840 Potassium Acetate 50 meq Calcium Gluconate 1 gm Magnesium Sulfate gm 1 gm Potassium Phosphate 6 mmol In Amino Acid 5%- D15w 1,000 ml @ 70 mls/hr IV .BY DURATION [facility] Rx#: [id number] Intake, IV Titration 1054 1054 Amount Sodium Acetate 30 meq 1054 1054 Potassium Acetate 50 meq Calcium Gluconate 1 gm Magnesium Sulfate gm 1 gm Potassium Phosphate 6 mmol In Amino Acid 5%- D15w 1,000 ml @ 70 mls/hr IV .BY DURATION [facility] Rx#: [id number] Output: Drainage 40 Left Lower Abdomen 40 Urine 825 600 Stool 725 300 Other: Voiding Method Indwelling Catheter External Catheter # Voids 2 ABP, PAP, CO, CI - Last Documented Arterial Blood Pressure 162/42 - Exam Patient is awake, comfortable Examination of the heart S1 and S2 Examination of the lungs bilateral breath sounds are heard Abdomen is soft it is currently dressed Drains are noted. Examination lower extremity shows right BKA. No significant edema noted [employer] examination grossly intact - Labs CBC & Chem 7: 02/07/23 05:18 02/07/23 05:18 Labs: Abnormal Lab Results - Last 24 Hours (Table) 02/06/23 02/06/23 02/06/23 Range/Units 11:07 17:43 21:05 WBC (4.50-10.00) X 10*3/uL RBC (4.10-5.20) X 10*6/uL Hgb (12.0-15.0) g/dL Hct (37.2-46.3) % MCHC (32.0-37.0) g/dL MPV (9.5-12.2) fL Sodium (137-145) mmol/L Potassium (3.5-5.1) mmol/L BUN (7-17) mg/dL Glucose (74-99) mg/dL POC Glucose (mg/dL) 244 H 379 H 308 H (70-110) mg/dL 02/07/23 02/07/23 02/07/23 Range/Units 00:12 05:18 05:18 WBC 17.97 H (4.50-10.00) X 10*3/uL RBC 2.97 L (4.10-5.20) X 10*6/uL Hgb 8.6 L (12.0-15.0) g/dL Hct 27.9 L (37.2-46.3) % MCHC 30.8 L (32.0-37.0) g/dL MPV 9.3 L (9.5-12.2) fL Sodium 131 L (137-145) mmol/L Potassium 5.9 H (3.5-5.1) mmol/L BUN 36 H (7-17) mg/dL Glucose 203 H (74-99) mg/dL POC Glucose (mg/dL) 285 H (70-110) mg/dL 02/07/23 Range/Units 06:20 WBC (4.50-10.00) X 10*3/uL RBC (4.10-5.20) X 10*6/uL Hgb (12.0-15.0) g/dL Hct (37.2-46.3) % MCHC (32.0-37.0) g/dL MPV (9.5-12.2) fL Sodium (137-145) mmol/L Potassium (3.5-5.1) mmol/L BUN (7-17) mg/dL Glucose (74-99) mg/dL POC Glucose (mg/dL) 221 H (70-110) mg/dL Assessment and Plan Assessment: 1. Acute kidney injury, ischemic ATN currently nonoliguric. Improved. No renal abnormalities mentioned on CT. UA shows WBCs 33, 2+ protein no blood. UOP was high from post ATN diuresis, now 80-100ml/hr. Cr down to 0.8 mg/dL 2. Septic shock associated with ischemic bowel 3. Lactic acidosis and anion gap metabolic acidosis associated with ischemic bowel septic shock and acute kidney injury 4. Status post PEA on 01/28/2023 5. Acute hypoxic respiratory failure, status post extubation 6. Hypokalemia associated with post-ATN diuresis, status post replacement. Potassium was high today at 5.9. TPN has been appropriately changed. Garcia catheter was also recently removed therefore bladder scan will be done to rule out urine retention. 7. Hypertension currently maintained on hydralazine and off of cleviprex drip Plan: Lokelma by mouth 1 Check bladder scan and rule out urine retention Repeat potassium later on today
[2023-02-07] MEDS: PANTOPRAZOLE 40 MG/10 ML VIAL IV SCH (11:06)
[2023-02-07 11:25] LABS: Glucose,Whole Blood 94 mg/dL (70-110)
--- NOTE | 2023-02-07 11:41 | CDI ---
Documentation Clarification Form Date: 02/07/2023 11:29:17 AM From: Kina Whelan RN CCDS Phone: [phone] Admit Date: 01/19/2023 2:25:00 PM Patient Name: Akosua Yost Visit Number: [id number] Discharge Date: ATTENTION: The Clinical Documentation Specialists (CDI) and [facility] Coding Staff appreciate your assistance in clarifying documentation. Please respond to the clarification below the line at the bottom and electronically sign. The CDI & [facility] Coding staff will review the response and follow-up if needed. Please note: Queries are made part of the Legal Health Record. If you have any questions, please contact the author of this message via ITS. Dr. Kennedy A Stage II pressure ulcer is documented in Nursing Wound Assessment by Nursing. Based on this information and the findings below, is there an additional diagnosis that is clinically appropriate for this patient? History/Risk Factors: 67 year old female presents with diffusely tender abdomen, intractable abdominal pain. Medical History: Morbid obesity BMI over 34.8, COPD, DM 2 and HTN. 5/5, H&P. Clinical Indicators: Location: Coccyx Wound description: Reddened, soft, warm, dry and intact. Treatment: Turn 2Q Hours; Foam with border; Absorbant Underpad check hourly Is there an additional diagnosis that is clinically appropriate for this patient? [ x ] Coccyx Pressure Ulcer Stage 2 [ ] Other condition, please specify [ ] Unable to determine Clinical Definitions: Stage 1 Pressure Ulcer: intact skin, non-blanching redness of local area Stage 2 Pressure Ulcer: Partial thickness, loss of dermis, pink wound bed Stage 3 Pressure Ulcer: Full thickness tissue loss Stage 4 Pressure Ulcer: Full thickness tissue loss with exposed bone, tendon, or muscle. Unstageable pressure ulcer: Full thickness tissue loss in which the base of the ulcer is covered by slough (yellow, garces, hansen, green or brown) and/or eschar (garces, brown or black) in the wound bed. (Template Last Revised: November 2020) MTDD
--- NOTE | 2023-02-07 11:57 | P.PN ---
Subjective Progress Note Date: 02/07/23 Principal diagnosis: Abdominal pain. Pulmonary/critical care consult dated 01/19/2023. 67-year-old female seen in the emergency room, by Dr. Montoya. She came into the emergency room, today, January 19, complaining of abdominal pain. Been going on for about 7-10 days. She apparently has not had a bowel movement for about 7 days according to her and her . Her apparently found her on the floor today. He is not sure how long she was on the ground. The patient denied any vomiting, but she did have nausea. There was no diarrhea. The patient apparently has had this problem in the past, and was supposed to have a colonoscopy with one of the surgeons but that never took place. She was admitted last in November, for hyponatremia. Her primary care physician is Dr. Kennedy. We were consulted, because the surgeon felt that she might need an ICU bed. Currently, she is on room air. An IV is connected. She does have a history of COPD, and diabetes. She also has a history of hypertension. She is a daily tobacco user, and she apparently does also vape. White count 25.6, with a normal hemoglobin, hematocrit, and platelet count. The patient's sodium is 134, potassium 4.3, chlorides 100, CO2 14, anion gap 20, BUN 20, creatinine 1.89. Glucose 69. Lactic acid 7.2. Repeat 7.3. The urine is yellow and cloudy with 2+ protein. Leukocyte esterase is large positive. She has 33 WBCs, and rare bacteria. Chest x-ray shows small lung volumes, and some basilar atelectasis. No acute abnormality noted. Computed tomography scan of the belly shows martinez-colonic distention, and possible ischemic colitis. Progress note dated 01/20/2023. Abdominal pain and abdominal distention. She ended up going to the operating room yesterday, and having exploratory laparotomy, lysis of adhesions, total colectomy, ileostomy, placement of Diaz-Benítez drains, and placement of the wound VAC. The patient is currently in the intensive care unit, on the mechanical ventilator. Settings include the volume assist control, rate 18, tidal volume 400, FiO2 40%, and PEEP of 5. Gases show pO2 of 97, pCO2 of 54, and a pH is 7.1. The patient's rate was increased from 18 to 24 breaths per minute, to help with the respiratory acidosis component of her acid-base disturbance. In addition, the patient is on propofol at 25 mcg/kg/m, norepinephrine at 3.6 mcg/m, and is getting a sodium bicarbonate drip, with 2 ampules of sodium bicarbonate and D5W at 75 mL an hour. Today is postop day #1. White count 19.5, hemoglobin 11.2, hematocrit 34.9, with a normal platelet count. Sodium 134, potassium 5.3, chlorides 106, CO2 13, anion gap 15, BUN 23, and creatinine 2.18. Chest x-ray shows a properly placed left subclavian triple-lumen catheter. This is in the area of the superior vena cava/right atrium junction. The rest of the x-ray looks fine. Progress note dated 01/21/2023. 67-year-old female who was seen in the emergency department, initially, for abdominal pain and abdominal distention. The patient had a exploratory laparotomy, lysis of adhesions, total colectomy, ileostomy, placement of Diaz-Benítez drains, and also placement of a wound VAC. She remains in the ICU, on the ventilator. Ventilator settings include the volume assist control, rate 24, tidal volume 400, FiO2 40%, and PEEP of 5. Blood gases show pO2 136, pCO2 39, pH is 7.27. The patient remains on propofol at 35 mcg/kg/m, norepinephrine at 1.9 mcg/m, and a sodium bicarbonate drip, with 2 ampules of sodium bicarbonate and D5W at 75 mL an hour. The patient also remains on Zosyn. Her FiO2 is reduced on the 30%, we will start TPN on this patient, we will also check a cortisol level, and TSH. In addition, we will check a pro-calcitonin level. Current laboratory data includes a white count 16.7, hemoglobin 9.6, hematocrit 29.1, and a platelet count of 157,000. Sodium 129, potassium 4.5, chlorides 101, CO2 16, anion gap 12, BUN 36, and creatinine 2.99. Chest x-ray is evaluated, and shows diffuse infiltrates. The chest x-ray in my opinion is unchanged. Reevaluated today on 02/03/2023, patient remains in the ICU, remains on clevidipine at 5 mg per hour. Continues to have significant nasogastric tube output over 300 in the last shift. Her ostomy seems to be functioning well. Patient continues to have what seems to be a hyperchloremic non-anion gap metabolic acidosis. Continues on TPN, at 50 mL per hour. Clinically the patient is not in distress, she is on room air. ABG showed a pO2 of 67 pCO2 29 pH of 7.44 bicarb on the ABG is 21. Renal profile is back to normal creatinine is 0.72 Reevaluated today on , remains in the ICU, feeling better, her nasoga stric output seems to be less and less in the last 24 hours, hence surgeries considering clamping the tube and possibly remove it sometime later today. Remains on clevidipine drip at 4 mg per hour. Remains on Flagyl and cefepime. Her ostomy output seems to be reasonable nonetheless the patient had significant nasogastric tube output over the last few days but seems to be less in the last 24 hours. Labs today were basically unremarkable, bicarb is 22 electrolytes are normal renal profile is normal and liver profile seems to be normal. The patient is seen today 02/05/2023 in follow-up in the intensive care unit. She is awake and alert in no acute distress. Currently maintaining O2 satur ations in the 90s on room air. She is being nourished with TPN at 61 ML's per hour. D5W at 50 mL per hour. Her clevidipine has been weaned off. She remains on cefepime, Eraxis and Flagyl. She's been recovering from her surgery for a small bowel obstruction that was performed on 01/19/2023 which was a small bowel resection, ileostomy, colectomy, lysis of adhesions. Acute abdomen series is pending. White count 16.8. Hemoglobin 10.0. Sodium 140. Potassium 4.3. Bicarb 24. BUN 33. Creatinine 0.85. Glucose 137. The patient is seen today 02/06/2023 in follow-up in the intensive care unit. She is resting comfortably in bed. Awake and alert in no acute distress. Maintaining O2 saturations in the 90s on room air. She's been nourished with TPN at 70 ML's per hour. D5W at 50 MLS per hour. Small bowel series revealed dilated jejunal loops extending to the distal jejunum or proximal ileum while there appears to be a transition zone and then normalized small bowel distally extending to the patient's ostomy. Findings may reflect moderate grade obstruction. Ostomy is functioning. Sputum culture was positive for Enterobacter aerogenes. Culture from the YASMINE drain revealed no growth. Blood cultures reveal no growth. She remains on bronchodilators. Antibiotics in the form of cefepime. Lovenox for DVT prophylaxis. Progress note dated 02/07/2023. The patient is seen today in room 468. I saw her last back on January 21, when she was in the intensive care unit. Clinically, she's doing much better. The patient's on room air. She's getting TPN at 70 mL an hour, and saline at 10 mL an hour. She continues on cefepime and Flagyl. She denies any shortness of breath, cough, wheezing, or chest tightness. White count 17.97, hemoglobin 8.6, hematocrit 27.9, and platelet count 272,000. Sodium 131, potassium 5.9, chlorides 99, CO2 25, BUN 36, and creatinine 0.89. Objective - Vital Signs Vital signs: Vital Signs Temp 97.5 F L 02/07/23 06:56 Pulse 90 02/07/23 08:50 Resp 19 02/07/23 06:56 BP 145/75 02/07/23 06:56 Pulse Ox 98 02/07/23 08:36 FiO2 21 02/07/23 08:36 Intake & Output 02/06/23 02/07/23 02/07/23 18:59 06:59 18:59 Intake Total 1944 1054 Output Total 1590 900 Balance 354 154 Intake: IV 890 Dextrose 5% in Water 1, 50 000 ml @ 50 mls/hr IV . Q20H [facility] Rx#:[id number] Sodium Acetate 30 meq 840 Potassium Acetate 50 meq Calcium Gluconate 1 gm Magnesium Sulfate gm 1 gm Potassium Phosphate 6 mmol In Amino Acid 5%- D15w 1,000 ml @ 70 mls/hr IV .BY DURATION [facility] Rx#: [id number] Intake, IV Titration 1054 1054 Amount Sodium Acetate 30 meq 1054 1054 Potassium Acetate 50 meq Calcium Gluconate 1 gm Magnesium Sulfate gm 1 gm Potassium Phosphate 6 mmol In Amino Acid 5%- D15w 1,000 ml @ 70 mls/hr IV .BY DURATION [facility] Rx#: [id number] Output: Drainage 40 Left Lower Abdomen 40 Urine 825 600 Stool 725 300 Other: Voiding Method Indwelling Catheter External Catheter # Voids 2 ABP, PAP, CO, CI - Last Documented Arterial Blood Pressure 162/42 - Exam No acute distress, on room air. No respiratory distress. HEENT examination is grossly unremarkable. Neck supple. Full range of motion. No adenopathy thyromegaly or neck vein distention. Cardiovascular examination reveals regular rhythm rate. S1-S2 normal. No S3 or S4. No discernible murmur noted. Heart sounds are distant. Heart rate is 90 bpm. Lungs reveal mostly clear breath sounds. No wheezes. Scattered rhonchi. No crackles. Saturations are 98% on room air. Abdomen soft, with ileostomy noted. Extremities are intact. No cyanosis clubbing or edema. The patient has a right below the knee amputation. Skin is without rash or lesion. Neurologic examination is brief but nonfocal. - Labs CBC & Chem 7: 02/07/23 05:18 02/07/23 05:18 Labs: Abnormal Lab Results - Last 24 Hours (Table) 02/06/23 02/06/23 02/07/23 Range/Units 17:43 21:05 00:12 WBC (4.50-10.00) X 10*3/uL RBC (4.10-5.20) X 10*6/uL Hgb (12.0-15.0) g/dL Hct (37.2-46.3) % MCHC (32.0-37.0) g/dL MPV (9.5-12.2) fL Sodium (137-145) mmol/L Potassium (3.5-5.1) mmol/L BUN (7-17) mg/dL Glucose (74-99) mg/dL POC Glucose (mg/dL) 379 H 308 H 285 H (70-110) mg/dL 02/07/23 02/07/23 02/07/23 Range/Units 05:18 05:18 06:20 WBC 17.97 H (4.50-10.00) X 10*3/uL RBC 2.97 L (4.10-5.20) X 10*6/uL Hgb 8.6 L (12.0-15.0) g/dL Hct 27.9 L (37.2-46.3) % MCHC 30.8 L (32.0-37.0) g/dL MPV 9.3 L (9.5-12.2) fL Sodium 131 L (137-145) mmol/L Potassium 5.9 H (3.5-5.1) mmol/L BUN 36 H (7-17) mg/dL Glucose 203 H (74-99) mg/dL POC Glucose (mg/dL) 221 H (70-110) mg/dL Assessment and Plan Assessment: Acute hypoxic respiratory failure secondary to cardiac arrest requiring intubation and mechanical ventilation recovered and on room air. Cardiac arrest requiring intubation and mechanical ventilation, patient had a PEA cardiac arrest, down time of 5 minutes. In-hospital cardiac arrest. This occurred on 01/28/2023. Status post exploratory laparotomy, lysis of adhesions, total colectomy, ileostomy, abdominal washout, placement of YASMINE drains, placement of wound VAC pos toperative day # 17 patient was extubated after this surgery on 01/23/2023 and has been off mechanical ventilation until 01/28 requiring reintubation because of PEA. Patient was extubated again on 01/30/2023. Acute kidney injury improving this is mostly a picture of acute tubular necrosis. Non-anion gap hyperchloremic metabolic acidosis. Severe peripheral vessel occlusive disease with below knee amputation on the right. History of type 2 diabetes. Stress incontinence. Hypothyroidism. Dyslipidemia. History of depression Suspect acute aspiration pneumonia, sputum cultures have been positive for Enterobacter aerogenes, sensitive to cefepime. Acute exacerbation of COPD. Chronic tobacco dependence. Plan: Plan dated 01/19/2023. The patient will be admitted to the intensive care unit for further monitoring and management. I spoke to Dr. Montoya about the patient, and also the ICU charge nurse. We will continue to follow and make recommendations along the way. She is yet to be seen by the surgeon. The surgeon, apparently has experience with this patient. The patient was to have a colonoscopy in the past, but never has scheduled it. Prognosis is guarded. Labs, x-rays, and medications are reviewed. Plan dated 01/20/2023. The patient was seen yesterday in the emergency department. She came in with severe abdominal distention and abdominal pain. It was going on for at least a week and maybe longer. The patient went to the operating room yesterday, and had an exploratory laparotomy, lysis of adhesions, total colectomy, ileostomy, and placement of a wound VAC, and Diaz-Benítez drains. Currently, the patient is on mechanical ventilator, with a severe respiratory and metabolic acidosis. She remains on propofol, and norepinephrine. She's on prednisone bicarbonate drip. We will continue to follow and make recommendations along the way. Prognosis remains very guarded. Plan dated 01/21/2023. The patient is seen, and examined. Labs, x-rays, and medications are reviewed. The patient's FiO2 was reduced to 30%. We'll check a pro-calcitonin level, cortisol level, and TSH. The patient remains on Zosyn. Culture data is negative. The patient also was on propofol, norepinephrine, and a sodium bicarbonate drip. The patient is being seen by nephrology. We will continue to follow make recommendations along the way. The patient's overall prognosis remains very guarded. Plan dated 02/07/2023. The patient is doing very well. She seen today in room 468. I saw her last back on January 21, when she is still in the intensive care unit, on the mechanical ventilator. Currently, she is on room air. He seems to be doing very well. We will continue to follow make recommendations along the way. Labs, x-rays, and medications are all reviewed. Prognosis is still guarded. Time with Patient: Less than 30
--- NOTE | 2023-02-07 12:50 | P.PN ---
Subjective Progress Note Date: 02/07/23 CHIEF COMPLAINT: Acute abdomen with ischemic bowel HISTORY OF PRESENT ILLNESS: Patient is status post exploratory laparotomy with total abdominal colectomy and end ileostomy, lysis of adhesions on 01/19/23. Patient was transferred out of the ICU yesterday. Currently on a regular medical floor. She complains of right shoulder pain today. She reports chest discomfort with cough. She reports abdominal discomfort with cough. Denies any nausea or vomiting. She is having liquidy stool through her ostomy. YASMINE drain with 40ml serous output. Afebrile. WBC 13 up to 17.97 Hgb is 8.6 platelets 272 sodium 131 potassium 5.9 creatinine 0.89 magnesium 2.1 Abdominal x-ray persistent diffuse to postsurgical ileus with small bowel loops measuring up to 6.7 cm. PHYSICAL EXAM: VITAL SIGNS: Reviewed GENERAL: Well-developed in no acute distress. HEENT: No sclera icterus. Moist buccal mucosa. Head is atraumatic, normocephalic. NECK: Supple without lymphadenopathy. CHEST: Non-labored respirations and equal bilateral excursions. CARDIOVASCULAR: Palpable 2+ radial pulses. ABDOMEN: Soft. Nondistended. Optifoam dressing clean and dry. YASMINE drain serous output. liquidy stool present in ostomy MUSCULOSKELETAL: No clubbing or cyanosis. NEUROLOGIC: Patient intubated and sedated PSYCH: Appropriate affect. Alert and oriented to person, place and time. SKIN: Well perfused. Good skin turgor. ASSESSMENT: 1. Acute abdomen with ischemic bowel 2. Hypertensive heart disease with congestive heart failure 3. Morbid obesity due to excess calories, BMI over 34.8 4. Acute renal failure due to dehydration 5. History of lower extremity amputee 6. Chronic obstructive pulmonary disease 7. Diabetes type 2, insulin-dependent with diabetic nephropathy 8. Gastroesophageal reflux disease 9. Hypotension due to hypovolemia 10. Lactic acidosis 11. Septic shock due to bowel 12. Status post total abdominal colectomy 13. Cardiac arrest 14. Severe ileus 15. Suspected aspiration pneumonia 16. Hyperkalemia PLAN: -Advance diet to full liquids -Add Reglan for ileus -Continue monitor daily abdominal x-rays -Continue Entereg -Continue pain management -Continue TPN for nutrition support -Pharmacy adjusting the potassium in the TPN for the hyperkalemia -Continue supportive care -Continue antibiotics per ID -GI prophylaxis Protonix and DVT prophylaxis Lovenox Physician Construction Site Manager note has been reviewed by physician. Signing provider agrees with the documented findings, assessment, and plan of care. Objective - Vital Signs Vital signs: Vital Signs Temp 97.5 F L 02/07/23 06:56 Pulse 90 02/07/23 08:50 Resp 19 02/07/23 06:56 BP 145/75 02/07/23 06:56 Pulse Ox 98 02/07/23 08:36 FiO2 21 02/07/23 08:36 Intake & Output 02/06/23 02/07/23 02/07/23 18:59 06:59 18:59 Intake Total 1944 1054 Output Total 1590 900 Balance 354 154 Intake: IV 890 Dextrose 5% in Water 1, 50 000 ml @ 50 mls/hr IV . Q20H [facility] Rx#:[id number] Sodium Acetate 30 meq 840 Potassium Acetate 50 meq Calcium Gluconate 1 gm Magnesium Sulfate gm 1 gm Potassium Phosphate 6 mmol In Amino Acid 5%- D15w 1,000 ml @ 70 mls/hr IV .BY DURATION [facility] Rx#: [id number] Intake, IV Titration 1054 1054 Amount Sodium Acetate 30 meq 1054 1054 Potassium Acetate 50 meq Calcium Gluconate 1 gm Magnesium Sulfate gm 1 gm Potassium Phosphate 6 mmol In Amino Acid 5%- D15w 1,000 ml @ 70 mls/hr IV .BY DURATION [facility] Rx#: [id number] Output: Drainage 40 Left Lower Abdomen 40 Urine 825 600 Stool 725 300 Other: Voiding Method Indwelling Catheter External Catheter # Voids 2 ABP, PAP, CO, CI - Last Documented Arterial Blood Pressure 162/42 - Labs CBC & Chem 7: 02/07/23 05:18 02/07/23 05:18 Labs: Abnormal Lab Results - Last 24 Hours (Table) 02/06/23 02/06/23 02/06/23 Range/Units 11:07 17:43 21:05 WBC (4.50-10.00) X 10*3/uL RBC (4.10-5.20) X 10*6/uL Hgb (12.0-15.0) g/dL Hct (37.2-46.3) % MCHC (32.0-37.0) g/dL MPV (9.5-12.2) fL Sodium (137-145) mmol/L Potassium (3.5-5.1) mmol/L BUN (7-17) mg/dL Glucose (74-99) mg/dL POC Glucose (mg/dL) 244 H 379 H 308 H (70-110) mg/dL 02/07/23 02/07/23 02/07/23 Range/Units 00:12 05:18 05:18 WBC 17.97 H (4.50-10.00) X 10*3/uL RBC 2.97 L (4.10-5.20) X 10*6/uL Hgb 8.6 L (12.0-15.0) g/dL Hct 27.9 L (37.2-46.3) % MCHC 30.8 L (32.0-37.0) g/dL MPV 9.3 L (9.5-12.2) fL Sodium 131 L (137-145) mmol/L Potassium 5.9 H (3.5-5.1) mmol/L BUN 36 H (7-17) mg/dL Glucose 203 H (74-99) mg/dL POC Glucose (mg/dL) 285 H (70-110) mg/dL 02/07/23 Range/Units 06:20 WBC (4.50-10.00) X 10*3/uL RBC (4.10-5.20) X 10*6/uL Hgb (12.0-15.0) g/dL Hct (37.2-46.3) % MCHC (32.0-37.0) g/dL MPV (9.5-12.2) fL Sodium (137-145) mmol/L Potassium (3.5-5.1) mmol/L BUN (7-17) mg/dL Glucose (74-99) mg/dL POC Glucose (mg/dL) 221 H (70-110) mg/dL
[2023-02-07] MEDS ORDERED: FLUCONAZOLE 100 MG TAB PO SCH (13:15)
[2023-02-07] MEDS: METOCLOPRAMIDE 5 MG/ML 2 ML VIAL IVP SCH ×2 (14:43→19:06)
[2023-02-07 16:27] LABS: Glucose,Whole Blood 320 mg/dL (70-110)
[2023-02-07 18:22] LABS: Glucose,Whole Blood 375 mg/dL (70-110)
[2023-02-07 21:59] LABS: Glucose,Whole Blood 316 mg/dL (70-110)
[2023-02-07] MEDS: MIRTAZAPINE 15 MG TAB NG-TUBE SCH (22:02)
[2023-02-08] MEDS: CEFEPIME 2 GM in SODIUM CHLORIDE 0.9% 100 ML IVPB SCH ×3 (00:46→15:44)
[2023-02-08] MEDS: metroNIDAZOLE-NS PMX 500 MG in SALINE 1 100ML.BAG IVPB SCH ×3 (00:46→15:45)
[2023-02-08] MEDS: METOCLOPRAMIDE 5 MG/ML 2 ML VIAL IVP SCH ×4 (00:46→17:14)
[2023-02-08] MEDS: ACETAMINOPHEN TAB 500 MG TAB PO SCH ×4 (00:47→17:14)
[2023-02-08] MEDS: HYDROmorphone 1 MG/ML 1 ML SYRINGE IVP PRN ×5 (04:12→20:00)
[2023-02-08 06:13] LABS: Glucose,Whole Blood 274 mg/dL (70-110)
[2023-02-08] MEDS: INSULIN ASPART (NovoLOG) 100 UNIT/ML VIAL SQ SCH ×3 (06:16→17:15)
[2023-02-08] MEDS: INSULIN DETEMIR (LEVEMIR) 100 UNIT/ML SYR SQ SCH ×2 (06:16→22:03)
--- NOTE | 2023-02-08 07:01 | XR ---
EXAMINATION TYPE: XR abdomen 2V DATE OF EXAM: 02/08/2023 CLINICAL DATA: 67-year-old female follow-up ileus, [facility] COMPARISON: 02/07/2023 FINDINGS: Skin tray running down the right paramedian abdomen and pelvis. Trace residual oral contrast seen within the fundus and proximal body of the stomach. Lower lumbar fusion hardware. Small bowel loops p articularly in the right side of the pelvis show improving caliber now measuring up to 2.5 cm. There is residual distention of a few small bowel loops in the left side of the abdomen measuring up to 6.0 cm versus 6.7 cm, previously. A small amount of colonic air appears to be present now on the right s marcin of the abdomen. Supine imaging limited for assessment of free air. Surgical drain in the pelvis. IMPRESSION: Persistent air distended small bowel loops in the left side of the abdomen though with some improveme nt measuring up to 6.0 cm versus 6.7 cm, previously. Loops in the right side of the abdomen have impr maryellen down to 2.5 cm. Persistent but improving ileus is suggested. Small amount of air is also now not ed in the right side of the colon now.
[2023-02-08] MEDS: NICOTINE 21MG/24HR PATCH TRANSDERM SCH (07:59)
[2023-02-08] MEDS: hydrALAZINE HCL 50 MG TAB PO SCH ×3 (08:16→22:03)
[2023-02-08] MEDS: PANTOPRAZOLE 40 MG/10 ML VIAL IV SCH (08:16)
[2023-02-08] MEDS: LEVOTHYROXINE 88 MCG TAB PO SCH (08:16)
[2023-02-08] MEDS: ALVIMOPAN 12 MG CAPSULE PO SCH ×2 (08:17→22:03)
[2023-02-08] MEDS: predniSONE 20 MG TAB PO SCH (08:17)
[2023-02-08] MEDS: ENOXAPARIN 30 MG/0.3 ML SYRINGE SQ SCH (08:17)
[2023-02-08] MEDS: GABAPENTIN 100 MG CAP PO SCH ×2 (08:17→22:03)
[2023-02-08] MEDS: amLODIPine 10 MG TAB PO SCH (08:17)
[2023-02-08] MEDS: SODIUM BICARBONATE TAB 650 MG TAB PO SCH ×2 (08:17→22:04)
[2023-02-08 08:31] LABS: HCT 30.5 % (34.0-46.0); HGB 9.7 gm/dL (11.4-16.0); Hypochromasia Slight; MCH 29.6 pg (25.0-35.0); MCHC 31.7 g/dL (31.0-37.0); MCV 93.4 fL (80.0-100.0); Mean Platelet Volume 7.3; Platelet Count 287 k/uL (150-450); RBC 3.27 m/uL (3.80-5.40); RDW 15.2 % (11.5-15.5); WBC 14.4 k/uL (3.8-10.6)
--- NOTE | 2023-02-08 08:37 | P.PN ---
Subjective Progress Note Date: 02/08/23 Principal diagnosis: Abdominal pain This is a 67-year-old female who presented to the emergency department with complaints of abdominal pain and had not had a bowel movement for multiple days. Patient was found to have an ischemic bowel. She did have a total abdominal colectomy with ileostomy by Dr. Larsen. She did require mechanical ventilation. She does have a significant history of COPD and diabetes, and is a tobacco user. 01/29/23 Yesterday patient had a cardiac arrest while undergoing a computed tomography scan. 3 L of brown fluid removed from NG tube. Ileus was found on the computed tomography scan. Patient is reintubated and remains in the ICU. 01/30/23 Patient remains intubated. She still having significant dark output from NG tube. Plan today is for a PICC line for TPN. 02/01/23 She was extubated on Sunday night. She is currently on 2 L nasal cannula. She is seen laying in bed this morning awake and alert, but is not able to identify the date today. Still having some dark output from NG tube. 02/05/23 Patient remains in ICU. She is seen this morning sitting up in bed. NG tube was removed yesterday. Ostomy is having good output. Patient more alert today than last week. 02/06/23 Patient continues to improve, will be transferred out of ICU today. Vital signs are stable and she is on room air. Ostomy still having good output. Patient is awake and alert today. She remains on TPN. Blood sugars continue to be in the 300s. 02/08/23 Patient on the medical floor. She remains on TPN, but oral diet has been initiated. Patient seen this morning with a full liquid breakfast and reports she is tolerating it well. Vitals continue to be stable. Ostomy has good output. Patient continues to be awake and more alert. Objective - Vital Signs Vital signs: Vital Signs Temp 97.9 F 02/08/23 07:20 Pulse 100 02/08/23 07:20 Resp 17 02/08/23 07:20 BP 159/76 02/08/23 07:20 Pulse Ox 94 L 02/08/23 07:20 FiO2 21 02/07/23 08:36 Intake & Output 02/07/23 02/08/23 02/08/23 18:59 06:59 18:59 Intake Total 250 Output Total 1200 1470 Balance -1200 -1220 Intake: Oral 250 Output: Drainage 70 Left Lower Abdomen 70 Urine 1000 1350 Stool 200 50 Other: Voiding Method External Catheter External Catheter ABP, PAP, CO, CI - Last Documented Arterial Blood Pressure 162/42 - Constitutional General appearance: Present: cooperative, no acute distress - EENT Eyes: Present: EOMI, PERRLA - Neck Neck: Present: normal ROM. Absent: lymphadenopathy, rigidity - Respiratory Respiratory: bilateral: rhonchi - Cardiovascular Rhythm: regular Heart sounds: normal: S1, S2 - Gastrointestinal General gastrointestinal: Present: soft. Absent: tenderness - Integumentary Integumentary: Present: normal, normal turgor - Psychiatric Psychiatric: Present: A&O x's 3, appropriate affect - Labs CBC & Chem 7: 02/08/23 08:10 02/07/23 14:41 Labs: Abnormal Lab Results - Last 24 Hours (Table) 02/07/23 02/07/23 02/07/23 Range/Units 05:18 16:26 18:21 WBC 17.97 H (4.50-10.00) X 10*3/uL RBC 2.97 L (4.10-5.20) X 10*6/uL Hgb 8.6 L (12.0-15.0) g/dL Hct 27.9 L (37.2-46.3) % MCHC 30.8 L (32.0-37.0) g/dL MPV 9.3 L (9.5-12.2) fL POC Glucose (mg/dL) 320 H 375 H (70-110) mg/dL 02/07/23 02/08/23 02/08/23 Range/Units 21:57 06:12 08:10 WBC 14.4 H (4.50-10.00) X 10*3/uL RBC 3.27 L (4.10-5.20) X 10*6/uL Hgb 9.7 L (12.0-15.0) g/dL Hct 30.5 L (37.2-46.3) % MCHC (32.0-37.0) g/dL MPV (9.5-12.2) fL POC Glucose (mg/dL) 316 H 274 H (70-110) mg/dL Assessment and Plan (1) Ischemic bowel disease Current Visit: Yes Status: Acute Code(s): K55.9 - VASCULAR DISORDER OF INTESTINE, UNSPECIFIED SNOMED Code(s): 36043487 (2) COPD (chronic obstructive pulmonary disease) Current Visit: No Status: Acute Code(s): J44.9 - CHRONIC OBSTRUCTIVE PULMONARY DISEASE, UNSPECIFIED SNOMED Code(s): 09107399 (3) Type 2 diabetes mellitus Current Visit: No Status: Acute Code(s): E11.9 - TYPE 2 DIABETES MELLITUS WITHOUT COMPLICATIONS SNOMED Code(s): 36277109 (4) Ischemic colitis Current Visit: Yes Status: Acute Code(s): K55.9 - VASCULAR DISORDER OF INTESTINE, UNSPECIFIED SNOMED Code(s): 21044324 (5) History of below-knee amputation of right lower extremity Current Visit: No Status: Acute Code(s): Z89.511 - ACQUIRED ABSENCE OF RIGHT LEG BELOW KNEE SNOMED Code(s): 110869280356733 (6) Opioid dependence Current Visit: No Status: Acute Code(s): F11.20 - OPIOID DEPENDENCE, UNCOMPLICATED SNOMED Code(s): 99495858 Plan: Appreciate multiple consultants. Check labs in the a.m. Continue to follow diet orders as directed by surgeon. Patient seen and evaluated by nurse practitioner, physician in agreement with plan
[2023-02-08] MEDS: IPRATROPIUM-ALBUTEROL 3 ML NEB INHALATION SCH ×4 (09:10→21:26)
[2023-02-08 09:14] LABS: ALT 25 U/L (4-34); AST 20 U/L (14-36); African American GFR (CKD) 85 (>60 ml/min/1.73 sqM); Albumin 3.3 g/dL (3.5-5.0); Albumin/Globulin Ratio 0.9; Alkaline Phosphatase 171 U/L (38-126); Anion Gap 10 mmol/L; Blood Urea Nitrogen 33 mg/dL (7-17); Carbon Dioxide 24 mmol/L (22-30); Chloride 101 mmol/L (98-107); Globulin 3.7 g/dL; Glucose 239 mg/dL (74-99); Magnesium 1.9 mg/dL (1.6-2.3); Non-African American GFR(CKD) 74 (>60 ml/min/1.73 sqM); Phosphorus 3.4 mg/dL (2.5-4.5); Sodium 135 mmol/L (137-145); Total Bilirubin 0.3 mg/dL (0.2-1.3)
[2023-02-08 11:27] LABS: Glucose,Whole Blood 249 mg/dL (70-110)
--- NOTE | 2023-02-08 11:41 | P.PN ---
Subjective Patient is seen for follow-up for acute kidney injury. Status post emergent explorative laparotomy and lysis of adhesions with total abdominal colectomy and end ileostomy on 01/19/2023 She is currently awake, comfortable. Renal function has improved significantly. 24 hour urine output at 2.3 L Serum creatinine down to 0.8 Serum potassium was elevated yesterday and TPN was adjusted accordingly. Potassium is 4.0 today Objective - Vital Signs Vital signs: Vital Signs Temp 97.9 F 02/08/23 07:20 Pulse 84 02/08/23 09:23 Resp 17 02/08/23 07:20 BP 159/76 02/08/23 07:20 Pulse Ox 94 L 02/08/23 09:11 FiO2 21 02/08/23 09:11 Intake & Output 02/07/23 02/08/23 02/08/23 18:59 06:59 18:59 Intake Total 250 Output Total 1200 1470 270 Balance -1200 -1220 -270 Intake: Oral 250 Output: Drainage 70 20 Left Lower Abdomen 70 20 Urine 1000 1350 250 Stool 200 50 Other: Voiding Method External Catheter External Catheter External Catheter ABP, PAP, CO, CI - Last Documented Arterial Blood Pressure 162/42 - Exam Patient is awake, comfortable Examination of the heart S1 and S2 Examination of the lungs bilateral breath sounds are heard Abdomen is soft it is currently dressed Drains are noted. Examination lower extremity shows right BKA. No significant edema noted AIRPORT REPRESENTATIVE examination grossly intact - Labs CBC & Chem 7: 02/08/23 08:10 02/08/23 08:10 Labs: Abnormal Lab Results - Last 24 Hours (Table) 02/07/23 02/07/23 02/07/23 Range/Units 16:26 18:21 21:57 WBC (3.8-10.6) k/uL RBC (3.80-5.40) m/uL Hgb (11.4-16.0) gm/dL Hct (34.0-46.0) % Sodium (137-145) mmol/L BUN (7-17) mg/dL Glucose (74-99) mg/dL POC Glucose (mg/dL) 320 H 375 H 316 H (70-110) mg/dL Alkaline Phosphatase (38-126) U/L C-Reactive Protein (<1.0) mg/dL Albumin (3.5-5.0) g/dL Procalcitonin (0.02-0.09) ng/mL 02/08/23 02/08/23 02/08/23 Range/Units 06:12 08:10 08:10 WBC 14.4 H (3.8-10.6) k/uL RBC 3.27 L (3.80-5.40) m/uL Hgb 9.7 L (11.4-16.0) gm/dL Hct 30.5 L (34.0-46.0) % Sodium (137-145) mmol/L BUN (7-17) mg/dL Glucose (74-99) mg/dL POC Glucose (mg/dL) 274 H (70-110) mg/dL Alkaline Phosphatase (38-126) U/L C-Reactive Protein (<1.0) mg/dL Albumin (3.5-5.0) g/dL Procalcitonin 0.30 H (0.02-0.09) ng/mL 02/08/23 02/08/23 Range/Units 08:10 11:26 WBC (3.8-10.6) k/uL RBC (3.80-5.40) m/uL Hgb (11.4-16.0) gm/dL Hct (34.0-46.0) % Sodium 135 L (137-145) mmol/L BUN 33 H (7-17) mg/dL Glucose 239 H (74-99) mg/dL POC Glucose (mg/dL) 249 H (70-110) mg/dL Alkaline Phosphatase 171 H (38-126) U/L C-Reactive Protein 1.0 H (<1.0) mg/dL Albumin 3.3 L (3.5-5.0) g/dL Procalcitonin (0.02-0.09) ng/mL Assessment and Plan Assessment: 1. Acute kidney injury, ischemic ATN currently nonoliguric. Improved. No renal abnormalities mentioned on CT. UA shows WBCs 33, 2+ protein no blood. UOP was high from post ATN diuresis, now 80-100ml/hr. Cr down to 0.8 mg/dL 2. Septic shock associated with ischemic bowel 3. Lactic acidosis and anion gap metabolic acidosis associated with ischemic bowel septic shock and acute kidney injury 4. Status post PEA on 01/28/2023 5. Acute hypoxic respiratory failure, status post extubation 6. Hypokalemia associated with post-ATN diuresis, status post replacement. Potassium was elevated yesterday but improved today post-discontinuation of potassium and TPN 7. Hypertension currently maintained on hydralazine and off of cleviprex drip Plan: Repeat labs in a.m.
--- NOTE | 2023-02-08 12:06 | P.PN ---
Subjective Progress Note Date: 02/08/23 67-year-old female patient is being seen in follow-up on 01/22/2023. A complicated case of abdominal distention, stooling infection requiring surgical intervention along with multiple medical problems and comorbidities P she initially presented to us with abdominal pain and she has not had a bowel moveme nt for more than a week. She had significant abdominal distention. She was taken to the operating room and the patient underwent laparotomy, lysis of adhesions, total colectomy, ileostomy and the patient is currently postop day #3. She has been intubated and kept on a mechanical ventilator since. For now, the patient is still on a mechanical ventilator. She is a propofol which is running at 35 mcg/kg/m and she is adequately sedated and symptoms mechanical ventilator. She is on assist-control mode of mechanical ventilation at the rate of 24 with a rate of 24, tidal volume of 400, FiO2 of 30% and a PEEP of 5. Chest x-ray shows cardiomegaly. Some limited infiltrates in the left lung base and the right lower lobe lateral segment. Orotracheal tube is in a good location. The patient also has a triple-lumen catheter in the left subclavian. NG tube is also in good location. For now, the output from the NG tube is minimal. Her IV fluids are running at a rate of 75 mL an hour and the fluid is in the form of a bicarb infusion. She is on no pressors at this point in time in the urine output is in order of 5200 mL an hour. In terms of her electrolytes, the patient's sodium level has been dropping and it's down to 129. BUN is at 40 with a creatinine of 3.47 and a potassium level is at 4.2. Her serum bicarb is improved. She was as low as 13 and she is currently up to 20. Nevertheless, she is developing an acute kidney injury. Her creatinine at time of admission was 1.8 from a normal baseline. She has developed that he worsening of renal function the creatinine is up to 3.47. CAT scan of the abdomen and the pelvis that was done on 01/19/2023 showed no evidence of any hydronephrosis he had she had pancolonic distention with cecum dilatation which was up to 9.4 cm in size. At the same time, her white cell count has dropped down to 17.9 from as high as 25. Hemoglobin is stable at 9.2 and a platelet count is at 159. In terms of cultures, sputum culture has been negative. Abdominal wound cultures were taken and that is also still pending for now and the patient is covered with IV Zosyn. She is afebrile. She is having episodes of low-grade fever. She is on IV Tylenol. She remains hemodynamically stable. The patient remains nothing by mouth for now. The patient has a YASMINE drain located in the left lower quadrant and the output is in order of 200 mL over the past 8 hours. The output is serosanguineous. Her lactic acid level dropped from 7.3 down to 1.8. Blood sugars under adequate control and the patient is taking NovoLog insulin sliding scale coverage. She takes Lantus 55 units twice a day at home. She is also on a combination of Seroquel and Topamax and Prozac at home. On 01/26/2023, the patient is postop day #7. She remains on oxygen at 2 L/m nasal cannula. She is still on TPN for nutritional support. At the same time the patient was given soft and chopped diet with one-to-one supervision. She is able to swallow. She is not meeting her requirements. NG tube was removed yesterday. Ileostomy is functional and there is positive output. She has no specific complaints. She is communicating at this point in time. She is he modynamically stable. She is off the Cleviprex drip. She is on insulin signs good coverage and she is also on IV Zosyn.Blood work today shows a WD skeletal 11.3, hemoglobin 9.3 and a platelet count of 224. Sodium is at 132 with a potassium level of 3.2, BUN is 39 and the creatinine is 1.47. Sugar is 238. The patient is on Levemir insulin 30 units twice a day and she also taken a slight scale coverage. IV fluids and the form of normal saline at rate of 20 mL an hour. She is on Lovenox 30 mg subcu for DVT prophylaxis. The output from the YASMINE drain is serosanguineous and in the order of 70 mL overnight. On 01/27/2023, the patient is postoperative day #8. She is on room air oxygen for now. Doing well. TPN was discontinued and the patient is currently tolerating diet and her ileostomy is functional. No other new complaints otherwise for now. The YASMINE drain is still in place and output is serosanguineous. Hemodynamically stable. No new labs are available from today. Communicating although she is overall weak and somewhat lethargic. Remains on IV Zosyn. Remains on Lovenox for DVT prophylaxis. Remains on Levemir insulin 30 units twice a day and the NovoLog signs good coverage. 01/28/2023, the patient is postop day #9. She is awake and alert and communicating. She was taken off the TPN and currently she is tolerating oral intake. Her ileostomy is functional. YASMINE drains are in place and output is serosanguineous. She is overall weak and she is showing some progress on a daily basis. White cell count was 22 with a hemoglobin 10.2 and a platelet count of 366. BUN is 49 with a creatinine of 2.07 and sodium levels of 1:30. Potassium levels at 4.9. No other new complaints otherwise for now. She is hemodynamically stable. . Dilaudid for pain control. Levemir insulin 30 units twice a day plus a sliding scale coverage. Patient was reevaluated today on 01/29/2023, patient developed an episode of arrest yesterday, she had a 5 minute pulseless electrical activity, patient had to be intubated and mechanically ventilated. Patient had a cardiac arrest while undergoing a computed tomography scan. 3 ML's of brown fluid removed from the nasogastric tube patient was found to have ileus on the CT of the abdomen and pelvis. Received so far for fluids of IV fluids her down time was 3-5 minutes, her ventilator settings today are assist control rate of 24 pressure support of mechanical ventilation with PI of 22, inspiratory time is 0.9 FiO2 is 50%. And PEEP of 5. ABG showed a pO2 of 109 pCO2 of 30 pH of 7.38 hence FiO2 was cut down to 45%. Patient is receiving bicarb drip, she is supposed to have a PICC line placed today. Patient is status post colectomy for ischemic bowel and she was extubated at one point on 02/02. Yesterday she developed a sudden downhill course. She continues to have a functional colostomy, and she has a YASMINE drain in place. Patient remains on daptomycin and Zosyn. She is on propofol at 55 mcg/kg/m she is off norepinephrine today. And she is receiving mostly fluids. WBC count today is 20.8 hemoglobin is 8.4, electrolytes are normal BUN is 46 creatinine 2.14. Chest x-ray is suspicious for a right sideddisease/infiltrate/aspiration pneumonia although the possibility of interstitial edema is not entirely ruled out. But felt to be less likely. Endotracheal tube seems to be sitting up high in the trachea and i t will be advanced to COPD Patient was reevaluated today on 01/30/2023, remains in the ICU, intubated and mechanically ventilated. Patient is on pressure control mode of mechanical ventilation with a rate of 24 PI of 22 inspiratory time of 0.9 FiO2 45% and PEEP of 5 ABG showed a pO2 of 106 pCO2 31 pH of 7.45 hence I recommended cutting down the FiO2 to 40%. Patient remains on norepinephrine at 0.08 propofol at 55 mcg/kg/m, bicarb at 75 mL per hour. Considering her bicarb is better today, I'm recommending we stop the bicarb drip. Patient seems to have functional ileostomy nonetheless she continues to have significant output via nasogastric tube. She had 700 mL out on the last shift. She is still quite sedated, and my plan today is to consider a weaning trial if possible off sedation or at least on a lower dose of propofol. Continues to have leukocytosis with WBC count 24.3, hemoglobin is 7.5. Basic metabolic profile is normal bicarb is 21 BUN is 37 creatinine 1.80, steadily improving over the last 2 days. Patient remains on antibiotics in the form of Zosyn, and axis, and daptomycin. This is mostly for ongoing abdominal sepsis. Patient seems to have adequate output in the ileostomy. Chest x-ray is showing improvement in her right lower lobe pneumonia. Sputum is positive for gram-negative bacilli final identification is pending Reevaluated today on 01/31/2023, patient remains in the ICU, she was extubated yesterday, tolerated the extubation well. She is now on 2 L nasal cannula, she is on clevidipine at 3 mg per hour for elevated blood pressure the patient cannot take much orally. Continues to have nasogastric tube in place, still having significant amount of suctioning from the nasogastric tube. She has ostomy that seems to be functional patient is on TPN at 50 mL per hour still on Zosyn and daptomycin she is wheezing, and her chest x-ray showed bilateral infiltrates right more so than left, I suppose the patient had aspiration pneumonia , on proper antibiotics. Renal profile is normal bicarb is 21 Reevaluated today on 02/01/2023, patient remains extubated remains in the ICU, marginal clinical status. Patient continues to have nasogastric tube in place, continues to have ileus based on her flat plate of the abdomen, blood pressure remains high and she is requiring clevidipine at 6 mg per hour. Patient is receiving TPN since we we cannot start enteral feeding mostly because of an ileus. IV fluids remains at KVO patient remains on multiple antibiotics including Flagyl, cefepime and axis. For her blood pressure and recommending clonidine patch him also recommending and Norvasc. Patient is a bit agitated today but she comes down after I talked to her. Continues to have leukocytosis with WBC count of 52 hemoglobin is 10.2, and I believe her leukocytosis is secondary to her abdominal sepsis/ileus and secondary to aspiration pneumonia. Basic metabolic profile is normal and renal profile is normal Reevaluated today on 02/02/2023, remains in the ICU, remains on clevidipine drip at 6 mg per hour. Remains on TPN for her ileus. Continues to have findings of ileus in spite of functioning ostomy. Continues to have output via nasogastric tube also consistent with ileus. Patient was placed on clonidine and Norvasc and hydralazine for her high blood pressure hoping to get rid of clevidipine. Patient continues to have good urine output her pulmonary status is marginal patient is on 2 L nasal cannula, O2 saturations 95%. Patient denies any specific symptoms is relatively asymptomatic intermittently gets agitated. WBC count is coming down to 24.5 hemoglobin is 10.9 electrolytes are normal renal profile is normal liver profile is relatively normal. Blood sugar is 277 chest x-ray continues to show evidence of right sided pneumonia consistent with aspiration pneumonia, abdominal film is showing numerous dilated bowel loops consistent with previous Reevaluated today on 02/03/2023, patient remains in the ICU, remains on c levidipine at 5 mg per hour. Continues to have significant nasogastric tube output over 300 in the last shift. Her ostomy seems to be functioning well. Patient continues to have what seems to be a hyperchloremic non-anion gap metabolic acidosis. Continues on TPN, at 50 mL per hour. Clinically the patient is not in distress, she is on room air. ABG showed a pO2 of 67 pCO2 29 pH of 7.44 bicarb on the ABG is 21. Renal profile is back to normal creatinine is 0.72 Reevaluated today on , remains in the ICU, feeling better, her nasogastric output seems to be less and less in the last 24 hours, hence surgeries considering clamping the tube and possibly remove it sometime later today. Remains on clevidipine drip at 4 mg per hour. Remains on Flagyl and cefepime. Her ostomy output seems to be reasonable nonetheless the patient had significant nasogastric tube output over the last few days but seems to be less in the last 24 hours. Labs today were basically unremarkable, bicarb is 22 electrolytes are normal renal profile is normal and liver profile seems to be normal. The patient is seen today 02/05/2023 in follow-up in the intensive care unit. She is awake and alert in no acute distress. Currently maintaining O2 saturations in the 90s on room air. She is being nourished with TPN at 61 ML's per hour. D5W at 50 mL per hour. Her clevidipine has been weaned off. She remains on cefepime, Eraxis and Flagyl. She's been recovering from her surgery for a small bowel obstruction that was performed on 01/19/2023 which was a small bowel resection, ileostomy, colectomy, lysis of adhesions. Acute abdomen series is pending. White count 16.8. Hemoglobin 10.0. Sodium 140. Potassium 4.3. Bicarb 24. BUN 33. Creatinine 0.85. Glucose 137. The patient is seen today 02/06/2023 in follow-up in the intensive care unit. She is resting comfortably in bed. Awake and alert in no acute distress. Maintaining O2 saturations in the 90s on room air. She's been nourished with TPN at 70 ML's per hour. D5W at 50 MLS per hour. Small bowel series revealed dilated jejunal loops extending to the distal jejunum or proximal ileum while there appears to be a transition zone and then normalized small bowel distally extending to the patient's ostomy. Findings may reflect moderate grade obstruction. Ostomy is functioning. Sputum culture was positive for Enterobacter aerogenes. Culture from the YASMINE drain revealed no growth. Blood cultures reveal no growth. She remains on bronchodilators. Antibiotics in the form of cefepime. Lovenox for DVT prophylaxis. The patient is seen today 02/08/2023 in follow-up on the regular medical floor. She is awake and alert in no acute distress. Resting comfortably in bed. Maintaining O2 saturations in the 90s on room air. Abdominal x-ray reveals persistent air distended small bowel loops in the left-sided the abdomen though with some improvement measuring up to 6.0 cm versus 6.7 cm previously. Loops in the right side of the abdomen have improved down to 2.5 cm. Persistent but improving ileus is suggested. Small amount of air is also noted in the right side the colon now. White count 14.4. Hemoglobin 9.7. Platelets 287. Sodium 135. Potassium 4.0. Bicarb 24. BUN 33. Creatinine 0.83. Glucose 239. Alk phos 171. Pro-calcitonin 0.30. She is continued on DuoNeb inhalations. NicoDerm patch in place. Lovenox for DVT prophylaxis. Prednisone taper. She is being nourished with TPN at 70 ML's per hour. Continued on Flagyl and cefepime. Objective - Vital Signs Vital signs: Vital Signs Temp 97.9 F 02/08/23 07:20 Pulse 84 02/08/23 09:23 Resp 17 02/08/23 07:20 BP 159/76 02/08/23 07:20 Pulse Ox 94 L 02/08/23 09:11 FiO2 21 02/08/23 09:11 Intake & Output 02/07/23 02/08/23 02/08/23 18:59 06:59 18:59 Intake Total 250 Output Total 1200 1470 270 Balance -1200 -1220 -270 Intake: Oral 250 Output: Drainage 70 20 Left Lower Abdomen 70 20 Urine 1000 1350 250 Stool 200 50 Other: Voiding Method External Catheter External Catheter External Catheter ABP, PAP, CO, CI - Last Documented Arterial Blood Pressure 162/42 - Exam GENERAL EXAM: Alert, pleasant 67-year-old female, resting in bed, on room air, comfortable in no apparent distress. HEAD: Normocephalic. EYES: Normal reaction of pupils, equal size. NOSE: Nasogastric tube remains secured in place. Clear with pink turbinates. THROAT: No erythema or exudates. NECK: No masses, no JVD. CHEST: No chest wall deformity. LUNGS: Equal air entry with no crackles, wheeze, rhonchi or dullness. CVS: S1 and S2 normal with no audible murmur, regular rhythm. ABDOMEN: Ileostomy with output, incision clean and dry, normal bowel sounds, no guarding or rigidity. SPINE: No scoliosis or deformity SKIN: No rashes CENTRAL NERVOUS SYSTEM: No focal deficits, tone is normal in all 4 extremities. EXTREMITIES: Right [id number] amputation. There is no peripheral edema. No clubbing, no cyanosis. Peripheral pulses are intact. - Labs CBC & Chem 7: 02/08/23 08:10 02/08/23 08:10 Labs: Abnormal Lab Results - Last 24 Hours (Table) 02/07/23 02/07/23 02/07/23 Range/Units 16:26 18:21 21:57 WBC (3.8-10.6) k/uL RBC (3.80-5.40) m/uL Hgb (11.4-16.0) gm/dL Hct (34.0-46.0) % Sodium (137-145) mmol/L BUN (7-17) mg/dL Glucose (74-99) mg/dL POC Glucose (mg/dL) 320 H 375 H 316 H (70-110) mg/dL Alkaline Phosphatase (38-126) U/L C-Reactive Protein (<1.0) mg/dL Albumin (3.5-5.0) g/dL Procalcitonin (0.02-0.09) ng/mL 02/08/23 02/08/23 02/08/23 Range/Units 06:12 08:10 08:10 WBC 14.4 H (3.8-10.6) k/uL RBC 3.27 L (3.80-5.40) m/uL Hgb 9.7 L (11.4-16.0) gm/dL Hct 30.5 L (34.0-46.0) % Sodium (137-145) mmol/L BUN (7-17) mg/dL Glucose (74-99) mg/dL POC Glucose (mg/dL) 274 H (70-110) mg/dL Alkaline Phosphatase (38-126) U/L C-Reactive Protein (<1.0) mg/dL Albumin (3.5-5.0) g/dL Procalcitonin 0.30 H (0.02-0.09) ng/mL 02/08/23 02/08/23 Range/Units 08:10 11:26 WBC (3.8-10.6) k/uL RBC (3.80-5.40) m/uL Hgb (11.4-16.0) gm/dL Hct (34.0-46.0) % Sodium 135 L (137-145) mmol/L BUN 33 H (7-17) mg/dL Glucose 239 H (74-99) mg/dL POC Glucose (mg/dL) 249 H (70-110) mg/dL Alkaline Phosphatase 171 H (38-126) U/L C-Reactive Protein 1.0 H (<1.0) mg/dL Albumin 3.3 L (3.5-5.0) g/dL Procalcitonin (0.02-0.09) ng/mL Assessment and Plan Assessment: Acute hypoxic respiratory failure secondary to cardiac arrest requiring intubation and mechanical ventilation recovered and on room air Cardiac arrest requiring intubation and mechanical ventilation, patient had a PEA cardiac arrest, down time of 5 minutes. In-hospital cardiac arrest. This occurred on 01/28/2023 Status post exploratory laparotomy, lysis of adhesions, total colectomy, ileostomy, abdominal washout, placement of YASMINE drains, placement of wound VAC postoperative day #18 patient was extubated after this surgery on 01/23/2023 and has been off mechanical ventilation until 01/28 requiring reintubation because of PEA. Patient was extubated again on 01/30/2023. Acute kidney injury improving this is mostly a picture of acute tubular necrosis. 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 History of type 2 diabetes Stress incontinence Hypothyroidism Dyslipidemia History of depression Suspect acute aspiration pneumonia, sputum cultures have been positive for Enterobacter aerogenes, sensitive to cefepime Acute exacerbation of COPD Chronic tobacco dependence Plan: The patient was seen and evaluated Medications and labs reviewed Remains on TPN for nutritional support Currently stable and on room air Heparin for DVT prophylaxis Antibiotics per ID services Encourage increased use of the incentive spirometer Increase activity as tolerated We will continue to follow I have personally seen and examined the patient, performed the documentation and the assessment and plan as written. Number of minutes spent on the visit: 10.
--- NOTE | 2023-02-08 13:09 | P.PN ---
Subjective Progress Note Date: 02/07/23 Principal diagnosis: Ischemic colitis patient is a 67-year-old female with a past medical history significant for type 2 diabetes mellitus COPD morbid obesity did have a history of right below the knee amputation and left big toe amputation history of smoking presenting to the hospital with a 2-week history of abdominal pain , patient has been diagnosed with ischemic colitis in this patient with status post subtotal colectomy and ileostomy. Patient has been extubated as of 01/23/2023, patient did have a cardiac arrest 01/28/2023 evening requiring resuscitation and intubation On today's evaluation that is 02/07/2023 patient continues to be afebrile, the patient is breathing comfortably on room air, the patient denies chest pain shortness of breath or cough no vomiting or diarrhea has been reported by the nursing staff Objective - Vital Signs Vital signs: Vital Signs Temp 97.5 F L 02/07/23 06:56 Pulse 86 02/07/23 12:17 Resp 18 02/07/23 08:35 BP 145/75 02/07/23 06:56 Pulse Ox 98 02/07/23 08:36 FiO2 21 02/07/23 08:36 Intake & Output 02/06/23 02/07/23 02/07/23 18:59 06:59 18:59 Intake Total 1944 1054 Output Total 1590 900 Balance 354 154 Intake: IV 890 Dextrose 5% in Water 1, 50 000 ml @ 50 mls/hr IV . Q20H [facility]A Rx#:[id number] Sodium Acetate 30 meq 840 Potassium Acetate 50 meq Calcium Gluconate 1 gm Magnesium Sulfate gm 1 gm Potassium Phosphate 6 mmol In Amino Acid 5%- D15w 1,000 ml @ 70 mls/hr IV .BY DURATION MAYA Rx#: [id number] Intake, IV Titration 1054 1054 Amount Sodium Acetate 30 meq 1054 1054 Potassium Acetate 50 meq Calcium Gluconate 1 gm Magnesium Sulfate gm 1 gm Potassium Phosphate 6 mmol In Amino Acid 5%- D15w 1,000 ml @ 70 mls/hr IV .BY DURATION MAYA Rx#: [id number] Output: Drainage 40 Left Lower Abdomen 40 Urine 825 600 Stool 725 300 Other: Voiding Method Indwelling Catheter External Catheter External Catheter # Voids 2 ABP, PAP, CO, CI - Last Documented Arterial Blood Pressure 162/42 - Exam GENERAL DESCRIPTION: An elderly female lying in bed in no distress RESPIRATORY SYSTEM: Unlabored breathing , decreased intensity of breath sounds bilaterally HEART: S1 S2 regular rate and rhythm , ABDOMEN: Soft , mild distention EXTREMITIES: Right BK stump incision is healed - Labs CBC & Chem 7: 02/08/23 08:10 02/08/23 08:10 Labs: Abnormal Lab Results - Last 24 Hours (Table) 02/06/23 02/06/23 02/07/23 Range/Units 17:43 21:05 00:12 WBC (4.50-10.00) X 10*3/uL RBC (4.10-5.20) X 10*6/uL Hgb (12.0-15.0) g/dL Hct (37.2-46.3) % MCHC (32.0-37.0) g/dL MPV (9.5-12.2) fL Sodium (137-145) mmol/L Potassium (3.5-5.1) mmol/L BUN (7-17) mg/dL Glucose (74-99) mg/dL POC Glucose (mg/dL) 379 H 308 H 285 H (70-110) mg/dL 02/07/23 02/07/23 02/07/23 Range/Units 05:18 05:18 06:20 WBC 17.97 H (4.50-10.00) X 10*3/uL RBC 2.97 L (4.10-5.20) X 10*6/uL Hgb 8.6 L (12.0-15.0) g/dL Hct 27.9 L (37.2-46.3) % MCHC 30.8 L (32.0-37.0) g/dL MPV 9.3 L (9.5-12.2) fL Sodium 131 L (137-145) mmol/L Potassium 5.9 H (3.5-5.1) mmol/L BUN 36 H (7-17) mg/dL Glucose 203 H (74-99) mg/dL POC Glucose (mg/dL) 221 H (70-110) mg/dL Assessment and Plan (1) Ischemic colitis Current Visit: Yes Status: Acute Code(s): K55.9 - VASCULAR DISORDER OF INTESTINE, UNSPECIFIED SNOMED Code(s): 77881111 (2) Sepsis Current Visit: No Status: Acute Code(s): A41.9 - SEPSIS, UNSPECIFIED ORGANISM SNOMED Code(s): 11379009 Plan: 1patient presented to hospital abdominal pain has been diagnosed with ischemic colitis in this patient infusion of septic shock with low-grade fever tachycardia elevated white count elevated lactic acid source being ischemic large bowel status post subtotal colectomy and end ileostomy , patient subsequently did have worsening of her respiratory status and cardiac arrest requiring reintubation and the patient was subsequently extubated 2-Patient has shown clinical improvement the patient remains to be afebrile patient white count is up to 17,000 today and need to monitor closely, for now we will continue with cefepime and Flagyl and monitor clinical course closely at the bedside questions concerns answered Time with Patient: Less than 30
--- NOTE | 2023-02-08 13:10 | P.PN ---
Subjective Progress Note Date: 02/08/23 Principal diagnosis: Ischemic colitis patient is a 67-year-old female with a past medical history significant for type 2 diabetes mellitus COPD morbid obesity did have a history of right below the knee amputation and left big toe amputation history of smoking presenting to the hospital with a 2-week history of abdominal pain , patient has been diagnosed with ischemic colitis in this patient with status post subtotal colectomy and ileostomy. Patient has been extubated as of 01/23/2023, patient did have a cardiac arrest 01/28/2023 evening requiring resuscitation and intubation On today's evaluation that is 02/08/2023 patient remains to be afebrile, the patient is breathing comfortably on room air, the patient denies chest pain shortness of breath or cough , the patient had denies having any vomiting or diarrhea has been reported by the nursing staff, tolerating her diet Objective - Vital Signs Vital signs: Vital Signs Temp 97.9 F 02/08/23 07:20 Pulse 84 02/08/23 09:23 Resp 17 02/08/23 07:20 BP 159/76 02/08/23 07:20 Pulse Ox 94 L 02/08/23 09:11 FiO2 21 02/08/23 09:11 Intake & Output 02/07/23 02/08/23 02/08/23 18:59 06:59 18:59 Intake Total 250 Output Total 1200 1470 270 Balance -1200 -1220 -270 Intake: Oral 250 Output: Drainage 70 20 Left Lower Abdomen 70 20 Urine 1000 1350 250 Stool 200 50 Other: Voiding Method External Catheter External Catheter External Catheter ABP, PAP, CO, CI - Last Documented Arterial Blood Pressure 162/42 - Exam GENERAL DESCRIPTION: An elderly female lying in bed in no distress RESPIRATORY SYSTEM: Unlabored breathing , decreased intensity of breath sounds bilaterally HEART: S1 S2 regular rate and rhythm , ABDOMEN: Soft , mild distention EXTREMITIES: Right BK stump incision is healed - Labs CBC & Chem 7: 02/08/23 08:10 02/08/23 08:10 Labs: Abnormal Lab Results - Last 24 Hours (Table) 02/07/23 02/07/23 02/07/23 Range/Units 16:26 18:21 21:57 WBC (3.8-10.6) k/uL RBC (3.80-5.40) m/uL Hgb (11.4-16.0) gm/dL Hct (34.0-46.0) % Sodium (137-145) mmol/L BUN (7-17) mg/dL Glucose (74-99) mg/dL POC Glucose (mg/dL) 320 H 375 H 316 H (70-110) mg/dL Alkaline Phosphatase (38-126) U/L C-Reactive Protein (<1.0) mg/dL Albumin (3.5-5.0) g/dL Procalcitonin (0.02-0.09) ng/mL 02/08/23 02/08/23 02/08/23 Range/Units 06:12 08:10 08:10 WBC 14.4 H (3.8-10.6) k/uL RBC 3.27 L (3.80-5.40) m/uL Hgb 9.7 L (11.4-16.0) gm/dL Hct 30.5 L (34.0-46.0) % Sodium (137-145) mmol/L BUN (7-17) mg/dL Glucose (74-99) mg/dL POC Glucose (mg/dL) 274 H (70-110) mg/dL Alkaline Phosphatase (38-126) U/L C-Reactive Protein (<1.0) mg/dL Albumin (3.5-5.0) g/dL Procalcitonin 0.30 H (0.02-0.09) ng/mL 02/08/23 02/08/23 Range/Units 08:10 11:26 WBC (3.8-10.6) k/uL RBC (3.80-5.40) m/uL Hgb (11.4-16.0) gm/dL Hct (34.0-46.0) % Sodium 135 L (137-145) mmol/L BUN 33 H (7-17) mg/dL Glucose 239 H (74-99) mg/dL POC Glucose (mg/dL) 249 H (70-110) mg/dL Alkaline Phosphatase 171 H (38-126) U/L C-Reactive Protein 1.0 H (<1.0) mg/dL Albumin 3.3 L (3.5-5.0) g/dL Procalcitonin (0.02-0.09) ng/mL Assessment and Plan (1) Ischemic colitis Current Visit: Yes Status: Acute Code(s): K55.9 - VASCULAR DISORDER OF INTESTINE, UNSPECIFIED SNOMED Code(s): 50937179 (2) Sepsis Current Visit: No Status: Acute Code(s): A41.9 - SEPSIS, UNSPECIFIED ORGANISM SNOMED Code(s): 49531634 Plan: 1patient presented to hospital abdominal pain has been diagnosed with ischemic colitis in this patient infusion of septic shock with low-grade fever tachycardia elevated white count elevated lactic acid source being ischemic large bowel status post subtotal colectomy and end ileostomy , patient subsequently did have worsening of her respiratory status and cardiac arrest requiring reintubation and the patient was subsequently extubated 2-Patient has shown clinical improvement the patient remains to be afebrile patient white count is down to 14,000 today patient to continue with cefepime and Flagyl while inpatient hopefully finishing therapy with oral Cipro and Flagyl on discharge at the bedside questions and concerns were answered Time with Patient: Less than 30
[2023-02-08 14:25] VITALS: BMI 31.8
--- NOTE | 2023-02-08 15:42 | P.PN ---
Subjective Progress Note Date: 02/08/23 CHIEF COMPLAINT: Acute abdomen with ischemic bowel HISTORY OF PRESENT ILLNESS: Patient is status post exploratory laparotomy with total abdominal colectomy and end ileostomy, lysis of adhesions on 01/19/23. Patient on regular medical floor. Her oral intake is increasing. Her ostomy is functioning. She denies abdominal pain. Her pain is more in the right upper shoulder. Afebrile. WBC 17.97-14.4 HGB 9.7 sodium 135 potassium has normalized at 4.0 creatinine 0.83 magnesium 1.9 phosphorus 3.4 Abdominal x-ray persistent air distended small bowel loops in the left side of the abdomen though with some improvement measuring up to 6 cm versus 6.7 cm previously. Loops in the right side of the abdomen are improved down to 2.5 cm. Persistent but improving ileus is suggested. Small amount of air is also noted in the right side of the colon. X-ray results were reviewed with surgeon. The small amount of air is likely from the YASMINE drain being opened. And can be an expected finding. PHYSICAL EXAM: VITAL SIGNS: Reviewed GENERAL: Well-developed in no acute distress. HEENT: No sclera icterus. Moist buccal mucosa. Head is atraumatic, normocephalic. NECK: Supple without lymphadenopathy. CHEST: Non-labored respirations and equal bilateral excursions. CARDIOVASCULAR: Palpable 2+ radial pulses. ABDOMEN: Soft. Nondistended. Incision clean dry and intact YASMINE drain serous output. liquidy stool present in ostomy MUSCULOSKELETAL: No clubbing or cyanosis. NEUROLOGIC: Patient intubated and sedated PSYCH: Appropriate affect. Alert and oriented to person, place and time. SKIN: Well perfused. Good skin turgor. ASSESSMENT: 1. Acute abdomen with ischemic bowel 2. Hypertensive heart disease with congestive heart failure 3. Morbid obesity due to excess calories, BMI over 34.8 4. Acute renal failure due to dehydration 5. History of lower extremity amputee 6. Chronic obstructive pulmonary disease 7. Diabetes type 2, insulin-dependent with diabetic nephropathy 8. Gastroesophageal reflux disease 9. Hypotension due to hypovolemia 10. Lactic acidosis 11. Septic shock due to bowel 12. Status post total abdominal colectomy 13. Cardiac arrest 14. Severe ileus 15. Suspected aspiration pneumonia 16. Hyperkalemia resolved PLAN: -Continue full liquid diet -Wean patient off of the TPN -YASMINE drain removed by surgeon at bedside -Patient can shower -Continue to monitor electrolytes -Continue Reglan and Entereg for ileus -Continue monitor daily abdominal x-rays -Continue pain management -Continue antibiotics per ID -GI prophylaxis Protonix and DVT prophylaxis Lovenox Physician Natural Resource Technician note has been reviewed by physician. Signing provider agrees with the documented findings, assessment, and plan of care. Objective - Vital Signs Vital signs: Vital Signs Temp 96.7 F L 02/08/23 13:29 Pulse 102 H 02/08/23 13:29 Resp 15 02/08/23 13:29 BP 133/68 02/08/23 13:29 Pulse Ox 98 02/08/23 13:29 FiO2 21 02/08/23 09:11 Intake & Output 02/07/23 02/08/23 02/08/23 18:59 06:59 18:59 Intake Total 250 Output Total 1200 1470 270 Balance -1200 -1220 -270 Weight 79 kg Intake: Oral 250 Output: Drainage 70 20 Left Lower Abdomen 70 20 Urine 1000 1350 250 Stool 200 50 Other: Voiding Method External Catheter External Catheter External Catheter ABP, PAP, CO, CI - Last Documented Arterial Blood Pressure 162/42 - Labs CBC & Chem 7: 02/08/23 08:10 02/08/23 08:10 Labs: Abnormal Lab Results - Last 24 Hours (Table) 02/07/23 02/07/23 02/07/23 Range/Units 16:26 18:21 21:57 WBC (3.8-10.6) k/uL RBC (3.80-5.40) m/uL Hgb (11.4-16.0) gm/dL Hct (34.0-46.0) % Sodium (137-145) mmol/L BUN (7-17) mg/dL Glucose (74-99) mg/dL POC Glucose (mg/dL) 320 H 375 H 316 H (70-110) mg/dL Alkaline Phosphatase (38-126) U/L C-Reactive Protein (<1.0) mg/dL Albumin (3.5-5.0) g/dL Procalcitonin (0.02-0.09) ng/mL 02/08/23 02/08/23 02/08/23 Range/Units 06:12 08:10 08:10 WBC 14.4 H (3.8-10.6) k/uL RBC 3.27 L (3.80-5.40) m/uL Hgb 9.7 L (11.4-16.0) gm/dL Hct 30.5 L (34.0-46.0) % Sodium (137-145) mmol/L BUN (7-17) mg/dL Glucose (74-99) mg/dL POC Glucose (mg/dL) 274 H (70-110) mg/dL Alkaline Phosphatase (38-126) U/L C-Reactive Protein (<1.0) mg/dL Albumin (3.5-5.0) g/dL Procalcitonin 0.30 H (0.02-0.09) ng/mL 02/08/23 02/08/23 Range/Units 08:10 11:26 WBC (3.8-10.6) k/uL RBC (3.80-5.40) m/uL Hgb (11.4-16.0) gm/dL Hct (34.0-46.0) % Sodium 135 L (137-145) mmol/L BUN 33 H (7-17) mg/dL Glucose 239 H (74-99) mg/dL POC Glucose (mg/dL) 249 H (70-110) mg/dL Alkaline Phosphatase 171 H (38-126) U/L C-Reactive Protein 1.0 H (<1.0) mg/dL Albumin 3.3 L (3.5-5.0) g/dL Procalcitonin (0.02-0.09) ng/mL
[2023-02-08 16:20] LABS: Glucose,Whole Blood 328 mg/dL (70-110)
[2023-02-08 21:33] LABS: Glucose,Whole Blood 304 mg/dL (70-110)
[2023-02-08] MEDS: MIRTAZAPINE 15 MG TAB PO SCH (22:03)
[2023-02-08] MEDS: LORazepam 1 MG TAB PO PRN (22:10)
[2023-02-09 00:10] LABS: Glucose,Whole Blood 310 mg/dL (70-110)
[2023-02-09] MEDS: metroNIDAZOLE-NS PMX 500 MG in SALINE 1 100ML.BAG IVPB SCH ×4 (00:24→23:59)
[2023-02-09] MEDS: CEFEPIME 2 GM in SODIUM CHLORIDE 0.9% 100 ML IVPB SCH ×4 (00:25→23:47)
[2023-02-09] MEDS: METOCLOPRAMIDE 5 MG/ML 2 ML VIAL IVP SCH ×4 (00:25→18:27)
[2023-02-09] MEDS: INSULIN ASPART (NovoLOG) 100 UNIT/ML VIAL SQ SCH ×5 (00:25→23:47)
[2023-02-09] MEDS: ACETAMINOPHEN TAB 500 MG TAB PO SCH ×4 (00:26→18:27)
[2023-02-09] MEDS: HYDROmorphone 1 MG/ML 1 ML SYRINGE IVP PRN ×5 (00:35→20:30)
[2023-02-09 05:49] LABS: Glucose,Whole Blood 224 mg/dL (70-110)
[2023-02-09] MEDS: INSULIN DETEMIR (LEVEMIR) 100 UNIT/ML SYR SQ SCH ×2 (06:23→20:26)
[2023-02-09 07:26] LABS: African American GFR (CKD) 88 (>60 ml/min/1.73 sqM); Anion Gap 9 mmol/L; Blood Urea Nitrogen 25 mg/dL (7-17); Calcium 8.9 mg/dL (8.4-10.2); Carbon Dioxide 22 mmol/L (22-30); Chloride 103 mmol/L (98-107); Glucose 183 mg/dL (74-99); Magnesium 1.7 mg/dL (1.6-2.3); Non-African American GFR(CKD) 76 (>60 ml/min/1.73 sqM); Phosphorus 3.2 mg/dL (2.5-4.5); Potassium 4.4 mmol/L (3.5-5.1); Sodium 134 mmol/L (137-145)
--- NOTE | 2023-02-09 08:08 | P.PN ---
Subjective Principal diagnosis: Ischemic colitis The patient is a 67-year-old female essentially admitted for ischemic colitis. The patient had code after having recovery 2 weeks ago week. The patient is now extubated and seems more hemodynamically stable. Still copious amounts of gastric fluid is being extracted. Much better orientation today. She seems to be tolerating her diet but is significantly fatigued. Objective - Vital Signs Vital signs: Vital Signs Temp 97.7 F 02/09/23 07:55 Pulse 93 02/09/23 07:55 Resp 17 02/09/23 07:55 BP 133/78 02/09/23 07:55 Pulse Ox 93 L 02/09/23 07:55 FiO2 21 02/08/23 09:11 Intake & Output 02/08/23 02/09/23 02/09/23 18:59 06:59 18:59 Intake Total 200 Output Total 1770 1700 Balance -1770 -1500 Weight 79 kg Intake: Oral 200 Output: Drainage 20 Left Lower Abdomen 20 Urine 1750 1250 Stool 450 Other: Voiding Method External Catheter External Catheter ABP, PAP, CO, CI - Last Documented Arterial Blood Pressure 162/42 - Constitutional General appearance: Present: cooperative - EENT Eyes: Absent: abnormal pupil - Neck Neck: Absent: lymphadenopathy - Respiratory Respiratory: bilateral: diminished - Cardiovascular Rhythm: regular Heart sounds: normal: S1, S2 Abnormal Heart Sounds: Absent: S3 Gallop - Gastrointestinal General gastrointestinal: Present: soft. Absent: tenderness - Musculoskeletal Musculoskeletal: Present: generalized weakness - Labs CBC & Chem 7: 02/08/23 08:10 02/09/23 06:24 Labs: Abnormal Lab Results - Last 24 Hours (Table) 02/08/23 02/08/23 02/08/23 Range/Units 08:10 08:10 08:10 WBC 14.4 H (3.8-10.6) k/uL RBC 3.27 L (3.80-5.40) m/uL Hgb 9.7 L (11.4-16.0) gm/dL Hct 30.5 L (34.0-46.0) % Sodium 135 L (137-145) mmol/L BUN 33 H (7-17) mg/dL Glucose 239 H (74-99) mg/dL POC Glucose (mg/dL) (70-110) mg/dL Alkaline Phosphatase 171 H (38-126) U/L C-Reactive Protein 1.0 H (<1.0) mg/dL Albumin 3.3 L (3.5-5.0) g/dL Procalcitonin 0.30 H (0.02-0.09) ng/mL 02/08/23 02/08/23 02/08/23 Range/Units 11:26 16:19 21:32 WBC (3.8-10.6) k/uL RBC (3.80-5.40) m/uL Hgb (11.4-16.0) gm/dL Hct (34.0-46.0) % Sodium (137-145) mmol/L BUN (7-17) mg/dL Glucose (74-99) mg/dL POC Glucose (mg/dL) 249 H 328 H 304 H (70-110) mg/dL Alkaline Phosphatase (38-126) U/L C-Reactive Protein (<1.0) mg/dL Albumin (3.5-5.0) g/dL Procalcitonin (0.02-0.09) ng/mL 02/09/23 02/09/23 02/09/23 Range/Units 00:08 05:44 06:24 WBC (3.8-10.6) k/uL RBC (3.80-5.40) m/uL Hgb (11.4-16.0) gm/dL Hct (34.0-46.0) % Sodium 134 L (137-145) mmol/L BUN 25 H (7-17) mg/dL Glucose 183 H (74-99) mg/dL POC Glucose (mg/dL) 310 H 224 H (70-110) mg/dL Alkaline Phosphatase (38-126) U/L C-Reactive Protein (<1.0) mg/dL Albumin (3.5-5.0) g/dL Procalcitonin (0.02-0.09) ng/mL Assessment and Plan (1) Ischemic bowel disease Current Visit: Yes Status: Acute Code(s): K55.9 - VASCULAR DISORDER OF IN TESTINE, UNSPECIFIED SNOMED Code(s): 51911059 (2) Ischemic colitis Current Visit: Yes Status: Acute Code(s): K55.9 - VASCULAR DISORDER OF INTESTINE, UNSPECIFIED SNOMED Code(s): 30142519 (3) COPD (chronic obstructive pulmonary disease) Current Visit: No Status: Acute Code(s): J44.9 - CHRONIC OBSTRUCTIVE PULMONARY DISEASE, UNSPECIFIED SNOMED Code(s): 24133882 (4) History of below-knee amputation of right lower extremity Current Visit: No Status: Acute Code(s): Z89.511 - ACQUIRED ABSENCE OF RIGHT LEG BELOW KNEE SNOMED Code(s): 028100343729431 (5) Opioid dependence Current Visit: No Status: Acute Code(s): F11.20 - OPIOID DEPENDENCE, UNCOMPLICATED SNOMED Code(s): 71971921 (6) Type 2 diabetes mellitus Current Visit: No Status: Acute Code(s): E11.9 - TYPE 2 DIABETES MELLITUS W ITHOUT COMPLICATIONS SNOMED Code(s): 64894064 Plan: Now out of the ICU the patient is doing much better. Prognosis is improving. Check CBC and CMP in a.m. Appreciate multiple consultants input. Advancing diet and she seems to be tolerating.
--- NOTE | 2023-02-09 08:56 | XR ---
EXAMINATION TYPE: XR abdomen 2V DATE OF EXAM: 02/09/2023 CLINICAL DATA: 67-year-old female follow-up ileus, [facility] COMPARISON: 02/08/2023 FINDINGS: Lung bases are clear. Midline skin tray redemonstrated. L4-L5 posterior and interbody jamila mbar fusion again noted. Small bowel loops remain dilated to over 5.5 cm versus 6.0 cm, previously. S [place] amount of right-sided colonic air seems to be present. Otherwise, overall paucity of colonic air . No evidence for free intraperitoneal air. IMPRESSION: Ongoing pronounced generalized ileus. There may be slight improvement with small bowel lo ops measuring over 5.5 cm versus 6.0 cm, previously.
[2023-02-09] MEDS: PANTOPRAZOLE 40 MG/10 ML VIAL IV SCH (09:06)
[2023-02-09] MEDS: ENOXAPARIN 30 MG/0.3 ML SYRINGE SQ SCH (09:06)
[2023-02-09] MEDS: amLODIPine 10 MG TAB PO SCH (09:07)
[2023-02-09] MEDS: GABAPENTIN 100 MG CAP PO SCH ×2 (09:07→20:25)
[2023-02-09] MEDS: SODIUM BICARBONATE TAB 650 MG TAB PO SCH ×2 (09:07→20:25)
[2023-02-09] MEDS: hydrALAZINE HCL 50 MG TAB PO SCH ×3 (09:07→20:26)
[2023-02-09] MEDS: LEVOTHYROXINE 88 MCG TAB PO SCH (09:08)
[2023-02-09] MEDS: ALVIMOPAN 12 MG CAPSULE PO SCH (09:08)
[2023-02-09] MEDS: NICOTINE 21MG/24HR PATCH TRANSDERM SCH (09:08)
[2023-02-09] MEDS: predniSONE 20 MG TAB PO SCH (09:08)
[2023-02-09] MEDS: IPRATROPIUM-ALBUTEROL 3 ML NEB INHALATION SCH ×4 (09:09→20:03)
--- NOTE | 2023-02-09 10:33 | P.PN ---
Subjective Patient is seen for follow-up for acute kidney injury. Status post emergent explorative laparotomy and lysis of adhesions with total abdominal colectomy and end ileostomy on 01/19/2023 She is currently awake, comfortable. Renal function has improved significantly. 24 hour urine output at 2.3 L Serum creatinine down to 0.8 Serum potassium was elevated yesterday and TPN was adjusted accordingly. Potassium is 4.4 today. Patient remains on TPN. rest of the electrolytes appear within normal range. Objective - Vital Signs Vital signs: Vital Signs Temp 97.7 F 02/09/23 07:55 Pulse 93 02/09/23 07:55 Resp 17 02/09/23 07:55 BP 133/78 02/09/23 07:55 Pulse Ox 97 02/09/23 09:10 FiO2 21 02/08/23 09:11 Intake & Output 02/08/23 02/09/23 02/09/23 18:59 06:59 18:59 Intake Total 200 Output Total 1770 1700 Balance -1770 -1500 Weight 79 kg Intake: Oral 200 Output: Drainage 20 Left Lower Abdomen 20 Urine 1750 1250 Stool 450 Other: Voiding Method External Catheter External Catheter ABP, PAP, CO, CI - Last Documented Arterial Blood Pressure 162/42 - Exam Patient is awake, comfortable Examination of the heart S1 and S2 Examination of the lungs bilateral breath sounds are heard Abdomen is soft it is currently dressed Drains are noted. Examination lower extremity shows right BKA. No significant edema noted SUBSTATION WIREMAN examination grossly intact - Labs CBC & Chem 7: 02/08/23 08:10 02/09/23 06:24 Labs: Abnormal Lab Results - Last 24 Hours (Table) 02/08/23 02/08/23 02/08/23 Range/Units 08:10 11:26 16:19 Sodium (137-145) mmol/L BUN (7-17) mg/dL Glucose (74-99) mg/dL POC Glucose (mg/dL) 249 H 328 H (70-110) mg/dL Procalcitonin 0.30 H (0.02-0.09) ng/mL 02/08/23 02/09/23 02/09/23 Range/Units 21:32 00:08 05:44 Sodium (137-145) mmol/L BUN (7-17) mg/dL Glucose (74-99) mg/dL POC Glucose (mg/dL) 304 H 310 H 224 H (70-110) mg/dL Procalcitonin (0.02-0.09) ng/mL 02/09/23 Range/Units 06:24 Sodium 134 L (137-145) mmol/L BUN 25 H (7-17) mg/dL Glucose 183 H (74-99) mg/dL POC Glucose (mg/dL) (70-110) mg/dL Procalcitonin (0.02-0.09) ng/mL Assessment and Plan Assessment: 1. Acute kidney injury, ischemic ATN currently nonoliguric. Improved. No renal abnormalities mentioned on CT. UA shows WBCs 33, 2+ protein no blood. UOP was high from post ATN diuresis, now 80-100ml/hr. Cr down to 0.8 mg/dL 2. Septic shock associated with ischemic bowel 3. Lactic acidosis and anion gap metabolic acidosis associated with ischemic bowel septic shock and acute kidney injury 4. Status post PEA on 01/28/2023 5. Acute hypoxic respiratory failure, status post extubation 6. Hypokalemia associated with post-ATN diuresis, status post replacement. Potassium was elevated yesterday but improved today post-discontinuation of potassium and TPN. Potassium today is 4.4 7. Hypertension currently maintained on hydralazine and off of cleviprex drip Plan: Can switch clonidine patch to oral clonidine Continue to monitor electrolytes and encourage increased oral intake.
[2023-02-09 10:45] LABS: HCT 28.6 % (37.2-46.3); HGB 9.2 g/dL (12.0-15.0); MCH 29.6 pg (27.0-32.0); MCHC 32.2 g/dL (32.0-37.0); Mean Platelet Volume 9.2 fL (9.5-12.2); NRBC Per 100 WBC 0 /100 WBCS (0.0-0.0); Platelet Count 253 X 10*3/uL (140-440); RBC 3.11 X 10*6/uL (4.10-5.20); RDW 14.6 % (11.5-14.5); WBC 15.35 X 10*3/uL (4.50-10.00)
[2023-02-09 11:12] LABS: Glucose,Whole Blood 186 mg/dL (70-110)
--- NOTE | 2023-02-09 11:14 | P.PN ---
Subjective Progress Note Date: 02/09/23 Principal diagnosis: Clinically stable. Drains discontinued. Abdominal x-ray shows persistent dilated small bowel however patient denies any abdominal pain. Continue diet increased to ground. Continue hospitalization over the weekend with medical optimization prior to transfer to rehab. Objective - Vital Signs Vital signs: Vital Signs Temp 97.7 F 02/09/23 07:55 Pulse 93 02/09/23 07:55 Resp 17 02/09/23 07:55 BP 133/78 02/09/23 07:55 Pulse Ox 97 02/09/23 09:10 FiO2 21 02/08/23 09:11 Intake & Output 02/08/23 02/09/23 02/09/23 18:59 06:59 18:59 Intake Total 200 Output Total 1770 1700 Balance -1770 -1500 Weight 79 kg Intake: Oral 200 Output: Drainage 20 Left Lower Abdomen 20 Urine 1750 1250 Stool 450 Other: Voiding Method External Catheter External Catheter ABP, PAP, CO, CI - Last Documented Arterial Blood Pressure 162/42 - Labs CBC & Chem 7: 02/09/23 06:24 02/09/23 06:24 Labs: Abnormal Lab Results - Last 24 Hours (Table) 02/08/23 02/08/23 02/08/23 Range/Units 08:10 11:26 16:19 WBC (4.50-10.00) X 10*3/uL RBC (4.10-5.20) X 10*6/uL Hgb (12.0-15.0) g/dL Hct (37.2-46.3) % RDW (11.5-14.5) % MPV (9.5-12.2) fL Sodium (137-145) mmol/L BUN (7-17) mg/dL Glucose (74-99) mg/dL POC Glucose (mg/dL) 249 H 328 H (70-110) mg/dL Procalcitonin 0.30 H (0.02-0.09) ng/mL 02/08/23 02/09/23 02/09/23 Range/Units 21:32 00:08 05:44 WBC (4.50-10.00) X 10*3/uL RBC (4.10-5.20) X 10*6/uL Hgb (12.0-15.0) g/dL Hct (37.2-46.3) % RDW (11.5-14.5) % MPV (9.5-12.2) fL Sodium (137-145) mmol/L BUN (7-17) mg/dL Glucose (74-99) mg/dL POC Glucose (mg/dL) 304 H 310 H 224 H (70-110) mg/dL Procalcitonin (0.02-0.09) ng/mL 02/09/23 02/09/23 02/09/23 Range/Units 06:24 06:24 11:11 WBC 15.35 H (4.50-10.00) X 10*3/uL RBC 3.11 L (4.10-5.20) X 10*6/uL Hgb 9.2 L (12.0-15.0) g/dL Hct 28.6 L (37.2-46.3) % RDW 14.6 H (11.5-14.5) % MPV 9.2 L (9.5-12.2) fL Sodium 134 L (137-145) mmol/L BUN 25 H (7-17) mg/dL Glucose 183 H (74-99) mg/dL POC Glucose (mg/dL) 186 H (70-110) mg/dL Procalcitonin (0.02-0.09) ng/mL
[2023-02-09] MEDS: FLUCONAZOLE 100 MG TAB PO SCH (12:45)
--- NOTE | 2023-02-09 12:45 | P.PN ---
Subjective Progress Note Date: 02/09/23 Principal diagnosis: Ischemic colitis patient is a 67-year-old female with a past medical history significant for type 2 diabetes mellitus COPD morbid obesity did have a history of right below the knee amputation and left big toe amputation history of smoking presenting to the hospital with a 2-week history of abdominal pain , patient has been diagnosed with ischemic colitis in this patient with status post subtotal colectomy and ileostomy. Patient has been extubated as of 01/23/2023, patient did have a cardiac arrest 01/28/2023 evening requiring resuscitation and intubation On today's evaluation that is 02/09/2023 patient continues to be afebrile, the patient is breathing comfortably on room air, the patient denies chest pain shortness of breath or cough , the patient denies nausea vomiting and no diarrhea has been reported by the nursing staff, the patient is tolerating her diet Objective - Vital Signs Vital signs: Vital Signs Temp 97.7 F 02/09/23 07:55 Pulse 93 02/09/23 07:55 Resp 17 02/09/23 07:55 BP 133/78 02/09/23 07:55 Pulse Ox 97 02/09/23 09:10 FiO2 21 02/08/23 09:11 Intake & Output 02/08/23 02/09/23 02/09/23 18:59 06:59 18:59 Intake Total 200 Output Total 1770 1700 Balance -1770 -1500 Weight 79 kg Intake: Oral 200 Output: Drainage 20 Left Lower Abdomen 20 Urine 1750 1250 Stool 450 Other: Voiding Method External Catheter External Catheter ABP, PAP, CO, CI - Last Documented Arterial Blood Pressure 162/42 - Exam GENERAL DESCRIPTION: An elderly female lying in bed in no distress RESPIRATORY SYSTEM: Unlabored breathing , decreased intensity of breath sounds bilaterally HEART: S1 S2 regular rate and rhythm , ABDOMEN: Soft , mild distention EXTREMITIES: Right BK stump incision is healed - Labs CBC & Chem 7: 02/09/23 06:24 02/09/23 06:24 Labs: Abnormal Lab Results - Last 24 Hours (Table) 02/08/23 02/08/23 02/09/23 Range/Units 16:19 21:32 00:08 WBC (4.50-10.00) X 10*3/uL RBC (4.10-5.20) X 10*6/uL Hgb (12.0-15.0) g/dL Hct (37.2-46.3) % RDW (11.5-14.5) % MPV (9.5-12.2) fL Sodium (137-145) mmol/L BUN (7-17) mg/dL Glucose (74-99) mg/dL POC Glucose (mg/dL) 328 H 304 H 310 H (70-110) mg/dL 02/09/23 02/09/23 02/09/23 Range/Units 05:44 06:24 06:24 WBC 15.35 H (4.50-10.00) X 10*3/uL RBC 3.11 L (4.10-5.20) X 10*6/uL Hgb 9.2 L (12.0-15.0) g/dL Hct 28.6 L (37.2-46.3) % RDW 14.6 H (11.5-14.5) % MPV 9.2 L (9.5-12.2) fL Sodium 134 L (137-145) mmol/L BUN 25 H (7-17) mg/dL Glucose 183 H (74-99) mg/dL POC Glucose (mg/dL) 224 H (70-110) mg/dL 02/09/23 Range/Units 11:11 WBC (4.50-10.00) X 10*3/uL RBC (4.10-5.20) X 10*6/uL Hgb (12.0-15.0) g/dL Hct (37.2-46.3) % RDW (11.5-14.5) % MPV (9.5-12.2) fL Sodium (137-145) mmol/L BUN (7-17) mg/dL Glucose (74-99) mg/dL POC Glucose (mg/dL) 186 H (70-110) mg/dL Assessment and Plan (1) Ischemic colitis Current Visit: Yes Status: Acute Code(s): K55.9 - VASCULAR DISORDER OF INTESTINE, UNSPECIFIED SNOMED Code(s): 00268433 (2) Sepsis Current Visit: No Status: Acute Code(s): A41.9 - SEPSIS, UNSPECIFIED ORGANISM SNOMED Code(s): 81700305 Plan: 1patient presented to hospital abdominal pain has been diagnosed with ischemic colitis in this patient infusion of septic shock with low-grade fever tachycardia elevated white count elevated lactic acid source being ischemic large bowel status post subtotal colectomy and end ileostomy , patient subsequently did have worsening of her respiratory status and cardiac arrest requiring reintubation and the patient was subsequently extubated 2-Patient has shown clinical improvement the patient remains to be afebrile patient white count is up to 15,000 at this point we will continue patient c efepime and Flagyl however add Diflucan and see clinical response monitor clinical course closely Time with Patient: Less than 30
--- NOTE | 2023-02-09 14:33 | P.PN ---
Subjective Progress Note Date: 02/09/23 67-year-old female patient is being seen in follow-up on 01/22/2023. A complicated case of abdominal distention, stooling infection requiring surgical intervention along with multiple medical problems and comorbidities P she initially presented to us with abdominal pain and she has not had a bowel moveme nt for more than a week. She had significant abdominal distention. She was taken to the operating room and the patient underwent laparotomy, lysis of adhesions, total colectomy, ileostomy and the patient is currently postop day #3. She has been intubated and kept on a mechanical ventilator since. For now, the patient is still on a mechanical ventilator. She is a propofol which is running at 35 mcg/kg/m and she is adequately sedated and symptoms mechanical ventilator. She is on assist-control mode of mechanical ventilation at the rate of 24 with a rate of 24, tidal volume of 400, FiO2 of 30% and a PEEP of 5. Chest x-ray shows cardiomegaly. Some limited infiltrates in the left lung base and the right lower lobe lateral segment. Orotracheal tube is in a good location. The patient also has a triple-lumen catheter in the left subclavian. NG tube is also in good location. For now, the output from the NG tube is minimal. Her IV fluids are running at a rate of 75 mL an hour and the fluid is in the form of a bicarb infusion. She is on no pressors at this point in time in the urine output is in order of 5200 mL an hour. In terms of her electrolytes, the patient's sodium level has been dropping and it's down to 129. BUN is at 40 with a creatinine of 3.47 and a potassium level is at 4.2. Her serum bicarb is improved. She was as low as 13 and she is currently up to 20. Nevertheless, she is developing an acute kidney injury. Her creatinine at time of admission was 1.8 from a normal baseline. She has developed that he worsening of renal function the creatinine is up to 3.47. CAT scan of the abdomen and the pelvis that was done on 01/19/2023 showed no evidence of any hydronephrosis he had she had pancolonic distention with cecum dilatation which was up to 9.4 cm in size. At the same time, her white cell count has dropped down to 17.9 from as high as 25. Hemoglobin is stable at 9.2 and a platelet count is at 159. In terms of cultures, sputum culture has been negative. Abdominal wound cultures were taken and that is also still pending for now and the patient is covered with IV Zosyn. She is afebrile. She is having episodes of low-grade fever. She is on IV Tylenol. She remains hemodynamically stable. The patient remains nothing by mouth for now. The patient has a YASMINE drain located in the left lower quadrant and the output is in order of 200 mL over the past 8 hours. The output is serosanguineous. Her lactic acid level dropped from 7.3 down to 1.8. Blood sugars under adequate control and the patient is taking NovoLog insulin sliding scale coverage. She takes Lantus 55 units twice a day at home. She is also on a combination of Seroquel and Topamax and Prozac at home. On 01/26/2023, the patient is postop day #7. She remains on oxygen at 2 L/m nasal cannula. She is still on TPN for nutritional support. At the same time the patient was given soft and chopped diet with one-to-one supervision. She is able to swallow. She is not meeting her requirements. NG tube was removed yesterday. Ileostomy is functional and there is positive output. She has no specific complaints. She is communicating at this point in time. She is he modynamically stable. She is off the Cleviprex drip. She is on insulin signs good coverage and she is also on IV Zosyn.Blood work today shows a WD skeletal 11.3, hemoglobin 9.3 and a platelet count of 224. Sodium is at 132 with a potassium level of 3.2, BUN is 39 and the creatinine is 1.47. Sugar is 238. The patient is on Levemir insulin 30 units twice a day and she also taken a slight scale coverage. IV fluids and the form of normal saline at rate of 20 mL an hour. She is on Lovenox 30 mg subcu for DVT prophylaxis. The output from the YASMINE drain is serosanguineous and in the order of 70 mL overnight. On 01/27/2023, the patient is postoperative day #8. She is on room air oxygen for now. Doing well. TPN was discontinued and the patient is currently tolerating diet and her ileostomy is functional. No other new complaints otherwise for now. The YASMINE drain is still in place and output is serosanguineous. Hemodynamically stable. No new labs are available from today. Communicating although she is overall weak and somewhat lethargic. Remains on IV Zosyn. Remains on Lovenox for DVT prophylaxis. Remains on Levemir insulin 30 units twice a day and the NovoLog signs good coverage. 01/28/2023, the patient is postop day #9. She is awake and alert and communicating. She was taken off the TPN and currently she is tolerating oral intake. Her ileostomy is functional. YASMINE drains are in place and output is serosanguineous. She is overall weak and she is showing some progress on a daily basis. White cell count was 22 with a hemoglobin 10.2 and a platelet count of 366. BUN is 49 with a creatinine of 2.07 and sodium levels of 1:30. Potassium levels at 4.9. No other new complaints otherwise for now. She is hemodynamically stable. . Dilaudid for pain control. Levemir insulin 30 units twice a day plus a sliding scale coverage. Patient was reevaluated today on 01/29/2023, patient developed an episode of arrest yesterday, she had a 5 minute pulseless electrical activity, patient had to be intubated and mechanically ventilated. Patient had a cardiac arrest while undergoing a computed tomography scan. 3 ML's of brown fluid removed from the nasogastric tube patient was found to have ileus on the CT of the abdomen and pelvis. Received so far for fluids of IV fluids her down time was 3-5 minutes, her ventilator settings today are assist control rate of 24 pressure support of mechanical ventilation with PI of 22, inspiratory time is 0.9 FiO2 is 50%. And PEEP of 5. ABG showed a pO2 of 109 pCO2 of 30 pH of 7.38 hence FiO2 was cut down to 45%. Patient is receiving bicarb drip, she is supposed to have a PICC line placed today. Patient is status post colectomy for ischemic bowel and she was extubated at one point on 02/02. Yesterday she developed a sudden downhill course. She continues to have a functional colostomy, and she has a YASMINE drain in place. Patient remains on daptomycin and Zosyn. She is on propofol at 55 mcg/kg/m she is off norepinephrine today. And she is receiving mostly fluids. WBC count today is 20.8 hemoglobin is 8.4, electrolytes are normal BUN is 46 creatinine 2.14. Chest x-ray is suspicious for a right sideddisease/infiltrate/aspiration pneumonia although the possibility of interstitial edema is not entirely ruled out. But felt to be less likely. Endotracheal tube seems to be sitting up high in the trachea and i t will be advanced to COPD Patient was reevaluated today on 01/30/2023, remains in the ICU, intubated and mechanically ventilated. Patient is on pressure control mode of mechanical ventilation with a rate of 24 PI of 22 inspiratory time of 0.9 FiO2 45% and PEEP of 5 ABG showed a pO2 of 106 pCO2 31 pH of 7.45 hence I recommended cutting down the FiO2 to 40%. Patient remains on norepinephrine at 0.08 propofol at 55 mcg/kg/m, bicarb at 75 mL per hour. Considering her bicarb is better today, I'm recommending we stop the bicarb drip. Patient seems to have functional ileostomy nonetheless she continues to have significant output via nasogastric tube. She had 700 mL out on the last shift. She is still quite sedated, and my plan today is to consider a weaning trial if possible off sedation or at least on a lower dose of propofol. Continues to have leukocytosis with WBC count 24.3, hemoglobin is 7.5. Basic metabolic profile is normal bicarb is 21 BUN is 37 creatinine 1.80, steadily improving over the last 2 days. Patient remains on antibiotics in the form of Zosyn, and axis, and daptomycin. This is mostly for ongoing abdominal sepsis. Patient seems to have adequate output in the ileostomy. Chest x-ray is showing improvement in her right lower lobe pneumonia. Sputum is positive for gram-negative bacilli final identification is pending Reevaluated today on 01/31/2023, patient remains in the ICU, she was extubated yesterday, tolerated the extubation well. She is now on 2 L nasal cannula, she is on clevidipine at 3 mg per hour for elevated blood pressure the patient cannot take much orally. Continues to have nasogastric tube in place, still having significant amount of suctioning from the nasogastric tube. She has ostomy that seems to be functional patient is on TPN at 50 mL per hour still on Zosyn and daptomycin she is wheezing, and her chest x-ray showed bilateral infiltrates right more so than left, I suppose the patient had aspiration pneumonia , on proper antibiotics. Renal profile is normal bicarb is 21 Reevaluated today on 02/01/2023, patient remains extubated remains in the ICU, marginal clinical status. Patient continues to have nasogastric tube in place, continues to have ileus based on her flat plate of the abdomen, blood pressure remains high and she is requiring clevidipine at 6 mg per hour. Patient is receiving TPN since we we cannot start enteral feeding mostly because of an ileus. IV fluids remains at KVO patient remains on multiple antibiotics including Flagyl, cefepime and axis. For her blood pressure and recommending clonidine patch him also recommending and Norvasc. Patient is a bit agitated today but she comes down after I talked to her. Continues to have leukocytosis with WBC count of 52 hemoglobin is 10.2, and I believe her leukocytosis is secondary to her abdominal sepsis/ileus and secondary to aspiration pneumonia. Basic metabolic profile is normal and renal profile is normal Reevaluated today on 02/02/2023, remains in the ICU, remains on clevidipine drip at 6 mg per hour. Remains on TPN for her ileus. Continues to have findings of ileus in spite of functioning ostomy. Continues to have output via nasogastric tube also consistent with ileus. Patient was placed on clonidine and Norvasc and hydralazine for her high blood pressure hoping to get rid of clevidipine. Patient continues to have good urine output her pulmonary status is marginal patient is on 2 L nasal cannula, O2 saturations 95%. Patient denies any specific symptoms is relatively asymptomatic intermittently gets agitated. WBC count is coming down to 24.5 hemoglobin is 10.9 electrolytes are normal renal profile is normal liver profile is relatively normal. Blood sugar is 277 chest x-ray continues to show evidence of right sided pneumonia consistent with aspiration pneumonia, abdominal film is showing numerous dilated bowel loops consistent with previous Reevaluated today on 02/03/2023, patient remains in the ICU, remains on c levidipine at 5 mg per hour. Continues to have significant nasogastric tube output over 300 in the last shift. Her ostomy seems to be functioning well. Patient continues to have what seems to be a hyperchloremic non-anion gap metabolic acidosis. Continues on TPN, at 50 mL per hour. Clinically the patient is not in distress, she is on room air. ABG showed a pO2 of 67 pCO2 29 pH of 7.44 bicarb on the ABG is 21. Renal profile is back to normal creatinine is 0.72 Reevaluated today on , remains in the ICU, feeling better, her nasogastric output seems to be less and less in the last 24 hours, hence surgeries considering clamping the tube and possibly remove it sometime later today. Remains on clevidipine drip at 4 mg per hour. Remains on Flagyl and cefepime. Her ostomy output seems to be reasonable nonetheless the patient had significant nasogastric tube output over the last few days but seems to be less in the last 24 hours. Labs today were basically unremarkable, bicarb is 22 electrolytes are normal renal profile is normal and liver profile seems to be normal. The patient is seen today 02/05/2023 in follow-up in the intensive care unit. She is awake and alert in no acute distress. Currently maintaining O2 saturations in the 90s on room air. She is being nourished with TPN at 61 ML's per hour. D5W at 50 mL per hour. Her clevidipine has been weaned off. She remains on cefepime, Eraxis and Flagyl. She's been recovering from her surgery for a small bowel obstruction that was performed on 01/19/2023 which was a small bowel resection, ileostomy, colectomy, lysis of adhesions. Acute abdomen series is pending. White count 16.8. Hemoglobin 10.0. Sodium 140. Potassium 4.3. Bicarb 24. BUN 33. Creatinine 0.85. Glucose 137. The patient is seen today 02/06/2023 in follow-up in the intensive care unit. She is resting comfortably in bed. Awake and alert in no acute distress. Maintaining O2 saturations in the 90s on room air. She's been nourished with TPN at 70 ML's per hour. D5W at 50 MLS per hour. Small bowel series revealed dilated jejunal loops extending to the distal jejunum or proximal ileum while there appears to be a transition zone and then normalized small bowel distally extending to the patient's ostomy. Findings may reflect moderate grade obstruction. Ostomy is functioning. Sputum culture was positive for Enterobacter aerogenes. Culture from the YASMINE drain revealed no growth. Blood cultures reveal no growth. She remains on bronchodilators. Antibiotics in the form of cefepime. Lovenox for DVT prophylaxis. The patient is seen today 02/08/2023 in follow-up on the regular medical floor. She is awake and alert in no acute distress. Resting comfortably in bed. Maintaining O2 saturations in the 90s on room air. Abdominal x-ray reveals persistent air distended small bowel loops in the left-sided the abdomen though with some improvement measuring up to 6.0 cm versus 6.7 cm previously. Loops in the right side of the abdomen have improved down to 2.5 cm. Persistent but improving ileus is suggested. Small amount of air is also noted in the right side the colon now. White count 14.4. Hemoglobin 9.7. Platelets 287. Sodium 135. Potassium 4.0. Bicarb 24. BUN 33. Creatinine 0.83. Glucose 239. Alk phos 171. Pro-calcitonin 0.30. She is continued on DuoNeb inhalations. NicoDerm patch in place. Lovenox for DVT prophylaxis. Prednisone taper. She is being nourished with TPN at 70 ML's per hour. Continued on Flagyl and cefepime. The patient is seen today 02/09/2023 in follow-up on the regular medical floor. She is currently sitting up in bed. Awake and alert in no acute distress. She continues to maintain good O2 saturations in the 90s on room air. She's been nourished with TPN. Normal saline at 10 MLS per hour. X-ray of the abdomen reveals ongoing pronounced generalized ileus. There may be slight improvement with small bowel loops measuring 5.5 cm versus 6.0 cm previously. Sputum culture was positive for Enterobacter aerogenes back on 01/28/2023. Gram stain from body fluid culture from the Diaz-Benítez drain revealed no growth. White count 15.3. Hemoglobin 9.2. Platelets 253. Sodium 134. Potassium 4.4. Bicarb 22. BUN 25. Creatinine 0.81. Glucose 183. She is continued on DuoNeb inhalations. NicoDerm patch in place. Lovenox for DVT prophylaxis. Prednisone taper. She is being nourished with TPN at 70 ML's per hour. Continued on Flagyl and cefepime. Objective - Vital Signs Vital signs: Vital Signs Temp 97.7 F 02/09/23 07:55 Pulse 79 02/09/23 12:00 Resp 17 02/09/23 07:55 BP 133/78 02/09/23 07:55 Pulse Ox 97 02/09/23 09:10 FiO2 21 02/08/23 09:11 Intake & Output 02/08/23 02/09/23 02/09/23 18:59 06:59 18:59 Intake Total 200 Output Total 1770 1700 Balance -1770 -1500 Weight 79 kg 79 kg Intake: Oral 200 Output: Drainage 20 Left Lower Abdomen 20 Urine 1750 1250 Stool 450 Other: Voiding Method External Catheter External Catheter Incontinent ABP, PAP, CO, CI - Last Documented Arterial Blood Pressure 162/42 - Exam GENERAL EXAM: Alert, pleasant 67-year-old female, on room air, comfortable in no apparent distress. HEAD: Normocephalic. EYES: Normal reaction of pupils, equal size. NOSE: Nasogastric tube remains secured in place. Clear with pink turbinates. THROAT: No erythema or exudates. NECK: No masses, no JVD. CHEST: No chest wall deformity. LUNGS: Equal air entry with no crackles, wheeze, rhonchi or dullness. CVS: S1 and S2 normal with no audible murmur, regular rhythm. ABDOMEN: Ileostomy with output, incision clean and dry, normal bowel sounds, no guarding or rigidity. SPINE: No scoliosis or deformity SKIN: No rashes CENTRAL NERVOUS SYSTEM: No focal deficits, tone is normal in all 4 extremities. EXTREMITIES: Right [id number] amputation. There is no peripheral edema. No clubbing, no cyanosis. Peripheral pulses are intact. - Labs CBC & Chem 7: 02/09/23 06:24 02/09/23 06:24 Labs: Abnormal Lab Results - Last 24 Hours (Table) 02/08/23 02/08/23 02/09/23 Range/Units 16:19 21:32 00:08 WBC (4.50-10.00) X 10*3/uL RBC (4.10-5.20) X 10*6/uL Hgb (12.0-15.0) g/dL Hct (37.2-46.3) % RDW (11.5-14.5) % MPV (9.5-12.2) fL Sodium (137-145) mmol/L BUN (7-17) mg/dL Glucose (74-99) mg/dL POC Glucose (mg/dL) 328 H 304 H 310 H (70-110) mg/dL 02/09/23 02/09/23 02/09/23 Range/Units 05:44 06:24 06:24 WBC 15.35 H (4.50-10.00) X 10*3/uL RBC 3.11 L (4.10-5.20) X 10*6/uL Hgb 9.2 L (12.0-15.0) g/dL Hct 28.6 L (37.2-46.3) % RDW 14.6 H (11.5-14.5) % MPV 9.2 L (9.5-12.2) fL Sodium 134 L (137-145) mmol/L BUN 25 H (7-17) mg/dL Glucose 183 H (74-99) mg/dL POC Glucose (mg/dL) 224 H (70-110) mg/dL 02/09/23 Range/Units 11:11 WBC (4.50-10.00) X 10*3/uL RBC (4.10-5.20) X 10*6/uL Hgb (12.0-15.0) g/dL Hct (37.2-46.3) % RDW (11.5-14.5) % MPV (9.5-12.2) fL Sodium (137-145) mmol/L BUN (7-17) mg/dL Glucose (74-99) mg/dL POC Glucose (mg/dL) 186 H (70-110) mg/dL Assessment and Plan Assessment: Acute hypoxic respiratory failure secondary to cardiac arrest requiring intubation and mechanical ventilation recovered and on room air Cardiac arrest requiring intubation and mechanical ventilation, patient had a PEA cardiac arrest, down time of 5 minutes. In-hospital cardiac arrest. This occurred on 01/28/2023 Status post exploratory laparotomy, lysis of adhesions, total colectomy, ileostomy, abdominal washout, placement of YASMINE drains, placement of wound VAC postoperative day #18 patient was extubated after this surgery on 01/23/2023 and has been off mechanical ventilation until 01/28 requiring reintubation because of PEA. Patient was extubated again on 01/30/2023. Acute kidney injury improving this is mostly a picture of acute tubular necrosis. 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 Number of minutes spent on the visit: 10.
[2023-02-09 16:35] LABS: Glucose,Whole Blood 350 mg/dL (70-110)
[2023-02-09 20:23] LABS: Glucose,Whole Blood 259 mg/dL (70-110)
[2023-02-09] MEDS: cloNIDine HCL 0.2 MG TAB PO SCH (20:25)
[2023-02-09] MEDS: MIRTAZAPINE 15 MG TAB PO SCH (20:28)
[2023-02-09 23:46] LABS: Glucose,Whole Blood 227 mg/dL (70-110)
[2023-02-10] MEDS: ACETAMINOPHEN TAB 500 MG TAB PO SCH ×5 (00:04→23:42)
[2023-02-10] MEDS: METOCLOPRAMIDE 5 MG/ML 2 ML VIAL IVP SCH ×5 (00:53→23:42)
[2023-02-10] MEDS: HYDROmorphone 1 MG/ML 1 ML SYRINGE IVP PRN ×6 (04:46→21:36)
[2023-02-10 05:03] LABS: Glucose,Whole Blood 81 mg/dL (70-110)
[2023-02-10] MEDS: INSULIN ASPART (NovoLOG) 100 UNIT/ML VIAL SQ SCH ×4 (05:43→23:42)
[2023-02-10] MEDS: INSULIN DETEMIR (LEVEMIR) 100 UNIT/ML SYR SQ SCH ×2 (08:04→21:26)
[2023-02-10] MEDS: IPRATROPIUM-ALBUTEROL 3 ML NEB INHALATION SCH ×4 (08:25→20:18)
--- NOTE | 2023-02-10 09:00 | P.PN ---
Subjective Progress Note Date: 02/10/23 Principal diagnosis: This is a 67-year-old female seen in consultation because of acute kidney injury and electrolyte imbalance, postoperative emergent exploratory laparotomy, lysis of adhesion total abdominal colectomy and end ileostomy on 01/19/2023 She was on current total parenteral nutrition currently is off of it she is eating small amounts no nausea vomiting. She is comfortable Vital signs are stable. Her creatinine is down to normal, electrolytes unremarkable except for a sodium of 134. Urine output is 2600 mL Objective - Vital Signs Vital signs: Vital Signs Temp 98.4 F 02/10/23 07:30 Pulse 82 02/10/23 08:43 Resp 19 02/10/23 07:30 BP 114/62 02/10/23 07:30 Pulse Ox 97 02/10/23 07:30 FiO2 21 02/08/23 09:11 Intake & Output 02/09/23 02/10/23 02/10/23 18:59 06:59 18:59 Intake Total 268 Output Total 1700 900 Balance -1700 -632 Weight 79 kg Intake: IV 100 metroNIDAZOLE-NS PMX 500 100 mg In Saline 1 100ml.bag @ 100 mls/hr IVPB Q8HR MAYA Rx#:[id number] Intake, IV Titration 168 Amount Cefepime 2 gm In Sodium 100 Chloride 0.9% 100 ml @ 25 mls/hr IVPB Q8HR MAYA Rx# :[id number] Mvi, Adult No.4 with Vit 68 K 10 ml Trace (Conc-1Ml/ Dose) 1 ml Sodium Acetate 40 meq Calcium Gluconate 1 gm Magnesium Sulfate gm 1 gm Sodium Phosphate 9 mmol Potassium Chloride 20 meq In Amino Acid 5%- D15w 1,000 ml @ 35 mls/hr IV .BY DURATION MAYA Rx#: [id number] Output: Urine 1700 800 Stool 100 Other: Voiding Method Incontinent # Voids 1 ABP, PAP, CO, CI - Last Documented Arterial Blood Pressure 162/42 Awake alert oriented HEENT exam no JVP neck is supple no facial asymmetry Lungs clear to auscultation good air entry Heart sounds unremarkable Abdomen soft nontender ileostomy noted Extremity exam was no edema Neurologically awake alert oriented - Labs CBC & Chem 7: 02/09/23 06:24 02/09/23 06:24 Labs: Abnormal Lab Results - Last 24 Hours (Table) 05/02/09/23 02/09/23 Range/Units 06:24 11:11 16:34 WBC 15.35 H (4.50-10.00) X 10*3/uL RBC 3.11 L (4.10-5.20) X 10*6/uL Hgb 9.2 L (12.0-15.0) g/dL Hct 28.6 L (37.2-46.3) % RDW 14.6 H (11.5-14.5) % MPV 9.2 L (9.5-12.2) fL POC Glucose (mg/dL) 186 H 350 H (70-110) mg/dL 02/09/23 02/09/23 Range/Units 20:21 23:43 WBC (4.50-10.00) X 10*3/uL RBC (4.10-5.20) X 10*6/uL Hgb (12.0-15.0) g/dL Hct (37.2-46.3) % RDW (11.5-14.5) % MPV (9.5-12.2) fL POC Glucose (mg/dL) 259 H 227 H (70-110) mg/dL Assessment and Plan Assessment: Impression 1. Acute kidney injury secondary to prerenal from surgery especially lap lysis of adhesions, colectomy and end ileostomy on 01/19/2023 was on TPN. Renal function is normal and electrolytes are unremarkable except for sodium 134. 2. Was on TPN which has been discontinued currently on no IV fluids Recommendation 1. Maintain hydration orally possible and watch her labs closely. We will continue to follow her and make sure that her oral intake is adequate
[2023-02-10] MEDS: PANTOPRAZOLE 40 MG/10 ML VIAL IV SCH (09:14)
[2023-02-10] MEDS: LEVOTHYROXINE 88 MCG TAB PO SCH (09:14)
[2023-02-10] MEDS: metroNIDAZOLE-NS PMX 500 MG in SALINE 1 100ML.BAG IVPB SCH ×3 (09:16→23:43)
[2023-02-10] MEDS: NICOTINE 21MG/24HR PATCH TRANSDERM SCH (09:16)
[2023-02-10] MEDS: ENOXAPARIN 30 MG/0.3 ML SYRINGE SQ SCH (09:16)
[2023-02-10] MEDS: CEFEPIME 2 GM in SODIUM CHLORIDE 0.9% 100 ML IVPB SCH ×3 (09:16→23:43)
[2023-02-10] MEDS: FLUCONAZOLE 100 MG TAB PO SCH (09:17)
[2023-02-10] MEDS: predniSONE 20 MG TAB PO SCH (09:17)
[2023-02-10] MEDS: amLODIPine 10 MG TAB PO SCH (09:17)
[2023-02-10] MEDS: GABAPENTIN 100 MG CAP PO SCH ×2 (09:17→21:27)
[2023-02-10] MEDS: hydrALAZINE HCL 50 MG TAB PO SCH ×3 (09:17→21:22)
[2023-02-10] MEDS: cloNIDine HCL 0.2 MG TAB PO SCH ×2 (09:17→21:27)
[2023-02-10] MEDS: SODIUM BICARBONATE TAB 650 MG TAB PO SCH ×2 (09:19→21:27)
--- NOTE | 2023-02-10 09:57 | P.PN ---
Progress Note - Text Progress Note Date: 02/10/23 Patient remains clinically unchanged from yesterday. She is tolerating diet. She has minimal complaints of abdominal pain. On exam vital signs are stable. Abdomen soft. Patient will receive supportive care.
[2023-02-10 10:10] LABS: ALT 26 U/L (8-44); AST 12 U/L (13-35); African American GFR (CKD) 83.5 (60.0-200.0); Albumin 3.3 g/dL (3.8-4.9); Albumin/Globulin Ratio 1.04 (1.60-3.17); Alkaline Phosphatase 166 U/L (41-126); BUN/Creat Ratio 27.29 Ratio (12.00-20.00); Blood Urea Nitrogen 22.9 mg/dL (9.0-27.0); Carbon Dioxide 22.4 mmol/L (20.0-27.5); Chloride 101 mmol/L (96-109); Globulin 3.2 g/dL (1.6-3.3); Glucose 83 mg/dL (70-110); Potassium 4.3 mmol/L (3.5-5.5); Sodium 134 mmol/L (135-145); Total Bilirubin <0.15 mg/dL (0.30-1.20); Total Protein 6.5 g/dL (6.2-8.2)
[2023-02-10 10:14] LABS: HCT 27.5 % (37.2-46.3); HGB 8.9 g/dL (12.0-15.0); MCH 29.8 pg (27.0-32.0); MCHC 32.4 g/dL (32.0-37.0); Mean Platelet Volume 9.2 fL (9.5-12.2); NRBC Per 100 WBC 0 /100 WBCS (0.0-0.0); Platelet Count 242 X 10*3/uL (140-440); RBC 2.99 X 10*6/uL (4.10-5.20); RDW 14.6 % (11.5-14.5); WBC 15.26 X 10*3/uL (4.50-10.00)
[2023-02-10 12:07] LABS: Glucose,Whole Blood 102 mg/dL (70-110)
[2023-02-10 18:02] LABS: Glucose,Whole Blood 251 mg/dL (70-110)
--- NOTE | 2023-02-10 18:04 | P.PN ---
Subjective Progress Note Date: 02/10/23 67-year-old female with a past medical history significant for type 2 diabetes mellitus COPD morbid obesity did have a history of right below the knee amputation and left big toe amputation history of smoking presenting to the hospital with a 2-week history of abdominal pain , patient has been diagnosed with ischemic colitis in this patient with status post subtotal colectomy and ileostomy. Patient has been extubated as of 01/23/2023, patient did have a cardiac arrest 01/28/2023 evening requiring resuscitation and intubation Objective - Vital Signs Vital signs: Vital Signs Temp 98.4 F 02/10/23 07:30 Pulse 82 02/10/23 08:43 Resp 19 02/10/23 07:30 BP 114/62 02/10/23 07:30 Pulse Ox 97 02/10/23 07:30 FiO2 21 02/08/23 09:11 Intake & Output 02/09/23 02/10/23 02/10/23 18:59 06:59 18:59 Intake Total 268 118 Output Total 1700 900 Balance -1700 -632 118 Weight 79 kg Intake: IV 100 metroNIDAZOLE-NS PMX 500 100 mg In Saline 1 100ml.bag @ 100 mls/hr IVPB Q8HR [facility] Rx#:[id number] Intake, IV Titration 168 Amount Cefepime 2 gm In Sodium 100 Chloride 0.9% 100 ml @ 25 mls/hr IVPB Q8HR [facility] Rx# :[id number] Mvi, Adult No.4 with Vit 68 K 10 ml Trace (Conc-1Ml/ Dose) 1 ml Sodium Acetate 40 meq Calcium Gluconate 1 gm Magnesium Sulfate gm 1 gm Sodium Phosphate 9 mmol Potassium Chloride 20 meq In Amino Acid 5%- D15w 1,000 ml @ 35 mls/hr IV .BY DURATION [facility] Rx#: [id number] Oral 118 Output: Urine 1700 800 Stool 100 Other: Voiding Method Incontinent # Voids 1 ABP, PAP, CO, CI - Last Documented Arterial Blood Pressure 162/42 - Exam PHYSICAL EXAMINATION: GENERAL: The patient is alert and oriented x3, not in any acute distress. Well developed, well nourished. HEENT: Pupils are round and equally reacting to light. EOMI. No scleral icterus. No conjunctival pallor. Normocephalic, atraumatic. No pharyngeal erythema. No thyromegaly. CARDIOVASCULAR: S1 and S2 present. No murmurs, rubs, or gallops. PULMONARY: Chest is clear to auscultation, no wheezing or crackles. ABDOMEN: Soft, nontender, nondistended, normoactive bowel sounds. No palpable organomegaly. MUSCULOSKELETAL: No joint swelling or deformity. EXTREMITIES: No cyanosis, clubbing, or pedal edema. NEUROLOGICAL: Gross neurological examination did not reveal any focal deficits. SKIN: No rashes. - Labs CBC & Chem 7: 02/10/23 04:23 02/10/23 04:23 Labs: Abnormal Lab Results - Last 24 Hours (Table) 02/09/23 02/09/23 02/09/23 Range/Units 06:24 11:11 16:34 WBC 15.35 H (4.50-10.00) X 10*3/uL RBC 3.11 L (4.10-5.20) X 10*6/uL Hgb 9.2 L (12.0-15.0) g/dL Hct 28.6 L (37.2-46.3) % RDW 14.6 H (11.5-14.5) % MPV 9.2 L (9.5-12.2) fL POC Glucose (mg/dL) 186 H 350 H (70-110) mg/dL 02/09/23 02/09/23 Range/Units 20:21 23:43 WBC (4.50-10.00) X 10*3/uL RBC (4.10-5.20) X 10*6/uL Hgb (12.0-15.0) g/dL Hct (37.2-46.3) % RDW (11.5-14.5) % MPV (9.5-12.2) fL POC Glucose (mg/dL) 259 H 227 H (70-110) mg/dL Assessment and Plan Assessment: Acute hypoxic respiratory failure secondary to cardiac arrest requiring intubation and mechanical ventilation recovered and on room air Cardiac arrest requiring intubation and mechanical ventilation, patient had a PEA cardiac arrest, down time of 5 minutes. In-hospital cardiac arrest. This occurred on 01/28/2023 Status post exploratory laparotomy, lysis of adhesions, total colectomy, ileostomy, abdominal washout, placement of YASMINE drains, placement of wound VAC postoperative day #18 patient was extubated after this surgery on 01/23/2023 and has been off mechanical ventilation until 01/28 requiring reintubation because of PEA. Patient was extubated again on 01/30/2023. Acute kidney injury improving this is mostly a picture of acute tubular necrosis. 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 History of type 2 diabetes Stress incontinence Hypothyroidism Dyslipidemia History of depression Suspect acute aspiration pneumonia, sputum cultures have been positive for Enterobacter aerogenes, sensitive to cefepime Acute exacerbation of COPD Chronic tobacco dependence Plan: The patient was seen and evaluated Medications and labs reviewed Remains on TPN for nutritional support Currently stable and on room air
[2023-02-10] MEDS: MIRTAZAPINE 15 MG TAB PO SCH (21:27)
[2023-02-10 23:35] LABS: Glucose,Whole Blood 226 mg/dL (70-110)
[2023-02-11] MEDS: HYDROmorphone 1 MG/ML 1 ML SYRINGE IVP PRN ×3 (04:45→15:57)
[2023-02-11 06:06] LABS: Glucose,Whole Blood 147 mg/dL (70-110)
[2023-02-11] MEDS: INSULIN ASPART (NovoLOG) 100 UNIT/ML VIAL SQ SCH ×3 (06:09→18:19)
[2023-02-11] MEDS: INSULIN DETEMIR (LEVEMIR) 100 UNIT/ML SYR SQ SCH ×2 (06:29→21:16)
[2023-02-11] MEDS: ACETAMINOPHEN TAB 500 MG TAB PO SCH ×3 (06:29→18:18)
[2023-02-11] MEDS: METOCLOPRAMIDE 5 MG/ML 2 ML VIAL IVP SCH ×3 (06:29→18:19)
--- NOTE | 2023-02-11 08:13 | P.PN ---
Subjective Progress Note Date: 02/11/23 Principal diagnosis: This is a 67-year-old female seen in consultation because of acute kidney injury and electrolyte imbalance, postoperative emergent exploratory laparotomy, lysis of adhesion total abdominal colectomy and end ileostomy on 01/19/2023 She was on current total parenteral nutrition currently is off of it she is eating small amounts no nausea vomiting. She is comfortable Vital signs are stable. Her creatinine is down to normal, electrolytes unremarkable except for a sodium of 134. Urine output is 2840 Objective - Vital Signs Vital signs: Vital Signs Temp 97.8 F 02/11/23 02:00 Pulse 79 02/11/23 02:00 Resp 18 02/10/23 19:34 BP 130/65 02/11/23 02:00 Pulse Ox 100 02/11/23 02:00 FiO2 21 02/08/23 09:11 Intake & Output 02/10/23 02/11/23 02/11/23 18:59 06:59 18:59 Intake Total 236 Output Total 1400 1440 Balance -1164 -1440 Intake: Oral 236 Output: Urine 1100 730 Stool 300 710 Other: Voiding Method Incontinent Incontinent ABP, PAP, CO, CI - Last Documented Arterial Blood Pressure 162/42 Awake alert oriented comfortable HEENT exam no JVP noted neck is supple no facial asymmetry Lungs clear to auscultation Heart sounds unremarkable Abdomen soft ileostomy bag Extremity exam was right-sided remote BKA no edema on the left Neurologically awake alert oriented - Labs CBC & Chem 7: 02/10/23 04:23 02/10/23 04:23 Labs: Abnormal Lab Results - Last 24 Hours (Table) 02/10/23 02/10/23 02/10/23 Range/Units 04:23 04:23 18:01 WBC 15.26 H (4.50-10.00) X 10*3/uL RBC 2.99 L (4.10-5.20) X 10*6/uL Hgb 8.9 L (12.0-15.0) g/dL Hct 27.5 L (37.2-46.3) % RDW 14.6 H (11.5-14.5) % MPV 9.2 L (9.5-12.2) fL Sodium 134 L (135-145) mmol/L BUN/Creatinine Ratio 27.29 H (12.00-20.00) Ratio POC Glucose (mg/dL) 251 H (70-110) mg/dL Total Bilirubin <0.15 L (0.30-1.20) mg/dL AST 12 L (13-35) U/L Alkaline Phosphatase 166 H (41-126) U/L Albumin 3.3 L (3.8-4.9) g/dL Albumin/Globulin Ratio 1.04 L (1.60-3.17) g/dL 02/10/23 02/11/23 Range/Units 23:33 06:04 WBC (4.50-10.00) X 10*3/uL RBC (4.10-5.20) X 10*6/uL Hgb (12.0-15.0) g/dL Hct (37.2-46.3) % RDW (11.5-14.5) % MPV (9.5-12.2) fL Sodium (135-145) mmol/L BUN/Creatinine Ratio (12.00-20.00) Ratio POC Glucose (mg/dL) 226 H 147 H (70-110) mg/dL Total Bilirubin (0.30-1.20) mg/dL AST (13-35) U/L Alkaline Phosphatase (41-126) U/L Albumin (3.8-4.9) g/dL Albumin/Globulin Ratio (1.60-3.17) g/dL Assessment and Plan Assessment: Impression 1. Acute kidney injury secondary to prerenal from surgery exploratory laparotomy, lysis of adhesions, colectomy and end ileostomy on 01/19/2023 was on TPN and has been discontinued currently on oral diet. Renal function is normal and electrolytes are unremarkable except for sodium 134. 2. Was on TPN which has been discontinued currently on no IV fluids Recommendation 1. Maintain hydration orally possible and watch her labs closely. We will sign off thank you
[2023-02-11] MEDS: IPRATROPIUM-ALBUTEROL 3 ML NEB INHALATION SCH ×4 (08:14→20:32)
[2023-02-11] MEDS: metroNIDAZOLE-NS PMX 500 MG in SALINE 1 100ML.BAG IVPB SCH ×2 (09:06→15:56)
[2023-02-11] MEDS: CEFEPIME 2 GM in SODIUM CHLORIDE 0.9% 100 ML IVPB SCH ×2 (09:07→15:55)
[2023-02-11] MEDS: PANTOPRAZOLE 40 MG/10 ML VIAL IV SCH (09:09)
[2023-02-11] MEDS: FLUCONAZOLE 100 MG TAB PO SCH (09:09)
[2023-02-11] MEDS: hydrALAZINE HCL 50 MG TAB PO SCH ×3 (09:09→21:16)
[2023-02-11] MEDS: LEVOTHYROXINE 88 MCG TAB PO SCH (09:09)
[2023-02-11] MEDS: ENOXAPARIN 30 MG/0.3 ML SYRINGE SQ SCH (09:09)
[2023-02-11] MEDS: cloNIDine HCL 0.2 MG TAB PO SCH ×2 (09:10→21:16)
[2023-02-11] MEDS: predniSONE 20 MG TAB PO SCH (09:10)
[2023-02-11] MEDS: SODIUM BICARBONATE TAB 650 MG TAB PO SCH ×2 (09:10→21:16)
[2023-02-11] MEDS: amLODIPine 10 MG TAB PO SCH (09:10)
[2023-02-11 09:17] LABS: BUN/Creat Ratio 26.33 Ratio (12.00-20.00); Blood Urea Nitrogen 22.2 mg/dL (9.0-27.0); C Reactive Protein <0.30 mg/dL (0.00-0.80); Calcium 8.6 mg/dL (8.7-10.3); Carbon Dioxide 19.3 mmol/L (20.0-27.5); Chloride 103 mmol/L (96-109); Glucose 91 mg/dL (70-110); Non-African American GFR(CKD) 71.6 (60.0-200.0); Potassium 4.5 mmol/L (3.5-5.5); Sodium 132 mmol/L (135-145)
[2023-02-11] MEDS: GABAPENTIN 100 MG CAP PO SCH ×2 (09:21→21:16)
--- NOTE | 2023-02-11 10:38 | P.PN ---
Progress Note - Text Progress Note Date: 02/11/23 Patient [place] stable. She has no acute complaints. She is tolerating diet. On exam vital signs are stable. Abdomen soft. Wound is stable. Status post colectomy for ischemic bowel. Patient received supportive care.
[2023-02-11 11:17] LABS: Basophils # (A) 0.04 X 10*3/uL (0.00-0.10); Basophils % (A) 0.3 %; Eosinophils # (A) 0.03 X 10*3/uL (0.04-0.35); Eosinophils % (A) 0.2 %; HCT 25.8 % (37.2-46.3); HGB 8.1 g/dL (12.0-15.0); Lymphocytes # (A) 2.19 X 10*3/uL (0.90-5.00); MCH 28.7 pg (27.0-32.0); MCHC 31.4 g/dL (32.0-37.0); MCV 91.5 fL (80.0-97.0); Mean Platelet Volume 9.6 fL (9.5-12.2); Monocytes # (A) 0.85 X 10*3/uL (0.20-1.00); Monocytes % (A) 6.6 %; NRBC Per 100 WBC 0 /100 WBCS (0.0-0.0); Neutrophils % (A) 72.9 %; Platelet Count 247 X 10*3/uL (140-440); RBC 2.82 X 10*6/uL (4.10-5.20); RDW 14.6 % (11.5-14.5)
[2023-02-11 11:25] LABS: Glucose,Whole Blood 221 mg/dL (70-110)
[2023-02-11] MEDS: NICOTINE 21MG/24HR PATCH TRANSDERM SCH (15:00)
--- NOTE | 2023-02-11 17:39 | P.PN ---
Subjective Progress Note Date: 02/11/23 67-year-old female with a past medical history significant for type 2 diabetes mellitus COPD morbid obesity did have a history of right below the knee amputation and left big toe amputation history of smoking presenting to the hospital with a 2-week history of abdominal pain , patient has been diagnosed with ischemic colitis in this patient with status post subtotal colectomy and ileostomy. Patient has been extubated as of 01/23/2023, patient did have a cardiac arrest 01/28/2023 evening requiring resuscitation and intubation 02/11/2023 She is currently sitting up in bed. Awake and alert in no acute distress. She continues to maintain good O2 saturations in the 90s on room air. Continues to tolerate diet. X-ray of the abdomen reveals ongoing pronounced generalized ileus. Sputum culture was positive for Enterobacter aerogenes back on 01/28/2023. Gram stain from body fluid culture from the Diaz-Benítez drain revealed no growth. Blood work reveals a WBC of 12.9, hemoglobin of 8.1 and platelet count of 247, sodium 132, potassium 4.5, BUN/creatinine of 22/0.8 Continued on Flagyl and cefepime. Objective - Vital Signs Vital signs: Vital Signs Temp 97.8 F 02/11/23 07:17 Pulse 76 02/11/23 12:03 Resp 16 02/11/23 07:17 BP 130/69 02/11/23 07:17 Pulse Ox 99 02/11/23 08:17 FiO2 21 02/08/23 09:11 Intake & Output 02/10/23 02/11/23 02/11/23 18:59 06:59 18:59 Intake Total 236 Output Total 1400 1440 Balance -1164 -1440 Intake: Oral 236 Output: Urine 1100 730 Stool 300 710 Other: Voiding Method Incontinent Incontinent Incontinent External Catheter ABP, PAP, CO, CI - Last Documented Arterial Blood Pressure 162/42 - Exam PHYSICAL EXAMINATION: GENERAL: The patient is alert and oriented x3, not in any acute distress. Well developed, well nourished. HEENT: Pupils are round and equally reacting to light. EOMI. No scleral icterus. No conjunctival pallor. Normocephalic, atraumatic. No pharyngeal erythema. No thyromegaly. CARDIOVASCULAR: S1 and S2 present. No murmurs, rubs, or gallops. PULMONARY: Chest is clear to auscultation, no wheezing or crackles. ABDOMEN: Soft, nontender, nondistended, normoactive bowel sounds. No palpable organomegaly. MUSCULOSKELETAL: No joint swelling or deformity. EXTREMITIES: No cyanosis, clubbing, or pedal edema. NEUROLOGICAL: Gross neurological examination did not reveal any focal deficits. SKIN: No rashes. - Labs CBC & Chem 7: 02/11/23 04:19 02/11/23 04:19 Labs: Abnormal Lab Results - Last 24 Hours (Table) 02/10/23 02/10/23 02/11/23 Range/Units 18:01 23:33 04:19 WBC 12.90 H (4.50-10.00) X 10*3/uL RBC 2.82 L (4.10-5.20) X 10*6/uL Hgb 8.1 L (12.0-15.0) g/dL Hct 25.8 L (37.2-46.3) % MCHC 31.4 L (32.0-37.0) g/dL RDW 14.6 H (11.5-14.5) % Immature Gran # 0.39 H (0.00-0.04) X 10*3/uL Neutrophils # 9.40 H (1.80-7.70) X 10*3/uL Eosinophils # 0.03 L (0.04-0.35) X 10*3/uL Sodium (135-145) mmol/L Carbon Dioxide (20.0-27.5) mmol/L BUN/Creatinine Ratio (12.00-20.00) Ratio POC Glucose (mg/dL) 251 H 226 H (70-110) mg/dL Calcium (8.7-10.3) mg/dL 02/11/23 02/11/23 02/11/23 Range/Units 04:19 06:04 11:23 WBC (4.50-10.00) X 10*3/uL RBC (4.10-5.20) X 10*6/uL Hgb (12.0-15.0) g/dL Hct (37.2-46.3) % MCHC (32.0-37.0) g/dL RDW (11.5-14.5) % Immature Gran # (0.00-0.04) X 10*3/uL Neutrophils # (1.80-7.70) X 10*3/uL Eosinophils # (0.04-0.35) X 10*3/uL Sodium 132 L (135-145) mmol/L Carbon Dioxide 19.3 L (20.0-27.5) mmol/L BUN/Creatinine Ratio 26.33 H (12.00-20.00) Ratio POC Glucose (mg/dL) 147 H 221 H (70-110) mg/dL Calcium 8.6 L (8.7-10.3) mg/dL Assessment and Plan Assessment: Acute hypoxic respiratory failure secondary to cardiac arrest requiring intubation and mechanical ventilation recovered and on room air Cardiac arrest requiring intubation and mechanical ventilation, patient had a PEA cardiac arrest, down time of 5 minutes. In-hospital cardiac arrest. This occurred on 01/28/2023 Status post exploratory laparotomy, lysis of adhesions, total colectomy, ileosto my, abdominal washout, placement of YASMINE drains, placement of wound VAC postoperative day #18 patient was extubated after this surgery on 01/23/2023 and has been off mechanical ventilation until 01/28 requiring reintubation because of PEA. Patient was extubated again on 01/30/2023. Acute kidney injury improving this is mostly a picture of acute tubular necrosis. 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 History of type 2 diabetes Stress incontinence Hypothyroidism Dyslipidemia History of depression Suspect acute aspiration pneumonia, sputum cultures have been positive for Enterobacter aerogenes, sensitive to cefepime Acute exacerbation of COPD Chronic tobacco dependence Plan: The patient was seen and evaluated Medications and labs reviewed Remains on TPN for nutritional support Currently stable and on room air
[2023-02-11 18:09] LABS: Glucose,Whole Blood 354 mg/dL (70-110)
[2023-02-11] MEDS: MIRTAZAPINE 15 MG TAB PO SCH (21:16)
[2023-02-12 00:03] LABS: Glucose,Whole Blood 248 mg/dL (70-110)
[2023-02-12] MEDS: INSULIN ASPART (NovoLOG) 100 UNIT/ML VIAL SQ SCH ×4 (00:10→18:04)
[2023-02-12] MEDS: metroNIDAZOLE-NS PMX 500 MG in SALINE 1 100ML.BAG IVPB SCH ×3 (00:10→14:30)
[2023-02-12] MEDS: CEFEPIME 2 GM in SODIUM CHLORIDE 0.9% 100 ML IVPB SCH ×3 (00:11→14:30)
[2023-02-12] MEDS: METOCLOPRAMIDE 5 MG/ML 2 ML VIAL IVP SCH ×4 (00:11→18:04)
[2023-02-12] MEDS: ACETAMINOPHEN TAB 500 MG TAB PO SCH ×4 (00:11→18:04)
[2023-02-12] MEDS: HYDROmorphone 1 MG/ML 1 ML SYRINGE IVP PRN ×6 (01:12→20:40)
[2023-02-12 05:05] LABS: Glucose,Whole Blood 72 mg/dL (70-110)
[2023-02-12] MEDS: INSULIN DETEMIR (LEVEMIR) 100 UNIT/ML SYR SQ SCH ×2 (07:28→20:40)
[2023-02-12] MEDS: amLODIPine 10 MG TAB PO SCH (07:53)
[2023-02-12] MEDS: cloNIDine HCL 0.2 MG TAB PO SCH ×2 (07:53→20:39)
[2023-02-12] MEDS: ENOXAPARIN 30 MG/0.3 ML SYRINGE SQ SCH (07:53)
[2023-02-12] MEDS: LEVOTHYROXINE 88 MCG TAB PO SCH (07:54)
[2023-02-12] MEDS: hydrALAZINE HCL 50 MG TAB PO SCH ×3 (07:54→20:39)
[2023-02-12] MEDS: NICOTINE 21MG/24HR PATCH TRANSDERM SCH (07:54)
[2023-02-12] MEDS: FLUCONAZOLE 100 MG TAB PO SCH (07:54)
[2023-02-12] MEDS: GABAPENTIN 100 MG CAP PO SCH ×2 (07:54→20:39)
[2023-02-12] MEDS: PANTOPRAZOLE 40 MG/10 ML VIAL IV SCH (07:54)
[2023-02-12] MEDS: SODIUM BICARBONATE TAB 650 MG TAB PO SCH ×2 (07:55→20:40)
[2023-02-12] MEDS: predniSONE 20 MG TAB PO SCH (07:55)
[2023-02-12] MEDS: IPRATROPIUM-ALBUTEROL 3 ML NEB INHALATION SCH ×4 (07:56→21:08)
--- NOTE | 2023-02-12 09:39 | P.PN ---
Progress Note - Text Progress Note Date: 02/12/23 The patient's resting in bed comfortably. She denies any significant abdominal pain. On exam vital signs appear stable. Abdomen soft. Status post colectomy for bowel ischemia. Patient is supportive care.
[2023-02-12 11:40] LABS: Glucose,Whole Blood 128 mg/dL (70-110)
--- NOTE | 2023-02-12 13:54 | P.PN ---
Subjective Progress Note Date: 02/10/23 Principal diagnosis: Ischemic colitis patient is a 67-year-old female with a past medical history significant for type 2 diabetes mellitus COPD morbid obesity did have a history of right below the knee amputation and left big toe amputation history of smoking presenting to the hospital with a 2-week history of abdominal pain , patient has been diagnosed with ischemic colitis in this patient with status post subtotal colectomy and ileostomy. Patient has been extubated as of 01/23/2023, patient did have a cardiac arrest 01/28/2023 evening requiring resuscitation and intubation On today's evaluation that is 02/10/2023 patient remains to be to be afebrile, the patient is breathing comfortably on room air, the patient denies chest pain shortness of breath or cough , the patient denies nausea vomiting and no diarrhea has been reported by the nursing staff, Objective - Vital Signs Vital signs: Vital Signs Temp 98.4 F 02/10/23 07:30 Pulse 82 02/10/23 08:43 Resp 19 02/10/23 07:30 BP 114/62 02/10/23 07:30 Pulse Ox 97 02/10/23 07:30 FiO2 21 02/08/23 09:11 Intake & Output 02/09/23 02/10/23 02/10/23 18:59 06:59 18:59 Intake Total 268 Output Total 1700 900 Balance -1700 -632 Weight 79 kg Intake: IV 100 metroNIDAZOLE-NS PMX 500 100 mg In Saline 1 100ml.bag @ 100 mls/hr IVPB Q8HR [facility] Rx#:[id number] Intake, IV Titration 168 Amount Cefepime 2 gm In Sodium 100 Chloride 0.9% 100 ml @ 25 mls/hr IVPB Q8HR [facility] Rx# :[id number] Mvi, Adult No.4 with Vit 68 K 10 ml Trace (Conc-1Ml/ Dose) 1 ml Sodium Acetate 40 meq Calcium Gluconate 1 gm Magnesium Sulfate gm 1 gm Sodium Phosphate 9 mmol Potassium Chloride 20 meq In Amino Acid 5%- D15w 1,000 ml @ 35 mls/hr IV .BY DURATION [facility] Rx#: [id number] Output: Urine 1700 800 Stool 100 Other: Voiding Method Incontinent # Voids 1 ABP, PAP, CO, CI - Last Documented Arterial Blood Pressure 162/42 - Exam Elderly female lying in bed in no distress Lungs clear to auscultation Abdomen soft Exam completed with the help of IT SECURITY ARCHITECT - Labs CBC & Chem 7: 02/11/23 04:19 02/11/23 04:19 Labs: Abnormal Lab Results - Last 24 Hours (Table) 02/09/23 02/09/23 02/09/23 Range/Units 06:24 11:11 16:34 WBC 15.35 H (4.50-10.00) X 10*3/uL RBC 3.11 L (4.10-5.20) X 10*6/uL Hgb 9.2 L (12.0-15.0) g/dL Hct 28.6 L (37.2-46.3) % RDW 14.6 H (11.5-14.5) % MPV 9.2 L (9.5-12.2) fL POC Glucose (mg/dL) 186 H 350 H (70-110) mg/dL 02/09/23 02/09/23 Range/Units 20:21 23:43 WBC (4.50-10.00) X 10*3/uL RBC (4.10-5.20) X 10*6/uL Hgb (12.0-15.0) g/dL Hct (37.2-46.3) % RDW (11.5-14.5) % MPV (9.5-12.2) fL POC Glucose (mg/dL) 259 H 227 H (70-110) mg/dL Assessment and Plan (1) Ischemic colitis Current Visit: Yes Status: Acute Code(s): K55.9 - VASCULAR DISORDER OF INTESTINE, UNSPECIFIED SNOMED Code(s): 92945711 (2) Sepsis Current Visit: No Status: Acute Code(s): A41.9 - SEPSIS, UNSPECIFIED ORGANISM SNOMED Code(s): 85604865 Plan: This was a tele health visit 1patient presented to hospital abdominal pain has been diagnosed with ischemic colitis in this patient infusion of septic shock with low-grade fever tachycardia elevated white count elevated lactic acid source being ischemic large bowel status post subtotal colectomy and end ileostomy , patient subsequently did have worsening of her respiratory status and cardiac arrest requiring reintubation and the patient was subsequently extubated 2-Patient continued to show clinical improvement, the patient remains to be afebrile patient white count is still elevated, patient will continue patient ce fepime , Flagyl along with Diflucan and repeat a CBC with the a.m. labs Time with Patient: Less than 30
--- NOTE | 2023-02-12 13:55 | P.PN ---
Subjective Progress Note Date: 02/11/23 Principal diagnosis: Ischemic colitis patient is a 67-year-old female with a past medical history significant for type 2 diabetes mellitus COPD morbid obesity did have a history of right below the knee amputation and left big toe amputation history of smoking presenting to the hospital with a 2-week history of abdominal pain , patient has been diagnosed with ischemic colitis in this patient with status post subtotal colectomy and ileostomy. Patient has been extubated as of 01/23/2023, patient did have a cardiac arrest 01/28/2023 evening requiring resuscitation and intubation On today's evaluation that is 02/11/2023 patient continues to be to be afebrile, the patient is breathing comfortably on room air, the patient denies chest pain shortness of breath or cough , the patient denies nausea vomiting and overall feeling better Objective - Vital Signs Vital signs: Vital Signs Temp 97.8 F 02/11/23 07:17 Pulse 84 02/11/23 08:28 Resp 16 02/11/23 07:17 BP 130/69 02/11/23 07:17 Pulse Ox 99 02/11/23 08:17 FiO2 21 02/08/23 09:11 Intake & Output 02/10/23 02/11/23 02/11/23 18:59 06:59 18:59 Intake Total 236 Output Total 1400 1440 Balance -1164 -1440 Intake: Oral 236 Output: Urine 1100 730 Stool 300 710 Other: Voiding Method Incontinent Incontinent Incontinent External Catheter ABP, PAP, CO, CI - Last Documented Arterial Blood Pressure 162/42 - Exam Elderly female lying in bed in no distress Lungs clear to auscultation Abdomen soft Exam completed with the help of PHYSICIAN RELATIONS SPECIALIST - Labs CBC & Chem 7: 02/11/23 04:19 02/11/23 04:19 Labs: Abnormal Lab Results - Last 24 Hours (Table) 02/10/23 02/10/23 02/11/23 Range/Units 18:01 23:33 04:19 Sodium 132 L (135-145) mmol/L Carbon Dioxide 19.3 L (20.0-27.5) mmol/L BUN/Creatinine Ratio 26.33 H (12.00-20.00) Ratio POC Glucose (mg/dL) 251 H 226 H (70-110) mg/dL Calcium 8.6 L (8.7-10.3) mg/dL 02/11/23 Range/Units 06:04 Sodium (135-145) mmol/L Carbon Dioxide (20.0-27.5) mmol/L BUN/Creatinine Ratio (12.00-20.00) Ratio POC Glucose (mg/dL) 147 H (70-110) mg/dL Calcium (8.7-10.3) mg/dL Assessment and Plan (1) Ischemic colitis Current Visit: Yes Status: Acute Code(s): K55.9 - VASCULAR DISORDER OF IN TESTINE, UNSPECIFIED SNOMED Code(s): 98459879 (2) Sepsis Current Visit: No Status: Acute Code(s): A41.9 - SEPSIS, UNSPECIFIED ORGANISM SNOMED Code(s): 68044409 Plan: This was a tele health visit 1patient presented to hospital abdominal pain has been diagnosed with ischemic colitis in this patient infusion of septic shock with low-grade fever tachycardia elevated white count elevated lactic acid source being ischemic large bowel status post subtotal colectomy and end ileostomy , patient subsequently did have worsening of her respiratory status and cardiac arrest requiring reintubation and the patient was subsequently extubated 2-Patient remains to be afebrile patient white count is trended down to 12,000 today 3- patient will continue patient cefepime , Flagyl along with Diflucan and monitor clinical course closely Time with Patient: Less than 30
--- NOTE | 2023-02-12 13:58 | P.PN ---
Subjective Progress Note Date: 02/12/23 Principal diagnosis: Ischemic colitis patient is a 67-year-old female with a past medical history significant for type 2 diabetes mellitus COPD morbid obesity did have a history of right below the knee amputation and left big toe amputation history of smoking presenting to the hospital with a 2-week history of abdominal pain , patient has been diagnosed with ischemic colitis in this patient with status post subtotal colectomy and ileostomy. Patient has been extubated as of 01/23/2023, patient did have a cardiac arrest 01/28/2023 evening requiring resuscitation and intubation On today's evaluation that is 02/12/2023 patient denies any fever or any chills, the patient is breathing comfortably on room air, the patient denies chest pain shortness of breath or cough , the patient denies nausea vomiting , no abdominal pain or worsening output in the bag Objective - Vital Signs Vital signs: Vital Signs Temp 98.5 F 02/12/23 08:00 Pulse 86 02/12/23 08:00 Resp 17 02/12/23 08:00 BP 109/63 02/12/23 08:00 Pulse Ox 99 02/12/23 08:00 FiO2 21 02/08/23 09:11 Intake & Output 02/11/23 02/12/23 02/12/23 18:59 06:59 18:59 Intake Total 750 Output Total 1350 1050 Balance -600 -1050 Intake: Oral 750 Output: Urine 800 800 Stool 550 250 Other: Voiding Method Incontinent Incontinent External Catheter External Catheter # Voids 2 ABP, PAP, CO, CI - Last Documented Arterial Blood Pressure 162/42 - Exam GENERAL DESCRIPTION: An elderly female lying in bed in no distress RESPIRATORY SYSTEM: Unlabored breathing , decreased breath sounds at bases HEART: S1 S2 regular rate and rhythm , ABDOMEN: Soft , no tenderness EXTREMITIES: Right BKA stump is currently healed - Labs CBC & Chem 7: 02/11/23 04:19 02/11/23 04:19 Labs: Abnormal Lab Results - Last 24 Hours (Table) 02/11/23 02/12/23 02/12/23 Range/Units 17:59 00:01 11:37 POC Glucose (mg/dL) 354 H 248 H 128 H (70-110) mg/dL Assessment and Plan (1) Ischemic colitis Current Visit: Yes Status: Acute Code(s): K55.9 - VASCULAR DISORDER OF INTESTINE, UNSPECIFIED SNOMED Code(s): 73352851 (2) Sepsis Current Visit: No Status: Acute Code(s): A41.9 - SEPSIS, UNSPECIFIED ORGANISM SNOMED Code(s): 43907091 Plan: 1patient presented to hospital abdominal pain has been diagnosed with ischemic colitis in this patient infusion of septic shock with low-grade fever tachycardia elevated white count elevated lactic acid source being ischemic large bowel status post subtotal colectomy and end ileostomy , patient subsequently did have worsening of her respiratory status and cardiac arrest requiring reintubation and the patient was subsequently extubated 2-Patient remains to be afebrile patient white count is trended down to 12,000 yesterday, no CBC was done today 3- patient seemed to have shown clinical improvement will continue patient cefepime , Flagyl along with Diflucan and monitor clinical course closely Time with Patient: Less than 30
--- NOTE | 2023-02-12 15:57 | P.PN ---
Subjective Progress Note Date: 02/12/23 67-year-old female with a past medical history significant for type 2 diabetes mellitus COPD morbid obesity did have a history of right below the knee amputation and left big toe amputation history of smoking presenting to the hospital with a 2-week history of abdominal pain , patient has been diagnosed with ischemic colitis in this patient with status post subtotal colectomy and ileostomy. Patient has been extubated as of 01/23/2023, patient did have a cardiac arrest 01/28/2023 evening requiring resuscitation and intubation 02/11/2023 She is currently sitting up in bed. Awake and alert in no acute distress. She continues to maintain good O2 saturations in the 90s on room air. Continues to tolerate diet. X-ray of the abdomen reveals ongoing pronounced generalized ileus. Sputum culture was positive for Enterobacter aerogenes back on 01/28/2023. Gram stain from body fluid culture from the Diaz-Benítez drain revealed no growth. Blood work reveals a WBC of 12.9, hemoglobin of 8.1 and platelet count of 247, sodium 132, potassium 4.5, BUN/creatinine of 22/0.8 Continued on Flagyl and cefepime. 02/12/2023 -- patient denies any fever or any chills, the patient is breathing comfortably on room air, the patient denies chest pain shortness of breath or cough , the patient denies nausea vomiting , no abdominal pain or worsening output in the bag patient presented to hospital abdominal pain has been diagnosed with ischemic c olitis in this patient infusion of septic shock with low-grade fever tachycardia elevated white count elevated lactic acid source being ischemic large bowel status post subtotal colectomy and end ileostomy , patient subsequently did have worsening of her respiratory status and cardiac arrest requiring reintubation and the patient was subsequently extubated -Patient remains to be afebrile patient white count is trended down to 12,000 yesterday, no CBC was done today - patient seemed to have shown clinical improvement will continue patient cefepime , Flagyl along with Diflucan and monitor clinical course closely Objective - Vital Signs Vital signs: Vital Signs Temp 98.5 F 02/12/23 08:00 Pulse 86 02/12/23 08:00 Resp 17 02/12/23 08:00 BP 109/63 02/12/23 08:00 Pulse Ox 99 02/12/23 08:00 FiO2 21 02/08/23 09:11 Intake & Output 02/11/23 02/12/23 02/12/23 18:59 06:59 18:59 Intake Total 750 Output Total 1350 Balance -600 Intake: Oral 750 Output: Urine 800 Stool 550 Other: Voiding Method Incontinent Incontinent External Catheter External Catheter # Voids 2 ABP, PAP, CO, CI - Last Documented Arterial Blood Pressure 162/42 - Exam PHYSICAL EXAMINATION: GENERAL: The patient is alert and oriented x3, not in any acute distress. Well developed, well nourished. HEENT: Pupils are round and equally reacting to light. EOMI. No scleral icterus. No conjunctival pallor. Normocephalic, atraumatic. No pharyngeal erythema. No thyromegaly. CARDIOVASCULAR: S1 and S2 present. No murmurs, rubs, or gallops. PULMONARY: Chest is clear to auscultation, no wheezing or crackles. ABDOMEN: Soft, nontender, nondistended, normoactive bowel sounds. No palpable organomegaly. MUSCULOSKELETAL: No joint swelling or deformity. EXTREMITIES: No cyanosis, clubbing, or pedal edema. NEUROLOGICAL: Gross neurological examination did not reveal any focal deficits. SKIN: No rashes. - Labs CBC & Chem 7: 02/11/23 04:19 02/11/23 04:19 Labs: Abnormal Lab Results - Last 24 Hours (Table) 02/11/23 02/11/23 02/11/23 Range/Units 04:19 11:23 17:59 WBC 12.90 H (4.50-10.00) X 10*3/uL RBC 2.82 L (4.10-5.20) X 10*6/uL Hgb 8.1 L (12.0-15.0) g/dL Hct 25.8 L (37.2-46.3) % MCHC 31.4 L (32.0-37.0) g/dL RDW 14.6 H (11.5-14.5) % Immature Gran # 0.39 H (0.00-0.04) X 10*3/uL Neutrophils # 9.40 H (1.80-7.70) X 10*3/uL Eosinophils # 0.03 L (0.04-0.35) X 10*3/uL POC Glucose (mg/dL) 221 H 354 H (70-110) mg/dL 02/12/23 Range/Units 00:01 WBC (4.50-10.00) X 10*3/uL RBC (4.10-5.20) X 10*6/uL Hgb (12.0-15.0) g/dL Hct (37.2-46.3) % MCHC (32.0-37.0) g/dL RDW (11.5-14.5) % Immature Gran # (0.00-0.04) X 10*3/uL Neutrophils # (1.80-7.70) X 10*3/uL Eosinophils # (0.04-0.35) X 10*3/uL POC Glucose (mg/dL) 248 H (70-110) mg/dL Assessment and Plan Assessment: Acute hypoxic respiratory failure secondary to cardiac arrest requiring intubation and mechanical ventilation recovered and on room air Cardiac arrest requiring intubation and mechanical ventilation, patient had a PEA cardiac arrest, down time of 5 minutes. In-hospital cardiac arrest. This occurred on 01/28/2023 Status post exploratory laparotomy, lysis of adhesions, total colectomy, ileostomy, abdominal washout, placement of YASMINE drains, placement of wound VAC postoperative day #18 patient was extubated after this surgery on 01/23/2023 and has been off mechanical ventilation until 01/28 requiring reintubation because of PEA. Patient was extubated again on 01/30/2023. Acute kidney injury improving this is mostly a picture of acute tubular necrosis. 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 History of type 2 diabetes Stress incontinence Hypothyroidism Dyslipidemia History of depression Suspect acute aspiration pneumonia, sputum cultures have been positive for Enterobacter aerogenes, sensitive to cefepime Acute exacerbation of COPD Chronic tobacco dependence Plan: The patient was seen and evaluated Medications and labs reviewed Remains on TPN for nutritional support Currently stable and on room air
[2023-02-12 18:01] LABS: Glucose,Whole Blood 313 mg/dL (70-110)
[2023-02-12] MEDS: MIRTAZAPINE 15 MG TAB PO SCH (20:39)
[2023-02-13] LABS: Glucose,Whole Blood 288 mg/dL (70-110)
[2023-02-13] MEDS: ACETAMINOPHEN TAB 500 MG TAB PO SCH ×2 (00:23→06:06)
[2023-02-13] MEDS: CEFEPIME 2 GM in SODIUM CHLORIDE 0.9% 100 ML IVPB SCH ×3 (00:24→15:58)
[2023-02-13] MEDS: INSULIN ASPART (NovoLOG) 100 UNIT/ML VIAL SQ SCH ×4 (00:24→17:56)
[2023-02-13] MEDS: metroNIDAZOLE-NS PMX 500 MG in SALINE 1 100ML.BAG IVPB SCH ×3 (00:25→15:59)
[2023-02-13] MEDS: HYDROmorphone 1 MG/ML 1 ML SYRINGE IVP PRN ×3 (00:38→07:40)
[2023-02-13] MEDS: METOCLOPRAMIDE 5 MG/ML 2 ML VIAL IVP SCH ×4 (00:38→17:56)
[2023-02-13 06:03] LABS: Glucose,Whole Blood 102 mg/dL (70-110)
[2023-02-13] MEDS: INSULIN DETEMIR (LEVEMIR) 100 UNIT/ML SYR SQ SCH ×2 (07:37→20:00)
[2023-02-13] MEDS: cloNIDine HCL 0.2 MG TAB PO SCH ×2 (07:38→19:53)
[2023-02-13] MEDS: amLODIPine 10 MG TAB PO SCH (07:38)
[2023-02-13] MEDS: FLUCONAZOLE 100 MG TAB PO SCH (07:38)
[2023-02-13] MEDS: ENOXAPARIN 30 MG/0.3 ML SYRINGE SQ SCH (07:38)
[2023-02-13] MEDS: SODIUM BICARBONATE TAB 650 MG TAB PO SCH ×2 (07:39→19:54)
[2023-02-13] MEDS: predniSONE 20 MG TAB PO SCH (07:39)
[2023-02-13] MEDS: GABAPENTIN 100 MG CAP PO SCH ×2 (07:39→19:54)
[2023-02-13] MEDS: NICOTINE 21MG/24HR PATCH TRANSDERM SCH (07:39)
[2023-02-13] MEDS: hydrALAZINE HCL 50 MG TAB PO SCH ×3 (07:39→19:53)
[2023-02-13] MEDS: LEVOTHYROXINE 88 MCG TAB PO SCH (07:39)
[2023-02-13] MEDS: PANTOPRAZOLE 40 MG/10 ML VIAL IV SCH (07:39)
[2023-02-13] MEDS: IPRATROPIUM-ALBUTEROL 3 ML NEB INHALATION SCH ×4 (08:09→19:45)
[2023-02-13] MEDS ORDERED: HYDROmorphone 0.5 MG/0.5 ML SYRINGE IVP PRN (09:04)
--- NOTE | 2023-02-13 09:09 | P.PN ---
Subjective Progress Note Date: 02/13/23 Principal diagnosis: Abdominal pain This is a 67-year-old female who presented to the emergency department with complaints of abdominal pain and had not had a bowel movement for multiple days. Patient was found to have an ischemic bowel. She did have a total abdominal colectomy with ileostomy by Dr. Larsen. She did require mechanical ventilation. She does have a significant history of COPD and diabetes, and is a tobacco user. 01/29/23 Yesterday patient had a cardiac arrest while undergoing a computed tomography scan. 3 L of brown fluid removed from NG tube. Ileus was found on the computed tomography scan. Patient is reintubated and remains in the ICU. 01/30/23 Patient remains intubated. She still having significant dark output from NG tube. Plan today is for a PICC line for TPN. 02/01/23 She was extubated on Sunday night. She is currently on 2 L nasal cannula. She is seen laying in bed this morning awake and alert, but is not able to identify the date today. Still having some dark output from NG tube. 02/05/23 Patient remains in ICU. She is seen this morning sitting up in bed. NG tube was removed yesterday. Ostomy is having good output. Patient more alert today than last week. 02/06/23 Patient continues to improve, will be transferred out of ICU today. Vital signs are stable and she is on room air. Ostomy still having good output. Patient is awake and alert today. She remains on TPN. Blood sugars continue to be in the 300s. 02/08/23 Patient on the medical floor. She remains on TPN, but oral diet has been initiated. Patient seen this morning with a full liquid breakfast and reports she is tolerating it well. Vitals continue to be stable. Ostomy has good output. Patient continues to be awake and more alert. 02/13/23 Patient is seen and evaluated sitting up in bed this morning. She was eating breakfast. She reports she is tolerating diet. Mood also continues to be improved and she is awake and alert. Ostomy continues to have good output. Objective - Vital Signs Vital signs: Vital Signs Temp 98.3 F 02/13/23 07:43 Pulse 96 02/13/23 08:18 Resp 17 02/13/23 07:43 BP 126/64 02/13/23 07:43 Pulse Ox 98 02/13/23 08:11 FiO2 21 02/13/23 08:11 Intake & Output 02/12/23 02/13/23 02/13/23 18:59 06:59 18:59 Output Total 2250 2550 Balance -2250 -2550 Output: Urine 1700 2550 Stool 550 Other: Voiding Method External Catheter External Catheter # Voids 2 1 ABP, PAP, CO, CI - Last Documented Arterial Blood Pressure 162/42 - Constitutional General appearance: Present: cooperative, no acute distress - EENT Eyes: Present: EOMI, PERRLA - Neck Neck: Present: normal ROM. Absent: lymphadenopathy, rigidity - Respiratory Respiratory: bilateral: CTA - Cardiovascular Rhythm: regular Heart sounds: normal: S1, S2 - Gastrointestinal General gastrointestinal: Present: soft - Integumentary Integumentary: Present: normal, normal turgor - Musculoskeletal Musculoskeletal: Present: generalized weakness - Psychiatric Psychiatric: Present: A&O x's 3, appropriate affect, intact judgment & insight - Labs CBC & Chem 7: 02/11/23 04:19 02/11/23 04:19 Labs: Abnormal Lab Results - Last 24 Hours (Table) 02/12/23 02/12/23 02/13/23 Range/Units 11:37 18:00 00:00 POC Glucose (mg/dL) 128 H 313 H 288 H (70-110) mg/dL Assessment and Plan (1) Ischemic bowel disease Current Visit: Yes Status: Acute Code(s): K55.9 - VASCULAR DISORDER OF INTESTINE, UNSPECIFIED SNOMED Code(s): 47308487 (2) COPD (chronic obstructive pulmonary disease) Current Visit: No Status: Acute Code(s): J44.9 - CHRONIC OBSTRUCTIVE PULM ONARY DISEASE, UNSPECIFIED SNOMED Code(s): 19808240 (3) Type 2 diabetes mellitus Current Visit: No Status: Acute Code(s): E11.9 - TYPE 2 DIABETES MELLITUS WITHOUT COMPLICATIONS SNOMED Code(s): 03594177 (4) Ischemic colitis Current Visit: Yes Status: Acute Code(s): K55.9 - VASCULAR DISORDER OF INTESTINE, UNSPECIFIED SNOMED Code(s): 50345139 (5) History of below-knee amputation of right lower extremity Current Visit: No Status: Acute Code(s): Z89.511 - ACQUIRED ABSENCE OF RIGHT LEG BELOW KNEE SNOMED Code(s): 555244173794795 (6) Opioid dependence Current Visit: No Status: Acute Code(s): F11.20 - OPIOID DEPENDENCE, UNCOMPLICATED SNOMED Code(s): 43872144 Plan: Appreciate multiple consultants. Check labs in the a.m. Continue to encourage diet. Patient seen and evaluated by nurse practitioner, physician in agreement with plan
[2023-02-13 10:58] LABS: Basophils # (A) 0.07 X 10*3/uL (0.00-0.10); Basophils % (A) 0.5 %; Eosinophils # (A) 0.19 X 10*3/uL (0.04-0.35); Eosinophils % (A) 1.3 %; HCT 26.4 % (37.2-46.3); HGB 8.6 g/dL (12.0-15.0); Immature Grans, Automated 3.3 %; Lymphocytes # (A) 3.37 X 10*3/uL (0.90-5.00); Lymphocytes % (A) 23.2 %; MCH 29.6 pg (27.0-32.0); MCHC 32.6 g/dL (32.0-37.0); MCV 90.7 fL (80.0-97.0); Mean Platelet Volume 8.7 fL (9.5-12.2); Monocytes # (A) 1.21 X 10*3/uL (0.20-1.00); Monocytes % (A) 8.3 %; NRBC Per 100 WBC 0 /100 WBCS (0.0-0.0); Neutrophils # (A) 9.18 X 10*3/uL (1.80-7.70); Neutrophils % (A) 63.4 %; Platelet Count 263 X 10*3/uL (140-440); RBC 2.91 X 10*6/uL (4.10-5.20); RDW 15.3 % (11.5-14.5)
[2023-02-13 11:10] LABS: C Reactive Protein <0.30 mg/dL (0.00-0.80)
[2023-02-13 11:18] LABS: ALT 20 U/L (8-44); AST 11 U/L (13-35); African American GFR (CKD) 103.9 (60.0-200.0); Albumin 3.6 g/dL (3.8-4.9); Alkaline Phosphatase 164 U/L (41-126); BUN/Creat Ratio 21.57 Ratio (12.00-20.00); Blood Urea Nitrogen 15.1 mg/dL (9.0-27.0); Carbon Dioxide 17.8 mmol/L (20.0-27.5); Chloride 103 mmol/L (96-109); Glucose 46 mg/dL (70-110); Non-African American GFR(CKD) 89.7 (60.0-200.0); Potassium 3.7 mmol/L (3.5-5.5); Sodium 133 mmol/L (135-145); Total Bilirubin <0.15 mg/dL (0.30-1.20); Total Protein 6.6 g/dL (6.2-8.2)
[2023-02-13 11:41] LABS: Glucose,Whole Blood 129 mg/dL (70-110)
--- NOTE | 2023-02-13 12:17 | P.PN ---
Subjective Progress Note Date: 02/13/23 Principal diagnosis: Ischemic colitis patient is a 67-year-old female with a past medical history significant for type 2 diabetes mellitus COPD morbid obesity did have a history of right below the knee amputation and left big toe amputation history of smoking presenting to the hospital with a 2-week history of abdominal pain , patient has been diagnosed with ischemic colitis in this patient with status post subtotal colectomy and ileostomy. Patient has been extubated as of 01/23/2023, patient did have a cardiac arrest 01/28/2023 evening requiring resuscitation and intubation On today's evaluation that is 02/13/2023 patient remains to be afebrile , the patient is breathing comfortably on room air, the patient denies chest pain shortness of breath or cough , the patient denies nausea vomiting , no abdominal pain , feeling better wants to go home Objective - Vital Signs Vital signs: Vital Signs Temp 98.3 F 02/13/23 07:43 Pulse 96 02/13/23 08:18 Resp 17 02/13/23 07:43 BP 126/64 02/13/23 07:43 Pulse Ox 98 02/13/23 08:11 FiO2 21 02/13/23 08:11 Intake & Output 02/12/23 02/13/23 02/13/23 18:59 06:59 18:59 Output Total 2250 2550 Balance -2250 -2550 Output: Urine 1700 2550 Stool 550 Other: Voiding Method External Catheter External Catheter # Voids 2 1 ABP, PAP, CO, CI - Last Documented Arterial Blood Pressure 162/42 - Exam GENERAL DESCRIPTION: An elderly female lying in bed in no distress RESPIRATORY SYSTEM: Unlabored breathing , decreased breath sounds at bases HEART: S1 S2 regular rate and rhythm , ABDOMEN: Soft , no tenderness EXTREMITIES: Right BKA stump is currently healed - Labs CBC & Chem 7: 02/13/23 07:25 02/13/23 07:25 Labs: Abnormal Lab Results - Last 24 Hours (Table) 02/12/23 02/12/23 02/13/23 Range/Units 11:37 18:00 00:00 POC Glucose (mg/dL) 128 H 313 H 288 H (70-110) mg/dL Assessment and Plan (1) Ischemic colitis Current Visit: Yes Status: Acute Code(s): K55.9 - VASCULAR DISORDER OF INTESTINE, UNSPECIFIED SNOMED Code(s): 00360003 (2) Sepsis Current Visit: No Status: Acute Code(s): A41.9 - SEPSIS, UNSPECIFIED ORGANISM SNOMED Code(s): 18619345 Plan: 1patient presented to hospital abdominal pain has been diagnosed with ischemic colitis in this patient infusion of septic shock with low-grade fever tachycardia elevated white count elevated lactic acid source being ischemic large bowel status post subtotal colectomy and end ileostomy , patient subsequently did have worsening of her respiratory status and cardiac arrest requiring reintubation and the patient was subsequently extubated 2-Patient with Enterobacter pneumonia. The patient has received adequate cefepime and Flagyl and can be discontinued on discharge PICC line should be discontinued as well 3-elevated white count with a concern for possible oropharyngeal candidiasis with the white count improving with the Diflucan to continue for a week on discharge Time with Patient: Less than 30
[2023-02-13] MEDS: HYDROcodone/APAP 10-325MG 1 EACH TAB PO PRN ×2 (13:14→18:45)
--- NOTE | 2023-02-13 13:59 | P.DS ---
Providers Date of admission: 01/19/23 14:25 Expected date of discharge: 02/13/23 Attending physician: Kori Larsen Consults: 01/19/23 14:22 Consult Physician Stat Consulting Provider: Kiko Dewitt Consult Reason/Comments: Ischemic bowel Do you want consulting provider notified?: Already Contacted 01/19/23 22:57 Consult Physician Routine Consulting Provider: Juan Vaughn Consult Reason/Comments: Sepsis, bowel Do you want consulting provider notified?: Yes, Notify in am 01/21/23 08:58 Consult Physician Urgent Consulting Provider: Morenita Espinoza Consult Reason/Comments: jesús Do you want consulting provider notified?: Yes 01/22/23 09:30 Consult Physician Urgent Consulting Provider: Yomi Kennedy Consult Reason/Comments: medical management Do you want consulting provider notified?: Yes 01/31/23 20:52 Consult Physician Routine Consulting Provider: Pipe Salazar Consult Reason/Comments: suicidal thoughts Do you want consulting provider notified?: Yes, Notify in am Primary care physician: Yomi Kennedy Hospital Course: Discharge diagnosis 1. Acute abdomen with ischemic bowel 2. Hypertensive heart disease with congestive heart failure 3. Morbid obesity due to excess calories, BMI over 34.8 4. Acute renal failure due to dehydration 5. History of lower extremity amputee 6. Chronic obstructive pulmonary disease 7. Diabetes type 2, insulin-dependent with diabetic nephropathy 8. Gastroesophageal reflux disease 9. Hypotension due to hypovolemia 10. Lactic acidosis 11. Septic shock due to bowel 12. Status post total abdominal colectomy 13. Cardiac arrest 14. Severe ileus 15. Suspected aspiration pneumonia 16. Hyperkalemia resolved 17. Oropharyngeal candidiasis likely causing the elevated WBC Hospital course The patient is a 67-year-old female who was admitted to the hospital in acute distress due to acute abdomen. CT findings consistent with ischemic bowel with pneumatosis. Patient is status post extensive lysis of adhesions due to prior open cholecystectomy, exploratory laparotomy with total abdominal colectomy and end ileostomy, decompressive colotomy 3, cecum, transverse colon, sigmoid colon and abdominal peritoneal lavage 3 L normal saline. Patient was in the ICU and remained intubated and on mechanical ventilation postoperatively. Patient was able to be extubated. And during a repeat CAT scan on 01/28/2023 patient started to vomit and did go into cardiac arrest and required CPR and required to be reintubated. Patient is monitored closely. Antibiotics adjusted per ID service. She was eventually able to be extubated. She did develop a severe ileus during this admission and remained nothing by mouth with NG tube in place for decompression. She was on TPN for nutrition support. Patient ileus improved. Her ostomy output increased and she was having air in the bag. She tolerated advancement of diet. Her pain is controlled. She denies any nausea or vomiting. She's afebrile. She has been cleared by consultants. She'll be discharged to ECF for rehab. White count at discharge is 14.5. Patient evaluated by infectious disease with evidence of oral candidiasis likely contributing to the white count. They've placed her on Diflucan. Patient is stable for discharge. Awaiting insurance authorization for ECF placement. Physician Product Inspection Supervisor note has been reviewed by physician. Signing provider agrees with the documented findings, assessment, and plan of care. Patient Condition at Discharge: Stable Plan - Discharge Summary Discharge Rx Participant: Yes New Discharge Prescriptions: New Fluconazole [Diflucan] 200 mg PO DAILY 7 Days #7 tablet No Action Gabapentin 800 mg PO TID Insulin Glargine,Hum.rec.anlog [Lantus Solostar Pen] 55 unit SQ BID metFORMIN HCL [Glucophage] 1,000 mg PO BID Topiramate 50 mg PO BID Oxybutynin Chloride [oxyBUTYnin chloride ER] 10 mg PO DAILY Cyclobenzaprine [Flexeril] 10 mg PO BID PRN PRN Reason: Muscle Spasm FLUoxetine HCL [PROzac] 40 mg PO DAILY@1600 Fluticasone Nasal [place] [Flonase Nasal [place]] 1 - 2 spr EA NOSTRIL HS Albuterol Inhaler [Ventolin Hfa Inhaler] 2 puff INHALATION RT-QID PRN PRN Reason: Shortness Of Breath Cholecalciferol (Vitamin D3) [Vitamin D3 (125 MCG = 5,000 IU)] 125 mcg PO DAILY@1600 Fluticasone Propion/Salmeterol [Advair 500-50 Diskus] 1 puff INHALATION RT- BID Multivitamins, Thera [Multivitamin (formulary)] 1 tab PO DAILY@1600 Lactulose [Cephulac] 30 gm PO BID PRN 7 Days #14 ml PRN Reason: Constipation Ibuprofen [Motrin] 600 mg PO TID PRN PRN Reason: Pain Loratadine 10 mg PO DAILY hydrOXYzine HCL [Atarax] 25 mg PO TID PRN PRN Reason: Itching Mupirocin 2% Oint [Bactroban 2% Oint] 1 applic TOPICAL BID HYDROcodone/APAP 10-325MG [[place] 10-325] 1 tab PO Q6H PRN PRN Reason: Pain Levothyroxine Sodium 88 mcg PO DAILY QUEtiapine [SEROquel] 400 mg PO HS Atorvastatin [Lipitor] 40 mg PO DAILY@1600 Triamcinolone 0.1% Cream [Kenalog 0.1% Cream] 1 applic TOPICAL BID PRN PRN Reason: Rash Vitamin E (Dl,Tocopheryl Acet) [Vitamin E (400 Iu = 180 mg)] 400 unit PO DAILY@1600 Aspirin 325 mg PO DAILY #30 tab amLODIPine [Norvasc] 5 mg PO DAILY 30 Days #30 tab Levocetirizine Dihydrochloride [Xyzal] 5 mg PO BID Famotidine [Pepcid] 20 mg PO BID Discharge Medication List Gabapentin 800 mg PO TID 08/17/20 [History] Insulin Glargine,Hum.rec.anlog [Lantus Solostar Pen] 55 unit SQ BID 08/17/20 [History] Oxybutynin Chloride [oxyBUTYnin chloride ER] 10 mg PO DAILY 08/17/20 [History] Topiramate 50 mg PO BID 08/17/20 [History] metFORMIN HCL [Glucophage] 1,000 mg PO BID 08/17/20 [History] Cyclobenzaprine [Flexeril] 10 mg PO BID PRN 09/17/21 [History] FLUoxetine HCL [PROzac] 40 mg PO DAILY@1600 09/17/21 [History] Fluticasone Nasal [place] [Flonase Nasal [place]] 1 - 2 spr EA NOSTRIL HS 09/17/21 [History] Albuterol Inhaler [Ventolin Hfa Inhaler] 2 puff INHALATION RT-QID PRN 12/14/21 [History] HYDROcodone/APAP 10-325MG [[place] 10-325] 1 tab PO Q6H PRN 12/14/21 [History] Levothyroxine Sodium 88 mcg PO DAILY 12/14/21 [History] QUEtiapine [SEROquel] 400 mg PO HS 12/14/21 [History] Atorvastatin [Lipitor] 40 mg PO DAILY@159906/16/22 [History] Cholecalciferol (Vitamin D3) [Vitamin D3 (125 MCG = 5,000 IU)] 125 mcg PO DAILY@159906/16/22 [History] Fluticasone Propion/Salmeterol [Advair 500-50 Diskus] 1 puff INHALATION RT-BID 06/16/22 [History] Multivitamins, Thera [Multivitamin (formulary)] 1 tab PO DAILY@159906/16/22 [History] Triamcinolone 0.1% Cream [Kenalog 0.1% Cream] 1 applic TOPICAL BID PRN 06/16/22 [History] Vitamin E (Dl,Tocopheryl Acet) [Vitamin E (400 Iu = 180 mg)] 400 unit PO DAILY@159906/16/22 [History] Aspirin 325 mg PO DAILY #30 tab 06/18/22 [Rx] Lactulose [Cephulac] 30 gm PO BID PRN 7 Days #14 ml 09/04/22 [Rx] Ibuprofen [Motrin] 600 mg PO TID PRN 11/18/22 [History] Loratadine 10 mg PO DAILY 11/18/22 [History] amLODIPine [Norvasc] 5 mg PO DAILY 30 Days #30 tab 11/23/22 [Rx] Famotidine [Pepcid] 20 mg PO BID 01/19/23 [History] Levocetirizine Dihydrochloride [Xyzal] 5 mg PO BID 01/19/23 [History] Mupirocin 2% Oint [Bactroban 2% Oint] 1 applic TOPICAL BID 01/19/23 [History] hydrOXYzine HCL [Atarax] 25 mg PO TID PRN 01/19/23 [History] Fluconazole [Diflucan] 200 mg PO DAILY 7 Days #7 tablet 02/13/23 [Rx] Follow up Appointment(s)/Referral(s): Yomi Kennedy MD [Primary Care Provider] - 1-2 days Kori Larsen MD [STAFF PHYSICIAN] - 02/20/23 Clarence Flowers [NON-STAFF] - 1 Week Activity/Diet/Wound Care/Special Instructions: No lifting over 4 pounds in 4 weeks You May shower. No bath tub soaks for two weeks Continue a ground diet Discharge Disposition: TRANSFER TO SNF/ECF
[2023-02-13 14:52] LABS: Glucose,Whole Blood 321 mg/dL (70-110)
[2023-02-13] MEDS ORDERED: INSULIN ASPART (NovoLOG) 100 UNIT/ML VIAL SQ ONE (15:00)
[2023-02-13 17:50] LABS: Glucose,Whole Blood 321 mg/dL (70-110)
[2023-02-13] MEDS: ONDANSETRON 4 MG/2 ML VIAL IVP PRN (19:53)
[2023-02-13] MEDS: MIRTAZAPINE 15 MG TAB PO SCH ×2 (19:53→19:54)
[2023-02-14] MEDS: INSULIN ASPART (NovoLOG) 100 UNIT/ML VIAL SQ SCH ×3 (00:38→12:39)
[2023-02-14 00:44] LABS: Glucose,Whole Blood 94 mg/dL (70-110)
[2023-02-14] MEDS: CEFEPIME 2 GM in SODIUM CHLORIDE 0.9% 100 ML IVPB SCH ×2 (00:46→09:33)
[2023-02-14] MEDS: METOCLOPRAMIDE 5 MG/ML 2 ML VIAL IVP SCH ×3 (00:47→12:38)
[2023-02-14] MEDS: HYDROcodone/APAP 10-325MG 1 EACH TAB PO PRN ×3 (00:47→12:39)
[2023-02-14] MEDS: metroNIDAZOLE-NS PMX 500 MG in SALINE 1 100ML.BAG IVPB SCH ×2 (00:47→09:33)
[2023-02-14 06:09] LABS: Glucose,Whole Blood 94 mg/dL (70-110)
[2023-02-14] MEDS: IPRATROPIUM-ALBUTEROL 3 ML NEB INHALATION SCH ×3 (08:59→15:21)
[2023-02-14] MEDS: ENOXAPARIN 30 MG/0.3 ML SYRINGE SQ SCH (09:33)
[2023-02-14] MEDS: GABAPENTIN 100 MG CAP PO SCH (09:34)
[2023-02-14] MEDS: SODIUM BICARBONATE TAB 650 MG TAB PO SCH (09:34)
[2023-02-14] MEDS: cloNIDine HCL 0.2 MG TAB PO SCH (09:34)
[2023-02-14] MEDS: PANTOPRAZOLE 40 MG/10 ML VIAL IV SCH (09:34)
[2023-02-14] MEDS: hydrALAZINE HCL 50 MG TAB PO SCH (09:34)
[2023-02-14] MEDS: predniSONE 20 MG TAB PO SCH (09:34)
[2023-02-14] MEDS: INSULIN DETEMIR (LEVEMIR) 100 UNIT/ML SYR SQ SCH (09:34)
[2023-02-14] MEDS: amLODIPine 10 MG TAB PO SCH (09:34)
[2023-02-14] MEDS: FLUCONAZOLE 100 MG TAB PO SCH (09:34)
[2023-02-14] MEDS: NICOTINE 21MG/24HR PATCH TRANSDERM SCH (09:34)
[2023-02-14] MEDS: LEVOTHYROXINE 88 MCG TAB PO SCH (09:35)
--- NOTE | 2023-02-14 11:58 | P.PN ---
Subjective Principal diagnosis: Ischemic colitis The patient is a 67-year-old female essentially admitted for ischemic colitis. The patient had code after having recovery 2 weeks ago week. The patient is now extubated and seems more hemodynamically stable. Still copious amounts of gastric fluid is being extracted. Much better orientation today. She seems to be tolerating her diet but is significantly fatigued. We'll anticipate discharge to ECF today. Pain is very well controlled. Objective - Vital Signs Vital signs: Vital Signs Temp 98.4 F 02/14/23 07:10 Pulse 90 02/14/23 09:07 Resp 16 02/14/23 09:07 BP 129/69 02/14/23 07:10 Pulse Ox 99 02/14/23 08:59 FiO2 21 02/13/23 08:11 Intake & Output 02/13/23 02/14/23 02/14/23 18:59 06:59 18:59 Output Total 1800 1200 200 Balance -1800 -1200 -200 Weight 79 kg Output: Urine 1700 1200 200 Stool 100 Other: Voiding Method External Catheter External Catheter External Catheter # Bowel Movements 1 ABP, PAP, CO, CI - Last Documented Arterial Blood Pressure 162/42 - Constitutional General appearance: Present: no acute distress - EENT Eyes: Absent: abnormal pupil - Neck Neck: Absent: lymphadenopathy - Respiratory Respiratory: bilateral: diminished - Cardiovascular Rhythm: regular Heart sounds: normal: S1, S2 Abnormal Heart Sounds: Absent: S3 Gallop - Gastrointestinal General gastrointestinal: Present: soft - Integumentary Integumentary: Absent: cellulitis - Labs CBC & Chem 7: 02/13/23 07:25 02/13/23 07:25 Labs: Abnormal Lab Results - Last 24 Hours (Table) 02/13/23 02/13/23 Range/Units 14:50 17:48 POC Glucose (mg/dL) 321 H 321 H (70-110) mg/dL Assessment and Plan (1) Ischemic bowel disease Current Visit: Yes Status: Acute Code(s): K55.9 - VASCULAR DISORDER OF INTESTINE, UNSPECIFIED SNOMED Code(s): 23409218 (2) Ischemic colitis Current Visit: Yes Status: Acute Code(s): K55.9 - VASCULAR DISORDER OF [place], UNSPECIFIED SNOMED Code(s): 20118587 (3) COPD (chronic obstructive pulmonary disease) Current Visit: No Status: Acute Code(s): J44.9 - CHRONIC OBSTRUCTIVE PULMONARY DISEASE, UNSPECIFIED SNOMED Code(s): 90440566 (4) History of below-knee amputation of right lower extremity Current Visit: No Status: Acute Code(s): Z89.511 - ACQUIRED ABSENCE OF RIGHT LEG BELOW KNEE SNOMED Code(s): 234016621716121 (5) Opioid dependence Current Visit: No Status: Acute Code(s): F11.20 - OPIOID DEPENDENCE, UNCOMPLICATED SNOMED Code(s): 51905811 (6) Type 2 diabetes mellitus Current Visit: No Status: Acute Code(s): E11.9 - TYPE 2 DIABETES MELLITUS WITHOUT COMPLICATIONS SNOMED Code(s): 87730471 Plan: Transferred to [facility] today. We will follow-up once discharged. Prognosis is improved. See orders otherwise
[2023-02-14 12:03] LABS: Glucose,Whole Blood 153 mg/dL (70-110)
[2023-02-14 13:59] LABS: HCT 26.2 % (37.2-46.3); HGB 8.2 g/dL (12.0-15.0); MCH 28.6 pg (27.0-32.0); MCHC 31.3 g/dL (32.0-37.0); MCV 91.3 fL (80.0-97.0); Mean Platelet Volume 8.8 fL (9.5-12.2); NRBC Per 100 WBC 0 /100 WBCS (0.0-0.0); Platelet Count 222 X 10*3/uL (140-440); RBC 2.87 X 10*6/uL (4.10-5.20); RDW 15.7 % (11.5-14.5); WBC 12.31 X 10*3/uL (4.50-10.00)
--- NOTE | 2023-02-14 14:07 | P.PN ---
Subjective Progress Note Date: 02/14/23 Principal diagnosis: Ischemic colitis patient is a 67-year-old female with a past medical history significant for type 2 diabetes mellitus COPD morbid obesity did have a history of right below the knee amputation and left big toe amputation history of smoking presenting to the hospital with a 2-week history of abdominal pain , patient has been diagnosed with ischemic colitis in this patient with status post subtotal colectomy and ileostomy. Patient has been extubated as of 01/23/2023, patient did have a cardiac arrest 01/28/2023 evening requiring resuscitation and intubation On today's evaluation that is 02/14/2023 patient denies having any fever or chills , the patient is breathing comfortably on room air, the patient denies chest pain shortness of breath or cough , the patient denies nausea vomiting , no abdominal pain , , no new symptoms overall feeling better Objective - Vital Signs Vital signs: Vital Signs Temp 98.4 F 02/14/23 07:10 Pulse 90 02/14/23 09:07 Resp 16 02/14/23 09:07 BP 129/69 02/14/23 07:10 Pulse Ox 99 02/14/23 08:59 FiO2 21 02/13/23 08:11 Intake & Output 02/13/23 02/14/23 02/14/23 18:59 06:59 18:59 Output Total 1800 1200 200 Balance -1800 -1200 -200 Weight 79 kg Output: Urine 1700 1200 200 Stool 100 Other: Voiding Method External Catheter External Catheter External Catheter # Bowel Movements 1 ABP, PAP, CO, CI - Last Documented Arterial Blood Pressure 162/42 - Exam GENERAL DESCRIPTION: An elderly female lying in bed in no distress RESPIRATORY SYSTEM: Unlabored breathing , decreased breath sounds at bases HEART: S1 S2 regular rate and rhythm , ABDOMEN: Soft , no tenderness EXTREMITIES: Right BKA stump is currently healed - Labs CBC & Chem 7: 02/14/23 06:07 02/13/23 07:25 Labs: Abnormal Lab Results - Last 24 Hours (Table) 02/13/23 02/13/23 02/14/23 Range/Units 14:50 17:48 12:02 POC Glucose (mg/dL) 321 H 321 H 153 H (70-110) mg/dL Assessment and Plan (1) Ischemic colitis Current Visit: Yes Status: Acute Code(s): K55.9 - VASCULAR DISORDER OF INTESTINE, UNSPECIFIED SNOMED Code(s): 34059635 (2) Sepsis Current Visit: No Status: Acute Code(s): A41.9 - SEPSIS, UNSPECIFIED ORGANISM SNOMED Code(s): 69461046 Plan: 1patient presented to hospital abdominal pain has been diagnosed with ischemic colitis in this patient infusion of septic shock with low-grade fever tachycardia elevated white count elevated lactic acid source being ischemic large bowel status post subtotal colectomy and end ileostomy , patient subsequently did have worsening of her respiratory status and cardiac arrest requiring reintubation and the patient was subsequently extubated 2-Patient with Enterobacter pneumonia. The patient has received adequate cefepime and Flagyl and can be discontinued on discharge PICC line should be discontinued before discharge as well 3-elevated white count with a concern for possible oropharyngeal candidiasis with the white count improving down to 12,000 today, the patient will continue with the Diflucan for 7 days on discharge and close outpatient follow-up Time with Patient: Less than 30
[2023-02-14 15:04] LABS: ALT 21 U/L (8-44); AST 14 U/L (13-35); African American GFR (CKD) 89.5 (60.0-200.0); Albumin 3.4 g/dL (3.8-4.9); Albumin/Globulin Ratio 1.16 (1.60-3.17); Alkaline Phosphatase 148 U/L (41-126); Blood Urea Nitrogen 12.2 mg/dL (9.0-27.0); Calcium 9.1 mg/dL (8.7-10.3); Carbon Dioxide 17.9 mmol/L (20.0-27.5); Chloride 105 mmol/L (96-109); Globulin 2.9 g/dL (1.6-3.3); Glucose 82 mg/dL (70-110); Non-African American GFR(CKD) 77.2 (60.0-200.0); Potassium 3.7 mmol/L (3.5-5.5); Sodium 134 mmol/L (135-145); Total Bilirubin <0.15 mg/dL (0.30-1.20); Total Protein 6.4 g/dL (6.2-8.2)
[2023-02-14 15:17] VITALS: BP 111/64; RESP 18; TEMP 99
[2023-02-14 15:34] VITALS: PULSE 92
== END 2023-02-14 17:13 | DRG 853 ==
LOC: EC 10:21 → 2SICU 14:25 → 4SSUR 02-06 20:00
PROVIDERS: ADMIT Surgery Plastic and Reconstructive Surgery; ATTEND Surgery Plastic and Reconstructive Surgery
PROC: 3E043XZ Introduction of Vasopressor into Central Vein, Percutaneous Approach (ICD-10-PCS; 2023-01-19)
PROC: 5A1945Z Respiratory Ventilation, 24-96 Consecutive Hours (ICD-10-PCS; 2023-01-19)
PROC: 0DTE0ZZ Resection of Large Intestine, Open Approach (ICD-10-PCS; principal; 2023-01-19 09:20)
PROC: 0D1B0Z4 Bypass Ileum to Cutaneous, Open Approach (ICD-10-PCS; principal; 2023-01-19 09:20)
PROC: 0DNW0ZZ Release Peritoneum, Open Approach (ICD-10-PCS; principal; 2023-01-19 09:20)
PROC: 02HV33Z Insertion of Infusion Device into Superior Vena Cava, Percutaneous Approach (ICD-10-PCS; 2023-01-20)
PROC: 3E0436Z Introduction of Nutritional Substance into Central Vein, Percutaneous Approach (ICD-10-PCS; 2023-01-21)
PROC: 0D9670Z Drainage of Stomach with Drainage Device, Via Natural or Artificial Opening (ICD-10-PCS; 2023-01-28)
PROC: 5A12012 Performance of Cardiac Output, Single, Manual (ICD-10-PCS; 2023-01-28)
PROC: 0BH17EZ Insertion of Endotracheal Airway into Trachea, Via Natural or Artificial Opening (ICD-10-PCS; 2023-01-28)
PROC: 5A1945Z Respiratory Ventilation, 24-96 Consecutive Hours (ICD-10-PCS; 2023-01-28)
PROC: 03HY32Z Insertion of Monitoring Device into Upper Artery, Percutaneous Approach (ICD-10-PCS; 2023-01-29)
PROC: 4A133J1 Monitoring of Arterial Pulse, Peripheral, Percutaneous Approach (ICD-10-PCS; 2023-01-29)
PROC: 4A133B1 Monitoring of Arterial Pressure, Peripheral, Percutaneous Approach (ICD-10-PCS; 2023-01-29)
PROC: 02HV33Z Insertion of Infusion Device into Superior Vena Cava, Percutaneous Approach (ICD-10-PCS; 2023-01-30)
DX: A41.9 Sepsis, unspecified organism (principal); G93.41 Metabolic encephalopathy; K55.039 Acute (reversible) ischemia of large intestine, extent unspecified; R65.21 Severe sepsis with septic shock; N17.0 Acute kidney failure with tubular necrosis; I46.9 Cardiac arrest, cause unspecified; J69.0 Pneumonitis due to inhalation of food and vomit; J96.01 Acute respiratory failure with hypoxia; K55.049 Acute infarction of large intestine, extent unspecified; K56.2 Volvulus; K65.9 Peritonitis, unspecified; R45.851 Suicidal ideations; Q43.8 Other specified congenital malformations of intestine; J44.1 Chronic obstructive pulmonary disease with (acute) exacerbation; B37.0 Candidal stomatitis; E87.1 Hypo-osmolality and hyponatremia; E87.3 Alkalosis; F11.20 Opioid dependence, uncomplicated; K51.90 Ulcerative colitis, unspecified, without complications; E87.21 Acute metabolic acidosis; K56.7 Ileus, unspecified; L89.152 Pressure ulcer of sacral region, stage 2; Z89.511 Acquired absence of right leg below knee; K74.69 Other cirrhosis of liver; E86.0 Dehydration; E83.39 Other disorders of phosphorus metabolism; E66.01 Morbid (severe) obesity due to excess calories; Z68.34 Body mass index [BMI] 34.0-34.9, adult; F17.210 Nicotine dependence, cigarettes, uncomplicated; F32.A Depression, unspecified; N39.3 Stress incontinence (female) (male); E03.9 Hypothyroidism, unspecified; E78.5 Hyperlipidemia, unspecified; E86.1 Hypovolemia; E11.51 Type 2 diabetes mellitus with diabetic peripheral angiopathy without gangrene; E11.65 Type 2 diabetes mellitus with hyperglycemia; E11.40 Type 2 diabetes mellitus with diabetic neuropathy, unspecified; K59.00 Constipation, unspecified; F17.290 Nicotine dependence, other tobacco product, uncomplicated; K66.0 Peritoneal adhesions (postprocedural) (postinfection); E11.21 Type 2 diabetes mellitus with diabetic nephropathy; G25.3 Myoclonus; E87.6 Hypokalemia; R33.9 Retention of urine, unspecified; E87.5 Hyperkalemia; Z20.822 Contact with and (suspected) exposure to COVID-19; E87.8 Other disorders of electrolyte and fluid balance, not elsewhere classified; I11.0 Hypertensive heart disease with heart failure; I50.9 Heart failure, unspecified; K21.9 Gastro-esophageal reflux disease without esophagitis; Z79.899 Other long term (current) drug therapy; Z79.890 Hormone replacement therapy; Z79.84 Long term (current) use of oral hypoglycemic drugs; Z79.4 Long term (current) use of insulin; Z79.82 Long term (current) use of aspirin; Z89.412 Acquired absence of left great toe; Z71.3 Dietary counseling and surveillance
CPT/HCPCS: 36415; 36573; 36600; 71045; 71046; 71250; 74018; 74019; 74022; 74176; 74250; 80048; 80053; 81001; 82140; 82150; 82330; 82570; 82805; 83605; 83690; 83735; 84100; 84132; 84145; 84300; 84478; 84540; 85025; 85027; 85610; 85730; 86140; 86850; 86900; 86901; 87040; 87070; 87075; 87077; 87186; 87205; 87636; 88309; 92950; 93005; 94002; 94003; 94640; 94760; 96361; 96365; 99291

== ENCOUNTER 2023-03-01 17:32 | Inpatient (IN) | payer MEDICARE, OTHER ==
[2023-03-01 19:26] LABS: Anisocytosis Slight; Basophils # (A) 0.1 k/uL (0-0.2); Basophils % (A) 0 %; Eosinophils # (A) 0.2 k/uL (0-0.7); Eosinophils % (A) 1 %; HCT 31.8 % (34.0-46.0); HGB 10.8 gm/dL (11.4-16.0); Lymphocytes # (A) 2.8 k/uL (1.0-4.8); Lymphocytes % (A) 20 %; MCHC 33.9 g/dL (31.0-37.0); MCV 85.5 fL (80.0-100.0); Mean Platelet Volume 6.7; Monocytes # (A) 0.9 k/uL (0-1.0); Monocytes % (A) 6 %; Neutrophils # (A) 10.1 k/uL (1.3-7.7); Neutrophils % (A) 70 %; Platelet Count 433 k/uL (150-450); Poikilocytosis Slight; RBC 3.72 m/uL (3.80-5.40); RDW 16.1 % (11.5-15.5); WBC 14.4 k/uL (3.8-10.6)
[2023-03-01 19:56] LABS: ALT 19 U/L (4-34); AST 18 U/L (14-36); African American GFR (CKD) 21 (>60 ml/min/1.73 sqM); Albumin 4.1 g/dL (3.5-5.0); Alkaline Phosphatase 149 U/L (38-126); Anion Gap 16 mmol/L; Blood Urea Nitrogen 49 mg/dL (7-17); Calcium 9.6 mg/dL (8.4-10.2); Chloride 96 mmol/L (98-107); Glucose 171 mg/dL (74-99); Non-African American GFR(CKD) 18 (>60 ml/min/1.73 sqM); Sodium 120 mmol/L (137-145); Total Bilirubin 0.5 mg/dL (0.2-1.3); Total Protein 8.3 g/dL (6.3-8.2)
[2023-03-01 20:04] LABS: Carbon Dioxide 8 mmol/L (22-30); Potassium 6.9 mmol/L (3.5-5.1)
[2023-03-01] MEDS ORDERED: SODIUM CHLORIDE 0.9% 500 ML 500 ML IV STA ×2 (20:13→20:19)
[2023-03-01] MEDS ORDERED: SODIUM BICARB 8.4% 50 ML SYR (1 MEQ/ML) IV STA (20:16)
[2023-03-01] MEDS ORDERED: INSULIN REGULAR 100 UNIT/ML VIAL (IV) IV STA (20:16)
[2023-03-01] MEDS ORDERED: SODIUM CHLORIDE 0.9% 1,000 ML IV STA (20:19)
[2023-03-01] MEDS ORDERED: CALCIUM GLUCONATE IN NACL 1 GM in SALINE 1 100ML.BAG IVPB ONE (20:30)
[2023-03-01] MEDS ORDERED: ACETAMINOPHEN TAB 325 MG TAB PO PRN (21:45)
[2023-03-01] MEDS ORDERED: NALOXONE 0.4 MG/ML 1 ML VIAL IV PRN (21:45)
[2023-03-01] MEDS: SODIUM CHLORIDE 0.9% 1,000 ML IV SCH (21:49)
[2023-03-01 22:38] LABS: Glucose,Whole Blood 135 mg/dL (70-110)
[2023-03-02] MEDS ORDERED: ONDANSETRON 4 MG TAB PO PRN (02:52)
[2023-03-02] MEDS ORDERED: ALBUTEROL NEBULIZED 2.5 MG/3 ML INHALATION PRN (02:52)
[2023-03-02] MEDS ORDERED: DEXTROSE 50% SYRINGE 50 ML IVP PRN ×2 (02:57)
[2023-03-02 06:08] LABS: Glucose,Whole Blood 155 mg/dL (70-110)
[2023-03-02] MEDS: SODIUM CHLORIDE 0.9% 1,000 ML IV SCH (06:10)
[2023-03-02 06:15] LABS: ALT 19 U/L (4-34); AST 18 U/L (14-36); African American GFR (CKD) 27 (>60 ml/min/1.73 sqM); Albumin 3.3 g/dL (3.5-5.0); Alkaline Phosphatase 122 U/L (38-126); Anion Gap 12 mmol/L; Blood Urea Nitrogen 47 mg/dL (7-17); Calcium 8.5 mg/dL (8.4-10.2); Carbon Dioxide 10 mmol/L (22-30); Chloride 101 mmol/L (98-107); Globulin 3.3 g/dL; Glucose 126 mg/dL (74-99); Non-African American GFR(CKD) 24 (>60 ml/min/1.73 sqM); Potassium 5.2 mmol/L (3.5-5.1); Sodium 123 mmol/L (137-145); Total Bilirubin 0.3 mg/dL (0.2-1.3); Total Protein 6.6 g/dL (6.3-8.2)
[2023-03-02] MEDS: LEVOTHYROXINE 88 MCG TAB PO SCH (06:20)
[2023-03-02] MEDS: HYDROcodone/APAP 10-325MG 1 EACH TAB PO PRN ×3 (06:20→20:39)
[2023-03-02] MEDS: INSULIN ASPART (NovoLOG) 100 UNIT/ML VIAL SQ SCH ×4 (06:21→21:22)
--- NOTE | 2023-03-02 06:38 | ED ---
General Adult HPI - General Chief complaint: Recheck/Abnormal Lab/Rx Stated complaint: Abnormal Labs Time Seen by Provider: 03/01/23 17:50 Source: patient, family (), EMS Mode of arrival: EMS Limitations: physical limitation - History of Present Illness Initial comments: This patient is a 67-year-old woman who is here to have evaluation for elevated potassium. History comes from the patient as well as the patient's who is at bedside. [facility] They had sent labs, reportedly routine testing. Potassium was found to be above 6 at the [facility] so she was sent here to have reevaluation. When I interview the patient, she does complain of fatigue and generalized weakness. She does not have chest pain, dyspnea, palpitations. No abdominal pain but patient did have vomiting earlier. -: hour(s) Severity scale (1-10): 0 Consistency: constant Improves with: none Worsens with: none Associated Symptoms: weakness Treatments Prior to Arrival: none - Related Data Home Medications Medication Instructions Recorded Confirmed Oxybutynin Chloride [oxyBUTYnin 10 mg PO DAILY 08/17/20 03/01/23 chloride ER] Topiramate 50 mg PO BID 08/17/20 03/01/23 Fluticasone Nasal [place] [Flonase 1 spr EA NOSTRIL HS 09/17/21 03/01/23 Nasal [place]] Albuterol Inhaler [Ventolin Hfa 2 puff INHALATION RT-QID PRN 12/14/21 03/01/23 Inhaler] Levothyroxine Sodium 88 mcg PO DAILY 12/14/21 03/01/23 Atorvastatin [Lipitor] 40 mg PO DAILY 06/16/22 03/01/23 Cholecalciferol (Vitamin D3) 125 mcg PO DAILY 06/16/22 03/01/23 [Vitamin D3 (125 MCG = 5,000 IU)] Fluticasone Propion/Salmeterol 1 puff INHALATION RT-BID 06/16/22 03/01/23 [Advair 500-50 Diskus] Multivitamins, Thera [Multivitamin 1 tab PO DAILY 06/16/22 03/01/23 (formulary)] Triamcinolone 0.1% Cream [Kenalog 1 applic TOPICAL BID PRN 06/16/22 03/01/23 0.1% Cream] Vitamin E (Dl,Tocopheryl Acet) 400 unit PO DAILY 06/16/22 03/01/23 [Vitamin E (400 Iu = 180 mg)] Famotidine [Pepcid] 20 mg PO BID 01/19/23 03/01/23 Levocetirizine Dihydrochloride 5 mg PO BID 01/19/23 03/01/23 [Xyzal] Mupirocin 2% Oint [Bactroban 2% 1 applic TOPICAL DAILY 01/19/23 03/01/23 Oint] Acetaminophen Tab [Tylenol] 650 mg PO Q4H PRN 03/01/23 03/01/23 Collagenase [Santyl Ointment] 1 applic TOPICAL HS 03/01/23 03/01/23 FLUoxetine HCL [PROzac] 10 mg PO DIRECTED 03/01/23 03/01/23 FLUoxetine HCL [PROzac] 20 mg PO DAILY 03/01/23 03/01/23 Insulin Aspart [Insulin Aspart See Protocol SQ AC-TID 03/01/23 03/01/23 Flexpen] Insulin Glargine,Hum.rec.anlog 42 units SQ BID 03/01/23 03/01/23 [Insulin Glargine] Maxorb Extra 2 (Calcium 1 applic TOPICAL HS 03/01/23 03/01/23 Alginate-Carboxymethylcellulose Sodium) Methyl Salicylate/Menth/Camph 1 patch TOPICAL DAILY 03/01/23 03/01/23 [Salonpas 3.1%-6.0%-10.0% Patch] Metoprolol Succinate (ER) [Toprol 25 mg PO DAILY 03/01/23 03/01/23 XL] Ondansetron [Zofran] 4 mg PO Q6H PRN 03/01/23 03/01/23 Simethicone [Gas-X] 125 - 250 mg PO TID PRN 03/01/23 03/01/23 hydrALAZINE HCL [Apresoline] 100 mg PO TID 03/01/23 03/01/23 Previous Rx's Medication Instructions Recorded Aspirin 325 mg PO DAILY #30 tab 06/18/22 Ipratropium-Albuterol Nebulize 3 ml INHALATION RT-QID each 02/13/23 [Duoneb 0.5 mg-3 mg/3 ml Soln] Mirtazapine [Remeron] 15 mg PO HS tab 02/13/23 amLODIPine [Norvasc] 10 mg PO DAILY tab 02/13/23 cloNIDine HCL [Catapres] 0.2 mg PO BID tab 02/13/23 Gabapentin [Neurontin] 100 mg PO BID #6 cap 03/06/23 HYDROcodone/APAP 10-325MG [[place] 1 tab PO Q6H PRN 3 Days #12 tab 03/06/23 10-325] LORazepam [Ativan] 1 mg PO DAILY PRN #3 tab 03/06/23 LORazepam [Ativan] 1 mg PO HS 3 Days #3 tab 03/06/23 Allergies Allergy/AdvReac Type Severity Reaction Status Date / Time No Known Allergies Allergy Verified 03/01/23 21:51 Review of Systems ROS Statement: Those systems with pertinent positive or pertinent negative responses have been documented in the HPI. ROS Other: All systems not noted in ROS Statement are negative. Constitutional: Reports: weakness. Denies: fever Eyes: Denies: vision change Respiratory: Denies: cough, dyspnea Cardiovascular: Denies: chest pain, palpitations, syncope Gastrointestinal: Reports: vomiting. Denies: abdominal pain, diarrhea Musculoskeletal: Denies: back pain Neurological: Denies: headache, weakness, numbness 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, ostomy Past Anesthesia/Blood Transfusion Reactions: No Reported Reaction Past Psychological History: Depression Smoking Status: Current every day smoker Past Alcohol Use History: None Reported Past Drug Use History: None Reported Additional Drug Use History / Comment(s): Patient states she smokes about 10 cig/day. - Past Family History Father Family Medical History: Coronary Artery Disease (CAD) Mother Family Medical History: Diabetes Mellitus General Exam Limitations: physical limitation General appearance: alert, cachectic Head exam: Present: atraumatic, normocephalic Eye exam: Present: normal appearance. Absent: scleral icterus, conjunctival injection ENT exam: Present: mucous membranes dry Neck exam: Present: normal inspection, full ROM Respiratory exam: Present: normal lung sounds bilaterally, rales (bilateral bases), rhonchi. Absent: respiratory distress, wheezes, stridor Cardiovascular Exam: Present: regular rate, normal rhythm, normal heart sounds. Absent: systolic murmur, diastolic murmur, rubs, gallop GI/Abdominal exam: Present: soft, other (Colostomy present). Absent: distended, tenderness, guarding, rebound, rigid Extremities exam: Present: normal inspection, normal capillary refill. Absent: pedal edema, calf tenderness Back exam: Present: normal inspection Neurological exam: Present: alert Skin exam: Present: warm, dry, intact, normal color. Absent: rash Course Vital Signs 03/01/23 03/01/23 03/01/23 17:40 18:52 20:48 Temperature 97.8 F 98.8 F Pulse Rate 92 90 84 Respiratory 17 17 14 Rate Blood Pressure 114/65 106/72 105/78 O2 Sat by Pulse 100 99 Oximetry 03/01/23 03/02/23 23:00 01:07 Temperature Pulse Rate 102 H 81 Respiratory 18 16 Rate Blood Pressure 91/58 117/84 O2 Sat by Pulse 98 97 Oximetry EKG Findings - EKG Results: EKG: interpreted by BRENDAN, sinus rhythm (Rate 88 bpm), normal ST/T - Blocks, [place], Hypertrophy, ST Abn: QRS axis and voltage: right axis deviation (+90 to +180), low voltage (<0.5 MV total QRS and <1.0 MV in each precordial lead) Medical Decision Making - Medical Decision Making Patient is 67-year-old woman sent in from [facility] after lab testing there revealed hyperkalemia. Patient does appear hypovolemic. Repeat testing is ordered and IV fluids started. Patient found to have hyponatremia and hyperkalemia. Case is discussed with admitting physician and patient admitted with nephrology consultation. She did receive hyperkalemia treatment. Was pt. sent in by a medical professional or institution (, PA, ADMINISTRATIVE PROCESSOR, urgent care, hospital, or [facility]...) When possible be specific @ -Yes sent from [facility] after abnormal lab result Did you speak to anyone other than the patient for history (EMS, parent, family, police, friend...)? What history was obtained from this source @ -[The patient's did give history Did you review nursing and triage notes (agree or disagree)? Why? @ -[I reviewed and agree with nursing and triage notes] Were old charts reviewed (outside hosp., previous admission, EMS record, old EKG, old radiological studies, urgent care reports/EKG's, [facility] records)? Report findings @ -[Transfer paperwork was reviewed] Differential Diagnosis (chest pain, altered mental status, abdominal pain women, abdominal pain men, vaginal bleeding, weakness, fever, dyspnea, syncope, headache, dizziness, GI bleed, back pain, seizure, CVA, palpatations, mental health, musculoskeletal)? @ -[Differential Weakness: Hypoglycemia, shock, sepsis, hyponatremia, anemia, infection, MN, ETOH, adverse medicine reaction, overdose, stroke, this is not meant to be an all-inclusive list. EKG interpreted by me (3pts min.). @ -[As above] X-rays interpreted by me (1pt min.). @ -[None done] CT interpreted by me (1pt min.). @ -[None done] U/S interpreted by me (1pt. min.). @ -[None done] What testing was considered but not performed or refused? (CT, X-rays, U/S, labs)? Why? @ -[None] What meds were considered but not given or refused? Why? @ -[None] Did you discuss the management of the patient with other professionals (professionals i.e. , PA, ADMINISTRATIVE PROCESSOR, lab, RT, psych nurse, administrator social welfare, used car salesperson, teacher, health promotion officer, senior case manager)? Give summary @ -[Case discussed with admitting physician Was smoking cessation discussed for >3mins.? @ -[No] Was critical care preformed (if so, how long)? @ -[Yes 30 minutes Were there social determinants of health that impacted care today? How? (Homelessness, low income, unemployed, alcoholism, drug addiction, transportation, low edu. Level, literacy, decrease access to med. care, [facility], rehab)? @ -[No] Was there de-escalation of care discussed even if they declined (Discuss DNR or withdrawal of care, Hospice)? DNR status @ -[No] What co-morbidities impacted this encounter? (DM, HTN, Smoking, COPD, CAD, Cancer, CVA, ARF, Chemo, Hep., AIDS, mental health diagnosis, sleep apnea, morbid obesity)? @ -[None] Was patient admitted / discharged? Hospital course, mention meds given and route, prescriptions, significant lab abnormalities, going to OR and other pertinent info. @ -[Patient is admitted Undiagnosed new problem with uncertain prognosis? @ -[No] Drug Therapy requiring intensive monitoring for toxicity (Heparin, Nitro, Insulin, Cardizem)? @ -[No] Were any procedures done? @ -[No] Diagnosis/symptom? @ -[Acute hyperkalemia Acute hyponatremia Acute, or Chronic, or Acute on Chronic? @ -[Acute Uncomplicated (without systemic symptoms) or Complicated (systemic symptoms)? @ -[The electrolyte abnormalities or complicated with generalized weakness Side effects of treatment? @ -[No] Exacerbation, Progression, or Severe Exacerbation? @ -[No] Poses a threat to life or bodily function? How? (Chest pain, [place], MN, pneumonia, PE, COPD, DKA, ARF, appy, cholecystitis, CVA, Diverticulitis, Homicidal, Suicidal, threat to staff... and all critical care pts) @ -[Yes, untreated hyperkalemia may result in cardiac arrhythmia/ - Lab Data Result diagrams: 03/06/23 05:45 03/06/23 05:45 Lab Results 03/01/23 03/01/23 Range/Units 19:15 19:15 WBC 14.4 H (3.8-10.6) k/uL RBC 3.72 L (3.80-5.40) m/uL Hgb 10.8 L (11.4-16.0) gm/dL Hct 31.8 L (34.0-46.0) % MCV 85.5 (80.0-100.0) fL MCH 29.0 (25.0-35.0) pg MCHC 33.9 (31.0-37.0) g/dL RDW 16.1 H (11.5-15.5) % Plt Count 433 (150-450) k/uL MPV 6.7 Neutrophils % 70 % Lymphocytes % 20 % Monocytes % 6 % Eosinophils % 1 % Basophils % 0 % Neutrophils # 10.1 H (1.3-7.7) k/uL Lymphocytes # 2.8 (1.0-4.8) k/uL Monocytes # 0.9 (0-1.0) k/uL Eosinophils # 0.2 (0-0.7) k/uL Basophils # 0.1 (0-0.2) k/uL Poikilocytosis Slight Anisocytosis Slight Sodium 120 L (137-145) mmol/L Potassium 6.9 H* (3.5-5.1) mmol/L Chloride 96 L (98-107) mmol/L Carbon Dioxide 8 L* (22-30) mmol/L Anion Gap 16 mmol/L BUN 49 H (7-17) mg/dL Creatinine 2.62 H (0.52-1.04) mg/dL Est GFR (CKD-EPI)AfAm 21 (>60 ml/min/1.73 sqM) Est GFR (CKD-EPI)NonAf 18 (>60 ml/min/1.73 sqM) Glucose 171 H (74-99) mg/dL Calcium 9.6 (8.4-10.2) mg/dL Total Bilirubin 0.5 (0.2-1.3) mg/dL AST 18 (14-36) U/L ALT 19 (4-34) U/L Alkaline Phosphatase 149 H (38-126) U/L Total Protein 8.3 H (6.3-8.2) g/dL Albumin 4.1 (3.5-5.0) g/dL Critical Care Time Critical Care Time: Yes (30 minutes) Disposition Clinical Impression: Hyperkalemia, Acute kidney injury, Acute hyponatremia Disposition: ADMITTED IP TO THIS [facility] Condition: Serious Is patient prescribed a controlled substance at d/c from ED?: No
[2023-03-02] MEDS: IPRATROPIUM-ALBUTEROL 3 ML NEB INHALATION SCH ×4 (07:42→21:09)
[2023-03-02] MEDS: SYMBICORT 160-4.5 MCG INHALER INHALATION SCH ×2 (07:42→21:10)
--- NOTE | 2023-03-02 08:29 | P.HPIM ---
History of Present Illness H&P Date: 03/02/23 Chief Complaint: Weakness with hyperkalemia This is a history and physical on a 67-year-old black female who was recently discharged for a long hospitalization related to ischemic colitis resulting in partial colectomy. The patient had a long hospitalization due to competitions postoperatively. She coded in the computed tomography scan and was then stabilized. She went to the [facility] and is now readmitted secondary to severe hyperkalemia. The patient is now been stabilized and feels much better. Appreciate nephrology consultation. No overt chest pain palpitations no syncope. Review of Systems Eyes: denies blurred vision, denies pain Ears, nose, mouth and throat: Denies headache, Denies sore throat Cardiovascular: Denies chest pain, Denies shortness of breath Respiratory: Denies cough Gastrointestinal: Denies abdominal pain, Denies diarrhea, Denies nausea, Denies vomiting 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, ostomy Past Anesthesia/Blood Transfusion Reactions: No Reported Reaction Past Psychological History: Depression Smoking Status: Current every day smoker Past Alcohol Use History: None Reported Past Drug Use History: None Reported Additional Drug Use History / Comment(s): Patient states she smokes about 10 cig/day. - Past Family History Father Family Medical History: Coronary Artery Disease (CAD) Mother Family Medical History: Diabetes Mellitus Medications and Allergies Home Medications Medication Instructions Recorded Confirmed Type Oxybutynin Chloride [oxyBUTYnin 10 mg PO DAILY 08/17/20 03/01/23 History chloride ER] Topiramate 50 mg PO BID 08/17/20 03/01/23 History Fluticasone Nasal [place] [Flonase 1 spr EA NOSTRIL HS 09/17/21 03/01/23 History Nasal [place]] Albuterol Inhaler [Ventolin Hfa 2 puff INHALATION RT-QID PRN 12/14/21 03/01/23 History Inhaler] Levothyroxine Sodium 88 mcg PO DAILY 12/14/21 03/01/23 History Atorvastatin [Lipitor] 40 mg PO DAILY 06/16/22 03/01/23 History Cholecalciferol (Vitamin D3) 125 mcg PO DAILY 06/16/22 03/01/23 History [Vitamin D3 (125 MCG = 5,000 IU)] Fluticasone Propion/Salmeterol 1 puff INHALATION RT-BID 06/16/22 03/01/23 History [Advair 500-50 Diskus] Multivitamins, Thera [Multivitamin 1 tab PO DAILY 06/16/22 03/01/23 History (formulary)] Triamcinolone 0.1% Cream [Kenalog 1 applic TOPICAL BID PRN 06/16/22 03/01/23 History 0.1% Cream] Vitamin E (Dl,Tocopheryl Acet) 400 unit PO DAILY 06/16/22 03/01/23 History [Vitamin E (400 Iu = 180 mg)] Aspirin 325 mg PO DAILY #30 tab 06/18/22 03/01/23 Rx Famotidine [Pepcid] 20 mg PO BID 01/19/23 03/01/23 History Levocetirizine Dihydrochloride 5 mg PO BID 01/19/23 03/01/23 History [Xyzal] Mupirocin 2% Oint [Bactroban 2% 1 applic TOPICAL DAILY 01/19/23 03/01/23 History Oint] Gabapentin [Neurontin] 100 mg PO BID cap 02/13/23 03/01/23 Rx HYDROcodone/APAP 10-325MG [[place] 1 tab PO Q6H PRN 30 Days #120 tab 02/13/23 03/01/23 Rx 10-325] Ipratropium-Albuterol Nebulize 3 ml INHALATION RT-QID each 02/13/23 03/01/23 Rx [Duoneb 0.5 mg-3 mg/3 ml Soln] Mirtazapine [Remeron] 15 mg PO HS tab 02/13/23 03/01/23 Rx amLODIPine [Norvasc] 10 mg PO DAILY tab 02/13/23 03/01/23 Rx cloNIDine HCL [Catapres] 0.2 mg PO BID tab 02/13/23 03/01/23 Rx Acetaminophen Tab [Tylenol] 650 mg PO Q4H PRN 03/01/23 03/01/23 History Collagenase [Santyl Ointment] 1 applic TOPICAL HS 03/01/23 03/01/23 History FLUoxetine HCL [PROzac] 10 mg PO DIRECTED 03/01/23 03/01/23 History FLUoxetine HCL [PROzac] 20 mg PO DAILY 03/01/23 03/01/23 History Insulin Aspart [Insulin Aspart See Protocol SQ AC-TID 03/01/23 03/01/23 History Flexpen] Insulin Glargine,Hum.rec.anlog 42 units SQ BID 03/01/23 03/01/23 History [Insulin Glargine] LORazepam [Ativan] 1 mg PO DAILY PRN 03/01/23 03/01/23 History LORazepam [Ativan] 1 mg PO HS 03/01/23 03/01/23 History Maxorb Extra 2 ([place]cium 1 applic TOPICAL HS 03/01/23 03/01/23 History Alginate-Carboxymethylcellulose Sodium) Methyl Salicylate/Menth/Camph 1 patch TOPICAL DAILY 03/01/23 03/01/23 History [Salonpas 3.1%-6.0%-10.0% Patch] Metoprolol Succinate (ER) [Toprol 25 mg PO DAILY 03/01/23 03/01/23 History Xl] Ondansetron [Zofran] 4 mg PO Q6H PRN 03/01/23 03/01/23 History Simethicone [Gas-X] 125 - 250 mg PO TID PRN 03/01/23 03/01/23 History hydrALAZINE HCL [Apresoline] 100 mg PO TID 03/01/23 03/01/23 History Allergies Allergy/AdvReac Type Severity Reaction Status Date / Time No Known Allergies Allergy Verified 03/01/23 21:51 Physical Exam Vitals: Vital Signs Temp Pulse Pulse Resp BP BP Pulse Ox 03/02/23 07:53 78 03/02/23 07:43 76 03/02/23 04:45 18 03/02/23 03:48 97.5 F L 84 18 116/71 99 03/02/23 01:07 81 16 117/84 97 03/01/23 23:00 102 H 18 91/58 98 03/01/23 20:48 98.8 F 84 14 105/78 03/01/23 18:52 90 17 106/72 99 03/01/23 17:40 97.8 F 92 17 114/65 100 Intake and Output 03/01/23 03/02/2303/02/23 22:59 06:59 14:59 Other: Voiding Method External Catheter Weight 90.718 kg 90.718 kg - Constitutional General appearance: no acute distress - EENT Eyes: EOMI - Neck Neck: no lymphadenopathy - Respiratory Respiratory: bilateral: CTA - Cardiovascular Rhythm: regular Heart sounds: normal: S1, S2 Abnormal Heart Sounds: no S3 Gallop - Gastrointestinal General gastrointestinal: soft, no tenderness - Integumentary Integumentary: no cellulitis - Musculoskeletal Right lower extremity" amputation. - Psychiatric Psychiatric: A&O x's 3, no appropriate affect Results CBC & Chem 7: 03/01/23 19:15 03/02/23 05:25 Labs: Abnormal Lab Results - Last 24 Hours (Table) 03/01/23 03/01/23 03/01/23 Range/Units 19:15 19:15 22:26 WBC 14.4 H (3.8-10.6) k/uL RBC 3.72 L (3.80-5.40) m/uL Hgb 10.8 L (11.4-16.0) gm/dL Hct 31.8 L (34.0-46.0) % RDW 16.1 H (11.5-15.5) % Neutrophils # 10.1 H (1.3-7.7) k/uL Sodium 120 L (137-145) mmol/L Potassium 6.9 H* (3.5-5.1) mmol/L Chloride 96 L (98-107) mmol/L Carbon Dioxide 8 L* (22-30) mmol/L BUN 49 H (7-17) mg/dL Creatinine 2.62 H (0.52-1.04) mg/dL Glucose 171 H (74-99) mg/dL POC Glucose (mg/dL) 135 H (70-110) mg/dL Osmolality (280-301) mosm/kg Alkaline Phosphatase 149 H (38-126) U/L Total Protein 8.3 H (6.3-8.2) g/dL Albumin (3.5-5.0) g/dL 03/01/23 03/02/23 03/02/23 Range/Units 23:30 05:25 06:07 WBC (3.8-10.6) k/uL RBC (3.80-5.40) m/uL Hgb (11.4-16.0) gm/dL Hct (34.0-46.0) % RDW (11.5-15.5) % Neutrophils # (1.3-7.7) k/uL Sodium 123 L (137-145) mmol/L Potassium 5.2 H (3.5-5.1) mmol/L Chloride (98-107) mmol/L Carbon Dioxide 10 L (22-30) mmol/L BUN 47 H (7-17) mg/dL Creatinine 2.12 H (0.52-1.04) mg/dL Glucose 126 H (74-99) mg/dL POC Glucose (mg/dL) 155 H (70-110) mg/dL Osmolality 274 L (280-301) mosm/kg Alkaline Phosphatase (38-126) U/L Total Protein (6.3-8.2) g/dL Albumin 3.3 L (3.5-5.0) g/dL Thrombosis Risk Factor Assmnt - Choose All That Apply Any of the Below Risk Factors Present?: Yes Each Factor Represents 1 point: Abnormal pulmonary function (COPD), Obesity (BMI >25) Other Risk Factors: Yes Each Risk Factor Represents 2 Points: Age 61-74 years Other congenital or acquired thrombophilia - If yes, enter type in comment: No Thrombosis Risk Factor Assessment Total Risk Factor Score: 4 Thrombosis Risk Factor Assessment Level: Moderate Risk Assessment and Plan (1) Hyperkalemia Current Visit: Yes Status: Acute Code(s): E87.5 - HYPERKALEMIA SNOMED Code(s): 78765944 (2) At risk for readmission to hospital Current Visit: No Status: Acute Code(s): Z91.89 - OTH PERSONAL RISK FACTORS, NOT ELSEWHERE CLASSIFIED SNOMED Code(s): 8599375599033 (3) COPD (chronic obstructive pulmonary disease) Current Visit: No Status: Acute Code(s): J44.9 - CHRONIC OBSTRUCTIVE PULMONARY DISEASE, UNSPECIFIED SNOMED Code(s): 95177056 (4) History of below-knee amputation of right lower extremity Current Visit: No Status: Acute Code(s): Z89.511 - ACQUIRED ABSENCE OF RIGHT LEG BELOW KNEE SNOMED Code(s): 151442892930013 (5) Ischemic colitis Current Visit: No Status: Acute Code(s): K55.9 - VASCULAR DISORDER OF INTESTINE, UNSPECIFIED SNOMED Code(s): 08467456 (6) Opioid dependence Current Visit: No Status: Acute Code(s): F11.20 - OPIOID DEPENDENCE, UNCOMPLICATED SNOMED Code(s): 91020508 (7) Type 2 diabetes mellitus Current Visit: No Status: Acute Code(s): E11.9 - TYPE 2 DIABETES MELLITUS WITHOUT COMPLICATIONS SNOMED Code(s): 67716556 Plan: Continue hydration. check CMP in a.m. Anticipate discharge in a.m. Reconcile home medications. Appreciate nephrology input.
[2023-03-02] MEDS: GABAPENTIN 100 MG CAP PO SCH ×2 (08:36→20:39)
[2023-03-02] MEDS: VITAMIN E (DL,TOCOPHERYL ACET) 400 UNIT (180 MG) CAP PO SCH (08:36)
[2023-03-02] MEDS: ATORVASTATIN 40 MG TAB PO SCH (08:36)
[2023-03-02] MEDS: CHOLECALCIFEROL 125 MCG (5000 IU) TABLET PO SCH (08:37)
[2023-03-02] MEDS: OXYBUTYNIN 10 MG TAB.ER.24 PO SCH (08:37)
[2023-03-02] MEDS: METOPROLOL SUCCINATE (ER) 25 MG TAB.ER.24H PO SCH (08:37)
[2023-03-02] MEDS: MULTIVITAMINS, THERA 1 EACH TAB PO SCH (08:37)
[2023-03-02] MEDS: LORATADINE 10 MG TAB PO SCH (08:37)
[2023-03-02] MEDS: FAMOTIDINE 20 MG TAB PO SCH (08:38)
[2023-03-02] MEDS: amLODIPine 10 MG TAB PO SCH (08:38)
[2023-03-02] MEDS: hydrALAZINE HCL 50 MG TAB PO SCH ×3 (08:39→20:39)
[2023-03-02] MEDS: cloNIDine HCL 0.2 MG TAB PO SCH ×2 (08:39→20:39)
[2023-03-02] MEDS ORDERED: FAMOTIDINE 20 MG TAB PO SCH (09:00)
[2023-03-02] MEDS ORDERED: DEXTROSE 5% IN WATER 1,000 ML with SODIUM BICARB (1 MEQ/ML) 150 ML IV SCH (09:45)
[2023-03-02 10:24] LABS: African American GFR (CKD) 33 (>60 ml/min/1.73 sqM); Anion Gap 12 mmol/L; Blood Urea Nitrogen 43 mg/dL (7-17); Calcium 8.3 mg/dL (8.4-10.2); Carbon Dioxide 12 mmol/L (22-30); Chloride 99 mmol/L (98-107); Glucose 187 mg/dL (74-99); Non-African American GFR(CKD) 29 (>60 ml/min/1.73 sqM); Potassium 5.4 mmol/L (3.5-5.1); Sodium 123 mmol/L (137-145)
--- NOTE | 2023-03-02 10:52 | P.NPCON ---
History of Present Illness - Reason for Consult hyperkalemia - History of Present Illness Patient is a 67-year-old female who was recently discharged on 02/13/2023 after prolonged hospitalization. At that time patient was admitted for acute abdomen with ischemic bowel and sepsis. Status post explorative laparotomy with total abdominal colectomy and end ileostomy with lysis of adhesions. Patient had also sustained a cardiac arrest during her last hospitalization. Patient developed acute kidney injury with serum creatinine at 3.4 at peak. Renal function has subsequently improved with serum creatinine down to 0.8 mg/dL on 02/14/2023. Patient is admitted to the hospital with history of elevated potassium as outpatient. She is currently at rehab facility. Potassium was 6.9 yesterday. Family reports patient has had increased output from her ileostomy. She has not been eating much. No history of fever cough abdominal pain. Labs this admission showed CO2 of 8, serum creatinine 2.1 and sodium at 123. Patient has an external catheter. 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 - Past Family History Father Family Medical History: Coronary Artery Disease (CAD) Mother Family Medical History: Diabetes Mellitus Medications and Allergies Home Medications Medication Instructions Recorded Confirmed Type Oxybutynin Chloride [oxyBUTYnin 10 mg PO DAILY 08/17/20 03/01/23 History chloride ER] Topiramate 50 mg PO BID 08/17/20 03/01/23 History Fluticasone [place] [Flonase 1 spr EA NOSTRIL HS 09/17/21 03/01/23 History [place]] Albuterol Inhaler [Ventolin Hfa 2 puff INHALATION RT-QID PRN 12/14/21 03/01/23 History Inhaler] Levothyroxine Sodium 88 mcg PO DAILY 12/14/21 03/01/23 History Atorvastatin [Lipitor] 40 mg PO DAILY 06/16/22 03/01/23 History Cholecalciferol (Vitamin D3) 125 mcg PO DAILY 06/16/22 03/01/23 History [Vitamin D3 (125 MCG = 5,000 IU)] Fluticasone Propion/Salmeterol 1 puff INHALATION RT-BID 06/16/22 03/01/23 History [Advair 500-50 Diskus] Multivitamins, Thera [Multivitamin 1 tab PO DAILY 06/16/22 03/01/23 History (formulary)] Triamcinolone 0.1% Cream [Kenalog 1 applic TOPICAL BID PRN 06/16/22 03/01/23 History 0.1% Cream] Vitamin E (Dl,Tocopheryl Acet) 400 unit PO DAILY 06/16/22 03/01/23 History [Vitamin E (400 Iu = 180 mg)] Aspirin 325 mg PO DAILY #30 tab 06/18/22 03/01/23 Rx Famotidine [Pepcid] 20 mg PO BID 01/19/23 03/01/23 History Levocetirizine Dihydrochloride 5 mg PO BID 01/19/23 03/01/23 History [Xyzal] Mupirocin 2% Oint [Bactroban 2% 1 applic TOPICAL DAILY 01/19/23 03/01/23 History Oint] Gabapentin [Neurontin] 100 mg PO BID cap 02/13/23 03/01/23 Rx HYDROcodone/APAP 10-325MG [[place] 1 tab PO Q6H PRN 30 Days #120 tab 02/13/23 03/01/23 Rx 10-325] Ipratropium-Albuterol Nebulize 3 ml INHALATION RT-QID each 02/13/23 03/01/23 Rx [Duoneb 0.5 mg-3 mg/3 ml Soln] Mirtazapine [Remeron] 15 mg PO HS tab 02/13/23 03/01/23 Rx amLODIPine [Norvasc] 10 mg PO DAILY tab 02/13/23 03/01/23 Rx cloNIDine HCL [Catapres] 0.2 mg PO BID tab 02/13/23 03/01/23 Rx Acetaminophen Tab [Tylenol] 650 mg PO Q4H PRN 03/01/23 03/01/23 History Collagenase [Santyl Ointment] 1 applic TOPICAL HS 03/01/23 03/01/23 History FLUoxetine HCL [PROzac] 10 mg PO DIRECTED 03/01/23 03/01/23 History FLUoxetine HCL [PROzac] 20 mg PO DAILY 03/01/23 03/01/23 History Insulin Aspart [Insulin Aspart See Protocol SQ AC-TID 03/01/23 03/01/23 History Flexpen] Insulin Glargine,Hum.rec.anlog 42 units SQ BID 03/01/23 03/01/23 History [Insulin Glargine] LORazepam [Ativan] 1 mg PO DAILY PRN 03/01/23 03/01/23 History LORazepam [Ativan] 1 mg PO HS 03/01/23 03/01/23 History Maxorb Extra 2 (Calcium 1 applic TOPICAL HS 03/01/23 03/01/23 History Alginate-Carboxymethylcellulose Sodium) Methyl Salicylate/Menth/Camph 1 patch TOPICAL DAILY 03/01/23 03/01/23 History [Salonpas 3.1%-6.0%-10.0% Patch] Metoprolol Succinate (ER) [Toprol 25 mg PO DAILY 03/01/23 03/01/23 History Xl] Ondansetron [Zofran] 4 mg PO Q6H PRN 03/01/23 03/01/23 History Simethicone [Gas-X] 125 - 250 mg PO TID PRN 03/01/23 03/01/23 History hydrALAZINE HCL [Apresoline] 100 mg PO TID 03/01/23 03/01/23 History Allergies Allergy/AdvReac Type Severity Reaction Status Date / Time No Known Allergies Allergy Verified 03/01/23 21:51 Physical Exam Vitals: Vital Signs Temp Pulse Pulse Resp BP BP Pulse Ox 03/02/23 08:10 98.1 F 94 16 120/69 100 03/02/23 07:53 78 03/02/23 07:43 76 03/02/23 04:45 18 03/02/23 03:48 97.5 F L 84 18 116/71 99 03/02/23 01:07 81 16 117/84 97 03/01/23 23:00 102 H 18 91/58 98 03/01/23 20:48 98.8 F 84 14 105/78 03/01/23 18:52 90 17 106/72 99 03/01/23 17:40 97.8 F 92 17 114/65 100 Intake and Output 03/01/23 03/02/23 03/02/23 22:59 06:59 14:59 Intake Total 360 Balance 360 Intake: Oral 360 Other: Voiding Method External Catheter External Catheter Weight 90.718 kg 90.718 kg Patient is awake, comfortable, in no acute distress Examination of the heart S1 and S2 Examination of the lungs bilateral breath sounds are heard Abdomen is soft, nontender, ileostomy present examination lower extremities shows no edema. Patient has a right BKA [employer] exam grossly intact Results - Lab Results Most recent lab results Calcium 8.3 mg/dL (8.4-10.2) L 03/02/23 10:01 03/01/23 19:15 03/02/23 10:01 Assessment and Plan Assessment: 1. Acute kidney injury, ischemic ATN, nonoliguric. Etiology is hypotension and volume depletion. Maintained on IV fluids with improvement in renal function. 2. Non-gap metabolic acidosis secondary to acute kidney injury as well as GI fluid loss from the ileostomy 3. Hyperkalemia associated with acute kidney injury as well as severe acidosis 4. Hypovolemic hyponatremia 5. History of sepsis and septic shock with bowel ischemia status post explorative laparotomy, colectomy and end ileostomy on 01/19/2023 Plan: Change IV fluids to IV bicarb Repeat labs this evening Patient will need oral sodium bicarb post discharge Monitor labs more frequently as outpatient. Check bladder scan and rule out urine retention Thank you for the consultation. We will continue to follow the patient with you during her hospitalization.
[2023-03-02 12:27] LABS: Glucose,Whole Blood 249 mg/dL (70-110)
[2023-03-02] MEDS: SODIUM CHLORIDE 0.45% 1,000 ML with SODIUM BICARB (1 MEQ/ML) 150 ML IV SCH ×4 (12:40→22:22)
[2023-03-02 13:24] LABS: Appearance,Urine Clear (Clear); Bilirubin,Urine Negative (Negative); Blood,Urine Negative (Negative); Color,Urine Yellow; Glucose,Urine (UA) Negative (Negative); Ketones,Urine Negative (Negative); Leukocyte Esterase,Urine Negative (Negative); Mucus,Urine Rare /hpf; Nitrite,Urine Negative (Negative); PH, Urine 6.5 (5.0-8.0); Protein,Urine 1+ (Negative); Specific Gravity,Urine 1.008 (1.001-1.035); Urobilinogen,Urine <2.0 mg/dL (<2.0); WBC,Urine 6 /hpf (0-5)
[2023-03-02 15:12] VITALS: BMI 36.6
[2023-03-02 16:58] LABS: Glucose,Whole Blood 480 mg/dL (70-110)
[2023-03-02 20:48] LABS: Glucose,Whole Blood 168 mg/dL (70-110)
[2023-03-02] MEDS: FLUTICASONE 50MCG/SPRAY NASAL 16GM EA NOSTRIL SCH (21:21)
[2023-03-03] MEDS: HYDROcodone/APAP 10-325MG 1 EACH TAB PO PRN ×4 (04:48→23:27)
[2023-03-03 06:09] LABS: Glucose,Whole Blood 118 mg/dL (70-110)
[2023-03-03] MEDS: INSULIN ASPART (NovoLOG) 100 UNIT/ML VIAL SQ SCH ×4 (06:13→22:43)
[2023-03-03] MEDS: LEVOTHYROXINE 88 MCG TAB PO SCH (06:14)
[2023-03-03 06:44] LABS: HCT 25.9 % (34.0-46.0); MCH 29.6 pg (25.0-35.0); MCHC 33.9 g/dL (31.0-37.0); MCV 87.4 fL (80.0-100.0); Mean Platelet Volume 6.7; Platelet Count 253 k/uL (150-450); Poikilocytosis Slight; RBC 2.96 m/uL (3.80-5.40); RDW 15.8 % (11.5-15.5); WBC 8.4 k/uL (3.8-10.6)
[2023-03-03 06:47] LABS: HGB 8.8 gm/dL (11.4-16.0)
[2023-03-03 07:07] LABS: ALT 17 U/L (4-34); AST 17 U/L (14-36); African American GFR (CKD) 65 (>60 ml/min/1.73 sqM); Albumin 3.1 g/dL (3.5-5.0); Alkaline Phosphatase 121 U/L (38-126); Anion Gap 10 mmol/L; Blood Urea Nitrogen 28 mg/dL (7-17); Calcium 8.3 mg/dL (8.4-10.2); Carbon Dioxide 16 mmol/L (22-30); Chloride 100 mmol/L (98-107); Globulin 3.1 g/dL; Glucose 97 mg/dL (74-99); Non-African American GFR(CKD) 56 (>60 ml/min/1.73 sqM); Potassium 5.2 mmol/L (3.5-5.1); Sodium 126 mmol/L (137-145); Total Bilirubin 0.2 mg/dL (0.2-1.3); Total Protein 6.2 g/dL (6.3-8.2)
[2023-03-03] MEDS: SYMBICORT 160-4.5 MCG INHALER INHALATION SCH ×2 (07:29→21:18)
[2023-03-03] MEDS: IPRATROPIUM-ALBUTEROL 3 ML NEB INHALATION SCH ×4 (07:29→21:18)
[2023-03-03] MEDS: CHOLECALCIFEROL 125 MCG (5000 IU) TABLET PO SCH (07:59)
[2023-03-03] MEDS: MULTIVITAMINS, THERA 1 EACH TAB PO SCH (07:59)
[2023-03-03] MEDS: VITAMIN E (DL,TOCOPHERYL ACET) 400 UNIT (180 MG) CAP PO SCH (07:59)
[2023-03-03] MEDS: hydrALAZINE HCL 50 MG TAB PO SCH ×3 (08:00→21:13)
[2023-03-03] MEDS: METOPROLOL SUCCINATE (ER) 25 MG TAB.ER.24H PO SCH (08:00)
[2023-03-03] MEDS: cloNIDine HCL 0.2 MG TAB PO SCH ×2 (08:00→21:13)
[2023-03-03] MEDS: amLODIPine 10 MG TAB PO SCH (08:00)
[2023-03-03] MEDS: GABAPENTIN 100 MG CAP PO SCH ×2 (08:00→21:13)
[2023-03-03] MEDS: OXYBUTYNIN 10 MG TAB.ER.24 PO SCH (08:00)
[2023-03-03] MEDS: ATORVASTATIN 40 MG TAB PO SCH (08:00)
[2023-03-03] MEDS: FAMOTIDINE 20 MG TAB PO SCH (08:00)
[2023-03-03] MEDS: LORATADINE 10 MG TAB PO SCH (08:00)
[2023-03-03] MEDS: SODIUM CHLORIDE 0.45% 1,000 ML with SODIUM BICARB (1 MEQ/ML) 150 ML IV SCH ×4 (12:11→16:13)
--- NOTE | 2023-03-03 12:26 | P.PN ---
Subjective Patient is seen for follow-up for hyperkalemia and acute kidney injury. Patient was noted to have significant urine retention with post void urine volume of 1700 mL. Garcia catheter was placed. Serum creatinine is down to 1.0. Potassium is at 5.2. Sodium is 126. No significant complaints today. Patient is tolerating oral intake. Objective - Vital Signs Vital signs: Vital Signs Temp 98.9 F 03/03/23 08:00 Pulse 88 03/03/23 08:00 Resp 16 03/03/23 08:00 BP 124/60 03/03/23 08:00 Pulse Ox 99 03/03/23 08:00 FiO2 Intake & Output 03/02/23 03/03/23 03/03/23 18:59 06:59 18:59 Intake Total 360 118 Output Total 3461 1500 Balance -3101 -1500 118 Weight 90.718 kg Intake: Oral 360 118 Output: Urine 2440 1500 Straight 1700 Post Void Residual 1021 Other: Voiding Method External Catheter External Catheter External Catheter # Bowel Movements 5 - Exam Patient is awake, comfortable, no acute distress Examination of the heart S1 and S2 Examination lungs bilateral breath sounds are heard Abdomen is soft nontender, ileostomy Exertion lower extremities shows the right BKA, no edema noted - Labs CBC & Chem 7: 03/03/23 05:37 03/03/23 05:37 Labs: Abnormal Lab Results - Last 24 Hours (Table) 03/02/23 03/02/23 03/02/23 Range/Units 12:25 12:52 12:52 RBC (3.80-5.40) m/uL Hgb (11.4-16.0) gm/dL Hct (34.0-46.0) % RDW (11.5-15.5) % Sodium (137-145) mmol/L Potassium (3.5-5.1) mmol/L Carbon Dioxide (22-30) mmol/L BUN (7-17) mg/dL POC Glucose (mg/dL) 249 H (70-110) mg/dL Calcium (8.4-10.2) mg/dL Total Protein (6.3-8.2) g/dL Albumin (3.5-5.0) g/dL Urine Protein 1+ H (Negative) Urine WBC 6 H (0-5) /hpf Urine Mucus Rare H (None) /hpf Ur Random Sodium <20 L (40-220) mmol/L 03/02/23 03/02/23 03/03/23 Range/Units 16:56 20:46 05:37 RBC 2.96 L (3.80-5.40) m/uL Hgb 8.8 L D (11.4-16.0) gm/dL Hct 25.9 L (34.0-46.0) % RDW 15.8 H (11.5-15.5) % Sodium (137-145) mmol/L Potassium (3.5-5.1) mmol/L Carbon Dioxide (22-30) mmol/L BUN (7-17) mg/dL POC Glucose (mg/dL) 480 H 168 H (70-110) mg/dL Calcium (8.4-10.2) mg/dL Total Protein (6.3-8.2) g/dL Albumin (3.5-5.0) g/dL Urine Protein (Negative) Urine WBC (0-5) /hpf Urine Mucus (None) /hpf Ur Random Sodium (40-220) mmol/L 03/03/23 03/03/23 Range/Units 05:37 06:08 RBC (3.80-5.40) m/uL Hgb (11.4-16.0) gm/dL Hct (34.0-46.0) % RDW (11.5-15.5) % Sodium 126 L (137-145) mmol/L Potassium 5.2 H (3.5-5.1) mmol/L Carbon Dioxide 16 L (22-30) mmol/L BUN 28 H (7-17) mg/dL POC Glucose (mg/dL) 118 H (70-110) mg/dL Calcium 8.3 L (8.4-10.2) mg/dL Total Protein 6.2 L (6.3-8.2) g/dL Albumin 3.1 L (3.5-5.0) g/dL Urine Protein (Negative) Urine WBC (0-5) /hpf Urine Mucus (None) /hpf Ur Random Sodium (40-220) mmol/L Assessment and Plan Assessment: 1. Acute kidney injury, ischemic ATN, nonoliguric. Etiology is hypotension and volume depletion. Maintained on IV fluids with improvement in renal function. Etiology also includes significant urine retention, currently status post Garcia catheter placement 2. Non-gap metabolic acidosis secondary to acute kidney injury as well as GI fluid loss from the ileostomy 3. Hyperkalemia associated with acute kidney injury as well as severe acidosis and secondary to urine retention. 4. Hypovolemic hyponatremia 5. History of sepsis and septic shock with bowel ischemia status post explorative laparotomy, colectomy and end ileostomy on 01/19/2023 Plan: Continue with IV bicarb Continue with Garcia catheter Consult urology Repeat labs in a.m.
[2023-03-03 12:38] LABS: Glucose,Whole Blood 243 mg/dL (70-110)
--- NOTE | 2023-03-03 13:17 | P.PN ---
Subjective Progress Note Date: 03/03/23 Patient is a 67-year-old female who was recently discharged on 02/13/2023 after prolonged hospitalization. At that time patient was admitted for acute abdomen with ischemic bowel and sepsis. Status post explorative laparotomy with total abdominal colectomy and end ileostomy with lysis of adhesions. Patient had also sustained a cardiac arrest during her last hospitalization. Patient developed acute kidney injury with serum creatinine at 3.4 at peak. Renal function has subsequently improved with serum creatinine down to 0.8 mg/dL on 02/14/2023. Patient is admitted to the hospital with history of elevated potassium as outpatient. She is currently at rehab facility. Potassium was 6.9 yesterday. Family reports patient has had increased output from her ileostomy. She has not been eating much. No history of fever cough abdominal pain. 03/03. Patient seen and examined. Labs done this morning showed white count 8.4, hemoglobin 8.8, sodium 126, potassium 5.2, BUN 28, creatinine 1.03. Denies any abdominal pain. Denies any nausea or vomiting. Vital signs stable REVIEW OF SYSTEMS: CONSTITUTIONAL: No fever, no malaise,. CARDIOVASCULAR: No chest pain, no palpitations, no syncope. PULMONARY: No shortness of breath, no cough, GASTROINTESTINAL: No diarrhea, no nausea, no vomiting, no abdominal pain. NEUROLOGICAL: No headaches, no weakness, PHYSICAL EXAMINATION: GENERAL: The patient is alert and oriented x3, not in any acute distress. Well developed, well nourished. HEENT: Pupils are round and equally reacting to light. EOMI. No scleral icterus. No conjunctival pallor. Normocephalic, atraumatic. No pharyngeal erythema. No thyromegaly. CARDIOVASCULAR: S1 and S2 present. No murmurs, rubs, or gallops. PULMONARY: Chest is clear to auscultation, no wheezing or crackles. ABDOMEN: Soft, nontender, nondistended, normoactive bowel sounds. No palpable organomegaly. Ostomy seen MUSCULOSKELETAL: No joint swelling or deformity. EXTREMITIES: No cyanosis, clubbing, or pedal edema. NEUROLOGICAL: Gross neurological examination did not reveal any focal deficits. SKIN: No rashes. Assessment and plan Acute kidney injury Non-anion gap metabolic acidosis Hyperkalemia Hyponatremia Hypertension Hypothyroidism Monitor vital signs Monitor CBC Monitor CMP Continue telemetry monitoring Strict I's and O's daily weights Avoid nephrotoxic agents Continue IV fluids with bicarbonate Continue Synthroid 88 MCG daily Continue hydralazine, Norvasc, clonidine Continue Lipitor Continue Symbicort and DuoNeb breathing treatments follow-up on nephrology recommendations DVT prophylaxis: Objective - Vital Signs Vital signs: Vital Signs Temp 98.9 F 03/03/23 08:00 Pulse 88 03/03/23 08:00 Resp 16 03/03/23 08:00 BP 124/60 03/03/23 08:00 Pulse Ox 99 03/03/23 08:00 FiO2 Intake & Output 03/02/23 03/03/23 03/03/23 18:59 06:59 18:59 Intake Total 360 118 Output Total 3461 1500 Balance -3101 -1500 118 Weight 90.718 kg Intake: Oral 360 118 Output: Urine 2440 1500 Straight 1700 Post Void Residual 1021 Other: Voiding Method External Catheter External Catheter External Catheter # Bowel Movements 5 - Labs CBC & Chem 7: 03/03/23 05:37 03/03/23 05:37 Labs: Abnormal Lab Results - Last 24 Hours (Table) 03/02/23 03/02/23 03/02/23 Range/Units 10:01 12:25 12:52 RBC (3.80-5.40) m/uL Hgb (11.4-16.0) gm/dL Hct (34.0-46.0) % RDW (11.5-15.5) % Sodium 123 L (137-145) mmol/L Potassium 5.4 H (3.5-5.1) mmol/L Carbon Dioxide 12 L (22-30) mmol/L BUN 43 H (7-17) mg/dL Creatinine 1.79 H (0.52-1.04) mg/dL Glucose 187 H (74-99) mg/dL POC Glucose (mg/dL) 249 H (70-110) mg/dL Calcium 8.3 L (8.4-10.2) mg/dL Total Protein (6.3-8.2) g/dL Albumin (3.5-5.0) g/dL Urine Protein 1+ H (Negative) Urine WBC 6 H (0-5) /hpf Urine Mucus Rare H (None) /hpf Ur Random Sodium (40-220) mmol/L 03/02/23 03/02/23 03/02/23 Range/Units 12:52 16:56 20:46 RBC (3.80-5.40) m/uL Hgb (11.4-16.0) gm/dL Hct (34.0-46.0) % RDW (11.5-15.5) % Sodium (137-145) mmol/L Potassium (3.5-5.1) mmol/L Carbon Dioxide (22-30) mmol/L BUN (7-17) mg/dL Creatinine (0.52-1.04) mg/dL Glucose (74-99) mg/dL POC Glucose (mg/dL) 480 H 168 H (70-110) mg/dL Calcium (8.4-10.2) mg/dL Total Protein (6.3-8.2) g/dL Albumin (3.5-5.0) g/dL Urine Protein (Negative) Urine WBC (0-5) /hpf Urine Mucus (None) /hpf Ur Random Sodium <20 L (40-220) mmol/L 03/03/23 03/03/23 03/03/23 Range/Units 05:37 05:37 06:08 RBC 2.96 L (3.80-5.40) m/uL Hgb 8.8 L D (11.4-16.0) gm/dL Hct 25.9 L (34.0-46.0) % RDW 15.8 H (11.5-15.5) % Sodium 126 L (137-145) mmol/L Potassium 5.2 H (3.5-5.1) mmol/L Carbon Dioxide 16 L (22-30) mmol/L BUN 28 H (7-17) mg/dL Creatinine (0.52-1.04) mg/dL Glucose (74-99) mg/dL POC Glucose (mg/dL) 118 H (70-110) mg/dL Calcium 8.3 L (8.4-10.2) mg/dL Total Protein 6.2 L (6.3-8.2) g/dL Albumin 3.1 L (3.5-5.0) g/dL Urine Protein (Negative) Urine WBC (0-5) /hpf Urine Mucus (None) /hpf Ur Random Sodium (40-220) mmol/L
[2023-03-03 17:08] LABS: Glucose,Whole Blood 196 mg/dL (70-110)
[2023-03-03] MEDS: LORazepam 1 MG TAB PO PRN (21:13)
[2023-03-03] MEDS: FLUTICASONE 50MCG/SPRAY NASAL 16GM EA NOSTRIL SCH (21:13)
[2023-03-03 21:41] LABS: Glucose,Whole Blood 231 mg/dL (70-110)
[2023-03-03 22:11] LABS: Glucose,Whole Blood 279 mg/dL (70-110)
[2023-03-03] MEDS ORDERED: HALOPERIDOL LACTATE 5 MG/ML 1 ML VIAL IM ONE (22:35)
[2023-03-03] MEDS ORDERED: VANCOMYCIN IV PER PHARMACY 1 EACH MISC MISCELLANE PRN (23:00)
[2023-03-03] MEDS ORDERED: VANCOMYCIN 0 MG in SODIUM CHLORIDE 0.9% 250 ML IVPB SCH (23:00)
[2023-03-03] MEDS ORDERED: VANCOMYCIN 1,500 MG in SODIUM CHLORIDE 0.9% 500 ML 500 ML IVPB ONE (23:30)
[2023-03-04 06:26] LABS: Glucose,Whole Blood 179 mg/dL (70-110)
[2023-03-04] MEDS: LEVOTHYROXINE 88 MCG TAB PO SCH (06:30)
[2023-03-04] MEDS: INSULIN ASPART (NovoLOG) 100 UNIT/ML VIAL SQ SCH ×4 (06:30→22:10)
[2023-03-04 06:36] LABS: Basophils % (A) 0 %; Eosinophils # (A) 0.1 k/uL (0-0.7); Eosinophils % (A) 1 %; HCT 25.4 % (34.0-46.0); HCT 25.9 % (34.0-46.0); HGB 8.5 gm/dL (11.4-16.0); Hypochromasia Slight; Lymphocytes % (A) 22 %; MCH 28.8 pg (25.0-35.0); MCH 29.1 pg (25.0-35.0); MCHC 32.9 g/dL (31.0-37.0); MCHC 33.5 g/dL (31.0-37.0); MCV 86.9 fL (80.0-100.0); MCV 87.4 fL (80.0-100.0); Mean Platelet Volume 6.7; Mean Platelet Volume 6.9; Monocytes # (A) 0.4 k/uL (0-1.0); Monocytes % (A) 5 %; Neutrophils # (A) 6.3 k/uL (1.3-7.7); Neutrophils % (A) 71 %; Platelet Count 297 k/uL (150-450); Platelet Count 302 k/uL (150-450); Poikilocytosis Slight; RBC 2.92 m/uL (3.80-5.40); RBC 2.96 m/uL (3.80-5.40); RDW 15.8 % (11.5-15.5); RDW 15.9 % (11.5-15.5); WBC 8.9 k/uL (3.8-10.6)
[2023-03-04] MEDS: SODIUM CHLORIDE 0.45% 1,000 ML with SODIUM BICARB (1 MEQ/ML) 150 ML IV SCH ×4 (06:45→11:15)
[2023-03-04 06:46] LABS: ALT 19 U/L (4-34); AST 20 U/L (14-36); African American GFR (CKD) >90 (>60 ml/min/1.73 sqM); Albumin 3.3 g/dL (3.5-5.0); Albumin/Globulin Ratio 1.1; Alkaline Phosphatase 124 U/L (38-126); Anion Gap 10 mmol/L; Blood Urea Nitrogen 16 mg/dL (7-17); Calcium 8.4 mg/dL (8.4-10.2); Carbon Dioxide 23 mmol/L (22-30); Chloride 98 mmol/L (98-107); Globulin 3.1 g/dL; Glucose 168 mg/dL (74-99); Non-African American GFR(CKD) 85 (>60 ml/min/1.73 sqM); Potassium 4.5 mmol/L (3.5-5.1); Sodium 131 mmol/L (137-145); Total Bilirubin 0.2 mg/dL (0.2-1.3); Total Protein 6.4 g/dL (6.3-8.2)
[2023-03-04] MEDS: hydrALAZINE HCL 50 MG TAB PO SCH ×3 (08:20→21:13)
[2023-03-04] MEDS: METOPROLOL SUCCINATE (ER) 25 MG TAB.ER.24H PO SCH (08:20)
[2023-03-04] MEDS: CHOLECALCIFEROL 125 MCG (5000 IU) TABLET PO SCH (08:20)
[2023-03-04] MEDS: LORATADINE 10 MG TAB PO SCH (08:20)
[2023-03-04] MEDS: ATORVASTATIN 40 MG TAB PO SCH (08:20)
[2023-03-04] MEDS: OXYBUTYNIN 10 MG TAB.ER.24 PO SCH (08:20)
[2023-03-04] MEDS: VITAMIN E (DL,TOCOPHERYL ACET) 400 UNIT (180 MG) CAP PO SCH (08:20)
[2023-03-04] MEDS: cloNIDine HCL 0.2 MG TAB PO SCH ×2 (08:21→21:14)
[2023-03-04] MEDS: FAMOTIDINE 20 MG TAB PO SCH (08:21)
[2023-03-04] MEDS: MULTIVITAMINS, THERA 1 EACH TAB PO SCH (08:21)
[2023-03-04] MEDS: amLODIPine 10 MG TAB PO SCH (08:21)
[2023-03-04] MEDS: GABAPENTIN 100 MG CAP PO SCH ×2 (08:24→21:13)
[2023-03-04] MEDS: HYDROcodone/APAP 10-325MG 1 EACH TAB PO PRN ×3 (08:30→21:14)
[2023-03-04] MEDS: IPRATROPIUM-ALBUTEROL 3 ML NEB INHALATION SCH ×4 (09:10→20:29)
[2023-03-04] MEDS: SYMBICORT 160-4.5 MCG INHALER INHALATION SCH ×2 (09:10→20:29)
[2023-03-04] MEDS ORDERED: diphenhydrAMINE 25 MG CAP PO PRN (10:47)
[2023-03-04 12:16] LABS: Glucose,Whole Blood 239 mg/dL (70-110)
--- NOTE | 2023-03-04 13:04 | P.PN ---
Subjective Progress Note Date: 03/04/23 Patient is a 67-year-old female who was recently discharged on 02/13/2023 after prolonged hospitalization. At that time patient was admitted for acute abdomen with ischemic bowel and sepsis. Status post explorative laparotomy with total abdominal colectomy and end ileostomy with lysis of adhesions. Patient had also sustained a cardiac arrest during her last hospitalization. Patient developed acute kidney injury with serum creatinine at 3.4 at peak. Renal function has subsequently improved with serum creatinine down to 0.8 mg/dL on 02/14/2023. Patient is admitted to the hospital with history of elevated potassium as outpatient. She is currently at rehab facility. Potassium was 6.9 yesterday. Family reports patient has had increased output from her ileostomy. She has not been eating much. No history of fever cough abdominal pain. 03/03. Patient seen and examined. Labs done this morning showed white count 8.4, hemoglobin 8.8, sodium 126, potassium 5.2, BUN 28, creatinine 1.03. Denies any abdominal pain. Denies any nausea or vomiting. Vital signs stable 03/04. Patient seen and examined. Labs done this morning showed hemoglobin 8.5, sodium 131, potassium 4.5, BUN 16, creatinine 0.74. States she is feeling better. Denies any nausea or vomiting REVIEW OF SYSTEMS: CONSTITUTIONAL: No fever, no malaise,. CARDIOVASCULAR: No chest pain, no palpitations, no syncope. PULMONARY: No shortness of breath, no cough, GASTROINTESTINAL: No diarrhea, no nausea, no vomiting, no abdominal pain. NEUROLOGICAL: No headaches, no weakness, PHYSICAL EXAMINATION: GENERAL: The patient is alert and oriented x3, not in any acute distress. Well developed, well nourished. HEENT: Pupils are round and equally reacting to light. EOMI. No scleral icterus. No conjunctival pallor. Normocephalic, atraumatic. No pharyngeal erythema. No thyromegaly. CARDIOVASCULAR: S1 and S2 present. No murmurs, rubs, or gallops. PULMONARY: Chest is clear to auscultation, no wheezing or crackles. ABDOMEN: Soft, nontender, nondistended, normoactive bowel sounds. No palpable organomegaly. Ostomy seen MUSCULOSKELETAL: Right BKA EXTREMITIES: No cyanosis, clubbing, or pedal edema. NEUROLOGICAL: Gross neurological examination did not reveal any focal deficits. SKIN: No rashes. Assessment and plan Acute kidney injury Non-anion gap metabolic acidosis Hyperkalemia Hyponatremia Hypertension Hypothyroidism Monitor vital signs Monitor CBC Monitor CMP Continue telemetry monitoring Strict I's and O's daily weights Avoid nephrotoxic agents Continue IV fluids with bicarbonate Continue Synthroid 88 MCG daily Continue hydralazine, Norvasc, clonidine Continue Lipitor Continue Symbicort and DuoNeb breathing treatments follow-up on nephrology recommendations Patient had Garcia for urinary retention, urology consulted Objective - Vital Signs Vital signs: Vital Signs Temp 98.5 F 03/04/23 08:00 Pulse 88 03/04/23 09:30 Resp 16 03/04/23 08:00 BP 127/62 03/04/23 08:00 Pulse Ox 100 03/04/23 09:13 FiO2 Intake & Output 03/03/23 03/04/23 03/04/23 18:59 06:59 18:59 Intake Total 118 Output Total 1200 200 Balance -1082 -200 Intake: Oral 118 Output: Urine 1000 Stool 200 200 Other: Voiding Method External Catheter External Catheter Indwelling Catheter # Voids 1 - Labs CBC & Chem 7: 03/04/23 06:12 03/04/23 06:12 Labs: Abnormal Lab Results - Last 24 Hours (Table) 03/03/23 03/03/23 03/03/23 Range/Units 05:37 17:07 21:39 RBC (3.80-5.40) m/uL Hgb (11.4-16.0) gm/dL Hct (34.0-46.0) % RDW (11.5-15.5) % Sodium (137-145) mmol/L Glucose (74-99) mg/dL POC Glucose (mg/dL) 196 H 231 H (70-110) mg/dL Hemoglobin A1c 6.8 H (<=6.0) % Albumin (3.5-5.0) g/dL 03/03/23 03/04/23 03/04/23 Range/Units 22:09 06:12 06:12 RBC 2.96 L (3.80-5.40) m/uL Hgb 8.5 L (11.4-16.0) gm/dL Hct 25.9 L (34.0-46.0) % RDW 15.9 H (11.5-15.5) % Sodium 131 L (137-145) mmol/L Glucose 168 H (74-99) mg/dL POC Glucose (mg/dL) 279 H (70-110) mg/dL Hemoglobin A1c (<=6.0) % Albumin 3.3 L (3.5-5.0) g/dL 03/04/23 03/04/23 03/04/23 Range/Units 06:12 06:25 12:13 RBC 2.92 L (3.80-5.40) m/uL Hgb 8.5 L (11.4-16.0) gm/dL Hct 25.4 L (34.0-46.0) % RDW 15.8 H (11.5-15.5) % Sodium (137-145) mmol/L Glucose (74-99) mg/dL POC Glucose (mg/dL) 179 H 239 H (70-110) mg/dL Hemoglobin A1c (<=6.0) % Albumin (3.5-5.0) g/dL
--- NOTE | 2023-03-04 13:29 | P.PN ---
Subjective Patient is seen for follow-up for hyperkalemia and acute kidney injury. Patient was noted to have significant urine retention with post void urine volume of 1700 mL. Garcia catheter was placed. Serum creatinine is down to 0.7. Potassium is 4.5. No significant complaints today. Patient is tolerating oral intake. Objective - Vital Signs Vital signs: Vital Signs Temp 98.5 F 03/04/23 08:00 Pulse 92 03/04/23 12:58 Resp 16 03/04/23 08:00 BP 127/62 03/04/23 08:00 Pulse Ox 100 03/04/23 09:13 FiO2 Intake & Output 03/03/23 03/04/23 03/04/23 18:59 06:59 18:59 Intake Total 118 Output Total 1200 200 Balance -1082 -200 Intake: Oral 118 Output: Urine 1000 Stool 200 200 Other: Voiding Method External Catheter External Catheter Indwelling Catheter # Voids 1 - Exam Patient is awake, comfortable, no acute distress Examination of the heart S1 and S2 Examination lungs bilateral breath sounds are heard Abdomen is soft nontender, ileostomy Exertion lower extremities shows the right BKA, no edema noted - Labs CBC & Chem 7: 03/04/23 06:12 03/04/23 06:12 Labs: Abnormal Lab Results - Last 24 Hours (Table) 03/03/23 03/03/23 03/03/23 Range/Units 05:37 17:07 21:39 RBC (3.80-5.40) m/uL Hgb (11.4-16.0) gm/dL Hct (34.0-46.0) % RDW (11.5-15.5) % Sodium (137-145) mmol/L Glucose (74-99) mg/dL POC Glucose (mg/dL) 196 H 231 H (70-110) mg/dL Hemoglobin A1c 6.8 H (<=6.0) % Albumin (3.5-5.0) g/dL 03/03/23 03/04/23 03/04/23 Range/Units 22:09 06:12 06:12 RBC 2.96 L (3.80-5.40) m/uL Hgb 8.5 L (11.4-16.0) gm/dL Hct 25.9 L (34.0-46.0) % RDW 15.9 H (11.5-15.5) % Sodium 131 L (137-145) mmol/L Glucose 168 H (74-99) mg/dL POC Glucose (mg/dL) 279 H (70-110) mg/dL Hemoglobin A1c (<=6.0) % Albumin 3.3 L (3.5-5.0) g/dL 03/04/23 03/04/23 03/04/23 Range/Units 06:12 06:25 12:13 RBC 2.92 L (3.80-5.40) m/uL Hgb 8.5 L (11.4-16.0) gm/dL Hct 25.4 L (34.0-46.0) % RDW 15.8 H (11.5-15.5) % Sodium (137-145) mmol/L Glucose (74-99) mg/dL POC Glucose (mg/dL) 179 H 239 H (70-110) mg/dL Hemoglobin A1c (<=6.0) % Albumin (3.5-5.0) g/dL Assessment and Plan Assessment: 1. Acute kidney injury, ischemic ATN, nonoliguric. Etiology is hypotension and volume depletion. Maintained on IV fluids with improvement in renal function. Etiology also includes significant urine retention, currently status post Garcia catheter placement 2. Non-gap metabolic acidosis secondary to acute kidney injury as well as GI fluid loss from the ileostomy 3. Hyperkalemia associated with acute kidney injury as well as severe acidosis and secondary to urine retention. 4. Hypovolemic hyponatremia 5. History of sepsis and septic shock with bowel ischemia status post explo rative laparotomy, colectomy and end ileostomy on 01/19/2023 Plan: DC IV bicarb Switch to normal saline Continue with Garcia catheter Consult urology Repeat labs in a.m.
[2023-03-04] MEDS: SODIUM CHLORIDE 0.9% 1,000 ML IV SCH (15:42)
[2023-03-04 17:27] LABS: Glucose,Whole Blood 227 mg/dL (70-110)
[2023-03-04] MEDS: LORazepam 1 MG TAB PO PRN (21:14)
[2023-03-04] MEDS: FLUTICASONE 50MCG/SPRAY NASAL 16GM EA NOSTRIL SCH (21:19)
[2023-03-04 22:08] LABS: Glucose,Whole Blood 175 mg/dL (70-110)
[2023-03-05] MEDS ORDERED: VANCOMYCIN 1,500 MG in SODIUM CHLORIDE 0.9% 500 ML 500 ML IVPB SCH (01:00)
[2023-03-05] MEDS: HYDROcodone/APAP 10-325MG 1 EACH TAB PO PRN ×4 (03:08→18:09)
[2023-03-05] MEDS: SODIUM CHLORIDE 0.9% 1,000 ML IV SCH (05:03)
[2023-03-05] MEDS: LEVOTHYROXINE 88 MCG TAB PO SCH (05:51)
[2023-03-05 06:08] LABS: Glucose,Whole Blood 160 mg/dL (70-110)
[2023-03-05] MEDS: INSULIN ASPART (NovoLOG) 100 UNIT/ML VIAL SQ SCH ×4 (06:12→22:11)
[2023-03-05] MEDS: IPRATROPIUM-ALBUTEROL 3 ML NEB INHALATION SCH ×4 (08:36→19:51)
[2023-03-05] MEDS: SYMBICORT 160-4.5 MCG INHALER INHALATION SCH ×2 (08:36→19:50)
--- NOTE | 2023-03-05 09:01 | P.PN ---
Subjective Progress Note Date: 03/05/23 Principal diagnosis: Hyperkalemia This is a 67-year-old female who was originally admitted for hyperkalemia. She recently had a prolonged hospitalization for acute abdomen with ischemic bowel and sepsis. She was currently at a rehab facility. Hyperkalemia has improved. However patient did have significant urinary retention over the weekend with a post void residual of 1700 mL. She currently has a Garcia catheter in place. Urology has been consulted. Objective - Vital Signs Vital signs: Vital Signs Temp 98.3 F 03/05/23 08:00 Pulse 80 03/05/23 08:54 Resp 16 03/05/23 08:00 BP 145/71 03/05/23 08:00 Pulse Ox 99 03/05/23 08:38 FiO2 Intake & Output 03/04/23 03/05/23 03/05/23 18:59 06:59 18:59 Output Total 1300 1030 Balance -1300 -1030 Output: Urine 1100 1030 Stool 200 Other: Voiding Method Indwelling Catheter Indwelling Catheter Indwelling Catheter # Bowel Movements 2 5 - Constitutional General appearance: Present: cooperative, no acute distress - EENT Eyes: Present: PERRLA - Neck Neck: Present: normal ROM. Absent: lymphadenopathy, rigidity - Respiratory Respiratory: bilateral: CTA - Cardiovascular Rhythm: regular Heart sounds: normal: S1, S2 - Gastrointestinal General gastrointestinal: Present: soft. Absent: tenderness - Integumentary Integumentary: Present: normal, normal turgor - Musculoskeletal Musculoskeletal Comment(s): Right lower extremity amputation Musculoskeletal: Present: generalized weakness - Psychiatric Psychiatric: Present: A&O x's 3, appropriate affect, intact judgment & insight - Labs CBC & Chem 7: 03/04/23 06:12 03/04/23 06:12 Labs: Abnormal Lab Results - Last 24 Hours (Table) 03/04/23 03/04/23 03/04/23 Range/Units 12:13 17:26 22:05 POC Glucose (mg/dL) 239 H 227 H 175 H (70-110) mg/dL 03/05/23 Range/Units 06:07 POC Glucose (mg/dL) 160 H (70-110) mg/dL Assessment and Plan (1) THIERRY (acute kidney injury) Current Visit: Yes Status: Acute Code(s): N17.9 - ACUTE KIDNEY FAILURE, UNSPECIFIED SNOMED Code(s): 22689953 (2) Hyperkalemia Current Visit: Yes Status: Acute Code(s): E87.5 - HYPERKALEMIA SNOMED Code(s): 11428492 (3) At risk for readmission to hospital Current Visit: No Status: Acute Code(s): Z91.89 - OTH PERSONAL RISK FACTORS, NOT ELSEWHERE CLASSIFIED SNOMED Code(s): 2093036037579 (4) COPD (chronic obstructive pulmonary disease) Current Visit: No Status: Acute Code(s): J44.9 - CHRONIC OBSTRUCTIVE PULMONARY DISEASE, UNSPECIFIED SNOMED Code(s): 97162659 (5) History of below-knee amputation of right lower extremity Current Visit: No Status: Acute Code(s): Z89.511 - ACQUIRED ABSENCE OF RIGHT LEG BELOW KNEE SNOMED Code(s): 478654389461096 (6) Ischemic colitis Current Visit: No Status: Acute Code(s): K55.9 - VASCULAR DISORDER OF INTESTINE, UNSPECIFIED SNOMED Code(s): 82774033 (7) Opioid dependence Current Visit: No Status: Acute Code(s): F11.20 - OPIOID DEPENDENCE, UNCOMPLICATED SNOMED Code(s): 34594100 (8) Type 2 diabetes mellitus Current Visit: No Status: Acute Code(s): E11.9 - TYPE 2 DIABETES MELLITUS WITHOUT COMPLICATIONS SNOMED Code(s): 28579021 Plan: Appreciate consult from urology. Check labs in the morning. Patient seen and evaluated by nurse practitioner, physician in agreement with plan
[2023-03-05 09:02] LABS: ALT 18 U/L (4-34); AST 20 U/L (14-36); African American GFR (CKD) >90 (>60 ml/min/1.73 sqM); Alkaline Phosphatase 125 U/L (38-126); Anion Gap 7 mmol/L; Blood Urea Nitrogen 6 mg/dL (7-17); Calcium 8.1 mg/dL (8.4-10.2); Carbon Dioxide 24 mmol/L (22-30); Chloride 98 mmol/L (98-107); Glucose 221 mg/dL (74-99); Non-African American GFR(CKD) >90 (>60 ml/min/1.73 sqM); Potassium 3.5 mmol/L (3.5-5.1); Sodium 129 mmol/L (137-145); Total Bilirubin 0.3 mg/dL (0.2-1.3)
[2023-03-05] MEDS: ATORVASTATIN 40 MG TAB PO SCH (09:04)
[2023-03-05] MEDS: METOPROLOL SUCCINATE (ER) 25 MG TAB.ER.24H PO SCH (09:04)
[2023-03-05] MEDS: MULTIVITAMINS, THERA 1 EACH TAB PO SCH (09:04)
[2023-03-05] MEDS: FAMOTIDINE 20 MG TAB PO SCH (09:04)
[2023-03-05] MEDS: CHOLECALCIFEROL 125 MCG (5000 IU) TABLET PO SCH (09:04)
[2023-03-05] MEDS: LORATADINE 10 MG TAB PO SCH (09:04)
[2023-03-05] MEDS: amLODIPine 10 MG TAB PO SCH (09:04)
[2023-03-05] MEDS: VITAMIN E (DL,TOCOPHERYL ACET) 400 UNIT (180 MG) CAP PO SCH (09:05)
[2023-03-05] MEDS: OXYBUTYNIN 10 MG TAB.ER.24 PO SCH (09:05)
[2023-03-05] MEDS: hydrALAZINE HCL 50 MG TAB PO SCH ×3 (09:05→22:33)
[2023-03-05] MEDS: cloNIDine HCL 0.2 MG TAB PO SCH ×2 (09:05→22:33)
[2023-03-05] MEDS: GABAPENTIN 100 MG CAP PO SCH ×2 (09:09→22:10)
[2023-03-05 12:24] LABS: Glucose,Whole Blood 292 mg/dL (70-110)
--- NOTE | 2023-03-05 13:36 | P.PN ---
Subjective Patient is seen for follow-up for hyperkalemia and acute kidney injury. Patient was noted to have significant urine retention with post void urine volume of 1700 mL. Garcia catheter was placed. Serum creatinine is down to 0.5. Potassium is 3.5 Sodium 129 No significant complaints today. Patient is tolerating oral intake. Output from the ostomy is not excessive. Objective - Vital Signs Vital signs: Vital Signs Temp 98.3 F 03/05/23 08:00 Pulse 80 03/05/23 08:54 Resp 16 03/05/23 08:00 BP 145/71 03/05/23 08:00 Pulse Ox 99 03/05/23 08:38 FiO2 Intake & Output 03/04/23 03/05/23 03/05/23 18:59 06:59 18:59 Output Total 1300 1030 Balance -1300 -1030 Output: Urine 1100 1030 Stool 200 Other: Voiding Method Indwelling Catheter Indwelling Catheter Indwelling Catheter # Bowel Movements 2 5 - Exam Patient is awake, comfortable, no acute distress Examination of the heart S1 and S2 Examination lungs bilateral breath sounds are heard Abdomen is soft nontender, ileostomy Exertion lower extremities shows the right BKA, no edema noted - Labs CBC & Chem 7: 03/04/23 06:12 03/05/23 08:27 Labs: Abnormal Lab Results - Last 24 Hours (Table) 03/04/23 03/04/23 03/05/23 Range/Units 17:26 22:05 06:07 Sodium (137-145) mmol/L BUN (7-17) mg/dL Glucose (74-99) mg/dL POC Glucose (mg/dL) 227 H 175 H 160 H (70-110) mg/dL Calcium (8.4-10.2) mg/dL Total Protein (6.3-8.2) g/dL Albumin (3.5-5.0) g/dL 03/05/23 03/05/23 Range/Units 08:27 12:23 Sodium 129 L (137-145) mmol/L BUN 6 L (7-17) mg/dL Glucose 221 H (74-99) mg/dL POC Glucose (mg/dL) 292 H (70-110) mg/dL Calcium 8.1 L (8.4-10.2) mg/dL Total Protein 6.0 L (6.3-8.2) g/dL Albumin 3.0 L (3.5-5.0) g/dL Microbiology - Last 24 Hours (Table) 03/03/23 22:54 Gram Stain - Preliminary Abdomen Assessment and Plan Assessment: 1. Acute kidney injury, ischemic ATN, nonoliguric. Etiology is hypotension and volume depletion. Maintained on IV fluids with improvement in renal function. Etiology also includes significant urine retention, currently status post Garcia catheter placement 2. Non-gap metabolic acidosis secondary to acute kidney injury as well as GI fluid loss from the ileostomy 3. Hyperkalemia associated with acute kidney injury as well as severe acidosis and secondary to urine retention. 4. Hypovolemic hyponatremia 5. History of sepsis and septic shock with bowel ischemia status post explorative laparotomy, colectomy and end ileostomy on 01/19/2023 6. Mild hyponatremia. DC IV fluids and continue to encourage increased oral intake. Plan: Repeat sodium this evening Discontinue IV fluids Encourage increased oral intake Repeat labs as outpatient in 1-2 days if patient is discharged today.
--- NOTE | 2023-03-05 16:48 | P.GSCN ---
History of Present Illness Consult date: 03/05/23 Reason for Consult: Urinary retention Requesting physician: Charles Forde History of present illness: The patient is a 67-year-old female who underwent a colon resection on 01/19/[address] scan at that time showed no urologic abnormalities. She was discharged to an ECF on 02/13/2023. She is now readmitted for treatment of hyperkalemia. She was found to be in urinary retention. A Garcia catheter was placed, with return of 1700 mL of urine. She states that she has been treated for UTIs in the past. She believes she may have a history of urolithiasis, though she is unsure. She has a history of diabetes mellitus with peripheral neuropathy. She also reports a history of alcohol abuse in her you nger years. Review of Systems - Constitutional Denies chills, Denies fever - Cardiovascular Denies chest pain - Respiratory Denies dyspnea - Gastrointestinal Denies abdominal pain, Denies nausea, Denies vomiting - Genitourinary Genitourinary: Denies dysuria, Denies hematuria 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, ostomy Past Anesthesia/Blood Transfusion Reactions: No Reported Reaction Past Psychological History: Depression Smoking Status: Current every day smoker Past Alcohol Use History: None Reported Past Drug Use History: None Reported Additional Drug Use History / Comment(s): Patient states she smokes about 10 cig/day. - Past Family History Father Family Medical History: Coronary Artery Disease (CAD) Mother Family Medical History: Diabetes Mellitus Medications and Allergies Home Medications Medication Instructions Recorded Confirmed Type Oxybutynin Chloride [oxyBUTYnin 10 mg PO DAILY 08/17/20 03/01/23 History chloride ER] Topiramate 50 mg PO BID 08/17/20 03/01/23 History Fluticasone Nasal [place] [Flonase 1 spr EA NOSTRIL HS 09/17/21 03/01/23 History Nasal [place]] Albuterol Inhaler [Ventolin Hfa 2 puff INHALATION RT-QID PRN 12/14/21 03/01/23 History Inhaler] Levothyroxine Sodium 88 mcg PO DAILY 12/14/21 03/01/23 History Atorvastatin [Lipitor] 40 mg PO DAILY 06/16/22 03/01/23 History Cholecalciferol (Vitamin D3) 125 mcg PO DAILY 06/16/22 03/01/23 History [Vitamin D3 (125 MCG = 5,000 IU)] Fluticasone Propion/Salmeterol 1 puff INHALATION RT-BID 06/16/22 03/01/23 History [Advair 500-50 Diskus] Multivitamins, Thera [Multivitamin 1 tab PO DAILY 06/16/22 03/01/23 History (formulary)] Triamcinolone 0.1% Cream [Kenalog 1 applic TOPICAL BID PRN 06/16/22 03/01/23 History 0.1% Cream] Vitamin E (Dl,Tocopheryl Acet) 400 unit PO DAILY 06/16/22 03/01/23 History [Vitamin E (400 Iu = 180 mg)] Aspirin 325 mg PO DAILY #30 tab 06/18/22 03/01/23 Rx Famotidine [Pepcid] 20 mg PO BID 01/19/23 03/01/23 History Levocetirizine Dihydrochloride 5 mg PO BID 01/19/23 03/01/23 History [Xyzal] Mupirocin 2% Oint [Bactroban 2% 1 applic TOPICAL DAILY 01/19/23 03/01/23 History Oint] Gabapentin [Neurontin] 100 mg PO BID cap 02/13/23 03/01/23 Rx HYDROcodone/APAP 10-325MG [[place] 1 tab PO Q6H PRN 30 Days #120 tab 02/13/23 03/01/23 Rx 10-325] Ipratropium-Albuterol Nebulize 3 ml INHALATION RT-QID each 02/13/23 03/01/23 Rx [Duoneb 0.5 mg-3 mg/3 ml Soln] Mirtazapine [Remeron] 15 mg PO HS tab 02/13/23 03/01/23 Rx amLODIPine [Norvasc] 10 mg PO DAILY tab 02/13/23 03/01/23 Rx cloNIDine HCL [Catapres] 0.2 mg PO BID tab 02/13/23 03/01/23 Rx Acetaminophen Tab [Tylenol] 650 mg PO Q4H PRN 03/01/23 03/01/23 History Collagenase [Santyl Ointment] 1 applic TOPICAL HS 03/01/23 03/01/23 History FLUoxetine HCL [PROzac] 10 mg PO DIRECTED 03/01/23 03/01/23 History FLUoxetine HCL [PROzac] 20 mg PO DAILY 03/01/23 03/01/23 History Insulin Aspart [Insulin Aspart See Protocol SQ AC-TID 03/01/23 03/01/23 History Flexpen] Insulin Glargine,Hum.rec.anlog 42 units SQ BID 03/01/23 03/01/23 History [Insulin Glargine] LORazepam [Ativan] 1 mg PO DAILY PRN 03/01/23 03/01/23 History LORazepam [Ativan] 1 mg PO HS 03/01/23 03/01/23 History Maxorb Extra 2 (Calcium 1 applic TOPICAL HS 03/01/23 03/01/23 History Alginate-Carboxymethylcellulose Sodium) Methyl Salicylate/Menth/Camph 1 patch TOPICAL DAILY 03/01/23 03/01/23 History [Salonpas 3.1%-6.0%-10.0% Patch] Metoprolol Succinate (ER) [Toprol 25 mg PO DAILY 03/01/23 03/01/23 History Xl] Ondansetron [Zofran] 4 mg PO Q6H PRN 03/01/23 03/01/23 History Simethicone [Gas-X] 125 - 250 mg PO TID PRN 03/01/23 03/01/23 History hydrALAZINE HCL [Apresoline] 100 mg PO TID 03/01/23 03/01/23 History Allergies Allergy/AdvReac Type Severity Reaction Status Date / Time No Known Allergies Allergy Verified 03/01/23 21:51 Surgical - Exam Vital Signs Temp Pulse Resp BP Pulse Ox 97.8 F 92 17 114/65 100 03/01/23 17:40 03/01/23 17:40 03/01/23 17:40 03/01/23 17:40 03/01/23 17:40 - General well developed, well nourished, no distress - Respiratory normal respiratory effort - Abdomen Abdomen: soft, non tender, no masses - Psychiatric oriented to time, oriented to person, oriented to place, speech is normal, memory intact Results - Labs 03/04/23 06:12 03/05/23 08:27 Abnormal Lab Results - Last 24 Hours (Table) 03/04/23 03/04/23 03/04/23 Range/Units 12:13 17:26 22:05 POC Glucose (mg/dL) 239 H 227 H 175 H (70-110) mg/dL 03/05/23 Range/Units 06:07 POC Glucose (mg/dL) 160 H (70-110) mg/dL - Imaging CT scan - abdomen: report reviewed, image reviewed Assessment and Plan Assessment: It is my understanding that a Garcia catheter was placed because the patient was unable to void, but she states that she was not uncomfortable at this time. Reportedly, 1700 mL of urine was drained from the bladder upon catheter placement. This was suggest she has an atonic bladder, which can be caused by long-standing diabetes mellitus as well as a history of alcohol abuse. (1) Urinary retention Current Visit: Yes Status: Acute Code(s): R33.9 - RETENTION OF URINE, UNSPECIFIED SNOMED Code(s): 758236076 Plan: I explained to the patient that her recurrent UTIs are likely due to incomplete bladder emptying. She may require a long-term indwelling catheter, though I have suggested to her that she would be better served by performing intermittent self-catheterization 3-4 times daily. Per the nursing staff, they believe her would likely need to perform this, and the catheter will be removed later today and instructions given to him to perform intermittent catheterization. Time with Patient: Greater than 30
[2023-03-05 17:23] LABS: Glucose,Whole Blood 238 mg/dL (70-110)
[2023-03-05] MEDS ORDERED: SODIUM CHLORIDE TAB 1 GM TAB PO STA (19:07)
[2023-03-05 21:51] LABS: Glucose,Whole Blood 303 mg/dL (70-110)
[2023-03-05] MEDS: FLUTICASONE 50MCG/SPRAY NASAL 16GM EA NOSTRIL SCH (22:10)
[2023-03-06] MEDS: HYDROcodone/APAP 10-325MG 1 EACH TAB PO PRN ×2 (00:17→06:48)
[2023-03-06 05:42] VITALS: RESP 16
[2023-03-06 06:34] LABS: Glucose,Whole Blood 223 mg/dL (70-110)
[2023-03-06] MEDS: LEVOTHYROXINE 88 MCG TAB PO SCH (06:44)
[2023-03-06] MEDS: INSULIN ASPART (NovoLOG) 100 UNIT/ML VIAL SQ SCH (06:44)
[2023-03-06] MEDS: IPRATROPIUM-ALBUTEROL 3 ML NEB INHALATION SCH (08:19)
[2023-03-06] MEDS: SYMBICORT 160-4.5 MCG INHALER INHALATION SCH (08:19)
[2023-03-06 08:26] VITALS: BP 150/64; TEMP 98.1
[2023-03-06 08:32] VITALS: PULSE 90
[2023-03-06] MEDS: CHOLECALCIFEROL 125 MCG (5000 IU) TABLET PO SCH (09:00)
[2023-03-06] MEDS: cloNIDine HCL 0.2 MG TAB PO SCH (09:00)
[2023-03-06] MEDS: amLODIPine 10 MG TAB PO SCH (09:00)
[2023-03-06] MEDS: GABAPENTIN 100 MG CAP PO SCH (09:00)
[2023-03-06] MEDS: MULTIVITAMINS, THERA 1 EACH TAB PO SCH (09:00)
[2023-03-06] MEDS: LORATADINE 10 MG TAB PO SCH (09:00)
[2023-03-06] MEDS: ATORVASTATIN 40 MG TAB PO SCH (09:00)
[2023-03-06] MEDS: FAMOTIDINE 20 MG TAB PO SCH (09:00)
[2023-03-06] MEDS: METOPROLOL SUCCINATE (ER) 25 MG TAB.ER.24H PO SCH (09:00)
[2023-03-06] MEDS: OXYBUTYNIN 10 MG TAB.ER.24 PO SCH (09:01)
[2023-03-06] MEDS: hydrALAZINE HCL 50 MG TAB PO SCH (09:01)
[2023-03-06] MEDS: VITAMIN E (DL,TOCOPHERYL ACET) 400 UNIT (180 MG) CAP PO SCH (09:01)
--- NOTE | 2023-03-06 09:09 | P.DS ---
Providers Date of admission: 03/01/23 21:45 Attending physician: Yomi Kennedy Consults: 03/01/23 21:45 Consult Physician Routine Consulting Provider: Morenita Espinoza Consult Reason/Comments: Acute renal failure Do you want consulting provider notified?: Yes 03/04/23 10:23 Consult Physician Routine Consulting Provider: Bernard Miner Consult Reason/Comments: Urinary retention Do you want consulting provider notified?: Yes Primary care physician: Yomi Kennedy - Discharge Diagnosis(es) (1) THIERRY (acute kidney injury) Current Visit: Yes Status: Acute (2) Hyperkalemia Current Visit: Yes Status: Acute (3) At risk for readmission to hospital Current Visit: No Status: Acute (4) COPD (chronic obstructive pulmonary disease) Current Visit: No Status: Acute (5) History of below-knee amputation of right lower extremity Current Visit: No Status: Acute (6) Ischemic colitis Current Visit: No Status: Acute (7) Opioid dependence Current Visit: No Status: Acute (8) Type 2 diabetes mellitus Current Visit: No Status: Acute Hospital Course: This is a 67-year-old female who is admitted for hyperkalemia. She recently had a prolonged hospitalization for acute abdomen with ischemic bowel and sepsis. Labs have stabilized. Patient did develop some urinary retention during stay and has been evaluated by urology. Urology believes patient has atonic bladder caused by long-standing diabetes and her history of alcohol abuse. It is recommended she utilize intermittent catheterization for elimination 3-4 times a day. She is stable for discharge back to rehab. Patient seen and evaluated by nurse practitioner, physician in agreement with plan Patient Condition at Discharge: Serious Plan - Discharge Summary Discharge Rx Participant: Yes New Discharge Prescriptions: Continue Topiramate 50 mg PO BID Oxybutynin Chloride [oxyBUTYnin chloride ER] 10 mg PO DAILY Fluticasone Nasal [place] [Flonase Nasal [place]] 1 spr EA NOSTRIL HS Albuterol Inhaler [Ventolin Hfa Inhaler] 2 puff INHALATION RT-QID PRN PRN Reason: Shortness Of Breath Cholecalciferol (Vitamin D3) [Vitamin D3 (125 MCG = 5,000 IU)] 125 mcg PO ASHLEY LY Fluticasone Propion/Salmeterol [Advair 500-50 Diskus] 1 puff INHALATION RT- BID Multivitamins, Thera [Multivitamin (formulary)] 1 tab PO DAILY Mupirocin 2% Oint [Bactroban 2% Oint] 1 applic TOPICAL DAILY cloNIDine HCL [Catapres] 0.2 mg PO BID tab Ipratropium-Albuterol Nebulize [Duoneb 0.5 mg-3 mg/3 ml Soln] 3 ml INHALATION RT-QID each Gabapentin [Neurontin] 100 mg PO BID cap HYDROcodone/APAP 10-325MG [[place] 10-325] 1 tab PO Q6H PRN 30 Days #120 tab PRN Reason: Pain hydrALAZINE HCL [Apresoline] 100 mg PO TID Insulin Glargine,Hum.rec.anlog [Insulin Glargine] 42 units SQ BID LORazepam [Ativan] 1 mg PO DAILY PRN PRN Reason: Anxiety Methyl Salicylate/Menth/Camph [Salonpas 3.1%-6.0%-10.0% Patch] 1 patch TOPICAL DAILY Metoprolol Succinate (ER) [Toprol XL] 25 mg PO DAILY Levothyroxine Sodium 88 mcg PO DAILY Atorvastatin [Lipitor] 40 mg PO DAILY Triamcinolone 0.1% Cream [Kenalog 0.1% Cream] 1 applic TOPICAL BID PRN PRN Reason: Rash Vitamin E (Dl,Tocopheryl Acet) [Vitamin E (400 Iu = 180 mg)] 400 unit PO DAILY Aspirin 325 mg PO DAILY #30 tab Levocetirizine Dihydrochloride [Xyzal] 5 mg PO BID Famotidine [Pepcid] 20 mg PO BID amLODIPine [Norvasc] 10 mg PO DAILY tab Mirtazapine [Remeron] 15 mg PO HS tab Maxorb Extra 2 (Calcium Alginate-Carboxymethylcellulose Sodium) 1 applic TOPICAL HS Acetaminophen Tab [Tylenol] 650 mg PO Q4H PRN PRN Reason: Pain Or Fever > 100.5 Collagenase [Santyl Ointment] 1 applic TOPICAL HS FLUoxetine HCL [PROzac] 10 mg PO DIRECTED FLUoxetine HCL [PROzac] 20 mg PO DAILY Insulin Aspart [Insulin Aspart Flexpen] See Protocol SQ AC-TID LORazepam [Ativan] 1 mg PO HS Ondansetron [Zofran] 4 mg PO Q6H PRN PRN Reason: Nausea Simethicone [Gas-X] 125 - 250 mg PO TID PRN PRN Reason: gas Discharge Medication List Oxybutynin Chloride [oxyBUTYnin chloride ER] 10 mg PO DAILY 08/17/20 [History] Topiramate 50 mg PO BID 08/17/20 [History] Fluticasone Nasal [place] [Flonase Nasal [place]] 1 spr EA NOSTRIL HS 09/17/21 [History] Albuterol Inhaler [Ventolin Hfa Inhaler] 2 puff INHALATION RT-QID PRN 12/14/21 [History] Levothyroxine Sodium 88 mcg PO DAILY 12/14/21 [History] Atorvastatin [Lipitor] 40 mg PO DAILY 06/16/22 [History] Cholecalciferol (Vitamin D3) [Vitamin D3 (125 MCG = 5,000 IU)] 125 mcg PO DAILY 06/16/22 [History] Fluticasone Propion/Salmeterol [Advair 500-50 Diskus] 1 puff INHALATION RT-BID 06/16/22 [History] Multivitamins, Thera [Multivitamin (formulary)] 1 tab PO DAILY 06/16/22 [History] Triamcinolone 0.1% Cream [Kenalog 0.1% Cream] 1 applic TOPICAL BID PRN 06/16/22 [History] Vitamin E (Dl,Tocopheryl Acet) [Vitamin E (400 Iu = 180 mg)] 400 unit PO DAILY 06/16/22 [History] Aspirin 325 mg PO DAILY #30 tab 06/18/22 [Rx] Famotidine [Pepcid] 20 mg PO BID 01/19/23 [History] Levocetirizine Dihydrochloride [Xyzal] 5 mg PO BID 01/19/23 [History] Mupirocin 2% Oint [Bactroban 2% Oint] 1 applic TOPICAL DAILY 01/19/23 [History] Gabapentin [Neurontin] 100 mg PO BID cap 02/13/23 [Rx] HYDROcodone/APAP 10-325MG [[place] 10-325] 1 tab PO Q6H PRN 30 Days #120 tab 02/13/23 [Rx] Ipratropium-Albuterol Nebulize [Duoneb 0.5 mg-3 mg/3 ml Soln] 3 ml INHALATION RT-QID each 02/13/23 [Rx] Mirtazapine [Remeron] 15 mg PO HS tab 02/13/23 [Rx] amLODIPine [Norvasc] 10 mg PO DAILY tab 02/13/23 [Rx] cloNIDine HCL [Catapres] 0.2 mg PO BID tab 02/13/23 [Rx] Acetaminophen Tab [Tylenol] 650 mg PO Q4H PRN 03/01/23 [History] Collagenase [Santyl Ointment] 1 applic TOPICAL HS 03/01/23 [History] FLUoxetine HCL [PROzac] 10 mg PO DIRECTED 03/01/23 [History] FLUoxetine HCL [PROzac] 20 mg PO DAILY 03/01/23 [History] Insulin Aspart [Insulin Aspart Flexpen] See Protocol SQ AC-TID 03/01/23 [History] Insulin Glargine,Hum.rec.anlog [Insulin Glargine] 42 units SQ BID 03/01/23 [History] LORazepam [Ativan] 1 mg PO DAILY PRN 03/01/23 [History] LORazepam [Ativan] 1 mg PO HS 03/01/23 [History] Maxorb Extra 2 (Calcium Alginate-Carboxymethylcellulose Sodium) 1 applic TOPICAL HS 03/01/23 [History] Methyl Salicylate/Menth/Camph [Salonpas 3.1%-6.0%-10.0% Patch] 1 patch TOPICAL DAILY 03/01/23 [History] Metoprolol Succinate (ER) [Toprol XL] 25 mg PO DAILY 03/01/23 [History] Ondansetron [Zofran] 4 mg PO Q6H PRN 03/01/23 [History] Simethicone [Gas-X] 125 - 250 mg PO TID PRN 03/01/23 [History] hydrALAZINE HCL [Apresoline] 100 mg PO TID 03/01/23 [History] Follow up Appointment(s)/Referral(s): Yomi Kennedy MD [Primary Care Provider] - 1 Week Activity/Diet/Wound Care/Special Instructions: Intermittent self-catheterization 3-4 times daily Discharge Disposition: TRANSFER TO SNF/ECF
[2023-03-06 09:27] LABS: HCT 24.1 % (37.2-46.3); HGB 7.8 d/dL (12.0-15.0); MCH 28.3 pg (27.0-32.0); MCHC 32.4 d/dL (32.0-37.0); MCV 87.3 FL (80.0-97.0); Mean Platelet Volume 8.2 FL (9.5-12.2); NRBC Per 100 WBC 0 X 10*3/uL (0.00-0.01); Platelet Count 253 X 10*3/uL (140-440); RBC 2.76 X 10*6/uL (4.10-5.20); RDW 14.7 % (11.5-14.5); WBC 8.23 X 10*3/uL (4.50-10.00)
[2023-03-06 22:37] LABS: ALT 17 U/L (8-44); AST 13 U/L (13-35); Albumin 3.3 d/dL (3.8-4.9); Albumin/Globulin Ratio 1.18 Ratio (1.60-3.17); Alkaline Phosphatase 120 U/L (41-126); BUN/Creat Ratio 8.43 Ratio (12.00-20.00); Blood Urea Nitrogen 5.9 mg/dL (9.0-27.0); Calcium 8.9 mg/dL (8.7-10.3); Carbon Dioxide 24.6 mmol/L (21.6-31.8); Chloride 95 mmol/L (96-109); Globulin 2.8 d/dL (1.6-3.3); Glucose 204 mg/dL (70-110); Potassium 3.7 mmol/L (3.5-5.5); Sodium 131 mmol/L (135-145); Total Bilirubin <0.2 mg/dL (0.3-1.2); Total Protein 6.1 d/dL (6.2-8.2)
[2023-03-15] MEDS ORDERED: FLUoxetine HCL 10 MG CAP PO SCH (09:00)
== END 2023-03-06 11:30 | DRG 640 ==
LOC: EC 17:32 → 5NMEDONC 21:45 → 6NMEDSUR 03-02 02:27
PROVIDERS: ADMIT Family Medicine; ATTEND Family Medicine
DX: E87.5 Hyperkalemia (principal); N17.0 Acute kidney failure with tubular necrosis; F11.20 Opioid dependence, uncomplicated; K55.9 Vascular disorder of intestine, unspecified; E11.9 Type 2 diabetes mellitus without complications; J44.9 Chronic obstructive pulmonary disease, unspecified; E87.1 Hypo-osmolality and hyponatremia; E03.9 Hypothyroidism, unspecified; E87.20 Acidosis, unspecified; Z79.890 Hormone replacement therapy; E86.9 Volume depletion, unspecified; I95.9 Hypotension, unspecified; F32.A Depression, unspecified; I10 Essential (primary) hypertension; E86.1 Hypovolemia; F17.210 Nicotine dependence, cigarettes, uncomplicated; R33.9 Retention of urine, unspecified; E11.42 Type 2 diabetes mellitus with diabetic polyneuropathy; Z87.440 Personal history of urinary (tract) infections; Z87.19 Personal history of other diseases of the digestive system; Z79.82 Long term (current) use of aspirin; Z79.899 Other long term (current) drug therapy; Z86.74 Personal history of sudden cardiac arrest; Z87.442 Personal history of urinary calculi; Z89.511 Acquired absence of right leg below knee; Z90.710 Acquired absence of both cervix and uterus; Z79.4 Long term (current) use of insulin; Z82.49 Family history of ischemic heart disease and other diseases of the circulatory system; Z83.3 Family history of diabetes mellitus
CPT/HCPCS: 36415; 80048; 80053; 81001; 82570; 83036; 83930; 83935; 84133; 84295; 84300; 85025; 85027; 87070; 87075; 87205; 93005; 94640; 94760; 96361; 96374; 96375; 99291

== ENCOUNTER 2023-05-07 11:26 | Inpatient (IN) | payer MEDICARE, OTHER ==
[2023-05-07] MEDS ORDERED: MORPHINE SULFATE 4 MG/ML SYRINGE IVP STA (12:48)
[2023-05-07] MEDS ORDERED: KETOROLAC 15 MG/ML 1 ML VIAL IVP STA (12:48)
--- NOTE | 2023-05-07 12:52 | ED ---
Extremity Problem HPI - General Chief complaint: Extremity Problem,Nontraumatic Stated complaint: rt leg pain Time Seen by Provider: 05/07/23 12:05 Source: patient, family, RN notes reviewed Mode of arrival: wheelchair Limitations: no limitations - History of Present Illness Initial comments: This is a 68-year-old female who presents to the emergency department for pain to the right stump. States that this started 3 days ago. Denies any injuries. She has had pain to the stump before, but is unsure what causes it. She's been unable to sleep due to the pain and is also unable to wear her prosthetic leg. Denies any fevers or chills. She is taking Thompson and gabapentin at home with no relief in symptoms. Denies any fevers, chills, sore throat, cough, dyspnea, chest pain, palpitations, abdominal pain, nausea, vomiting, diarrhea, back pain, or headaches. MD Complaint: extremity pain Onset/Timin -: days(s) - Related Data Home Medications Medication Instructions Recorded Confirmed Oxybutynin Chloride [oxyBUTYnin 10 mg PO DAILY 08/17/20 05/07/23 chloride ER] Fluticasone Nasal [place] [Flonase 1 spr EA NOSTRIL HS 09/17/21 05/07/23 Nasal [place]] Albuterol Inhaler [Ventolin Hfa 2 puff INHALATION RT-QID PRN 12/14/21 05/07/23 Inhaler] Levothyroxine Sodium 88 mcg PO DAILY 12/14/21 05/07/23 Atorvastatin [Lipitor] 40 mg PO DAILY 06/16/22 05/07/23 Cholecalciferol (Vitamin D3) 125 mcg PO DAILY 06/16/22 05/07/23 [Vitamin D3 (125 MCG = 5,000 IU)] Fluticasone Propion/Salmeterol 1 puff INHALATION RT-BID 06/16/22 05/07/23 [Advair 500-50 Diskus] Triamcinolone 0.1% Cream [Kenalog 1 applic TOPICAL BID PRN 06/16/22 05/07/23 0.1% Cream] Famotidine [Pepcid] 20 mg PO BID 01/19/23 05/07/23 Levocetirizine Dihydrochloride 5 mg PO BID 01/19/23 05/07/23 [Xyzal] FLUoxetine HCL 40 mg PO DAILY 03/31/23 05/07/23 Gabapentin 800 mg PO TID 03/31/23 05/07/23 Ibuprofen [Motrin] 600 mg PO Q8HR PRN 03/31/23 05/07/23 Insulin Glargine,Hum.rec.anlog 55 units SQ BID 03/31/23 05/07/23 [Lantus Solostar Pen] LORazepam [Ativan] 1 mg PO Q6H PRN 03/31/23 05/07/23 QUEtiapine [SEROquel] 200 mg PO HS 03/31/23 05/07/23 metFORMIN HCL 1,000 mg PO BID 03/31/23 05/07/23 Montelukast [Singulair] 10 mg PO HS 05/07/23 05/07/23 Primidone [Mysoline] 25 mg PO BID 05/07/23 05/07/23 Previous Rx's Medication Instructions Recorded Aspirin 325 mg PO DAILY #30 tab 06/18/22 HYDROcodone/APAP 10-325MG [[place] 1 tab PO Q6H PRN 3 Days #12 tab 03/06/23 10-325] Allergies Allergy/AdvReac Type Severity Reaction Status Date / Time No Known Allergies Allergy Verified 05/07/23 14:48 Review of Systems ROS Statement: Those systems with pertinent positive or pertinent negative responses have been documented in the HPI. ROS Other: All systems not noted in ROS Statement are negative. 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, ostomy Past Anesthesia/Blood Transfusion Reactions: No Reported Reaction Past Psychological History: Depression Smoking Status: Current every day smoker Past Alcohol Use History: None Reported Past Drug Use History: None Reported - Past Family History Father Family Medical History: Coronary Artery Disease (CAD) Mother Family Medical History: Diabetes Mellitus General Exam Limitations: no limitations General appearance: alert, in no apparent distress Head exam: Present: atraumatic, normocephalic, normal inspection Respiratory exam: Present: normal lung sounds bilaterally. Absent: respiratory distress, wheezes, rales, rhonchi, stridor Cardiovascular Exam: Present: regular rate, normal rhythm, normal heart sounds. Absent: systolic murmur, diastolic murmur, rubs, gallop, clicks Extremities exam: Present: other (Minor erythema and tenderness to the bottom of the right stump.) Neurological exam: Present: alert, oriented X3, CN II-XII intact Psychiatric exam: Present: normal affect, normal mood Course Vital Signs 05/07/23 05/07/23 05/07/23 11:53 13:45 18:42 Temperature 98.6 F Pulse Rate 82 73 71 Respiratory 20 16 16 Rate Blood Pressure 181/85 199/79 183/75 O2 Sat by Pulse 910 H 100 100 Oximetry Medical Decision Making - Medical Decision Making This is a 68-year-old female who presents to the emergency department for right leg pain. Was pt. sent in by a medical professional or institution? @ -No Did you speak to anyone other than the patient for history? @ -No Did you review nursing and triage notes? @ -Yes, and I agree, it is accurate with regards to the patient's symptoms. Were old charts reviewed? @ -No Differential Diagnosis? @ -Differential Leg Pain: Leg fracture, leg sprain, DVT, PVD, arterial insufficiency, iliac artery aneurysm, cellulitis, compartment syndrome, tendinopathy, nerve entrapment, piriformis syndrome, osteoarthritis, rhabdomyolysis, myositis, cramping from an electrolyte imbalance, this is not meant to be an all inclusive list. EKG interpreted by me (3pts min.)? @ -Not obtained X-rays interpreted by me (1pt min.)? @ -X-ray of the right tib-fib obtained. My interpretation identifies no acute fractures. CT interpreted by me (1pt min.)? @ -CT scan of the right lower extremity obtained. My interpretation identifies no acute fractures. U/S interpreted by me (1pt. min.)? @ -Duplex US of the right lower extremity obtained. My interpretation identifies no evidence of a DVT. What testing was considered but not performed? (CT, X-rays, U/S, labs)? Why? @ -None What meds were considered but not given? Why? @ -None Did you discuss the management of the patient with other professionals? @ -Yes, Dr. Neal, who accepts the patient for admission. Did you reconcile home meds? @ -Yes Was smoking cessation discussed for >3mins.? @ -No Was critical care preformed (if so, how long)? @ -No Were there social determinants of health that impacted care today? How? (Homelessness, low income, unemployed, alcoholism, drug addiction, transportation, low edu. Level, literacy, decrease access to med. care, [facility], rehab)? @ -No Was there de-escalation of care discussed even if they declined? (Discuss DNR or withdrawal of care, Hospice)? @ -No What co-morbidities impacted this encounter? (DM, HTN, Smoking, COPD, CAD, Cancer, CVA, Hep., AIDS, mental health diagnosis, sleep apnea, morbid obesity)? @ -DM, HTN Was patient admitted / discharged? @ -Admitted. Lab work obtained revealing leukocytosis and a mildly elevated C RP. X-ray of the right tib-fib reveals a new lucency along the medial femoral condyle, and osteomyelitis cannot be excluded. However, the patient's pain is at the base of the stump and not along the medial femoral condyle. She was initially given Toradol and morphine, however she continued to be in severe pain. Physical examination is not entirely impressive, however her blood work is concerning for a developing infection. Given the severity of the patient's pain, she did not feel comfortable managing this on an outpatient basis. She was subsequently admitted to medicine for further management. Blood cultures were ordered and she was started on vancomycin and ceftriaxone. Duplex ultr asound of the right lower extremity and a computed tomography scan of right lower extremity were ordered per the admitting team's request. Results pending at the time of admission. Consult placed for infectious disease as well per admitting team's request. Undiagnosed new problem with uncertain prognosis? @ -None Drug Therapy requiring intensive monitoring for toxicity (Heparin, Nitro, Insulin, Cardizem)? @ -None Were any procedures done? @ -None Diagnosis/symptom? @ -Right lower extremity cellulitis Acute, or Chronic, or Acute on Chronic? @ -Acute Uncomplicated (without systemic symptoms) or Complicated (systemic symptoms)? @ -Uncomplicated Side effects of treatment? @ -None Exacerbation, Progression, or Severe Exacerbation] @ -Not applicable Poses a threat to life or bodily function? @ -Yes This case was discussed in detail with the attending ED physician, Dr. Clifford. Presentation, findings, and treatment plan discussed in detail as well. - Lab Data Result diagrams: 05/07/23 13:06 05/07/23 13:06 Lab Results 05/07/23 05/07/23 05/07/23 Range/Units 13:06 13:06 13:06 WBC 15.0 H (3.8-10.6) k/uL RBC 4.69 (3.80-5.40) m/uL Hgb 13.0 D (11.4-16.0) gm/dL Hct 38.8 (34.0-46.0) % MCV 82.6 (80.0-100.0) fL MCH 27.7 (25.0-35.0) pg MCHC 33.6 (31.0-37.0) g/dL RDW 15.2 (11.5-15.5) % Plt Count 251 (150-450) k/uL MPV 7.2 Neutrophils % 82 % Lymphocytes % 12 % Monocytes % 3 % Eosinophils % 1 % Basophils % 0 % Neutrophils # 12.3 H (1.3-7.7) k/uL Lymphocytes # 1.8 (1.0-4.8) k/uL Monocytes # 0.5 (0-1.0) k/uL Eosinophils # 0.2 (0-0.7) k/uL Basophils # 0.0 (0-0.2) k/uL Sodium 135 L (137-145) mmol/L Potassium 4.4 (3.5-5.1) mmol/L Chloride 97 L (98-107) mmol/L Carbon Dioxide 25 (22-30) mmol/L Anion Gap 13 mmol/L BUN 11 (7-17) mg/dL Creatinine 0.55 (0.52-1.04) mg/dL Est GFR (CKD-EPI)AfAm >90 (>60 ml/min/1.73 sqM) Est GFR (CKD-EPI)NonAf >90 (>60 ml/min/1.73 sqM) Glucose 267 H (74-99) mg/dL Plasma Lactic Acid Kashif 1.2 (0.7-2.0) mmol/L Calcium 10.0 (8.4-10.2) mg/dL Total Bilirubin 0.4 (0.2-1.3) mg/dL AST 21 (14-36) U/L ALT 19 (4-34) U/L Alkaline Phosphatase 106 (38-126) U/L C-Reactive Protein 1.6 H (<1.0) mg/dL Total Protein 9.2 H (6.3-8.2) g/dL Albumin 4.8 (3.5-5.0) g/dL - Radiology Data Radiology results: report reviewed, image reviewed Disposition Clinical Impression: Cellulitis of right leg Disposition: ADMITTED IP TO THIS HOSP
--- NOTE | 2023-05-07 13:41 | XR ---
EXAMINATION TYPE: XR tibia fibula RT DATE OF EXAM: 05/07/2023 COMPARISON: 09/14/2021 HISTORY: Pain TECHNIQUE: Two views are submitted. FINDINGS: The osseous structures are intact. Diffuse osteopenia with vascular calcifications. Severe arthropath y of the medial compartment knee joint. Chondrocalcinosis. No definitive destructive changes. There d oes appear to be a new lucency along the medial femoral condyle on the anterior view relative to prio r exam. IMPRESSION: 1. No acute fracture. There is a new lucency involving the medial femoral condyle. Recommend triple p hase bone scan if concern for osteomyelitis. 2. Severe osteoarthritis.
[2023-05-07 13:53] LABS: ALT 19 U/L (4-34); AST 21 U/L (14-36); African American GFR (CKD) >90 (>60 ml/min/1.73 sqM); Albumin 4.8 g/dL (3.5-5.0); Alkaline Phosphatase 106 U/L (38-126); Anion Gap 13 mmol/L; Blood Urea Nitrogen 11 mg/dL (7-17); C Reactive Protein 1.6 mg/dL (<1.0); Carbon Dioxide 25 mmol/L (22-30); Chloride 97 mmol/L (98-107); Glucose 267 mg/dL (74-99); Non-African American GFR(CKD) >90 (>60 ml/min/1.73 sqM); Potassium 4.4 mmol/L (3.5-5.1); Sodium 135 mmol/L (137-145); Total Bilirubin 0.4 mg/dL (0.2-1.3); Total Protein 9.2 g/dL (6.3-8.2)
[2023-05-07 14:36] LABS: Basophils % (A) 0 %; Eosinophils # (A) 0.2 k/uL (0-0.7); Eosinophils % (A) 1 %; HCT 38.8 % (34.0-46.0); Lymphocytes # (A) 1.8 k/uL (1.0-4.8); Lymphocytes % (A) 12 %; MCH 27.7 pg (25.0-35.0); MCHC 33.6 g/dL (31.0-37.0); MCV 82.6 fL (80.0-100.0); Mean Platelet Volume 7.2; Monocytes # (A) 0.5 k/uL (0-1.0); Monocytes % (A) 3 %; Neutrophils # (A) 12.3 k/uL (1.3-7.7); Neutrophils % (A) 82 %; Platelet Count 251 k/uL (150-450); RBC 4.69 m/uL (3.80-5.40); RDW 15.2 % (11.5-15.5)
[2023-05-07] MEDS ORDERED: HYDROmorphone 1 MG/ML 1 ML SYRINGE IVP STA (14:58)
[2023-05-07] MEDS ORDERED: VANCOMYCIN IV PER PHARMACY 1 EACH MISC MISCELLANE PRN (14:59)
[2023-05-07] MEDS ORDERED: cefTRIAXone IN SWFI 1,000 MG/10 ML SYRINGE IVP STA (14:59)
[2023-05-07] MEDS ORDERED: ONDANSETRON 4 MG/2 ML VIAL IVP PRN (15:04)
[2023-05-07] MEDS ORDERED: NALOXONE 0.4 MG/ML 1 ML VIAL IV PRN (15:04)
[2023-05-07] MEDS ORDERED: KETOROLAC 15 MG/ML 1 ML VIAL IVP PRN (15:04)
[2023-05-07] MEDS ORDERED: HYDROmorphone 0.5 MG/0.5 ML SYRINGE IVP PRN (15:04)
[2023-05-07] MEDS ORDERED: HYDROmorphone 1 MG/ML 1 ML SYRINGE IVP PRN (15:04)
[2023-05-07] MEDS ORDERED: ACETAMINOPHEN TAB 325 MG TAB PO PRN (15:04)
[2023-05-07] MEDS ORDERED: VANCOMYCIN 1,500 MG in SODIUM CHLORIDE 0.9% 500 ML 500 ML IVPB STA (15:08)
[2023-05-07] MEDS ORDERED: LORazepam 1 MG TAB PO PRN (15:17)
[2023-05-07] MEDS ORDERED: ALBUTEROL NEBULIZED 2.5 MG/3 ML INHALATION PRN (15:17)
[2023-05-07] MEDS ORDERED: DEXTROSE 50% SYRINGE 50 ML IVP PRN ×2 (15:35)
[2023-05-07] MEDS: GABAPENTIN 400 MG CAP PO SCH ×2 (16:14→21:44)
--- NOTE | 2023-05-07 16:20 | US ---
EXAMINATION TYPE: US venous doppler duplex LE RT DATE OF EXAM: 05/07/2023 4:15 PM COMPARISON: NONE CLINICAL INDICATION: Female, 68 years old with history of Right leg pain; SIDE PERFORMED: Right TECHNIQUE: The lower extremity deep venous system is examined utilizing real time linear array sonog jude with graded compression, doppler sonography and color-flow sonography. VESSELS IMAGED: Common Femoral Vein Deep Femoral Vein Greater Saphenous Vein * Femoral Vein Popliteal Vein Small Saphenous Vein * Proximal Calf Veins (* superficial vessels) Right Leg: Negative for DVT IMPRESSION: No evidence for DVT within the right lower extremity imaged from the groin to the upper calf.
--- NOTE | 2023-05-07 17:40 | CT ---
EXAMINATION TYPE: CT lower extremity RT w con CT DLP: 966.3 mGycm, Automated exposure control for dose reduction was used. DATE OF EXAM: 05/07/2023 4:17 PM COMPARISON: . Extremity radiograph same day. CLINICAL INDICATION:Female, 68 years old with history of Right leg pain, leukocytosis; PHH, RT leg pa in. Abrasion to stump. Pt denies injury or fall. Leukocytosis. TECHNIQUE: Axial images were obtained of the right leg . Additional coronal and sagittal reformatted images and soft tissue and bone window were obtained for review. 3-D reconstruction was created on a separate workstation. Contrast used:100 ml mL of Isovue 300 with IV Contrast, Oral contrast used: None FINDINGS: Fixation changes to the lower lumbar spine. Hardware appears intact. Post surgical changes anterior a bdominal wall with ostomy noted in the right lower quadrant. Mild osteoporosis changes with osteophyt e formation of the right hip. Mild osteoporosis changes of the right knee with osteophyte formation and joint space narrowing. No e vidence of fracture. There is moderate to severe atherosclerotic disease throughout the arterial vasculature. There is fat ty atrophy changes of the majority of the muscles within the leg. Below the knee amputation changes a re present. Fibula amputation site appears intact no loss of cortex on the fibula. There is area of c ortical loss at the amputation site. No organizing fluid collections identified. IMPRESSION: 1. Cortical loss at the amputation site of the right tibia correlate for osteitis consider MRI. 2. No organizing fluid collection. 3. Severe atherosclerosis of the arterial vasculature. 4. Moderate to severe right knee osteoarthrosis. 5. Mild right hip osteoporosis.
[2023-05-07 17:47] LABS: Glucose,Whole Blood 291 mg/dL (70-110)
[2023-05-07] MEDS: metFORMIN 500 MG TAB PO SCH (17:52)
[2023-05-07] MEDS: INSULIN ASPART (NovoLOG) 100 UNIT/ML VIAL SQ SCH ×2 (17:52→21:44)
--- NOTE | 2023-05-07 19:16 | P.HPIM ---
History of Present Illness H&P Date: 05/07/23 Chief Complaint: Stump Pain * 68 yo with pmh DM, Ischemic Colitis, BKA presents with pain at the site of Stump * She denies any Trauma,Fever, chills,chest pain, Pain behind thigh. * Work up in ER inculded CBC and BMP, Elevated WBC count noted * Patient given IV Rocephin and Vancomcyin * CT LoweR Extremity and Venous US requested * X ray Right femure reviewed, luceny noted * Admitted with ID consult and Further managment Review of Systems All systems: negative Constitutional: Denies chills, Denies fever Cardiovascular: Denies chest pain, Denies shortness of breath Respiratory: Denies cough Gastrointestinal: Denies abdominal pain, Denies diarrhea, Denies nausea, Denies vomiting Musculoskeletal: Reports limitation of motion, Reports myalgias, Reports prior amputations Integumentary: Denies pruritus, Denies rash Endocrine: Denies fatigue, Denies weight change 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, ostomy Past Anesthesia/Blood Transfusion Reactions: No Reported Reaction Past Psychological History: Depression Smoking Status: Current every day smoker Past Alcohol Use History: None Reported Past Drug Use History: None Reported - Past Family History Father Family Medical History: Coronary Artery Disease (CAD) Mother Family Medical History: Diabetes Mellitus Medications and Allergies Home Medications Medication Instructions Recorded Confirmed Type Oxybutynin Chloride [oxyBUTYnin 10 mg PO DAILY 08/17/20 05/07/23 History chloride ER] Fluticasone Nasal [place] [Flonase 1 spr EA NOSTRIL HS 09/17/21 05/07/23 History Nasal [place]] Albuterol Inhaler [Ventolin Hfa 2 puff INHALATION RT-QID PRN 12/14/21 05/07/23 History Inhaler] Levothyroxine Sodium 88 mcg PO DAILY 12/14/21 05/07/23 History Atorvastatin [Lipitor] 40 mg PO DAILY 06/16/22 05/07/23 History Cholecalciferol (Vitamin D3) 125 mcg PO DAILY 06/16/22 05/07/23 History [Vitamin D3 (125 MCG = 5,000 IU)] Fluticasone Propion/Salmeterol 1 puff INHALATION RT-BID 06/16/22 05/07/23 History [Advair 500-50 Diskus] Triamcinolone 0.1% Cream [Kenalog 1 applic TOPICAL BID PRN 06/16/22 05/07/23 History 0.1% Cream] Aspirin 325 mg PO DAILY #30 tab 06/18/22 05/07/23 Rx Famotidine [Pepcid] 20 mg PO BID 01/19/23 05/07/23 History Levocetirizine Dihydrochloride 5 mg PO BID 01/19/23 05/07/23 History [Xyzal] HYDROcodone/APAP 10-325MG [[place] 1 tab PO Q6H PRN 3 Days #12 tab 03/06/23 05/07/23 Rx 10-325] FLUoxetine HCL 40 mg PO DAILY 03/31/23 05/07/23 History Gabapentin 800 mg PO TID 03/31/23 05/07/23 History Ibuprofen [Motrin] 600 mg PO Q8HR PRN 03/31/23 05/07/23 History Insulin Glargine,Hum.rec.anlog 55 units SQ BID 03/31/23 05/07/23 History [Lantus Solostar Pen] LORazepam [Ativan] 1 mg PO Q6H PRN 03/31/23 05/07/23 History QUEtiapine [SEROquel] 200 mg PO HS 03/31/23 05/07/23 History metFORMIN HCL 1,000 mg PO BID 03/31/23 05/07/23 History Montelukast [Singulair] 10 mg PO HS 05/07/23 05/07/23 History Primidone [Mysoline] 25 mg PO BID 05/07/23 05/07/23 History Allergies Allergy/AdvReac Type Severity Reaction Status Date / Time No Known Allergies Allergy Verified 05/07/23 14:48 Physical Exam Vitals: Vital Signs Temp Pulse Resp BP Pulse Ox 05/07/23 18:42 71 16 183/75 100 05/07/23 13:45 73 16 199/79 100 05/07/23 11:53 98.6 F 82 20 181/85 910 H Intake and Output 05/07/23 05/07/23 05/07/23 06:59 14:59 22:59 Other: Weight 81.647 kg - Constitutional General appearance: no acute distress - EENT Eyes: EOMI - Respiratory Clear to ausc b/l - Cardiovascular Rhythm: regular Heart sounds: normal: S1, S2 - Gastrointestinal Ostmoy in place General gastrointestinal: no organomegaly, soft, no tenderness - Musculoskeletal AMputation noted, No Skin break down Results CBC & Chem 7: 05/07/23 13:06 05/07/23 13:06 Labs: Abnormal Lab Results - Last 24 Hours (Table) 05/07/23 05/07/23 05/07/23 Range/Units 13:06 13:06 17:46 WBC 15.0 H (3.8-10.6) k/uL Neutrophils # 12.3 H (1.3-7.7) k/uL Sodium 135 L (137-145) mmol/L Chloride 97 L (98-107) mmol/L Glucose 267 H (74-99) mg/dL POC Glucose (mg/dL) 291 H (70-110) mg/dL C-Reactive Protein 1.6 H (<1.0) mg/dL Total Protein 9.2 H (6.3-8.2) g/dL Assessment and Plan Assessment: Assesment and Plan * Pain and Erththema of Stump Rule out Osteomyelilitis vs Cellulitis * Diabetes Mellitus * Hypertension * Copd * s/p Ostomy in place * Consult Obtained from ID * CT and Vneous US ordered * COntinue Rocephin and Vancomcyin * Home meds reviewed and reconsciled * COde status Full Code
[2023-05-07] MEDS: SYMBICORT 160-4.5 MCG INHALER INHALATION SCH (20:31)
[2023-05-07 21:21] LABS: Glucose,Whole Blood 232 mg/dL (70-110)
[2023-05-07] MEDS: FLUTICASONE 50MCG/SPRAY NASAL 16GM EA NOSTRIL SCH (21:44)
[2023-05-07] MEDS: MONTELUKAST 10 MG TAB PO SCH (21:44)
[2023-05-07] MEDS: INSULIN DETEMIR (LEVEMIR) 100 UNIT/ML SYR SQ SCH (21:44)
[2023-05-07] MEDS: FAMOTIDINE 20 MG TAB PO SCH (21:44)
[2023-05-07] MEDS: QUEtiapine 200 MG TAB PO SCH (21:44)
[2023-05-07] MEDS: PRIMIDONE 25 MG TAB PO SCH (21:44)
--- NOTE | 2023-05-07 21:46 | P.CONS ---
History of Present Illness - Reason for Consult Consult date: 05/07/23 Right lower extremity cellulitis Requesting physician: Angelika Vasquez - Chief Complaint Right BK stump pain x few days - History of Present Illness Patient is a 68-year-old female with a past medical history significant for COPD diabetes mellitus hypertension and did have a history of right below the knee amputation current everyday smoker presented [facility] the [facility] for evaluation of pain to the right BKA stump symptom has been going on for about 3 days before presentation to the hospital. Denies any history of any trauma patient did have slight irritation and swelling and redness and is currently the pain to be sharp 5-6 or 10 no radiation denies any drainage from the area patient on presentation to the hospital was afebrile and no fever has been guarded subsequently patient was not tachycardic hypoxic or hypotensive patient did have white count of 15,000 with a left shift creatinine was normal CRP is mildly elevated patient did have a x-ray of the tibia-fibula no acute fracture new lucency involving the medial femoral condyle recommend treatment for his bone scan venous Doppler was negative for any DVT patient did have a CT cortical loss at amputation site of the right tibia correlate for osteitis consider MRI no organizing fluid collection patient has been started on ceftriaxone and vancomycin infectious disease was consulted for further management of antibiotic therapy Review of Systems Positive point and negatives has been mentioned in the HPI, complete review of systems was performed and all other systems are negative 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, ostomy Past Anesthesia/Blood Transfusion Reactions: No Reported Reaction Past Psychological History: Depression Smoking Status: Current every day smoker Past Alcohol Use History: None Reported Past Drug Use History: None Reported - Past Family History Father Family Medical History: Coronary Artery Disease (CAD) Mother Family Medical History: Diabetes Mellitus Medications and Allergies Home Medications Medication Instructions Recorded Confirmed Type Oxybutynin Chloride [oxyBUTYnin 10 mg PO DAILY 08/17/20 05/17/23 History chloride ER] Fluticasone Nasal [place] [Flonase 1 spr EA NOSTRIL HS 09/17/21 05/17/23 History Nasal [place]] Albuterol Inhaler [Ventolin Hfa 2 puff INHALATION RT-QID PRN 12/14/21 05/17/23 History Inhaler] Levothyroxine Sodium 88 mcg PO DAILY 12/14/21 05/17/23 History Atorvastatin [Lipitor] 40 mg PO DAILY 06/16/22 05/17/23 History Cholecalciferol (Vitamin D3) 125 mcg PO DAILY 06/16/22 05/17/23 History [Vitamin D3 (125 MCG = 5,000 IU)] Fluticasone Propion/Salmeterol 1 puff INHALATION RT-BID 06/16/22 05/17/23 History [Advair 500-50 Diskus] Triamcinolone 0.1% Cream [Kenalog 1 applic TOPICAL BID PRN 06/16/22 05/17/23 History 0.1% Cream] Aspirin 325 mg PO DAILY #30 tab 06/18/22 05/17/23 Rx Famotidine [Pepcid] 20 mg PO BID 01/19/23 05/17/23 History Levocetirizine Dihydrochloride 5 mg PO BID 01/19/23 05/17/23 History [Xyzal] HYDROcodone/APAP 10-325MG [[place] 1 tab PO Q6H PRN 3 Days #12 tab 03/06/23 05/17/23 Rx 10-325] FLUoxetine HCL 40 mg PO DAILY 03/31/23 05/17/23 History Gabapentin 800 mg PO TID 03/31/23 05/17/23 History Ibuprofen [Motrin] 600 mg PO Q8HR PRN 03/31/23 05/17/23 History Insulin Glargine,Hum.rec.anlog 55 units SQ BID 03/31/23 05/17/23 History [Lantus Solostar Pen] LORazepam [Ativan] 1 mg PO Q6H PRN 03/31/23 05/17/23 History QUEtiapine [SEROquel] 200 mg PO HS 03/31/23 05/17/23 History metFORMIN HCL 1,000 mg PO BID 03/31/23 05/17/23 History Montelukast [Singulair] 10 mg PO HS 05/07/23 05/17/23 History Primidone [Mysoline] 25 mg PO BID 05/07/23 05/17/23 History Doxycycline Hyclate 100 mg PO BID 10 Days #20 tab 05/10/23 05/17/23 Rx Allergies Allergy/AdvReac Type Severity Reaction Status Date / Time No Known Allergies Allergy Verified 05/17/23 07:24 Physical Exam Vitals: Vital Signs Temp Pulse Resp BP Pulse Ox 05/07/23 13:45 73 16 199/79 100 05/07/23 11:53 98.6 F 82 20 181/85 910 H Intake and Output 05/07/23 05/07/23 05/07/23 06:59 14:59 22:59 Other: Weight 81.647 kg GENERAL DESCRIPTION: An elderly female lying in bed, no distress. No tachypnea or accessory muscle of respiration use. HEENT: Shows Pallor , no scleral icterus. Oral mucous membrane is dry. No pharyngeal erythema or thrush NECK: Trachea central, no thyromegaly. LUNGS: Unlabored breathing. Clear to auscultation anteriorly. No wheeze or crackle. HEART: S1, S2, regular rate and rhythm. No loud murmur ABDOMEN: Soft, no tenderness , guarding or rigidity, no organomegaly EXTREMITIES: Right BK stump with minimal area of radiation which is tender to touch no wound or drainage. SKIN: No rash, no masses palpable. NEUROLOGICAL: The patient is awake, alert, oriented x3, mood and affect normal. Results CBC & Chem 7: 05/09/23 04:53 05/10/23 05:02 Labs: Abnormal Lab Results - Last 24 Hours (Table) 05/07/23 05/07/23 Range/Units 13:06 13:06 WBC 15.0 H (3.8-10.6) k/uL Neutrophils # 12.3 H (1.3-7.7) k/uL Sodium 135 L (137-145) mmol/L Chloride 97 L (98-107) mmol/L Glucose 267 H (74-99) mg/dL C-Reactive Protein 1.6 H (<1.0) mg/dL Total Protein 9.2 H (6.3-8.2) g/dL Assessment and Plan (1) Cellulitis of right leg Status: Acute Code(s): L03.115 - CELLULITIS OF RIGHT LOWER LIMB SNOMED Code(s): 071311267 (2) Osteitis Status: Acute Code(s): M86.9 - OSTEOMYELITIS, UNSPECIFIED SNOMED Code(s): 896600224 Plan: 1patient with history of COPD diabetes current every smoker did have a history of right below the knee amputation now present to the hospital with pain to the right BKA stump patient did have some swelling and dusky appearance to the right BKA stump and tender to touch but no significant fluctuation or drainage was noticed patient did have elevated white count and abnormal CT concerning for possible ostitis 2-patient benefit from vascular surgery evaluation for possible debridement and deep culture to confirm the diagnosis of arthritis 3-check inflammatory markers 4-continue with the vancomycin and Rocephin empirically while awaiting further work-up to be completed We will follow on clinical condition and cultures to further adjust medication if needed Thank you for this consultation we will follow the patient along with you Dictation was produced using [employer] dictation software. please excuse any grammatical, word or spelling errors. Time with Patient: Greater than 30
[2023-05-08] MEDS ORDERED: VANCOMYCIN 1,500 MG in SODIUM CHLORIDE 0.9% 500 ML 500 ML IVPB SCH (05:00)
[2023-05-08] MEDS: LEVOTHYROXINE 88 MCG TAB PO SCH (05:30)
[2023-05-08 06:38] LABS: Glucose,Whole Blood 113 mg/dL (70-110)
[2023-05-08] MEDS: INSULIN ASPART (NovoLOG) 100 UNIT/ML VIAL SQ SCH ×4 (06:39→21:37)
[2023-05-08] MEDS: metFORMIN 500 MG TAB PO SCH ×2 (06:43→19:04)
[2023-05-08] MEDS: INSULIN DETEMIR (LEVEMIR) 100 UNIT/ML SYR SQ SCH ×2 (08:02→21:37)
[2023-05-08] MEDS: ASPIRIN 325 MG TAB PO SCH (08:54)
[2023-05-08] MEDS: FAMOTIDINE 20 MG TAB PO SCH ×2 (08:54→20:32)
[2023-05-08] MEDS: CHOLECALCIFEROL 125 MCG (5000 IU) TABLET PO SCH (08:54)
[2023-05-08 08:55] LABS: Basophils # (A) 0.05 X 10*3/uL (0.00-0.10); Basophils % (A) 0.4 %; Eosinophils # (A) 0.57 X 10*3/uL (0.04-0.35); Eosinophils % (A) 4.6 %; HCT 33.1 % (37.2-46.3); HGB 10.7 d/dL (12.0-15.0); Lymphocytes % (A) 19.3 %; MCH 27.2 pg (27.0-32.0); MCHC 32.3 d/dL (32.0-37.0); MCV 84.2 FL (80.0-97.0); Mean Platelet Volume 8.9 FL (9.5-12.2); Monocytes # (A) 0.85 X 10*3/uL (0.20-1.00); Monocytes % (A) 6.8 %; NRBC Per 100 WBC 0 X 10*3/uL (0.00-0.01); Neutrophils # (A) 8.47 X 10*3/uL (1.80-7.70); Neutrophils % (A) 68.3 %; Platelet Count 172 X 10*3/uL (140-440); RBC 3.93 X 10*6/uL (4.10-5.20); RDW 14.7 % (11.5-14.5); WBC 12.41 X 10*3/uL (4.50-10.00)
[2023-05-08] MEDS: OXYBUTYNIN 10 MG TAB.ER.24 PO SCH (08:55)
[2023-05-08] MEDS: SYMBICORT 160-4.5 MCG INHALER INHALATION SCH ×2 (08:55→20:00)
[2023-05-08] MEDS: LORATADINE 10 MG TAB PO SCH (08:55)
[2023-05-08] MEDS: GABAPENTIN 400 MG CAP PO SCH ×3 (08:55→20:32)
[2023-05-08] MEDS: ATORVASTATIN 40 MG TAB PO SCH (08:55)
[2023-05-08] MEDS: FLUoxetine HCL 20 MG CAP PO SCH (08:55)
[2023-05-08] MEDS: PRIMIDONE 25 MG TAB PO SCH ×2 (08:55→20:32)
[2023-05-08 09:10] LABS: BUN/Creat Ratio 12.42 Ratio (12.00-20.00); Blood Urea Nitrogen 14.9 mg/dL (9.0-27.0); Glucose 114 mg/dL (70-110)
[2023-05-08 09:11] LABS: ALT 15 U/L (8-44); AST 12 U/L (13-35); Albumin 4.1 d/dL (3.8-4.9); Albumin/Globulin Ratio 1.37 Ratio (1.60-3.17); Alkaline Phosphatase 85 U/L (41-126); Calcium 9.2 mg/dL (8.7-10.3); Carbon Dioxide 23.7 mmol/L (21.6-31.8); Chloride 100 mmol/L (96-109); Potassium 4.3 mmol/L (3.5-5.5); Sodium 137 mmol/L (135-145); Total Bilirubin <0.2 mg/dL (0.3-1.2); Total Protein 7.1 d/dL (6.2-8.2)
--- NOTE | 2023-05-08 09:18 | P.PN ---
Subjective Progress Note Date: 05/08/23 Principal diagnosis: Stump pain This is a 68-year-old female who presented to the emergency room for evaluation of right below the knee amputation stump pain patient reports pain has been present for the last 3 days, she denies any trauma but does report slight irritation and swelling and redness. Patient has a significant past medical history of diabetes, ischemic colitis, COPD, and hypertension. Patient reports she has had current prosthetic since fall of 2015. White count was elevated on admission, has trended down today. Patient is maintained on ceftriaxone and vancomycin, and infectious disease has been following. Objective - Vital Signs Vital signs: Vital Signs Temp 98.7 F 05/08/23 02:20 Pulse 65 05/08/23 02:20 Resp 14 05/08/23 02:20 BP 137/73 05/08/23 02:20 Pulse Ox 100 05/08/23 02:20 FiO2 Intake & Output 05/07/23 05/08/23 05/08/23 18:59 06:59 18:59 Output Total 100 Balance -100 Weight 81.647 kg 81.647 kg Output: Stool 100 Other: Voiding Method Toilet # Voids 1 - Constitutional General appearance: Present: cooperative, no acute distress - EENT Eyes: Present: PERRLA - Neck Neck: Present: normal ROM. Absent: lymphadenopathy, rigidity - Respiratory Respiratory: bilateral: CTA - Cardiovascular Rhythm: regular Heart sounds: normal: S1, S2 - Gastrointestinal General gastrointestinal: Present: soft. Absent: tenderness - Integumentary Integumentary Comment(s): No skin breakdown noted on right stump - Musculoskeletal Musculoskeletal Comment(s): Right below the knee amputation Musculoskeletal: Present: generalized weakness - Psychiatric Psychiatric: Present: A&O x's 3, appropriate affect, intact judgment & insight - Labs CBC & Chem 7: 05/08/23 05:22 05/08/23 05:22 Labs: Abnormal Lab Results - Last 24 Hours (Table) 05/07/23 05/07/23 05/07/23 Range/Units 13:06 13:06 17:46 WBC 15.0 H (3.8-10.6) k/uL RBC (4.10-5.20) X 10*6/uL Hgb (12.0-15.0) d/dL Hct (37.2-46.3) % RDW (11.5-14.5) % MPV (9.5-12.2) FL Neutrophils # 12.3 H (1.3-7.7) k/uL Eosinophils # (0.04-0.35) X 10*3/uL Sodium 135 L (137-145) mmol/L Chloride 97 L (98-107) mmol/L Glucose 267 H (74-99) mg/dL POC Glucose (mg/dL) 291 H (70-110) mg/dL C-Reactive Protein 1.6 H (<1.0) mg/dL Total Protein 9.2 H (6.3-8.2) g/dL 05/07/23 05/08/23 05/08/23 Range/Units 21:19 05:22 05:22 WBC 12.41 H (3.8-10.6) k/uL RBC 3.93 L (4.10-5.20) X 10*6/uL Hgb 10.7 L (12.0-15.0) d/dL Hct 33.1 L (37.2-46.3) % RDW 14.7 H (11.5-14.5) % MPV 8.9 L (9.5-12.2) FL Neutrophils # 8.47 H (1.3-7.7) k/uL Eosinophils # 0.57 H (0.04-0.35) X 10*3/uL Sodium (137-145) mmol/L Chloride (98-107) mmol/L Glucose 114 H (74-99) mg/dL POC Glucose (mg/dL) 232 H (70-110) mg/dL C-Reactive Protein (<1.0) mg/dL Total Protein (6.3-8.2) g/dL 05/08/23 Range/Units 06:36 WBC (3.8-10.6) k/uL RBC (4.10-5.20) X 10*6/uL Hgb (12.0-15.0) d/dL Hct (37.2-46.3) % RDW (11.5-14.5) % MPV (9.5-12.2) FL Neutrophils # (1.3-7.7) k/uL Eosinophils # (0.04-0.35) X 10*3/uL Sodium (137-145) mmol/L Chloride (98-107) mmol/L Glucose (74-99) mg/dL POC Glucose (mg/dL) 113 H (70-110) mg/dL C-Reactive Protein (<1.0) mg/dL Total Protein (6.3-8.2) g/dL Assessment and Plan (1) Stump pain Current Visit: Yes Status: Acute Code(s): T87.89 - OTHER COMPLICATIONS OF AMPUTATION STUMP; M79.609 - PAIN IN UNSPECIFIED LIMB SNOMED Code(s): 034534401 (2) History of below-knee amputation of right lower extremity Current Visit: No Status: Acute Code(s): Z89.511 - ACQUIRED ABSENCE OF RIGHT LEG BELOW KNEE SNOMED Code(s): 678792696700179 (3) COPD (chronic obstructive pulmonary disease) Current Visit: No Status: Acute Code(s): J44.9 - CHRONIC OBSTRUCTIVE PULMONARY DISEASE, UNSPECIFIED SNOMED Code(s): 22859825 (4) Type 2 diabetes mellitus Current Visit: No Status: Acute Code(s): E11.9 - TYPE 2 DIABETES MELLITUS WITHOUT COMPLICATIONS SNOMED Code(s): 15619690 (5) History of ischemic colitis Current Visit: Yes Status: Acute Code(s): Z87.19 - PERSONAL HISTORY OF OTHER DISEASES OF THE DIGESTIVE SYSTEM SNOMED Code(s): 6824822195513709 (6) Hypertension Current Visit: Yes Status: Acute Code(s): I10 - ESSENTIAL (PRIMARY) HYPERTENSION SNOMED Code(s): 39492900 Plan: Continue IV antibiotics. Check CBC and CMP in the morning. Patient seen and evaluated by nurse practitioner, physician in agreement with plan
[2023-05-08 10:02] LABS: Erythrocyte Sedimentation Rate 52 mm/Hr (0-30)
[2023-05-08 12:58] LABS: Glucose,Whole Blood 110 mg/dL (70-110)
--- NOTE | 2023-05-08 16:38 | P.PN ---
Subjective Progress Note Date: 05/08/23 Principal diagnosis: Right BK stump pain question of osteitis Patient is a 68-year-old female with a past medical history significant for COPD diabetes mellitus hypertension and did have a history of right below the knee amputation current everyday smoker presented to the hospital for evaluation of pain to the right BKA stump symptom has been going on for about 3 days before presentation to the hospital.-ray of the tibia-fibula no acute fracture new lucency involving the medial femoral condyle,CT cortical loss at amputation site of the right tibia correlate for osteitis On today's evaluation and that is 05/08/2023, the patient denies having any fever or chills, the patient feeling better as for his pain to the right BK stump is concerned patient currently do not have any open wound or any drainage no chest pain shortness of breath or cough no abdominal pain no diarrhea. Patient white count is down to 12.41, creatinine is 1.2, sed rate is 52, CRP 0.50 Objective - Vital Signs Vital signs: Vital Signs Temp 98.2 F 05/08/23 08:00 Pulse 70 05/08/23 08:00 Resp 17 05/08/23 08:00 BP 130/65 05/08/23 08:00 Pulse Ox 100 05/08/23 08:00 FiO2 Intake & Output 05/07/23 05/08/23 05/08/23 18:59 06:59 18:59 Output Total 100 Balance -100 Weight 81.647 kg 81.647 kg Output: Stool 100 Other: Voiding Method Toilet # Voids 1 - Exam GENERAL DESCRIPTION: An elderly male lying in bed in no distress RESPIRATORY SYSTEM: Unlabored breathing , decreased breath sounds at bases HEART: S1 S2 regular rate and rhythm , ABDOMEN: Soft , no tenderness EXTREMITIES: Right BK stump did have small area of concern but no open wound or drainage - Labs CBC & Chem 7: 05/08/23 05:22 05/08/23 05:22 Labs: Abnormal Lab Results - Last 24 Hours (Table) 05/07/23 05/07/23 05/07/23 Range/Units 13:06 13:06 17:46 WBC 15.0 H (3.8-10.6) k/uL RBC (4.10-5.20) X 10*6/uL Hgb (12.0-15.0) d/dL Hct (37.2-46.3) % RDW (11.5-14.5) % MPV (9.5-12.2) FL Neutrophils # 12.3 H (1.3-7.7) k/uL Eosinophils # (0.04-0.35) X 10*3/uL ESR (0-30) mm/Hr Sodium 135 L (137-145) mmol/L Chloride 97 L (98-107) mmol/L Anion Gap (4.00-12.00) mmol/L Est GFR (CKD-EPI) (>=60) Glucose 267 H (74-99) mg/dL POC Glucose (mg/dL) 291 H (70-110) mg/dL Hemoglobin A1c (<=6.0) % Total Bilirubin (0.3-1.2) mg/dL AST (13-35) U/L C-Reactive Protein 1.6 H (<1.0) mg/dL Total Protein 9.2 H (6.3-8.2) g/dL Albumin/Globulin Ratio (1.60-3.17) Ratio 05/07/23 05/08/23 05/08/23 Range/Units 21:19 05:22 05:22 WBC 12.41 H (3.8-10.6) k/uL RBC 3.93 L (4.10-5.20) X 10*6/uL Hgb 10.7 L (12.0-15.0) d/dL Hct 33.1 L (37.2-46.3) % RDW 14.7 H (11.5-14.5) % MPV 8.9 L (9.5-12.2) FL Neutrophils # 8.47 H (1.3-7.7) k/uL Eosinophils # 0.57 H (0.04-0.35) X 10*3/uL ESR 52 H (0-30) mm/Hr Sodium (137-145) mmol/L Chloride (98-107) mmol/L Anion Gap (4.00-12.00) mmol/L Est GFR (CKD-EPI) (>=60) Glucose (74-99) mg/dL POC Glucose (mg/dL) 232 H (70-110) mg/dL Hemoglobin A1c 6.8 H (<=6.0) % Total Bilirubin (0.3-1.2) mg/dL AST (13-35) U/L C-Reactive Protein (<1.0) mg/dL Total Protein (6.3-8.2) g/dL Albumin/Globulin Ratio (1.60-3.17) Ratio 05/08/23 05/08/23 Range/Units 05:22 06:36 WBC (3.8-10.6) k/uL RBC (4.10-5.20) X 10*6/uL Hgb (12.0-15.0) d/dL Hct (37.2-46.3) % RDW (11.5-14.5) % MPV (9.5-12.2) FL Neutrophils # (1.3-7.7) k/uL Eosinophils # (0.04-0.35) X 10*3/uL ESR (0-30) mm/Hr Sodium (137-145) mmol/L Chloride (98-107) mmol/L Anion Gap 13.30 H (4.00-12.00) mmol/L Est GFR (CKD-EPI) 49 L (>=60) Glucose 114 H (74-99) mg/dL POC Glucose (mg/dL) 113 H (70-110) mg/dL Hemoglobin A1c (<=6.0) % Total Bilirubin <0.2 L (0.3-1.2) mg/dL AST 12 L (13-35) U/L C-Reactive Protein (<1.0) mg/dL Total Protein (6.3-8.2) g/dL Albumin/Globulin Ratio 1.37 L (1.60-3.17) Ratio Assessment and Plan (1) Osteitis Current Visit: Yes Status: Acute Code(s): M86.9 - OSTEOMYELITIS, UNSPECIFIED SNOMED Code(s): 136841358 (2) Leukocytosis Current Visit: Yes Status: Acute Code(s): D72.829 - ELEVATED WHITE BLOOD CELL COUNT, UNSPECIFIED SNOMED Code(s): 413306235 Plan: 1patient with history of COPD diabetes current every smoker did have a history of right below the knee amputation now present to the hospital with pain to the right BKA stump patient did have some swelling and dusky appearance to the right BKA stump and tender to touch but no significant fluctuation or drainage was no ticed patient did have elevated white count and abnormal CT concerning for possible ostitis 2Patient did have mildly elevated inflammatory markers, with a sed rate of 52 3-we will obtain a bone scan to better define abnormality at the right BKA stump if positive will need further workup 4-patient to continue with the vancomycin and Rocephin empirically while awaiting further work-up to be completed Dictation was produced using [employer] dictation software. please excuse any grammatical, word or spelling errors. Time with Patient: Less than 30
[2023-05-08 16:57] LABS: Glucose,Whole Blood 271 mg/dL (70-110)
[2023-05-08 18:54] LABS: Glucose,Whole Blood 268 mg/dL (70-110)
[2023-05-08] MEDS: QUEtiapine 200 MG TAB PO SCH (20:32)
[2023-05-08] MEDS: MONTELUKAST 10 MG TAB PO SCH (20:32)
[2023-05-08] MEDS: FLUTICASONE 50MCG/SPRAY NASAL 16GM EA NOSTRIL SCH (20:32)
[2023-05-08 21:28] LABS: Glucose,Whole Blood 224 mg/dL (70-110)
[2023-05-09 06:11] LABS: Glucose,Whole Blood 166 mg/dL (70-110)
[2023-05-09] MEDS: INSULIN ASPART (NovoLOG) 100 UNIT/ML VIAL SQ SCH ×4 (06:20→20:59)
[2023-05-09] MEDS: VANCOMYCIN 1,500 MG in SODIUM CHLORIDE 0.9% 500 ML 500 ML IVPB SCH (06:20)
[2023-05-09] MEDS: metFORMIN 500 MG TAB PO SCH ×2 (06:20→17:37)
[2023-05-09] MEDS: INSULIN DETEMIR (LEVEMIR) 100 UNIT/ML SYR SQ SCH ×2 (06:20→20:59)
[2023-05-09] MEDS: LEVOTHYROXINE 88 MCG TAB PO SCH (06:20)
[2023-05-09] MEDS: SYMBICORT 160-4.5 MCG INHALER INHALATION SCH ×2 (08:13→20:43)
[2023-05-09 08:56] LABS: Appearance,Urine Clear (Clear); Bacteria,Urine Rare /hpf; Bilirubin,Urine Negative (Negative); Blood,Urine Negative (Negative); Color,Urine Light Yellow; Glucose,Urine (UA) Negative (Negative); Ketones,Urine Negative (Negative); Leukocyte Esterase,Urine Large (Negative); Nitrite,Urine Negative (Negative); Protein,Urine 2+ (Negative); RBC,Urine <1 /hpf (0-5); Specific Gravity,Urine 1.014 (1.001-1.035); Squamous Epithelial Cell,Urine 1 /hpf (0-4); Urobilinogen,Urine <2.0 mg/dL (<2.0); WBC,Urine 23 /hpf (0-5)
[2023-05-09 08:58] LABS: HCT 30.7 % (37.2-46.3); MCH 27.2 pg (27.0-32.0); MCHC 32.6 d/dL (32.0-37.0); MCV 83.4 FL (80.0-97.0); Mean Platelet Volume 9.1 FL (9.5-12.2); NRBC Per 100 WBC 0 X 10*3/uL (0.00-0.01); Platelet Count 149 X 10*3/uL (140-440); RBC 3.68 X 10*6/uL (4.10-5.20); RDW 14.7 % (11.5-14.5); WBC 13.57 X 10*3/uL (4.50-10.00)
[2023-05-09] MEDS: GABAPENTIN 400 MG CAP PO SCH ×3 (09:03→21:00)
[2023-05-09] MEDS: OXYBUTYNIN 10 MG TAB.ER.24 PO SCH (09:03)
[2023-05-09] MEDS: ATORVASTATIN 40 MG TAB PO SCH (09:03)
[2023-05-09] MEDS: FAMOTIDINE 20 MG TAB PO SCH (09:03)
[2023-05-09] MEDS: ASPIRIN 325 MG TAB PO SCH (09:03)
[2023-05-09] MEDS: FLUoxetine HCL 20 MG CAP PO SCH (09:03)
[2023-05-09] MEDS: LORATADINE 10 MG TAB PO SCH (09:03)
[2023-05-09] MEDS: CHOLECALCIFEROL 125 MCG (5000 IU) TABLET PO SCH (09:03)
[2023-05-09] MEDS: PRIMIDONE 25 MG TAB PO SCH ×2 (09:04→20:59)
[2023-05-09 09:11] LABS: ALT 13 U/L (8-44); AST 11 U/L (13-35); Albumin 3.7 d/dL (3.8-4.9); Albumin/Globulin Ratio 1.32 Ratio (1.60-3.17); Alkaline Phosphatase 82 U/L (41-126); Blood Urea Nitrogen 21.3 mg/dL (9.0-27.0); Calcium 8.7 mg/dL (8.7-10.3); Carbon Dioxide 23.9 mmol/L (21.6-31.8); Chloride 96 mmol/L (96-109); Globulin 2.8 d/dL (1.6-3.3); Glucose 139 mg/dL (70-110); Potassium 3.9 mmol/L (3.5-5.5); Sodium 132 mmol/L (135-145); Total Bilirubin <0.2 mg/dL (0.3-1.2); Total Protein 6.5 d/dL (6.2-8.2)
[2023-05-09 12:27] LABS: Glucose,Whole Blood 106 mg/dL (70-110)
--- NOTE | 2023-05-09 13:30 | NM ---
EXAMINATION TYPE: NM bone 3 phase DATE OF EXAM: 05/09/2023 COMPARISON: 08/29/2020 CLINICAL INDICATION: Female, 68 years old with history of abnormal CT right BKA stump ?osteomyelitis; Triple phase bone scintigraphy was performed following the injection of 22.3 mCi Tc 99m MDP. Immedia te images and 5.5 hours post injection images acquired. FINDINGS: As not included and there is increased perfusion along the distal margin of the right-sided stomach. Increased soft tissue uptake seen along the inferior margin of the stump. No suspicious-appearing upt julio cesar within the remaining osseous structures. IMPRESSION: Scintigraphic findings suggestive of cellulitis with no diagnostic evidence of osteomyelitis..
[2023-05-09] MEDS: HYDROcodone/APAP 10-325MG 1 EACH TAB PO PRN (15:49)
[2023-05-09 17:08] LABS: Glucose,Whole Blood 241 mg/dL (70-110)
--- NOTE | 2023-05-09 18:56 | P.PN ---
Subjective Progress Note Date: 05/09/23 Principal diagnosis: Cellulitis of the right lower stump. The patient is clinically improved. Minimal pain is stated. There is less erythema of the stump. We had a long discussion regarding possible revision of the prosthetic implement to decrease pressure. Objective - Vital Signs Vital signs: Vital Signs Temp 99.3 F 05/09/23 14:00 Pulse 96 05/09/23 14:00 Resp 16 05/09/23 14:00 BP 123/71 05/09/23 14:00 Pulse Ox 99 05/09/23 14:00 FiO2 Intake & Output 05/08/23 05/09/23 05/09/23 18:59 06:59 18:59 Intake Total 118 339 Output Total 2049 350 Balance Intake: Oral 118 339 Output: Urine 1400 Stool 650 350 Other: Voiding Method Toilet # Voids 1 2 - Constitutional General appearance: Present: average body habitus - EENT Eyes: Absent: abnormal pupil - Neck Neck: Absent: lymphadenopathy - Respiratory Respiratory: bilateral: diminished - Cardiovascular Rhythm: regular Heart sounds: normal: S1, S2 Abnormal Heart Sounds: Absent: S3 Gallop - Gastrointestinal General gastrointestinal: Present: soft. Absent: tenderness - Integumentary Integumentary: Present: cellulitis - Psychiatric Psychiatric: Present: A&O x's 3 - Labs CBC & Chem 7: 05/09/23 04:53 05/09/23 04:53 Labs: Abnormal Lab Results - Last 24 Hours (Table) 05/08/23 05/08/23 05/09/23 Range/Units 18:53 21:27 04:53 WBC 13.57 H (4.50-10.00) X 10*3/uL RBC 3.68 L (4.10-5.20) X 10*6/uL Hgb 10.0 L (12.0-15.0) d/dL Hct 30.7 L (37.2-46.3) % RDW 14.7 H (11.5-14.5) % MPV 9.1 L (9.5-12.2) FL Sodium (135-145) mmol/L Anion Gap (4.00-12.00) mmol/L Est GFR (CKD-EPI) (>=60) Glucose (70-110) mg/dL POC Glucose (mg/dL) 268 H 224 H (70-110) mg/dL Total Bilirubin (0.3-1.2) mg/dL AST (13-35) U/L Albumin (3.8-4.9) d/dL Albumin/Globulin Ratio (1.60-3.17) Ratio Urine Protein (Negative) Ur Leukocyte Esterase (Negative) Urine WBC (0-5) /hpf Urine Bacteria (None) /hpf 05/09/23 05/09/23 05/09/23 Range/Units 04:53 06:00 06:10 WBC (4.50-10.00) X 10*3/uL RBC (4.10-5.20) X 10*6/uL Hgb (12.0-15.0) d/dL Hct (37.2-46.3) % RDW (11.5-14.5) % MPV (9.5-12.2) FL Sodium 132 L (135-145) mmol/L Anion Gap 12.10 H (4.00-12.00) mmol/L Est GFR (CKD-EPI) 38 L (>=60) Glucose 139 H (70-110) mg/dL POC Glucose (mg/dL) 166 H (70-110) mg/dL Total Bilirubin <0.2 L (0.3-1.2) mg/dL AST 11 L (13-35) U/L Albumin 3.7 L (3.8-4.9) d/dL Albumin/Globulin Ratio 1.32 L (1.60-3.17) Ratio Urine Protein 2+ H (Negative) Ur Leukocyte Esterase Large H (Negative) Urine WBC 23 H (0-5) /hpf Urine Bacteria Rare H (None) /hpf 05/09/23 Range/Units 17:07 WBC (4.50-10.00) X 10*3/uL RBC (4.10-5.20) X 10*6/uL Hgb (12.0-15.0) d/dL Hct (37.2-46.3) % RDW (11.5-14.5) % MPV (9.5-12.2) FL Sodium (135-145) mmol/L Anion Gap (4.00-12.00) mmol/L Est GFR (CKD-EPI) (>=60) Glucose (70-110) mg/dL POC Glucose (mg/dL) 241 H (70-110) mg/dL Total Bilirubin (0.3-1.2) mg/dL AST (13-35) U/L Albumin (3.8-4.9) d/dL Albumin/Globulin Ratio (1.60-3.17) Ratio Urine Protein (Negative) Ur Leukocyte Esterase (Negative) Urine WBC (0-5) /hpf Urine Bacteria (None) /hpf Microbiology - Last 24 Hours (Table) 05/07/23 16:05 Blood Culture - Preliminary Blood 05/07/23 15:50 Blood Culture - Preliminary Blood Assessment and Plan (1) Cellulitis of right leg Current Visit: Yes Status: Acute Code(s): L03.115 - CELLULITIS OF RIGHT LOWER LIMB SNOMED Code(s): 625646564 (2) History of ischemic colitis Current Visit: Yes Status: Acute Code(s): Z87.19 - PERSONAL HISTORY OF OTHER DISEASES OF THE DIGESTIVE SYSTEM SNOMED Code(s): 7028986657973261 (3) Hypertension Current Visit: Yes Status: Acute Code(s): I10 - ESSENTIAL (PRIMARY) HYPERTENSION SNOMED Code(s): 54877940 (4) Stump pain Current Visit: Yes Status: Acute Code(s): T87.89 - OTHER COMPLICATIONS OF AMPUTATION STUMP; M79.609 - PAIN IN UNSPECIFIED LIMB SNOMED Code(s): 316567859 Plan: Appreciate infectious disease input. Check CBC and CMP in a.m. Anticipate discharge in next 24-48 hours. Prognosis is improving. Question need for revision of prosthetic to mitigate further decline of the area.
[2023-05-09 20:24] LABS: Glucose,Whole Blood 258 mg/dL (70-110)
[2023-05-09] MEDS: QUEtiapine 200 MG TAB PO SCH (20:59)
[2023-05-09] MEDS: MONTELUKAST 10 MG TAB PO SCH (20:59)
[2023-05-09] MEDS: FLUTICASONE 50MCG/SPRAY NASAL 16GM EA NOSTRIL SCH (21:00)
[2023-05-10] MEDS: HYDROcodone/APAP 10-325MG 1 EACH TAB PO PRN (03:33)
[2023-05-10] MEDS ORDERED: VANCOMYCIN TROUGH DUE 1 EACH MISC MISCELLANE ONE (05:00)
[2023-05-10 06:10] LABS: Glucose,Whole Blood 148 mg/dL (70-110)
[2023-05-10 06:13] LABS: African American GFR (CKD) 63 (>60 ml/min/1.73 sqM); Non-African American GFR(CKD) 54 (>60 ml/min/1.73 sqM)
[2023-05-10] MEDS: metFORMIN 500 MG TAB PO SCH (06:30)
[2023-05-10] MEDS: INSULIN ASPART (NovoLOG) 100 UNIT/ML VIAL SQ SCH ×2 (06:30→12:35)
[2023-05-10] MEDS: LEVOTHYROXINE 88 MCG TAB PO SCH (06:30)
[2023-05-10] MEDS: INSULIN DETEMIR (LEVEMIR) 100 UNIT/ML SYR SQ SCH (06:30)
[2023-05-10] MEDS: VANCOMYCIN 1,500 MG in SODIUM CHLORIDE 0.9% 500 ML 500 ML IVPB SCH (06:30)
[2023-05-10] MEDS: SYMBICORT 160-4.5 MCG INHALER INHALATION SCH (07:55)
[2023-05-10 08:20] VITALS: RESP 16
[2023-05-10] MEDS: ATORVASTATIN 40 MG TAB PO SCH (08:52)
[2023-05-10] MEDS: PRIMIDONE 25 MG TAB PO SCH (08:52)
[2023-05-10] MEDS: FLUoxetine HCL 20 MG CAP PO SCH (08:52)
[2023-05-10] MEDS: ASPIRIN 325 MG TAB PO SCH (08:52)
[2023-05-10] MEDS: OXYBUTYNIN 10 MG TAB.ER.24 PO SCH (08:52)
[2023-05-10] MEDS: LORATADINE 10 MG TAB PO SCH (08:53)
[2023-05-10] MEDS: CHOLECALCIFEROL 125 MCG (5000 IU) TABLET PO SCH (08:53)
--- NOTE | 2023-05-10 08:54 | P.DS ---
Providers Date of admission: 05/07/23 15:31 Attending physician: Yomi Kennedy Consults: 05/07/23 15:04 Consult Physician Urgent Consulting Provider: Juan Vaughn Consult Reason/Comments: Possible RLE cellulitis or osteomyelitis Do you want consulting provider notified?: Yes Primary care physician: Yomi Kennedy - Discharge Diagnosis(es) (1) Stump pain Current Visit: Yes Status: Acute (2) History of below-knee amputation of right lower extremity Current Visit: No Status: Acute (3) COPD (chronic obstructive pulmonary disease) Current Visit: No Status: Acute (4) Type 2 diabetes mellitus Current Visit: No Status: Acute (5) History of ischemic colitis Current Visit: Yes Status: Acute (6) Hypertension Current Visit: Yes Status: Acute Hospital Course: This is a 68-year-old female who presented to the emergency room for evaluation of right below the knee amputation stump pain. She had reported stomach pain for the last several days but denied any trauma. White count was elevated on admission, suspected cellulitis versus osteomyelitis. Patient was maintained on ceftriaxone and vancomycin in the hospital. Bone scan was negative. Patient is feeling better, would like to go home today. Please clarify with Dr. Vaughn discharge antibiotics. Plan - Discharge Summary Discharge Rx Participant: Yes New Discharge Prescriptions: Continue Oxybutynin Chloride [oxyBUTYnin chloride ER] 10 mg PO DAILY Fluticasone Nasal [place] [Flonase Nasal [place]] 1 spr EA NOSTRIL HS Albuterol Inhaler [Ventolin Hfa Inhaler] 2 puff INHALATION RT-QID PRN PRN Reason: Shortness Of Breath Cholecalciferol (Vitamin D3) [Vitamin D3 (125 MCG = 5,000 IU)] 125 mcg PO DAILY Fluticasone Propion/Salmeterol [Advair 500-50 Diskus] 1 puff INHALATION RT- BID HYDROcodone/APAP 10-325MG [[place] 10-325] 1 tab PO Q6H PRN 3 Days #12 tab PRN Reason: Pain Gabapentin 800 mg PO TID FLUoxetine HCL 40 mg PO DAILY Ibuprofen [Motrin] 600 mg PO Q8HR PRN PRN Reason: Pain Primidone [Mysoline] 25 mg PO BID Montelukast [Singulair] 10 mg PO HS Levothyroxine Sodium 88 mcg PO DAILY Atorvastatin [Lipitor] 40 mg PO DAILY Triamcinolone 0.1% Cream [Kenalog 0.1% Cream] 1 applic TOPICAL BID PRN PRN Reason: Rash Aspirin 325 mg PO DAILY #30 tab Levocetirizine Dihydrochloride [Xyzal] 5 mg PO BID Famotidine [Pepcid] 20 mg PO BID metFORMIN HCL 1,000 mg PO BID QUEtiapine [SEROquel] 200 mg PO HS Insulin Glargine,Hum.rec.anlog [Lantus Solostar Pen] 55 units SQ BID LORazepam [Ativan] 1 mg PO Q6H PRN PRN Reason: Anxiety Discharge Medication List Oxybutynin Chloride [oxyBUTYnin chloride ER] 10 mg PO DAILY 08/17/20 [History] Fluticasone Nasal [place] [Flonase Nasal [place]] 1 spr EA NOSTRIL HS 09/17/21 [History] Albuterol Inhaler [Ventolin Hfa Inhaler] 2 puff INHALATION RT-QID PRN 12/14/21 [History] Levothyroxine Sodium 88 mcg PO DAILY 12/14/21 [History] Atorvastatin [Lipitor] 40 mg PO DAILY 06/16/22 [History] Cholecalciferol (Vitamin D3) [Vitamin D3 (125 MCG = 5,000 IU)] 125 mcg PO DAILY 06/16/22 [History] Fluticasone Propion/Salmeterol [Advair 500-50 Diskus] 1 puff INHALATION RT-BID 06/16/22 [History] Triamcinolone 0.1% Cream [Kenalog 0.1% Cream] 1 applic TOPICAL BID PRN 06/16/22 [History] Aspirin 325 mg PO DAILY #30 tab 06/18/22 [Rx] Famotidine [Pepcid] 20 mg PO BID 01/19/23 [History] Levocetirizine Dihydrochloride [Xyzal] 5 mg PO BID 01/19/23 [History] HYDROcodone/APAP 10-325MG [[place] 10-325] 1 tab PO Q6H PRN 3 Days #12 tab 03/06/23 [Rx] FLUoxetine HCL 40 mg PO DAILY 03/31/23 [History] Gabapentin 800 mg PO TID 03/31/23 [History] Ibuprofen [Motrin] 600 mg PO Q8HR PRN 03/31/23 [History] Insulin Glargine,Hum.rec.anlog [Lantus Solostar Pen] 55 units SQ BID 03/31/23 [History] LORazepam [Ativan] 1 mg PO Q6H PRN 03/31/23 [History] QUEtiapine [SEROquel] 200 mg PO HS 03/31/23 [History] metFORMIN HCL 1,000 mg PO BID 03/31/23 [History] Montelukast [Singulair] 10 mg PO HS 05/07/23 [History] Primidone [Mysoline] 25 mg PO BID 05/07/23 [History] Follow up Appointment(s)/Referral(s): Yomi Kennedy MD [Primary Care Provider] - 3 Days Discharge Disposition: HOME SELF-CARE
[2023-05-10] MEDS: GABAPENTIN 400 MG CAP PO SCH (08:58)
[2023-05-10] MEDS ORDERED: FAMOTIDINE 20 MG TAB PO SCH (09:00)
--- NOTE | 2023-05-10 11:14 | CDI ---
Documentation Clarification Form Date: 05/10/2023 10:43:26 AM From: Alyce Knott RN, CCDS Admit Date: 05/07/2023 03:31:00 PM Patient Name: Akosua Yost Visit Number: [id number] Discharge Date: ATTENTION: The Clinical Documentation Specialists (CDI) and [facility] Coding Staff appreciate your assistance in clarifying documentation. Please respond to the clarification below the line at the bottom and electronically sign. The CDI & [facility] Coding staff will review the response and follow-up if needed. Please note: Queries are made part of the Legal Health Record. If you have any questions, please contact the author of this message via ITS. Dr. Yomi Kennedy Cellulitis is documented in the progress notes on 05/09/23. Additional clarification regarding the type of cellulitis is requested. 05/08 ID: Patient did have elevated white count and abnormal CT concerning for possible ostitis. History/risk factors: COPD, Diabetes Mellitus, Hypertension, Current every day smoker. Clinical Indicators: 68-year-old female present with pain to the right stump. Denies any injuries. She's been unable to sleep due to the pain and is also unable to wear her prosthetic leg. She has history of Type 2 Diabetes mellitus. 05/07 VS 181/85 82 20 98.6 05/07 Labs: WBC15.0, Neutrophils 12.3, Na+ 135, C-Reactive Protein 1.6 05/09 Bone scan: Scintigraphic finding suggestive of cellulitis with no diagnostic evidence of osteomyelitis. Treatment: Vancomycin HCL 1.500 MG IVPB Q 12 Hrs (PTD) Rocephin 2 GM IVPB Daily 05/07-05/10 Please clarify the etiology of the cellulitis, if known: [ ] Cellulitis is a diabetic skin complication [x ] Cellulitis is not a diabetic skin complication [ ] Other, please specify: [ ] Unable to determine (Template Last Revised: September 2022) MTDD
[2023-05-10 12:31] LABS: Glucose,Whole Blood 95 mg/dL (70-110)
[2023-05-10 14:09] VITALS: BP 146/76; PULSE 83; TEMP 98.4
--- NOTE | 2023-05-17 12:15 | P.PN ---
Subjective Progress Note Date: 05/09/23 Principal diagnosis: Right BK stump pain question of osteitis Patient is a 68-year-old female with a past medical history significant for COPD diabetes mellitus hypertension and did have a history of right below the knee amputation current everyday smoker presented to the hospital for evaluation of pain to the right BKA stump symptom has been going on for about 3 days before presentation to the hospital.-ray of the tibia-fibula no acute fracture new lucency involving the medial femoral condyle,CT cortical loss at amputation site of the right tibia correlate for osteitis On today's evaluation and that is 05/09/2023, the patient continues to be afebrile, the patient pain to the right BK stump has decreased in intensity, patient currently do not have any open wound or any drainage no chest pain shortness of breath or cough no abdominal pain no diarrhea. Patient white count is slightly up to 13.57 today, creatinine is 1.5, sed rate is 52, CRP 0.50, blood culture negative Objective - Vital Signs Vital signs: Vital Signs Temp 98.0 F 05/09/23 07:44 Pulse 86 05/09/23 07:44 Resp 16 05/09/23 07:44 BP 135/67 05/09/23 07:44 Pulse Ox 100 05/09/23 07:44 FiO2 Intake & Output 05/08/23 05/09/23 05/09/23 18:59 06:59 18:59 Intake Total 118 118 Output Total 2049 Balance 118 -2049 118 Intake: Oral 118 118 Output: Urine 1400 Stool 650 Other: Voiding Method Toilet # Voids 1 - Exam GENERAL DESCRIPTION: An elderly male lying in bed in no distress RESPIRATORY SYSTEM: Unlabored breathing , decreased breath sounds at bases HEART: S1 S2 regular rate and rhythm , ABDOMEN: Soft , no tenderness EXTREMITIES: Right BK stump did have small area of concern but no open wound or drainage - Labs CBC & Chem 7: 05/09/23 04:53 05/10/23 05:02 Labs: Abnormal Lab Results - Last 24 Hours (Table) 05/08/23 05/08/23 05/08/23 Range/Units 16:56 18:53 21:27 WBC (4.50-10.00) X 10*3/uL RBC (4.10-5.20) X 10*6/uL Hgb (12.0-15.0) d/dL Hct (37.2-46.3) % RDW (11.5-14.5) % MPV (9.5-12.2) FL Sodium (135-145) mmol/L Anion Gap (4.00-12.00) mmol/L Est GFR (CKD-EPI) (>=60) Glucose (70-110) mg/dL POC Glucose (mg/dL) 271 H 268 H 224 H (70-110) mg/dL Total Bilirubin (0.3-1.2) mg/dL AST (13-35) U/L Albumin (3.8-4.9) d/dL Albumin/Globulin Ratio (1.60-3.17) Ratio Urine Protein (Negative) Ur Leukocyte Esterase (Negative) Urine WBC (0-5) /hpf Urine Bacteria (None) /hpf 05/09/23 05/09/23 05/09/23 Range/Units 04:53 04:53 06:00 WBC 13.57 H (4.50-10.00) X 10*3/uL RBC 3.68 L (4.10-5.20) X 10*6/uL Hgb 10.0 L (12.0-15.0) d/dL Hct 30.7 L (37.2-46.3) % RDW 14.7 H (11.5-14.5) % MPV 9.1 L (9.5-12.2) FL Sodium 132 L (135-145) mmol/L Anion Gap 12.10 H (4.00-12.00) mmol/L Est GFR (CKD-EPI) 38 L (>=60) Glucose 139 H (70-110) mg/dL POC Glucose (mg/dL) (70-110) mg/dL Total Bilirubin <0.2 L (0.3-1.2) mg/dL AST 11 L (13-35) U/L Albumin 3.7 L (3.8-4.9) d/dL Albumin/Globulin Ratio 1.32 L (1.60-3.17) Ratio Urine Protein 2+ H (Negative) Ur Leukocyte Esterase Large H (Negative) Urine WBC 23 H (0-5) /hpf Urine Bacteria Rare H (None) /hpf 05/09/23 Range/Units 06:10 WBC (4.50-10.00) X 10*3/uL RBC (4.10-5.20) X 10*6/uL Hgb (12.0-15.0) d/dL Hct (37.2-46.3) % RDW (11.5-14.5) % MPV (9.5-12.2) FL Sodium (135-145) mmol/L Anion Gap (4.00-12.00) mmol/L Est GFR (CKD-EPI) (>=60) Glucose (70-110) mg/dL POC Glucose (mg/dL) 166 H (70-110) mg/dL Total Bilirubin (0.3-1.2) mg/dL AST (13-35) U/L Albumin (3.8-4.9) d/dL Albumin/Globulin Ratio (1.60-3.17) Ratio Urine Protein (Negative) Ur Leukocyte Esterase (Negative) Urine WBC (0-5) /hpf Urine Bacteria (None) /hpf Microbiology - Last 24 Hours (Table) 05/07/23 16:05 Blood Culture - Preliminary Blood 05/07/23 15:50 Blood Culture - Preliminary Blood Assessment and Plan (1) Osteitis Status: Acute Code(s): M86.9 - OSTEOMYELITIS, UNSPECIFIED SNOMED Code(s): 203548003 (2) Leukocytosis Status: Acute Code(s): D72.829 - ELEVATED WHITE BLOOD CELL COUNT, UNSPECIFIED SNOMED Code(s): 543467548 Plan: 1patient with history of COPD diabetes current every smoker did have a history of right below the knee amputation now present to the hospital with pain to the right BKA stump patient did have some swelling and dusky appearance to the right BKA stump and tender to touch but no significant fluctuation or drainage was noticed patient did have elevated white count and abnormal CT concerning for possible ostitis 2Patient did have mildly elevated inflammatory markers, with a sed rate of 52 3-we currently waiting for bone scan to be finalize, 2 better define abnormality at the right BKA stump if positive will need further workup 4-patient to continue with the vancomycin and Rocephin empirically while awaiting further work-up to be completed Dictation was produced using [employer] dictation software. please excuse any grammatical, word or spelling errors. Time with Patient: Less than 30
--- NOTE | 2023-05-17 12:16 | P.PN ---
Subjective Progress Note Date: 05/10/23 Principal diagnosis: Right BK stump pain question of osteitis Patient is a 68-year-old female with a past medical history significant for COPD diabetes mellitus hypertension and did have a history of right below the knee amputation current everyday smoker presented to the hospital for evaluation of pain to the right BKA stump symptom has been going on for about 3 days before presentation to the hospital.-ray of the tibia-fibula no acute fracture new lucency involving the medial femoral condyle,CT cortical loss at amputation site of the right tibia correlate for osteitis On today's evaluation and that is 05/10/2023, the patient denies any fever or chills, the patient pain to the right BK stump has improved, patient denies any drainage from the right BK stump, no chest pain shortness of breath or cough no abdominal pain no diarrhea. Patient white count is slightly up to 13.57 today, creatinine is 1.5 as of yesterday no blood work was done today, sed rate is 52, CRP 0.50, blood culture negative Objective - Vital Signs Vital signs: Vital Signs Temp 98 F 05/10/23 08:00 Pulse 72 05/10/23 08:00 Resp 16 05/10/23 08:00 BP 133/80 05/10/23 08:00 Pulse Ox 100 05/10/23 08:00 FiO2 Intake & Output 05/09/23 05/10/23 05/10/23 18:59 06:59 18:59 Intake Total 339 Output Total 350 300 Balance -11 -300 Intake: Oral 339 Output: Stool 350 300 Other: Voiding Method Toilet Toilet # Voids 2 1 - Exam GENERAL DESCRIPTION: An elderly male lying in bed in no distress RESPIRATORY SYSTEM: Unlabored breathing , decreased breath sounds at bases HEART: S1 S2 regular rate and rhythm , ABDOMEN: Soft , no tenderness EXTREMITIES: Right BK stump did have small area of concern but no open wound or drainage - Labs CBC & Chem 7: 05/09/23 04:53 05/10/23 05:02 Labs: Abnormal Lab Results - Last 24 Hours (Table) 05/09/23 05/09/23 05/10/23 Range/Units 17:07 20:23 05:02 Creatinine 1.06 H (0.52-1.04) mg/dL POC Glucose (mg/dL) 241 H 258 H (70-110) mg/dL 05/10/23 Range/Units 06:09 Creatinine (0.52-1.04) mg/dL POC Glucose (mg/dL) 148 H (70-110) mg/dL Microbiology - Last 24 Hours (Table) 05/09/23 06:00 Urine Culture - Final Urine,Voided 05/07/23 16:05 Blood Culture - Preliminary Blood 05/07/23 15:50 Blood Culture - Preliminary Blood Assessment and Plan (1) Osteitis Status: Acute Code(s): M86.9 - OSTEOMYELITIS, UNSPECIFIED SNOMED Code(s): 086489708 (2) Leukocytosis Status: Acute Code(s): D72.829 - ELEVATED WHITE BLOOD CELL COUNT, UNSPECIFIED SNOMED Code(s): 730994382 Plan: 1patient with history of COPD diabetes current every smoker did have a history of right below the knee amputation now present to the hospital with pain to the right BKA stump patient did have some swelling and dusky appearance to the right BKA stump and tender to touch but no significant fluctuation or drainage was n oticed patient did have elevated white count and abnormal CT concerning for possible ostitis 2Patient did have mildly elevated inflammatory markers, with a sed rate of 52 3-bone scan has been negative for osteomyelitis concern for possible cellulitis. 4we will give her short course of oral doxycycline and close outpatient follow- up prescription was sent to the pharmacy Dictation was produced using [employer] dictation software. please excuse any grammatical, word or spelling errors. Time with Patient: Less than 30
== END 2023-05-10 14:38 | disposition home or self-care (01) | DRG 565 ==
LOC: EC 11:26 → 5NMEDONC 15:31 → 6NMEDSUR 17:48
PROVIDERS: ADMIT Family Medicine; ATTEND Family Medicine
DX: T87.43 Infection of amputation stump, right lower extremity (principal); L03.115 Cellulitis of right lower limb; M86.9 Osteomyelitis, unspecified; F17.210 Nicotine dependence, cigarettes, uncomplicated; I10 Essential (primary) hypertension; J44.9 Chronic obstructive pulmonary disease, unspecified; R79.82 Elevated C-reactive protein (CRP); F32.A Depression, unspecified; E11.69 Type 2 diabetes mellitus with other specified complication; Z79.82 Long term (current) use of aspirin; Z79.84 Long term (current) use of oral hypoglycemic drugs; Z79.890 Hormone replacement therapy; Z79.899 Other long term (current) drug therapy; Z82.49 Family history of ischemic heart disease and other diseases of the circulatory system; Z83.3 Family history of diabetes mellitus; Z87.19 Personal history of other diseases of the digestive system; Z89.511 Acquired absence of right leg below knee; Z89.422 Acquired absence of other left toe(s); Z98.0 Intestinal bypass and anastomosis status
CPT/HCPCS: 36415; 78315; 80053; 80202; 81001; 82565; 83036; 83605; 84145; 85025; 85027; 85652; 86140; 87040; 87086; 94640; 96365; 96366; 96375; 99285

== ENCOUNTER 2023-05-16 16:26 | Observation (INO) | payer MEDICARE, OTHER ==
[2023-05-16] MEDS ORDERED: SODIUM CHLORIDE 0.9% 1,000 ML IV STA (17:07)
[2023-05-16] MEDS ORDERED: MORPHINE SULFATE 4 MG/ML SYRINGE IV STA ×2 (18:14→23:23)
[2023-05-16] MEDS ORDERED: FLUoxetine HCL 20 MG CAP PO STA (18:16)
[2023-05-16 18:20] LABS: ALT 17 U/L (4-34); AST 21 U/L (14-36); African American GFR (CKD) >90 (>60 ml/min/1.73 sqM); Albumin 4.1 g/dL (3.5-5.0); Alkaline Phosphatase 109 U/L (38-126); Amylase 48 U/L (30-110); Anion Gap 12 mmol/L; Blood Urea Nitrogen 22 mg/dL (7-17); Carbon Dioxide 21 mmol/L (22-30); Chloride 97 mmol/L (98-107); Glucose 226 mg/dL (74-99); Lipase 77 U/L (23-300); Non-African American GFR(CKD) 85 (>60 ml/min/1.73 sqM); Potassium 4.3 mmol/L (3.5-5.1); Sodium 130 mmol/L (137-145); Total Bilirubin 0.4 mg/dL (0.2-1.3); Total Protein 7.8 g/dL (6.3-8.2)
[2023-05-16 18:52] LABS: Basophils % (A) 0 %; Eosinophils # (A) 0.6 k/uL (0-0.7); Eosinophils % (A) 5 %; HCT 29.7 % (34.0-46.0); HGB 10.2 gm/dL (11.4-16.0); Lymphocytes # (A) 3.1 k/uL (1.0-4.8); Lymphocytes % (A) 25 %; MCH 28.1 pg (25.0-35.0); MCHC 34.2 g/dL (31.0-37.0); Mean Platelet Volume 7.2; Monocytes # (A) 0.5 k/uL (0-1.0); Monocytes % (A) 4 %; Neutrophils # (A) 7.9 k/uL (1.3-7.7); Neutrophils % (A) 64 %; Platelet Count 134 k/uL (150-450); RBC 3.62 m/uL (3.80-5.40); RDW 15.2 % (11.5-15.5); WBC 12.3 k/uL (3.8-10.6)
--- NOTE | 2023-05-16 21:08 | CT ---
EXAMINATION TYPE: CT abdomen pelvis wo con DATE OF EXAM: 05/16/2023 COMPARISON: 01/28/2023 HISTORY: 68-year-old female right sided abdominal pain. colostomy. CT DLP: 910.6 mGycm. Automated exposure control for dose reduction was used. TECHNIQUE: Contiguous axial scanning of the abdomen and pelvis without IV contrast. Coronal and sagit noelle reconstructions performed. FINDINGS: Heart borderline enlarged without pericardial effusion. There is strandy atelectasis in the lower bradley gs. Prominent mixed ingested material within the stomach. Noncontrast appearance of the liver, adrenal glands, kidneys, spleen, and pancreas show no gross abno rmality. Dilated mid to distal small bowel loops up to 5.3 cm with air-fluid levels. There appears to be a col ectomy with Silva's pouch. Right mid abdominal ileostomy with a parastomal hernia comprised of a small bowel loop dilated up to 5.0 cm and impacted with mottled, solid material. There appears to be a secondary obstruction at this level. No free fluid or free air. Bladder partially distended. Both ovaries are visualized. Uterus surgically absent. No abnormal fluid collection in the pelvis or pelvic lymphadenopathy. Bones: Status post L4-L5 posterior and interbody fusion. Grade 1 anterolisthesis L5-S1 with moderate to advanced degenerative disc disease. IMPRESSION: 1. Right midabdominal ileostomy with a parastomal hernia containing a small bowel loop which is dila suzanne and impacted with solid stool-like material, distended up to 5.0 cm. Secondary high-grade small b owel obstruction at this level. 2. Status post colectomy with Silva's pouch.
[2023-05-16] MEDS ORDERED: ACETAMINOPHEN TAB 325 MG TAB PO PRN (23:23)
[2023-05-16] MEDS ORDERED: MORPHINE SULFATE 4 MG/ML SYRINGE IV PRN (23:23)
[2023-05-16] MEDS ORDERED: ONDANSETRON 4 MG/2 ML VIAL IVP PRN (23:23)
[2023-05-16] MEDS ORDERED: NALOXONE 0.4 MG/ML 1 ML VIAL IV PRN (23:23)
[2023-05-16] MEDS ORDERED: ALBUTEROL NEBULIZED 2.5 MG/3 ML INHALATION PRN (23:26)
[2023-05-16] MEDS ORDERED: SODIUM CHLORIDE 0.9% 1,000 ML IV SCH (23:30)
[2023-05-17] MEDS ORDERED: LEVOTHYROXINE 88 MCG TAB PO SCH (07:00)
[2023-05-17 07:20] LABS: Glucose,Whole Blood 153 mg/dL (70-110)
[2023-05-17] MEDS ORDERED: SYMBICORT 160-4.5 MCG INHALER INHALATION SCH (08:00)
[2023-05-17] MEDS ORDERED: GABAPENTIN 400 MG CAP PO SCH (09:00)
[2023-05-17] MEDS ORDERED: metFORMIN 500 MG TAB PO SCH (09:00)
[2023-05-17] MEDS ORDERED: diphenhydrAMINE 25 MG CAP PO STA (09:16)
[2023-05-17] MEDS ORDERED: TRIAMCINOLONE 0.1% CREAM 80 GM TUBE TOPICAL PRN (09:16)
[2023-05-17 11:46] LABS: Glucose,Whole Blood 105 mg/dL (70-110)
[2023-05-17 11:56] VITALS: BP 151/66; PULSE 74; RESP 18; TEMP 98.2
--- NOTE | 2023-05-17 13:31 | P.GSHP ---
History of Present Illness H&P Date: 05/17/23 CHIEF COMPLAINT: Abdominal pain HISTORY OF PRESENT ILLNESS: This is a 68-year-old female with a history of ischemic colitis and necrosis status post colectomy with end ileostomy in January 2023. Patient presents to the hospital with complaints of abdominal pain and evidence of a parastomal hernia with small bowel loop dilated and impacted with stool with concerns of high-grade small bowel obstruction noted on computed tomography scan. Patient's ileostomy is functioning. She currently denies any abdominal pain. The parastomal hernia has reduced. No nausea or vomiting reported. Patient is a poor historian most information was obtained from the chart and nurse. PAST MEDICAL HISTORY: See list. PAST SURGICAL HISTORY: See list. MEDICATIONS: See list. ALLERGIES: See list. SOCIAL HISTORY: No illicit drug use. REVIEW OF SYSTEMS: CONSTITUTIONAL: Denies fever or chills. HEENT: Denies blurred vision, vision changes, or eye pain. Denies hemoptysis ENDOCRINE: Denies heat or cold intolerance. CARDIOVASCULAR: Denies chest pain or pressure. RESPIRATORY: No shortness of breath. GASTROINTESTINAL: Please refer to HPI otherwise unremarkable NEURO: Denies history of seizures. PSYCH: No depression or suicidal ideation HEMATOLOGIC: Denies bleeding disorders. LYMPHATIC: The patient denies any lumps and bumps around the neck. GENITOURINARY: Denies any blood in urine or increased urinary frequency. MUSCULOSKELETAL: Denies myalgias. Denies joint swelling. Denies decreased range of motion beyond patients baseline. SKIN: Denies pruitis. Denies rash. PHYSICAL EXAM: VITAL SIGNS: Reviewed GENERAL: Well-developed in no acute distress. HEENT: No sclera icterus. Extraocular movements grossly intact. Moist buccal mucosa. Head is atraumatic, normocephalic. Hears conversational speech. No nasal drainage. NECK: Supple without lymphadenopathy. CHEST: Non-labored respirations and equal bilateral excursions. CARDIOVASCULAR: Palpable 2+ radial pulses. ABDOMEN: Soft. Nondistended. Nontender. No evidence of parastomal hernia this time. Parastomal hernia reduced. Ileostomy on the right side of the abdomen with stool. Stoma pink color MUSCULOSKELETAL: No clubbing or cyanosis. NEUROLOGIC: No focal or lateralizing signs. Cranial nerves II through XII grossly intact. PSYCH: Appropriate affect. Alert and oriented to person, place and time. SKIN: Well perfused. Good skin turgor. LABORATORY DATA: WBC 12.3 HGB 10.2 plt 134 Na 130 K 4.3 creatinine 0.73 Lactic acid 1.6 LFTs normal Lipase 77 Stool for C. diff negative IMAGING: Computed tomography scan abdomen and pelvis right mid abdominal ileostomy with a parastomal hernia containing a small bowel loop which is dilated impacted with solid stool-like material, distended up to 5.0 cm. Secondary high-grade small bowel obstruction at this level. Status post colectomy with Silva's pouch. ASSESSMENT: 1. Parastomal hernia that had contained small bowel loop that was dilated and impacted stool causing high-grade small bowel obstruction noted on computed tomography scan. Parastomal hernia reduced. Ileostomy with stool. 2. History of ischemic colitis and necrosis status post colectomy with end ileo stomy in January 2023 PLAN: -Patient parastomal hernia is reduced. She has stool in her ostomy. No a bdominal pain. Advance diet to low fiber. Patient to be discharged this afternoon if tolerating diet. Physician [employer]er note has been reviewed by physician. Signing provider agrees with the documented findings, assessment, and plan of care. 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, Ileostomy January 2023, Past Anesthesia/Blood Transfusion Reactions: No Reported Reaction Past Psychological History: Depression Smoking Status: Current every day smoker Past Alcohol Use History: None Reported Past Drug Use History: None Reported Additional Drug Use History / Comment(s): Patient states she quit smoking about 1 year ago. - Past Family History Father Family Medical History: Coronary Artery Disease (CAD) Mother Family Medical History: Diabetes Mellitus Medications and Allergies Home Medications Medication Instructions Recorded Confirmed Type Oxybutynin Chloride [oxyBUTYnin 10 mg PO DAILY 08/17/20 05/17/23 History chloride ER] Fluticasone Nasal [place] [Flonase 1 spr EA NOSTRIL HS 09/17/21 05/17/23 History Nasal [place]] Albuterol Inhaler [Ventolin Hfa 2 puff INHALATION RT-QID PRN 12/14/21 05/17/23 History Inhaler] Levothyroxine Sodium 88 mcg PO DAILY 12/14/21 05/17/23 History Atorvastatin [Lipitor] 40 mg PO DAILY 06/16/22 05/17/23 History Cholecalciferol (Vitamin D3) 125 mcg PO DAILY 06/16/22 05/17/23 History [Vitamin D3 (125 MCG = 5,000 IU)] Fluticasone Propion/Salmeterol 1 puff INHALATION RT-BID 06/16/22 05/17/23 History [Advair 500-50 Diskus] Triamcinolone 0.1% Cream [Kenalog 1 applic TOPICAL BID PRN 06/16/22 05/17/23 History 0.1% Cream] Aspirin 325 mg PO DAILY #30 tab 06/18/22 05/17/23 Rx Famotidine [Pepcid] 20 mg PO BID 01/19/23 05/17/23 History Levocetirizine Dihydrochloride 5 mg PO BID 01/19/23 05/17/23 History [Xyzal] HYDROcodone/APAP 10-325MG [[place] 1 tab PO Q6H PRN 3 Days #12 tab 03/06/23 05/17/23 Rx 10-325] FLUoxetine HCL 40 mg PO DAILY 03/31/23 05/17/23 History Gabapentin 800 mg PO TID 03/31/23 05/17/23 History Ibuprofen [Motrin] 600 mg PO Q8HR PRN 03/31/23 05/17/23 History Insulin Glargine,Hum.rec.anlog 55 units SQ BID 03/31/23 05/17/23 History [Lantus Solostar Pen] LORazepam [Ativan] 1 mg PO Q6H PRN 03/31/23 05/17/23 History QUEtiapine [SEROquel] 200 mg PO HS 03/31/23 05/17/23 History metFORMIN HCL 1,000 mg PO BID 03/31/23 05/17/23 History Montelukast [Singulair] 10 mg PO HS 05/07/23 05/17/23 History Primidone [Mysoline] 25 mg PO BID 05/07/23 05/17/23 History Doxycycline Hyclate 100 mg PO BID 10 Days #20 tab 05/10/23 05/17/23 Rx Allergies Allergy/AdvReac Type Severity Reaction Status Date / Time No Known Allergies Allergy Verified 05/17/23 07:24 Surgical - Exam Vital Signs Temp Pulse Resp BP Pulse Ox 98.3 F 75 20 145/74 100 05/16/23 16:30 05/16/23 16:30 05/16/23 16:30 05/16/23 16:30 05/16/23 16:30 Results - Labs 05/16/23 18:32 05/16/23 17:39 Abnormal Lab Results - Last 24 Hours (Table) 05/16/23 05/16/23 05/17/23 Range/Units 17:39 18:32 07:19 WBC 12.3 H (3.8-10.6) k/uL RBC 3.62 L (3.80-5.40) m/uL Hgb 10.2 L (11.4-16.0) gm/dL Hct 29.7 L (34.0-46.0) % Plt Count 134 L (150-450) k/uL Neutrophils # 7.9 H (1.3-7.7) k/uL Sodium 130 L (137-145) mmol/L Chloride 97 L (98-107) mmol/L Carbon Dioxide 21 L (22-30) mmol/L BUN 22 H (7-17) mg/dL Glucose 226 H (74-99) mg/dL POC Glucose (mg/dL) 153 H (70-110) mg/dL Diabetes panel 05/16/23 Range/Units 17:39 Sodium 130 L (137-145) mmol/L Potassium 4.3 (3.5-5.1) mmol/L Chloride 97 L (98-107) mmol/L Carbon Dioxide 21 L (22-30) mmol/L BUN 22 H (7-17) mg/dL Creatinine 0.73 (0.52-1.04) mg/dL Glucose 226 H (74-99) mg/dL Calcium 9.0 (8.4-10.2) mg/dL AST 21 (14-36) U/L ALT 17 (4-34) U/L Alkaline Phosphatase 109 (38-126) U/L Total Protein 7.8 (6.3-8.2) g/dL Albumin 4.1 (3.5-5.0) g/dL Calcium panel 05/16/23 Range/Units 17:39 Calcium 9.0 (8.4-10.2) mg/dL Albumin 4.1 (3.5-5.0) g/dL Pituitary panel 05/16/23 Range/Units 17:39 Sodium 130 L (137-145) mmol/L Potassium 4.3 (3.5-5.1) mmol/L Chloride 97 L (98-107) mmol/L Carbon Dioxide 21 L (22-30) mmol/L BUN 22 H (7-17) mg/dL Creatinine 0.73 (0.52-1.04) mg/dL Glucose 226 H (74-99) mg/dL Calcium 9.0 (8.4-10.2) mg/dL Adrenal panel 05/16/23 Range/Units 17:39 Sodium 130 L (137-145) mmol/L Potassium 4.3 (3.5-5.1) mmol/L Chloride 97 L (98-107) mmol/L Carbon Dioxide 21 L (22-30) mmol/L BUN 22 H (7-17) mg/dL Creatinine 0.73 (0.52-1.04) mg/dL Glucose 226 H (74-99) mg/dL Calcium 9.0 (8.4-10.2) mg/dL Total Bilirubin 0.4 (0.2-1.3) mg/dL AST 21 (14-36) U/L ALT 17 (4-34) U/L Alkaline Phosphatase 109 (38-126) U/L Total Protein 7.8 (6.3-8.2) g/dL Albumin 4.1 (3.5-5.0) g/dL
--- NOTE | 2023-05-17 14:02 | P.DS ---
Providers Date of admission: 05/16/23 23:23 Expected date of discharge: 05/17/23 Attending physician: Kori Larsen Primary care physician: Yomi Kennedy Hospital Course: Discharge diagnosis 1. Parastomal hernia that had contained small bowel loop that was dilated and impacted stool causing high-grade small bowel obstruction noted on computed tomography scan. Parastomal hernia reduced. Ileostomy with stool. 2. 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 Patient presents to the hospital with complaints of abdominal pain and evidence of a parastomal hernia with small bowel loop dilated and impacted with stool with concerns of high- grade small bowel obstruction noted on computed tomography scan. Patient's ileostomy is functioning. No abdominal pain reported. The parastomal hernia is reduced. She is tolerating diet. Afebrile. Patient is stable for discharge. Physician Unit Operator note has been reviewed by physician. Signing provider agrees with the documented findings, assessment, and plan of care. Patient Condition at Discharge: Stable Plan - Discharge Summary Discharge Rx Participant: No New Discharge Prescriptions: Continue Oxybutynin Chloride [oxyBUTYnin chloride ER] 10 mg PO DAILY Fluticasone Nasal [place] [Flonase Nasal [place]] 1 spr EA NOSTRIL HS Albuterol Inhaler [Ventolin Hfa Inhaler] 2 puff INHALATION RT-QID PRN PRN Reason: Shortness Of Breath Cholecalciferol (Vitamin D3) [Vitamin D3 (125 MCG = 5,000 IU)] 125 mcg PO DAILY Fluticasone Propion/Salmeterol [Advair 500-50 Diskus] 1 puff INHALATION RT- BID Gabapentin 800 mg PO TID FLUoxetine HCL 40 mg PO DAILY Ibuprofen [Motrin] 600 mg PO Q8HR PRN PRN Reason: Pain Primidone [Mysoline] 25 mg PO BID Montelukast [Singulair] 10 mg PO HS Levothyroxine Sodium 88 mcg PO DAILY Atorvastatin [Lipitor] 40 mg PO DAILY Triamcinolone 0.1% Cream [Kenalog 0.1% Cream] 1 applic TOPICAL BID PRN PRN Reason: Rash Aspirin 325 mg PO DAILY #30 tab Levocetirizine Dihydrochloride [Xyzal] 5 mg PO BID Famotidine [Pepcid] 20 mg PO BID metFORMIN HCL 1,000 mg PO BID QUEtiapine [SEROquel] 200 mg PO HS Insulin Glargine,Hum.rec.anlog [Lantus Solostar Pen] 55 units SQ BID LORazepam [Ativan] 1 mg PO Q6H PRN PRN Reason: Anxiety Doxycycline Hyclate 100 mg PO BID 10 Days #20 tab Discontinued HYDROcodone/APAP 10-325MG [[place] 10-325] 1 tab PO Q6H PRN 3 Days #12 tab PRN Reason: Pain Discharge Medication List Oxybutynin Chloride [oxyBUTYnin chloride ER] 10 mg PO DAILY 08/17/20 [History] Fluticasone Nasal [place] [Flonase Nasal [place]] 1 spr EA NOSTRIL HS 09/17/21 [History] Albuterol Inhaler [Ventolin Hfa Inhaler] 2 puff INHALATION RT-QID PRN 12/14/21 [History] Levothyroxine Sodium 88 mcg PO DAILY 12/14/21 [History] Atorvastatin [Lipitor] 40 mg PO DAILY 06/16/22 [History] Cholecalciferol (Vitamin D3) [Vitamin D3 (125 MCG = 5,000 IU)] 125 mcg PO DAILY 06/16/22 [History] Fluticasone Propion/Salmeterol [Advair 500-50 Diskus] 1 puff INHALATION RT-BID 06/16/22 [History] Triamcinolone 0.1% Cream [Kenalog 0.1% Cream] 1 applic TOPICAL BID PRN 06/16/22 [History] Aspirin 325 mg PO DAILY #30 tab 06/18/22 [Rx] Famotidine [Pepcid] 20 mg PO BID 01/19/23 [History] Levocetirizine Dihydrochloride [Xyzal] 5 mg PO BID 01/19/23 [History] FLUoxetine HCL 40 mg PO DAILY 03/31/23 [History] Gabapentin 800 mg PO TID 03/31/23 [History] Ibuprofen [Motrin] 600 mg PO Q8HR PRN 03/31/23 [History] Insulin Glargine,Hum.rec.anlog [Lantus Solostar Pen] 55 units SQ BID 03/31/23 [History] LORazepam [Ativan] 1 mg PO Q6H PRN 03/31/23 [History] QUEtiapine [SEROquel] 200 mg PO HS 03/31/23 [History] metFORMIN HCL 1,000 mg PO BID 03/31/23 [History] Montelukast [Singulair] 10 mg PO HS 05/07/23 [History] Primidone [Mysoline] 25 mg PO BID 05/07/23 [History] Doxycycline Hyclate 100 mg PO BID 10 Days #20 tab 05/10/23 [Rx] Follow up Appointment(s)/Referral(s): Yomi Kennedy MD [Primary Care Provider] - 1 Week Discharge Disposition: HOME SELF-CARE
[2023-05-17] MEDS ORDERED: QUEtiapine 200 MG TAB PO SCH (21:00)
== END 2023-05-17 15:10 | disposition home or self-care (01) ==
LOC: EC 16:26 → 5NMEDONC 23:23 → INTOOBSV 23:23 → 5NMEDONC 23:56 → UNDODISIN 05-17 15:10
PROVIDERS: ADMIT Surgery Plastic and Reconstructive Surgery; ATTEND Surgery Plastic and Reconstructive Surgery
DX: K43.3 Parastomal hernia with obstruction, without gangrene (principal); J44.9 Chronic obstructive pulmonary disease, unspecified; E11.9 Type 2 diabetes mellitus without complications; I10 Essential (primary) hypertension; F32.A Depression, unspecified; Z87.891 Personal history of nicotine dependence; Z90.49 Acquired absence of other specified parts of digestive tract; Z93.2 Ileostomy status; Z79.51 Long term (current) use of inhaled steroids; Z79.82 Long term (current) use of aspirin; Z79.4 Long term (current) use of insulin; Z79.84 Long term (current) use of oral hypoglycemic drugs; Z79.899 Other long term (current) drug therapy
CPT/HCPCS: 96376; 96361; 96374; 36415; 80053; 82150; 83605; 83690; 85025; 87324; 74176; G0378 ×2; G0379; J2270

== ENCOUNTER → 2023-05-23 | Outpatient (CLI) | payer MEDICARE, OTHER ==
[2023-05-23 22:45] LABS: Alternaria alternata IgE <0.10 kU/L; Aspergillus fumagatus IgE <0.10 kU/L; Birch IgE <0.10 kU/L; Cat Epith & Dander IgE <0.10 kU/L; Dermato. farinae IgE <0.10 kU/L; Dog Dander IgE 0.11 kU/L; Elm IgE <0.10 kU/L; Oak IgE <0.10 kU/L; Ragweed,Common IgE <0.10 kU/L
[2023-05-24 11:29] LABS: Pecan IgE <0.10 kU/L (<0.10); Pecan IgE Class CLASS 0
[2023-05-24 11:30] LABS: Bermuda Grass IgE <0.10 kU/L (<0.10); Clad herbarum IgE <0.10 kU/L (<0.10); Clad herbarum IgE Class CLASS 0; Meadow Fescue IgE <0.10 kU/L (<0.10); Meadow Fescue IgE Class CLASS 0; Meadow Grs (KY blue) IgE <0.10 kU/L (<0.10); Meadow Grs (KY blue) IgE Class CLASS 0; Penicillium notatum IgE Class CLASS 0; Timothy Grass IgE <0.10 kU/L (<0.10); Timothy Grass IgE Class CLASS 0
[2023-05-24 11:31] LABS: Beech IgE <0.10 kU/L (<0.10); Beech IgE Class CLASS 0; Cottonwood IgE <0.10 kU/L (<0.10); Goldenrod IgE <0.10 kU/L (<0.10); Goldenrod IgE Class CLASS 0; Lamb's Quarter IgE <0.10 kU/L (<0.10); Lamb's Quarter IgE Class CLASS 0; Sycamore(Mpl.Lf) IgE <0.10 kU/L (<0.10); Sycamore(Mpl.Lf) IgE Class CLASS 0; Willow Tree IgE <0.10 kU/L (<0.10); Willow Tree IgE Class CLASS 0
[2023-05-24 11:32] LABS: English Plantain IgE Class CLASS 0; Ragweed, Giant IgE <0.10 kU/L (<0.10); Ragweed, Giant IgE Class CLASS 0; Sheep Sorrel IgE <0.10 kU/L (<0.10); Sheep Sorrel IgE Class CLASS 0
== END | disposition home or self-care (01) ==
LOC: LABWHC1 14:21
PROVIDERS: ATTEND Internal Medicine
DX: L29.9 Pruritus, unspecified (principal)
CPT/HCPCS: 36415; 86003

== ENCOUNTER 2023-05-24 01:07 | Inpatient (IN) | payer MEDICARE, OTHER ==
[2023-05-24] MEDS ORDERED: SODIUM CHLORIDE 0.9% 1,000 ML IV ONE (01:30)
[2023-05-24] MEDS ORDERED: MAG HYDROX/AL HYDROX/SIMETH 30 ML, HYOSCYAMINE ELIXIR 10 ML, LIDOCAINE 2% GLYDO JELLY 1... PO STA ×3 (01:30)
[2023-05-24 02:05] LABS: Basophils % (A) 0 %; Eosinophils # (A) 0.4 k/uL (0-0.7); Eosinophils % (A) 3 %; HCT 35.4 % (34.0-46.0); HGB 12.1 gm/dL (11.4-16.0); Lymphocytes # (A) 2.5 k/uL (1.0-4.8); Lymphocytes % (A) 17 %; MCH 28.2 pg (25.0-35.0); MCHC 34.2 g/dL (31.0-37.0); MCV 82.4 fL (80.0-100.0); Monocytes # (A) 0.8 k/uL (0-1.0); Monocytes % (A) 5 %; Neutrophils % (A) 74 %; Platelet Count 186 k/uL (150-450); RDW 15.4 % (11.5-15.5); WBC 14.9 k/uL (3.8-10.6)
[2023-05-24 02:07] LABS: ALT 20 U/L (4-34); AST 24 U/L (14-36); African American GFR (CKD) 56 (>60 ml/min/1.73 sqM); Albumin 3.9 g/dL (3.5-5.0); Alkaline Phosphatase 111 U/L (38-126); Anion Gap 12 mmol/L; Blood Urea Nitrogen 25 mg/dL (7-17); Calcium 9.2 mg/dL (8.4-10.2); Carbon Dioxide 18 mmol/L (22-30); Chloride 102 mmol/L (98-107); Glucose 281 mg/dL (74-99); Non-African American GFR(CKD) 49 (>60 ml/min/1.73 sqM); Potassium 4.5 mmol/L (3.5-5.1); Sodium 132 mmol/L (137-145); Total Bilirubin 0.5 mg/dL (0.2-1.3); Total Protein 7.5 g/dL (6.3-8.2)
--- NOTE | 2023-05-24 02:16 | ED ---
General Adult HPI - General Source: patient, family, RN notes reviewed Mode of arrival: wheelchair Limitations: no limitations <Destiny Ayala - Last Filed: 05/25/23 10:12> - History of Present Illness -: days(s) Location: abdomen Radiation: non-radiation Severity scale (1-10): 10 Quality: stabbing, aching, sharp Consistency: constant Improves with: none Worsens with: none Associated Symptoms: loss of appetite, nausea/vomiting, weakness Treatments Prior to Arrival: none <Temo Portillo - Last Filed: 05/28/23 23:35> - General Chief complaint: Abdominal Pain Stated complaint: Abd pain Time Seen by Provider: 05/24/23 01:20 - History of Present Illness Initial comments: 68-year-old female with past medical history significant for diabetes mellitus type 2 COPD, ischemic bowel presents to the emergency department with a chief complaint of acute abdominal pain. She reports sharp abdominal pain that started earlier this afternoon. She also complains of accompanying symptoms of nausea however has not vomited. She reports that she is still having stool output in her colostomy bag. Denies recent sick contacts. Denies any known fevers, chills, melena, hematochezia, hematemesis. She has a patient of Dr. Ashtons. (Destiny Ayala) This is a 68-year-old female to the emergency department for evaluation significant medical history significant surgical history presenting for severe abdominal pain with nausea and vomiting (Temo Portillo) - Related Data Home Medications Medication Instructions Recorded Confirmed Oxybutynin Chloride [oxyBUTYnin 10 mg PO DAILY 08/17/20 05/24/23 chloride ER] Fluticasone Nasal [place] [Flonase 1 spr EA NOSTRIL HS 09/17/21 05/24/23 Nasal [place]] Albuterol Inhaler [Ventolin Hfa 2 puff INHALATION RT-QID PRN 12/14/21 05/24/23 Inhaler] Levothyroxine Sodium 88 mcg PO DAILY 12/14/21 05/24/23 Atorvastatin [Lipitor] 40 mg PO DAILY 06/16/22 05/24/23 Cholecalciferol (Vitamin D3) 125 mcg PO DAILY 06/16/22 05/24/23 [Vitamin D3 (125 MCG = 5,000 IU)] Fluticasone Propion/Salmeterol 1 puff INHALATION RT-BID 06/16/22 05/24/23 [Advair 500-50 Diskus] Triamcinolone 0.1% Cream [Kenalog 1 applic TOPICAL BID PRN 06/16/22 05/24/23 0.1% Cream] Famotidine [Pepcid] 20 mg PO BID 01/19/23 05/24/23 Levocetirizine Dihydrochloride 5 mg PO BID 01/19/23 05/24/23 [Xyzal] FLUoxetine HCL 40 mg PO DAILY 03/31/23 05/24/23 Gabapentin 800 mg PO TID 03/31/23 05/24/23 Ibuprofen [Motrin] 600 mg PO Q8HR PRN 03/31/23 05/24/23 Insulin Glargine,Hum.rec.anlog 55 units SQ BID 03/31/23 05/24/23 [Lantus Solostar Pen] LORazepam [Ativan] 1 mg PO Q6H PRN 03/31/23 05/24/23 QUEtiapine [SEROquel] 200 mg PO HS 03/31/23 05/24/23 metFORMIN HCL 1,000 mg PO BID 03/31/23 05/24/23 Montelukast [Singulair] 10 mg PO HS 05/07/23 05/24/23 Primidone [Mysoline] 25 mg PO BID 05/07/23 05/24/23 Previous Rx's Medication Instructions Recorded Aspirin 325 mg PO DAILY #30 tab 06/18/22 Allergies Allergy/AdvReac Type Severity Reaction Status Date / Time No Known Allergies Allergy Verified 05/24/23 07:11 Review of Systems ROS Other: All systems not noted in ROS Statement are negative. <Destiny Ayala - Last Filed: 05/25/23 10:12> ROS Other: All systems not noted in ROS Statement are negative. <Temo Portillo - Last Filed: 05/28/23 23:35> ROS Statement: Those systems with pertinent positive or pertinent negative responses have been documented in the HPI. 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, Ileostomy January 2023, Past Anesthesia/Blood Transfusion Reactions: No Reported Reaction Past Psychological History: Depression Smoking Status: Current every day smoker Past Alcohol Use History: None Reported Past Drug Use History: None Reported - Past Family History Father Family Medical History: Coronary Artery Disease (CAD) Mother Family Medical History: Diabetes Mellitus <Destiny Ayala - Last Filed: 05/25/23 10:12> General Exam Limitations: no limitations <Destiny Ayala - Last Filed: 05/25/23 10:12> General appearance: alert, in no apparent distress Head exam: Present: atraumatic, normocephalic, normal inspection Eye exam: Present: normal appearance, PERRL, EOMI. Absent: scleral icterus, conjunctival injection, periorbital swelling ENT exam: Present: normal exam, mucous membranes moist Neck exam: Present: normal inspection. Absent: tenderness, meningismus, lymphadenopathy Respiratory exam: Present: normal lung sounds bilaterally. Absent: respiratory distress, wheezes, rales, rhonchi, stridor Cardiovascular Exam: Present: regular rate, normal rhythm, normal heart sounds. Absent: systolic murmur, diastolic murmur, rubs, gallop, clicks GI/Abdominal exam: Present: soft, normal bowel sounds. Absent: distended, tenderness, guarding, rebound, rigid Extremities exam: Present: normal inspection, full ROM, normal capillary refill. Absent: tenderness, pedal edema, joint swelling, calf tenderness Back exam: Present: normal inspection Neurological exam: Present: alert, oriented X3, CN II-XII intact Psychiatric exam: Present: normal affect, normal mood Skin exam: Present: warm, dry, intact, normal color. Absent: rash <Temo Portillo - Last Filed: 05/28/23 23:35> - General Exam Comments Initial Comments: General: Alert, in no acute distress, is obese Head: atraumatic normocephalic. Eyes PERRL, EOMI intact, mucous membranes moist Respiratory: Lungs clear to auscultation bilaterally Cardiovascular: Heart rate regular rate and rhythm Abdominal: Soft without guarding or rebound, epigastric tenderness. Ostomy bag with stool output. Site without redness. It does not appear acutely infected Extremities: Normal inspection with full range of motion and normal capillary refill Neuroogic: alert and oriented 3, CN II-XII intact, able to ambulate with steady gait Skin: warm dry and intact with normal color (Vadimuminski,Destiny) Course <Temo Portillo - Last Filed: 05/28/23 23:35> Vital Signs 05/24/23 05/24/23 05/24/23 01:15 06:00 11:00 Temperature 97.7 F Pulse Rate 93 85 92 Respiratory 18 19 18 Rate Blood Pressure 140/73 145/89 152/69 O2 Sat by Pulse 99 94 L 96 Oximetry - Reevaluation(s) Reevaluation #1: Medical records reviewed (Temo Portillo) Reevaluation #2: Patient's pain is improved (Temo Portillo) Reevaluation #3: Patient informed results questions answered (Temo Portillo) Reevaluation #4: 05/28/23 23:32 Was pt. sent in by a medical professional or institution (RAJINDER Burkett, FAMILY DAY CARE PROVIDER, urgent care, hospital, or correction...) When possible be specific @ -no Did you speak to anyone other than the patient for history (EMS, parent, family, police, friend...)? What history was obtained from this source @ -no Did you review nursing and triage notes (agree or disagree)? Why? @ -agree Are old charts reviewed (outside hosp., previous admission, EMS record, old EKG, old radiological studies, urgent care reports/EKG's, correction records)? Report findings @ -yes Differential Diagnosis (chest pain, altered mental status, abdominal pain women, abdominal pain men, vaginal bleeding, weakness, fever, dyspnea, syncope, headache, dizziness, GI bleed, back pain, seizure, CVA, palpatations, mental health, musculoskeletal)? @ -prior EKG interpreted by me (3pts min.). @ -no X-rays interpreted by me (1pt min.). @ -no CT interpreted by me (1pt min.). @ -yes U/S interpreted by me (1pt. min.). @ -no What testing was considered but not performed or refused? (CT, X-rays, U/S, labs)? Why? @ -none What meds were considered but not given or refused? Why? @ -none Did you discuss the management of the patient with other professionals (professionals i.e. , PA, FAMILY DAY CARE PROVIDER, lab, RT, psych nurse, social services director, merchandise shopper, t eacher, fare enforcement officer, watch case polisher)? Give summary @ -no Was smoking cessation discussed for >3mins.? @ -no Was critical care preformed (if so, how long)? @ -no Were there social determinants of health that impacted care today? How? (Homelessness, low income, unemployed, alcoholism, drug addiction, transportation, low edu. Level, literacy, decrease access to med. care, nursing home, rehab)? @ -none Was there de-escalation of care discussed even if they declined (Discuss DNR or withdrawal of care, Hospice)? DNR status @ -no What co-morbidities impacted this encounter? (DM, HTN, Smoking, COPD, CAD, Cancer, CVA, ARF, Chemo, Hep., AIDS, mental health diagnosis, sleep apnea, morbid obesity)? @ -none Was patient admitted / discharged? Hospital course, mention meds given and route, prescriptions, significant lab abnormalities, going to OR and other pertinent info. @ - 68 female to the emergency room today for evaluation severe abdominal pain. Patient does have small bowel obstruction secondary to stomal hernia Undiagnosed new problem with uncertain prognosis? @ -no Drug Therapy requiring intensive monitoring for toxicity (Heparin, Nitro, Insulin, Cardizem)? @ -no Were any procedures done? @ -no Diagnosis/symptom? @ -Small bowel obstruction with stomal hernia Acute, or Chronic, or Acute on Chronic? @ -Acute Uncomplicated (without systemic symptoms) or Complicated (systemic symptoms)? @ -Complicated Side effects of treatment? @ -no Exacerbation, Progression, or Severe Exacerbation? @ -exacerbation Poses a threat to life or bodily function? How? (Chest pain, USA, NC, pneumonia, PE, COPD, DKA, ARF, appy, cholecystitis, CVA, Diverticulitis, Homicidal, Suicidal, threat to staff... and all critical care pts) @ -yes (Temo Portillo) Reevaluation #5: Differential Abdominal Pain Women: Appendicitis, Cholecystitis, diverticulosis, ischemic bowel, pancreatitis, hepatitis, UTI, gastroenteritis, AAA, incarcerated hernia, bowel obstruction, constipation, inflammatory bowel, hepatitis, peptic ulcer disease, splenic infarction, perforated viscus, vulvitis, ovarian torsion, PID, kidney stone, placenta abruption, this is not meant to be an all-inclusive list (Temo Portillo) - Consultations Consultation #1: Spoke with Dr. Rinaldi for Dr. Larsen they will admit this patient (Temo Portillo) Consultation #2: Spoke with Dr. Kennedy he prefers surgery to admit the patient (Temo Portillo) Medical Decision Making - Lab Data Result diagrams: 05/24/23 01:50 05/24/23 01:50 <Destiny Ayala - Last Filed: 05/25/23 10:12> - Lab Data Result diagrams: 05/28/23 07:57 05/28/23 07:57 - Radiology Data Radiology results: report reviewed (CT of the abdomen and pelvis is positive for small bowel obstruction and hernia), image reviewed <Temo Portillo - Last Filed: 05/28/23 23:35> - Medical Decision Making Was pt. sent in by a medical professional or institution (, PA, FAMILY DAY CARE PROVIDER, urgent care, hospital, or correction...) When possible be specific @ -[No] Did you speak to anyone other than the patient for history (EMS, parent, family, police, friend...)? What history was obtained from this source @ -[No] Did you review nursing and triage notes (agree or disagree)? Why? @ -[I reviewed and agree with nursing and triage notes] Were old charts reviewed (outside hosp., previous admission, EMS record, old EKG, old radiological studies, urgent care reports/EKG's, correction records)? Report findings @ -[No old charts were reviewed] Differential Diagnosis (chest pain, altered mental status, abdominal pain women, abdominal pain men, vaginal bleeding, weakness, fever, dyspnea, syncope, headache, dizziness, GI bleed, back pain, seizure, CVA, palpatations, mental health, musculoskeletal)? @ -[not applicable] EKG interpreted by me (3pts min.). @ -[As above] X-rays interpreted by me (1pt min.). @ -[None done] CT interpreted by me (1pt min.). @ -[None done] U/S interpreted by me (1pt. min.). @ -[None done] What testing was considered but not performed or refused? (CT, X-rays, U/S, labs)? Why? @ -[None] What meds were considered but not given or refused? Why? @ -[None] Did you discuss the management of the patient with other professionals (professionals i.e. DrEduar, PA, FAMILY DAY CARE PROVIDER, lab, RT, psych nurse, social services director, merchandise shopper, teacher, fare enforcement officer, watch case polisher)? Give summary @ -[No] Was smoking cessation discussed for >3mins.? @ -[No] Was critical care preformed (if so, how long)? @ -[No] Were there social determinants of health that impacted care today? How? (Homelessness, low income, unemployed, alcoholism, drug addiction, transportation, low edu. Level, literacy, decrease access to med. care, nursing home, rehab)? @ -[No] Was there de-escalation of care discussed even if they declined (Discuss DNR or withdrawal of care, Hospice)? DNR status @ -[No] What co-morbidities impacted this encounter? (DM, HTN, Smoking, COPD, CAD, Cancer, CVA, ARF, Chemo, Hep., AIDS, mental health diagnosis, sleep apnea, morbid obesity)? @ -[None] Was patient admitted / discharged? Hospital course, mention meds given and route, prescriptions, significant lab abnormalities, going to OR and other pertinent info. @ -Disposition pending. This is a pleasant 68-year-old female with an extensive abdominal history who presents to the emergency department with a chief complaint of generalized abdominal pain. Patient had a thorough history and physical exam performed while in the ED. Patient has epigastric tenderness otherwise abdomen is soft without guarding or rebound. Interpreted the following laboratory studies: WBCs 14.9, hemoglobin 12.1, urination studies unremarkable sodium 132 potassium 4.5 BUN 25, creatinine 1.6 glucose 280 initial lactic acid is 2.1. Amylase 39, lipase 73 Covid influenza and RSV negative Patient was given Zofran, GI cocktail, 1 L of IV fluids during the course of the ED. Case discussed with GUILLERMO Kim Who will assume care of the patient pending CT results. (Destiny Ayala) 68 female to the emergency, today for evaluation of abdominal pain severe with small bowel obstruction with stomal hernia (Temo Portillo) - Lab Data Lab Results 05/24/23 05/24/23 05/24/23 Range/Units 01:50 01:50 01:50 WBC 14.9 H (3.8-10.6) k/uL RBC 4.30 (3.80-5.40) m/uL Hgb 12.1 (11.4-16.0) gm/dL Hct 35.4 (34.0-46.0) % MCV 82.4 (80.0-100.0) fL MCH 28.2 (25.0-35.0) pg MCHC 34.2 (31.0-37.0) g/dL RDW 15.4 (11.5-15.5) % Plt Count 186 (150-450) k/uL MPV 7.0 Neutrophils % 74 % Lymphocytes % 17 % Monocytes % 5 % Eosinophils % 3 % Basophils % 0 % Neutrophils # 11.0 H (1.3-7.7) k/uL Lymphocytes # 2.5 (1.0-4.8) k/uL Monocytes # 0.8 (0-1.0) k/uL Eosinophils # 0.4 (0-0.7) k/uL Basophils # 0.0 (0-0.2) k/uL PT (9.0-12.0) sec INR (<1.2) APTT (22.0-30.0) sec Sodium 132 L (137-145) mmol/L Potassium 4.5 (3.5-5.1) mmol/L Chloride 102 (98-107) mmol/L Carbon Dioxide 18 L (22-30) mmol/L Anion Gap 12 mmol/L BUN 25 H (7-17) mg/dL Creatinine 1.16 H (0.52-1.04) mg/dL Est GFR (CKD-EPI)AfAm 56 (>60 ml/min/1.73 sqM) Est GFR (CKD-EPI)NonAf 49 (>60 ml/min/1.73 sqM) Glucose 281 H (74-99) mg/dL Lactic Ac Sepsis Rflx Plasma Lactic Acid Kashif 2.1 H* (0.7-2.0) mmol/L Calcium 9.2 (8.4-10.2) mg/dL Total Bilirubin 0.5 (0.2-1.3) mg/dL AST 24 (14-36) U/L ALT 20 (4-34) U/L Alkaline Phosphatase 111 (38-126) U/L Total Protein 7.5 (6.3-8.2) g/dL Albumin 3.9 (3.5-5.0) g/dL Amylase (30-110) U/L Lipase (23-300) U/L Influenza Type A (PCR) (Not Detectd) Influenza Type B (PCR) (Not Detectd) RSV (PCR) (Not Detectd) SARS-CoV-2 (PCR) (Not Detectd) 05/24/23 05/24/23 05/24/23 Range/Units 01:50 02:08 02:39 WBC (3.8-10.6) k/uL RBC (3.80-5.40) m/uL Hgb (11.4-16.0) gm/dL Hct (34.0-46.0) % MCV (80.0-100.0) fL MCH (25.0-35.0) pg MCHC (31.0-37.0) g/dL RDW (11.5-15.5) % Plt Count (150-450) k/uL MPV Neutrophils % % Lymphocytes % % Monocytes % % Eosinophils % % Basophils % % Neutrophils # (1.3-7.7) k/uL Lymphocytes # (1.0-4.8) k/uL Monocytes # (0-1.0) k/uL Eosinophils # (0-0.7) k/uL Basophils # (0-0.2) k/uL PT (9.0-12.0) sec INR (<1.2) APTT (22.0-30.0) sec Sodium (137-145) mmol/L Potassium (3.5-5.1) mmol/L Chloride (98-107) mmol/L Carbon Dioxide (22-30) mmol/L Anion Gap mmol/L BUN (7-17) mg/dL Creatinine (0.52-1.04) mg/dL Est GFR (CKD-EPI)AfAm (>60 ml/min/1.73 sqM) Est GFR (CKD-EPI)NonAf (>60 ml/min/1.73 sqM) Glucose (74-99) mg/dL Lactic Ac Sepsis Rflx Y Plasma Lactic Acid Kashif (0.7-2.0) mmol/L Calcium (8.4-10.2) mg/dL Total Bilirubin (0.2-1.3) mg/dL AST (14-36) U/L ALT (4-34) U/L Alkaline Phosphatase (38-126) U/L Total Protein (6.3-8.2) g/dL Albumin (3.5-5.0) g/dL Amylase 39 (30-110) U/L Lipase 73 (23-300) U/L Influenza Type A (PCR) Not Detected (Not Detectd) Influenza Type B (PCR) Not Detected (Not Detectd) RSV (PCR) Not Detected (Not Detectd) SARS-CoV-2 (PCR) Not Detected (Not Detectd) 05/24/23 Range/Units 02:39 WBC (3.8-10.6) k/uL RBC (3.80-5.40) m/uL Hgb (11.4-16.0) gm/dL Hct (34.0-46.0) % MCV (80.0-100.0) fL MCH (25.0-35.0) pg MCHC (31.0-37.0) g/dL RDW (11.5-15.5) % Plt Count (150-450) k/uL MPV Neutrophils % % Lymphocytes % % Monocytes % % Eosinophils % % Basophils % % Neutrophils # (1.3-7.7) k/uL Lymphocytes # (1.0-4.8) k/uL Monocytes # (0-1.0) k/uL Eosinophils # (0-0.7) k/uL Basophils # (0-0.2) k/uL PT 10.8 (9.0-12.0) sec INR 1.0 (<1.2) APTT 27.0 (22.0-30.0) sec Sodium (137-145) mmol/L Potassium (3.5-5.1) mmol/L Chloride (98-107) mmol/L Carbon Dioxide (22-30) mmol/L Anion Gap mmol/L BUN (7-17) mg/dL Creatinine (0.52-1.04) mg/dL Est GFR (CKD-EPI)AfAm (>60 ml/min/1.73 sqM) Est GFR (CKD-EPI)NonAf (>60 ml/min/1.73 sqM) Glucose (74-99) mg/dL Lactic Ac Sepsis Rflx Plasma Lactic Acid Kashif (0.7-2.0) mmol/L Calcium (8.4-10.2) mg/dL Total Bilirubin (0.2-1.3) mg/dL AST (14-36) U/L ALT (4-34) U/L Alkaline Phosphatase (38-126) U/L Total Protein (6.3-8.2) g/dL Albumin (3.5-5.0) g/dL Amylase (30-110) U/L Lipase (23-300) U/L Influenza Type A (PCR) (Not Detectd) Influenza Type B (PCR) (Not Detectd) RSV (PCR) (Not Detectd) SARS-CoV-2 (PCR) (Not Detectd) Disposition <Destiny Ayala - Last Filed: 05/25/23 10:12> Is patient prescribed a controlled substance at d/c from ED?: No Time of Disposition: 05:05 <Temo Portillo - Last Filed: 05/28/23 23:35> Clinical Impression: Abdominal pain, Hernia, SBO (small bowel obstruction) Disposition: ADMITTED IP TO THIS HOSP Condition: Fair
[2023-05-24 02:57] LABS: Amylase 39 U/L (30-110); Lipase 73 U/L (23-300)
[2023-05-24 03:06] LABS: Prothrombin Time 10.8 sec (9.0-12.0)
[2023-05-24] MEDS ORDERED: MORPHINE SULFATE 4 MG/ML SYRINGE IVP STA (04:49)
--- NOTE | 2023-05-24 04:50 | CT ---
EXAM: CT Abdomen and Pelvis With Intravenous Contrast CLINICAL HISTORY: ITS.REASON CT Reason: abdominal pain TECHNIQUE: Axial computed tomography images of the abdomen and pelvis with intravenous contrast. CTDI is 34.8 mGy and DLP is 1713 mGy-cm. This CT exam was performed using one or more of the following dose reduction techniques: automated exposure control, adjustment of the mA and/or kV according to patient size, and/or use of iterative reconstruction technique. COMPARISON: No relevant prior studies available. FINDINGS: ABDOMEN: Liver: Unremarkable. Gallbladder and bile ducts: Cholecystectomy. Pancreas: Unremarkable. Spleen: Unremarkable. Adrenals: Unremarkable. Kidneys and ureters: Unremarkable. No obstructing stones. No hydronephrosis. Stomach and bowel: Parastomal hernia containing a knuckle of small bowel with resultant upstream small bowel obstruction. No evidence of strangulation at this time. PELVIS: Appendix: No findings to suggest acute appendicitis. Bladder: Unremarkable. Reproductive: Hysterectomy. ABDOMEN and PELVIS: Intraperitoneal space: Unremarkable. No free air. No significant fluid collection. Bones/joints: No acute fracture. Soft tissues: See above. Vasculature: Unremarkable. Lymph nodes: Unremarkable. IMPRESSION: Parastomal hernia containing a knuckle of small bowel with resultant upstream small bowel obstruction. No evidence of strangulation at this time.
[2023-05-24] MEDS ORDERED: NALOXONE 0.4 MG/ML 1 ML VIAL IV PRN (04:56)
[2023-05-24] MEDS ORDERED: ONDANSETRON 4 MG/2 ML VIAL IVP PRN ×2 (04:57→10:44)
[2023-05-24] MEDS ORDERED: ONDANSETRON 4 MG/2 ML VIAL IVP STA (04:57)
[2023-05-24] MEDS: SODIUM CHLORIDE 0.9% 1,000 ML IV SCH ×3 (05:33→21:07)
[2023-05-24] MEDS: MORPHINE SULFATE 4 MG/ML SYRINGE IVP PRN ×4 (07:31→22:48)
[2023-05-24] MEDS ORDERED: DEXTROSE 50% SYRINGE 50 ML IVP PRN ×4 (08:16→12:37)
--- NOTE | 2023-05-24 08:47 | P.CONS ---
History of Present Illness - Reason for Consult Consult date: 05/24/23 medical management - Chief Complaint abdominal pain - History of Present Illness This is a 60 [id number] female with a known history of diabetes mellitus type 2, COPD, an ischemic bowel, who presented to the emergency department with the chief complaint of acute abdominal pain. Patient reports abdominal pain started earlier yesterday afternoon was very sharp. She did have nausea, but denies any vomiting. She does have a colostomy bag, and is reporting stool output from it. CT of the abdomen showed parastomal hernia containing a knuckle of small bowel with resultant upstream small bowel obstruction, no evidence of strength admission at this time. Patient is seen this morning laying on stretcher in emergency room, she looks uncomfortable, and is still reporting severe abdominal pain. Review of Systems Constitutional: Denies chills, Denies fever Cardiovascular: Denies chest pain, Denies dyspnea on exertion Respiratory: Denies cough, Denies dyspnea Gastrointestinal: Reports abdominal pain, Reports nausea Musculoskeletal: Denies arm numbness/tingling, Denies leg numbness/tingling Neurological: Reports weakness, Denies headaches 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, Ileostomy January 2023, Past Anesthesia/Blood Transfusion Reactions: No Reported Reaction Past Psychological History: Depression Smoking Status: Current every day smoker Past Alcohol Use History: None Reported Past Drug Use History: None Reported - Past Family History Father Family Medical History: Coronary Artery Disease (CAD) Mother Family Medical History: Diabetes Mellitus Medications and Allergies Home Medications Medication Instructions Recorded Confirmed Type Oxybutynin Chloride [oxyBUTYnin 10 mg PO DAILY 08/17/20 05/24/23 History chloride ER] Fluticasone Nasal [place] [Flonase 1 spr EA NOSTRIL HS 09/17/21 05/24/23 History Nasal [place]] Albuterol Inhaler [Ventolin Hfa 2 puff INHALATION RT-QID PRN 12/14/21 05/24/23 History Inhaler] Levothyroxine Sodium 88 mcg PO DAILY 12/14/21 05/24/23 History Atorvastatin [Lipitor] 40 mg PO DAILY 06/16/22 05/24/23 History Cholecalciferol (Vitamin D3) 125 mcg PO DAILY 06/16/22 05/24/23 History [Vitamin D3 (125 MCG = 5,000 IU)] Fluticasone Propion/Salmeterol 1 puff INHALATION RT-BID 06/16/22 05/24/23 History [Advair 500-50 Diskus] Triamcinolone 0.1% Cream [Kenalog 1 applic TOPICAL BID PRN 06/16/22 05/24/23 History 0.1% Cream] Aspirin 325 mg PO DAILY #30 tab 06/18/22 05/24/23 Rx Famotidine [Pepcid] 20 mg PO BID 01/19/23 05/24/23 History Levocetirizine Dihydrochloride 5 mg PO BID 01/19/23 05/24/23 History [Xyzal] FLUoxetine HCL 40 mg PO DAILY 03/31/23 05/24/23 History Gabapentin 800 mg PO TID 03/31/23 05/24/23 History Ibuprofen [Motrin] 600 mg PO Q8HR PRN 03/31/23 05/24/23 History Insulin Glargine,Hum.rec.anlog 55 units SQ BID 03/31/23 05/24/23 History [Lantus Solostar Pen] LORazepam [Ativan] 1 mg PO Q6H PRN 03/31/23 05/24/23 History QUEtiapine [SEROquel] 200 mg PO HS 03/31/23 05/24/23 History metFORMIN HCL 1,000 mg PO BID 03/31/23 05/24/23 History Montelukast [Singulair] 10 mg PO HS 05/07/23 05/24/23 History Primidone [Mysoline] 25 mg PO BID 05/07/23 05/24/23 History Allergies Allergy/AdvReac Type Severity Reaction Status Date / Time No Known Allergies Allergy Verified 05/24/23 07:11 Physical Exam Vitals: Vital Signs Temp Pulse Resp BP Pulse Ox 05/24/23 06:00 85 19 145/89 94 L 05/24/23 01:15 97.7 F 93 18 140/73 99 Intake and Output 05/23/23 05/24/23 05/24/23 22:59 06:59 14:59 Other: Weight 86.183 kg - Constitutional General appearance: cooperative - EENT Eyes: PERRLA - Neck Neck: no lymphadenopathy, normal ROM, no rigidity - Respiratory Respiratory: bilateral: CTA - Cardiovascular Rhythm: regular Heart sounds: normal: S1, S2 - Gastrointestinal General gastrointestinal: soft, tenderness - Integumentary Integumentary: normal, normal turgor - Musculoskeletal Musculoskeletal: generalized weakness - Psychiatric Psychiatric: A&O x's 3, appropriate affect, intact judgment & insight Results CBC & Chem 7: 05/24/23 01:50 05/24/23 01:50 Labs: Abnormal Lab Results - Last 24 Hours (Table) 05/24/23 05/24/23 05/24/23 Range/Units 01:50 01:50 01:50 WBC 14.9 H (3.8-10.6) k/uL Neutrophils # 11.0 H (1.3-7.7) k/uL Sodium 132 L (137-145) mmol/L Carbon Dioxide 18 L (22-30) mmol/L BUN 25 H (7-17) mg/dL Creatinine 1.16 H (0.52-1.04) mg/dL Glucose 281 H (74-99) mg/dL Plasma Lactic Acid Kashif 2.1 H* (0.7-2.0) mmol/L 05/24/23 Range/Units 07:10 WBC (3.8-10.6) k/uL Neutrophils # (1.3-7.7) k/uL Sodium (137-145) mmol/L Carbon Dioxide (22-30) mmol/L BUN (7-17) mg/dL Creatinine (0.52-1.04) mg/dL Glucose (74-99) mg/dL Plasma Lactic Acid Kashif 2.2 H* (0.7-2.0) mmol/L Assessment and Plan (1) Abdominal pain Current Visit: Yes Status: Acute Code(s): R10.9 - UNSPECIFIED ABDOMINAL PAIN SNOMED Code(s): 61401852 (2) Hernia Current Visit: Yes Status: Acute Code(s): K46.9 - UNSPECIFIED ABDOMINAL HERNIA WITHOUT OBSTRUCTION OR GANGRENE SNOMED Code(s): 99387848 (3) SBO (small bowel obstruction) Current Visit: Yes Status: Acute Code(s): K56.609 - UNSP INTESTNL OBST, UNSP TO PARTIAL VERSUS COMPLETE OBST SNOMED Code(s): 054216763 (4) COPD (chronic obstructive pulmonary disease) Current Visit: No Status: Acute Code(s): J44.9 - CHRONIC OBSTRUCTIVE PULMONARY DISEASE, UNSPECIFIED SNOMED Code(s): 79141515 (5) History of below-knee amputation of right lower extremity Current Visit: No Status: Acute Code(s): Z89.511 - ACQUIRED ABSENCE OF RIGHT LEG BELOW KNEE SNOMED Code(s): 926467592062396 (6) Hypertension Current Visit: No Status: Acute Code(s): I10 - ESSENTIAL (PRIMARY) HYPERTENSION SNOMED Code(s): 48824502 (7) Ischemic bowel disease Current Visit: No Status: Acute Code(s): K55.9 - VASCULAR DISORDER OF INTESTINE, UNSPECIFIED SNOMED Code(s): 50232093 (8) Opioid dependence Current Visit: No Status: Acute Code(s): F11.20 - OPIOID DEPENDENCE, UNCOMPLICATED SNOMED Code(s): 61164684 (9) Type 2 diabetes mellitus Current Visit: No Status: Acute Code(s): E11.9 - TYPE 2 DIABETES MELLITUS WITHOUT COMPLICATIONS SNOMED Code(s): 30258859 Plan: Restart insulin, will hold oral medications at this time until evaluated by surgery. Check CBC and CMP in the morning. Patient seen and evaluated by nurse practitioner, physician in agreement with plan
[2023-05-24] MEDS: PANTOPRAZOLE 40 MG/10 ML VIAL IV SCH ×2 (09:31→09:33)
[2023-05-24] MEDS: INSULIN DETEMIR (LEVEMIR) 100 UNIT/ML SYR SQ SCH ×2 (09:33→21:08)
[2023-05-24 09:37] LABS: Glucose,Whole Blood 283 mg/dL (70-110)
--- NOTE | 2023-05-24 12:24 | P.GSHP ---
History of Present Illness H&P Date: 05/24/23 CHIEF COMPLAINT: Abdominal pain HISTORY OF PRESENT ILLNESS: This is a 68-year-old female with a known past medical history of ischemic bowel status post colectomy with end ileostomy on 01/19/2023. Patient also had recent hospitalization on 05/16/2023 for parastomal hernia. At that time it hernia was reducible and ostomy was functioning and had been tolerating diet. Patient reports yesterday her abdominal pain started around her stoma. She had been vomiting. She had a computed tomography scan of the abdomen and pelvis which showed a parastomal hernia containing a knuckle of small bowel with resultant upstream small bowel obstruction. No evidence of strength ablation at that time. Her white count was elevated at 14.9 and lactic acid at 2.2. Patient seen in the ER and was still having vomiting. NG tube had been ordered. PAST MEDICAL HISTORY: See list. PAST SURGICAL HISTORY: See list. MEDICATIONS: See list. ALLERGIES: See list. SOCIAL HISTORY: No illicit drug use. REVIEW OF SYSTEMS: CONSTITUTIONAL: Denies fever or chills. HEENT: Denies blurred vision, vision changes, or eye pain. Denies hemoptysis ENDOCRINE: Denies heat or cold intolerance. CARDIOVASCULAR: Denies chest pain or pressure. RESPIRATORY: No shortness of breath. GASTROINTESTINAL: Please refer to HPI NEURO: Denies history of seizures. PSYCH: No depression or suicidal ideation HEMATOLOGIC: Denies bleeding disorders. LYMPHATIC: The patient denies any lumps and bumps around the neck. GENITOURINARY: Denies any blood in urine or increased urinary frequency. MUSCULOSKELETAL: Denies myalgias. Denies joint swelling. Denies decreased range of motion beyond patients baseline. SKIN: Denies pruitis. Denies rash. PHYSICAL EXAM: VITAL SIGNS: Reviewed GENERAL: Well-developed in no acute distress. HEENT: No sclera icterus. Extraocular movements grossly intact. Moist buccal mucosa. Head is atraumatic, normocephalic. Hears conversational speech. No nasal drainage. NECK: Supple without lymphadenopathy. CHEST: Non-labored respirations and equal bilateral excursions. CARDIOVASCULAR: Palpable 2+ radial pulses. ABDOMEN: Patient has evidence of a parastomal hernia. Tender with palpation. There is stool present in her ileostomy bag. MUSCULOSKELETAL: No clubbing or cyanosis. NEUROLOGIC: No focal or lateralizing signs. Cranial nerves II through XII grossly intact. PSYCH: Appropriate affect. Alert and oriented to person, place and time. SKIN: Well perfused. Good skin turgor. LABORATORY DATA: WBC 14.9 Hgb 12.1 platelets 186 Sodium 132 potassium 4.5 creatinine 1.16 glucose 281 Lactic acid 2.2 down to 2.0 IMAGING: Computed tomography scan findings as stated above ASSESSMENT: 1. Parastomal hernia containing small bowel with resultant upstream small bowel obstruction 2. History of ischemic bowel status post colectomy with end ileostomy 3. Leukocytosis 4. Lactic acidosis 5. History of diabetes mellitus 6. History of COPD PLAN: -Patient scheduled for exploratory laparotomy with ileostomy revision for 05/28/[address] Larsen -NG tube placed for decompression -Keep patient nothing by mouth -Repeat abdominal x-ray today -Consult cardiology for cardiac risk assessment -Continue IV fluids -Diabetes management per medicine service -Continue antiemetics -Continue pain management -DVT prophylaxis Lovenox and GI prophylaxis Protonix Physician Alcohol Still Operator note has been reviewed by physician. Signing provider agrees with the documented findings, assessment, and plan of care. 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, Ileostomy January 2023, Past Anesthesia/Blood Transfusion Reactions: No Reported Reaction Past Psychological History: Depression Smoking Status: Current every day smoker Past Alcohol Use History: None Reported Past Drug Use History: None Reported - Past Family History Father Family Medical History: Coronary Artery Disease (CAD) Mother Family Medical History: Diabetes Mellitus Medications and Allergies Home Medications Medication Instructions Recorded Confirmed Type Oxybutynin Chloride [oxyBUTYnin 10 mg PO DAILY 08/17/20 05/24/23 History chloride ER] Fluticasone Nasal [place] [Flonase 1 spr EA NOSTRIL HS 09/17/21 05/24/23 History Nasal [place]] Albuterol Inhaler [Ventolin Hfa 2 puff INHALATION RT-QID PRN 12/14/21 05/24/23 History Inhaler] Levothyroxine Sodium 88 mcg PO DAILY 12/14/21 05/24/23 History Atorvastatin [Lipitor] 40 mg PO DAILY 06/16/22 05/24/23 History Cholecalciferol (Vitamin D3) 125 mcg PO DAILY 06/16/22 05/24/23 History [Vitamin D3 (125 MCG = 5,000 IU)] Fluticasone Propion/Salmeterol 1 puff INHALATION RT-BID 06/16/22 05/24/23 History [Advair 500-50 Diskus] Triamcinolone 0.1% Cream [Kenalog 1 applic TOPICAL BID PRN 06/16/22 05/24/23 History 0.1% Cream] Aspirin 325 mg PO DAILY #30 tab 06/18/22 05/24/23 Rx Famotidine [Pepcid] 20 mg PO BID 01/19/23 05/24/23 History Levocetirizine Dihydrochloride 5 mg PO BID 01/19/23 05/24/23 History [Xyzal] FLUoxetine HCL 40 mg PO DAILY 03/31/23 05/24/23 History Gabapentin 800 mg PO TID 03/31/23 05/24/23 History Ibuprofen [Motrin] 600 mg PO Q8HR PRN 03/31/23 05/24/23 History Insulin Glargine,Hum.rec.anlog 55 units SQ BID 03/31/23 05/24/23 History [Lantus Solostar Pen] LORazepam [Ativan] 1 mg PO Q6H PRN 03/31/23 05/24/23 History QUEtiapine [SEROquel] 200 mg PO HS 03/31/23 05/24/23 History metFORMIN HCL 1,000 mg PO BID 03/31/23 05/24/23 History Montelukast [Singulair] 10 mg PO HS 05/07/23 05/24/23 History Primidone [Mysoline] 25 mg PO BID 05/07/23 05/24/23 History Allergies Allergy/AdvReac Type Severity Reaction Status Date / Time No Known Allergies Allergy Verified 05/24/23 07:11 Surgical - Exam Vital Signs Temp Pulse Resp BP Pulse Ox 97.7 F 93 18 140/73 99 05/24/23 01:15 05/24/23 01:15 05/24/23 01:15 05/24/23 01:15 05/24/23 01:15 Results - Labs 05/24/23 01:50 05/24/23 01:50 Abnormal Lab Results - Last 24 Hours (Table) 05/24/23 05/24/23 05/24/23 Range/Units 01:50 01:50 01:50 WBC 14.9 H (3.8-10.6) k/uL Neutrophils # 11.0 H (1.3-7.7) k/uL Sodium 132 L (137-145) mmol/L Carbon Dioxide 18 L (22-30) mmol/L BUN 25 H (7-17) mg/dL Creatinine 1.16 H (0.52-1.04) mg/dL Glucose 281 H (74-99) mg/dL POC Glucose (mg/dL) (70-110) mg/dL Plasma Lactic Acid Kashif 2.1 H* (0.7-2.0) mmol/L 05/24/23 05/24/23 Range/Units 07:10 09:35 WBC (3.8-10.6) k/uL Neutrophils # (1.3-7.7) k/uL Sodium (137-145) mmol/L Carbon Dioxide (22-30) mmol/L BUN (7-17) mg/dL Creatinine (0.52-1.04) mg/dL Glucose (74-99) mg/dL POC Glucose (mg/dL) 283 H (70-110) mg/dL Plasma Lactic Acid Kashif 2.2 H* (0.7-2.0) mmol/L Diabetes panel 05/24/23 Range/Units 01:50 Sodium 132 L (137-145) mmol/L Potassium 4.5 (3.5-5.1) mmol/L Chloride 102 (98-107) mmol/L Carbon Dioxide 18 L (22-30) mmol/L BUN 25 H (7-17) mg/dL Creatinine 1.16 H (0.52-1.04) mg/dL Glucose 281 H (74-99) mg/dL Calcium 9.2 (8.4-10.2) mg/dL AST 24 (14-36) U/L ALT 20 (4-34) U/L Alkaline Phosphatase 111 (38-126) U/L Total Protein 7.5 (6.3-8.2) g/dL Albumin 3.9 (3.5-5.0) g/dL Calcium panel 05/24/23 Range/Units 01:50 Calcium 9.2 (8.4-10.2) mg/dL Albumin 3.9 (3.5-5.0) g/dL Pituitary panel 05/24/23 Range/Units 01:50 Sodium 132 L (137-145) mmol/L Potassium 4.5 (3.5-5.1) mmol/L Chloride 102 (98-107) mmol/L Carbon Dioxide 18 L (22-30) mmol/L BUN 25 H (7-17) mg/dL Creatinine 1.16 H (0.52-1.04) mg/dL Glucose 281 H (74-99) mg/dL Calcium 9.2 (8.4-10.2) mg/dL Adrenal panel 05/24/23 Range/Units 01:50 Sodium 132 L (137-145) mmol/L Potassium 4.5 (3.5-5.1) mmol/L Chloride 102 (98-107) mmol/L Carbon Dioxide 18 L (22-30) mmol/L BUN 25 H (7-17) mg/dL Creatinine 1.16 H (0.52-1.04) mg/dL Glucose 281 H (74-99) mg/dL Calcium 9.2 (8.4-10.2) mg/dL Total Bilirubin 0.5 (0.2-1.3) mg/dL AST 24 (14-36) U/L ALT 20 (4-34) U/L Alkaline Phosphatase 111 (38-126) U/L Total Protein 7.5 (6.3-8.2) g/dL Albumin 3.9 (3.5-5.0) g/dL
[2023-05-24 12:33] LABS: Glucose,Whole Blood 272 mg/dL (70-110)
--- NOTE | 2023-05-24 13:49 | P.CRDCN ---
History of Present Illness Consult date: 05/24/23 History of present illness: HISTORY OF PRESENTING ILLNESS Patient is a 68 year old -[place] female with past medical history of hypertension, dyslipidemia, type 2 diabetes, previous smoker, right below-knee amputation due to nonhealing diabetic wound. She does not have any reported cardiac history. Patient underwent a colectomy with ileostomy in January 2023 for ischemic bowel. She was admitted to the hospital on 05/16/2023 for parastomal hernia and concerns of small bowel obstruction with nausea and vomiting. She was treated conservatively with medical management at that time. This time patient presents to the hospital with worsening symptoms of nausea and vomiting. She is admitted with a working diagnosis of small bowel obstruction with concerns of small bowel loops going in parastomal hernia. She's been evaluated by surgical team and cardiology was consulted for perioperative cardiac risk assessment Her older EKG from recent admission is normal sinus rhythm with no significant ST-T wave changes. We don't have any ECG at this time to review CT abdomen showing parastomal hernia containing small bowel with upstream small bowel obstruction. No evidence of stranding relations. Laboratory reviewed, hemoglobin 12.1, BUN 20 creatinine 1.16. Home cardiac medications include aspirin 325 mg daily, atorvastatin 20 mg daily, insulin, levothyroxine, Seroquel, primidone. PRIOR CARDIAC TESTING Echocardiogram from March 2023 shows an EF of 55%, mild LVH, no significant valvular pathology REVIEW OF SYSTEMS 14 point review of system is negative except what is mentioned above in HPI. PHYSICAL EXAMINATION Vital signs reviewed. Head: Normocephalic. Eyes: Sclerae nonicteric. Neck: Brisk carotid upstroke, no jugular venous distention. Lungs: Clear to auscultation. Heart: Regular rate and rhythm, S1-S2, no S3, no murmur or rub. Abdomen: Soft nontender, positive bowel sounds no organomegaly. Extremities: No edema, intact distal pulses. ASSESSMENT Perioperative cardiac risk assessment for possible small bowel obstruction surgery Parastomal hernia with small bowel is an upstream small bowel obstruction Nausea and vomiting due to above Essential hypertension, controlled Type II Diabetes Status post right below-knee amputation Dyslipidemia Prior tobacco smoker History of ischemic bowel status post resection and colostomy 01/2023 PLAN Would recommend to continue atorvastatin 40 mg. continue aspirin 81 mg daily No further cardiac testing needed at this time. Patient would be at moderate risk for a moderate risk procedure without any obvious cardiovascular contraindications at this time. At this time cardiology team will sign off. Please reconsult us in case of any question 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, Ileostomy January 2023, colon removed w/colostomy Past Anesthesia/Blood Transfusion Reactions: No Reported Reaction Past Psychological History: Depression Smoking Status: Former smoker Past Alcohol Use History: None Reported Past Drug Use History: None Reported Additional Drug Use History / Comment(s): Patient states she quit smoking about 1 year ago. - Past Family History Father Family Medical History: Coronary Artery Disease (CAD) Mother Family Medical History: Diabetes Mellitus Medications and Allergies Home Medications Medication Instructions Recorded Confirmed Type Oxybutynin Chloride [oxyBUTYnin 10 mg PO DAILY 08/17/20 05/24/23 History chloride ER] Fluticasone Nasal [place] [Flonase 1 spr EA NOSTRIL HS 09/17/21 05/24/23 History Nasal [place]] Albuterol Inhaler [Ventolin Hfa 2 puff INHALATION RT-QID PRN 12/14/21 05/24/23 History Inhaler] Levothyroxine Sodium 88 mcg PO DAILY 12/14/21 05/24/23 History Atorvastatin [Lipitor] 40 mg PO DAILY 06/16/22 05/24/23 History Cholecalciferol (Vitamin D3) 125 mcg PO DAILY 06/16/22 05/24/23 History [Vitamin D3 (125 MCG = 5,000 IU)] Fluticasone Propion/Salmeterol 1 puff INHALATION RT-BID 06/16/22 05/24/23 History [Advair 500-50 Diskus] Triamcinolone 0.1% Cream [Kenalog 1 applic TOPICAL BID PRN 06/16/22 05/24/23 History 0.1% Cream] Aspirin 325 mg PO DAILY #30 tab 06/18/22 05/24/23 Rx Famotidine [Pepcid] 20 mg PO BID 01/19/23 05/24/23 History Levocetirizine Dihydrochloride 5 mg PO BID 01/19/23 05/24/23 History [Xyzal] FLUoxetine HCL 40 mg PO DAILY 03/31/23 05/24/23 History Gabapentin 800 mg PO TID 03/31/23 05/24/23 History Ibuprofen [Motrin] 600 mg PO Q8HR PRN 03/31/23 05/24/23 History Insulin Glargine,Hum.rec.anlog 55 units SQ BID 03/31/23 05/24/23 History [Lantus Solostar Pen] LORazepam [Ativan] 1 mg PO Q6H PRN 03/31/23 05/24/23 History QUEtiapine [SEROquel] 200 mg PO HS 03/31/23 05/24/23 History metFORMIN HCL 1,000 mg PO BID 03/31/23 05/24/23 History Montelukast [Singulair] 10 mg PO HS 05/07/23 05/24/23 History Primidone [Mysoline] 25 mg PO BID 05/07/23 05/24/23 History Allergies Allergy/AdvReac Type Severity Reaction Status Date / Time No Known Allergies Allergy Verified 05/24/23 07:11 Physical Exam Vitals: Vital Signs Temp Pulse Pulse Resp BP BP Pulse Ox 05/24/23 12:15 98.5 F 92 103 H 18 154/76 146/76 98 05/24/23 11:00 92 18 152/69 96 05/24/23 06:00 85 19 145/89 94 L 05/24/23 01:15 97.7 F 93 18 140/73 99 Intake and Output 05/23/23 05/24/23 05/24/23 22:59 06:59 14:59 Output Total 1750 Balance -1750 Output: Gastric Drainage 1750 Other: Weight 86.183 kg 86.183 kg Results 05/24/23 01:50 05/24/23 01:50 Cardiac Enzymes 05/24/23 Range/Units 01:50 AST 24 (14-36) U/L Coagulation 05/24/23 Range/Units 02:39 PT 10.8 (9.0-12.0) sec APTT 27.0 (22.0-30.0) sec CBC 05/24/23 Range/Units 01:50 WBC 14.9 H (3.8-10.6) k/uL RBC 4.30 (3.80-5.40) m/uL Hgb 12.1 (11.4-16.0) gm/dL Hct 35.4 (34.0-46.0) % Plt Count 186 (150-450) k/uL Comprehensive Metabolic Panel 05/24/23 Range/Units 01:50 Sodium 132 L (137-145) mmol/L Potassium 4.5 (3.5-5.1) mmol/L Chloride 102 (98-107) mmol/L Carbon Dioxide 18 L (22-30) mmol/L BUN 25 H (7-17) mg/dL Creatinine 1.16 H (0.52-1.04) mg/dL Glucose 281 H (74-99) mg/dL Calcium 9.2 (8.4-10.2) mg/dL AST 24 (14-36) U/L ALT 20 (4-34) U/L Alkaline Phosphatase 111 (38-126) U/L Total Protein 7.5 (6.3-8.2) g/dL Albumin 3.9 (3.5-5.0) g/dL Current Medications Generic Name Dose Route Start Last Admin Trade Name Freq PRN Reason Stop Dose Admin Dextrose/Water 25 ml 05/24/23 08:16 Dextrose 50% Syringe 50 Ml IVP PER PROTOCOL PRN Hypoglycemia Protocol Dextrose/Water 50 ml 05/24/23 08:16 Dextrose 50% Syringe 50 Ml IVP PER PROTOCOL PRN Hypoglycemia Protocol Dextrose/Water 25 ml 05/24/23 12:37 Dextrose 50% Syringe 50 Ml IVP PER PROTOCOL PRN Hypoglycemia Protocol Dextrose/Water 50 ml 05/24/23 12:37 Dextrose 50% Syringe 50 Ml IVP PER PROTOCOL PRN Hypoglycemia Protocol Enoxaparin Sodium 30 mg 05/24/23 12:30 Enoxaparin 30 Mg/0.3 Ml Syringe SQ DAILY [facility] Sodium Chloride 1,000 mls @ 130 mls/hr 05/24/23 05:00 05/24/23 05:33 Saline 0.9% IV 130 mls/hr .Q7H42M MAYA Administration Insulin Aspart 0 unit 05/24/23 18:00 Insulin Aspart (Novolog) 100 Unit/Ml Vial SQ Q6HR [facility] Protocol Insulin Detemir 28 unit 05/24/23 09:00 05/24/23 09:33 Insulin Detemir (Levemir) 100 Unit/Ml Syr SQ 28 unit BID@0700,2100 MAYA Administration Morphine Sulfate 4 mg 05/24/23 04:49 05/24/23 11:14 Morphine Sulfate 4 Mg/Ml Syringe IVP 4 mg Q4HR PRN Administration Pain Naloxone HCl 0.2 mg 05/24/23 04:56 Naloxone 0.4 Mg/Ml 1 Ml Vial IV Q2M PRN Opioid Reversal Ondansetron HCl 4 mg 05/24/23 10:44 Ondansetron 4 Mg/2 Ml Vial IVP Q6HR PRN Nausea And Vomiting Pantoprazole Sodium 40 mg 05/24/23 09:00 05/24/23 09:33 Pantoprazole 40 Mg/10 Ml Vial IV 40 mg DAILY MAYA Administration Intake and Output 05/23/23 05/24/23 05/24/23 22:59 06:59 14:59 Output Total 1750 Balance -1750 Output: Gastric Drainage 1750 Other: Weight 86.183 kg 86.183 kg Patient Weight 05/25/23 06:59 Weight 86.183 kg 05/24/23 01:50 05/24/23 01:50
[2023-05-24] MEDS: ENOXAPARIN 30 MG/0.3 ML SYRINGE SQ SCH (13:58)
[2023-05-24 17:34] LABS: Glucose,Whole Blood 204 mg/dL (70-110)
[2023-05-24] MEDS: INSULIN ASPART (NovoLOG) 100 UNIT/ML VIAL SQ SCH (17:51)
[2023-05-24 20:51] LABS: Glucose,Whole Blood 149 mg/dL (70-110)
[2023-05-24] MEDS: diphenhydrAMINE 50 MG/ML 1 ML VIAL IVP PRN (22:47)
[2023-05-24] MEDS ORDERED: LORazepam 2 MG/ML INJ IV PRN (23:23)
[2023-05-24] MEDS: TEMAZEPAM 15 MG CAP PO PRN (23:56)
[2023-05-25 01:11] LABS: Glucose,Whole Blood 119 mg/dL (70-110)
[2023-05-25] MEDS: INSULIN ASPART (NovoLOG) 100 UNIT/ML VIAL SQ SCH ×4 (02:04→17:51)
[2023-05-25] MEDS: SODIUM CHLORIDE 0.9% 1,000 ML IV SCH ×2 (05:47→12:33)
[2023-05-25] MEDS: MORPHINE SULFATE 4 MG/ML SYRINGE IVP PRN ×3 (06:20→18:35)
[2023-05-25] MEDS: diphenhydrAMINE 50 MG/ML 1 ML VIAL IVP PRN ×2 (06:20→17:55)
[2023-05-25 06:37] LABS: Glucose,Whole Blood 79 mg/dL (70-110)
--- NOTE | 2023-05-25 07:27 | XR ---
EXAMINATION TYPE: XR abdomen 2V DATE OF EXAM: 05/24/2023 COMPARISON: CT abdomen pelvis 05/24/2023, abdominal radiograph 02/09/2023 HISTORY: Follow-up on SBO. TECHNIQUE: Upright and supine views of the abdomen were obtained. FINDINGS: Enteric tube demonstrated in appropriate position left upper quadrant. Lower lumbar fusion changes re demonstrated. Contrast demonstrated with the urinary bladder from prior exam. Diffuse small bowel dil atation redemonstrated measuring up to 5.3 cm. Paucity of gas within the large bowel. No pneumoperito neum. IMPRESSION: Continued small bowel obstruction. Continued follow-up is recommended.
[2023-05-25] MEDS: INSULIN DETEMIR (LEVEMIR) 100 UNIT/ML SYR SQ SCH ×2 (08:47→21:41)
--- NOTE | 2023-05-25 09:00 | XR ---
EXAMINATION TYPE: XR abdomen 2V DATE OF EXAM: 05/25/2023 COMPARISON: CT abdomen pelvis 05/24/2023, abdominal radiograph 05/24/2023 HISTORY: Follow-up on SBO. TECHNIQUE: Upright and supine views of the abdomen were obtained. FINDINGS: Interval advancement of enteric tube with distal tip in the region of the gastric antrum/proximal duo denum. Lower lumbar fusion changes redemonstrated. Contrast demonstrated with the urinary bladder fro m prior exam. Diffuse small bowel dilatation redemonstrated measuring up to 5.5 cm. Paucity of gas wi thin the large bowel. No pneumoperitoneum. Visualized lung bases are clear. Cardiomegaly. IMPRESSION: Continued small bowel obstruction. Interval advancement of enteric tube with distal tip in the region of the gastric antrum/proximal duodenum. Continued follow-up is recommended. .
[2023-05-25 10:57] LABS: HCT 30.2 % (37.2-46.3); HGB 9.8 d/dL (12.0-15.0); MCH 27.1 pg (27.0-32.0); MCHC 32.5 d/dL (32.0-37.0); MCV 83.7 FL (80.0-97.0); Mean Platelet Volume 9.7 FL (9.5-12.2); NRBC Per 100 WBC 0 X 10*3/uL (0.00-0.01); Platelet Count 153 X 10*3/uL (140-440); RBC 3.61 X 10*6/uL (4.10-5.20); RDW 15.1 % (11.5-14.5)
[2023-05-25 11:04] LABS: ALT 15 U/L (8-44); AST 15 U/L (13-35); Albumin 3.3 d/dL (3.8-4.9); Albumin/Globulin Ratio 1.22 Ratio (1.60-3.17); Alkaline Phosphatase 83 U/L (41-126); BUN/Creat Ratio 18.56 Ratio (12.00-20.00); Blood Urea Nitrogen 16.7 mg/dL (9.0-27.0); Calcium 8.1 mg/dL (8.7-10.3); Carbon Dioxide 21.5 mmol/L (21.6-31.8); Chloride 106 mmol/L (96-109); Globulin 2.7 d/dL (1.6-3.3); Glucose 66 mg/dL (70-110); Potassium 3.7 mmol/L (3.5-5.5); Sodium 136 mmol/L (135-145); Total Bilirubin 0.3 mg/dL (0.3-1.2)
[2023-05-25] MEDS ORDERED: ALBUTEROL NEBULIZED 2.5 MG/3 ML INHALATION PRN (11:23)
[2023-05-25 11:38] LABS: Glucose,Whole Blood 73 mg/dL (70-110)
[2023-05-25] MEDS: ENOXAPARIN 30 MG/0.3 ML SYRINGE SQ SCH (12:15)
[2023-05-25] MEDS: D5-0.9% NACL WITH KCL 20 MEQ/L 1,000 ML IV SCH (12:49)
--- NOTE | 2023-05-25 13:11 | P.PN ---
Subjective Progress Note Date: 05/25/23 CHIEF COMPLAINT: Abdominal pain HISTORY OF PRESENT ILLNESS: Patient with evidence of small bowel obstruction secondary to parastomal hernia. Patient's abdominal x-ray still showing evidence of small bowel obstruction. Patient still having significant output through the NG tube and its bilious in color. Patient evaluate by cardiology and cleared for surgical intervention. Afebrile. WBC is down from 14-11 Hgb 9.8 PHYSICAL EXAM: VITAL SIGNS: Reviewed GENERAL: Well-developed in no acute distress. HEENT: No sclera icterus. Extraocular movements grossly intact. Moist buccal mucosa. Head is atraumatic, normocephalic. Hears conversational speech. No nasal drainage. NECK: Supple without lymphadenopathy. CHEST: Non-labored respirations and equal bilateral excursions. CARDIOVASCULAR: Palpable 2+ radial pulses. ABDOMEN: Soft. Nondistended. MUSCULOSKELETAL: No clubbing or cyanosis. NEUROLOGIC: No focal or lateralizing signs. Cranial nerves II through XII grossly intact. PSYCH: Appropriate affect. Alert and oriented to person, place and time. SKIN: Well perfused. Good skin turgor. ASSESSMENT: 1. Parastomal hernia containing small bowel with resultant upstream small bowel obstruction 2. History of ischemic bowel status post colectomy with end ileostomy 3. Leukocytosis 4. Lactic acidosis 5. History of diabetes mellitus 6. History of COPD PLAN: -Patient scheduled for exploratory laparotomy and ileostomy revision with Dr. Larsen -Continue NG tube for decompression -Keep patient nothing by mouth except for ice chips -Continue supportive care Physician Wire Inserter note has been reviewed by physician. Signing provider agrees with the documented findings, assessment, and plan of care. Objective - Vital Signs Vital signs: Vital Signs Temp 98.1 F 05/25/23 12:36 Pulse 89 05/25/23 12:36 Resp 18 05/25/23 12:36 BP 164/71 05/25/23 12:36 Pulse Ox 96 05/25/23 12:36 FiO2 Intake & Output 05/24/23 05/25/23 05/25/23 18:59 06:59 18:59 Intake Total 650 Output Total 2150 200 650 Balance -2150 -200 0 Weight 86.183 kg Intake: Intake, IV Titration 650 Amount Sodium Chloride 0.9% 1, 650 000 ml @ 130 mls/hr IV . Q7H42M [facility] Rx#:[id number] Output: Gastric Drainage 1750 600 Stool 400 200 50 Other: Voiding Method Bedside Commode Bedside Commode # Voids 2 1 - Labs CBC & Chem 7: 05/25/23 06:03 05/25/23 06:03 Labs: Abnormal Lab Results - Last 24 Hours (Table) 05/24/23 05/24/23 05/25/23 Range/Units 17:33 20:49 01:10 WBC (4.50-10.00) X 10*3/uL RBC (4.10-5.20) X 10*6/uL Hgb (12.0-15.0) d/dL Hct (37.2-46.3) % RDW (11.5-14.5) % Carbon Dioxide (21.6-31.8) mmol/L Glucose (70-110) mg/dL POC Glucose (mg/dL) 204 H 149 H 119 H (70-110) mg/dL Calcium (8.7-10.3) mg/dL Total Protein (6.2-8.2) d/dL Albumin (3.8-4.9) d/dL Albumin/Globulin Ratio (1.60-3.17) Ratio 05/25/23 05/25/23 Range/Units 06:03 06:03 WBC 11.10 H (4.50-10.00) X 10*3/uL RBC 3.61 L (4.10-5.20) X 10*6/uL Hgb 9.8 L (12.0-15.0) d/dL Hct 30.2 L (37.2-46.3) % RDW 15.1 H (11.5-14.5) % Carbon Dioxide 21.5 L (21.6-31.8) mmol/L Glucose 66 L (70-110) mg/dL POC Glucose (mg/dL) (70-110) mg/dL Calcium 8.1 L (8.7-10.3) mg/dL Total Protein 6.0 L (6.2-8.2) d/dL Albumin 3.3 L (3.8-4.9) d/dL Albumin/Globulin Ratio 1.22 L (1.60-3.17) Ratio
--- NOTE | 2023-05-25 13:43 | CONS ---
CONSULTATION REASON FOR CONSULTATION: Advice regarding COPD and other medical issues requested by surgery. HISTORY OF PRESENT ILLNESS: This is a 68-year-old woman with a past medical history of COPD, diabetes mellitus type 2, was admitted with complaints of abdominal pain. The patient has history of ischemic bowel and surgery previously. The patient presented with small bowel obstruction, possibly secondary to parastomal hernia. There is no history of fever, rigors, or chills. PAST MEDICAL HISTORY: COPD, diabetes mellitus, rest of the history and rest of the chart is also reviewed. HOME MEDICATIONS: Reviewed include metformin, doses and rest of medications reviewed. ALLERGIES: None. FAMILY HISTORY: History of CAD. SOCIAL HISTORY: Current smoking. REVIEW OF SYSTEMS: A 14-point review is negative except as mentioned. PHYSICAL EXAMINATION: VITAL SIGNS: Pulse is 88, blood pressure 150/77, respirations 15. HEENT: Conjunctivae normal. NECK: No jugular venous distention. CARDIOVASCULAR: S1, S2 muffled. RESPIRATIONS: ntd ABDOMEN: Soft, status post NG tube. LEGS: No edema, no swelling. NERVOUS SYSTEM: No focal deficit. LABS: Glucose 60, rest of the labs are noted. ASSESSMENT: 1. Small bowel obstruction secondary to parasternal stomal hernia. 2. History of ischemic colitis and colectomy and ileostomy. 3. Hypoglycemia with diabetes. 4. Chronic obstructive pulmonary disease. 5. Hypertension. RECOMMENDATIONS AND DISCUSSION: This 68-year-old woman presented with multiple complex medical issues, we will monitor the patient closely. Continue current medications, continue symptomatic treatment. Otherwise, we will cut down the dose of Levemir to half the dose and monitor blood pressures closely and DVT prophylaxis. Continue rest of home medications. Follow closely with surgery. Prognosis guarded. Further recommendations to follow. MMODL / IJN: [id number] / MTDD
[2023-05-25 17:48] LABS: Glucose,Whole Blood 123 mg/dL (70-110)
[2023-05-25] MEDS: SYMBICORT 160-4.5 MCG INHALER INHALATION SCH (18:29)
[2023-05-25 20:58] LABS: Glucose,Whole Blood 129 mg/dL (70-110)
[2023-05-25] MEDS: FLUTICASONE 50MCG/SPRAY NASAL 16GM EA NOSTRIL SCH (21:40)
[2023-05-25] MEDS: QUEtiapine 200 MG TAB PO SCH (21:41)
[2023-05-26 01:18] LABS: Glucose,Whole Blood 118 mg/dL (70-110)
[2023-05-26] MEDS: INSULIN ASPART (NovoLOG) 100 UNIT/ML VIAL SQ SCH ×4 (01:18→17:29)
[2023-05-26] MEDS: D5-0.9% NACL WITH KCL 20 MEQ/L 1,000 ML IV SCH ×2 (01:18→14:32)
[2023-05-26 06:06] LABS: Glucose,Whole Blood 92 mg/dL (70-110)
[2023-05-26] MEDS: LEVOTHYROXINE 88 MCG TAB PO SCH (06:47)
[2023-05-26] MEDS: MORPHINE SULFATE 4 MG/ML SYRINGE IVP PRN ×5 (06:52→22:45)
[2023-05-26 07:51] LABS: Glucose,Whole Blood 105 mg/dL (70-110)
[2023-05-26] MEDS: ENOXAPARIN 30 MG/0.3 ML SYRINGE SQ SCH (08:25)
[2023-05-26] MEDS: INSULIN DETEMIR (LEVEMIR) 100 UNIT/ML SYR SQ SCH ×2 (08:25→21:21)
[2023-05-26] MEDS: PANTOPRAZOLE 40 MG/10 ML VIAL IV SCH (08:48)
[2023-05-26] MEDS: SYMBICORT 160-4.5 MCG INHALER INHALATION SCH ×2 (09:31→20:40)
[2023-05-26 09:50] LABS: Basophils # (A) 0.02 X 10*3/uL (0.00-0.10); Basophils % (A) 0.3 %; Eosinophils % (A) 4.1 %; HCT 28.4 % (37.2-46.3); HGB 9.3 d/dL (12.0-15.0); Lymphocytes # (A) 2.16 X 10*3/uL (0.90-5.00); Lymphocytes % (A) 29.6 %; MCHC 32.7 d/dL (32.0-37.0); MCV 82.6 FL (80.0-97.0); Mean Platelet Volume 9.6 FL (9.5-12.2); Monocytes # (A) 0.54 X 10*3/uL (0.20-1.00); Monocytes % (A) 7.4 %; NRBC Per 100 WBC 0 X 10*3/uL (0.00-0.01); Neutrophils # (A) 4.25 X 10*3/uL (1.80-7.70); Neutrophils % (A) 58.3 %; Platelet Count 157 X 10*3/uL (140-440); RBC 3.44 X 10*6/uL (4.10-5.20); RDW 14.7 % (11.5-14.5); WBC 7.29 X 10*3/uL (4.50-10.00)
[2023-05-26 10:16] LABS: BUN/Creat Ratio 10.29 Ratio (12.00-20.00); Blood Urea Nitrogen 7.2 mg/dL (9.0-27.0); Calcium 8.4 mg/dL (8.7-10.3); Carbon Dioxide 21.7 mmol/L (21.6-31.8); Chloride 107 mmol/L (96-109); Glucose 89 mg/dL (70-110); Potassium 3.4 mmol/L (3.5-5.5); Sodium 138 mmol/L (135-145)
[2023-05-26] MEDS: diphenhydrAMINE 50 MG/ML 1 ML VIAL IVP PRN ×2 (10:27→22:46)
[2023-05-26 12:21] LABS: Glucose,Whole Blood 112 mg/dL (70-110)
[2023-05-26] MEDS ORDERED: Potassium Replacement Protocol 1 EACH MISC MISCELLANE PRN (14:37)
[2023-05-26] MEDS ORDERED: Magnesium Replacement Protocol 1 EACH MISC MISCELLANE PRN (14:37)
[2023-05-26] MEDS: POTASSIUM CHLORIDE ER 20 MEQ TAB.ER PO SCH ×2 (16:06→17:34)
[2023-05-26 17:28] LABS: Glucose,Whole Blood 148 mg/dL (70-110)
[2023-05-26] MEDS: TEMAZEPAM 15 MG CAP PO PRN (18:54)
--- NOTE | 2023-05-26 20:16 | PN ---
PROGRESS NOTE DATE OF SERVICE: 05/26/2023 SUBJECTIVE: This is a 68-year-old woman, who was admitted with small bowel obstruction secondary to parastomal hernia, is being treated with NG tube at this point. The patient is scheduled for exploratory laparotomy and ileostomy revision. No chest pain. No palpitations. No fever. OBJECTIVE: VITAL SIGNS: Pulse is 77, blood pressure 147/76, respirations 17. CHEST: Clear to auscultation. CARDIOVASCULAR: S1, S2. ABDOMEN: Soft, nontender. LABORATORY DATA: Hemoglobin 9.3, potassium 3.4. ASSESSMENT: 1. Small bowel obstruction secondary to parastomal hernia. 2. History of ischemic colitis, colectomy and ileostomy. 3. Hypoglycemia and diabetes mellitus type 2. 4. Chronic obstructive pulmonary disease. 5. Hypertension. RECOMMENDATIONS AND DISCUSSION: Recommend to continue current management and continue symptomatic treatment. Repeat current potassium. Continue with IV fluids at current rate. Monitor blood sugars closely. Repeat labs. Further recommendations to follow. MMODL / IJN: [id number] /
[2023-05-26 21:13] LABS: Glucose,Whole Blood 173 mg/dL (70-110)
[2023-05-26] MEDS: FLUTICASONE 50MCG/SPRAY NASAL 16GM EA NOSTRIL SCH (21:20)
[2023-05-26] MEDS: QUEtiapine 200 MG TAB PO SCH (21:21)
[2023-05-27 00:20] LABS: Glucose,Whole Blood 175 mg/dL (70-110)
[2023-05-27] MEDS: INSULIN ASPART (NovoLOG) 100 UNIT/ML VIAL SQ SCH ×6 (00:26→21:41)
--- NOTE | 2023-05-27 06:04 | P.PN ---
Subjective Progress Note Date: 05/26/23 Clinically still has obstruction with output through NG tube. Recommend exlap with ileostomy revision Objective - Vital Signs Vital signs: Vital Signs Temp 97.4 F L 05/27/23 02:00 Pulse 79 05/27/23 02:00 Resp 16 05/27/23 02:00 BP 121/74 05/27/23 02:00 Pulse Ox 96 05/27/23 02:00 FiO2 Intake & Output 05/26/23 05/26/23 05/27/23 06:59 18:59 06:59 Output Total 675 100 Balance -675 -100 Output: Gastric Drainage 675 Stool 100 Other: Voiding Method Bedside Commode Bedside Commode Bedside Commode Diaper Incontinent # Voids 2 - Labs CBC & Chem 7: 05/26/23 05:12 05/26/23 05:12 Labs: Abnormal Lab Results - Last 24 Hours (Table) 05/26/23 05/26/23 05/26/23 Range/Units 05:12 05:12 12:20 RBC 3.44 L (4.10-5.20) X 10*6/uL Hgb 9.3 L (12.0-15.0) d/dL Hct 28.4 L (37.2-46.3) % RDW 14.7 H (11.5-14.5) % Potassium 3.4 L (3.5-5.5) mmol/L BUN 7.2 L (9.0-27.0) mg/dL BUN/Creatinine Ratio 10.29 L (12.00-20.00) Ratio POC Glucose (mg/dL) 112 H (70-110) mg/dL Calcium 8.4 L (8.7-10.3) mg/dL 05/26/23 05/26/23 05/27/23 Range/Units 17:27 21:12 00:19 RBC (4.10-5.20) X 10*6/uL Hgb (12.0-15.0) d/dL Hct (37.2-46.3) % RDW (11.5-14.5) % Potassium (3.5-5.5) mmol/L BUN (9.0-27.0) mg/dL BUN/Creatinine Ratio (12.00-20.00) Ratio POC Glucose (mg/dL) 148 H 173 H 175 H (70-110) mg/dL Calcium (8.7-10.3) mg/dL
[2023-05-27] MEDS: D5-0.9% NACL WITH KCL 20 MEQ/L 1,000 ML IV SCH ×2 (06:21→13:00)
[2023-05-27] MEDS: LEVOTHYROXINE 88 MCG TAB PO SCH (06:21)
[2023-05-27 06:46] LABS: Glucose,Whole Blood 128 mg/dL (70-110)
[2023-05-27] MEDS: INSULIN DETEMIR (LEVEMIR) 100 UNIT/ML SYR SQ SCH ×2 (08:25→21:42)
[2023-05-27] MEDS: PANTOPRAZOLE 40 MG/10 ML VIAL IV SCH (08:26)
[2023-05-27] MEDS: SYMBICORT 160-4.5 MCG INHALER INHALATION SCH ×2 (08:27→20:14)
[2023-05-27] MEDS: ENOXAPARIN 30 MG/0.3 ML SYRINGE SQ SCH (08:58)
[2023-05-27] MEDS ORDERED: NEOSTIGMINE 1 MG/ML 10 ML VIAL ONE (09:08)
[2023-05-27] MEDS ORDERED: KETOROLAC 30 MG/ML 1 ML VIAL ONE (09:08)
[2023-05-27] MEDS ORDERED: LACTATED RINGERS 1,000 ML IV ONE ×2 (09:08→09:35)
[2023-05-27] MEDS ORDERED: MIDAZOLAM 2 MG/2 ML VIAL ONE (09:08)
[2023-05-27] MEDS ORDERED: SUCCINYLCHOLINE CHLORIDE 200 MG/10 ML VIAL IV ONE (09:08)
[2023-05-27] MEDS ORDERED: PROPOFOL 10 MG/ML 20 ML VIAL IV ONE (09:08)
[2023-05-27] MEDS ORDERED: fentaNYL (PF) 50 MCG/ML 2 ML AMP ONE (09:08)
[2023-05-27] MEDS ORDERED: HYDROmorphone (PF) 1 MG/ML ONE (09:08)
[2023-05-27] MEDS ORDERED: LIDOCAINE 2% INJ 20 MG/ML (2 ML VIAL) ONE (09:08)
[2023-05-27] MEDS ORDERED: ROCURONIUM 10 MG/ML (5 ML VIAL) IV ONE (09:08)
[2023-05-27] MEDS ORDERED: GLYCOPYRROLATE 0.2 MG/ML 2 ML VIAL ONE (09:08)
[2023-05-27 11:23] LABS: Glucose,Whole Blood 138 mg/dL (70-110)
--- NOTE | 2023-05-27 11:40 | P.OP ---
Date of Procedure: 05/27/23 Description of Procedure: SURGEON: MARYURI VILLALOBOS MD GAS PROVER: None. PREOPERATIVE DIAGNOSES: 1. 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 Diabetes type 2, insulin-dependent 4. Chronic pain syndrome 5. History of a right ulalu-lgf-gehp amputation 6. Diabetic neuropathy 7. Depressive disorder 8. Obesity due to excess calories, BMI 33.7 9. Hypothyroidism 10. Chronic obstructive pulmonary disease 11. Asthma 12. Tobacco abuse disorder 13. Hyperlipidemia POSTOPERATIVE DIAGNOSES: 1. 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 Diabetes type 2, insulin-dependent 4. Chronic pain syndrome 5. History of a right ruyxy-cgq-nnet amputation 6. Diabetic neuropathy 7. Depressive disorder 8. Obesity due to excess calories, BMI 33.7 9. Hypothyroidism 10. Chronic obstructive pulmonary disease 11. Asthma 12. Tobacco abuse disorder 13. Hyperlipidemia OPERATION: 1. Reduction of small bowel obstruction with ileostomy revision ANESTHESIA: General ESTIMATED BLOOD LOSS: 10 mL. SPECIMENS REMOVED: Ileostomy. COMPLICATIONS: None. FINDINGS: 1. Redundant ileostomy creating mechanical bowel obstruction requiring revision by ostomy site 2. Resection of 5 cm excess ileum with immediate clearance of bowel obstruction after revision INDICATIONS: The patient is a 60-year-old female with previous history of ischemic bowel requiring total abdominal colectomy with an ileostomy 4 months ago. She presented to the hospital with bowel obstruction and parastomal hernia 2 weeks ago and now presents with recurrence. Diagnostic studies demonstrated recurrent bowel obstruction. Despite supportive measures, her bowel obstruction persisted requiring urgent surgical intervention. Benefits and risks of surgical intervention including bleeding, infection, need for repeat ileostomy, and open exploration was reviewed with her and her . Informed consent was obtained. DESCRIPTION OF PROCEDURE: The patient was brought to the operating room, laid in supine position. After general induction, the abdomen was prepped and draped in standard sterile fashion. The ileostomy was dressed using a 4 x 4 and Tegaderm. The rest of the abdomen were prepped and draped in standard sterile fashion. A Garcia catheter was placed. A timeout protocol was confirmed with surgical team regarding the patient's name, including procedure to be performed. Preoperative medications were also given within an hour of incision. DVT prophylaxis had included Lovenox subcutaneously. The dressing around the loop ileostomy was removed. Next, the skin around the ileostomy was incised using a #10 blade. The incision was deepened down to the subcutaneous tissue until the fascia was encountered. Electro-Bovie cautery was used to completely mobilize the ileostomy and deliver the specimen above the abdominal wall. Her CT of the abdomen and pelvis was inspected confirming redundancy of the ileostomy within the subcutaneous tissue as a cause of her bowel obstruction. The specimen was elevated above the abdominal wall of the subcutaneous tissue and the ileostomy, 6 cm was resected using Ethicon powered stapler, 60 mm blue load. The ileostomy was opened and immediate egressed of bile and enteric content occurred confirming complete resolution of bowel obstruction. A small sponge was placed within the lumen allow for maturation of the ileostomy. The ileostomy was fashioned with 3-0 Vicryl interrupted subdermal to mucosa bites at 12:00, 3:00, 6:00 and 9 o'clock position. Similar interrupted sutures were placed at all quadrants with complete maturation of the ileostomy. The skin was cleansed. A Coloplast appliance was cut to 3 cm and placed over the packed ileostomy. Via the Coloplast bag, the packing was removed and immediate egress of bile within her colostomy bag was confirmed. The bag was closed. At the end of the procedure, the needle, sponge, and instrument count was verified correct by the orthodontic laboratory technician. Specimen had included the prior ileostomy. Blood loss was approximately 10 mL. The patient was taken to the postanesthesia care unit in stable condition. The patient's was notified via telephone regarding intraoperative findings and anticipated postoperative care.
--- NOTE | 2023-05-27 14:28 | P.PN ---
Progress Note - Text Progress Note Date: 05/27/23 Ileostomy working. Her pain is well controlled. She is making moderate urine. She tolerated clear liquid diet. No nausea. Disposition 24 hrs after advancing diet.
[2023-05-27 15:18] LABS: Basophils % (A) 0 %; Eosinophils # (A) 0.1 k/uL (0-0.7); Eosinophils % (A) 2 %; HCT 34.8 % (34.0-46.0); HGB 11.3 gm/dL (11.4-16.0); Lymphocytes # (A) 1.6 k/uL (1.0-4.8); Lymphocytes % (A) 22 %; MCH 27.4 pg (25.0-35.0); MCHC 32.4 g/dL (31.0-37.0); MCV 84.4 fL (80.0-100.0); Mean Platelet Volume 6.7; Monocytes # (A) 0.3 k/uL (0-1.0); Monocytes % (A) 4 %; Neutrophils # (A) 5.3 k/uL (1.3-7.7); Neutrophils % (A) 71 %; Platelet Count 168 k/uL (150-450); RBC 4.12 m/uL (3.80-5.40); RDW 15.5 % (11.5-15.5); WBC 7.4 k/uL (3.8-10.6)
[2023-05-27 15:32] LABS: African American GFR (CKD) >90 (>60 ml/min/1.73 sqM); Anion Gap 10 mmol/L; Blood Urea Nitrogen 3 mg/dL (7-17); Calcium 8.9 mg/dL (8.4-10.2); Carbon Dioxide 23 mmol/L (22-30); Chloride 103 mmol/L (98-107); Glucose 210 mg/dL (74-99); Magnesium 1.2 mg/dL (1.6-2.3); Non-African American GFR(CKD) >90 (>60 ml/min/1.73 sqM); Potassium 3.5 mmol/L (3.5-5.1); Sodium 136 mmol/L (137-145)
[2023-05-27] MEDS: MAGNESIUM SULFATE-D5W PMX 1 GM in DEXTROSE/WATER 1 100ML.BAG IVPB SCH ×4 (16:01→20:23)
[2023-05-27] MEDS: POTASSIUM CHLORIDE ER 20 MEQ TAB.ER PO SCH ×2 (16:01→17:04)
[2023-05-27 17:26] LABS: Glucose,Whole Blood 237 mg/dL (70-110)
[2023-05-27] MEDS: MORPHINE SULFATE 4 MG/ML SYRINGE IVP PRN (17:32)
[2023-05-27 19:52] LABS: Glucose,Whole Blood 237 mg/dL (70-110)
[2023-05-27] MEDS: QUEtiapine 200 MG TAB PO SCH (21:41)
[2023-05-27] MEDS ORDERED: ACETAMINOPHEN IV (For NPO) 1,000 MG in EMPTY BAG 1 BAG IVPB STA (21:53)
[2023-05-27] MEDS: FLUTICASONE 50MCG/SPRAY NASAL 16GM EA NOSTRIL SCH (22:01)
[2023-05-27 22:43] LABS: Glucose,Whole Blood 242 mg/dL (70-110)
[2023-05-27] MEDS ORDERED: SODIUM CHLORIDE 0.9% 1,000 ML IV ONE (23:59)
[2023-05-28 01:10] LABS: Basophils % (A) 0 %; Eosinophils # (A) 0.1 k/uL (0-0.7); Eosinophils % (A) 0 %; HCT 31.4 % (34.0-46.0); HGB 10.9 gm/dL (11.4-16.0); Lymphocytes # (A) 0.7 k/uL (1.0-4.8); Lymphocytes % (A) 4 %; MCH 28.5 pg (25.0-35.0); MCHC 34.7 g/dL (31.0-37.0); MCV 82.1 fL (80.0-100.0); Monocytes # (A) 1.1 k/uL (0-1.0); Monocytes % (A) 6 %; Neutrophils # (A) 15.9 k/uL (1.3-7.7); Neutrophils % (A) 89 %; Platelet Count 165 k/uL (150-450); RBC 3.83 m/uL (3.80-5.40); RDW 15.6 % (11.5-15.5); WBC 17.9 k/uL (3.8-10.6)
--- NOTE | 2023-05-28 01:22 | PN ---
PROGRESS NOTE DATE OF SERVICE: 05/27/2023 SUBJECTIVE: This is a 68-year-old woman, who was admitted with small bowel obstruction secondary to parastomal hernia, underwent reduction of small-bowel obstruction with ileostomy revision. No chest pain. No palpitation. OBJECTIVE: VITAL SIGNS: Pulse is 78, blood pressure 116/77, respirations 18. CHEST: Clear to auscultation. CARDIOVASCULAR: S1, S2. ABDOMEN: Soft. NERVOUS SYSTEM: Nonfocal. LABORATORY DATA: Reviewed. ASSESSMENT: 1. Small bowel obstruction secondary to parastomal hernia, status post reduction of small-bowel obstruction with ileostomy revision. 2. History of ischemic colitis, colectomy and ileostomy. 3. Hypoglycemia with diabetes mellitus type 2. 4. Chronic obstructive pulmonary disease. 5. Hypertension. RECOMMENDATIONS AND DISCUSSION: Recommend to continue current management and continue symptomatic treatment. Repeat labs. Otherwise, I recommend continue the current medications. DVT prophylaxis. Further recommendations to follow. MMODL / IJN: [id number] /
[2023-05-28 02:20] LABS: Glucose,Whole Blood 145 mg/dL (70-110)
[2023-05-28 06:11] LABS: Glucose,Whole Blood 135 mg/dL (70-110)
[2023-05-28] MEDS: INSULIN ASPART (NovoLOG) 100 UNIT/ML VIAL SQ SCH ×4 (06:12→20:38)
[2023-05-28] MEDS: LEVOTHYROXINE 88 MCG TAB PO SCH (06:47)
[2023-05-28] MEDS: INSULIN DETEMIR (LEVEMIR) 100 UNIT/ML SYR SQ SCH ×2 (06:47→20:37)
[2023-05-28] MEDS: SYMBICORT 160-4.5 MCG INHALER INHALATION SCH ×2 (08:09→21:25)
--- NOTE | 2023-05-28 08:45 | P.PN ---
Subjective Progress Note Date: 05/28/23 Principal diagnosis: Abdominal pain This is a 68-year-old female with a known history of diabetes mellitus type 2, COPD, and ischemic bowel, who presented to the emergency room with chief complaint of acute abdominal pain. CT of the abdomen showed parastomal hernia containing a medical small bowel with resultant upstream small bowel obstruction. Yesterday patient underwent a reduction of small bowel distraction with ileostomy revision with Dr. Larsen. She tolerated the procedure well. She is currently tolerating a liquid diet. She is seen this morning laying in bed, denies any current concerns. Reports pain is well-controlled. Objective - Vital Signs Vital signs: Vital Signs Temp 98.9 F 05/28/23 08:00 Pulse 85 05/28/23 08:00 Resp 22 05/28/23 08:00 BP 100/56 05/28/23 08:00 Pulse Ox 100 05/28/23 08:00 FiO2 Intake & Output 05/27/23 05/28/23 05/28/23 18:59 06:59 18:59 Intake Total 2825 Output Total 1985 1300 Balance 840 -1300 Intake: IV 2250 Intake, IV Titration 575 Amount D5-0.9% NaCl with KCl 20 375 Meq/l 1,000 ml @ 75 mls/ hr IV .[id number] [facility] Rx#: [id number] Magnesium Sulfate-D5w Pmx 200 1 gm In Dextrose/Water 1 100ml.bag @ 100 mls/hr IVPB Q1H [facility] Rx#: [id number] Output: Urine 1925 900 Uretheral (Garcia) 900 Stool 50 400 Estimated Blood Loss 10 Other: Voiding Method Indwelling Catheter - Constitutional General appearance: Present: cooperative, no acute distress - EENT Eyes: Present: PERRLA - Neck Neck: Present: normal ROM. Absent: lymphadenopathy, rigidity - Respiratory Respiratory: bilateral: CTA - Cardiovascular Rhythm: regular Heart sounds: normal: S1, S2 - Gastrointestinal General gastrointestinal: Present: soft. Absent: tenderness - Integumentary Integumentary: Present: normal, normal turgor - Musculoskeletal Musculoskeletal: Present: generalized weakness - Psychiatric Psychiatric: Present: A&O x's 3, appropriate affect, intact judgment & insight - Labs CBC & Chem 7: 05/28/23 00:27 05/27/23 19:21 Labs: Abnormal Lab Results - Last 24 Hours (Table) 05/27/23 05/27/23 05/27/23 Range/Units 11:22 14:34 14:34 WBC (3.8-10.6) k/uL Hgb 11.3 L (11.4-16.0) gm/dL Hct (34.0-46.0) % RDW (11.5-15.5) % Neutrophils # (1.3-7.7) k/uL Lymphocytes # (1.0-4.8) k/uL Monocytes # (0-1.0) k/uL Sodium 136 L (137-145) mmol/L BUN 3 L (7-17) mg/dL Glucose 210 H (74-99) mg/dL POC Glucose (mg/dL) 138 H (70-110) mg/dL Magnesium 1.2 L (1.6-2.3) mg/dL 05/27/23 05/27/23 05/27/23 Range/Units 17:25 19:51 22:41 WBC (3.8-10.6) k/uL Hgb (11.4-16.0) gm/dL Hct (34.0-46.0) % RDW (11.5-15.5) % Neutrophils # (1.3-7.7) k/uL Lymphocytes # (1.0-4.8) k/uL Monocytes # (0-1.0) k/uL Sodium (137-145) mmol/L BUN (7-17) mg/dL Glucose (74-99) mg/dL POC Glucose (mg/dL) 237 H 237 H 242 H (70-110) mg/dL Magnesium (1.6-2.3) mg/dL 05/28/23 05/28/23 05/28/23 Range/Units 00:27 02:19 06:10 WBC 17.9 H (3.8-10.6) k/uL Hgb 10.9 L (11.4-16.0) gm/dL Hct 31.4 L (34.0-46.0) % RDW 15.6 H (11.5-15.5) % Neutrophils # 15.9 H (1.3-7.7) k/uL Lymphocytes # 0.7 L (1.0-4.8) k/uL Monocytes # 1.1 H (0-1.0) k/uL Sodium (137-145) mmol/L BUN (7-17) mg/dL Glucose (74-99) mg/dL POC Glucose (mg/dL) 145 H 135 H (70-110) mg/dL Magnesium (1.6-2.3) mg/dL Assessment and Plan (1) Abdominal pain Current Visit: Yes Status: Acute Code(s): R10.9 - UNSPECIFIED ABDOMINAL PAIN SNOMED Code(s): 06980198 (2) Hernia Current Visit: Yes Status: Acute Code(s): K46.9 - UNSPECIFIED ABDOMINAL HERNIA WITHOUT OBSTRUCTION OR GANGRENE SNOMED Code(s): 02022483 (3) SBO (small bowel obstruction) Current Visit: Yes Status: Acute Code(s): K56.609 - UNSP INTESTNL OBST, UNSP TO PARTIAL VERSUS COMPLETE OBST SNOMED Code(s): 178864248 (4) COPD (chronic obstructive pulmonary disease) Current Visit: No Status: Acute Code(s): J44.9 - CHRONIC OBSTRUCTIVE PUL MONARY DISEASE, UNSPECIFIED SNOMED Code(s): 11667867 (5) History of below-knee amputation of right lower extremity Current Visit: No Status: Acute Code(s): Z89.511 - ACQUIRED ABSENCE OF RIGHT LEG BELOW KNEE SNOMED Code(s): 811990741828753 (6) Hypertension Current Visit: No Status: Acute Code(s): I10 - ESSENTIAL (PRIMARY) HYPERTENSION SNOMED Code(s): 54391833 (7) Ischemic bowel disease Current Visit: No Status: Acute Code(s): K55.9 - VASCULAR DISORDER OF INTESTINE, UNSPECIFIED SNOMED Code(s): 50944365 (8) Opioid dependence Current Visit: No Status: Acute Code(s): F11.20 - OPIOID DEPENDENCE, UNCOMPL ICATED SNOMED Code(s): 62655728 (9) Type 2 diabetes mellitus Current Visit: No Status: Acute Code(s): E11.9 - TYPE 2 DIABETES MELLITUS WITHOUT COMPLICATIONS SNOMED Code(s): 19309606 Plan: Continue to follow surgeon's postop instructions. Check CBC and CMP in the morning. Patient seen and evaluated by nurse practitioner, physician in agreement with plan
[2023-05-28] MEDS: PANTOPRAZOLE 40 MG/10 ML VIAL IV SCH (09:03)
[2023-05-28] MEDS: ENOXAPARIN 30 MG/0.3 ML SYRINGE SQ SCH (09:03)
--- NOTE | 2023-05-28 10:18 | XR ---
EXAMINATION TYPE: XR abdomen acute w cxr DATE OF EXAM: 05/28/2023 COMPARISON: NONE HISTORY: Pain TECHNIQUE: Single view of the chest and 2 views of the abdomen are submitted. FINDINGS: Single view of the chest fails demonstrate evidence for acute pulmonary disease. There is no evidence for pneumoperitoneum. There are a couple of dilated loops of small bowel left hemiabdomen measuring up to 6.1 cm. Otherwise there is a paucity of gas seen within the distal small bowel and large bowel. Findings could reflect ileus. Low-grade obstruction is difficult to exclude. Progress studies recommended. No sizeable air fluid levels.No mass effects are seen. No unusual calcifications. IMPRESSION: 1. Findings could reflect ileus. Low-grade obstruction is difficult to exclude. Progress studies rec ommended.
[2023-05-28 10:57] LABS: HCT 31.6 % (37.2-46.3); HGB 10.2 d/dL (12.0-15.0); MCHC 32.3 d/dL (32.0-37.0); MCV 83.6 FL (80.0-97.0); Mean Platelet Volume 9.4 FL (9.5-12.2); NRBC Per 100 WBC 0 X 10*3/uL (0.00-0.01); Platelet Count 173 X 10*3/uL (140-440); RBC 3.78 X 10*6/uL (4.10-5.20); WBC 30.46 X 10*3/uL (4.50-10.00)
[2023-05-28 11:08] LABS: Magnesium 1.9 mg/dL (1.5-2.4)
[2023-05-28 11:21] LABS: Blood Urea Nitrogen 6.6 mg/dL (9.0-27.0); Calcium 8.9 mg/dL (8.7-10.3); Carbon Dioxide 22.6 mmol/L (21.6-31.8); Chloride 102 mmol/L (96-109); Glucose 126 mg/dL (70-110); Potassium 4.3 mmol/L (3.5-5.5); Sodium 134 mmol/L (135-145)
[2023-05-28 11:25] LABS: Basophils # (A) 0.12 X 10*3/uL (0.00-0.10); Basophils % (A) 0.4 %; Eosinophils # (A) 0.03 X 10*3/uL (0.04-0.35); Eosinophils % (A) 0.1 %; Lymphocytes # (A) 2.51 X 10*3/uL (0.90-5.00); Lymphocytes % (A) 8.2 %; Monocytes # (A) 2.42 X 10*3/uL (0.20-1.00); Monocytes % (A) 7.9 %; Neutrophils # (A) 25.02 X 10*3/uL (1.80-7.70); Neutrophils % (A) 82.2 %
[2023-05-28 11:26] LABS: RBC Morphology Normal (Normal)
[2023-05-28 11:36] LABS: Glucose,Whole Blood 213 mg/dL (70-110)
[2023-05-28] MEDS: ACETAMINOPHEN TAB 325 MG TAB PO PRN ×2 (11:58→18:13)
[2023-05-28] MEDS: PIPERACILLIN-TAZOBACTAM 3.375 GM in SODIUM CHLORIDE 0.9% 100 ML IVPB SCH ×3 (11:58→23:36)
[2023-05-28] MEDS: MORPHINE SULFATE 4 MG/ML SYRINGE IVP PRN ×2 (11:59→18:55)
--- NOTE | 2023-05-28 12:40 | P.PN ---
Subjective Progress Note Date: 05/28/23 CHIEF COMPLAINT: Abdominal pain HISTORY OF PRESENT ILLNESS: Patient is postop day #1 status post reduction of small bowel obstruction with ileostomy revision. Her ostomy bag is filled with air. She did have vomiting earlier and concerns for possible aspiration. She had been febrile with a temp of 101.2 last night and hasn't been tachycardic. ATEAM was called last night. She also has been hypotensive and did receive a fluid bolus. Currently afebrile. WBC is up from 17.9-30.46 Hgb 10.2 platelets 173 sodium is 134 potassium is 4.3 creatinine 1.2. Blood cultures pending. Patient's being seen by cardiology due to tachycardia PHYSICAL EXAM: VITAL SIGNS: Reviewed GENERAL: Well-developed in no acute distress. HEENT: No sclera icterus. Extraocular movements grossly intact. Moist buccal mucosa. Head is atraumatic, normocephalic. Hears conversational speech. No nasal drainage. NECK: Supple without lymphadenopathy. CHEST: Non-labored respirations and equal bilateral excursions. CARDIOVASCULAR: Palpable 2+ radial pulses. ABDOMEN: Soft. Nondistended. Ileostomy bag with air present MUSCULOSKELETAL: No clubbing or cyanosis. NEUROLOGIC: No focal or lateralizing signs. Cranial nerves II through XII grossly intact. PSYCH: Appropriate affect. Alert and oriented to person, place and time. SKIN: Well perfused. Good skin turgor. ASSESSMENT: 1. 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 Diabetes type 2, insulin-dependent 4. Chronic pain syndrome 5. History of a right dlrpi-zfk-jnmu amputation 6. Diabetic neuropathy 7. Depressive disorder 8. Obesity due to excess calories, BMI 33.7 9. Hypothyroidism 10. Chronic obstructive pulmonary disease 11. Asthma 12. Tobacco abuse disorder 13. Hyperlipidemia PLAN: -Add IV Zosyn due to leukocytosis and fever -Acute abdominal series ordered for fever and concerns for possible aspiration. X-ray results report the findings could reflect ileus. Low-grade obstruction is difficult to exclude. No evidence of acute pulmonary disease. -Repeat labs in a.m. -Incentive spirometer ordered -Encouraged patient to increase activity level -Continue clear liquids -DVT prophylaxis Lovenox Physician Social Insurance Administrator note has been reviewed by physician. Signing provider agrees with the documented findings, assessment, and plan of care. Objective - Vital Signs Vital signs: Vital Signs Temp 98.9 F 05/28/23 08:00 Pulse 85 05/28/23 08:00 Resp 22 05/28/23 08:00 BP 100/56 05/28/23 08:00 Pulse Ox 100 05/28/23 08:00 FiO2 Intake & Output 05/27/23 05/28/23 05/28/23 18:59 06:59 18:59 Intake Total 2825 Output Total 1985 1300 Balance 840 -1300 Intake: IV 2250 Intake, IV Titration 575 Amount D5-0.9% NaCl with KCl 20 375 Meq/l 1,000 ml @ 75 mls/ hr IV .[id number] [facility] Rx#: [id number] Magnesium Sulfate-D5w Pmx 200 1 gm In Dextrose/Water 1 100ml.bag @ 100 mls/hr IVPB Q1H [facility] Rx#: [id number] Output: Urine 1925 900 Uretheral (Garcia) 900 Stool 50 400 Estimated Blood Loss 10 Other: Voiding Method Indwelling Catheter - Labs CBC & Chem 7: 05/28/23 07:57 05/28/23 07:57 Labs: Abnormal Lab Results - Last 24 Hours (Table) 05/27/23 05/27/23 05/27/23 Range/Units 11:22 14:34 14:34 WBC (3.8-10.6) k/uL Hgb 11.3 L (11.4-16.0) gm/dL Hct (34.0-46.0) % RDW (11.5-15.5) % Neutrophils # (1.3-7.7) k/uL Lymphocytes # (1.0-4.8) k/uL Monocytes # (0-1.0) k/uL Sodium 136 L (137-145) mmol/L BUN 3 L (7-17) mg/dL Glucose 210 H (74-99) mg/dL POC Glucose (mg/dL) 138 H (70-110) mg/dL Magnesium 1.2 L (1.6-2.3) mg/dL 05/27/23 05/27/23 05/27/23 Range/Units 17:25 19:51 22:41 WBC (3.8-10.6) k/uL Hgb (11.4-16.0) gm/dL Hct (34.0-46.0) % RDW (11.5-15.5) % Neutrophils # (1.3-7.7) k/uL Lymphocytes # (1.0-4.8) k/uL Monocytes # (0-1.0) k/uL Sodium (137-145) mmol/L BUN (7-17) mg/dL Glucose (74-99) mg/dL POC Glucose (mg/dL) 237 H 237 H 242 H (70-110) mg/dL Magnesium (1.6-2.3) mg/dL 05/28/23 05/28/23 05/28/23 Range/Units 00:27 02:19 06:10 WBC 17.9 H (3.8-10.6) k/uL Hgb 10.9 L (11.4-16.0) gm/dL Hct 31.4 L (34.0-46.0) % RDW 15.6 H (11.5-15.5) % Neutrophils # 15.9 H (1.3-7.7) k/uL Lymphocytes # 0.7 L (1.0-4.8) k/uL Monocytes # 1.1 H (0-1.0) k/uL Sodium (137-145) mmol/L BUN (7-17) mg/dL Glucose (74-99) mg/dL POC Glucose (mg/dL) 145 H 135 H (70-110) mg/dL Magnesium (1.6-2.3) mg/dL
[2023-05-28] MEDS: SODIUM CHLORIDE 0.9% 1,000 ML IV SCH ×2 (12:56→23:36)
[2023-05-28 15:00] VITALS: BMI 33.6
[2023-05-28 16:21] LABS: Glucose,Whole Blood 144 mg/dL (70-110)
[2023-05-28 20:33] LABS: Glucose,Whole Blood 230 mg/dL (70-110)
[2023-05-28] MEDS: QUEtiapine 200 MG TAB PO SCH (20:37)
[2023-05-28] MEDS: FLUTICASONE 50MCG/SPRAY NASAL 16GM EA NOSTRIL SCH (23:34)
[2023-05-29] MEDS: SODIUM CHLORIDE 0.9% 1,000 ML IV SCH ×2 (00:12→19:28)
[2023-05-29] MEDS: ACETAMINOPHEN TAB 325 MG TAB PO PRN ×2 (02:28→11:19)
[2023-05-29] MEDS: MORPHINE SULFATE 4 MG/ML SYRINGE IVP PRN ×4 (02:29→21:33)
--- NOTE | 2023-05-29 06:02 | PN ---
PROGRESS NOTE SUBJECTIVE: Ms. Akosua Yost is a lady, who underwent a surgery performed by Dr. Larsen. She had what seems to be a reduction of small bowel obstruction with ileostomy revision that was performed. She has had a previous history of small bowel obstruction because of parastomal hernia and ileostomy was placed. Her other comorbid conditions include type 2 diabetes, hypertension, right below-knee amputation, diabetic neuropathy, depression, COPD. I was asked to see her mainly because of an episode of hypotension that she had last night. She appears to be somewhat dry. I am recommending that we give her some IV fluids. White count is significantly elevated. I am recovering 2 sets of blood cultures as well and her echo that was performed about 6 months ago revealed normal systolic function. Her last echo was actually in March 2023, which revealed normal LV size and systolic function with normal right atrial size with mild left atrial enlargement and last night's episode of hypotension and tachycardia could be related to hypovolemia, but I am also concerned with elevated white count. OBJECTIVE: VITAL SIGNS: Stable. Heart rate is about 100, blood pressure . CARDIOVASCULAR: S1, S2 heard normally. Slightly tachycardic. Short systolic murmur. LUNGS: Reveal diminished air entry. ABDOMEN: Deferred. I am recommending that we will do 2 sets of blood cultures. Give IV fluids. Check a lactate level and we will inform Dr. Larsen regarding elevated white count and address further issues. MMODL / IJN: [id number] /
[2023-05-29 06:06] LABS: Glucose,Whole Blood 103 mg/dL (70-110)
[2023-05-29] MEDS: INSULIN ASPART (NovoLOG) 100 UNIT/ML VIAL SQ SCH ×4 (06:37→21:06)
[2023-05-29] MEDS: INSULIN DETEMIR (LEVEMIR) 100 UNIT/ML SYR SQ SCH ×2 (06:52→21:06)
[2023-05-29] MEDS: LEVOTHYROXINE 88 MCG TAB PO SCH (06:52)
[2023-05-29] MEDS: PIPERACILLIN-TAZOBACTAM 3.375 GM in SODIUM CHLORIDE 0.9% 100 ML IVPB SCH ×3 (08:09→23:16)
[2023-05-29] MEDS: PANTOPRAZOLE 40 MG/10 ML VIAL IV SCH (08:09)
[2023-05-29] MEDS: ENOXAPARIN 30 MG/0.3 ML SYRINGE SQ SCH (08:09)
[2023-05-29 08:11] LABS: HCT 28.2 % (34.0-46.0); MCH 27.8 pg (25.0-35.0); MCHC 33.1 g/dL (31.0-37.0); MCV 83.8 fL (80.0-100.0); Mean Platelet Volume 6.9; Platelet Count 147 k/uL (150-450); RBC 3.36 m/uL (3.80-5.40); RDW 15.8 % (11.5-15.5); WBC 21.2 k/uL (3.8-10.6)
[2023-05-29 08:23] LABS: HGB 9.3 gm/dL (11.4-16.0)
--- NOTE | 2023-05-29 08:46 | P.PN ---
Subjective Progress Note Date: 05/29/23 Principal diagnosis: Abdominal pain This is a 68-year-old female with a known history of diabetes mellitus type 2, COPD, and ischemic bowel, who presented to the emergency room with chief complaint of acute abdominal pain. CT of the abdomen showed parastomal hernia containing a medical small bowel with resultant upstream small bowel obstruction. Yesterday patient underwent a reduction of small bowel distraction with ileostomy revision with Dr. Larsen. She tolerated the procedure well. She is currently tolerating a liquid diet. She is seen this morning laying in bed, denies any current concerns. Reports pain is well-controlled. 05/29/2023 Patient spiked a fever yesterday and white count was elevated, Zosyn was started. She is seen this morning laying comfortably in bed. She is still on a clear liquid diet. Echo was about to be completed. Objective - Vital Signs Vital signs: Vital Signs Temp 99.6 F 05/29/23 04:00 Pulse 99 05/29/23 04:00 Resp 18 05/29/23 04:00 BP 131/60 05/29/23 04:00 Pulse Ox 100 05/29/23 04:00 FiO2 Intake & Output 05/28/23 05/29/23 05/29/23 18:59 06:59 18:59 Intake Total 120 Output Total 600 700 Balance -480 -700 Weight 86.183 kg Intake: Oral 120 Output: Urine 300 350 Uretheral (Garcia) 350 Stool 300 350 Other: Voiding Method Indwelling Catheter Indwelling Catheter - Constitutional General appearance: Present: cooperative, no acute distress - EENT Eyes: Present: PERRLA - Neck Neck: Present: normal ROM. Absent: lymphadenopathy, rigidity - Respiratory Respiratory: bilateral: CTA - Cardiovascular Rhythm: regular Heart sounds: normal: S1, S2 - Gastrointestinal General gastrointestinal: Present: soft. Absent: tenderness - Integumentary Integumentary: Present: normal, normal turgor - Musculoskeletal Musculoskeletal: Present: generalized weakness - Psychiatric Psychiatric: Present: A&O x's 3, appropriate affect, intact judgment & insight - Labs CBC & Chem 7: 05/29/23 07:39 05/28/23 07:57 Labs: Abnormal Lab Results - Last 24 Hours (Table) 05/28/23 05/28/23 05/28/23 Range/Units 07:57 07:57 11:35 WBC 30.46 H (4.50-10.00) X 10*3/uL RBC 3.78 L (4.10-5.20) X 10*6/uL Hgb 10.2 L (12.0-15.0) d/dL Hct 31.6 L (37.2-46.3) % RDW 15.0 H (11.5-14.5) % Plt Count (150-450) k/uL MPV 9.4 L (9.5-12.2) FL Neutrophils # 25.02 H (1.80-7.70) X 10*3/uL Monocytes # 2.42 H (0.20-1.00) X 10*3/uL Eosinophils # 0.03 L (0.04-0.35) X 10*3/uL Basophils # 0.12 H (0.00-0.10) X 10*3/uL Sodium 134 L (135-145) mmol/L BUN 6.6 L (9.0-27.0) mg/dL Est GFR (CKD-EPI) 49 L (>=60) BUN/Creatinine Ratio 5.50 L (12.00-20.00) Ratio Glucose 126 H (70-110) mg/dL POC Glucose (mg/dL) 213 H (70-110) mg/dL Plasma Lactic Acid Kashif (0.7-2.0) mmol/L 05/28/23 05/28/23 05/28/23 Range/Units 12:33 16:19 20:32 WBC (4.50-10.00) X 10*3/uL RBC (4.10-5.20) X 10*6/uL Hgb (12.0-15.0) d/dL Hct (37.2-46.3) % RDW (11.5-14.5) % Plt Count (150-450) k/uL MPV (9.5-12.2) FL Neutrophils # (1.80-7.70) X 10*3/uL Monocytes # (0.20-1.00) X 10*3/uL Eosinophils # (0.04-0.35) X 10*3/uL Basophils # (0.00-0.10) X 10*3/uL Sodium (135-145) mmol/L BUN (9.0-27.0) mg/dL Est GFR (CKD-EPI) (>=60) BUN/Creatinine Ratio (12.00-20.00) Ratio Glucose (70-110) mg/dL POC Glucose (mg/dL) 144 H 230 H (70-110) mg/dL Plasma Lactic Acid Kashif 2.2 H* (0.7-2.0) mmol/L 05/29/23 Range/Units 07:39 WBC 21.2 H (4.50-10.00) X 10*3/uL RBC 3.36 L (4.10-5.20) X 10*6/uL Hgb 9.3 L D (12.0-15.0) d/dL Hct 28.2 L (37.2-46.3) % RDW 15.8 H (11.5-14.5) % Plt Count 147 L (150-450) k/uL MPV (9.5-12.2) FL Neutrophils # (1.80-7.70) X 10*3/uL Monocytes # (0.20-1.00) X 10*3/uL Eosinophils # (0.04-0.35) X 10*3/uL Basophils # (0.00-0.10) X 10*3/uL Sodium (135-145) mmol/L BUN (9.0-27.0) mg/dL Est GFR (CKD-EPI) (>=60) BUN/Creatinine Ratio (12.00-20.00) Ratio Glucose (70-110) mg/dL POC Glucose (mg/dL) (70-110) mg/dL Plasma Lactic Acid Kashif (0.7-2.0) mmol/L Assessment and Plan (1) Abdominal pain Current Visit: Yes Status: Acute Code(s): R10.9 - UNSPECIFIED ABDOMINAL PAIN SNOMED Code(s): 38238227 (2) Hernia Current Visit: Yes Status: Acute Code(s): K46.9 - UNSPECIFIED ABDOMINAL HERNIA WITHOUT OBSTRUCTION OR GANGRENE SNOMED Code(s): 15342996 (3) SBO (small bowel obstruction) Current Visit: Yes Status: Acute Code(s): K56.609 - UNSP INTESTNL OBST, UNSP TO PARTIAL VERSUS COMPLETE OBST SNOMED Code(s): 437136596 (4) COPD (chronic obstructive pulmonary disease) Current Visit: No Status: Acute Code(s): J44.9 - CHRONIC OBSTRUCTIVE PULMONARY DISEASE, UNSPECIFIED SNOMED Code(s): 01713750 (5) History of below-knee amputation of right lower extremity Current Visit: No Status: Acute Code(s): Z89.511 - ACQUIRED ABSENCE OF RIGHT LEG BELOW KNEE SNOMED Code(s): 893555669234550 (6) Hypertension Current Visit: No Status: Acute Code(s): I10 - ESSENTIAL (PRIMARY) HYPERTENSION SNOMED Code(s): 68500282 (7) Ischemic bowel disease Current Visit: No Status: Acute Code(s): K55.9 - VASCULAR DISORDER OF INTESTINE, UNSPECIFIED SNOMED Code(s): 91320333 (8) Opioid dependence Current Visit: No Status: Acute Code(s): F11.20 - OPIOID DEPENDENCE, UNCOMPLICATED SNOMED Code(s): 74081922 (9) Type 2 diabetes mellitus Current Visit: No Status: Acute Code(s): E11.9 - TYPE 2 DIABETES MELLITUS WITHOUT COMPLICATIONS SNOMED Code(s): 17073151 Plan: Continue to follow surgeon's postop instructions. Check CBC and CMP in the morning. Patient seen and evaluated by nurse practitioner, physician in agreement with plan
[2023-05-29] MEDS: SYMBICORT 160-4.5 MCG INHALER INHALATION SCH ×2 (08:47→21:27)
[2023-05-29 09:22] LABS: ALT 20 U/L (4-34); AST 15 U/L (14-36); African American GFR (CKD) 77 (>60 ml/min/1.73 sqM); Albumin 2.6 g/dL (3.5-5.0); Alkaline Phosphatase 95 U/L (38-126); Anion Gap 8 mmol/L; Blood Urea Nitrogen 13 mg/dL (7-17); Calcium 8.4 mg/dL (8.4-10.2); Carbon Dioxide 21 mmol/L (22-30); Chloride 104 mmol/L (98-107); Glucose 88 mg/dL (74-99); Non-African American GFR(CKD) 67 (>60 ml/min/1.73 sqM); Potassium 3.5 mmol/L (3.5-5.1); Sodium 133 mmol/L (137-145); Total Bilirubin 0.3 mg/dL (0.2-1.3); Total Protein 5.8 g/dL (6.3-8.2)
--- NOTE | 2023-05-29 10:50 | P.PN ---
Subjective Progress Note Date: 05/29/23 CHIEF COMPLAINT: Abdominal pain HISTORY OF PRESENT ILLNESS: Patient is postop day #2 status post reduction of small bowel obstruction with ileostomy revision. Her ostomy bag is functioning. Patient had another fever at 2 AM of 101.7. She denies any abdominal pain. Tolerated clear liquids. Currently afebrile. WBC is down from 30-21.2 Hgb 9.3 platelets 147 peptic acid 2.2 down to 1.2 echo pending PHYSICAL EXAM: VITAL SIGNS: Reviewed GENERAL: Well-developed in no acute distress. HEENT: No sclera icterus. Extraocular movements grossly intact. Moist buccal mucosa. Head is atraumatic, normocephalic. Hears conversational speech. No nasal drainage. NECK: Supple without lymphadenopathy. CHEST: Non-labored respirations and equal bilateral excursions. CARDIOVASCULAR: Palpable 2+ radial pulses. ABDOMEN: Soft. Nondistended. Ileostomy bag with air present MUSCULOSKELETAL: No clubbing or cyanosis. NEUROLOGIC: No focal or lateralizing signs. Cranial nerves II through XII grossly intact. PSYCH: Appropriate affect. Alert and oriented to person, place and time. SKIN: Well perfused. Good skin turgor. ASSESSMENT: 1. 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 Diabetes type 2, insulin-dependent 4. Chronic pain syndrome 5. History of a right rgnkj-cnx-uskl amputation 6. Diabetic neuropathy 7. Depressive disorder 8. Obesity due to excess calories, BMI 33.7 9. Hypothyroidism 10. Chronic obstructive pulmonary disease 11. Asthma 12. Tobacco abuse disorder 13. Hyperlipidemia PLAN: -Advance diet to low fiber -Continue antibiotics -Repeat labs in a.m. -Encouraged Incentive spirometer use -Encouraged patient to increase activity level -DVT prophylaxis Lovenox Physician Wood Cut Engraver note has been reviewed by physician. Signing provider agrees with the documented findings, assessment, and plan of care. Objective - Vital Signs Vital signs: Vital Signs Temp 98.6 F 05/29/23 08:00 Pulse 79 05/29/23 08:00 Resp 18 05/29/23 08:00 BP 135/59 05/29/23 08:00 Pulse Ox 100 05/29/23 08:00 FiO2 Intake & Output 05/28/23 05/29/23 05/29/23 18:59 06:59 18:59 Intake Total 120 465 Output Total 600 700 500 Balance -480 -700 -35 Weight 86.183 kg Intake: Oral 120 465 Output: Urine 300 350 500 Uretheral (Garcia) 350 Stool 300 350 Other: Voiding Method Indwelling Catheter Indwelling Catheter Indwelling Catheter - Labs CBC & Chem 7: 05/29/23 07:39 05/29/23 07:39 Labs: Abnormal Lab Results - Last 24 Hours (Table) 05/28/23 05/28/23 05/28/23 Range/Units 07:57 07:57 11:35 WBC 30.46 H (4.50-10.00) X 10*3/uL RBC 3.78 L (4.10-5.20) X 10*6/uL Hgb 10.2 L (12.0-15.0) d/dL Hct 31.6 L (37.2-46.3) % RDW 15.0 H (11.5-14.5) % Plt Count (150-450) k/uL MPV 9.4 L (9.5-12.2) FL Neutrophils # 25.02 H (1.80-7.70) X 10*3/uL Monocytes # 2.42 H (0.20-1.00) X 10*3/uL Eosinophils # 0.03 L (0.04-0.35) X 10*3/uL Basophils # 0.12 H (0.00-0.10) X 10*3/uL Sodium 134 L (135-145) mmol/L Carbon Dioxide (22-30) mmol/L BUN 6.6 L (9.0-27.0) mg/dL Est GFR (CKD-EPI) 49 L (>=60) BUN/Creatinine Ratio 5.50 L (12.00-20.00) Ratio Glucose 126 H (70-110) mg/dL POC Glucose (mg/dL) 213 H (70-110) mg/dL Plasma Lactic Acid Kashif (0.7-2.0) mmol/L Total Protein (6.3-8.2) g/dL Albumin (3.5-5.0) g/dL 05/28/23 05/28/23 05/28/23 Range/Units 12:33 16:19 20:32 WBC (4.50-10.00) X 10*3/uL RBC (4.10-5.20) X 10*6/uL Hgb (12.0-15.0) d/dL Hct (37.2-46.3) % RDW (11.5-14.5) % Plt Count (150-450) k/uL MPV (9.5-12.2) FL Neutrophils # (1.80-7.70) X 10*3/uL Monocytes # (0.20-1.00) X 10*3/uL Eosinophils # (0.04-0.35) X 10*3/uL Basophils # (0.00-0.10) X 10*3/uL Sodium (135-145) mmol/L Carbon Dioxide (22-30) mmol/L BUN (9.0-27.0) mg/dL Est GFR (CKD-EPI) (>=60) BUN/Creatinine Ratio (12.00-20.00) Ratio Glucose (70-110) mg/dL POC Glucose (mg/dL) 144 H 230 H (70-110) mg/dL Plasma Lactic Acid Kashif 2.2 H* (0.7-2.0) mmol/L Total Protein (6.3-8.2) g/dL Albumin (3.5-5.0) g/dL 05/29/23 05/29/23 Range/Units 07:39 07:39 WBC 21.2 H (4.50-10.00) X 10*3/uL RBC 3.36 L (4.10-5.20) X 10*6/uL Hgb 9.3 L D (12.0-15.0) d/dL Hct 28.2 L (37.2-46.3) % RDW 15.8 H (11.5-14.5) % Plt Count 147 L (150-450) k/uL MPV (9.5-12.2) FL Neutrophils # (1.80-7.70) X 10*3/uL Monocytes # (0.20-1.00) X 10*3/uL Eosinophils # (0.04-0.35) X 10*3/uL Basophils # (0.00-0.10) X 10*3/uL Sodium 133 L (135-145) mmol/L Carbon Dioxide 21 L (22-30) mmol/L BUN (9.0-27.0) mg/dL Est GFR (CKD-EPI) (>=60) BUN/Creatinine Ratio (12.00-20.00) Ratio Glucose (70-110) mg/dL POC Glucose (mg/dL) (70-110) mg/dL Plasma Lactic Acid Kashif (0.7-2.0) mmol/L Total Protein 5.8 L (6.3-8.2) g/dL Albumin 2.6 L (3.5-5.0) g/dL
[2023-05-29 11:26] LABS: Glucose,Whole Blood 139 mg/dL (70-110)
--- NOTE | 2023-05-29 13:00 | CA ---
Transthoracic Echo Report Name: Akosua Yost Age: 68 Gender: F : 1955 Exam Date: 05/29/2023 08:10 Exam Location: [facility] Ht (in): 63 Wt (lb): 190 Ordering Physician: Trey Muir MD ([id number]) Attending/Referring Phys: Laboratory Mechanical Technician Amador Dos Santos Procedure CPT: Indications: low blood pressure Cardiac Hx: Technical Quality: Fair Contrast 1: Total Dose (mL): Contrast 2: Total Dose (mL): MEASUREMENTS (Male / Female) Normal Values 2D ECHO LV Diastolic Diameter PLAX 4.5 cm 4.2 - 5.9 / 3.9 - 5.3 cm LV Systolic Diameter PLAX 3.0 cm IVS Diastolic Thickness 1.3 cm 0.6 - 1.0 / 0.6 - 0.9 cm LVPW Diastolic Thickness 1.2 cm 0.6 - 1.0 / 0.6 - 0.9 cm LV Relative Wall Thickness 0.6 RV Internal Dim ED PLAX 2.6 cm LV Diastolic Volume MOD BP 46.8 cm??? 67 - 155 / 56 - 104 cm??? LV Systolic Volume MOD BP 13.7 cm??? 22 - 58 / 19 - 49 cm??? LV Ejection Fraction MOD BP 70.8 % >= 55 % LV Cardiac Index MOD BP 1296.2 cm???/min???m??? LV Diastolic Volume MOD 4C 57.2 cm??? LV Systolic Volume MOD 4C 15.4 cm??? LV Ejection Fraction MOD 4C 73.0 % LV Cardiac Index MOD 4C 1634.2 cm???/min???m??? LV Diastolic Length 4C 7.0 cm LV Systolic Length 4C 5.8 cm LV Diastolic Volume MOD 2C 36.0 cm??? LV Systolic Volume MOD 2C 11.9 cm??? LV Ejection Fraction MOD 2C 66.8 % LV Cardiac Index MOD 2C 941.8 cm???/min???m??? LV Diastolic Length 2C 6.5 cm LV Systolic Length 2C 5.7 cm DOPPLER AV Peak Velocity 194.0 cm/s AV Peak Gradient 15.0 mmHg AV Mean Velocity 136.7 cm/s AV Mean Gradient 8.3 mmHg AV Velocity Time Integral 40.2 cm AI Peak Velocity 304.0 cm/s AI Peak Gradient 37.0 mmHg AI Pressure Half Time 868.5 ms LVOT Peak Velocity 53.7 cm/s LVOT Peak Gradient 1.2 mmHg LVOT Velocity Time Integral 24.5 cm MV Peak Velocity 154.2 cm/s MV Peak Gradient 9.5 mmHg MV Mean Velocity 79.4 cm/s MV Mean Gradient 3.1 mmHg MV Velocity Time Integral 43.9 cm MR Peak Velocity 265.1 cm/s MR Peak Gradient 28.1 mmHg TR Peak Velocity 238.7 cm/s TR Peak Gradient 22.8 mmHg Right Ventricular Systolic Press 27.8 mmHg FINDINGS Left Ventricle Normal LV size. Mild concentric LVH.left ventricular ejection fraction is estimated at 55-60 %.normal left ventricular wall motion. Right Ventricle Normal right ventricular size and function. Right Atrium Normal right atrial size. Left Atrium Mitral Valve Mild MR.mitral annular calcification. Aortic Valve Aortic valve not well visualized. Mild aortic regurgitation. Tricuspid Valve Tricuspid valve not well visualized. RVSP= 28mmHg.mild tricuspid regurgitation. Pulmonic Valve Pulmonic valve not well visualized. no pulmonic regurgitation. Pericardium No pericardial effusion. Aorta Aortic root and proximal ascending aorta not well visualized. CONCLUSIONS Technically difficult study. 1. Normal left ventricle size and systolic function 2. Limited Doppler study with mild mitral, aortic and tricuspid regurgitation Previewed by: Dr. Rosario Yoon MD (Electronically Signed) Final Date: 29 May 2023 12:59
--- NOTE | 2023-05-29 13:15 | P.PN ---
Subjective Progress Note Date: 05/29/23 History of present illness: This is a 68-year-old female status post surgery with Dr. Rojas for small bowel obstruction with ileostomy revision. She has a previous history of small bowel obstruction because of a parastomal hernia and ileostomy was placed. She also has a past medical history of diabetes mellitus type 2, hypertension, right below the knee amputation, diabetic neuropathy, depression, COPD. We have been on consult for episode of hypotension and patient was found to be somewhat dry recommended IV fluids. Her last echocardiogram in March 2023 revealed normal LV size and systolic function with normal right atrial size with mild left atrial enlargement. Patient was febrile earlier this morning at 101.7., Heart rate in the 70s to 90s. WBC 21.2, hemoglobin 9.3, platelet count and 147. Potassium 3.5, BUN 13 and creatinine 0.89. Physical examination: VS: reviewed LUNGS: Diminished breath sounds. No intercostal retractions. HEART: Regular rate and rhythm. Short systolic murmur. EXTREMITIES: No pedal edema. Right cfeaf-zjl-mahe amputation area NEUROLOGICAL: Patient is awake, alert. Assessment: Hypotension secondary to hypovolemia Small bowel obstruction secondary to parastomal hernia, ileostomy History of ischemic bowel status post total abdominal colectomy with end ileostomy Diabetes mellitus type 2 Right below the knee amputation Hypertension Plan: Continue current cardiac medications, IV fluids or 0.9 normal saline at 50 mL per hour Cardiology will follow on an as-needed basis area please reconsult for any new concerns. Nurse practitioner note has been reviewed, I agree with documented findings and plan of care. Patient was seen and examined. Objective - Vital Signs Vital signs: Vital Signs Temp 98.6 F 05/29/23 08:00 Pulse 79 05/29/23 08:00 Resp 18 05/29/23 08:00 BP 135/59 05/29/23 08:00 Pulse Ox 100 05/29/23 08:00 FiO2 Intake & Output 05/28/23 05/29/23 05/29/23 18:59 06:59 18:59 Intake Total 120 465 Output Total 600 700 500 Balance -480 -700 -35 Weight 86.183 kg Intake: Oral 120 465 Output: Urine 300 350 500 Uretheral (Garcia) 350 Stool 300 350 Other: Voiding Method Indwelling Catheter Indwelling Catheter Indwelling Catheter - Labs CBC & Chem 7: 05/29/23 07:39 05/29/23 07:39 Labs: Abnormal Lab Results - Last 24 Hours (Table) 05/28/23 05/28/23 05/28/23 Range/Units 07:57 07:57 11:35 WBC 30.46 H (4.50-10.00) X 10*3/uL RBC 3.78 L (4.10-5.20) X 10*6/uL Hgb 10.2 L (12.0-15.0) d/dL Hct 31.6 L (37.2-46.3) % RDW 15.0 H (11.5-14.5) % Plt Count (150-450) k/uL MPV 9.4 L (9.5-12.2) FL Neutrophils # 25.02 H (1.80-7.70) X 10*3/uL Monocytes # 2.42 H (0.20-1.00) X 10*3/uL Eosinophils # 0.03 L (0.04-0.35) X 10*3/uL Basophils # 0.12 H (0.00-0.10) X 10*3/uL Sodium 134 L (135-145) mmol/L Carbon Dioxide (22-30) mmol/L BUN 6.6 L (9.0-27.0) mg/dL Est GFR (CKD-EPI) 49 L (>=60) BUN/Creatinine Ratio 5.50 L (12.00-20.00) Ratio Glucose 126 H (70-110) mg/dL POC Glucose (mg/dL) 213 H (70-110) mg/dL Plasma Lactic Acid Kashif (0.7-2.0) mmol/L Total Protein (6.3-8.2) g/dL Albumin (3.5-5.0) g/dL 05/28/23 05/28/23 05/28/23 Range/Units 12:33 16:19 20:32 WBC (4.50-10.00) X 10*3/uL RBC (4.10-5.20) X 10*6/uL Hgb (12.0-15.0) d/dL Hct (37.2-46.3) % RDW (11.5-14.5) % Plt Count (150-450) k/uL MPV (9.5-12.2) FL Neutrophils # (1.80-7.70) X 10*3/uL Monocytes # (0.20-1.00) X 10*3/uL Eosinophils # (0.04-0.35) X 10*3/uL Basophils # (0.00-0.10) X 10*3/uL Sodium (135-145) mmol/L Carbon Dioxide (22-30) mmol/L BUN (9.0-27.0) mg/dL Est GFR (CKD-EPI) (>=60) BUN/Creatinine Ratio (12.00-20.00) Ratio Glucose (70-110) mg/dL POC Glucose (mg/dL) 144 H 230 H (70-110) mg/dL Plasma Lactic Acid Kashif 2.2 H* (0.7-2.0) mmol/L Total Protein (6.3-8.2) g/dL Albumin (3.5-5.0) g/dL 05/29/23 05/29/23 Range/Units 07:39 07:39 WBC 21.2 H (4.50-10.00) X 10*3/uL RBC 3.36 L (4.10-5.20) X 10*6/uL Hgb 9.3 L D (12.0-15.0) d/dL Hct 28.2 L (37.2-46.3) % RDW 15.8 H (11.5-14.5) % Plt Count 147 L (150-450) k/uL MPV (9.5-12.2) FL Neutrophils # (1.80-7.70) X 10*3/uL Monocytes # (0.20-1.00) X 10*3/uL Eosinophils # (0.04-0.35) X 10*3/uL Basophils # (0.00-0.10) X 10*3/uL Sodium 133 L (135-145) mmol/L Carbon Dioxide 21 L (22-30) mmol/L BUN (9.0-27.0) mg/dL Est GFR (CKD-EPI) (>=60) BUN/Creatinine Ratio (12.00-20.00) Ratio Glucose (70-110) mg/dL POC Glucose (mg/dL) (70-110) mg/dL Plasma Lactic Acid Kashif (0.7-2.0) mmol/L Total Protein 5.8 L (6.3-8.2) g/dL Albumin 2.6 L (3.5-5.0) g/dL
[2023-05-29 16:23] LABS: Glucose,Whole Blood 191 mg/dL (70-110)
[2023-05-29] MEDS: diphenhydrAMINE 50 MG/ML 1 ML VIAL IVP PRN (18:45)
[2023-05-29 20:11] LABS: Glucose,Whole Blood 168 mg/dL (70-110)
[2023-05-29] MEDS: FLUTICASONE 50MCG/SPRAY NASAL 16GM EA NOSTRIL SCH (21:06)
[2023-05-29] MEDS: QUEtiapine 200 MG TAB PO SCH (21:07)
[2023-05-30] MEDS: MORPHINE SULFATE 4 MG/ML SYRINGE IVP PRN ×5 (03:57→20:17)
[2023-05-30 06:06] LABS: Glucose,Whole Blood 168 mg/dL (70-110)
[2023-05-30] MEDS: INSULIN DETEMIR (LEVEMIR) 100 UNIT/ML SYR SQ SCH ×2 (06:06→20:18)
[2023-05-30] MEDS: LEVOTHYROXINE 88 MCG TAB PO SCH (06:06)
[2023-05-30] MEDS: INSULIN ASPART (NovoLOG) 100 UNIT/ML VIAL SQ SCH ×4 (06:40→20:19)
[2023-05-30] MEDS: SYMBICORT 160-4.5 MCG INHALER INHALATION SCH ×2 (08:30→20:18)
[2023-05-30] MEDS: ENOXAPARIN 30 MG/0.3 ML SYRINGE SQ SCH (08:37)
[2023-05-30] MEDS: PANTOPRAZOLE 40 MG/10 ML VIAL IV SCH (08:37)
[2023-05-30] MEDS: PIPERACILLIN-TAZOBACTAM 3.375 GM in SODIUM CHLORIDE 0.9% 100 ML IVPB SCH ×2 (08:37→15:09)
[2023-05-30] MEDS: SODIUM CHLORIDE 0.9% 1,000 ML IV SCH (08:38)
[2023-05-30] MEDS: diphenhydrAMINE 50 MG/ML 1 ML VIAL IVP PRN ×2 (08:45→22:20)
[2023-05-30 09:22] LABS: HCT 28.6 % (34.0-46.0); HGB 9.3 gm/dL (11.4-16.0); MCH 27.2 pg (25.0-35.0); MCHC 32.5 g/dL (31.0-37.0); MCV 83.7 fL (80.0-100.0); Mean Platelet Volume 7.2; Platelet Count 141 k/uL (150-450); RBC 3.42 m/uL (3.80-5.40); RDW 15.6 % (11.5-15.5); WBC 15.8 k/uL (3.8-10.6)
[2023-05-30 09:35] LABS: ALT 18 U/L (4-34); AST 16 U/L (14-36); African American GFR (CKD) 81 (>60 ml/min/1.73 sqM); Albumin 2.6 g/dL (3.5-5.0); Alkaline Phosphatase 118 U/L (38-126); Anion Gap 10 mmol/L; Blood Urea Nitrogen 12 mg/dL (7-17); Calcium 8.2 mg/dL (8.4-10.2); Carbon Dioxide 22 mmol/L (22-30); Chloride 103 mmol/L (98-107); Glucose 106 mg/dL (74-99); Non-African American GFR(CKD) 70 (>60 ml/min/1.73 sqM); Potassium 3.2 mmol/L (3.5-5.1); Sodium 135 mmol/L (137-145); Total Bilirubin 0.2 mg/dL (0.2-1.3); Total Protein 5.8 g/dL (6.3-8.2)
[2023-05-30] MEDS: POTASSIUM CHLORIDE ER 20 MEQ TAB.ER PO SCH (09:53)
--- NOTE | 2023-05-30 09:53 | XR ---
EXAMINATION TYPE: XR chest 2V DATE OF EXAM: 05/30/2023 COMPARISON: NONE TECHNIQUE: PA and lateral views submitted. HISTORY: Fever FINDINGS: The lungs are clear and there is no pneumothorax, pleural effusion, or focal pneumonia. Heart size normal and no overt failure. Osseous structures demonstrate hypertrophic and degenerative changes of the spine. Diffuse osteopenia with remote trauma left shoulder and shoulder arthropathy. Bone island overlying the right side. Suspect chronic deformity of the anterior right rib cage. IMPRESSION: 1. No acute process.
[2023-05-30 11:40] LABS: Glucose,Whole Blood 262 mg/dL (70-110)
--- NOTE | 2023-05-30 13:03 | P.PN ---
Subjective Progress Note Date: 05/30/23 CHIEF COMPLAINT: Abdominal pain HISTORY OF PRESENT ILLNESS: Patient is postop day #3 status post reduction of small bowel obstruction with ileostomy revision. Her ostomy is functioning. Patient does report some right-sided abdominal pain. Denies any nausea or vomiting. Was able to tolerate low fiber diet. Currently afebrile. She's had no further fevers. WBC continues to trend down to 15.8 Hgb 9.3 platelet 141 sodium 135 potassium 3.2 creatinine 0.86. Follow-up chest x-ray shows no acute process PHYSICAL EXAM: VITAL SIGNS: Reviewed GENERAL: Well-developed in no acute distress. HEENT: No sclera icterus. Extraocular movements grossly intact. Moist buccal mucosa. Head is atraumatic, normocephalic. Hears conversational speech. No nasal drainage. NECK: Supple without lymphadenopathy. CHEST: Non-labored respirations and equal bilateral excursions. CARDIOVASCULAR: Palpable 2+ radial pulses. ABDOMEN: Soft. Nondistended. Ileostomy bag with stool and air present. Stoma pink MUSCULOSKELETAL: No clubbing or cyanosis. NEUROLOGIC: No focal or lateralizing signs. Cranial nerves II through XII grossly intact. PSYCH: Appropriate affect. Alert and oriented to person, place and time. SKIN: Well perfused. Good skin turgor. ASSESSMENT: 1. 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 Diabetes type 2, insulin-dependent 4. Chronic pain syndrome 5. History of a right [id number] amputation 6. Diabetic neuropathy 7. Depressive disorder 8. Obesity due to excess calories, BMI 33.7 9. Hypothyroidism 10. Chronic obstructive pulmonary disease 11. Asthma 12. Tobacco abuse disorder 13. Hyperlipidemia 14. Hypokalemia 15. Leukocytosis improving PLAN: -Consult ostomy nurse for ostomy care. Discussed with nursing staff to change ileostomy bag -Discontinue Garcia catheter -Continue low fiber diet -Continue antibiotics -Potassium being replaced -Repeat labs in a.m. -Anticipate possible discharge tomorrow -Encouraged Incentive spirometer use -Encouraged patient to increase activity level -DVT prophylaxis Lovenox Physician Rn Gastroenterology note has been reviewed by physician. Signing provider agrees with the documented findings, assessment, and plan of care. Objective - Vital Signs Vital signs: Vital Signs Temp 98.7 F 05/30/23 03:41 Pulse 83 05/30/23 03:41 Resp 16 05/30/23 03:41 BP 113/62 05/30/23 03:41 Pulse Ox 94 L 05/30/23 03:41 FiO2 Intake & Output 05/29/23 05/30/23 05/30/23 18:59 06:59 18:59 Intake Total 1105 240 Output Total 1725 1675 Balance -620 -1675 240 Intake: Oral 1105 240 Output: Urine 1400 1425 Stool 325 250 Other: Voiding Method Indwelling Catheter Indwelling Catheter - Labs CBC & Chem 7: 05/30/23 08:19 05/30/23 08:19 Labs: Abnormal Lab Results - Last 24 Hours (Table) 05/25/23 05/29/23 05/29/23 Range/Units 06:03 11:25 16:20 WBC (3.8-10.6) k/uL RBC (3.80-5.40) m/uL Hgb (11.4-16.0) gm/dL Hct (34.0-46.0) % RDW (11.5-15.5) % Plt Count (150-450) k/uL Sodium (137-145) mmol/L Potassium (3.5-5.1) mmol/L Glucose (74-99) mg/dL POC Glucose (mg/dL) 139 H 191 H (70-110) mg/dL Hemoglobin A1c 7.6 H (<=6.0) % Calcium (8.4-10.2) mg/dL Total Protein (6.3-8.2) g/dL Albumin (3.5-5.0) g/dL 05/29/23 05/30/23 05/30/23 Range/Units 20:08 06:04 08:19 WBC 15.8 H (3.8-10.6) k/uL RBC 3.42 L (3.80-5.40) m/uL Hgb 9.3 L (11.4-16.0) gm/dL Hct 28.6 L (34.0-46.0) % RDW 15.6 H (11.5-15.5) % Plt Count 141 L (150-450) k/uL Sodium (137-145) mmol/L Potassium (3.5-5.1) mmol/L Glucose (74-99) mg/dL POC Glucose (mg/dL) 168 H 168 H (70-110) mg/dL Hemoglobin A1c (<=6.0) % Calcium (8.4-10.2) mg/dL Total Protein (6.3-8.2) g/dL Albumin (3.5-5.0) g/dL 05/30/23 Range/Units 08:19 WBC (3.8-10.6) k/uL RBC (3.80-5.40) m/uL Hgb (11.4-16.0) gm/dL Hct (34.0-46.0) % RDW (11.5-15.5) % Plt Count (150-450) k/uL Sodium 135 L (137-145) mmol/L Potassium 3.2 L (3.5-5.1) mmol/L Glucose 106 H (74-99) mg/dL POC Glucose (mg/dL) (70-110) mg/dL Hemoglobin A1c (<=6.0) % Calcium 8.2 L (8.4-10.2) mg/dL Total Protein 5.8 L (6.3-8.2) g/dL Albumin 2.6 L (3.5-5.0) g/dL Microbiology - Last 24 Hours (Table) 05/28/23 12:33 Blood Culture - Preliminary Blood
--- NOTE | 2023-05-30 13:12 | P.PN ---
Subjective Progress Note Date: 05/30/23 Principal diagnosis: The patient is here essentially for small bowel obstruction with stomal hernia. No new complaints are stated. She is postoperative for repair and doing quite well. No fever or chills. She does have leukocytosis No significant nausea, vomiting or diarrhea stated. No fever or chills. Objective - Vital Signs Vital signs: Vital Signs Temp 98.2 F 05/30/23 12:00 Pulse 77 05/30/23 12:00 Resp 16 05/30/23 12:00 BP 128/68 05/30/23 12:00 Pulse Ox 97 05/30/23 12:00 FiO2 Intake & Output 05/29/23 05/30/23 05/30/23 18:59 06:59 18:59 Intake Total 1105 480 Output Total 1725 1675 1175 Balance -620 -7934 -696 Intake: Oral 1105 480 Output: Urine 1400 1425 975 Stool 325 250 200 Other: Voiding Method Indwelling Catheter Indwelling Catheter External Catheter - Constitutional General appearance: Present: average body habitus - EENT Eyes: Absent: abnormal pupil - Neck Neck: Absent: lymphadenopathy - Respiratory Respiratory: bilateral: CTA - Cardiovascular Rhythm: regular Heart sounds: normal: S1, S2 Abnormal Heart Sounds: Absent: S3 Gallop, S4 Gallop - Gastrointestinal Gastrointestinal Comment(s): Colostomy noted intact with no erythema. General gastrointestinal: Present: soft - Psychiatric Psychiatric: Present: A&O x's 3 - Labs CBC & Chem 7: 05/30/23 08:19 05/30/23 08:19 Labs: Abnormal Lab Results - Last 24 Hours (Table) 05/25/23 05/29/23 05/29/23 Range/Units 06:03 16:20 20:08 WBC (3.8-10.6) k/uL RBC (3.80-5.40) m/uL Hgb (11.4-16.0) gm/dL Hct (34.0-46.0) % RDW (11.5-15.5) % Plt Count (150-450) k/uL Sodium (137-145) mmol/L Potassium (3.5-5.1) mmol/L Glucose (74-99) mg/dL POC Glucose (mg/dL) 191 H 168 H (70-110) mg/dL Hemoglobin A1c 7.6 H (<=6.0) % Calcium (8.4-10.2) mg/dL Total Protein (6.3-8.2) g/dL Albumin (3.5-5.0) g/dL 05/30/23 05/30/23 05/30/23 Range/Units 06:04 08:19 08:19 WBC 15.8 H (3.8-10.6) k/uL RBC 3.42 L (3.80-5.40) m/uL Hgb 9.3 L (11.4-16.0) gm/dL Hct 28.6 L (34.0-46.0) % RDW 15.6 H (11.5-15.5) % Plt Count 141 L (150-450) k/uL Sodium 135 L (137-145) mmol/L Potassium 3.2 L (3.5-5.1) mmol/L Glucose 106 H (74-99) mg/dL POC Glucose (mg/dL) 168 H (70-110) mg/dL Hemoglobin A1c (<=6.0) % Calcium 8.2 L (8.4-10.2) mg/dL Total Protein 5.8 L (6.3-8.2) g/dL Albumin 2.6 L (3.5-5.0) g/dL 05/30/23 Range/Units 11:35 WBC (3.8-10.6) k/uL RBC (3.80-5.40) m/uL Hgb (11.4-16.0) gm/dL Hct (34.0-46.0) % RDW (11.5-15.5) % Plt Count (150-450) k/uL Sodium (137-145) mmol/L Potassium (3.5-5.1) mmol/L Glucose (74-99) mg/dL POC Glucose (mg/dL) 262 H (70-110) mg/dL Hemoglobin A1c (<=6.0) % Calcium (8.4-10.2) mg/dL Total Protein (6.3-8.2) g/dL Albumin (3.5-5.0) g/dL Microbiology - Last 24 Hours (Table) 05/28/23 12:33 Blood Culture - Preliminary Blood Assessment and Plan (1) Hernia Current Visit: Yes Status: Acute Code(s): K46.9 - UNSPECIFIED ABDOMINAL HERNIA WITHOUT OBSTRUCTION OR GANGRENE SNOMED Code(s): 70220980 (2) SBO (small bowel obstruction) Current Visit: Yes Status: Acute Code(s): K56.609 - UNSP INTESTNL OBST, UNSP TO PARTIAL VERSUS COMPLETE OBST SNOMED Code(s): 747146379 (3) At risk for readmission to hospital Current Visit: No Status: Acute Code(s): Z91.89 - OTH PERSONAL RISK FACTORS, NOT ELSEWHERE CLASSIFIED SNOMED Code(s): 6756875139283 (4) COPD (chronic obstructive pulmonary disease) Current Visit: No Status: Acute Code(s): J44.9 - CHRONIC OBSTRUCTIVE PULMONARY DISEASE, UNSPECIFIED SNOMED Code(s): 77295252 (5) Leukocytosis Current Visit: No Status: Acute Code(s): D72.829 - ELEVATED WHITE BLOOD CELL COUNT, UNSPECIFIED SNOMED Code(s): 871605651 Plan: Continue current regimen or treatment. Postop pulmonary toilet with appropriate antibiotic treatment. Leukocytosis. Diabetes which is stable. Continue sliding scale. Check CBC and CMP in a.m.
[2023-05-30 16:21] LABS: Glucose,Whole Blood 204 mg/dL (70-110)
[2023-05-30 20:09] LABS: Glucose,Whole Blood 197 mg/dL (70-110)
[2023-05-30] MEDS: FLUTICASONE 50MCG/SPRAY NASAL 16GM EA NOSTRIL SCH (20:19)
[2023-05-30] MEDS: QUEtiapine 200 MG TAB PO SCH (20:19)
[2023-05-30] MEDS: TEMAZEPAM 15 MG CAP PO PRN (20:19)
[2023-05-31] MEDS: PIPERACILLIN-TAZOBACTAM 3.375 GM in SODIUM CHLORIDE 0.9% 100 ML IVPB SCH ×4 (00:53→23:17)
[2023-05-31] MEDS: MORPHINE SULFATE 4 MG/ML SYRINGE IVP PRN ×6 (00:55→22:03)
[2023-05-31 06:11] LABS: Glucose,Whole Blood 130 mg/dL (70-110)
[2023-05-31] MEDS: INSULIN ASPART (NovoLOG) 100 UNIT/ML VIAL SQ SCH ×4 (06:27→20:21)
[2023-05-31] MEDS: LEVOTHYROXINE 88 MCG TAB PO SCH (06:41)
[2023-05-31] MEDS: INSULIN DETEMIR (LEVEMIR) 100 UNIT/ML SYR SQ SCH ×2 (06:41→20:21)
[2023-05-31] MEDS: SYMBICORT 160-4.5 MCG INHALER INHALATION SCH ×2 (07:55→21:09)
[2023-05-31 08:36] LABS: Basophils % (A) 0 %; Eosinophils # (A) 0.3 k/uL (0-0.7); Eosinophils % (A) 2 %; HCT 31.6 % (34.0-46.0); HGB 10.1 gm/dL (11.4-16.0); Lymphocytes # (A) 1.9 k/uL (1.0-4.8); Lymphocytes % (A) 16 %; MCH 27.1 pg (25.0-35.0); MCHC 31.9 g/dL (31.0-37.0); MCV 85.1 fL (80.0-100.0); Mean Platelet Volume 7.5; Monocytes # (A) 0.5 k/uL (0-1.0); Monocytes % (A) 4 %; Neutrophils # (A) 9.2 k/uL (1.3-7.7); Neutrophils % (A) 76 %; Platelet Count 161 k/uL (150-450); RBC 3.72 m/uL (3.80-5.40); RDW 15.5 % (11.5-15.5); WBC 12.1 k/uL (3.8-10.6)
--- NOTE | 2023-05-31 08:37 | P.PN ---
Subjective Progress Note Date: 05/31/23 Principal diagnosis: Abdominal pain This is a 68-year-old female with a known history of diabetes mellitus type 2, COPD, and ischemic bowel, who presented to the emergency room with chief complaint of acute abdominal pain. CT of the abdomen showed parastomal hernia containing a medical small bowel with resultant upstream small bowel obstruction. Yesterday patient underwent a reduction of small bowel distraction with ileostomy revision with Dr. Larsen. She tolerated the procedure well. She is currently tolerating a liquid diet. She is seen this morning laying in bed, denies any current concerns. Reports pain is well-controlled. 05/29/2023 Patient spiked a fever yesterday and white count was elevated, Zosyn was started. She is seen this morning laying comfortably in bed. She is still on a clear liquid diet. Echo was about to be completed. 05/31/2023 Patient is seen and evaluated laying in bed this morning. Her diet has been advanced and she is tolerating it. Per patient possible discharge today. Patient reports she is feeling well, only mild discomfort in the abdomen. Objective - Vital Signs Vital signs: Vital Signs Temp 98 F 05/31/23 04:00 Pulse 90 05/31/23 04:00 Resp 18 05/31/23 04:00 BP 161/70 05/31/23 04:00 Pulse Ox 98 05/31/23 04:00 FiO2 Intake & Output 05/30/23 05/31/23 05/31/23 18:59 06:59 18:59 Intake Total 720 Output Total 1475 550 Balance -755 -550 Weight 86.183 kg Intake: Oral 720 Output: Urine 1275 550 Stool 200 Other: Voiding Method External Catheter External Catheter # Voids 1 # Bowel Movements 1 - Constitutional General appearance: Present: cooperative, no acute distress - EENT Eyes: Present: PERRLA - Neck Neck: Present: normal ROM. Absent: lymphadenopathy, rigidity - Respiratory Respiratory: bilateral: CTA - Cardiovascular Rhythm: regular Heart sounds: normal: S1, S2 - Gastrointestinal General gastrointestinal: Present: soft. Absent: tenderness - Integumentary Integumentary: Present: normal, normal turgor - Psychiatric Psychiatric: Present: A&O x's 3, appropriate affect, intact judgment & insight - Labs CBC & Chem 7: 05/30/23 08:19 05/30/23 08:19 Labs: Abnormal Lab Results - Last 24 Hours (Table) 05/30/23 05/30/23 05/30/23 Range/Units 08:19 08:19 11:35 WBC 15.8 H (3.8-10.6) k/uL RBC 3.42 L (3.80-5.40) m/uL Hgb 9.3 L (11.4-16.0) gm/dL Hct 28.6 L (34.0-46.0) % RDW 15.6 H (11.5-15.5) % Plt Count 141 L (150-450) k/uL Sodium 135 L (137-145) mmol/L Potassium 3.2 L (3.5-5.1) mmol/L Glucose 106 H (74-99) mg/dL POC Glucose (mg/dL) 262 H (70-110) mg/dL Calcium 8.2 L (8.4-10.2) mg/dL Total Protein 5.8 L (6.3-8.2) g/dL Albumin 2.6 L (3.5-5.0) g/dL 05/30/23 05/30/23 05/31/23 Range/Units 16:20 20:08 06:09 WBC (3.8-10.6) k/uL RBC (3.80-5.40) m/uL Hgb (11.4-16.0) gm/dL Hct (34.0-46.0) % RDW (11.5-15.5) % Plt Count (150-450) k/uL Sodium (137-145) mmol/L Potassium (3.5-5.1) mmol/L Glucose (74-99) mg/dL POC Glucose (mg/dL) 204 H 197 H 130 H (70-110) mg/dL Calcium (8.4-10.2) mg/dL Total Protein (6.3-8.2) g/dL Albumin (3.5-5.0) g/dL Microbiology - Last 24 Hours (Table) 05/28/23 12:33 Blood Culture - Preliminary Blood Assessment and Plan (1) Abdominal pain Current Visit: Yes Status: Acute Code(s): R10.9 - UNSPECIFIED ABDOMINAL PAIN SNOMED Code(s): 64093127 (2) Hernia Current Visit: Yes Status: Acute Code(s): K46.9 - UNSPECIFIED ABDOMINAL HERNIA WITHOUT OBSTRUCTION OR GANGRENE SNOMED Code(s): 22067569 (3) SBO (small bowel obstruction) Current Visit: Yes Status: Acute Code(s): K56.609 - UNSP INTESTNL OBST, UNSP TO PARTIAL VERSUS COMPLETE OBST SNOMED Code(s): 967732267 (4) COPD (chronic obstructive pulmonary disease) Current Visit: No Status: Acute Code(s): J44.9 - CHRONIC OBSTRUCTIVE PULMONARY DISEASE, UNSPECIFIED SNOMED Code(s): 22297264 (5) History of below-knee amputation of right lower extremity Current Visit: No Status: Acute Code(s): Z89.511 - ACQUIRED ABSENCE OF RIGHT LEG BELOW KNEE SNOMED Code(s): 984211719751286 (6) Hypertension Current Visit: No Status: Acute Code(s): I10 - ESSENTIAL (PRIMARY) HYPERTENSION SNOMED Code(s): 50425497 (7) Ischemic bowel disease Current Visit: No Status: Acute Code(s): K55.9 - VASCULAR DISORDER OF INTESTINE, UNSPECIFIED SNOMED Code(s): 10206832 (8) Opioid dependence Current Visit: No Status: Acute Code(s): F11.20 - OPIOID DEPENDENCE, UNCOMPLICATED SNOMED Code(s): 17428517 (9) Type 2 diabetes mellitus Current Visit: No Status: Acute Code(s): E11.9 - TYPE 2 DIABETES MELLITUS WITHOUT COMPLICATIONS SNOMED Code(s): 52744639 Plan: Patient is cleared from a medical standpoint for discharge when surgeon clears her. Patient seen and evaluated by nurse practitioner, physician in agreement with plan
[2023-05-31 08:43] LABS: African American GFR (CKD) 87 (>60 ml/min/1.73 sqM); Anion Gap 10 mmol/L; Blood Urea Nitrogen 9 mg/dL (7-17); Calcium 8.6 mg/dL (8.4-10.2); Carbon Dioxide 21 mmol/L (22-30); Chloride 103 mmol/L (98-107); Glucose 122 mg/dL (74-99); Non-African American GFR(CKD) 75 (>60 ml/min/1.73 sqM); Potassium 3.7 mmol/L (3.5-5.1); Sodium 134 mmol/L (137-145)
[2023-05-31] MEDS: PANTOPRAZOLE 40 MG/10 ML VIAL IV SCH (08:43)
[2023-05-31] MEDS: ENOXAPARIN 30 MG/0.3 ML SYRINGE SQ SCH (08:44)
[2023-05-31] MEDS: diphenhydrAMINE 50 MG/ML 1 ML VIAL IVP PRN ×3 (08:44→20:59)
[2023-05-31 11:22] LABS: Glucose,Whole Blood 170 mg/dL (70-110)
[2023-05-31] MEDS: SODIUM CHLORIDE 0.9% 1,000 ML IV SCH (12:05)
--- NOTE | 2023-05-31 15:29 | P.PN ---
Subjective Progress Note Date: 05/31/23 CHIEF COMPLAINT: Abdominal pain HISTORY OF PRESENT ILLNESS: Patient is postop day #4 status post reduction of small bowel obstruction with ileostomy revision. Her ostomy is functioning. Patient does report improvement in her abdominal pain. Ostomy has been changed. Afebrile. White count continues trending down from 15-12.1 . Garcia catheter removed yesterday PHYSICAL EXAM: VITAL SIGNS: Reviewed GENERAL: Well-developed in no acute distress. HEENT: No sclera icterus. Extraocular movements grossly intact. Moist buccal mucosa. Head is atraumatic, normocephalic. Hears conversational speech. No nasal drainage. NECK: Supple without lymphadenopathy. CHEST: Non-labored respirations and equal bilateral excursions. CARDIOVASCULAR: Palpable 2+ radial pulses. ABDOMEN: Soft. Nondistended. Ileostomy bag with stool and air present. Stoma pink MUSCULOSKELETAL: No clubbing or cyanosis. NEUROLOGIC: No focal or lateralizing signs. Cranial nerves II through XII grossly intact. PSYCH: Appropriate affect. Alert and oriented to person, place and time. SKIN: Well perfused. Good skin turgor. ASSESSMENT: 1. 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 Diabetes type 2, insulin-dependent 4. Chronic pain syndrome 5. History of a right xpvkw-tvz-[id number] amputation 6. Diabetic neuropathy 7. Depressive disorder 8. Obesity due to excess calories, BMI 33.7 9. Hypothyroidism 10. Chronic obstructive pulmonary disease 11. Asthma 12. Tobacco abuse disorder 13. Hyperlipidemia 14. Hypokalemia 15. Leukocytosis improving PLAN: -Anticipate discharge tomorrow -Change diet to regular. Patient did not like the low fiber diet -Continue antibiotics -Repeat CBC in a.m. -Encouraged Incentive spirometer use -Encouraged patient to increase activity level -DVT prophylaxis Lovenox Physician Electronic Warfare Technician note has been reviewed by physician. Signing provider agrees with the documented findings, assessment, and plan of care. Objective - Vital Signs Vital signs: Vital Signs Temp 98.6 F 05/31/23 08:41 Pulse 82 05/31/23 15:17 Resp 17 05/31/23 15:17 BP 136/78 05/31/23 15:17 Pulse Ox 98 05/31/23 15:17 FiO2 Intake & Output 05/30/23 05/31/23 05/31/23 18:59 06:59 18:59 Intake Total 720 220 Output Total 4964 958 7976 Balance -755 550 -2080 Weight 86.183 kg Intake: Oral 720 220 Output: Urine 1275 550 550 Stool 200 1750 Other: Voiding Method External Catheter External Catheter External Catheter # Voids 1 # Bowel Movements 1 - Labs CBC & Chem 7: 05/31/23 08:12 05/31/23 08:12 Labs: Abnormal Lab Results - Last 24 Hours (Table) 05/30/23 05/30/23 05/31/23 Range/Units 16:20 20:08 06:09 WBC (3.8-10.6) k/uL RBC (3.80-5.40) m/uL Hgb (11.4-16.0) gm/dL Hct (34.0-46.0) % Neutrophils # (1.3-7.7) k/uL Sodium (137-145) mmol/L Carbon Dioxide (22-30) mmol/L Glucose (74-99) mg/dL POC Glucose (mg/dL) 204 H 197 H 130 H (70-110) mg/dL 05/31/23 05/31/23 05/31/23 Range/Units 08:12 08:12 11:21 WBC 12.1 H (3.8-10.6) k/uL RBC 3.72 L (3.80-5.40) m/uL Hgb 10.1 L (11.4-16.0) gm/dL Hct 31.6 L (34.0-46.0) % Neutrophils # 9.2 H (1.3-7.7) k/uL Sodium 134 L (137-145) mmol/L Carbon Dioxide 21 L (22-30) mmol/L Glucose 122 H (74-99) mg/dL POC Glucose (mg/dL) 170 H (70-110) mg/dL Microbiology - Last 24 Hours (Table) 05/28/23 12:33 Blood Culture - Preliminary Blood
[2023-05-31 16:14] LABS: Glucose,Whole Blood 216 mg/dL (70-110)
[2023-05-31 20:16] LABS: Glucose,Whole Blood 194 mg/dL (70-110)
[2023-05-31] MEDS: QUEtiapine 200 MG TAB PO SCH (20:20)
[2023-05-31] MEDS: ACETAMINOPHEN TAB 325 MG TAB PO PRN (20:27)
[2023-05-31] MEDS: FLUTICASONE 50MCG/SPRAY NASAL 16GM EA NOSTRIL SCH (23:17)
[2023-06-01 06:00] LABS: Glucose,Whole Blood 146 mg/dL (70-110)
[2023-06-01] MEDS: INSULIN ASPART (NovoLOG) 100 UNIT/ML VIAL SQ SCH ×2 (06:14→11:47)
[2023-06-01] MEDS: LEVOTHYROXINE 88 MCG TAB PO SCH (06:30)
[2023-06-01] MEDS: INSULIN DETEMIR (LEVEMIR) 100 UNIT/ML SYR SQ SCH (06:30)
[2023-06-01 07:36] LABS: Basophils % (A) 0 %; Eosinophils # (A) 0.3 k/uL (0-0.7); Eosinophils % (A) 3 %; HCT 28.8 % (34.0-46.0); HGB 9.4 gm/dL (11.4-16.0); Hypochromasia Slight; Lymphocytes # (A) 1.9 k/uL (1.0-4.8); Lymphocytes % (A) 18 %; MCH 27.9 pg (25.0-35.0); MCHC 32.5 g/dL (31.0-37.0); MCV 85.9 fL (80.0-100.0); Mean Platelet Volume 7.8; Monocytes # (A) 0.5 k/uL (0-1.0); Monocytes % (A) 5 %; Neutrophils # (A) 7.6 k/uL (1.3-7.7); Neutrophils % (A) 72 %; Platelet Count 144 k/uL (150-450); RBC 3.35 m/uL (3.80-5.40); RDW 15.5 % (11.5-15.5); WBC 10.6 k/uL (3.8-10.6)
[2023-06-01] MEDS: SYMBICORT 160-4.5 MCG INHALER INHALATION SCH (08:03)
--- NOTE | 2023-06-01 08:34 | P.PN ---
Subjective Principal diagnosis: The patient is here essentially for small bowel obstruction with stomal hernia. No new complaints are stated. She is postoperative for repair and doing quite well. No fever or chills. Some surgical site pain. No significant nausea, vomiting or diarrhea stated. No fever or chills. Objective - Vital Signs Vital signs: Vital Signs Temp 98.4 F 06/01/23 04:00 Pulse 84 06/01/23 04:00 Resp 16 06/01/23 04:00 BP 124/72 06/01/23 04:00 Pulse Ox 96 06/01/23 04:00 FiO2 Intake & Output 05/31/23 06/01/23 06/01/23 18:59 06:59 18:59 Intake Total 670 10 Output Total 2450 1200 Balance -1780 -1190 Intake: IV 10 Invasive Line 3 10 Oral 670 Output: Urine 550 450 Stool 1900 750 Other: Voiding Method External Catheter External Catheter # Voids 2 - Constitutional General appearance: Present: cooperative, no acute distress - EENT Eyes: Absent: abnormal pupil - Respiratory Respiratory: bilateral: diminished - Cardiovascular Rhythm: regular Heart sounds: normal: S1, S2 Abnormal Heart Sounds: Absent: S3 Gallop - Gastrointestinal General gastrointestinal: Present: soft. Absent: tenderness - Labs CBC & Chem 7: 06/01/23 07:12 05/31/23 08:12 Labs: Abnormal Lab Results - Last 24 Hours (Table) 05/31/23 05/31/23 05/31/23 Range/Units 08:12 08:12 11:21 WBC 12.1 H (3.8-10.6) k/uL RBC 3.72 L (3.80-5.40) m/uL Hgb 10.1 L (11.4-16.0) gm/dL Hct 31.6 L (34.0-46.0) % Plt Count (150-450) k/uL Neutrophils # 9.2 H (1.3-7.7) k/uL Sodium 134 L (137-145) mmol/L Carbon Dioxide 21 L (22-30) mmol/L Glucose 122 H (74-99) mg/dL POC Glucose (mg/dL) 170 H (70-110) mg/dL 05/31/23 05/31/23 06/01/23 Range/Units 16:09 20:15 05:59 WBC (3.8-10.6) k/uL RBC (3.80-5.40) m/uL Hgb (11.4-16.0) gm/dL Hct (34.0-46.0) % Plt Count (150-450) k/uL Neutrophils # (1.3-7.7) k/uL Sodium (137-145) mmol/L Carbon Dioxide (22-30) mmol/L Glucose (74-99) mg/dL POC Glucose (mg/dL) 216 H 194 H 146 H (70-110) mg/dL 06/01/23 Range/Units 07:12 WBC (3.8-10.6) k/uL RBC 3.35 L (3.80-5.40) m/uL Hgb 9.4 L (11.4-16.0) gm/dL Hct 28.8 L (34.0-46.0) % Plt Count 144 L (150-450) k/uL Neutrophils # (1.3-7.7) k/uL Sodium (137-145) mmol/L Carbon Dioxide (22-30) mmol/L Glucose (74-99) mg/dL POC Glucose (mg/dL) (70-110) mg/dL Microbiology - Last 24 Hours (Table) 05/28/23 12:33 Blood Culture - Preliminary Blood Assessment and Plan (1) Hernia Current Visit: Yes Status: Acute Code(s): K46.9 - UNSPECIFIED ABDOMINAL HE RNIA WITHOUT OBSTRUCTION OR GANGRENE SNOMED Code(s): 62949514 (2) SBO (small bowel obstruction) Current Visit: Yes Status: Acute Code(s): K56.609 - UNSP INTESTNL OBST, UNSP TO PARTIAL VERSUS COMPLETE OBST SNOMED Code(s): 323355599 (3) At risk for readmission to hospital Current Visit: No Status: Acute Code(s): Z91.89 - OTH PERSONAL RISK FACTORS, NOT ELSEWHERE CLASSIFIED SNOMED Code(s): 2692475175793 (4) COPD (chronic obstructive pulmonary disease) Current Visit: No Status: Acute Code(s): J44.9 - CHRONIC OBSTRUCTIVE PULM ONARY DISEASE, UNSPECIFIED SNOMED Code(s): 72833042 (5) Leukocytosis Current Visit: No Status: Acute Code(s): D72.829 - ELEVATED WHITE BLOOD CELL COUNT, UNSPECIFIED SNOMED Code(s): 833588405 Plan: Continue current regimen or treatment. Postop pulmonary toilet with appropriate antibiotic treatment. Diabetes is stable her Anticipate discharge once cleared by surgery.
[2023-06-01 09:28] VITALS: TEMP 98.1
[2023-06-01] MEDS: PIPERACILLIN-TAZOBACTAM 3.375 GM in SODIUM CHLORIDE 0.9% 100 ML IVPB SCH (09:30)
[2023-06-01] MEDS: PANTOPRAZOLE 40 MG/10 ML VIAL IV SCH (09:30)
[2023-06-01] MEDS: ENOXAPARIN 30 MG/0.3 ML SYRINGE SQ SCH (09:34)
[2023-06-01 11:42] LABS: Glucose,Whole Blood 137 mg/dL (70-110)
[2023-06-01] MEDS: diphenhydrAMINE 50 MG/ML 1 ML VIAL IVP PRN (11:55)
[2023-06-01] MEDS: MORPHINE SULFATE 4 MG/ML SYRINGE IVP PRN (11:55)
[2023-06-01] MEDS: SODIUM CHLORIDE 0.9% 1,000 ML IV SCH (11:59)
--- NOTE | 2023-06-01 13:58 | P.DS ---
Providers Date of admission: 05/24/23 04:56 Expected date of discharge: 06/01/23 Attending physician: Kori Larsen Consults: 05/24/23 04:57 Consult Physician Routine Consulting Provider: Kori Larsen Consult Reason/Comments: known Do you want consulting provider notified?: Yes 05/24/23 06:34 Consult Physician Routine Consulting Provider: Yomi Kennedy Consult Reason/Comments: known Do you want consulting provider notified?: Yes 05/28/23 00:05 Consult Physician Routine Consulting Provider: Robe Gallegos Consult Reason/Comments: Tachycardia Do you want consulting provider notified?: Yes, Notify in am Primary care physician: Yomi Kennedy Hospital Course: Discharge diagnosis 1. 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 Diabetes type 2, insulin-dependent 4. Chronic pain syndrome 5. History of a right rjlre-dfx-bodh amputation 6. Diabetic neuropathy 7. Depressive disorder 8. Obesity due to excess calories, BMI 33.7 9. Hypothyroidism 10. Chronic obstructive pulmonary disease 11. Asthma 12. Tobacco abuse disorder 13. Hyperlipidemia 14. Hypokalemia 15. Leukocytosis resolved 16. Possible atelectasis Hospital course This is a 68-year-old female with a known past medical history of ischemic bowel status post colectomy with end ileostomy on 01/19/2023. Patient also had recent hospitalization on 05/16/2023 for parastomal hernia. At that time it hernia was reducible and ostomy was functioning and had been tolerating diet. Patient presented on this admission with abdominal pain around her stoma. Computed tomography scan head showed parastomal hernia containing a knuckle of small bowel with resultant upstream small bowel obstruction. Patient is status post reduction of small bowel obstruction with ileostomy revision. Ostomy is functioning. Pain is controlled. Tolerating diet. Afebrile. White count has normalized. Patient is stable for discharge without antibiotics. Physician Transition Of Care Specialist note has been reviewed by physician. Signing provider agrees with the documented findings, assessment, and plan of care. Patient Condition at Discharge: Stable Plan - Discharge Summary Discharge Rx Participant: No New Discharge Prescriptions: New Acetaminophen Tab [Tylenol] 1,000 mg PO Q6HR PRN #30 tablet PRN Reason: Pain Continue Ibuprofen [Motrin] 600 mg PO Q8HR PRN PRN Reason: Pain No Action Oxybutynin Chloride [oxyBUTYnin chloride ER] 10 mg PO DAILY Fluticasone Nasal [place] [Flonase Nasal [place]] 1 spr EA NOSTRIL HS Albuterol Inhaler [Ventolin Hfa Inhaler] 2 puff INHALATION RT-QID PRN PRN Reason: Shortness Of Breath Cholecalciferol (Vitamin D3) [Vitamin D3 (125 MCG = 5,000 IU)] 125 mcg PO DAILY Fluticasone Propion/Salmeterol [Advair 500-50 Diskus] 1 puff INHALATION RT- BID Gabapentin 800 mg PO TID FLUoxetine HCL 40 mg PO DAILY Primidone [Mysoline] 25 mg PO BID Montelukast [Singulair] 10 mg PO HS Levothyroxine Sodium 88 mcg PO DAILY Atorvastatin [Lipitor] 40 mg PO DAILY Triamcinolone 0.1% Cream [Kenalog 0.1% Cream] 1 applic TOPICAL BID PRN PRN Reason: Rash Aspirin 325 mg PO DAILY #30 tab Levocetirizine Dihydrochloride [Xyzal] 5 mg PO BID Famotidine [Pepcid] 20 mg PO BID metFORMIN HCL 1,000 mg PO BID QUEtiapine [SEROquel] 200 mg PO HS Insulin Glargine,Hum.rec.anlog [Lantus Solostar Pen] 55 units SQ BID LORazepam [Ativan] 1 mg PO Q6H PRN PRN Reason: Anxiety Discharge Medication List Oxybutynin Chloride [oxyBUTYnin chloride ER] 10 mg PO DAILY 08/17/20 [History] Fluticasone Nasal [place] [Flonase Nasal [place]] 1 spr EA NOSTRIL HS 09/17/21 [History] Albuterol Inhaler [Ventolin Hfa Inhaler] 2 puff INHALATION RT-QID PRN 12/14/21 [History] Levothyroxine Sodium 88 mcg PO DAILY 12/14/21 [History] Atorvastatin [Lipitor] 40 mg PO DAILY 06/16/22 [History] Cholecalciferol (Vitamin D3) [Vitamin D3 (125 MCG = 5,000 IU)] 125 mcg PO DAILY 06/16/22 [History] Fluticasone Propion/Salmeterol [Advair 500-50 Diskus] 1 puff INHALATION RT-BID 06/16/22 [History] Triamcinolone 0.1% Cream [Kenalog 0.1% Cream] 1 applic TOPICAL BID PRN 06/16/22 [History] Aspirin 325 mg PO DAILY #30 tab 06/18/22 [Rx] Famotidine [Pepcid] 20 mg PO BID 01/19/23 [History] Levocetirizine Dihydrochloride [Xyzal] 5 mg PO BID 01/19/23 [History] FLUoxetine HCL 40 mg PO DAILY 03/31/23 [History] Gabapentin 800 mg PO TID 03/31/23 [History] Ibuprofen [Motrin] 600 mg PO Q8HR PRN 03/31/23 [History] Insulin Glargine,Hum.rec.anlog [Lantus Solostar Pen] 55 units SQ BID 03/31/23 [History] LORazepam [Ativan] 1 mg PO Q6H PRN 03/31/23 [History] QUEtiapine [SEROquel] 200 mg PO HS 03/31/23 [History] metFORMIN HCL 1,000 mg PO BID 03/31/23 [History] Montelukast [Singulair] 10 mg PO HS 05/07/23 [History] Primidone [Mysoline] 25 mg PO BID 05/07/23 [History] Acetaminophen Tab [Tylenol] 1,000 mg PO Q6HR PRN #30 tablet 06/01/23 [Rx] Follow up Appointment(s)/Referral(s): Yomi Kennedy MD [Primary Care Provider] - 1-2 days Kori Larsen MD [STAFF PHYSICIAN] - 07/03/23 Activity/Diet/Wound Care/Special Instructions: Discharge med rec per medicine service No lifting over 4 pounds in 4 weeks You May shower. No bath tub soaks for two weeks until Jul 05 Use Tylenol scheduled for the next 24-48 hours for best pain relief. regular diet Discharge Disposition: HOME SELF-CARE
[2023-06-01 15:29] VITALS: BP 124/64; PULSE 85; RESP 15
[2023-06-01] MEDS: ACETAMINOPHEN TAB 325 MG TAB PO PRN (15:32)
--- NOTE | 2023-06-05 20:34 | CDI ---
Documentation Clarification Form Date: 06/05/2023 08:28:48 PM From: Allie Noel RN, CCDS Email: [email or web address] Admit Date: 05/24/2023 04:56:00 AM Patient Name: Akosua Yost Visit Number: [id number] Discharge Date: 06/01/2023 04:13:00 PM ATTENTION: The Clinical Documentation Specialists (CDI) and [facility] Coding Staff appreciate your assistance in clarifying documentation. Please respond to the clarification below the line at the bottom and electronically sign. The CDI & [facility] Coding staff will review the response and follow-up if needed. Please note: Queries are made part of the Legal Health Record. If you have any questions, please contact the author of this message via ITS. Dr. Kori Larsen Your patient had leukocytosis, fever and tachycardia. Based on this information and the findings below, is there an additional diagnosis that is clinically appropriate for this patient? History/Risk Factors: ischemic bowel status post colectomy with end ileostomy on 01/19/2023. Patient also had recent hospitalization on 05/16/2023 for parastomal hernia. Pain started around her stoma. She has been vomiting. CT showed a parastomal hernia. S/P reduction of small bowel obstruction with ileostomy revision. Clinical Indicators: H&P: "leukocytosis." 05/24-06/01 Labs: WBC14.9-11.10-7.29-17.9-30.46-21.2-12.1-10.6; lactic acid 2.1-2.2-2.0-2.2-1.2; Cr 1.16-0.66-1.2; GFR 49->90-67-75 05/27 VS: Temp 102.9-101.2-100.4; HR 139-941-061-123; BP 77/46-80/47 05/28 Surgery: "Add IV Zosyn due to leukocytosis and fever. Acute abdominal series ordered for fever and concerns for possible aspiration." 05/31 Surgery: "Leukocytosis improving." Treatment: IV Zosyn 3.375gm Q8H 05/28-06/01; 1L 0.9 NS IV bolus on 05/24 and 05/28 Is there an additional diagnosis that is clinically appropriate for this patient? [ ] Sepsis present on admission [ ] Sepsis developed during stay [ ] SIRS, due to small bowel obstruction from parastomal hernia with acute kidney injury [ ] Other, please specify [ ] Unable to determine MTDD
--- NOTE | 2023-06-05 21:10 | CDI ---
Documentation Clarification Form Date: 06/05/2023 08:56:48 PM From: Allie Noel RN, CCDS Email: [email or web address] Admit Date: 05/24/2023 04:56:00 AM Patient Name: Akosua Yost Visit Number: [id number] Discharge Date: 06/01/2023 04:13:00 PM ATTENTION: The Clinical Documentation Specialists (CDI) and [facility] Coding Staff appreciate your assistance in clarifying documentation. Please respond to the clarification below the line at the bottom and electronically sign. The CDI & [facility] Coding staff will review the response and follow-up if needed. Please note: Queries are made part of the Legal Health Record. If you have any questions, please contact the author of this message via ITS. Dr. Yomi Kennedy The patient had an elevated BUN/Cr and low GFR. Based on this information and the findings below, is there an additional diagnosis that is clinically appropriate for this patient? History/Risk Factors: ischemic bowel status post colectomy with end ileostomy on 01/19/2023. Patient also had recent hospitalization on 05/16/23 for parastomal hernia. Pain started around her stoma. She has been vomiting. CT showed a parastomal hernia. S/P reduction of small bowel obstruction with ileostomy revision. Clinical Indicators: 05/24-06/01 Labs: Cr 1.16-0.66-1.2 BUN 25-16.7-7.2-13-12-9.0 GFR 49->90-67-75 Treatment: 1L IV bolus 0.9 NS on 05/24 and 05/28; 0.9 NS @130ml/hr 05/24-05/26 Is there an additional diagnosis that is clinically appropriate for this patient? [ x ] Acute Kidney Injury [ ] No additional diagnosis/Not clinically significant [ ] Unable to determine [ ] Other, please specify Reference: KDIGO THIERRY Criteria An increase in serum creatinine by greater than or equal to 0.3 mg/dL within 48 hours; An increase in serum creatinine by greater than or equal to 1.5 times baseline, which is known or presumed to have occurred within the prior 7 days; A urine volume less than 0.5 ml/kg/h for 6 hours. When the baseline is unknown the lowest creatinine during admission assumed to be baseline MTDD
== END 2023-06-01 16:13 | disposition home or self-care (01) | DRG 330 ==
LOC: EC 01:07 → 5NMEDONC 04:56 → 3SCARD 05-28 00:27
PROVIDERS: ADMIT Surgery Plastic and Reconstructive Surgery; ATTEND Surgery Plastic and Reconstructive Surgery
PROC: 0DBB0ZZ Excision of Ileum, Open Approach (ICD-10-PCS; 2023-05-27)
PROC: 0DW807Z Revision of Autologous Tissue Substitute in Small Intestine, Open Approach (ICD-10-PCS; principal; 2023-05-27 09:00)
DX: K43.3 Parastomal hernia with obstruction, without gangrene (principal); E87.20 Acidosis, unspecified; F11.20 Opioid dependence, uncomplicated; I95.89 Other hypotension; J44.9 Chronic obstructive pulmonary disease, unspecified; I11.9 Hypertensive heart disease without heart failure; D72.829 Elevated white blood cell count, unspecified; G89.4 Chronic pain syndrome; F32.A Depression, unspecified; F17.200 Nicotine dependence, unspecified, uncomplicated; E86.1 Hypovolemia; E87.6 Hypokalemia; R00.0 Tachycardia, unspecified; E78.5 Hyperlipidemia, unspecified; E66.09 Other obesity due to excess calories; E11.649 Type 2 diabetes mellitus with hypoglycemia without coma; E11.40 Type 2 diabetes mellitus with diabetic neuropathy, unspecified; E03.9 Hypothyroidism, unspecified; Z20.822 Contact with and (suspected) exposure to COVID-19; Z68.33 Body mass index [BMI] 33.0-33.9, adult; Z79.4 Long term (current) use of insulin; Z79.82 Long term (current) use of aspirin; Z79.84 Long term (current) use of oral hypoglycemic drugs; Z79.890 Hormone replacement therapy; Z79.899 Other long term (current) drug therapy; Z82.49 Family history of ischemic heart disease and other diseases of the circulatory system; Z83.3 Family history of diabetes mellitus; Z87.19 Personal history of other diseases of the digestive system; Z89.511 Acquired absence of right leg below knee; Z90.49 Acquired absence of other specified parts of digestive tract; Z90.710 Acquired absence of both cervix and uterus
CPT/HCPCS: 36415; 71046; 74019; 74022; 74177; 80048; 80053; 82150; 83036; 83605; 83690; 83735; 84132; 84484; 85025; 85027; 85610; 85730; 87040; 87636; 88304; 93005; 93308; 94640; 96361; 96374; 96375; 96376; 99285

== ENCOUNTER 2023-06-16 22:29 | Inpatient (IN) | payer MEDICARE, OTHER ==
[2023-06-17 00:21] LABS: Anisocytosis Slight; Basophils % (A) 0 %; Eosinophils # (A) 0.4 k/uL (0-0.7); Eosinophils % (A) 3 %; HCT 32.2 % (34.0-46.0); HGB 10.5 gm/dL (11.4-16.0); Hypochromasia Slight; Lymphocytes # (A) 3.1 k/uL (1.0-4.8); Lymphocytes % (A) 23 %; MCH 27.4 pg (25.0-35.0); MCHC 32.7 g/dL (31.0-37.0); MCV 83.8 fL (80.0-100.0); Mean Platelet Volume 7.3; Monocytes % (A) 7 %; Neutrophils % (A) 65 %; Platelet Count 155 k/uL (150-450); RBC 3.84 m/uL (3.80-5.40); RDW 16.4 % (11.5-15.5); WBC 13.8 k/uL (3.8-10.6)
[2023-06-17 00:32] LABS: Anion Gap 17 mmol/L; Blood Urea Nitrogen 39 mg/dL (7-17); Calcium 10.1 mg/dL (8.4-10.2); Carbon Dioxide 11 mmol/L (22-30); Chloride 104 mmol/L (98-107); Glucose 251 mg/dL (74-99); Potassium 5.1 mmol/L (3.5-5.1); Sodium 132 mmol/L (137-145)
[2023-06-17 00:33] LABS: African American GFR (CKD) 34 (>60 ml/min/1.73 sqM); Non-African American GFR(CKD) 29 (>60 ml/min/1.73 sqM)
[2023-06-17] MEDS ORDERED: HYDROmorphone 0.5 MG/0.5 ML SYRINGE IVP STA (00:33)
[2023-06-17] MEDS ORDERED: SODIUM CHLORIDE 0.9% 1,000 ML IV STA (01:05)
[2023-06-17] MEDS ORDERED: ACETAMINOPHEN TAB 325 MG TAB PO PRN (04:06)
[2023-06-17] MEDS ORDERED: NALOXONE 0.4 MG/ML 1 ML VIAL IV PRN (04:07)
[2023-06-17] MEDS ORDERED: DEXTROSE 50% SYRINGE 50 ML IVP PRN ×2 (04:12)
--- NOTE | 2023-06-17 04:16 | ED ---
General Adult HPI - General Source: patient, family Mode of arrival: wheelchair Limitations: no limitations <Mattie Kaba - Last Filed: 06/18/23 02:18> <Kristopher Godoy - Last Filed: 06/26/23 08:55> - General Chief complaint: Recheck/Abnormal Lab/Rx Stated complaint: Ostomy bag Time Seen by Provider: 06/17/23 00:32 - History of Present Illness Initial comments: Patient is 68 patient year-old female who presents the emergency department for colostomy bag issues. Patient has had recurrent issues with leaking. She was evaluated in our emergency department yesterday and a new colostomy bag was placed. Patient has had the ostomy since January with Dr. Larsen. Patient has skin breakdown due to leaking which has been causing pain. Denies fever, chills, nausea, vomiting (Mattie Kaba) - Related Data Home Medications Medication Instructions Recorded Confirmed Oxybutynin Chloride [oxyBUTYnin 10 mg PO DAILY 08/17/20 06/17/23 chloride ER] Fluticasone Nasal [place] [Flonase 1 spr EA NOSTRIL HS 09/17/21 06/17/23 Nasal [place]] Albuterol Inhaler [Ventolin Hfa 2 puff INHALATION RT-QID PRN 12/14/21 06/17/23 Inhaler] Levothyroxine Sodium 88 mcg PO DAILY 12/14/21 06/17/23 Atorvastatin [Lipitor] 40 mg PO DAILY 06/16/22 06/17/23 Cholecalciferol (Vitamin D3) 125 mcg PO DAILY 06/16/22 06/17/23 [Vitamin D3 (125 MCG = 5,000 IU)] Fluticasone Propion/Salmeterol 1 puff INHALATION RT-BID 06/16/22 06/17/23 [Advair 500-50 Diskus] Triamcinolone 0.1% Cream [Kenalog 1 applic TOPICAL BID PRN 06/16/22 06/17/23 0.1% Cream] Famotidine [Pepcid] 20 mg PO BID 01/19/23 06/17/23 Levocetirizine Dihydrochloride 5 mg PO BID 01/19/23 06/17/23 [Xyzal] FLUoxetine HCL 40 mg PO DAILY 03/31/23 06/17/23 Gabapentin 800 mg PO TID 03/31/23 06/17/23 Ibuprofen [Motrin] 600 mg PO Q8HR PRN 03/31/23 06/17/23 LORazepam [Ativan] 1 mg PO Q6H PRN 03/31/23 06/17/23 QUEtiapine [SEROquel] 200 mg PO HS 03/31/23 06/17/23 metFORMIN HCL 1,000 mg PO BID 03/31/23 06/17/23 Montelukast [Singulair] 10 mg PO HS 05/07/23 06/17/23 Primidone [Mysoline] 25 mg PO BID 05/07/23 06/17/23 HYDROcodone/APAP 10-325MG [[place] 1 tab PO Q6H PRN 06/17/23 06/17/23 10-325] Mupirocin 2% Oint [Bactroban 2% 1 applic TOPICAL BID 06/17/23 06/17/23 Oint] Previous Rx's Medication Instructions Recorded Aspirin 325 mg PO DAILY #30 tab 06/18/22 Acetaminophen Tab [Tylenol] 1,000 mg PO Q6HR PRN #30 tablet 06/01/23 Insulin Glargine,Hum.rec.anlog 30 units SQ BID #3 each 06/01/23 [Lantus Solostar Pen] Allergies Allergy/AdvReac Type Severity Reaction Status Date / Time No Known Allergies Allergy Verified 06/17/23 11:39 Review of Systems ROS Other: All systems not noted in ROS Statement are negative. <Mattie Kaba - Last Filed: 06/18/23 02:18> ROS Other: All systems not noted in ROS Statement are negative. <Kristopher Godoy - Last Filed: 06/26/23 08:55> ROS Statement: Those systems with pertinent positive or pertinent negative responses have been documented in the HPI. 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, Ileostomy January 2023, Past Anesthesia/Blood Transfusion Reactions: No Reported Reaction Past Psychological History: Depression Smoking Status: Current every day smoker Past Alcohol Use History: None Reported Past Drug Use History: None Reported - Past Family History Father Family Medical History: Coronary Artery Disease (CAD) Mother Family Medical History: Diabetes Mellitus <Mattie Kaba - Last Filed: 06/18/23 02:18> General Exam Limitations: no limitations General appearance: alert Eye exam: Present: normal appearance, PERRL, EOMI. Absent: scleral icterus, conjunctival injection, periorbital swelling Respiratory exam: Present: normal lung sounds bilaterally. Absent: respiratory distress, wheezes, rales, rhonchi, stridor Cardiovascular Exam: Present: regular rate, normal rhythm, normal heart sounds. Absent: systolic murmur, diastolic murmur, rubs, gallop, clicks GI/Abdominal exam: Present: soft, tenderness (Erythema and irritation inferior to colostomy no warmth or blanching), normal bowel sounds. Absent: distended, guarding, rebound, rigid Neurological exam: Present: alert Psychiatric exam: Present: normal affect, normal mood Skin exam: Present: warm, dry, intact, normal color. Absent: rash <Mattie Kaba - Last Filed: 06/18/23 02:18> Course Vital Signs 06/16/23 06/17/23 06/17/23 22:33 01:44 04:03 Temperature 98.6 F Pulse Rate 92 83 Respiratory 18 19 Rate Blood Pressure 107/58 129/64 111/58 O2 Sat by Pulse 97 99 Oximetry 06/17/23 06/17/23 06/17/23 05:33 10:58 12:54 Temperature 98.8 F Pulse Rate 81 87 Respiratory 16 18 Rate Blood Pressure 124/59 130/81 130/81 O2 Sat by Pulse 99 97 Oximetry Medical Decision Making - Lab Data Result diagrams: 06/17/23 00:06 06/17/23 00:06 <Bernabe Kabana - Last Filed: 06/18/23 02:18> - Lab Data Result diagrams: 06/21/23 05:55 06/21/23 05:55 <Kristopher Godoy - Last Filed: 06/26/23 08:55> - Medical Decision Making Was pt. sent in by a medical professional or institution (, PA, [employer], urgent care, hospital, or prison...) When possible be specific @ -No Did you speak to anyone other than the patient for history (EMS, parent, family, police, friend...)? What history was obtained from this source @ -No Did you review nursing and triage notes (agree or disagree)? Why? @ -I reviewed and agree with nursing and triage notes Were old charts reviewed (outside hosp., previous admission, EMS record, old EKG, old radiological studies, urgent care reports/EKG's, prison records)? Report findings @ -No old charts were reviewed Differential Diagnosis (chest pain, altered mental status, abdominal pain women, abdominal pain men, vaginal bleeding, weakness, fever, dyspnea, syncope, headache, dizziness, GI bleed, back pain, seizure, CVA, palpatations, mental health)? @ -not applicable EKG interpreted by me (3pts min.). @ -As above X-rays interpreted by me (1pt min.). @ -None done CT interpreted by me (1pt min.). @ -None done U/S interpreted by me (1pt. min.). @ -None done What testing was considered but not performed or refused? (CT, X-rays, U/S, labs)? Why? @ -None What meds were considered but not given or refused? Why? @ -None Did you discuss the management of the patient with other professionals (professionals i.e. , PA, [employer], lab, RT, psych nurse, mental health social worker, demolition worker, teacher, dispatch officer, case work aide)? Give summary @ -No Was smoking cessation discussed for >3mins.? @ -No Was critical care preformed (if so, how long)? @ -No Were there social determinants of health that impacted care today? How? (Homelessness, low income, unemployed, alcoholism, drug addiction, transportation, low edu. Level, literacy, decrease access to med. care, halfway, rehab)? @ -No Was there de-escalation of care discussed even if they declined (Discuss DNR or withdrawal of care, Hospice)? DNR status @ -No What co-morbidities impacted this encounter? (DM, HTN, Smoking, COPD, CAD, Cancer, CVA, ARF, Chemo, Hep., AIDS, mental health diagnosis, sleep apnea, morbid obesity)? @ -ostomy Was patient admitted / discharged? Hospital course, mention meds given and route, prescriptions, significant lab abnormalities, going to OR and other pertinent info. @ -68 year old presenting for colostomy leakage. This is an ongoing issue for patient. No obvious infection. No fever or vomiting. Patient appears dehydrated on exam she has THIERRY. She is hyperglycemic at 251 with anion gap metabolic a cidosis. Urinalysis pending. Insulin started. Patient resting comfortable. Patient to be admitted for observation for colostomy dysfunction with general surgery consult. Matilde from [facility] accepts Dr. Angeles is consulted Undiagnosed new problem with uncertain prognosis? @ -No Drug Therapy requiring intensive monitoring for toxicity (Heparin, Nitro, Insulin, Cardizem)? @ -No Were any procedures done? @ -No Diagnosis/symptom? @ -colostomy dysfunction, hyperglycemia Acute, or Chronic, or Acute on Chronic? @ -acute Uncomplicated (without systemic symptoms) or Complicated (systemic symptoms)? @ -uncomplicated Side effects of treatment? @ -No Exacerbation, Progression, or Severe Exacerbation? @ -No Poses a threat to life or bodily function? How? (Chest pain, [place], [place], pneumonia, PE, COPD, DKA, ARF, appy, cholecystitis, CVA, Diverticulitis, Homicidal, Suicidal, threat to staff... and all critical care pts) @ -No Dr. Godoy is my attending (Mattie Kaba) - Lab Data Lab Results 06/17/23 06/17/23 Range/Units 00:06 00:06 WBC 13.8 H (3.8-10.6) k/uL RBC 3.84 (3.80-5.40) m/uL Hgb 10.5 L (11.4-16.0) gm/dL Hct 32.2 L (34.0-46.0) % MCV 83.8 (80.0-100.0) fL MCH 27.4 (25.0-35.0) pg MCHC 32.7 (31.0-37.0) g/dL RDW 16.4 H (11.5-15.5) % Plt Count 155 (150-450) k/uL MPV 7.3 Neutrophils % 65 % Lymphocytes % 23 % Monocytes % 7 % Eosinophils % 3 % Basophils % 0 % Neutrophils # 9.0 H (1.3-7.7) k/uL Lymphocytes # 3.1 (1.0-4.8) k/uL Monocytes # 1.0 (0-1.0) k/uL Eosinophils # 0.4 (0-0.7) k/uL Basophils # 0.0 (0-0.2) k/uL Hypochromasia Slight Anisocytosis Slight Sodium 132 L (137-145) mmol/L Potassium 5.1 (3.5-5.1) mmol/L Chloride 104 (98-107) mmol/L Carbon Dioxide 11 L (22-30) mmol/L Anion Gap 17 mmol/L BUN 39 H (7-17) mg/dL Creatinine 1.76 H (0.52-1.04) mg/dL Est GFR (CKD-EPI)AfAm 34 (>60 ml/min/1.73 sqM) Est GFR (CKD-EPI)NonAf 29 (>60 ml/min/1.73 sqM) Glucose 251 H (74-99) mg/dL Calcium 10.1 (8.4-10.2) mg/dL C-Reactive Protein 3.0 H (<1.0) mg/dL Disposition <Mattie Kaba - Last Filed: 06/18/23 02:18> <Kristopher Godoy - Last Filed: 06/26/23 08:55> Clinical Impression: Colostomy dysfunction Disposition: ADMITTED IP TO THIS HOSP Condition: Good
[2023-06-17] MEDS: SODIUM CHLORIDE 0.9% 1,000 ML IV SCH ×2 (05:37→17:48)
[2023-06-17 05:54] LABS: Glucose,Whole Blood 178 mg/dL (70-110)
[2023-06-17] MEDS: HYDROmorphone 0.5 MG/0.5 ML SYRINGE IVP PRN ×3 (10:56→17:48)
[2023-06-17] MEDS: INSULIN ASPART (NovoLOG) 100 UNIT/ML VIAL SQ SCH ×7 (11:07→20:57)
--- NOTE | 2023-06-17 11:21 | P.HPIM ---
History of Present Illness 68-year-old the female came in because of leaking from the colostomy bag patient is also dehydrated and there is a surrounding cellulitis. Gen. surgery was consulted will also consult infectious disease patient is hyponatremic patient has multiple other medical problems patient does take metformin for diabetes mellitus which will be held because of worsening renal function baseline creatinine around 0.8 and present creatinine is 1.6 patient was started on IV fluids. REVIEW OF SYSTEMS: CONSTITUTIONAL: No fever, no malaise, no fatigue. HEENT: No recent visual problems or hearing problems. Denied any sore throat. CARDIOVASCULAR: No chest pain, orthopnea, PND, no palpitations, no syncope. PULMONARY: No shortness of breath, no cough, no hemoptysis. GASTROINTESTINAL: No diarrhea, no nausea, no vomiting, no abdominal pain. NEUROLOGICAL: No headaches, no weakness, no numbness. HEMATOLOGICAL: Denies any bleeding or petechiae. GENITOURINARY: Denies any burning micturition, frequency, or urgency. MUSCULOSKELETAL/RHEUMATOLOGICAL: Denies any joint pain, swelling, or any muscle pain. ENDOCRINE: Denies any polyuria or polydipsia. The rest of the 14-point review of systems is negative. PHYSICAL EXAMINATION: GENERAL: The patient is alert and oriented x3, not in any acute distress. Well developed, well nourished. HEENT: Pupils are round and equally reacting to light. EOMI. No scleral icterus. No conjunctival pallor. Normocephalic, atraumatic. No pharyngeal erythema. No thyromegaly. CARDIOVASCULAR: S1 and S2 present. No murmurs, rubs, or gallops. PULMONARY: Chest is clear to auscultation, no wheezing or crackles. ABDOMEN: Soft, nontender, nondistended, normoactive bowel sounds. No palpable organomegaly. Significant leakage from the colostomy site, there is surrounding redness and possibly cellulitis MUSCULOSKELETAL: No joint swelling or deformity. EXTREMITIES: No cyanosis, clubbing, or pedal edema. NEUROLOGICAL: Gross neurological examination did not reveal any focal deficits. SKIN: No rashes. Assessment and plan -Acute renal failure, dehydration due to intravascular depletion and poor by mouth intake, and leakage from the colostomy site patient was started on IV fluids monitor kidney function. -Possible cellulitis of the colostomy site infectious disease will be consulted -Mal-functioning of the colostomy site general surgery was consulted Type 2 diabetes mellitus: Metformin will be held because of renal dysfunction, patient was started on sliding scale insulin -Depression -COPD without any acute exacerbation -Nicotine use: Counseling was provided -DVT prophylaxis: Subcutaneous heparin 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, Ileostomy January 2023, Past Anesthesia/Blood Transfusion Reactions: No Reported Reaction Past Psychological History: Depression Smoking Status: Current every day smoker Past Alcohol Use History: None Reported Past Drug Use History: None Reported - Past Family History Father Family Medical History: Coronary Artery Disease (CAD) Mother Family Medical History: Diabetes Mellitus Medications and Allergies Home Medications Medication Instructions Recorded Confirmed Type Oxybutynin Chloride [oxyBUTYnin 10 mg PO DAILY 08/17/20 05/24/23 History chloride ER] Fluticasone Nasal [place] [Flonase 1 spr EA NOSTRIL HS 09/17/21 05/24/23 History Nasal [place]] Albuterol Inhaler [Ventolin Hfa 2 puff INHALATION RT-QID PRN 12/14/21 05/24/23 History Inhaler] Levothyroxine Sodium 88 mcg PO DAILY 12/14/21 05/24/23 History Atorvastatin [Lipitor] 40 mg PO DAILY 06/16/22 05/24/23 History Cholecalciferol (Vitamin D3) 125 mcg PO DAILY 06/16/22 05/24/23 History [Vitamin D3 (125 MCG = 5,000 IU)] Fluticasone Propion/Salmeterol 1 puff INHALATION RT-BID 06/16/22 05/24/23 History [Advair 500-50 Diskus] Triamcinolone 0.1% Cream [Kenalog 1 applic TOPICAL BID PRN 06/16/22 05/24/23 History 0.1% Cream] Aspirin 325 mg PO DAILY #30 tab 06/18/22 05/24/23 Rx Famotidine [Pepcid] 20 mg PO BID 01/19/23 05/24/23 History Levocetirizine Dihydrochloride 5 mg PO BID 01/19/23 05/24/23 History [Xyzal] FLUoxetine HCL 40 mg PO DAILY 03/31/23 05/24/23 History Gabapentin 800 mg PO TID 03/31/23 05/24/23 History Ibuprofen [Motrin] 600 mg PO Q8HR PRN 03/31/23 05/24/23 History LORazepam [Ativan] 1 mg PO Q6H PRN 03/31/23 05/24/23 History QUEtiapine [SEROquel] 200 mg PO HS 03/31/23 05/24/23 History metFORMIN HCL 1,000 mg PO BID 03/31/23 05/24/23 History Montelukast [Singulair] 10 mg PO HS 05/07/23 05/24/23 History Primidone [Mysoline] 25 mg PO BID 05/07/23 05/24/23 History Acetaminophen Tab [Tylenol] 1,000 mg PO Q6HR PRN #30 tablet 06/01/23 Rx Insulin Glargine,Hum.rec.anlog 30 units SQ BID #3 each 06/01/23 Rx [Lantus Solostar Pen] Piperacillin-Tazobactam [Zosyn] 3.375 gm IVPB Q8HR each 06/01/23 Rx Allergies Allergy/AdvReac Type Severity Reaction Status Date / Time No Known Allergies Allergy Verified 06/15/23 22:27 Physical Exam Vitals: Vital Signs Temp Pulse Resp BP Pulse Ox 06/17/23 10:58 81 16 130/81 99 06/17/23 05:33 124/59 06/17/23 04:03 111/58 06/17/23 01:44 83 19 129/64 99 06/16/23 22:33 98.6 F 92 18 107/58 97 Intake and Output 06/16/23 06/17/23 06/17/23 22:59 06:59 14:59 Other: Weight 86.183 kg Results CBC & Chem 7: 06/17/23 00:06 06/17/23 00:06 Labs: Abnormal Lab Results - Last 24 Hours (Table) 06/17/23 06/17/23 06/17/23 Range/Units 00:06 00:06 05:53 WBC 13.8 H (3.8-10.6) k/uL Hgb 10.5 L (11.4-16.0) gm/dL Hct 32.2 L (34.0-46.0) % RDW 16.4 H (11.5-15.5) % Neutrophils # 9.0 H (1.3-7.7) k/uL Sodium 132 L (137-145) mmol/L Carbon Dioxide 11 L (22-30) mmol/L BUN 39 H (7-17) mg/dL Creatinine 1.76 H (0.52-1.04) mg/dL Glucose 251 H (74-99) mg/dL POC Glucose (mg/dL) 178 H (70-110) mg/dL C-Reactive Protein 3.0 H (<1.0) mg/dL
[2023-06-17 13:15] LABS: Glucose,Whole Blood 236 mg/dL (70-110)
[2023-06-17 15:00] LABS: Amorphous Sediment,Urine Rare /hpf; Appearance,Urine Clear (Clear); Bacteria,Urine Rare /hpf; Bilirubin,Urine Negative (Negative); Blood,Urine Negative (Negative); Color,Urine Colorless; Glucose,Urine (UA) Negative (Negative); Ketones,Urine Negative (Negative); Leukocyte Esterase,Urine Large (Negative); Mucus,Urine Rare /hpf; Nitrite,Urine Negative (Negative); PH, Urine 5.5 (5.0-8.0); Protein,Urine 1+ (Negative); Specific Gravity,Urine 1.012 (1.001-1.035); Squamous Epithelial Cell,Urine 5 /hpf (0-4); Urobilinogen,Urine <2.0 mg/dL (<2.0); WBC,Urine 9 /hpf (0-5)
[2023-06-17 17:35] LABS: Glucose,Whole Blood 216 mg/dL (70-110)
[2023-06-17] MEDS: LORATADINE 10 MG TAB PO SCH (20:10)
[2023-06-17] MEDS: HEPARIN SODIUM,PORCINE 5,000 UNIT/ML 1 ML VIAL SQ SCH (20:10)
[2023-06-17] MEDS: FAMOTIDINE 20 MG TAB PO SCH (20:10)
[2023-06-17 20:55] LABS: Glucose,Whole Blood 184 mg/dL (70-110)
--- NOTE | 2023-06-17 22:37 | P.CONS ---
History of Present Illness - Reason for Consult Consult date: 06/17/23 Infected colostomy site Requesting physician: Macho Otto - Chief Complaint Pain around colostomy and drainage x days - History of Present Illness Patient is a 68-year-old female with a past medical history significant for diabetes mellitus hypertension COPD patient did have history of bowel resection and did have colostomy presenting to the ER with concern for issues with leaking from her colostomy bag apparently the patient did have a skin breakdown from the colostomy bag causing pain describing it to be more of a sharp in nature 6-8 out of 10 no radiation. Denies having any foul-smelling drainage and denies having any fever or any chills or visitation the hospital the patient was afebrile and no fever; subsequently patient was not hypotensive or hypoxic or tachycardic patient did have a white count 13.8 with a left shift BUN/creatinine has been mildly elevated as well as a CRP patient also have a positive UA infectious disease was consulted regarding infected colostomy site, patient did have a history of right below the knee amputation and a previous history of infected stoma minimal however that was currently healed and the patient do not have any symptoms referable to that some vague urinary symptom nausea but no vomiting and no flank pain Review of Systems Positive point and negatives has been mentioned in the HPI, complete review of systems was performed and all other systems are negative 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, Ileostomy January 2023, Past Anesthesia/Blood Transfusion Reactions: No Reported Reaction Past Psychological History: Depression Smoking Status: Current every day smoker Past Alcohol Use History: None Reported Past Drug Use History: None Reported - Past Family History Father Family Medical History: Coronary Artery Disease (CAD) Mother Family Medical History: Diabetes Mellitus Medications and Allergies Home Medications Medication Instructions Recorded Confirmed Type Oxybutynin Chloride [oxyBUTYnin 10 mg PO DAILY 08/17/20 06/17/23 History chloride ER] Fluticasone Nasal [place] [Flonase 1 spr EA NOSTRIL HS 09/17/21 06/17/23 History Nasal [place]] Albuterol Inhaler [Ventolin Hfa 2 puff INHALATION RT-QID PRN 12/14/21 06/17/23 History Inhaler] Levothyroxine Sodium 88 mcg PO DAILY 12/14/21 06/17/23 History Atorvastatin [Lipitor] 40 mg PO DAILY 06/16/22 06/17/23 History Cholecalciferol (Vitamin D3) 125 mcg PO DAILY 06/16/22 06/17/23 History [Vitamin D3 (125 MCG = 5,000 IU)] Fluticasone Propion/Salmeterol 1 puff INHALATION RT-BID 06/16/22 06/17/23 History [Advair 500-50 Diskus] Triamcinolone 0.1% Cream [Kenalog 1 applic TOPICAL BID PRN 06/16/22 06/17/23 History 0.1% Cream] Aspirin 325 mg PO DAILY #30 tab 06/18/22 06/17/23 Rx Famotidine [Pepcid] 20 mg PO BID 01/19/23 06/17/23 History Levocetirizine Dihydrochloride 5 mg PO BID 01/19/23 06/17/23 History [Xyzal] FLUoxetine HCL 40 mg PO DAILY 03/31/23 06/17/23 History Gabapentin 800 mg PO TID 03/31/23 06/17/23 History Ibuprofen [Motrin] 600 mg PO Q8HR PRN 03/31/23 06/17/23 History LORazepam [Ativan] 1 mg PO Q6H PRN 03/31/23 06/17/23 History QUEtiapine [SEROquel] 200 mg PO HS 03/31/23 06/17/23 History metFORMIN HCL 1,000 mg PO BID 03/31/23 06/17/23 History Montelukast [Singulair] 10 mg PO HS 05/07/23 06/17/23 History Primidone [Mysoline] 25 mg PO BID 05/07/23 06/17/23 History Acetaminophen Tab [Tylenol] 1,000 mg PO Q6HR PRN #30 tablet 06/01/23 06/17/23 Rx Insulin Glargine,Hum.rec.anlog 30 units SQ BID #3 each 06/01/23 06/17/23 Rx [Lantus Solostar Pen] HYDROcodone/APAP 10-325MG [[place] 1 tab PO Q6H PRN 06/17/23 06/17/23 History 10-325] Mupirocin 2% Oint [Bactroban 2% 1 applic TOPICAL BID 06/17/23 06/17/23 History Oint] Allergies Allergy/AdvReac Type Severity Reaction Status Date / Time No Known Allergies Allergy Verified 06/17/23 11:39 Physical Exam Vitals: Vital Signs Temp Pulse Resp BP Pulse Ox 06/17/23 10:58 81 16 130/81 99 06/17/23 05:33 124/59 06/17/23 04:03 111/58 06/17/23 01:44 83 19 129/64 99 06/16/23 22:33 98.6 F 92 18 107/58 97 Intake and Output 06/16/23 06/17/23 06/17/23 22:59 06:59 14:59 Other: Weight 86.183 kg GENERAL DESCRIPTION: Elderly female lying in bed, no distress. No tachypnea or accessory muscle of respiration use. HEENT: Shows Pallor , no scleral icterus. Oral mucous membrane is dry. NECK: Trachea central, no thyromegaly. LUNGS: Unlabored breathing. Clear to auscultation anteriorly. No wheeze or crackle. HEART: S1, S2, regular rate and rhythm. No loud murmur ABDOMEN: Soft, no tenderness , erythema around the colostomy bag site EXTREMITIES: No edema of feet. SKIN: No rash, no masses palpable. NEUROLOGICAL: The patient is awake, alert, oriented x3, mood and affect normal. Results CBC & Chem 7: 06/21/23 05:55 06/21/23 05:55 Labs: Abnormal Lab Results - Last 24 Hours (Table) 06/17/23 06/17/23 06/17/23 Range/Units 00:06 00:06 05:53 WBC 13.8 H (3.8-10.6) k/uL Hgb 10.5 L (11.4-16.0) gm/dL Hct 32.2 L (34.0-46.0) % RDW 16.4 H (11.5-15.5) % Neutrophils # 9.0 H (1.3-7.7) k/uL Sodium 132 L (137-145) mmol/L Carbon Dioxide 11 L (22-30) mmol/L BUN 39 H (7-17) mg/dL Creatinine 1.76 H (0.52-1.04) mg/dL Glucose 251 H (74-99) mg/dL POC Glucose (mg/dL) 178 H (70-110) mg/dL C-Reactive Protein 3.0 H (<1.0) mg/dL Assessment and Plan (1) Complication of ostomy Current Visit: No Status: Acute Code(s): HWH2591 - SNOMED Code(s): 266256821 (2) Leukocytosis Current Visit: No Status: Acute Code(s): D72.829 - ELEVATED WHITE BLOOD CELL COUNT, UNSPECIFIED SNOMED Code(s): 386820973 Plan: 1patient presented to hospital with concern for irritation around her colostomy site along with the pain and leakage concerning for abdominal wall cellulitis in this patient who do have mild elevated white count and CRP concerning for possible gram-negative pathogen. 2positive UA in the setting of elevated white count and vague urinary symptoms, underlying UTI not entirely excluded 3-discussed with the nursing staff possible application of the [place] cream to the irritated skin versus a macerated border to help relieve the inflammation at the colostomy site and to consult with the ostomy nurse 4-we will empirically on cefepime awaiting further work-up to be completed We will follow on clinical condition and cultures to further adjust medication if needed Thank you for this consultation we will follow the patient along with you Dictation was produced using [employer] dictation software. please excuse any grammatical, word or spelling errors. Time with Patient: Greater than 30
[2023-06-17] MEDS: CEFEPIME 2 GM in SODIUM CHLORIDE 0.9% 100 ML IVPB SCH (23:35)
[2023-06-18] MEDS: HYDROmorphone 0.5 MG/0.5 ML SYRINGE IVP PRN ×6 (01:23→22:44)
[2023-06-18 06:12] LABS: Glucose,Whole Blood 159 mg/dL (70-110)
[2023-06-18] MEDS: SODIUM CHLORIDE 0.9% 1,000 ML IV SCH ×2 (06:15→19:50)
[2023-06-18] MEDS: LEVOTHYROXINE 88 MCG TAB PO SCH (06:15)
[2023-06-18] MEDS: INSULIN ASPART (NovoLOG) 100 UNIT/ML VIAL SQ SCH ×8 (06:15→20:24)
[2023-06-18] MEDS: CEFEPIME 2 GM in SODIUM CHLORIDE 0.9% 100 ML IVPB SCH ×2 (08:41→20:24)
[2023-06-18] MEDS: ATORVASTATIN 40 MG TAB PO SCH (08:42)
[2023-06-18] MEDS: LORATADINE 10 MG TAB PO SCH ×2 (08:42→20:24)
[2023-06-18] MEDS: HEPARIN SODIUM,PORCINE 5,000 UNIT/ML 1 ML VIAL SQ SCH ×2 (08:42→20:24)
[2023-06-18] MEDS: OXYBUTYNIN 10 MG TAB.ER.24 PO SCH (08:42)
[2023-06-18] MEDS: FLUoxetine HCL 20 MG CAP PO SCH (08:42)
[2023-06-18] MEDS: FAMOTIDINE 20 MG TAB PO SCH ×2 (08:42→20:24)
[2023-06-18 08:55] LABS: HCT 27.7 % (37.2-46.3); HGB 8.7 d/dL (12.0-15.0); MCH 26.6 pg (27.0-32.0); MCHC 31.4 d/dL (32.0-37.0); MCV 84.7 FL (80.0-97.0); Mean Platelet Volume 10.1 FL (9.5-12.2); NRBC Per 100 WBC 0 X 10*3/uL (0.00-0.01); Platelet Count 110 X 10*3/uL (140-440); RBC 3.27 X 10*6/uL (4.10-5.20); RDW 15.8 % (11.5-14.5); WBC 10.97 X 10*3/uL (4.50-10.00)
--- NOTE | 2023-06-18 09:02 | P.PN ---
Subjective Progress Note Date: 06/18/23 Principal diagnosis: colostomy leakage This is a 68-year-old female who presented to the emergency department for colostomy bag issues and leakage. Patient has a headache issues with recurrent leakage from ostomy. She had even been admitted [place] to [facility] recently with same complaints. She has had the ostomy since January from Dr. Larsen. Patient also has skin breakdown due to leaking which has been causing pain. Patient's creatinine elevated on admission, she is on IV fluids. Infectious disease also consulted, patient remains on cefepime. She is seen this morning laying in bed. Ostomy bag currently attached, severe skin breakdown around site noted. Objective - Vital Signs Vital signs: Vital Signs Temp 99.7 F H 06/18/23 07:00 Pulse 95 06/18/23 07:00 Resp 17 06/18/23 07:00 BP 123/66 06/18/23 07:00 Pulse Ox 98 06/18/23 07:00 FiO2 Intake & Output 06/17/23 06/18/23 06/18/23 18:59 06:59 18:59 Intake Total 236 Output Total 200 Balance 236 -200 Weight 86.183 kg Intake: Intake, IV Titration 0 Amount Sodium Chloride 0.9% 1, 0 000 ml @ 75 mls/hr IV . [id number] [facility] Rx#:[id number] Oral 236 Output: Stool 200 Other: # Voids 1 - Constitutional General appearance: Present: cooperative, no acute distress - EENT Eyes: Present: PERRLA - Neck Neck: Present: normal ROM. Absent: lymphadenopathy, rigidity - Respiratory Respiratory: bilateral: CTA - Cardiovascular Rhythm: regular Heart sounds: normal: S1, S2 - Gastrointestinal Gastrointestinal Comment(s): Surrounding erythema and skin breakdown around stoma General gastrointestinal: Present: soft. Absent: tenderness - Integumentary Integumentary: Present: normal, normal turgor - Psychiatric Psychiatric: Present: A&O x's 3, appropriate affect, intact judgment & insight - Labs CBC & Chem 7: 06/17/23 00:06 06/17/23 00:06 Labs: Abnormal Lab Results - Last 24 Hours (Table) 06/17/23 06/17/23 06/17/23 Range/Units 13:13 14:36 17:33 POC Glucose (mg/dL) 236 H 216 H (70-110) mg/dL Urine Protein 1+ H (Negative) Ur Leukocyte Esterase Large H (Negative) Urine WBC 9 H (0-5) /hpf Ur Squamous Epith Cells 5 H (0-4) /hpf Amorphous Sediment Rare H (None) /hpf Urine Bacteria Rare H (None) /hpf Urine Mucus Rare H (None) /hpf 06/17/23 06/18/23 Range/Units 20:54 06:11 POC Glucose (mg/dL) 184 H 159 H (70-110) mg/dL Urine Protein (Negative) Ur Leukocyte Esterase (Negative) Urine WBC (0-5) /hpf Ur Squamous Epith Cells (0-4) /hpf Amorphous Sediment (None) /hpf Urine Bacteria (None) /hpf Urine Mucus (None) /hpf Assessment and Plan (1) Colostomy dysfunction Current Visit: Yes Status: Acute Code(s): K94.03 - COLOSTOMY MALFUNCTION SNOMED Code(s): 46410039 (2) THIERRY (acute kidney injury) Current Visit: No Status: Acute Code(s): N17.9 - ACUTE KIDNEY FAILURE, UNSPECIFIED SNOMED Code(s): 03018532 (3) COPD (chronic obstructive pulmonary disease) Current Visit: No Status: Acute Code(s): J44.9 - CHRONIC OBSTRUCTIVE PULMONARY DISEASE, UNSPECIFIED SNOMED Code(s): 98931801 (4) Complication of ostomy Current Visit: No Status: Acute Code(s): ETR5454 - SNOMED Code(s): 809717439 (5) History of below-knee amputation of right lower extremity Current Visit: No Status: Acute Code(s): Z89.511 - ACQUIRED ABSENCE OF RIGHT LEG BELOW KNEE SNOMED Code(s): 693974088737795 (6) History of ischemic colitis Current Visit: No Status: Acute Code(s): Z87.19 - PERSONAL HISTORY OF OTHER DISEASES OF THE DIGESTIVE SYSTEM SNOMED Code(s): 8749157595323280 (7) Hypertension Current Visit: No Status: Acute Code(s): I10 - ESSENTIAL (PRIMARY) HYPERTENSION SNOMED Code(s): 44820192 (8) Opioid dependence Current Visit: No Status: Acute Code(s): F11.20 - OPIOID DEPENDENCE, UNCOMPLICATED SNOMED Code(s): 90375436 (9) Type 2 diabetes mellitus Current Visit: No Status: Acute Code(s): E11.9 - TYPE 2 DIABETES MELLITUS WITHOUT COMPLICATIONS SNOMED Code(s): 75153528 Plan: Consult to surgeon Check CBC and CMP in the morning Patient seen and evaluated by nurse practitioner, physician in agreement with plan
[2023-06-18 10:21] LABS: Blood Urea Nitrogen 28.4 mg/dL (9.0-27.0); Calcium 9.3 mg/dL (8.7-10.3); Carbon Dioxide 15.9 mmol/L (21.6-31.8); Chloride 106 mmol/L (96-109); Glucose 168 mg/dL (70-110); Magnesium 1.5 mg/dL (1.5-2.4); Potassium 4.7 mmol/L (3.5-5.5); Sodium 132 mmol/L (135-145)
[2023-06-18 12:30] LABS: Glucose,Whole Blood 237 mg/dL (70-110)
--- NOTE | 2023-06-18 13:22 | P.GSCN ---
History of Present Illness Consult date: 06/18/23 History of present illness: CHIEF COMPLAINT: Ostomy bag leaking and skin irritation HISTORY OF PRESENT ILLNESS: This is a 68-year-old female with a past medical history of ischemic bowel status post colectomy with end ileostomy on 01/19/2023 and recent reduction of small bowel obstruction with ileostomy revision due to a small bowel obstruction from parastomal hernia. Patient presents to the hospital with complaints of leaking from her ostomy bag. Patient's skin is excoriated below the stoma due to stool leaking onto the skin. Patient stoma is also separation noted from the 6:00 to 12:00 positioning. The stoma is slightly receded as well. Stoma is functioning. Patient complains of pain where the skin is irritated. Denies any nausea or vomiting. She has been tolerating diet. Denies any fever chills or sweats. Patient reports that she had been hospitalized last week at [facility] due to similar problems and they had been packing the area. PAST MEDICAL HISTORY: See below PAST SURGICAL HISTORY: See below MEDICATIONS: See below ALLERGIES: See below SOCIAL HISTORY: No illicit drug use. REVIEW OF SYSTEMS: CONSTITUTIONAL: Denies fever or chills. HEENT: Denies blurred vision, vision changes, or eye pain. Denies hemoptysis CARDIOVASCULAR: Denies chest pain or pressure. RESPIRATORY: No shortness of breath. GASTROINTESTINAL: See HPI for pertinent findings HEMATOLOGIC: Denies bleeding disorders. GENITOURINARY: Denies any blood in urine or increased urinary frequency. SKIN: Denies pruitis. Denies rash. PHYSICAL EXAM: VITAL SIGNS: Reviewed GENERAL: Well-developed in no acute distress. ABDOMEN: Soft. Nondistended. Ileostomy on the right side of the abdomen separation noted from the 6:00 to 12:00 around the stoma. Stoma slightly receded. Extensive skin irritation below the ostomy. Erythema noted. Ostomy is functioning with thickened stool. NEUROLOGIC: Alert and oriented. Cranial nerves II through XII grossly intact. LABORATORY DATA: WBC 13.8 down to 10.97 Hgb 10.5 down to 8.7 platelets 110 Sodium 132 potassium is 4.7 creatinine 1.0 CRP is 3.0 IMAGING: ASSESSMENT: 1. Complication of ileostomy: Stoma separation and stoma slightly receded. Irritation of the abdominal wall due to stool leaking onto the skin 2. Recent ileostomy revision on 05/27/2023 3. History of ischemic bowel status post colectomy with end ileostomy on 01/19/2023 PLAN: -Aquacel silver ordered to pack around the area of separation -Ostomy nurse consulted. However, ostomy nurse does education only. Wound care service will be consulted. -Agree with infectious disease consult -Agree with Triad cream -Made patient nothing by mouth to decrease stool output -Continue antibiotics per ID service -No surgical intervention planned Physician Manager Of Maintenance note has been reviewed by physician. Signing provider agrees with the documented findings, assessment, and plan of care. I have personally seen and examined the patient, reviewed the POWER REGULATOR /PAs history, exam and MDM and agree with the assessment and plan as written. Based on total visit time, I have performed more than 50% of the visit. As above: Patient with significant breakdown between 6 and 12:00 around the ileostomy. Some retraction noted. Patient has had significant leakage around the ostomy with maceration of the skin inferiorly. New ostomy appliance placed earlier. No drainage around the ostomy appliance currently. Continue local wound care. Agree with Aquacel silver into the wound bed itself. We do not have a formal certified ostomy nurse on staff currently. If this does not improve may consider tertiary care transfer. 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, Ileostomy January 2023, Past Anesthesia/Blood Transfusion Reactions: No Reported Reaction Past Psychological History: Depression Smoking Status: Current every day smoker Past Alcohol Use History: None Reported Past Drug Use History: None Reported - Past Family History Father Family Medical History: Coronary Artery Disease (CAD) Mother Family Medical History: Diabetes Mellitus Medications and Allergies Home Medications Medication Instructions Recorded Confirmed Type Oxybutynin Chloride [oxyBUTYnin 10 mg PO DAILY 08/17/20 06/17/23 History chloride ER] Fluticasone Nasal [place] [Flonase 1 spr EA NOSTRIL HS 09/17/21 06/17/23 History Nasal [place]] Albuterol Inhaler [Ventolin Hfa 2 puff INHALATION RT-QID PRN 12/14/21 06/17/23 History Inhaler] Levothyroxine Sodium 88 mcg PO DAILY 12/14/21 06/17/23 History Atorvastatin [Lipitor] 40 mg PO DAILY 06/16/22 06/17/23 History Cholecalciferol (Vitamin D3) 125 mcg PO DAILY 06/16/22 06/17/23 History [Vitamin D3 (125 MCG = 5,000 IU)] Fluticasone Propion/Salmeterol 1 puff INHALATION RT-BID 06/16/22 06/17/23 History [Advair 500-50 Diskus] Triamcinolone 0.1% Cream [Kenalog 1 applic TOPICAL BID PRN 06/16/22 06/17/23 History 0.1% Cream] Aspirin 325 mg PO DAILY #30 tab 06/18/22 06/17/23 Rx Famotidine [Pepcid] 20 mg PO BID 01/19/23 06/17/23 History Levocetirizine Dihydrochloride 5 mg PO BID 01/19/23 06/17/23 History [Xyzal] FLUoxetine HCL 40 mg PO DAILY 03/31/23 06/17/23 History Gabapentin 800 mg PO TID 03/31/23 06/17/23 History Ibuprofen [Motrin] 600 mg PO Q8HR PRN 03/31/23 06/17/23 History LORazepam [Ativan] 1 mg PO Q6H PRN 03/31/23 06/17/23 History QUEtiapine [SEROquel] 200 mg PO HS 03/31/23 06/17/23 History metFORMIN HCL 1,000 mg PO BID 03/31/23 06/17/23 History Montelukast [Singulair] 10 mg PO HS 05/07/23 06/17/23 History Primidone [Mysoline] 25 mg PO BID 05/07/23 06/17/23 History Acetaminophen Tab [Tylenol] 1,000 mg PO Q6HR PRN #30 tablet 06/01/23 06/17/23 Rx Insulin Glargine,Hum.rec.anlog 30 units SQ BID #3 each 06/01/23 06/17/23 Rx [Lantus Solostar Pen] HYDROcodone/APAP 10-325MG [[place] 1 tab PO Q6H PRN 06/17/23 06/17/23 History 10-325] Mupirocin 2% Oint [Bactroban 2% 1 applic TOPICAL BID 06/17/23 06/17/23 History Oint] Allergies Allergy/AdvReac Type Severity Reaction Status Date / Time No Known Allergies Allergy Verified 06/17/23 11:39 Surgical - Exam Vital Signs Temp Pulse Resp BP Pulse Ox 98.6 F 92 18 107/58 97 06/16/23 22:33 06/16/23 22:33 06/16/23 22:33 06/16/23 22:33 06/16/23 22:33 Results - Labs 06/18/23 05:29 06/18/23 05:29 Abnormal Lab Results - Last 24 Hours (Table) 06/17/23 06/17/23 06/17/23 Range/Units 13:13 14:36 17:33 WBC (4.50-10.00) X 10*3/uL RBC (4.10-5.20) X 10*6/uL Hgb (12.0-15.0) d/dL Hct (37.2-46.3) % MCH (27.0-32.0) pg MCHC (32.0-37.0) d/dL RDW (11.5-14.5) % Plt Count (140-440) X 10*3/uL Sodium (135-145) mmol/L Carbon Dioxide (21.6-31.8) mmol/L BUN (9.0-27.0) mg/dL BUN/Creatinine Ratio (12.00-20.00) Ratio Glucose (70-110) mg/dL POC Glucose (mg/dL) 236 H 216 H (70-110) mg/dL Hemoglobin A1c (<=6.0) % Urine Protein 1+ H (Negative) Ur Leukocyte Esterase Large H (Negative) Urine WBC 9 H (0-5) /hpf Ur Squamous Epith Cells 5 H (0-4) /hpf Amorphous Sediment Rare H (None) /hpf Urine Bacteria Rare H (None) /hpf Urine Mucus Rare H (None) /hpf 06/17/23 06/18/23 06/18/23 Range/Units 20:54 05:29 05:29 WBC 10.97 H (4.50-10.00) X 10*3/uL RBC 3.27 L (4.10-5.20) X 10*6/uL Hgb 8.7 L (12.0-15.0) d/dL Hct 27.7 L (37.2-46.3) % MCH 26.6 L (27.0-32.0) pg MCHC 31.4 L (32.0-37.0) d/dL RDW 15.8 H (11.5-14.5) % Plt Count 110 L (140-440) X 10*3/uL Sodium (135-145) mmol/L Carbon Dioxide (21.6-31.8) mmol/L BUN (9.0-27.0) mg/dL BUN/Creatinine Ratio (12.00-20.00) Ratio Glucose (70-110) mg/dL POC Glucose (mg/dL) 184 H (70-110) mg/dL Hemoglobin A1c 7.9 H (<=6.0) % Urine Protein (Negative) Ur Leukocyte Esterase (Negative) Urine WBC (0-5) /hpf Ur Squamous Epith Cells (0-4) /hpf Amorphous Sediment (None) /hpf Urine Bacteria (None) /hpf Urine Mucus (None) /hpf 06/18/23 06/18/23 Range/Units 05:29 06:11 WBC (4.50-10.00) X 10*3/uL RBC (4.10-5.20) X 10*6/uL Hgb (12.0-15.0) d/dL Hct (37.2-46.3) % MCH (27.0-32.0) pg MCHC (32.0-37.0) d/dL RDW (11.5-14.5) % Plt Count (140-440) X 10*3/uL Sodium 132 L (135-145) mmol/L Carbon Dioxide 15.9 L (21.6-31.8) mmol/L BUN 28.4 H (9.0-27.0) mg/dL BUN/Creatinine Ratio 28.40 H (12.00-20.00) Ratio Glucose 168 H (70-110) mg/dL POC Glucose (mg/dL) 159 H (70-110) mg/dL Hemoglobin A1c (<=6.0) % Urine Protein (Negative) Ur Leukocyte Esterase (Negative) Urine WBC (0-5) /hpf Ur Squamous Epith Cells (0-4) /hpf Amorphous Sediment (None) /hpf Urine Bacteria (None) /hpf Urine Mucus (None) /hpf Diabetes panel 06/18/23 06/18/23 Range/Units 05:29 05:29 Sodium 132 L (135-145) mmol/L Potassium 4.7 (3.5-5.5) mmol/L Chloride 106 (96-109) mmol/L Carbon Dioxide 15.9 L (21.6-31.8) mmol/L BUN 28.4 H (9.0-27.0) mg/dL Creatinine 1.0 (0.6-1.5) mg/dL Glucose 168 H (70-110) mg/dL Hemoglobin A1c 7.9 H (<=6.0) % Calcium 9.3 (8.7-10.3) mg/dL Calcium panel 06/18/23 Range/Units 05:29 Calcium 9.3 (8.7-10.3) mg/dL Pituitary panel 06/18/23 Range/Units 05:29 Sodium 132 L (135-145) mmol/L Potassium 4.7 (3.5-5.5) mmol/L Chloride 106 (96-109) mmol/L Carbon Dioxide 15.9 L (21.6-31.8) mmol/L BUN 28.4 H (9.0-27.0) mg/dL Creatinine 1.0 (0.6-1.5) mg/dL Glucose 168 H (70-110) mg/dL Calcium 9.3 (8.7-10.3) mg/dL Adrenal panel 06/18/23 Range/Units 05:29 Sodium 132 L (135-145) mmol/L Potassium 4.7 (3.5-5.5) mmol/L Chloride 106 (96-109) mmol/L Carbon Dioxide 15.9 L (21.6-31.8) mmol/L BUN 28.4 H (9.0-27.0) mg/dL Creatinine 1.0 (0.6-1.5) mg/dL Glucose 168 H (70-110) mg/dL Calcium 9.3 (8.7-10.3) mg/dL
[2023-06-18] MEDS: HYDROPHILIC CREAM 180 GM TUBE TOPICAL SCH (14:18)
[2023-06-18 17:28] LABS: Glucose,Whole Blood 253 mg/dL (70-110)
[2023-06-18 20:20] LABS: Glucose,Whole Blood 198 mg/dL (70-110)
[2023-06-18] MEDS: diphenhydrAMINE 25 MG CAP PO PRN (20:50)
[2023-06-18] MEDS: ZOLPIDEM 5 MG TAB PO PRN (23:23)
[2023-06-19] MEDS: HYDROmorphone 0.5 MG/0.5 ML SYRINGE IVP PRN ×3 (01:47→07:53)
[2023-06-19] MEDS: diphenhydrAMINE 25 MG CAP PO PRN ×2 (04:38→13:59)
[2023-06-19] MEDS: HYDROPHILIC CREAM 180 GM TUBE TOPICAL SCH ×2 (05:56→17:29)
[2023-06-19] MEDS: LEVOTHYROXINE 88 MCG TAB PO SCH (05:56)
[2023-06-19 05:59] LABS: Glucose,Whole Blood 187 mg/dL (70-110)
[2023-06-19] MEDS: INSULIN ASPART (NovoLOG) 100 UNIT/ML VIAL SQ SCH ×5 (06:00→20:56)
[2023-06-19] MEDS: FLUoxetine HCL 20 MG CAP PO SCH (08:30)
[2023-06-19] MEDS: HEPARIN SODIUM,PORCINE 5,000 UNIT/ML 1 ML VIAL SQ SCH ×2 (08:30→20:57)
[2023-06-19] MEDS: ATORVASTATIN 40 MG TAB PO SCH (08:30)
[2023-06-19] MEDS: LORATADINE 10 MG TAB PO SCH ×2 (08:30→20:58)
[2023-06-19] MEDS: OXYBUTYNIN 10 MG TAB.ER.24 PO SCH (08:31)
[2023-06-19] MEDS: CEFEPIME 2 GM in SODIUM CHLORIDE 0.9% 100 ML IVPB SCH ×2 (08:31→20:56)
[2023-06-19] MEDS: FAMOTIDINE 20 MG TAB PO SCH ×2 (08:31→20:58)
[2023-06-19] MEDS: SODIUM CHLORIDE 0.9% 1,000 ML IV SCH ×2 (08:31→20:59)
[2023-06-19 09:10] LABS: HCT 30.3 % (37.2-46.3); HGB 10.1 d/dL (12.0-15.0); MCH 26.9 pg (27.0-32.0); MCHC 33.3 d/dL (32.0-37.0); MCV 80.6 FL (80.0-97.0); Mean Platelet Volume 9.1 FL (9.5-12.2); NRBC Per 100 WBC 0 X 10*3/uL (0.00-0.01); Platelet Count 141 X 10*3/uL (140-440); RBC 3.76 X 10*6/uL (4.10-5.20); RDW 15.2 % (11.5-14.5); WBC 10.54 X 10*3/uL (4.50-10.00)
--- NOTE | 2023-06-19 09:36 | P.PN ---
Subjective Progress Note Date: 06/19/23 Principal diagnosis: colostomy leakage This is a 68-year-old female who presented to the emergency department for colostomy bag issues and leakage. Patient has a headache issues with recurrent leakage from ostomy. She had even been admitted [place] [facility] recently with same complaints. She has had the ostomy since January from Dr. Larsen. Patient also has skin breakdown due to leaking which has been causing pain. Patient's creatinine elevated on admission, she is on IV fluids. Infectious disease also consulted, patient remains on cefepime. She is seen this morning laying in bed. Ostomy bag currently attached, severe skin breakdown around site noted. 06/19/2023 Patient seen and evaluated laying in bed this morning. She reports pain has increased and she is very uncomfortable today. Patient seen and evaluated by surgeon yesterday who is recommending Aquacel Silver applied to skin around the stoma. Objective - Vital Signs Vital signs: Vital Signs Temp 98.3 F 06/19/23 07:00 Pulse 83 06/19/23 07:00 Resp 16 06/19/23 07:00 BP 178/75 06/19/23 07:00 Pulse Ox 100 06/19/23 07:00 FiO2 Intake & Output 06/18/23 06/19/23 06/19/23 18:59 06:59 18:59 Intake Total 100 Balance 100 Intake: Intake, IV Titration 100 Amount Cefepime 2 gm In Sodium 100 Chloride 0.9% 100 ml @ 25 mls/hr IVPB Q12HR [facility] Rx #:[id number] Other: Voiding Method Bedside Commode Bedpan # Voids 2 3 - Constitutional General appearance: Present: cooperative, no acute distress - EENT Eyes: Present: PERRLA - Neck Neck: Present: normal ROM. Absent: lymphadenopathy, rigidity - Respiratory Respiratory: bilateral: CTA - Cardiovascular Rhythm: regular Heart sounds: normal: S1, S2 - Gastrointestinal Gastrointestinal Comment(s): Erythema around the stoma noted General gastrointestinal: Present: soft. Absent: tenderness - Integumentary Integumentary: Present: normal, normal turgor - Psychiatric Psychiatric: Present: A&O x's 3, appropriate affect, intact judgment & insight - Labs CBC & Chem 7: 06/19/23 05:20 06/18/23 05:29 Labs: Abnormal Lab Results - Last 24 Hours (Table) 06/18/23 06/18/23 06/18/23 Range/Units 05:29 05:29 12:29 WBC (4.50-10.00) X 10*3/uL RBC (4.10-5.20) X 10*6/uL Hgb (12.0-15.0) d/dL Hct (37.2-46.3) % MCH (27.0-32.0) pg RDW (11.5-14.5) % MPV (9.5-12.2) FL Sodium 132 L (135-145) mmol/L Carbon Dioxide 15.9 L (21.6-31.8) mmol/L BUN 28.4 H (9.0-27.0) mg/dL BUN/Creatinine Ratio 28.40 H (12.00-20.00) Ratio Glucose 168 H (70-110) mg/dL POC Glucose (mg/dL) 237 H (70-110) mg/dL Hemoglobin A1c 7.9 H (<=6.0) % 06/18/23 06/18/23 06/19/23 Range/Units 17:26 20:20 05:20 WBC 10.54 H (4.50-10.00) X 10*3/uL RBC 3.76 L (4.10-5.20) X 10*6/uL Hgb 10.1 L (12.0-15.0) d/dL Hct 30.3 L (37.2-46.3) % MCH 26.9 L (27.0-32.0) pg RDW 15.2 H (11.5-14.5) % MPV 9.1 L (9.5-12.2) FL Sodium (135-145) mmol/L Carbon Dioxide (21.6-31.8) mmol/L BUN (9.0-27.0) mg/dL BUN/Creatinine Ratio (12.00-20.00) Ratio Glucose (70-110) mg/dL POC Glucose (mg/dL) 253 H 198 H (70-110) mg/dL Hemoglobin A1c (<=6.0) % 06/19/23 Range/Units 05:57 WBC (4.50-10.00) X 10*3/uL RBC (4.10-5.20) X 10*6/uL Hgb (12.0-15.0) d/dL Hct (37.2-46.3) % MCH (27.0-32.0) pg RDW (11.5-14.5) % MPV (9.5-12.2) FL Sodium (135-145) mmol/L Carbon Dioxide (21.6-31.8) mmol/L BUN (9.0-27.0) mg/dL BUN/Creatinine Ratio (12.00-20.00) Ratio Glucose (70-110) mg/dL POC Glucose (mg/dL) 187 H (70-110) mg/dL Hemoglobin A1c (<=6.0) % Assessment and Plan (1) Colostomy dysfunction Current Visit: Yes Status: Acute Code(s): K94.03 - COLOSTOMY MALFUNCTION SNOMED Code(s): 31171680 (2) THIERRY (acute kidney injury) Current Visit: No Status: Acute Code(s): N17.9 - ACUTE KIDNEY FAILURE, UNSPECIFIED SNOMED Code(s): 52104261 (3) COPD (chronic obstructive pulmonary disease) Current Visit: No Status: Acute Code(s): J44.9 - CHRONIC OBSTRUCTIVE PULMONARY DISEASE, UNSPECIFIED SNOMED Code(s): 43193958 (4) Complication of ostomy Current Visit: No Status: Acute Code(s): FQW5494 - SNOMED Code(s): 410437638 (5) History of below-knee amputation of right lower extremity Current Visit: No Status: Acute Code(s): Z89.511 - ACQUIRED ABSENCE OF RIGHT LEG BELOW KNEE SNOMED Code(s): 824784499393544 (6) History of ischemic colitis Current Visit: No Status: Acute Code(s): Z87.19 - PERSONAL HISTORY OF OTHER DISEASES OF THE DIGESTIVE SYSTEM SNOMED Code(s): 6802196326330115 (7) Hypertension Current Visit: No Status: Acute Code(s): I10 - ESSENTIAL (PRIMARY) HYPERTENSION SNOMED Code(s): 47545297 (8) Opioid dependence Current Visit: No Status: Acute Code(s): F11.20 - OPIOID DEPENDENCE, UNCOMPLICATED SNOMED Code(s): 09894585 (9) Type 2 diabetes mellitus Current Visit: No Status: Acute Code(s): E11.9 - TYPE 2 DIABETES MELLITUS WITHOUT COMPLICATIONS SNOMED Code(s): 53880415 Plan: Continue with wound care per surgeon's instructions Check CBC and CMP in the morning Will increase Dilaudid to 1 mg for today to help with better pain control Patient seen and evaluated by nurse practitioner, physician in agreement with plan
[2023-06-19 09:40] LABS: ALT 20 U/L (8-44); AST 18 U/L (13-35); Albumin 3.9 d/dL (3.8-4.9); Albumin/Globulin Ratio 1.05 Ratio (1.60-3.17); Alkaline Phosphatase 136 U/L (41-126); BUN/Creat Ratio 17.62 Ratio (12.00-20.00); Blood Urea Nitrogen 14.1 mg/dL (9.0-27.0); Calcium 9.6 mg/dL (8.7-10.3); Carbon Dioxide 19.4 mmol/L (21.6-31.8); Chloride 103 mmol/L (96-109); Globulin 3.7 d/dL (1.6-3.3); Glucose 180 mg/dL (70-110); Potassium 4.1 mmol/L (3.5-5.5); Sodium 133 mmol/L (135-145); Total Bilirubin 0.3 mg/dL (0.3-1.2); Total Protein 7.6 d/dL (6.2-8.2)
[2023-06-19] MEDS: HYDROmorphone 1 MG/ML 1 ML SYRINGE IVP PRN ×4 (10:00→21:29)
--- NOTE | 2023-06-19 10:42 | P.CONS ---
History of Present Illness - Reason for Consult Consult date: 06/19/23 wound care - History of Present Illness This is a 68-year-old patient being seen on for ostomy bag leakage and skin irritation. Patient had leaking of her ostomy bag resulting in a ulceration neck to her stoma. At this time there utilizing absorptive silver rope and applying her appliance. Periwound has excoriation which is being treated with triad. Patient's past medical history significant for ischemic bowel status post colectomy with end ileostomy on 01/19/2023 a recent reduction of small bowel obstruction with ileostomy revision due to a small bowel obstruction with parastomal hernia. Review Of Systems: Constitutional: No fever, no chills, no night sweats. No weight change. No weakness, fatigue or lethargy. No daytime sleepiness. Integumentary:reports wounds, no lesions. No rash or pruritus. No unusual bruising. No change in hair or nails. Physical exam: General Appearance: Alert, cooperative, no distress, appears stated age. Skin: See HPI all other Skin color, texture, tugor normal, no rashes or lesions. Neurologic: Alert oriented x3 Assessment: 1. Nonhealing ulceration with fatty layer exposure abdomen 2. Diabetes disease with skin ulceration 3. Everyday nicotine smoker Plan: 1. Apply absortive silver rope, paste and appliance. Triad to periwound as needed. If continues to have drainage to skin:apply a hydrocolloid (duoderm) over the absorptive silver. If the dressings is working only change when appliance is needed to be changed. Thank you for the consultation any questions to contact the wound care center DNP note has been reviewed and discussed with Dr. Fulton and the impression and plan of care has been directed as dictated. 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, Ileostomy January 2023, Past Anesthesia/Blood Transfusion Reactions: No Reported Reaction Past Psychological History: Depression Smoking Status: Current every day smoker Past Alcohol Use History: None Reported Past Drug Use History: None Reported - Past Family History Father Family Medical History: Coronary Artery Disease (CAD) Mother Family Medical History: Diabetes Mellitus Medications and Allergies Home Medications Medication Instructions Recorded Confirmed Type Oxybutynin Chloride [oxyBUTYnin 10 mg PO DAILY 08/17/20 06/17/23 History chloride ER] Fluticasone Nasal [place] [Flonase 1 spr EA NOSTRIL HS 09/17/21 06/17/23 History Nasal [place]] Albuterol Inhaler [Ventolin Hfa 2 puff INHALATION RT-QID PRN 12/14/21 06/17/23 History Inhaler] Levothyroxine Sodium 88 mcg PO DAILY 12/14/21 06/17/23 History Atorvastatin [Lipitor] 40 mg PO DAILY 06/16/22 06/17/23 History Cholecalciferol (Vitamin D3) 125 mcg PO DAILY 06/16/22 06/17/23 History [Vitamin D3 (125 MCG = 5,000 IU)] Fluticasone Propion/Salmeterol 1 puff INHALATION RT-BID 06/16/22 06/17/23 History [Advair 500-50 Diskus] Triamcinolone 0.1% Cream [Kenalog 1 applic TOPICAL BID PRN 06/16/22 06/17/23 History 0.1% Cream] Aspirin 325 mg PO DAILY #30 tab 06/18/22 06/17/23 Rx Famotidine [Pepcid] 20 mg PO BID 01/19/23 06/17/23 History Levocetirizine Dihydrochloride 5 mg PO BID 01/19/23 06/17/23 History [Xyzal] FLUoxetine HCL 40 mg PO DAILY 03/31/23 06/17/23 History Gabapentin 800 mg PO TID 03/31/23 06/17/23 History Ibuprofen [Motrin] 600 mg PO Q8HR PRN 03/31/23 06/17/23 History LORazepam [Ativan] 1 mg PO Q6H PRN 03/31/23 06/17/23 History QUEtiapine [SEROquel] 200 mg PO HS 03/31/23 06/17/23 History metFORMIN HCL 1,000 mg PO BID 03/31/23 06/17/23 History Montelukast [Singulair] 10 mg PO HS 05/07/23 06/17/23 History Primidone [Mysoline] 25 mg PO BID 05/07/23 06/17/23 History Acetaminophen Tab [Tylenol] 1,000 mg PO Q6HR PRN #30 tablet 06/01/23 06/17/23 Rx Insulin Glargine,Hum.rec.anlog 30 units SQ BID #3 each 06/01/23 06/17/23 Rx [Lantus Solostar Pen] HYDROcodone/APAP 10-325MG [[place] 1 tab PO Q6H PRN 06/17/23 06/17/23 History 10-325] Mupirocin 2% Oint [Bactroban 2% 1 applic TOPICAL BID 06/17/23 06/17/23 History Oint] Allergies Allergy/AdvReac Type Severity Reaction Status Date / Time No Known Allergies Allergy Verified 06/17/23 11:39 Physical Exam Vitals: Vital Signs Temp Pulse Resp BP Pulse Ox 06/19/23 07:00 98.3 F 83 16 178/75 100 06/19/23 01:03 98.3 F 89 18 159/81 100 06/18/23 19:18 98.3 F 95 16 132/54 98 06/18/23 15:00 99.2 F 87 16 133/68 100 Intake and Output 06/18/23 06/19/23 06/19/23 22:59 06:59 14:59 Other: Voiding Method Bedside Commode Bedpan # Voids 1 3 Results CBC & Chem 7: 06/19/23 05:20 06/19/23 05:20 Labs: Abnormal Lab Results - Last 24 Hours (Table) 06/18/23 06/18/23 06/18/23 Range/Units 05:29 12:29 17:26 WBC (4.50-10.00) X 10*3/uL RBC (4.10-5.20) X 10*6/uL Hgb (12.0-15.0) d/dL Hct (37.2-46.3) % MCH (27.0-32.0) pg RDW (11.5-14.5) % MPV (9.5-12.2) FL Sodium (135-145) mmol/L Carbon Dioxide (21.6-31.8) mmol/L Glucose (70-110) mg/dL POC Glucose (mg/dL) 237 H 253 H (70-110) mg/dL Hemoglobin A1c 7.9 H (<=6.0) % Alkaline Phosphatase (41-126) U/L Globulin (1.6-3.3) d/dL Albumin/Globulin Ratio (1.60-3.17) Ratio 06/18/23 06/19/23 06/19/23 Range/Units 20:20 05:20 05:20 WBC 10.54 H (4.50-10.00) X 10*3/uL RBC 3.76 L (4.10-5.20) X 10*6/uL Hgb 10.1 L (12.0-15.0) d/dL Hct 30.3 L (37.2-46.3) % MCH 26.9 L (27.0-32.0) pg RDW 15.2 H (11.5-14.5) % MPV 9.1 L (9.5-12.2) FL Sodium 133 L (135-145) mmol/L Carbon Dioxide 19.4 L (21.6-31.8) mmol/L Glucose 180 H (70-110) mg/dL POC Glucose (mg/dL) 198 H (70-110) mg/dL Hemoglobin A1c (<=6.0) % Alkaline Phosphatase 136 H (41-126) U/L Globulin 3.7 H (1.6-3.3) d/dL Albumin/Globulin Ratio 1.05 L (1.60-3.17) Ratio 06/19/23 Range/Units 05:57 WBC (4.50-10.00) X 10*3/uL RBC (4.10-5.20) X 10*6/uL Hgb (12.0-15.0) d/dL Hct (37.2-46.3) % MCH (27.0-32.0) pg RDW (11.5-14.5) % MPV (9.5-12.2) FL Sodium (135-145) mmol/L Carbon Dioxide (21.6-31.8) mmol/L Glucose (70-110) mg/dL POC Glucose (mg/dL) 187 H (70-110) mg/dL Hemoglobin A1c (<=6.0) % Alkaline Phosphatase (41-126) U/L Globulin (1.6-3.3) d/dL Albumin/Globulin Ratio (1.60-3.17) Ratio Assessment and Plan (1) Non-pressure chronic ulcer of skin of other sites with fat layer exposed Current Visit: Yes Status: Acute Code(s): L98.492 - SNOMED Code(s): 90221868 (2) Type 2 diabetes mellitus with other skin ulcer Current Visit: Yes Status: Acute Code(s): E11.622 - TYPE 2 DIABETES MELLITUS WITH OTHER SKIN ULCER; L98.499 - SNOMED Code(s): 346675344 (3) Nicotine dependence with current use Current Visit: Yes Status: Acute Code(s): F17.200 - NICOTINE DEPENDENCE, UNSPECIFIED, UNCOMPLICATED SNOMED Code(s): 58770150
[2023-06-19 12:31] LABS: Glucose,Whole Blood 212 mg/dL (70-110)
--- NOTE | 2023-06-19 13:30 | P.PN ---
Subjective Progress Note Date: 06/19/23 CHIEF COMPLAINT: Skin breakdown at ostomy site HISTORY OF PRESENT ILLNESS: Patient continues to complain of pain at her ostomy site and around the ostomy where the skin is irritated. The bag is holding lo nger without leaking as compared to prior to admission. Patient was seen by wound care service. They have made changes to the wound care. Afebrile. WBC 10.5 for Hgb 10.1 PHYSICAL EXAM: VITAL SIGNS: Reviewed. GENERAL: Well-developed in no acute distress. ABDOMEN: Soft. Nondistended. Ileostomy bag intact. Stool present. Skin irritation noted below ostomy bag. NEUROLOGIC: Alert and oriented. Cranial nerves II through XII grossly intact. ASSESSMENT: 1. Complication of ileostomy: Stoma separation from 6 to 12 o'clock position with mild retraction of stoma noted. Irritation of the skin of the abdominal wall due to stool leaking onto the skin 2. Recent ileostomy revision on 05/27/2023 3. 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 Patient seen by wound care service. Adjustments for wound care noted and appreciated. -Continue to monitor -Resume regular diet -Antibiotics per ID service Physician Director Sales Training note has been reviewed by physician. Signing provider agrees with the documented findings, assessment, and plan of care. I have personally seen and examined the patient, reviewed the FIRE RANGER /PAs history, exam and MDM and agree with the assessment and plan as written. Based on total visit time, I have performed more than 50% of the visit. As above: Patient doing better. Less leakage around the ostomy although just this afternoon started having some leakage. Ostomy dressings about to be ch anged. She is afebrile. White blood cell count normal. Gradually resume diet. Will follow. Objective - Vital Signs Vital signs: Vital Signs Temp 98.3 F 06/19/23 07:00 Pulse 83 06/19/23 07:00 Resp 16 06/19/23 07:00 BP 178/75 06/19/23 07:00 Pulse Ox 100 06/19/23 07:00 FiO2 Intake & Output 06/18/23 06/19/23 06/19/23 18:59 06:59 18:59 Intake Total 100 Balance 100 Intake: Intake, IV Titration 100 Amount Cefepime 2 gm In Sodium 100 Chloride 0.9% 100 ml @ 25 mls/hr IVPB Q12HR [facility] Rx #:[id number] Other: Voiding Method Bedside Commode Bedpan Bedpan # Voids 2 3 - Labs CBC & Chem 7: 06/19/23 05:20 06/19/23 05:20 Labs: Abnormal Lab Results - Last 24 Hours (Table) 06/18/23 06/18/23 06/19/23 Range/Units 17:26 20:20 05:20 WBC 10.54 H (4.50-10.00) X 10*3/uL RBC 3.76 L (4.10-5.20) X 10*6/uL Hgb 10.1 L (12.0-15.0) d/dL Hct 30.3 L (37.2-46.3) % MCH 26.9 L (27.0-32.0) pg RDW 15.2 H (11.5-14.5) % MPV 9.1 L (9.5-12.2) FL Sodium (135-145) mmol/L Carbon Dioxide (21.6-31.8) mmol/L Glucose (70-110) mg/dL POC Glucose (mg/dL) 253 H 198 H (70-110) mg/dL Alkaline Phosphatase (41-126) U/L Globulin (1.6-3.3) d/dL Albumin/Globulin Ratio (1.60-3.17) Ratio 06/19/23 06/19/23 06/19/23 Range/Units 05:20 05:57 12:29 WBC (4.50-10.00) X 10*3/uL RBC (4.10-5.20) X 10*6/uL Hgb (12.0-15.0) d/dL Hct (37.2-46.3) % MCH (27.0-32.0) pg RDW (11.5-14.5) % MPV (9.5-12.2) FL Sodium 133 L (135-145) mmol/L Carbon Dioxide 19.4 L (21.6-31.8) mmol/L Glucose 180 H (70-110) mg/dL POC Glucose (mg/dL) 187 H 212 H (70-110) mg/dL Alkaline Phosphatase 136 H (41-126) U/L Globulin 3.7 H (1.6-3.3) d/dL Albumin/Globulin Ratio 1.05 L (1.60-3.17) Ratio
--- NOTE | 2023-06-19 14:27 | P.PN ---
Subjective Progress Note Date: 06/18/23 Principal diagnosis: Leukocytosis, UTI, abdominal wall cellulitis Patient is a 68-year-old female with a past medical history significant for diabetes mellitus hypertension COPD patient did have history of bowel resection and did have colostomy presenting to the ER with concern for issues with leaking from her colostomy bag , patient also noticed a mildly elevated white count and positive UA. On today's evaluation that is 06/18/2023, the patient denies any fever or any chills , the patient is breathing comfortably on room air , the patient denies chest pain or cough, patient denies nausea or vomiting still some discomfort around the colostomy bag but no worsening drainage. Patient did have a white count of 10.97, creatinine is 1.0 Objective - Vital Signs Vital signs: Vital Signs Temp 99.2 F 06/18/23 15:00 Pulse 87 06/18/23 15:00 Resp 16 06/18/23 15:00 BP 133/68 06/18/23 15:00 Pulse Ox 100 06/18/23 15:00 FiO2 Intake & Output 06/17/23 06/18/23 06/18/23 18:59 06:59 18:59 Intake Total 236 100 Output Total 200 Balance 236 -200 100 Weight 86.183 kg Intake: Intake, IV Titration 0 100 Amount Cefepime 2 gm In Sodium 100 Chloride 0.9% 100 ml @ 25 mls/hr IVPB Q12HR [facility] Rx #:[id number] Sodium Chloride 0.9% 1, 0 000 ml @ 75 mls/hr IV . [id number] [facility] Rx#:[id number] Oral 236 Output: Stool 200 Other: # Voids 1 - Exam GENERAL DESCRIPTION: An elderly female lying in bed in no distress RESPIRATORY SYSTEM: Unlabored breathing , decreased breath sounds at bases HEART: S1 S2 regular rate and rhythm , ABDOMEN: Soft , no tenderness EXTREMITIES: No edema feet - Labs CBC & Chem 7: 06/19/23 05:20 06/19/23 05:20 Labs: Abnormal Lab Results - Last 24 Hours (Table) 06/17/23 06/17/23 06/18/23 Range/Units 17:33 20:54 05:29 WBC (4.50-10.00) X 10*3/uL RBC (4.10-5.20) X 10*6/uL Hgb (12.0-15.0) d/dL Hct (37.2-46.3) % MCH (27.0-32.0) pg MCHC (32.0-37.0) d/dL RDW (11.5-14.5) % Plt Count (140-440) X 10*3/uL Sodium (135-145) mmol/L Carbon Dioxide (21.6-31.8) mmol/L BUN (9.0-27.0) mg/dL BUN/Creatinine Ratio (12.00-20.00) Ratio Glucose (70-110) mg/dL POC Glucose (mg/dL) 216 H 184 H (70-110) mg/dL Hemoglobin A1c 7.9 H (<=6.0) % 06/18/23 06/18/23 06/18/23 Range/Units 05:29 05:29 06:11 WBC 10.97 H (4.50-10.00) X 10*3/uL RBC 3.27 L (4.10-5.20) X 10*6/uL Hgb 8.7 L (12.0-15.0) d/dL Hct 27.7 L (37.2-46.3) % MCH 26.6 L (27.0-32.0) pg MCHC 31.4 L (32.0-37.0) d/dL RDW 15.8 H (11.5-14.5) % Plt Count 110 L (140-440) X 10*3/uL Sodium 132 L (135-145) mmol/L Carbon Dioxide 15.9 L (21.6-31.8) mmol/L BUN 28.4 H (9.0-27.0) mg/dL BUN/Creatinine Ratio 28.40 H (12.00-20.00) Ratio Glucose 168 H (70-110) mg/dL POC Glucose (mg/dL) 159 H (70-110) mg/dL Hemoglobin A1c (<=6.0) % 06/18/23 Range/Units 12:29 WBC (4.50-10.00) X 10*3/uL RBC (4.10-5.20) X 10*6/uL Hgb (12.0-15.0) d/dL Hct (37.2-46.3) % MCH (27.0-32.0) pg MCHC (32.0-37.0) d/dL RDW (11.5-14.5) % Plt Count (140-440) X 10*3/uL Sodium (135-145) mmol/L Carbon Dioxide (21.6-31.8) mmol/L BUN (9.0-27.0) mg/dL BUN/Creatinine Ratio (12.00-20.00) Ratio Glucose (70-110) mg/dL POC Glucose (mg/dL) 237 H (70-110) mg/dL Hemoglobin A1c (<=6.0) % Assessment and Plan (1) Non-pressure chronic ulcer of skin of other sites with fat layer exposed Current Visit: Yes Status: Acute Code(s): L98.492 - NON-PRS CHRONIC ULCER OF SKIN OF SITES W FAT LAYER EXPOSED SNOMED Code(s): 46972848 (2) Leukocytosis Current Visit: No Status: Acute Code(s): D72.829 - ELEVATED WHITE BLOOD CELL COUNT, UNSPECIFIED SNOMED Code(s): 061426510 Plan: 1patient presented to hospital with concern for irritation around her colostomy site along with the pain and leakage concerning for abdominal wall cellulitis in this patient who do have mild elevated white count and CRP concerning for possible gram-negative pathogen. 2positive UA in the setting of elevated white count , underlying UTI not entirely excluded 3Patient to continue with cefepime awaiting cultures to be finalize Dictation was produced using [employer] dictation software. please excuse any grammatical, word or spelling errors. Time with Patient: Less than 30
--- NOTE | 2023-06-19 17:07 | P.PN ---
Subjective Progress Note Date: 06/19/23 Principal diagnosis: Leukocytosis, UTI, abdominal wall cellulitis Patient is a 68-year-old female with a past medical history significant for diabetes mellitus hypertension COPD patient did have history of bowel resection and did have colostomy presenting to the ER with concern for issues with leaking from her colostomy bag , patient also noticed a mildly elevated white count and positive UA. On today's evaluation that is 06/19/2023, the patient remains to be afebrile, the patient is breathing comfortably without need for supplemental oxygen , the patient denies chest pain and no significant cough, patient denies nausea/vomiting /diarrhea and discomfort around the colostomy site has decreased complaining of some itching Patient did have a white count of 10.54, creatinine is 0.8 Objective - Vital Signs Vital signs: Vital Signs Temp 98.3 F 06/19/23 07:00 Pulse 83 06/19/23 07:00 Resp 16 06/19/23 07:00 BP 178/75 06/19/23 07:00 Pulse Ox 100 06/19/23 07:00 FiO2 Intake & Output 06/18/23 06/19/23 06/19/23 18:59 06:59 18:59 Intake Total 100 Balance 100 Intake: Intake, IV Titration 100 Amount Cefepime 2 gm In Sodium 100 Chloride 0.9% 100 ml @ 25 mls/hr IVPB Q12HR [facility] Rx #:[id number] Other: Voiding Method Bedside Commode Bedpan Bedpan # Voids 2 3 - Exam GENERAL DESCRIPTION: An elderly female lying in bed in no distress RESPIRATORY SYSTEM: Unlabored breathing , decreased breath sounds at bases HEART: S1 S2 regular rate and rhythm , ABDOMEN: Soft , no tenderness EXTREMITIES: No edema feet - Labs CBC & Chem 7: 06/19/23 05:20 06/19/23 05:20 Labs: Abnormal Lab Results - Last 24 Hours (Table) 06/18/23 06/18/23 06/19/23 Range/Units 17:26 20:20 05:20 WBC 10.54 H (4.50-10.00) X 10*3/uL RBC 3.76 L (4.10-5.20) X 10*6/uL Hgb 10.1 L (12.0-15.0) d/dL Hct 30.3 L (37.2-46.3) % MCH 26.9 L (27.0-32.0) pg RDW 15.2 H (11.5-14.5) % MPV 9.1 L (9.5-12.2) FL Sodium (135-145) mmol/L Carbon Dioxide (21.6-31.8) mmol/L Glucose (70-110) mg/dL POC Glucose (mg/dL) 253 H 198 H (70-110) mg/dL Alkaline Phosphatase (41-126) U/L Globulin (1.6-3.3) d/dL Albumin/Globulin Ratio (1.60-3.17) Ratio 06/19/23 06/19/23 06/19/23 Range/Units 05:20 05:57 12:29 WBC (4.50-10.00) X 10*3/uL RBC (4.10-5.20) X 10*6/uL Hgb (12.0-15.0) d/dL Hct (37.2-46.3) % MCH (27.0-32.0) pg RDW (11.5-14.5) % MPV (9.5-12.2) FL Sodium 133 L (135-145) mmol/L Carbon Dioxide 19.4 L (21.6-31.8) mmol/L Glucose 180 H (70-110) mg/dL POC Glucose (mg/dL) 187 H 212 H (70-110) mg/dL Alkaline Phosphatase 136 H (41-126) U/L Globulin 3.7 H (1.6-3.3) d/dL Albumin/Globulin Ratio 1.05 L (1.60-3.17) Ratio Assessment and Plan (1) Non-pressure chronic ulcer of skin of other sites with fat layer exposed Current Visit: Yes Status: Acute Code(s): L98.492 - NON-PRS CHRONIC ULCER OF SKIN OF SITES W FAT LAYER EXPOSED SNOMED Code(s): 87575834 (2) Leukocytosis Current Visit: No Status: Acute Code(s): D72.829 - ELEVATED WHITE BLOOD CELL COUNT, UNSPECIFIED SNOMED Code(s): 779577857 Plan: 1patient presented to hospital with concern for irritation around her colostomy site along with the pain and leakage concerning for abdominal wall cellulitis in this patient who do have mild elevated white count and CRP concerning for possi ble gram-negative pathogen. 2positive UA in the setting of elevated white count , underlying UTI not entirely excluded 3Patient is afebrile and white count is trending down, to continue with cefepim e awaiting cultures to be finalize Dictation was produced using [employer] dictation software. please excuse any grammatical, word or spelling errors. Time with Patient: Less than 30
[2023-06-19 17:14] LABS: Glucose,Whole Blood 233 mg/dL (70-110)
[2023-06-19 20:24] LABS: Glucose,Whole Blood 255 mg/dL (70-110)
[2023-06-19] MEDS: ZOLPIDEM 5 MG TAB PO PRN (23:52)
[2023-06-20] MEDS: HYDROmorphone 1 MG/ML 1 ML SYRINGE IVP PRN ×2 (00:56→06:55)
[2023-06-20] MEDS: LEVOTHYROXINE 88 MCG TAB PO SCH (05:44)
[2023-06-20] MEDS: HYDROPHILIC CREAM 180 GM TUBE TOPICAL SCH ×2 (05:45→18:01)
[2023-06-20 06:26] LABS: Glucose,Whole Blood 179 mg/dL (70-110)
[2023-06-20] MEDS: INSULIN ASPART (NovoLOG) 100 UNIT/ML VIAL SQ SCH ×5 (06:54→20:58)
--- NOTE | 2023-06-20 08:44 | P.PN ---
Subjective Principal diagnosis: Colostomy leakage with cellulitis of the abdomen The patient is essentially here for continued colostomy leakage. I've discussed with her that she might need to go to tertiary care center upon discharge. No fever but still some abdominal pain. Dilaudid for the Next Day or so. Objective - Vital Signs Vital signs: Vital Signs Temp 98.7 F 06/20/23 07:00 Pulse 79 06/20/23 07:00 Resp 16 06/20/23 07:00 BP 120/67 06/20/23 07:00 Pulse Ox 97 06/20/23 07:00 FiO2 Intake & Output 06/19/23 06/20/23 06/20/23 18:59 06:59 18:59 Output Total 100 Balance -100 Output: Stool 100 Other: Voiding Method Bedpan Bedside Commode # Voids 3 # Bowel Movements 0 - Constitutional General appearance: Present: average body habitus - EENT Eyes: Absent: abnormal pupil - Neck Neck: Absent: lymphadenopathy - Respiratory Respiratory: bilateral: diminished - Cardiovascular Rhythm: regular Heart sounds: normal: S1, S2 Abnormal Heart Sounds: Absent: S3 Gallop - Gastrointestinal Gastrointestinal Comment(s): Again colostomy noted. General gastrointestinal: Present: soft - Integumentary Integumentary: Present: cellulitis - Labs CBC & Chem 7: 06/19/23 05:20 06/19/23 05:20 Labs: Abnormal Lab Results - Last 24 Hours (Table) 06/19/23 06/19/23 06/19/23 Range/Units 05:20 05:20 12:29 WBC 10.54 H (4.50-10.00) X 10*3/uL RBC 3.76 L (4.10-5.20) X 10*6/uL Hgb 10.1 L (12.0-15.0) d/dL Hct 30.3 L (37.2-46.3) % MCH 26.9 L (27.0-32.0) pg RDW 15.2 H (11.5-14.5) % MPV 9.1 L (9.5-12.2) FL Sodium 133 L (135-145) mmol/L Carbon Dioxide 19.4 L (21.6-31.8) mmol/L Glucose 180 H (70-110) mg/dL POC Glucose (mg/dL) 212 H (70-110) mg/dL Alkaline Phosphatase 136 H (41-126) U/L Globulin 3.7 H (1.6-3.3) d/dL Albumin/Globulin Ratio 1.05 L (1.60-3.17) Ratio 06/19/23 06/19/23 06/20/23 Range/Units 17:13 20:23 06:24 WBC (4.50-10.00) X 10*3/uL RBC (4.10-5.20) X 10*6/uL Hgb (12.0-15.0) d/dL Hct (37.2-46.3) % MCH (27.0-32.0) pg RDW (11.5-14.5) % MPV (9.5-12.2) FL Sodium (135-145) mmol/L Carbon Dioxide (21.6-31.8) mmol/L Glucose (70-110) mg/dL POC Glucose (mg/dL) 233 H 255 H 179 H (70-110) mg/dL Alkaline Phosphatase (41-126) U/L Globulin (1.6-3.3) d/dL Albumin/Globulin Ratio (1.60-3.17) Ratio Assessment and Plan (1) Colostomy dysfunction Current Visit: Yes Status: Acute Code(s): K94.03 - COLOSTOMY MALFUNCTION SNOMED Code(s): 29852830 (2) Nicotine dependence with current use Current Visit: Yes Status: Acute Code(s): F17.200 - NICOTINE DEPENDENCE, UNSPECIFIED, UNCOMPLICATED SNOMED Code(s): 78627409 (3) Non-pressure chronic ulcer of skin of other sites with fat layer exposed Current Visit: Yes Status: Acute Code(s): L98.492 - NON-PRS CHRONIC ULCER OF SKIN OF SITES W FAT LAYER EXPOSED SNOMED Code(s): 10053666 Plan: Continue current regimen or treatment. I did discuss that we might need to have her sent to tertiary care center. New Check CBC and CMP in a.m. Anticipate discharge transfer in the next 24-48 hours
[2023-06-20] MEDS: FAMOTIDINE 20 MG TAB PO SCH ×2 (09:10→20:49)
[2023-06-20] MEDS: ATORVASTATIN 40 MG TAB PO SCH (09:10)
[2023-06-20] MEDS: HEPARIN SODIUM,PORCINE 5,000 UNIT/ML 1 ML VIAL SQ SCH ×2 (09:10→20:49)
[2023-06-20] MEDS: FLUoxetine HCL 20 MG CAP PO SCH (09:10)
[2023-06-20] MEDS: LORATADINE 10 MG TAB PO SCH ×2 (09:11→20:50)
[2023-06-20] MEDS: HYDROmorphone 0.5 MG/0.5 ML SYRINGE IVP PRN ×4 (09:11→20:49)
[2023-06-20] MEDS: CEFEPIME 2 GM in SODIUM CHLORIDE 0.9% 100 ML IVPB SCH ×2 (10:04→20:48)
--- NOTE | 2023-06-20 12:27 | P.PN ---
Subjective Progress Note Date: 06/20/23 Principal diagnosis: Leukocytosis, UTI, abdominal wall cellulitis Patient is a 68-year-old female with a past medical history significant for diabetes mellitus hypertension COPD patient did have history of bowel resection and did have colostomy presenting to the ER with concern for issues with leaking from her colostomy bag , patient also noticed a mildly elevated white count and positive UA. On today's evaluation that is 06/20/2023, the patient continues to be afebrile, the patient is breathing comfortably on room air, the patient denies chest pain and no cough, patient denies nausea/vomiting /diarrhea , however still complaining of leakage from his colostomy Patient did have a white count of 10.54, creatinine is 0.8 as of yesterday no lab draw today Objective - Vital Signs Vital signs: Vital Signs Temp 98.7 F 06/20/23 07:00 Pulse 79 06/20/23 07:00 Resp 16 06/20/23 09:00 BP 120/67 06/20/23 07:00 Pulse Ox 97 06/20/23 07:00 FiO2 Intake & Output 06/19/23 06/20/23 06/20/23 18:59 06:59 18:59 Output Total 100 100 Balance -100 -100 Output: Stool 100 100 Other: Voiding Method Bedpan Bedside Commode Bedside Commode # Voids 3 # Bowel Movements 0 - Exam GENERAL DESCRIPTION: An elderly female lying in bed in no distress RESPIRATORY SYSTEM: Unlabored breathing , decreased breath sounds at bases HEART: S1 S2 regular rate and rhythm , ABDOMEN: Soft , no tenderness EXTREMITIES: No edema feet - Labs CBC & Chem 7: 06/19/23 05:20 06/19/23 05:20 Labs: Abnormal Lab Results - Last 24 Hours (Table) 06/19/23 06/19/23 06/19/23 Range/Units 12:29 17:13 20:23 POC Glucose (mg/dL) 212 H 233 H 255 H (70-110) mg/dL 06/20/23 Range/Units 06:24 POC Glucose (mg/dL) 179 H (70-110) mg/dL Assessment and Plan (1) Non-pressure chronic ulcer of skin of other sites with fat layer exposed Current Visit: Yes Status: Acute Code(s): L98.492 - NON-PRS CHRONIC ULCER OF SKIN OF SITES W FAT LAYER EXPOSED SNOMED Code(s): 61569495 (2) Leukocytosis Current Visit: No Status: Acute Code(s): D72.829 - ELEVATED WHITE BLOOD CELL COUNT, UNSPECIFIED SNOMED Code(s): 002559605 Plan: 1patient presented to hospital with concern for irritation around her colostomy site along with the pain and leakage concerning for abdominal wall cellulitis in this patient who do have mild elevated white count and CRP concerning for possible gram-negative pathogen. 2positive UA in the setting of elevated white count , underlying UTI not entirely excluded 3Patient is afebrile and white count is trending down as of yesterday we will repeat a CBC and CRP with a.m. lab, to continue with cefepime and monitor clinical course closely Dictation was produced using [employer] dictation software. please excuse any grammatical, word or spelling errors.
[2023-06-20] MEDS: IOPAMIDOL CONTRAST (ORAL USE) VIAL PO PRN ×2 (12:48→13:51)
[2023-06-20 12:50] LABS: Glucose,Whole Blood 246 mg/dL (70-110)
[2023-06-20] MEDS: OXYBUTYNIN 10 MG TAB.ER.24 PO SCH (13:03)
--- NOTE | 2023-06-20 13:38 | P.PN ---
Subjective Progress Note Date: 06/20/23 CHIEF COMPLAINT: Skin breakdown at ostomy site HISTORY OF PRESENT ILLNESS: Patient continues to complain of pain at her ostomy site and around the ostomy where the skin is irritated. Patient's classic con tinues to have issues with leaking. She is now having some purulent drainage from the midline incision. Afebrile. PHYSICAL EXAM: VITAL SIGNS: Reviewed. GENERAL: Well-developed in no acute distress. ABDOMEN: Soft. Nondistended. Ileostomy bag with stool leaking from edge. Skin irritation noted below ostomy bag. NEUROLOGIC: Alert and oriented. Cranial nerves II through XII grossly intact. ASSESSMENT: 1. Complication of ileostomy: Stoma separation from 6 to 12 o'clock position with mild retraction of stoma noted. Irritation of the skin of the abdominal wall due to stool leaking onto the skin 2. Recent ileostomy revision on 05/27/2023 3. 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 Signing provider agrees with the documented findings, assessment, and plan of care. I have personally seen and examined the patient, reviewed the LAWN MOWER OPERATOR /PAs history, exam and MDM and agree with the assessment and plan as written. Based on total visit time, I have performed more than 50% of the visit. As above: Patient has intermittent episodes of leaking around the ostomy site. CAT scan performed yesterday to evaluate the midline incision drainage. There is no tracking from the ostomy site to the midline. Continue local wound care. Recommend tertiary care evaluation where a certified ostomy nurse can hopefully help this patient better. Objective - Vital Signs Vital signs: Vital Signs Temp 98.7 F 06/20/23 07:00 Pulse 79 06/20/23 07:00 Resp 16 06/20/23 07:00 BP 120/67 06/20/23 07:00 Pulse Ox 97 06/20/23 07:00 FiO2 Intake & Output 06/19/23 06/20/23 06/20/23 18:59 06:59 18:59 Output Total 100 Balance -100 Output: Stool 100 Other: Voiding Method Bedpan Bedside Commode # Voids 3 # Bowel Movements 0 - Labs CBC & Chem 7: 06/21/23 05:55 06/21/23 05:55 Labs: Abnormal Lab Results - Last 24 Hours (Table) 06/19/23 06/19/23 06/19/23 Range/Units 05:20 12:29 17:13 Sodium 133 L (135-145) mmol/L Carbon Dioxide 19.4 L (21.6-31.8) mmol/L Glucose 180 H (70-110) mg/dL POC Glucose (mg/dL) 212 H 233 H (70-110) mg/dL Alkaline Phosphatase 136 H (41-126) U/L Globulin 3.7 H (1.6-3.3) d/dL Albumin/Globulin Ratio 1.05 L (1.60-3.17) Ratio 06/19/23 06/20/23 Range/Units 20:23 06:24 Sodium (135-145) mmol/L Carbon Dioxide (21.6-31.8) mmol/L Glucose (70-110) mg/dL POC Glucose (mg/dL) 255 H 179 H (70-110) mg/dL Alkaline Phosphatase (41-126) U/L Globulin (1.6-3.3) d/dL Albumin/Globulin Ratio (1.60-3.17) Ratio
--- NOTE | 2023-06-20 14:47 | CT ---
EXAMINATION TYPE: CT abdomen pelvis wo con CT DLP: 1026.1 mGycm, Automated exposure control for dose reduction was used. DATE OF EXAM: 06/20/2023 2:33 PM COMPARISON: CT abdomen pelvis most recent from 05/24/2023 CLINICAL INDICATION:Female, 68 years old with history of ostomy wound; ostomy wound TECHNIQUE: Axial CT of the abdomen and pelvis. Sagittal and coronal reformats were created on a [employer] workstation. Contrast used: mL of , (none if empty) Oral contrast used: without Oral Contrast (none if empty) FINDINGS: LOWER CHEST: The heart is mildly enlarged for size. Aortic valve consultations. Lipomatous hypertroph y of interatrial septum. ABDOMEN LIVER: Unremarkable GALLBLADDER AND BILE DUCTS: Unremarkable. PANCREAS: Unremarkable. SPLEEN: Unremarkable. ADRENAL GLANDS: Unremarkable. KIDNEYS AND URETERS: No evidence of hydronephrosis or renal calculus. The ureters are unremarkable. PELVIS BLADDER: Unremarkable REPRODUCTIVE: Unremarkable. ABDOMEN & PELVIS STOMACH AND BOWEL: No evidence of bowel obstruction. PERITONEUM/RETROPERITONEUM: No evidence of pneumoperitoneum or free fluid. VASCULATURE: No evidence of aortic aneurysm. MUSCULOSKELETAL: Multilevel degeneration changes throughout the spine with hardware at L4-L5 and disc ectomy also present at L4-L5. Multilevel degeneration with osteophyte formation and facet arthropathy is present. Iqra-tp-[id number] neural foraminal stenosis at L5-S1. LYMPH NODES: No gross evidence for lymphadenopathy. SOFT TISSUE/ABDOMINAL WALL: To the right and superior of the ostomy is a predominantly air-filled tra ct extending into the subcutaneous tissues. This is best appreciated on sagittal imaging series 7 reina ge 56 and series 3 image 48. Postsurgical changes to the anterior midline abdominal wall. IMPRESSION: Gaseous tract extending into the subcutaneous tissues near the ostomy could represent packing materia l versus feces. There is some adjacent inflammation. No organizing fluid collection is present. The o stomy is in the medial to this area.
[2023-06-20] MEDS: diphenhydrAMINE 25 MG CAP PO PRN (16:00)
[2023-06-20 16:10] LABS: HCT 28.2 % (37.2-46.3); HGB 9.3 d/dL (12.0-15.0); MCH 26.7 pg (27.0-32.0); NRBC Per 100 WBC 0 X 10*3/uL (0.00-0.01); Platelet Count 129 X 10*3/uL (140-440); RBC 3.48 X 10*6/uL (4.10-5.20); RDW 15.6 % (11.5-14.5); WBC 8.47 X 10*3/uL (4.50-10.00)
[2023-06-20 16:11] LABS: ALT 20 U/L (8-44); AST 14 U/L (13-35); Albumin 3.6 d/dL (3.8-4.9); Albumin/Globulin Ratio 1.06 Ratio (1.60-3.17); Alkaline Phosphatase 128 U/L (41-126); BUN/Creat Ratio 12.38 Ratio (12.00-20.00); Blood Urea Nitrogen 9.9 mg/dL (9.0-27.0); Calcium 9.4 mg/dL (8.7-10.3); Carbon Dioxide 19.6 mmol/L (21.6-31.8); Chloride 104 mmol/L (96-109); Globulin 3.4 d/dL (1.6-3.3); Glucose 203 mg/dL (70-110); Sodium 135 mmol/L (135-145); Total Bilirubin 0.2 mg/dL (0.3-1.2)
[2023-06-20] MEDS: SODIUM CHLORIDE 0.9% 1,000 ML IV SCH ×2 (16:58→20:52)
[2023-06-20 17:32] LABS: Glucose,Whole Blood 152 mg/dL (70-110)
[2023-06-20] MEDS: QUEtiapine 200 MG TAB PO SCH (20:48)
[2023-06-20 20:55] LABS: Glucose,Whole Blood 141 mg/dL (70-110)
[2023-06-21] MEDS: HYDROmorphone 0.5 MG/0.5 ML SYRINGE IVP PRN ×6 (02:44→20:35)
[2023-06-21] MEDS: HYDROPHILIC CREAM 180 GM TUBE TOPICAL SCH ×2 (05:56→17:48)
[2023-06-21] MEDS: LEVOTHYROXINE 88 MCG TAB PO SCH (06:05)
[2023-06-21] MEDS: INSULIN ASPART (NovoLOG) 100 UNIT/ML VIAL SQ SCH ×4 (06:09→20:00)
[2023-06-21 06:10] LABS: Glucose,Whole Blood 152 mg/dL (70-110)
[2023-06-21 08:40] LABS: HCT 27.7 % (37.2-46.3); HGB 9.2 d/dL (12.0-15.0); MCH 26.8 pg (27.0-32.0); MCHC 33.2 d/dL (32.0-37.0); MCV 80.8 FL (80.0-97.0); Mean Platelet Volume 9.5 FL (9.5-12.2); NRBC Per 100 WBC 0 X 10*3/uL (0.00-0.01); Platelet Count 131 X 10*3/uL (140-440); RBC 3.43 X 10*6/uL (4.10-5.20); RDW 15.7 % (11.5-14.5); WBC 7.79 X 10*3/uL (4.50-10.00)
[2023-06-21] MEDS: ATORVASTATIN 40 MG TAB PO SCH (08:51)
[2023-06-21] MEDS: CEFEPIME 2 GM in SODIUM CHLORIDE 0.9% 100 ML IVPB SCH ×2 (08:51→15:54)
[2023-06-21] MEDS: OXYBUTYNIN 10 MG TAB.ER.24 PO SCH (08:51)
[2023-06-21] MEDS: FAMOTIDINE 20 MG TAB PO SCH ×2 (08:51→20:00)
[2023-06-21] MEDS: FLUoxetine HCL 20 MG CAP PO SCH (08:51)
[2023-06-21] MEDS: LORATADINE 10 MG TAB PO SCH ×2 (08:52→20:00)
[2023-06-21] MEDS: HEPARIN SODIUM,PORCINE 5,000 UNIT/ML 1 ML VIAL SQ SCH ×2 (08:52→20:00)
[2023-06-21 08:53] LABS: ALT 16 U/L (8-44); AST 12 U/L (13-35); Albumin 3.3 d/dL (3.8-4.9); Albumin/Globulin Ratio 1.03 Ratio (1.60-3.17); Alkaline Phosphatase 112 U/L (41-126); Blood Urea Nitrogen 9.1 mg/dL (9.0-27.0); Calcium 9.5 mg/dL (8.7-10.3); Chloride 108 mmol/L (96-109); Globulin 3.2 d/dL (1.6-3.3); Glucose 152 mg/dL (70-110); Potassium 3.8 mmol/L (3.5-5.5); Sodium 137 mmol/L (135-145); Total Bilirubin 0.2 mg/dL (0.3-1.2); Total Protein 6.5 d/dL (6.2-8.2)
--- NOTE | 2023-06-21 09:10 | P.DS ---
Providers Date of admission: 06/17/23 04:09 Attending physician: Yomi Kennedy Consults: 06/17/23 04:07 Consult Physician Routine Consulting Provider: Miguelito Angeles Consult Reason/Comments: colostomy leakage Do you want consulting provider notified?: Yes 06/17/23 11:14 Consult Physician Routine Consulting Provider: Juan Vaughn Consult Reason/Comments: Infected colostomy site Do you want consulting provider notified?: Yes Primary care physician: Yomi Kennedy - Discharge Diagnosis(es) (1) Colostomy dysfunction Current Visit: Yes Status: Acute (2) THIERRY (acute kidney injury) Current Visit: No Status: Acute (3) COPD (chronic obstructive pulmonary disease) Current Visit: No Status: Acute (4) Complication of ostomy Current Visit: No Status: Acute (5) History of below-knee amputation of right lower extremity Current Visit: No Status: Acute (6) History of ischemic colitis Current Visit: No Status: Acute (7) Hypertension Current Visit: No Status: Acute (8) Opioid dependence Current Visit: No Status: Acute (9) Type 2 diabetes mellitus Current Visit: No Status: Acute Hospital Course: This is a 68-year-old female who presented to the emergency department with comp laints of colostomy leakage and cellulitis of her abdomen. She has had ongoing issues with her colostomy bag fitting right. She has had leakage of fecal matter on her stomach, which has caused severe erythema and pain. She has improved since admission. Aquacel Silver is being applied to site. She is cleared for discharge. We'll check with infectious disease about need for antibiotics at discharge. Patient seen and evaluated by nurse practitioner, physician in agreement with plan Patient Condition at Discharge: Good Plan - Discharge Summary Discharge Rx Participant: No New Discharge Prescriptions: Continue Oxybutynin Chloride [oxyBUTYnin chloride ER] 10 mg PO DAILY Fluticasone Nasal [place] [Flonase Nasal [place]] 1 spr EA NOSTRIL HS Albuterol Inhaler [Ventolin Hfa Inhaler] 2 puff INHALATION RT-QID PRN PRN Reason: Shortness Of Breath Cholecalciferol (Vitamin D3) [Vitamin D3 (125 MCG = 5,000 IU)] 125 mcg PO DAILY Fluticasone Propion/Salmeterol [Advair 500-50 Diskus] 1 puff INHALATION RT- BID Gabapentin 800 mg PO TID FLUoxetine HCL 40 mg PO DAILY Ibuprofen [Motrin] 600 mg PO Q8HR PRN PRN Reason: Pain Primidone [Mysoline] 25 mg PO BID Montelukast [Singulair] 10 mg PO HS Mupirocin 2% Oint [Bactroban 2% Oint] 1 applic TOPICAL BID Levothyroxine Sodium 88 mcg PO DAILY Atorvastatin [Lipitor] 40 mg PO DAILY Triamcinolone 0.1% Cream [Kenalog 0.1% Cream] 1 applic TOPICAL BID PRN PRN Reason: Rash Aspirin 325 mg PO DAILY #30 tab Levocetirizine Dihydrochloride [Xyzal] 5 mg PO BID Famotidine [Pepcid] 20 mg PO BID metFORMIN HCL 1,000 mg PO BID QUEtiapine [SEROquel] 200 mg PO HS LORazepam [Ativan] 1 mg PO Q6H PRN PRN Reason: Anxiety Acetaminophen Tab [Tylenol] 1,000 mg PO Q6HR PRN #30 tablet PRN Reason: Pain Insulin Glargine,Hum.rec.anlog [Lantus Solostar Pen] 30 units SQ BID #3 each HYDROcodone/APAP 10-325MG [[place] 10-325] 1 tab PO Q6H PRN PRN Reason: Pain Discharge Medication List Oxybutynin Chloride [oxyBUTYnin chloride ER] 10 mg PO DAILY 08/17/20 [History] Fluticasone Nasal [place] [Flonase Nasal [place]] 1 spr EA NOSTRIL HS 09/17/21 [History] Albuterol Inhaler [Ventolin Hfa Inhaler] 2 puff INHALATION RT-QID PRN 12/14/21 [History] Levothyroxine Sodium 88 mcg PO DAILY 12/14/21 [History] Atorvastatin [Lipitor] 40 mg PO DAILY 06/16/22 [History] Cholecalciferol (Vitamin D3) [Vitamin D3 (125 MCG = 5,000 IU)] 125 mcg PO DAILY 06/16/22 [History] Fluticasone Propion/Salmeterol [Advair 500-50 Diskus] 1 puff INHALATION RT-BID 06/16/22 [History] Triamcinolone 0.1% Cream [Kenalog 0.1% Cream] 1 applic TOPICAL BID PRN 06/16/22 [History] Aspirin 325 mg PO DAILY #30 tab 06/18/22 [Rx] Famotidine [Pepcid] 20 mg PO BID 01/19/23 [History] Levocetirizine Dihydrochloride [Xyzal] 5 mg PO BID 01/19/23 [History] FLUoxetine HCL 40 mg PO DAILY 03/31/23 [History] Gabapentin 800 mg PO TID 03/31/23 [History] Ibuprofen [Motrin] 600 mg PO Q8HR PRN 03/31/23 [History] LORazepam [Ativan] 1 mg PO Q6H PRN 03/31/23 [History] QUEtiapine [SEROquel] 200 mg PO HS 03/31/23 [History] metFORMIN HCL 1,000 mg PO BID 03/31/23 [History] Montelukast [Singulair] 10 mg PO HS 05/07/23 [History] Primidone [Mysoline] 25 mg PO BID 05/07/23 [History] Acetaminophen Tab [Tylenol] 1,000 mg PO Q6HR PRN #30 tablet 06/01/23 [Rx] Insulin Glargine,Hum.rec.anlog [Lantus Solostar Pen] 30 units SQ BID #3 each 06/01/23 [Rx] HYDROcodone/APAP 10-325MG [[place] 10-325] 1 tab PO Q6H PRN 06/17/23 [History] Mupirocin 2% Oint [Bactroban 2% Oint] 1 applic TOPICAL BID 06/17/23 [History] Follow up Appointment(s)/Referral(s): Yomi Kennedy MD [Primary Care Provider] - 1-2 days [facility] Visiting Nurse, [NON-STAFF] - Discharge Disposition: HOME SELF-CARE
--- NOTE | 2023-06-21 11:58 | P.PN ---
Subjective Progress Note Date: 06/21/23 CHIEF COMPLAINT: Skin breakdown at ostomy site HISTORY OF PRESENT ILLNESS: Patient is still having issues with her ostomy leaking. She still complains of abdominal pain. Computed tomography scan abdomen and pelvis showing reports gaseous tract extending into the subcutaneous tissues near the ostomy could represent packing material versus feces. There is some adjacent inflammation. No organizing fluid collection is present. Afebrile. WBC 7.79 Hgb 9.2 platelets 131 sodium 137 potassium 3.8 creatinine 0.7. Culture results are pending PHYSICAL EXAM: VITAL SIGNS: Reviewed. GENERAL: Well-developed in no acute distress. ABDOMEN: Soft. Nondistended. Ileostomy bag with stool leaking from edge. Skin irritation noted below ostomy bag. Midline incision with small pinhole opening that is leaking purulent drainage NEUROLOGIC: Alert and oriented. Cranial nerves II through XII grossly intact. ASSESSMENT: 1. Complication of ileostomy: Stoma separation from 6 to 12 o'clock position with mild retraction of stoma noted. Irritation of the skin of the abdominal wall due to stool leaking onto the skin 2. Recent ileostomy revision on 05/27/2023 3. History of ischemic bowel status post colectomy with end ileostomy on 01/19/2023 PLAN: -Continue clear liquid diet -Continue local wound care -Continue to monitor -Antibiotics per ID service -Recommend tertiary care evaluation where a certified ostomy nurse can hopefully help this patient better. Physician Financial Systems Director note has been reviewed by physician. Signing provider agrees with the documented findings, assessment, and plan of care. Objective - Vital Signs Vital signs: Vital Signs Temp 98.4 F 06/21/23 07:00 Pulse 88 06/21/23 07:00 Resp 16 06/21/23 07:00 BP 109/68 06/21/23 07:00 Pulse Ox 94 L 06/21/23 07:00 FiO2 Intake & Output 06/20/23 06/21/23 06/21/23 18:59 06:59 18:59 Intake Total 1080 Output Total 100 350 Balance 980 -350 Intake: Oral 1080 Output: Stool 100 350 Other: Voiding Method Bedside Commode - Labs CBC & Chem 7: 06/21/23 05:55 06/21/23 05:55 Labs: Abnormal Lab Results - Last 24 Hours (Table) 06/20/23 06/20/23 06/20/23 Range/Units 08:57 08:57 12:49 RBC 3.48 L (4.10-5.20) X 10*6/uL Hgb 9.3 L (12.0-15.0) d/dL Hct 28.2 L (37.2-46.3) % MCH 26.7 L (27.0-32.0) pg RDW 15.6 H (11.5-14.5) % Plt Count 129 L (140-440) X 10*3/uL Carbon Dioxide 19.6 L (21.6-31.8) mmol/L Glucose 203 H (70-110) mg/dL POC Glucose (mg/dL) 246 H (70-110) mg/dL Total Bilirubin 0.2 L (0.3-1.2) mg/dL AST (13-35) U/L Alkaline Phosphatase 128 H (41-126) U/L Albumin 3.6 L (3.8-4.9) d/dL Globulin 3.4 H (1.6-3.3) d/dL Albumin/Globulin Ratio 1.06 L (1.60-3.17) Ratio 06/20/23 06/20/23 06/21/23 Range/Units 17:31 20:53 05:55 RBC 3.43 L (4.10-5.20) X 10*6/uL Hgb 9.2 L (12.0-15.0) d/dL Hct 27.7 L (37.2-46.3) % MCH 26.8 L (27.0-32.0) pg RDW 15.7 H (11.5-14.5) % Plt Count 131 L (140-440) X 10*3/uL Carbon Dioxide (21.6-31.8) mmol/L Glucose (70-110) mg/dL POC Glucose (mg/dL) 152 H 141 H (70-110) mg/dL Total Bilirubin (0.3-1.2) mg/dL AST (13-35) U/L Alkaline Phosphatase (41-126) U/L Albumin (3.8-4.9) d/dL Globulin (1.6-3.3) d/dL Albumin/Globulin Ratio (1.60-3.17) Ratio 10/05/23 10/05/23 Range/Units 05:55 06:08 RBC (4.10-5.20) X 10*6/uL Hgb (12.0-15.0) d/dL Hct (37.2-46.3) % MCH (27.0-32.0) pg RDW (11.5-14.5) % Plt Count (140-440) X 10*3/uL Carbon Dioxide 18.0 L (21.6-31.8) mmol/L Glucose 152 H (70-110) mg/dL POC Glucose (mg/dL) 152 H (70-110) mg/dL Total Bilirubin 0.2 L (0.3-1.2) mg/dL AST 12 L (13-35) U/L Alkaline Phosphatase (41-126) U/L Albumin 3.3 L (3.8-4.9) d/dL Globulin (1.6-3.3) d/dL Albumin/Globulin Ratio 1.03 L (1.60-3.17) Ratio
[2023-06-21 13:17] LABS: Glucose,Whole Blood 189 mg/dL (70-110)
--- NOTE | 2023-06-21 15:10 | P.PN ---
Subjective Progress Note Date: 06/21/23 Principal diagnosis: Leukocytosis, UTI, abdominal wall cellulitis Patient is a 68-year-old female with a past medical history significant for diabetes mellitus hypertension COPD patient did have history of bowel resection and did have colostomy presenting to the ER with concern for issues with leaking from her colostomy bag , patient also noticed a mildly elevated white count and positive UA. On today's evaluation that is 06/21/2023, the patient remains to be afebrile, the patient is breathing comfortably on room air , the patient denies chest pain shortness of breath or cough, patient denies nausea/vomiting /diarrhea and no abdominal pain however still complaining of leakage from his colostomy Patient did have a white count of 7.79, creatinine is 0.7 Objective - Vital Signs Vital signs: Vital Signs Temp 98.4 F 06/21/23 07:00 Pulse 88 06/21/23 07:00 Resp 16 06/21/23 07:00 BP 109/68 06/21/23 07:00 Pulse Ox 94 L 06/21/23 07:00 FiO2 Intake & Output 06/20/23 06/21/23 06/21/23 18:59 06:59 18:59 Intake Total 1080 Output Total 100 350 Balance 980 -350 Intake: Oral 1080 Output: Stool 100 350 Other: Voiding Method Bedside Commode - Exam GENERAL DESCRIPTION: An elderly female lying in bed in no distress RESPIRATORY SYSTEM: Unlabored breathing , decreased breath sounds at bases HEART: S1 S2 regular rate and rhythm , ABDOMEN: Soft , no tenderness EXTREMITIES: No edema feet - Labs CBC & Chem 7: 06/21/23 05:55 06/21/23 05:55 Labs: Abnormal Lab Results - Last 24 Hours (Table) 06/20/23 06/20/23 06/20/23 Range/Units 08:57 08:57 17:31 RBC 3.48 L (4.10-5.20) X 10*6/uL Hgb 9.3 L (12.0-15.0) d/dL Hct 28.2 L (37.2-46.3) % MCH 26.7 L (27.0-32.0) pg RDW 15.6 H (11.5-14.5) % Plt Count 129 L (140-440) X 10*3/uL Carbon Dioxide 19.6 L (21.6-31.8) mmol/L Glucose 203 H (70-110) mg/dL POC Glucose (mg/dL) 152 H (70-110) mg/dL Total Bilirubin 0.2 L (0.3-1.2) mg/dL AST (13-35) U/L Alkaline Phosphatase 128 H (41-126) U/L Albumin 3.6 L (3.8-4.9) d/dL Globulin 3.4 H (1.6-3.3) d/dL Albumin/Globulin Ratio 1.06 L (1.60-3.17) Ratio 06/20/23 06/21/23 06/21/23 Range/Units 20:53 05:55 05:55 RBC 3.43 L (4.10-5.20) X 10*6/uL Hgb 9.2 L (12.0-15.0) d/dL Hct 27.7 L (37.2-46.3) % MCH 26.8 L (27.0-32.0) pg RDW 15.7 H (11.5-14.5) % Plt Count 131 L (140-440) X 10*3/uL Carbon Dioxide 18.0 L (21.6-31.8) mmol/L Glucose 152 H (70-110) mg/dL POC Glucose (mg/dL) 141 H (70-110) mg/dL Total Bilirubin 0.2 L (0.3-1.2) mg/dL AST 12 L (13-35) U/L Alkaline Phosphatase (41-126) U/L Albumin 3.3 L (3.8-4.9) d/dL Globulin (1.6-3.3) d/dL Albumin/Globulin Ratio 1.03 L (1.60-3.17) Ratio 06/21/23 Range/Units 06:08 RBC (4.10-5.20) X 10*6/uL Hgb (12.0-15.0) d/dL Hct (37.2-46.3) % MCH (27.0-32.0) pg RDW (11.5-14.5) % Plt Count (140-440) X 10*3/uL Carbon Dioxide (21.6-31.8) mmol/L Glucose (70-110) mg/dL POC Glucose (mg/dL) 152 H (70-110) mg/dL Total Bilirubin (0.3-1.2) mg/dL AST (13-35) U/L Alkaline Phosphatase (41-126) U/L Albumin (3.8-4.9) d/dL Globulin (1.6-3.3) d/dL Albumin/Globulin Ratio (1.60-3.17) Ratio Assessment and Plan (1) Non-pressure chronic ulcer of skin of other sites with fat layer exposed Current Visit: Yes Status: Acute Code(s): L98.492 - NON-PRS CHRONIC ULCER OF SKIN OF SITES W FAT LAYER EXPOSED SNOMED Code(s): 80519086 (2) Leukocytosis Current Visit: No Status: Acute Code(s): D72.829 - ELEVATED WHITE BLOOD CELL COUNT, UNSPECIFIED SNOMED Code(s): 249509413 Plan: 1patient presented to hospital with concern for irritation around her colostomy site along with the pain and leakage concerning for abdominal wall cellulitis in this patient who do have mild elevated white count and CRP concerning for poss ible gram-negative pathogen. 2positive UA in the setting of elevated white count , underlying UTI not entirely excluded 3Patient is afebrile and white count has normalized CT did not show any eviden ce of abscess possible transfer to [facility] to be evaluated by ostomy/surgical team as per discussion with the patient nurse Dictation was produced using [employer] dictation software. please excuse any grammatical, word or spelling errors. Time with Patient: Less than 30
[2023-06-21] MEDS: SODIUM CHLORIDE 0.9% 1,000 ML IV SCH (15:58)
[2023-06-21 17:45] LABS: Glucose,Whole Blood 209 mg/dL (70-110)
[2023-06-21 19:55] LABS: Glucose,Whole Blood 236 mg/dL (70-110)
[2023-06-21] MEDS: QUEtiapine 200 MG TAB PO SCH (20:00)
[2023-06-21] MEDS: ZOLPIDEM 5 MG TAB PO PRN (20:00)
[2023-06-22] MEDS: CEFEPIME 2 GM in SODIUM CHLORIDE 0.9% 100 ML IVPB SCH (00:33)
[2023-06-22] MEDS: SODIUM CHLORIDE 0.9% 1,000 ML IV SCH (04:28)
[2023-06-22 06:25] LABS: Glucose,Whole Blood 159 mg/dL (70-110)
[2023-06-22] MEDS: HYDROPHILIC CREAM 180 GM TUBE TOPICAL SCH (06:28)
[2023-06-22] MEDS: HYDROmorphone 0.5 MG/0.5 ML SYRINGE IVP PRN ×2 (06:28→09:39)
[2023-06-22] MEDS: INSULIN ASPART (NovoLOG) 100 UNIT/ML VIAL SQ SCH (06:28)
[2023-06-22] MEDS: LEVOTHYROXINE 88 MCG TAB PO SCH (06:28)
[2023-06-22 07:51] VITALS: BP 143/76; PULSE 92; RESP 17; TEMP 98.2
[2023-06-22] MEDS: FAMOTIDINE 20 MG TAB PO SCH (09:36)
[2023-06-22] MEDS: HEPARIN SODIUM,PORCINE 5,000 UNIT/ML 1 ML VIAL SQ SCH (09:36)
[2023-06-22] MEDS: OXYBUTYNIN 10 MG TAB.ER.24 PO SCH (09:36)
[2023-06-22] MEDS: FLUoxetine HCL 20 MG CAP PO SCH (09:36)
[2023-06-22] MEDS: ATORVASTATIN 40 MG TAB PO SCH (09:36)
[2023-06-22] MEDS: LORATADINE 10 MG TAB PO SCH (09:40)
--- NOTE | 2023-06-22 10:50 | P.PN ---
Subjective Progress Note Date: 06/22/23 Principal diagnosis: Leukocytosis, UTI, abdominal wall cellulitis Patient is a 68-year-old female with a past medical history significant for diabetes mellitus hypertension COPD patient did have history of bowel resection and did have colostomy presenting to the ER with concern for issues with leaking from her colostomy bag , patient also noticed a mildly elevated white count and positive UA. On today's evaluation that is 06/22/2023, the patient is afebrile, the patient is breathing comfortably on room air , the patient denies chest pain or cough, patient denies Abdominal pain , no nausea/vomiting /diarrhea, the patient is still complaining of leakage from his colostomy Patient did have a white count of 7.79, creatinine is 0.7 as of yesterday no laboratory today Objective - Vital Signs Vital signs: Vital Signs Temp 98.2 F 06/22/23 07:00 Pulse 92 06/22/23 07:00 Resp 17 06/22/23 07:00 BP 143/76 06/22/23 07:00 Pulse Ox 99 06/22/23 07:00 FiO2 Intake & Output 06/21/23 06/22/23 06/22/23 18:59 06:59 18:59 Other: Voiding Method Bedside Commode # Voids 1 0 - Exam GENERAL DESCRIPTION: An elderly female lying in bed in no distress RESPIRATORY SYSTEM: Unlabored breathing , decreased breath sounds at bases HEART: S1 S2 regular rate and rhythm , ABDOMEN: Soft , no tenderness EXTREMITIES: No edema feet - Labs CBC & Chem 7: 06/21/23 05:55 06/21/23 05:55 Labs: Abnormal Lab Results - Last 24 Hours (Table) 06/21/23 06/21/23 06/21/23 Range/Units 13:15 17:44 19:54 POC Glucose (mg/dL) 189 H 209 H 236 H (70-110) mg/dL 06/22/23 Range/Units 06:23 POC Glucose (mg/dL) 159 H (70-110) mg/dL Microbiology - Last 24 Hours (Table) 06/20/23 13:54 Gram Stain - Preliminary Abdomen Assessment and Plan (1) Non-pressure chronic ulcer of skin of other sites with fat layer exposed Current Visit: Yes Status: Acute Code(s): L98.492 - NON-PRS CHRONIC ULCER OF SKIN OF SITES W FAT LAYER EXPOSED SNOMED Code(s): 12651686 (2) Leukocytosis Current Visit: No Status: Acute Code(s): D72.829 - ELEVATED WHITE BLOOD CELL COUNT, UNSPECIFIED SNOMED Code(s): 345226799 Plan: 1patient presented to hospital with concern for irritation around her colostomy site along with the pain and leakage concerning for abdominal wall cellulitis in this patient who do have mild elevated white count and CRP concerning for possible gram-negative pathogen. 2positive UA in the setting of elevated white count , underlying UTI not entirely excluded 3Patient is afebrile and white count has normalized CT did not show any evidence of abscess possible transfer to [place] per the patient to be evaluated by ostomy/surgical team Dictation was produced using [employer] dictation software. please excuse any grammatical, word or spelling errors. Time with Patient: Less than 30
--- NOTE | 2023-06-22 11:17 | P.PN ---
Subjective Progress Note Date: 06/22/23 CHIEF COMPLAINT: Skin breakdown at ostomy site HISTORY OF PRESENT ILLNESS: Patient is still having issues with her ostomy leaking. She still complains of abdominal pain. Computed tomography scan abdomen and pelvis showing reports gaseous tract extending into the subcutaneous tissues near the ostomy could represent packing material versus feces. There is some adjacent inflammation. No organizing fluid collection is present. Afebrile. PHYSICAL EXAM: VITAL SIGNS: Reviewed. GENERAL: Well-developed in no acute distress. ABDOMEN: Soft. Nondistended. Ileostomy bag with stool leaking from edge. To the right of the ostomy there is a small area of firmness. Midline incision with small pinhole opening that has less purulent drainage NEUROLOGIC: Alert and oriented. Cranial nerves II through XII grossly intact. ASSESSMENT: 1. Complication of ileostomy: Stoma separation from 6 to 12 o'clock position with mild retraction of stoma noted. Irritation of the skin of the abdominal wall due to stool leaking onto the skin 2. Recent ileostomy revision on 05/27/2023 3. 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 Signing provider agrees with the documented findings, assessment, and plan of care. Objective - Vital Signs Vital signs: Vital Signs Temp 98.2 F 06/22/23 07:00 Pulse 92 06/22/23 07:00 Resp 17 06/22/23 07:00 BP 143/76 06/22/23 07:00 Pulse Ox 99 06/22/23 07:00 FiO2 Intake & Output 06/21/23 06/22/23 06/22/23 18:59 06:59 18:59 Other: Voiding Method Bedside Commode # Voids 1 0 - Labs CBC & Chem 7: 06/21/23 05:55 06/21/23 05:55 Labs: Abnormal Lab Results - Last 24 Hours (Table) 06/21/23 06/21/23 06/21/23 Range/Units 13:15 17:44 19:54 POC Glucose (mg/dL) 189 H 209 H 236 H (70-110) mg/dL 06/22/23 Range/Units 06:23 POC Glucose (mg/dL) 159 H (70-110) mg/dL Microbiology - Last 24 Hours (Table) 06/20/23 13:54 Gram Stain - Preliminary Abdomen
== END 2023-06-22 10:42 | disposition home health service (06) | DRG 394 ==
LOC: EC 22:29 → OBSVTOIN 06-17 04:09 → 6NMEDSUR 06-17 04:09
PROVIDERS: ADMIT Family Medicine; ATTEND Family Medicine
DX: K94.03 Colostomy malfunction (principal); E87.1 Hypo-osmolality and hyponatremia; F11.20 Opioid dependence, uncomplicated; L03.311 Cellulitis of abdominal wall; N17.9 Acute kidney failure, unspecified; N39.0 Urinary tract infection, site not specified; E11.628 Type 2 diabetes mellitus with other skin complications; Z79.4 Long term (current) use of insulin; Y83.8 Other surgical procedures as the cause of abnormal reaction of the patient, or of later complication, without mention of misadventure at the time of the procedure; E11.622 Type 2 diabetes mellitus with other skin ulcer; E86.0 Dehydration; F17.210 Nicotine dependence, cigarettes, uncomplicated; F32.A Depression, unspecified; I10 Essential (primary) hypertension; J44.9 Chronic obstructive pulmonary disease, unspecified; L98.492 Non-pressure chronic ulcer of skin of other sites with fat layer exposed; Z79.82 Long term (current) use of aspirin; Z79.84 Long term (current) use of oral hypoglycemic drugs; Z79.890 Hormone replacement therapy; Z79.899 Other long term (current) drug therapy; Z82.49 Family history of ischemic heart disease and other diseases of the circulatory system; Z83.3 Family history of diabetes mellitus; Z87.19 Personal history of other diseases of the digestive system; Z89.511 Acquired absence of right leg below knee; Z90.49 Acquired absence of other specified parts of digestive tract
CPT/HCPCS: 36415; 74176; 80048; 80053; 81001; 82009; 83036; 83735; 85025; 85027; 86140; 87070; 87075; 87205; 96361; 96374; 99285

== ENCOUNTER 2023-07-07 17:11 | Inpatient (IN) | payer MEDICARE, OTHER ==
[2023-07-07] MEDS ORDERED: HYDROmorphone 1 MG/ML 1 ML SYRINGE IVP STA ×2 (17:28→19:01)
[2023-07-07] MEDS ORDERED: KETOROLAC 15 MG/ML 1 ML VIAL IVP STA (17:28)
--- NOTE | 2023-07-07 17:37 | ED ---
Extremity Problem HPI - General Chief complaint: Extremity Problem,Nontraumatic Stated complaint: right leg pain Time Seen by Provider: 07/07/23 17:19 Source: patient, RN notes reviewed Mode of arrival: ambulatory Limitations: no limitations - History of Present Illness Initial comments: This is a 68-year-old female who presents to the emergency department for right leg pain. Patient has a right below-knee amputation and over the last 2 days she developed pain around the stump. She did have a follow-up appointment recently regarding the stump and was told that she was healing well. She is taking [place] at home, which has not been effective for the pain. Her states that he found her in a chair rocking back and forth because of the discomfort. She has been evaluated here before for similar problems and found to have an infection, even when the outside of the leg does not look particularly irregular. Denies any fevers or chills. MD Complaint: extremity pain - Related Data Home Medications Medication Instructions Recorded Confirmed Oxybutynin Chloride [oxyBUTYnin 10 mg PO DAILY 08/17/20 07/07/23 chloride ER] Fluticasone Nasal [place] [Flonase 1 spr EA NOSTRIL HS 09/17/21 07/07/23 Nasal [place]] Albuterol Inhaler [Ventolin Hfa 2 puff INHALATION RT-QID PRN 12/14/21 07/07/23 Inhaler] Levothyroxine Sodium 88 mcg PO DAILY 12/14/21 07/07/23 Atorvastatin [Lipitor] 40 mg PO DAILY 06/16/22 07/07/23 Cholecalciferol (Vitamin D3) 125 mcg PO DAILY 06/16/22 07/07/23 [Vitamin D3 (125 MCG = 5,000 IU)] Fluticasone Propion/Salmeterol 1 puff INHALATION RT-BID 06/16/22 07/07/23 [Advair 500-50 Diskus] Triamcinolone 0.1% Cream [Kenalog 1 applic TOPICAL BID PRN 06/16/22 07/07/23 0.1% Cream] Famotidine [Pepcid] 20 mg PO BID 01/19/23 07/07/23 Levocetirizine Dihydrochloride 5 mg PO BID 01/19/23 07/07/23 [Xyzal] FLUoxetine HCL 40 mg PO DAILY 03/31/23 07/07/23 Gabapentin 800 mg PO TID 03/31/23 07/07/23 Ibuprofen [Motrin] 600 mg PO Q8HR PRN 03/31/23 07/07/23 LORazepam [Ativan] 1 mg PO Q6H PRN 03/31/23 07/07/23 QUEtiapine [SEROquel] 200 mg PO HS 03/31/23 07/07/23 metFORMIN HCL 1,000 mg PO BID 03/31/23 07/07/23 Montelukast [Singulair] 10 mg PO HS 05/07/23 07/07/23 Primidone [Mysoline] 25 mg PO BID 05/07/23 07/07/23 HYDROcodone/APAP 10-325MG [[place] 1 tab PO Q6H PRN 06/17/23 07/07/23 10-325] Mupirocin 2% Oint [Bactroban 2% 1 applic TOPICAL BID 06/17/23 07/07/23 Oint] Previous Rx's Medication Instructions Recorded Aspirin 325 mg PO DAILY #30 tab 06/18/22 Acetaminophen Tab [Tylenol] 1,000 mg PO Q6HR PRN #30 tablet 06/01/23 Insulin Glargine,Hum.rec.anlog 30 units SQ BID #3 each 06/01/23 [Lantus Solostar Pen] Allergies Allergy/AdvReac Type Severity Reaction Status Date / Time No Known Allergies Allergy Verified 07/07/23 21:26 Review of Systems ROS Statement: Those systems with pertinent positive or pertinent negative responses have been documented in the HPI. ROS Other: All systems not noted in ROS Statement are negative. 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, Ileostomy January 2023, Past Anesthesia/Blood Transfusion Reactions: No Reported Reaction Past Psychological History: Depression Smoking Status: Current every day smoker Past Alcohol Use History: None Reported Past Drug Use History: None Reported - Past Family History Father Family Medical History: Coronary Artery Disease (CAD) Mother Family Medical History: Diabetes Mellitus General Exam Limitations: no limitations General appearance: alert, in no apparent distress Head exam: Present: atraumatic, normocephalic, normal inspection Respiratory exam: Present: normal lung sounds bilaterally. Absent: respiratory distress, wheezes, rales, rhonchi, stridor Cardiovascular Exam: Present: regular rate, normal rhythm, normal heart sounds. Absent: systolic murmur, diastolic murmur, rubs, gallop, clicks Extremities exam: Present: other (There are no overlying deformities or irregularities to the right stump. There is no erythema, heat, or open wounds. She does have diffuse tenderness.) Neurological exam: Present: alert, oriented X3, CN II-XII intact Psychiatric exam: Present: normal affect, normal mood Skin exam: Present: warm, dry, intact, normal color. Absent: rash Course Vital Signs 07/07/23 07/07/23 07/07/23 17:12 19:28 20:56 Temperature 98 F Pulse Rate 84 100 Respiratory 18 16 Rate Blood Pressure 166/72 159/86 180/83 O2 Sat by Pulse 100 98 Oximetry 07/07/23 22:20 Temperature 98.7 F Pulse Rate 92 Respiratory 16 Rate Blood Pressure 147/62 O2 Sat by Pulse 98 Oximetry Medical Decision Making - Medical Decision Making This is a 68-year-old female who presents to the emergency department for right leg pain. Was pt. sent in by a medical professional or institution? @ -No Did you speak to anyone other than the patient for history? @ -No Did you review nursing and triage notes? @ -Yes, and I agree, it is accurate with regards to the patient's symptoms. Were old charts reviewed? @ -No Differential Diagnosis? @ -Differential Leg Pain: Leg fracture, leg sprain, DVT, PVD, arterial insufficiency, iliac artery aneurysm, cellulitis, compartment syndrome, tendinopathy, nerve entrapment, piriformis syndrome, osteoarthritis, rhabdomyolysis, myositis, cramping from an electrolyte imbalance, this is not meant to be an all inclusive list. EKG interpreted by me (3pts min.)? @ -Not obtained X-rays interpreted by me (1pt min.)? @ -X-ray of the right tib-fib obtained. My interpretation identifies no evidence of subcutaneous gas formation. CT interpreted by me (1pt min.)? @ -Computed tomography scan of the right lower extremity obtained. My interpretation identifies cortical lucency to the distal tibia. U/S interpreted by me (1pt. min.)? @ -Duplex US of the right lower extremity obtained. My interpretation identifies no evidence of a DVT. What testing was considered but not performed? (CT, X-rays, U/S, labs)? Why? @ -None What meds were considered but not given? Why? @ -None Did you discuss the management of the patient with other professionals? @ -Yes, Dunia Mojica with [facility], who accepts the patient for admission. Did you reconcile home meds? @ -Yes Was smoking cessation discussed for >3mins.? @ -No Was critical care preformed (if so, how long)? @ -No Were there social determinants of health that impacted care today? How? (Homelessness, low income, unemployed, alcoholism, drug addiction, transportation, low edu. Level, literacy, decrease access to med. care, care home, rehab)? @ -No Was there de-escalation of care discussed even if they declined? (Discuss DNR or withdrawal of care, Hospice)? @ -No What co-morbidities impacted this encounter? (DM, HTN, Smoking, COPD, CAD, Cancer, CVA, Hep., AIDS, mental health diagnosis, sleep apnea, morbid obesity)? @ -DM, HTN Was patient admitted / discharged? @ -Admitted. The external appearance of the stump was actually fairly unremarkable. However, the patient did have an admission this summer for cellul itis/osteitis of the right stump, and at that time had a fairly unremarkable physical exam. Patient was noted to be in severe distress. We initially started with blood work and an x-ray. X-ray of the right lower extremity revealed no acute process. Lab work did reveal leukocytosis with a white blood cell count of 14.4. Given the severity of her pain, we did proceed with a duplex ultrasound of the right lower extremity as well as a computed tomography scan. Duplex ultrasound revealed no evidence of a DVT. Computed tomography scan of the right lower extremity noted an area of central cortical lucency of the distal tibia concerning for osteomyelitis. In light of these findings, patient was admitted to medicine for further management. Blood cultures obtained. She was started on Vancomycin and Cefepime. Consult placed for infectious disease. Undiagnosed new problem with uncertain prognosis? @ -None Drug Therapy requiring intensive monitoring for toxicity (Heparin, Nitro, Insulin, Cardizem)? @ -None Were any procedures done? @ -None Diagnosis/symptom? @ -Right tibia osteomyelitis Acute, or Chronic, or Acute on Chronic? @ -Acute Uncomplicated (without systemic symptoms) or Complicated (systemic symptoms)? @ -Uncomplicated Side effects of treatment? @ -None Exacerbation, Progression, or Severe Exacerbation] @ -Not applicable Poses a threat to life or bodily function? @ -Yes This case was discussed in detail with the attending ED physician, Dr. Plummer. Presentation, findings, and treatment plan discussed in detail as well. - Lab Data Result diagrams: 07/07/23 17:40 07/07/23 17:40 Lab Results 07/07/23 07/07/23 07/07/23 Range/Units 17:40 17:40 17:40 WBC 14.4 H (3.8-10.6) k/uL RBC 4.20 (3.80-5.40) m/uL Hgb 11.4 (11.4-16.0) gm/dL Hct 34.1 (34.0-46.0) % MCV 81.2 (80.0-100.0) fL MCH 27.1 (25.0-35.0) pg MCHC 33.4 (31.0-37.0) g/dL RDW 16.8 H (11.5-15.5) % Plt Count 243 (150-450) k/uL MPV 6.7 Neutrophils % 84 % Lymphocytes % 11 % Monocytes % 4 % Eosinophils % 1 % Basophils % 0 % Neutrophils # 12.0 H (1.3-7.7) k/uL Lymphocytes # 1.6 (1.0-4.8) k/uL Monocytes # 0.5 (0-1.0) k/uL Eosinophils # 0.1 (0-0.7) k/uL Basophils # 0.0 (0-0.2) k/uL Anisocytosis Slight Sodium 138 (137-145) mmol/L Potassium 4.6 (3.5-5.1) mmol/L Chloride 103 (98-107) mmol/L Carbon Dioxide 21 L (22-30) mmol/L Anion Gap 14 mmol/L BUN 14 (7-17) mg/dL Creatinine 0.63 (0.52-1.04) mg/dL Est GFR (CKD-EPI)AfAm >90 (>60 ml/min/1.73 sqM) Est GFR (CKD-EPI)NonAf >90 (>60 ml/min/1.73 sqM) Glucose 227 H (74-99) mg/dL Plasma Lactic Acid [place] 1.6 (0.7-2.0) mmol/L Calcium 10.0 (8.4-10.2) mg/dL Total Bilirubin 0.6 (0.2-1.3) mg/dL AST 20 (14-36) U/L ALT 20 (4-34) U/L Alkaline Phosphatase 111 (38-126) U/L C-Reactive Protein 0.8 (<1.0) mg/dL Total Protein 9.0 H (6.3-8.2) g/dL Albumin 4.6 (3.5-5.0) g/dL - Radiology Data Radiology results: report reviewed, image reviewed Disposition Clinical Impression: Osteomyelitis of right tibia Disposition: ADMITTED IP TO THIS HOSP
[2023-07-07 17:55] LABS: Anisocytosis Slight; Basophils % (A) 0 %; Eosinophils # (A) 0.1 k/uL (0-0.7); Eosinophils % (A) 1 %; HCT 34.1 % (34.0-46.0); HGB 11.4 gm/dL (11.4-16.0); Lymphocytes # (A) 1.6 k/uL (1.0-4.8); Lymphocytes % (A) 11 %; MCH 27.1 pg (25.0-35.0); MCHC 33.4 g/dL (31.0-37.0); MCV 81.2 fL (80.0-100.0); Mean Platelet Volume 6.7; Monocytes # (A) 0.5 k/uL (0-1.0); Monocytes % (A) 4 %; Neutrophils % (A) 84 %; Platelet Count 243 k/uL (150-450); RDW 16.8 % (11.5-15.5); WBC 14.4 k/uL (3.8-10.6)
[2023-07-07 18:17] LABS: ALT 20 U/L (4-34); AST 20 U/L (14-36); African American GFR (CKD) >90 (>60 ml/min/1.73 sqM); Albumin 4.6 g/dL (3.5-5.0); Alkaline Phosphatase 111 U/L (38-126); Anion Gap 14 mmol/L; Blood Urea Nitrogen 14 mg/dL (7-17); Carbon Dioxide 21 mmol/L (22-30); Chloride 103 mmol/L (98-107); Glucose 227 mg/dL (74-99); Non-African American GFR(CKD) >90 (>60 ml/min/1.73 sqM); Potassium 4.6 mmol/L (3.5-5.1); Sodium 138 mmol/L (137-145); Total Bilirubin 0.6 mg/dL (0.2-1.3)
--- NOTE | 2023-07-07 18:23 | XR ---
Right tibia and fibula HISTORY: Ikrik-wkc-anow amputation and pain in the stump. COMPARISON: MR 05/07/2023 TECHNIQUE: 2 views of the right tibia and fibula were obtained FINDINGS: There is [id number]-[id number] amputation. There is no cortical destruction or periosteal reaction. There is no focal intraosseous abnormality. Soft tissues unremarkable. There is moderate osteophytic change of both the medial and Lateral compartments of the knee. There i s mild arteriovascular calcification IMPRESSION: 1. Below the knee amputation. 2. No cortical destruction or focal intraosseous abnormality. . 3. No soft tissue gas. Arteriovascular calcifications.
[2023-07-07 18:32] LABS: C Reactive Protein 0.8 mg/dL (<1.0)
[2023-07-07] MEDS ORDERED: ORPHENADRINE 30 MG/ML 2 ML VIAL IVP STA (19:01)
[2023-07-07] MEDS ORDERED: CEFEPIME 2 GM in SODIUM CHLORIDE 0.9% 100 ML IVPB STA (19:05)
--- NOTE | 2023-07-07 20:46 | CT ---
EXAMINATION TYPE: CT lower extremity RT w con CT DLP: 983.3 mGycm, Automated exposure control for dose reduction was used. DATE OF EXAM: 07/07/2023 8:14 PM COMPARISON: None CLINICAL INDICATION:Female, 68 years old with history of Pain to right stump; PHH, Non traumatic inju ry TECHNIQUE: Axial images were obtained of the CT lower extremity RT w con, Additional coronal and sagi ttal reformatted images and soft tissue and bone window were obtained for review. Contrast used:100 ml mL of Isovue 300 with IV Contrast, (None if empty) Oral contrast used: (None if empty) FINDINGS: Postsurgical changes to the lower lumbar spine. Hardware appears intact. Visualized pelvic structures demonstrate no evidence for acute process. The right hip demonstrates mild osteophyte form ation superior acetabulum compatible with mild osteoarthrosis. There is scattered atherosclerosis of the arterial vasculature of the right leg. Some disc used mottle osteo-PE are noted throughout the kn ee mild osteophyte formation present. The below knee amputation site of the fibula appears intact wit h good cortex. The tibia has an area of cortical irregularity most pronounced the central portion of the lingula 202 image 68 series 203 image 52. IMPRESSION: 1. Right below knee amputation with some central cortical lucency of the distal tibia concerning for osteomyelitis. Consider correlation with MRI to rule out osteomyelitis. 2. No evidence of fracture. 3. Mild right hepatic steatosis. 4. Right knee disuse osteopenia.
--- NOTE | 2023-07-07 20:47 | US ---
EXAMINATION TYPE: US venous doppler duplex LE RT DATE OF EXAM: 07/07/2023 7:03 PM COMPARISON: 05/07/2023, CT same day CLINICAL INDICATION: Female, 68 years old with history of Right leg pain; [place] amputee. Pain. No redness or swelling. SIDE PERFORMED: Right TECHNIQUE: The lower extremity deep venous system is examined utilizing real time linear array sonog jude with graded compression, doppler sonography and color-flow sonography. VESSELS IMAGED: Common Femoral Vein Deep Femoral Vein Greater Saphenous Vein * Femoral Vein Popliteal Vein Small Saphenous Vein * (* superficial vessels) Right Leg: Negative for DVT IMPRESSION: Grayscale, color doppler, spectral doppler imaging performed of the deep veins of the lo wer extremities. There is normal flow, compressibility, vascular waveforms.
[2023-07-07] MEDS ORDERED: VANCOMYCIN IV PER PHARMACY 1 EACH MISC MISCELLANE PRN (20:53)
[2023-07-07] MEDS ORDERED: ACETAMINOPHEN TAB 325 MG TAB PO PRN (21:16)
[2023-07-07] MEDS ORDERED: KETOROLAC 15 MG/ML 1 ML VIAL IVP PRN (21:16)
[2023-07-07] MEDS ORDERED: ONDANSETRON 4 MG/2 ML VIAL IVP PRN (21:16)
[2023-07-07] MEDS ORDERED: NALOXONE 0.4 MG/ML 1 ML VIAL IV PRN (21:16)
[2023-07-07] MEDS ORDERED: VANCOMYCIN 1,500 MG in SODIUM CHLORIDE 0.9% 500 ML 500 ML IVPB ONE (21:30)
[2023-07-07] MEDS ORDERED: ACETAMINOPHEN TAB 500 MG TAB PO PRN (21:40)
[2023-07-07] MEDS ORDERED: ALBUTEROL NEBULIZED 2.5 MG/3 ML INHALATION PRN (21:40)
[2023-07-07] MEDS ORDERED: LORazepam 1 MG TAB PO PRN (21:40)
[2023-07-07] MEDS ORDERED: IBUPROFEN 600 MG TAB PO PRN (21:40)
[2023-07-07] MEDS ORDERED: TRIAMCINOLONE 0.1% CREAM 80 GM TUBE TOPICAL PRN (21:40)
[2023-07-07] MEDS: GABAPENTIN 400 MG CAP PO SCH (22:10)
[2023-07-07] MEDS: HYDROmorphone 1 MG/ML 1 ML SYRINGE IVP PRN (22:12)
[2023-07-08] MEDS: CEFEPIME 2 GM in SODIUM CHLORIDE 0.9% 100 ML IVPB SCH ×3 (03:56→18:46)
[2023-07-08] MEDS: LEVOTHYROXINE 88 MCG TAB PO SCH (05:56)
[2023-07-08] MEDS: INSULIN DETEMIR (LEVEMIR) 100 UNIT/ML SYR SQ SCH ×2 (05:56→20:57)
[2023-07-08 06:50] LABS: Glucose,Whole Blood 165 mg/dL (70-110)
[2023-07-08] MEDS: HYDROmorphone 1 MG/ML 1 ML SYRINGE IVP PRN (06:50)
[2023-07-08] MEDS: FAMOTIDINE 20 MG TAB PO SCH ×2 (07:42→20:52)
[2023-07-08] MEDS: CHOLECALCIFEROL 125 MCG (5000 IU) TABLET PO SCH (07:42)
[2023-07-08] MEDS: ATORVASTATIN 40 MG TAB PO SCH (07:42)
[2023-07-08] MEDS: LORATADINE 10 MG TAB PO SCH (07:42)
[2023-07-08] MEDS: GABAPENTIN 400 MG CAP PO SCH ×3 (07:42→20:53)
[2023-07-08] MEDS: FLUoxetine HCL 20 MG CAP PO SCH (07:42)
[2023-07-08] MEDS: ASPIRIN 325 MG TAB PO SCH (07:42)
[2023-07-08] MEDS: PRIMIDONE 25 MG TAB PO SCH ×2 (07:43→20:57)
[2023-07-08] MEDS: OXYBUTYNIN 10 MG TAB.ER.24 PO SCH (07:43)
[2023-07-08] MEDS: SYMBICORT 160-4.5 MCG INHALER INHALATION SCH ×2 (08:08→21:13)
[2023-07-08] MEDS ORDERED: metFORMIN 500 MG TAB PO SCH (09:00)
[2023-07-08] MEDS: VANCOMYCIN 1,500 MG in SODIUM CHLORIDE 0.9% 500 ML 500 ML IVPB SCH ×2 (09:25→20:52)
[2023-07-08] MEDS: HYDROcodone/APAP 10-325MG 1 EACH TAB PO PRN ×2 (09:31→17:29)
[2023-07-08] MEDS: MUPIROCIN 2% OINT 22 GM TUBE TOPICAL SCH ×2 (10:06→21:45)
[2023-07-08 11:42] LABS: Glucose,Whole Blood 183 mg/dL (70-110)
[2023-07-08] MEDS ORDERED: DEXTROSE 50% SYRINGE 50 ML IVP PRN ×2 (11:59)
[2023-07-08] MEDS: INSULIN ASPART (NovoLOG) 100 UNIT/ML VIAL SQ SCH ×3 (12:16→20:52)
--- NOTE | 2023-07-08 12:27 | P.HPIM ---
History of Present Illness H&P Date: 07/08/23 History of present illness; patient is 68-year-old lady with history of hyperlip idemia, thyroidism, diabetes mellitus, ischemic colitis who presented to The ER because of right leg pain. Patient has been noticing that she developed increasing pain around the right BKA's stump site. Patient also noticed that there was swelling around the stump area and she notices redness there. There was no complain of any fever or chills. Patient was taking pain medication at home but they were unable to control her pain. Denies any nausea or vomiting. Patient was seen outpatient in the stump evaluated but they stated it was healing well. Over the last 24 hours her pain has worsened, her found her very uncomfortable and decided to bring her to the ER. Initial lab work done in the ER showed WBC of 14.4, platelet count 243, sodium 138, potassium 4.6, BUN 14, creatinine 0.60, glucose 227, calcium 10, lactate 1.6, bilirubin 0.6 X-ray tibia and fibula of right showed below the knee amputation, no cortical destruction or focal intraosseus abnormality Right Lower Extremity Negative for DVT CT right leg showed right [id number] of the patient with some central cortical lucency of the distal tibia concerning for osteomyelitis Patient admitted to medicine service REVIEW OF SYSTEMS: CONSTITUTIONAL: No fever, no malaise, no fatigue. HEENT: No recent visual problems or hearing problems. Denied any sore throat. CARDIOVASCULAR: No chest pain, orthopnea, PND, no palpitations, no syncope. PULMONARY: No shortness of breath, no cough, no hemoptysis. GASTROINTESTINAL: No diarrhea, no nausea, no vomiting, no abdominal pain. NEUROLOGICAL: No headaches, no weakness, no numbness. HEMATOLOGICAL: Denies any bleeding or petechiae. GENITOURINARY: Denies any burning micturition, frequency, or urgency. MUSCULOSKELETAL/RHEUMATOLOGICAL: Complaining of pain at BKA stump site ENDOCRINE: Denies any polyuria or polydipsia. The rest of the 14-point review of systems is negative. PHYSICAL EXAMINATION: GENERAL: The patient is alert and oriented x3, not in any acute distress. Well developed, well nourished. HEENT: Pupils are round and equally reacting to light. EOMI. No scleral icterus. No conjunctival pallor. Normocephalic, atraumatic. No pharyngeal erythema. No thyromegaly. CARDIOVASCULAR: S1 and S2 present. No murmurs, rubs, or gallops. PULMONARY: Chest is clear to auscultation, no wheezing or crackles. ABDOMEN: Soft, nontender, nondistended, normoactive bowel sounds. Ostomy seen MUSCULOSKELETAL: Right BKA, erythema noticeable at the stump EXTREMITIES: No cyanosis, clubbing, or pedal edema. NEUROLOGICAL: Gross neurological examination did not reveal any focal deficits. SKIN: No rashes. Assessment and plan Acute osteomyelitis of the right tibia Hyperlipidemia Hypothyroidism Insulin-dependent diabetes mellitus COPD History of BKA of right lower extremity Monitor vital signs Monitor CBC Monitor CMP Continue telemetry monitoring Ordered blood cultures Continue pain management Continue IV fluid Continue to monitor blood sugar levels, continue current insulin regimen Continue IV cefepime and vancomycin Consult ID Labs and medication were reviewed.. Continue same treatment. Continue with symptomatic treatment. Resume home medication. Monitor labs and vitals. DVT and GI prophylaxis. Further recommendations as per clinical course of the patient Dictation was produced using [employer] dictation software. please excuse any grammatical, word or spelling errors. 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, Ileostomy January 2023, Past Anesthesia/Blood Transfusion Reactions: No Reported Reaction Past Psychological History: Depression Smoking Status: Current every day smoker Past Alcohol Use History: None Reported Past Drug Use History: None Reported - Past Family History Father Family Medical History: Coronary Artery Disease (CAD) Mother Family Medical History: Diabetes Mellitus Medications and Allergies Home Medications Medication Instructions Recorded Confirmed Type Oxybutynin Chloride [oxyBUTYnin 10 mg PO DAILY 08/17/20 07/07/23 History chloride ER] Fluticasone Nasal [place] [Flonase 1 spr EA NOSTRIL HS 09/17/21 07/07/23 History Nasal [place]] Albuterol Inhaler [Ventolin Hfa 2 puff INHALATION RT-QID PRN 12/14/21 07/07/23 History Inhaler] Levothyroxine Sodium 88 mcg PO DAILY 12/14/21 07/07/23 History Atorvastatin [Lipitor] 40 mg PO DAILY 06/16/22 07/07/23 History Cholecalciferol (Vitamin D3) 125 mcg PO DAILY 06/16/22 07/07/23 History [Vitamin D3 (125 MCG = 5,000 IU)] Fluticasone Propion/Salmeterol 1 puff INHALATION RT-BID 06/16/22 07/07/23 History [Advair 500-50 Diskus] Triamcinolone 0.1% Cream [Kenalog 1 applic TOPICAL BID PRN 06/16/22 07/07/23 History 0.1% Cream] Aspirin 325 mg PO DAILY #30 tab 06/18/22 07/07/23 Rx Famotidine [Pepcid] 20 mg PO BID 01/19/23 07/07/23 History Levocetirizine Dihydrochloride 5 mg PO BID 01/19/23 07/07/23 History [Xyzal] FLUoxetine HCL 40 mg PO DAILY 03/31/23 07/07/23 History Gabapentin 800 mg PO TID 03/31/23 07/07/23 History Ibuprofen [Motrin] 600 mg PO Q8HR PRN 03/31/23 07/07/23 History LORazepam [Ativan] 1 mg PO Q6H PRN 03/31/23 07/07/23 History QUEtiapine [SEROquel] 200 mg PO HS 03/31/23 07/07/23 History metFORMIN HCL 1,000 mg PO BID 03/31/23 07/07/23 History Montelukast [Singulair] 10 mg PO HS 05/07/23 07/07/23 History Primidone [Mysoline] 25 mg PO BID 05/07/23 07/07/23 History Acetaminophen Tab [Tylenol] 1,000 mg PO Q6HR PRN #30 tablet 06/01/23 07/07/23 Rx Insulin Glargine,Hum.rec.anlog 30 units SQ BID #3 each 06/01/23 07/07/23 Rx [Lantus Solostar Pen] HYDROcodone/APAP 10-325MG [[place] 1 tab PO Q6H PRN 06/17/23 07/07/23 History 10-325] Mupirocin 2% Oint [Bactroban 2% 1 applic TOPICAL BID 06/17/23 07/07/23 History Oint] Allergies Allergy/AdvReac Type Severity Reaction Status Date / Time No Known Allergies Allergy Verified 07/07/23 21:26 Physical Exam Vitals: Vital Signs Temp Pulse Pulse Resp BP BP Pulse Ox 07/08/23 06:49 98.3 F 79 18 145/80 99 07/07/23 22:52 97.4 F L 83 19 158/72 96 07/07/23 22:20 98.7 F 92 16 147/62 98 07/07/23 20:56 100 16 180/83 98 07/07/23 19:28 159/86 07/07/23 17:12 98 F 84 18 166/72 100 Intake and Output 07/07/23 07/08/23 07/08/23 22:59 06:59 14:59 Output Total 200 Balance -200 Output: Stool 200 Other: # Voids 1 # Bowel Movements 1 Weight 79.832 kg Results CBC & Chem 7: 07/07/23 17:40 07/07/23 17:40 Labs: Abnormal Lab Results - Last 24 Hours (Table) 07/07/23 07/07/23 07/08/23 Range/Units 17:40 17:40 06:49 WBC 14.4 H (3.8-10.6) k/uL RDW 16.8 H (11.5-15.5) % Neutrophils # 12.0 H (1.3-7.7) k/uL Carbon Dioxide 21 L (22-30) mmol/L Glucose 227 H (74-99) mg/dL POC Glucose (mg/dL) 165 H (70-110) mg/dL Total Protein 9.0 H (6.3-8.2) g/dL
[2023-07-08 16:36] LABS: Glucose,Whole Blood 236 mg/dL (70-110)
[2023-07-08 19:36] LABS: Glucose,Whole Blood 198 mg/dL (70-110)
[2023-07-08] MEDS: MONTELUKAST 10 MG TAB PO SCH (20:52)
[2023-07-08] MEDS: QUEtiapine 200 MG TAB PO SCH (20:57)
[2023-07-08] MEDS: FLUTICASONE 50MCG/SPRAY NASAL 16GM EA NOSTRIL SCH (21:45)
--- NOTE | 2023-07-08 23:36 | P.CONS ---
History of Present Illness - Reason for Consult Consult date: 07/08/23 Possible osteomyelitis of the right BKA stump Requesting physician: Angelika Vasquez - Chief Complaint Right leg pain x few days - History of Present Illness Patient is a 68-year-old female with multiple comorbidities did have a history of diabetes mellitus hypertension COPD PAD in this patient who did have a right below the knee amputation patient presented to [facility] ER last night concerning for right lower extremity pain pain has been going on for the last 2 days around the stump area patient denies any history of any fall or trauma was describing the pain to be sharp, mild to moderate intensity without any radiation patient right BKA stump incision is currently healing open wound or any drainage patient on presentation to the hospital was afebrile and no fever has been ordered subsequently patient did have white count of 14.4 creatinine 0.63 liver enzymes are normal did have a sed rate of 60 CRP was 0.8 patient did have a lower extremity CT right better than amputation with some central cortical lucency of the distal tibia concerning for osteomyelitis no evidence of any fracture patient was admitted to the hospital started on cefepi me and vancomycin infectious disease was consulted for further management of antibiotic therapy Review of Systems Positive point and negatives has been mentioned in the HPI, complete review of systems was performed and all other systems are negative 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, Ileostomy January 2023, Past Anesthesia/Blood Transfusion Reactions: No Reported Reaction Past Psychological History: Depression Smoking Status: Current every day smoker Past Alcohol Use History: None Reported Past Drug Use History: None Reported - Past Family History Father Family Medical History: Coronary Artery Disease (CAD) Mother Family Medical History: Diabetes Mellitus Medications and Allergies Home Medications Medication Instructions Recorded Confirmed Type Oxybutynin Chloride [oxyBUTYnin 10 mg PO DAILY 08/17/20 07/07/23 History chloride ER] Fluticasone Nasal [place] [Flonase 1 spr EA NOSTRIL HS 09/17/21 07/07/23 History Nasal [place]] Albuterol Inhaler [Ventolin Hfa 2 puff INHALATION RT-QID PRN 12/14/21 07/07/23 History Inhaler] Levothyroxine Sodium 88 mcg PO DAILY 12/14/21 07/07/23 History Atorvastatin [Lipitor] 40 mg PO DAILY 06/16/22 07/07/23 History Cholecalciferol (Vitamin D3) 125 mcg PO DAILY 06/16/22 07/07/23 History [Vitamin D3 (125 MCG = 5,000 IU)] Fluticasone Propion/Salmeterol 1 puff INHALATION RT-BID 06/16/22 07/07/23 History [Advair 500-50 Diskus] Triamcinolone 0.1% Cream [Kenalog 1 applic TOPICAL BID PRN 06/16/22 07/07/23 History 0.1% Cream] Aspirin 325 mg PO DAILY #30 tab 06/18/22 07/07/23 Rx Famotidine [Pepcid] 20 mg PO BID 01/19/23 07/07/23 History Levocetirizine Dihydrochloride 5 mg PO BID 01/19/23 07/07/23 History [Xyzal] FLUoxetine HCL 40 mg PO DAILY 03/31/23 07/07/23 History Gabapentin 800 mg PO TID 03/31/23 07/07/23 History Ibuprofen [Motrin] 600 mg PO Q8HR PRN 03/31/23 07/07/23 History LORazepam [Ativan] 1 mg PO Q6H PRN 03/31/23 07/07/23 History QUEtiapine [SEROquel] 200 mg PO HS 03/31/23 07/07/23 History metFORMIN HCL 1,000 mg PO BID 03/31/23 07/07/23 History Montelukast [Singulair] 10 mg PO HS 05/07/23 07/07/23 History Primidone [Mysoline] 25 mg PO BID 05/07/23 07/07/23 History Acetaminophen Tab [Tylenol] 1,000 mg PO Q6HR PRN #30 tablet 06/01/23 07/07/23 Rx Insulin Glargine,Hum.rec.anlog 30 units SQ BID #3 each 06/01/23 07/07/23 Rx [Lantus Solostar Pen] HYDROcodone/APAP 10-325MG [[place] 1 tab PO Q6H PRN 06/17/23 07/07/23 History 10-325] Mupirocin 2% Oint [Bactroban 2% 1 applic TOPICAL BID 06/17/23 07/07/23 History Oint] Allergies Allergy/AdvReac Type Severity Reaction Status Date / Time No Known Allergies Allergy Verified 07/07/23 21:26 Physical Exam Vitals: Vital Signs Temp Pulse Pulse Resp BP BP Pulse Ox 07/08/23 06:49 98.3 F 79 18 145/80 99 07/07/23 22:52 97.4 F L 83 19 158/72 96 07/07/23 22:20 98.7 F 92 16 147/62 98 07/07/23 20:56 100 16 180/83 98 07/07/23 19:28 159/86 07/07/23 17:12 98 F 84 18 166/72 100 Intake and Output 07/07/23 07/08/23 07/08/23 22:59 06:59 14:59 Output Total 200 Balance -200 Output: Stool 200 Other: # Voids 1 # Bowel Movements 1 Weight 79.832 kg GENERAL DESCRIPTION: Elderly female lying in bed, no distress. No tachypnea or accessory muscle of respiration use. HEENT: Shows Pallor , no scleral icterus. Oral mucous membrane is dry. No pharyngeal erythema or thrush NECK: Trachea central, no thyromegaly. LUNGS: Unlabored breathing. Clear to auscultation anteriorly. No wheeze or crackle. HEART: S1, S2, regular rate and rhythm. No loud murmur ABDOMEN: Soft, no tenderness , guarding or rigidity, no organomegaly EXTREMITIES: Right BKA stump is currently healed no swelling redness tenderness or drainage SKIN: No rash, no masses palpable. NEUROLOGICAL: The patient is awake, alert, oriented x3, mood and affect normal. Results CBC & Chem 7: 07/07/23 17:40 07/07/23 17:40 Labs: Abnormal Lab Results - Last 24 Hours (Table) 07/07/23 07/07/23 07/08/23 Range/Units 17:40 17:40 06:49 WBC 14.4 H (3.8-10.6) k/uL RDW 16.8 H (11.5-15.5) % Neutrophils # 12.0 H (1.3-7.7) k/uL Carbon Dioxide 21 L (22-30) mmol/L Glucose 227 H (74-99) mg/dL POC Glucose (mg/dL) 165 H (70-110) mg/dL Total Protein 9.0 H (6.3-8.2) g/dL 07/08/23 Range/Units 11:41 WBC (3.8-10.6) k/uL RDW (11.5-15.5) % Neutrophils # (1.3-7.7) k/uL Carbon Dioxide (22-30) mmol/L Glucose (74-99) mg/dL POC Glucose (mg/dL) 183 H (70-110) mg/dL Total Protein (6.3-8.2) g/dL Assessment and Plan (1) Abnormal computed tomography of lower extremity Current Visit: Yes Status: Acute Code(s): R93.6 - ABNORMAL FINDINGS ON DIAGNOSTIC IMAGING OF LIMBS SNOMED Code(s): 694723208 (2) Osteomyelitis of right tibia Current Visit: Yes Status: Acute Code(s): M86.9 - OSTEOMYELITIS, UNSPECIFIED SNOMED Code(s): 5281366645087051 (3) Leukocytosis Current Visit: No Status: Acute Code(s): D72.829 - ELEVATED WHITE BLOOD CELL COUNT, UNSPECIFIED SNOMED Code(s): 894729559 Plan: 1patient presented hospital with right lower extremity pain this patient who did have a history of right below the knee amputation patient right BKA stump is currently healed and there was no evidence of any swelling or redness patient is afebrile however did have elevated white count and inflammatory markers and abnormal CT that is slightly concerning 2-we will recommend obtaining an MRI of the right BKA stump with contrast to rule out osteomyelitis if the MRI suspicious patient will benefit from evaluation by vascular surgery for deep bone biopsy for microbiological diagnosis 3-as the patient does not look toxic and to decrease the yield of any cultures we will collect and discontinue her antibiotics and watch her closely We will follow on clinical condition and cultures to further adjust medication if needed Thank you for this consultation we will follow the patient along with you Dictation was produced using [employer] dictation software. please excuse any grammatical, word or spelling errors. Time with Patient: Greater than 30
[2023-07-09 05:01] LABS: Glucose,Whole Blood 175 mg/dL (70-110)
[2023-07-09] MEDS: INSULIN ASPART (NovoLOG) 100 UNIT/ML VIAL SQ SCH ×4 (05:52→21:05)
[2023-07-09] MEDS: LEVOTHYROXINE 88 MCG TAB PO SCH (05:53)
[2023-07-09] MEDS: INSULIN DETEMIR (LEVEMIR) 100 UNIT/ML SYR SQ SCH ×2 (05:53→21:05)
[2023-07-09] MEDS: HYDROcodone/APAP 10-325MG 1 EACH TAB PO PRN ×2 (05:53→21:04)
[2023-07-09] MEDS ORDERED: VANCOMYCIN TROUGH DUE 1 EACH MISC MISCELLANE ONE (08:00)
[2023-07-09] MEDS: SYMBICORT 160-4.5 MCG INHALER INHALATION SCH ×2 (08:42→21:30)
[2023-07-09 08:49] LABS: HCT 30.3 % (37.2-46.3); HGB 9.6 d/dL (12.0-15.0); MCH 26.6 pg (27.0-32.0); MCHC 31.7 d/dL (32.0-37.0); MCV 83.9 FL (80.0-97.0); Mean Platelet Volume 9.1 FL (9.5-12.2); NRBC Per 100 WBC 0 X 10*3/uL (0.00-0.01); Platelet Count 174 X 10*3/uL (140-440); RBC 3.61 X 10*6/uL (4.10-5.20); RDW 16.9 % (11.5-14.5); WBC 8.63 X 10*3/uL (4.50-10.00)
[2023-07-09 08:50] LABS: ALT 17 U/L (4-34); AST 18 U/L (14-36); African American GFR (CKD) >90 (>60 ml/min/1.73 sqM); Albumin 3.3 g/dL (3.5-5.0); Alkaline Phosphatase 87 U/L (38-126); Anion Gap 9 mmol/L; Blood Urea Nitrogen 15 mg/dL (7-17); Calcium 8.5 mg/dL (8.4-10.2); Carbon Dioxide 21 mmol/L (22-30); Chloride 108 mmol/L (98-107); Globulin 3.3 g/dL; Glucose 150 mg/dL (74-99); Non-African American GFR(CKD) 85 (>60 ml/min/1.73 sqM); Potassium 4.4 mmol/L (3.5-5.1); Sodium 138 mmol/L (137-145); Total Bilirubin 0.3 mg/dL (0.2-1.3); Total Protein 6.6 g/dL (6.3-8.2)
--- NOTE | 2023-07-09 08:58 | P.PN ---
Subjective Progress Note Date: 07/09/23 Principal diagnosis: Stump pain This is a 68-year-old female who presented to the emergency room with complaints of pain on her right stump. She has a history of a right [id number] amputation, and noticed increased swelling and redness in the area along with increased pain. Pain medication at home was not able to control patient's pain. Patient had a CT which showed question for osteomylitis. She is on cefepime and vancomycin. Infectious disease has been consulted and is considering an MRI. Patient is seen this morning sitting up in bed. Pain is better controlled but she is still uncomfortable. Objective - Vital Signs Vital signs: Vital Signs Temp 97.7 F 07/09/23 07:04 Pulse 84 07/09/23 07:04 Resp 17 07/09/23 07:04 BP 114/67 07/09/23 07:04 Pulse Ox 95 07/09/23 07:04 FiO2 Intake & Output 07/08/23 07/09/23 07/09/23 18:59 06:59 18:59 Output Total 200 200 Balance -200 -200 Output: Stool 200 200 Other: # Voids 2 2 # Bowel Movements 1 - Constitutional General appearance: Present: cooperative, no acute distress - EENT Eyes: Present: PERRLA - Neck Neck: Present: normal ROM. Absent: lymphadenopathy, rigidity - Respiratory Respiratory: bilateral: CTA - Cardiovascular Rhythm: regular Heart sounds: normal: S1, S2 - Gastrointestinal General gastrointestinal: Present: soft. Absent: tenderness - Integumentary Integumentary: Present: normal, normal turgor - Psychiatric Psychiatric: Present: A&O x's 3, appropriate affect, intact judgment & insight - Labs CBC & Chem 7: 07/09/23 06:02 07/09/23 06:02 Labs: Abnormal Lab Results - Last 24 Hours (Table) 07/07/23 07/08/23 07/08/23 Range/Units 20:53 11:41 16:35 RBC (4.10-5.20) X 10*6/uL Hgb (12.0-15.0) d/dL Hct (37.2-46.3) % MCH (27.0-32.0) pg MCHC (32.0-37.0) d/dL RDW (11.5-14.5) % MPV (9.5-12.2) FL ESR 60 H (0-30) mm/Hr Chloride (98-107) mmol/L Carbon Dioxide (22-30) mmol/L Glucose (74-99) mg/dL POC Glucose (mg/dL) 183 H 236 H (70-110) mg/dL Albumin (3.5-5.0) g/dL 07/08/23 07/09/23 07/09/23 Range/Units 19:34 04:59 06:02 RBC (4.10-5.20) X 10*6/uL Hgb (12.0-15.0) d/dL Hct (37.2-46.3) % MCH (27.0-32.0) pg MCHC (32.0-37.0) d/dL RDW (11.5-14.5) % MPV (9.5-12.2) FL ESR (0-30) mm/Hr Chloride 108 H (98-107) mmol/L Carbon Dioxide 21 L (22-30) mmol/L Glucose 150 H (74-99) mg/dL POC Glucose (mg/dL) 198 H 175 H (70-110) mg/dL Albumin 3.3 L (3.5-5.0) g/dL 07/09/23 Range/Units 06:02 RBC 3.61 L (4.10-5.20) X 10*6/uL Hgb 9.6 L (12.0-15.0) d/dL Hct 30.3 L (37.2-46.3) % MCH 26.6 L (27.0-32.0) pg MCHC 31.7 L (32.0-37.0) d/dL RDW 16.9 H (11.5-14.5) % MPV 9.1 L (9.5-12.2) FL ESR (0-30) mm/Hr Chloride (98-107) mmol/L Carbon Dioxide (22-30) mmol/L Glucose (74-99) mg/dL POC Glucose (mg/dL) (70-110) mg/dL Albumin (3.5-5.0) g/dL Assessment and Plan (1) Abnormal computed tomography of lower extremity Current Visit: Yes Status: Acute Code(s): R93.6 - ABNORMAL FINDINGS ON DIAGNOSTIC IMAGING OF LIMBS SNOMED Code(s): 285935796 (2) Osteomyelitis of right tibia Current Visit: Yes Status: Acute Code(s): M86.9 - OSTEOMYELITIS, UNSPECIFIED SNOMED Code(s): 8012839655404747 (3) COPD (chronic obstructive pulmonary disease) Current Visit: No Status: Acute Code(s): J44.9 - CHRONIC OBSTRUCTIVE PULMONARY DISEASE, UNSPECIFIED SNOMED Code(s): 22250458 (4) History of below-knee amputation of right lower extremity Current Visit: No Status: Acute Code(s): Z89.511 - ACQUIRED ABSENCE OF RIGHT LEG BELOW KNEE SNOMED Code(s): 369214249134791 (5) Hypertension Current Visit: No Status: Acute Code(s): I10 - ESSENTIAL (PRIMARY) HYPERTENSION SNOMED Code(s): 41508464 (6) Opioid dependence Current Visit: No Status: Acute Code(s): F11.20 - OPIOID DEPENDENCE, UNCOMPLICATED SNOMED Code(s): 73131315 (7) Type 2 diabetes mellitus Current Visit: No Status: Acute Code(s): E11.9 - TYPE 2 DIABETES MELLITUS WITHOUT COMPLICATIONS SNOMED Code(s): 41802435 Plan: Check CBC and CMP in the morning. Appreciate infectious disease's input. Patient seen and evaluated by nurse practitioner, physician in agreement with plan
[2023-07-09] MEDS: GABAPENTIN 400 MG CAP PO SCH ×3 (09:57→21:04)
[2023-07-09] MEDS: PRIMIDONE 25 MG TAB PO SCH ×2 (09:57→21:04)
[2023-07-09] MEDS: ASPIRIN 325 MG TAB PO SCH (09:57)
[2023-07-09] MEDS: FLUoxetine HCL 20 MG CAP PO SCH (09:57)
[2023-07-09] MEDS: FAMOTIDINE 20 MG TAB PO SCH ×2 (09:57→21:04)
[2023-07-09] MEDS: OXYBUTYNIN 10 MG TAB.ER.24 PO SCH (09:57)
[2023-07-09] MEDS: LORATADINE 10 MG TAB PO SCH (09:57)
[2023-07-09] MEDS: CHOLECALCIFEROL 125 MCG (5000 IU) TABLET PO SCH (09:57)
[2023-07-09] MEDS: ATORVASTATIN 40 MG TAB PO SCH (09:57)
[2023-07-09] MEDS: HYDROmorphone 1 MG/ML 1 ML SYRINGE IVP PRN (10:06)
[2023-07-09 11:04] LABS: Glucose,Whole Blood 289 mg/dL (70-110)
[2023-07-09 17:00] LABS: Glucose,Whole Blood 278 mg/dL (70-110)
[2023-07-09] MEDS: MUPIROCIN 2% OINT 22 GM TUBE TOPICAL SCH ×2 (17:01→21:05)
[2023-07-09 20:48] LABS: Glucose,Whole Blood 294 mg/dL (70-110)
[2023-07-09] MEDS: MONTELUKAST 10 MG TAB PO SCH (21:04)
[2023-07-09] MEDS: FLUTICASONE 50MCG/SPRAY NASAL 16GM EA NOSTRIL SCH (21:05)
[2023-07-09] MEDS: QUEtiapine 200 MG TAB PO SCH (21:05)
[2023-07-10] MEDS: HYDROcodone/APAP 10-325MG 1 EACH TAB PO PRN ×2 (03:38→17:13)
[2023-07-10 06:29] LABS: Glucose,Whole Blood 234 mg/dL (70-110)
[2023-07-10] MEDS: INSULIN ASPART (NovoLOG) 100 UNIT/ML VIAL SQ SCH ×4 (06:31→21:46)
[2023-07-10] MEDS: LEVOTHYROXINE 88 MCG TAB PO SCH (06:32)
[2023-07-10] MEDS: INSULIN DETEMIR (LEVEMIR) 100 UNIT/ML SYR SQ SCH ×2 (06:32→21:45)
[2023-07-10 07:29] LABS: ALT 15 U/L (4-34); AST 15 U/L (14-36); African American GFR (CKD) >90 (>60 ml/min/1.73 sqM); Albumin 3.1 g/dL (3.5-5.0); Alkaline Phosphatase 112 U/L (38-126); Anion Gap 9 mmol/L; Blood Urea Nitrogen 12 mg/dL (7-17); Calcium 8.2 mg/dL (8.4-10.2); Carbon Dioxide 21 mmol/L (22-30); Chloride 107 mmol/L (98-107); Globulin 3.2 g/dL; Glucose 224 mg/dL (74-99); Non-African American GFR(CKD) >90 (>60 ml/min/1.73 sqM); Potassium 4.8 mmol/L (3.5-5.1); Sodium 137 mmol/L (137-145); Total Bilirubin 0.3 mg/dL (0.2-1.3); Total Protein 6.3 g/dL (6.3-8.2)
[2023-07-10] MEDS: OXYBUTYNIN 10 MG TAB.ER.24 PO SCH (08:06)
[2023-07-10] MEDS: PRIMIDONE 25 MG TAB PO SCH ×2 (08:06→21:46)
[2023-07-10] MEDS: ATORVASTATIN 40 MG TAB PO SCH (08:06)
[2023-07-10] MEDS: FAMOTIDINE 20 MG TAB PO SCH ×2 (08:06→21:46)
[2023-07-10] MEDS: LORATADINE 10 MG TAB PO SCH (08:06)
[2023-07-10] MEDS: CHOLECALCIFEROL 125 MCG (5000 IU) TABLET PO SCH (08:06)
[2023-07-10] MEDS: GABAPENTIN 400 MG CAP PO SCH ×3 (08:06→21:46)
[2023-07-10] MEDS: FLUoxetine HCL 20 MG CAP PO SCH (08:06)
[2023-07-10] MEDS: ASPIRIN 325 MG TAB PO SCH (08:07)
[2023-07-10] MEDS: MUPIROCIN 2% OINT 22 GM TUBE TOPICAL SCH ×2 (08:08→21:46)
[2023-07-10] MEDS: HYDROmorphone 0.5 MG/0.5 ML SYRINGE IVP PRN ×2 (08:08→14:25)
[2023-07-10] MEDS: SYMBICORT 160-4.5 MCG INHALER INHALATION SCH ×2 (08:09→20:44)
--- NOTE | 2023-07-10 09:19 | P.PN ---
Subjective Progress Note Date: 07/10/23 Principal diagnosis: Stump pain This is a 68-year-old female who presented to the emergency room with complaints of pain on her right stump. She has a history of a right [id number] amputation, and noticed increased swelling and redness in the area along with increased pain. Pain medication at home was not able to control patient's pain. Patient had a CT which showed question for osteomylitis. She is on cefepime and vancomycin. Infectious disease has been consulted and is considering an MRI. Patient is seen this morning sitting up in bed. Pain is better controlled but she is still uncomfortable. 07/10/2023 Patient is seen and evaluated sitting on side of bed this morning. She reports pain is somewhat better in right stump. MRI has not been ordered yet, will ord er today. Objective - Vital Signs Vital signs: Vital Signs Temp 98.6 F 07/10/23 07:10 Pulse 88 07/10/23 07:10 Resp 16 07/10/23 07:10 BP 134/74 07/10/23 07:10 Pulse Ox 98 07/10/23 07:10 FiO2 Intake & Output 07/09/23 07/10/23 07/10/23 18:59 06:59 18:59 Output Total 400 Balance -400 Output: Stool 400 Other: Voiding Method Bedside Commode # Voids 1 2 - Constitutional General appearance: Present: cooperative, no acute distress - EENT Eyes: Present: PERRLA - Neck Neck: Present: normal ROM. Absent: lymphadenopathy, rigidity - Respiratory Respiratory: bilateral: CTA - Cardiovascular Rhythm: regular Heart sounds: normal: S1, S2 - Gastrointestinal General gastrointestinal: Present: soft. Absent: tenderness - Integumentary Integumentary: Present: normal, normal turgor - Psychiatric Psychiatric: Present: A&O x's 3 - Labs CBC & Chem 7: 07/09/23 06:02 07/10/23 06:22 Labs: Abnormal Lab Results - Last 24 Hours (Table) 07/09/23 07/09/23 07/09/23 Range/Units 11:03 16:59 20:47 Carbon Dioxide (22-30) mmol/L Glucose (74-99) mg/dL POC Glucose (mg/dL) 289 H 278 H 294 H (70-110) mg/dL Calcium (8.4-10.2) mg/dL Albumin (3.5-5.0) g/dL 07/10/23 07/10/23 Range/Units 06:22 06:27 Carbon Dioxide 21 L (22-30) mmol/L Glucose 224 H (74-99) mg/dL POC Glucose (mg/dL) 234 H (70-110) mg/dL Calcium 8.2 L (8.4-10.2) mg/dL Albumin 3.1 L (3.5-5.0) g/dL Microbiology - Last 24 Hours (Table) 07/07/23 19:08 Blood Culture - Preliminary Blood 07/07/23 19:23 Blood Culture - Preliminary Blood Assessment and Plan (1) Abnormal computed tomography of lower extremity Current Visit: Yes Status: Acute Code(s): R93.6 - ABNORMAL FINDINGS ON DIAGNOSTIC IMAGING OF LIMBS SNOMED Code(s): 310015070 (2) Osteomyelitis of right tibia Current Visit: Yes Status: Acute Code(s): M86.9 - OSTEOMYELITIS, UNSPECIFIED SNOMED Code(s): 3680328258350706 (3) COPD (chronic obstructive pulmonary disease) Current Visit: No Status: Acute Code(s): J44.9 - CHRONIC OBSTRUCTIVE PULMONARY DISEASE, UNSPECIFIED SNOMED Code(s): 35753142 (4) History of below-knee amputation of right lower extremity Current Visit: No Status: Acute Code(s): Z89.511 - ACQUIRED ABSENCE OF RIGHT LEG BELOW KNEE SNOMED Code(s): 466390949111736 (5) Hypertension Current Visit: No Status: Acute Code(s): I10 - ESSENTIAL (PRIMARY) HYPERTENSION SNOMED Code(s): 72309144 (6) Opioid dependence Current Visit: No Status: Acute Code(s): F11.20 - OPIOID DEPENDENCE, UNCOMPL ICATED SNOMED Code(s): 07322243 (7) Type 2 diabetes mellitus Current Visit: No Status: Acute Code(s): E11.9 - TYPE 2 DIABETES MELLITUS WITHOUT COMPLICATIONS SNOMED Code(s): 48910843 Plan: Check CBC and CMP in the morning. Order MRI of right stump per infectious disease's recommendation. Patient seen and evaluated by nurse practitioner, physician in agreement with plan
[2023-07-10 10:49] LABS: HCT 28.1 % (37.2-46.3); HGB 8.8 d/dL (12.0-15.0); MCH 26.4 pg (27.0-32.0); MCHC 31.3 d/dL (32.0-37.0); MCV 84.4 FL (80.0-97.0); Mean Platelet Volume 9.3 FL (9.5-12.2); NRBC Per 100 WBC 0 X 10*3/uL (0.00-0.01); Platelet Count 131 X 10*3/uL (140-440); RBC 3.33 X 10*6/uL (4.10-5.20); RDW 16.6 % (11.5-14.5)
[2023-07-10 11:49] LABS: Glucose,Whole Blood 246 mg/dL (70-110)
--- NOTE | 2023-07-10 14:30 | P.PN ---
Subjective Progress Note Date: 07/10/23 Principal diagnosis: Abdominal CT and a question of right BK stump osteomyelitis Patient is a 68-year-old female with multiple comorbidities did have a history of diabetes mellitus hypertension COPD PAD in this patient who did have a right below the knee amputation patient presented to [facility] ER concerning for right lower extremity pain, patient did have a CT of the right lower extremity which did show some cortical lucency concerning for possible osteomyelitis did have elevated sed rate. On today's evaluation that is 07/10/2023, the patient remains to be afebrile, the patient is breathing comfortably on room air without the need for supplemental oxygen and denies any shortness of breath, the patient denies having any chest pain or cough, patient denies nausea/vomiting /diarrhea and no abdominal pain, the patient did have off and on pain to the right BKA stump Patient did have white count of 8.60, creatinine 0.67, ESR of 60, blood culture negative Objective - Vital Signs Vital signs: Vital Signs Temp 98.6 F 07/10/23 07:10 Pulse 88 07/10/23 07:10 Resp 16 07/10/23 07:10 BP 134/74 07/10/23 07:10 Pulse Ox 98 07/10/23 07:10 FiO2 Intake & Output 07/09/23 07/10/23 07/10/23 18:59 06:59 18:59 Output Total 400 Balance -400 Output: Stool 400 Other: Voiding Method Bedside Commode Bedside Commode # Voids 1 2 - Exam GENERAL DESCRIPTION: An elderly female lying in bed in no distress RESPIRATORY SYSTEM: Unlabored breathing , clear to auscultation anteriorly HEART: S1 S2 regular rate and rhythm , ABDOMEN: Soft , no tenderness EXTREMITIES: Right BKA stump incision is healed no swelling redness - Labs CBC & Chem 7: 07/10/23 06:22 07/10/23 06:22 Labs: Abnormal Lab Results - Last 24 Hours (Table) 07/09/23 07/09/23 07/09/23 Range/Units 11:03 16:59 20:47 RBC (4.10-5.20) X 10*6/uL Hgb (12.0-15.0) d/dL Hct (37.2-46.3) % MCH (27.0-32.0) pg MCHC (32.0-37.0) d/dL RDW (11.5-14.5) % Plt Count (140-440) X 10*3/uL MPV (9.5-12.2) FL Carbon Dioxide (22-30) mmol/L Glucose (74-99) mg/dL POC Glucose (mg/dL) 289 H 278 H 294 H (70-110) mg/dL Calcium (8.4-10.2) mg/dL Albumin (3.5-5.0) g/dL 07/10/23 07/10/23 07/10/23 Range/Units 06:22 06:22 06:27 RBC 3.33 L (4.10-5.20) X 10*6/uL Hgb 8.8 L (12.0-15.0) d/dL Hct 28.1 L (37.2-46.3) % MCH 26.4 L (27.0-32.0) pg MCHC 31.3 L (32.0-37.0) d/dL RDW 16.6 H (11.5-14.5) % Plt Count 131 L (140-440) X 10*3/uL MPV 9.3 L (9.5-12.2) FL Carbon Dioxide 21 L (22-30) mmol/L Glucose 224 H (74-99) mg/dL POC Glucose (mg/dL) 234 H (70-110) mg/dL Calcium 8.2 L (8.4-10.2) mg/dL Albumin 3.1 L (3.5-5.0) g/dL Microbiology - Last 24 Hours (Table) 07/07/23 19:08 Blood Culture - Preliminary Blood 07/07/23 19:23 Blood Culture - Preliminary Blood Assessment and Plan (1) Abnormal computed tomography of lower extremity Current Visit: Yes Status: Acute Code(s): R93.6 - ABNORMAL FINDINGS ON DIAGNOSTIC IMAGING OF LIMBS SNOMED Code(s): 176189568 (2) Osteomyelitis of right tibia Current Visit: Yes Status: Acute Code(s): M86.9 - OSTEOMYELITIS, UNSPECIFIED SNOMED Code(s): 9055610017542749 (3) Leukocytosis Current Visit: No Status: Acute Code(s): D72.829 - ELEVATED WHITE BLOOD CELL COUNT, UNSPECIFIED SNOMED Code(s): 248158327 Plan: 1patient presented hospital with right lower extremity pain this patient who did have a history of right below the knee amputation patient right BKA stump is currently healed and there was no evidence of any swelling or redness patient is afebrile however did have elevated white count and inflammatory markers and abnormal CT that is slightly concerning 2-we currently waiting for MRI of the right BKA stump with contrast to rule out osteomyelitis though clinical suspicion remains to be low and we will monitor the patient closely off antibiotics Dictation was produced using [employer] dictation software. please excuse any grammatical, word or spelling errors. Time with Patient: Less than 30
[2023-07-10 16:35] LABS: Glucose,Whole Blood 333 mg/dL (70-110)
[2023-07-10 21:21] LABS: Glucose,Whole Blood 287 mg/dL (70-110)
[2023-07-10] MEDS: MONTELUKAST 10 MG TAB PO SCH (21:46)
[2023-07-10] MEDS: QUEtiapine 200 MG TAB PO SCH (21:46)
[2023-07-10] MEDS: FLUTICASONE 50MCG/SPRAY NASAL 16GM EA NOSTRIL SCH (21:48)
[2023-07-11] MEDS: HYDROcodone/APAP 10-325MG 1 EACH TAB PO PRN (04:45)
[2023-07-11 06:24] LABS: Glucose,Whole Blood 221 mg/dL (70-110)
[2023-07-11] MEDS: INSULIN DETEMIR (LEVEMIR) 100 UNIT/ML SYR SQ SCH ×2 (06:57→21:47)
[2023-07-11] MEDS: INSULIN ASPART (NovoLOG) 100 UNIT/ML VIAL SQ SCH ×4 (06:57→21:48)
[2023-07-11] MEDS: SYMBICORT 160-4.5 MCG INHALER INHALATION SCH ×2 (07:33→20:13)
[2023-07-11] MEDS: GABAPENTIN 400 MG CAP PO SCH ×3 (08:42→21:47)
[2023-07-11] MEDS: PRIMIDONE 25 MG TAB PO SCH ×2 (08:42→21:47)
[2023-07-11] MEDS: OXYBUTYNIN 10 MG TAB.ER.24 PO SCH (08:42)
[2023-07-11] MEDS: ATORVASTATIN 40 MG TAB PO SCH (08:42)
[2023-07-11] MEDS: ASPIRIN 325 MG TAB PO SCH (08:42)
[2023-07-11] MEDS: FAMOTIDINE 20 MG TAB PO SCH (08:42)
[2023-07-11] MEDS: FLUoxetine HCL 20 MG CAP PO SCH (08:42)
[2023-07-11] MEDS: LORATADINE 10 MG TAB PO SCH (08:42)
[2023-07-11] MEDS: CHOLECALCIFEROL 125 MCG (5000 IU) TABLET PO SCH (08:43)
[2023-07-11] MEDS: HYDROmorphone 0.5 MG/0.5 ML SYRINGE IVP PRN ×4 (08:43→21:51)
[2023-07-11] MEDS: MUPIROCIN 2% OINT 22 GM TUBE TOPICAL SCH ×2 (08:46→21:48)
[2023-07-11 11:02] LABS: HCT 30.2 % (37.2-46.3); HGB 9.8 d/dL (12.0-15.0); MCH 27.2 pg (27.0-32.0); MCHC 32.5 d/dL (32.0-37.0); MCV 83.9 FL (80.0-97.0); Mean Platelet Volume 9.6 FL (9.5-12.2); NRBC Per 100 WBC 0 X 10*3/uL (0.00-0.01); Platelet Count 149 X 10*3/uL (140-440); RDW 16.8 % (11.5-14.5); WBC 15.58 X 10*3/uL (4.50-10.00)
[2023-07-11 11:12] LABS: ALT 12 U/L (8-44); AST 11 U/L (13-35); Albumin 3.4 d/dL (3.8-4.9); Albumin/Globulin Ratio 1.13 Ratio (1.60-3.17); Alkaline Phosphatase 91 U/L (41-126); BUN/Creat Ratio 11.85 Ratio (12.00-20.00); Blood Urea Nitrogen 15.4 mg/dL (9.0-27.0); Carbon Dioxide 22.3 mmol/L (21.6-31.8); Chloride 102 mmol/L (96-109); Glucose 204 mg/dL (70-110); Potassium 5.5 mmol/L (3.5-5.5); Sodium 134 mmol/L (135-145); Total Bilirubin 0.2 mg/dL (0.3-1.2); Total Protein 6.4 d/dL (6.2-8.2)
[2023-07-11 11:57] LABS: Glucose,Whole Blood 273 mg/dL (70-110)
[2023-07-11] MEDS: LEVOTHYROXINE 88 MCG TAB PO SCH (16:32)
[2023-07-11 16:33] LABS: Glucose,Whole Blood 244 mg/dL (70-110)
--- NOTE | 2023-07-11 19:07 | MR ---
EXAMINATION TYPE: MR LE non joint RT wo/w con DATE OF EXAM: 07/11/2023 COMPARISON: CT right lower extremity 4 days earlier. HISTORY: Pain to right stump, possible osteomyelitis. CONTRAST: Standard multiplanar, multisequence MRI departmental protocol images were obtained without contrast a nd with 8 mL intravenous Gadobutrol gadolinium contrast. FINDINGS: Redemonstration of amputation defect at proximal to mid diaphysis of the right tibia and fi bula. There is tiny 8 mm focus of increased T2 signal but also showing increased T1 signal involving the posterior aspect of the distal tibial stump. Remainder of stomach shows no suspicious increased T 2 signal or enhancement to suggest acute osteomyelitis. There is susceptibility artifact at level of the distal fibular stump making evaluation of this level slightly suboptimal. No definitive increased T2 signal or enhancement in the remnant fibula. There is moderate diffuse subcutaneous edema and edema throughout the muscles bilaterally. Left lower extremity is larger in size versus right lower extremity consistent with right-sided disuse atrophy. No well-formed fluid collection or abscess seen. IMPRESSION: No convincing evidence for acute osteomyelitis in the right tibia or fibula stump.
[2023-07-11 20:01] LABS: Glucose,Whole Blood 281 mg/dL (70-110)
[2023-07-11] MEDS: MONTELUKAST 10 MG TAB PO SCH (21:47)
[2023-07-11] MEDS: QUEtiapine 200 MG TAB PO SCH (21:47)
[2023-07-11] MEDS: FLUTICASONE 50MCG/SPRAY NASAL 16GM EA NOSTRIL SCH (21:48)
[2023-07-12] MEDS: HYDROcodone/APAP 10-325MG 1 EACH TAB PO PRN (02:00)
[2023-07-12] MEDS: HYDROmorphone 0.5 MG/0.5 ML SYRINGE IVP PRN (03:32)
[2023-07-12 06:33] LABS: Glucose,Whole Blood 227 mg/dL (70-110)
[2023-07-12] MEDS: LEVOTHYROXINE 88 MCG TAB PO SCH (06:52)
[2023-07-12] MEDS: INSULIN ASPART (NovoLOG) 100 UNIT/ML VIAL SQ SCH (06:52)
[2023-07-12] MEDS: INSULIN DETEMIR (LEVEMIR) 100 UNIT/ML SYR SQ SCH (06:52)
[2023-07-12 07:24] VITALS: BP 110/71; PULSE 85; RESP 16; TEMP 98.6
[2023-07-12] MEDS: SYMBICORT 160-4.5 MCG INHALER INHALATION SCH (07:35)
[2023-07-12] MEDS: CHOLECALCIFEROL 125 MCG (5000 IU) TABLET PO SCH (08:13)
[2023-07-12] MEDS: ASPIRIN 325 MG TAB PO SCH (08:13)
[2023-07-12] MEDS: FLUoxetine HCL 20 MG CAP PO SCH (08:13)
[2023-07-12] MEDS: GABAPENTIN 400 MG CAP PO SCH (08:13)
[2023-07-12] MEDS: LORATADINE 10 MG TAB PO SCH (08:13)
[2023-07-12] MEDS: ATORVASTATIN 40 MG TAB PO SCH (08:14)
[2023-07-12] MEDS: OXYBUTYNIN 10 MG TAB.ER.24 PO SCH (08:14)
[2023-07-12] MEDS: PRIMIDONE 25 MG TAB PO SCH (08:14)
--- NOTE | 2023-07-12 08:44 | P.DS ---
Providers Date of admission: 07/07/23 21:16 Attending physician: Yomi Kennedy Consults: 07/07/23 21:16 Consult Physician Urgent Consulting Provider: Juan Vaughn Consult Reason/Comments: Possible osteomyelitis of right tibia Do you want consulting provider notified?: Yes Primary care physician: Yomi Kennedy - Discharge Diagnosis(es) (1) Abnormal computed tomography of lower extremity Current Visit: Yes Status: Acute (2) Osteomyelitis of right tibia Current Visit: Yes Status: Acute (3) COPD (chronic obstructive pulmonary disease) Current Visit: No Status: Acute (4) History of below-knee amputation of right lower extremity Current Visit: No Status: Acute (5) Hypertension Current Visit: No Status: Acute (6) Opioid dependence Current Visit: No Status: Acute (7) Type 2 diabetes mellitus Current Visit: No Status: Acute Hospital Course: This is a 68-year-old female who presented to the emergency room with complaints of pain on her right stump. She has a history of right below the knee amputation, and noticed increased swelling and redness in the area along with increased pain. Patient had a CT which showed question for osteomyelitis. Infectious disease was consulted and wanted an MRI of patient's right stump. MRI was completed yesterday with no evidence of osteomyelitis found. Patient reports she is feeling much better, pain is well-controlled. She'll be discharged home today with home care. She will continue her home medications. Patient seen and evaluated by nurse practitioner, physician in agreement with plan Patient Condition at Discharge: Good Plan - Discharge Summary Discharge Rx Participant: No New Discharge Prescriptions: Continue Oxybutynin Chloride [oxyBUTYnin chloride ER] 10 mg PO DAILY Fluticasone Nasal [place] [Flonase Nasal [place]] 1 spr EA NOSTRIL HS Albuterol Inhaler [Ventolin Hfa Inhaler] 2 puff INHALATION RT-QID PRN PRN Reason: Shortness Of Breath Cholecalciferol (Vitamin D3) [Vitamin D3 (125 MCG = 5,000 IU)] 125 mcg PO ASHLEY LY Fluticasone Propion/Salmeterol [Advair 500-50 Diskus] 1 puff INHALATION RT- BID Gabapentin 800 mg PO TID FLUoxetine HCL 40 mg PO DAILY Ibuprofen [Motrin] 600 mg PO Q8HR PRN PRN Reason: Pain Primidone [Mysoline] 25 mg PO BID Montelukast [Singulair] 10 mg PO HS Mupirocin 2% Oint [Bactroban 2% Oint] 1 applic TOPICAL BID Levothyroxine Sodium 88 mcg PO DAILY Atorvastatin [Lipitor] 40 mg PO DAILY Triamcinolone 0.1% Cream [Kenalog 0.1% Cream] 1 applic TOPICAL BID PRN PRN Reason: Rash Aspirin 325 mg PO DAILY #30 tab Levocetirizine Dihydrochloride [Xyzal] 5 mg PO BID Famotidine [Pepcid] 20 mg PO BID metFORMIN HCL 1,000 mg PO BID QUEtiapine [SEROquel] 200 mg PO HS LORazepam [Ativan] 1 mg PO Q6H PRN PRN Reason: Anxiety Acetaminophen Tab [Tylenol] 1,000 mg PO Q6HR PRN #30 tablet PRN Reason: Pain Insulin Glargine,Hum.rec.anlog [Lantus Solostar Pen] 30 units SQ BID #3 each HYDROcodone/APAP 10-325MG [[place] 10-325] 1 tab PO Q6H PRN PRN Reason: Pain Discharge Medication List Oxybutynin Chloride [oxyBUTYnin chloride ER] 10 mg PO DAILY 08/17/20 [History] Fluticasone Nasal [place] [Flonase Nasal [place]] 1 spr EA NOSTRIL HS 09/17/21 [History] Albuterol Inhaler [Ventolin Hfa Inhaler] 2 puff INHALATION RT-QID PRN 12/14/21 [History] Levothyroxine Sodium 88 mcg PO DAILY 12/14/21 [History] Atorvastatin [Lipitor] 40 mg PO DAILY 06/16/22 [History] Cholecalciferol (Vitamin D3) [Vitamin D3 (125 MCG = 5,000 IU)] 125 mcg PO DAILY 06/16/22 [History] Fluticasone Propion/Salmeterol [Advair 500-50 Diskus] 1 puff INHALATION RT-BID 06/16/22 [History] Triamcinolone 0.1% Cream [Kenalog 0.1% Cream] 1 applic TOPICAL BID PRN 06/16/22 [History] Aspirin 325 mg PO DAILY #30 tab 06/18/22 [Rx] Famotidine [Pepcid] 20 mg PO BID 01/19/23 [History] Levocetirizine Dihydrochloride [Xyzal] 5 mg PO BID 01/19/23 [History] FLUoxetine HCL 40 mg PO DAILY 03/31/23 [History] Gabapentin 800 mg PO TID 03/31/23 [History] Ibuprofen [Motrin] 600 mg PO Q8HR PRN 03/31/23 [History] LORazepam [Ativan] 1 mg PO Q6H PRN 03/31/23 [History] QUEtiapine [SEROquel] 200 mg PO HS 03/31/23 [History] metFORMIN HCL 1,000 mg PO BID 03/31/23 [History] Montelukast [Singulair] 10 mg PO HS 05/07/23 [History] Primidone [Mysoline] 25 mg PO BID 05/07/23 [History] Acetaminophen Tab [Tylenol] 1,000 mg PO Q6HR PRN #30 tablet 06/01/23 [Rx] Insulin Glargine,Hum.rec.anlog [Lantus Solostar Pen] 30 units SQ BID #3 each 06/01/23 [Rx] HYDROcodone/APAP 10-325MG [[place] 10-325] 1 tab PO Q6H PRN 06/17/23 [History] Mupirocin 2% Oint [Bactroban 2% Oint] 1 applic TOPICAL BID 06/17/23 [History] Follow up Appointment(s)/Referral(s): [facility], [NON-STAFF] - 1-2 Days Yomi Kennedy MD [Primary Care Provider] - 1 Week Discharge Disposition: HOME WITH HOME HEALTH SERVICES
[2023-07-12] MEDS ORDERED: FAMOTIDINE 20 MG TAB PO SCH (09:00)
[2023-07-12 11:33] LABS: Glucose,Whole Blood 208 mg/dL (70-110)
[2023-07-12 12:54] VITALS: BMI 32.1
--- NOTE | 2023-07-12 14:24 | P.PN ---
Subjective Progress Note Date: 07/11/23 Principal diagnosis: Abdominal CT and a question of right BK stump osteomyelitis Patient is a 68-year-old female with multiple comorbidities did have a history of diabetes mellitus hypertension COPD PAD in this patient who did have a right below the knee amputation patient presented to [facility] ER concerning for right lower extremity pain, patient did have a CT of the right lower extremity which did show some cortical lucency concerning for possible osteomyelitis did have elevated sed rate. On today's evaluation that is 07/11/2023, the patient continues to be afebrile, the patient is breathing comfortably on room air and denies any chest pain or cough, patient denies abdominal pain, and denies any nausea/vomiting or diarrhea, the patient denies any worsening pain to the right BKA stump Patient did have white count of 15.5., creatinine 1.3, ESR of 60, blood culture negative Objective - Vital Signs Vital signs: Vital Signs Temp 97.6 F 07/11/23 06:56 Pulse 83 07/11/23 06:56 Resp 16 07/11/23 06:56 BP 101/65 07/11/23 06:56 Pulse Ox 97 07/11/23 06:56 FiO2 Intake & Output 07/10/23 07/11/23 07/11/23 18:59 06:59 18:59 Other: Voiding Method Bedside Commode Bedside Commode # Voids 1 2 - Exam GENERAL DESCRIPTION: An elderly female lying in bed in no distress RESPIRATORY SYSTEM: Unlabored breathing , clear to auscultation anteriorly HEART: S1 S2 regular rate and rhythm , ABDOMEN: Soft , no tenderness EXTREMITIES: Right BKA stump incision is healed no swelling redness - Labs CBC & Chem 7: 07/11/23 06:43 07/11/23 06:43 Labs: Abnormal Lab Results - Last 24 Hours (Table) 07/10/23 07/10/23 07/10/23 Range/Units 06:22 11:47 16:33 RBC 3.33 L (4.10-5.20) X 10*6/uL Hgb 8.8 L (12.0-15.0) d/dL Hct 28.1 L (37.2-46.3) % MCH 26.4 L (27.0-32.0) pg MCHC 31.3 L (32.0-37.0) d/dL RDW 16.6 H (11.5-14.5) % Plt Count 131 L (140-440) X 10*3/uL MPV 9.3 L (9.5-12.2) FL POC Glucose (mg/dL) 246 H 333 H (70-110) mg/dL 07/10/23 07/11/23 Range/Units 21:20 06:22 RBC (4.10-5.20) X 10*6/uL Hgb (12.0-15.0) d/dL Hct (37.2-46.3) % MCH (27.0-32.0) pg MCHC (32.0-37.0) d/dL RDW (11.5-14.5) % Plt Count (140-440) X 10*3/uL MPV (9.5-12.2) FL POC Glucose (mg/dL) 287 H 221 H (70-110) mg/dL Microbiology - Last 24 Hours (Table) 07/07/23 19:08 Blood Culture - Preliminary Blood 07/07/23 19:23 Blood Culture - Preliminary Blood Assessment and Plan (1) Abnormal computed tomography of lower extremity Status: Acute Code(s): R93.6 - ABNORMAL FINDINGS ON DIAGNOSTIC IMAGING OF LIMBS SNOMED Code(s): 576463137 (2) Osteomyelitis of right tibia Status: Acute Code(s): M86.9 - OSTEOMYELITIS, UNSPECIFIED SNOMED Code(s): 4971259024175371 (3) Leukocytosis Status: Acute Code(s): D72.829 - ELEVATED WHITE BLOOD CELL COUNT, UNSPECIFIED SNOMED Code(s): 997500629 Plan: 1patient presented hospital with right lower extremity pain this patient who did have a history of right below the knee amputation patient right BKA stump is currently healed and there was no evidence of any swelling or redness patient is afebrile however did have elevated white count and inflammatory markers and abnormal CT that is slightly concerning 2- MRI of the right BKA stump with contrast to rule out osteomyelitis pending, is currently pending , clinical low suspicion for osteomyelitis and will monitor the patient closely off antibiotics Dictation was produced using [employer] dictation software. please excuse any grammatical, word or spelling errors. Time with Patient: Less than 30
--- NOTE | 2023-07-12 14:26 | P.PN ---
Subjective Progress Note Date: 07/09/23 Principal diagnosis: Abdominal CT and a question of right BK stump osteomyelitis Patient is a 68-year-old female with multiple comorbidities did have a history of diabetes mellitus hypertension COPD PAD in this patient who did have a right below the knee amputation patient presented to [facility] ER concerning for right lower extremity pain, patient did have a CT of the right lower extremity which did show some cortical lucency concerning for possible osteomyelitis did have elevated sed rate. On today's evaluation that is 07/09/2023, the patient continues to be afebrile, the patient is breathing comfortably on room air and denies any chest pain or cough, patient denies abdominal pain, and denies any nausea/vomiting or diarrhea patient denies any worsening pain to the right BKA stump Patient did have white count of 8.63, creatinine 0.73 Objective - Vital Signs Vital signs: Vital Signs Temp 97.7 F 07/09/23 07:04 Pulse 84 07/09/23 10:11 Resp 17 07/09/23 10:11 BP 114/67 07/09/23 07:04 Pulse Ox 95 07/09/23 07:04 FiO2 Intake & Output 07/08/23 07/09/23 07/09/23 18:59 06:59 18:59 Output Total 200 200 Balance -200 -200 Output: Stool 200 200 Other: # Voids 2 2 # Bowel Movements 1 - Exam GENERAL DESCRIPTION: An elderly female lying in bed in no distress RESPIRATORY SYSTEM: Unlabored breathing , clear to auscultation anteriorly HEART: S1 S2 regular rate and rhythm , ABDOMEN: Soft , no tenderness EXTREMITIES: Right BKA stump incision is healed no swelling redness - Labs CBC & Chem 7: 07/10/23 06:22 07/10/23 06:22 Labs: Abnormal Lab Results - Last 24 Hours (Table) 07/07/23 07/08/23 07/08/23 Range/Units 20:53 16:35 19:34 RBC (4.10-5.20) X 10*6/uL Hgb (12.0-15.0) d/dL Hct (37.2-46.3) % MCH (27.0-32.0) pg MCHC (32.0-37.0) d/dL RDW (11.5-14.5) % MPV (9.5-12.2) FL ESR 60 H (0-30) mm/Hr Chloride (98-107) mmol/L Carbon Dioxide (22-30) mmol/L Glucose (74-99) mg/dL POC Glucose (mg/dL) 236 H 198 H (70-110) mg/dL Hemoglobin A1c (<=6.0) % Albumin (3.5-5.0) g/dL 07/09/23 07/09/23 07/09/23 Range/Units 04:59 06:02 06:02 RBC (4.10-5.20) X 10*6/uL Hgb (12.0-15.0) d/dL Hct (37.2-46.3) % MCH (27.0-32.0) pg MCHC (32.0-37.0) d/dL RDW (11.5-14.5) % MPV (9.5-12.2) FL ESR (0-30) mm/Hr Chloride 108 H (98-107) mmol/L Carbon Dioxide 21 L (22-30) mmol/L Glucose 150 H (74-99) mg/dL POC Glucose (mg/dL) 175 H (70-110) mg/dL Hemoglobin A1c 8.4 H (<=6.0) % Albumin 3.3 L (3.5-5.0) g/dL 07/09/23 07/09/23 Range/Units 06:02 11:03 RBC 3.61 L (4.10-5.20) X 10*6/uL Hgb 9.6 L (12.0-15.0) d/dL Hct 30.3 L (37.2-46.3) % MCH 26.6 L (27.0-32.0) pg MCHC 31.7 L (32.0-37.0) d/dL RDW 16.9 H (11.5-14.5) % MPV 9.1 L (9.5-12.2) FL ESR (0-30) mm/Hr Chloride (98-107) mmol/L Carbon Dioxide (22-30) mmol/L Glucose (74-99) mg/dL POC Glucose (mg/dL) 289 H (70-110) mg/dL Hemoglobin A1c (<=6.0) % Albumin (3.5-5.0) g/dL Assessment and Plan (1) Abnormal computed tomography of lower extremity Current Visit: Yes Status: Acute Code(s): R93.6 - ABNORMAL FINDINGS ON DIAGNOSTIC IMAGING OF LIMBS SNOMED Code(s): 190369505 (2) Osteomyelitis of right tibia Current Visit: Yes Status: Acute Code(s): M86.9 - OSTEOMYELITIS, UNSPECIFIED SNOMED Code(s): 3399775924569282 (3) Leukocytosis Current Visit: No Status: Acute Code(s): D72.829 - ELEVATED WHITE BLOOD CELL COUNT, UNSPECIFIED SNOMED Code(s): 286953311 Plan: 1patient presented hospital with right lower extremity pain this patient who did have a history of right below the knee amputation patient right BKA stump is currently healed and there was no evidence of any swelling or redness patient is afebrile however did have elevated white count and inflammatory markers and abnormal CT that is slightly concerning 2-we currently waiting for MRI of the right BKA stump with contrast to rule out osteomyelitis if the MRI suspicious patient will benefit from evaluation by vascular surgery for deep bone biopsy for microbiological diagnosis 3-we'll monitor the patient closely off antibiotics Dictation was produced using [employer] dictation software. please excuse any gr ammatical, word or spelling errors.
--- NOTE | 2023-07-12 14:26 | P.PN ---
Subjective Progress Note Date: 07/12/23 Principal diagnosis: Abdominal CT and a question of right BK stump osteomyelitis Patient is a 68-year-old female with multiple comorbidities did have a history of diabetes mellitus hypertension COPD PAD in this patient who did have a right below the knee amputation patient presented to [facility] ER concerning for right lower extremity pain, patient did have a CT of the right lower extremity which did show some cortical lucency concerning for possible osteomyelitis did have elevated sed rate. On today's evaluation that is 07/12/2023, the patient continues to be afebrile, the patient is breathing comfortably on room air, the patient denies any chest pain or cough, patient denies abdominal pain, and denies any nausea/vomiting or diarrhea , the patient denies pain to the right BKA stump Patient did have white count of 15.5., creatinine 1.3 as of yesterday no laboratory today, ESR of 60, blood culture negative Objective - Vital Signs Vital signs: Vital Signs Temp 98.6 F 07/12/23 06:52 Pulse 85 07/12/23 06:52 Resp 16 07/12/23 06:52 BP 110/71 07/12/23 06:52 Pulse Ox 97 07/12/23 06:52 FiO2 Intake & Output 07/11/23 07/12/23 07/12/23 18:59 06:59 18:59 Other: Voiding Method Bedside Commode Bedside Commode # Voids 2 2 # Bowel Movements 3 - Exam GENERAL DESCRIPTION: An elderly female lying in bed in no distress RESPIRATORY SYSTEM: Unlabored breathing , clear to auscultation anteriorly HEART: S1 S2 regular rate and rhythm , ABDOMEN: Soft , no tenderness EXTREMITIES: Right BKA stump incision is healed no swelling redness - Labs CBC & Chem 7: 07/11/23 06:43 07/11/23 06:43 Labs: Abnormal Lab Results - Last 24 Hours (Table) 07/11/23 07/11/23 07/11/23 Range/Units 06:43 06:43 11:56 WBC 15.58 H (4.50-10.00) X 10*3/uL RBC 3.60 L (4.10-5.20) X 10*6/uL Hgb 9.8 L (12.0-15.0) d/dL Hct 30.2 L (37.2-46.3) % RDW 16.8 H (11.5-14.5) % Sodium 134 L (135-145) mmol/L Est GFR (CKD-EPI) 45 L (>=60) BUN/Creatinine Ratio 11.85 L (12.00-20.00) Ratio Glucose 204 H (70-110) mg/dL POC Glucose (mg/dL) 273 H (70-110) mg/dL Total Bilirubin 0.2 L (0.3-1.2) mg/dL AST 11 L (13-35) U/L Albumin 3.4 L (3.8-4.9) d/dL Albumin/Globulin Ratio 1.13 L (1.60-3.17) Ratio 07/11/23 07/11/23 07/12/23 Range/Units 16:32 20:00 06:32 WBC (4.50-10.00) X 10*3/uL RBC (4.10-5.20) X 10*6/uL Hgb (12.0-15.0) d/dL Hct (37.2-46.3) % RDW (11.5-14.5) % Sodium (135-145) mmol/L Est GFR (CKD-EPI) (>=60) BUN/Creatinine Ratio (12.00-20.00) Ratio Glucose (70-110) mg/dL POC Glucose (mg/dL) 244 H 281 H 227 H (70-110) mg/dL Total Bilirubin (0.3-1.2) mg/dL AST (13-35) U/L Albumin (3.8-4.9) d/dL Albumin/Globulin Ratio (1.60-3.17) Ratio Microbiology - Last 24 Hours (Table) 07/07/23 19:08 Blood Culture - Preliminary Blood 07/07/23 19:23 Blood Culture - Preliminary Blood Assessment and Plan (1) Abnormal computed tomography of lower extremity Status: Acute Code(s): R93.6 - ABNORMAL FINDINGS ON DIAGNOSTIC IMAGING OF [place]AUD[place] BS SNOMED Code(s): 157611008 (2) Osteomyelitis of right tibia Status: Acute Code(s): M86.9 - OSTEOMYELITIS, UNSPECIFIED SNOMED Code(s): 6172848770162389 (3) Leukocytosis Status: Acute Code(s): D72.829 - ELEVATED WHITE BLOOD CELL COUNT, UNSPECIFIED SNOMED Code(s): 237212568 Plan: 1patient presented hospital with right lower extremity pain this patient who did have a history of right below the knee amputation patient right BKA stump is currently healed and there was no evidence of any swelling or redness patient is afebrile however did have elevated white count and inflammatory markers and abnormal CT that was slightly concerning 2- MRI of the right BKA stump with contrast was suggestive of osteomyelitis and clinical low suspicion for osteomyelitis no need for any antibiotics at discharge Dictation was produced using [employer] software. please excuse any grammatical, word or spelling errors.
== END 2023-07-12 12:10 | disposition home health service (06) | DRG 540 ==
LOC: EC 17:11 → 4SSUR 21:16
PROVIDERS: ADMIT Family Medicine; ATTEND Family Medicine
DX: M86.161 Other acute osteomyelitis, right tibia and fibula (principal); F11.20 Opioid dependence, uncomplicated; E11.69 Type 2 diabetes mellitus with other specified complication; E03.9 Hypothyroidism, unspecified; Z79.890 Hormone replacement therapy; J44.9 Chronic obstructive pulmonary disease, unspecified; I10 Essential (primary) hypertension; F32.A Depression, unspecified; E78.5 Hyperlipidemia, unspecified; Z89.511 Acquired absence of right leg below knee; Z79.4 Long term (current) use of insulin; Z79.82 Long term (current) use of aspirin; Z79.84 Long term (current) use of oral hypoglycemic drugs; Z90.710 Acquired absence of both cervix and uterus; M19.90 Unspecified osteoarthritis, unspecified site; Z79.899 Other long term (current) drug therapy; Z82.49 Family history of ischemic heart disease and other diseases of the circulatory system; E11.51 Type 2 diabetes mellitus with diabetic peripheral angiopathy without gangrene; F17.210 Nicotine dependence, cigarettes, uncomplicated; Z87.19 Personal history of other diseases of the digestive system; Z90.49 Acquired absence of other specified parts of digestive tract
CPT/HCPCS: 36415; 80053; 83036; 83605; 85025; 85027; 85652; 86140; 87040; 94640

== ENCOUNTER 2023-07-23 18:28 | Emergency (ER) | payer MEDICARE, OTHER ==
[2023-07-23] MEDS ORDERED: HYDROmorphone 0.5 MG/0.5 ML SYRINGE IVP STA (19:14)
--- NOTE | 2023-07-23 19:16 | ED ---
Extremity Problem HPI - General Chief complaint: Extremity Problem,Nontraumatic Stated complaint: right leg pain Time Seen by Provider: 07/23/23 18:57 Source: patient, RN notes reviewed Mode of arrival: ambulatory Limitations: no limitations - History of Present Illness Initial comments: 68-year-old female presents emergency Department with multiple complaints. She complains of abdominal pain, right leg pain. 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 Denies any trauma no redness no drainage open sores. Patient also complains of abdominal pain more diffuse nature she states that she had prostate performed in January. Denies fevers denies any nausea or vomiting. She states she had normal stool output. She has no urinary complaints. - Related Data Home Medications Medication Instructions Recorded Confirmed Oxybutynin Chloride [oxyBUTYnin 10 mg PO DAILY 08/17/20 07/07/23 chloride ER] Fluticasone Nasal [place] [Flonase 1 spr EA NOSTRIL HS 09/17/21 07/07/23 Nasal [place]] Albuterol Inhaler [Ventolin Hfa 2 puff INHALATION RT-QID PRN 12/14/21 07/07/23 Inhaler] Levothyroxine Sodium 88 mcg PO DAILY 12/14/21 07/07/23 Atorvastatin [Lipitor] 40 mg PO DAILY 06/16/22 07/07/23 Cholecalciferol (Vitamin D3) 125 mcg PO DAILY 06/16/22 07/07/23 [Vitamin D3 (125 MCG = 5,000 IU)] Fluticasone Propion/Salmeterol 1 puff INHALATION RT-BID 06/16/22 07/07/23 [Advair 500-50 Diskus] Triamcinolone 0.1% Cream [Kenalog 1 applic TOPICAL BID PRN 06/16/22 07/07/23 0.1% Cream] Famotidine [Pepcid] 20 mg PO BID 01/19/23 07/07/23 Levocetirizine Dihydrochloride 5 mg PO BID 01/19/23 07/07/23 [Xyzal] FLUoxetine HCL 40 mg PO DAILY 03/31/23 07/07/23 Gabapentin 800 mg PO TID 03/31/23 07/07/23 Ibuprofen [Motrin] 600 mg PO Q8HR PRN 03/31/23 07/07/23 LORazepam [Ativan] 1 mg PO Q6H PRN 03/31/23 07/07/23 QUEtiapine [SEROquel] 200 mg PO HS 03/31/23 07/07/23 metFORMIN HCL 1,000 mg PO BID 03/31/23 07/07/23 Montelukast [Singulair] 10 mg PO HS 05/07/23 07/07/23 Primidone [Mysoline] 25 mg PO BID 05/07/23 07/07/23 HYDROcodone/APAP 10-325MG [[place] 1 tab PO Q6H PRN 06/17/23 07/07/23 10-325] Mupirocin 2% Oint [Bactroban 2% 1 applic TOPICAL BID 06/17/23 07/07/23 Oint] Previous Rx's Medication Instructions Recorded Aspirin 325 mg PO DAILY #30 tab 06/18/22 Acetaminophen Tab [Tylenol] 1,000 mg PO Q6HR PRN #30 tablet 06/01/23 Insulin Glargine,Hum.rec.anlog 30 units SQ BID #3 each 06/01/23 [Lantus Solostar Pen] Allergies Allergy/AdvReac Type Severity Reaction Status Date / Time No Known Allergies Allergy Verified 07/23/23 18:37 Review of Systems ROS Statement: Those systems with pertinent positive or pertinent negative responses have been documented in the HPI. ROS Other: All systems not noted in ROS Statement are negative. 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 Absent: scleral icterus, conjunctival injection, periorbital swelling ENT exam: Present: normal exam, normal oropharynx, mucous membranes moist Neck exam: Present: normal inspection, full ROM. Absent: tenderness, meningismus, lymphadenopathy Respiratory exam: Present: normal lung sounds bilaterally. Absent: respiratory distress, wheezes, rales, rhonchi, stridor Cardiovascular Exam: Present: regular rate, normal rhythm, normal heart sounds. Absent: systolic murmur, diastolic murmur, rubs, gallop, clicks GI/Abdominal exam: Present: soft, tenderness (Mild diffuse), normal bowel sounds, other (Colostomy noted, normal output). Absent: distended, guarding, rebound, rigid Extremities exam: Present: other (Right below knee amputation noted, no open sores no erythema) Back exam: Absent: CVA tenderness (R), CVA tenderness (L) Neurological exam: Present: alert Course Vital Signs 07/23/23 18:35 Temperature 98.5 F Pulse Rate 86 Respiratory 17 Rate Blood Pressure 152/75 O2 Sat by Pulse 100 Oximetry Medical Decision Making - Medical Decision Making Was pt. sent in by a medical professional or institution (, PA, HEAD COACH, urgent care, hospital, or custodial...) When possible be specific @ -No Did you speak to anyone other than the patient for history (EMS, parent, family, police, friend...)? What history was obtained from this source @ -No Did you review nursing and triage notes (agree or disagree)? Why? @ -I reviewed and agree with nursing and triage notes Were old charts reviewed (outside hosp., previous admission, EMS record, old EKG, old radiological studies, urgent care reports/EKG's, custodial records)? Report findings @ -No old charts were reviewed Differential Diagnosis (chest pain, altered mental status, abdominal pain women, abdominal pain men, vaginal bleeding, weakness, fever, dyspnea, syncope, headache, dizziness, GI bleed, back pain, seizure, CVA, palpatations, mental health, musculoskeletal)? @ -Phantom leg pain, chronic pain, abdominal pain EKG interpreted by me (3pts min.). @ -None X-rays interpreted by me (1pt min.). @ -X-ray right knee no acute abnormality., X-ray KUB nonspecific bowel gas pattern nonobstructive CT interpreted by me (1pt min.). @ -None done U/S interpreted by me (1pt. min.). @ -None done What testing was considered but not performed or refused? (CT, X-rays, U/S, labs)? Why? @ -None What meds were considered but not given or refused? Why? @ -None Did you discuss the management of the patient with other professionals (professionals i.e. Dr., PA, HEAD COACH, lab, RT, psych nurse, social media marketing specialist, advice line rn, teacher, booking officer, business case analyst)? Give summary @ -No Was smoking cessation discussed for >3mins.? @ -No Was critical care preformed (if so, how long)? @ -No Were there social determinants of health that impacted care today? How? (Homelessness, low income, unemployed, alcoholism, drug addiction, transportation, low edu. Level, literacy, decrease access to med. care, half-way, rehab)? @ -No Was there de-escalation of care discussed even if they declined (Discuss DNR or withdrawal of care, Hospice)? DNR status @ -No What co-morbidities impacted this encounter? (DM, HTN, Smoking, COPD, CAD, Cancer, CVA, ARF, Chemo, Hep., AIDS, mental health diagnosis, sleep apnea, morbid obesity)? @ -None Was patient admitted / discharged? Hospital course, mention meds given and route, prescriptions, significant lab abnormalities, going to OR and other pertinent info. @ -Discharge patient is only complaining of leg pain at this points she did have. Labs and imaging with no acute findings for her abdominal complaints which is not resolved. Patient is on chronic pain meds but she only took one dose of her 4 doses today she offers no other further information and there is no signs of infection or vascular compromise. Patient is discharged in stable condition Undiagnosed new problem with uncertain prognosis? @ -No Drug Therapy requiring intensive monitoring for toxicity (Heparin, Nitro, Insulin, Cardizem)? @ -No Were any procedures done? @ -No Diagnosis/symptom? @ -Acute Leg pain, chronic pain Acute, or Chronic, or Acute on Chronic? @ -[Acute Uncomplicated (without systemic symptoms) or Complicated (systemic symptoms)? @ -Uncomplicated Side effects of treatment? @ -No Exacerbation, Progression, or Severe Exacerbation? @ -No Poses a threat to life or bodily function? How? (Chest pain, [place], MA, pneumonia, PE, COPD, DKA, ARF, appy, cholecystitis, CVA, Diverticulitis, Homicidal, Suicidal, threat to staff... and all critical care pts) @ -No - Lab Data Result diagrams: 07/23/23 19:51 07/23/23 19:51 Lab Results 07/23/23 07/23/23 07/23/23 Range/Units 19:51 19:51 19:51 WBC 10.9 H (3.8-10.6) k/uL RBC 3.97 (3.80-5.40) m/uL Hgb 11.3 L (11.4-16.0) gm/dL Hct 33.6 L (34.0-46.0) % MCV 84.7 (80.0-100.0) fL MCH 28.3 (25.0-35.0) pg MCHC 33.4 (31.0-37.0) g/dL RDW 17.2 H (11.5-15.5) % Plt Count 243 (150-450) k/uL MPV 6.9 Neutrophils % 77 % Lymphocytes % 17 % Monocytes % 4 % Eosinophils % 2 % Basophils % 0 % Neutrophils # 8.3 H (1.3-7.7) k/uL Lymphocytes # 1.8 (1.0-4.8) k/uL Monocytes # 0.4 (0-1.0) k/uL Eosinophils # 0.2 (0-0.7) k/uL Basophils # 0.0 (0-0.2) k/uL Anisocytosis Slight Sodium 137 (137-145) mmol/L Potassium 5.4 H (3.5-5.1) mmol/L Chloride 101 (98-107) mmol/L Carbon Dioxide 24 (22-30) mmol/L Anion Gap 12 mmol/L BUN 19 H (7-17) mg/dL Creatinine 0.75 (0.52-1.04) mg/dL Est GFR (CKD-EPI)AfAm >90 (>60 ml/min/1.73 sqM) Est GFR (CKD-EPI)NonAf 82 (>60 ml/min/1.73 sqM) Glucose 271 H (74-99) mg/dL Plasma Lactic Acid Kashif 1.5 (0.7-2.0) mmol/L Calcium 9.3 (8.4-10.2) mg/dL Total Bilirubin 0.3 (0.2-1.3) mg/dL AST 19 (14-36) U/L ALT 18 (4-34) U/L Alkaline Phosphatase 129 H (38-126) U/L C-Reactive Protein 1.9 H (<1.0) mg/dL Total Protein 7.9 (6.3-8.2) g/dL Albumin 4.1 (3.5-5.0) g/dL Disposition Clinical Impression: Leg pain, Chronic pain Disposition: HOME SELF-CARE Condition: Stable Additional Instructions: Please return to the Emergency Department if symptoms worsen or any other concerns. please take your pain medication as directed. Is patient prescribed a controlled substance at d/c from ED?: No Referrals: Yomi Kennedy MD [Primary Care Provider] - 1-2 days Time of Disposition: 21:29
[2023-07-23 19:59] LABS: Anisocytosis Slight; Basophils % (A) 0 %; Eosinophils # (A) 0.2 k/uL (0-0.7); Eosinophils % (A) 2 %; HCT 33.6 % (34.0-46.0); HGB 11.3 gm/dL (11.4-16.0); Lymphocytes # (A) 1.8 k/uL (1.0-4.8); Lymphocytes % (A) 17 %; MCH 28.3 pg (25.0-35.0); MCHC 33.4 g/dL (31.0-37.0); MCV 84.7 fL (80.0-100.0); Mean Platelet Volume 6.9; Monocytes # (A) 0.4 k/uL (0-1.0); Monocytes % (A) 4 %; Neutrophils # (A) 8.3 k/uL (1.3-7.7); Neutrophils % (A) 77 %; Platelet Count 243 k/uL (150-450); RBC 3.97 m/uL (3.80-5.40); RDW 17.2 % (11.5-15.5); WBC 10.9 k/uL (3.8-10.6)
[2023-07-23 20:08] LABS: ALT 18 U/L (4-34); AST 19 U/L (14-36); African American GFR (CKD) >90 (>60 ml/min/1.73 sqM); Albumin 4.1 g/dL (3.5-5.0); Alkaline Phosphatase 129 U/L (38-126); Anion Gap 12 mmol/L; Blood Urea Nitrogen 19 mg/dL (7-17); Calcium 9.3 mg/dL (8.4-10.2); Carbon Dioxide 24 mmol/L (22-30); Chloride 101 mmol/L (98-107); Glucose 271 mg/dL (74-99); Non-African American GFR(CKD) 82 (>60 ml/min/1.73 sqM); Potassium 5.4 mmol/L (3.5-5.1); Sodium 137 mmol/L (137-145); Total Bilirubin 0.3 mg/dL (0.2-1.3); Total Protein 7.9 g/dL (6.3-8.2)
[2023-07-23 20:29] LABS: C Reactive Protein 1.9 mg/dL (<1.0)
--- NOTE | 2023-07-23 20:36 | XR ---
EXAMINATION TYPE: XR KUB DATE OF EXAM: 07/23/2023 COMPARISON: None INDICATION: Pain right lower quadrant TECHNIQUE: Single view abdomen upright view FINDINGS: Nonspecific bowel gas is present. Some small bowel loop may be within the mid abdomen. Colonic bowel gas is present. Dilated loops of bowel are not identified. No free air is evident. No differential ai r-fluid levels are present. Psoas margins are normal. No organomegaly is present. Postsurgical changes are within the lower lumbar spine. IMPRESSION: 1. Nonspecific abdomen. 2. CT would be recommended there is clinical concern for acute appendicitis.
--- NOTE | 2023-07-23 20:37 | XR ---
EXAMINATION TYPE: XR knee complete RT DATE OF EXAM: 07/23/2023 COMPARISON: 07/07/2023 HISTORY: Pain TECHNIQUE: 3 view right knee. FINDINGS: Vascular calcification is present. Joint space of the knee has moderate narrowing of the me dial compartment joint space. Lateral compartment joint space is preserved. No joint effusion is evid ent. There is a [id number] amputation. On the lateral projection no obvious abnormality is identified. This is excluded from the [id number] on the additional images. IMPRESSION: 1. Moderate degenerative changes medial compartment right knee.
[2023-07-23] MEDS ORDERED: KETOROLAC 15 MG/ML 1 ML VIAL IVP STA (20:38)
[2023-07-23] MEDS ORDERED: HYDROmorphone 1 MG/ML 1 ML SYRINGE IVP STA (21:29)
[2023-07-23 22:10] VITALS: BP 137/84; PULSE 90; RESP 20; TEMP 98.6
== END 2023-07-23 22:00 | disposition home or self-care (01) ==
LOC: EC 18:28
DX: G89.29 Other chronic pain (principal); M79.604 Pain in right leg; I10 Essential (primary) hypertension; E11.9 Type 2 diabetes mellitus without complications; J44.9 Chronic obstructive pulmonary disease, unspecified; F32.A Depression, unspecified; F17.200 Nicotine dependence, unspecified, uncomplicated; Z79.4 Long term (current) use of insulin; Z79.51 Long term (current) use of inhaled steroids; Z79.84 Long term (current) use of oral hypoglycemic drugs; Z79.899 Other long term (current) drug therapy
CPT/HCPCS: 36415; 80053; 83605; 85025; 86140; 73562; 74018; 99284; 96374; 96375 ×2; 96376; J3360; J1170 ×2; J1885

== ENCOUNTER 2023-07-24 08:26 | Emergency (ER) | payer MEDICARE, OTHER ==
[2023-07-24] MEDS ORDERED: HYDROmorphone 1 MG/ML 1 ML SYRINGE IM STA ×2 (09:04→10:59)
[2023-07-24] MEDS ORDERED: KETOROLAC 15 MG/ML 1 ML VIAL IM STA (09:04)
--- NOTE | 2023-07-24 09:09 | ED ---
Extremity Problem HPI - General Chief complaint: Extremity Problem,Nontraumatic Stated complaint: leg pain Time Seen by Provider: 07/24/23 08:46 Source: patient, RN notes reviewed Mode of arrival: wheelchair Limitations: no limitations - History of Present Illness Initial comments: This is a 68-year-old female who presents to the emergency department for pain to her right stump. Patient had a right BKA a few years ago and has been struggling with ongoing pain since. She's been evaluated here multiple times for this complaint. States that she's not sure why this continues to hurt or what is going to be done about it. She was evaluated here last night for the same complaint as well and discharged home. Patient does not elaborate on answers or provide much information. MD Complaint: extremity pain - Related Data Home Medications Medication Instructions Recorded Confirmed Oxybutynin Chloride [oxyBUTYnin 10 mg PO DAILY 08/17/20 07/07/23 chloride ER] Fluticasone Nasal [place] [Flonase 1 spr EA NOSTRIL HS 09/17/21 07/07/23 Nasal [place]] Albuterol Inhaler [Ventolin Hfa 2 puff INHALATION RT-QID PRN 12/14/21 07/07/23 Inhaler] Levothyroxine Sodium 88 mcg PO DAILY 12/14/21 07/07/23 Atorvastatin [Lipitor] 40 mg PO DAILY 06/16/22 07/07/23 Cholecalciferol (Vitamin D3) 125 mcg PO DAILY 06/16/22 07/07/23 [Vitamin D3 (125 MCG = 5,000 IU)] Fluticasone Propion/Salmeterol 1 puff INHALATION RT-BID 06/16/22 07/07/23 [Advair 500-50 Diskus] Triamcinolone 0.1% Cream [Kenalog 1 applic TOPICAL BID PRN 06/16/22 07/07/23 0.1% Cream] Famotidine [Pepcid] 20 mg PO BID 01/19/23 07/07/23 Levocetirizine Dihydrochloride 5 mg PO BID 01/19/23 07/07/23 [Xyzal] FLUoxetine HCL 40 mg PO DAILY 03/31/23 07/07/23 Gabapentin 800 mg PO TID 03/31/23 07/07/23 Ibuprofen [Motrin] 600 mg PO Q8HR PRN 03/31/23 07/07/23 LORazepam [Ativan] 1 mg PO Q6H PRN 03/31/23 07/07/23 QUEtiapine [SEROquel] 200 mg PO HS 03/31/23 07/07/23 metFORMIN HCL 1,000 mg PO BID 03/31/23 07/07/23 Montelukast [Singulair] 10 mg PO HS 05/07/23 07/07/23 Primidone [Mysoline] 25 mg PO BID 05/07/23 07/07/23 HYDROcodone/APAP 10-325MG [[place] 1 tab PO Q6H PRN 06/17/23 07/07/23 10-325] Mupirocin 2% Oint [Bactroban 2% 1 applic TOPICAL BID 06/17/23 07/07/23 Oint] Previous Rx's Medication Instructions Recorded Aspirin 325 mg PO DAILY #30 tab 06/18/22 Acetaminophen Tab [Tylenol] 1,000 mg PO Q6HR PRN #30 tablet 06/01/23 Insulin Glargine,Hum.rec.anlog 30 units SQ BID #3 each 06/01/23 [Lantus Solostar Pen] Allergies Allergy/AdvReac Type Severity Reaction Status Date / Time No Known Allergies Allergy Verified 07/24/23 08:41 Review of Systems ROS Statement: Those systems with pertinent positive or pertinent negative responses have been documented in the HPI. ROS Other: All systems not noted in ROS Statement are negative. 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, Ileostomy January 2023, Past Anesthesia/Blood Transfusion Reactions: No Reported Reaction Past Psychological History: Depression Smoking Status: Current every day smoker Past Alcohol Use History: None Reported Past Drug Use History: None Reported - Past Family History Father Family Medical History: Coronary Artery Disease (CAD) Mother Family Medical History: Diabetes Mellitus General Exam Limitations: no limitations General appearance: alert, in no apparent distress Head exam: Present: atraumatic, normocephalic, normal inspection Respiratory exam: Present: normal lung sounds bilaterally. Absent: respiratory distress, wheezes, rales, rhonchi, stridor Cardiovascular Exam: Present: regular rate, normal rhythm, normal heart sounds. Absent: systolic murmur, diastolic murmur, rubs, gallop, clicks Extremities exam: Present: other (There is no swelling, erythema, or heat to the right stump. There is a minor area of dryness. There is also some nonlocalized tenderness.) Neurological exam: Present: alert, oriented X3, CN II-XII intact Psychiatric exam: Present: normal affect, normal mood Course Vital Signs 07/24/23 07/24/23 08:39 09:40 Temperature 98.2 F 97.9 F Pulse Rate 89 86 Respiratory 20 18 Rate Blood Pressure 157/63 148/76 O2 Sat by Pulse 99 98 Oximetry Medical Decision Making - Medical Decision Making This is a 68-year-old female who presents to the emergency department for pain to her right stump. Was pt. sent in by a medical professional or institution? @ -No Did you speak to anyone other than the patient for history? @ -No Did you review nursing and triage notes? @ -Yes, and I agree, it is accurate with regards to the patient's symptoms. Were old charts reviewed? @ -No Differential Diagnosis? @ -Differential Stump Pain: Fracture, cellulitis, osteomyelitis, this is not meant to be an all-inclusive list. EKG interpreted by me (3pts min.)? @ -Not obtained X-rays interpreted by me (1pt min.)? @ -X-ray of the right tib-fib obtained. My interpretation identifies no acute fractures or lucencies. CT interpreted by me (1pt min.)? @ -Not obtained U/S interpreted by me (1pt. min.)? @ -Not obtained What testing was considered but not performed? (CT, X-rays, U/S, labs)? Why? @ -None What meds were considered but not given? Why? @ -None Did you discuss the management of the patient with other professionals? @ -No Did you reconcile home meds? @ -No Was smoking cessation discussed for >3mins.? @ -No Was critical care preformed (if so, how long)? @ -No Were there social determinants of health that impacted care today? How? (Homelessness, low income, unemployed, alcoholism, drug addiction, transportation, low edu. Level, literacy, decrease access to med. care, fpc, rehab)? @ -No Was there de-escalation of care discussed even if they declined? (Discuss DNR or withdrawal of care, Hospice)? @ -No What co-morbidities impacted this encounter? (DM, HTN, Smoking, COPD, CAD, Cancer, CVA, Hep., AIDS, mental health diagnosis, sleep apnea, morbid obesity)? @ -DM, right BKA Was patient admitted / discharged? @ -Discharged. Lab work obtained revealing no actionable findings. White blood cell count has actually improved from yesterday, when it was mildly elevated at 10.9, it is now 10.1. CRP has improved as well, it has gone from 1.9 to 1.1. X-ray of the right tib-fib reveals no acute process. It does reveal moderate to severe osteoarthritis. Other than mild dryness near the stump, there are no overlying skin changes suggestive of an infectious process. Symptoms consistent with the patient's chronic pain. Symptoms were controlled in the emergency department and she'll continue to take her pain medication at home. Discussed with the patient that she needs to follow-up with her primary care provider to discuss definitive management given the ongoing problems and pain that she's had to the right stump. Undiagnosed new problem with uncertain prognosis? @ -None Drug Therapy requiring intensive monitoring for toxicity (Heparin, Nitro, Insulin, Cardizem)? @ -None Were any procedures done? @ -None Diagnosis/symptom? @ -Right leg pain Acute, or Chronic, or Acute on Chronic? @ -Chronic Uncomplicated (without systemic symptoms) or Complicated (systemic symptoms)? @ -Uncomplicated Side effects of treatment? @ -None Exacerbation, Progression, or Severe Exacerbation] @ -Exacerbation Poses a threat to life or bodily function? @ -No Return precautions reviewed in depth, the patient is instructed to return to the emergency department with any new, worsening, or concerning symptoms. Patient verbalized understanding. This case was discussed in detail with the attending ED physician, Dr. Way. Presentation, findings, and treatment plan discussed in detail as well. - Lab Data Result diagrams: 07/24/23 09:08 07/24/23 09:08 Lab Results 07/24/23 07/24/23 07/24/23 Range/Units 09:08 09:08 09:08 WBC 10.1 (3.8-10.6) k/uL RBC 4.01 (3.80-5.40) m/uL Hgb 11.2 L (11.4-16.0) gm/dL Hct 34.1 (34.0-46.0) % MCV 85.1 (80.0-100.0) fL MCH 27.9 (25.0-35.0) pg MCHC 32.8 (31.0-37.0) g/dL RDW 17.2 H (11.5-15.5) % Plt Count 214 (150-450) k/uL MPV 6.7 Neutrophils % 73 % Lymphocytes % 19 % Monocytes % 5 % Eosinophils % 3 % Basophils % 0 % Neutrophils # 7.3 (1.3-7.7) k/uL Lymphocytes # 1.9 (1.0-4.8) k/uL Monocytes # 0.5 (0-1.0) k/uL Eosinophils # 0.3 (0-0.7) k/uL Basophils # 0.0 (0-0.2) k/uL Anisocytosis Slight Sodium 141 (137-145) mmol/L Potassium 4.5 (3.5-5.1) mmol/L Chloride 104 (98-107) mmol/L Carbon Dioxide 28 (22-30) mmol/L Anion Gap 9 mmol/L BUN 15 (7-17) mg/dL Creatinine 0.76 (0.52-1.04) mg/dL Est GFR (CKD-EPI)AfAm >90 (>60 ml/min/1.73 sqM) Est GFR (CKD-EPI)NonAf 81 (>60 ml/min/1.73 sqM) Glucose 116 H (74-99) mg/dL Plasma Lactic Acid Kashif 0.8 (0.7-2.0) mmol/L Calcium 9.1 (8.4-10.2) mg/dL Total Bilirubin 0.5 (0.2-1.3) mg/dL AST 19 (14-36) U/L ALT 16 (4-34) U/L Alkaline Phosphatase 92 (38-126) U/L C-Reactive Protein 1.1 H (<1.0) mg/dL Total Protein 7.6 (6.3-8.2) g/dL Albumin 3.9 (3.5-5.0) g/dL - Radiology Data Radiology results: report reviewed, image reviewed Disposition Clinical Impression: Right leg pain Disposition: HOME SELF-CARE Instructions (If sedation given, give patient instructions): Leg Pain (ED) Additional Instructions: Return to the emergency department with any new, worsening, or concerning symptoms. Continue to take your pain medication as prescribed. Follow up with your primary care provider in 1-2 days. Is patient prescribed a controlled substance at d/c from ED?: No Referrals: Yomi Kennedy MD [Primary Care Provider] - 1-2 days
[2023-07-24 09:27] LABS: Anisocytosis Slight; Basophils % (A) 0 %; Eosinophils # (A) 0.3 k/uL (0-0.7); Eosinophils % (A) 3 %; HCT 34.1 % (34.0-46.0); HGB 11.2 gm/dL (11.4-16.0); Lymphocytes # (A) 1.9 k/uL (1.0-4.8); Lymphocytes % (A) 19 %; MCH 27.9 pg (25.0-35.0); MCHC 32.8 g/dL (31.0-37.0); MCV 85.1 fL (80.0-100.0); Mean Platelet Volume 6.7; Monocytes # (A) 0.5 k/uL (0-1.0); Monocytes % (A) 5 %; Neutrophils # (A) 7.3 k/uL (1.3-7.7); Neutrophils % (A) 73 %; Platelet Count 214 k/uL (150-450); RBC 4.01 m/uL (3.80-5.40); RDW 17.2 % (11.5-15.5); WBC 10.1 k/uL (3.8-10.6)
--- NOTE | 2023-07-24 09:46 | XR ---
EXAMINATION TYPE: XR tibia fibula RT DATE OF EXAM: 07/24/2023 COMPARISON: NONE HISTORY: Pain TECHNIQUE: Two views are submitted. FINDINGS: Diffuse osteopenia with arthropathy of the knee. Chondrocalcinosis. Previous partial amputation. No a cute fracture. No destructive changes. Favor osteoarthritis. Trace amount of fluid in the suprapatell ar bursa. IMPRESSION: 1. No destructive changes. Previous amputation noted. 2. Diffuse osteopenia with moderate to severe osteoarthritis.
[2023-07-24 10:12] LABS: ALT 16 U/L (4-34); AST 19 U/L (14-36); African American GFR (CKD) >90 (>60 ml/min/1.73 sqM); Albumin 3.9 g/dL (3.5-5.0); Alkaline Phosphatase 92 U/L (38-126); Anion Gap 9 mmol/L; Blood Urea Nitrogen 15 mg/dL (7-17); Calcium 9.1 mg/dL (8.4-10.2); Carbon Dioxide 28 mmol/L (22-30); Chloride 104 mmol/L (98-107); Glucose 116 mg/dL (74-99); Non-African American GFR(CKD) 81 (>60 ml/min/1.73 sqM); Potassium 4.5 mmol/L (3.5-5.1); Sodium 141 mmol/L (137-145); Total Bilirubin 0.5 mg/dL (0.2-1.3); Total Protein 7.6 g/dL (6.3-8.2)
[2023-07-24 10:16] VITALS: RESP 18
[2023-07-24 10:28] LABS: C Reactive Protein 1.1 mg/dL (<1.0)
[2023-07-24 12:21] VITALS: BP 136/78; PULSE 82; TEMP 98.1
== END 2023-07-24 12:03 | disposition home or self-care (01) ==
LOC: EC 08:26
DX: M79.604 Pain in right leg (principal); J44.9 Chronic obstructive pulmonary disease, unspecified; I10 Essential (primary) hypertension; E11.9 Type 2 diabetes mellitus without complications; F32.A Depression, unspecified; F17.200 Nicotine dependence, unspecified, uncomplicated; Z79.84 Long term (current) use of oral hypoglycemic drugs; Z79.51 Long term (current) use of inhaled steroids; Z79.899 Other long term (current) drug therapy
CPT/HCPCS: 36415; 80053; 83605; 85025; 86140; 73590; 99284; 96372 ×3; J1170; J1885

== ENCOUNTER 2023-07-25 08:24 | Emergency (ER) | payer MEDICARE, OTHER ==
[2023-07-25 08:36] VITALS: RESP 18
--- NOTE | 2023-07-25 09:59 | ED ---
Extremity Problem HPI - General Chief complaint: Extremity Problem,Nontraumatic Stated complaint: right leg pain Time Seen by Provider: 07/25/23 08:43 Source: patient, RN notes reviewed Mode of arrival: ambulatory Limitations: no limitations - History of Present Illness Initial comments: 68-year-old female with a past medical history significant for [id number] amputation. The chief complaint leg pain. Patient was seen here yesterday for the same. She denies any injury or trauma. She is still complaining of pain. She feels pain with movement and at rest. She takes [place] with mild symptomatic improvement. - Related Data Home Medications Medication Instructions Recorded Confirmed Oxybutynin Chloride [oxyBUTYnin 10 mg PO DAILY 08/17/20 07/07/23 chloride ER] Fluticasone Nasal [place] [Flonase 1 spr EA NOSTRIL HS 09/17/21 07/07/23 Nasal [place]] Albuterol Inhaler [Ventolin Hfa 2 puff INHALATION RT-QID PRN 12/14/21 07/07/23 Inhaler] Levothyroxine Sodium 88 mcg PO DAILY 12/14/21 07/07/23 Atorvastatin [Lipitor] 40 mg PO DAILY 06/16/22 07/07/23 Cholecalciferol (Vitamin D3) 125 mcg PO DAILY 06/16/22 07/07/23 [Vitamin D3 (125 MCG = 5,000 IU)] Fluticasone Propion/Salmeterol 1 puff INHALATION RT-BID 06/16/22 07/07/23 [Advair 500-50 Diskus] Triamcinolone 0.1% Cream [Kenalog 1 applic TOPICAL BID PRN 06/16/22 07/07/23 0.1% Cream] Famotidine [Pepcid] 20 mg PO BID 01/19/23 07/07/23 Levocetirizine Dihydrochloride 5 mg PO BID 01/19/23 07/07/23 [Xyzal] FLUoxetine HCL 40 mg PO DAILY 03/31/23 07/07/23 Gabapentin 800 mg PO TID 03/31/23 07/07/23 Ibuprofen [Motrin] 600 mg PO Q8HR PRN 03/31/23 07/07/23 LORazepam [Ativan] 1 mg PO Q6H PRN 03/31/23 07/07/23 QUEtiapine [SEROquel] 200 mg PO HS 03/31/23 07/07/23 metFORMIN HCL 1,000 mg PO BID 03/31/23 07/07/23 Montelukast [Singulair] 10 mg PO HS 05/07/23 07/07/23 Primidone [Mysoline] 25 mg PO BID 05/07/23 07/07/23 HYDROcodone/APAP 10-325MG [[place] 1 tab PO Q6H PRN 06/17/23 07/07/23 10-325] Mupirocin 2% Oint [Bactroban 2% 1 applic TOPICAL BID 06/17/23 07/07/23 Oint] Previous Rx's Medication Instructions Recorded Aspirin 325 mg PO DAILY #30 tab 06/18/22 Acetaminophen Tab [Tylenol] 1,000 mg PO Q6HR PRN #30 tablet 06/01/23 Insulin Glargine,Hum.rec.anlog 30 units SQ BID #3 each 06/01/23 [Lantus Solostar Pen] Allergies Allergy/AdvReac Type Severity Reaction Status Date / Time No Known Allergies Allergy Verified 07/25/23 08:36 Review of Systems ROS Statement: Those systems with pertinent positive or pertinent negative responses have been documented in the HPI. ROS Other: All systems not noted in ROS Statement are negative. 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, Ileostomy January 2023, Past Anesthesia/Blood Transfusion Reactions: No Reported Reaction Past Psychological History: Depression Smoking Status: Current every day smoker Past Alcohol Use History: None Reported Past Drug Use History: None Reported - Past Family History Father Family Medical History: Coronary Artery Disease (CAD) Mother Family Medical History: Diabetes Mellitus General Exam - General Exam Comments Initial Comments: General: Alert, in no acute distress Head: atraumatic normocephalic. Eyes PERRL, EOMI intact, mucous membranes moist Respiratory: Lungs clear to auscultation bilaterally Cardiovascular: Heart rate regular rate and rhythm Abdominal: Soft without guarding or rebound Extremities: AKA, site without any erythema or edema or tenderness. Scar appears well-healed. Neuroogic: alert and oriented 3, CN II-XII intact, able to ambulate with steady gait Skin: warm dry and intact with normal color Limitations: no limitations Course Vital Signs 07/25/23 07/25/23 08:33 10:22 Temperature 97.8 F 98.5 F Pulse Rate 74 78 Respiratory 18 18 Rate Blood Pressure 161/71 155/67 O2 Sat by Pulse 98 100 Oximetry Medical Decision Making - Medical Decision Making Was pt. sent in by a medical professional or institution (, RAJINDER, VICE PRESIDENT BUSINESS DEVELOPMENT, urgent care, hospital, or custodial...) When possible be specific @ -[No] Did you speak to anyone other than the patient for history (EMS, parent, family, police, friend...)? What history was obtained from this source @ -[No] Did you review nursing and triage notes (agree or disagree)? Why? @ -[I reviewed and agree with nursing and triage notes] Were old charts reviewed (outside hosp., previous admission, EMS record, old EKG, old radiological studies, urgent care reports/EKG's, custodial records)? Report findings @ -[No old charts were reviewed] Differential Diagnosis (chest pain, altered mental status, abdominal pain women, abdominal pain men, vaginal bleeding, weakness, fever, dyspnea, syncope, heada grey, dizziness, GI bleed, back pain, seizure, CVA, palpatations, mental health, musculoskeletal)? @ -[not applicable] EKG interpreted by me (3pts min.). @ -[As above] X-rays interpreted by me (1pt min.). @ -[None done] CT interpreted by me (1pt min.). @ -[None done] U/S interpreted by me (1pt. min.). @ -[None done] What testing was considered but not performed or refused? (CT, X-rays, U/S, labs)? Why? @ -X-rays were considered however patient has been here 07/23 and 07/24 with unremarkable imaging results. What meds were considered but not given or refused? Why? @ -[None] Did you discuss the management of the patient with other professionals (professionals i.e. , RAJINDER, VICE PRESIDENT BUSINESS DEVELOPMENT, lab, RT, psych nurse, social science research assistant, cath lab radiological technologist, teacher, human resource officer, case management assistant)? Give summary @ -[No] Was smoking cessation discussed for >3mins.? @ -[No] Was critical care preformed (if so, how long)? @ -[No] Were there social determinants of health that impacted care today? How? (Homelessness, low income, unemployed, alcoholism, drug addiction, transportation, low edu. Level, literacy, decrease access to med. care, halfway, rehab)? @ -[No] Was there de-escalation of care discussed even if they declined (Discuss DNR or withdrawal of care, Hospice)? DNR status @ -[No] What co-morbidities impacted this encounter? (DM, HTN, Smoking, COPD, CAD, Cancer, CVA, ARF, Chemo, Hep., AIDS, mental health diagnosis, sleep apnea, morbid obesity)? @ -[None] Was patient admitted / discharged? Hospital course, mention meds given and route, prescriptions, significant lab abnormalities, going to OR and other pertinent info. @ -Discharged. This is a pleasant 68 year-old female presents the emergency department with leg pain. . Patient had a thorough history and physical exam performed. Physical exam is essentially unremarkable. Heart rate regular rate and rhythm, lungs are to auscultation bilaterally abdomen soft and nontender. There are no focal neuro deficits on exam. Scar that appears well- healed. No surrounding erythema or marked tenderness with palpation. I discussed results in detail with the patient verbalized understanding and all questions were addressed. Patient will be discharged home in stable condition. Return precautions discussed at length. Case discussed with GUILLERMO Turner who agrees with plan of care Undiagnosed new problem with uncertain prognosis? @ -[No] Drug Therapy requiring intensive monitoring for toxicity (Heparin, Nitro, Insulin, Cardizem)? @ -[No] Were any procedures done? @ -[No] Diagnosis/symptom? @ -Leg pain Acute, or Chronic, or Acute on Chronic? @ -Acute Uncomplicated (without systemic symptoms) or Complicated (systemic symptoms)? @ -Uncomplicated Side effects of treatment? @ -[No] Exacerbation, Progression, or Severe Exacerbation? @ -[No] Poses a threat to life or bodily function? How? (Chest pain, [place], [place], pneumonia, PE, COPD, DKA, ARF, appy, cholecystitis, CVA, Diverticulitis, Homicidal, Suicidal, threat to staff... and all critical care pts) @ -low likelihood Disposition Clinical Impression: Right above-knee amputee Disposition: HOME SELF-CARE Condition: Good Instructions (If sedation given, give patient instructions): Above the Knee Amputation (DC) Additional Instructions: Continue to take at home pain medications Please return to the nearest emergency department if symptoms worsen or persist Is patient prescribed a controlled substance at d/c from ED?: No Referrals: Yomi Kennedy MD [Primary Care Provider] - 1-2 days Time of Disposition: 09:59
[2023-07-25 10:40] VITALS: BP 155/67; PULSE 78; TEMP 98.5
== END 2023-07-25 10:23 | disposition home or self-care (01) ==
LOC: EC 08:24
DX: M79.604 Pain in right leg (principal); Z89.611 Acquired absence of right leg above knee; J44.9 Chronic obstructive pulmonary disease, unspecified; E11.9 Type 2 diabetes mellitus without complications; I10 Essential (primary) hypertension; F32.A Depression, unspecified; F17.200 Nicotine dependence, unspecified, uncomplicated; Z79.51 Long term (current) use of inhaled steroids; Z79.84 Long term (current) use of oral hypoglycemic drugs; Z79.899 Other long term (current) drug therapy
CPT/HCPCS: 99283

== ENCOUNTER 2023-08-04 14:57 | Emergency (ER) | payer MEDICARE, OTHER ==
[2023-08-04] MEDS ORDERED: MORPHINE SULFATE 4 MG/ML SYRINGE IVP STA (15:39)
--- NOTE | 2023-08-04 15:40 | ED ---
General Adult HPI - General Chief complaint: Recheck/Abnormal Lab/Rx Stated complaint: right leg pain Time Seen by Provider: 08/04/23 15:07 Source: patient, RN notes reviewed Mode of arrival: ambulatory Limitations: no limitations - History of Present Illness Initial comments: 68-year-old female presents emergency Department with chief complaint of right leg pain. She has a history of [id number] agitation and occasionally gets pain from time to time. She does report a history of infection to this area. She denies any fever, chills. She is able to ambulate with her prosthetic. She takes norco 10mg at home for pain. She last took her medication this morning. - Related Data Home Medications Medication Instructions Recorded Confirmed Oxybutynin Chloride [oxyBUTYnin 10 mg PO DAILY 08/17/20 07/07/23 chloride ER] Fluticasone Nasal [place] [Flonase 1 spr EA NOSTRIL HS 09/17/21 07/07/23 Nasal [place]] Albuterol Inhaler [Ventolin Hfa 2 puff INHALATION RT-QID PRN 12/14/21 07/07/23 Inhaler] Levothyroxine Sodium 88 mcg PO DAILY 12/14/21 07/07/23 Atorvastatin [Lipitor] 40 mg PO DAILY 06/16/22 07/07/23 Cholecalciferol (Vitamin D3) 125 mcg PO DAILY 06/16/22 07/07/23 [Vitamin D3 (125 MCG = 5,000 IU)] Fluticasone Propion/Salmeterol 1 puff INHALATION RT-BID 06/16/22 07/07/23 [Advair 500-50 Diskus] Triamcinolone 0.1% Cream [Kenalog 1 applic TOPICAL BID PRN 06/16/22 07/07/23 0.1% Cream] Famotidine [Pepcid] 20 mg PO BID 01/19/23 07/07/23 Levocetirizine Dihydrochloride 5 mg PO BID 01/19/23 07/07/23 [Xyzal] FLUoxetine HCL 40 mg PO DAILY 03/31/23 07/07/23 Gabapentin 800 mg PO TID 03/31/23 07/07/23 Ibuprofen [Motrin] 600 mg PO Q8HR PRN 03/31/23 07/07/23 LORazepam [Ativan] 1 mg PO Q6H PRN 03/31/23 07/07/23 QUEtiapine [SEROquel] 200 mg PO HS 03/31/23 07/07/23 metFORMIN HCL 1,000 mg PO BID 03/31/23 07/07/23 Montelukast [Singulair] 10 mg PO HS 05/07/23 07/07/23 Primidone [Mysoline] 25 mg PO BID 05/07/23 07/07/23 HYDROcodone/APAP 10-325MG [[place] 1 tab PO Q6H PRN 06/17/23 07/07/23 10-325] Mupirocin 2% Oint [Bactroban 2% 1 applic TOPICAL BID 06/17/23 07/07/23 Oint] Previous Rx's Medication Instructions Recorded Aspirin 325 mg PO DAILY #30 tab 06/18/22 Acetaminophen Tab [Tylenol] 1,000 mg PO Q6HR PRN #30 tablet 06/01/23 Insulin Glargine,Hum.rec.anlog 30 units SQ BID #3 each 06/01/23 [Lantus Solostar Pen] Sulfamethox-Tmp 800-160Mg [Bactrim 1 each PO Q12HR #14 tab 08/04/23 Ds] Allergies Allergy/AdvReac Type Severity Reaction Status Date / Time No Known Allergies Allergy Verified 08/04/23 15:03 Review of Systems ROS Statement: Those systems with pertinent positive or pertinent negative responses have been documented in the HPI. ROS Other: All systems not noted in ROS Statement are negative. 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 Absent: scleral icterus, conjunctival injection, periorbital swelling ENT exam: Present: normal exam, mucous membranes moist Neck exam: Present: normal inspection. Absent: tenderness, meningismus, lymphad enopathy Respiratory exam: Present: normal lung sounds bilaterally. Absent: respiratory distress, wheezes, rales, rhonchi, stridor Cardiovascular Exam: Present: regular rate, normal rhythm, normal heart sounds. Absent: systolic murmur, diastolic murmur, rubs, gallop, clicks Extremities exam: Present: other (below the knee amputation, full range of motion at the knee, mild erythema, no induration) Back exam: Present: normal inspection Neurological exam: Present: alert, oriented X3 Psychiatric exam: Present: normal affect, normal mood Skin exam: Present: warm, dry, intact, erythema (Mild erythema to the right distal leg) Course Vital Signs 08/04/23 08/04/23 08/04/23 15:01 16:32 17:56 Temperature 97.8 F 98.2 F Pulse Rate 80 85 79 Respiratory 17 18 18 Rate Blood Pressure 178/70 166/82 174/77 O2 Sat by Pulse 100 95 100 Oximetry Medical Decision Making - Medical Decision Making Was pt. sent in by a medical professional or institution (, PA, RESEARCH GROUP DIRECTOR, urgent care, hospital, or custodial...) When possible be specific @ -No Did you speak to anyone other than the patient for history (EMS, parent, family, police, friend...)? What history was obtained from this source @ -No Did you review nursing and triage notes (agree or disagree)? Why? @ -I reviewed and agree with nursing and triage notes Were old charts reviewed (outside hosp., previous admission, EMS record, old EKG, old radiological studies, urgent care reports/EKG's, custodial records)? Report findings @ -No old charts were reviewed Differential Diagnosis (chest pain, altered mental status, abdominal pain women, abdominal pain men, vaginal bleeding, weakness, fever, dyspnea, syncope, headache, dizziness, GI bleed, back pain, seizure, CVA, palpatations, mental health, musculoskeletal)? @ -nDifferential Musculoskeletal Muscular strain, contusion, ligament sprain, fracture, arthritis, septic arthritis, bursitis, cellulitis, muscle spasm, nerve compression, DVT, arterial occlusion, herpes zoster, electrolyte abnormality, tumor.... This is not meant to be in all inclusive list EKG interpreted by me (3pts min.). @ -None X-rays interpreted by me (1pt min.). @ -X-ray of the right tib-fib shows arthritis of the knee, amputation of the mid tib-fib CT interpreted by me (1pt min.). @ -None done U/S interpreted by me (1pt. min.). @ -None done What testing was considered but not performed or refused? (CT, X-rays, U/S, labs)? Why? @ -None What meds were considered but not given or refused? Why? @ -None Did you discuss the management of the patient with other professionals (candace romero i.e. , PA, RESEARCH GROUP DIRECTOR, lab, RT, psych nurse, social work supervisor, keg varnisher, teacher, founder and chief executive officer, case management director)? Give summary @ -No Was smoking cessation discussed for >3mins.? @ -No Was critical care preformed (if so, how long)? @ -No Were there social determinants of health that impacted care today? How? (Homelessness, low income, unemployed, alcoholism, drug addiction, transportati on, low edu. Level, literacy, decrease access to med. care, care home, rehab)? @ -No Was there de-escalation of care discussed even if they declined (Discuss DNR or withdrawal of care, Hospice)? DNR status @ -No What co-morbidities impacted this encounter? (DM, HTN, Smoking, COPD, CAD, Cancer, CVA, ARF, Chemo, Hep., AIDS, mental health diagnosis, sleep apnea, morbid obesity)? @ -None Was patient admitted / discharged? Hospital course, mention meds given and route, prescriptions, significant lab abnormalities, going to OR and other pertinent info. @ -Discharged. Patient presented to the emergency department with chief complaint of pain to her right leg at the area of amputation; laboratory studies obtained, WBC 13.0; x-ray tib-fib shows osteoarthritis of the right knee, no acute abnormality. There is slight overlying erythema. Patient will be started on antibiotics for cellulitis. Patient understanding and agreeable with plan. Patient stable at time of discharge. Case discussed with Dr. Bruno Undiagnosed new problem with uncertain prognosis? @ -No Drug Therapy requiring intensive monitoring for toxicity (Heparin, Nitro, Insulin, Cardizem)? @ -No Were any procedures done? @ -No Diagnosis/symptom? @ -leg pain, cellulitis Acute, or Chronic, or Acute on Chronic? @ -acute Uncomplicated (without systemic symptoms) or Complicated (systemic symptoms)? @ -uncomplicated Side effects of treatment? @ -No Exacerbation, Progression, or Severe Exacerbation? @ -No Poses a threat to life or bodily function? How? (Chest pain, [place], [place], pneumonia, PE, COPD, DKA, ARF, appy, cholecystitis, CVA, Diverticulitis, Homicidal, Suicidal, threat to staff... and all critical care pts) @ -No - Lab Data Result diagrams: 08/04/23 16:16 08/04/23 16:16 Lab Results 08/04/23 08/04/23 08/04/23 Range/Units 16:16 16:16 16:16 WBC 13.0 H (3.8-10.6) k/uL RBC 4.44 (3.80-5.40) m/uL Hgb 12.4 (11.4-16.0) gm/dL Hct 37.6 (34.0-46.0) % MCV 84.6 (80.0-100.0) fL MCH 28.0 (25.0-35.0) pg MCHC 33.1 (31.0-37.0) g/dL RDW 16.7 H (11.5-15.5) % Plt Count 217 (150-450) k/uL MPV 6.5 Neutrophils % 79 % Lymphocytes % 15 % Monocytes % 3 % Eosinophils % 1 % Basophils % 1 % Neutrophils # 10.2 H (1.3-7.7) k/uL Lymphocytes # 2.0 (1.0-4.8) k/uL Monocytes # 0.5 (0-1.0) k/uL Eosinophils # 0.2 (0-0.7) k/uL Basophils # 0.1 (0-0.2) k/uL Anisocytosis Slight Sodium 138 (137-145) mmol/L Potassium 4.7 (3.5-5.1) mmol/L Chloride 103 (98-107) mmol/L Carbon Dioxide 24 (22-30) mmol/L Anion Gap 11 mmol/L BUN 18 H (7-17) mg/dL Creatinine 0.74 (0.52-1.04) mg/dL Est GFR (CKD-EPI)AfAm >90 (>60 ml/min/1.73 sqM) Est GFR (CKD-EPI)NonAf 84 (>60 ml/min/1.73 sqM) Glucose 121 H (74-99) mg/dL Plasma Lactic Acid [place] 1.1 (0.7-2.0) mmol/L Calcium 9.9 (8.4-10.2) mg/dL Total Bilirubin 0.5 (0.2-1.3) mg/dL AST 85 H (14-36) U/L ALT 46 H (4-34) U/L Alkaline Phosphatase 88 (38-126) U/L Total Protein 8.7 H (6.3-8.2) g/dL Albumin 4.6 (3.5-5.0) g/dL Disposition Clinical Impression: Cellulitis, leg Disposition: HOME SELF-CARE Condition: Stable Instructions (If sedation given, give patient instructions): Leg Pain (ED) Additional Instructions: Please follow up with your primary care provider. Return to the emergency department for new or worsening symptoms. Prescriptions: Sulfamethox-Tmp 800-160Mg [Bactrim Ds] 1 each PO Q12HR #14 tab Is patient prescribed a controlled substance at d/c from ED?: No Referrals: Yomi Kennedy MD [Primary Care Provider] - 1-2 days
[2023-08-04 16:45] LABS: Anisocytosis Slight; Basophils # (A) 0.1 k/uL (0-0.2); Basophils % (A) 1 %; Eosinophils # (A) 0.2 k/uL (0-0.7); Eosinophils % (A) 1 %; HCT 37.6 % (34.0-46.0); HGB 12.4 gm/dL (11.4-16.0); Lymphocytes % (A) 15 %; MCHC 33.1 g/dL (31.0-37.0); MCV 84.6 fL (80.0-100.0); Mean Platelet Volume 6.5; Monocytes # (A) 0.5 k/uL (0-1.0); Monocytes % (A) 3 %; Neutrophils # (A) 10.2 k/uL (1.3-7.7); Neutrophils % (A) 79 %; Platelet Count 217 k/uL (150-450); RBC 4.44 m/uL (3.80-5.40); RDW 16.7 % (11.5-15.5)
[2023-08-04 16:55] VITALS: RESP 18
[2023-08-04 17:00] LABS: ALT 46 U/L (4-34); AST 85 U/L (14-36); African American GFR (CKD) >90 (>60 ml/min/1.73 sqM); Albumin 4.6 g/dL (3.5-5.0); Alkaline Phosphatase 88 U/L (38-126); Anion Gap 11 mmol/L; Blood Urea Nitrogen 18 mg/dL (7-17); Calcium 9.9 mg/dL (8.4-10.2); Carbon Dioxide 24 mmol/L (22-30); Chloride 103 mmol/L (98-107); Glucose 121 mg/dL (74-99); Non-African American GFR(CKD) 84 (>60 ml/min/1.73 sqM); Potassium 4.7 mmol/L (3.5-5.1); Sodium 138 mmol/L (137-145); Total Bilirubin 0.5 mg/dL (0.2-1.3); Total Protein 8.7 g/dL (6.3-8.2)
--- NOTE | 2023-08-04 17:19 | XR ---
Right tibia and fibula HISTORY: Pain COMPARISON: 07/24/2023. TECHNIQUE: 2 views the right tibia and fibula were obtained FINDINGS: There is amputation at the level of the mid right tibia and fibula. There is moderate osteopenia but no destructive bony changes and no fracture. As noted previously there is chondrocalcinosis and moderate osteoarthritic change of the medial later al compartments of the knee greater in the medial compartment. There are diffuse arteriovascular calc ifications. IMPRESSION: 1. Amputation as described above. 2. No focal osseous abnormality or fracture. 3. Moderate osteopenia. 4. Degenerative change since the previous 5. Diffuse arterial vascular calcifications.
[2023-08-04 18:06] VITALS: BP 174/77; PULSE 79; TEMP 98.2
== END 2023-08-04 18:00 | disposition home or self-care (01) ==
LOC: EC 14:57
DX: L03.115 Cellulitis of right lower limb (principal); M17.11 Unilateral primary osteoarthritis, right knee; E11.9 Type 2 diabetes mellitus without complications; I10 Essential (primary) hypertension; J44.9 Chronic obstructive pulmonary disease, unspecified; F17.200 Nicotine dependence, unspecified, uncomplicated; F32.A Depression, unspecified; Z79.84 Long term (current) use of oral hypoglycemic drugs; Z79.51 Long term (current) use of inhaled steroids; Z79.899 Other long term (current) drug therapy
CPT/HCPCS: 36415; 80053; 83605; 85025; 73590; 99284; 96374; J2270

== ENCOUNTER 2023-08-11 18:28 | Emergency (ER) | payer MEDICARE, OTHER ==
[2023-08-11 19:58] VITALS: RESP 18; TEMP 97.5
--- NOTE | 2023-08-11 20:38 | ED ---
General Adult HPI - General Chief complaint: Recheck/Abnormal Lab/Rx Stated complaint: Stoma leaking/bloody Time Seen by Provider: 08/11/23 19:58 Source: patient Mode of arrival: ambulatory Limitations: no limitations - History of Present Illness Initial comments: 68-year-old female with a past medical history significant for ileostomy presents to the ED with a chief complaint of stoma problem. Patient reports that her bag has been leaking over the past few days shows took this off. Also notes pain of her stoma which she has never had before. Denies fever or chills. Patient states that it is still productive as normal. No other complaints. - Related Data Home Medications Medication Instructions Recorded Confirmed Oxybutynin Chloride [oxyBUTYnin 10 mg PO DAILY 08/17/20 07/07/23 chloride ER] Fluticasone Nasal [place] [Flonase 1 spr EA NOSTRIL HS 09/17/21 07/07/23 Nasal [place]] Albuterol Inhaler [Ventolin Hfa 2 puff INHALATION RT-QID PRN 12/14/21 07/07/23 Inhaler] Levothyroxine Sodium 88 mcg PO DAILY 12/14/21 07/07/23 Atorvastatin [Lipitor] 40 mg PO DAILY 06/16/22 07/07/23 Cholecalciferol (Vitamin D3) 125 mcg PO DAILY 06/16/22 07/07/23 [Vitamin D3 (125 MCG = 5,000 IU)] Fluticasone Propion/Salmeterol 1 puff INHALATION RT-BID 06/16/22 07/07/23 [Advair 500-50 Diskus] Triamcinolone 0.1% Cream [Kenalog 1 applic TOPICAL BID PRN 06/16/22 07/07/23 0.1% Cream] Famotidine [Pepcid] 20 mg PO BID 01/19/23 07/07/23 Levocetirizine Dihydrochloride 5 mg PO BID 01/19/23 07/07/23 [Xyzal] FLUoxetine HCL 40 mg PO DAILY 03/31/23 07/07/23 Gabapentin 800 mg PO TID 03/31/23 07/07/23 Ibuprofen [Motrin] 600 mg PO Q8HR PRN 03/31/23 07/07/23 LORazepam [Ativan] 1 mg PO Q6H PRN 03/31/23 07/07/23 QUEtiapine [SEROquel] 200 mg PO HS 03/31/23 07/07/23 metFORMIN HCL 1,000 mg PO BID 03/31/23 07/07/23 Montelukast [Singulair] 10 mg PO HS 05/07/23 07/07/23 Primidone [Mysoline] 25 mg PO BID 05/07/23 07/07/23 HYDROcodone/APAP 10-325MG [[place] 1 tab PO Q6H PRN 06/17/23 07/07/23 10-325] Mupirocin 2% Oint [Bactroban 2% 1 applic TOPICAL BID 06/17/23 07/07/23 Oint] Previous Rx's Medication Instructions Recorded Aspirin 325 mg PO DAILY #30 tab 06/18/22 Acetaminophen Tab [Tylenol] 1,000 mg PO Q6HR PRN #30 tablet 06/01/23 Insulin Glargine,Hum.rec.anlog 30 units SQ BID #3 each 06/01/23 [Lantus Solostar Pen] Sulfamethox-Tmp 800-160Mg [Bactrim 1 each PO Q12HR #14 tab 08/04/23 Ds] Levofloxacin [Levaquin] 750 mg PO DAILY 10 Days #1 tab 08/11/23 metroNIDAZOLE 500 mg PO Q8H #30 tablet 08/11/23 Allergies Allergy/AdvReac Type Severity Reaction Status Date / Time No Known Allergies Allergy Verified 08/11/23 19:45 Review of Systems ROS Statement: Those systems with pertinent positive or pertinent negative responses have been documented in the HPI. ROS Other: All systems not noted in ROS Statement are negative. 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, Ileostomy January 2023, Past Anesthesia/Blood Transfusion Reactions: No Reported Reaction Past Psychological History: Depression Smoking Status: Current every day smoker Past Alcohol Use History: None Reported Past Drug Use History: None Reported - Past Family History Father Family Medical History: Coronary Artery Disease (CAD) Mother Family Medical History: Diabetes Mellitus General Exam Limitations: no limitations General appearance: alert, in no apparent distress Neck exam: Present: normal inspection Respiratory exam: Present: normal lung sounds bilaterally Cardiovascular Exam: Present: regular rate, normal rhythm GI/Abdominal exam: Present: soft (Lis is pink, productive, patent. However, the area surrounding the stoma does appear to have some warmth, erythema, edema, tenderness palpation with a small area showing ulceration with some purulent drainage.) Neurological exam: Present: alert, oriented X3 Skin exam: Present: warm, dry Course Vital Signs 08/11/23 19:45 Temperature 97.5 F L Pulse Rate 96 Respiratory 18 Rate Blood Pressure 147/71 O2 Sat by Pulse 98 Oximetry Medical Decision Making - Medical Decision Making Was pt. sent in by a medical professional or institution (RAJINDER Burkett, HADOOP CONSULTANT, urgent care, hospital, or custodial...) When possible be specific @ -No Did you speak to anyone other than the patient for history (EMS, parent, family, police, friend...)? What history was obtained from this source @ -No Did you review nursing and triage notes (agree or disagree)? Why? @ -I reviewed and agree with nursing and triage notes Were old charts reviewed (outside hosp., previous admission, EMS record, old EKG, old radiological studies, urgent care reports/EKG's, custodial records)? Report findings @ -No old charts were reviewed Differential Diagnosis (chest pain, altered mental status, abdominal pain women, abdominal pain men, vaginal bleeding, weakness, fever, dyspnea, syncope, headache, dizziness, GI bleed, back pain, seizure, CVA, palpatations, mental health, musculoskeletal)? @ -MRSA, cellulitis. This is not meant to be an all-inclusive list. EKG interpreted by me (3pts min.). @ -None X-rays interpreted by me (1pt min.). @ -None done CT interpreted by me (1pt min.). @ -None done U/S interpreted by me (1pt. min.). @ -None done What testing was considered but not performed or refused? (CT, X-rays, U/S, labs)? Why? @ -None What meds were considered but not given or refused? Why? @ -None Did you discuss the management of the patient with other professionals (professionals i.e. RAJINDER Burkett, HADOOP CONSULTANT, lab, RT, psych nurse, vp digital marketing social media and crm, folding machine operator, teacher, artillery officer, case worker)? Give summary @ -No Was smoking cessation discussed for >3mins.? @ -No Was critical care preformed (if so, how long)? @ -No Were there social determinants of health that impacted care today? How? (Homelessness, low income, unemployed, alcoholism, drug addiction, t ransportation, low edu. Level, literacy, decrease access to med. care, longterm, rehab)? @ -No Was there de-escalation of care discussed even if they declined (Discuss DNR or withdrawal of care, Hospice)? DNR status @ -No What co-morbidities impacted this encounter? (DM, HTN, Smoking, COPD, CAD, Cancer, CVA, ARF, Chemo, Hep., AIDS, mental health diagnosis, sleep apnea, morbid obesity)? @ -None Was patient admitted / discharged? Hospital course, mention meds given and route, prescriptions, significant lab abnormalities, going to OR and other pertinent info. @ -Discharge 68 -year-old female presenting to the ED with a chief complaint of ostomy problem. Patient reports over the past few days her ostomy has been leaking therefore took it off. This was replaced in the ED. Patient also notes pain over stoma for the past few days. Patient does have findings consistent with surrounding cellulitis. He shouldn't provided prescription for Levaquin and Flagyl. Cultures of the draining ulcer were obtained. Patient discharged home in stable condition. Discussed strict return precautions with patient who verbalizes agreement. Undiagnosed new problem with uncertain prognosis? @ -No Drug Therapy requiring intensive monitoring for toxicity (Heparin, Nitro, Insulin, Cardizem)? @ -No Were any procedures done? @ -No Diagnosis/symptom? @ -Ostomy problem, abdominal cellulitis Acute, or Chronic, or Acute on Chronic? @ -Acute Uncomplicated (without systemic symptoms) or Complicated (systemic symptoms)? @ -Uncomplicated Side effects of treatment? @ -No Exacerbation, Progression, or Severe Exacerbation? @ -No Poses a threat to life or bodily function? How? (Chest pain, [place], [place], pneumonia, PE, COPD, DKA, ARF, appy, cholecystitis, CVA, Diverticulitis, Homicidal, Suicidal, threat to staff... and all critical care pts) @ -No Disposition Clinical Impression: Complication of ostomy, Abdominal wall cellulitis Disposition: HOME SELF-CARE Condition: Good Additional Instructions: Please return to the Emergency Department if symptoms worsen or any other concerns. Follow up with your PCP within the week. Please monitor for signs of worsening infection. Prescriptions: Levofloxacin [Levaquin] 750 mg PO DAILY 10 Days #1 tab metroNIDAZOLE 500 mg PO Q8H #30 tablet Is patient prescribed a controlled substance at d/c from ED?: No Referrals: Yomi Kennedy MD [Primary Care Provider] - 1-2 days Time of Disposition: 20:47
[2023-08-11] MEDS ORDERED: LEVOFLOXACIN 750 MG TAB PO STA (20:41)
[2023-08-11] MEDS ORDERED: metroNIDAZOLE 500 MG TAB PO STA (20:42)
[2023-08-11 21:41] VITALS: BP 133/69; PULSE 95
== END 2023-08-11 21:37 | disposition home or self-care (01) ==
LOC: EC 18:28
DX: K94.00 Colostomy complication, unspecified (principal); L03.311 Cellulitis of abdominal wall; B96.89 Other specified bacterial agents as the cause of diseases classified elsewhere; I10 Essential (primary) hypertension; E11.9 Type 2 diabetes mellitus without complications; J44.9 Chronic obstructive pulmonary disease, unspecified; F32.A Depression, unspecified; F17.200 Nicotine dependence, unspecified, uncomplicated; Z79.84 Long term (current) use of oral hypoglycemic drugs; Z79.51 Long term (current) use of inhaled steroids; Z79.899 Other long term (current) drug therapy
CPT/HCPCS: 87040; 87070; 87075; 87205; 99282

== ENCOUNTER 2023-08-16 16:40 | Emergency (ER) | payer MEDICARE, OTHER ==
[2023-08-16] MEDS ORDERED: LIDOCAINE 5% PATCH TOPICAL ONE (18:22)
[2023-08-16] MEDS ORDERED: KETOROLAC 15 MG/ML 1 ML VIAL IM STA (18:22)
[2023-08-16 19:01] LABS: Anisocytosis Slight; Basophils # (A) 0.1 k/uL (0-0.2); Basophils % (A) 0 %; Eosinophils # (A) 0.2 k/uL (0-0.7); Eosinophils % (A) 2 %; HCT 35.8 % (34.0-46.0); Lymphocytes # (A) 2.2 k/uL (1.0-4.8); Lymphocytes % (A) 18 %; MCH 28.7 pg (25.0-35.0); MCHC 33.7 g/dL (31.0-37.0); MCV 85.2 fL (80.0-100.0); Mean Platelet Volume 6.8; Monocytes # (A) 0.4 k/uL (0-1.0); Monocytes % (A) 3 %; Neutrophils # (A) 9.5 k/uL (1.3-7.7); Neutrophils % (A) 76 %; Platelet Count 229 k/uL (150-450); RDW 16.4 % (11.5-15.5); WBC 12.6 k/uL (3.8-10.6)
[2023-08-16] MEDS ORDERED: KETOROLAC 15 MG/ML 1 ML VIAL IVP STA (19:04)
--- NOTE | 2023-08-16 19:06 | ED ---
General Adult HPI - General Chief complaint: Back Pain/Injury Stated complaint: middle back pain Time Seen by Provider: 08/16/23 17:38 Source: patient, RN notes reviewed Mode of arrival: wheelchair Limitations: no limitations - History of Present Illness Initial comments: 68-year-old female presents to the emergency department with chief complaint of back pain 2 days. She states it is worse with movement. She denies any recent injury. Denies fever, chills, nausea, vomiting, chest pain, shortness of breath. Denies urinary retention, saddle anesthesia, numbness, tingling. - Related Data Home Medications Medication Instructions Recorded Confirmed Oxybutynin Chloride [oxyBUTYnin 10 mg PO DAILY 08/17/20 07/07/23 chloride ER] Fluticasone Nasal [place] [Flonase 1 spr EA NOSTRIL HS 09/17/21 07/07/23 Nasal [place]] Albuterol Inhaler [Ventolin Hfa 2 puff INHALATION RT-QID PRN 12/14/21 07/07/23 Inhaler] Levothyroxine Sodium 88 mcg PO DAILY 12/14/21 07/07/23 Atorvastatin [Lipitor] 40 mg PO DAILY 06/16/22 07/07/23 Cholecalciferol (Vitamin D3) 125 mcg PO DAILY 06/16/22 07/07/23 [Vitamin D3 (125 MCG = 5,000 IU)] Fluticasone Propion/Salmeterol 1 puff INHALATION RT-BID 06/16/22 07/07/23 [Advair 500-50 Diskus] Triamcinolone 0.1% Cream [Kenalog 1 applic TOPICAL BID PRN 06/16/22 07/07/23 0.1% Cream] Famotidine [Pepcid] 20 mg PO BID 01/19/23 07/07/23 Levocetirizine Dihydrochloride 5 mg PO BID 01/19/23 07/07/23 [Xyzal] FLUoxetine HCL 40 mg PO DAILY 03/31/23 07/07/23 Gabapentin 800 mg PO TID 03/31/23 07/07/23 Ibuprofen [Motrin] 600 mg PO Q8HR PRN 03/31/23 07/07/23 LORazepam [Ativan] 1 mg PO Q6H PRN 03/31/23 07/07/23 QUEtiapine [SEROquel] 200 mg PO HS 03/31/23 07/07/23 metFORMIN HCL 1,000 mg PO BID 03/31/23 07/07/23 Montelukast [Singulair] 10 mg PO HS 05/07/23 07/07/23 Primidone [Mysoline] 25 mg PO BID 05/07/23 07/07/23 HYDROcodone/APAP 10-325MG [[place] 1 tab PO Q6H PRN 06/17/23 07/07/23 10-325] Mupirocin 2% Oint [Bactroban 2% 1 applic TOPICAL BID 06/17/23 07/07/23 Oint] Previous Rx's Medication Instructions Recorded Aspirin 325 mg PO DAILY #30 tab 06/18/22 Acetaminophen Tab [Tylenol] 1,000 mg PO Q6HR PRN #30 tablet 06/01/23 Insulin Glargine,Hum.rec.anlog 30 units SQ BID #3 each 06/01/23 [Lantus Solostar Pen] Sulfamethox-Tmp 800-160Mg [Bactrim 1 each PO Q12HR #14 tab 08/04/23 Ds] Levofloxacin [Levaquin] 750 mg PO DAILY 10 Days #1 tab 08/11/23 metroNIDAZOLE 500 mg PO Q8H #30 tablet 08/11/23 Allergies Allergy/AdvReac Type Severity Reaction Status Date / Time No Known Allergies Allergy Verified 08/16/23 17:11 Review of Systems ROS Statement: Those systems with pertinent positive or pertinent negative responses have been documented in the HPI. ROS Other: All systems not noted in ROS Statement are negative. 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 Absent: scleral icterus, conjunctival injection, periorbital swelling ENT exam: Present: normal exam, mucous membranes moist Neck exam: Present: normal inspection. Absent: tenderness, meningismus, lymphadenopathy Respiratory exam: Present: normal lung sounds bilaterally. Absent: respiratory distress, wheezes, rales, rhonchi, stridor Cardiovascular Exam: Present: regular rate, normal rhythm, normal heart sounds. Absent: systolic murmur, diastolic murmur, rubs, gallop, clicks Extremities exam: Present: normal inspection, full ROM, normal capillary refill. Absent: tenderness, pedal edema, joint swelling, calf tenderness Back exam: Present: normal inspection, full ROM. Absent: tenderness, CVA tenderness (R), CVA tenderness (L) Neurological exam: Present: alert, oriented X3 Psychiatric exam: Present: normal affect, normal mood Skin exam: Present: warm, dry, intact, normal color. Absent: rash Course Vital Signs 08/16/23 08/16/23 08/16/23 17:09 18:57 20:57 Temperature 97.7 F 98.1 F 97.9 F Pulse Rate 95 90 86 Respiratory 16 18 16 Rate Blood Pressure 139/80 134/87 148/72 O2 Sat by Pulse 100 100 97 Oximetry Medical Decision Making - Medical Decision Making Was pt. sent in by a medical professional or institution (, PA, SAND CAR WORKER, urgent care, hospital, or halfway...) When possible be specific @ -No Did you speak to anyone other than the patient for history (EMS, parent, family, police, friend...)? What history was obtained from this source @ -No Did you review nursing and triage notes (agree or disagree)? Why? @ -I reviewed and agree with nursing and triage notes Were old charts reviewed (outside hosp., previous admission, EMS record, old EKG, old radiological studies, urgent care reports/EKG's, halfway records)? Report findings @ -No old charts were reviewed Differential Diagnosis (chest pain, altered mental status, abdominal pain women, abdominal pain men, vaginal bleeding, weakness, fever, dyspnea, syncope, headache, dizziness, GI bleed, back pain, seizure, CVA, palpatations, mental health, musculoskeletal)? @ -Differential Back Pain: Strain, zoster, cauda equina syndrome, epidural abscess, vertebral osteomyelitis, discitis, fracture, subluxation, disc herniation, DJD, spinal stenosis, dissection, AAA, pancreatitis, peptic ulcer disease, pyelonephritis, kidney stone, this is not meant to be an all-inclusive list. EKG interpreted by me (3pts min.). @ -EKG at 2032 shows sinus rhythm rate 87, NH 162, QRS 81, QTQTc [id number] X-rays interpreted by me (1pt min.). @ -X-ray thoracic spine shows no acute process Chest x-ray shows no evidence for acute process CT interpreted by me (1pt min.). @ -None done U/S interpreted by me (1pt. min.). @ -None done What testing was considered but not performed or refused? (CT, X-rays, U/S, labs)? Why? @ -None What meds were considered but not given or refused? Why? @ -None Did you discuss the management of the patient with other professionals (professionals i.e. , PA, SAND CAR WORKER, lab, RT, psych nurse, director social, merchandise buyer, teacher, rating officer, immigration case worker)? Give summary @ -No Was smoking cessation discussed for >3mins.? @ -No Was critical care preformed (if so, how long)? @ -No Were there social determinants of health that impacted care today? How? (Homelessness, low income, unemployed, alcoholism, drug addiction, transportation, low edu. Level, literacy, decrease access to med. care, [facility], rehab)? @ -No Was there de-escalation of care discussed even if they declined (Discuss DNR or withdrawal of care, Hospice)? DNR status @ -No What co-morbidities impacted this encounter? (DM, HTN, Smoking, COPD, CAD, Cancer, CVA, ARF, Chemo, Hep., AIDS, mental health diagnosis, sleep apnea, morbid obesity)? @ -None Was patient admitted / discharged? Hospital course, mention meds given and route, prescriptions, significant lab abnormalities, going to OR and other pertinent info. @ -Discharged. Patient presented with chief complaint of back pain. Laboratory studies obtained which are essentially unremarkable. Negative troponin. Chest x-ray and thoracic spine x-ray showed no acute process. Patient given Toradol lidocaine patches which improved her symptoms slightly. Patient then given morphine which helped. Patient will be discharged home. Patient stated agreeable with discharge plan. Patient stable at discharge. Case discussed with Dr. Way Undiagnosed new problem with uncertain prognosis? @ -No Drug Therapy requiring intensive monitoring for toxicity (Heparin, Nitro, Insulin, Cardizem)? @ -No Were any procedures done? @ -No Diagnosis/symptom? @ -back pain Acute, or Chronic, or Acute on Chronic? @ -acute Uncomplicated (without systemic symptoms) or Complicated (systemic symptoms)? @ -uncomplicated Side effects of treatment? @ -No Exacerbation, Progression, or Severe Exacerbation? @ -No Poses a threat to life or bodily function? How? (Chest pain, [place], [place], pneumonia, PE, COPD, DKA, ARF, appy, cholecystitis, CVA, Diverticulitis, Homicidal, Suicidal, threat to staff... and all critical care pts) @ -No - Lab Data Result diagrams: 08/16/23 18:43 08/16/23 18:43 Lab Results 08/16/23 08/16/23 08/16/23 Range/Units 18:43 18:43 18:43 WBC 12.6 H (3.8-10.6) k/uL RBC 4.20 (3.80-5.40) m/uL Hgb 12.0 (11.4-16.0) gm/dL Hct 35.8 (34.0-46.0) % MCV 85.2 (80.0-100.0) fL MCH 28.7 (25.0-35.0) pg MCHC 33.7 (31.0-37.0) g/dL RDW 16.4 H (11.5-15.5) % Plt Count 229 (150-450) k/uL MPV 6.8 Neutrophils % 76 % Lymphocytes % 18 % Monocytes % 3 % Eosinophils % 2 % Basophils % 0 % Neutrophils # 9.5 H (1.3-7.7) k/uL Lymphocytes # 2.2 (1.0-4.8) k/uL Monocytes # 0.4 (0-1.0) k/uL Eosinophils # 0.2 (0-0.7) k/uL Basophils # 0.1 (0-0.2) k/uL Anisocytosis Slight PT 10.8 (10.0-12.5) sec INR 1.0 (<1.2) APTT 26.1 (22.0-30.0) sec Sodium 138 (137-145) mmol/L Potassium 4.7 (3.5-5.1) mmol/L Chloride 104 (98-107) mmol/L Carbon Dioxide 19 L (22-30) mmol/L Anion Gap 15 mmol/L BUN 27 H (7-17) mg/dL Creatinine 0.94 (0.52-1.04) mg/dL Est GFR (CKD-EPI)AfAm 72 (>60 ml/min/1.73 sqM) Est GFR (CKD-EPI)NonAf 63 (>60 ml/min/1.73 sqM) Glucose 137 H (74-99) mg/dL Calcium 9.1 (8.4-10.2) mg/dL Total Bilirubin 0.3 (0.2-1.3) mg/dL AST 24 (14-36) U/L ALT 17 (4-34) U/L Alkaline Phosphatase 93 (38-126) U/L Troponin I (0.000-0.034) ng/mL Total Protein 8.0 (6.3-8.2) g/dL Albumin 4.3 (3.5-5.0) g/dL 08/16/23 Range/Units 18:43 WBC (3.8-10.6) k/uL RBC (3.80-5.40) m/uL Hgb (11.4-16.0) gm/dL Hct (34.0-46.0) % MCV (80.0-100.0) fL MCH (25.0-35.0) pg MCHC (31.0-37.0) g/dL RDW (11.5-15.5) % Plt Count (150-450) k/uL MPV Neutrophils % % Lymphocytes % % Monocytes % % Eosinophils % % Basophils % % Neutrophils # (1.3-7.7) k/uL Lymphocytes # (1.0-4.8) k/uL Monocytes # (0-1.0) k/uL Eosinophils # (0-0.7) k/uL Basophils # (0-0.2) k/uL Anisocytosis PT (10.0-12.5) sec INR (<1.2) APTT (22.0-30.0) sec Sodium (137-145) mmol/L Potassium (3.5-5.1) mmol/L Chloride (98-107) mmol/L Carbon Dioxide (22-30) mmol/L Anion Gap mmol/L BUN (7-17) mg/dL Creatinine (0.52-1.04) mg/dL Est GFR (CKD-EPI)AfAm (>60 ml/min/1.73 sqM) Est GFR (CKD-EPI)NonAf (>60 ml/min/1.73 sqM) Glucose (74-99) mg/dL Calcium (8.4-10.2) mg/dL Total Bilirubin (0.2-1.3) mg/dL AST (14-36) U/L ALT (4-34) U/L Alkaline Phosphatase (38-126) U/L Troponin I <0.012 (0.000-0.034) ng/mL Total Protein (6.3-8.2) g/dL Albumin (3.5-5.0) g/dL Disposition Clinical Impression: Mechanical back pain Disposition: HOME SELF-CARE Condition: Stable Instructions (If sedation given, give patient instructions): Back Pain (ED) Additional Instructions: Please follow up with your primary care provider. Return to the emergency department for new or worsening symptoms. Is patient prescribed a controlled substance at d/c from ED?: No Referrals: Yomi Kennedy MD [Primary Care Provider] - 1-2 days
[2023-08-16 19:12] LABS: Partial Thromboplastin Time 26.1 sec (22.0-30.0); Prothrombin Time 10.8 sec (10.0-12.5)
[2023-08-16 19:28] LABS: ALT 17 U/L (4-34); AST 24 U/L (14-36); African American GFR (CKD) 72 (>60 ml/min/1.73 sqM); Albumin 4.3 g/dL (3.5-5.0); Alkaline Phosphatase 93 U/L (38-126); Anion Gap 15 mmol/L; Blood Urea Nitrogen 27 mg/dL (7-17); Calcium 9.1 mg/dL (8.4-10.2); Carbon Dioxide 19 mmol/L (22-30); Chloride 104 mmol/L (98-107); Glucose 137 mg/dL (74-99); Non-African American GFR(CKD) 63 (>60 ml/min/1.73 sqM); Potassium 4.7 mmol/L (3.5-5.1); Sodium 138 mmol/L (137-145); Total Bilirubin 0.3 mg/dL (0.2-1.3)
--- NOTE | 2023-08-16 19:34 | XR ---
EXAMINATION: XR chest 2V: 08/16/2023 7:29 PM CLINICAL INDICATION: pain TECHNIQUE: AP and lateral views COMPARISON: 05/30/2023 FINDINGS: The lungs are clear. The pleural spaces are negative. The cardiac silhouette is not enlarged. The remainder of the mediastinal silhouette is unremarkable. The skeletal structures and soft tissues are negative for acute findings. IMPRESSION: No acute radiographic process.
--- NOTE | 2023-08-16 19:37 | XR ---
PROCEDURE: XR thoracic spine complete - 3V DATE AND TIME: 08/16/2023 7:29 PM CLINICAL INDICATION: PHH; pain TECHNIQUE: Department protocol COMPARISON: None FINDINGS: There is no fracture or malalignment. The soft tissues are unremarkable. IMPRESSION: NO ACUTE PROCESS.
[2023-08-16] MEDS ORDERED: MORPHINE SULFATE 4 MG/ML SYRINGE IVP STA (20:24)
[2023-08-16 21:17] VITALS: BP 148/72; PULSE 86; RESP 16; TEMP 97.9
== END 2023-08-16 21:03 | disposition home or self-care (01) ==
LOC: EC 16:40
DX: M54.9 Dorsalgia, unspecified (principal); J44.9 Chronic obstructive pulmonary disease, unspecified; E11.9 Type 2 diabetes mellitus without complications; I10 Essential (primary) hypertension; F32.A Depression, unspecified; F17.200 Nicotine dependence, unspecified, uncomplicated; Z79.84 Long term (current) use of oral hypoglycemic drugs; Z79.899 Other long term (current) drug therapy; Z79.51 Long term (current) use of inhaled steroids
CPT/HCPCS: 36415; 93005; 80053; 84484; 85025; 85610; 85730; 72072; 71046; 99284; 96374; 96375; J2270; J1885

== ENCOUNTER 2023-11-13 11:29 | Emergency (ER) | payer MEDICARE, OTHER ==
[2023-11-13] MEDS: KETOROLAC 15 MG/ML 1 ML VIAL IM STA (12:25)
[2023-11-13] MEDS: MORPHINE SULFATE 4 MG/ML SYRINGE IM STA (12:26)
--- NOTE | 2023-11-13 12:26 | ED ---
General Adult HPI - General Chief complaint: Extremity Problem,Nontraumatic Stated complaint: Pain in both Legs Time Seen by Provider: 11/13/23 12:00 Source: patient, EMS, RN notes reviewed, old records reviewed Mode of arrival: EMS Limitations: no limitations - History of Present Illness Initial comments: Patient is a 68-year-old female present to the emergency department with concern for chronic pain. Patient mostly complains of pain in her right lower leg at the area of previous amputation. Patient did have amputation in 2016. Patient has chronic pain here secondary to phantom limb pain. Patient's has seen her doctor and vascular surgeon for this. Patient is on gabapentin and [place]. Patient also has left leg pain which is also chronic. No new change. Patient also has headache. Patient also gets occasional headaches similar to this. Headache was not sudden onset or worst ever. No fevers. No weakness. All symptoms are similar to previous symptoms patient has had. - Related Data Home Medications Medication Instructions Recorded Confirmed Oxybutynin Chloride [oxyBUTYnin 10 mg PO DAILY 08/17/20 07/07/23 chloride ER] Fluticasone Nasal [place] [Flonase 1 spr EA NOSTRIL HS 09/17/21 07/07/23 Nasal [place]] Albuterol Inhaler [Ventolin Hfa 2 puff INHALATION RT-QID PRN 12/14/21 07/07/23 Inhaler] Levothyroxine Sodium 88 mcg PO DAILY 12/14/21 07/07/23 Atorvastatin [Lipitor] 40 mg PO DAILY 06/16/22 07/07/23 Cholecalciferol (Vitamin D3) 125 mcg PO DAILY 06/16/22 07/07/23 [Vitamin D3 (125 MCG = 5,000 IU)] Fluticasone Propion/Salmeterol 1 puff INHALATION RT-BID 06/16/22 07/07/23 [Advair 500-50 Diskus] Triamcinolone 0.1% Cream [Kenalog 1 applic TOPICAL BID PRN 06/16/22 07/07/23 0.1% Cream] Famotidine [Pepcid] 20 mg PO BID 01/19/23 07/07/23 Levocetirizine Dihydrochloride 5 mg PO BID 01/19/23 07/07/23 [Xyzal] FLUoxetine HCL 40 mg PO DAILY 03/31/23 07/07/23 Gabapentin 800 mg PO TID 03/31/23 07/07/23 Ibuprofen [Motrin] 600 mg PO Q8HR PRN 03/31/23 07/07/23 LORazepam [Ativan] 1 mg PO Q6H PRN 03/31/23 07/07/23 QUEtiapine [SEROquel] 200 mg PO HS 03/31/23 07/07/23 metFORMIN HCL 1,000 mg PO BID 03/31/23 07/07/23 Montelukast [Singulair] 10 mg PO HS 05/07/23 07/07/23 Primidone [Mysoline] 25 mg PO BID 05/07/23 07/07/23 HYDROcodone/APAP 10-325MG [[place] 1 tab PO Q6H PRN 06/17/23 07/07/23 10-325] Mupirocin 2% Oint [Bactroban 2% 1 applic TOPICAL BID 06/17/23 07/07/23 Oint] Previous Rx's Medication Instructions Recorded Aspirin 325 mg PO DAILY #30 tab 06/18/22 Acetaminophen Tab [Tylenol] 1,000 mg PO Q6HR PRN #30 tablet 06/01/23 Insulin Glargine,Hum.rec.anlog 30 units SQ BID #3 each 06/01/23 [Lantus Solostar Pen] Sulfamethox-Tmp 800-160Mg [Bactrim 1 each PO Q12HR #14 tab 08/04/23 Ds] Levofloxacin [Levaquin] 750 mg PO DAILY 10 Days #1 tab 08/11/23 metroNIDAZOLE 500 mg PO Q8H #30 tablet 08/11/23 Allergies Allergy/AdvReac Type Severity Reaction Status Date / Time No Known Allergies Allergy Verified 08/16/23 17:11 Review of Systems ROS Statement: Those systems with pertinent positive or pertinent negative responses have been documented in the HPI. ROS Other: All systems not noted in ROS Statement are negative. Constitutional: Denies: fever Eyes: Denies: eye pain ENT: Denies: ear pain Respiratory: Denies: cough, dyspnea Cardiovascular: Denies: chest pain Endocrine: Denies: fatigue Gastrointestinal: Denies: abdominal pain Musculoskeletal: Reports: as per HPI Neurological: Reports: as per HPI Past Medical History Past Medical History: COPD, Diabetes Mellitus, Hypertension Additional Past Medical History / Comment(s): Depression History of Any Multi-Drug Resistant Organisms: VRE Date of last positivie culture/infection: 08/11/23 MDRO Source:: Abdomen Past Surgical History: Back Surgery, Bowel Resection, Hysterectomy, Orthopedic Surgery Additional Past Surgical History / Comment(s): rt below knee amp, Left 1st toe amputation, Ileostomy January 2023, Past Anesthesia/Blood Transfusion Reactions: No Reported Reaction Past Psychological History: Depression Smoking Status: Current every day smoker Past Alcohol Use History: None Reported Past Drug Use History: None Reported - Past Family History Father Family Medical History: Coronary Artery Disease (CAD) Mother Family Medical History: Diabetes Mellitus General Exam Limitations: no limitations General appearance: alert, in no apparent distress Head exam: Present: atraumatic Eye exam: Present: normal appearance, PERRL, EOMI Neck exam: Present: normal inspection Respiratory exam: Present: normal lung sounds bilaterally Cardiovascular Exam: Present: regular rate, normal rhythm Expanded Peripheral pulses: 2+: Posterior Tibialis (L), Dorsalis Pedis (L) GI/Abdominal exam: Present: soft. Absent: tenderness Extremities exam: Present: other (Right lower leg amputation. Left lower leg without warmth or color change or swelling or calf tenderness nor tenderness on exam. Distally the extremity is neurovascular intact). Absent: calf tenderness Neurological exam: Present: alert, CN II-XII intact. Absent: motor sensory deficit Expanded Neurological exam: Present: protecting the airway Cranial nerves: EOM's Intact: Normal Motor strength exam: RUE: 5, LUE: 5, RLE: 5, LLE: 5 Eye Response: (4) open spontaneously Motor Response: (6) obeys commands Verbal Response: (5) oriented Psychiatric exam: Present: normal affect, normal mood Skin exam: Present: normal color Course Vital Signs 11/13/23 11:30 Temperature 98.5 F Pulse Rate 95 Respiratory 18 Rate Blood Pressure 175/82 O2 Sat by Pulse 98 Oximetry Medical Decision Making - Medical Decision Making Was pt. sent in by a medical professional or institution (, PA, ANIMAL PATHOLOGY TEACHER, urgent care, hospital, or retirement...) When possible be specific @ -No Did you speak to anyone other than the patient for history (EMS, parent, family, police, friend...)? What history was obtained from this source @ -Patient does have a male federal district clerk present who agrees symptoms are chronic. Did you review nursing and triage notes (agree or disagree)? Why? @ -I reviewed and agree with nursing and triage notes Were old charts reviewed (outside hosp., previous admission, EMS record, old EKG, old radiological studies, urgent care reports/EKG's, retirement records)? Report findings @ -Previous visits reviewed Differential Diagnosis (chest pain, altered mental status, abdominal pain women, abdominal pain men, vaginal bleeding, weakness, fever, dyspnea, syncope, headache, dizziness, GI bleed, back pain, seizure, CVA, palpatations, mental health, musculoskeletal)? @ -Differential Musculoskeletal Muscular strain, contusion, ligament sprain, fracture, arthritis, septic arthritis, bursitis, cellulitis, muscle spasm, nerve compression, DVT, arterial occlusion, herpes zoster, electrolyte abnormality, tumor.... This is not meant to be in all inclusive list EKG interpreted by me (3pts min.). @ -As above X-rays interpreted by me (1pt min.). @ -None done CT interpreted by me (1pt min.). @ -None done U/S interpreted by me (1pt. min.). @ -None done What testing was considered but not performed or refused? (CT, X-rays, U/S, labs)? Why? @ -All patient's symptoms are chronic What meds were considered but not given or refused? Why? @ -None Did you discuss the management of the patient with other professionals (professionals i.e. , PA, ANIMAL PATHOLOGY TEACHER, lab, RT, psych nurse, social media executive, proposal lead writer, teacher, deputy probation officer, special education case manager)? Give summary @ -No Was smoking cessation discussed for >3mins.? @ -No Was critical care preformed (if so, how long)? @ -No Were there social determinants of health that impacted care today? How? (Homelessness, low income, unemployed, alcoholism, drug addiction, transportation, low edu. Level, literacy, decrease access to med. care, half-way, rehab)? @ -No Was there de-escalation of care discussed even if they declined (Discuss DNR or withdrawal of care, Hospice)? DNR status @ -No What co-morbidities impacted this encounter? (DM, HTN, Smoking, COPD, CAD, Cancer, CVA, ARF, Chemo, Hep., AIDS, mental health diagnosis, sleep apnea, morbid obesity)? @ -None Was patient admitted / discharged? Hospital course, mention meds given and route, prescriptions, significant lab abnormalities, going to OR and other pertinent info. @ -Patient presents for pain control for chronic pain. Patient is advised to again follow-up with her doctor and vascular surgeon as well as consider pain clinic. Patient will be given IM medications prior to discharge. Undiagnosed new problem with uncertain prognosis? @ -No Drug Therapy requiring intensive monitoring for toxicity (Heparin, Nitro, Insulin, Cardizem)? @ -No Were any procedures done? @ -No Diagnosis/symptom? @ -Phantom limb pain, chronic pain Acute on Chronic, Chronic? @ -Acute on chronic, chronic Uncomplicated (without systemic symptoms) or Complicated (systemic symptoms)? @ -Default Side effects of treatment? @ -No Exacerbation, Progression, or Severe Exacerbation? @ -No Poses a threat to life or bodily function? How? (Chest pain, [place], [place], pneumonia, PE, COPD, DKA, ARF, appy, cholecystitis, CVA, Diverticulitis, Homicidal, Suicidal, threat to staff... and all critical care pts) @ -No Disposition Clinical Impression: History of below-knee amputation of right lower extremity, Phantom limb pain Disposition: HOME SELF-CARE Condition: Stable Instructions (If sedation given, give patient instructions): Acute Headache (ED), Chronic Pain (ED), Pain Management (ED) Additional Instructions: Please do follow-up with your primary care physician in the next day or 2 for recheck. Consider follow-up with pain management. Also consider follow-up with your vascular doctor. Return for fever, weakness, rash, worsening or changing symptoms or any other concerns. Is patient prescribed a controlled substance at d/c from ED?: No Referrals: Yomi Kennedy MD [Primary Care Provider] - 1-2 days Time of Disposition: 12:23
[2023-11-13 13:31] VITALS: BP 152/79; PULSE 90; RESP 22; TEMP 99.4
== END 2023-11-13 13:14 | disposition home or self-care (01) ==
LOC: EC 11:29
DX: G54.6 Phantom limb syndrome with pain (principal); G89.29 Other chronic pain; E11.9 Type 2 diabetes mellitus without complications; I10 Essential (primary) hypertension; J44.9 Chronic obstructive pulmonary disease, unspecified; F17.200 Nicotine dependence, unspecified, uncomplicated; F32.A Depression, unspecified; Z79.84 Long term (current) use of oral hypoglycemic drugs; Z79.899 Other long term (current) drug therapy; Z79.51 Long term (current) use of inhaled steroids; Z89.511 Acquired absence of right leg below knee
CPT/HCPCS: 99284; 96372 ×2; J2270; J1885

== ENCOUNTER 2023-11-13 21:40 | Emergency (ER) | payer MEDICARE, OTHER ==
[2023-11-13 22:27] VITALS: RESP 18
--- NOTE | 2023-11-13 23:41 | ED ---
General Adult HPI - General Chief complaint: Extremity Problem,Nontraumatic Stated complaint: leg pain Time Seen by Provider: 11/13/23 23:16 Source: patient, RN notes reviewed, old records reviewed Mode of arrival: wheelchair Limitations: no limitations - History of Present Illness Initial comments: 68-year-old female with history of below the knee amputation on the right presenting with pain in her right lower extremity. Patient does have history of chronic leg pain. Patient takes [place] and gabapentin for this pain. There is been no fever. She was seen earlier in the emergency department, given intramuscular medication and had only transient relief. There is been no fever. No chest pain. No dyspnea. No noted erythema or drainage in the skin. - Related Data Home Medications Medication Instructions Recorded Confirmed Oxybutynin Chloride [oxyBUTYnin 10 mg PO DAILY 08/17/20 07/07/23 chloride ER] Fluticasone Nasal [place] [Flonase 1 spr EA NOSTRIL HS 09/17/21 07/07/23 Nasal [place]] Albuterol Inhaler [Ventolin Hfa 2 puff INHALATION RT-QID PRN 12/14/21 07/07/23 Inhaler] Levothyroxine Sodium 88 mcg PO DAILY 12/14/21 07/07/23 Atorvastatin [Lipitor] 40 mg PO DAILY 06/16/22 07/07/23 Cholecalciferol (Vitamin D3) 125 mcg PO DAILY 06/16/22 07/07/23 [Vitamin D3 (125 MCG = 5,000 IU)] Fluticasone Propion/Salmeterol 1 puff INHALATION RT-BID 06/16/22 07/07/23 [Advair 500-50 Diskus] Triamcinolone 0.1% Cream [Kenalog 1 applic TOPICAL BID PRN 06/16/22 07/07/23 0.1% Cream] Famotidine [Pepcid] 20 mg PO BID 01/19/23 07/07/23 Levocetirizine Dihydrochloride 5 mg PO BID 01/19/23 07/07/23 [Xyzal] FLUoxetine HCL 40 mg PO DAILY 03/31/23 07/07/23 Gabapentin 800 mg PO TID 03/31/23 07/07/23 Ibuprofen [Motrin] 600 mg PO Q8HR PRN 03/31/23 07/07/23 LORazepam [Ativan] 1 mg PO Q6H PRN 03/31/23 07/07/23 QUEtiapine [SEROquel] 200 mg PO HS 03/31/23 07/07/23 metFORMIN HCL 1,000 mg PO BID 03/31/23 07/07/23 Montelukast [Singulair] 10 mg PO HS 05/07/23 07/07/23 Primidone [Mysoline] 25 mg PO BID 05/07/23 07/07/23 HYDROcodone/APAP 10-325MG [[place] 1 tab PO Q6H PRN 06/17/23 07/07/23 10-325] Mupirocin 2% Oint [Bactroban 2% 1 applic TOPICAL BID 06/17/23 07/07/23 Oint] Previous Rx's Medication Instructions Recorded Aspirin 325 mg PO DAILY #30 tab 06/18/22 Acetaminophen Tab [Tylenol] 1,000 mg PO Q6HR PRN #30 tablet 06/01/23 Insulin Glargine,Hum.rec.anlog 30 units SQ BID #3 each 06/01/23 [Lantus Solostar Pen] Sulfamethox-Tmp 800-160Mg [Bactrim 1 each PO Q12HR #14 tab 08/04/23 Ds] Levofloxacin [Levaquin] 750 mg PO DAILY 10 Days #1 tab 08/11/23 metroNIDAZOLE 500 mg PO Q8H #30 tablet 08/11/23 Allergies Allergy/AdvReac Type Severity Reaction Status Date / Time No Known Allergies Allergy Verified 11/13/23 22:14 Review of Systems ROS Statement: Those systems with pertinent positive or pertinent negative responses have been documented in the HPI. ROS Other: All systems not noted in ROS Statement are negative. Past Medical History Past Medical History: COPD, Diabetes Mellitus, Hypertension Additional Past Medical History / Comment(s): Depression History of Any Multi-Drug Resistant Organisms: VRE Date of last positivie culture/infection: 08/11/23 MDRO Source:: Abdomen Past Surgical History: Back Surgery, Bowel Resection, Hysterectomy, Orthopedic Surgery Additional Past Surgical History / Comment(s): rt below knee amp, Left 1st toe amputation, Ileostomy January 2023, Past Anesthesia/Blood Transfusion Reactions: No Reported Reaction Past Psychological History: Depression Smoking Status: Current every day smoker Past Alcohol Use History: None Reported Past Drug Use History: None Reported - Past Family History Father Family Medical History: Coronary Artery Disease (CAD) Mother Family Medical History: Diabetes Mellitus General Exam Limitations: no limitations General appearance: alert Head exam: Present: atraumatic, normocephalic Eye exam: Present: normal appearance, PERRL ENT exam: Present: normal exam Neck exam: Present: normal inspection. Absent: tenderness Respiratory exam: Present: normal lung sounds bilaterally. Absent: respiratory distress, wheezes Cardiovascular Exam: Present: regular rate, normal rhythm Extremities exam: Present: normal capillary refill, other (Bilateral extremities are warm, no signs of cellulitis, no swelling, no skin breakdown, no gross deformity). Absent: tenderness, joint swelling, calf tenderness Neurological exam: Present: alert, oriented X3, CN II-XII intact. Absent: motor sensory deficit Psychiatric exam: Present: normal affect, normal mood Skin exam: Present: warm, dry, intact Course Vital Signs 11/13/23 22:10 Temperature 97.3 F L Pulse Rate 86 Respiratory 18 Rate Blood Pressure 164/72 O2 Sat by Pulse 99 Oximetry Medical Decision Making - Medical Decision Making Was pt. sent in by a medical professional or institution (, PA, FUNERAL ASSISTANT, urgent care, hospital, or retirement...) When possible be specific @ -No Did you speak to anyone other than the patient for history (EMS, parent, family, police, friend...)? What history was obtained from this source @ -No Did you review nursing and triage notes (agree or disagree)? Why? @ -I reviewed and agree with nursing and triage notes Were old charts reviewed (outside hosp., previous admission, EMS record, old EKG, old radiological studies, urgent care reports/EKG's, retirement records)? Report findings @ -No old charts were reviewed Differential Diagnosis (chest pain, altered mental status, abdominal pain women, abdominal pain men, vaginal bleeding, weakness, fever, dyspnea, syncope, headache, dizziness, GI bleed, back pain, seizure, CVA, palpatations, mental health, musculoskeletal)? @ -Not applicable EKG interpreted by me (3pts min.). @ -As above X-rays interpreted by me (1pt min.). @ -X-ray of the postsurgical right lower extremity negative for osteomyelitis or acute findings, no soft tissue gas. CT interpreted by me (1pt min.). @ -None done U/S interpreted by me (1pt. min.). @ -None done What testing was considered but not performed or refused? (CT, X-rays, U/S, labs)? Why? @ -None What meds were considered but not given or refused? Why? @ -None Did you discuss the management of the patient with other professionals (professionals i.e. DrEduar, PA, FUNERAL ASSISTANT, lab, RT, psych nurse, social work msw, overlock hemmer, teacher, banking services officer, piano case maker)? Give summary @ -No Was smoking cessation discussed for >3mins.? @ -No Was critical care preformed (if so, how long)? @ -No Were there social determinants of health that impacted care today? How? (Homelessness, low income, unemployed, alcoholism, drug addiction, interiano sportation, low edu. Level, literacy, decrease access to med. care, retirement, rehab)? @ -No Was there de-escalation of care discussed even if they declined (Discuss DNR or withdrawal of care, Hospice)? DNR status @ -No What co-morbidities impacted this encounter? (DM, HTN, Smoking, COPD, CAD, Cancer, CVA, ARF, Chemo, Hep., AIDS, mental health diagnosis, sleep apnea, morbid obesity)? @ -[Diabetes, COPD Was patient admitted / discharged? Hospital course, mention meds given and route, prescriptions, significant lab abnormalities, going to OR and other pertinent info. @ -68-year-old female with chronic pain, no injury, concerned about possible infection. There is no external signs of infection, no erythema, no induration. There is a leukocytosis which is chronic for this patient. No fever. Blood sugar is elevated otherwise laboratory testing is unremarkable. Patient stable for discharge with close primary care follow-up. Undiagnosed new problem with uncertain prognosis? @ -[No Drug Therapy requiring intensive monitoring for toxicity (Heparin, Nitro, Insulin, Cardizem)? @ -No Were any procedures done? @ -No Diagnosis/symptom? @ -Chronic right lower extremity pain Acute, or Chronic, or Acute on Chronic? @ -[Chronic Uncomplicated (without systemic symptoms) or Complicated (systemic symptoms)? @ -Default Side effects of treatment? @ -No Exacerbation, Progression, or Severe Exacerbation? @ -No Poses a threat to life or bodily function? How? (Chest pain, [place], [place], pneumonia, PE, COPD, DKA, ARF, appy, cholecystitis, CVA, Diverticulitis, Homicidal, Suicidal, threat to staff... and all critical care pts) @ -No - Lab Data Result diagrams: 11/14/23 00:27 11/14/23 00:27 Lab Results 11/14/23 11/14/23 Range/Units 00:27 00:27 WBC 16.3 H (3.8-10.6) k/uL RBC 4.07 (3.80-5.40) m/uL Hgb 11.7 (11.4-16.0) gm/dL Hct 34.5 (34.0-46.0) % MCV 84.8 (80.0-100.0) fL MCH 28.8 (25.0-35.0) pg MCHC 33.9 (31.0-37.0) g/dL RDW 15.6 H (11.5-15.5) % Plt Count 191 (150-450) k/uL MPV 6.8 Neutrophils % 85 % Lymphocytes % 10 % Monocytes % 4 % Eosinophils % 0 % Basophils % 0 % Neutrophils # 13.8 H (1.3-7.7) k/uL Lymphocytes # 1.6 (1.0-4.8) k/uL Monocytes # 0.7 (0-1.0) k/uL Eosinophils # 0.0 (0-0.7) k/uL Basophils # 0.1 (0-0.2) k/uL Sodium 137 (137-145) mmol/L Potassium 4.4 (3.5-5.1) mmol/L Chloride 104 (98-107) mmol/L Carbon Dioxide 24 (22-30) mmol/L Anion Gap 9 mmol/L BUN 21 H (7-17) mg/dL Creatinine 0.84 (0.52-1.04) mg/dL Est GFR (CKD-EPI)AfAm 83 (>60 ml/min/1.73 sqM) Est GFR (CKD-EPI)NonAf 72 (>60 ml/min/1.73 sqM) Glucose 284 H (74-99) mg/dL Calcium 8.8 (8.4-10.2) mg/dL Total Bilirubin 0.7 (0.2-1.3) mg/dL AST 18 (14-36) U/L ALT 15 (4-34) U/L Alkaline Phosphatase 105 (38-126) U/L Total Protein 7.5 (6.3-8.2) g/dL Albumin 4.0 (3.5-5.0) g/dL Disposition Clinical Impression: Stump pain Disposition: HOME SELF-CARE Condition: Fair Instructions (If sedation given, give patient instructions): Pain Management (ED), Chronic Pain (ED) Is patient prescribed a controlled substance at d/c from ED?: No Referrals: Yomi Kennedy MD [Primary Care Provider] - 1-2 days Time of Disposition: 01:04
[2023-11-14 00:47] LABS: Basophils # (A) 0.1 k/uL (0-0.2); Basophils % (A) 0 %; Eosinophils % (A) 0 %; HCT 34.5 % (34.0-46.0); HGB 11.7 gm/dL (11.4-16.0); Lymphocytes # (A) 1.6 k/uL (1.0-4.8); Lymphocytes % (A) 10 %; MCH 28.8 pg (25.0-35.0); MCHC 33.9 g/dL (31.0-37.0); MCV 84.8 fL (80.0-100.0); Mean Platelet Volume 6.8; Monocytes # (A) 0.7 k/uL (0-1.0); Monocytes % (A) 4 %; Neutrophils # (A) 13.8 k/uL (1.3-7.7); Neutrophils % (A) 85 %; Platelet Count 191 k/uL (150-450); RBC 4.07 m/uL (3.80-5.40); RDW 15.6 % (11.5-15.5); WBC 16.3 k/uL (3.8-10.6)
--- NOTE | 2023-11-14 00:55 | XR ---
EXAM: XR Right Tibia and Fibula, 2 Views CLINICAL HISTORY: ITS.REASON XR Reason: pain TECHNIQUE: Frontal and lateral views of the right tibia and fibula. COMPARISON: No relevant prior studies available. FINDINGS: Bones/joints: Below knee amputation. No subcutaneous air. No radiographic evidence of osteomyelitis. Osseous demineralization. No acute fracture. No dislocation. Soft tissues: See above. IMPRESSION: Below knee amputation. No subcutaneous air. No radiographic evidence of osteomyelitis.
[2023-11-14 01:02] LABS: ALT 15 U/L (4-34); AST 18 U/L (14-36); African American GFR (CKD) 83 (>60 ml/min/1.73 sqM); Alkaline Phosphatase 105 U/L (38-126); Anion Gap 9 mmol/L; Blood Urea Nitrogen 21 mg/dL (7-17); Calcium 8.8 mg/dL (8.4-10.2); Carbon Dioxide 24 mmol/L (22-30); Chloride 104 mmol/L (98-107); Glucose 284 mg/dL (74-99); Non-African American GFR(CKD) 72 (>60 ml/min/1.73 sqM); Potassium 4.4 mmol/L (3.5-5.1); Sodium 137 mmol/L (137-145); Total Bilirubin 0.7 mg/dL (0.2-1.3); Total Protein 7.5 g/dL (6.3-8.2)
[2023-11-14 01:46] VITALS: BP 156/76; PULSE 84; TEMP 97.9
== END 2023-11-14 01:20 | disposition home or self-care (01) ==
LOC: EC 21:40
DX: G54.6 Phantom limb syndrome with pain (principal); E11.9 Type 2 diabetes mellitus without complications; I10 Essential (primary) hypertension; J44.9 Chronic obstructive pulmonary disease, unspecified; F32.A Depression, unspecified; F17.200 Nicotine dependence, unspecified, uncomplicated; Z79.899 Other long term (current) drug therapy; Z79.84 Long term (current) use of oral hypoglycemic drugs
CPT/HCPCS: 36415; 80053; 85025; 99283